=== PATIENT | female | born 1940 | race African-American/Black ===

== ENCOUNTER 2017-06-21 17:42 | Inpatient (IN) | payer MEDICAID, MEDICARE ==
--- NOTE | 2017-06-21 18:04 | ED Physician Chart ---
ED Chief Complaint/HPI - Patient Information Date Seen:: 06/21/17 Time Seen:: 17:50 Chief Complaint:: Leg pain History of Present Illness:: pt reported developed LE pain; L>R x 2 dayas; no report of trauma, ALOC, LOC, AMS, H/aS, neck pain, C/P, SOB, Abd. Pain, A/N/V/D/C, fever, chills, or urinary s/s Allergies:: Allergies Allergy/AdvReac Type Severity Reaction Status Date / Time No Known Allergies Allergy Verified 06/21/17 17:43 Historian:: Patient, EMS Review:: Nurse's Note Reviewed, Old Chart Reviewed, EMS run form Reviewed <Jareth Tee - Last Filed: 06/21/17 17:58> - Patient Information Allergies:: Allergies Allergy/AdvReac Type Severity Reaction Status Date / Time No Known Allergies Allergy Verified 06/21/17 17:43 Vitals:: Vital Signs - 8 hr 06/21/17 17:53 Temp 99.7 F HR 92 RR 16 BP 163/88 O2 Sat % 97 <Gunnar Barrientos - Last Filed: 06/21/17 19:40> ED Review of Systems - Review of Systems General/Constitutional: No fever, No chills, No weight loss, No weakness, No diaphoresis, No edema, No loss of appetite Skin: No skin lesions, No rash, No bruising Head: No headache, No light-headedness Eyes: No loss of vision, No pain, No diplopia ENT: No earache, No nasal drainage, No sore throat, No tinnitus Neck: No neck pain, No swelling, No thyromegaly, No stiffness, No mass noted Cardio Vascular: No chest pain, No palpitations, No PND, No orthopnea, No edema Pulmonary: No SOB, No cough, No sputum, No wheezing GI: No nausea, No vomiting, No diarrhea, No pain, No melena, No hematochezia, No constipation, No hematemesis G/U: No dysuria, No frequency, No hematuria, No nacturia Data Processing Supervisor: No vaginal discharge, No abnormal vaginal bleed, No contraction Musculoskeletal: No bone or joint pain, No back pain, No muscle pain Endocrine: No polyuria, No polydipsia Psychiatric: Prior psych history, No depression, No anxiety, No suicidal ideation, No homicidal ideation, Auditory hallucination, No visual hallucination Hematopoietic: No bruising, No lymphadenopathy Allergic/Immuno: No urticaria, No angioedema Neurological: No syncope, No focal symptoms, No weakness, No paresthesia, No headache, No seizure, No dizziness, No confusion, No vertigo <Jareth Tee - Last Filed: 06/21/17 17:58> ED Past Medical History - Past Medical History Obtainable: Yes Past Medical History: DM, Renal stone, Other (Anemia) Family History: Diabetes Melitus, HTN Social History: Non Smoker, No Alcohol, No Drug Use, Single, Care Facility Surgical History: None Psychiatricy History: Schizophrenia Medication: Reviewed <EstellekatjauvaldoJareth - Last Filed: 06/21/17 17:58> Family Medical History - Family Member Mother History Unknown: Yes <IlianaGunnar - Last Filed: 06/21/17 19:40> ED Physical Exam - Physical Examination General/Constitutional: Awake, Well-developed, well-nourished, Alert, No distress, GCS 15, Non-toxic appearing, Ambulatory Head: Atraumatic Eyes: Lids, conjuctiva normal, PERRL, EOMI Skin: Nl inspection, No rash, No skin lesions, No ecchymosis, Well hydrated, No lymphadenopathy ENMT: External ears, nose nl, TM canals nl, Nasal exam nl, Lips, teeth, gums nl , Oropharynx nl, Tonsils nl Neck: Nontender, Full ROM w/o pain, No JVD, No nuchal rigidity, No bruit, No mass, No stridor Respiratory: Nl effort/Exclusion, Clear to Auscultation, No Wheeze/Rhonchi/Rales Cardio Vascular: RRR, No murmur, gallop, rubs, NL S1 S2, Carotid/Femoral/Distal pulses equal bilaterally GI: No tenderness/rebounding/guarding, No organomegaly, No hernia, Normal BS's, Nondistended, No mass/bruits, No McBurney tenderness : No CVA tenderness Extremities: No tenderness or effusion, Full ROM, normal strength in all extremities, No edema, Normal digits & nails Neuro/Psych: DTR's symmetric, Normal sensory exam, Normal motor strength, Judgement/insight normal, Mood normal, Normal gait, No focal deficits Other Neuro/Psych comments:: Disoriented and Confused Misc: Normal back, No paraspinal tenderness <Jareth Tee - Last Filed: 06/21/17 17:58> ED Labs/Radiology/EKG Results - Lab Results Results: Laboratory Tests 06/21/17 06/21/17 06/21/17 18:20 18:20 18:20 WBC 7.9 RBC 2.80 L Hgb 7.5 L* Hct 23.4 L MCV 83.6 MCH 26.7 L MCHC Differential 31.9 RDW 13.4 Plt Count 430 H MPV 7.1 Neutrophils % 59.2 Lymphocytes % 32.4 Monocytes % 5.8 Eosinophils % 2.0 Basophils % 0.6 PT 9.9 INR 0.95 Sodium 137 Potassium 3.5 Chloride 100 Carbon Dioxide 30.8 Anion Gap 9.7 BUN 24 Creatinine 1.3 H Est GFR ( Amer) TNP Est GFR (Non-Af Amer) TNP BUN/Creatinine Ratio 18.5 Glucose 186 H Calcium 8.7 Total Bilirubin 0.2 L AST 10 L ALT 6 L Alkaline Phosphatase 64 Creatine Kinase 39 Troponin I B-Natriuretic Peptide Total Protein 6.6 Albumin 2.6 L Globulin 4.0 Albumin/Globulin Ratio 0.7 L Triglycerides 104 Cholesterol 129 LDL Cholesterol Direct 65 L HDL Cholesterol 43 06/21/17 06/21/17 18:20 18:20 WBC RBC Hgb Hct MCV MCH MCHC Differential RDW Plt Count MPV Neutrophils % Lymphocytes % Monocytes % Eosinophils % Basophils % PT INR Sodium Potassium Chloride Carbon Dioxide Anion Gap BUN Creatinine Est GFR ( Amer) Est GFR (Non-Af Amer) BUN/Creatinine Ratio Glucose Calcium Total Bilirubin AST ALT Alkaline Phosphatase Creatine Kinase Troponin I 0.01 B-Natriuretic Peptide 122.0 H Total Protein Albumin Globulin Albumin/Globulin Ratio Triglycerides Cholesterol LDL Cholesterol Direct HDL Cholesterol <Gunnar Barrientos - Last Filed: 06/21/17 19:40> ED Septic Shock - . Is Septic Shock (SBP<90, OR Lactate>4 mmol\L) present?: No <Jareth Tee - Last Filed: 06/21/17 17:58> - <6hrs of presentation: Vital Signs: Vital Signs - 8 hr 06/21/17 17:53 Temp 99.7 F HR 92 RR 16 BP 163/88 O2 Sat % 97 <Gunnar Barrientos - Last Filed: 06/21/17 19:40> ED Reassessment (Disposition) - Reassessment Reassessment Condition:: Unchanged - Diagnosis Diagnosis:: Left lower extremity DVT Severe Anemia CHF Hypertension - Patient Disposition Discharge/Transfer:: Acute Care w/in this hosp Admitting Medical Physician:: Jose Tobias <Gunnar Barrientos - Last Filed: 06/21/17 19:40>
[2017-06-21 18:29] LABS: % BASOPHILS 0.6 % (0.0-2.0); % LYMPHOCYTES 32.4 % (20.0-50.0); % MONOCYTES 5.8 % (2.0-10.0); % NEUTROPHILS 59.2 % (40.0-80.0); EOSINOPHILE ABSOLUTE 0.2 Th/cmm (0.1-0.4); HEMATOCRIT 23.4 % (41.0-60); LYMPHOCYTE ABSOLUTE 2.6 Th/cmm (1.5-3.0); MEAN CELL VOLUME 83.6 fl (81-100); MEAN CORPUSCULAR HEMOGLOBIN 26.7 pg (27.0-31.0); MEAN CORPUSCULAR HGB CONC 31.9 pg (28.0-36.0); MEAN PLATELET VOLUME 7.1 fl; MONOCYTE ABSOLUTE 0.5 Th/cmm (0.3-1.0); NEUTROPHILE ABSOLUTE 4.6 Th/cmm (1.8-8.0); PLATELET COUNT 430 Th/cmm (150-400); RED CELL DISTRIBUTION WIDTH 13.4 % (11.5-20.0); WHITE BLOOD COUNT 7.9 Th/cmm (4.8-10.8)
[2017-06-21 18:40] LABS: INR 0.95 (0.5-1.4); PROTHROMBIN TIME (TEST) 9.9 SECONDS (9.5-11.5)
[2017-06-21 18:44] LABS: ALB/GLOB RATIO 0.7 (1.0-1.8); ALBUMIN 2.6 gm/dL (3.7-5.3); ALKALINE PHOSPHATASE 64 U/L (34-104); ANION GAP 9.7 (7.0-16.0); BILIRUBIN,TOTAL 0.2 mg/dL (0.3-1.0); BUN - UREA NITROGEN 24 mg/dL (7-25); CALCIUM SERUM 8.7 mg/dL (8.6-10.3); CARBON DIOXIDE 30.8 mEq/L (21.0-31.0); CHLORIDE 100 mEq/L (98-107); CHOLESTEROL 129 mg/dL (<200); CREATININE - SERUM 1.3 mg/dL (0.6-1.2); CREATININE KINASE 39 U/L (30-223); GLUCOSE 186 mg/dL (70-105); HDL -HIGH DENSITY LIPOPROTEIN 43 mg/dL (23-92); POTASSIUM SERUM 3.5 mEq/L (3.5-5.1); SGOT 10 U/L (13-39); SGPT/ALT 6 U/L (7-52); SODIUM SERUM 137 mEq/L (136-145); TOTAL PROTEIN,SERUM 6.6 gm/dL (6.0-8.3); TRIGLYCERIDES 104 mg/dL (<150)
[2017-06-21 18:52] LABS: HEMOGLOBIN 7.5 gm/dL (12-16)
[2017-06-21] MEDS ORDERED: Ipratropium Neb 0.5 mg/2.5 mL UD IH PRN (19:41)
[2017-06-21] MEDS ORDERED: Morphine Sulfate 2 mg/mL 1mL Syr IVP PRN (19:41)
[2017-06-21] MEDS ORDERED: Maalox 30 mL Cup PO PRN (19:41)
[2017-06-21] MEDS ORDERED: guaiFENesin 200 MG/10 ML UDC PO PRN (19:41)
[2017-06-21] MEDS ORDERED: Albuterol Nebulizer 2.5mg/3mL HHN ONE (20:13)
[2017-06-21] MEDS ORDERED: Ipratropium Neb 0.5 mg/2.5 mL UD HHN ONE (20:14)
[2017-06-21] MEDS ORDERED: [UNRECOGNIZED DRUG - OTHER] PO SCH (21:00)
[2017-06-21] MEDS ORDERED: NUTRITIONAL SUPPLEMENT PO SCH (21:00)
[2017-06-21] MEDS: Enoxaparin 30 mg/0.3 mL 0.3mL Syr SUBQ SCH ×2 (21:11→22:00)
[2017-06-21] MEDS: D5-0.9%NS 1,000 ML IV SCH (21:13)
[2017-06-22 05:35] LABS: % BASOPHILS 0.4 % (0.0-2.0); % EOSINOPHILS 1.3 % (0.0-5.0); % LYMPHOCYTES 38.1 % (20.0-50.0); % MONOCYTES 5.3 % (2.0-10.0); % NEUTROPHILS 54.9 % (40.0-80.0); EOSINOPHILE ABSOLUTE 0.1 Th/cmm (0.1-0.4); LYMPHOCYTE ABSOLUTE 2.8 Th/cmm (1.5-3.0); MEAN CELL VOLUME 82.9 fl (81-100); MEAN CORPUSCULAR HEMOGLOBIN 26.6 pg (27.0-31.0); MEAN CORPUSCULAR HGB CONC 32.1 pg (28.0-36.0); MEAN PLATELET VOLUME 6.7 fl; MONOCYTE ABSOLUTE 0.4 Th/cmm (0.3-1.0); PLATELET COUNT 416 Th/cmm (150-400); RED BLOOD COUNT 2.66 Mil/cmm (3.80-5.20); RED CELL DISTRIBUTION WIDTH 13.5 % (11.5-20.0); WHITE BLOOD COUNT 7.3 Th/cmm (4.8-10.8)
[2017-06-22 05:41] LABS: HEMOGLOBIN 7.1 gm/dL (12-16)
--- NOTE | 2017-06-22 08:14 | Diagnostic Imaging Report ---
Chest x-ray single view History: Chest pain Comparison: None The heart size is normal. No focal pulmonary parenchymal processes. No hilar or mediastinal abnormalities. Ill-defined 2 cm density right apex might be an artifact. Clinical correlation and follow-up exam might be helpful. Impression: No acute abnormalities, COPD changes bilaterally.
--- NOTE | 2017-06-22 08:25 | Diagnostic Imaging Report ---
Exam: Ultrasound examination lower extremities HISTORY: Leg pain. Findings: Real-time ultrasound examination of the deep venous circulation lower extremities bilaterally was performed in multiple planes utilizing color Doppler technique. The study demonstrates normal compressibility and augmentation of deep venous system of right lower extremity. The left lower extremity demonstrates deep venous thrombosis from the proximal left superficial femoral vein through the popliteal vein. Multiple lymph nodes are noted in the groin area bilaterally. IMPRESSION: 1. Normal examination right lower extremity, no evidence of deep thrombosis 2. Diffuse thrombosis of left lower extremity extending from the left superficial femoral vein into the left popliteal vein with no visualization and compressibility of the posterior tibial vein. 3. Patient has had previous history of the deep venous thrombosis left lower extremity. 4. Bilateral inguinal lymph nodes.
[2017-06-22] MEDS ORDERED: POTASSIUM CHLORIDE PO SCH (09:00)
[2017-06-22] MEDS ORDERED: PROSTAT SUGAR FREE PO SCH (09:00)
[2017-06-22] MEDS: Potassium Chloride 20 mEq ER Tab PO SCH (10:11)
--- NOTE | 2017-06-22 12:34 | Consultation ---
DATE OF CONSULTATION: 06/22/2017 HEMATOLOGY-ONCOLOGY CONSULTATION REFERRED BY: Jose Tobias DO REASON FOR CONSULTATION: Deep vein thrombosis and anemia. HISTORY OF PRESENT ILLNESS: The patient is a 76-year-old female, who is a resident in a nursing facility. She was transferred for evaluation because of anemia and a new finding of venous thrombosis. PAST MEDICAL HISTORY: Chronic kidney disease, malnutrition, anemia, schizophrenia, and history of thrombosis in the lower extremities. MEDICATIONS PRIOR TO ADMISSION: Haldol, Norvasc, Remeron, clonidine, Naprosyn. FAMILY HISTORY: Noncontributory. SOCIAL HISTORY: [facility] resident. PHYSICAL EXAMINATION: GENERAL: The patient is awake, noncommunicative. VITAL SIGNS: Afebrile, blood pressure 160/80. HEENT: Atraumatic. No bleeding from any site. NECK: No lymphadenopathy. CHEST: Equal air entry. ABDOMEN: Soft. EXTREMITIES: No edema. LABORATORY DATA: PT and PTT normal. D-dimer elevated. Hemoglobin 7.1, platelets 416, white count 7.3, MCV 82. Creatinine 1.3. Liver functions normal. ASSESSMENT: Venous duplex confirmed the presence of the thrombosis in the left superficial femoral vein and popliteal vein. The patient will be continued on heparin infusion because of the chronic kidney disease and workup for anemia is underway. Stool occult blood, iron studies, B12, and folate level were ordered. The patient will also be seen by GI for endoscopy. The patient was on nonsteroidal prior to admission and that will increase risk for bleeding; however, her medications prior to admission did not include any anticoagulation. Thank you, Dr. Tobias for the opportunity to participate in the care of this interesting case. JOB# [id number]
[2017-06-22] MEDS: Heparin 25,000 Units In D5W 25,000 UNITS/250 ML BAG IV PRN ×2 (12:38→15:12)
[2017-06-22] MEDS: D5-0.9%NS 1,000 ML IV SCH (12:52)
--- NOTE | 2017-06-22 13:24 | Internal Medicine Prog Note ---
Internal Medicine Subjective - Subjective Service Date: 06/22/17 ([facility] [id number]) Internal Medicine Objective - Results Result Diagrams: 06/22/17 05:20 06/21/17 18:20 Recent Labs: Laboratory Last Values WBC 7.3 Th/cmm (4.8-10.8) 06/22/17 05:20 RBC 2.66 Mil/cmm (3.80-5.20) L 06/22/17 05:20 Hgb 7.1 gm/dL (12-16) L* 06/22/17 05:20 Hct 22.0 % (41.0-60) L 06/22/17 05:20 MCV 82.9 fl (81-100) 06/22/17 05:20 MCH 26.6 pg (27.0-31.0) L 06/22/17 05:20 MCHC Differential 32.1 pg (28.0-36.0) 06/22/17 05:20 RDW 13.5 % (11.5-20.0) 06/22/17 05:20 Plt Count 416 Th/cmm (150-400) H 06/22/17 05:20 MPV 6.7 fl 06/22/17 05:20 Neutrophils % 54.9 % (40.0-80.0) 06/22/17 05:20 Lymphocytes % 38.1 % (20.0-50.0) 06/22/17 05:20 Monocytes % 5.3 % (2.0-10.0) 06/22/17 05:20 Eosinophils % 1.3 % (0.0-5.0) 06/22/17 05:20 Basophils % 0.4 % (0.0-2.0) 06/22/17 05:20 PT 9.9 SECONDS (9.5-11.5) 06/21/17 18:20 INR 0.95 (0.5-1.4) 06/21/17 18:20 D-Dimer 3600 ng/mL (100-400) H 06/21/17 18:20 Sodium 137 mEq/L (136-145) 06/21/17 18:20 Potassium 3.5 mEq/L (3.5-5.1) 06/21/17 18:20 Chloride 100 mEq/L (98-107) 06/21/17 18:20 Carbon Dioxide 30.8 mEq/L (21.0-31.0) 06/21/17 18:20 Anion Gap 9.7 (7.0-16.0) 06/21/17 18:20 BUN 24 mg/dL (7-25) 06/21/17 18:20 Creatinine 1.3 mg/dL (0.6-1.2) H 06/21/17 18:20 Est GFR ( Amer) TNP 06/21/17 18:20 Est GFR (Non-Af Amer) TNP 06/21/17 18:20 BUN/Creatinine Ratio 18.5 06/21/17 18:20 Glucose 186 mg/dL (70-105) H 06/21/17 18:20 Calcium 8.7 mg/dL (8.6-10.3) 06/21/17 18:20 Total Bilirubin 0.2 mg/dL (0.3-1.0) L 06/21/17 18:20 AST 10 U/L (13-39) L 06/21/17 18:20 ALT 6 U/L (7-52) L 06/21/17 18:20 Alkaline Phosphatase 64 U/L (34-104) 06/21/17 18:20 Ammonia 36 umol/L (16-53) 06/22/17 05:20 Creatine Kinase 39 U/L (30-223) 06/21/17 18:20 Troponin I 0.01 ng/mL (0.01-0.05) 06/21/17 18:20 B-Natriuretic Peptide 122.0 pg/mL (5.0-100.0) H 06/21/17 18:20 Total Protein 6.6 gm/dL (6.0-8.3) 06/21/17 18:20 Albumin 2.6 gm/dL (3.7-5.3) L 06/21/17 18:20 Globulin 4.0 gm/dL 06/21/17 18:20 Albumin/Globulin Ratio 0.7 (1.0-1.8) L 06/21/17 18:20 Triglycerides 104 mg/dL (<150) 06/21/17 18:20 Cholesterol 129 mg/dL (<200) 06/21/17 18:20 LDL Cholesterol Direct 65 mg/dL (75-193) L 06/21/17 18:20 HDL Cholesterol 43 mg/dL (23-92) 06/21/17 18:20 - Physical Exam Vitals and I&O: Vital Signs Temp 97.0 F 06/22/17 11:55 Pulse 78 06/22/17 11:55 Resp 18 06/22/17 11:55 BP 165/78 06/22/17 11:55 Pulse Ox 99 06/22/17 11:55 Intake & Output 06/21/17 06/22/17 06/22/17 18:59 06:59 18:59 Intake Total 120 1000 Balance 120 1000 Weight (lbs) 86 lb Intake: Intake, IV Amount 1000 D5-0.9%Ns 1,000 ml @ 80 1000 mls/hr IV .[id number] [facility] Rx #:[id number] Oral 120 Other: # Voids 2 # Bowel Movements 0 Stool Characteristics Soft Formed Brown Active Medications: Current Medications Acetaminophen (Tylenol) 650 mg PO Q4H PRN PRN Reason: Pain Or Fever above 101 Stop: 08/20/17 19:40 Al Hydrox/Mg Hydrox/Simethicone (Maalox) 30 ml PO Q6H PRN PRN Reason: Dyspepsia Stop: 08/20/17 19:40 Albuterol Sulfate (Albuterol 2.5mg/3ml Neb Ud) 2.5 mg HHN Q2HRT PRN PRN Reason: Shortness of Breath or Wheeze Stop: 08/20/17 19:40 Amlodipine Besylate (Norvasc) 5 mg PO DAILY [facility] Stop: 08/21/17 08:59 Last Admin: 06/22/17 10:10 Dose: 5 mg Bisacodyl (Dulcolax 5 Mg Ec Tab) 10 mg PO X1 ONE Stop: 06/22/17 16:01 Guaifenesin (Robitussin) 200 mg PO Q4HR PRN PRN Reason: Cough or Congestion Stop: 08/20/17 19:40 Haloperidol Decanoate (Haldol Dec) 25 mg IM QMONTH [facility] Stop: 09/17/17 08:59 Dextrose/Sodium Chloride (D5-0.9%Ns) 1,000 mls @ 80 mls/hr IV .[id number] [facility] Stop: 08/20/17 19:44 Last Admin: 06/22/17 12:52 Dose: 80 mls/hr Heparin Sodium/Dextrose (Heparin Drip) 25,000 units in 250 mls @ 0 mls/hr IV TITR PRN; Protocol; Titrate PRN Reason: PROTOCOL Stop: 08/21/17 04:00 Last Admin: 06/22/17 12:38 Dose: 5 mls/hr Ipratropium [place] (Atrovent Neb 0.5mg/2.5ml) 0.5 mg IH Q2HRT PRN PRN Reason: Shortness of Breath or Wheeze Stop: 08/20/17 19:40 Mirtazapine (Remeron) 15 mg PO HS ED PRN Reason: Protocol Stop: 08/20/17 20:59 Last Admin: 06/21/17 21:59 Dose: 15 mg Miscellaneous (Heparin Drip Per Pharmacy) 1 ea MC PRN ED PRN Reason: Protocol Stop: 08/21/17 08:44 Morphine Sulfate (Morphine) 2 mg IVP Q4H PRN PRN Reason: Pain (Severe) Stop: 08/20/17 19:40 Naproxen (Naprosyn) 500 mg PO Q6H PRN PRN Reason: Pain (Mild) Stop: 08/20/17 19:39 Nitroglycerin (Nitrostat) 0.4 mg SL Q5MIN PRN PRN Reason: Chest Pain Stop: 08/20/17 19:40 Ondansetron HCl (Zofran) 4 mg IV Q8H PRN PRN Reason: Nausea / Vomiting Stop: 08/20/17 19:40 Potassium Chloride (Klor-Con) 20 meq PO DAILY [facility] Stop: 08/21/17 08:59 Last Admin: 06/22/17 10:11 Dose: 20 meq
--- NOTE | 2017-06-22 13:50 | History & Physical ---
ADMIT DATE: 06/22/2017 This is a History and Physical covering for Dr. Jose Tobias. CHIEF COMPLAINT: Leg pain. HISTORY OF PRESENT ILLNESS: This is a 76-year-old -[place] female who is well known to me. The patient is a fdc resident of [facility]. Three days ago, the patient's bilateral lower extremity was noted by nursing staff to be tender and redness. The patient also complained of bilateral calf pain. For this reason, a stat bilateral lower extremity ultrasound was ordered. The patient's ultrasound came back positive for obstructing DVT yesterday. For this reason, the patient is now admitted here to the Med/Surg unit. PAST MEDICAL HISTORY: Type 2 diabetes, anemia, renal stones. PAST SURGICAL HISTORY: None. ALLERGIES: No drug allergies. SOCIAL HISTORY: The patient is a fdc resident, requiring 24-hour nursing care. MEDICATIONS: Please see medication reconciliation. REVIEW OF SYSTEMS: GENERAL: Denies any fevers, any chills. CARDIOVASCULAR: Denies chest pain. RESPIRATORY: Denies shortness of breath. GASTROINTESTINAL: Denies nausea, vomiting, or abdominal pain. GENITOURINARY: Denies increased frequency or dysuria. NEUROLOGIC: No headaches, seizures, or syncope. All other systems are reviewed and are negative. PHYSICAL EXAMINATION: GENERAL: This is an elderly female. Awake and alert with some confusion. No apparent distress. VITAL SIGNS: Temperature 97.0, heart rate 78, blood pressure 165/78, respiration 18, O2 99%. HEENT: Head; normocephalic, atraumatic. NECK: Supple. No mass. LUNGS: Clear bilaterally. HEART: Regular rate and rhythm. ABDOMEN: Soft, nontender. DIAGNOSTICS: The patient had a lower extremity ultrasound done here at the hospital and the impression is normal examination of right lower extremity, no evidence of DVT. Deep venous thrombosis on the left lower extremity extending from the left superficial femoral vein into the left popliteal vein with no visualization, possibility of the posterior tibial vein. The patient has a history of previous DVT on the left lower extremity, bilateral inguinal lymph nodes. LABORATORY DATA: WBC 7.3, H and H 7.1, 22.0, platelet of 416. D-dimer of 3600. Sodium 137, potassium 3.5, chloride 100, BUN 24, creatinine 1.3. BNP of 122. ASSESSMENT: Deep venous thrombosis, severe anemia, schizophrenia, type 2 diabetes, hypertension, psychosis, and hypokalemia. PLAN: The patient to be admitted to the Med/Surg unit. We will get a fax machine repairer on the case as well as GI. We will have the patient on heparin as per protocol. We will monitor the patient's H and H. We will continue to follow this patient. JOB# [id number]
[2017-06-22 16:32] LABS: % BASOPHILS 0.6 % (0.0-2.0); % EOSINOPHILS 1.9 % (0.0-5.0); % LYMPHOCYTES 33.5 % (20.0-50.0); % MONOCYTES 6.3 % (2.0-10.0); % NEUTROPHILS 57.7 % (40.0-80.0); EOSINOPHILE ABSOLUTE 0.1 Th/cmm (0.1-0.4); HEMATOCRIT 23.7 % (41.0-60); LYMPHOCYTE ABSOLUTE 2.3 Th/cmm (1.5-3.0); MEAN CELL VOLUME 83.7 fl (81-100); MEAN CORPUSCULAR HEMOGLOBIN 26.8 pg (27.0-31.0); MONOCYTE ABSOLUTE 0.4 Th/cmm (0.3-1.0); NEUTROPHILE ABSOLUTE 4.2 Th/cmm (1.8-8.0); PLATELET COUNT 416 Th/cmm (150-400); RED BLOOD COUNT 2.83 Mil/cmm (3.80-5.20); RED CELL DISTRIBUTION WIDTH 13.5 % (11.5-20.0)
[2017-06-22 17:10] LABS: HEMOGLOBIN 7.6 gm/dL (12-16)
[2017-06-22] MEDS: INSULIN ASPART, RECOMBINANT 100 UNITS/ML SUBQ SCH ×2 (18:06→21:23)
[2017-06-22 21:22] LABS: A1C % 11.7 % (4.0-6.0)
--- NOTE | 2017-06-23 02:23 | Consultation ---
DATE OF CONSULTATION: 06/22/2017 INPATIENT GASTROINTESTINAL CONSULTATION CONSULTING PHYSICIAN: Dr. Tobias. REASON FOR CONSULTATION: Anemia. HISTORY OF PRESENT ILLNESS: The patient is a 76-year-old female, who is a permanent resident of a nursing facility with past medical history significant for dementia, type 2 diabetes, kidney stones and schizophrenia, who is brought into the hospital complaining of leg pain and was found to have DVT. The patient noted that she has been having left greater than right pain for 2 days, although at the time of this interview, she is not that interactive and thus most of the history is obtained from the chart and from the nursing staff. Workup in the Emergency Room did reveal a DVT in the left leg and thus she has been started on Lovenox. Additionally, the Emergency Room workup revealed hemoglobin of 7.1 and thus GI is asked for evaluation of anemia. It is unclear whether the patient has ever had endoscopic procedures before; she is unable to answer this question. PAST MEDICAL HISTORY: Schizophrenia, diabetes, kidney stones, and dementia. PAST SURGICAL HISTORY: Not obtainable. FAMILY HISTORY: Noncontributory. SOCIAL HISTORY: There is no documented history of drug use or alcoholism. REVIEW OF SYSTEMS: Not possible given the patient's reduced mental status. CURRENT MEDICATIONS: Tylenol as needed, Maalox as needed, albuterol, amlodipine, Dulcolax, Robitussin, haloperidol, ipratropium, Remeron, morphine as needed, naproxen as needed, nitroglycerin as needed. PHYSICAL EXAMINATION: VITAL SIGNS: Blood pressure is 178/97, pulse of 67 beats per minute, temperature 97.0, respiratory rate of 18, and oxygen saturation 98%. GENERAL: The patient is lying on her side in bed at 30 degrees. She is alert and oriented x 1-2, no apparent distress. HEAD, EARS, EYES, NOSE AND THROAT: Normocephalic and atraumatic appearing head. There is no scleral icterus. Pupils are equal and reactive to light. Extraocular muscles are intact. Moist mucous membranes. The patient's hair is disheveled. NECK: Supple, no JVD, no thyromegaly, and no lymphadenopathy. CHEST: Clear to auscultation. CARDIOVASCULAR: S1 and S2 is present. Regular rate and rhythm. ABDOMEN: Soft, thin, nontender, no guarding, no rebound, no distention. EXTREMITIES: Thin appearing, frail. Pulses are not palpable. No pitting edema. SKIN: No obvious jaundice. LABORATORY DATA AND DIAGNOSTIC STUDIES: White blood cell count is 7.3, hemoglobin 7.1, platelet count 416. INR 0.9. D-dimer 3600. Sodium 137, BUN 24, creatinine 1.3. AST 10, ALT 6. Troponin is negative. Albumin 2.6. Iron studies have been ordered, but are not yet returned. Lower extremity ultrasound was performed and shows a diffuse thrombosis of the left lower extremity extending from the left superficial femoral vein to left popliteal vein and inguinal lymph nodes. IMPRESSION: This is a 76-year-old female with history of schizophrenia, dementia, type 2 diabetes, kidney stones and possibly congestive heart failure, who is admitted to the hospital with left leg pain and found to have continuation of deep venous thrombosis. 1. Lower extremity deep venous thrombosis. 2. Anemia. 3. Schizophrenia with dementia. DISCUSSION: The patient's hemoglobin is rather low at 7.1 and it is unclear whether she has had this worked before for GI blood losses. Differential would include colon cancer, diverticular bleeding, stomach cancer, peptic ulcer disease. Given the severity of the hemoglobin level, it is not unreasonable to pursue endoscopic examination, especially as she has never had this done before. At this time, if the patient or the patient's family or conservator is able to consent for these exams, we can do these tomorrow. In that case, I would recommend switching the Lovenox to heparin drip so that they can be shut off 2 hours prior to the procedure and then restarted afterwards. RECOMMENDATIONS: 1. We will try to obtain consent for EGD and colonoscopy or any history of previous endoscopic examinations. 2. If colonoscopy will be going forward, recommend changing Lovenox to heparin drip and shutting this off at 04:00 a.m. tomorrow morning. 3. Bowel preparation tonight with GoLYTELY and tap water enemas in the morning. 4. Here repeat CBC later today and transfuse to hemoglobin above 7. 5. Management of the patient's deep venous thrombosis otherwise as per primary. Further recommendations to follow endoscopy. Thank you for allowing me to participate in this patient's care. Please call with any further questions. JOB# [id number]
[2017-06-23] MEDS: D5-0.9%NS 1,000 ML IV SCH ×2 (02:33→11:48)
[2017-06-23] MEDS: INSULIN ASPART, RECOMBINANT 100 UNITS/ML SUBQ SCH ×4 (06:32→20:55)
[2017-06-23 07:47] LABS: % BASOPHILS 0.4 % (0.0-2.0); % EOSINOPHILS 1.8 % (0.0-5.0); % LYMPHOCYTES 36.1 % (20.0-50.0); % MONOCYTES 5.5 % (2.0-10.0); % NEUTROPHILS 56.2 % (40.0-80.0); EOSINOPHILE ABSOLUTE 0.1 Th/cmm (0.1-0.4); HEMATOCRIT 24.1 % (41.0-60); LYMPHOCYTE ABSOLUTE 2.3 Th/cmm (1.5-3.0); MEAN CELL VOLUME 82.2 fl (81-100); MEAN CORPUSCULAR HEMOGLOBIN 26.7 pg (27.0-31.0); MEAN CORPUSCULAR HGB CONC 32.5 pg (28.0-36.0); MEAN PLATELET VOLUME 7.1 fl; MONOCYTE ABSOLUTE 0.3 Th/cmm (0.3-1.0); NEUTROPHILE ABSOLUTE 3.6 Th/cmm (1.8-8.0); PLATELET COUNT 413 Th/cmm (150-400); RED BLOOD COUNT 2.93 Mil/cmm (3.80-5.20); RED CELL DISTRIBUTION WIDTH 13.5 % (11.5-20.0); WHITE BLOOD COUNT 6.3 Th/cmm (4.8-10.8)
[2017-06-23 07:58] LABS: PROTHROMBIN TIME (TEST) 10.4 SECONDS (9.5-11.5)
[2017-06-23 08:03] LABS: HEMOGLOBIN 7.8 gm/dL (12-16)
[2017-06-23 08:14] LABS: IRON LC 19 ug/dL (27-139); TIBC (LC) 176 ug/dL (250-450); UIBC 157 ug/dL (118-369)
[2017-06-23 08:18] LABS: ANION GAP 10.4 (7.0-16.0); BUN - UREA NITROGEN 17 mg/dL (7-25); CALCIUM SERUM 8.4 mg/dL (8.6-10.3); CARBON DIOXIDE 29.7 mEq/L (21.0-31.0); CHLORIDE 102 mEq/L (98-107); CREATININE - SERUM 1.1 mg/dL (0.6-1.2); GLUCOSE 177 mg/dL (70-105); POTASSIUM SERUM 3.1 mEq/L (3.5-5.1); SODIUM SERUM 139 mEq/L (136-145)
--- NOTE | 2017-06-23 10:18 | Operative Report ---
DATE OF SURGERY: 06/23/2017 INPATIENT EGD COLONOSCOPY REPORT ENDOSCOPIST: Clifton Russell M.D. PREOPERATIVE DIAGNOSIS: Iron deficiency anemia. POSTOPERATIVE DIAGNOSES: Hiatal hernia and colon polyps and cecal and ascending colon mass. PRESENT ILLNESS: The patient is a 76-year-old female with schizophrenia, encephalopathy, who has newly found anemia that is not explained with obvious sources thus GI is asked for evaluation. CONSENT: Informed consent was obtained from the patient's conservator. The risks and benefits of this procedure were discussed and included but not limited to infection, bleeding, perforation, need for surgery, cardiopulmonary complications, missed pathology and . The patient's conservator indicated that they understood these risks and wished to go forward with the procedure and the patient signed the consent form. ANESTHESIA: This procedure was performed under general anesthesia with the care of anesthesiologist. PROCEDURE IN DETAIL: After initiation of general anesthesia, the patient was placed in left lateral decubitus position and a mouthpiece inserted and secured. Gastroscope was then introduced into the mouth and guided under direct visualization into the esophagus, stomach and duodenum. The scope was then slowly withdrawn making to examine the entire mucosa carefully. Retroflexion was performed in the stomach. Scope was straightened and withdrawn from the body. The patient was repositioned into the colonoscopy position. A well-lubricated colonoscope was introduced in the anus after rectal exam. Scope was then advanced under direct visualization to the level of cecum, which was confirmed by the presence of the appendiceal orifice and IC valve. The scope was then slowly and carefully withdrawn making sure to examine all the available mucosa in a systematic fashion. Retroflexion was performed in the rectum prior to scope straightening and withdrawal from the body. There was no obvious complication at the end of procedure. FINDINGS: EGD portion: Esophagus: The endogastric folds and Z line were located at 37 cm from the incisors and the diaphragmatic pinch was located at 39 cm from the incisors indicating a 2 cm hiatal hernia. There was no esophagitis or mass lesion in the esophagus otherwise. Stomach: The stomach was endoscopically normal. There was no ulceration, mass lesion noted. Excisional biopsies were taken from the antrum to evaluate for H. pylori and CARMEN testing. Duodenum: The duodenal bulb and second portion appeared endoscopically normal. Colonoscopy portion: The [place] bowel prep score was 3 and all segments of the colon. Within the cecum, there was a large 3-4 cm polypoid lesion. Endoscopically, this lesion had the appearance of a possible tubulovillous adenoma versus early colon cancer. There was a broad base to this lesion. Initially, a submucosal lift was attempted to evaluate whether this was going to be endoscopically resectable. However, after the lift the polyp appeared to have two broad of the base and pros too high of a perforation risk for endoscopic mucosal resection, especially given the location and thin walled cecum and limited backup with surgical options and blood products here at this hospital. Thus, biopsies were taken to evaluate for cancer or tubulovillous adenoma. Additionally, in the ascending colon, another 2 cm longitudinal lesion was found with the endoscopic appearance again a possible tubulovillous adenoma versus early cancer. This area was biopsied separately. Only one other small polyp was found in the sigmoid colon measuring 4 mm in size and was removed completely with excisional biopsy technique. There was mild diverticulosis in the sigmoid colon that was nonbleeding. On retroflex view, there were moderately sized internal hemorrhoids. IMPRESSION: 1. Hiatal hernia. 2. Large cecal polyp versus mass. 3. Large ascending colon polyp versus mass. 4. Small sigmoid polyp. 5. Diverticulosis. 6. Internal hemorrhoids. DISCUSSION: We will wait for the biopsy results from the 2 lesions in the cecum and ascending colon. It is my opinion that even if these pathology results come back as tubulovillous adenoma, the patient will likely most benefit from surgical excision of the right colon with a hemicolectomy. These lesions are going to be difficult to resect endoscopically, especially the cecum lesion and she would need many further colonoscopies to check on the area as well. We will consult surgeon to see if the patient is a candidate for right hemicolectomy. RECOMMENDATIONS: 1. We will follow up biopsies and speak with surgery about right hemicolectomy as stated above. 2. Follow up the stomach biopsies. Treat H. pylori if found. 3. The patient's anemia can certainly be from these two large colon lesions. She will need these were removed. I will continue to follow the patient. Thank you for allowing me to participate in her care. Please call me with any further questions. JOB# [id number]
--- NOTE | 2017-06-23 10:18 | General Progress Note ---
Subjective - Review of Systems Service Date: 06/23/17 Objective - Results Result Diagrams: 06/23/17 07:18 06/23/17 07:18 Recent Labs: Laboratory Last Values WBC 6.3 Th/cmm (4.8-10.8) 06/23/17 07:18 RBC 2.93 Mil/cmm (3.80-5.20) L 06/23/17 07:18 Hgb 7.8 gm/dL (12-16) L* 06/23/17 07:18 Hct 24.1 % (41.0-60) L 06/23/17 07:18 MCV 82.2 fl (81-100) 06/23/17 07:18 MCH 26.7 pg (27.0-31.0) L 06/23/17 07:18 MCHC Differential 32.5 pg (28.0-36.0) 06/23/17 07:18 RDW 13.5 % (11.5-20.0) 06/23/17 07:18 Plt Count 413 Th/cmm (150-400) H 06/23/17 07:18 MPV 7.1 fl 06/23/17 07:18 Neutrophils % 56.2 % (40.0-80.0) 06/23/17 07:18 Lymphocytes % 36.1 % (20.0-50.0) 06/23/17 07:18 Monocytes % 5.5 % (2.0-10.0) 06/23/17 07:18 Eosinophils % 1.8 % (0.0-5.0) 06/23/17 07:18 Basophils % 0.4 % (0.0-2.0) 06/23/17 07:18 PT 10.4 SECONDS (9.5-11.5) 06/23/17 07:18 INR 1.00 (0.5-1.4) 06/23/17 07:18 PTT (Actin FS) 28.3 SECONDS (26.0-38.0) 06/22/17 16:26 D-Dimer 3600 ng/mL (100-400) H 06/21/17 18:20 Sodium 139 mEq/L (136-145) 06/23/17 07:18 Potassium 3.1 mEq/L (3.5-5.1) L 06/23/17 07:18 Chloride 102 mEq/L (98-107) 06/23/17 07:18 Carbon Dioxide 29.7 mEq/L (21.0-31.0) 06/23/17 07:18 Anion Gap 10.4 (7.0-16.0) 06/23/17 07:18 BUN 17 mg/dL (7-25) 06/23/17 07:18 Creatinine 1.1 mg/dL (0.6-1.2) 06/23/17 07:18 Est GFR ( Amer) TNP 06/23/17 07:18 Est GFR (Non-Af Amer) TNP 06/23/17 07:18 BUN/Creatinine Ratio 15.5 06/23/17 07:18 Glucose 177 mg/dL (70-105) H 06/23/17 07:18 POC Glucose 383 MG/DL (70 - 105) H 06/22/17 16:14 Hemoglobin A1c % 11.7 % (4.0-6.0) H 06/21/17 18:20 Calcium 8.4 mg/dL (8.6-10.3) L 06/23/17 07:18 Iron 19 ug/dL (27-139) L 06/22/17 05:20 TIBC 176 ug/dL (250-450) L 06/22/17 05:20 Iron Saturation 11 % (15-55) L 06/22/17 05:20 Unsaturated IBC 157 ug/dL (118-369) 06/22/17 05:20 Total Bilirubin 0.2 mg/dL (0.3-1.0) L 06/21/17 18:20 AST 10 U/L (13-39) L 06/21/17 18:20 ALT 6 U/L (7-52) L 06/21/17 18:20 Alkaline Phosphatase 64 U/L (34-104) 06/21/17 18:20 Ammonia 36 umol/L (16-53) 06/22/17 05:20 Creatine Kinase 39 U/L (30-223) 06/21/17 18:20 Troponin I 0.01 ng/mL (0.01-0.05) 06/21/17 18:20 B-Natriuretic Peptide 122.0 pg/mL (5.0-100.0) H 06/21/17 18:20 Total Protein 6.6 gm/dL (6.0-8.3) 06/21/17 18:20 Albumin 2.6 gm/dL (3.7-5.3) L 06/21/17 18:20 Globulin 4.0 gm/dL 06/21/17 18:20 Albumin/Globulin Ratio 0.7 (1.0-1.8) L 06/21/17 18:20 Triglycerides 104 mg/dL (<150) 06/21/17 18:20 Cholesterol 129 mg/dL (<200) 06/21/17 18:20 LDL Cholesterol Direct 65 mg/dL (75-193) L 06/21/17 18:20 HDL Cholesterol 43 mg/dL (23-92) 06/21/17 18:20 - Physical Exam Vitals and I&O: Vital Signs Temp 97.5 F 06/23/17 08:00 Pulse 59 06/23/17 08:00 Resp 18 06/23/17 08:00 BP 196/95 06/23/17 08:00 Pulse Ox 97 06/23/17 08:00 Intake & Output 06/22/17 06/23/17 06/23/17 18:59 06:59 18:59 Intake Total 1000 5538 Balance 1000 5538 Weight (lbs) 48.897 kg Intake: Intake, IV Amount 1000 1538 D5-0.9%Ns 1,000 ml @ 80 1000 1288 mls/hr IV .[id number] ED Rx #:[id number] Heparin 25,000 Units In 250 D5W 25,000 units In 250 ml @ Titrate IV TITR PRN Rx#:[id number] Oral 4000 Other: # Voids 2 # Bowel Movements 3 Stool Characteristics Soft Formed Brown Active Medications: Current Medications Acetaminophen (Tylenol) 650 mg PO Q4H PRN PRN Reason: Pain Or Fever above 101 Stop: 08/20/17 19:40 Al Hydrox/Mg Hydrox/Simethicone (Maalox) 30 ml PO Q6H PRN PRN Reason: Dyspepsia Stop: 08/20/17 19:40 Albuterol Sulfate (Albuterol 2.5mg/3ml Neb Ud) 2.5 mg HHN Q2HRT PRN PRN Reason: Shortness of Breath or Wheeze Stop: 08/20/17 19:40 Amlodipine Besylate (Norvasc) 5 mg PO DAILY [facility] Stop: 08/21/17 08:59 Last Admin: 06/22/17 10:10 Dose: 5 mg Enalaprilat (Vasotec) 1.25 mg IVP Q6HR PRN PRN Reason: Sbp Above 170MMHG Stop: 08/22/17 11:59 Guaifenesin (Robitussin) 200 mg PO Q4HR PRN PRN Reason: Cough or Congestion Stop: 08/20/17 19:40 Haloperidol Decanoate (Haldol Dec) 25 mg IM QMONTH [facility] Stop: 08/22/17 08:59 Dextrose/Sodium Chloride (D5-0.9%Ns) 1,000 mls @ 80 mls/hr IV .[id number] [facility] Stop: 08/20/17 19:44 Last Infusion: 06/23/17 06:09 Dose: 80 mls/hr Heparin Sodium/Dextrose (Heparin Drip) 25,000 units in 250 mls @ 0 mls/hr IV TITR PRN; Protocol; Titrate PRN Reason: PROTOCOL Stop: 08/21/17 04:00 Last Titration: 06/23/17 06:09 Dose: Infused Insulin Aspart (Novolog) 0 units SUBQ ACHS ED PRN Reason: Protocol Stop: 08/21/17 16:29 Last Admin: 06/23/17 06:32 Dose: Not Given Ipratropium [place] (Atrovent Neb 0.5mg/2.5ml) 0.5 mg IH Q2HRT PRN PRN Reason: Shortness of Breath or Wheeze Stop: 08/20/17 19:40 Mirtazapine (Remeron) 15 mg PO HS ED PRN Reason: Protocol Stop: 08/20/17 20:59 Last Admin: 06/22/17 21:28 Dose: 15 mg Miscellaneous (Heparin Drip Per Pharmacy) 1 ea MC PRN ED PRN Reason: Protocol Stop: 08/21/17 08:44 Morphine Sulfate (Morphine) 2 mg IVP Q4H PRN PRN Reason: Pain (Severe) Stop: 08/20/17 19:40 Naproxen (Naprosyn) 500 mg PO Q6H PRN PRN Reason: Pain (Mild) Stop: 08/20/17 19:39 Nitroglycerin (Nitrostat) 0.4 mg SL Q5MIN PRN PRN Reason: Chest Pain Stop: 08/20/17 19:40 Ondansetron HCl (Zofran) 4 mg IV Q8H PRN PRN Reason: Nausea / Vomiting Stop: 08/20/17 19:40 Potassium Chloride (Klor-Con) 20 meq PO DAILY ED Stop: 08/21/17 08:59 Last Admin: 06/22/17 10:11 Dose: 20 meq Assessment/Plan - Problem List Patient Problems: All Active Problems Altered mental status (Acute) R41.82 Failure to thrive (Acute) [id number] Schizophrenia (Acute) F20.9 Anxiety (Chronic) F41.9 Chronic Kidney Disease (Chronic) Hypertension (Chronic) - Assessment Assessment: * DVT * ANEMIA * CKD s/p EGD and colonoscopy follow anemia luz continue heparin, start coumadin Nutritional Asmnt/Malnutr-PDOC - Dietary Evaluation Malnutrition Findings (Please click <Entered> for more info): Nutritional Asmnt/Malnutrition Start: 06/22/17 18: 04 Text: Status: Complete Freq: Document 06/22/17 18:04 HEN (Rec: 06/22/17 18:15 HEN [email or web address]) Nutritional Asmnt/Malnutrition Patient General Information Nutritional Screening High Risk Consult Diagnosis left lower extremity DVT, severe anemia, CHF, HTN Pertinent Medical Hx/Surgical Hx DM, anemia, renal stones, schizophrenia Subjective Information Pt seen lying in bed, confused at time of visit. Spoke with LULÚ Seay, RN reported pt ate well, consumed 60% of breakfast this morning. Per notes, pt has EGD and colonoscopy scheduled tommorrow. Current Diet Order/ Nutrition Support pureed Pertinent Medications D5-0.9ns, novolog, remeron, kcl Pertinent Labs 06/21 Na 137, K 3.5, Cl 100, BUN 24, Cr 1.3, Glucose 186, AST 10, ALT 6, Alb 2.6 06/22 POC 383 Nutritional Hx/Data Height 1.52 m Height (Calculated Centimeters) 152.4 Current Weight (lbs) 39.009 kg Weight (Calculated Kilograms) 39.0 Weight (Calculated Grams) 19984.9 [place] Body Weight 100 % [place] Body Weight 86 Body Mass Index (BMI) 16.7 Weight Status Underweight GI Symptoms GI Symptoms None Last BM none Difficult in: None Skin Integrity/Comment: intact Current %PO Fair (50-74%) Estimated Nutritional Goals Calories/Kcals/Kg 25-30 based on IBW 45kg Kcals Calculated 6914-0165 Protein g/k-1.2 Protein Calculated 45-54 Fluid: ml 1125-1350ml (1ml/kcal) Nutritional Problem 1. Problem Problem altered nutrition related lab values Etiology hx of DM Signs/Symptoms: Glucose 186, POC 383 Malnutrition Alert Protein-Calorie Malnutrition N/A Is there a minimum of two criteria No selected? Query Text:Check all the applicable criteria. A minimum of two criteria are recommended for diagnosis of either severe or non-severe malnutrition. Intervention/Recommendation Comments 1. Recommend CCHO, low sodium diet for optimal glycemic and BP control. RN notified. 2. Monitor PO intake, wt, labs and skin integrity 3. F/U as high risk in 2-3 days, 06/24-06/25 Expected Outcomes/Goals Expected Outcomes/Goals 1. PO intake to meet at least 75% of nutritional needs. 2. Wt stability, skin to remain intact, labs to improve
[2017-06-23] MEDS: Potassium Chloride 20 mEq ER Tab PO SCH (10:23)
[2017-06-23] MEDS: Heparin 25,000 Units In D5W 25,000 UNITS/250 ML BAG IV PRN ×2 (12:31→20:43)
[2017-06-23 14:03] LABS: INR 1.12 (0.5-1.4); PROTHROMBIN TIME (TEST) 11.8 SECONDS (9.5-11.5)
--- NOTE | 2017-06-23 15:07 | Internal Medicine Prog Note ---
Internal Medicine Subjective - Subjective Service Date: 06/23/17 Patient seen and examined:: with staff Patient is:: awake, verbal Per staff patient has:: tolerating meds Internal Medicine Objective - Results Result Diagrams: 06/23/17 07:18 06/23/17 07:18 Recent Labs: Laboratory Last Values WBC 6.3 Th/cmm (4.8-10.8) 06/23/17 07:18 RBC 2.93 Mil/cmm (3.80-5.20) L 06/23/17 07:18 Hgb 7.8 gm/dL (12-16) L* 06/23/17 07:18 Hct 24.1 % (41.0-60) L 06/23/17 07:18 MCV 82.2 fl (81-100) 06/23/17 07:18 MCH 26.7 pg (27.0-31.0) L 06/23/17 07:18 MCHC Differential 32.5 pg (28.0-36.0) 06/23/17 07:18 RDW 13.5 % (11.5-20.0) 06/23/17 07:18 Plt Count 413 Th/cmm (150-400) H 06/23/17 07:18 MPV 7.1 fl 06/23/17 07:18 Neutrophils % 56.2 % (40.0-80.0) 06/23/17 07:18 Lymphocytes % 36.1 % (20.0-50.0) 06/23/17 07:18 Monocytes % 5.5 % (2.0-10.0) 06/23/17 07:18 Eosinophils % 1.8 % (0.0-5.0) 06/23/17 07:18 Basophils % 0.4 % (0.0-2.0) 06/23/17 07:18 PT 11.8 SECONDS (9.5-11.5) H 06/23/17 13:30 INR 1.12 (0.5-1.4) 06/23/17 13:30 PTT (Actin FS) 26.1 SECONDS (26.0-38.0) 06/23/17 13:30 D-Dimer 3600 ng/mL (100-400) H 06/21/17 18:20 Sodium 139 mEq/L (136-145) 06/23/17 07:18 Potassium 3.1 mEq/L (3.5-5.1) L 06/23/17 07:18 Chloride 102 mEq/L (98-107) 06/23/17 07:18 Carbon Dioxide 29.7 mEq/L (21.0-31.0) 06/23/17 07:18 Anion Gap 10.4 (7.0-16.0) 06/23/17 07:18 BUN 17 mg/dL (7-25) 06/23/17 07:18 Creatinine 1.1 mg/dL (0.6-1.2) 06/23/17 07:18 Est GFR ( Amer) TNP 06/23/17 07:18 Est GFR (Non-Af Amer) TNP 06/23/17 07:18 BUN/Creatinine Ratio 15.5 06/23/17 07:18 Glucose 177 mg/dL (70-105) H 06/23/17 07:18 POC Glucose 383 MG/DL (70 - 105) H 06/22/17 16:14 Hemoglobin A1c % 11.7 % (4.0-6.0) H 06/21/17 18:20 Calcium 8.4 mg/dL (8.6-10.3) L 06/23/17 07:18 Iron 19 ug/dL (27-139) L 06/22/17 05:20 TIBC 176 ug/dL (250-450) L 06/22/17 05:20 Iron Saturation 11 % (15-55) L 06/22/17 05:20 Unsaturated IBC 157 ug/dL (118-369) 06/22/17 05:20 Total Bilirubin 0.2 mg/dL (0.3-1.0) L 06/21/17 18:20 AST 10 U/L (13-39) L 06/21/17 18:20 ALT 6 U/L (7-52) L 06/21/17 18:20 Alkaline Phosphatase 64 U/L (34-104) 06/21/17 18:20 Ammonia 36 umol/L (16-53) 06/22/17 05:20 Creatine Kinase 39 U/L (30-223) 06/21/17 18:20 Troponin I 0.01 ng/mL (0.01-0.05) 06/21/17 18:20 B-Natriuretic Peptide 122.0 pg/mL (5.0-100.0) H 06/21/17 18:20 Total Protein 6.6 gm/dL (6.0-8.3) 06/21/17 18:20 Albumin 2.6 gm/dL (3.7-5.3) L 06/21/17 18:20 Globulin 4.0 gm/dL 06/21/17 18:20 Albumin/Globulin Ratio 0.7 (1.0-1.8) L 06/21/17 18:20 Triglycerides 104 mg/dL (<150) 06/21/17 18:20 Cholesterol 129 mg/dL (<200) 06/21/17 18:20 LDL Cholesterol Direct 65 mg/dL (75-193) L 06/21/17 18:20 HDL Cholesterol 43 mg/dL (23-92) 06/21/17 18:20 Blood Type O POSITIVE 06/23/17 09:50 Antibody Screen NEGATIVE 06/23/17 09:50 - Physical Exam Vitals and I&O: Vital Signs Temp 97.2 F 06/23/17 11:55 Pulse 56 06/23/17 11:55 Resp 18 06/23/17 11:55 BP 170/95 06/23/17 11:55 Pulse Ox 100 06/23/17 11:55 Intake & Output 06/22/17 06/23/17 06/23/17 18:59 06:59 18:59 Intake Total 1000 5538 454.917 Balance 1000 5538 454.917 Weight (lbs) 107 lb 12.8 oz Intake: Intake, IV Amount 1000 1538 454.917 D5-0.9%Ns 1,000 ml @ 80 1000 1288 452 mls/hr IV .[id number] ED Rx #:[id number] Heparin 25,000 Units In 250 2.917 D5W 25,000 units In 250 ml @ Titrate IV TITR PRN Rx#:[id number] Oral 4000 Other: # Voids 2 # Bowel Movements 3 Stool Characteristics Soft Formed Brown Active Medications: Current Medications Acetaminophen (Tylenol) 650 mg PO Q4H PRN PRN Reason: Pain Or Fever above 101 Stop: 08/20/17 19:40 Al Hydrox/Mg Hydrox/Simethicone (Maalox) 30 ml PO Q6H PRN PRN Reason: Dyspepsia Stop: 08/20/17 19:40 Albuterol Sulfate (Albuterol 2.5mg/3ml Neb Ud) 2.5 mg HHN Q2HRT PRN PRN Reason: Shortness of Breath or Wheeze Stop: 08/20/17 19:40 Amlodipine Besylate (Norvasc) 5 mg PO DAILY ED Stop: 08/21/17 08:59 Last Admin: 06/23/17 10:23 Dose: 5 mg Enalaprilat (Vasotec) 1.25 mg IVP Q6HR PRN PRN Reason: Sbp Above 170MMHG Stop: 08/22/17 11:59 Last Admin: 06/23/17 10:24 Dose: 1.25 mg Guaifenesin (Robitussin) 200 mg PO Q4HR PRN PRN Reason: Cough or Congestion Stop: 08/20/17 19:40 Haloperidol Decanoate (Haldol Dec) 25 mg IM QMONTH ED Stop: 08/22/17 08:59 Dextrose/Sodium Chloride (D5-0.9%Ns) 1,000 mls @ 80 mls/hr IV .[id number] ED Stop: 08/20/17 19:44 Last Admin: 06/23/17 11:48 Dose: 80 mls/hr Heparin Sodium/Dextrose (Heparin Drip) 25,000 units in 250 mls @ 0 mls/hr IV TITR PRN; Protocol; Titrate PRN Reason: PROTOCOL Stop: 08/21/17 04:00 Last Titration: 06/23/17 14:37 Dose: 500 units/hr, 5 mls/hr Insulin Aspart (Novolog) 0 units SUBQ ACHS ED PRN Reason: Protocol Stop: 08/21/17 16:29 Last Admin: 06/23/17 11:46 Dose: 2 units Ipratropium [place] (Atrovent Neb 0.5mg/2.5ml) 0.5 mg IH Q2HRT PRN PRN Reason: Shortness of Breath or Wheeze Stop: 08/20/17 19:40 Mirtazapine (Remeron) 15 mg PO HS ED PRN Reason: Protocol Stop: 08/20/17 20:59 Last Admin: 06/22/17 21:28 Dose: 15 mg Miscellaneous (Heparin Drip Per Pharmacy) 1 ea PRN ED PRN Reason: Protocol Stop: 08/21/17 08:44 Morphine Sulfate (Morphine) 2 mg IVP Q4H PRN PRN Reason: Pain (Severe) Stop: 08/20/17 19:40 Naproxen (Naprosyn) 500 mg PO Q6H PRN PRN Reason: Pain (Mild) Stop: 08/20/17 19:39 Nitroglycerin (Nitrostat) 0.4 mg SL Q5MIN PRN PRN Reason: Chest Pain Stop: 08/20/17 19:40 Ondansetron HCl (Zofran) 4 mg IV Q8H PRN PRN Reason: Nausea / Vomiting Stop: 08/20/17 19:40 Potassium Chloride (Klor-Con) 20 meq PO DAILY ED Stop: 08/21/17 08:59 Last Admin: 06/23/17 10:23 Dose: 20 meq Warfarin Sodium (Coumadin Per Pharmacy) 1 [facility] PRN PRN; Protocol PRN Reason: RX MONITORING Stop: 08/22/17 10:18 General: weak, alert HEENT: NC/AT, PERRLA Neck: Supple Lungs: CTAB Cardiovascular: RRR, Normal S1, Normal S2, without murmur Abdomen: soft, non-tender, non-distended, positive bowel sound Extremities: excoriation Neurological: alert Internal Medicine Assmt/Plan - Assessment Assessment: acute dvt severe anemia dm2 schizophrenia htn psychosis hypokalemia - Plan Plan: monitor electrolytes continue lovenox follow up labs in am will follow [facility] adf consultant reccomendations Nutritional Asmnt/Malnutr-PDOC - Dietary Evaluation Malnutrition Findings (Please click <Entered> for more info): Nutritional Asmnt/Malnutrition Start: 06/22/17 18: 04 Text: Status: Complete Freq: Document 06/22/17 18:04 LCHENG (Rec: 06/22/17 18:15 [email or web address]) Nutritional Asmnt/Malnutrition Patient General Information Nutritional Screening High Risk Consult Diagnosis left lower extremity DVT, severe anemia, CHF, HTN Pertinent Medical Hx/Surgical Hx DM, anemia, renal stones, schizophrenia Subjective Information Pt seen lying in bed, confused at time of visit. Spoke with LULÚ Seay, RN reported pt ate well, consumed 60% of breakfast this morning. Per notes, pt has EGD and colonoscopy scheduled tommorrow. Current Diet Order/ Nutrition Support pureed Pertinent Medications D5-0.9ns, novolog, remeron, kcl Pertinent Labs 06/21 Na 137, K 3.5, Cl 100, BUN 24, Cr 1.3, Glucose 186, AST 10, ALT 6, Alb 2.6 06/22 POC 383 Nutritional Hx/Data Height 5 ft Height (Calculated Centimeters) 152.4 Current Weight (lbs) 86 lb Weight (Calculated Kilograms) 39.0 Weight (Calculated Grams) 63336.9 [place] Body Weight 100 % [place] Body Weight 86 Body Mass Index (BMI) 16.7 Weight Status Underweight GI Symptoms GI Symptoms None Last BM none Difficult in: None Skin Integrity/Comment: intact Current %PO Fair (50-74%) Estimated Nutritional Goals Calories/Kcals/Kg 25-30 based on IBW 45kg Kcals Calculated 9418-1011 Protein g/k-1.2 Protein Calculated 45-54 Fluid: ml 1125-1350ml (1ml/kcal) Nutritional Problem 1. Problem Problem altered nutrition related lab values Etiology hx of DM Signs/Symptoms: Glucose 186, POC 383 Malnutrition Alert Protein-Calorie Malnutrition N/A Is there a minimum of two criteria No selected? Query Text:Check all the applicable criteria. A minimum of two criteria are recommended for diagnosis of either severe or non-severe malnutrition. Intervention/Recommendation Comments 1. Recommend CCHO, low sodium diet for optimal glycemic and BP control. RN notified. 2. Monitor PO intake, wt, labs and skin integrity 3. F/U as high risk in 2-3 days, 06/24-06/25 Expected Outcomes/Goals Expected Outcomes/Goals 1. PO intake to meet at least 75% of nutritional needs. 2. Wt stability, skin to remain intact, labs to improve
[2017-06-24] MEDS: Heparin 25,000 Units In D5W 25,000 UNITS/250 ML BAG IV PRN ×2 (02:26→23:54)
[2017-06-24 05:11] LABS: FOLIC ACID 14.7 ng/mL (>3.0)
[2017-06-24] MEDS: INSULIN ASPART, RECOMBINANT 100 UNITS/ML SUBQ SCH ×4 (06:37→21:19)
[2017-06-24] MEDS: D5-0.9%NS 1,000 ML IV SCH ×2 (08:09→22:00)
[2017-06-24] MEDS: Potassium Chloride 20 mEq ER Tab PO SCH (09:10)
[2017-06-24 09:14] LABS: PROTHROMBIN TIME (TEST) 11.1 SECONDS (9.5-11.5)
[2017-06-24 09:15] LABS: INR 1.07 (0.5-1.4)
--- NOTE | 2017-06-24 09:23 | GI Progress Note ---
Subjective - Review of Systems Service Date: 06/24/17 Subjective: No bleeding overnight Objective - Results Result Diagrams: 06/23/17 07:18 06/23/17 07:18 Recent Labs: Laboratory Last Values WBC 6.3 Th/cmm (4.8-10.8) 06/23/17 07:18 RBC 2.93 Mil/cmm (3.80-5.20) L 06/23/17 07:18 Hgb 7.8 gm/dL (12-16) L* 06/23/17 07:18 Hct 24.1 % (41.0-60) L 06/23/17 07:18 MCV 82.2 fl (81-100) 06/23/17 07:18 MCH 26.7 pg (27.0-31.0) L 06/23/17 07:18 MCHC Differential 32.5 pg (28.0-36.0) 06/23/17 07:18 RDW 13.5 % (11.5-20.0) 06/23/17 07:18 Plt Count 413 Th/cmm (150-400) H 06/23/17 07:18 MPV 7.1 fl 06/23/17 07:18 Neutrophils % 56.2 % (40.0-80.0) 06/23/17 07:18 Lymphocytes % 36.1 % (20.0-50.0) 06/23/17 07:18 Monocytes % 5.5 % (2.0-10.0) 06/23/17 07:18 Eosinophils % 1.8 % (0.0-5.0) 06/23/17 07:18 Basophils % 0.4 % (0.0-2.0) 06/23/17 07:18 PT 11.1 SECONDS (9.5-11.5) 06/24/17 07:30 INR 1.07 (0.5-1.4) 06/24/17 07:30 PTT (Actin FS) 48.3 SECONDS (26.0-38.0) H 06/24/17 07:30 D-Dimer 3600 ng/mL (100-400) H 06/21/17 18:20 Sodium 139 mEq/L (136-145) 06/23/17 07:18 Potassium 3.1 mEq/L (3.5-5.1) L 06/23/17 07:18 Chloride 102 mEq/L (98-107) 06/23/17 07:18 Carbon Dioxide 29.7 mEq/L (21.0-31.0) 06/23/17 07:18 Anion Gap 10.4 (7.0-16.0) 06/23/17 07:18 BUN 17 mg/dL (7-25) 06/23/17 07:18 Creatinine 1.1 mg/dL (0.6-1.2) 06/23/17 07:18 Est GFR ( Amer) TNP 06/23/17 07:18 Est GFR (Non-Af Amer) TNP 06/23/17 07:18 BUN/Creatinine Ratio 15.5 06/23/17 07:18 Glucose 177 mg/dL (70-105) H 06/23/17 07:18 POC Glucose 383 MG/DL (70 - 105) H 06/22/17 16:14 Hemoglobin A1c % 11.7 % (4.0-6.0) H 06/21/17 18:20 Calcium 8.4 mg/dL (8.6-10.3) L 06/23/17 07:18 Iron 19 ug/dL (27-139) L 06/22/17 05:20 TIBC 176 ug/dL (250-450) L 06/22/17 05:20 Iron Saturation 11 % (15-55) L 06/22/17 05:20 Unsaturated IBC 157 ug/dL (118-369) 06/22/17 05:20 Ferritin 164 ng/mL (15-150) H 06/22/17 05:20 Total Bilirubin 0.2 mg/dL (0.3-1.0) L 06/21/17 18:20 AST 10 U/L (13-39) L 06/21/17 18:20 ALT 6 U/L (7-52) L 06/21/17 18:20 Alkaline Phosphatase 64 U/L (34-104) 06/21/17 18:20 Ammonia 36 umol/L (16-53) 06/22/17 05:20 Creatine Kinase 39 U/L (30-223) 06/21/17 18:20 Troponin I 0.01 ng/mL (0.01-0.05) 06/21/17 18:20 B-Natriuretic Peptide 122.0 pg/mL (5.0-100.0) H 06/21/17 18:20 Total Protein 6.6 gm/dL (6.0-8.3) 06/21/17 18:20 Albumin 2.6 gm/dL (3.7-5.3) L 06/21/17 18:20 Globulin 4.0 gm/dL 06/21/17 18:20 Albumin/Globulin Ratio 0.7 (1.0-1.8) L 06/21/17 18:20 Triglycerides 104 mg/dL (<150) 06/21/17 18:20 Cholesterol 129 mg/dL (<200) 06/21/17 18:20 LDL Cholesterol Direct 65 mg/dL (75-193) L 06/21/17 18:20 HDL Cholesterol 43 mg/dL (23-92) 06/21/17 18:20 Vitamin B12 621 pg/mL (232-1245) 06/22/17 05:20 Folic Acid 14.7 ng/mL (>3.0) 06/22/17 05:20 Blood Type O POSITIVE 06/23/17 09:50 Antibody Screen NEGATIVE 06/23/17 09:50 - Physical Exam Vitals and I&O: Vital Signs Temp 96.4 F 06/24/17 04:00 Pulse 59 06/24/17 09:11 Resp 18 06/24/17 08:20 BP 180/91 06/24/17 09:11 Pulse Ox 96 06/24/17 08:20 Intake & Output 06/23/17 06/24/17 06/24/17 18:59 06:59 18:59 Intake Total 343.565 6677.8 Balance 351.348 2959.8 Weight (lbs) 49.895 kg Intake: Intake, IV Amount 713.316 6047.8 D5-0.9%Ns 1,000 ml @ 80 452 1000 mls/hr IV .[id number] ED Rx #:[id number] Heparin 25,000 Units In 2.917 64.8 D5W 25,000 units In 250 ml @ Titrate IV TITR PRN Rx#:[id number] Active Medications: Current Medications Acetaminophen (Tylenol) 650 mg PO Q4H PRN PRN Reason: Pain Or Fever above 101 Stop: 08/20/17 19:40 Al Hydrox/Mg Hydrox/Simethicone (Maalox) 30 ml PO Q6H PRN PRN Reason: Dyspepsia Stop: 08/20/17 19:40 Albuterol Sulfate (Albuterol 2.5mg/3ml Neb Ud) 2.5 mg HHN Q2HRT PRN PRN Reason: Shortness of Breath or Wheeze Stop: 08/20/17 19:40 Amlodipine Besylate (Norvasc) 5 mg PO DAILY [facility] Stop: 08/21/17 08:59 Last Admin: 06/24/17 09:10 Dose: 5 mg Enalaprilat (Vasotec) 1.25 mg IVP Q6HR PRN PRN Reason: Sbp Above 170MMHG Stop: 08/22/17 11:59 Last Admin: 06/24/17 09:11 Dose: 1.25 mg Guaifenesin (Robitussin) 200 mg PO Q4HR PRN PRN Reason: Cough or Congestion Stop: 08/20/17 19:40 Haloperidol Decanoate (Haldol Dec) 25 mg IM QMONTH [facility] Stop: 08/23/17 09:59 Last Admin: 06/24/17 09:10 Dose: 25 mg Dextrose/Sodium Chloride (D5-0.9%Ns) 1,000 mls @ 80 mls/hr IV .[id number] [facility] Stop: 08/20/17 19:44 Last Admin: 06/24/17 08:09 Dose: 80 mls/hr Heparin Sodium/Dextrose (Heparin Drip) 25,000 units in 250 mls @ 0 mls/hr IV TITR PRN; Protocol; Titrate PRN Reason: PROTOCOL Stop: 08/21/17 04:00 Last Admin: 06/24/17 02:26 Dose: 700 units/hr, 7 mls/hr Insulin Aspart (Novolog) 0 units SUBQ ACHS ED PRN Reason: Protocol Stop: 08/21/17 16:29 Last Admin: 06/24/17 06:37 Dose: Not Given Ipratropium [place] (Atrovent Neb 0.5mg/2.5ml) 0.5 mg IH Q2HRT PRN PRN Reason: Shortness of Breath or Wheeze Stop: 08/20/17 19:40 Mirtazapine (Remeron) 15 mg PO HS ED PRN Reason: Protocol Stop: 08/20/17 20:59 Last Admin: 06/23/17 20:51 Dose: 15 mg Miscellaneous (Heparin Drip Per Pharmacy) 1 ea [facility] PRN ED PRN Reason: Protocol Stop: 08/21/17 08:44 Morphine Sulfate (Morphine) 2 mg IVP Q4H PRN PRN Reason: Pain (Severe) Stop: 08/20/17 19:40 Naproxen (Naprosyn) 500 mg PO Q6H PRN PRN Reason: Pain (Mild) Stop: 08/20/17 19:39 Nitroglycerin (Nitrostat) 0.4 mg SL Q5MIN PRN PRN Reason: Chest Pain Stop: 08/20/17 19:40 Ondansetron HCl (Zofran) 4 mg IV Q8H PRN PRN Reason: Nausea / Vomiting Stop: 08/20/17 19:40 Potassium Chloride (Klor-Con) 20 meq PO DAILY ED Stop: 08/21/17 08:59 Last Admin: 06/24/17 09:10 Dose: 20 meq Warfarin Sodium (Coumadin Per Pharmacy) 1 [facility] PRN PRN; Protocol PRN Reason: RX MONITORING Stop: 08/22/17 10:18 General: Alert HEENT: Atraumatic Neck: Supple Cardiovascular: Regular rate Abdomen: Bowel sounds, Soft, Other (no guard, no rebound, no distension) Assessment/Plan - Problem List Patient Problems: All Active Problems Altered mental status (Acute) R41.82 Failure to thrive (Acute) [id number] Schizophrenia (Acute) F20.9 Anxiety (Chronic) F41.9 Chronic Kidney Disease (Chronic) Hypertension (Chronic) - Assessment Assessment: # Anemia # Colon mass vs polyp # Diverticulosis EGD on 06/23 showed mild gastritis. Colonoscopy revealed 3-4cm cecal lesion and 2cm ascending colon polyp. Cecal lesion endoscopically looked like villous adenoma, and ascending colon may be adenoma vs villous adenoma. Pathology results are pending. These lesions could very well be contributing to her chronic anemia Plan: - The cecal lesion would be high risk to remove endoscopically given location and size. I would recommend a R hemicolectomy as opposed to endoscopic resection with removal of the ascending colon as well to remove the 2nd lesion. Overall, this has a lower risk profile and is a less challenging procedure than EMR in this location and this size - follow up pathology results - cont iron supplementation - cont diet and advance as per swallow eval recommendations
--- NOTE | 2017-06-24 12:59 | Internal Medicine Prog Note ---
Internal Medicine Subjective - Subjective Service Date: 06/24/17 Patient seen and examined:: with staff Patient is:: awake, verbal Per staff patient has:: tolerating meds Internal Medicine Objective - Results Result Diagrams: 06/23/17 07:18 06/23/17 07:18 Recent Labs: Laboratory Last Values WBC 6.3 Th/cmm (4.8-10.8) 06/23/17 07:18 RBC 2.93 Mil/cmm (3.80-5.20) L 06/23/17 07:18 Hgb 7.8 gm/dL (12-16) L* 06/23/17 07:18 Hct 24.1 % (41.0-60) L 06/23/17 07:18 MCV 82.2 fl (81-100) 06/23/17 07:18 MCH 26.7 pg (27.0-31.0) L 06/23/17:18 MCHC Differential 32.5 pg (28.0-36.0) 06/23/17:18 RDW 13.5 % (11.5-20.0) 06/23/17 07:18 Plt Count 413 Th/cmm (150-400) H 06/23/17 07:18 MPV 7.1 fl 06/23/17 07:18 Neutrophils % 56.2 % (40.0-80.0) 06/23/17 07:18 Lymphocytes % 36.1 % (20.0-50.0) 06/23/17 07:18 Monocytes % 5.5 % (2.0-10.0) 06/23/17 07:18 Eosinophils % 1.8 % (0.0-5.0) 06/23/17 07:18 Basophils % 0.4 % (0.0-2.0) 06/23/17 07:18 PT 11.1 SECONDS (9.5-11.5) 06/24/17 07:30 INR 1.07 (0.5-1.4) 06/24/17 07:30 PTT (Actin FS) 48.3 SECONDS (26.0-38.0) H 06/24/17 07:30 D-Dimer 3600 ng/mL (100-400) H 06/21/17 18:20 Sodium 139 mEq/L (136-145) 06/23/17 07:18 Potassium 3.1 mEq/L (3.5-5.1) L 06/23/17 07:18 Chloride 102 mEq/L (98-107) 06/23/17 07:18 Carbon Dioxide 29.7 mEq/L (21.0-31.0) 06/23/17 07:18 Anion Gap 10.4 (7.0-16.0) 06/23/17 07:18 BUN 17 mg/dL (7-25) 06/23/17 07:18 Creatinine 1.1 mg/dL (0.6-1.2) 06/23/17 07:18 Est GFR ( Amer) TNP 06/23/17 07:18 Est GFR (Non-Af Amer) TNP 06/23/17 07:18 BUN/Creatinine Ratio 15.5 06/23/17 07:18 Glucose 177 mg/dL (70-105) H 06/23/17 07:18 POC Glucose 383 MG/DL (70 - 105) H 06/22/17 16:14 Hemoglobin A1c % 11.7 % (4.0-6.0) H 06/21/17 18:20 Calcium 8.4 mg/dL (8.6-10.3) L 06/23/17 07:18 Iron 19 ug/dL (27-139) L 06/22/17 05:20 TIBC 176 ug/dL (250-450) L 06/22/17 05:20 Iron Saturation 11 % (15-55) L 06/22/17 05:20 Unsaturated IBC 157 ug/dL (118-369) 06/22/17 05:20 Ferritin 164 ng/mL (15-150) H 06/22/17 05:20 Total Bilirubin 0.2 mg/dL (0.3-1.0) L 06/21/17 18:20 AST 10 U/L (13-39) L 06/21/17 18:20 ALT 6 U/L (7-52) L 06/21/17 18:20 Alkaline Phosphatase 64 U/L (34-104) 06/21/17 18:20 Ammonia 36 umol/L (16-53) 06/22/17 05:20 Creatine Kinase 39 U/L (30-223) 06/21/17 18:20 Troponin I 0.01 ng/mL (0.01-0.05) 06/21/17 18:20 B-Natriuretic Peptide 122.0 pg/mL (5.0-100.0) H 06/21/17 18:20 Total Protein 6.6 gm/dL (6.0-8.3) 06/21/17 18:20 Albumin 2.6 gm/dL (3.7-5.3) L 06/21/17 18:20 Globulin 4.0 gm/dL 06/21/17 18:20 Albumin/Globulin Ratio 0.7 (1.0-1.8) L 06/21/17 18:20 Triglycerides 104 mg/dL (<150) 06/21/17 18:20 Cholesterol 129 mg/dL (<200) 06/21/17 18:20 LDL Cholesterol Direct 65 mg/dL (75-193) L 06/21/17 18:20 HDL Cholesterol 43 mg/dL (23-92) 06/21/17 18:20 Vitamin B12 621 pg/mL (232-1245) 06/22/17 05:20 Folic Acid 14.7 ng/mL (>3.0) 06/22/17 05:20 Helicobacter pylori Ab POSITIVE (NEGATIVE) 06/23/17 10:50 Blood Type O POSITIVE 06/23/17 09:50 Antibody Screen NEGATIVE 06/23/17 09:50 - Physical Exam Vitals and I&O: Vital Signs Temp 96.7 F 06/24/17 08:00 Pulse 71 06/24/17 10:11 Resp 18 06/24/17 08:20 BP 144/83 06/24/17 10:11 Pulse Ox 96 06/24/17 08:20 Intake & Output 06/23/17 06/24/17 06/24/17 18:59 06:59 18:59 Intake Total 620.544 5593.8 Balance 166.050 3785.8 Weight (lbs) 110 lb Intake: Intake, IV Amount 573.013 4361.8 D5-0.9%Ns 1,000 ml @ 80 452 1000 mls/hr IV .[id number] ED Rx #:[id number] Heparin 25,000 Units In 2.917 64.8 D5W 25,000 units In 250 ml @ Titrate IV TITR PRN Rx#:[id number] Active Medications: Current Medications Acetaminophen (Tylenol) 650 mg PO Q4H PRN PRN Reason: Pain Or Fever above 101 Stop: 08/20/17 19:40 Al Hydrox/Mg Hydrox/Simethicone (Maalox) 30 ml PO Q6H PRN PRN Reason: Dyspepsia Stop: 08/20/17 19:40 Albuterol Sulfate (Albuterol 2.5mg/3ml Neb Ud) 2.5 mg HHN Q2HRT PRN PRN Reason: Shortness of Breath or Wheeze Stop: 08/20/17 19:40 Amlodipine Besylate (Norvasc) 5 mg PO DAILY [facility] Stop: 08/21/17 08:59 Last Admin: 06/24/17 09:10 Dose: 5 mg Enalaprilat (Vasotec) 1.25 mg IVP Q6HR PRN PRN Reason: Sbp Above 170MMHG Stop: 08/22/17 11:59 Last Admin: 06/24/17 09:11 Dose: 1.25 mg Guaifenesin (Robitussin) 200 mg PO Q4HR PRN PRN Reason: Cough or Congestion Stop: 08/20/17 19:40 Haloperidol Decanoate (Haldol Dec) 25 mg IM QMONTH [facility] Stop: 08/23/17 09:59 Last Admin: 06/24/17 09:10 Dose: 25 mg Dextrose/Sodium Chloride (D5-0.9%Ns) 1,000 mls @ 80 mls/hr IV .[id number] [facility] Stop: 08/20/17 19:44 Last Admin: 06/24/17 08:09 Dose: 80 mls/hr Heparin Sodium/Dextrose (Heparin Drip) 25,000 units in 250 mls @ 0 mls/hr IV TITR PRN; Protocol; Titrate PRN Reason: PROTOCOL Stop: 08/21/17 04:00 Last Admin: 06/24/17 02:26 Dose: 700 units/hr, 7 mls/hr Insulin Aspart (Novolog) 0 units SUBQ ACHS ED PRN Reason: Protocol Stop: 08/21/17 16:29 Last Admin: 06/24/17 11:38 Dose: Not Given Ipratropium [place] (Atrovent Neb 0.5mg/2.5ml) 0.5 mg IH Q2HRT PRN PRN Reason: Shortness of Breath or Wheeze Stop: 08/20/17 19:40 Mirtazapine (Remeron) 15 mg PO HS ED PRN Reason: Protocol Stop: 08/20/17 20:59 Last Admin: 06/23/17 20:51 Dose: 15 mg Miscellaneous (Heparin Drip Per Pharmacy) 1 ea [facility] PRN ED PRN Reason: Protocol Stop: 08/21/17 08:44 Morphine Sulfate (Morphine) 2 mg IVP Q4H PRN PRN Reason: Pain (Severe) Stop: 08/20/17 19:40 Naproxen (Naprosyn) 500 mg PO Q6H PRN PRN Reason: Pain (Mild) Stop: 08/20/17 19:39 Nitroglycerin (Nitrostat) 0.4 mg SL Q5MIN PRN PRN Reason: Chest Pain Stop: 08/20/17 19:40 Ondansetron HCl (Zofran) 4 mg IV Q8H PRN PRN Reason: Nausea / Vomiting Stop: 08/20/17 19:40 Potassium Chloride (Klor-Con) 20 meq PO DAILY ED Stop: 08/21/17 08:59 Last Admin: 06/24/17 09:10 Dose: 20 meq Warfarin Sodium (Coumadin Per Pharmacy) 1 [facility] PRN PRN; Protocol PRN Reason: RX MONITORING Stop: 08/22/17 10:18 Warfarin Sodium (Coumadin) 5 mg PO 1300 ONE Stop: 06/24/17 13:01 General: weak, alert HEENT: NC/AT, PERRLA Neck: Supple Lungs: CTAB Cardiovascular: RRR, Normal S1, Normal S2, without murmur Abdomen: soft, non-tender, non-distended, positive bowel sound Extremities: excoriation Neurological: alert Internal Medicine Assmt/Plan - Assessment Assessment: acute dvt severe anemia dm2 schizophrenia htn psychosis hypokalemia - Plan Plan: monitor electrolytes continue lovenox follow up labs in am will follow technical consultant reccomendations Nutritional Asmnt/Malnutr-PDOC - Dietary Evaluation Malnutrition Findings (Please click <Entered> for more info): Nutritional Asmnt/Malnutrition Start: 06/22/17 18: 04 Text: Status: Complete Freq: Document 06/22/17 18:04 DIANELYSG (Rec: 06/22/17 18:15 LCHENG [email or web address]) Nutritional Asmnt/Malnutrition Patient General Information Nutritional Screening High Risk Consult Diagnosis left lower extremity DVT, severe anemia, CHF, HTN Pertinent Medical Hx/Surgical Hx DM, anemia, renal stones, schizophrenia Subjective Information Pt seen lying in bed, confused at time of visit. Spoke with LULÚ Seay, RN reported pt ate well, consumed 60% of breakfast this morning. Per notes, pt has EGD and colonoscopy scheduled tommorrow. Current Diet Order/ Nutrition Support pureed Pertinent Medications D5-0.9ns, novolog, remeron, kcl Pertinent Labs 06/21 Na 137, K 3.5, Cl 100, BUN 24, Cr 1.3, Glucose 186, AST 10, ALT 6, Alb 2.6 06/22 POC 383 Nutritional Hx/Data Height 5 ft Height (Calculated Centimeters) 152.4 Current Weight (lbs) 86 lb Weight (Calculated Kilograms) 39.0 Weight (Calculated Grams) 90633.9 [place] Body Weight 100 % [place] Body Weight 86 Body Mass Index (BMI) 16.7 Weight Status Underweight GI Symptoms GI Symptoms None Last BM none Difficult in: None Skin Integrity/Comment: intact Current %PO Fair (50-74%) Estimated Nutritional Goals Calories/Kcals/Kg 25-30 based on IBW 45kg Kcals Calculated 9573-0250 Protein g/k-1.2 Protein Calculated 45-54 Fluid: ml 1125-1350ml (1ml/kcal) Nutritional Problem 1. Problem Problem altered nutrition related lab values Etiology hx of DM Signs/Symptoms: Glucose 186, POC 383 Malnutrition Alert Protein-Calorie Malnutrition N/A Is there a minimum of two criteria No selected? Query Text:Check all the applicable criteria. A minimum of two criteria are recommended for diagnosis of either severe or non-severe malnutrition. Intervention/Recommendation Comments 1. Recommend CCHO, low sodium diet for optimal glycemic and BP control. RN notified. 2. Monitor PO intake, wt, labs and skin integrity 3. F/U as high risk in 2-3 days, 06/24-06/25 Expected Outcomes/Goals Expected Outcomes/Goals 1. PO intake to meet at least 75% of nutritional needs. 2. Wt stability, skin to remain intact, labs to improve
--- NOTE | 2017-06-24 13:39 | Pathology Report ---
[id number] Collection date: 06/23/2017 Surgeon: Dr. Daniela Russell Specimen Description: 1. Cecal polyp/mass biopsy. 2. Ascending colon polyp/mass biopsy. 3. Sigmoid polyp biopsy. Gross Description: Part I: Received in formalin are multiple berman soft tissue fragments ranging from 0.1 to 0.2 cm in greatest dimension. Totally submitted in one cassette labeled A. Gross Description: Part II: Received in formalin are multiple berman soft tissue fragments ranging from 0.1 to 0.2 cm in greatest dimension. Totally submitted in one cassette labeled B. Gross Description: Part III: Received in formalin are two berman soft tissue fragments ranging from 0.1 to 0.2 cm in greatest dimension. Totally submitted in one cassette labeled C. Microscopic Description: Part I: The histologic sections show colon mucosa with extensive adenomatous glandular changes consisting of both tubular as well as villous structures, with nuclear enlargement and stratification appreciated. There is moderate dysplasia throughout the specimen with focal areas of severe dysplasia identified, consistent with high grade dysplasia. 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 Microscopic Description: Part II: The histologic sections show colon mucosa with extensive adenomatous glandular changes present consisting of nuclear enlargement and stratification, with villous as well as tubular structures present. There is moderate dysplasia present throughout the specimen with focal areas of severe dysplasia also appreciated, consistent with high grade dysplasia. Diagnosis: Part II: Tubulovillous adenoma with high grade dysplasia (ascending colon polyp). Microscopic Description: Part III: The histologic sections show colon mucosa with adenomatous glandular changes present consisting of nuclear enlargement and stratification, with mostly tubules formed consistent with tubular adenoma. Diagnosis: Part III: Adenomatous polyp consistent with tubular adenoma (sigmoid polyp). COMMENT: Clinical correlation and follow up is recommended in light of the high grade dysplasia seen in part I and part II of the specimen (cecal and ascending colon polyps). There is no evidence of invasive tumor in the biopsies submitted, however, the presence of high grade dysplasia places the patient at increased risk for the subsequent development of invasive tumor. These findings are discussed with Dr. Daniela Russell and Dr. Sugar Tapia on 06/24/2017. [facility]# [id number] [facility]
[2017-06-24 15:03] LABS: % BASOPHILS 0.6 % (0.0-2.0); % EOSINOPHILS 0.7 % (0.0-5.0); % LYMPHOCYTES 24.9 % (20.0-50.0); % MONOCYTES 3.3 % (2.0-10.0); % NEUTROPHILS 70.5 % (40.0-80.0); EOSINOPHILE ABSOLUTE 0.1 Th/cmm (0.1-0.4); LYMPHOCYTE ABSOLUTE 1.9 Th/cmm (1.5-3.0); MEAN CELL VOLUME 83.6 fl (81-100); MEAN CORPUSCULAR HEMOGLOBIN 26.8 pg (27.0-31.0); MEAN CORPUSCULAR HGB CONC 32.1 pg (28.0-36.0); MEAN PLATELET VOLUME 7.1 fl; MONOCYTE ABSOLUTE 0.2 Th/cmm (0.3-1.0); NEUTROPHILE ABSOLUTE 5.3 Th/cmm (1.8-8.0); PLATELET COUNT 445 Th/cmm (150-400); RED BLOOD COUNT 2.86 Mil/cmm (3.80-5.20); RED CELL DISTRIBUTION WIDTH 13.8 % (11.5-20.0); WHITE BLOOD COUNT 7.5 Th/cmm (4.8-10.8)
[2017-06-24 15:14] LABS: INR 1.11 (0.5-1.4); PROTHROMBIN TIME (TEST) 11.6 SECONDS (9.5-11.5)
[2017-06-24 15:32] LABS: HEMOGLOBIN 7.7 gm/dL (12-16)
--- NOTE | 2017-06-24 15:54 | General Progress Note ---
Subjective - Review of Systems Service Date: 06/24/17 Objective - Results Result Diagrams: 06/24/17 14:55 06/23/17 07:18 Recent Labs: Laboratory Last Values WBC 7.5 Th/cmm (4.8-10.8) 06/24/17 14:55 RBC 2.86 Mil/cmm (3.80-5.20) L 06/24/17 14:55 Hgb 7.7 gm/dL (12-16) L* 06/24/17 14:55 Hct 24.0 % (41.0-60) L 06/24/17 14:55 MCV 83.6 fl (81-100) 06/24/17 14:55 MCH 26.8 pg (27.0-31.0) L 06/24/17 14:55 MCHC Differential 32.1 pg (28.0-36.0) 06/24/17 14:55 RDW 13.8 % (11.5-20.0) 06/24/17 14:55 Plt Count 445 Th/cmm (150-400) H 06/24/17 14:55 MPV 7.1 fl 06/24/17 14:55 Neutrophils % 70.5 % (40.0-80.0) 06/24/17 14:55 Lymphocytes % 24.9 % (20.0-50.0) 06/24/17 14:55 Monocytes % 3.3 % (2.0-10.0) 06/24/17 14:55 Eosinophils % 0.7 % (0.0-5.0) 06/24/17 14:55 Basophils % 0.6 % (0.0-2.0) 06/24/17 14:55 PT 11.6 SECONDS (9.5-11.5) H 06/24/17 14:55 INR 1.11 (0.5-1.4) 06/24/17 14:55 PTT (Actin FS) 45.2 SECONDS (26.0-38.0) H 06/24/17 14:55 D-Dimer 3600 ng/mL (100-400) H 06/21/17 18:20 Sodium 139 mEq/L (136-145) 06/23/17 07:18 Potassium 3.1 mEq/L (3.5-5.1) L 06/23/17 07:18 Chloride 102 mEq/L (98-107) 06/23/17 07:18 Carbon Dioxide 29.7 mEq/L (21.0-31.0) 06/23/17 07:18 Anion Gap 10.4 (7.0-16.0) 06/23/17 07:18 BUN 17 mg/dL (7-25) 06/23/17 07:18 Creatinine 1.1 mg/dL (0.6-1.2) 06/23/17 07:18 Est GFR ( Amer) TNP 06/23/17 07:18 Est GFR (Non-Af Amer) TNP 06/23/17 07:18 BUN/Creatinine Ratio 15.5 06/23/17 07:18 Glucose 177 mg/dL (70-105) H 06/23/17 07:18 POC Glucose 383 MG/DL (70 - 105) H 06/22/17 16:14 Hemoglobin A1c % 11.7 % (4.0-6.0) H 06/21/17 18:20 Calcium 8.4 mg/dL (8.6-10.3) L 06/23/17 07:18 Iron 19 ug/dL (27-139) L 06/22/17 05:20 TIBC 176 ug/dL (250-450) L 06/22/17 05:20 Iron Saturation 11 % (15-55) L 06/22/17 05:20 Unsaturated IBC 157 ug/dL (118-369) 06/22/17 05:20 Ferritin 164 ng/mL (15-150) H 06/22/17 05:20 Total Bilirubin 0.2 mg/dL (0.3-1.0) L 06/21/17 18:20 AST 10 U/L (13-39) L 06/21/17 18:20 ALT 6 U/L (7-52) L 06/21/17 18:20 Alkaline Phosphatase 64 U/L (34-104) 06/21/17 18:20 Ammonia 36 umol/L (16-53) 06/22/17 05:20 Creatine Kinase 39 U/L (30-223) 06/21/17 18:20 Troponin I 0.01 ng/mL (0.01-0.05) 06/21/17 18:20 B-Natriuretic Peptide 122.0 pg/mL (5.0-100.0) H 06/21/17 18:20 Total Protein 6.6 gm/dL (6.0-8.3) 06/21/17 18:20 Albumin 2.6 gm/dL (3.7-5.3) L 06/21/17 18:20 Globulin 4.0 gm/dL 06/21/17 18:20 Albumin/Globulin Ratio 0.7 (1.0-1.8) L 06/21/17 18:20 Triglycerides 104 mg/dL (<150) 06/21/17 18:20 Cholesterol 129 mg/dL (<200) 06/21/17 18:20 LDL Cholesterol Direct 65 mg/dL (75-193) L 06/21/17 18:20 HDL Cholesterol 43 mg/dL (23-92) 06/21/17 18:20 Vitamin B12 621 pg/mL (232-1245) 06/22/17 05:20 Folic Acid 14.7 ng/mL (>3.0) 06/22/17 05:20 Helicobacter pylori Ab POSITIVE (NEGATIVE) 06/23/17 10:50 Blood Type O POSITIVE 06/23/17 09:50 Antibody Screen NEGATIVE 06/23/17 09:50 - Physical Exam Vitals and I&O: Vital Signs Temp 96.7 F 06/24/17 08:00 Pulse 76 06/24/17 13:59 Resp 18 06/24/17 08:20 BP 144/85 06/24/17 13:59 Pulse Ox 96 06/24/17 08:20 Intake & Output 06/23/17 06/24/17 06/24/17 18:59 06:59 18:59 Intake Total 890.963 5357.8 Balance 667.305 8989.8 Weight (lbs) 49.895 kg Intake: Intake, IV Amount 696.007 1458.8 D5-0.9%Ns 1,000 ml @ 80 452 1000 mls/hr IV .[id number] ED Rx #:[id number] Heparin 25,000 Units In 2.917 64.8 D5W 25,000 units In 250 ml @ Titrate IV TITR PRN Rx#:[id number] Active Medications: Current Medications Acetaminophen (Tylenol) 650 mg PO Q4H PRN PRN Reason: Pain Or Fever above 101 Stop: 08/20/17 19:40 Al Hydrox/Mg Hydrox/Simethicone (Maalox) 30 ml PO Q6H PRN PRN Reason: Dyspepsia Stop: 08/20/17 19:40 Albuterol Sulfate (Albuterol 2.5mg/3ml Neb Ud) 2.5 mg HHN Q2HRT PRN PRN Reason: Shortness of Breath or Wheeze Stop: 08/20/17 19:40 Amlodipine Besylate (Norvasc) 5 mg PO DAILY [facility] Stop: 08/21/17 08:59 Last Admin: 06/24/17 09:10 Dose: 5 mg Enalaprilat (Vasotec) 1.25 mg IVP Q6HR PRN PRN Reason: Sbp Above 170MMHG Stop: 08/22/17 11:59 Last Admin: 06/24/17 09:11 Dose: 1.25 mg Guaifenesin (Robitussin) 200 mg PO Q4HR PRN PRN Reason: Cough or Congestion Stop: 08/20/17 19:40 Haloperidol Decanoate (Haldol Dec) 25 mg IM QMONTH [facility] Stop: 08/23/17 09:59 Last Admin: 06/24/17 09:10 Dose: 25 mg Dextrose/Sodium Chloride (D5-0.9%Ns) 1,000 mls @ 80 mls/hr IV .[id number] [facility] Stop: 08/20/17 19:44 Last Admin: 06/24/17 08:09 Dose: 80 mls/hr Heparin Sodium/Dextrose (Heparin Drip) 25,000 units in 250 mls @ 0 mls/hr IV TITR PRN; Protocol; Titrate PRN Reason: PROTOCOL Stop: 08/21/17 04:00 Last Admin: 06/24/17 02:26 Dose: 700 units/hr, 7 mls/hr Insulin Aspart (Novolog) 0 units SUBQ ACHS ED PRN Reason: Protocol Stop: 08/21/17 16:29 Last Admin: 06/24/17 11:38 Dose: Not Given Ipratropium [place] (Atrovent Neb 0.5mg/2.5ml) 0.5 mg IH Q2HRT PRN PRN Reason: Shortness of Breath or Wheeze Stop: 08/20/17 19:40 Mirtazapine (Remeron) 15 mg PO HS ED PRN Reason: Protocol Stop: 08/20/17 20:59 Last Admin: 06/23/17 20:51 Dose: 15 mg Miscellaneous (Heparin Drip Per Pharmacy) 1 ea [facility] PRN ED PRN Reason: Protocol Stop: 08/21/17 08:44 Morphine Sulfate (Morphine) 2 mg IVP Q4H PRN PRN Reason: Pain (Severe) Stop: 08/20/17 19:40 Naproxen (Naprosyn) 500 mg PO Q6H PRN PRN Reason: Pain (Mild) Stop: 08/20/17 19:39 Nitroglycerin (Nitrostat) 0.4 mg SL Q5MIN PRN PRN Reason: Chest Pain Stop: 08/20/17 19:40 Ondansetron HCl (Zofran) 4 mg IV Q8H PRN PRN Reason: Nausea / Vomiting Stop: 08/20/17 19:40 Potassium Chloride (Klor-Con) 20 meq PO DAILY ED Stop: 08/21/17 08:59 Last Admin: 06/24/17 09:10 Dose: 20 meq Warfarin Sodium (Coumadin Per Pharmacy) 1 [facility] PRN PRN; Protocol PRN Reason: RX MONITORING Stop: 08/22/17 10:18 General: Alert HEENT: Atraumatic Neck: Supple Cardiovascular: Regular rate Abdomen: Bowel sounds, Soft, Other (no guard, no rebound, no distension) Assessment/Plan - Problem List Patient Problems: All Active Problems Altered mental status (Acute) R41.82 Failure to thrive (Acute) [id number] Schizophrenia (Acute) F20.9 Anxiety (Chronic) F41.9 Chronic Kidney Disease (Chronic) Hypertension (Chronic) - Assessment Assessment: * DVT * ANEMIA * CKD * 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 Agree with right hemicolectomy start iv iron for anemia of ckd continue heparin, start coumadin Nutritional Asmnt/Malnutr-PDOC - Dietary Evaluation Malnutrition Findings (Please click <Entered> for more info): Nutritional Asmnt/Malnutrition Start: 06/22/17 18: 04 Text: Status: Complete Freq: Document 06/22/17 18:04 GRISELDA (Rec: 06/22/17 18:15 [id number]) Nutritional Asmnt/Malnutrition Patient General Information Nutritional Screening High Risk Consult Diagnosis left lower extremity DVT, severe anemia, CHF, HTN Pertinent Medical Hx/Surgical Hx DM, anemia, renal stones, schizophrenia Subjective Information Pt seen lying in bed, confused at time of visit. Spoke with LULÚ Seay, RN reported pt ate well, consumed 60% of breakfast this morning. Per notes, pt has EGD and colonoscopy scheduled tommorrow. Current Diet Order/ Nutrition Support pureed Pertinent Medications D5-0.9ns, novolog, remeron, kcl Pertinent Labs 06/21 Na 137, K 3.5, Cl 100, BUN 24, Cr 1.3, Glucose 186, AST 10, ALT 6, Alb 2.6 06/22 POC 383 Nutritional Hx/Data Height 1.52 m Height (Calculated Centimeters) 152.4 Current Weight (lbs) 39.009 kg Weight (Calculated Kilograms) 39.0 Weight (Calculated Grams) 63628.9 Mode Body Weight 100 % Mode Body Weight 86 Body Mass Index (BMI) 16.7 Weight Status Underweight GI Symptoms GI Symptoms None Last BM none Difficult in: None Skin Integrity/Comment: intact Current %PO Fair (50-74%) Estimated Nutritional Goals Calories/Kcals/Kg 25-30 based on IBW 45kg Kcals Calculated 2071-6002 Protein g/k-1.2 Protein Calculated 45-54 Fluid: ml 1125-1350ml (1ml/kcal) Nutritional Problem 1. Problem Problem altered nutrition related lab values Etiology hx of DM Signs/Symptoms: Glucose 186, POC 383 Malnutrition Alert Protein-Calorie Malnutrition N/A Is there a minimum of two criteria No selected? Query Text:Check all the applicable criteria. A minimum of two criteria are recommended for diagnosis of either severe or non-severe malnutrition. Intervention/Recommendation Comments 1. Recommend CCHO, low sodium diet for optimal glycemic and BP control. RN notified. 2. Monitor PO intake, wt, labs and skin integrity 3. F/U as high risk in 2-3 days, 06/24-06/25 Expected Outcomes/Goals Expected Outcomes/Goals 1. PO intake to meet at least 75% of nutritional needs. 2. Wt stability, skin to remain intact, labs to improve
[2017-06-24] MEDS ORDERED: IRON DEXTRAN 100 MG/2 ML IM SCH (16:00)
[2017-06-24] MEDS: IRON DEXTRAN IV SCH (17:47)
[2017-06-24] MEDS: NS 0.9% IV SCH (17:47)
[2017-06-25 04:12] LABS: % BASOPHILS 0.4 % (0.0-2.0); % EOSINOPHILS 1.2 % (0.0-5.0); % LYMPHOCYTES 31.8 % (20.0-50.0); % MONOCYTES 5.8 % (2.0-10.0); % NEUTROPHILS 60.8 % (40.0-80.0); EOSINOPHILE ABSOLUTE 0.1 Th/cmm (0.1-0.4); HEMATOCRIT 21.7 % (41.0-60); LYMPHOCYTE ABSOLUTE 2.6 Th/cmm (1.5-3.0); MEAN CELL VOLUME 82.4 fl (81-100); MEAN CORPUSCULAR HEMOGLOBIN 27.3 pg (27.0-31.0); MEAN CORPUSCULAR HGB CONC 33.1 pg (28.0-36.0); MONOCYTE ABSOLUTE 0.5 Th/cmm (0.3-1.0); NEUTROPHILE ABSOLUTE 5.1 Th/cmm (1.8-8.0); PLATELET COUNT 455 Th/cmm (150-400); RED BLOOD COUNT 2.63 Mil/cmm (3.80-5.20); RED CELL DISTRIBUTION WIDTH 13.4 % (11.5-20.0); WHITE BLOOD COUNT 8.3 Th/cmm (4.8-10.8)
[2017-06-25 04:17] LABS: HEMOGLOBIN 7.2 gm/dL (12-16)
[2017-06-25 04:27] LABS: ANION GAP 9.7 (7.0-16.0); BUN - UREA NITROGEN 10 mg/dL (7-25); CALCIUM SERUM 8.1 mg/dL (8.6-10.3); CARBON DIOXIDE 27.5 mEq/L (21.0-31.0); CHLORIDE 107 mEq/L (98-107); GLUCOSE 129 mg/dL (70-105); POTASSIUM SERUM 3.2 mEq/L (3.5-5.1); SODIUM SERUM 141 mEq/L (136-145)
[2017-06-25 04:53] LABS: INR 1.11 (0.5-1.4); PROTHROMBIN TIME (TEST) 11.6 SECONDS (9.5-11.5)
[2017-06-25] MEDS: INSULIN ASPART, RECOMBINANT 100 UNITS/ML SUBQ SCH ×4 (07:10→20:51)
--- NOTE | 2017-06-25 08:02 | GI Progress Note ---
Subjective - Review of Systems Service Date: 06/25/17 Subjective: No events overnight, no bleeding Objective - Results Result Diagrams: 06/25/17 04:00 06/25/17 04:00 Recent Labs: Laboratory Last Values WBC 8.3 Th/cmm (4.8-10.8) 06/25/17 04:00 RBC 2.63 Mil/cmm (3.80-5.20) L 06/25/17 04:00 Hgb 7.2 gm/dL (12-16) L* 06/25/17 04:00 Hct 21.7 % (41.0-60) L 06/25/17 04:00 MCV 82.4 fl (81-100) 06/25/17 04:00 MCH 27.3 pg (27.0-31.0) 06/25/17 04:00 MCHC Differential 33.1 pg (28.0-36.0) 06/25/17 04:00 RDW 13.4 % (11.5-20.0) 06/25/17 04:00 Plt Count 455 Th/cmm (150-400) H 06/25/17 04:00 MPV 7.0 fl 06/25/17 04:00 Neutrophils % 60.8 % (40.0-80.0) 06/25/17 04:00 Lymphocytes % 31.8 % (20.0-50.0) 06/25/17 04:00 Monocytes % 5.8 % (2.0-10.0) 06/25/17 04:00 Eosinophils % 1.2 % (0.0-5.0) 06/25/17 04:00 Basophils % 0.4 % (0.0-2.0) 06/25/17 04:00 PT 11.6 SECONDS (9.5-11.5) H 06/25/17 04:00 INR 1.11 (0.5-1.4) 06/25/17 04:00 PTT (Actin FS) 48.3 SECONDS (26.0-38.0) H 06/25/17 04:00 D-Dimer 3600 ng/mL (100-400) H 06/21/17 18:20 Sodium 141 mEq/L (136-145) 06/25/17 04:00 Potassium 3.2 mEq/L (3.5-5.1) L 06/25/17 04:00 Chloride 107 mEq/L (98-107) 06/25/17 04:00 Carbon Dioxide 27.5 mEq/L (21.0-31.0) 06/25/17 04:00 Anion Gap 9.7 (7.0-16.0) 06/25/17 04:00 BUN 10 mg/dL (7-25) 06/25/17 04:00 Creatinine 1.0 mg/dL (0.6-1.2) 06/25/17 04:00 Est GFR ( Amer) TNP 06/25/17 04:00 Est GFR (Non-Af Amer) TNP 06/25/17 04:00 BUN/Creatinine Ratio 10.0 06/25/17 04:00 Glucose 129 mg/dL (70-105) H 06/25/17 04:00 POC Glucose 123 MG/DL (70 - 105) H 06/25/17 05:22 Hemoglobin A1c % 11.7 % (4.0-6.0) H 06/21/17 18:20 Calcium 8.1 mg/dL (8.6-10.3) L 06/25/17 04:00 Iron 19 ug/dL (27-139) L 06/22/17 05:20 TIBC 176 ug/dL (250-450) L 06/22/17 05:20 Iron Saturation 11 % (15-55) L 06/22/17 05:20 Unsaturated IBC 157 ug/dL (118-369) 06/22/17 05:20 Ferritin 164 ng/mL (15-150) H 06/22/17 05:20 Total Bilirubin 0.2 mg/dL (0.3-1.0) L 06/21/17 18:20 AST 10 U/L (13-39) L 06/21/17 18:20 ALT 6 U/L (7-52) L 06/21/17 18:20 Alkaline Phosphatase 64 U/L (34-104) 06/21/17 18:20 Ammonia 36 umol/L (16-53) 06/22/17 05:20 Creatine Kinase 39 U/L (30-223) 06/21/17 18:20 Troponin I 0.01 ng/mL (0.01-0.05) 06/21/17 18:20 B-Natriuretic Peptide 122.0 pg/mL (5.0-100.0) H 06/21/17 18:20 Total Protein 6.6 gm/dL (6.0-8.3) 06/21/17 18:20 Albumin 2.6 gm/dL (3.7-5.3) L 06/21/17 18:20 Globulin 4.0 gm/dL 06/21/17 18:20 Albumin/Globulin Ratio 0.7 (1.0-1.8) L 06/21/17 18:20 Triglycerides 104 mg/dL (<150) 06/21/17 18:20 Cholesterol 129 mg/dL (<200) 06/21/17 18:20 LDL Cholesterol Direct 65 mg/dL (75-193) L 06/21/17 18:20 HDL Cholesterol 43 mg/dL (23-92) 06/21/17 18:20 Vitamin B12 621 pg/mL (232-1245) 06/22/17 05:20 Folic Acid 14.7 ng/mL (>3.0) 06/22/17 05:20 Helicobacter pylori Ab POSITIVE (NEGATIVE) 06/23/17 10:50 Blood Type O POSITIVE 06/23/17 09:50 Antibody Screen NEGATIVE 06/23/17 09:50 - Physical Exam Vitals and I&O: Vital Signs Temp 98 F 06/25/17 04:00 Pulse 67 06/25/17 06:04 Resp 18 06/25/17 04:00 BP 169/89 06/25/17 06:04 Pulse Ox 94 06/25/17 04:00 Intake & Output 06/24/17 06/25/17 06/25/17 18:59 06:59 18:59 Intake Total 200 1150.658 Balance 200 1150.658 Weight (lbs) 53.388 kg 53.252 kg Intake: Intake, IV Amount 1150.658 D5-0.9%Ns 1,000 ml @ 80 1000 mls/hr IV .[id number] ED Rx #:[id number] Heparin 25,000 Units In 150.658 D5W 25,000 units In 250 ml @ Titrate IV TITR PRN Rx#:[id number] Oral 200 Other: # Voids 3 2 # Bowel Movements 1 0 Active Medications: Current Medications Acetaminophen (Tylenol) 650 mg PO Q4H PRN PRN Reason: Pain Or Fever above 101 Stop: 08/20/17 19:40 Al Hydrox/Mg Hydrox/Simethicone (Maalox) 30 ml PO Q6H PRN PRN Reason: Dyspepsia Stop: 08/20/17 19:40 Albuterol Sulfate (Albuterol 2.5mg/3ml Neb Ud) 2.5 mg HHN Q2HRT PRN PRN Reason: Shortness of Breath or Wheeze Stop: 08/20/17 19:40 Amlodipine Besylate (Norvasc) 5 mg PO DAILY [facility] Stop: 08/21/17 08:59 Last Admin: 06/24/17 09:10 Dose: 5 mg Enalaprilat (Vasotec) 1.25 mg IVP Q6HR PRN PRN Reason: Sbp Above 170MMHG Stop: 08/22/17 11:59 Last Admin: 06/25/17 04:19 Dose: 1.25 mg Guaifenesin (Robitussin) 200 mg PO Q4HR PRN PRN Reason: Cough or Congestion Stop: 08/20/17 19:40 Haloperidol Decanoate (Haldol Dec) 25 mg IM QMONTH [facility] Stop: 08/23/17 09:59 Last Admin: 06/24/17 09:10 Dose: 25 mg Dextrose/Sodium Chloride (D5-0.9%Ns) 1,000 mls @ 80 mls/hr IV .[id number] [facility] Stop: 08/20/17 19:44 Last Admin: 06/24/17 22:00 Dose: 80 mls/hr Heparin Sodium/Dextrose (Heparin Drip) 25,000 units in 250 mls @ 0 mls/hr IV TITR PRN; Protocol; Titrate PRN Reason: PROTOCOL Stop: 08/21/17 04:00 Last Admin: 06/24/17 23:54 Dose: 750 units/hr, 7.5 mls/hr Iron Dextran 100 mg/ Sodium (Chloride) 102 mls @ 100 mls/hr IV Q24H [facility] Stop: 07/01/17 18:02 Last Admin: 06/24/17 17:47 Dose: 100 mls/hr Insulin Aspart (Novolog) 0 units SUBQ ACHS ED PRN Reason: Protocol Stop: 08/21/17 16:29 Last Admin: 06/25/17 07:10 Dose: Not Given Ipratropium [place] (Atrovent Neb 0.5mg/2.5ml) 0.5 mg IH Q2HRT PRN PRN Reason: Shortness of Breath or Wheeze Stop: 08/20/17 19:40 Mirtazapine (Remeron) 15 mg PO HS ED PRN Reason: Protocol Stop: 08/20/17 20:59 Last Admin: 06/24/17 21:18 Dose: 15 mg Miscellaneous (Heparin Drip Per Pharmacy) 1 [facility] PRN ED PRN Reason: Protocol Stop: 08/21/17 08:44 Morphine Sulfate (Morphine) 2 mg IVP Q4H PRN PRN Reason: Pain (Severe) Stop: 08/20/17 19:40 Naproxen (Naprosyn) 500 mg PO Q6H PRN PRN Reason: Pain (Mild) Stop: 08/20/17 19:39 Nitroglycerin (Nitrostat) 0.4 mg SL Q5MIN PRN PRN Reason: Chest Pain Stop: 08/20/17 19:40 Ondansetron HCl (Zofran) 4 mg IV Q8H PRN PRN Reason: Nausea / Vomiting Stop: 08/20/17 19:40 Potassium Chloride (Klor-Con) 20 meq PO DAILY ED Stop: 08/21/17 08:59 Last Admin: 06/24/17 09:10 Dose: 20 meq Warfarin Sodium (Coumadin Per Pharmacy) 1 [facility] PRN PRN; Protocol PRN Reason: RX MONITORING Stop: 08/22/17 10:18 Warfarin Sodium (Coumadin) 5 mg PO 1300 ONE Stop: 06/25/17 13:01 General: Alert HEENT: Atraumatic Neck: Supple Cardiovascular: Regular rate Abdomen: Bowel sounds, Soft, Other (no guard, no rebound, no distension) Assessment/Plan - Problem List Patient Problems: All Active Problems Altered mental status (Acute) R41.82 Failure to thrive (Acute) [id number] Schizophrenia (Acute) F20.9 Anxiety (Chronic) F41.9 Chronic Kidney Disease (Chronic) Hypertension (Chronic) - Assessment Assessment: # Anemia # Colon mass vs polyp # Diverticulosis EGD on 06/23 showed mild gastritis. Colonoscopy revealed 3-4cm cecal lesion and 2cm ascending colon polyp. Cecal lesion endoscopically looked like villous adenoma, and ascending colon may be adenoma vs villous adenoma. 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 These lesions could very well be contributing to her chronic anemia, although certainly there is anemia of chronic disease Plan: - The cecal lesion would be high risk to remove endoscopically given location and size. I would recommend a R hemicolectomy as opposed to endoscopic resection with removal of the ascending colon as well to remove the 2nd lesion. Overall, this has a lower risk profile and is a less challenging procedure than EMR in this location and this size. - appreciate hematology recs - cont iron supplementation - cont diet and advance as per swallow eval recommendations
[2017-06-25] MEDS: Potassium Chloride 20 mEq ER Tab PO SCH (08:11)
--- NOTE | 2017-06-25 10:58 | Internal Medicine Prog Note ---
Internal Medicine Subjective - Subjective Patient seen and examined:: with staff, chart reviewed Patient is:: awake, verbal, non-interactive Patient Complaints of:: congestion Per staff patient has:: no adverse event, no episodes of fall, poor appetite, agitated, noncompliant, tolerating meds Internal Medicine Objective - Results Result Diagrams: 06/25/17 04:00 06/25/17 04:00 Recent Labs: Laboratory Last Values WBC 8.3 Th/cmm (4.8-10.8) 06/25/17 04:00 RBC 2.63 Mil/cmm (3.80-5.20) L 06/25/17 04:00 Hgb 7.2 gm/dL (12-16) L* 06/25/17 04:00 Hct 21.7 % (41.0-60) L 06/25/17 04:00 MCV 82.4 fl (81-100) 06/25/17 04:00 MCH 27.3 pg (27.0-31.0) 06/25/17 04:00 MCHC Differential 33.1 pg (28.0-36.0) 06/25/17 04:00 RDW 13.4 % (11.5-20.0) 06/25/17 04:00 Plt Count 455 Th/cmm (150-400) H 06/25/17 04:00 MPV 7.0 fl 06/25/17 04:00 Neutrophils % 60.8 % (40.0-80.0) 06/25/17 04:00 Lymphocytes % 31.8 % (20.0-50.0) 06/25/17 04:00 Monocytes % 5.8 % (2.0-10.0) 06/25/17 04:00 Eosinophils % 1.2 % (0.0-5.0) 06/25/17 04:00 Basophils % 0.4 % (0.0-2.0) 06/25/17 04:00 PT 11.6 SECONDS (9.5-11.5) H 06/25/17 04:00 INR 1.11 (0.5-1.4) 06/25/17 04:00 PTT (Actin FS) 48.3 SECONDS (26.0-38.0) H 06/25/17 04:00 D-Dimer 3600 ng/mL (100-400) H 06/21/17 18:20 Sodium 141 mEq/L (136-145) 06/25/17 04:00 Potassium 3.2 mEq/L (3.5-5.1) L 06/25/17 04:00 Chloride 107 mEq/L (98-107) 06/25/17 04:00 Carbon Dioxide 27.5 mEq/L (21.0-31.0) 06/25/17 04:00 Anion Gap 9.7 (7.0-16.0) 06/25/17 04:00 BUN 10 mg/dL (7-25) 06/25/17 04:00 Creatinine 1.0 mg/dL (0.6-1.2) 06/25/17 04:00 Est GFR ( Amer) TNP 06/25/17 04:00 Est GFR (Non-Af Amer) TNP 06/25/17 04:00 BUN/Creatinine Ratio 10.0 06/25/17 04:00 Glucose 129 mg/dL (70-105) H 06/25/17 04:00 POC Glucose 123 MG/DL (70 - 105) H 06/25/17 05:22 Hemoglobin A1c % 11.7 % (4.0-6.0) H 06/21/17 18:20 Calcium 8.1 mg/dL (8.6-10.3) L 06/25/17 04:00 Iron 19 ug/dL (27-139) L 06/22/17 05:20 TIBC 176 ug/dL (250-450) L 06/22/17 05:20 Iron Saturation 11 % (15-55) L 06/22/17 05:20 Unsaturated IBC 157 ug/dL (118-369) 06/22/17 05:20 Ferritin 164 ng/mL (15-150) H 06/22/17 05:20 Total Bilirubin 0.2 mg/dL (0.3-1.0) L 06/21/17 18:20 AST 10 U/L (13-39) L 06/21/17 18:20 ALT 6 U/L (7-52) L 06/21/17 18:20 Alkaline Phosphatase 64 U/L (34-104) 06/21/17 18:20 Ammonia 36 umol/L (16-53) 06/22/17 05:20 Creatine Kinase 39 U/L (30-223) 06/21/17 18:20 Troponin I 0.01 ng/mL (0.01-0.05) 06/21/17 18:20 B-Natriuretic Peptide 122.0 pg/mL (5.0-100.0) H 06/21/17 18:20 Total Protein 6.6 gm/dL (6.0-8.3) 06/21/17 18:20 Albumin 2.6 gm/dL (3.7-5.3) L 06/21/17 18:20 Globulin 4.0 gm/dL 06/21/17 18:20 Albumin/Globulin Ratio 0.7 (1.0-1.8) L 06/21/17 18:20 Triglycerides 104 mg/dL (<150) 06/21/17 18:20 Cholesterol 129 mg/dL (<200) 06/21/17 18:20 LDL Cholesterol Direct 65 mg/dL (75-193) L 06/21/17 18:20 HDL Cholesterol 43 mg/dL (23-92) 06/21/17 18:20 Vitamin B12 621 pg/mL (232-1245) 06/22/17 05:20 Folic Acid 14.7 ng/mL (>3.0) 06/22/17 05:20 Helicobacter pylori Ab POSITIVE (NEGATIVE) 06/23/17 10:50 Blood Type O POSITIVE 06/23/17 09:50 Antibody Screen NEGATIVE 06/23/17 09:50 - Physical Exam Vitals and I&O: Vital Signs Temp 98 F 06/25/17 04:00 Pulse 67 06/25/17 08:14 Resp 12 06/25/17 08:14 BP 193/89 06/25/17 08:10 Pulse Ox 95 06/25/17 08:14 Intake & Output 06/24/17 06/25/17 06/25/17 18:59 06:59 18:59 Intake Total 200 1252.658 Balance 200 1252.658 Weight (lbs) 53.388 kg 53.252 kg Intake: Intake, IV Amount 1252.658 D5-0.9%Ns 1,000 ml @ 80 1000 mls/hr IV .[id number] [facility] Rx #:[id number] Heparin 25,000 Units In 150.658 D5W 25,000 units In 250 ml @ Titrate IV TITR PRN Rx#:[id number] Iron Dextran Complex 100 102 mg In Sodium Chloride 0.9 % 100 ml @ 100 mls/hr IV Q24H [facility] Rx#:[id number] Oral 200 Other: # Voids 3 2 # Bowel Movements 1 0 Active Medications: Current Medications Acetaminophen (Tylenol) 650 mg PO Q4H PRN PRN Reason: Pain Or Fever above 101 Stop: 08/20/17 19:40 Al Hydrox/Mg Hydrox/Simethicone (Maalox) 30 ml PO Q6H PRN PRN Reason: Dyspepsia Stop: 08/20/17 19:40 Albuterol Sulfate (Albuterol 2.5mg/3ml Neb Ud) 2.5 mg HHN Q2HRT PRN PRN Reason: Shortness of Breath or Wheeze Stop: 08/20/17 19:40 Amlodipine Besylate (Norvasc) 5 mg PO DAILY [facility] Stop: 08/21/17 08:59 Last Admin: 06/25/17 08:10 Dose: 5 mg Enalaprilat (Vasotec) 1.25 mg IVP Q6HR PRN PRN Reason: Sbp Above 170MMHG Stop: 08/22/17 11:59 Last Admin: 06/25/17 04:19 Dose: 1.25 mg Guaifenesin (Robitussin) 200 mg PO Q4HR PRN PRN Reason: Cough or Congestion Stop: 08/20/17 19:40 Haloperidol Decanoate (Haldol Dec) 25 mg IM QMONTH [facility] Stop: 08/23/17 09:59 Last Admin: 06/24/17 09:10 Dose: 25 mg Dextrose/Sodium Chloride (D5-0.9%Ns) 1,000 mls @ 80 mls/hr IV .[id number] [facility] Stop: 08/20/17 19:44 Last Admin: 06/24/17 22:00 Dose: 80 mls/hr Heparin Sodium/Dextrose (Heparin Drip) 25,000 units in 250 mls @ 0 mls/hr IV TITR PRN; Protocol; Titrate PRN Reason: PROTOCOL Stop: 08/21/17 04:00 Last Admin: 06/24/17 23:54 Dose: 750 units/hr, 7.5 mls/hr Iron Dextran 100 mg/ Sodium (Chloride) 102 mls @ 100 mls/hr IV Q24H [facility] Stop: 07/01/17 18:02 Last Infusion: 06/24/17 19:30 Dose: Infused Insulin Aspart (Novolog) 0 units SUBQ ACHS ED PRN Reason: Protocol Stop: 08/21/17 16:29 Last Admin: 06/25/17 07:10 Dose: Not Given Ipratropium [place] (Atrovent Neb 0.5mg/2.5ml) 0.5 mg IH Q2HRT PRN PRN Reason: Shortness of Breath or Wheeze Stop: 08/20/17 19:40 Mirtazapine (Remeron) 15 mg PO HS ED PRN Reason: Protocol Stop: 08/20/17 20:59 Last Admin: 06/24/17 21:18 Dose: 15 mg Miscellaneous (Heparin Drip Per Pharmacy) 1 ea MC PRN ED PRN Reason: Protocol Stop: 08/21/17 08:44 Morphine Sulfate (Morphine) 2 mg IVP Q4H PRN PRN Reason: Pain (Severe) Stop: 08/20/17 19:40 Naproxen (Naprosyn) 500 mg PO Q6H PRN PRN Reason: Pain (Mild) Stop: 08/20/17 19:39 Nitroglycerin (Nitrostat) 0.4 mg SL Q5MIN PRN PRN Reason: Chest Pain Stop: 08/20/17 19:40 Ondansetron HCl (Zofran) 4 mg IV Q8H PRN PRN Reason: Nausea / Vomiting Stop: 08/20/17 19:40 Potassium Chloride (Klor-Con) 20 meq PO DAILY [facility] Stop: 08/21/17 08:59 Last Admin: 06/25/17 08:11 Dose: 20 meq General: weak, alert HEENT: NC/AT, PERRLA Neck: Supple Lungs: CTAB Cardiovascular: RRR, Normal S1, Normal S2, without murmur Abdomen: soft, non-tender, non-distended, positive bowel sound Extremities: excoriation Neurological: alert Internal Medicine Assmt/Plan - Assessment Assessment: - Assessment Assessment: cecal mass acute dvt severe anemia dm2 schizophrenia htn psychosis hypokalemia - Plan Plan: monitor electrolytes continue lovenox follow up labs in am will follow operational risk consultant reccomendations - Plan Plan: dr chin for surgical plans Nutritional Asmnt/Malnutr-PDOC - Dietary Evaluation Malnutrition Findings (Please click <Entered> for more info): Nutritional Asmnt/Malnutrition Start: 06/22/17 18: 04 Text: Status: Complete Freq: Document 06/22/17 18:04 GRISELDA (Rec: 06/22/17 18:15 LCHARSHAD [email or web address]) Nutritional Asmnt/Malnutrition Patient General Information Nutritional Screening High Risk Consult Diagnosis left lower extremity DVT, severe anemia, CHF, HTN Pertinent Medical Hx/Surgical Hx DM, anemia, renal stones, schizophrenia Subjective Information Pt seen lying in bed, confused at time of visit. Spoke with LULÚ Seay, RN reported pt ate well, consumed 60% of breakfast this morning. Per notes, pt has EGD and colonoscopy scheduled tommorrow. Current Diet Order/ Nutrition Support pureed Pertinent Medications D5-0.9ns, novolog, remeron, kcl Pertinent Labs 06/21 Na 137, K 3.5, Cl 100, BUN 24, Cr 1.3, Glucose 186, AST 10, ALT 6, Alb 2.6 06/22 POC 383 Nutritional Hx/Data Height 1.52 m Height (Calculated Centimeters) 152.4 Current Weight (lbs) 39.009 kg Weight (Calculated Kilograms) 39.0 Weight (Calculated Grams) 80182.9 [place] Body Weight 100 % [place] Body Weight 86 Body Mass Index (BMI) 16.7 Weight Status Underweight GI Symptoms GI Symptoms None Last BM none Difficult in: None Skin Integrity/Comment: intact Current %PO Fair (50-74%) Estimated Nutritional Goals Calories/Kcals/Kg 25-30 based on IBW 45kg Kcals Calculated 2176-2708 Protein g/k-1.2 Protein Calculated 45-54 Fluid: ml 1125-1350ml (1ml/kcal) Nutritional Problem 1. Problem Problem altered nutrition related lab values Etiology hx of DM Signs/Symptoms: Glucose 186, POC 383 Malnutrition Alert Protein-Calorie Malnutrition N/A Is there a minimum of two criteria No selected? Query Text:Check all the applicable criteria. A minimum of two criteria are recommended for diagnosis of either severe or non-severe malnutrition. Intervention/Recommendation Comments 1. Recommend CCHO, low sodium diet for optimal glycemic and BP control. RN notified. 2. Monitor PO intake, wt, labs and skin integrity 3. F/U as high risk in 2-3 days, 06/24-06/25 Expected Outcomes/Goals Expected Outcomes/Goals 1. PO intake to meet at least 75% of nutritional needs. 2. Wt stability, skin to remain intact, labs to improve
[2017-06-25] MEDS: D5-0.9%NS 1,000 ML IV SCH (12:29)
--- NOTE | 2017-06-25 13:04 | General Progress Note ---
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 'has no family will schedule for surgery Objective - Results Result Diagrams: 06/25/17 04:00 06/25/17 04:00 Recent Labs: Laboratory Last Values WBC 8.3 Th/cmm (4.8-10.8) 06/25/17 04:00 RBC 2.63 Mil/cmm (3.80-5.20) L 06/25/17 04:00 Hgb 7.2 gm/dL (12-16) L* 06/25/17 04:00 Hct 21.7 % (41.0-60) L 06/25/17 04:00 MCV 82.4 fl (81-100) 06/25/17 04:00 MCH 27.3 pg (27.0-31.0) 06/25/17 04:00 MCHC Differential 33.1 pg (28.0-36.0) 06/25/17 04:00 RDW 13.4 % (11.5-20.0) 06/25/17 04:00 Plt Count 455 Th/cmm (150-400) H 06/25/17 04:00 MPV 7.0 fl 06/25/17 04:00 Neutrophils % 60.8 % (40.0-80.0) 06/25/17 04:00 Lymphocytes % 31.8 % (20.0-50.0) 06/25/17 04:00 Monocytes % 5.8 % (2.0-10.0) 06/25/17 04:00 Eosinophils % 1.2 % (0.0-5.0) 06/25/17 04:00 Basophils % 0.4 % (0.0-2.0) 06/25/17 04:00 PT 11.6 SECONDS (9.5-11.5) H 06/25/17 04:00 INR 1.11 (0.5-1.4) 06/25/17 04:00 PTT (Actin FS) 48.3 SECONDS (26.0-38.0) H 06/25/17 04:00 D-Dimer 3600 ng/mL (100-400) H 06/21/17 18:20 Sodium 141 mEq/L (136-145) 06/25/17 04:00 Potassium 3.2 mEq/L (3.5-5.1) L 06/25/17 04:00 Chloride 107 mEq/L (98-107) 06/25/17 04:00 Carbon Dioxide 27.5 mEq/L (21.0-31.0) 06/25/17 04:00 Anion Gap 9.7 (7.0-16.0) 06/25/17 04:00 BUN 10 mg/dL (7-25) 06/25/17 04:00 Creatinine 1.0 mg/dL (0.6-1.2) 06/25/17 04:00 Est GFR ( Amer) TNP 06/25/17 04:00 Est GFR (Non-Af Amer) TNP 06/25/17 04:00 BUN/Creatinine Ratio 10.0 06/25/17 04:00 Glucose 129 mg/dL (70-105) H 06/25/17 04:00 POC Glucose 123 MG/DL (70 - 105) H 06/25/17 05:22 Hemoglobin A1c % 11.7 % (4.0-6.0) H 06/21/17 18:20 Calcium 8.1 mg/dL (8.6-10.3) L 06/25/17 04:00 Iron 19 ug/dL (27-139) L 06/22/17 05:20 TIBC 176 ug/dL (250-450) L 06/22/17 05:20 Iron Saturation 11 % (15-55) L 06/22/17 05:20 Unsaturated IBC 157 ug/dL (118-369) 06/22/17 05:20 Ferritin 164 ng/mL (15-150) H 06/22/17 05:20 Total Bilirubin 0.2 mg/dL (0.3-1.0) L 06/21/17 18:20 AST 10 U/L (13-39) L 06/21/17 18:20 ALT 6 U/L (7-52) L 06/21/17 18:20 Alkaline Phosphatase 64 U/L (34-104) 06/21/17 18:20 Ammonia 36 umol/L (16-53) 06/22/17 05:20 Creatine Kinase 39 U/L (30-223) 06/21/17 18:20 Troponin I 0.01 ng/mL (0.01-0.05) 06/21/17 18:20 B-Natriuretic Peptide 122.0 pg/mL (5.0-100.0) H 06/21/17 18:20 Total Protein 6.6 gm/dL (6.0-8.3) 06/21/17 18:20 Albumin 2.6 gm/dL (3.7-5.3) L 06/21/17 18:20 Globulin 4.0 gm/dL 06/21/17 18:20 Albumin/Globulin Ratio 0.7 (1.0-1.8) L 06/21/17 18:20 Triglycerides 104 mg/dL (<150) 06/21/17 18:20 Cholesterol 129 mg/dL (<200) 06/21/17 18:20 LDL Cholesterol Direct 65 mg/dL (75-193) L 06/21/17 18:20 HDL Cholesterol 43 mg/dL (23-92) 06/21/17 18:20 Vitamin B12 621 pg/mL (232-1245) 06/22/17 05:20 Folic Acid 14.7 ng/mL (>3.0) 06/22/17 05:20 Helicobacter pylori Ab POSITIVE (NEGATIVE) 06/23/17 10:50 Blood Type O POSITIVE 06/23/17 09:50 Antibody Screen NEGATIVE 06/23/17 09:50 - Physical Exam Vitals and I&O: Vital Signs Temp 98 F 06/25/17 04:00 Pulse 79 06/25/17 12:23 Resp 12 06/25/17 08:14 BP 188/109 06/25/17 12:23 Pulse Ox 95 06/25/17 08:14 Intake & Output 06/24/17 06/25/17 06/25/17 18:59 06:59 18:59 Intake Total 200 7693.484 6919 Balance 200 1273.921 6812 Weight (lbs) 53.388 kg 53.252 kg Intake: Intake, IV Amount 8213.776 1726 D5-0.9%Ns 1,000 ml @ 80 1000 1000 mls/hr IV .[id number] [facility] Rx #:[id number] Heparin 25,000 Units In 150.658 D5W 25,000 units In 250 ml @ Titrate IV TITR PRN Rx#:[id number] Iron Dextran Complex 100 102 mg In Sodium Chloride 0.9 % 100 ml @ 100 mls/hr IV Q24H [facility] Rx#:[id number] Oral 200 Other: # Voids 3 2 # Bowel Movements 1 0 Active Medications: Current Medications Acetaminophen (Tylenol) 650 mg PO Q4H PRN PRN Reason: Pain Or Fever above 101 Stop: 08/20/17 19:40 Al Hydrox/Mg Hydrox/Simethicone (Maalox) 30 ml PO Q6H PRN PRN Reason: Dyspepsia Stop: 08/20/17 19:40 Albuterol Sulfate (Albuterol 2.5mg/3ml Neb Ud) 2.5 mg HHN Q2HRT PRN PRN Reason: Shortness of Breath or Wheeze Stop: 08/20/17 19:40 Amlodipine Besylate (Norvasc) 5 mg PO DAILY [facility] Stop: 08/21/17 08:59 Last Admin: 06/25/17 08:10 Dose: 5 mg Enalaprilat (Vasotec) 1.25 mg IVP Q6HR PRN PRN Reason: Sbp Above 170MMHG Stop: 08/22/17 11:59 Last Admin: 06/25/17 12:23 Dose: 1.25 mg Guaifenesin (Robitussin) 200 mg PO Q4HR PRN PRN Reason: Cough or Congestion Stop: 08/20/17 19:40 Haloperidol Decanoate (Haldol Dec) 25 mg IM QMONTH [facility] Stop: 08/23/17 09:59 Last Admin: 06/24/17 09:10 Dose: 25 mg Dextrose/Sodium Chloride (D5-0.9%Ns) 1,000 mls @ 80 mls/hr IV .[id number] [facility] Stop: 08/20/17 19:44 Last Admin: 06/25/17 12:29 Dose: 80 mls/hr Heparin Sodium/Dextrose (Heparin Drip) 25,000 units in 250 mls @ 0 mls/hr IV TITR PRN; Protocol; Titrate PRN Reason: PROTOCOL Stop: 08/21/17 04:00 Last Admin: 06/24/17 23:54 Dose: 750 units/hr, 7.5 mls/hr Iron Dextran 100 mg/ Sodium (Chloride) 102 mls @ 100 mls/hr IV Q24H [facility] Stop: 07/01/17 18:02 Last Infusion: 06/24/17 19:30 Dose: Infused Insulin Aspart (Novolog) 0 units SUBQ ACHS ED PRN Reason: Protocol Stop: 08/21/17 16:29 Last Admin: 06/25/17 12:30 Dose: Not Given Ipratropium [place] (Atrovent Neb 0.5mg/2.5ml) 0.5 mg IH Q2HRT PRN PRN Reason: Shortness of Breath or Wheeze Stop: 08/20/17 19:40 Mirtazapine (Remeron) 15 mg PO HS ED PRN Reason: Protocol Stop: 08/20/17 20:59 Last Admin: 06/24/17 21:18 Dose: 15 mg Miscellaneous (Heparin Drip Per Pharmacy) 1 ea MC PRN ED PRN Reason: Protocol Stop: 08/21/17 08:44 Morphine Sulfate (Morphine) 2 mg IVP Q4H PRN PRN Reason: Pain (Severe) Stop: 08/20/17 19:40 Naproxen (Naprosyn) 500 mg PO Q6H PRN PRN Reason: Pain (Mild) Stop: 08/20/17 19:39 Nitroglycerin (Nitrostat) 0.4 mg SL Q5MIN PRN PRN Reason: Chest Pain Stop: 08/20/17 19:40 Ondansetron HCl (Zofran) 4 mg IV Q8H PRN PRN Reason: Nausea / Vomiting Stop: 08/20/17 19:40 Potassium Chloride (Klor-Con) 20 meq PO DAILY [facility] Stop: 08/21/17 08:59 Last Admin: 06/25/17 08:11 Dose: 20 meq General: Alert HEENT: Atraumatic Neck: Supple Cardiovascular: Regular rate Abdomen: Bowel sounds, Soft, Other (no guard, no rebound, no distension) Assessment/Plan - Problem List Patient Problems: All Active Problems Altered mental status (Acute) R41.82 Failure to thrive (Acute) [id number] Schizophrenia (Acute) F20.9 Anxiety (Chronic) F41.9 Chronic Kidney Disease (Chronic) Hypertension (Chronic) Nutritional Asmnt/Malnutr-PDOC - Dietary Evaluation Malnutrition Findings (Please click <Entered> for more info): Nutritional Asmnt/Malnutrition Start: 06/22/17 18: 04 Text: Status: Complete Freq: Document 06/22/17 18:04 ERICHARSHAD (Rec: 06/22/17 18:15 ERICHARSHAD [email or web address]) Nutritional Asmnt/Malnutrition Patient General Information Nutritional Screening High Risk Consult Diagnosis left lower extremity DVT, severe anemia, CHF, HTN Pertinent Medical Hx/Surgical Hx DM, anemia, renal stones, schizophrenia Subjective Information Pt seen lying in bed, confused at time of visit. Spoke with LULÚ Seay, RN reported pt ate well, consumed 60% of breakfast this morning. Per notes, pt has EGD and colonoscopy scheduled tommorrow. Current Diet Order/ Nutrition Support pureed Pertinent Medications D5-0.9ns, novolog, remeron, kcl Pertinent Labs 06/21 Na 137, K 3.5, Cl 100, BUN 24, Cr 1.3, Glucose 186, AST 10, ALT 6, Alb 2.6 06/22 POC 383 Nutritional Hx/Data Height 1.52 m Height (Calculated Centimeters) 152.4 Current Weight (lbs) 39.009 kg Weight (Calculated Kilograms) 39.0 Weight (Calculated Grams) 05438.9 [place] Body Weight 100 % [place] Body Weight 86 Body Mass Index (BMI) 16.7 Weight Status Underweight GI Symptoms GI Symptoms None Last BM none Difficult in: None Skin Integrity/Comment: intact Current %PO Fair (50-74%) Estimated Nutritional Goals Calories/Kcals/Kg 25-30 based on IBW 45kg Kcals Calculated 6051-1542 Protein g/k-1.2 Protein Calculated 45-54 Fluid: ml 1125-1350ml (1ml/kcal) Nutritional Problem 1. Problem Problem altered nutrition related lab values Etiology hx of DM Signs/Symptoms: Glucose 186, POC 383 Malnutrition Alert Protein-Calorie Malnutrition N/A Is there a minimum of two criteria No selected? Query Text:Check all the applicable criteria. A minimum of two criteria are recommended for diagnosis of either severe or non-severe malnutrition. Intervention/Recommendation Comments 1. Recommend CCHO, low sodium diet for optimal glycemic and BP control. RN notified. 2. Monitor PO intake, wt, labs and skin integrity 3. F/U as high risk in 2-3 days, 06/24-06/25 Expected Outcomes/Goals Expected Outcomes/Goals 1. PO intake to meet at least 75% of nutritional needs. 2. Wt stability, skin to remain intact, labs to improve
[2017-06-25] MEDS: IRON DEXTRAN IV SCH (16:43)
[2017-06-25] MEDS: NS 0.9% IV SCH (16:43)
[2017-06-26] MEDS: D5-0.9%NS 1,000 ML IV SCH (05:09)
[2017-06-26] MEDS: INSULIN ASPART, RECOMBINANT 100 UNITS/ML SUBQ SCH ×4 (06:32→21:45)
[2017-06-26 07:56] LABS: % BASOPHILS 0.3 % (0.0-2.0); % EOSINOPHILS 2.4 % (0.0-5.0); % LYMPHOCYTES 36.8 % (20.0-50.0); % MONOCYTES 5.4 % (2.0-10.0); % NEUTROPHILS 55.1 % (40.0-80.0); EOSINOPHILE ABSOLUTE 0.2 Th/cmm (0.1-0.4); HEMATOCRIT 21.1 % (41.0-60); LYMPHOCYTE ABSOLUTE 2.7 Th/cmm (1.5-3.0); MEAN CELL VOLUME 82.3 fl (81-100); MEAN CORPUSCULAR HEMOGLOBIN 26.6 pg (27.0-31.0); MEAN CORPUSCULAR HGB CONC 32.3 pg (28.0-36.0); MEAN PLATELET VOLUME 6.9 fl; MONOCYTE ABSOLUTE 0.4 Th/cmm (0.3-1.0); NEUTROPHILE ABSOLUTE 4.1 Th/cmm (1.8-8.0); PLATELET COUNT 402 Th/cmm (150-400); RED BLOOD COUNT 2.57 Mil/cmm (3.80-5.20); RED CELL DISTRIBUTION WIDTH 13.7 % (11.5-20.0); WHITE BLOOD COUNT 7.4 Th/cmm (4.8-10.8)
[2017-06-26 08:01] LABS: INR 1.15 (0.5-1.4); PROTHROMBIN TIME (TEST) 12.1 SECONDS (9.5-11.5)
[2017-06-26] MEDS: Potassium Chloride 20 mEq ER Tab PO SCH (08:13)
--- NOTE | 2017-06-26 08:38 | GI Progress Note ---
Subjective - Review of Systems Subjective: No events overnight, no bleeding Objective - Results Result Diagrams: 06/25/17 04:00 06/25/17 04:00 Recent Labs: Laboratory Last Values WBC 8.3 Th/cmm (4.8-10.8) 06/25/17 04:00 RBC 2.63 Mil/cmm (3.80-5.20) L 06/25/17 04:00 Hgb 7.2 gm/dL (12-16) L* 06/25/17 04:00 Hct 21.7 % (41.0-60) L 06/25/17 04:00 MCV 82.4 fl (81-100) 06/25/17 04:00 MCH 27.3 pg (27.0-31.0) 06/25/17 04:00 MCHC Differential 33.1 pg (28.0-36.0) 06/25/17 04:00 RDW 13.4 % (11.5-20.0) 06/25/17 04:00 Plt Count 455 Th/cmm (150-400) H 06/25/17 04:00 MPV 7.0 fl 06/25/17 04:00 Neutrophils % 60.8 % (40.0-80.0) 06/25/17 04:00 Lymphocytes % 31.8 % (20.0-50.0) 06/25/17 04:00 Monocytes % 5.8 % (2.0-10.0) 06/25/17 04:00 Eosinophils % 1.2 % (0.0-5.0) 06/25/17 04:00 Basophils % 0.4 % (0.0-2.0) 06/25/17 04:00 PT 12.1 SECONDS (9.5-11.5) H 06/26/17 07:37 INR 1.15 (0.5-1.4) 06/26/17 07:37 PTT (Actin FS) 47.3 SECONDS (26.0-38.0) H 06/26/17 07:37 D-Dimer 3600 ng/mL (100-400) H 06/21/17 18:20 Sodium 141 mEq/L (136-145) 06/25/17 04:00 Potassium 3.2 mEq/L (3.5-5.1) L 06/25/17 04:00 Chloride 107 mEq/L (98-107) 06/25/17 04:00 Carbon Dioxide 27.5 mEq/L (21.0-31.0) 06/25/17 04:00 Anion Gap 9.7 (7.0-16.0) 06/25/17 04:00 BUN 10 mg/dL (7-25) 06/25/17 04:00 Creatinine 1.0 mg/dL (0.6-1.2) 06/25/17 04:00 Est GFR ( Amer) TNP 06/25/17 04:00 Est GFR (Non-Af Amer) TNP 06/25/17 04:00 BUN/Creatinine Ratio 10.0 06/25/17 04:00 Glucose 129 mg/dL (70-105) H 06/25/17 04:00 POC Glucose 108 MG/DL (70 - 105) H 06/26/17 05:53 Hemoglobin A1c % 11.7 % (4.0-6.0) H 06/21/17 18:20 Calcium 8.1 mg/dL (8.6-10.3) L 06/25/17 04:00 Iron 19 ug/dL (27-139) L 06/22/17 05:20 TIBC 176 ug/dL (250-450) L 06/22/17 05:20 Iron Saturation 11 % (15-55) L 06/22/17 05:20 Unsaturated IBC 157 ug/dL (118-369) 06/22/17 05:20 Ferritin 164 ng/mL (15-150) H 06/22/17 05:20 Total Bilirubin 0.2 mg/dL (0.3-1.0) L 06/21/17 18:20 AST 10 U/L (13-39) L 06/21/17 18:20 ALT 6 U/L (7-52) L 06/21/17 18:20 Alkaline Phosphatase 64 U/L (34-104) 06/21/17 18:20 Ammonia 36 umol/L (16-53) 06/22/17 05:20 Creatine Kinase 39 U/L (30-223) 06/21/17 18:20 Troponin I 0.01 ng/mL (0.01-0.05) 06/21/17 18:20 B-Natriuretic Peptide 122.0 pg/mL (5.0-100.0) H 06/21/17 18:20 Total Protein 6.6 gm/dL (6.0-8.3) 06/21/17 18:20 Albumin 2.6 gm/dL (3.7-5.3) L 06/21/17 18:20 Globulin 4.0 gm/dL 06/21/17 18:20 Albumin/Globulin Ratio 0.7 (1.0-1.8) L 06/21/17 18:20 Triglycerides 104 mg/dL (<150) 06/21/17 18:20 Cholesterol 129 mg/dL (<200) 06/21/17 18:20 LDL Cholesterol Direct 65 mg/dL (75-193) L 06/21/17 18:20 HDL Cholesterol 43 mg/dL (23-92) 06/21/17 18:20 Vitamin B12 621 pg/mL (232-1245) 06/22/17 05:20 Folic Acid 14.7 ng/mL (>3.0) 06/22/17 05:20 Helicobacter pylori Ab POSITIVE (NEGATIVE) 06/23/17 10:50 Blood Type O POSITIVE 06/23/17 09:50 Antibody Screen NEGATIVE 06/23/17 09:50 - Physical Exam Vitals and I&O: Vital Signs Temp 98.4 F 06/26/17 04:00 Pulse 75 06/26/17 08:13 Resp 16 06/26/17 07:48 BP 181/89 06/26/17 08:13 Pulse Ox 96 06/26/17 07:48 Intake & Output 06/25/17 06/26/17 06/26/17 18:59 06:59 18:59 Intake Total 1000 1360 Output Total 3 Balance 1000 1357 Weight (lbs) 54.386 kg Intake: Intake, IV Amount 1000 1000 D5-0.9%Ns 1,000 ml @ 80 1000 1000 mls/hr IV .[id number] ED Rx #:[id number] Oral 360 Output: Urine 3 Other: # Voids 3 # Bowel Movements 0 Active Medications: Current Medications Acetaminophen (Tylenol) 650 mg PO Q4H PRN PRN Reason: Pain Or Fever above 101 Stop: 08/20/17 19:40 Al Hydrox/Mg Hydrox/Simethicone (Maalox) 30 ml PO Q6H PRN PRN Reason: Dyspepsia Stop: 08/20/17 19:40 Albuterol Sulfate (Albuterol 2.5mg/3ml Neb Ud) 2.5 mg HHN Q2HRT PRN PRN Reason: Shortness of Breath or Wheeze Stop: 08/20/17 19:40 Amlodipine Besylate (Norvasc) 5 mg PO DAILY [facility] Stop: 08/21/17 08:59 Last Admin: 06/26/17 08:13 Dose: 5 mg Enalaprilat (Vasotec) 1.25 mg IVP Q6HR PRN PRN Reason: Sbp Above 170MMHG Stop: 08/22/17 11:59 Last Admin: 06/25/17 12:23 Dose: 1.25 mg Guaifenesin (Robitussin) 200 mg PO Q4HR PRN PRN Reason: Cough or Congestion Stop: 08/20/17 19:40 Haloperidol Decanoate (Haldol Dec) 25 mg IM QMONTH [facility] Stop: 08/23/17 09:59 Last Admin: 06/24/17 09:10 Dose: 25 mg Dextrose/Sodium Chloride (D5-0.9%Ns) 1,000 mls @ 80 mls/hr IV .[id number] [facility] Stop: 08/20/17 19:44 Last Admin: 06/26/17 05:09 Dose: 80 mls/hr Heparin Sodium/Dextrose (Heparin Drip) 25,000 units in 250 mls @ 0 mls/hr IV TITR PRN; Protocol; Titrate PRN Reason: PROTOCOL Stop: 08/21/17 04:00 Last Admin: 06/24/17 23:54 Dose: 750 units/hr, 7.5 mls/hr Iron Dextran 100 mg/ Sodium (Chloride) 102 mls @ 100 mls/hr IV Q24H [facility] Stop: 07/01/17 18:02 Last Admin: 06/25/17 16:43 Dose: 100 mls/hr Insulin Aspart (Novolog) 0 units SUBQ ACHS ED PRN Reason: Protocol Stop: 08/21/17 16:29 Last Admin: 06/26/17 06:32 Dose: Not Given Ipratropium [place] (Atrovent Neb 0.5mg/2.5ml) 0.5 mg IH Q2HRT PRN PRN Reason: Shortness of Breath or Wheeze Stop: 08/20/17 19:40 Mirtazapine (Remeron) 15 mg PO HS ED PRN Reason: Protocol Stop: 08/20/17 20:59 Last Admin: 06/25/17 20:51 Dose: 15 mg Miscellaneous (Heparin Drip Per Pharmacy) 1 ea MC PRN ED PRN Reason: Protocol Stop: 08/21/17 08:44 Morphine Sulfate (Morphine) 2 mg IVP Q4H PRN PRN Reason: Pain (Severe) Stop: 08/20/17 19:40 Naproxen (Naprosyn) 500 mg PO Q6H PRN PRN Reason: Pain (Mild) Stop: 08/20/17 19:39 Nitroglycerin (Nitrostat) 0.4 mg SL Q5MIN PRN PRN Reason: Chest Pain Stop: 08/20/17 19:40 Ondansetron HCl (Zofran) 4 mg IV Q8H PRN PRN Reason: Nausea / Vomiting Stop: 08/20/17 19:40 Potassium Chloride (Klor-Con) 20 meq PO DAILY ED Stop: 08/21/17 08:59 Last Admin: 06/26/17 08:13 Dose: 20 meq General: Alert HEENT: Atraumatic Neck: Supple Cardiovascular: Regular rate Abdomen: Bowel sounds, Soft, Other (no guard, no rebound, no distension) Assessment/Plan - Problem List Patient Problems: All Active Problems Altered mental status (Acute) R41.82 Failure to thrive (Acute) [id number] Schizophrenia (Acute) F20.9 Anxiety (Chronic) F41.9 Chronic Kidney Disease (Chronic) Hypertension (Chronic) - Assessment Assessment: # Anemia # Colon mass vs polyp # Diverticulosis EGD on 06/23 showed mild gastritis. Colonoscopy revealed 3-4cm cecal lesion and 2cm ascending colon polyp. Cecal lesion endoscopically looked like villous adenoma, and ascending colon may be adenoma vs villous adenoma. 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 These lesions could very well be contributing to her chronic anemia, although certainly there is anemia of chronic disease Plan: - The cecal lesion would be high risk to remove endoscopically given location and size. I would recommend a R hemicolectomy as opposed to endoscopic resection with removal of the ascending colon as well to remove the 2nd lesion. Overall, this has a lower risk profile and is a less challenging procedure than EMR in this location and this size. - R hemicolectomy will be scheduled by Dr Tapia - appreciate hematology recs - cont iron supplementation - cont diet and advance as per swallow eval recommendations Thank you for allowing me to participate in this patient's care, GI to see intermittently. Please call with any questions
[2017-06-26 09:07] LABS: HEMOGLOBIN 6.8 gm/dL (12-16)
[2017-06-26] MEDS: Heparin 25,000 Units In D5W 25,000 UNITS/250 ML BAG IV PRN (09:13)
[2017-06-26] MEDS ORDERED: KCL 20mEq/100mL Premix 20 MEQ/100 ML PIGGYBACK IV SCH (10:30)
--- NOTE | 2017-06-26 16:37 | General Progress Note ---
Subjective - Review of Systems Service Date: 06/26/17 Objective - Results Result Diagrams: 06/26/17 07:37 06/25/17 04:00 Recent Labs: Laboratory Last Values WBC 7.4 Th/cmm (4.8-10.8) 06/26/17 07:37 RBC 2.57 Mil/cmm (3.80-5.20) L 06/26/17 07:37 Hgb 6.8 gm/dL (12-16) L* 06/26/17 07:37 Hct 21.1 % (41.0-60) L 06/26/17 07:37 MCV 82.3 fl (81-100) 06/26/17 07:37 MCH 26.6 pg (27.0-31.0) L 06/26/17 07:37 MCHC Differential 32.3 pg (28.0-36.0) 06/26/17 07:37 RDW 13.7 % (11.5-20.0) 06/26/17 07:37 Plt Count 402 Th/cmm (150-400) H 06/26/17 07:37 MPV 6.9 fl 06/26/17 07:37 Neutrophils % 55.1 % (40.0-80.0) 06/26/17 07:37 Lymphocytes % 36.8 % (20.0-50.0) 06/26/17 07:37 Monocytes % 5.4 % (2.0-10.0) 06/26/17 07:37 Eosinophils % 2.4 % (0.0-5.0) 06/26/17 07:37 Basophils % 0.3 % (0.0-2.0) 06/26/17 07:37 PT 12.1 SECONDS (9.5-11.5) H 06/26/17 07:37 INR 1.15 (0.5-1.4) 06/26/17 07:37 PTT (Actin FS) 47.3 SECONDS (26.0-38.0) H 06/26/17 07:37 D-Dimer 3600 ng/mL (100-400) H 06/21/17 18:20 Sodium 141 mEq/L (136-145) 06/25/17 04:00 Potassium 3.2 mEq/L (3.5-5.1) L 06/25/17 04:00 Chloride 107 mEq/L (98-107) 06/25/17 04:00 Carbon Dioxide 27.5 mEq/L (21.0-31.0) 06/25/17 04:00 Anion Gap 9.7 (7.0-16.0) 06/25/17 04:00 BUN 10 mg/dL (7-25) 06/25/17 04:00 Creatinine 1.0 mg/dL (0.6-1.2) 06/25/17 04:00 Est GFR ( Amer) TNP 06/25/17 04:00 Est GFR (Non-Af Amer) TNP 06/25/17 04:00 BUN/Creatinine Ratio 10.0 06/25/17 04:00 Glucose 129 mg/dL (70-105) H 06/25/17 04:00 POC Glucose 108 MG/DL (70 - 105) H 06/26/17 05:53 Hemoglobin A1c % 11.7 % (4.0-6.0) H 06/21/17 18:20 Calcium 8.1 mg/dL (8.6-10.3) L 06/25/17 04:00 Iron 19 ug/dL (27-139) L 06/22/17 05:20 TIBC 176 ug/dL (250-450) L 06/22/17 05:20 Iron Saturation 11 % (15-55) L 06/22/17 05:20 Unsaturated IBC 157 ug/dL (118-369) 06/22/17 05:20 Ferritin 164 ng/mL (15-150) H 06/22/17 05:20 Total Bilirubin 0.2 mg/dL (0.3-1.0) L 06/21/17 18:20 AST 10 U/L (13-39) L 06/21/17 18:20 ALT 6 U/L (7-52) L 06/21/17 18:20 Alkaline Phosphatase 64 U/L (34-104) 06/21/17 18:20 Ammonia 36 umol/L (16-53) 06/22/17 05:20 Creatine Kinase 39 U/L (30-223) 06/21/17 18:20 Troponin I 0.01 ng/mL (0.01-0.05) 06/21/17 18:20 B-Natriuretic Peptide 122.0 pg/mL (5.0-100.0) H 06/21/17 18:20 Total Protein 6.6 gm/dL (6.0-8.3) 06/21/17 18:20 Albumin 2.6 gm/dL (3.7-5.3) L 06/21/17 18:20 Globulin 4.0 gm/dL 06/21/17 18:20 Albumin/Globulin Ratio 0.7 (1.0-1.8) L 06/21/17 18:20 Triglycerides 104 mg/dL (<150) 06/21/17 18:20 Cholesterol 129 mg/dL (<200) 06/21/17 18:20 LDL Cholesterol Direct 65 mg/dL (75-193) L 06/21/17 18:20 HDL Cholesterol 43 mg/dL (23-92) 06/21/17 18:20 Vitamin B12 621 pg/mL (232-1245) 06/22/17 05:20 Folic Acid 14.7 ng/mL (>3.0) 06/22/17 05:20 Helicobacter pylori Ab POSITIVE (NEGATIVE) 06/23/17 10:50 Blood Type O POSITIVE 06/26/17 10:15 Antibody Screen NEGATIVE 06/26/17 10:15 Crossmatch See Detail 06/26/17 10:15 - Physical Exam Vitals and I&O: Vital Signs Temp 97.5 F 06/26/17 08:00 Pulse 62 06/26/17 14:21 Resp 18 06/26/17 08:00 BP 160/79 06/26/17 14:21 Pulse Ox 99 06/26/17 08:00 Intake & Output 06/25/17 06/26/17 06/26/17 18:59 06:59 18:59 Intake Total 1102 1360 249.875 Output Total 3 Balance 1102 1357 249.875 Weight (lbs) 54.386 kg Intake: Intake, IV Amount 1102 1000 249.875 D5-0.9%Ns 1,000 ml @ 80 1000 1000 mls/hr IV .[id number] ED Rx #:[id number] Heparin 25,000 Units In 249.875 D5W 25,000 units In 250 ml @ Titrate IV TITR PRN Rx#:[id number] Iron Dextran Complex 100 102 mg In Sodium Chloride 0.9 % 100 ml @ 100 mls/hr IV Q24H [facility] Rx#:[id number] Oral 360 Output: Urine 3 Other: # Voids 3 # Bowel Movements 0 Active Medications: Current Medications Acetaminophen (Tylenol) 650 mg PO Q4H PRN PRN Reason: Pain Or Fever above 101 Stop: 08/20/17 19:40 Al Hydrox/Mg Hydrox/Simethicone (Maalox) 30 ml PO Q6H PRN PRN Reason: Dyspepsia Stop: 08/20/17 19:40 Albuterol Sulfate (Albuterol 2.5mg/3ml Neb Ud) 2.5 mg HHN Q2HRT PRN PRN Reason: Shortness of Breath or Wheeze Stop: 08/20/17 19:40 Amlodipine Besylate (Norvasc) 10 mg PO DAILY [facility] Stop: 08/21/17 08:59 Enalaprilat (Vasotec) 1.25 mg IVP Q6HR PRN PRN Reason: Sbp Above 170MMHG Stop: 08/22/17 11:59 Last Admin: 06/26/17 11:20 Dose: 1.25 mg Guaifenesin (Robitussin) 200 mg PO Q4HR PRN PRN Reason: Cough or Congestion Stop: 08/20/17 19:40 Haloperidol Decanoate (Haldol Dec) 25 mg IM QMONTH [facility] Stop: 08/23/17 09:59 Last Admin: 06/24/17 09:10 Dose: 25 mg Hydralazine HCl (Apresoline 20 Mg/Ml) 10 mg IV Q6HR PRN PRN Reason: SBP ABOVE 160 Stop: 08/25/17 12:20 Last Admin: 06/26/17 13:21 Dose: 10 mg Dextrose/Sodium Chloride (D5-0.9%Ns) 1,000 mls @ 80 mls/hr IV .[id number] [facility] Stop: 08/20/17 19:44 Last Admin: 06/26/17 05:09 Dose: 80 mls/hr Heparin Sodium/Dextrose (Heparin Drip) 25,000 units in 250 mls @ 0 mls/hr IV TITR PRN; Protocol; Titrate PRN Reason: PROTOCOL Stop: 08/21/17 04:00 Last Admin: 06/26/17 09:13 Dose: 750 units/hr, 7.5 mls/hr Iron Dextran 100 mg/ Sodium (Chloride) 102 mls @ 100 mls/hr IV Q24H [facility] Stop: 07/01/17 18:02 Last Infusion: 06/25/17 18:15 Dose: Infused Insulin Aspart (Novolog) 0 units SUBQ ACHS ED PRN Reason: Protocol Stop: 08/21/17 16:29 Last Admin: 06/26/17 11:54 Dose: Not Given Ipratropium [place] (Atrovent Neb 0.5mg/2.5ml) 0.5 mg IH Q2HRT PRN PRN Reason: Shortness of Breath or Wheeze Stop: 08/20/17 19:40 Mirtazapine (Remeron) 15 mg PO HS ED PRN Reason: Protocol Stop: 08/20/17 20:59 Last Admin: 06/25/17 20:51 Dose: 15 mg Miscellaneous (Heparin Drip Per Pharmacy) 1 ea MC PRN ED PRN Reason: Protocol Stop: 08/21/17 08:44 Morphine Sulfate (Morphine) 2 mg IVP Q4H PRN PRN Reason: Pain (Severe) Stop: 08/20/17 19:40 Nitroglycerin (Nitrostat) 0.4 mg SL Q5MIN PRN PRN Reason: Chest Pain Stop: 08/20/17 19:40 Ondansetron HCl (Zofran) 4 mg IV Q8H PRN PRN Reason: Nausea / Vomiting Stop: 08/20/17 19:40 Potassium Chloride (Klor-Con) 20 meq PO DAILY [facility] Stop: 08/21/17 08:59 Last Admin: 06/26/17 08:13 Dose: 20 meq General: Alert HEENT: Atraumatic Neck: Supple Cardiovascular: Regular rate Abdomen: Bowel sounds, Soft, Other (no guard, no rebound, no distension) Assessment/Plan - Problem List Patient Problems: All Active Problems Altered mental status (Acute) R41.82 Failure to thrive (Acute) [id number] Schizophrenia (Acute) F20.9 Anxiety (Chronic) F41.9 Chronic Kidney Disease (Chronic) Hypertension (Chronic) - Assessment Assessment: * DVT * ANEMIA * CKD * 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 Agree with right hemicolectomy start iv iron for anemia of ckd continue heparin, start coumadin transfuse PRBC today Nutritional Asmnt/Malnutr-PDOC - Dietary Evaluation Malnutrition Findings (Please click <Entered> for more info): Nutritional Asmnt/Malnutrition Start: 06/22/17 18: 04 Text: Status: Complete Freq: Document 06/22/17 18:04 ERICHARSHAD (Rec: 06/22/17 18:15 GRISELDA [email or web address]) Nutritional Asmnt/Malnutrition Patient General Information Nutritional Screening High Risk Consult Diagnosis left lower extremity DVT, severe anemia, CHF, HTN Pertinent Medical Hx/Surgical Hx DM, anemia, renal stones, schizophrenia Subjective Information Pt seen lying in bed, confused at time of visit. Spoke with LULÚ Seay, RN reported pt ate well, consumed 60% of breakfast this morning. Per notes, pt has EGD and colonoscopy scheduled tommorrow. Current Diet Order/ Nutrition Support pureed Pertinent Medications D5-0.9ns, novolog, remeron, kcl Pertinent Labs 06/21 Na 137, K 3.5, Cl 100, BUN 24, Cr 1.3, Glucose 186, AST 10, ALT 6, Alb 2.6 06/22 POC 383 Nutritional Hx/Data Height 1.52 m Height (Calculated Centimeters) 152.4 Current Weight (lbs) 39.009 kg Weight (Calculated Kilograms) 39.0 Weight (Calculated Grams) 30211.9 [place] Body Weight 100 % [place] Body Weight 86 Body Mass Index (BMI) 16.7 Weight Status Underweight GI Symptoms GI Symptoms None Last BM none Difficult in: None Skin Integrity/Comment: intact Current %PO Fair (50-74%) Estimated Nutritional Goals Calories/Kcals/Kg 25-30 based on IBW 45kg Kcals Calculated 5149-4609 Protein g/k-1.2 Protein Calculated 45-54 Fluid: ml 1125-1350ml (1ml/kcal) Nutritional Problem 1. Problem Problem altered nutrition related lab values Etiology hx of DM Signs/Symptoms: Glucose 186, POC 383 Malnutrition Alert Protein-Calorie Malnutrition N/A Is there a minimum of two criteria No selected? Query Text:Check all the applicable criteria. A minimum of two criteria are recommended for diagnosis of either severe or non-severe malnutrition. Intervention/Recommendation Comments 1. Recommend CCHO, low sodium diet for optimal glycemic and BP control. RN notified. 2. Monitor PO intake, wt, labs and skin integrity 3. F/U as high risk in 2-3 days, 06/24-06/25 Expected Outcomes/Goals Expected Outcomes/Goals 1. PO intake to meet at least 75% of nutritional needs. 2. Wt stability, skin to remain intact, labs to improve
[2017-06-26] MEDS: IRON DEXTRAN IV SCH (20:30)
[2017-06-26] MEDS: NS 0.9% IV SCH (20:30)
[2017-06-26 21:39] LABS: % BASOPHILS 0.2 % (0.0-2.0); % EOSINOPHILS 0.6 % (0.0-5.0); % LYMPHOCYTES 24.5 % (20.0-50.0); % MONOCYTES 4.2 % (2.0-10.0); % NEUTROPHILS 70.5 % (40.0-80.0); EOSINOPHILE ABSOLUTE 0.1 Th/cmm (0.1-0.4); HEMOGLOBIN 8.4 gm/dL (12-16); LYMPHOCYTE ABSOLUTE 2.4 Th/cmm (1.5-3.0); MEAN CELL VOLUME 83.1 fl (81-100); MEAN CORPUSCULAR HEMOGLOBIN 27.1 pg (27.0-31.0); MEAN CORPUSCULAR HGB CONC 32.7 pg (28.0-36.0); MONOCYTE ABSOLUTE 0.4 Th/cmm (0.3-1.0); NEUTROPHILE ABSOLUTE 6.9 Th/cmm (1.8-8.0); PLATELET COUNT 422 Th/cmm (150-400); RED BLOOD COUNT 3.11 Mil/cmm (3.80-5.20); RED CELL DISTRIBUTION WIDTH 13.8 % (11.5-20.0)
[2017-06-26 21:41] LABS: HEMATOCRIT 25.8 % (41.0-60); WHITE BLOOD COUNT 9.8 Th/cmm (4.8-10.8)
[2017-06-27 06:11] LABS: RED BLOOD COUNT 2.98 Mil/cmm (3.80-5.20); WHITE BLOOD COUNT 9.6 Th/cmm (4.8-10.8)
[2017-06-27 06:12] LABS: % BASOPHILS 0.5 % (0.0-2.0); % EOSINOPHILS 1.4 % (0.0-5.0); % LYMPHOCYTES 25.7 % (20.0-50.0); % MONOCYTES 5.9 % (2.0-10.0); % NEUTROPHILS 66.5 % (40.0-80.0); HEMATOCRIT 24.9 % (41.0-60); MEAN CELL VOLUME 83.6 fl (81-100); MEAN CORPUSCULAR HEMOGLOBIN 26.8 pg (27.0-31.0); MEAN CORPUSCULAR HGB CONC 32.1 pg (28.0-36.0); PLATELET COUNT 400 Th/cmm (150-400); RED CELL DISTRIBUTION WIDTH 13.6 % (11.5-20.0)
[2017-06-27 06:13] LABS: EOSINOPHILE ABSOLUTE 0.1 Th/cmm (0.1-0.4); LYMPHOCYTE ABSOLUTE 2.5 Th/cmm (1.5-3.0); MONOCYTE ABSOLUTE 0.6 Th/cmm (0.3-1.0); NEUTROPHILE ABSOLUTE 6.4 Th/cmm (1.8-8.0)
[2017-06-27 06:15] LABS: INR 1.05 (0.5-1.4); PROTHROMBIN TIME (TEST) 10.9 SECONDS (9.5-11.5)
[2017-06-27 06:20] LABS: ALB/GLOB RATIO 0.7 (1.0-1.8); ALBUMIN 2.4 gm/dL (3.7-5.3); ALKALINE PHOSPHATASE 71 U/L (34-104); ANION GAP 7.6 (7.0-16.0); BILIRUBIN,TOTAL 0.3 mg/dL (0.3-1.0); BUN - UREA NITROGEN 9 mg/dL (7-25); CALCIUM SERUM 8.2 mg/dL (8.6-10.3); CARBON DIOXIDE 27.7 mEq/L (21.0-31.0); CHLORIDE 107 mEq/L (98-107); CREATININE - SERUM 1.1 mg/dL (0.6-1.2); GLUCOSE 178 mg/dL (70-105); POTASSIUM SERUM 3.3 mEq/L (3.5-5.1); SGOT 22 U/L (13-39); SGPT/ALT 16 U/L (7-52); SODIUM SERUM 139 mEq/L (136-145); TOTAL PROTEIN,SERUM 5.9 gm/dL (6.0-8.3)
[2017-06-27] MEDS: INSULIN ASPART, RECOMBINANT 100 UNITS/ML SUBQ SCH ×4 (06:36→21:54)
[2017-06-27] MEDS ORDERED: Neostigmine 10mg/10mL Vial IV ONE (07:15)
[2017-06-27] MEDS ORDERED: Propofol 10 mg/mL 20mL Vial **SURGERY USE ONLY IV ONE (07:15)
[2017-06-27] MEDS ORDERED: Sodium Chloride 0.9% IRR 1,000 ML IV ONE (07:15)
[2017-06-27] MEDS ORDERED: fentaNYL Citrate 100 mcg/2mL Vial ONE (07:39)
[2017-06-27] MEDS ORDERED: Propofol **SURGERY USE ONLY** 20 ML IV ONE (08:12)
[2017-06-27] MEDS: Potassium Chloride 20 mEq ER Tab PO SCH (08:30)
--- NOTE | 2017-06-27 10:19 | General Progress Note ---
Subjective - Review of Systems Service Date: 06/27/17 Objective - Results Result Diagrams: 06/27/17 05:43 06/27/17 05:43 Recent Labs: Laboratory Last Values WBC 9.6 Th/cmm (4.8-10.8) 06/27/17 05:43 RBC 2.98 Mil/cmm (3.80-5.20) L 06/27/17 05:43 Hgb 8.0 gm/dL (12-16) L 06/27/17 05:43 Hct 24.9 % (41.0-60) L 06/27/17 05:43 MCV 83.6 fl (81-100) 06/27/17 05:43 MCH 26.8 pg (27.0-31.0) L 06/27/17 05:43 MCHC Differential 32.1 pg (28.0-36.0) 06/27/17 05:43 RDW 13.6 % (11.5-20.0) 06/27/17 05:43 Plt Count 400 Th/cmm (150-400) 06/27/17 05:43 MPV 7.0 fl 06/27/17 05:43 Neutrophils % 66.5 % (40.0-80.0) 06/27/17 05:43 Lymphocytes % 25.7 % (20.0-50.0) 06/27/17 05:43 Monocytes % 5.9 % (2.0-10.0) 06/27/17 05:43 Eosinophils % 1.4 % (0.0-5.0) 06/27/17 05:43 Basophils % 0.5 % (0.0-2.0) 06/27/17 05:43 PT 10.9 SECONDS (9.5-11.5) 06/27/17 05:43 INR 1.05 (0.5-1.4) 06/27/17 05:43 PTT (Actin FS) 25.4 SECONDS (26.0-38.0) L 06/27/17 05:43 D-Dimer 3600 ng/mL (100-400) H 06/21/17 18:20 Sodium 139 mEq/L (136-145) 06/27/17 05:43 Potassium 3.3 mEq/L (3.5-5.1) L 06/27/17 05:43 Chloride 107 mEq/L (98-107) 06/27/17 05:43 Carbon Dioxide 27.7 mEq/L (21.0-31.0) 06/27/17 05:43 Anion Gap 7.6 (7.0-16.0) 06/27/17 05:43 BUN 9 mg/dL (7-25) 06/27/17 05:43 Creatinine 1.1 mg/dL (0.6-1.2) 06/27/17 05:43 Est GFR ( Amer) TNP 06/27/17 05:43 Est GFR (Non-Af Amer) TNP 06/27/17 05:43 BUN/Creatinine Ratio 8.2 06/27/17 05:43 Glucose 178 mg/dL (70-105) H 06/27/17 05:43 POC Glucose 163 MG/DL (70 - 105) H 06/27/17 06:24 Hemoglobin A1c % 11.7 % (4.0-6.0) H 06/21/17 18:20 Calcium 8.2 mg/dL (8.6-10.3) L 06/27/17 05:43 Iron 19 ug/dL (27-139) L 06/22/17 05:20 TIBC 176 ug/dL (250-450) L 06/22/17 05:20 Iron Saturation 11 % (15-55) L 06/22/17 05:20 Unsaturated IBC 157 ug/dL (118-369) 06/22/17 05:20 Ferritin 164 ng/mL (15-150) H 06/22/17 05:20 Total Bilirubin 0.3 mg/dL (0.3-1.0) 06/27/17 05:43 AST 22 U/L (13-39) 06/27/17 05:43 ALT 16 U/L (7-52) 06/27/17 05:43 Alkaline Phosphatase 71 U/L (34-104) 06/27/17 05:43 Ammonia 36 umol/L (16-53) 06/22/17 05:20 Creatine Kinase 39 U/L (30-223) 06/21/17 18:20 Troponin I 0.01 ng/mL (0.01-0.05) 06/21/17 18:20 B-Natriuretic Peptide 122.0 pg/mL (5.0-100.0) H 06/21/17 18:20 Total Protein 5.9 gm/dL (6.0-8.3) L 06/27/17 05:43 Albumin 2.4 gm/dL (3.7-5.3) L 06/27/17 05:43 Globulin 3.5 gm/dL 06/27/17 05:43 Albumin/Globulin Ratio 0.7 (1.0-1.8) L 06/27/17 05:43 Triglycerides 104 mg/dL (<150) 06/21/17 18:20 Cholesterol 129 mg/dL (<200) 06/21/17 18:20 LDL Cholesterol Direct 65 mg/dL (75-193) L 06/21/17 18:20 HDL Cholesterol 43 mg/dL (23-92) 06/21/17 18:20 Vitamin B12 621 pg/mL (232-1245) 06/22/17 05:20 Folic Acid 14.7 ng/mL (>3.0) 06/22/17 05:20 Helicobacter pylori Ab POSITIVE (NEGATIVE) 06/23/17 10:50 Blood Type O POSITIVE 06/26/17 10:15 Antibody Screen NEGATIVE 06/26/17 10:15 Crossmatch See Detail 06/26/17 10:15 - Physical Exam Vitals and I&O: Vital Signs Temp 97 F 06/27/17 07:54 Pulse 58 06/27/17 10:00 Resp 18 06/27/17 08:00 BP 249/110 06/27/17 09:46 Pulse Ox 99 06/27/17 10:00 Intake & Output 06/26/17 06/27/17 06/27/17 18:59 06:59 18:59 Intake Total 851.223 7992 Balance 462.409 6075 Weight (lbs) 52.481 kg Intake: Intake, IV Amount 963.976 2005 D5-0.9%Ns 1,000 ml @ 80 1000 mls/hr IV .[id number] ED Rx #:[id number] Heparin 25,000 Units In 249.875 D5W 25,000 units In 250 ml @ Titrate IV TITR PRN Rx#:[id number] Oral 400 Blood Product 500 Other 82 Other: # Voids 2 # Bowel Movements 0 Active Medications: Current Medications Acetaminophen (Tylenol) 650 mg PO Q4H PRN PRN Reason: Pain Or Fever above 101 Stop: 08/20/17 19:40 Al Hydrox/Mg Hydrox/Simethicone (Maalox) 30 ml PO Q6H PRN PRN Reason: Dyspepsia Stop: 08/20/17 19:40 Albuterol Sulfate (Albuterol 2.5mg/3ml Neb Ud) 2.5 mg HHN Q2HRT PRN PRN Reason: Shortness of Breath or Wheeze Stop: 08/20/17 19:40 Amlodipine Besylate (Norvasc) 10 mg PO DAILY [facility] Stop: 08/21/17 08:59 Last Admin: 06/27/17 08:28 Dose: Not Given Chlorhexidine Gluconate (Peridex) 15 ml MM 0800,2200 [facility] Stop: 08/26/17 21:59 Enalaprilat (Vasotec) 1.25 mg IVP Q6HR PRN PRN Reason: Sbp Above 170MMHG Stop: 08/22/17 11:59 Last Admin: 06/27/17 02:16 Dose: 1.25 mg Guaifenesin (Robitussin) 200 mg PO Q4HR PRN PRN Reason: Cough or Congestion Stop: 08/20/17 19:40 Haloperidol Decanoate (Haldol Dec) 25 mg IM QMONTH [facility] Stop: 08/23/17 09:59 Last Admin: 06/24/17 09:10 Dose: 25 mg Hydralazine HCl (Apresoline 20 Mg/Ml) 10 mg IV Q6HR PRN PRN Reason: SBP ABOVE 160 Stop: 08/25/17 12:20 Last Admin: 06/27/17 09:46 Dose: 10 mg Dextrose/Sodium Chloride (D5-0.9%Ns) 1,000 mls @ 80 mls/hr IV .[id number] [facility] Stop: 08/20/17 19:44 Last Infusion: 06/27/17 06:13 Dose: Infused Heparin Sodium/Dextrose (Heparin Drip) 25,000 units in 250 mls @ 0 mls/hr IV TITR PRN; Protocol; Titrate PRN Reason: PROTOCOL Stop: 08/21/17 04:00 Last Admin: 06/26/17 09:13 Dose: 750 units/hr, 7.5 mls/hr Iron Dextran 100 mg/ Sodium (Chloride) 102 mls @ 100 mls/hr IV Q24H [facility] Stop: 07/01/17 18:02 Last Admin: 06/26/17 20:30 Dose: Not Given Insulin Aspart (Novolog) 0 units SUBQ ACHS ED PRN Reason: Protocol Stop: 08/21/17 16:29 Last Admin: 06/27/17 06:36 Dose: Not Given Ipratropium [place] (Atrovent Neb 0.5mg/2.5ml) 0.5 mg IH Q2HRT PRN PRN Reason: Shortness of Breath or Wheeze Stop: 08/20/17 19:40 Mirtazapine (Remeron) 15 mg PO HS ED PRN Reason: Protocol Stop: 08/20/17 20:59 Last Admin: 06/26/17 21:42 Dose: 15 mg Miscellaneous (Heparin Drip Per Pharmacy) 1 ea MC PRN ED PRN Reason: Protocol Stop: 08/21/17 08:44 Morphine Sulfate (Morphine) 2 mg IVP Q4H PRN PRN Reason: Pain (Severe) Stop: 08/20/17 19:40 Nitroglycerin (Nitrostat) 0.4 mg SL Q5MIN PRN PRN Reason: Chest Pain Stop: 08/20/17 19:40 Ondansetron HCl (Zofran) 4 mg IV Q8H PRN PRN Reason: Nausea / Vomiting Stop: 08/20/17 19:40 Potassium Chloride (Klor-Con) 20 meq PO DAILY [facility] Stop: 08/21/17 08:59 Last Admin: 06/27/17 08:30 Dose: Not Given General: Other (intubated sedated) HEENT: Atraumatic Neck: Supple Cardiovascular: Regular rate Abdomen: Bowel sounds, Soft, Other (dressing in midline no bleeding) Extremities: Other (right arm hematoma) Assessment/Plan - Problem List Patient Problems: All Active Problems Altered mental status (Acute) R41.82 Failure to thrive (Acute) [id number] Schizophrenia (Acute) F20.9 Anxiety (Chronic) F41.9 Chronic Kidney Disease (Chronic) Hypertension (Chronic) - Assessment Assessment: * DVT * ANEMIA * CKD * 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 * Right arm hematoma Agree with right hemicolectomy start iv iron for anemia of ckd hold heparin, one day monitor hgb and right arm hematoma Nutritional Asmnt/Malnutr-PDOC - Dietary Evaluation Malnutrition Findings (Please click <Entered> for more info): Nutritional Asmnt/Malnutrition Start: 06/22/17 18: 04 Text: Status: Complete Freq: Document 06/22/17 18:04 ERICHARSHAD (Rec: 06/22/17 18:15 LCHARSHAD [email or web address]) Nutritional Asmnt/Malnutrition Patient General Information Nutritional Screening High Risk Consult Diagnosis left lower extremity DVT, severe anemia, CHF, HTN Pertinent Medical Hx/Surgical Hx DM, anemia, renal stones, schizophrenia Subjective Information Pt seen lying in bed, confused at time of visit. Spoke with LULÚ Seay, RN reported pt ate well, consumed 60% of breakfast this morning. Per notes, pt has EGD and colonoscopy scheduled tommorrow. Current Diet Order/ Nutrition Support pureed Pertinent Medications D5-0.9ns, novolog, remeron, kcl Pertinent Labs 06/21 Na 137, K 3.5, Cl 100, BUN 24, Cr 1.3, Glucose 186, AST 10, ALT 6, Alb 2.6 06/22 POC 383 Nutritional Hx/Data Height 1.52 m Height (Calculated Centimeters) 152.4 Current Weight (lbs) 39.009 kg Weight (Calculated Kilograms) 39.0 Weight (Calculated Grams) 36453.9 [place] Body Weight 100 % [place]ina Body Weight 86 Body Mass Index (BMI) 16.7 Weight Status Underweight GI Symptoms GI Symptoms None Last BM none Difficult in: None Skin Integrity/Comment: intact Current %PO Fair (50-74%) Estimated Nutritional Goals Calories/Kcals/Kg 25-30 based on IBW 45kg Kcals Calculated 5926-3063 Protein g/k-1.2 Protein Calculated 45-54 Fluid: ml 1125-1350ml (1ml/kcal) Nutritional Problem 1. Problem Problem altered nutrition related lab values Etiology hx of DM Signs/Symptoms: Glucose 186, POC 383 Malnutrition Alert Protein-Calorie Malnutrition N/A Is there a minimum of two criteria No selected? Query Text:Check all the applicable criteria. A minimum of two criteria are recommended for diagnosis of either severe or non-severe malnutrition. Intervention/Recommendation Comments 1. Recommend CCHO, low sodium diet for optimal glycemic and BP control. RN notified. 2. Monitor PO intake, wt, labs and skin integrity 3. F/U as high risk in 2-3 days, 06/24-06/25 Expected Outcomes/Goals Expected Outcomes/Goals 1. PO intake to meet at least 75% of nutritional needs. 2. Wt stability, skin to remain intact, labs to improve
--- NOTE | 2017-06-27 13:21 | Internal Medicine Prog Note ---
Internal Medicine Subjective - Subjective Service Date: 06/27/17 (patient is now in the ICU orally intubated) Patient is:: awake, verbal, non-interactive Patient Complaints of:: congestion Per staff patient has:: no adverse event, no episodes of fall, poor appetite, agitated, noncompliant, tolerating meds Internal Medicine Objective - Results Result Diagrams: 06/27/17 05:43 06/27/17 05:43 Recent Labs: Laboratory Last Values WBC 9.6 Th/cmm (4.8-10.8) 06/27/17 05:43 RBC 2.98 Mil/cmm (3.80-5.20) L 06/27/17 05:43 Hgb 8.0 gm/dL (12-16) L 06/27/17 05:43 Hct 24.9 % (41.0-60) L 06/27/17 05:43 MCV 83.6 fl (81-100) 06/27/17 05:43 MCH 26.8 pg (27.0-31.0) L 06/27/17 05:43 MCHC Differential 32.1 pg (28.0-36.0) 06/27/17 05:43 RDW 13.6 % (11.5-20.0) 06/27/17 05:43 Plt Count 400 Th/cmm (150-400) 06/27/17 05:43 MPV 7.0 fl 06/27/17 05:43 Neutrophils % 66.5 % (40.0-80.0) 06/27/17 05:43 Lymphocytes % 25.7 % (20.0-50.0) 06/27/17 05:43 Monocytes % 5.9 % (2.0-10.0) 06/27/17 05:43 Eosinophils % 1.4 % (0.0-5.0) 06/27/17 05:43 Basophils % 0.5 % (0.0-2.0) 06/27/17 05:43 PT 10.9 SECONDS (9.5-11.5) 06/27/17 05:43 INR 1.05 (0.5-1.4) 06/27/17 05:43 PTT (Actin FS) 25.4 SECONDS (26.0-38.0) L 06/27/17 05:43 D-Dimer 3600 ng/mL (100-400) H 06/21/17 18:20 Sodium 139 mEq/L (136-145) 06/27/17 05:43 Potassium 3.3 mEq/L (3.5-5.1) L 06/27/17 05:43 Chloride 107 mEq/L (98-107) 06/27/17 05:43 Carbon Dioxide 27.7 mEq/L (21.0-31.0) 06/27/17 05:43 Anion Gap 7.6 (7.0-16.0) 06/27/17 05:43 BUN 9 mg/dL (7-25) 06/27/17 05:43 Creatinine 1.1 mg/dL (0.6-1.2) 06/27/17 05:43 Est GFR ( Amer) TNP 06/27/17 05:43 Est GFR (Non-Af Amer) TNP 06/27/17 05:43 BUN/Creatinine Ratio 8.2 06/27/17 05:43 Glucose 178 mg/dL (70-105) H 06/27/17 05:43 POC Glucose 163 MG/DL (70 - 105) H 06/27/17 06:24 Hemoglobin A1c % 11.7 % (4.0-6.0) H 06/21/17 18:20 Calcium 8.2 mg/dL (8.6-10.3) L 06/27/17 05:43 Iron 19 ug/dL (27-139) L 06/22/17 05:20 TIBC 176 ug/dL (250-450) L 06/22/17 05:20 Iron Saturation 11 % (15-55) L 06/22/17 05:20 Unsaturated IBC 157 ug/dL (118-369) 06/22/17 05:20 Ferritin 164 ng/mL (15-150) H 06/22/17 05:20 Total Bilirubin 0.3 mg/dL (0.3-1.0) 06/27/17 05:43 AST 22 U/L (13-39) 06/27/17 05:43 ALT 16 U/L (7-52) 06/27/17 05:43 Alkaline Phosphatase 71 U/L (34-104) 06/27/17 05:43 Ammonia 36 umol/L (16-53) 06/22/17 05:20 Creatine Kinase 39 U/L (30-223) 06/21/17 18:20 Troponin I 0.01 ng/mL (0.01-0.05) 06/21/17 18:20 B-Natriuretic Peptide 122.0 pg/mL (5.0-100.0) H 06/21/17 18:20 Total Protein 5.9 gm/dL (6.0-8.3) L 06/27/17 05:43 Albumin 2.4 gm/dL (3.7-5.3) L 06/27/17 05:43 Globulin 3.5 gm/dL 06/27/17 05:43 Albumin/Globulin Ratio 0.7 (1.0-1.8) L 06/27/17 05:43 Triglycerides 104 mg/dL (<150) 06/21/17 18:20 Cholesterol 129 mg/dL (<200) 06/21/17 18:20 LDL Cholesterol Direct 65 mg/dL (75-193) L 06/21/17 18:20 HDL Cholesterol 43 mg/dL (23-92) 06/21/17 18:20 Vitamin B12 621 pg/mL (232-1245) 06/22/17 05:20 Folic Acid 14.7 ng/mL (>3.0) 06/22/17 05:20 Helicobacter pylori Ab POSITIVE (NEGATIVE) 06/23/17 10:50 Blood Type O POSITIVE 06/26/17 10:15 Antibody Screen NEGATIVE 06/26/17 10:15 Crossmatch See Detail 06/26/17 10:15 - Physical Exam Vitals and I&O: Vital Signs Temp 97 F 06/27/17 07:54 Pulse 79 06/27/17 13:02 Resp 18 06/27/17 08:00 BP 249/110 06/27/17 09:46 Pulse Ox 98 06/27/17 13:02 Intake & Output 06/26/17 06/27/17 06/27/17 18:59 06:59 18:59 Intake Total 745.791 7668 Balance 764.566 1915 Weight (lbs) 115 lb 11.2 oz Intake: Intake, IV Amount 435.264 0352 D5-0.9%Ns 1,000 ml @ 80 1000 mls/hr IV .[id number] ED Rx #:[id number] Heparin 25,000 Units In 249.875 D5W 25,000 units In 250 ml @ Titrate IV TITR PRN Rx#:[id number] Oral 400 Blood Product 500 Other 82 Other: # Voids 2 # Bowel Movements 0 Active Medications: Current Medications Acetaminophen (Tylenol) 650 mg PO Q4H PRN PRN Reason: Pain Or Fever above 101 Stop: 08/20/17 19:40 Al Hydrox/Mg Hydrox/Simethicone (Maalox) 30 ml PO Q6H PRN PRN Reason: Dyspepsia Stop: 08/20/17 19:40 Albuterol Sulfate (Albuterol 2.5mg/3ml Neb Ud) 2.5 mg HHN Q2HRT PRN PRN Reason: Shortness of Breath or Wheeze Stop: 08/20/17 19:40 Amlodipine Besylate (Norvasc) 10 mg PO DAILY [facility] Stop: 08/21/17 08:59 Last Admin: 06/27/17 08:28 Dose: Not Given Chlorhexidine Gluconate (Peridex) 15 ml MM 0800,2200 [facility] Stop: 08/26/17 21:59 Enalaprilat (Vasotec) 1.25 mg IVP Q6HR PRN PRN Reason: Sbp Above 170MMHG Stop: 08/22/17 11:59 Last Admin: 06/27/17 02:16 Dose: 1.25 mg Guaifenesin (Robitussin) 200 mg PO Q4HR PRN PRN Reason: Cough or Congestion Stop: 08/20/17 19:40 Haloperidol Decanoate (Haldol Dec) 25 mg IM QMONTH [facility] Stop: 08/23/17 09:59 Last Admin: 06/24/17 09:10 Dose: 25 mg Hydralazine HCl (Apresoline 20 Mg/Ml) 10 mg IV Q6HR PRN PRN Reason: SBP ABOVE 160 Stop: 08/25/17 12:20 Last Admin: 06/27/17 09:46 Dose: 10 mg Dextrose/Sodium Chloride (D5-0.9%Ns) 1,000 mls @ 80 mls/hr IV .[id number] [facility] Stop: 08/20/17 19:44 Last Infusion: 06/27/17 06:13 Dose: Infused Iron Dextran 100 mg/ Sodium (Chloride) 102 mls @ 100 mls/hr IV Q24H ED Stop: 07/01/17 18:02 Last Admin: 06/26/17 20:30 Dose: Not Given Potassium Chloride 40 meq/Lidocaine HCl 25 mg/ Sodium Chloride 272.5 mls @ 68 mls/hr IV X1 ONE Stop: 06/27/17 17:30 Insulin Aspart (Novolog) 0 units SUBQ ACHS ED PRN Reason: Protocol Stop: 08/21/17 16:29 Last Admin: 06/27/17 12:18 Dose: 2 units Ipratropium [place] (Atrovent Neb 0.5mg/2.5ml) 0.5 mg IH Q2HRT PRN PRN Reason: Shortness of Breath or Wheeze Stop: 08/20/17 19:40 Mirtazapine (Remeron) 15 mg PO HS ED PRN Reason: Protocol Stop: 08/20/17 20:59 Last Admin: 06/26/17 21:42 Dose: 15 mg Miscellaneous (Heparin Drip Per Pharmacy) 1 ea MC PRN ED PRN Reason: Protocol Stop: 08/21/17 08:44 Morphine Sulfate (Morphine) 2 mg IVP Q3H PRN PRN Reason: Pain (Severe) Stop: 08/20/17 19:40 Nitroglycerin (Nitrostat) 0.4 mg SL Q5MIN PRN PRN Reason: Chest Pain Stop: 08/20/17 19:40 Ondansetron HCl (Zofran) 4 mg IV Q8H PRN PRN Reason: Nausea / Vomiting Stop: 08/20/17 19:40 Potassium Chloride (Klor-Con) 20 meq PO DAILY [facility] Stop: 08/21/17 08:59 Last Admin: 06/27/17 08:30 Dose: Not Given General: weak, alert HEENT: NC/AT, PERRLA Neck: Supple Lungs: CTAB Cardiovascular: RRR, Normal S1, Normal S2, without murmur Abdomen: soft, non-tender, non-distended, positive bowel sound Extremities: excoriation Neurological: alert - Procedures Procedures: Procedures Procedure Code Date PARTIAL REMOVAL OF COLON 71813 06/21/17 RESECTION OF RIGHT LARGE INTESTINE, OPEN APPROACH [id number] 06/21/17 Internal Medicine Assmt/Plan - Assessment Assessment: acute dvt cecal mass s/p exploratory lap right right hemicolectomy severe anemia dm2 schizophrenia htn psychosis hypokalemia - Plan Plan: continue icu monitoring vent support monitor electrolytes follow up labs in am will follow python consultant recommendations Nutritional Asmnt/Malnutr-PDOC - Dietary Evaluation Malnutrition Findings (Please click <Entered> for more info): Nutritional Asmnt/Malnutrition Start: 06/22/17 18: 04 Text: Status: Complete Freq: Document 06/22/17 18:04 ERICHARSHAD (Rec: 06/22/17 18:15 LCHARSHAD [email or web address]) Nutritional Asmnt/Malnutrition Patient General Information Nutritional Screening High Risk Consult Diagnosis left lower extremity DVT, severe anemia, CHF, HTN Pertinent Medical Hx/Surgical Hx DM, anemia, renal stones, schizophrenia Subjective Information Pt seen lying in bed, confused at time of visit. Spoke with LULÚ Seay, RN reported pt ate well, consumed 60% of breakfast this morning. Per notes, pt has EGD and colonoscopy scheduled tommorrow. Current Diet Order/ Nutrition Support pureed Pertinent Medications D5-0.9ns, novolog, remeron, kcl Pertinent Labs 06/21 Na 137, K 3.5, Cl 100, BUN 24, Cr 1.3, Glucose 186, AST 10, ALT 6, Alb 2.6 06/22 POC 383 Nutritional Hx/Data Height 5 ft Height (Calculated Centimeters) 152.4 Current Weight (lbs) 86 lb Weight (Calculated Kilograms) 39.0 Weight (Calculated Grams) 97663.9 [place] Body Weight 100 % [place] Body Weight 86 Body Mass Index (BMI) 16.7 Weight Status Underweight GI Symptoms GI Symptoms None Last BM none Difficult in: None Skin Integrity/Comment: intact Current %PO Fair (50-74%) Estimated Nutritional Goals Calories/Kcals/Kg 25-30 based on IBW 45kg Kcals Calculated 9055-8419 Protein g/k-1.2 Protein Calculated 45-54 Fluid: ml 1125-1350ml (1ml/kcal) Nutritional Problem 1. Problem Problem altered nutrition related lab values Etiology hx of DM Signs/Symptoms: Glucose 186, POC 383 Malnutrition Alert Protein-Calorie Malnutrition N/A Is there a minimum of two criteria No selected? Query Text:Check all the applicable criteria. A minimum of two criteria are recommended for diagnosis of either severe or non-severe malnutrition. Intervention/Recommendation Comments 1. Recommend CCHO, low sodium diet for optimal glycemic and BP control. RN notified. 2. Monitor PO intake, wt, labs and skin integrity 3. F/U as high risk in 2-3 days, 06/24-06/25 Expected Outcomes/Goals Expected Outcomes/Goals 1. PO intake to meet at least 75% of nutritional needs. 2. Wt stability, skin to remain intact, labs to improve
[2017-06-27] MEDS ORDERED: Potassium Chloride 40 MEQ, Lidocaine 1% 20mL Vial 25 MG in Sodium Chloride 0.9% 250 ML IV ONE (13:30)
--- NOTE | 2017-06-27 13:43 | Diagnostic Imaging Report ---
Portable chest x-ray HISTORY: Increased shortness of breath, status post intubation, nasogastric tube placement Compared with a prior exam of June 21, 2017, the periphery of the right lower chest. [id number]. An endotracheal tube tip is approximately 2.5 cm above the michael. Nasogastric tube extends into the region of the stomach. Increased density is noted over the left lower hemithorax. Exact etiology uncertain. Infiltrate cannot be excluded. There is an air collection in the left upper abdomen. Exact etiology uncertain. Free intraperitoneal air cannot be excluded. Clinical correlation is needed. If necessary, upright or decubitus view radiographs of the abdomen or CT scan would provide additional assessment. IMPRESSION: 1. Line and tube placements as noted above 2. Air collection in the left upper abdomen. Exact etiology uncertain. Free intraperitoneal air cannot be excluded. Additional abdominal radiographs as noted above or CT scan would provide clarification is needed. 3. Slight increased density within the left lower lobe. Infiltrate cannot be excluded.
--- NOTE | 2017-06-27 16:26 | Operative Report ---
DATE OF SURGERY: 06/27/2017 PREOPERATIVE DIAGNOSES: 1. 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 2. Dementia. 3. DVT. 4. Schizophrenia. 5. Chronic kidney disease. POSTOPERATIVE DIAGNOSES: 1. 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 2. Dementia. 3. DVT. 4. Schizophrenia. 5. Chronic kidney disease. OPERATION DONE: Exploratory laparotomy with: 1. Right hemicolectomy. 2. Mobilization of the hepatic flexure. SURGEON: Willie Maher M.D. SOAKERS SUPERVISOR: Dr. Escobar. ANESTHESIA: General. ANESTHESIOLOGIST: Amina Cornejo M.D. ESTIMATED BLOOD LOSS: 20 mL. INDICATIONS FOR SURGERY: The patient with lower GI bleeding. Hemoglobin on admission was 6.8. The patient received 2 units of packed cells. The colonoscopy showed 2 large masses in the cecum with high grade dysplasia on pathology. The patient has no family and 2 physicians signed consent for medical necessity. OPERATIVE FINDINGS: The villous adenomas were difficult to palpate because of the large amount of stools present in the whole colon. PROCEDURE: The patient was given general anesthesia. The abdomen was prepped with ChloraPrep and draped in appropriate manner. Midline incision was made. Bleeders were coagulated. The abdominal cavity was entered. No adhesions were noted. With retractors in place, the colon was run but because of the large amount of stools present, it was difficult to palpate the polyps. There was extensive diverticular disease in the sigmoid. The appendix was found to be adhered to the posterior wall of the peritoneum probably from recurrent infections in the past. DESCRIPTION OF PROCEDURE: The patient was given general anesthesia. The abdomen was prepped with ChloraPrep and draped in appropriate manner. An incision was made and the abdomen entered. The cecum was identified and freed from the attachment to the lateral wall, but in the area of the appendix because of likely previous inflammation and infection, this was adhered. Those freed out. The right side of the colon was transected following mobilization of the hepatic flexure. A CHIDI instrument was used. The distal portion of the ileum was transected with a CHIDI instrument and the mesentery between the two was then transected utilizing impact instrument: A [id number] anastomosis was performed utilizing CHIDI instrument and the open end was closed with a CHIDI as well. In the process. Cultures were taken of the colon and Betadine was used to sterilize the transected areas. The staple lines were reinforced with running suture of 3-0 silk, we extended to close the mesentery. Following satisfactory hemostasis and correct sponge count, the incision was closed with running suture of #1 PDS. The fascia and the skin and subcutaneous tissues were closed with 4-0 Vicryl and the skin with subcuticular suture of 4-0 Vicryl. The patient will be sent to ICU for better followup as well as monitoring of the hemoglobin and hematocrit. JOB# [id number] BERE
[2017-06-27] MEDS: NS 0.9% IV SCH (17:35)
[2017-06-27] MEDS: IRON DEXTRAN IV SCH (17:35)
[2017-06-27] MEDS: Chlorhexidine Gluconate 0.12% 480mL Bottle MM SCH (20:59)
[2017-06-27] MEDS: Morphine Sulfate 2 mg/mL 1mL Syr IVP PRN (21:00)
[2017-06-28] MEDS: Morphine Sulfate 2 mg/mL 1mL Syr IVP PRN ×4 (00:19→21:32)
[2017-06-28 04:44] LABS: INR 1.12 (0.5-1.4); PROTHROMBIN TIME (TEST) 11.8 SECONDS (9.5-11.5)
[2017-06-28 04:55] LABS: % BASOPHILS 0.1 % (0.0-2.0); % EOSINOPHILS 0.1 % (0.0-5.0); % LYMPHOCYTES 12.8 % (20.0-50.0); % MONOCYTES 3.5 % (2.0-10.0); % NEUTROPHILS 83.5 % (40.0-80.0); ALB/GLOB RATIO 0.7 (1.0-1.8); ALBUMIN 2.3 gm/dL (3.7-5.3); ALKALINE PHOSPHATASE 66 U/L (34-104); ANION GAP 11.3 (7.0-16.0); BILIRUBIN,TOTAL 0.2 mg/dL (0.3-1.0); BUN - UREA NITROGEN 14 mg/dL (7-25); CALCIUM SERUM 8.3 mg/dL (8.6-10.3); CHLORIDE 110 mEq/L (98-107); CREATININE - SERUM 1.5 mg/dL (0.6-1.2); GLUCOSE 212 mg/dL (70-105); HEMATOCRIT 25.3 % (41.0-60); HEMOGLOBIN 8.3 gm/dL (12-16); LYMPHOCYTE ABSOLUTE 1.6 Th/cmm (1.5-3.0); MAGNESIUM 1.4 mg/dL (1.9-2.7); MEAN CELL VOLUME 82.8 fl (81-100); MEAN CORPUSCULAR HGB CONC 32.6 pg (28.0-36.0); MEAN PLATELET VOLUME 7.7 fl; MONOCYTE ABSOLUTE 0.4 Th/cmm (0.3-1.0); NEUTROPHILE ABSOLUTE 10.6 Th/cmm (1.8-8.0); PLATELET COUNT 463 Th/cmm (150-400); POTASSIUM SERUM 4.3 mEq/L (3.5-5.1); RED BLOOD COUNT 3.06 Mil/cmm (3.80-5.20); RED CELL DISTRIBUTION WIDTH 14.4 % (11.5-20.0); SGOT 24 U/L (13-39); SGPT/ALT 19 U/L (7-52); SODIUM SERUM 141 mEq/L (136-145); TOTAL PROTEIN,SERUM 5.6 gm/dL (6.0-8.3)
[2017-06-28 05:28] LABS: WHITE BLOOD COUNT 12.6 Th/cmm (4.8-10.8)
[2017-06-28] MEDS: D5-0.9%NS 1,000 ML IV SCH ×2 (06:13→21:31)
[2017-06-28] MEDS: INSULIN ASPART, RECOMBINANT 100 UNITS/ML SUBQ SCH ×4 (07:02→21:50)
[2017-06-28 07:57] LABS: pH 7.44 (7.35-7.45)
--- NOTE | 2017-06-28 08:31 | Diagnostic Imaging Report ---
CHEST X-RAY: AP view INDICATION: Shortness of breath COMPARISON: 06/27/2017 FINDINGS: ET tube is seen with tip 5 cm above the michael at the level of the clavicles. NG tube is in the stomach. Improving and resolving left effusion and left basal atelectasis versus infiltrate is noted. Heart size is normal. IMPRESSION: ET tube with tip in the level of the clavicles 5 cm above the michael. Improving and resolving left basal density which may have been a small left effusion and possible atelectasis or infiltrate in this region.
--- NOTE | 2017-06-28 08:48 | GI Progress Note ---
Subjective - Review of Systems Service Date: 06/28/17 Subjective: Pt underwent R hemicolectomy on 06/27, now in the ICU intubated. Objective - Results Result Diagrams: 06/28/17 04:10 06/28/17 04:10 Recent Labs: Laboratory Last Values WBC 12.6 Th/cmm (4.8-10.8) H D 06/28/17 04:10 RBC 3.06 Mil/cmm (3.80-5.20) L 06/28/17 04:10 Hgb 8.3 gm/dL (12-16) L 06/28/17 04:10 Hct 25.3 % (41.0-60) L 06/28/17 04:10 MCV 82.8 fl (81-100) 06/28/17 04:10 MCH 27.0 pg (27.0-31.0) 06/28/17 04:10 MCHC Differential 32.6 pg (28.0-36.0) 06/28/17 04:10 RDW 14.4 % (11.5-20.0) 06/28/17 04:10 Plt Count 463 Th/cmm (150-400) H 06/28/17 04:10 MPV 7.7 fl 06/28/17 04:10 Neutrophils % 83.5 % (40.0-80.0) H 06/28/17 04:10 Lymphocytes % 12.8 % (20.0-50.0) L 06/28/17 04:10 Monocytes % 3.5 % (2.0-10.0) 06/28/17 04:10 Eosinophils % 0.1 % (0.0-5.0) 06/28/17 04:10 Basophils % 0.1 % (0.0-2.0) 06/28/17 04:10 PT 11.8 SECONDS (9.5-11.5) H 06/28/17 04:10 INR 1.12 (0.5-1.4) 06/28/17 04:10 PTT (Actin FS) 26.7 SECONDS (26.0-38.0) 06/28/17 04:10 D-Dimer 3600 ng/mL (100-400) H 06/21/17 18:20 Specimen Source Arterial 06/28/17 07:48 Sample Site LB 06/28/17 07:48 pH 7.44 (7.35-7.45) 06/28/17 07:48 pCO2 36.0 mmHg (35.0-45.0) 06/28/17 07:48 pO2 89.0 mmHg (80.0-100.0) 06/28/17 07:48 HCO3 25.4 mEq/L (20.0-26.0) 06/28/17 07:48 Base Excess 0.6 mEq/L (-3.0-3.0) 06/28/17 07:48 O2 Saturation 97.0 % (92.0-100.0) 06/28/17 07:48 Vent Rate 10 06/28/17 07:48 Inspired O2 40 06/28/17 07:48 Tidal Volume 500 06/28/17 07:48 Critical Value PW 06/28/17 07:48 Sodium 141 mEq/L (136-145) 06/28/17 04:10 Potassium 4.3 mEq/L (3.5-5.1) 06/28/17 04:10 Chloride 110 mEq/L (98-107) H 06/28/17 04:10 Carbon Dioxide 24.0 mEq/L (21.0-31.0) 06/28/17 04:10 Anion Gap 11.3 (7.0-16.0) 06/28/17 04:10 BUN 14 mg/dL (7-25) 06/28/17 04:10 Creatinine 1.5 mg/dL (0.6-1.2) H 06/28/17 04:10 Est GFR ( Amer) [facility] 06/28/17 04:10 Est GFR (Non-Af Amer) [facility] 06/28/17 04:10 BUN/Creatinine Ratio 9.3 06/28/17 04:10 Glucose 212 mg/dL (70-105) H 06/28/17 04:10 POC Glucose 163 MG/DL (70 - 105) H 06/27/17 06:24 Hemoglobin A1c % 11.7 % (4.0-6.0) H 06/21/17 18:20 Calcium 8.3 mg/dL (8.6-10.3) L 06/28/17 04:10 Magnesium 1.4 mg/dL (1.9-2.7) L 06/28/17 04:10 Iron 19 ug/dL (27-139) L 06/22/17 05:20 TIBC 176 ug/dL (250-450) L 06/22/17 05:20 Iron Saturation 11 % (15-55) L 06/22/17 05:20 Unsaturated IBC 157 ug/dL (118-369) 06/22/17 05:20 Ferritin 164 ng/mL (15-150) H 06/22/17 05:20 Total Bilirubin 0.2 mg/dL (0.3-1.0) L 06/28/17 04:10 AST 24 U/L (13-39) 06/28/17 04:10 ALT 19 U/L (7-52) 06/28/17 04:10 Alkaline Phosphatase 66 U/L (34-104) 06/28/17 04:10 Ammonia 36 umol/L (16-53) 06/22/17 05:20 Creatine Kinase 39 U/L (30-223) 06/21/17 18:20 Troponin I 0.01 ng/mL (0.01-0.05) 06/21/17 18:20 B-Natriuretic Peptide 115.0 pg/mL (5.0-100.0) H 06/28/17 04:10 Total Protein 5.6 gm/dL (6.0-8.3) L 06/28/17 04:10 Albumin 2.3 gm/dL (3.7-5.3) L 06/28/17 04:10 Globulin 3.3 gm/dL 06/28/17 04:10 Albumin/Globulin Ratio 0.7 (1.0-1.8) L 06/28/17 04:10 Triglycerides 104 mg/dL (<150) 06/21/17 18:20 Cholesterol 129 mg/dL (<200) 06/21/17 18:20 LDL Cholesterol Direct 65 mg/dL (75-193) L 06/21/17 18:20 HDL Cholesterol 43 mg/dL (23-92) 06/21/17 18:20 Vitamin B12 621 pg/mL (232-1245) 06/22/17 05:20 Folic Acid 14.7 ng/mL (>3.0) 06/22/17 05:20 Helicobacter pylori Ab POSITIVE (NEGATIVE) 06/23/17 10:50 Blood Type O POSITIVE 06/26/17 10:15 Antibody Screen NEGATIVE 06/26/17 10:15 Crossmatch See Detail 06/26/17 10:15 - Physical Exam Vitals and I&O: Vital Signs Temp 97.5 F 06/28/17 04:00 Pulse 129 06/28/17 07:12 Resp 12 06/28/17 06:00 BP 197/98 06/28/17 06:10 Pulse Ox 98 06/28/17 07:12 Intake & Output 06/27/17 06/28/17 06/28/17 18:59 06:59 18:59 Intake Total 102 Output Total 350 250 Balance -350 -148 Weight (lbs) 52.163 kg 46.38 kg Intake: Intake, IV Amount 102 Iron Dextran Complex 100 102 mg In Sodium Chloride 0.9 % 100 ml @ 100 mls/hr IV Q24H [facility] Rx#:[id number] Output: Urine 350 250 Active Medications: Current Medications Acetaminophen (Tylenol) 650 mg PO Q4H PRN PRN Reason: Pain Or Fever above 101 Stop: 08/20/17 19:40 Al Hydrox/Mg Hydrox/Simethicone (Maalox) 30 ml PO Q6H PRN PRN Reason: Dyspepsia Stop: 08/20/17 19:40 Albuterol Sulfate (Albuterol 2.5mg/3ml Neb Ud) 2.5 mg HHN Q2HRT PRN PRN Reason: Shortness of Breath or Wheeze Stop: 08/20/17 19:40 Amlodipine Besylate (Norvasc) 10 mg PO DAILY [facility] Stop: 08/21/17 08:59 Last Admin: 06/27/17 08:28 Dose: Not Given Chlorhexidine Gluconate (Peridex) 15 ml MM 0800,2200 [facility] Stop: 08/26/17 21:59 Last Admin: 06/27/17 20:59 Dose: 15 ml Enalaprilat (Vasotec) 1.25 mg IVP Q6HR PRN PRN Reason: Sbp Above 170MMHG Stop: 08/22/17 11:59 Last Admin: 06/28/17 00:19 Dose: 1.25 mg Guaifenesin (Robitussin) 200 mg PO Q4HR PRN PRN Reason: Cough or Congestion Stop: 03/24/18 19:40 Haloperidol Decanoate (Haldol Dec) 25 mg IM QMONTH [facility] Stop: 08/23/17 09:59 Last Admin: 06/24/17 09:10 Dose: 25 mg Hydralazine HCl (Apresoline 20 Mg/Ml) 10 mg IV Q6HR PRN PRN Reason: SBP ABOVE 160 Stop: 08/25/17 12:20 Last Admin: 06/28/17 06:10 Dose: 10 mg Dextrose/Sodium Chloride (D5-0.9%Ns) 1,000 mls @ 80 mls/hr IV .[id number] [facility] Stop: 08/20/17 19:44 Last Admin: 06/28/17 06:13 Dose: 80 mls/hr Iron Dextran 100 mg/ Sodium (Chloride) 102 mls @ 100 mls/hr IV Q24H [facility] Stop: 07/01/17 18:02 Last Infusion: 06/27/17 19:00 Dose: Infused Insulin Aspart (Novolog) 0 units SUBQ ACHS [facility] PRN Reason: Protocol Stop: 08/21/17 16:29 Last Admin: 06/28/17 07:02 Dose: 2 units Ipratropium [place] (Atrovent Neb 0.5mg/2.5ml) 0.5 mg IH Q2HRT PRN PRN Reason: Shortness of Breath or Wheeze Stop: 08/20/17 19:40 Mirtazapine (Remeron) 15 mg PO HS [facility] PRN Reason: Protocol Stop: 08/20/17 20:59 Last Admin: 06/27/17 22:03 Dose: Not Given Miscellaneous (Heparin Drip Per Pharmacy) 1 ea MC PRN [facility] PRN Reason: Protocol Stop: 08/21/17 08:44 Morphine Sulfate (Morphine) 2 mg IVP Q3H PRN PRN Reason: Pain (Severe) Stop: 08/20/17 19:40 Last Admin: 06/28/17 05:14 Dose: 2 mg Nitroglycerin (Nitrostat) 0.4 mg SL Q5MIN PRN PRN Reason: Chest Pain Stop: 08/20/17 19:40 Ondansetron HCl (Zofran) 4 mg IV Q8H PRN PRN Reason: Nausea / Vomiting Stop: 08/20/17 19:40 Potassium Chloride (Klor-Con) 20 meq PO DAILY [facility] Stop: 08/21/17 08:59 Last Admin: 06/27/17 08:30 Dose: Not Given General: Other (intubated sedated) HEENT: Atraumatic Neck: Supple Cardiovascular: Regular rate Abdomen: Bowel sounds, Soft, Other (dressing in midline no bleeding) Extremities: Other (right arm hematoma) - Procedures Procedures: Procedures Procedure Code Date PARTIAL REMOVAL OF COLON 28210 06/21/17 RESECTION OF RIGHT LARGE INTESTINE, OPEN APPROACH [id number] 06/21/17 Assessment/Plan - Problem List Patient Problems: All Active Problems Altered mental status (Acute) R41.82 Failure to thrive (Acute) [id number] Schizophrenia (Acute) F20.9 Anxiety (Chronic) F41.9 Chronic Kidney Disease (Chronic) Hypertension (Chronic) - Assessment Assessment: # Anemia # Colon mass vs polyp # Diverticulosis EGD on 06/23 showed mild gastritis. Colonoscopy revealed 3-4cm cecal lesion and 2cm ascending colon polyp. Cecal lesion endoscopically looked like villous adenoma, and ascending colon may be adenoma vs villous adenoma. 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 These lesions could very well be contributing to her chronic anemia, although certainly there is anemia of chronic disease Now s/p R hemicolectomy on 06/27, tolerated surgery well. Plan: - follow up final path from R colon lesions. Will need another colonoscopy in 3 years if there is no cancer. If cancer, repeat in 1 year - hopefully will be extubated today - appreciate hematology recs - cont iron supplementation Thank you for allowing me to participate in this patient's care, GI to see intermittently. Please call with any questions
[2017-06-28] MEDS: Potassium Chloride 20 mEq ER Tab PO SCH (08:58)
[2017-06-28] MEDS: Chlorhexidine Gluconate 0.12% 480mL Bottle MM SCH ×2 (10:00→22:00)
[2017-06-28 11:08] LABS: ALLEN TEST Positive; pH 7.44 (7.35-7.45)
--- NOTE | 2017-06-28 11:36 | General Progress Note ---
Subjective - Review of Systems Service Date: 06/28/17 Events since last encounter: POD # 1 labs noted VS stable, for extubation urine output good Objective - Results Result Diagrams: 06/28/17 04:10 06/28/17 04:10 Recent Labs: Laboratory Last Values WBC 12.6 Th/cmm (4.8-10.8) H D 06/28/17 04:10 RBC 3.06 Mil/cmm (3.80-5.20) L 06/28/17 04:10 Hgb 8.3 gm/dL (12-16) L 06/28/17 04:10 Hct 25.3 % (41.0-60) L 06/28/17 04:10 MCV 82.8 fl (81-100) 06/28/17 04:10 MCH 27.0 pg (27.0-31.0) 06/28/17 04:10 MCHC Differential 32.6 pg (28.0-36.0) 06/28/17 04:10 RDW 14.4 % (11.5-20.0) 06/28/17 04:10 Plt Count 463 Th/cmm (150-400) H 06/28/17 04:10 MPV 7.7 fl 06/28/17 04:10 Neutrophils % 83.5 % (40.0-80.0) H 06/28/17 04:10 Lymphocytes % 12.8 % (20.0-50.0) L 06/28/17 04:10 Monocytes % 3.5 % (2.0-10.0) 06/28/17 04:10 Eosinophils % 0.1 % (0.0-5.0) 06/28/17 04:10 Basophils % 0.1 % (0.0-2.0) 06/28/17 04:10 PT 11.8 SECONDS (9.5-11.5) H 06/28/17 04:10 INR 1.12 (0.5-1.4) 06/28/17 04:10 PTT (Actin FS) 26.7 SECONDS (26.0-38.0) 06/28/17 04:10 D-Dimer 3600 ng/mL (100-400) H 06/21/17 18:20 Specimen Source Arterial 06/28/17 10:55 Sample Site Right Radial 06/28/17 10:55 pH 7.44 (7.35-7.45) 06/28/17 10:55 pCO2 36.0 mmHg (35.0-45.0) 06/28/17 10:55 pO2 100.0 mmHg (80.0-100.0) 06/28/17 10:55 HCO3 25.4 mEq/L (20.0-26.0) 06/28/17 10:55 Base Excess 0.6 mEq/L (-3.0-3.0) 06/28/17 10:55 O2 Saturation 98.0 % (92.0-100.0) 06/28/17 10:55 Rashid Test Positive 06/28/17 10:55 Vent Rate N/A 06/28/17 10:55 Inspired O2 28 06/28/17 10:55 Tidal Volume N/A 06/28/17 10:55 PEEP N/A 06/28/17 10:55 Pressure (ins/psv/peep) N/A 06/28/17 10:55 Critical Value DM 06/28/17 10:55 Sodium 141 mEq/L (136-145) 06/28/17 04:10 Potassium 4.3 mEq/L (3.5-5.1) 06/28/17 04:10 Chloride 110 mEq/L (98-107) H 06/28/17 04:10 Carbon Dioxide 24.0 mEq/L (21.0-31.0) 06/28/17 04:10 Anion Gap 11.3 (7.0-16.0) 06/28/17 04:10 BUN 14 mg/dL (7-25) 06/28/17 04:10 Creatinine 1.5 mg/dL (0.6-1.2) H 06/28/17 04:10 Est GFR ( Amer) TNP 06/28/17 04:10 Est GFR (Non-Af Amer) TNP 06/28/17 04:10 BUN/Creatinine Ratio 9.3 06/28/17 04:10 Glucose 212 mg/dL (70-105) H 06/28/17 04:10 POC Glucose 203 MG/DL (70-105) H 06/28/17 06:52 Hemoglobin A1c % 11.7 % (4.0-6.0) H 06/21/17 18:20 Calcium 8.3 mg/dL (8.6-10.3) L 06/28/17 04:10 Magnesium 1.4 mg/dL (1.9-2.7) L 06/28/17 04:10 Iron 19 ug/dL (27-139) L 06/22/17 05:20 TIBC 176 ug/dL (250-450) L 06/22/17 05:20 Iron Saturation 11 % (15-55) L 06/22/17 05:20 Unsaturated IBC 157 ug/dL (118-369) 06/22/17 05:20 Ferritin 164 ng/mL (15-150) H 06/22/17 05:20 Total Bilirubin 0.2 mg/dL (0.3-1.0) L 06/28/17 04:10 AST 24 U/L (13-39) 06/28/17 04:10 ALT 19 U/L (7-52) 06/28/17 04:10 Alkaline Phosphatase 66 U/L (34-104) 06/28/17 04:10 Ammonia 36 umol/L (16-53) 06/22/17 05:20 Creatine Kinase 39 U/L (30-223) 06/21/17 18:20 Troponin I 0.01 ng/mL (0.01-0.05) 06/21/17 18:20 B-Natriuretic Peptide 115.0 pg/mL (5.0-100.0) H 06/28/17 04:10 Total Protein 5.6 gm/dL (6.0-8.3) L 06/28/17 04:10 Albumin 2.3 gm/dL (3.7-5.3) L 06/28/17 04:10 Globulin 3.3 gm/dL 06/28/17 04:10 Albumin/Globulin Ratio 0.7 (1.0-1.8) L 06/28/17 04:10 Triglycerides 104 mg/dL (<150) 06/21/17 18:20 Cholesterol 129 mg/dL (<200) 06/21/17 18:20 LDL Cholesterol Direct 65 mg/dL (75-193) L 06/21/17 18:20 HDL Cholesterol 43 mg/dL (23-92) 06/21/17 18:20 Vitamin B12 621 pg/mL (232-1245) 06/22/17 05:20 Folic Acid 14.7 ng/mL (>3.0) 06/22/17 05:20 Helicobacter pylori Ab POSITIVE (NEGATIVE) 06/23/17 10:50 Blood Type O POSITIVE 06/26/17 10:15 Antibody Screen NEGATIVE 06/26/17 10:15 Crossmatch See Detail 06/26/17 10:15 - Physical Exam Vitals and I&O: Vital Signs Temp 98.5 F 06/28/17 07:00 Pulse 101 06/28/17 09:53 Resp 20 06/28/17 07:00 BP 160/74 06/28/17 09:53 Pulse Ox 98 06/28/17 09:21 Intake & Output 06/27/17 06/28/17 06/28/17 18:59 06:59 18:59 Intake Total 102 Output Total 350 250 Balance -350 -148 Weight (lbs) 52.163 kg 46.38 kg Intake: Intake, IV Amount 102 Iron Dextran Complex 100 102 mg In Sodium Chloride 0.9 % 100 ml @ 100 mls/hr IV Q24H [facility] Rx#:[id number] Output: Urine 350 250 Active Medications: Current Medications Acetaminophen (Tylenol) 650 mg PO Q4H PRN PRN Reason: Pain Or Fever above 101 Stop: 08/20/17 19:40 Al Hydrox/Mg Hydrox/Simethicone (Maalox) 30 ml PO Q6H PRN PRN Reason: Dyspepsia Stop: 08/20/17 19:40 Albuterol Sulfate (Albuterol 2.5mg/3ml Neb Ud) 2.5 mg HHN Q2HRT PRN PRN Reason: Shortness of Breath or Wheeze Stop: 08/20/17 19:40 Amlodipine Besylate (Norvasc) 10 mg PO DAILY [facility] Stop: 08/21/17 08:59 Last Admin: 06/28/17 08:58 Dose: 10 mg Chlorhexidine Gluconate (Peridex) 15 ml MM 0800,2200 [facility] Stop: 08/26/17 21:59 Last Admin: 06/27/17 20:59 Dose: 15 ml Enalaprilat (Vasotec) 1.25 mg IVP Q6HR PRN PRN Reason: Sbp Above 170MMHG Stop: 08/22/17 11:59 Last Admin: 06/28/17 00:19 Dose: 1.25 mg Guaifenesin (Robitussin) 200 mg PO Q4HR PRN PRN Reason: Cough or Congestion Stop: 08/20/17 19:40 Haloperidol Decanoate (Haldol Dec) 25 mg IM QMONTH [facility] Stop: 08/23/17 09:59 Last Admin: 06/24/17 09:10 Dose: 25 mg Hydralazine HCl (Apresoline 20 Mg/Ml) 10 mg IV Q6HR PRN PRN Reason: SBP ABOVE 160 Stop: 08/25/17 12:20 Last Admin: 06/28/17 09:53 Dose: 10 mg Dextrose/Sodium Chloride (D5-0.9%Ns) 1,000 mls @ 80 mls/hr IV .[id number] [facility] Stop: 08/20/17 19:44 Last Admin: 06/28/17 06:13 Dose: 80 mls/hr Iron Dextran 100 mg/ Sodium (Chloride) 102 mls @ 100 mls/hr IV Q24H [facility] Stop: 07/01/17 18:02 Last Infusion: 06/27/17 19:00 Dose: Infused Insulin Aspart (Novolog) 0 units SUBQ ACHS [facility] PRN Reason: Protocol Stop: 08/21/17 16:29 Last Admin: 06/28/17 07:02 Dose: 2 units Ipratropium [place] (Atrovent Neb 0.5mg/2.5ml) 0.5 mg IH Q2HRT PRN PRN Reason: Shortness of Breath or Wheeze Stop: 08/20/17 19:40 Mirtazapine (Remeron) 15 mg PO HS [facility] PRN Reason: Protocol Stop: 08/20/17 20:59 Last Admin: 06/27/17 22:03 Dose: Not Given Miscellaneous (Heparin Drip Per Pharmacy) 1 ea MC PRN ED PRN Reason: Protocol Stop: 08/21/17 08:44 Morphine Sulfate (Morphine) 2 mg IVP Q3H PRN PRN Reason: Pain (Severe) Stop: 08/20/17 19:40 Last Admin: 06/28/17 05:14 Dose: 2 mg Nitroglycerin (Nitrostat) 0.4 mg SL Q5MIN PRN PRN Reason: Chest Pain Stop: 08/20/17 19:40 Ondansetron HCl (Zofran) 4 mg IV Q8H PRN PRN Reason: Nausea / Vomiting Stop: 08/20/17 19:40 Potassium Chloride (Klor-Con) 20 meq PO DAILY [facility] Stop: 08/21/17 08:59 Last Admin: 06/28/17 08:58 Dose: 20 meq General: Other (intubated sedated) HEENT: Atraumatic Neck: Supple Cardiovascular: Regular rate Abdomen: Bowel sounds, Soft, Other (dressing in midline no bleeding) Extremities: Other (right arm hematoma) - Procedures Procedures: Procedures Procedure Code Date PARTIAL REMOVAL OF COLON 38223 06/21/17 RESECTION OF RIGHT LARGE INTESTINE, OPEN APPROACH [id number] 06/21/17 Assessment/Plan - Problem List Patient Problems: All Active Problems Altered mental status (Acute) R41.82 Failure to thrive (Acute) [id number] Schizophrenia (Acute) F20.9 Anxiety (Chronic) F41.9 Chronic Kidney Disease (Chronic) Hypertension (Chronic) Nutritional Asmnt/Malnutr-PDOC - Dietary Evaluation Malnutrition Findings (Please click <Entered> for more info): Nutritional Asmnt/Malnutrition Start: 06/22/17 18: 04 Text: Status: Complete Freq: Document 06/22/17 18:04 [email or web address] (Rec: 06/22/17 18:15 [id number]) Nutritional Asmnt/Malnutrition Patient General Information Nutritional Screening High Risk Consult Diagnosis left lower extremity DVT, severe anemia, CHF, HTN Pertinent Medical Hx/Surgical Hx DM, anemia, renal stones, schizophrenia Subjective Information Pt seen lying in bed, confused at time of visit. Spoke with LULÚ Seay, RN reported pt ate well, consumed 60% of breakfast this morning. Per notes, pt has EGD and colonoscopy scheduled tommorrow. Current Diet Order/ Nutrition Support pureed Pertinent Medications D5-0.9ns, novolog, remeron, kcl Pertinent Labs 06/21 Na 137, K 3.5, Cl 100, BUN 24, Cr 1.3, Glucose 186, AST 10, ALT 6, Alb 2.6 06/22 POC 383 Nutritional Hx/Data Height 1.52 m Height (Calculated Centimeters) 152.4 Current Weight (lbs) 39.009 kg Weight (Calculated Kilograms) 39.0 Weight (Calculated Grams) 29012.9 [place] Body Weight 100 % [place] Body Weight 86 Body Mass Index (BMI) 16.7 Weight Status Underweight GI Symptoms GI Symptoms None Last BM none Difficult in: None Skin Integrity/Comment: intact Current %PO Fair (50-74%) Estimated Nutritional Goals Calories/Kcals/Kg 25-30 based on IBW 45kg Kcals Calculated 2614-9678 Protein g/k-1.2 Protein Calculated 45-54 Fluid: ml 1125-1350ml (1ml/kcal) Nutritional Problem 1. Problem Problem altered nutrition related lab values Etiology hx of DM Signs/Symptoms: Glucose 186, POC 383 Malnutrition Alert Protein-Calorie Malnutrition N/A Is there a minimum of two criteria No selected? Query Text:Check all the applicable criteria. A minimum of two criteria are recommended for diagnosis of either severe or non-severe malnutrition. Intervention/Recommendation Comments 1. Recommend CCHO, low sodium diet for optimal glycemic and BP control. RN notified. 2. Monitor PO intake, wt, labs and skin integrity 3. F/U as high risk in 2-3 days, 06/24-06/25 Expected Outcomes/Goals Expected Outcomes/Goals 1. PO intake to meet at least 75% of nutritional needs. 2. Wt stability, skin to remain intact, labs to improve
[2017-06-28] MEDS ORDERED: Mag Sulfate 2gm/50mL Premix 2 GM/50 ML BAG IV ONE (13:13)
[2017-06-28] MEDS ORDERED: Sodium Chloride 0.9% 500 ML IV ONE (15:26)
--- NOTE | 2017-06-28 15:33 | Internal Medicine Prog Note ---
Internal Medicine Subjective - Subjective Service Date: 06/28/17 (s/p extubation on venti mask tolerating well, patients sputum note with foul smell. ) Patient is:: awake, non-interactive Patient Complaints of:: congestion Per staff patient has:: no adverse event, no episodes of fall, noncompliant, tolerating meds Internal Medicine Objective - Results Result Diagrams: 06/28/17 04:10 06/28/17 04:10 Recent Labs: Laboratory Last Values WBC 12.6 Th/cmm (4.8-10.8) H D 06/28/17 04:10 RBC 3.06 Mil/cmm (3.80-5.20) L 06/28/17 04:10 Hgb 8.3 gm/dL (12-16) L 06/28/17 04:10 Hct 25.3 % (41.0-60) L 06/28/17 04:10 MCV 82.8 fl (81-100) 06/28/17 04:10 MCH 27.0 pg (27.0-31.0) 06/28/17 04:10 MCHC Differential 32.6 pg (28.0-36.0) 06/28/17 04:10 RDW 14.4 % (11.5-20.0) 06/28/17 04:10 Plt Count 463 Th/cmm (150-400) H 06/28/17 04:10 MPV 7.7 fl 06/28/17 04:10 Neutrophils % 83.5 % (40.0-80.0) H 06/28/17 04:10 Lymphocytes % 12.8 % (20.0-50.0) L 06/28/17 04:10 Monocytes % 3.5 % (2.0-10.0) 06/28/17 04:10 Eosinophils % 0.1 % (0.0-5.0) 06/28/17 04:10 Basophils % 0.1 % (0.0-2.0) 06/28/17 04:10 PT 11.8 SECONDS (9.5-11.5) H 06/28/17 04:10 INR 1.12 (0.5-1.4) 06/28/17 04:10 PTT (Actin FS) 26.7 SECONDS (26.0-38.0) 06/28/17 04:10 D-Dimer 3600 ng/mL (100-400) H 06/21/17 18:20 Specimen Source Arterial 06/28/17 10:55 Sample Site Right Radial 06/28/17 10:55 pH 7.44 (7.35-7.45) 06/28/17 10:55 pCO2 36.0 mmHg (35.0-45.0) 06/28/17 10:55 pO2 100.0 mmHg (80.0-100.0) 06/28/17 10:55 HCO3 25.4 mEq/L (20.0-26.0) 06/28/17 10:55 Base Excess 0.6 mEq/L (-3.0-3.0) 06/28/17 10:55 O2 Saturation 98.0 % (92.0-100.0) 06/28/17 10:55 Rashid Test Positive 06/28/17 10:55 Vent Rate N/A 06/28/17 10:55 Inspired O2 28 06/28/17 10:55 Tidal Volume N/A 06/28/17 10:55 PEEP N/A 06/28/17 10:55 Pressure (ins/psv/peep) N/A 06/28/17 10:55 Critical Value DM 06/28/17 10:55 Sodium 141 mEq/L (136-145) 06/28/17 04:10 Potassium 4.3 mEq/L (3.5-5.1) 06/28/17 04:10 Chloride 110 mEq/L (98-107) H 06/28/17 04:10 Carbon Dioxide 24.0 mEq/L (21.0-31.0) 06/28/17 04:10 Anion Gap 11.3 (7.0-16.0) 06/28/17 04:10 BUN 14 mg/dL (7-25) 06/28/17 04:10 Creatinine 1.5 mg/dL (0.6-1.2) H 06/28/17 04:10 Est GFR ( Amer) TNP 06/28/17 04:10 Est GFR (Non-Af Amer) TNP 06/28/17 04:10 BUN/Creatinine Ratio 9.3 06/28/17 04:10 Glucose 212 mg/dL (70-105) H 06/28/17 04:10 POC Glucose 203 MG/DL (70-105) H 06/28/17 06:52 Hemoglobin A1c % 11.7 % (4.0-6.0) H 06/21/17 18:20 Calcium 8.3 mg/dL (8.6-10.3) L 06/28/17 04:10 Magnesium 1.4 mg/dL (1.9-2.7) L 06/28/17 04:10 Iron 19 ug/dL (27-139) L 06/22/17 05:20 TIBC 176 ug/dL (250-450) L 06/22/17 05:20 Iron Saturation 11 % (15-55) L 06/22/17 05:20 Unsaturated IBC 157 ug/dL (118-369) 06/22/17 05:20 Ferritin 164 ng/mL (15-150) H 06/22/17 05:20 Total Bilirubin 0.2 mg/dL (0.3-1.0) L 06/28/17 04:10 AST 24 U/L (13-39) 06/28/17 04:10 ALT 19 U/L (7-52) 06/28/17 04:10 Alkaline Phosphatase 66 U/L (34-104) 06/28/17 04:10 Ammonia 36 umol/L (16-53) 06/22/17 05:20 Creatine Kinase 39 U/L (30-223) 06/21/17 18:20 Troponin I 0.01 ng/mL (0.01-0.05) 06/21/17 18:20 B-Natriuretic Peptide 115.0 pg/mL (5.0-100.0) H 06/28/17 04:10 Total Protein 5.6 gm/dL (6.0-8.3) L 06/28/17 04:10 Albumin 2.3 gm/dL (3.7-5.3) L 06/28/17 04:10 Globulin 3.3 gm/dL 06/28/17 04:10 Albumin/Globulin Ratio 0.7 (1.0-1.8) L 06/28/17 04:10 Triglycerides 104 mg/dL (<150) 06/21/17 18:20 Cholesterol 129 mg/dL (<200) 06/21/17 18:20 LDL Cholesterol Direct 65 mg/dL (75-193) L 06/21/17 18:20 HDL Cholesterol 43 mg/dL (23-92) 06/21/17 18:20 Vitamin B12 621 pg/mL (232-1245) 06/22/17 05:20 Folic Acid 14.7 ng/mL (>3.0) 06/22/17 05:20 Helicobacter pylori Ab POSITIVE (NEGATIVE) 06/23/17 10:50 Blood Type O POSITIVE 06/26/17 10:15 Antibody Screen NEGATIVE 06/26/17 10:15 Crossmatch See Detail 06/26/17 10:15 - Physical Exam Vitals and I&O: Vital Signs Temp 98.5 F 06/28/17 08:00 Pulse 109 06/28/17 11:00 Resp 15 06/28/17 11:00 BP 152/67 06/28/17 11:00 Pulse Ox 95 06/28/17 11:00 Intake & Output 06/27/17 06/28/17 06/28/17 18:59 06:59 18:59 Intake Total 102 Output Total 350 250 0 Balance -350 -148 0 Weight (lbs) 115 lb 102 lb 4 oz 121 lb 9.6 oz Intake: Intake, IV Amount 102 Iron Dextran Complex 100 102 mg In Sodium Chloride 0.9 % 100 ml @ 100 mls/hr IV Q24H [facility] Rx#:[id number] Output: Urine 350 250 0 Active Medications: Current Medications Acetaminophen (Tylenol) 650 mg PO Q4H PRN PRN Reason: Pain Or Fever above 101 Stop: 08/20/17 19:40 Al Hydrox/Mg Hydrox/Simethicone (Maalox) 30 ml PO Q6H PRN PRN Reason: Dyspepsia Stop: 08/20/17 19:40 Albuterol Sulfate (Albuterol 2.5mg/3ml Neb Ud) 2.5 mg HHN Q2HRT PRN PRN Reason: Shortness of Breath or Wheeze Stop: 08/20/17 19:40 Amlodipine Besylate (Norvasc) 10 mg PO DAILY [facility] Stop: 08/21/17 08:59 Last Admin: 06/28/17 08:58 Dose: 10 mg Chlorhexidine Gluconate (Peridex) 15 ml MM 0800,2200 [facility] Stop: 08/26/17 21:59 Last Admin: 06/27/17 20:59 Dose: 15 ml Enalaprilat (Vasotec) 1.25 mg IVP Q6HR PRN PRN Reason: Sbp Above 170MMHG Stop: 08/22/17 11:59 Last Admin: 06/28/17 00:19 Dose: 1.25 mg Guaifenesin (Robitussin) 200 mg PO Q4HR PRN PRN Reason: Cough or Congestion Stop: 08/20/17 19:40 Haloperidol Decanoate (Haldol Dec) 25 mg IM QMONTH [facility] Stop: 08/23/17 09:59 Last Admin: 06/24/17 09:10 Dose: 25 mg Hydralazine HCl (Apresoline 20 Mg/Ml) 10 mg IV Q6HR PRN PRN Reason: SBP ABOVE 160 Stop: 08/25/17 12:20 Last Admin: 06/28/17 09:53 Dose: 10 mg Dextrose/Sodium Chloride (D5-0.9%Ns) 1,000 mls @ 80 mls/hr IV .[id number] [facility] Stop: 08/20/17 19:44 Last Admin: 06/28/17 06:13 Dose: 80 mls/hr Iron Dextran 100 mg/ Sodium (Chloride) 102 mls @ 100 mls/hr IV Q24H [facility] Stop: 07/01/17 18:02 Last Infusion: 06/27/17 19:00 Dose: Infused Insulin Aspart (Novolog) 0 units SUBQ ACHS ED PRN Reason: Protocol Stop: 08/21/17 16:29 Last Admin: 06/28/17 07:02 Dose: 2 units Ipratropium [place] (Atrovent Neb 0.5mg/2.5ml) 0.5 mg IH Q2HRT PRN PRN Reason: Shortness of Breath or Wheeze Stop: 08/20/17 19:40 Mirtazapine (Remeron) 15 mg PO HS ED PRN Reason: Protocol Stop: 08/20/17 20:59 Last Admin: 06/27/17 22:03 Dose: Not Given Miscellaneous (Heparin Drip Per Pharmacy) 1 ea MC PRN ED PRN Reason: Protocol Stop: 08/21/17 08:44 Morphine Sulfate (Morphine) 2 mg IVP Q3H PRN PRN Reason: Pain (Severe) Stop: 08/20/17 19:40 Last Admin: 06/28/17 05:14 Dose: 2 mg Nitroglycerin (Nitrostat) 0.4 mg SL Q5MIN PRN PRN Reason: Chest Pain Stop: 08/20/17 19:40 Ondansetron HCl (Zofran) 4 mg IV Q8H PRN PRN Reason: Nausea / Vomiting Stop: 08/20/17 19:40 General: weak, alert HEENT: NC/AT, PERRLA Neck: Supple Lungs: ronchi Cardiovascular: RRR, Normal S1, Normal S2, without murmur Abdomen: soft, non-tender, non-distended, positive bowel sound Extremities: excoriation Neurological: alert - Procedures Procedures: Procedures Procedure Code Date PARTIAL REMOVAL OF COLON 74131 06/21/17 RESECTION OF RIGHT LARGE INTESTINE, OPEN APPROACH [id number] 06/21/17 Internal Medicine Assmt/Plan - Assessment Assessment: acute dvt cecal mass s/p exploratory lap right right hemicolectomy severe anemia dm2 schizophrenia htn psychosis hypokalemia - Plan Plan: continue icu monitoring sputum culture monitor electrolytes follow up labs in am will follow wallpaper consultant recommendations Nutritional Asmnt/Malnutr-PDOC - Dietary Evaluation Malnutrition Findings (Please click <Entered> for more info): Nutritional Asmnt/Malnutrition Start: 06/22/17 18: 04 Text: Status: Complete Freq: Document 06/22/17 18:04 JENY (Rec: 06/22/17 18:15 JENYG [email or web address]) Nutritional Asmnt/Malnutrition Patient General Information Nutritional Screening High Risk Consult Diagnosis left lower extremity DVT, severe anemia, CHF, HTN Pertinent Medical Hx/Surgical Hx DM, anemia, renal stones, schizophrenia Subjective Information Pt seen lying in bed, confused at time of visit. Spoke with LULÚ Seay RN reported pt ate well, consumed 60% of breakfast this morning. Per notes, pt has EGD and colonoscopy scheduled tommorrow. Current Diet Order/ Nutrition Support pureed Pertinent Medications D5-0.9ns, novolog, remeron, kcl Pertinent Labs 06/21 Na 137, K 3.5, Cl 100, BUN 24, Cr 1.3, Glucose 186, AST 10, ALT 6, Alb 2.6 06/22 POC 383 Nutritional Hx/Data Height 5 ft Height (Calculated Centimeters) 152.4 Current Weight (lbs) 86 lb Weight (Calculated Kilograms) 39.0 Weight (Calculated Grams) 33369.9 [place] Body Weight 100 % [place] Body Weight 86 Body Mass Index (BMI) 16.7 Weight Status Underweight GI Symptoms GI Symptoms None Last BM none Difficult in: None Skin Integrity/Comment: intact Current %PO Fair (50-74%) Estimated Nutritional Goals Calories/Kcals/Kg 25-30 based on IBW 45kg Kcals Calculated 4973-7015 Protein g/k-1.2 Protein Calculated 45-54 Fluid: ml 1125-1350ml (1ml/kcal) Nutritional Problem 1. Problem Problem altered nutrition related lab values Etiology hx of DM Signs/Symptoms: Glucose 186, POC 383 Malnutrition Alert Protein-Calorie Malnutrition N/A Is there a minimum of two criteria No selected? Query Text:Check all the applicable criteria. A minimum of two criteria are recommended for diagnosis of either severe or non-severe malnutrition. Intervention/Recommendation Comments 1. Recommend CCHO, low sodium diet for optimal glycemic and BP control. RN notified. 2. Monitor PO intake, wt, labs and skin integrity 3. F/U as high risk in 2-3 days, 06/24-06/25 Expected Outcomes/Goals Expected Outcomes/Goals 1. PO intake to meet at least 75% of nutritional needs. 2. Wt stability, skin to remain intact, labs to improve
[2017-06-28] MEDS: NS 0.9% IV SCH (16:37)
[2017-06-28] MEDS: IRON DEXTRAN IV SCH (16:37)
--- NOTE | 2017-06-28 19:16 | General Progress Note ---
Subjective - Review of Systems Service Date: 06/28/17 Objective - Results Result Diagrams: 06/28/17 04:10 06/28/17 04:10 Recent Labs: Laboratory Last Values WBC 12.6 Th/cmm (4.8-10.8) H D 06/28/17 04:10 RBC 3.06 Mil/cmm (3.80-5.20) L 06/28/17 04:10 Hgb 8.3 gm/dL (12-16) L 06/28/17 04:10 Hct 25.3 % (41.0-60) L 06/28/17 04:10 MCV 82.8 fl (81-100) 06/28/17 04:10 MCH 27.0 pg (27.0-31.0) 06/28/17 04:10 MCHC Differential 32.6 pg (28.0-36.0) 06/28/17 04:10 RDW 14.4 % (11.5-20.0) 06/28/17 04:10 Plt Count 463 Th/cmm (150-400) H 06/28/17 04:10 MPV 7.7 fl 06/28/17 04:10 Neutrophils % 83.5 % (40.0-80.0) H 06/28/17 04:10 Lymphocytes % 12.8 % (20.0-50.0) L 06/28/17 04:10 Monocytes % 3.5 % (2.0-10.0) 06/28/17 04:10 Eosinophils % 0.1 % (0.0-5.0) 06/28/17 04:10 Basophils % 0.1 % (0.0-2.0) 06/28/17 04:10 PT 11.8 SECONDS (9.5-11.5) H 06/28/17 04:10 INR 1.12 (0.5-1.4) 06/28/17 04:10 PTT (Actin FS) 26.7 SECONDS (26.0-38.0) 06/28/17 04:10 D-Dimer 3600 ng/mL (100-400) H 06/21/17 18:20 Specimen Source Arterial 06/28/17 10:55 Sample Site Right Radial 06/28/17 10:55 pH 7.44 (7.35-7.45) 06/28/17 10:55 pCO2 36.0 mmHg (35.0-45.0) 06/28/17 10:55 pO2 100.0 mmHg (80.0-100.0) 06/28/17 10:55 HCO3 25.4 mEq/L (20.0-26.0) 06/28/17 10:55 Base Excess 0.6 mEq/L (-3.0-3.0) 06/28/17 10:55 O2 Saturation 98.0 % (92.0-100.0) 06/28/17 10:55 Rashid Test Positive 06/28/17 10:55 Vent Rate N/A 06/28/17 10:55 Inspired O2 28 06/28/17 10:55 Tidal Volume N/A 06/28/17 10:55 PEEP N/A 06/28/17 10:55 Pressure (ins/psv/peep) N/A 06/28/17 10:55 Critical Value DM 06/28/17 10:55 Sodium 141 mEq/L (136-145) 06/28/17 04:10 Potassium 4.3 mEq/L (3.5-5.1) 06/28/17 04:10 Chloride 110 mEq/L (98-107) H 06/28/17 04:10 Carbon Dioxide 24.0 mEq/L (21.0-31.0) 06/28/17 04:10 Anion Gap 11.3 (7.0-16.0) 06/28/17 04:10 BUN 14 mg/dL (7-25) 06/28/17 04:10 Creatinine 1.5 mg/dL (0.6-1.2) H 06/28/17 04:10 Est GFR ( Amer) TNP 06/28/17 04:10 Est GFR (Non-Af Amer) [facility] 06/28/17 04:10 BUN/Creatinine Ratio 9.3 06/28/17 04:10 Glucose 212 mg/dL (70-105) H 06/28/17 04:10 POC Glucose 172 MG/DL (70 - 105) H 06/28/17 16:35 Hemoglobin A1c % 11.7 % (4.0-6.0) H 06/21/17 18:20 Calcium 8.3 mg/dL (8.6-10.3) L 06/28/17 04:10 Magnesium 1.4 mg/dL (1.9-2.7) L 06/28/17 04:10 Iron 19 ug/dL (27-139) L 06/22/17 05:20 TIBC 176 ug/dL (250-450) L 06/22/17 05:20 Iron Saturation 11 % (15-55) L 06/22/17 05:20 Unsaturated IBC 157 ug/dL (118-369) 06/22/17 05:20 Ferritin 164 ng/mL (15-150) H 06/22/17 05:20 Total Bilirubin 0.2 mg/dL (0.3-1.0) L 06/28/17 04:10 AST 24 U/L (13-39) 06/28/17 04:10 ALT 19 U/L (7-52) 06/28/17 04:10 Alkaline Phosphatase 66 U/L (34-104) 06/28/17 04:10 Ammonia 36 umol/L (16-53) 06/22/17 05:20 Creatine Kinase 39 U/L (30-223) 06/21/17 18:20 Troponin I 0.01 ng/mL (0.01-0.05) 06/21/17 18:20 B-Natriuretic Peptide 115.0 pg/mL (5.0-100.0) H 06/28/17 04:10 Total Protein 5.6 gm/dL (6.0-8.3) L 06/28/17 04:10 Albumin 2.3 gm/dL (3.7-5.3) L 06/28/17 04:10 Globulin 3.3 gm/dL 06/28/17 04:10 Albumin/Globulin Ratio 0.7 (1.0-1.8) L 06/28/17 04:10 Triglycerides 104 mg/dL (<150) 06/21/17 18:20 Cholesterol 129 mg/dL (<200) 06/21/17 18:20 LDL Cholesterol Direct 65 mg/dL (75-193) L 06/21/17 18:20 HDL Cholesterol 43 mg/dL (23-92) 06/21/17 18:20 Vitamin B12 621 pg/mL (232-1245) 06/22/17 05:20 Folic Acid 14.7 ng/mL (>3.0) 06/22/17 05:20 Helicobacter pylori Ab POSITIVE (NEGATIVE) 06/23/17 10:50 Blood Type O POSITIVE 06/26/17 10:15 Antibody Screen NEGATIVE 06/26/17 10:15 Crossmatch See Detail 06/26/17 10:15 - Physical Exam Vitals and I&O: Vital Signs Temp 98.2 F 06/28/17 12:00 Pulse 112 06/28/17 18:00 Resp 18 06/28/17 18:00 BP 161/78 06/28/17 18:00 Pulse Ox 97 06/28/17 18:00 Intake & Output 06/28/17 06/28/17 06/29/17 06:59 18:59 06:59 Intake Total 102 250 Output Total 250 42 Balance -148 208 Weight (lbs) 46.38 kg 54.431 kg Intake: Intake, IV Amount 102 100 Iron Dextran Complex 100 102 mg In Sodium Chloride 0.9 % 100 ml @ 100 mls/hr IV Q24H [facility] Rx#:[id number] Other 150 Output: Urine 250 42 Other: # Bowel Movements 0 Active Medications: Current Medications Acetaminophen (Tylenol) 650 mg PO Q4H PRN PRN Reason: Pain Or Fever above 101 Stop: 08/20/17 19:40 Al Hydrox/Mg Hydrox/Simethicone (Maalox) 30 ml PO Q6H PRN PRN Reason: Dyspepsia Stop: 08/20/17 19:40 Albuterol Sulfate (Albuterol 2.5mg/3ml Neb Ud) 2.5 mg HHN Q2HRT PRN PRN Reason: Shortness of Breath or Wheeze Stop: 08/20/17 19:40 Amlodipine Besylate (Norvasc) 10 mg PO DAILY [facility] Stop: 08/21/17 08:59 Last Admin: 06/28/17 08:58 Dose: 10 mg Chlorhexidine Gluconate (Peridex) 15 ml MM 0800,2200 [facility] Stop: 08/26/17 21:59 Last Admin: 06/28/17 10:00 Dose: 15 ml Enalaprilat (Vasotec) 1.25 mg IVP Q6HR PRN PRN Reason: Sbp Above 170MMHG Stop: 08/22/17 11:59 Last Admin: 06/28/17 00:19 Dose: 1.25 mg Guaifenesin (Robitussin) 200 mg PO Q4HR PRN PRN Reason: Cough or Congestion Stop: 08/20/17 19:40 Haloperidol Decanoate (Haldol Dec) 25 mg IM QMONTH [facility] Stop: 08/23/17 09:59 Last Admin: 06/24/17 09:10 Dose: 25 mg Hydralazine HCl (Apresoline 20 Mg/Ml) 10 mg IV Q6HR PRN PRN Reason: SBP ABOVE 160 Stop: 08/25/17 12:20 Last Admin: 06/28/17 09:53 Dose: 10 mg Dextrose/Sodium Chloride (D5-0.9%Ns) 1,000 mls @ 80 mls/hr IV .[id number] [facility] Stop: 08/20/17 19:44 Last Admin: 06/28/17 06:13 Dose: 80 mls/hr Iron Dextran 100 mg/ Sodium (Chloride) 102 mls @ 100 mls/hr IV Q24H [facility] Stop: 07/01/17 18:02 Last Admin: 06/28/17 16:37 Dose: 100 mls/hr Insulin Aspart (Novolog) 0 units SUBQ ACHS [facility] PRN Reason: Protocol Stop: 08/21/17 16:29 Last Admin: 06/28/17 16:30 Dose: Not Given Ipratropium [place] (Atrovent Neb 0.5mg/2.5ml) 0.5 mg IH Q2HRT PRN PRN Reason: Shortness of Breath or Wheeze Stop: 08/20/17 19:40 Mirtazapine (Remeron) 15 mg PO HS [facility] PRN Reason: Protocol Stop: 08/20/17 20:59 Last Admin: 06/27/17 22:03 Dose: Not Given Miscellaneous (Heparin Drip Per Pharmacy) 1 ea MC PRN [facility] PRN Reason: Protocol Stop: 08/21/17 08:44 Morphine Sulfate (Morphine) 2 mg IVP Q3H PRN PRN Reason: Pain (Severe) Stop: 08/20/17 19:40 Last Admin: 06/28/17 05:14 Dose: 2 mg Nitroglycerin (Nitrostat) 0.4 mg SL Q5MIN PRN PRN Reason: Chest Pain Stop: 08/20/17 19:40 Ondansetron HCl (Zofran) 4 mg IV Q8H PRN PRN Reason: Nausea / Vomiting Stop: 08/20/17 19:40 General: Other (intubated sedated) HEENT: Atraumatic Neck: Supple Cardiovascular: Regular rate Abdomen: Bowel sounds, Soft, Other (dressing in midline no bleeding) Extremities: Other (right arm hematoma) - Procedures Procedures: Procedures Procedure Code Date PARTIAL REMOVAL OF COLON 68271 06/21/17 RESECTION OF RIGHT LARGE INTESTINE, OPEN APPROACH [id number] 06/21/17 Assessment/Plan - Problem List Patient Problems: All Active Problems Altered mental status (Acute) R41.82 Failure to thrive (Acute) [id number] Schizophrenia (Acute) F20.9 Anxiety (Chronic) F41.9 Chronic Kidney Disease (Chronic) Hypertension (Chronic) - Assessment Assessment: * DVT * ANEMIA * CKD * 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 * Right arm hematoma Continue iv iron for anemia of ckd restart heparin monitor hgb and right arm hematoma Nutritional Asmnt/Malnutr-PDOC - Dietary Evaluation Malnutrition Findings (Please click <Entered> for more info): Nutritional Asmnt/Malnutrition Start: 06/22/17 18: 04 Text: Status: Complete Freq: Document 06/22/17 18:04 [email or web address] (Rec: 06/22/17 18:15 LCHARSHAD [email or web address]) Nutritional Asmnt/Malnutrition Patient General Information Nutritional Screening High Risk Consult Diagnosis left lower extremity DVT, severe anemia, CHF, HTN Pertinent Medical Hx/Surgical Hx DM, anemia, renal stones, schizophrenia Subjective Information Pt seen lying in bed, confused at time of visit. Spoke with LULÚ Seay RN reported pt ate well, consumed 60% of breakfast this morning. Per notes, pt has EGD and colonoscopy scheduled tommorrow. Current Diet Order/ Nutrition Support pureed Pertinent Medications D5-0.9ns, novolog, remeron, kcl Pertinent Labs 06/21 Na 137, K 3.5, Cl 100, BUN 24, Cr 1.3, Glucose 186, AST 10, ALT 6, Alb 2.6 06/22 POC 383 Nutritional Hx/Data Height 1.52 m Height (Calculated Centimeters) 152.4 Current Weight (lbs) 39.009 kg Weight (Calculated Kilograms) 39.0 Weight (Calculated Grams) 18050.9 [place] Body Weight 100 % [place] Body Weight 86 Body Mass Index (BMI) 16.7 Weight Status Underweight GI Symptoms GI Symptoms None Last BM none Difficult in: None Skin Integrity/Comment: intact Current %PO Fair (50-74%) Estimated Nutritional Goals Calories/Kcals/Kg 25-30 based on IBW 45kg Kcals Calculated 7983-2680 Protein g/k-1.2 Protein Calculated 45-54 Fluid: ml 1125-1350ml (1ml/kcal) Nutritional Problem 1. Problem Problem altered nutrition related lab values Etiology hx of DM Signs/Symptoms: Glucose 186, POC 383 Malnutrition Alert Protein-Calorie Malnutrition N/A Is there a minimum of two criteria No selected? Query Text:Check all the applicable criteria. A minimum of two criteria are recommended for diagnosis of either severe or non-severe malnutrition. Intervention/Recommendation Comments 1. Recommend CCHO, low sodium diet for optimal glycemic and BP control. RN notified. 2. Monitor PO intake, wt, labs and skin integrity 3. F/U as high risk in 2-3 days, 06/24-06/25 Expected Outcomes/Goals Expected Outcomes/Goals 1. PO intake to meet at least 75% of nutritional needs. 2. Wt stability, skin to remain intact, labs to improve
[2017-06-28] MEDS ORDERED: Heparin 25,000 Units In D5W 25,000 UNITS/250 ML BAG IV PRN (20:35)
[2017-06-29] MEDS: Morphine Sulfate 2 mg/mL 1mL Syr IVP PRN ×5 (00:50→22:14)
[2017-06-29 04:37] LABS: % BASOPHILS 0.4 % (0.0-2.0); % EOSINOPHILS 0.1 % (0.0-5.0); % LYMPHOCYTES 9.8 % (20.0-50.0); % MONOCYTES 5.3 % (2.0-10.0); % NEUTROPHILS 84.4 % (40.0-80.0); BASOPHILE ABSOLUTE 0.1 Th/cumm (0-0.2); HEMATOCRIT 25.8 % (41.0-60); HEMOGLOBIN 8.2 gm/dL (12-16); LYMPHOCYTE ABSOLUTE 1.3 Th/cmm (1.5-3.0); MEAN CELL VOLUME 84.5 fl (81-100); MEAN CORPUSCULAR HEMOGLOBIN 26.9 pg (27.0-31.0); MEAN CORPUSCULAR HGB CONC 31.9 pg (28.0-36.0); MEAN PLATELET VOLUME 7.5 fl; MONOCYTE ABSOLUTE 0.7 Th/cmm (0.3-1.0); NEUTROPHILE ABSOLUTE 11.5 Th/cmm (1.8-8.0); PLATELET COUNT 486 Th/cmm (150-400); RED BLOOD COUNT 3.05 Mil/cmm (3.80-5.20); RED CELL DISTRIBUTION WIDTH 14.8 % (11.5-20.0)
[2017-06-29 04:43] LABS: WHITE BLOOD COUNT 13.6 Th/cmm (4.8-10.8)
[2017-06-29 04:50] LABS: ANION GAP 10.7 (7.0-16.0); BUN - UREA NITROGEN 19 mg/dL (7-25); CALCIUM SERUM 8.7 mg/dL (8.6-10.3); CARBON DIOXIDE 23.9 mEq/L (21.0-31.0); CHLORIDE 111 mEq/L (98-107); CREATININE - SERUM 1.6 mg/dL (0.6-1.2); GLUCOSE 166 mg/dL (70-105); POTASSIUM SERUM 3.6 mEq/L (3.5-5.1); SODIUM SERUM 142 mEq/L (136-145)
--- NOTE | 2017-06-29 07:18 | GI Progress Note ---
Subjective - Review of Systems Subjective: Extubated, although UOP is low Objective - Results Result Diagrams: 06/29/17 04:30 06/29/17 04:30 Recent Labs: Laboratory Last Values WBC 13.6 Th/cmm (4.8-10.8) H 06/29/17 04:30 RBC 3.05 Mil/cmm (3.80-5.20) L 06/29/17 04:30 Hgb 8.2 gm/dL (12-16) L 06/29/17 04:30 Hct 25.8 % (41.0-60) L 06/29/17 04:30 MCV 84.5 fl (81-100) 06/29/17 04:30 MCH 26.9 pg (27.0-31.0) L 06/29/17 04:30 MCHC Differential 31.9 pg (28.0-36.0) 06/29/17 04:30 RDW 14.8 % (11.5-20.0) 06/29/17 04:30 Plt Count 486 Th/cmm (150-400) H 06/29/17 04:30 MPV 7.5 fl 06/29/17 04:30 Neutrophils % 84.4 % (40.0-80.0) H 06/29/17 04:30 Lymphocytes % 9.8 % (20.0-50.0) L 06/29/17 04:30 Monocytes % 5.3 % (2.0-10.0) 06/29/17 04:30 Eosinophils % 0.1 % (0.0-5.0) 06/29/17 04:30 Basophils % 0.4 % (0.0-2.0) 06/29/17 04:30 PT 11.8 SECONDS (9.5-11.5) H 06/28/17 04:10 INR 1.12 (0.5-1.4) 06/28/17 04:10 PTT (Actin FS) 40.9 SECONDS (26.0-38.0) H 06/29/17 04:30 D-Dimer 3600 ng/mL (100-400) H 06/21/17 18:20 Specimen Source Arterial 06/28/17 10:55 Sample Site Right Radial 06/28/17 10:55 pH 7.44 (7.35-7.45) 06/28/17 10:55 pCO2 36.0 mmHg (35.0-45.0) 06/28/17 10:55 pO2 100.0 mmHg (80.0-100.0) 06/28/17 10:55 HCO3 25.4 mEq/L (20.0-26.0) 06/28/17 10:55 Base Excess 0.6 mEq/L (-3.0-3.0) 06/28/17 10:55 O2 Saturation 98.0 % (92.0-100.0) 06/28/17 10:55 Rashid Test Positive 06/28/17 10:55 Vent Rate N/A 06/28/17 10:55 Inspired O2 28 06/28/17 10:55 Tidal Volume N/A 06/28/17 10:55 PEEP N/A 06/28/17 10:55 Pressure (ins/psv/peep) N/A 06/28/17 10:55 Critical Value DM 06/28/17 10:55 Sodium 142 mEq/L (136-145) 06/29/17 04:30 Potassium 3.6 mEq/L (3.5-5.1) 06/29/17 04:30 Chloride 111 mEq/L (98-107) H 06/29/17 04:30 Carbon Dioxide 23.9 mEq/L (21.0-31.0) 06/29/17 04:30 Anion Gap 10.7 (7.0-16.0) 06/29/17 04:30 BUN 19 mg/dL (7-25) 06/29/17 04:30 Creatinine 1.6 mg/dL (0.6-1.2) H 06/29/17 04:30 Est GFR ( Amer) [facility] 06/29/17 04:30 Est GFR (Non-Af Amer) [facility] 06/29/17 04:30 BUN/Creatinine Ratio 11.9 06/29/17 04:30 Glucose 166 mg/dL (70-105) H 06/29/17 04:30 POC Glucose 172 MG/DL (70 - 105) H 06/29/17 06:21 Hemoglobin A1c % 11.7 % (4.0-6.0) H 06/21/17 18:20 Calcium 8.7 mg/dL (8.6-10.3) 06/29/17 04:30 Magnesium 2.0 mg/dL (1.9-2.7) 06/29/17 04:30 Iron 19 ug/dL (27-139) L 06/22/17 05:20 TIBC 176 ug/dL (250-450) L 06/22/17 05:20 Iron Saturation 11 % (15-55) L 06/22/17 05:20 Unsaturated IBC 157 ug/dL (118-369) 06/22/17 05:20 Ferritin 164 ng/mL (15-150) H 06/22/17 05:20 Total Bilirubin 0.2 mg/dL (0.3-1.0) L 06/28/17 04:10 AST 24 U/L (13-39) 06/28/17 04:10 ALT 19 U/L (7-52) 06/28/17 04:10 Alkaline Phosphatase 66 U/L (34-104) 06/28/17 04:10 Ammonia 36 umol/L (16-53) 06/22/17 05:20 Creatine Kinase 39 U/L (30-223) 06/21/17 18:20 Troponin I 0.01 ng/mL (0.01-0.05) 06/21/17 18:20 B-Natriuretic Peptide 175.0 pg/mL (5.0-100.0) H 06/29/17 04:30 Total Protein 5.6 gm/dL (6.0-8.3) L 06/28/17 04:10 Albumin 2.3 gm/dL (3.7-5.3) L 06/28/17 04:10 Globulin 3.3 gm/dL 06/28/17 04:10 Albumin/Globulin Ratio 0.7 (1.0-1.8) L 06/28/17 04:10 Triglycerides 104 mg/dL (<150) 06/21/17 18:20 Cholesterol 129 mg/dL (<200) 06/21/17 18:20 LDL Cholesterol Direct 65 mg/dL (75-193) L 06/21/17 18:20 HDL Cholesterol 43 mg/dL (23-92) 06/21/17 18:20 Vitamin B12 621 pg/mL (232-1245) 06/22/17 05:20 Folic Acid 14.7 ng/mL (>3.0) 06/22/17 05:20 Helicobacter pylori Ab POSITIVE (NEGATIVE) 06/23/17 10:50 Blood Type O POSITIVE 06/26/17 10:15 Antibody Screen NEGATIVE 06/26/17 10:15 Crossmatch See Detail 06/26/17 10:15 - Physical Exam Vitals and I&O: Vital Signs Temp 99.0 F 06/29/17 04:00 Pulse 117 06/29/17 06:00 Resp 17 06/29/17 06:00 BP 153/77 06/29/17 06:00 Pulse Ox 97 06/29/17 06:00 Intake & Output 06/28/17 06/29/17 06/29/17 18:59 06:59 18:59 Intake Total 1250 Output Total 42 Balance 1208 Weight (lbs) 54.431 kg Intake: Intake, IV Amount 1100 D5-0.9%Ns 1,000 ml @ 80 1000 mls/hr IV .[id number] [facility] Rx #:[id number] Other 150 Output: Urine 42 Other: # Bowel Movements 0 Active Medications: Current Medications Acetaminophen (Tylenol) 650 mg PO Q4H PRN PRN Reason: Pain Or Fever above 101 Stop: 08/20/17 19:40 Al Hydrox/Mg Hydrox/Simethicone (Maalox) 30 ml PO Q6H PRN PRN Reason: Dyspepsia Stop: 08/20/17 19:40 Albuterol Sulfate (Albuterol 2.5mg/3ml Neb Ud) 2.5 mg HHN Q2HRT PRN PRN Reason: Shortness of Breath or Wheeze Stop: 08/20/17 19:40 Amlodipine Besylate (Norvasc) 10 mg PO DAILY [facility] Stop: 08/21/17 08:59 Last Admin: 06/28/17 08:58 Dose: 10 mg Chlorhexidine Gluconate (Peridex) 15 ml MM 0800,2200 [facility] Stop: 08/26/17 21:59 Last Admin: 06/28/17 22:00 Dose: 15 ml Enalaprilat (Vasotec) 1.25 mg IVP Q6HR PRN PRN Reason: Sbp Above 170MMHG Stop: 08/22/17 11:59 Last Admin: 06/29/17 01:18 Dose: 1.25 mg Guaifenesin (Robitussin) 200 mg PO Q4HR PRN PRN Reason: Cough or Congestion Stop: 08/20/17 19:40 Haloperidol Decanoate (Haldol Dec) 25 mg IM QMONTH [facility] Stop: 08/23/17 09:59 Last Admin: 06/24/17 09:10 Dose: 25 mg Hydralazine HCl (Apresoline 20 Mg/Ml) 10 mg IV Q6HR PRN PRN Reason: SBP ABOVE 160 Stop: 08/25/17 12:20 Last Admin: 06/29/17 05:20 Dose: 10 mg Dextrose/Sodium Chloride (D5-0.9%Ns) 1,000 mls @ 80 mls/hr IV .[id number] [facility] Stop: 08/20/17 19:44 Last Admin: 06/28/17 21:31 Dose: 80 mls/hr Iron Dextran 100 mg/ Sodium (Chloride) 102 mls @ 100 mls/hr IV Q24H [facility] Stop: 07/01/17 18:02 Last Admin: 06/28/17 16:37 Dose: 100 mls/hr Heparin Sodium/Dextrose (Heparin Drip) 25,000 units in 250 mls @ 0 mls/hr IV TITR PRN; Protocol; Titrate PRN Reason: PROTOCOL Stop: 08/27/17 20:34 Last Admin: 06/28/17 23:31 Dose: 930 units/hr, 9.3 mls/hr Insulin Aspart (Novolog) 0 units SUBQ ACHS ED PRN Reason: Protocol Stop: 08/21/17 16:29 Last Admin: 06/28/17 21:50 Dose: 2 units Ipratropium [place] (Atrovent Neb 0.5mg/2.5ml) 0.5 mg IH Q2HRT PRN PRN Reason: Shortness of Breath or Wheeze Stop: 08/20/17 19:40 Mirtazapine (Remeron) 15 mg PO HS ED PRN Reason: Protocol Stop: 08/20/17 20:59 Last Admin: 06/29/17 00:55 Dose: Not Given Miscellaneous (Heparin Drip Per Pharmacy) 1 ea MC PRN ED PRN Reason: Protocol Stop: 08/27/17 20:14 Morphine Sulfate (Morphine) 2 mg IVP Q3H PRN PRN Reason: Pain (Severe) Stop: 08/20/17 19:40 Last Admin: 06/29/17 00:50 Dose: 2 mg Nitroglycerin (Nitrostat) 0.4 mg SL Q5MIN PRN PRN Reason: Chest Pain Stop: 08/20/17 19:40 Ondansetron HCl (Zofran) 4 mg IV Q8H PRN PRN Reason: Nausea / Vomiting Stop: 08/20/17 19:40 General: Other (intubated sedated) HEENT: Atraumatic Neck: Supple Cardiovascular: Regular rate Abdomen: Bowel sounds, Soft, Other (dressing in midline no bleeding) Extremities: Other (right arm hematoma) - Procedures Procedures: Procedures Procedure Code Date PARTIAL REMOVAL OF COLON 12172 06/21/17 RESECTION OF RIGHT LARGE INTESTINE, OPEN APPROACH [id number] 06/21/17 Assessment/Plan - Problem List Patient Problems: All Active Problems Altered mental status (Acute) R41.82 Failure to thrive (Acute) [id number] Schizophrenia (Acute) F20.9 Anxiety (Chronic) F41.9 Chronic Kidney Disease (Chronic) Hypertension (Chronic) - Assessment Assessment: # Anemia # Colon mass vs polyp # Diverticulosis EGD on 06/23 showed mild gastritis. Colonoscopy revealed 3-4cm cecal lesion and 2cm ascending colon polyp. Cecal lesion endoscopically looked like villous adenoma, and ascending colon may be adenoma vs villous adenoma. 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 These lesions could very well be contributing to her chronic anemia, although certainly there is anemia of chronic disease Now s/p R hemicolectomy on 06/27. She is now extubated in ICU. Plan: - follow up final path from R colon lesions. Will need another colonoscopy in 3 years if there is no cancer. If cancer, repeat in 1 year - cont post op care as per Dr Tapia - appreciate hematology recs - cont iron supplementation Thank you for allowing me to participate in this patient's care, GI to see intermittently. Please call with any questions
[2017-06-29] MEDS: INSULIN ASPART, RECOMBINANT 100 UNITS/ML SUBQ SCH ×4 (07:42→23:54)
--- NOTE | 2017-06-29 08:47 | Diagnostic Imaging Report ---
Portable chest x-ray HISTORY: Shortness of breath Compared with a prior exam of June 28, 2017, the endotracheal tube has been removed. A faint linear density seen in the left perihilar region suggesting subsegmental atelectasis. No other focal processes. IMPRESSION: 1. Status post removal endotracheal tube 2. Faint linear density within the left perihilar region that may be associated with subsegmental atelectasis
--- NOTE | 2017-06-29 10:15 | General Progress Note ---
Subjective - Review of Systems Service Date: 06/29/17 Objective - Results Result Diagrams: 06/29/17 04:30 06/29/17 04:30 Recent Labs: Laboratory Last Values WBC 13.6 Th/cmm (4.8-10.8) H 06/29/17 04:30 RBC 3.05 Mil/cmm (3.80-5.20) L 06/29/17 04:30 Hgb 8.2 gm/dL (12-16) L 06/29/17 04:30 Hct 25.8 % (41.0-60) L 06/29/17 04:30 MCV 84.5 fl (81-100) 06/29/17 04:30 MCH 26.9 pg (27.0-31.0) L 06/29/17 04:30 MCHC Differential 31.9 pg (28.0-36.0) 06/29/17 04:30 RDW 14.8 % (11.5-20.0) 06/29/17 04:30 Plt Count 486 Th/cmm (150-400) H 06/29/17 04:30 MPV 7.5 fl 06/29/17 04:30 Neutrophils % 84.4 % (40.0-80.0) H 06/29/17 04:30 Lymphocytes % 9.8 % (20.0-50.0) L 06/29/17 04:30 Monocytes % 5.3 % (2.0-10.0) 06/29/17 04:30 Eosinophils % 0.1 % (0.0-5.0) 06/29/17 04:30 Basophils % 0.4 % (0.0-2.0) 06/29/17 04:30 PT 11.8 SECONDS (9.5-11.5) H 06/28/17 04:10 INR 1.12 (0.5-1.4) 06/28/17 04:10 PTT (Actin FS) 40.9 SECONDS (26.0-38.0) H 06/29/17 04:30 D-Dimer 3600 ng/mL (100-400) H 06/21/17 18:20 Specimen Source Arterial 06/28/17 10:55 Sample Site Right Radial 06/28/17 10:55 pH 7.44 (7.35-7.45) 06/28/17 10:55 pCO2 36.0 mmHg (35.0-45.0) 06/28/17 10:55 pO2 100.0 mmHg (80.0-100.0) 06/28/17 10:55 HCO3 25.4 mEq/L (20.0-26.0) 06/28/17 10:55 Base Excess 0.6 mEq/L (-3.0-3.0) 06/28/17 10:55 O2 Saturation 98.0 % (92.0-100.0) 06/28/17 10:55 Rashid Test Positive 06/28/17 10:55 Vent Rate N/A 06/28/17 10:55 Inspired O2 28 06/28/17 10:55 Tidal Volume N/A 06/28/17 10:55 PEEP N/A 06/28/17 10:55 Pressure (ins/psv/peep) N/A 06/28/17 10:55 Critical Value DM 06/28/17 10:55 Sodium 142 mEq/L (136-145) 06/29/17 04:30 Potassium 3.6 mEq/L (3.5-5.1) 06/29/17 04:30 Chloride 111 mEq/L (98-107) H 06/29/17 04:30 Carbon Dioxide 23.9 mEq/L (21.0-31.0) 06/29/17 04:30 Anion Gap 10.7 (7.0-16.0) 06/29/17 04:30 BUN 19 mg/dL (7-25) 06/29/17 04:30 Creatinine 1.6 mg/dL (0.6-1.2) H 06/29/17 04:30 Est GFR ( Amer) [facility] 06/29/17 04:30 Est GFR (Non-Af Amer) [facility] 06/29/17 04:30 BUN/Creatinine Ratio 11.9 06/29/17 04:30 Glucose 166 mg/dL (70-105) H 06/29/17 04:30 POC Glucose 172 MG/DL (70 - 105) H 06/29/17 06:21 Hemoglobin A1c % 11.7 % (4.0-6.0) H 06/21/17 18:20 Calcium 8.7 mg/dL (8.6-10.3) 06/29/17 04:30 Magnesium 2.0 mg/dL (1.9-2.7) 06/29/17 04:30 Iron 19 ug/dL (27-139) L 06/22/17 05:20 TIBC 176 ug/dL (250-450) L 06/22/17 05:20 Iron Saturation 11 % (15-55) L 06/22/17 05:20 Unsaturated IBC 157 ug/dL (118-369) 06/22/17 05:20 Ferritin 164 ng/mL (15-150) H 06/22/17 05:20 Total Bilirubin 0.2 mg/dL (0.3-1.0) L 06/28/17 04:10 AST 24 U/L (13-39) 06/28/17 04:10 ALT 19 U/L (7-52) 06/28/17 04:10 Alkaline Phosphatase 66 U/L (34-104) 06/28/17 04:10 Ammonia 36 umol/L (16-53) 06/22/17 05:20 Creatine Kinase 39 U/L (30-223) 06/21/17 18:20 Troponin I 0.01 ng/mL (0.01-0.05) 06/21/17 18:20 B-Natriuretic Peptide 175.0 pg/mL (5.0-100.0) H 06/29/17 04:30 Total Protein 5.6 gm/dL (6.0-8.3) L 06/28/17 04:10 Albumin 2.3 gm/dL (3.7-5.3) L 06/28/17 04:10 Globulin 3.3 gm/dL 06/28/17 04:10 Albumin/Globulin Ratio 0.7 (1.0-1.8) L 06/28/17 04:10 Triglycerides 104 mg/dL (<150) 06/21/17 18:20 Cholesterol 129 mg/dL (<200) 06/21/17 18:20 LDL Cholesterol Direct 65 mg/dL (75-193) L 06/21/17 18:20 HDL Cholesterol 43 mg/dL (23-92) 06/21/17 18:20 Vitamin B12 621 pg/mL (232-1245) 06/22/17 05:20 Folic Acid 14.7 ng/mL (>3.0) 06/22/17 05:20 Helicobacter pylori Ab POSITIVE (NEGATIVE) 06/23/17 10:50 Blood Type O POSITIVE 06/26/17 10:15 Antibody Screen NEGATIVE 06/26/17 10:15 Crossmatch See Detail 06/26/17 10:15 - Physical Exam Vitals and I&O: Vital Signs Temp 99.0 F 06/29/17 04:00 Pulse 107 06/29/17 08:10 Resp 18 06/29/17 08:10 BP 161/73 06/29/17 06:20 Pulse Ox 97 06/29/17 08:10 Intake & Output 06/28/17 06/29/17 06/29/17 18:59 06:59 18:59 Intake Total 1250 0 88.195 Output Total 42 460 Balance 1208 -460 88.195 Weight (lbs) 54.431 kg 55.565 kg Intake: Intake, IV Amount 1100 88.195 D5-0.9%Ns 1,000 ml @ 80 1000 mls/hr IV .[id number] ED Rx #:[id number] Heparin 25,000 Units In 88.195 D5W 25,000 units In 250 ml @ Titrate IV TITR PRN Rx#:[id number] Oral 0 Other 150 Output: Gastric Drainage 250 Urine 42 210 Other: # Bowel Movements 0 0 Active Medications: Current Medications Acetaminophen (Tylenol) 650 mg PO Q4H PRN PRN Reason: Pain Or Fever above 101 Stop: 08/20/17 19:40 Al Hydrox/Mg Hydrox/Simethicone (Maalox) 30 ml PO Q6H PRN PRN Reason: Dyspepsia Stop: 08/20/17 19:40 Albuterol Sulfate (Albuterol 2.5mg/3ml Neb Ud) 2.5 mg HHN Q2HRT PRN PRN Reason: Shortness of Breath or Wheeze Stop: 08/20/17 19:40 Amlodipine Besylate (Norvasc) 10 mg PO DAILY [facility] Stop: 08/21/17 08:59 Last Admin: 06/28/17 08:58 Dose: 10 mg Chlorhexidine Gluconate (Peridex) 15 ml MM 0800,2200 [facility] Stop: 08/26/17 21:59 Last Admin: 06/28/17 22:00 Dose: 15 ml Enalaprilat (Vasotec) 1.25 mg IVP Q6HR PRN PRN Reason: Sbp Above 170MMHG Stop: 08/22/17 11:59 Last Admin: 06/29/17 01:18 Dose: 1.25 mg Guaifenesin (Robitussin) 200 mg PO Q4HR PRN PRN Reason: Cough or Congestion Stop: 08/20/17 19:40 Haloperidol Decanoate (Haldol Dec) 25 mg IM QMONTH [facility] Stop: 08/23/17 09:59 Last Admin: 06/24/17 09:10 Dose: 25 mg Hydralazine HCl (Apresoline 20 Mg/Ml) 10 mg IV Q6HR PRN PRN Reason: SBP ABOVE 160 Stop: 08/25/17 12:20 Last Admin: 06/29/17 05:20 Dose: 10 mg Dextrose/Sodium Chloride (D5-0.9%Ns) 1,000 mls @ 80 mls/hr IV .[id number] [facility] Stop: 08/20/17 19:44 Last Admin: 06/28/17 21:31 Dose: 80 mls/hr Iron Dextran 100 mg/ Sodium (Chloride) 102 mls @ 100 mls/hr IV Q24H [facility] Stop: 07/01/17 18:02 Last Admin: 06/28/17 16:37 Dose: 100 mls/hr Heparin Sodium/Dextrose (Heparin Drip) 25,000 units in 250 mls @ 0 mls/hr IV TITR PRN; Protocol; Titrate PRN Reason: PROTOCOL Stop: 08/27/17 20:34 Last Titration: 06/29/17 09:00 Dose: 1,050 units/hr, 10.5 mls/hr Insulin Aspart (Novolog) 0 units SUBQ ACHS ED PRN Reason: Protocol Stop: 08/21/17 16:29 Last Admin: 06/29/17 07:42 Dose: Not Given Ipratropium [place] (Atrovent Neb 0.5mg/2.5ml) 0.5 mg IH Q2HRT PRN PRN Reason: Shortness of Breath or Wheeze Stop: 08/20/17 19:40 Mirtazapine (Remeron) 15 mg PO HS ED PRN Reason: Protocol Stop: 08/20/17 20:59 Last Admin: 06/29/17 00:55 Dose: Not Given Miscellaneous (Heparin Drip Per Pharmacy) 1 ea MC PRN ED PRN Reason: Protocol Stop: 08/27/17 20:14 Morphine Sulfate (Morphine) 2 mg IVP Q3H PRN PRN Reason: Pain (Severe) Stop: 08/20/17 19:40 Last Admin: 06/29/17 09:01 Dose: 2 mg Nitroglycerin (Nitrostat) 0.4 mg SL Q5MIN PRN PRN Reason: Chest Pain Stop: 08/20/17 19:40 Ondansetron HCl (Zofran) 4 mg IV Q8H PRN PRN Reason: Nausea / Vomiting Stop: 08/20/17 19:40 General: Other (extubated) HEENT: Atraumatic Neck: Supple Cardiovascular: Regular rate Abdomen: Bowel sounds, Soft, Other (dressing in midline no bleeding) Extremities: Other (right arm hematoma) - Procedures Procedures: Procedures Procedure Code Date PARTIAL REMOVAL OF COLON 58067 06/21/17 RESECTION OF RIGHT LARGE INTESTINE, OPEN APPROACH [id number] 06/21/17 Assessment/Plan - Problem List Patient Problems: All Active Problems Altered mental status (Acute) R41.82 Failure to thrive (Acute) [id number] Schizophrenia (Acute) F20.9 Anxiety (Chronic) F41.9 Chronic Kidney Disease (Chronic) Hypertension (Chronic) - Assessment Assessment: * DVT * ANEMIA * CKD * 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 * Right arm hematoma Continue iv iron for anemia of ckd continue heparin monitor hgb and right arm hematoma follow path Nutritional Asmnt/Malnutr-PDOC - Dietary Evaluation Malnutrition Findings (Please click <Entered> for more info): Nutritional Asmnt/Malnutrition Start: 06/22/17 18: 04 Text: Status: Complete Freq: Document 06/22/17 18:04 GRISELDA (Rec: 06/22/17 18:15 GRISELDA [email or web address]) Nutritional Asmnt/Malnutrition Patient General Information Nutritional Screening High Risk Consult Diagnosis left lower extremity DVT, severe anemia, CHF, HTN Pertinent Medical Hx/Surgical Hx DM, anemia, renal stones, schizophrenia Subjective Information Pt seen lying in bed, confused at time of visit. Spoke with LULÚ Seay RN reported pt ate well, consumed 60% of breakfast this morning. Per notes, pt has EGD and colonoscopy scheduled tommorrow. Current Diet Order/ Nutrition Support pureed Pertinent Medications D5-0.9ns, novolog, remeron, kcl Pertinent Labs 06/21 Na 137, K 3.5, Cl 100, BUN 24, Cr 1.3, Glucose 186, AST 10, ALT 6, Alb 2.6 06/22 POC 383 Nutritional Hx/Data Height 1.52 m Height (Calculated Centimeters) 152.4 Current Weight (lbs) 39.009 kg Weight (Calculated Kilograms) 39.0 Weight (Calculated Grams) 22253.9 [place] Body Weight 100 % [place] Body Weight 86 Body Mass Index (BMI) 16.7 Weight Status Underweight GI Symptoms GI Symptoms None Last BM none Difficult in: None Skin Integrity/Comment: intact Current %PO Fair (50-74%) Estimated Nutritional Goals Calories/Kcals/Kg 25-30 based on IBW 45kg Kcals Calculated 5326-3715 Protein g/k-1.2 Protein Calculated 45-54 Fluid: ml 1125-1350ml (1ml/kcal) Nutritional Problem 1. Problem Problem altered nutrition related lab values Etiology hx of DM Signs/Symptoms: Glucose 186, POC 383 Malnutrition Alert Protein-Calorie Malnutrition N/A Is there a minimum of two criteria No selected? Query Text:Check all the applicable criteria. A minimum of two criteria are recommended for diagnosis of either severe or non-severe malnutrition. Intervention/Recommendation Comments 1. Recommend CCHO, low sodium diet for optimal glycemic and BP control. RN notified. 2. Monitor PO intake, wt, labs and skin integrity 3. F/U as high risk in 2-3 days, 06/24-06/25 Expected Outcomes/Goals Expected Outcomes/Goals 1. PO intake to meet at least 75% of nutritional needs. 2. Wt stability, skin to remain intact, labs to improve
--- NOTE | 2017-06-29 11:46 | Consultation ---
DATE OF CONSULTATION: 06/27/[address] Tobias. Thank you very much Dr. Tobias for this consultation. HISTORY OF PRESENT ILLNESS: This is a 76-year-old female, long-term resident, with debility, was taken to surgery for exploratory laparotomy and right hemicolectomy. The patient has underlying history of dementia, recent diagnosis of DVT, diabetes, anemia. SOCIAL HISTORY: No history of smoking. [facility] resident. REVIEW OF SYSTEMS: Unable to obtain because of the patient's condition. PHYSICAL EXAMINATION: GENERAL: The patient is intubated, sedated. VITAL SIGNS: Temperature 97.0, pulse 80, respiratory rate 16, blood pressure 126/68, saturation 100%, 40% oxygen. HEENT: Head atraumatic and normocephalic. Pupils react to light and accommodation. Ears, nose and throat normal. NECK: Supple. No JVD. CHEST: There is fair entry bilaterally. No wheezing or crackles. HEART: Regular rate and rhythm. ABDOMEN: Soft. EXTREMITIES: There is no edema. Chest x-ray showed ET tube in good placement, elevated left hemidiaphragm with a large stomach bubble. LABS: WBC is 9.6, hemoglobin 8.0, hematocrit 24.9, platelets 400. Sodium 139, potassium 3.3, BUN 9, creatinine 1.1. IMPRESSION: 1. A 76-year-old female with respiratory failure. 2. DVT. 3. Status post abdominal surgery. PLAN: 1. Nebulizer treatment. 2. Ventilator support. 3. Wean as tolerated. Hopefully, we can extubate tomorrow. JOB# [id number] [facility]
[2017-06-29] MEDS: cloNIDine 0.1 mg/24 hr Tdm TD SCH (13:30)
--- NOTE | 2017-06-29 15:25 | Internal Medicine Prog Note ---
Internal Medicine Subjective - Subjective Service Date: 06/29/17 Patient seen and examined:: with staff Patient is:: awake, non-interactive Patient Complaints of:: congestion Per staff patient has:: no adverse event, no episodes of fall, noncompliant, tolerating meds Internal Medicine Objective - Results Result Diagrams: 06/29/17 04:30 06/29/17 04:30 Recent Labs: Laboratory Last Values WBC 13.6 Th/cmm (4.8-10.8) H 06/29/17 04:30 RBC 3.05 Mil/cmm (3.80-5.20) L 06/29/17 04:30 Hgb 8.2 gm/dL (12-16) L 06/29/17 04:30 Hct 25.8 % (41.0-60) L 06/29/17 04:30 MCV 84.5 fl (81-100) 06/29/17 04:30 MCH 26.9 pg (27.0-31.0) L 06/29/17 04:30 MCHC Differential 31.9 pg (28.0-36.0) 06/29/17 04:30 RDW 14.8 % (11.5-20.0) 06/29/17 04:30 Plt Count 486 Th/cmm (150-400) H 06/29/17 04:30 MPV 7.5 fl 06/29/17 04:30 Neutrophils % 84.4 % (40.0-80.0) H 06/29/17 04:30 Lymphocytes % 9.8 % (20.0-50.0) L 06/29/17 04:30 Monocytes % 5.3 % (2.0-10.0) 06/29/17 04:30 Eosinophils % 0.1 % (0.0-5.0) 06/29/17 04:30 Basophils % 0.4 % (0.0-2.0) 06/29/17 04:30 PT 11.8 SECONDS (9.5-11.5) H 06/28/17 04:10 INR 1.12 (0.5-1.4) 06/28/17 04:10 PTT (Actin FS) 40.9 SECONDS (26.0-38.0) H 06/29/17 04:30 D-Dimer 3600 ng/mL (100-400) H 06/21/17 18:20 Specimen Source Arterial 06/28/17 10:55 Sample Site Right Radial 06/28/17 10:55 pH 7.44 (7.35-7.45) 06/28/17 10:55 pCO2 36.0 mmHg (35.0-45.0) 06/28/17 10:55 pO2 100.0 mmHg (80.0-100.0) 06/28/17 10:55 HCO3 25.4 mEq/L (20.0-26.0) 06/28/17 10:55 Base Excess 0.6 mEq/L (-3.0-3.0) 06/28/17 10:55 O2 Saturation 98.0 % (92.0-100.0) 06/28/17 10:55 Rashid Test Positive 06/28/17 10:55 Vent Rate N/A 06/28/17 10:55 Inspired O2 28 06/28/17 10:55 Tidal Volume N/A 06/28/17 10:55 PEEP N/A 06/28/17 10:55 Pressure (ins/psv/peep) N/A 06/28/17 10:55 Critical Value DM 06/28/17 10:55 Sodium 142 mEq/L (136-145) 06/29/17 04:30 Potassium 3.6 mEq/L (3.5-5.1) 06/29/17 04:30 Chloride 111 mEq/L (98-107) H 06/29/17 04:30 Carbon Dioxide 23.9 mEq/L (21.0-31.0) 06/29/17 04:30 Anion Gap 10.7 (7.0-16.0) 06/29/17 04:30 BUN 19 mg/dL (7-25) 06/29/17 04:30 Creatinine 1.6 mg/dL (0.6-1.2) H 06/29/17 04:30 Est GFR ( Amer) TNP 06/29/17 04:30 Est GFR (Non-Af Amer) TNP 06/29/17 04:30 BUN/Creatinine Ratio 11.9 06/29/17 04:30 Glucose 166 mg/dL (70-105) H 06/29/17 04:30 POC Glucose 206 MG/DL (70 - 105) H 06/29/17 11:08 Hemoglobin A1c % 11.7 % (4.0-6.0) H 06/21/17 18:20 Calcium 8.7 mg/dL (8.6-10.3) 06/29/17 04:30 Magnesium 2.0 mg/dL (1.9-2.7) 06/29/17 04:30 Iron 19 ug/dL (27-139) L 06/22/17 05:20 TIBC 176 ug/dL (250-450) L 06/22/17 05:20 Iron Saturation 11 % (15-55) L 06/22/17 05:20 Unsaturated IBC 157 ug/dL (118-369) 06/22/17 05:20 Ferritin 164 ng/mL (15-150) H 06/22/17 05:20 Total Bilirubin 0.2 mg/dL (0.3-1.0) L 06/28/17 04:10 AST 24 U/L (13-39) 06/28/17 04:10 ALT 19 U/L (7-52) 06/28/17 04:10 Alkaline Phosphatase 66 U/L (34-104) 06/28/17 04:10 Ammonia 36 umol/L (16-53) 06/22/17 05:20 Creatine Kinase 39 U/L (30-223) 06/21/17 18:20 Troponin I 0.01 ng/mL (0.01-0.05) 06/21/17 18:20 B-Natriuretic Peptide 175.0 pg/mL (5.0-100.0) H 06/29/17 04:30 Total Protein 5.6 gm/dL (6.0-8.3) L 06/28/17 04:10 Albumin 2.3 gm/dL (3.7-5.3) L 06/28/17 04:10 Globulin 3.3 gm/dL 06/28/17 04:10 Albumin/Globulin Ratio 0.7 (1.0-1.8) L 06/28/17 04:10 Triglycerides 104 mg/dL (<150) 06/21/17 18:20 Cholesterol 129 mg/dL (<200) 06/21/17 18:20 LDL Cholesterol Direct 65 mg/dL (75-193) L 06/21/17 18:20 HDL Cholesterol 43 mg/dL (23-92) 06/21/17 18:20 Vitamin B12 621 pg/mL (232-1245) 06/22/17 05:20 Folic Acid 14.7 ng/mL (>3.0) 06/22/17 05:20 Helicobacter pylori Ab POSITIVE (NEGATIVE) 06/23/17 10:50 Blood Type O POSITIVE 06/26/17 10:15 Antibody Screen NEGATIVE 06/26/17 10:15 Crossmatch See Detail 06/26/17 10:15 - Physical Exam Vitals and I&O: Vital Signs Temp 99.1 F 06/29/17 13:00 Pulse 104 06/29/17 13:30 Resp 15 06/29/17 13:00 BP 163/71 06/29/17 13:30 Pulse Ox 94 06/29/17 13:00 Intake & Output 06/28/17 06/29/17 06/29/17 18:59 06:59 18:59 Intake Total 1250 0 88.195 Output Total 42 460 Balance 1208 -460 88.195 Weight (lbs) 120 lb 122 lb 8 oz Intake: Intake, IV Amount 1100 88.195 D5-0.9%Ns 1,000 ml @ 80 1000 mls/hr IV .[id number] ED Rx #:[id number] Heparin 25,000 Units In 88.195 D5W 25,000 units In 250 ml @ Titrate IV TITR PRN Rx#:[id number] Oral 0 Other 150 Output: Gastric Drainage 250 Urine 42 210 Other: # Bowel Movements 0 0 Active Medications: Current Medications Acetaminophen (Tylenol) 650 mg PO Q4H PRN PRN Reason: Pain Or Fever above 101 Stop: 08/20/17 19:40 Al Hydrox/Mg Hydrox/Simethicone (Maalox) 30 ml PO Q6H PRN PRN Reason: Dyspepsia Stop: 08/20/17 19:40 Albuterol Sulfate (Albuterol 2.5mg/3ml Neb Ud) 2.5 mg HHN Q2HRT PRN PRN Reason: Shortness of Breath or Wheeze Stop: 08/20/17 19:40 Amlodipine Besylate (Norvasc) 10 mg PO DAILY [facility] Stop: 08/21/17 08:59 Last Admin: 06/29/17 09:30 Dose: Not Given Clonidine HCl (Aionnodk-Jrj-2) 1 patch TD We [facility] Stop: 08/28/17 13:14 Last Admin: 06/29/17 13:30 Dose: 1 patch Enalaprilat (Vasotec) 1.25 mg IVP Q6HR PRN PRN Reason: Sbp Above 170MMHG Stop: 08/22/17 11:59 Last Admin: 06/29/17 11:20 Dose: 1.25 mg Guaifenesin (Robitussin) 200 mg PO Q4HR PRN PRN Reason: Cough or Congestion Stop: 08/20/17 19:40 Haloperidol Decanoate (Haldol Dec) 25 mg IM QMONTH [facility] Stop: 08/23/17 09:59 Last Admin: 06/24/17 09:10 Dose: 25 mg Hydralazine HCl (Apresoline 20 Mg/Ml) 10 mg IV Q6HR PRN PRN Reason: SBP ABOVE 160 Stop: 08/25/17 12:20 Last Admin: 06/29/17 12:15 Dose: 10 mg Dextrose/Sodium Chloride (D5-0.9%Ns) 1,000 mls @ 80 mls/hr IV .[id number] [facility] Stop: 08/20/17 19:44 Last Admin: 06/28/17 21:31 Dose: 80 mls/hr Iron Dextran 100 mg/ Sodium (Chloride) 102 mls @ 100 mls/hr IV Q24H [facility] Stop: 07/01/17 18:02 Last Admin: 06/28/17 16:37 Dose: 100 mls/hr Heparin Sodium/Dextrose (Heparin Drip) 25,000 units in 250 mls @ 0 mls/hr IV TITR PRN; Protocol; Titrate PRN Reason: PROTOCOL Stop: 08/27/17 20:34 Last Titration: 06/29/17 09:00 Dose: 1,050 units/hr, 10.5 mls/hr Insulin Aspart (Novolog) 0 units SUBQ ACHS ED PRN Reason: Protocol Stop: 08/21/17 16:29 Last Admin: 06/29/17 11:28 Dose: 2 units Ipratropium [place] (Atrovent Neb 0.5mg/2.5ml) 0.5 mg IH Q2HRT PRN PRN Reason: Shortness of Breath or Wheeze Stop: 08/20/17 19:40 Mirtazapine (Remeron) 15 mg PO HS ED PRN Reason: Protocol Stop: 08/20/17 20:59 Last Admin: 06/29/17 00:55 Dose: Not Given Miscellaneous (Heparin Drip Per Pharmacy) 1 ea MC PRN ED PRN Reason: Protocol Stop: 08/27/17 20:14 Morphine Sulfate (Morphine) 2 mg IVP Q3H PRN PRN Reason: Pain (Severe) Stop: 08/20/17 19:40 Last Admin: 06/29/17 12:17 Dose: 2 mg Nitroglycerin (Nitrostat) 0.4 mg SL Q5MIN PRN PRN Reason: Chest Pain Stop: 08/20/17 19:40 Ondansetron HCl (Zofran) 4 mg IV Q8H PRN PRN Reason: Nausea / Vomiting Stop: 08/20/17 19:40 General: weak, alert HEENT: NC/AT, PERRLA Neck: Supple Lungs: ronchi Cardiovascular: RRR, Normal S1, Normal S2, without murmur Abdomen: soft, non-tender, non-distended, positive bowel sound Extremities: excoriation Neurological: alert - Procedures Procedures: Procedures Procedure Code Date PARTIAL REMOVAL OF COLON 67686 06/21/17 RESECTION OF RIGHT LARGE INTESTINE, OPEN APPROACH [id number] 06/21/17 Internal Medicine Assmt/Plan - Assessment Assessment: acute dvt cecal mass s/p exploratory lap right right hemicolectomy severe anemia dm2 schizophrenia htn psychosis hypokalemia - Plan Plan: awaiting for sputum culture monitor electrolytes follow up labs in am will follow computing consultant recommendations Nutritional Asmnt/Malnutr-PDOC - Dietary Evaluation Malnutrition Findings (Please click <Entered> for more info): Nutritional Asmnt/Malnutrition Start: 06/22/17 18: 04 Text: Status: Complete Freq: Document 06/22/17 18:04 GRISELDA (Rec: 06/22/17 18:15 GRISELDA [email or web address]) Nutritional Asmnt/Malnutrition Patient General Information Nutritional Screening High Risk Consult Diagnosis left lower extremity DVT, severe anemia, CHF, HTN Pertinent Medical Hx/Surgical Hx DM, anemia, renal stones, schizophrenia Subjective Information Pt seen lying in bed, confused at time of visit. Spoke with LULÚ Seay RN reported pt ate well, consumed 60% of breakfast this morning. Per notes, pt has EGD and colonoscopy scheduled tommorrow. Current Diet Order/ Nutrition Support pureed Pertinent Medications D5-0.9ns, novolog, remeron, kcl Pertinent Labs 06/21 Na 137, K 3.5, Cl 100, BUN 24, Cr 1.3, Glucose 186, AST 10, ALT 6, Alb 2.6 06/22 POC 383 Nutritional Hx/Data Height 5 ft Height (Calculated Centimeters) 152.4 Current Weight (lbs) 86 lb Weight (Calculated Kilograms) 39.0 Weight (Calculated Grams) 49765.9 [place] Body Weight 100 % [place] Body Weight 86 Body Mass Index (BMI) 16.7 Weight Status Underweight GI Symptoms GI Symptoms None Last BM none Difficult in: None Skin Integrity/Comment: intact Current %PO Fair (50-74%) Estimated Nutritional Goals Calories/Kcals/Kg 25-30 based on IBW 45kg Kcals Calculated 2650-8698 Protein g/k-1.2 Protein Calculated 45-54 Fluid: ml 1125-1350ml (1ml/kcal) Nutritional Problem 1. Problem Problem altered nutrition related lab values Etiology hx of DM Signs/Symptoms: Glucose 186, POC 383 Malnutrition Alert Protein-Calorie Malnutrition N/A Is there a minimum of two criteria No selected? Query Text:Check all the applicable criteria. A minimum of two criteria are recommended for diagnosis of either severe or non-severe malnutrition. Intervention/Recommendation Comments 1. Recommend [facility], low sodium diet for optimal glycemic and BP control. RN notified. 2. Monitor PO intake, wt, labs and skin integrity 3. F/U as high risk in 2-3 days, 06/24-06/25 Expected Outcomes/Goals Expected Outcomes/Goals 1. PO intake to meet at least 75% of nutritional needs. 2. Wt stability, skin to remain intact, labs to improve
[2017-06-29] MEDS: IRON DEXTRAN IV SCH (17:10)
[2017-06-29] MEDS: NS 0.9% IV SCH (17:10)
[2017-06-29] MEDS: Heparin 25,000 Units In D5W 25,000 UNITS/250 ML BAG IV PRN ×2 (17:41→23:04)
[2017-06-29] MEDS: D5-0.9%NS 1,000 ML IV SCH (22:38)
[2017-06-30] MEDS ORDERED: Heparin Sodium 1,000 Units/mL Vial IVP ONE (01:26)
[2017-06-30 04:06] LABS: HEMATOCRIT 24.5 % (41.0-60); HEMOGLOBIN 8.1 gm/dL (12-16); MEAN CELL VOLUME 85.1 fl (81-100); MEAN CORPUSCULAR HEMOGLOBIN 28.2 pg (27.0-31.0); MEAN CORPUSCULAR HGB CONC 33.2 pg (28.0-36.0); MEAN PLATELET VOLUME 7.9 fl; PLATELET COUNT 485 Th/cmm (150-400); RED BLOOD COUNT 2.88 Mil/cmm (3.80-5.20); RED CELL DISTRIBUTION WIDTH 15.5 % (11.5-20.0)
[2017-06-30 04:07] LABS: MANUAL DIFF REQUIRED? YES; WHITE BLOOD COUNT 18.2 Th/cmm (4.8-10.8)
[2017-06-30 04:23] LABS: ANION GAP 11.2 (7.0-16.0); BUN - UREA NITROGEN 20 mg/dL (7-25); CALCIUM SERUM 8.9 mg/dL (8.6-10.3); CARBON DIOXIDE 23.2 mEq/L (21.0-31.0); CHLORIDE 113 mEq/L (98-107); CREATININE - SERUM 1.7 mg/dL (0.6-1.2); GLUCOSE 201 mg/dL (70-105); POTASSIUM SERUM 3.4 mEq/L (3.5-5.1); SODIUM SERUM 144 mEq/L (136-145)
[2017-06-30] MEDS: Morphine Sulfate 2 mg/mL 1mL Syr IVP PRN ×4 (04:23→19:49)
[2017-06-30 05:11] LABS: BAND NEUTROPHILE 7 % (0-10); LYMPHOCYTE 5 % (20-50); MONOCYTE 2 % (2-10); NEUTROPHILS 86 % (40-80); PLATELET ESTIMATE ADEQUATE (NORMAL); TOTAL CELLS COUNTED 100
[2017-06-30] MEDS ORDERED: metroNIDAZOLE 500mg/NS 100mL 500 MG/100 ML BAG IV SCH (06:00)
[2017-06-30] MEDS: metroNIDAZOLE 500mg/NS 100mL 500 MG/100 ML BAG IV SCH ×3 (06:23→20:39)
[2017-06-30] MEDS ORDERED: Piperacillin Sodium/Tazobact 3.375 gm Vial IV ONE (06:32)
[2017-06-30] MEDS: INSULIN ASPART, RECOMBINANT 100 UNITS/ML SUBQ SCH ×4 (06:40→20:57)
--- NOTE | 2017-06-30 08:48 | General Progress Note ---
Subjective - Review of Systems Service Date: 06/30/17 Events since last encounter: may give meds per NGT dressings dry WBC up, on Zosyn and Flagyl Objective - Results Result Diagrams: 06/30/17 03:52 06/30/17 03:52 Recent Labs: Laboratory Last Values WBC 18.2 Th/cmm (4.8-10.8) H D 06/30/17 03:52 RBC 2.88 Mil/cmm (3.80-5.20) L 06/30/17 03:52 Hgb 8.1 gm/dL (12-16) L 06/30/17 03:52 Hct 24.5 % (41.0-60) L 06/30/17 03:52 MCV 85.1 fl (81-100) 06/30/17 03:52 MCH 28.2 pg (27.0-31.0) 06/30/17 03:52 MCHC Differential 33.2 pg (28.0-36.0) 06/30/17 03:52 RDW 15.5 % (11.5-20.0) 06/30/17 03:52 Plt Count 485 Th/cmm (150-400) H 06/30/17 03:52 MPV 7.9 fl 06/30/17 03:52 Neutrophils % 84.4 % (40.0-80.0) H 06/29/17 04:30 Band Neutrophils % 7 % (0-10) 06/30/17 03:52 Lymphocytes % 9.8 % (20.0-50.0) L 06/29/17 04:30 Monocytes % 5.3 % (2.0-10.0) 06/29/17 04:30 Eosinophils % 0.1 % (0.0-5.0) 06/29/17 04:30 Basophils % 0.4 % (0.0-2.0) 06/29/17 04:30 Neutrophils (Manual) 86 % (40-80) H 06/30/17 03:52 Lymphocytes 5 % (20-50) L 06/30/17 03:52 Monocytes 2 % (2-10) 06/30/17 03:52 Platelet Estimate ADEQUATE (NORMAL) 06/30/17 03:52 PT 11.8 SECONDS (9.5-11.5) H 06/28/17 04:10 INR 1.12 (0.5-1.4) 06/28/17 04:10 PTT (Actin FS) 29.9 SECONDS (26.0-38.0) 06/30/17 03:52 D-Dimer 3600 ng/mL (100-400) H 06/21/17 18:20 Specimen Source Arterial 06/28/17 10:55 Sample Site Right Radial 06/28/17 10:55 pH 7.44 (7.35-7.45) 06/28/17 10:55 pCO2 36.0 mmHg (35.0-45.0) 06/28/17 10:55 pO2 100.0 mmHg (80.0-100.0) 06/28/17 10:55 HCO3 25.4 mEq/L (20.0-26.0) 06/28/17 10:55 Base Excess 0.6 mEq/L (-3.0-3.0) 06/28/17 10:55 O2 Saturation 98.0 % (92.0-100.0) 06/28/17 10:55 Rashid Test Positive 06/28/17 10:55 Vent Rate N/A 06/28/17 10:55 Inspired O2 28 06/28/17 10:55 Tidal Volume N/A 06/28/17 10:55 PEEP N/A 06/28/17 10:55 Pressure (ins/psv/peep) N/A 06/28/17 10:55 Critical Value DM 06/28/17 10:55 Sodium 144 mEq/L (136-145) 06/30/17 03:52 Potassium 3.4 mEq/L (3.5-5.1) L 06/30/17 03:52 Chloride 113 mEq/L (98-107) H 06/30/17 03:52 Carbon Dioxide 23.2 mEq/L (21.0-31.0) 06/30/17 03:52 Anion Gap 11.2 (7.0-16.0) 06/30/17 03:52 BUN 20 mg/dL (7-25) 06/30/17 03:52 Creatinine 1.7 mg/dL (0.6-1.2) H 06/30/17 03:52 Est GFR ( Amer) TNP 06/30/17 03:52 Est GFR (Non-Af Amer) TNP 06/30/17 03:52 BUN/Creatinine Ratio 11.8 06/30/17 03:52 Glucose 201 mg/dL (70-105) H 06/30/17 03:52 POC Glucose 196 MG/DL (70 - 105) H 06/30/17 06:30 Hemoglobin A1c % 11.7 % (4.0-6.0) H 06/21/17 18:20 Calcium 8.9 mg/dL (8.6-10.3) 06/30/17 03:52 Magnesium 2.0 mg/dL (1.9-2.7) 06/30/17 03:52 Iron 19 ug/dL (27-139) L 06/22/17 05:20 TIBC 176 ug/dL (250-450) L 06/22/17 05:20 Iron Saturation 11 % (15-55) L 06/22/17 05:20 Unsaturated IBC 157 ug/dL (118-369) 06/22/17 05:20 Ferritin 164 ng/mL (15-150) H 06/22/17 05:20 Total Bilirubin 0.2 mg/dL (0.3-1.0) L 06/28/17 04:10 AST 24 U/L (13-39) 06/28/17 04:10 ALT 19 U/L (7-52) 06/28/17 04:10 Alkaline Phosphatase 66 U/L (34-104) 06/28/17 04:10 Ammonia 36 umol/L (16-53) 06/30/17 03:52 Creatine Kinase 39 U/L (30-223) 06/21/17 18:20 Troponin I 0.01 ng/mL (0.01-0.05) 06/21/17 18:20 B-Natriuretic Peptide 150.0 pg/mL (5.0-100.0) H 06/30/17 03:52 Total Protein 5.6 gm/dL (6.0-8.3) L 06/28/17 04:10 Albumin 2.3 gm/dL (3.7-5.3) L 06/28/17 04:10 Globulin 3.3 gm/dL 06/28/17 04:10 Albumin/Globulin Ratio 0.7 (1.0-1.8) L 06/28/17 04:10 Triglycerides 104 mg/dL (<150) 06/21/17 18:20 Cholesterol 129 mg/dL (<200) 06/21/17 18:20 LDL Cholesterol Direct 65 mg/dL (75-193) L 06/21/17 18:20 HDL Cholesterol 43 mg/dL (23-92) 06/21/17 18:20 Vitamin B12 621 pg/mL (232-1245) 06/22/17 05:20 Folic Acid 14.7 ng/mL (>3.0) 06/22/17 05:20 Helicobacter pylori Ab POSITIVE (NEGATIVE) 06/23/17 10:50 Blood Type O POSITIVE 06/26/17 10:15 Antibody Screen NEGATIVE 06/26/17 10:15 Crossmatch See Detail 06/26/17 10:15 - Physical Exam Vitals and I&O: Vital Signs Temp 97.9 F 06/30/17 04:00 Pulse 98 06/30/17 06:00 Resp 14 06/30/17 06:00 BP 160/77 06/30/17 06:00 Pulse Ox 97 06/30/17 06:00 Intake & Output 06/29/17 06/30/17 06/30/17 18:59 06:59 18:59 Intake Total 080.949 2880.267 Output Total 350 300 Balance -34.805 1704.267 Weight (lbs) 55.026 kg 56.727 kg Intake: Intake, IV Amount 822.225 4424.267 D5-0.9%Ns 1,000 ml @ 80 1650.667 mls/hr IV .[id number] [facility] Rx #:[id number] Heparin 25,000 Units In 88.195 D5W 25,000 units In 250 ml @ Titrate IV TITR PRN Rx#:[id number] Heparin 25,000 Units In 101.600 D5W 25,000 units In 250 ml @ Titrate IV TITR PRN Rx#:[id number] Iron Dextran Complex 100 102 mg In Sodium Chloride 0.9 % 100 ml @ 100 mls/hr IV Q24H [facility] Rx#:[id number] Other 125 252 Output: Urine 150 300 Stool 0 0 Other 200 Active Medications: Current Medications Acetaminophen (Tylenol) 650 mg PO Q4H PRN PRN Reason: Pain Or Fever above 101 Stop: 08/20/17 19:40 Al Hydrox/Mg Hydrox/Simethicone (Maalox) 30 ml PO Q6H PRN PRN Reason: Dyspepsia Stop: 08/20/17 19:40 Albuterol Sulfate (Albuterol 2.5mg/3ml Neb Ud) 2.5 mg HHN Q2HRT PRN PRN Reason: Shortness of Breath or Wheeze Stop: 08/20/17 19:40 Amlodipine Besylate (Norvasc) 10 mg PO DAILY [facility] Stop: 08/21/17 08:59 Last Admin: 06/29/17 09:30 Dose: Not Given Clonidine HCl (Hhknbzys-Bxm-6) 1 patch TD We ED Stop: 08/28/17 13:14 Last Admin: 06/29/17 13:30 Dose: 1 patch Enalaprilat (Vasotec) 1.25 mg IVP Q6HR PRN PRN Reason: Sbp Above 170MMHG Stop: 08/22/17 11:59 Guaifenesin (Robitussin) 200 mg PO Q4HR PRN PRN Reason: Cough or Congestion Stop: 08/20/17 19:40 Haloperidol Decanoate (Haldol Dec) 25 mg IM QMONTH ED Stop: 08/23/17 09:59 Last Admin: 06/24/17 09:10 Dose: 25 mg Hydralazine HCl (Apresoline 20 Mg/Ml) 10 mg IV Q6HR PRN PRN Reason: SBP ABOVE 160 Stop: 08/25/17 12:20 Last Admin: 06/30/17 04:23 Dose: 10 mg Dextrose/Sodium Chloride (D5-0.9%Ns) 1,000 mls @ 80 mls/hr IV .[id number] [facility] Stop: 08/20/17 19:44 Last Infusion: 06/30/17 06:46 Dose: 80 mls/hr Iron Dextran 100 mg/ Sodium (Chloride) 102 mls @ 100 mls/hr IV Q24H [facility] Stop: 07/01/17 18:02 Last Infusion: 06/29/17 18:15 Dose: Infused Heparin Sodium/Dextrose (Heparin Drip) 25,000 units in 250 mls @ 0 mls/hr IV TITR PRN; Protocol; Titrate PRN Reason: PROTOCOL Stop: 08/28/17 17:20 Last Titration: 06/30/17 01:41 Dose: 14.9 mls/hr Piperacillin Sod/Tazobactam (Sod 3.375 gm/ Sodium Chloride) 50 mls @ 100 mls/ hr IV Q6HR [facility] Stop: 07/10/17 05:59 Last Admin: 06/30/17 08:18 Dose: 100 mls/hr Metronidazole (Flagyl) 500 mg in 100 mls @ 100 mls/hr IV Q8HR [facility] Stop: 08/29/17 06:14 Last Admin: 06/30/17 06:23 Dose: 100 mls/hr Insulin Aspart (Novolog) 0 units SUBQ ACHS ED PRN Reason: Protocol Stop: 08/21/17 16:29 Last Admin: 06/30/17 06:40 Dose: Not Given Ipratropium [place] (Atrovent Neb 0.5mg/2.5ml) 0.5 mg IH Q2HRT PRN PRN Reason: Shortness of Breath or Wheeze Stop: 08/20/17 19:40 Mirtazapine (Remeron) 15 mg PO HS [facility] PRN Reason: Protocol Stop: 08/20/17 20:59 Last Admin: 06/29/17 23:57 Dose: Not Given Miscellaneous (Heparin Drip Per Pharmacy) 1 ea MC PRN [facility] PRN Reason: Protocol Stop: 08/27/17 20:14 Morphine Sulfate (Morphine) 2 mg IVP Q3H PRN PRN Reason: Pain (Severe) Stop: 08/20/17 19:40 Last Admin: 06/30/17 08:12 Dose: 2 mg Nitroglycerin (Nitrostat) 0.4 mg SL Q5MIN PRN PRN Reason: Chest Pain Stop: 08/20/17 19:40 Ondansetron HCl (Zofran) 4 mg IV Q8H PRN PRN Reason: Nausea / Vomiting Stop: 08/20/17 19:40 General: Other (extubated) HEENT: Atraumatic Neck: Supple Cardiovascular: Regular rate Abdomen: Bowel sounds, Soft, Other (dressing in midline no bleeding) Extremities: Other (right arm hematoma) - Procedures Procedures: Procedures Procedure Code Date PARTIAL REMOVAL OF COLON 98617 06/21/17 RESECTION OF RIGHT LARGE INTESTINE, OPEN APPROACH [id number] 06/21/17 Assessment/Plan - Problem List Patient Problems: All Active Problems Altered mental status (Acute) R41.82 Failure to thrive (Acute) [id number] Schizophrenia (Acute) F20.9 Anxiety (Chronic) F41.9 Chronic Kidney Disease (Chronic) Hypertension (Chronic) Nutritional Asmnt/Malnutr-PDOC - Dietary Evaluation Malnutrition Findings (Please click <Entered> for more info): Nutritional Asmnt/Malnutrition Start: 06/22/17 18: 04 Text: Status: Complete Freq: Document 06/22/17 18:04 GRISELDA (Rec: 06/22/17 18:15 LCHENG [email or web address]) Nutritional Asmnt/Malnutrition Patient General Information Nutritional Screening High Risk Consult Diagnosis left lower extremity DVT, severe anemia, CHF, HTN Pertinent Medical Hx/Surgical Hx DM, anemia, renal stones, schizophrenia Subjective Information Pt seen lying in bed, confused at time of visit. Spoke with LULÚ Seay, RN reported pt ate well, consumed 60% of breakfast this morning. Per notes, pt has EGD and colonoscopy scheduled tommorrow. Current Diet Order/ Nutrition Support pureed Pertinent Medications D5-0.9ns, novolog, remeron, kcl Pertinent Labs 06/21 Na 137, K 3.5, Cl 100, BUN 24, Cr 1.3, Glucose 186, AST 10, ALT 6, Alb 2.6 06/22 POC 383 Nutritional Hx/Data Height 1.52 m Height (Calculated Centimeters) 152.4 Current Weight (lbs) 39.009 kg Weight (Calculated Kilograms) 39.0 Weight (Calculated Grams) 69143.9 [place] Body Weight 100 % [place] Body Weight 86 Body Mass Index (BMI) 16.7 Weight Status Underweight GI Symptoms GI Symptoms None Last BM none Difficult in: None Skin Integrity/Comment: intact Current %PO Fair (50-74%) Estimated Nutritional Goals Calories/Kcals/Kg 25-30 based on IBW 45kg Kcals Calculated 6834-9320 Protein g/k-1.2 Protein Calculated 45-54 Fluid: ml 1125-1350ml (1ml/kcal) Nutritional Problem 1. Problem Problem altered nutrition related lab values Etiology hx of DM Signs/Symptoms: Glucose 186, POC 383 Malnutrition Alert Protein-Calorie Malnutrition N/A Is there a minimum of two criteria No selected? Query Text:Check all the applicable criteria. A minimum of two criteria are recommended for diagnosis of either severe or non-severe malnutrition. Intervention/Recommendation Comments 1. [facility], low sodium diet for optimal glycemic and BP control. RN notified. 2. Monitor PO intake, wt, labs and skin integrity 3. F/U as high risk in 2-3 days, 06/24-06/25 Expected Outcomes/Goals Expected Outcomes/Goals 1. PO intake to meet at least 75% of nutritional needs. 2. Wt stability, skin to remain intact, labs to improve
--- NOTE | 2017-06-30 10:23 | Diagnostic Imaging Report ---
Portable chest x-ray HISTORY: Nasogastric tube placement, shortness of breath Compared with a prior exam of June 29, 2017, a nasogastric tube has been inserted. The tip extends into the region of the stomach. Compared to prior study, no focal pulmonary processes are seen. The heart size remains normal. IMPRESSION: 1. Nasogastric tube placement as noted above 2. Clearing in previously noted faint linear density within the left perihilar region. No other focal processes.
[2017-06-30] MEDS ORDERED: Probiotic Screen MC PRN (12:00)
--- NOTE | 2017-06-30 13:00 | Internal Medicine Prog Note ---
Internal Medicine Subjective - Subjective Service Date: 06/30/17 Patient seen and examined:: with staff Patient is:: awake, non-interactive Patient Complaints of:: congestion Per staff patient has:: no adverse event, no episodes of fall, noncompliant, tolerating meds Internal Medicine Objective - Results Result Diagrams: 06/30/17 03:52 06/30/17 03:52 Recent Labs: Laboratory Last Values WBC 18.2 Th/cmm (4.8-10.8) H D 06/30/17 03:52 RBC 2.88 Mil/cmm (3.80-5.20) L 06/30/17 03:52 Hgb 8.1 gm/dL (12-16) L 06/30/17 03:52 Hct 24.5 % (41.0-60) L 06/30/17 03:52 MCV 85.1 fl (81-100) 06/30/17 03:52 MCH 28.2 pg (27.0-31.0) 06/30/17 03:52 MCHC Differential 33.2 pg (28.0-36.0) 06/30/17 03:52 RDW 15.5 % (11.5-20.0) 06/30/17 03:52 Plt Count 485 Th/cmm (150-400) H 06/30/17 03:52 MPV 7.9 fl 06/30/17 03:52 Neutrophils % 84.4 % (40.0-80.0) H 06/29/17 04:30 Band Neutrophils % 7 % (0-10) 06/30/17 03:52 Lymphocytes % 9.8 % (20.0-50.0) L 06/29/17 04:30 Monocytes % 5.3 % (2.0-10.0) 06/29/17 04:30 Eosinophils % 0.1 % (0.0-5.0) 06/29/17 04:30 Basophils % 0.4 % (0.0-2.0) 06/29/17 04:30 Neutrophils (Manual) 86 % (40-80) H 06/30/17 03:52 Lymphocytes 5 % (20-50) L 06/30/17 03:52 Monocytes 2 % (2-10) 06/30/17 03:52 Platelet Estimate ADEQUATE (NORMAL) 06/30/17 03:52 PT 11.8 SECONDS (9.5-11.5) H 06/28/17 04:10 INR 1.12 (0.5-1.4) 06/28/17 04:10 PTT (Actin FS) 38.8 SECONDS (26.0-38.0) H 06/30/17 10:00 D-Dimer 3600 ng/mL (100-400) H 06/21/17 18:20 Specimen Source Arterial 06/28/17 10:55 Sample Site Right Radial 06/28/17 10:55 pH 7.44 (7.35-7.45) 06/28/17 10:55 pCO2 36.0 mmHg (35.0-45.0) 06/28/17 10:55 pO2 100.0 mmHg (80.0-100.0) 06/28/17 10:55 HCO3 25.4 mEq/L (20.0-26.0) 06/28/17 10:55 Base Excess 0.6 mEq/L (-3.0-3.0) 06/28/17 10:55 O2 Saturation 98.0 % (92.0-100.0) 06/28/17 10:55 Rashid Test Positive 06/28/17 10:55 Vent Rate N/A 06/28/17 10:55 Inspired O2 28 06/28/17 10:55 Tidal Volume N/A 06/28/17 10:55 PEEP N/A 06/28/17 10:55 Pressure (ins/psv/peep) N/A 06/28/17 10:55 Critical Value DM 06/28/17 10:55 Sodium 144 mEq/L (136-145) 06/30/17 03:52 Potassium 3.4 mEq/L (3.5-5.1) L 06/30/17 03:52 Chloride 113 mEq/L (98-107) H 06/30/17 03:52 Carbon Dioxide 23.2 mEq/L (21.0-31.0) 06/30/17 03:52 Anion Gap 11.2 (7.0-16.0) 06/30/17 03:52 BUN 20 mg/dL (7-25) 06/30/17 03:52 Creatinine 1.7 mg/dL (0.6-1.2) H 06/30/17 03:52 Est GFR ( Amer) TNP 06/30/17 03:52 Est GFR (Non-Af Amer) TNP 06/30/17 03:52 BUN/Creatinine Ratio 11.8 06/30/17 03:52 Glucose 201 mg/dL (70-105) H 06/30/17 03:52 POC Glucose 207 MG/DL (70 - 105) H 06/30/17 11:32 Hemoglobin A1c % 11.7 % (4.0-6.0) H 06/21/17 18:20 Calcium 8.9 mg/dL (8.6-10.3) 06/30/17 03:52 Magnesium 2.0 mg/dL (1.9-2.7) 06/30/17 03:52 Iron 19 ug/dL (27-139) L 06/22/17 05:20 TIBC 176 ug/dL (250-450) L 06/22/17 05:20 Iron Saturation 11 % (15-55) L 06/22/17 05:20 Unsaturated IBC 157 ug/dL (118-369) 06/22/17 05:20 Ferritin 164 ng/mL (15-150) H 06/22/17 05:20 Total Bilirubin 0.2 mg/dL (0.3-1.0) L 06/28/17 04:10 AST 24 U/L (13-39) 06/28/17 04:10 ALT 19 U/L (7-52) 06/28/17 04:10 Alkaline Phosphatase 66 U/L (34-104) 06/28/17 04:10 Ammonia 36 umol/L (16-53) 06/30/17 03:52 Creatine Kinase 39 U/L (30-223) 06/21/17 18:20 Troponin I 0.01 ng/mL (0.01-0.05) 06/21/17 18:20 B-Natriuretic Peptide 150.0 pg/mL (5.0-100.0) H 06/30/17 03:52 Total Protein 5.6 gm/dL (6.0-8.3) L 06/28/17 04:10 Albumin 2.3 gm/dL (3.7-5.3) L 06/28/17 04:10 Globulin 3.3 gm/dL 06/28/17 04:10 Albumin/Globulin Ratio 0.7 (1.0-1.8) L 06/28/17 04:10 Triglycerides 104 mg/dL (<150) 06/21/17 18:20 Cholesterol 129 mg/dL (<200) 06/21/17 18:20 LDL Cholesterol Direct 65 mg/dL (75-193) L 06/21/17 18:20 HDL Cholesterol 43 mg/dL (23-92) 06/21/17 18:20 Vitamin B12 621 pg/mL (232-1245) 06/22/17 05:20 Folic Acid 14.7 ng/mL (>3.0) 06/22/17 05:20 Helicobacter pylori Ab POSITIVE (NEGATIVE) 06/23/17 10:50 Blood Type O POSITIVE 06/26/17 10:15 Antibody Screen NEGATIVE 06/26/17 10:15 Crossmatch See Detail 06/26/17 10:15 - Physical Exam Vitals and I&O: Vital Signs Temp 97.1 F 06/30/17 12:00 Pulse 92 06/30/17 12:00 Resp 14 06/30/17 12:00 BP 163/73 06/30/17 12:00 Pulse Ox 98 06/30/17 12:00 Intake & Output 06/29/17 06/30/17 06/30/17 18:59 06:59 18:59 Intake Total 212.486 5996.267 150 Output Total 350 300 Balance -34.805 1704.267 150 Weight (lbs) 121 lb 5 oz 125 lb 1 oz Intake: Intake, IV Amount 351.752 0244.267 150 D5-0.9%Ns 1,000 ml @ 80 1650.667 mls/hr IV .[id number] ED Rx #:[id number] Heparin 25,000 Units In 88.195 D5W 25,000 units In 250 ml @ Titrate IV TITR PRN Rx#:[id number] Heparin 25,000 Units In 101.600 D5W 25,000 units In 250 ml @ Titrate IV TITR PRN Rx#:[id number] Iron Dextran Complex 100 102 mg In Sodium Chloride 0.9 % 100 ml @ 100 mls/hr IV Q24H ED Rx#:[id number] Piperacillin Sodium/ 50 Tazobact 3.375 gm In Sodium Chloride 0.9% 50 ml @ 100 mls/hr IV Q6HR ED Rx#:[id number] metroNIDAZOLE 500mg/NS 100 100mL 500 mg In 100 ml @ 100 mls/hr IV Q8HR [facility] Rx #:[id number] Other 125 252 Output: Urine 150 300 Stool 0 0 Other 200 Active Medications: Current Medications Acetaminophen (Tylenol) 650 mg PO Q4H PRN PRN Reason: Pain Or Fever above 101 Stop: 08/20/17 19:40 Al Hydrox/Mg Hydrox/Simethicone (Maalox) 30 ml PO Q6H PRN PRN Reason: Dyspepsia Stop: 08/20/17 19:40 Albuterol Sulfate (Albuterol 2.5mg/3ml Neb Ud) 2.5 mg HHN Q2HRT PRN PRN Reason: Shortness of Breath or Wheeze Stop: 08/20/17 19:40 Amlodipine Besylate (Norvasc) 10 mg PO DAILY [facility] Stop: 08/21/17 08:59 Last Admin: 06/30/17 08:51 Dose: 10 mg Clonidine HCl (Rvwwrjvt-Kpm-7) 1 patch TD We [facility] Stop: 08/28/17 13:14 Last Admin: 06/29/17 13:30 Dose: 1 patch Enalaprilat (Vasotec) 1.25 mg IVP Q6HR PRN PRN Reason: Sbp Above 170MMHG Stop: 08/22/17 11:59 Last Admin: 06/30/17 09:17 Dose: 1.25 mg Guaifenesin (Robitussin) 200 mg PO Q4HR PRN PRN Reason: Cough or Congestion Stop: 08/20/17 19:40 Haloperidol Decanoate (Haldol Dec) 25 mg IM QMONTH [facility] Stop: 08/23/17 09:59 Last Admin: 06/24/17 09:10 Dose: 25 mg Hydralazine HCl (Apresoline 20 Mg/Ml) 10 mg IV Q6HR PRN PRN Reason: SBP ABOVE 160 Stop: 08/25/17 12:20 Last Admin: 06/30/17 04:23 Dose: 10 mg Iron Dextran 100 mg/ Sodium (Chloride) 102 mls @ 100 mls/hr IV Q24H [facility] Stop: 07/01/17 18:02 Last Infusion: 06/29/17 18:15 Dose: Infused Heparin Sodium/Dextrose (Heparin Drip) 25,000 units in 250 mls @ 0 mls/hr IV TITR PRN; Protocol; Titrate PRN Reason: PROTOCOL Stop: 08/28/17 17:20 Last Titration: 06/30/17 01:41 Dose: 14.9 mls/hr Piperacillin Sod/Tazobactam (Sod 3.375 gm/ Sodium Chloride) 50 mls @ 100 mls/ hr IV Q6HR [facility] Stop: 07/10/17 05:59 Last Admin: 06/30/17 11:34 Dose: 100 mls/hr Metronidazole (Flagyl) 500 mg in 100 mls @ 100 mls/hr IV Q8HR ED Stop: 08/29/17 06:14 Last Infusion: 06/30/17 07:30 Dose: Infused Potassium Chloride/Dextrose/Sod Cl (D5-0.45ns W/40 Meq Kcl) 1,000 mls @ 75 mls/ hr IV .[id number] [facility] Stop: 08/29/17 12:44 Insulin Aspart (Novolog) 0 units SUBQ ACHS ED PRN Reason: Protocol Stop: 08/21/17 16:29 Last Admin: 06/30/17 11:43 Dose: 2 units Ipratropium [place] (Atrovent Neb 0.5mg/2.5ml) 0.5 mg IH Q2HRT PRN PRN Reason: Shortness of Breath or Wheeze Stop: 08/20/17 19:40 Lactobacillus Rhamnosus (Culturelle 15b) 1 each PO DAILY [facility] Stop: 08/30/17 08:59 Mirtazapine (Remeron) 15 mg PO HS ED PRN Reason: Protocol Stop: 08/20/17 20:59 Last Admin: 06/29/17 23:57 Dose: Not Given Miscellaneous (Heparin Drip Per Pharmacy) 1 ea MC PRN ED PRN Reason: Protocol Stop: 08/27/17 20:14 Miscellaneous (Probiotic Screen) 1 ea MC PRN PRN PRN Reason: PROTOCOL Stop: 08/29/17 11:59 Morphine Sulfate (Morphine) 2 mg IVP Q3H PRN PRN Reason: Pain (Severe) Stop: 08/20/17 19:40 Last Admin: 06/30/17 08:12 Dose: 2 mg Nitroglycerin (Nitrostat) 0.4 mg SL Q5MIN PRN PRN Reason: Chest Pain Stop: 08/20/17 19:40 Ondansetron HCl (Zofran) 4 mg IV Q8H PRN PRN Reason: Nausea / Vomiting Stop: 08/20/17 19:40 General: weak, alert HEENT: NC/AT, PERRLA Neck: Supple Lungs: ronchi Cardiovascular: RRR, Normal S1, Normal S2, without murmur Abdomen: soft, non-tender, non-distended, positive bowel sound Extremities: excoriation Neurological: alert - Procedures Procedures: Procedures Procedure Code Date PARTIAL REMOVAL OF COLON 65045 06/21/17 RESECTION OF RIGHT LARGE INTESTINE, OPEN APPROACH [id number] 06/21/17 Internal Medicine Assmt/Plan - Assessment Assessment: acute dvt cecal mass s/p exploratory lap right right hemicolectomy severe anemia dm2 schizophrenia htn psychosis hypokalemia - Plan Plan: monitor electrolytes follow up labs in am will follow cost consultant recommendations Nutritional Asmnt/Malnutr-PDOC - Dietary Evaluation Malnutrition Findings (Please click <Entered> for more info): Nutritional Asmnt/Malnutrition Start: 06/22/17 18: 04 Text: Status: Complete Freq: Document 06/22/17 18:04 LCHENG (Rec: 06/22/17 18:15 LCHENG [email or web address]) Nutritional Asmnt/Malnutrition Patient General Information Nutritional Screening High Risk Consult Diagnosis left lower extremity DVT, severe anemia, CHF, HTN Pertinent Medical Hx/Surgical Hx DM, anemia, renal stones, schizophrenia Subjective Information Pt seen lying in bed, confused at time of visit. Spoke with LULÚ Seay, RN reported pt ate well, consumed 60% of breakfast this morning. Per notes, pt has EGD and colonoscopy scheduled tommorrow. Current Diet Order/ Nutrition Support pureed Pertinent Medications D5-0.9ns, novolog, remeron, kcl Pertinent Labs 06/21 Na 137, K 3.5, Cl 100, BUN 24, Cr 1.3, Glucose 186, AST 10, ALT 6, Alb 2.6 06/22 POC 383 Nutritional Hx/Data Height 5 ft Height (Calculated Centimeters) 152.4 Current Weight (lbs) 86 lb Weight (Calculated Kilograms) 39.0 Weight (Calculated Grams) 97461.9 [place] Body Weight 100 % [place] Body Weight 86 Body Mass Index (BMI) 16.7 Weight Status Underweight GI Symptoms GI Symptoms None Last BM none Difficult in: None Skin Integrity/Comment: intact Current %PO Fair (50-74%) Estimated Nutritional Goals Calories/Kcals/Kg 25-30 based on IBW 45kg Kcals Calculated 2076-4456 Protein g/k-1.2 Protein Calculated 45-54 Fluid: ml 1125-1350ml (1ml/kcal) Nutritional Problem 1. Problem Problem altered nutrition related lab values Etiology hx of DM Signs/Symptoms: Glucose 186, POC 383 Malnutrition Alert Protein-Calorie Malnutrition N/A Is there a minimum of two criteria No selected? Query Text:Check all the applicable criteria. A minimum of two criteria are recommended for diagnosis of either severe or non-severe malnutrition. Intervention/Recommendation Comments 1. Recommend CCHO, low sodium diet for optimal glycemic and BP control. RN notified. 2. Monitor PO intake, wt, labs and skin integrity 3. F/U as high risk in 2-3 days, 06/24-06/25 Expected Outcomes/Goals Expected Outcomes/Goals 1. PO intake to meet at least 75% of nutritional needs. 2. Wt stability, skin to remain intact, labs to improve
[2017-06-30] MEDS: D5-0.45NS w/40 mEq KCL 1,000 ML IV SCH (13:33)
[2017-06-30] MEDS: Heparin 25,000 Units In D5W 25,000 UNITS/250 ML BAG IV PRN (13:55)
--- NOTE | 2017-06-30 14:39 | Pathology Report ---
[id number] Collection Date: 06/27/2017 Surgeon: Dr. Sugar Tapia Specimen Description: Right hemicolectomy. Gross Description: Received in formalin is a right hemicolectomy specimen consisting of a single resection specimen with 3 cm of terminal ileum and 23 cm of cecum and ascending colon. The outer diameter of the ileum measures 2.0 cm with the outer diameter of the colon measuring up to 4.0 cm. Only a small amount of attached yellow fatty tissue is seen on the outer surface of the specimen, which has a smooth, glistening serosal lining without evidence for induration or tumor on the outer surface. Opening the specimen shows a terminal ileum and ascending colon mucosa with the cecum containing a slightly raised polypoid mass that measures 3.5 cm in length x up to 1.2 cm in height. Sectioning of this lesion shows a raised polypoid structure that is well demarcated and shows no evidence of invasion of the underlying muscle. The outer serosal surface is inked blue in this region. A second raised polypoid lesion is identified in the ascending colon measuring 2 cm in length x up to 0.7 cm in height. Sectioning of this second polyp also shows a well demarcated pedunculated structure with no evidence for invasion of the underlying muscular wall (also inked blue at the outer serosal surface). The surrounding colon mucosa has the usual folded appearance, and the proximal and distal mucosal margins show no gross evidence for abnormality, located more than 5 cm from the polyps. Attached to the cecum is a 4 cm in length x 0.8 cm in diameter appendix which contains an intact wall and mucosa. [employer] sections are submitted in 17 cassettes labeled A1 to A17. Cassette A1 shows appendix, cassette A2 shows cecal margin, cassette A3 shows distal margin, cassette A4 shows the ileocecal valve, cassettes A5 to A7 show the ascending colon polyp (2 cm), cassettes A8 to A12 show the cecal polyp (3.5 cm), cassettes A13 to A16 show the pericolic lymph nodes. Microscopic Description: The histologic sections show a partial colon resection specimen consisting of a short segment of terminal ileum with the cecum and ascending colon. The margins show no evidence for abnormality. The appendix is also without abnormality. There are two separate raised polyps identified, both showing villous as well as tubular structures, consistent with tubulovillous adenoma. The adenomatous glands show nuclear enlargement and stratification with high grade dysplasia identified focally in the smaller ascending colon polyp. The larger cecal polyp shows more extensive high grade dysplasia, focal areas of in situ adenocarcinoma identified (slides A8-12). This consists of crowded and atypical glands that form cribriform structures with queb-it-clft placement and merging of glands identified. There is moderate nuclear atypia present with all of these atypical glands being confined to the mucosa. There is No evidence for submucosa or muscular wall invasion. Examination of the pericolic lymph nodes also shows no evidence for tumor (zero out of ten). Diagnosis: 1. 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 2. There is no evidence for invasion into the submucosa or muscular wall. 3. A smaller 2 cm tubulovillous adenoma is identified in the ascending colon. 4. There is no evidence for invasive adenocarcinoma, and the pericolic lymph nodes are also negative for tumor. Comment: In situ/intramucosal adenocarcinoma is identified in several areas within the 3.5 cm. cecal polyp, occupying less than a third of the overall polyp, and does not form a discrete mass lesion that can be measured for tumor size. The most severe atypia is merged and blends in with the areas of high-grade dysplasia present throughout the polyp. There is no evidence for invasive tumor, and the margins of resection are also negative. This would be considered an early noninvasive malignancy (Tis, N0 using the TNM staging classification). These findings are discussed with Dr. Daniela Helton and Dr. Sugar Tapia on 07/01/2017. [facility]# [id number] [facility]
[2017-06-30] MEDS: IRON DEXTRAN IV SCH (16:53)
[2017-06-30] MEDS: NS 0.9% IV SCH (16:53)
--- NOTE | 2017-06-30 20:58 | General Progress Note ---
Subjective - Review of Systems Service Date: 06/30/17 Objective - Results Result Diagrams: 06/30/17 03:52 06/30/17 03:52 Recent Labs: Laboratory Last Values WBC 18.2 Th/cmm (4.8-10.8) H D 06/30/17 03:52 RBC 2.88 Mil/cmm (3.80-5.20) L 06/30/17 03:52 Hgb 8.1 gm/dL (12-16) L 06/30/17 03:52 Hct 24.5 % (41.0-60) L 06/30/17 03:52 MCV 85.1 fl (81-100) 06/30/17 03:52 MCH 28.2 pg (27.0-31.0) 06/30/17 03:52 MCHC Differential 33.2 pg (28.0-36.0) 06/30/17 03:52 RDW 15.5 % (11.5-20.0) 06/30/17 03:52 Plt Count 485 Th/cmm (150-400) H 06/30/17 03:52 MPV 7.9 fl 06/30/17 03:52 Neutrophils % 84.4 % (40.0-80.0) H 06/29/17 04:30 Band Neutrophils % 7 % (0-10) 06/30/17 03:52 Lymphocytes % 9.8 % (20.0-50.0) L 06/29/17 04:30 Monocytes % 5.3 % (2.0-10.0) 06/29/17 04:30 Eosinophils % 0.1 % (0.0-5.0) 06/29/17 04:30 Basophils % 0.4 % (0.0-2.0) 06/29/17 04:30 Neutrophils (Manual) 86 % (40-80) H 06/30/17 03:52 Lymphocytes 5 % (20-50) L 06/30/17 03:52 Monocytes 2 % (2-10) 06/30/17 03:52 Platelet Estimate ADEQUATE (NORMAL) 06/30/17 03:52 PT 11.8 SECONDS (9.5-11.5) H 06/28/17 04:10 INR 1.12 (0.5-1.4) 06/28/17 04:10 PTT (Actin FS) 118.8 SECONDS (26.0-38.0) H* 06/30/17 18:19 D-Dimer 3600 ng/mL (100-400) H 06/21/17 18:20 Specimen Source Arterial 06/28/17 10:55 Sample Site Right Radial 06/28/17 10:55 pH 7.44 (7.35-7.45) 06/28/17 10:55 pCO2 36.0 mmHg (35.0-45.0) 06/28/17 10:55 pO2 100.0 mmHg (80.0-100.0) 06/28/17 10:55 HCO3 25.4 mEq/L (20.0-26.0) 06/28/17 10:55 Base Excess 0.6 mEq/L (-3.0-3.0) 06/28/17 10:55 O2 Saturation 98.0 % (92.0-100.0) 06/28/17 10:55 Rashid Test Positive 06/28/17 10:55 Vent Rate N/A 06/28/17 10:55 Inspired O2 28 06/28/17 10:55 Tidal Volume N/A 06/28/17 10:55 PEEP N/A 06/28/17 10:55 Pressure (ins/psv/peep) N/A 06/28/17 10:55 Critical Value DM 06/28/17 10:55 Sodium 144 mEq/L (136-145) 06/30/17 03:52 Potassium 3.4 mEq/L (3.5-5.1) L 06/30/17 03:52 Chloride 113 mEq/L (98-107) H 06/30/17 03:52 Carbon Dioxide 23.2 mEq/L (21.0-31.0) 06/30/17 03:52 Anion Gap 11.2 (7.0-16.0) 06/30/17 03:52 BUN 20 mg/dL (7-25) 06/30/17 03:52 Creatinine 1.7 mg/dL (0.6-1.2) H 06/30/17 03:52 Est GFR ( Amer) TNP 06/30/17 03:52 Est GFR (Non-Af Amer) TNP 06/30/17 03:52 BUN/Creatinine Ratio 11.8 06/30/17 03:52 Glucose 201 mg/dL (70-105) H 06/30/17 03:52 POC Glucose 129 MG/DL (70 - 105) H 06/30/17 20:48 Hemoglobin A1c % 11.7 % (4.0-6.0) H 06/21/17 18:20 Calcium 8.9 mg/dL (8.6-10.3) 06/30/17 03:52 Magnesium 2.0 mg/dL (1.9-2.7) 06/30/17 03:52 Iron 19 ug/dL (27-139) L 06/22/17 05:20 TIBC 176 ug/dL (250-450) L 06/22/17 05:20 Iron Saturation 11 % (15-55) L 06/22/17 05:20 Unsaturated IBC 157 ug/dL (118-369) 06/22/17 05:20 Ferritin 164 ng/mL (15-150) H 06/22/17 05:20 Total Bilirubin 0.2 mg/dL (0.3-1.0) L 06/28/17 04:10 AST 24 U/L (13-39) 06/28/17 04:10 ALT 19 U/L (7-52) 06/28/17 04:10 Alkaline Phosphatase 66 U/L (34-104) 06/28/17 04:10 Ammonia 36 umol/L (16-53) 06/30/17 03:52 Creatine Kinase 39 U/L (30-223) 06/21/17 18:20 Troponin I 0.01 ng/mL (0.01-0.05) 06/21/17 18:20 B-Natriuretic Peptide 150.0 pg/mL (5.0-100.0) H 06/30/17 03:52 Total Protein 5.6 gm/dL (6.0-8.3) L 06/28/17 04:10 Albumin 2.3 gm/dL (3.7-5.3) L 06/28/17 04:10 Globulin 3.3 gm/dL 06/28/17 04:10 Albumin/Globulin Ratio 0.7 (1.0-1.8) L 06/28/17 04:10 Triglycerides 104 mg/dL (<150) 06/21/17 18:20 Cholesterol 129 mg/dL (<200) 06/21/17 18:20 LDL Cholesterol Direct 65 mg/dL (75-193) L 06/21/17 18:20 HDL Cholesterol 43 mg/dL (23-92) 06/21/17 18:20 Vitamin B12 621 pg/mL (232-1245) 06/22/17 05:20 Folic Acid 14.7 ng/mL (>3.0) 06/22/17 05:20 Helicobacter pylori Ab POSITIVE (NEGATIVE) 06/23/17 10:50 Blood Type O POSITIVE 06/26/17 10:15 Antibody Screen NEGATIVE 06/26/17 10:15 Crossmatch See Detail 06/26/17 10:15 - Physical Exam Vitals and I&O: Vital Signs Temp 98.2 F 06/30/17 20:00 Pulse 105 06/30/17 20:13 Resp 19 06/30/17 20:00 BP 177/80 06/30/17 20:13 Pulse Ox 98 06/30/17 20:00 Intake & Output 06/30/17 06/30/17 07/01/17 06:59 18:59 06:59 Intake Total 2004.267 584.277 128.792 Output Total 300 450 Balance 1704.267 134.277 128.792 Weight (lbs) 56.727 kg 56.699 kg Intake: Intake, IV Amount 1752.267 584.277 128.792 D5-0.9%Ns 1,000 ml @ 80 1650.667 mls/hr IV .[id number] [facility] Rx #:[id number] Heparin 25,000 Units In 101.600 182.277 78.792 D5W 25,000 units In 250 ml @ Titrate IV TITR PRN Rx#:[id number] Iron Dextran Complex 100 102 mg In Sodium Chloride 0.9 % 100 ml @ 100 mls/hr IV Q24H ED Rx#:[id number] Piperacillin Sodium/ 100 50 Tazobact 3.375 gm In Sodium Chloride 0.9% 50 ml @ 100 mls/hr IV Q6HR ED Rx#:[id number] metroNIDAZOLE 500mg/NS 200 100mL 500 mg In 100 ml @ 100 mls/hr IV Q8HR [facility] Rx #:[id number] Other 252 Output: Urine 300 350 Stool 0 0 Emesis 100 Active Medications: Current Medications Acetaminophen (Tylenol) 650 mg PO Q4H PRN PRN Reason: Pain Or Fever above 101 Stop: 08/20/17 19:40 Al Hydrox/Mg Hydrox/Simethicone (Maalox) 30 ml PO Q6H PRN PRN Reason: Dyspepsia Stop: 08/20/17 19:40 Albuterol Sulfate (Albuterol 2.5mg/3ml Neb Ud) 2.5 mg HHN Q2HRT PRN PRN Reason: Shortness of Breath or Wheeze Stop: 08/20/17 19:40 Amlodipine Besylate (Norvasc) 10 mg PO DAILY [facility] Stop: 08/21/17 08:59 Last Admin: 06/30/17 08:51 Dose: 10 mg Clonidine HCl (Mczlkbre-Igu-7) 1 patch TD We [facility] Stop: 08/28/17 13:14 Last Admin: 06/29/17 13:30 Dose: 1 patch Enalaprilat (Vasotec) 1.25 mg IVP Q6HR PRN PRN Reason: Sbp Above 170MMHG Stop: 08/22/17 11:59 Last Admin: 06/30/17 09:17 Dose: 1.25 mg Guaifenesin (Robitussin) 200 mg PO Q4HR PRN PRN Reason: Cough or Congestion Stop: 08/20/17 19:40 Haloperidol Decanoate (Haldol Dec) 25 mg IM QMONTH [facility] Stop: 08/23/17 09:59 Last Admin: 06/24/17 09:10 Dose: 25 mg Hydralazine HCl (Apresoline 20 Mg/Ml) 10 mg IV Q6HR PRN PRN Reason: SBP ABOVE 160 Stop: 08/25/17 12:20 Last Admin: 06/30/17 20:13 Dose: 10 mg Iron Dextran 100 mg/ Sodium (Chloride) 102 mls @ 100 mls/hr IV Q24H [facility] Stop: 07/01/17 18:02 Last Infusion: 06/30/17 18:23 Dose: Infused Heparin Sodium/Dextrose (Heparin Drip) 25,000 units in 250 mls @ 0 mls/hr IV TITR PRN; Protocol; Titrate PRN Reason: PROTOCOL Stop: 08/28/17 17:20 Last Titration: 06/30/17 19:00 Dose: 0 mls/hr Piperacillin Sod/Tazobactam (Sod 3.375 gm/ Sodium Chloride) 50 mls @ 100 mls/ hr IV Q6HR ED Stop: 07/10/17 05:59 Last Infusion: 06/30/17 19:00 Dose: Infused Metronidazole (Flagyl) 500 mg in 100 mls @ 100 mls/hr IV Q8HR ED Stop: 08/29/17 06:14 Last Admin: 06/30/17 20:39 Dose: 100 mls/hr Potassium Chloride/Dextrose/Sod Cl (D5-0.45ns W/40 Meq Kcl) 1,000 mls @ 75 mls/ hr IV .[id number] ED Stop: 08/29/17 12:44 Last Admin: 06/30/17 13:33 Dose: 75 mls/hr Insulin Aspart (Novolog) 0 units SUBQ ACHS ED PRN Reason: Protocol Stop: 08/21/17 16:29 Last Admin: 06/30/17 16:43 Dose: Not Given Ipratropium [place] (Atrovent Neb 0.5mg/2.5ml) 0.5 mg IH Q2HRT PRN PRN Reason: Shortness of Breath or Wheeze Stop: 08/20/17 19:40 Lactobacillus Rhamnosus (Culturelle 15b) 1 each PO DAILY ED Stop: 08/30/17 08:59 Mirtazapine (Remeron) 15 mg PO HS ED PRN Reason: Protocol Stop: 08/20/17 20:59 Last Admin: 06/30/17 20:40 Dose: 15 mg Miscellaneous (Heparin Drip Per Pharmacy) 1 ea PRN ED PRN Reason: Protocol Stop: 08/27/17 20:14 Miscellaneous (Probiotic Screen) 1 ea PRN PRN PRN Reason: PROTOCOL Stop: 08/29/17 11:59 Morphine Sulfate (Morphine) 2 mg IVP Q3H PRN PRN Reason: Pain (Severe) Stop: 08/20/17 19:40 Last Admin: 06/30/17 19:49 Dose: 2 mg Nitroglycerin (Nitrostat) 0.4 mg SL Q5MIN PRN PRN Reason: Chest Pain Stop: 08/20/17 19:40 Ondansetron HCl (Zofran) 4 mg IV Q8H PRN PRN Reason: Nausea / Vomiting Stop: 08/20/17 19:40 General: Other (extubated) HEENT: Atraumatic Neck: Supple Cardiovascular: Regular rate Abdomen: Bowel sounds, Soft, Other (dressing in midline no bleeding) Extremities: Other (right arm hematoma) - Procedures Procedures: Procedures Procedure Code Date PARTIAL REMOVAL OF COLON 60403 06/21/17 RESECTION OF RIGHT LARGE INTESTINE, OPEN APPROACH [id number] 06/21/17 Assessment/Plan - Problem List Patient Problems: All Active Problems Altered mental status (Acute) R41.82 Failure to thrive (Acute) [id number] Schizophrenia (Acute) F20.9 Anxiety (Chronic) F41.9 Chronic Kidney Disease (Chronic) Hypertension (Chronic) - Assessment Assessment: * DVT * ANEMIA * CKD * 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 monitor hgb and right arm hematoma follow path Nutritional Asmnt/Malnutr-PDOC - Dietary Evaluation Malnutrition Findings (Please click <Entered> for more info): Nutritional Asmnt/Malnutrition Start: 06/22/17 18: 04 Text: Status: Complete Freq: Document 06/22/17 18:04 LCHENG (Rec: 06/22/17 18:15 LCHENG [email or web address]) Nutritional Asmnt/Malnutrition Patient General Information Nutritional Screening High Risk Consult Diagnosis left lower extremity DVT, severe anemia, CHF, HTN Pertinent Medical Hx/Surgical Hx DM, anemia, renal stones, schizophrenia Subjective Information Pt seen lying in bed, confused at time of visit. Spoke with LULÚ Seay, RN reported pt ate well, consumed 60% of breakfast this morning. Per notes, pt has EGD and colonoscopy scheduled tommorrow. Current Diet Order/ Nutrition Support pureed Pertinent Medications D5-0.9ns, novolog, remeron, kcl Pertinent Labs 06/21 Na 137, K 3.5, Cl 100, BUN 24, Cr 1.3, Glucose 186, AST 10, ALT 6, Alb 2.6 06/22 POC 383 Nutritional Hx/Data Height 1.52 m Height (Calculated Centimeters) 152.4 Current Weight (lbs) 39.009 kg Weight (Calculated Kilograms) 39.0 Weight (Calculated Grams) 50615.9 [place] Body Weight 100 % [place] Body Weight 86 Body Mass Index (BMI) 16.7 Weight Status Underweight GI Symptoms GI Symptoms None Last BM none Difficult in: None Skin Integrity/Comment: intact Current %PO Fair (50-74%) Estimated Nutritional Goals Calories/Kcals/Kg 25-30 based on IBW 45kg Kcals Calculated 9420-9652 Protein g/k-1.2 Protein Calculated 45-54 Fluid: ml 1125-1350ml (1ml/kcal) Nutritional Problem 1. Problem Problem altered nutrition related lab values Etiology hx of DM Signs/Symptoms: Glucose 186, POC 383 Malnutrition Alert Protein-Calorie Malnutrition N/A Is there a minimum of two criteria No selected? Query Text:Check all the applicable criteria. A minimum of two criteria are recommended for diagnosis of either severe or non-severe malnutrition. Intervention/Recommendation Comments 1. Recommend CCHO, low sodium diet for optimal glycemic and BP control. RN notified. 2. Monitor PO intake, wt, labs and skin integrity 3. F/U as high risk in 2-3 days, 06/24-06/25 Expected Outcomes/Goals Expected Outcomes/Goals 1. PO intake to meet at least 75% of nutritional needs. 2. Wt stability, skin to remain intact, labs to improve
[2017-07-01] MEDS: Morphine Sulfate 2 mg/mL 1mL Syr IVP PRN ×7 (01:58→21:55)
[2017-07-01] MEDS ORDERED: Heparin Sodium 1,000 Units/mL Vial IVP ONE (02:01)
[2017-07-01] MEDS: D5-0.45NS w/40 mEq KCL 1,000 ML IV SCH ×2 (03:52→17:04)
[2017-07-01] MEDS: metroNIDAZOLE 500mg/NS 100mL 500 MG/100 ML BAG IV SCH ×3 (04:59→20:07)
[2017-07-01] MEDS: INSULIN ASPART, RECOMBINANT 100 UNITS/ML SUBQ SCH ×4 (06:47→21:15)
[2017-07-01] MEDS: Lactobacillus Rhamnosus GG 15 Billion CFU CAP.SPRINK PO SCH (08:25)
[2017-07-01 08:56] LABS: % BASOPHILS 0.2 % (0.0-2.0); % EOSINOPHILS 0.4 % (0.0-5.0); % LYMPHOCYTES 11.5 % (20.0-50.0); % MONOCYTES 4.3 % (2.0-10.0); % NEUTROPHILS 83.6 % (40.0-80.0); EOSINOPHILE ABSOLUTE 0.1 Th/cmm (0.1-0.4); HEMATOCRIT 24.1 % (41.0-60); LYMPHOCYTE ABSOLUTE 1.5 Th/cmm (1.5-3.0); MEAN CELL VOLUME 83.8 fl (81-100); MEAN CORPUSCULAR HGB CONC 32.2 pg (28.0-36.0); MEAN PLATELET VOLUME 7.4 fl; MONOCYTE ABSOLUTE 0.5 Th/cmm (0.3-1.0); NEUTROPHILE ABSOLUTE 10.6 Th/cmm (1.8-8.0); PLATELET COUNT 501 Th/cmm (150-400); RED BLOOD COUNT 2.88 Mil/cmm (3.80-5.20); RED CELL DISTRIBUTION WIDTH 15.3 % (11.5-20.0)
[2017-07-01 09:00] LABS: HEMOGLOBIN 7.8 gm/dL (12-16); WHITE BLOOD COUNT 12.7 Th/cmm (4.8-10.8)
[2017-07-01 09:32] LABS: ANION GAP 11.9 (7.0-16.0); BUN - UREA NITROGEN 18 mg/dL (7-25); CALCIUM SERUM 8.6 mg/dL (8.6-10.3); CARBON DIOXIDE 25.3 mEq/L (21.0-31.0); CHLORIDE 113 mEq/L (98-107); CREATININE - SERUM 1.9 mg/dL (0.6-1.2); GLUCOSE 178 mg/dL (70-105); POTASSIUM SERUM 3.2 mEq/L (3.5-5.1); SODIUM SERUM 147 mEq/L (136-145)
--- NOTE | 2017-07-01 09:49 | General Progress Note ---
Subjective - Review of Systems Service Date: 07/01/17 Events since last encounter: incision redressed, clean still significant NGT drainage Objective - Results Result Diagrams: 07/01/17 08:40 06/30/17 03:52 Recent Labs: Laboratory Last Values WBC 12.7 Th/cmm (4.8-10.8) H D 07/01/17 08:40 RBC 2.88 Mil/cmm (3.80-5.20) L 07/01/17 08:40 Hgb 7.8 gm/dL (12-16) L* 07/01/17 08:40 Hct 24.1 % (41.0-60) L 07/01/17 08:40 MCV 83.8 fl (81-100) 07/01/17 08:40 MCH 27.0 pg (27.0-31.0) 07/01/17 08:40 MCHC Differential 32.2 pg (28.0-36.0) 07/01/17 08:40 RDW 15.3 % (11.5-20.0) 07/01/17 08:40 Plt Count 501 Th/cmm (150-400) H 07/01/17 08:40 MPV 7.4 fl 07/01/17 08:40 Neutrophils % 83.6 % (40.0-80.0) H 07/01/17 08:40 Band Neutrophils % 7 % (0-10) 06/30/17 03:52 Lymphocytes % 11.5 % (20.0-50.0) L 07/01/17 08:40 Monocytes % 4.3 % (2.0-10.0) 07/01/17 08:40 Eosinophils % 0.4 % (0.0-5.0) 07/01/17 08:40 Basophils % 0.2 % (0.0-2.0) 07/01/17 08:40 Neutrophils (Manual) 86 % (40-80) H 06/30/17 03:52 Lymphocytes 5 % (20-50) L 06/30/17 03:52 Monocytes 2 % (2-10) 06/30/17 03:52 Platelet Estimate ADEQUATE (NORMAL) 06/30/17 03:52 PT 11.8 SECONDS (9.5-11.5) H 06/28/17 04:10 INR 1.12 (0.5-1.4) 06/28/17 04:10 PTT (Actin FS) 40.0 SECONDS (26.0-38.0) H 07/01/17 08:40 D-Dimer 3600 ng/mL (100-400) H 06/21/17 18:20 Specimen Source Arterial 06/28/17 10:55 Sample Site Right Radial 06/28/17 10:55 pH 7.44 (7.35-7.45) 06/28/17 10:55 pCO2 36.0 mmHg (35.0-45.0) 06/28/17 10:55 pO2 100.0 mmHg (80.0-100.0) 06/28/17 10:55 HCO3 25.4 mEq/L (20.0-26.0) 06/28/17 10:55 Base Excess 0.6 mEq/L (-3.0-3.0) 06/28/17 10:55 O2 Saturation 98.0 % (92.0-100.0) 06/28/17 10:55 Rashid Test Positive 06/28/17 10:55 Vent Rate N/A 06/28/17 10:55 Inspired O2 28 06/28/17 10:55 Tidal Volume N/A 06/28/17 10:55 PEEP N/A 06/28/17 10:55 Pressure (ins/psv/peep) N/A 06/28/17 10:55 Critical Value DM 06/28/17 10:55 Sodium 144 mEq/L (136-145) 06/30/17 03:52 Potassium 3.4 mEq/L (3.5-5.1) L 06/30/17 03:52 Chloride 113 mEq/L (98-107) H 06/30/17 03:52 Carbon Dioxide 23.2 mEq/L (21.0-31.0) 06/30/17 03:52 Anion Gap 11.2 (7.0-16.0) 06/30/17 03:52 BUN 20 mg/dL (7-25) 06/30/17 03:52 Creatinine 1.7 mg/dL (0.6-1.2) H 06/30/17 03:52 Est GFR ( Amer) TNP 06/30/17 03:52 Est GFR (Non-Af Amer) TNP 06/30/17 03:52 BUN/Creatinine Ratio 11.8 06/30/17 03:52 Glucose 201 mg/dL (70-105) H 06/30/17 03:52 POC Glucose 150 MG/DL (70 - 105) H 07/01/17 05:13 Hemoglobin A1c % 11.7 % (4.0-6.0) H 06/21/17 18:20 Calcium 8.9 mg/dL (8.6-10.3) 06/30/17 03:52 Magnesium 2.0 mg/dL (1.9-2.7) 06/30/17 03:52 Iron 19 ug/dL (27-139) L 06/22/17 05:20 TIBC 176 ug/dL (250-450) L 06/22/17 05:20 Iron Saturation 11 % (15-55) L 06/22/17 05:20 Unsaturated IBC 157 ug/dL (118-369) 06/22/17 05:20 Ferritin 164 ng/mL (15-150) H 06/22/17 05:20 Total Bilirubin 0.2 mg/dL (0.3-1.0) L 06/28/17 04:10 AST 24 U/L (13-39) 06/28/17 04:10 ALT 19 U/L (7-52) 06/28/17 04:10 Alkaline Phosphatase 66 U/L (34-104) 06/28/17 04:10 Ammonia 36 umol/L (16-53) 06/30/17 03:52 Creatine Kinase 39 U/L (30-223) 06/21/17 18:20 Troponin I 0.01 ng/mL (0.01-0.05) 06/21/17 18:20 B-Natriuretic Peptide 187.0 pg/mL (5.0-100.0) H 07/01/17 08:40 Total Protein 5.6 gm/dL (6.0-8.3) L 06/28/17 04:10 Albumin 2.3 gm/dL (3.7-5.3) L 06/28/17 04:10 Globulin 3.3 gm/dL 06/28/17 04:10 Albumin/Globulin Ratio 0.7 (1.0-1.8) L 06/28/17 04:10 Triglycerides 104 mg/dL (<150) 06/21/17 18:20 Cholesterol 129 mg/dL (<200) 06/21/17 18:20 LDL Cholesterol Direct 65 mg/dL (75-193) L 06/21/17 18:20 HDL Cholesterol 43 mg/dL (23-92) 06/21/17 18:20 Vitamin B12 621 pg/mL (232-1245) 06/22/17 05:20 Folic Acid 14.7 ng/mL (>3.0) 06/22/17 05:20 Helicobacter pylori Ab POSITIVE (NEGATIVE) 06/23/17 10:50 Blood Type O POSITIVE 06/26/17 10:15 Antibody Screen NEGATIVE 06/26/17 10:15 Crossmatch See Detail 06/26/17 10:15 - Physical Exam Vitals and I&O: Vital Signs Temp 98.2 F 07/01/17 04:00 Pulse 90 07/01/17 08:25 Resp 20 07/01/17 07:22 BP 177/96 07/01/17 08:25 Pulse Ox 97 07/01/17 07:22 Intake & Output 06/30/17 07/01/17 07/01/17 18:59 06:59 18:59 Intake Total 214.617 8730.992 Output Total 450 350 Balance 349.978 8900.992 Weight (lbs) 56.699 kg 56.699 kg Intake: Intake, IV Amount 813.361 9356.992 D5-0.45NS w/40 mEq KCL 1, 1160 000 ml @ 75 mls/hr IV . [id number] [facility] Rx#:[id number] Heparin 25,000 Units In 182.277 169.992 D5W 25,000 units In 250 ml @ Titrate IV TITR PRN Rx#:[id number] Iron Dextran Complex 100 102 mg In Sodium Chloride 0.9 % 100 ml @ 100 mls/hr IV Q24H [facility] Rx#:[id number] Piperacillin Sodium/ 100 150 Tazobact 3.375 gm In Sodium Chloride 0.9% 50 ml @ 100 mls/hr IV Q6HR ED Rx#:[id number] metroNIDAZOLE 500mg/NS 200 200 100mL 500 mg In 100 ml @ 100 mls/hr IV Q8HR [facility] Rx #:[id number] Oral 0 Output: Urine 350 350 Stool 0 Emesis 100 Active Medications: Current Medications Acetaminophen (Tylenol) 650 mg PO Q4H PRN PRN Reason: Pain Or Fever above 101 Stop: 08/20/17 19:40 Al Hydrox/Mg Hydrox/Simethicone (Maalox) 30 ml PO Q6H PRN PRN Reason: Dyspepsia Stop: 08/20/17 19:40 Albuterol Sulfate (Albuterol 2.5mg/3ml Neb Ud) 2.5 mg HHN Q2HRT PRN PRN Reason: Shortness of Breath or Wheeze Stop: 08/20/17 19:40 Amlodipine Besylate (Norvasc) 10 mg PO DAILY [facility] Stop: 08/21/17 08:59 Last Admin: 07/01/17 08:25 Dose: Not Given Clonidine HCl (Serphzuj-Sye-2) 1 patch TD We [facility] Stop: 08/28/17 13:14 Last Admin: 06/29/17 13:30 Dose: 1 patch Enalaprilat (Vasotec) 1.25 mg IVP Q6HR PRN PRN Reason: Sbp Above 170MMHG Stop: 08/22/17 11:59 Last Admin: 07/01/17 08:22 Dose: 1.25 mg Guaifenesin (Robitussin) 200 mg PO Q4HR PRN PRN Reason: Cough or Congestion Stop: 08/20/17 19:40 Haloperidol Decanoate (Haldol Dec) 25 mg IM QMONTH [facility] Stop: 08/23/17 09:59 Last Admin: 06/24/17 09:10 Dose: 25 mg Hydralazine HCl (Apresoline 20 Mg/Ml) 10 mg IV Q6HR PRN PRN Reason: SBP ABOVE 160 Stop: 08/25/17 12:20 Last Admin: 07/01/17 05:38 Dose: 10 mg Iron Dextran 100 mg/ Sodium (Chloride) 102 mls @ 100 mls/hr IV Q24H [facility] Stop: 07/01/17 18:02 Last Infusion: 06/30/17 18:23 Dose: Infused Heparin Sodium/Dextrose (Heparin Drip) 25,000 units in 250 mls @ 0 mls/hr IV TITR PRN; Protocol; Titrate PRN Reason: PROTOCOL Stop: 08/28/17 17:20 Last Titration: 07/01/17 02:20 Dose: 15.5 mls/hr Piperacillin Sod/Tazobactam (Sod 3.375 gm/ Sodium Chloride) 50 mls @ 100 mls/ hr IV Q6HR [facility] Stop: 07/10/17 05:59 Last Infusion: 07/01/17 06:00 Dose: Infused Metronidazole (Flagyl) 500 mg in 100 mls @ 100 mls/hr IV Q8HR ED Stop: 08/29/17 06:14 Last Infusion: 07/01/17 06:00 Dose: Infused Potassium Chloride/Dextrose/Sod Cl (D5-0.45ns W/40 Meq Kcl) 1,000 mls @ 75 mls/ hr IV .[id number] [facility] Stop: 08/29/17 12:44 Last Infusion: 07/01/17 06:00 Dose: 75 mls/hr Insulin Aspart (Novolog) 0 units SUBQ ACHS ED PRN Reason: Protocol Stop: 08/21/17 16:29 Last Admin: 07/01/17 06:47 Dose: Not Given Ipratropium [place] (Atrovent Neb 0.5mg/2.5ml) 0.5 mg IH Q2HRT PRN PRN Reason: Shortness of Breath or Wheeze Stop: 08/20/17 19:40 Lactobacillus Rhamnosus (Culturelle 15b) 1 each PO DAILY [facility] Stop: 08/30/17 08:59 Last Admin: 07/01/17 08:25 Dose: Not Given Mirtazapine (Remeron) 15 mg PO HS ED PRN Reason: Protocol Stop: 08/20/17 20:59 Last Admin: 06/30/17 20:40 Dose: 15 mg Miscellaneous (Heparin Drip Per Pharmacy) 1 ea PRN ED PRN Reason: Protocol Stop: 08/27/17 20:14 Miscellaneous (Probiotic Screen) 1 ea PRN PRN PRN Reason: PROTOCOL Stop: 08/29/17 11:59 Morphine Sulfate (Morphine) 2 mg IVP Q3H PRN PRN Reason: Pain (Severe) Stop: 08/20/17 19:40 Last Admin: 07/01/17 08:20 Dose: 2 mg Nitroglycerin (Nitrostat) 0.4 mg SL Q5MIN PRN PRN Reason: Chest Pain Stop: 08/20/17 19:40 Ondansetron HCl (Zofran) 4 mg IV Q8H PRN PRN Reason: Nausea / Vomiting Stop: 08/20/17 19:40 General: Other (extubated) HEENT: Atraumatic Neck: Supple Cardiovascular: Regular rate Abdomen: Bowel sounds, Soft, Other (dressing in midline no bleeding) Extremities: Other (right arm hematoma) - Procedures Procedures: Procedures Procedure Code Date PARTIAL REMOVAL OF COLON 74867 06/21/17 RESECTION OF RIGHT LARGE INTESTINE, OPEN APPROACH [id number] 06/21/17 Assessment/Plan - Problem List Patient Problems: All Active Problems Altered mental status (Acute) R41.82 Failure to thrive (Acute) [id number] Schizophrenia (Acute) F20.9 Anxiety (Chronic) F41.9 Chronic Kidney Disease (Chronic) Hypertension (Chronic) Nutritional Asmnt/Malnutr-PDOC - Dietary Evaluation Malnutrition Findings (Please click <Entered> for more info): Nutritional Asmnt/Malnutrition Start: 06/22/17 18: 04 Text: Status: Complete Freq: Document 06/22/17 18:04 DIANELYS (Rec: 06/22/17 18:15 [facility] Nutritional Asmnt/Malnutrition Patient General Information Nutritional Screening High Risk Consult Diagnosis left lower extremity DVT, severe anemia, CHF, HTN Pertinent Medical Hx/Surgical Hx DM, anemia, renal stones, schizophrenia Subjective Information Pt seen lying in bed, confused at time of visit. Spoke with LULÚ Seay, RN reported pt ate well, consumed 60% of breakfast this morning. Per notes, pt has EGD and colonoscopy scheduled tommorrow. Current Diet Order/ Nutrition Support pureed Pertinent Medications D5-0.9ns, novolog, remeron, kcl Pertinent Labs 06/21 Na 137, K 3.5, Cl 100, BUN 24, Cr 1.3, Glucose 186, AST 10, ALT 6, Alb 2.6 06/22 POC 383 Nutritional Hx/Data Height 1.52 m Height (Calculated Centimeters) 152.4 Current Weight (lbs) 39.009 kg Weight (Calculated Kilograms) 39.0 Weight (Calculated Grams) 58436.9 Brooks Body Weight 100 % Brooks Body Weight 86 Body Mass Index (BMI) 16.7 Weight Status Underweight GI Symptoms GI Symptoms None Last BM none Difficult in: None Skin Integrity/Comment: intact Current %PO Fair (50-74%) Estimated Nutritional Goals Calories/Kcals/Kg 25-30 based on IBW 45kg Kcals Calculated 2953-9989 Protein g/k-1.2 Protein Calculated 45-54 Fluid: ml 1125-1350ml (1ml/kcal) Nutritional Problem 1. Problem Problem altered nutrition related lab values Etiology hx of DM Signs/Symptoms: Glucose 186, POC 383 Malnutrition Alert Protein-Calorie Malnutrition N/A Is there a minimum of two criteria No selected? Query Text:Check all the applicable criteria. A minimum of two criteria are recommended for diagnosis of either severe or non-severe malnutrition. Intervention/Recommendation Comments 1. Recommend CCHO, low sodium diet for optimal glycemic and BP control. RN notified. 2. Monitor PO intake, wt, labs and skin integrity 3. F/U as high risk in 2-3 days, 06/24-06/25 Expected Outcomes/Goals Expected Outcomes/Goals 1. PO intake to meet at least 75% of nutritional needs. 2. Wt stability, skin to remain intact, labs to improve
[2017-07-01] MEDS ORDERED: Potassium Chloride 40 MEQ, Lidocaine 1% 20mL Vial 25 MG in Sodium Chloride 0.9% 250 ML IV ONE (13:16)
--- NOTE | 2017-07-01 14:52 | General Progress Note ---
Subjective - Review of Systems Service Date: 07/01/17 Objective - Results Result Diagrams: 07/01/17 08:40 07/01/17 08:40 Recent Labs: Laboratory Last Values WBC 12.7 Th/cmm (4.8-10.8) H D 07/01/17 08:40 RBC 2.88 Mil/cmm (3.80-5.20) L 07/01/17 08:40 Hgb 7.8 gm/dL (12-16) L* 07/01/17 08:40 Hct 24.1 % (41.0-60) L 07/01/17 08:40 MCV 83.8 fl (81-100) 07/01/17 08:40 MCH 27.0 pg (27.0-31.0) 07/01/17 08:40 MCHC Differential 32.2 pg (28.0-36.0) 07/01/17 08:40 RDW 15.3 % (11.5-20.0) 07/01/17 08:40 Plt Count 501 Th/cmm (150-400) H 07/01/17 08:40 MPV 7.4 fl 07/01/17 08:40 Neutrophils % 83.6 % (40.0-80.0) H 07/01/17 08:40 Band Neutrophils % 7 % (0-10) 06/30/17 03:52 Lymphocytes % 11.5 % (20.0-50.0) L 07/01/17 08:40 Monocytes % 4.3 % (2.0-10.0) 07/01/17 08:40 Eosinophils % 0.4 % (0.0-5.0) 07/01/17 08:40 Basophils % 0.2 % (0.0-2.0) 07/01/17 08:40 Neutrophils (Manual) 86 % (40-80) H 06/30/17 03:52 Lymphocytes 5 % (20-50) L 06/30/17 03:52 Monocytes 2 % (2-10) 06/30/17 03:52 Platelet Estimate ADEQUATE (NORMAL) 06/30/17 03:52 PT 11.8 SECONDS (9.5-11.5) H 06/28/17 04:10 INR 1.12 (0.5-1.4) 06/28/17 04:10 PTT (Actin FS) 39.0 SECONDS (26.0-38.0) H 07/01/17 12:00 D-Dimer 3600 ng/mL (100-400) H 06/21/17 18:20 Specimen Source Arterial 06/28/17 10:55 Sample Site Right Radial 06/28/17 10:55 pH 7.44 (7.35-7.45) 06/28/17 10:55 pCO2 36.0 mmHg (35.0-45.0) 06/28/17 10:55 pO2 100.0 mmHg (80.0-100.0) 06/28/17 10:55 HCO3 25.4 mEq/L (20.0-26.0) 06/28/17 10:55 Base Excess 0.6 mEq/L (-3.0-3.0) 06/28/17 10:55 O2 Saturation 98.0 % (92.0-100.0) 06/28/17 10:55 Rashid Test Positive 06/28/17 10:55 Vent Rate N/A 06/28/17 10:55 Inspired O2 28 06/28/17 10:55 Tidal Volume N/A 06/28/17 10:55 PEEP N/A 06/28/17 10:55 Pressure (ins/psv/peep) N/A 06/28/17 10:55 Critical Value DM 06/28/17 10:55 Sodium 147 mEq/L (136-145) H 07/01/17 08:40 Potassium 3.2 mEq/L (3.5-5.1) L 07/01/17 08:40 Chloride 113 mEq/L (98-107) H 07/01/17 08:40 Carbon Dioxide 25.3 mEq/L (21.0-31.0) 07/01/17 08:40 Anion Gap 11.9 (7.0-16.0) 07/01/17 08:40 BUN 18 mg/dL (7-25) 07/01/17 08:40 Creatinine 1.9 mg/dL (0.6-1.2) H 07/01/17 08:40 Est GFR ( Amer) TNP 07/01/17 08:40 Est GFR (Non-Af Amer) TNP 07/01/17 08:40 BUN/Creatinine Ratio 9.5 07/01/17 08:40 Glucose 178 mg/dL (70-105) H 07/01/17 08:40 POC Glucose 168 MG/DL (70 - 105) H 07/01/17 11:44 Hemoglobin A1c % 11.7 % (4.0-6.0) H 06/21/17 18:20 Calcium 8.6 mg/dL (8.6-10.3) 07/01/17 08:40 Magnesium 2.0 mg/dL (1.9-2.7) 06/30/17 03:52 Iron 19 ug/dL (27-139) L 06/22/17 05:20 TIBC 176 ug/dL (250-450) L 06/22/17 05:20 Iron Saturation 11 % (15-55) L 06/22/17 05:20 Unsaturated IBC 157 ug/dL (118-369) 06/22/17 05:20 Ferritin 164 ng/mL (15-150) H 06/22/17 05:20 Total Bilirubin 0.2 mg/dL (0.3-1.0) L 06/28/17 04:10 AST 24 U/L (13-39) 06/28/17 04:10 ALT 19 U/L (7-52) 06/28/17 04:10 Alkaline Phosphatase 66 U/L (34-104) 06/28/17 04:10 Ammonia 36 umol/L (16-53) 06/30/17 03:52 Creatine Kinase 39 U/L (30-223) 06/21/17 18:20 Troponin I 0.01 ng/mL (0.01-0.05) 06/21/17 18:20 B-Natriuretic Peptide 187.0 pg/mL (5.0-100.0) H 07/01/17 08:40 Total Protein 5.6 gm/dL (6.0-8.3) L 06/28/17 04:10 Albumin 2.3 gm/dL (3.7-5.3) L 06/28/17 04:10 Globulin 3.3 gm/dL 06/28/17 04:10 Albumin/Globulin Ratio 0.7 (1.0-1.8) L 06/28/17 04:10 Triglycerides 104 mg/dL (<150) 06/21/17 18:20 Cholesterol 129 mg/dL (<200) 06/21/17 18:20 LDL Cholesterol Direct 65 mg/dL (75-193) L 06/21/17 18:20 HDL Cholesterol 43 mg/dL (23-92) 06/21/17 18:20 Vitamin B12 621 pg/mL (232-1245) 06/22/17 05:20 Folic Acid 14.7 ng/mL (>3.0) 06/22/17 05:20 Helicobacter pylori Ab POSITIVE (NEGATIVE) 06/23/17 10:50 Blood Type O POSITIVE 06/26/17 10:15 Antibody Screen NEGATIVE 06/26/17 10:15 Crossmatch See Detail 06/26/17 10:15 - Physical Exam Vitals and I&O: Vital Signs Temp 97.2 F 07/01/17 13:00 Pulse 87 07/01/17 14:00 Resp 15 07/01/17 13:00 BP 158/85 07/01/17 14:00 Pulse Ox 96 07/01/17 14:00 Intake & Output 06/30/17 07/01/17 07/01/17 18:59 06:59 18:59 Intake Total 001.546 0473.992 150 Output Total 450 350 Balance 894.421 1813.992 150 Weight (lbs) 56.699 kg 56.699 kg Intake: Intake, IV Amount 176.213 4890.992 150 D5-0.45NS w/40 mEq KCL 1, 1160 000 ml @ 75 mls/hr IV . [id number] [facility] Rx#:[id number] Heparin 25,000 Units In 182.277 169.992 D5W 25,000 units In 250 ml @ Titrate IV TITR PRN Rx#:[id number] Iron Dextran Complex 100 102 mg In Sodium Chloride 0.9 % 100 ml @ 100 mls/hr IV Q24H ED Rx#:[id number] Piperacillin Sodium/ 100 150 50 Tazobact 3.375 gm In Sodium Chloride 0.9% 50 ml @ 100 mls/hr IV Q6HR ED Rx#:[id number] metroNIDAZOLE 500mg/NS 200 200 100 100mL 500 mg In 100 ml @ 100 mls/hr IV Q8HR [facility] Rx #:[id number] Oral 0 Output: Urine 350 350 Stool 0 Emesis 100 Active Medications: Current Medications Acetaminophen (Tylenol) 650 mg PO Q4H PRN PRN Reason: Pain Or Fever above 101 Stop: 08/20/17 19:40 Al Hydrox/Mg Hydrox/Simethicone (Maalox) 30 ml PO Q6H PRN PRN Reason: Dyspepsia Stop: 08/20/17 19:40 Albuterol Sulfate (Albuterol 2.5mg/3ml Neb Ud) 2.5 mg HHN Q2HRT PRN PRN Reason: Shortness of Breath or Wheeze Stop: 08/20/17 19:40 Amlodipine Besylate (Norvasc) 10 mg PO DAILY [facility] Stop: 08/21/17 08:59 Last Admin: 07/01/17 08:25 Dose: Not Given Clonidine HCl (Kiahupxf-Rrb-3) 1 patch TD We [facility] Stop: 08/28/17 13:14 Last Admin: 06/29/17 13:30 Dose: 1 patch Enalaprilat (Vasotec) 1.25 mg IVP Q6HR PRN PRN Reason: Sbp Above 170MMHG Stop: 08/22/17 11:59 Last Admin: 07/01/17 08:22 Dose: 1.25 mg Guaifenesin (Robitussin) 200 mg PO Q4HR PRN PRN Reason: Cough or Congestion Stop: 08/20/17 19:40 Haloperidol Decanoate (Haldol Dec) 25 mg IM QMONTH [facility] Stop: 08/23/17 09:59 Last Admin: 06/24/17 09:10 Dose: 25 mg Hydralazine HCl (Apresoline 20 Mg/Ml) 10 mg IV Q6HR PRN PRN Reason: SBP ABOVE 160 Stop: 08/25/17 12:20 Last Admin: 07/01/17 10:45 Dose: 10 mg Iron Dextran 100 mg/ Sodium (Chloride) 102 mls @ 100 mls/hr IV Q24H [facility] Stop: 07/01/17 18:02 Last Infusion: 06/30/17 18:23 Dose: Infused Piperacillin Sod/Tazobactam (Sod 3.375 gm/ Sodium Chloride) 50 mls @ 100 mls/ hr IV Q6HR [facility] Stop: 07/10/17 05:59 Last Infusion: 07/01/17 12:00 Dose: Infused Metronidazole (Flagyl) 500 mg in 100 mls @ 100 mls/hr IV Q8HR [facility] Stop: 08/29/17 06:14 Last Infusion: 07/01/17 14:05 Dose: Infused Potassium Chloride/Dextrose/Sod Cl (D5-0.45ns W/40 Meq Kcl) 1,000 mls @ 75 mls/ hr IV .[id number] [facility] Stop: 08/29/17 12:44 Last Infusion: 07/01/17 06:00 Dose: 75 mls/hr Potassium Chloride 40 meq/Lidocaine HCl 25 mg/ Sodium Chloride 272.5 mls @ 68 mls/hr IV X1 ONE Stop: 07/01/17 17:16 Last Admin: 07/01/17 14:01 Dose: 68 mls/hr Insulin Aspart (Novolog) 0 units SUBQ ACHS ED PRN Reason: Protocol Stop: 08/21/17 16:29 Last Admin: 07/01/17 11:45 Dose: Not Given Ipratropium [place] (Atrovent Neb 0.5mg/2.5ml) 0.5 mg IH Q2HRT PRN PRN Reason: Shortness of Breath or Wheeze Stop: 08/20/17 19:40 Lactobacillus Rhamnosus (Culturelle 15b) 1 each PO DAILY [facility] Stop: 08/30/17 08:59 Last Admin: 07/01/17 08:25 Dose: Not Given Mirtazapine (Remeron) 15 mg PO HS [facility] PRN Reason: Protocol Stop: 08/20/17 20:59 Last Admin: 06/30/17 20:40 Dose: 15 mg Miscellaneous (Probiotic Screen) 1 ea MC PRN PRN PRN Reason: PROTOCOL Stop: 08/29/17 11:59 Morphine Sulfate (Morphine) 2 mg IVP Q3H PRN PRN Reason: Pain (Severe) Stop: 08/20/17 19:40 Last Admin: 07/01/17 11:26 Dose: 2 mg Nitroglycerin (Nitrostat) 0.4 mg SL Q5MIN PRN PRN Reason: Chest Pain Stop: 08/20/17 19:40 Ondansetron HCl (Zofran) 4 mg IV Q8H PRN PRN Reason: Nausea / Vomiting Stop: 08/20/17 19:40 General: Other (extubated) HEENT: Atraumatic Neck: Supple Cardiovascular: Regular rate Abdomen: Bowel sounds, Soft, Other (dressing in midline no bleeding) Extremities: Other (right arm hematoma) - Procedures Procedures: Procedures Procedure Code Date PARTIAL REMOVAL OF COLON 55318 06/21/17 RESECTION OF RIGHT LARGE INTESTINE, OPEN APPROACH [id number] 06/21/17 Assessment/Plan - Problem List Patient Problems: All Active Problems Altered mental status (Acute) R41.82 Failure to thrive (Acute) [id number] Schizophrenia (Acute) F20.9 Anxiety (Chronic) F41.9 Chronic Kidney Disease (Chronic) Hypertension (Chronic) - Assessment Assessment: * DVT * ANEMIA * CKD * 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 monitor hgb and right arm hematoma follow path Nutritional Asmnt/Malnutr-PDOC - Dietary Evaluation Malnutrition Findings (Please click <Entered> for more info): Nutritional Asmnt/Malnutrition Start: 06/22/17 18: 04 Text: Status: Complete Freq: Document 06/22/17 18:04 JENY (Rec: 06/22/17 18:15 [facility]) Nutritional Asmnt/Malnutrition Patient General Information Nutritional Screening High Risk Consult Diagnosis left lower extremity DVT, severe anemia, CHF, HTN Pertinent Medical Hx/Surgical Hx DM, anemia, renal stones, schizophrenia Subjective Information Pt seen lying in bed, confused at time of visit. Spoke with LULÚ Seay, RN reported pt ate well, consumed 60% of breakfast this morning. Per notes, pt has EGD and colonoscopy scheduled tommorrow. Current Diet Order/ Nutrition Support pureed Pertinent Medications D5-0.9ns, novolog, remeron, kcl Pertinent Labs 06/21 Na 137, K 3.5, Cl 100, BUN 24, Cr 1.3, Glucose 186, AST 10, ALT 6, Alb 2.6 06/22 POC 383 Nutritional Hx/Data Height 1.52 m Height (Calculated Centimeters) 152.4 Current Weight (lbs) 39.009 kg Weight (Calculated Kilograms) 39.0 Weight (Calculated Grams) [address]24.9 [place] Body Weight 100 % [place] Body Weight 86 Body Mass Index (BMI) 16.7 Weight Status Underweight GI Symptoms GI Symptoms None Last BM none Difficult in: None Skin Integrity/Comment: intact Current %PO Fair (50-74%) Estimated Nutritional Goals Calories/Kcals/Kg 25-30 based on IBW 45kg Kcals Calculated 8725-9734 Protein g/k-1.2 Protein Calculated 45-54 Fluid: ml 1125-1350ml (1ml/kcal) Nutritional Problem 1. Problem Problem altered nutrition related lab values Etiology hx of DM Signs/Symptoms: Glucose 186, POC 383 Malnutrition Alert Protein-Calorie Malnutrition N/A Is there a minimum of two criteria No selected? Query Text:Check all the applicable criteria. A minimum of two criteria are recommended for diagnosis of either severe or non-severe malnutrition. Intervention/Recommendation Comments 1. Recommend CCHO, low sodium diet for optimal glycemic and BP control. RN notified. 2. Monitor PO intake, wt, labs and skin integrity 3. F/U as high risk in 2-3 days, 06/24-06/25 Expected Outcomes/Goals Expected Outcomes/Goals 1. PO intake to meet at least 75% of nutritional needs. 2. Wt stability, skin to remain intact, labs to improve
--- NOTE | 2017-07-01 15:18 | Internal Medicine Prog Note ---
Internal Medicine Subjective - Subjective Service Date: 07/01/17 Patient is:: awake, non-interactive Patient Complaints of:: congestion Per staff patient has:: no adverse event, no episodes of fall, noncompliant, tolerating meds Internal Medicine Objective - Results Result Diagrams: 07/01/17 08:40 07/01/17 08:40 Recent Labs: Laboratory Last Values WBC 12.7 Th/cmm (4.8-10.8) H D 07/01/17 08:40 RBC 2.88 Mil/cmm (3.80-5.20) L 07/01/17 08:40 Hgb 7.8 gm/dL (12-16) L* 07/01/17 08:40 Hct 24.1 % (41.0-60) L 07/01/17 08:40 MCV 83.8 fl (81-100) 07/01/17 08:40 MCH 27.0 pg (27.0-31.0) 07/01/17 08:40 MCHC Differential 32.2 pg (28.0-36.0) 07/01/17 08:40 RDW 15.3 % (11.5-20.0) 07/01/17 08:40 Plt Count 501 Th/cmm (150-400) H 07/01/17 08:40 MPV 7.4 fl 07/01/17 08:40 Neutrophils % 83.6 % (40.0-80.0) H 07/01/17 08:40 Band Neutrophils % 7 % (0-10) 06/30/17 03:52 Lymphocytes % 11.5 % (20.0-50.0) L 07/01/17 08:40 Monocytes % 4.3 % (2.0-10.0) 07/01/17 08:40 Eosinophils % 0.4 % (0.0-5.0) 07/01/17 08:40 Basophils % 0.2 % (0.0-2.0) 07/01/17 08:40 Neutrophils (Manual) 86 % (40-80) H 06/30/17 03:52 Lymphocytes 5 % (20-50) L 06/30/17 03:52 Monocytes 2 % (2-10) 06/30/17 03:52 Platelet Estimate ADEQUATE (NORMAL) 06/30/17 03:52 PT 11.8 SECONDS (9.5-11.5) H 06/28/17 04:10 INR 1.12 (0.5-1.4) 06/28/17 04:10 PTT (Actin FS) 39.0 SECONDS (26.0-38.0) H 07/01/17 12:00 D-Dimer 3600 ng/mL (100-400) H 06/21/17 18:20 Specimen Source Arterial 06/28/17 10:55 Sample Site Right Radial 06/28/17 10:55 pH 7.44 (7.35-7.45) 06/28/17 10:55 pCO2 36.0 mmHg (35.0-45.0) 06/28/17 10:55 pO2 100.0 mmHg (80.0-100.0) 06/28/17 10:55 HCO3 25.4 mEq/L (20.0-26.0) 06/28/17 10:55 Base Excess 0.6 mEq/L (-3.0-3.0) 06/28/17 10:55 O2 Saturation 98.0 % (92.0-100.0) 06/28/17 10:55 Rashid Test Positive 06/28/17 10:55 Vent Rate N/A 06/28/17 10:55 Inspired O2 28 06/28/17 10:55 Tidal Volume N/A 06/28/17 10:55 PEEP N/A 06/28/17 10:55 Pressure (ins/psv/peep) N/A 06/28/17 10:55 Critical Value DM 06/28/17 10:55 Sodium 147 mEq/L (136-145) H 07/01/17 08:40 Potassium 3.2 mEq/L (3.5-5.1) L 07/01/17 08:40 Chloride 113 mEq/L (98-107) H 07/01/17 08:40 Carbon Dioxide 25.3 mEq/L (21.0-31.0) 07/01/17 08:40 Anion Gap 11.9 (7.0-16.0) 07/01/17 08:40 BUN 18 mg/dL (7-25) 07/01/17 08:40 Creatinine 1.9 mg/dL (0.6-1.2) H 07/01/17 08:40 Est GFR ( Amer) TNP 02/02/18 08:40 Est GFR (Non-Af Amer) TNP 07/01/17 08:40 BUN/Creatinine Ratio 9.5 07/01/17 08:40 Glucose 178 mg/dL (70-105) H 07/01/17 08:40 POC Glucose 168 MG/DL (70 - 105) H 07/01/17 11:44 Hemoglobin A1c % 11.7 % (4.0-6.0) H 06/21/17 18:20 Calcium 8.6 mg/dL (8.6-10.3) 07/01/17 08:40 Magnesium 2.0 mg/dL (1.9-2.7) 06/30/17 03:52 Iron 19 ug/dL (27-139) L 06/22/17 05:20 TIBC 176 ug/dL (250-450) L 06/22/17 05:20 Iron Saturation 11 % (15-55) L 06/22/17 05:20 Unsaturated IBC 157 ug/dL (118-369) 06/22/17 05:20 Ferritin 164 ng/mL (15-150) H 06/22/17 05:20 Total Bilirubin 0.2 mg/dL (0.3-1.0) L 06/28/17 04:10 AST 24 U/L (13-39) 06/28/17 04:10 ALT 19 U/L (7-52) 06/28/17 04:10 Alkaline Phosphatase 66 U/L (34-104) 06/28/17 04:10 Ammonia 36 umol/L (16-53) 06/30/17 03:52 Creatine Kinase 39 U/L (30-223) 06/21/17 18:20 Troponin I 0.01 ng/mL (0.01-0.05) 06/21/17 18:20 B-Natriuretic Peptide 187.0 pg/mL (5.0-100.0) H 07/01/17 08:40 Total Protein 5.6 gm/dL (6.0-8.3) L 06/28/17 04:10 Albumin 2.3 gm/dL (3.7-5.3) L 06/28/17 04:10 Globulin 3.3 gm/dL 06/28/17 04:10 Albumin/Globulin Ratio 0.7 (1.0-1.8) L 06/28/17 04:10 Triglycerides 104 mg/dL (<150) 06/21/17 18:20 Cholesterol 129 mg/dL (<200) 06/21/17 18:20 LDL Cholesterol Direct 65 mg/dL (75-193) L 06/21/17 18:20 HDL Cholesterol 43 mg/dL (23-92) 06/21/17 18:20 Vitamin B12 621 pg/mL (232-1245) 06/22/17 05:20 Folic Acid 14.7 ng/mL (>3.0) 06/22/17 05:20 Helicobacter pylori Ab POSITIVE (NEGATIVE) 06/23/17 10:50 Blood Type O POSITIVE 06/26/17 10:15 Antibody Screen NEGATIVE 06/26/17 10:15 Crossmatch See Detail 06/26/17 10:15 - Physical Exam Vitals and I&O: Vital Signs Temp 97.2 F 07/01/17 13:00 Pulse 81 07/01/17 15:05 Resp 15 07/01/17 13:00 BP 162/75 07/01/17 15:05 Pulse Ox 96 07/01/17 14:00 Intake & Output 06/30/17 07/01/17 07/01/17 18:59 06:59 18:59 Intake Total 778.958 3232.992 150 Output Total 450 350 Balance 876.979 6753.992 150 Weight (lbs) 125 lb 125 lb Intake: Intake, IV Amount 439.430 9339.992 150 D5-0.45NS w/40 mEq KCL 1, 1160 000 ml @ 75 mls/hr IV . [id number] [facility] Rx#:[id number] Heparin 25,000 Units In 182.277 169.992 D5W 25,000 units In 250 ml @ Titrate IV TITR PRN Rx#:[id number] Iron Dextran Complex 100 102 mg In Sodium Chloride 0.9 % 100 ml @ 100 mls/hr IV Q24H ED Rx#:[id number] Piperacillin Sodium/ 100 150 50 Tazobact 3.375 gm In Sodium Chloride 0.9% 50 ml @ 100 mls/hr IV Q6HR ED Rx#:[id number] metroNIDAZOLE 500mg/NS 200 200 100 100mL 500 mg In 100 ml @ 100 mls/hr IV Q8HR ED Rx #:[id number] Oral 0 Output: Urine 350 350 Stool 0 Emesis 100 Active Medications: Current Medications Acetaminophen (Tylenol) 650 mg PO Q4H PRN PRN Reason: Pain Or Fever above 101 Stop: 08/20/17 19:40 Al Hydrox/Mg Hydrox/Simethicone (Maalox) 30 ml PO Q6H PRN PRN Reason: Dyspepsia Stop: 08/20/17 19:40 Albuterol Sulfate (Albuterol 2.5mg/3ml Neb Ud) 2.5 mg HHN Q2HRT PRN PRN Reason: Shortness of Breath or Wheeze Stop: 08/20/17 19:40 Amlodipine Besylate (Norvasc) 10 mg PO DAILY [facility] Stop: 08/21/17 08:59 Last Admin: 07/01/17 08:25 Dose: Not Given Clonidine HCl (Wwjtljov-Ime-7) 1 patch TD We [facility] Stop: 08/28/17 13:14 Last Admin: 06/29/17 13:30 Dose: 1 patch Enalaprilat (Vasotec) 1.25 mg IVP Q6HR PRN PRN Reason: Sbp Above 170MMHG Stop: 08/22/17 11:59 Last Admin: 07/01/17 15:05 Dose: 1.25 mg Guaifenesin (Robitussin) 200 mg PO Q4HR PRN PRN Reason: Cough or Congestion Stop: 08/20/17 19:40 Haloperidol Decanoate (Haldol Dec) 25 mg IM QMONTH [facility] Stop: 08/23/17 09:59 Last Admin: 06/24/17 09:10 Dose: 25 mg Hydralazine HCl (Apresoline 20 Mg/Ml) 10 mg IV Q6HR PRN PRN Reason: SBP ABOVE 160 Stop: 08/25/17 12:20 Last Admin: 07/01/17 10:45 Dose: 10 mg Iron Dextran 100 mg/ Sodium (Chloride) 102 mls @ 100 mls/hr IV Q24H [facility] Stop: 07/01/17 18:02 Last Infusion: 06/30/17 18:23 Dose: Infused Piperacillin Sod/Tazobactam (Sod 3.375 gm/ Sodium Chloride) 50 mls @ 100 mls/ hr IV Q6HR [facility] Stop: 07/10/17 05:59 Last Infusion: 07/01/17 12:00 Dose: Infused Metronidazole (Flagyl) 500 mg in 100 mls @ 100 mls/hr IV Q8HR [facility] Stop: 08/29/17 06:14 Last Infusion: 07/01/17 14:05 Dose: Infused Potassium Chloride/Dextrose/Sod Cl (D5-0.45ns W/40 Meq Kcl) 1,000 mls @ 75 mls/ hr IV .[id number] [facility] Stop: 08/29/17 12:44 Last Infusion: 07/01/17 06:00 Dose: 75 mls/hr Potassium Chloride 40 meq/Lidocaine HCl 25 mg/ Sodium Chloride 272.5 mls @ 68 mls/hr IV X1 ONE Stop: 07/01/17 17:16 Last Admin: 07/01/17 14:01 Dose: 68 mls/hr Insulin Aspart (Novolog) 0 units SUBQ ACHS ED PRN Reason: Protocol Stop: 08/21/17 16:29 Last Admin: 07/01/17 11:45 Dose: Not Given Ipratropium [place] (Atrovent Neb 0.5mg/2.5ml) 0.5 mg IH Q2HRT PRN PRN Reason: Shortness of Breath or Wheeze Stop: 08/20/17 19:40 Lactobacillus Rhamnosus (Culturelle 15b) 1 each PO DAILY [facility] Stop: 08/30/17 08:59 Last Admin: 07/01/17 08:25 Dose: Not Given Mirtazapine (Remeron) 15 mg PO HS [facility] PRN Reason: Protocol Stop: 08/20/17 20:59 Last Admin: 06/30/17 20:40 Dose: 15 mg Miscellaneous (Probiotic Screen) 1 ea MC PRN PRN PRN Reason: PROTOCOL Stop: 08/29/17 11:59 Morphine Sulfate (Morphine) 2 mg IVP Q3H PRN PRN Reason: Pain (Severe) Stop: 08/20/17 19:40 Last Admin: 07/01/17 15:00 Dose: 2 mg Nitroglycerin (Nitrostat) 0.4 mg SL Q5MIN PRN PRN Reason: Chest Pain Stop: 08/20/17 19:40 Ondansetron HCl (Zofran) 4 mg IV Q8H PRN PRN Reason: Nausea / Vomiting Stop: 08/20/17 19:40 General: weak, alert HEENT: NC/AT, PERRLA Neck: Supple Lungs: ronchi Cardiovascular: RRR, Normal S1, Normal S2, without murmur Abdomen: soft, non-tender, non-distended, positive bowel sound Extremities: excoriation Neurological: alert - Procedures Procedures: Procedures Procedure Code Date PARTIAL REMOVAL OF COLON 85060 06/21/17 RESECTION OF RIGHT LARGE INTESTINE, OPEN APPROACH [id number] 06/21/17 Internal Medicine Assmt/Plan - Assessment Assessment: acute dvt cecal mass s/p exploratory lap right right hemicolectomy severe anemia dm2 schizophrenia htn psychosis hypokalemia - Plan Plan: monitor electrolytes follow up labs in am will follow technology methodology consultant recommendations Nutritional Asmnt/Malnutr-PDOC - Dietary Evaluation Malnutrition Findings (Please click <Entered> for more info): Nutritional Asmnt/Malnutrition Start: 06/22/17 18: 04 Text: Status: Complete Freq: Document 06/22/17 18:04 GRISELDA (Rec: 06/22/17 18:15 LCHENG [email or web address]) Nutritional Asmnt/Malnutrition Patient General Information Nutritional Screening High Risk Consult Diagnosis left lower extremity DVT, severe anemia, CHF, HTN Pertinent Medical Hx/Surgical Hx DM, anemia, renal stones, schizophrenia Subjective Information Pt seen lying in bed, confused at time of visit. Spoke with LULÚ Seay RN reported pt ate well, consumed 60% of breakfast this morning. Per notes, pt has EGD and colonoscopy scheduled tommorrow. Current Diet Order/ Nutrition Support pureed Pertinent Medications D5-0.9ns, novolog, remeron, kcl Pertinent Labs 06/21 Na 137, K 3.5, Cl 100, BUN 24, Cr 1.3, Glucose 186, AST 10, ALT 6, Alb 2.6 06/22 POC 383 Nutritional Hx/Data Height 5 ft Height (Calculated Centimeters) 152.4 Current Weight (lbs) 86 lb Weight (Calculated Kilograms) 39.0 Weight (Calculated Grams) 05081.9 [place] Body Weight 100 % [place] Body Weight 86 Body Mass Index (BMI) 16.7 Weight Status Underweight GI Symptoms GI Symptoms None Last BM none Difficult in: None Skin Integrity/Comment: intact Current %PO Fair (50-74%) Estimated Nutritional Goals Calories/Kcals/Kg 25-30 based on IBW 45kg Kcals Calculated 7184-1555 Protein g/k-1.2 Protein Calculated 45-54 Fluid: ml 1125-1350ml (1ml/kcal) Nutritional Problem 1. Problem Problem altered nutrition related lab values Etiology hx of DM Signs/Symptoms: Glucose 186, POC 383 Malnutrition Alert Protein-Calorie Malnutrition N/A Is there a minimum of two criteria No selected? Query Text:Check all the applicable criteria. A minimum of two criteria are recommended for diagnosis of either severe or non-severe malnutrition. Intervention/Recommendation Comments 1. Recommend CCHO, low sodium diet for optimal glycemic and BP control. RN notified. 2. Monitor PO intake, wt, labs and skin integrity 3. F/U as high risk in 2-3 days, 06/24-06/25 Expected Outcomes/Goals Expected Outcomes/Goals 1. PO intake to meet at least 75% of nutritional needs. 2. Wt stability, skin to remain intact, labs to improve
[2017-07-01] MEDS: NS 0.9% IV SCH (16:10)
[2017-07-01] MEDS: IRON DEXTRAN IV SCH (16:10)
[2017-07-01] MEDS: Albuterol/Ipratropium Neb 3 ML AERS HHN SCH (19:22)
[2017-07-02] MEDS: Albuterol/Ipratropium Neb 3 ML AERS HHN SCH ×4 (00:15→18:49)
[2017-07-02] MEDS: Morphine Sulfate 2 mg/mL 1mL Syr IVP PRN ×2 (03:10→21:07)
[2017-07-02] MEDS: metroNIDAZOLE 500mg/NS 100mL 500 MG/100 ML BAG IV SCH ×3 (04:05→21:06)
[2017-07-02 04:13] LABS: % BASOPHILS 0.3 % (0.0-2.0); % EOSINOPHILS 1.1 % (0.0-5.0); % LYMPHOCYTES 14.2 % (20.0-50.0); % MONOCYTES 6.8 % (2.0-10.0); % NEUTROPHILS 77.6 % (40.0-80.0); EOSINOPHILE ABSOLUTE 0.1 Th/cmm (0.1-0.4); HEMATOCRIT 24.4 % (41.0-60); LYMPHOCYTE ABSOLUTE 1.6 Th/cmm (1.5-3.0); MEAN CELL VOLUME 84.6 fl (81-100); MEAN CORPUSCULAR HEMOGLOBIN 27.6 pg (27.0-31.0); MEAN CORPUSCULAR HGB CONC 32.6 pg (28.0-36.0); MEAN PLATELET VOLUME 7.6 fl; MONOCYTE ABSOLUTE 0.8 Th/cmm (0.3-1.0); NEUTROPHILE ABSOLUTE 8.8 Th/cmm (1.8-8.0); PLATELET COUNT 511 Th/cmm (150-400); RED BLOOD COUNT 2.88 Mil/cmm (3.80-5.20); RED CELL DISTRIBUTION WIDTH 15.5 % (11.5-20.0); WHITE BLOOD COUNT 11.3 Th/cmm (4.8-10.8)
[2017-07-02 04:19] LABS: HEMOGLOBIN 7.9 gm/dL (12-16)
[2017-07-02 04:42] LABS: ANION GAP 11.7 (7.0-16.0); BUN - UREA NITROGEN 17 mg/dL (7-25); CALCIUM SERUM 8.4 mg/dL (8.6-10.3); CARBON DIOXIDE 25.1 mEq/L (21.0-31.0); CHLORIDE 115 mEq/L (98-107); CREATININE - SERUM 1.7 mg/dL (0.6-1.2); GLUCOSE 164 mg/dL (70-105); MAGNESIUM 1.8 mg/dL (1.9-2.7); POTASSIUM SERUM 3.8 mEq/L (3.5-5.1); SODIUM SERUM 148 mEq/L (136-145)
--- NOTE | 2017-07-02 09:24 | GI Progress Note ---
Subjective - Review of Systems Subjective: COFFEE GROUND IN NGT Objective - Results Result Diagrams: 07/02/17 03:41 07/02/17 03:41 Recent Labs: Laboratory Last Values WBC 11.3 Th/cmm (4.8-10.8) H 07/02/17 03:41 RBC 2.88 Mil/cmm (3.80-5.20) L 07/02/17 03:41 Hgb 7.9 gm/dL (12-16) L* 07/02/17 03:41 Hct 24.4 % (41.0-60) L 07/02/17 03:41 MCV 84.6 fl (81-100) 07/02/17 03:41 MCH 27.6 pg (27.0-31.0) 07/02/17 03:41 MCHC Differential 32.6 pg (28.0-36.0) 07/02/17 03:41 RDW 15.5 % (11.5-20.0) 07/02/17 03:41 Plt Count 511 Th/cmm (150-400) H 07/02/17 03:41 MPV 7.6 fl 07/02/17 03:41 Neutrophils % 77.6 % (40.0-80.0) 07/02/17 03:41 Band Neutrophils % 7 % (0-10) 06/30/17 03:52 Lymphocytes % 14.2 % (20.0-50.0) L 07/02/17 03:41 Monocytes % 6.8 % (2.0-10.0) 07/02/17 03:41 Eosinophils % 1.1 % (0.0-5.0) 07/02/17 03:41 Basophils % 0.3 % (0.0-2.0) 07/02/17 03:41 Neutrophils (Manual) 86 % (40-80) H 06/30/17 03:52 Lymphocytes 5 % (20-50) L 06/30/17 03:52 Monocytes 2 % (2-10) 06/30/17 03:52 Platelet Estimate ADEQUATE (NORMAL) 06/30/17 03:52 PT 11.8 SECONDS (9.5-11.5) H 06/28/17 04:10 INR 1.12 (0.5-1.4) 06/28/17 04:10 PTT (Actin FS) 29.1 SECONDS (26.0-38.0) 07/02/17 03:41 D-Dimer 3600 ng/mL (100-400) H 06/21/17 18:20 Specimen Source Arterial 06/28/17 10:55 Sample Site Right Radial 06/28/17 10:55 pH 7.44 (7.35-7.45) 06/28/17 10:55 pCO2 36.0 mmHg (35.0-45.0) 06/28/17 10:55 pO2 100.0 mmHg (80.0-100.0) 06/28/17 10:55 HCO3 25.4 mEq/L (20.0-26.0) 06/28/17 10:55 Base Excess 0.6 mEq/L (-3.0-3.0) 06/28/17 10:55 O2 Saturation 98.0 % (92.0-100.0) 06/28/17 10:55 Rashid Test Positive 06/28/17 10:55 Vent Rate N/A 06/28/17 10:55 Inspired O2 28 06/28/17 10:55 Tidal Volume N/A 06/28/17 10:55 PEEP N/A 06/28/17 10:55 Pressure (ins/psv/peep) N/A 06/28/17 10:55 Critical Value DM 06/28/17 10:55 Sodium 148 mEq/L (136-145) H 07/02/17 03:41 Potassium 3.8 mEq/L (3.5-5.1) 07/02/17 03:41 Chloride 115 mEq/L (98-107) H 07/02/17 03:41 Carbon Dioxide 25.1 mEq/L (21.0-31.0) 07/02/17 03:41 Anion Gap 11.7 (7.0-16.0) 07/02/17 03:41 BUN 17 mg/dL (7-25) 07/02/17 03:41 Creatinine 1.7 mg/dL (0.6-1.2) H 07/02/17 03:41 Est GFR ( Amer) TNP 07/02/17 03:41 Est GFR (Non-Af Amer) TNP 07/02/17 03:41 BUN/Creatinine Ratio 10.0 07/02/17 03:41 Glucose 164 mg/dL (70-105) H 07/02/17 03:41 POC Glucose 153 MG/DL (70 - 105) H 07/02/17 05:44 Hemoglobin A1c % 11.7 % (4.0-6.0) H 06/21/17 18:20 Calcium 8.4 mg/dL (8.6-10.3) L 07/02/17 03:41 Magnesium 1.8 mg/dL (1.9-2.7) L 07/02/17 03:41 Iron 19 ug/dL (27-139) L 06/22/17 05:20 TIBC 176 ug/dL (250-450) L 06/22/17 05:20 Iron Saturation 11 % (15-55) L 06/22/17 05:20 Unsaturated IBC 157 ug/dL (118-369) 06/22/17 05:20 Ferritin 164 ng/mL (15-150) H 06/22/17 05:20 Total Bilirubin 0.2 mg/dL (0.3-1.0) L 06/28/17 04:10 AST 24 U/L (13-39) 06/28/17 04:10 ALT 19 U/L (7-52) 06/28/17 04:10 Alkaline Phosphatase 66 U/L (34-104) 06/28/17 04:10 Ammonia 38 umol/L (16-53) 07/02/17 03:41 Creatine Kinase 39 U/L (30-223) 06/21/17 18:20 Troponin I 0.01 ng/mL (0.01-0.05) 06/21/17 18:20 B-Natriuretic Peptide 187.0 pg/mL (5.0-100.0) H 07/01/17 08:40 Total Protein 5.6 gm/dL (6.0-8.3) L 06/28/17 04:10 Albumin 2.3 gm/dL (3.7-5.3) L 06/28/17 04:10 Globulin 3.3 gm/dL 06/28/17 04:10 Albumin/Globulin Ratio 0.7 (1.0-1.8) L 06/28/17 04:10 Triglycerides 104 mg/dL (<150) 06/21/17 18:20 Cholesterol 129 mg/dL (<200) 06/21/17 18:20 LDL Cholesterol Direct 65 mg/dL (75-193) L 06/21/17 18:20 HDL Cholesterol 43 mg/dL (23-92) 06/21/17 18:20 Vitamin B12 621 pg/mL (232-1245) 06/22/17 05:20 Folic Acid 14.7 ng/mL (>3.0) 06/22/17 05:20 Helicobacter pylori Ab POSITIVE (NEGATIVE) 06/23/17 10:50 Blood Type O POSITIVE 06/26/17 10:15 Antibody Screen NEGATIVE 06/26/17 10:15 Crossmatch See Detail 06/26/17 10:15 - Physical Exam Vitals and I&O: Vital Signs Temp 97.4 F 07/02/17 05:00 Pulse 96 07/02/17 05:58 Resp 16 07/02/17 05:00 BP 196/97 07/02/17 05:58 Pulse Ox 99 07/02/17 05:00 Intake & Output 07/01/17 07/02/17 07/02/17 18:59 06:59 18:59 Intake Total 1178 330 Output Total 650 750 Balance 528 -420 Weight (lbs) 57.209 kg 57.805 kg Intake: Intake, IV Amount 1132 300 D5-0.45NS w/40 mEq KCL 1, 830 000 ml @ 75 mls/hr IV . [id number] ED Rx#:[id number] Iron Dextran Complex 100 102 mg In Sodium Chloride 0.9 % 100 ml @ 100 mls/hr IV Q24H ED Rx#:[id number] Piperacillin Sodium/ 100 100 Tazobact 3.375 gm In Sodium Chloride 0.9% 50 ml @ 100 mls/hr IV Q6HR ED Rx#:[id number] metroNIDAZOLE 500mg/NS 100 200 100mL 500 mg In 100 ml @ 100 mls/hr IV Q8HR ED Rx #:[id number] Tube Feeding 0 Other 46 30 Output: Gastric Drainage 250 300 Urine 400 450 Other: # Bowel Movements 0 0 Active Medications: Current Medications Acetaminophen (Tylenol) 650 mg PO Q4H PRN PRN Reason: Pain Or Fever above 101 Stop: 08/20/17 19:40 Al Hydrox/Mg Hydrox/Simethicone (Maalox) 30 ml PO Q6H PRN PRN Reason: Dyspepsia Stop: 08/20/17 19:40 Albuterol Sulfate (Albuterol 2.5mg/3ml Neb Ud) 2.5 mg HHN Q2HRT PRN PRN Reason: Shortness of Breath or Wheeze Stop: 08/20/17 19:40 Albuterol/Ipratropium (Duoneb Neb) 3 ml HHN Q6HRT [facility] Stop: 08/30/17 18:59 Last Admin: 07/02/17 06:58 Dose: 3 ml Amlodipine Besylate (Norvasc) 10 mg PO DAILY [facility] Stop: 08/21/17 08:59 Last Admin: 07/01/17 08:25 Dose: Not Given Clonidine HCl (Aytgcxps-Vwz-7) 1 patch TD We [facility] Stop: 08/28/17 13:14 Last Admin: 06/29/17 13:30 Dose: 1 patch Enalaprilat (Vasotec) 1.25 mg IVP Q6HR PRN PRN Reason: Sbp Above 170MMHG Stop: 08/22/17 11:59 Last Admin: 07/02/17 03:15 Dose: 1.25 mg Guaifenesin (Robitussin) 200 mg PO Q4HR PRN PRN Reason: Cough or Congestion Stop: 08/20/17 19:40 Haloperidol Decanoate (Haldol Dec) 25 mg IM QMONTH [facility] Stop: 08/23/17 09:59 Last Admin: 06/24/17 09:10 Dose: 25 mg Hydralazine HCl (Apresoline 20 Mg/Ml) 10 mg IV Q6HR PRN PRN Reason: SBP ABOVE 160 Stop: 08/25/17 12:20 Last Admin: 07/02/17 05:58 Dose: 10 mg Piperacillin Sod/Tazobactam (Sod 3.375 gm/ Sodium Chloride) 50 mls @ 100 mls/ hr IV Q6HR [facility] Stop: 07/10/17 05:59 Last Infusion: 07/02/17 06:37 Dose: Infused Metronidazole (Flagyl) 500 mg in 100 mls @ 100 mls/hr IV Q8HR [facility] Stop: 08/29/17 06:14 Last Infusion: 07/02/17 05:05 Dose: Infused Potassium Chloride/Dextrose/Sod Cl (D5-0.45ns W/40 Meq Kcl) 1,000 mls @ 75 mls/ hr IV .[id number] ED Stop: 08/29/17 12:44 Last Infusion: 07/01/17 17:04 Dose: 75 mls/hr Insulin Aspart (Novolog) 0 units SUBQ ACHS ED PRN Reason: Protocol Stop: 08/21/17 16:29 Last Admin: 07/01/17 21:15 Dose: Not Given Ipratropium [place] (Atrovent Neb 0.5mg/2.5ml) 0.5 mg IH Q2HRT PRN PRN Reason: Shortness of Breath or Wheeze Stop: 08/20/17 19:40 Lactobacillus Rhamnosus (Culturelle 15b) 1 each PO DAILY ED Stop: 08/30/17 08:59 Last Admin: 07/01/17 08:25 Dose: Not Given Mirtazapine (Remeron) 15 mg PO HS ED PRN Reason: Protocol Stop: 08/20/17 20:59 Last Admin: 07/01/17 21:10 Dose: Not Given Miscellaneous (Probiotic Screen) 1 ea MC PRN PRN PRN Reason: PROTOCOL Stop: 08/29/17 11:59 Morphine Sulfate (Morphine) 2 mg IVP Q3H PRN PRN Reason: Pain (Severe) Stop: 08/20/17 19:40 Last Admin: 07/02/17 03:10 Dose: 2 mg Nitroglycerin (Nitrostat) 0.4 mg SL Q5MIN PRN PRN Reason: Chest Pain Stop: 08/20/17 19:40 Ondansetron HCl (Zofran) 4 mg IV Q8H PRN PRN Reason: Nausea / Vomiting Stop: 08/20/17 19:40 General: Other (extubated) HEENT: Atraumatic Neck: Supple Cardiovascular: Regular rate Abdomen: Bowel sounds, Soft, Other (dressing in midline no bleeding) Extremities: Other (right arm hematoma) - Procedures Procedures: Procedures Procedure Code Date PARTIAL REMOVAL OF COLON 01656 06/21/17 RESECTION OF RIGHT LARGE INTESTINE, OPEN APPROACH [id number] 06/21/17 Assessment/Plan - Problem List Patient Problems: All Active Problems Altered mental status (Acute) R41.82 Failure to thrive (Acute) [id number] Schizophrenia (Acute) F20.9 Anxiety (Chronic) F41.9 Chronic Kidney Disease (Chronic) Hypertension (Chronic) - Assessment Assessment: 76 YO FEMALE EGD SHOWED GASTRITIS COLO SHOWED POLYP REG RIGHT HEMICOLECTOMY HGB STABLE 1.PROTONIX 2.FOLLOW H/H 3.DIET PER SURGEON
[2017-07-02] MEDS: INSULIN ASPART, RECOMBINANT 100 UNITS/ML SUBQ SCH ×4 (09:37→21:35)
[2017-07-02] MEDS: D5-0.45NS w/40 mEq KCL 1,000 ML IV SCH (11:11)
[2017-07-02] MEDS: Lactobacillus Rhamnosus GG 15 Billion CFU CAP.SPRINK PO SCH (11:12)
--- NOTE | 2017-07-02 15:30 | General Progress Note ---
Subjective - Review of Systems Service Date: 07/02/17 Objective - Results Result Diagrams: 07/02/17 03:41 07/02/17 03:41 Recent Labs: Laboratory Last Values WBC 11.3 Th/cmm (4.8-10.8) H 07/02/17 03:41 RBC 2.88 Mil/cmm (3.80-5.20) L 07/02/17 03:41 Hgb 7.9 gm/dL (12-16) L* 07/02/17 03:41 Hct 24.4 % (41.0-60) L 07/02/17 03:41 MCV 84.6 fl (81-100) 07/02/17 03:41 MCH 27.6 pg (27.0-31.0) 07/02/17 03:41 MCHC Differential 32.6 pg (28.0-36.0) 07/02/17 03:41 RDW 15.5 % (11.5-20.0) 07/02/17 03:41 Plt Count 511 Th/cmm (150-400) H 07/02/17 03:41 MPV 7.6 fl 07/02/17 03:41 Neutrophils % 77.6 % (40.0-80.0) 07/02/17 03:41 Band Neutrophils % 7 % (0-10) 06/30/17 03:52 Lymphocytes % 14.2 % (20.0-50.0) L 07/02/17 03:41 Monocytes % 6.8 % (2.0-10.0) 07/02/17 03:41 Eosinophils % 1.1 % (0.0-5.0) 07/02/17 03:41 Basophils % 0.3 % (0.0-2.0) 07/02/17 03:41 Neutrophils (Manual) 86 % (40-80) H 06/30/17 03:52 Lymphocytes 5 % (20-50) L 06/30/17 03:52 Monocytes 2 % (2-10) 06/30/17 03:52 Platelet Estimate ADEQUATE (NORMAL) 06/30/17 03:52 PT 11.8 SECONDS (9.5-11.5) H 06/28/17 04:10 INR 1.12 (0.5-1.4) 06/28/17 04:10 PTT (Actin FS) 29.1 SECONDS (26.0-38.0) 07/02/17 03:41 D-Dimer 3600 ng/mL (100-400) H 06/21/17 18:20 Specimen Source Arterial 06/28/17 10:55 Sample Site Right Radial 06/28/17 10:55 pH 7.44 (7.35-7.45) 06/28/17 10:55 pCO2 36.0 mmHg (35.0-45.0) 06/28/17 10:55 pO2 100.0 mmHg (80.0-100.0) 06/28/17 10:55 HCO3 25.4 mEq/L (20.0-26.0) 06/28/17 10:55 Base Excess 0.6 mEq/L (-3.0-3.0) 06/28/17 10:55 O2 Saturation 98.0 % (92.0-100.0) 06/28/17 10:55 Rashid Test Positive 06/28/17 10:55 Vent Rate N/A 06/28/17 10:55 Inspired O2 28 06/28/17 10:55 Tidal Volume N/A 06/28/17 10:55 PEEP N/A 06/28/17 10:55 Pressure (ins/psv/peep) N/A 06/28/17 10:55 Critical Value DM 06/28/17 10:55 Sodium 148 mEq/L (136-145) H 07/02/17 03:41 Potassium 3.8 mEq/L (3.5-5.1) 07/02/17 03:41 Chloride 115 mEq/L (98-107) H 07/02/17 03:41 Carbon Dioxide 25.1 mEq/L (21.0-31.0) 07/02/17 03:41 Anion Gap 11.7 (7.0-16.0) 07/02/17 03:41 BUN 17 mg/dL (7-25) 07/02/17 03:41 Creatinine 1.7 mg/dL (0.6-1.2) H 07/02/17 03:41 Est GFR ( Amer) TNP 07/02/17 03:41 Est GFR (Non-Af Amer) TNP 07/02/17 03:41 BUN/Creatinine Ratio 10.0 07/02/17 03:41 Glucose 164 mg/dL (70-105) H 07/02/17 03:41 POC Glucose 153 MG/DL (70 - 105) H 07/02/17 05:44 Hemoglobin A1c % 11.7 % (4.0-6.0) H 06/21/17 18:20 Calcium 8.4 mg/dL (8.6-10.3) L 07/02/17 03:41 Magnesium 1.8 mg/dL (1.9-2.7) L 07/02/17 03:41 Iron 19 ug/dL (27-139) L 06/22/17 05:20 TIBC 176 ug/dL (250-450) L 06/22/17 05:20 Iron Saturation 11 % (15-55) L 06/22/17 05:20 Unsaturated IBC 157 ug/dL (118-369) 06/22/17 05:20 Ferritin 164 ng/mL (15-150) H 06/22/17 05:20 Total Bilirubin 0.2 mg/dL (0.3-1.0) L 06/28/17 04:10 AST 24 U/L (13-39) 06/28/17 04:10 ALT 19 U/L (7-52) 06/28/17 04:10 Alkaline Phosphatase 66 U/L (34-104) 06/28/17 04:10 Ammonia 38 umol/L (16-53) 07/02/17 03:41 Creatine Kinase 39 U/L (30-223) 06/21/17 18:20 Troponin I 0.01 ng/mL (0.01-0.05) 06/21/17 18:20 B-Natriuretic Peptide 187.0 pg/mL (5.0-100.0) H 07/01/17 08:40 Total Protein 5.6 gm/dL (6.0-8.3) L 06/28/17 04:10 Albumin 2.3 gm/dL (3.7-5.3) L 06/28/17 04:10 Globulin 3.3 gm/dL 06/28/17 04:10 Albumin/Globulin Ratio 0.7 (1.0-1.8) L 06/28/17 04:10 Triglycerides 104 mg/dL (<150) 06/21/17 18:20 Cholesterol 129 mg/dL (<200) 06/21/17 18:20 LDL Cholesterol Direct 65 mg/dL (75-193) L 06/21/17 18:20 HDL Cholesterol 43 mg/dL (23-92) 06/21/17 18:20 Vitamin B12 621 pg/mL (232-1245) 06/22/17 05:20 Folic Acid 14.7 ng/mL (>3.0) 06/22/17 05:20 Helicobacter pylori Ab POSITIVE (NEGATIVE) 06/23/17 10:50 Blood Type O POSITIVE 06/26/17 10:15 Antibody Screen NEGATIVE 06/26/17 10:15 Crossmatch See Detail 06/26/17 10:15 - Physical Exam Vitals and I&O: Vital Signs Temp 96.2 F 07/02/17 08:00 Pulse 87 07/02/17 15:05 Resp 18 07/02/17 12:55 BP 182/94 07/02/17 15:05 Pulse Ox 93 07/02/17 12:55 Intake & Output 07/01/17 07/02/17 07/02/17 18:59 06:59 18:59 Intake Total 1178 1330 50 Output Total 650 750 Balance 528 580 50 Weight (lbs) 57.209 kg 57.805 kg Intake: Intake, IV Amount 1132 1300 50 D5-0.45NS w/40 mEq KCL 1, 830 1000 000 ml @ 75 mls/hr IV . [id number] ED Rx#:[id number] Iron Dextran Complex 100 102 mg In Sodium Chloride 0.9 % 100 ml @ 100 mls/hr IV Q24H ED Rx#:[id number] Piperacillin Sodium/ 100 100 50 Tazobact 3.375 gm In Sodium Chloride 0.9% 50 ml @ 100 mls/hr IV Q6HR ED Rx#:[id number] metroNIDAZOLE 500mg/NS 100 200 100mL 500 mg In 100 ml @ 100 mls/hr IV Q8HR ED Rx #:[id number] Tube Feeding 0 Other 46 30 Output: Gastric Drainage 250 300 Urine 400 450 Other: # Bowel Movements 0 0 Active Medications: Current Medications Acetaminophen (Tylenol) 650 mg PO Q4H PRN PRN Reason: Pain Or Fever above 101 Stop: 08/20/17 19:40 Al Hydrox/Mg Hydrox/Simethicone (Maalox) 30 ml PO Q6H PRN PRN Reason: Dyspepsia Stop: 08/20/17 19:40 Albuterol Sulfate (Albuterol 2.5mg/3ml Neb Ud) 2.5 mg HHN Q2HRT PRN PRN Reason: Shortness of Breath or Wheeze Stop: 08/20/17 19:40 Albuterol/Ipratropium (Duoneb Neb) 3 ml HHN Q6HRT [facility] Stop: 08/30/17 18:59 Last Admin: 07/02/17 12:54 Dose: 3 ml Amlodipine Besylate (Norvasc) 10 mg PO DAILY [facility] Stop: 08/21/17 08:59 Last Admin: 07/02/17 11:13 Dose: Not Given Clonidine HCl (Ydhbqrqm-Qyp-3) 1 patch TD We [facility] Stop: 08/28/17 13:14 Last Admin: 06/29/17 13:30 Dose: 1 patch Enalaprilat (Vasotec) 1.25 mg IVP Q6HR PRN PRN Reason: Sbp Above 170MMHG Stop: 08/22/17 11:59 Last Admin: 07/02/17 10:12 Dose: 1.25 mg Guaifenesin (Robitussin) 200 mg PO Q4HR PRN PRN Reason: Cough or Congestion Stop: 08/20/17 19:40 Haloperidol Decanoate (Haldol Dec) 25 mg IM QMONTH [facility] Stop: 08/23/17 09:59 Last Admin: 06/24/17 09:10 Dose: 25 mg Hydralazine HCl (Apresoline 20 Mg/Ml) 10 mg IV Q6HR PRN PRN Reason: SBP ABOVE 160 Stop: 08/25/17 12:20 Last Admin: 07/02/17 15:05 Dose: 10 mg Piperacillin Sod/Tazobactam (Sod 3.375 gm/ Sodium Chloride) 50 mls @ 100 mls/ hr IV Q6HR [facility] Stop: 07/10/17 05:59 Last Infusion: 07/02/17 14:57 Dose: Infused Metronidazole (Flagyl) 500 mg in 100 mls @ 100 mls/hr IV Q8HR [facility] Stop: 08/29/17 06:14 Last Admin: 07/02/17 15:02 Dose: 100 mls/hr Potassium Chloride/Dextrose/Sod Cl (D5-0.45ns W/40 Meq Kcl) 1,000 mls @ 75 mls/ hr IV .[id number] [facility] Stop: 08/29/17 12:44 Last Admin: 07/02/17 11:11 Dose: 75 mls/hr Insulin Aspart (Novolog) 0 units SUBQ ACHS ED PRN Reason: Protocol Stop: 08/21/17 16:29 Last Admin: 07/02/17 14:56 Dose: Not Given Ipratropium [place] (Atrovent Neb 0.5mg/2.5ml) 0.5 mg IH Q2HRT PRN PRN Reason: Shortness of Breath or Wheeze Stop: 08/20/17 19:40 Lactobacillus Rhamnosus (Culturelle 15b) 1 each PO DAILY [facility] Stop: 08/30/17 08:59 Last Admin: 07/02/17 11:12 Dose: Not Given Mirtazapine (Remeron) 15 mg PO HS ED PRN Reason: Protocol Stop: 08/20/17 20:59 Last Admin: 07/01/17 21:10 Dose: Not Given Miscellaneous (Probiotic Screen) 1 ea MC PRN PRN PRN Reason: PROTOCOL Stop: 08/29/17 11:59 Morphine Sulfate (Morphine) 2 mg IVP Q3H PRN PRN Reason: Pain (Severe) Stop: 08/20/17 19:40 Last Admin: 07/02/17 03:10 Dose: 2 mg Nitroglycerin (Nitrostat) 0.4 mg SL Q5MIN PRN PRN Reason: Chest Pain Stop: 08/20/17 19:40 Ondansetron HCl (Zofran) 4 mg IV Q8H PRN PRN Reason: Nausea / Vomiting Stop: 08/20/17 19:40 Pantoprazole Sodium (Protonix) 40 mg IVP DAILY [facility] Stop: 08/31/17 09:44 Last Admin: 07/02/17 10:11 Dose: 40 mg General: Other (extubated) HEENT: Atraumatic Neck: Supple Cardiovascular: Regular rate Abdomen: Bowel sounds, Soft, Other (dressing in midline no bleeding) Extremities: Other (right arm hematoma) - Procedures Procedures: Procedures Procedure Code Date PARTIAL REMOVAL OF COLON 06450 06/21/17 RESECTION OF RIGHT LARGE INTESTINE, OPEN APPROACH [id number] 06/21/17 Assessment/Plan - Problem List Patient Problems: All Active Problems Altered mental status (Acute) R41.82 Failure to thrive (Acute) [id number] Schizophrenia (Acute) F20.9 Anxiety (Chronic) F41.9 Chronic Kidney Disease (Chronic) Hypertension (Chronic) - Assessment Assessment: * DVT * ANEMIA * CKD * 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 monitor hgb and right arm hematoma no transfusion start ngt feeding follow path dw nursing staff Nutritional Asmnt/Malnutr-PDOC - Dietary Evaluation Malnutrition Findings (Please click <Entered> for more info): Nutritional Asmnt/Malnutrition Start: 06/22/17 18: 04 Text: Status: Complete Freq: Document 06/22/17 18:04 GRISELDA (Rec: 06/22/17 18:15 [id number] [id number]) Nutritional Asmnt/Malnutrition Patient General Information Nutritional Screening High Risk Consult Diagnosis left lower extremity DVT, severe anemia, CHF, HTN Pertinent Medical Hx/Surgical Hx DM, anemia, renal stones, schizophrenia Subjective Information Pt seen lying in bed, confused at time of visit. Spoke with RN Dawood, RN reported pt ate well, consumed 60% of breakfast this morning. Per notes, pt has EGD and colonoscopy scheduled tommorrow. Current Diet Order/ Nutrition Support pureed Pertinent Medications D5-0.9ns, novolog, remeron, kcl Pertinent Labs 06/21 Na 137, K 3.5, Cl 100, BUN 24, Cr 1.3, Glucose 186, AST 10, ALT 6, Alb 2.6 06/22 POC 383 Nutritional Hx/Data Height 1.52 m Height (Calculated Centimeters) 152.4 Current Weight (lbs) 39.009 kg Weight (Calculated Kilograms) 39.0 Weight (Calculated Grams) 91783.9 Amo Body Weight 100 % Amo Body Weight 86 Body Mass Index (BMI) 16.7 Weight Status Underweight GI Symptoms GI Symptoms None Last BM none Difficult in: None Skin Integrity/Comment: intact Current %PO Fair (50-74%) Estimated Nutritional Goals Calories/Kcals/Kg 25-30 based on IBW 45kg Kcals Calculated 5838-5238 Protein g/k-1.2 Protein Calculated 45-54 Fluid: ml 1125-1350ml (1ml/kcal) Nutritional Problem 1. Problem Problem altered nutrition related lab values Etiology hx of DM Signs/Symptoms: Glucose 186, POC 383 Malnutrition Alert Protein-Calorie Malnutrition N/A Is there a minimum of two criteria No selected? Query Text:Check all the applicable criteria. A minimum of two criteria are recommended for diagnosis of either severe or non-severe malnutrition. Intervention/Recommendation Comments 1. Recommend CCHO, low sodium diet for optimal glycemic and BP control. RN notified. 2. Monitor PO intake, wt, labs and skin integrity 3. F/U as high risk in 2-3 days, 06/24-06/25 Expected Outcomes/Goals Expected Outcomes/Goals 1. PO intake to meet at least 75% of nutritional needs. 2. Wt stability, skin to remain intact, labs to improve
--- NOTE | 2017-07-02 16:43 | Internal Medicine Prog Note ---
Internal Medicine Subjective - Subjective Service Date: 07/02/17 Patient seen and examined:: with staff Patient is:: awake, non-interactive Patient Complaints of:: congestion Per staff patient has:: no adverse event, no episodes of fall, tolerating meds Internal Medicine Objective - Results Result Diagrams: 07/02/17 03:41 07/02/17 03:41 Recent Labs: Laboratory Last Values WBC 11.3 Th/cmm (4.8-10.8) H 07/02/17 03:41 RBC 2.88 Mil/cmm (3.80-5.20) L 07/02/17 03:41 Hgb 7.9 gm/dL (12-16) L* 07/02/17 03:41 Hct 24.4 % (41.0-60) L 07/02/17 03:41 MCV 84.6 fl (81-100) 07/02/17 03:41 MCH 27.6 pg (27.0-31.0) 07/02/17 03:41 MCHC Differential 32.6 pg (28.0-36.0) 07/02/17 03:41 RDW 15.5 % (11.5-20.0) 07/02/17 03:41 Plt Count 511 Th/cmm (150-400) H 07/02/17 03:41 MPV 7.6 fl 07/02/17 03:41 Neutrophils % 77.6 % (40.0-80.0) 07/02/17 03:41 Band Neutrophils % 7 % (0-10) 06/30/17 03:52 Lymphocytes % 14.2 % (20.0-50.0) L 07/02/17 03:41 Monocytes % 6.8 % (2.0-10.0) 07/02/17 03:41 Eosinophils % 1.1 % (0.0-5.0) 07/02/17 03:41 Basophils % 0.3 % (0.0-2.0) 07/02/17 03:41 Neutrophils (Manual) 86 % (40-80) H 06/30/17 03:52 Lymphocytes 5 % (20-50) L 06/30/17 03:52 Monocytes 2 % (2-10) 06/30/17 03:52 Platelet Estimate ADEQUATE (NORMAL) 06/30/17 03:52 PT 11.8 SECONDS (9.5-11.5) H 06/28/17 04:10 INR 1.12 (0.5-1.4) 06/28/17 04:10 PTT (Actin FS) 29.1 SECONDS (26.0-38.0) 07/02/17 03:41 D-Dimer 3600 ng/mL (100-400) H 06/21/17 18:20 Specimen Source Arterial 06/28/17 10:55 Sample Site Right Radial 06/28/17 10:55 pH 7.44 (7.35-7.45) 06/28/17 10:55 pCO2 36.0 mmHg (35.0-45.0) 06/28/17 10:55 pO2 100.0 mmHg (80.0-100.0) 06/28/17 10:55 HCO3 25.4 mEq/L (20.0-26.0) 06/28/17 10:55 Base Excess 0.6 mEq/L (-3.0-3.0) 06/28/17 10:55 O2 Saturation 98.0 % (92.0-100.0) 06/28/17 10:55 Rashid Test Positive 06/28/17 10:55 Vent Rate N/A 06/28/17 10:55 Inspired O2 28 06/28/17 10:55 Tidal Volume N/A 06/28/17 10:55 PEEP N/A 06/28/17 10:55 Pressure (ins/psv/peep) N/A 06/28/17 10:55 Critical Value DM 06/28/17 10:55 Sodium 148 mEq/L (136-145) H 07/02/17 03:41 Potassium 3.8 mEq/L (3.5-5.1) 07/02/17 03:41 Chloride 115 mEq/L (98-107) H 07/02/17 03:41 Carbon Dioxide 25.1 mEq/L (21.0-31.0) 07/02/17 03:41 Anion Gap 11.7 (7.0-16.0) 07/02/17 03:41 BUN 17 mg/dL (7-25) 07/02/17 03:41 Creatinine 1.7 mg/dL (0.6-1.2) H 07/02/17 03:41 Est GFR ( Amer) TNP 02/03/18 03:41 Est GFR (Non-Af Amer) TNP 07/02/17 03:41 BUN/Creatinine Ratio 10.0 07/02/17 03:41 Glucose 164 mg/dL (70-105) H 07/02/17 03:41 POC Glucose 153 MG/DL (70 - 105) H 07/02/17 05:44 Hemoglobin A1c % 11.7 % (4.0-6.0) H 06/21/17 18:20 Calcium 8.4 mg/dL (8.6-10.3) L 07/02/17 03:41 Magnesium 1.8 mg/dL (1.9-2.7) L 07/02/17 03:41 Iron 19 ug/dL (27-139) L 06/22/17 05:20 TIBC 176 ug/dL (250-450) L 06/22/17 05:20 Iron Saturation 11 % (15-55) L 06/22/17 05:20 Unsaturated IBC 157 ug/dL (118-369) 06/22/17 05:20 Ferritin 164 ng/mL (15-150) H 06/22/17 05:20 Total Bilirubin 0.2 mg/dL (0.3-1.0) L 06/28/17 04:10 AST 24 U/L (13-39) 06/28/17 04:10 ALT 19 U/L (7-52) 06/28/17 04:10 Alkaline Phosphatase 66 U/L (34-104) 06/28/17 04:10 Ammonia 38 umol/L (16-53) 07/02/17 03:41 Creatine Kinase 39 U/L (30-223) 06/21/17 18:20 Troponin I 0.01 ng/mL (0.01-0.05) 06/21/17 18:20 B-Natriuretic Peptide 187.0 pg/mL (5.0-100.0) H 07/01/17 08:40 Total Protein 5.6 gm/dL (6.0-8.3) L 06/28/17 04:10 Albumin 2.3 gm/dL (3.7-5.3) L 06/28/17 04:10 Globulin 3.3 gm/dL 06/28/17 04:10 Albumin/Globulin Ratio 0.7 (1.0-1.8) L 06/28/17 04:10 Triglycerides 104 mg/dL (<150) 06/21/17 18:20 Cholesterol 129 mg/dL (<200) 06/21/17 18:20 LDL Cholesterol Direct 65 mg/dL (75-193) L 06/21/17 18:20 HDL Cholesterol 43 mg/dL (23-92) 06/21/17 18:20 Vitamin B12 621 pg/mL (232-1245) 06/22/17 05:20 Folic Acid 14.7 ng/mL (>3.0) 06/22/17 05:20 Helicobacter pylori Ab POSITIVE (NEGATIVE) 06/23/17 10:50 Blood Type O POSITIVE 06/26/17 10:15 Antibody Screen NEGATIVE 06/26/17 10:15 Crossmatch See Detail 06/26/17 10:15 - Physical Exam Vitals and I&O: Vital Signs Temp 97.2 F 07/02/17 12:00 Pulse 87 07/02/17 15:05 Resp 18 07/02/17 12:55 BP 182/94 07/02/17 15:05 Pulse Ox 93 07/02/17 12:55 Intake & Output 07/01/17 07/02/17 07/02/17 18:59 06:59 18:59 Intake Total 1178 1330 50 Output Total 650 750 Balance 528 580 50 Weight (lbs) 126 lb 2 oz 127 lb 7 oz Intake: Intake, IV Amount 1132 1300 50 D5-0.45NS w/40 mEq KCL 1, 830 1000 000 ml @ 75 mls/hr IV . [id number] ED Rx#:[id number] Iron Dextran Complex 100 102 mg In Sodium Chloride 0.9 % 100 ml @ 100 mls/hr IV Q24H ED Rx#:[id number] Piperacillin Sodium/ 100 100 50 Tazobact 3.375 gm In Sodium Chloride 0.9% 50 ml @ 100 mls/hr IV Q6HR ED Rx#:[id number] metroNIDAZOLE 500mg/NS 100 200 100mL 500 mg In 100 ml @ 100 mls/hr IV Q8HR ED Rx #:[id number] Tube Feeding 0 Other 46 30 Output: Gastric Drainage 250 300 Urine 400 450 Other: # Bowel Movements 0 0 Active Medications: Current Medications Acetaminophen (Tylenol) 650 mg PO Q4H PRN PRN Reason: Pain Or Fever above 101 Stop: 08/20/17 19:40 Al Hydrox/Mg Hydrox/Simethicone (Maalox) 30 ml PO Q6H PRN PRN Reason: Dyspepsia Stop: 08/20/17 19:40 Albuterol Sulfate (Albuterol 2.5mg/3ml Neb Ud) 2.5 mg HHN Q2HRT PRN PRN Reason: Shortness of Breath or Wheeze Stop: 08/20/17 19:40 Albuterol/Ipratropium (Duoneb Neb) 3 ml HHN Q6HRT [facility] Stop: 08/30/17 18:59 Last Admin: 07/02/17 12:54 Dose: 3 ml Amlodipine Besylate (Norvasc) 10 mg PO DAILY [facility] Stop: 08/21/17 08:59 Last Admin: 07/02/17 11:13 Dose: Not Given Clonidine HCl (Zovseewd-Jij-8) 1 patch TD We [facility] Stop: 08/28/17 13:14 Last Admin: 06/29/17 13:30 Dose: 1 patch Enalaprilat (Vasotec) 1.25 mg IVP Q6HR PRN PRN Reason: Sbp Above 170MMHG Stop: 08/22/17 11:59 Last Admin: 07/02/17 10:12 Dose: 1.25 mg Guaifenesin (Robitussin) 200 mg PO Q4HR PRN PRN Reason: Cough or Congestion Stop: 08/20/17 19:40 Haloperidol Decanoate (Haldol Dec) 25 mg IM QMONTH [facility] Stop: 08/23/17 09:59 Last Admin: 06/24/17 09:10 Dose: 25 mg Hydralazine HCl (Apresoline 20 Mg/Ml) 10 mg IV Q6HR PRN PRN Reason: SBP ABOVE 160 Stop: 08/25/17 12:20 Last Admin: 07/02/17 15:05 Dose: 10 mg Piperacillin Sod/Tazobactam (Sod 3.375 gm/ Sodium Chloride) 50 mls @ 100 mls/ hr IV Q6HR [facility] Stop: 07/10/17 05:59 Last Infusion: 07/02/17 14:57 Dose: Infused Metronidazole (Flagyl) 500 mg in 100 mls @ 100 mls/hr IV Q8HR [facility] Stop: 08/29/17 06:14 Last Admin: 07/02/17 15:02 Dose: 100 mls/hr Potassium Chloride/Dextrose/Sod Cl (D5-0.45ns W/40 Meq Kcl) 1,000 mls @ 75 mls/ hr IV .[id number] [facility] Stop: 08/29/17 12:44 Last Admin: 07/02/17 11:11 Dose: 75 mls/hr Insulin Aspart (Novolog) 0 units SUBQ ACHS ED PRN Reason: Protocol Stop: 08/21/17 16:29 Last Admin: 07/02/17 14:56 Dose: Not Given Ipratropium [place] (Atrovent Neb 0.5mg/2.5ml) 0.5 mg IH Q2HRT PRN PRN Reason: Shortness of Breath or Wheeze Stop: 08/20/17 19:40 Lactobacillus Rhamnosus (Culturelle 15b) 1 each PO DAILY [facility] Stop: 08/30/17 08:59 Last Admin: 07/02/17 11:12 Dose: Not Given Mirtazapine (Remeron) 15 mg PO HS ED PRN Reason: Protocol Stop: 08/20/17 20:59 Last Admin: 07/01/17 21:10 Dose: Not Given Miscellaneous (Probiotic Screen) 1 ea MC PRN PRN PRN Reason: PROTOCOL Stop: 08/29/17 11:59 Morphine Sulfate (Morphine) 2 mg IVP Q3H PRN PRN Reason: Pain (Severe) Stop: 08/20/17 19:40 Last Admin: 07/02/17 03:10 Dose: 2 mg Nitroglycerin (Nitrostat) 0.4 mg SL Q5MIN PRN PRN Reason: Chest Pain Stop: 08/20/17 19:40 Ondansetron HCl (Zofran) 4 mg IV Q8H PRN PRN Reason: Nausea / Vomiting Stop: 08/20/17 19:40 Pantoprazole Sodium (Protonix) 40 mg IVP DAILY [facility] Stop: 08/31/17 09:44 Last Admin: 07/02/17 10:11 Dose: 40 mg General: weak, alert HEENT: NC/AT, PERRLA Neck: Supple Lungs: ronchi Cardiovascular: RRR, Normal S1, Normal S2, without murmur Abdomen: soft, non-tender, non-distended, positive bowel sound Extremities: excoriation Neurological: alert - Procedures Procedures: Procedures Procedure Code Date PARTIAL REMOVAL OF COLON 44192 06/21/17 RESECTION OF RIGHT LARGE INTESTINE, OPEN APPROACH [id number] 06/21/17 Internal Medicine Assmt/Plan - Assessment Assessment: acute dvt cecal mass s/p exploratory lap right right hemicolectomy severe anemia dm2 schizophrenia htn psychosis hypokalemia - Plan Plan: monitor electrolytes follow up labs in am will follow risk and insurance consultant recommendations Nutritional Asmnt/Malnutr-PDOC - Dietary Evaluation Malnutrition Findings (Please click <Entered> for more info): Nutritional Asmnt/Malnutrition Start: 06/22/17 18: 04 Text: Status: Complete Freq: Document 06/22/17 18:04 GRISELDA (Rec: 06/22/17 18:15 LCHARSHAD [email or web address]) Nutritional Asmnt/Malnutrition Patient General Information Nutritional Screening High Risk Consult Diagnosis left lower extremity DVT, severe anemia, CHF, HTN Pertinent Medical Hx/Surgical Hx DM, anemia, renal stones, schizophrenia Subjective Information Pt seen lying in bed, confused at time of visit. Spoke with RN Dawood, RN reported pt ate well, consumed 60% of breakfast this morning. Per notes, pt has EGD and colonoscopy scheduled tommorrow. Current Diet Order/ Nutrition Support pureed Pertinent Medications D5-0.9ns, novolog, remeron, kcl Pertinent Labs 06/21 Na 137, K 3.5, Cl 100, BUN 24, Cr 1.3, Glucose 186, AST 10, ALT 6, Alb 2.6 06/22 POC 383 Nutritional Hx/Data Height 5 ft Height (Calculated Centimeters) 152.4 Current Weight (lbs) 86 lb Weight (Calculated Kilograms) 39.0 Weight (Calculated Grams) 23736.9 [place] Body Weight 100 % [place] Body Weight 86 Body Mass Index (BMI) 16.7 Weight Status Underweight GI Symptoms GI Symptoms None Last BM none Difficult in: None Skin Integrity/Comment: intact Current %PO Fair (50-74%) Estimated Nutritional Goals Calories/Kcals/Kg 25-30 based on IBW 45kg Kcals Calculated 0531-5858 Protein g/k-1.2 Protein Calculated 45-54 Fluid: ml 1125-1350ml (1ml/kcal) Nutritional Problem 1. Problem Problem altered nutrition related lab values Etiology hx of DM Signs/Symptoms: Glucose 186, POC 383 Malnutrition Alert Protein-Calorie Malnutrition N/A Is there a minimum of two criteria No selected? Query Text:Check all the applicable criteria. A minimum of two criteria are recommended for diagnosis of either severe or non-severe malnutrition. Intervention/Recommendation Comments 1. Recommend CCHO, low sodium diet for optimal glycemic and BP control. RN notified. 2. Monitor PO intake, wt, labs and skin integrity 3. F/U as high risk in 2-3 days, 06/24-06/25 Expected Outcomes/Goals Expected Outcomes/Goals 1. PO intake to meet at least 75% of nutritional needs. 2. Wt stability, skin to remain intact, labs to improve
[2017-07-03] MEDS: Albuterol/Ipratropium Neb 3 ML AERS HHN SCH ×4 (02:13→19:02)
[2017-07-03] MEDS: Morphine Sulfate 2 mg/mL 1mL Syr IVP PRN ×4 (02:31→23:55)
[2017-07-03] MEDS: D5-0.45NS w/40 mEq KCL 1,000 ML IV SCH ×2 (02:35→08:14)
[2017-07-03 05:04] LABS: % BASOPHILS 0.1 % (0.0-2.0); % EOSINOPHILS 1.8 % (0.0-5.0); % LYMPHOCYTES 16.2 % (20.0-50.0); % MONOCYTES 7.1 % (2.0-10.0); % NEUTROPHILS 74.8 % (40.0-80.0); EOSINOPHILE ABSOLUTE 0.2 Th/cmm (0.1-0.4); LYMPHOCYTE ABSOLUTE 1.7 Th/cmm (1.5-3.0); MEAN CORPUSCULAR HEMOGLOBIN 26.9 pg (27.0-31.0); MEAN PLATELET VOLUME 7.6 fl; MONOCYTE ABSOLUTE 0.8 Th/cmm (0.3-1.0); NEUTROPHILE ABSOLUTE 7.9 Th/cmm (1.8-8.0); PLATELET COUNT 458 Th/cmm (150-400); RED BLOOD COUNT 2.52 Mil/cmm (3.80-5.20); RED CELL DISTRIBUTION WIDTH 15.4 % (11.5-20.0); WHITE BLOOD COUNT 10.6 Th/cmm (4.8-10.8)
[2017-07-03] MEDS: metroNIDAZOLE 500mg/NS 100mL 500 MG/100 ML BAG IV SCH ×3 (05:04→20:51)
[2017-07-03 05:07] LABS: HEMATOCRIT 21.2 % (41.0-60); HEMOGLOBIN 6.8 gm/dL (12-16)
[2017-07-03 05:16] LABS: ANION GAP 11.4 (7.0-16.0); BUN - UREA NITROGEN 16 mg/dL (7-25); CALCIUM SERUM 8.1 mg/dL (8.6-10.3); CARBON DIOXIDE 25.3 mEq/L (21.0-31.0); CHLORIDE 116 mEq/L (98-107); CREATININE - SERUM 1.6 mg/dL (0.6-1.2); GLUCOSE 140 mg/dL (70-105); POTASSIUM SERUM 3.7 mEq/L (3.5-5.1); SODIUM SERUM 149 mEq/L (136-145)
[2017-07-03] MEDS: INSULIN ASPART, RECOMBINANT 100 UNITS/ML SUBQ SCH ×4 (06:41→21:11)
[2017-07-03] MEDS: Lactobacillus Rhamnosus GG 15 Billion CFU CAP.SPRINK PO SCH (08:22)
--- NOTE | 2017-07-03 08:46 | GI Progress Note ---
Subjective - Review of Systems Subjective: NO GI BLEEDING PER STAFF Objective - Results Result Diagrams: 07/03/17 03:53 07/03/17 03:53 Recent Labs: Laboratory Last Values WBC 10.6 Th/cmm (4.8-10.8) 07/03/17 03:53 RBC 2.52 Mil/cmm (3.80-5.20) L 07/03/17 03:53 Hgb 6.8 gm/dL (12-16) L* 07/03/17 03:53 Hct 21.2 % (41.0-60) L D 07/03/17 03:53 MCV 84.0 fl (81-100) 07/03/17 03:53 MCH 26.9 pg (27.0-31.0) L 07/03/17 03:53 MCHC Differential 32.0 pg (28.0-36.0) 07/03/17 03:53 RDW 15.4 % (11.5-20.0) 07/03/17 03:53 Plt Count 458 Th/cmm (150-400) H 07/03/17 03:53 MPV 7.6 fl 07/03/17 03:53 Neutrophils % 74.8 % (40.0-80.0) 07/03/17 03:53 Band Neutrophils % 7 % (0-10) 06/30/17 03:52 Lymphocytes % 16.2 % (20.0-50.0) L 07/03/17 03:53 Monocytes % 7.1 % (2.0-10.0) 07/03/17 03:53 Eosinophils % 1.8 % (0.0-5.0) 07/03/17 03:53 Basophils % 0.1 % (0.0-2.0) 07/03/17 03:53 Neutrophils (Manual) 86 % (40-80) H 06/30/17 03:52 Lymphocytes 5 % (20-50) L 06/30/17 03:52 Monocytes 2 % (2-10) 06/30/17 03:52 Platelet Estimate ADEQUATE (NORMAL) 06/30/17 03:52 PT 11.8 SECONDS (9.5-11.5) H 06/28/17 04:10 INR 1.12 (0.5-1.4) 06/28/17 04:10 PTT (Actin FS) 29.1 SECONDS (26.0-38.0) 07/02/17 03:41 D-Dimer 3600 ng/mL (100-400) H 06/21/17 18:20 Specimen Source Arterial 06/28/17 10:55 Sample Site Right Radial 06/28/17 10:55 pH 7.44 (7.35-7.45) 06/28/17 10:55 pCO2 36.0 mmHg (35.0-45.0) 06/28/17 10:55 pO2 100.0 mmHg (80.0-100.0) 06/28/17 10:55 HCO3 25.4 mEq/L (20.0-26.0) 06/28/17 10:55 Base Excess 0.6 mEq/L (-3.0-3.0) 06/28/17 10:55 O2 Saturation 98.0 % (92.0-100.0) 06/28/17 10:55 Rashid Test Positive 06/28/17 10:55 Vent Rate N/A 06/28/17 10:55 Inspired O2 28 06/28/17 10:55 Tidal Volume N/A 06/28/17 10:55 PEEP N/A 06/28/17 10:55 Pressure (ins/psv/peep) N/A 06/28/17 10:55 Critical Value DM 06/28/17 10:55 Sodium 149 mEq/L (136-145) H 07/03/17 03:53 Potassium 3.7 mEq/L (3.5-5.1) 07/03/17 03:53 Chloride 116 mEq/L (98-107) H 07/03/17 03:53 Carbon Dioxide 25.3 mEq/L (21.0-31.0) 07/03/17 03:53 Anion Gap 11.4 (7.0-16.0) 07/03/17 03:53 BUN 16 mg/dL (7-25) 07/03/17 03:53 Creatinine 1.6 mg/dL (0.6-1.2) H 07/03/17 03:53 Est GFR ( Amer) TNP 07/03/17 03:53 Est GFR (Non-Af Amer) TNP 07/03/17 03:53 BUN/Creatinine Ratio 10.0 07/03/17 03:53 Glucose 140 mg/dL (70-105) H 07/03/17 03:53 POC Glucose 142 MG/DL (70 - 105) H 07/02/17 21:20 Hemoglobin A1c % 11.7 % (4.0-6.0) H 06/21/17 18:20 Calcium 8.1 mg/dL (8.6-10.3) L 07/03/17 03:53 Magnesium 1.8 mg/dL (1.9-2.7) L 07/02/17 03:41 Iron 19 ug/dL (27-139) L 06/22/17 05:20 TIBC 176 ug/dL (250-450) L 06/22/17 05:20 Iron Saturation 11 % (15-55) L 06/22/17 05:20 Unsaturated IBC 157 ug/dL (118-369) 06/22/17 05:20 Ferritin 164 ng/mL (15-150) H 06/22/17 05:20 Total Bilirubin 0.2 mg/dL (0.3-1.0) L 06/28/17 04:10 AST 24 U/L (13-39) 06/28/17 04:10 ALT 19 U/L (7-52) 06/28/17 04:10 Alkaline Phosphatase 66 U/L (34-104) 06/28/17 04:10 Ammonia 38 umol/L (16-53) 07/02/17 03:41 Creatine Kinase 39 U/L (30-223) 06/21/17 18:20 Troponin I 0.01 ng/mL (0.01-0.05) 06/21/17 18:20 B-Natriuretic Peptide 187.0 pg/mL (5.0-100.0) H 07/01/17 08:40 Total Protein 5.6 gm/dL (6.0-8.3) L 06/28/17 04:10 Albumin 2.3 gm/dL (3.7-5.3) L 06/28/17 04:10 Globulin 3.3 gm/dL 06/28/17 04:10 Albumin/Globulin Ratio 0.7 (1.0-1.8) L 06/28/17 04:10 Triglycerides 104 mg/dL (<150) 06/21/17 18:20 Cholesterol 129 mg/dL (<200) 06/21/17 18:20 LDL Cholesterol Direct 65 mg/dL (75-193) L 06/21/17 18:20 HDL Cholesterol 43 mg/dL (23-92) 06/21/17 18:20 Vitamin B12 621 pg/mL (232-1245) 06/22/17 05:20 Folic Acid 14.7 ng/mL (>3.0) 06/22/17 05:20 Helicobacter pylori Ab POSITIVE (NEGATIVE) 06/23/17 10:50 Blood Type O POSITIVE 06/26/17 10:15 Antibody Screen NEGATIVE 06/26/17 10:15 Crossmatch See Detail 06/26/17 10:15 - Physical Exam Vitals and I&O: Vital Signs Temp 97.1 F 07/03/17 04:00 Pulse 92 07/03/17 08:19 Resp 21 07/03/17 06:30 BP 164/78 07/03/17 08:19 Pulse Ox 98 07/03/17 06:30 Intake & Output 07/02/17 07/03/17 07/03/17 18:59 06:59 18:59 Intake Total 150 1826.25 167.5 Output Total 450 Balance 150 1376.25 167.5 Weight (lbs) 57.606 kg Intake: Intake, IV Amount 150 1606.25 167.5 D5-0.45NS w/40 mEq KCL 1, 1256.25 167.5 000 ml @ 75 mls/hr IV . [id number] ED Rx#:[id number] Piperacillin Sodium/ 50 150 Tazobact 3.375 gm In Sodium Chloride 0.9% 50 ml @ 100 mls/hr IV Q6HR ED Rx#:[id number] metroNIDAZOLE 500mg/NS 100 200 100mL 500 mg In 100 ml @ 100 mls/hr IV Q8HR ED Rx #:[id number] Tube Feeding 120 Other 100 Output: Urine 450 Active Medications: Current Medications Acetaminophen (Tylenol) 650 mg PO Q4H PRN PRN Reason: Pain Or Fever above 101 Stop: 08/20/17 19:40 Al Hydrox/Mg Hydrox/Simethicone (Maalox) 30 ml PO Q6H PRN PRN Reason: Dyspepsia Stop: 08/20/17 19:40 Albuterol Sulfate (Albuterol 2.5mg/3ml Neb Ud) 2.5 mg HHN Q2HRT PRN PRN Reason: Shortness of Breath or Wheeze Stop: 08/20/17 19:40 Albuterol/Ipratropium (Duoneb Neb) 3 ml HHN Q6HRT [facility] Stop: 08/30/17 18:59 Last Admin: 07/03/17 06:32 Dose: 3 ml Amlodipine Besylate (Norvasc) 10 mg PO DAILY [facility] Stop: 08/21/17 08:59 Last Admin: 07/03/17 08:19 Dose: 10 mg Clonidine HCl (Hbfylxyo-Ytx-8) 1 patch TD We [facility] Stop: 08/28/17 13:14 Last Admin: 06/29/17 13:30 Dose: 1 patch Enalaprilat (Vasotec) 1.25 mg IVP Q6HR PRN PRN Reason: Sbp Above 170MMHG Stop: 08/22/17 11:59 Last Admin: 07/02/17 10:12 Dose: 1.25 mg Guaifenesin (Robitussin) 200 mg PO Q4HR PRN PRN Reason: Cough or Congestion Stop: 08/20/17 19:40 Haloperidol Decanoate (Haldol Dec) 25 mg IM QMONTH [facility] Stop: 08/23/17 09:59 Last Admin: 06/24/17 09:10 Dose: 25 mg Hydralazine HCl (Apresoline 20 Mg/Ml) 10 mg IV Q6HR PRN PRN Reason: SBP ABOVE 160 Stop: 08/25/17 12:20 Last Admin: 07/03/17 08:08 Dose: 10 mg Piperacillin Sod/Tazobactam (Sod 3.375 gm/ Sodium Chloride) 50 mls @ 100 mls/ hr IV Q6HR [facility] Stop: 07/10/17 05:59 Last Infusion: 07/03/17 06:49 Dose: Infused Metronidazole (Flagyl) 500 mg in 100 mls @ 100 mls/hr IV Q8HR [facility] Stop: 08/29/17 06:14 Last Infusion: 07/03/17 06:05 Dose: Infused Potassium Chloride/Dextrose/Sod Cl (D5-0.45ns W/40 Meq Kcl) 1,000 mls @ 75 mls/ hr IV .[id number] [facility] Stop: 08/29/17 12:44 Last Admin: 07/03/17 08:14 Dose: 75 mls/hr Insulin Aspart (Novolog) 0 units SUBQ ACHS ED PRN Reason: Protocol Stop: 08/21/17 16:29 Last Admin: 07/03/17 06:41 Dose: Not Given Ipratropium [place] (Atrovent Neb 0.5mg/2.5ml) 0.5 mg IH Q2HRT PRN PRN Reason: Shortness of Breath or Wheeze Stop: 08/20/17 19:40 Lactobacillus Rhamnosus (Culturelle 15b) 1 each PO DAILY [facility] Stop: 08/30/17 08:59 Last Admin: 07/03/17 08:22 Dose: 1 each Mirtazapine (Remeron) 15 mg PO HS ED PRN Reason: Protocol Stop: 08/20/17 20:59 Last Admin: 07/02/17 21:07 Dose: 15 mg Miscellaneous (Probiotic Screen) 1 ea MC PRN PRN PRN Reason: PROTOCOL Stop: 08/29/17 11:59 Morphine Sulfate (Morphine) 2 mg IVP Q3H PRN PRN Reason: Pain (Severe) Stop: 08/20/17 19:40 Last Admin: 07/03/17 08:08 Dose: 2 mg Nitroglycerin (Nitrostat) 0.4 mg SL Q5MIN PRN PRN Reason: Chest Pain Stop: 08/20/17 19:40 Ondansetron HCl (Zofran) 4 mg IV Q8H PRN PRN Reason: Nausea / Vomiting Stop: 08/20/17 19:40 Pantoprazole Sodium (Protonix) 40 mg IVP DAILY [facility] Stop: 08/31/17 09:44 Last Admin: 07/03/17 08:19 Dose: 40 mg General: Other (extubated) HEENT: Atraumatic Neck: Supple Cardiovascular: Regular rate Abdomen: Bowel sounds, Soft, Other (dressing in midline no bleeding) Extremities: Other (right arm hematoma) - Procedures Procedures: Procedures Procedure Code Date PARTIAL REMOVAL OF COLON 88587 06/21/17 RESECTION OF RIGHT LARGE INTESTINE, OPEN APPROACH [id number] 06/21/17 Assessment/Plan - Problem List Patient Problems: All Active Problems Altered mental status (Acute) R41.82 Failure to thrive (Acute) [id number] Schizophrenia (Acute) F20.9 Anxiety (Chronic) F41.9 Chronic Kidney Disease (Chronic) Hypertension (Chronic) - Assessment Assessment: 76 YO FEMALE EGD SHOWED GASTRITIS COLO SHOWED POLYP REG RIGHT HEMICOLECTOMY HGB LOWER 1.PROTONIX 2.FOLLOW H/H; TRANSFUSE 2 UNITS PRBC 3.DIET PER SURGEON
--- NOTE | 2017-07-03 15:41 | Internal Medicine Prog Note ---
Internal Medicine Subjective - Subjective Service Date: 07/03/17 Patient seen and examined:: with staff Patient is:: awake, non-interactive Patient Complaints of:: congestion Per staff patient has:: no adverse event, no episodes of fall, tolerating meds Internal Medicine Objective - Results Result Diagrams: 07/03/17 03:53 07/03/17 03:53 Recent Labs: Laboratory Last Values WBC 10.6 Th/cmm (4.8-10.8) 07/03/17 03:53 RBC 2.52 Mil/cmm (3.80-5.20) L 07/03/17 03:53 Hgb 6.8 gm/dL (12-16) L* 07/03/17 03:53 Hct 21.2 % (41.0-60) L D 07/03/17 03:53 MCV 84.0 fl (81-100) 07/03/17 03:53 MCH 26.9 pg (27.0-31.0) L 07/03/17 03:53 MCHC Differential 32.0 pg (28.0-36.0) 07/03/17 03:53 RDW 15.4 % (11.5-20.0) 07/03/17 03:53 Plt Count 458 Th/cmm (150-400) H 07/03/17 03:53 MPV 7.6 fl 07/03/17 03:53 Neutrophils % 74.8 % (40.0-80.0) 07/03/17 03:53 Band Neutrophils % 7 % (0-10) 06/30/17 03:52 Lymphocytes % 16.2 % (20.0-50.0) L 07/03/17 03:53 Monocytes % 7.1 % (2.0-10.0) 07/03/17 03:53 Eosinophils % 1.8 % (0.0-5.0) 07/03/17 03:53 Basophils % 0.1 % (0.0-2.0) 07/03/17 03:53 Neutrophils (Manual) 86 % (40-80) H 06/30/17 03:52 Lymphocytes 5 % (20-50) L 06/30/17 03:52 Monocytes 2 % (2-10) 06/30/17 03:52 Platelet Estimate ADEQUATE (NORMAL) 06/30/17 03:52 PT 11.8 SECONDS (9.5-11.5) H 06/28/17 04:10 INR 1.12 (0.5-1.4) 06/28/17 04:10 PTT (Actin FS) 29.1 SECONDS (26.0-38.0) 07/02/17 03:41 D-Dimer 3600 ng/mL (100-400) H 06/21/17 18:20 Specimen Source Arterial 06/28/17 10:55 Sample Site Right Radial 06/28/17 10:55 pH 7.44 (7.35-7.45) 06/28/17 10:55 pCO2 36.0 mmHg (35.0-45.0) 06/28/17 10:55 pO2 100.0 mmHg (80.0-100.0) 06/28/17 10:55 HCO3 25.4 mEq/L (20.0-26.0) 06/28/17 10:55 Base Excess 0.6 mEq/L (-3.0-3.0) 06/28/17 10:55 O2 Saturation 98.0 % (92.0-100.0) 06/28/17 10:55 Rashid Test Positive 06/28/17 10:55 Vent Rate N/A 06/28/17 10:55 Inspired O2 28 06/28/17 10:55 Tidal Volume N/A 06/28/17 10:55 PEEP N/A 06/28/17 10:55 Pressure (ins/psv/peep) N/A 06/28/17 10:55 Critical Value DM 06/28/17 10:55 Sodium 149 mEq/L (136-145) H 07/03/17 03:53 Potassium 3.7 mEq/L (3.5-5.1) 07/03/17 03:53 Chloride 116 mEq/L (98-107) H 07/03/17 03:53 Carbon Dioxide 25.3 mEq/L (21.0-31.0) 07/03/17 03:53 Anion Gap 11.4 (7.0-16.0) 07/03/17 03:53 BUN 16 mg/dL (7-25) 07/03/17 03:53 Creatinine 1.6 mg/dL (0.6-1.2) H 07/03/17 03:53 Est GFR ( Amer) TNP 07/03/17 03:53 Est GFR (Non-Af Amer) TNP 07/03/17 03:53 BUN/Creatinine Ratio 10.0 07/03/17 03:53 Glucose 140 mg/dL (70-105) H 07/03/17 03:53 POC Glucose 171 MG/DL (70 - 105) H 07/03/17 12:48 Hemoglobin A1c % 11.7 % (4.0-6.0) H 06/21/17 18:20 Calcium 8.1 mg/dL (8.6-10.3) L 07/03/17 03:53 Magnesium 1.8 mg/dL (1.9-2.7) L 07/02/17 03:41 Iron 19 ug/dL (27-139) L 06/22/17 05:20 TIBC 176 ug/dL (250-450) L 06/22/17 05:20 Iron Saturation 11 % (15-55) L 06/22/17 05:20 Unsaturated IBC 157 ug/dL (118-369) 06/22/17 05:20 Ferritin 164 ng/mL (15-150) H 06/22/17 05:20 Total Bilirubin 0.2 mg/dL (0.3-1.0) L 06/28/17 04:10 AST 24 U/L (13-39) 06/28/17 04:10 ALT 19 U/L (7-52) 06/28/17 04:10 Alkaline Phosphatase 66 U/L (34-104) 06/28/17 04:10 Ammonia 38 umol/L (16-53) 07/02/17 03:41 Creatine Kinase 39 U/L (30-223) 06/21/17 18:20 Troponin I 0.01 ng/mL (0.01-0.05) 06/21/17 18:20 B-Natriuretic Peptide 187.0 pg/mL (5.0-100.0) H 07/01/17 08:40 Total Protein 5.6 gm/dL (6.0-8.3) L 06/28/17 04:10 Albumin 2.3 gm/dL (3.7-5.3) L 06/28/17 04:10 Globulin 3.3 gm/dL 06/28/17 04:10 Albumin/Globulin Ratio 0.7 (1.0-1.8) L 06/28/17 04:10 Triglycerides 104 mg/dL (<150) 06/21/17 18:20 Cholesterol 129 mg/dL (<200) 06/21/17 18:20 LDL Cholesterol Direct 65 mg/dL (75-193) L 06/21/17 18:20 HDL Cholesterol 43 mg/dL (23-92) 06/21/17 18:20 Vitamin B12 621 pg/mL (232-1245) 06/22/17 05:20 Folic Acid 14.7 ng/mL (>3.0) 06/22/17 05:20 Helicobacter pylori Ab POSITIVE (NEGATIVE) 06/23/17 10:50 Blood Type O POSITIVE 07/03/17 08:38 Antibody Screen NEGATIVE 07/03/17 08:38 Crossmatch See Detail 07/03/17 08:38 - Physical Exam Vitals and I&O: Vital Signs Temp 97.8 F 07/03/17 14:00 Pulse 86 07/03/17 14:00 Resp 16 07/03/17 14:00 BP 139/73 07/03/17 14:00 Pulse Ox 99 07/03/17 14:00 Intake & Output 07/02/17 07/03/17 07/03/17 18:59 06:59 18:59 Intake Total 150 1826.25 317.5 Output Total 450 Balance 150 1376.25 317.5 Weight (lbs) 127 lb Intake: Intake, IV Amount 150 1606.25 317.5 D5-0.45NS w/40 mEq KCL 1, 1256.25 167.5 000 ml @ 75 mls/hr IV . [id number] ED Rx#:[id number] Piperacillin Sodium/ 50 150 50 Tazobact 3.375 gm In Sodium Chloride 0.9% 50 ml @ 100 mls/hr IV Q6HR ED Rx#:[id number] metroNIDAZOLE 500mg/NS 100 200 100 100mL 500 mg In 100 ml @ 100 mls/hr IV Q8HR ED Rx #:[id number] Tube Feeding 120 Other 100 Output: Urine 450 Active Medications: Current Medications Acetaminophen (Tylenol) 650 mg PO Q4H PRN PRN Reason: Pain Or Fever above 101 Stop: 08/20/17 19:40 Al Hydrox/Mg Hydrox/Simethicone (Maalox) 30 ml PO Q6H PRN PRN Reason: Dyspepsia Stop: 08/20/17 19:40 Albuterol Sulfate (Albuterol 2.5mg/3ml Neb Ud) 2.5 mg HHN Q2HRT PRN PRN Reason: Shortness of Breath or Wheeze Stop: 08/20/17 19:40 Albuterol/Ipratropium (Duoneb Neb) 3 ml HHN Q6HRT [facility] Stop: 08/30/17 18:59 Last Admin: 07/03/17 12:47 Dose: 3 ml Amlodipine Besylate (Norvasc) 10 mg PO DAILY [facility] Stop: 08/21/17 08:59 Last Admin: 07/03/17 08:19 Dose: 10 mg Clonidine HCl (Bqbrzzgw-Fjc-3) 1 patch TD We [facility] Stop: 08/28/17 13:14 Last Admin: 06/29/17 13:30 Dose: 1 patch Enalaprilat (Vasotec) 1.25 mg IVP Q6HR PRN PRN Reason: Sbp Above 170MMHG Stop: 08/22/17 11:59 Last Admin: 07/02/17 10:12 Dose: 1.25 mg Guaifenesin (Robitussin) 200 mg PO Q4HR PRN PRN Reason: Cough or Congestion Stop: 08/20/17 19:40 Haloperidol Decanoate (Haldol Dec) 25 mg IM QMONTH [facility] Stop: 08/23/17 09:59 Last Admin: 06/24/17 09:10 Dose: 25 mg Hydralazine HCl (Apresoline 20 Mg/Ml) 10 mg IV Q6HR PRN PRN Reason: SBP ABOVE 160 Stop: 08/25/17 12:20 Last Admin: 07/03/17 08:08 Dose: 10 mg Piperacillin Sod/Tazobactam (Sod 3.375 gm/ Sodium Chloride) 50 mls @ 100 mls/ hr IV Q6HR [facility] Stop: 07/10/17 05:59 Last Infusion: 07/03/17 12:05 Dose: Infused Metronidazole (Flagyl) 500 mg in 100 mls @ 100 mls/hr IV Q8HR [facility] Stop: 08/29/17 06:14 Last Infusion: 07/03/17 13:15 Dose: Infused Potassium Chloride/Dextrose/Sod Cl (D5-0.45ns W/40 Meq Kcl) 1,000 mls @ 75 mls/ hr IV .[id number] [facility] Stop: 08/29/17 12:44 Last Admin: 07/03/17 08:14 Dose: 75 mls/hr Insulin Aspart (Novolog) 0 units SUBQ ACHS ED PRN Reason: Protocol Stop: 08/21/17 16:29 Last Admin: 07/03/17 12:49 Dose: Not Given Ipratropium [place] (Atrovent Neb 0.5mg/2.5ml) 0.5 mg IH Q2HRT PRN PRN Reason: Shortness of Breath or Wheeze Stop: 08/20/17 19:40 Lactobacillus Rhamnosus (Culturelle 15b) 1 each PO DAILY [facility] Stop: 08/30/17 08:59 Last Admin: 07/03/17 08:22 Dose: 1 each Mirtazapine (Remeron) 15 mg PO HS ED PRN Reason: Protocol Stop: 08/20/17 20:59 Last Admin: 07/02/17 21:07 Dose: 15 mg Miscellaneous (Probiotic Screen) 1 ea MC PRN PRN PRN Reason: PROTOCOL Stop: 08/29/17 11:59 Morphine Sulfate (Morphine) 2 mg IVP Q3H PRN PRN Reason: Pain (Severe) Stop: 08/20/17 19:40 Last Admin: 07/03/17 08:08 Dose: 2 mg Nitroglycerin (Nitrostat) 0.4 mg SL Q5MIN PRN PRN Reason: Chest Pain Stop: 08/20/17 19:40 Ondansetron HCl (Zofran) 4 mg IV Q8H PRN PRN Reason: Nausea / Vomiting Stop: 08/20/17 19:40 Pantoprazole Sodium (Protonix) 40 mg IVP DAILY [facility] Stop: 08/31/17 09:44 Last Admin: 07/03/17 08:19 Dose: 40 mg General: weak, alert HEENT: NC/AT, PERRLA Neck: Supple Lungs: ronchi Cardiovascular: RRR, Normal S1, Normal S2, without murmur Abdomen: soft, non-tender, non-distended, positive bowel sound Extremities: excoriation Neurological: alert - Procedures Procedures: Procedures Procedure Code Date PARTIAL REMOVAL OF COLON 69114 06/21/17 RESECTION OF RIGHT LARGE INTESTINE, OPEN APPROACH [id number] 06/21/17 Internal Medicine Assmt/Plan - Assessment Assessment: acute dvt cecal mass s/p exploratory lap right right hemicolectomy severe anemia dm2 schizophrenia htn psychosis hypokalemia - Plan Plan: monitor electrolytes follow up labs in am will follow pension consultant recommendations Nutritional Asmnt/Malnutr-PDOC - Dietary Evaluation Malnutrition Findings (Please click <Entered> for more info): Nutritional Asmnt/Malnutrition Start: 06/22/17 18: 04 Text: Status: Complete Freq: Document 06/22/17 18:04 JENY (Rec: 06/22/17 18:15 LCHEN [email or web address]) Nutritional Asmnt/Malnutrition Patient General Information Nutritional Screening High Risk Consult Diagnosis left lower extremity DVT, severe anemia, CHF, HTN Pertinent Medical Hx/Surgical Hx DM, anemia, renal stones, schizophrenia Subjective Information Pt seen lying in bed, confused at time of visit. Spoke with LULÚ Seay, RN reported pt ate well, consumed 60% of breakfast this morning. Per notes, pt has EGD and colonoscopy scheduled tommorrow. Current Diet Order/ Nutrition Support pureed Pertinent Medications D5-0.9ns, novolog, remeron, kcl Pertinent Labs 06/21 Na 137, K 3.5, Cl 100, BUN 24, Cr 1.3, Glucose 186, AST 10, ALT 6, Alb 2.6 06/22 POC 383 Nutritional Hx/Data Height 5 ft Height (Calculated Centimeters) 152.4 Current Weight (lbs) 86 lb Weight (Calculated Kilograms) 39.0 Weight (Calculated Grams) 43094.9 [place] Body Weight 100 % [place] Body Weight 86 Body Mass Index (BMI) 16.7 Weight Status Underweight GI Symptoms GI Symptoms None Last BM none Difficult in: None Skin Integrity/Comment: intact Current %PO Fair (50-74%) Estimated Nutritional Goals Calories/Kcals/Kg 25-30 based on IBW 45kg Kcals Calculated 6459-0198 Protein g/k-1.2 Protein Calculated 45-54 Fluid: ml 1125-1350ml (1ml/kcal) Nutritional Problem 1. Problem Problem altered nutrition related lab values Etiology hx of DM Signs/Symptoms: Glucose 186, POC 383 Malnutrition Alert Protein-Calorie Malnutrition N/A Is there a minimum of two criteria No selected? Query Text:Check all the applicable criteria. A minimum of two criteria are recommended for diagnosis of either severe or non-severe malnutrition. Intervention/Recommendation Comments 1. Recommend CCHO, low sodium diet for optimal glycemic and BP control. RN notified. 2. Monitor PO intake, wt, labs and skin integrity 3. F/U as high risk in 2-3 days, 06/24-06/25 Expected Outcomes/Goals Expected Outcomes/Goals 1. PO intake to meet at least 75% of nutritional needs. 2. Wt stability, skin to remain intact, labs to improve
[2017-07-04] MEDS: Albuterol/Ipratropium Neb 3 ML AERS HHN SCH ×4 (01:44→19:03)
[2017-07-04 04:46] LABS: MEAN CELL VOLUME 83.8 fl (81-100); MEAN CORPUSCULAR HEMOGLOBIN 27.7 pg (27.0-31.0); MEAN CORPUSCULAR HGB CONC 33.1 pg (28.0-36.0); MEAN PLATELET VOLUME 7.3 fl; PLATELET COUNT 383 Th/cmm (150-400); RED BLOOD COUNT 3.77 Mil/cmm (3.80-5.20); RED CELL DISTRIBUTION WIDTH 15.2 % (11.5-20.0)
[2017-07-04] MEDS: metroNIDAZOLE 500mg/NS 100mL 500 MG/100 ML BAG IV SCH ×3 (04:51→20:37)
[2017-07-04] MEDS: D5-0.45NS w/40 mEq KCL 1,000 ML IV SCH ×3 (04:53→21:29)
[2017-07-04 04:54] LABS: WHITE BLOOD COUNT 12.7 Th/cmm (4.8-10.8)
[2017-07-04 04:55] LABS: HEMATOCRIT 31.6 % (41.0-60); HEMOGLOBIN 10.5 gm/dL (12-16); MANUAL DIFF REQUIRED? YES
[2017-07-04 05:05] LABS: ALB/GLOB RATIO 0.7 (1.0-1.8); ALKALINE PHOSPHATASE 95 U/L (34-104); ANION GAP 10.8 (7.0-16.0); BILIRUBIN,TOTAL 0.5 mg/dL (0.3-1.0); BUN - UREA NITROGEN 17 mg/dL (7-25); CALCIUM SERUM 7.7 mg/dL (8.6-10.3); CHLORIDE 112 mEq/L (98-107); CREATININE - SERUM 1.6 mg/dL (0.6-1.2); GLUCOSE 168 mg/dL (70-105); POTASSIUM SERUM 3.8 mEq/L (3.5-5.1); SGOT 16 U/L (13-39); SGPT/ALT 8 U/L (7-52); SODIUM SERUM 142 mEq/L (136-145)
[2017-07-04 05:18] LABS: BAND NEUTROPHILE 2 % (0-10); EOSINOPHIL 4 % (0-5); HYPOCHROMIA 1+; LYMPHOCYTE 12 % (20-50); MONOCYTE 2 % (2-10); NEUTROPHILS 80 % (40-80); PLATELET ESTIMATE ADEQUATE (NORMAL); POLYCHROMASIA 1+; SCHISTOCYTES 1+; TOTAL CELLS COUNTED 100
[2017-07-04] MEDS: INSULIN ASPART, RECOMBINANT 100 UNITS/ML SUBQ SCH ×4 (08:54→23:55)
[2017-07-04] MEDS: Lactobacillus Rhamnosus GG 15 Billion CFU CAP.SPRINK PO SCH (08:55)
[2017-07-04] MEDS: Morphine Sulfate 2 mg/mL 1mL Syr IVP PRN ×3 (09:17→20:36)
--- NOTE | 2017-07-04 11:06 | General Progress Note ---
Subjective - Review of Systems Service Date: 07/04/17 Objective - Results Result Diagrams: 07/04/17 04:30 07/04/17 04:30 Recent Labs: Laboratory Last Values WBC 12.7 Th/cmm (4.8-10.8) H 07/04/17 04:30 RBC 3.77 Mil/cmm (3.80-5.20) L 07/04/17 04:30 Hgb 10.5 gm/dL (12-16) L D 07/04/17 04:30 Hct 31.6 % (41.0-60) L D 07/04/17 04:30 MCV 83.8 fl (81-100) 07/04/17 04:30 MCH 27.7 pg (27.0-31.0) 07/04/17 04:30 MCHC Differential 33.1 pg (28.0-36.0) 07/04/17 04:30 RDW 15.2 % (11.5-20.0) 07/04/17 04:30 Plt Count 383 Th/cmm (150-400) 07/04/17 04:30 MPV 7.3 fl 07/04/17 04:30 Neutrophils % 74.8 % (40.0-80.0) 07/03/17 03:53 Band Neutrophils % 2 % (0-10) 07/04/17 04:30 Lymphocytes % 16.2 % (20.0-50.0) L 07/03/17 03:53 Monocytes % 7.1 % (2.0-10.0) 07/03/17 03:53 Eosinophils % 1.8 % (0.0-5.0) 07/03/17 03:53 Basophils % 0.1 % (0.0-2.0) 07/03/17 03:53 Neutrophils (Manual) 80 % (40-80) 07/04/17 04:30 Lymphocytes 12 % (20-50) L 07/04/17 04:30 Monocytes 2 % (2-10) 07/04/17 04:30 Eosinophils 4 % (0-5) 07/04/17 04:30 Hypochromia 1+ 07/04/17 04:30 Platelet Estimate ADEQUATE (NORMAL) 07/04/17 04:30 Polychromasia 1+ 07/04/17 04:30 Schistocytes 1+ 07/04/17 04:30 PT 11.8 SECONDS (9.5-11.5) H 06/28/17 04:10 INR 1.12 (0.5-1.4) 06/28/17 04:10 PTT (Actin FS) 28.0 SECONDS (26.0-38.0) 07/04/17 04:30 D-Dimer 3600 ng/mL (100-400) H 06/21/17 18:20 Specimen Source Arterial 06/28/17 10:55 Sample Site Right Radial 06/28/17 10:55 pH 7.44 (7.35-7.45) 06/28/17 10:55 pCO2 36.0 mmHg (35.0-45.0) 06/28/17 10:55 pO2 100.0 mmHg (80.0-100.0) 06/28/17 10:55 HCO3 25.4 mEq/L (20.0-26.0) 06/28/17 10:55 Base Excess 0.6 mEq/L (-3.0-3.0) 06/28/17 10:55 O2 Saturation 98.0 % (92.0-100.0) 06/28/17 10:55 Rashid Test Positive 06/28/17 10:55 Vent Rate N/A 06/28/17 10:55 Inspired O2 28 06/28/17 10:55 Tidal Volume N/A 06/28/17 10:55 PEEP N/A 06/28/17 10:55 Pressure (ins/psv/peep) N/A 06/28/17 10:55 Critical Value DM 06/28/17 10:55 Sodium 142 mEq/L (136-145) 07/04/17 04:30 Potassium 3.8 mEq/L (3.5-5.1) 07/04/17 04:30 Chloride 112 mEq/L (98-107) H 07/04/17 04:30 Carbon Dioxide 23.0 mEq/L (21.0-31.0) 07/04/17 04:30 Anion Gap 10.8 (7.0-16.0) 07/04/17 04:30 BUN 17 mg/dL (7-25) 07/04/17 04:30 Creatinine 1.6 mg/dL (0.6-1.2) H 07/04/17 04:30 Est GFR ( Amer) TNP 07/04/17 04:30 Est GFR (Non-Af Amer) TNP 07/04/17 04:30 BUN/Creatinine Ratio 10.6 07/04/17 04:30 Glucose 168 mg/dL (70-105) H 07/04/17 04:30 POC Glucose 134 MG/DL (70 - 105) H 07/04/17 08:43 Hemoglobin A1c % 11.7 % (4.0-6.0) H 06/21/17 18:20 Calcium 7.7 mg/dL (8.6-10.3) L 07/04/17 04:30 Magnesium 1.8 mg/dL (1.9-2.7) L 07/02/17 03:41 Iron 19 ug/dL (27-139) L 06/22/17 05:20 TIBC 176 ug/dL (250-450) L 06/22/17 05:20 Iron Saturation 11 % (15-55) L 06/22/17 05:20 Unsaturated IBC 157 ug/dL (118-369) 06/22/17 05:20 Ferritin 164 ng/mL (15-150) H 06/22/17 05:20 Total Bilirubin 0.5 mg/dL (0.3-1.0) 07/04/17 04:30 AST 16 U/L (13-39) 07/04/17 04:30 ALT 8 U/L (7-52) 07/04/17 04:30 Alkaline Phosphatase 95 U/L (34-104) 07/04/17 04:30 Ammonia 38 umol/L (16-53) 07/02/17 03:41 Creatine Kinase 39 U/L (30-223) 06/21/17 18:20 Troponin I 0.01 ng/mL (0.01-0.05) 06/21/17 18:20 B-Natriuretic Peptide 187.0 pg/mL (5.0-100.0) H 07/01/17 08:40 Total Protein 5.0 gm/dL (6.0-8.3) L 07/04/17 04:30 Albumin 2.0 gm/dL (3.7-5.3) L 07/04/17 04:30 Globulin 3.0 gm/dL 07/04/17 04:30 Albumin/Globulin Ratio 0.7 (1.0-1.8) L 07/04/17 04:30 Triglycerides 104 mg/dL (<150) 06/21/17 18:20 Cholesterol 129 mg/dL (<200) 06/21/17 18:20 LDL Cholesterol Direct 65 mg/dL (75-193) L 06/21/17 18:20 HDL Cholesterol 43 mg/dL (23-92) 06/21/17 18:20 Vitamin B12 621 pg/mL (232-1245) 06/22/17 05:20 Folic Acid 14.7 ng/mL (>3.0) 06/22/17 05:20 Helicobacter pylori Ab POSITIVE (NEGATIVE) 06/23/17 10:50 Blood Type O POSITIVE 07/03/17 08:38 Antibody Screen NEGATIVE 07/03/17 08:38 Crossmatch See Detail 07/03/17 08:38 - Physical Exam Vitals and I&O: Vital Signs Temp 97.2 F 07/04/17 04:00 Pulse 84 07/04/17 08:54 Resp 12 07/04/17 06:37 BP 175/82 07/04/17 08:54 Pulse Ox 99 07/04/17 06:37 Intake & Output 07/03/17 07/04/17 07/04/17 18:59 06:59 18:59 Intake Total 1577.5 1450 Output Total 800 700 Balance 777.5 750 Weight (lbs) 57.351 kg 57.153 kg Intake: Intake, IV Amount 367.5 1150 D5-0.45NS w/40 mEq KCL 1, 167.5 1000 000 ml @ 75 mls/hr IV . [id number] ED Rx#:[id number] Piperacillin Sodium/ 100 50 Tazobact 3.375 gm In Sodium Chloride 0.9% 50 ml @ 100 mls/hr IV Q6HR ED Rx#:[id number] metroNIDAZOLE 500mg/NS 100 100 100mL 500 mg In 100 ml @ 100 mls/hr IV Q8HR ED Rx #:[id number] Tube Feeding 190 300 Blood Product 500 Other 520 Output: Urine 800 700 Other: # Bowel Movements 0 0 Active Medications: Current Medications Acetaminophen (Tylenol) 650 mg PO Q4H PRN PRN Reason: Pain Or Fever above 101 Stop: 08/20/17 19:40 Al Hydrox/Mg Hydrox/Simethicone (Maalox) 30 ml PO Q6H PRN PRN Reason: Dyspepsia Stop: 08/20/17 19:40 Albuterol Sulfate (Albuterol 2.5mg/3ml Neb Ud) 2.5 mg HHN Q2HRT PRN PRN Reason: Shortness of Breath or Wheeze Stop: 08/20/17 19:40 Albuterol/Ipratropium (Duoneb Neb) 3 ml HHN Q6HRT [facility] Stop: 08/30/17 18:59 Last Admin: 07/04/17 06:35 Dose: 3 ml Amlodipine Besylate (Norvasc) 10 mg PO DAILY [facility] Stop: 08/21/17 08:59 Last Admin: 07/04/17 08:54 Dose: 10 mg Clonidine HCl (Xbybfohx-Tgn-1) 1 patch TD We [facility] Stop: 08/28/17 13:14 Last Admin: 06/29/17 13:30 Dose: 1 patch Enalaprilat (Vasotec) 1.25 mg IVP Q6HR PRN PRN Reason: Sbp Above 170MMHG Stop: 08/22/17 11:59 Last Admin: 07/04/17 05:49 Dose: 1.25 mg Guaifenesin (Robitussin) 200 mg PO Q4HR PRN PRN Reason: Cough or Congestion Stop: 08/20/17 19:40 Haloperidol Decanoate (Haldol Dec) 25 mg IM QMONTH [facility] Stop: 08/23/17 09:59 Last Admin: 06/24/17 09:10 Dose: 25 mg Hydralazine HCl (Apresoline 20 Mg/Ml) 10 mg IV Q6HR PRN PRN Reason: SBP ABOVE 160 Stop: 08/25/17 12:20 Last Admin: 07/04/17 01:46 Dose: 10 mg Piperacillin Sod/Tazobactam (Sod 3.375 gm/ Sodium Chloride) 50 mls @ 100 mls/ hr IV Q6HR [facility] Stop: 07/10/17 05:59 Last Admin: 07/04/17 05:44 Dose: 100 mls/hr Metronidazole (Flagyl) 500 mg in 100 mls @ 100 mls/hr IV Q8HR [facility] Stop: 08/29/17 06:14 Last Admin: 07/04/17 04:51 Dose: 100 mls/hr Potassium Chloride/Dextrose/Sod Cl (D5-0.45ns W/40 Meq Kcl) 1,000 mls @ 75 mls/ hr IV .[id number] [facility] Stop: 08/29/17 12:44 Last Admin: 07/04/17 04:53 Dose: 75 mls/hr Insulin Aspart (Novolog) 0 units SUBQ ACHS ED PRN Reason: Protocol Stop: 08/21/17 16:29 Last Admin: 07/04/17 08:54 Dose: Not Given Ipratropium [place] (Atrovent Neb 0.5mg/2.5ml) 0.5 mg IH Q2HRT PRN PRN Reason: Shortness of Breath or Wheeze Stop: 08/20/17 19:40 Lactobacillus Rhamnosus (Culturelle 15b) 1 each PO DAILY [facility] Stop: 08/30/17 08:59 Last Admin: 07/04/17 08:55 Dose: 1 each Mirtazapine (Remeron) 15 mg PO HS ED PRN Reason: Protocol Stop: 08/20/17 20:59 Last Admin: 07/03/17 20:50 Dose: 15 mg Miscellaneous (Probiotic Screen) 1 ea MC PRN PRN PRN Reason: PROTOCOL Stop: 08/29/17 11:59 Morphine Sulfate (Morphine) 2 mg IVP Q3H PRN PRN Reason: Pain (Severe) Stop: 08/20/17 19:40 Last Admin: 07/04/17 09:17 Dose: 2 mg Nitroglycerin (Nitrostat) 0.4 mg SL Q5MIN PRN PRN Reason: Chest Pain Stop: 08/20/17 19:40 Ondansetron HCl (Zofran) 4 mg IV Q8H PRN PRN Reason: Nausea / Vomiting Stop: 08/20/17 19:40 Pantoprazole Sodium (Protonix) 40 mg IVP DAILY [facility] Stop: 08/31/17 09:44 Last Admin: 07/04/17 08:55 Dose: 40 mg General: Other (extubated) HEENT: Atraumatic Neck: Supple Cardiovascular: Regular rate Abdomen: Bowel sounds, Soft, Other (dressing in midline no bleeding) Extremities: Other (right arm hematoma improved) - Procedures Procedures: Procedures Procedure Code Date PARTIAL REMOVAL OF COLON 84875 06/21/17 RESECTION OF RIGHT LARGE INTESTINE, OPEN APPROACH [id number] 06/21/17 Assessment/Plan - Problem List Patient Problems: All Active Problems Altered mental status (Acute) R41.82 Failure to thrive (Acute) [id number] Schizophrenia (Acute) F20.9 Anxiety (Chronic) F41.9 Chronic Kidney Disease (Chronic) Hypertension (Chronic) - Assessment Assessment: * DVT * ANEMIA * CKD * 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 discussed with pathologist. no invasion dw nursing staff Nutritional Asmnt/Malnutr-PDOC - Dietary Evaluation Malnutrition Findings (Please click <Entered> for more info): Nutritional Asmnt/Malnutrition Start: 06/22/17 18: 04 Text: Status: Complete Freq: Document 06/22/17 18:04 JENY (Rec: 06/22/17 18:15 LCHENG [email or web address]) Nutritional Asmnt/Malnutrition Patient General Information Nutritional Screening High Risk Consult Diagnosis left lower extremity DVT, severe anemia, CHF, HTN Pertinent Medical Hx/Surgical Hx DM, anemia, renal stones, schizophrenia Subjective Information Pt seen lying in bed, confused at time of visit. Spoke with LULÚ Seay RN reported pt ate well, consumed 60% of breakfast this morning. Per notes, pt has EGD and colonoscopy scheduled tommorrow. Current Diet Order/ Nutrition Support pureed Pertinent Medications D5-0.9ns, novolog, remeron, kcl Pertinent Labs 06/21 Na 137, K 3.5, Cl 100, BUN 24, Cr 1.3, Glucose 186, AST 10, ALT 6, Alb 2.6 06/22 POC 383 Nutritional Hx/Data Height 1.52 m Height (Calculated Centimeters) 152.4 Current Weight (lbs) 39.009 kg Weight (Calculated Kilograms) 39.0 Weight (Calculated Grams) 88522.9 [place] Body Weight 100 % [place] Body Weight 86 Body Mass Index (BMI) 16.7 Weight Status Underweight GI Symptoms GI Symptoms None Last BM none Difficult in: None Skin Integrity/Comment: intact Current %PO Fair (50-74%) Estimated Nutritional Goals Calories/Kcals/Kg 25-30 based on IBW 45kg Kcals Calculated 6585-6754 Protein g/k-1.2 Protein Calculated 45-54 Fluid: ml 1125-1350ml (1ml/kcal) Nutritional Problem 1. Problem Problem altered nutrition related lab values Etiology hx of DM Signs/Symptoms: Glucose 186, POC 383 Malnutrition Alert Protein-Calorie Malnutrition N/A Is there a minimum of two criteria No selected? Query Text:Check all the applicable criteria. A minimum of two criteria are recommended for diagnosis of either severe or non-severe malnutrition. Intervention/Recommendation Comments 1. Recommend CCHO, low sodium diet for optimal glycemic and BP control. RN notified. 2. Monitor PO intake, wt, labs and skin integrity 3. F/U as high risk in 2-3 days, 06/24-06/25 Expected Outcomes/Goals Expected Outcomes/Goals 1. PO intake to meet at least 75% of nutritional needs. 2. Wt stability, skin to remain intact, labs to improve
[2017-07-04] MEDS ORDERED: Heparin 25,000 Units In D5W 25,000 UNITS/250 ML BAG IV PRN (11:24)
--- NOTE | 2017-07-04 13:08 | Internal Medicine Prog Note ---
Internal Medicine Subjective - Subjective Service Date: 07/04/17 Patient seen and examined:: with staff Patient is:: awake, non-interactive Patient Complaints of:: congestion Per staff patient has:: no adverse event, no episodes of fall, tolerating meds Internal Medicine Objective - Results Result Diagrams: 07/04/17 04:30 07/04/17 04:30 Recent Labs: Laboratory Last Values WBC 12.7 Th/cmm (4.8-10.8) H 07/04/17 04:30 RBC 3.77 Mil/cmm (3.80-5.20) L 07/04/17 04:30 Hgb 10.5 gm/dL (12-16) L D 07/04/17 04:30 Hct 31.6 % (41.0-60) L D 07/04/17 04:30 MCV 83.8 fl (81-100) 07/04/17 04:30 MCH 27.7 pg (27.0-31.0) 07/04/17 04:30 MCHC Differential 33.1 pg (28.0-36.0) 07/04/17 04:30 RDW 15.2 % (11.5-20.0) 07/04/17 04:30 Plt Count 383 Th/cmm (150-400) 07/04/17 04:30 MPV 7.3 fl 07/04/17 04:30 Neutrophils % 74.8 % (40.0-80.0) 07/03/17 03:53 Band Neutrophils % 2 % (0-10) 07/04/17 04:30 Lymphocytes % 16.2 % (20.0-50.0) L 07/03/17 03:53 Monocytes % 7.1 % (2.0-10.0) 07/03/17 03:53 Eosinophils % 1.8 % (0.0-5.0) 07/03/17 03:53 Basophils % 0.1 % (0.0-2.0) 07/03/17 03:53 Neutrophils (Manual) 80 % (40-80) 07/04/17 04:30 Lymphocytes 12 % (20-50) L 07/04/17 04:30 Monocytes 2 % (2-10) 07/04/17 04:30 Eosinophils 4 % (0-5) 07/04/17 04:30 Hypochromia 1+ 07/04/17 04:30 Platelet Estimate ADEQUATE (NORMAL) 07/04/17 04:30 Polychromasia 1+ 07/04/17 04:30 Schistocytes 1+ 07/04/17 04:30 PT 11.8 SECONDS (9.5-11.5) H 06/28/17 04:10 INR 1.12 (0.5-1.4) 06/28/17 04:10 PTT (Actin FS) 28.0 SECONDS (26.0-38.0) 07/04/17 04:30 D-Dimer 3600 ng/mL (100-400) H 06/21/17 18:20 Specimen Source Arterial 06/28/17 10:55 Sample Site Right Radial 06/28/17 10:55 pH 7.44 (7.35-7.45) 06/28/17 10:55 pCO2 36.0 mmHg (35.0-45.0) 06/28/17 10:55 pO2 100.0 mmHg (80.0-100.0) 06/28/17 10:55 HCO3 25.4 mEq/L (20.0-26.0) 06/28/17 10:55 Base Excess 0.6 mEq/L (-3.0-3.0) 06/28/17 10:55 O2 Saturation 98.0 % (92.0-100.0) 06/28/17 10:55 Rashid Test Positive 06/28/17 10:55 Vent Rate N/A 06/28/17 10:55 Inspired O2 28 06/28/17 10:55 Tidal Volume N/A 06/28/17 10:55 PEEP N/A 06/28/17 10:55 Pressure (ins/psv/peep) N/A 06/28/17 10:55 Critical Value DM 06/28/17 10:55 Sodium 142 mEq/L (136-145) 07/04/17 04:30 Potassium 3.8 mEq/L (3.5-5.1) 07/04/17 04:30 Chloride 112 mEq/L (98-107) H 07/04/17 04:30 Carbon Dioxide 23.0 mEq/L (21.0-31.0) 07/04/17 04:30 Anion Gap 10.8 (7.0-16.0) 07/04/17 04:30 BUN 17 mg/dL (7-25) 07/04/17 04:30 Creatinine 1.6 mg/dL (0.6-1.2) H 07/04/17 04:30 Est GFR ( Amer) TNP 07/04/17 04:30 Est GFR (Non-Af Amer) TNP 07/04/17 04:30 BUN/Creatinine Ratio 10.6 07/04/17 04:30 Glucose 168 mg/dL (70-105) H 07/04/17 04:30 POC Glucose 185 MG/DL (70 - 105) H 07/04/17 12:02 Hemoglobin A1c % 11.7 % (4.0-6.0) H 06/21/17 18:20 Calcium 7.7 mg/dL (8.6-10.3) L 07/04/17 04:30 Magnesium 1.8 mg/dL (1.9-2.7) L 07/02/17 03:41 Iron 19 ug/dL (27-139) L 06/22/17 05:20 TIBC 176 ug/dL (250-450) L 06/22/17 05:20 Iron Saturation 11 % (15-55) L 06/22/17 05:20 Unsaturated IBC 157 ug/dL (118-369) 06/22/17 05:20 Ferritin 164 ng/mL (15-150) H 06/22/17 05:20 Total Bilirubin 0.5 mg/dL (0.3-1.0) 07/04/17 04:30 AST 16 U/L (13-39) 07/04/17 04:30 ALT 8 U/L (7-52) 07/04/17 04:30 Alkaline Phosphatase 95 U/L (34-104) 07/04/17 04:30 Ammonia 38 umol/L (16-53) 07/02/17 03:41 Creatine Kinase 39 U/L (30-223) 06/21/17 18:20 Troponin I 0.01 ng/mL (0.01-0.05) 06/21/17 18:20 B-Natriuretic Peptide 187.0 pg/mL (5.0-100.0) H 07/01/17 08:40 Total Protein 5.0 gm/dL (6.0-8.3) L 07/04/17 04:30 Albumin 2.0 gm/dL (3.7-5.3) L 07/04/17 04:30 Globulin 3.0 gm/dL 07/04/17 04:30 Albumin/Globulin Ratio 0.7 (1.0-1.8) L 07/04/17 04:30 Triglycerides 104 mg/dL (<150) 06/21/17 18:20 Cholesterol 129 mg/dL (<200) 06/21/17 18:20 LDL Cholesterol Direct 65 mg/dL (75-193) L 06/21/17 18:20 HDL Cholesterol 43 mg/dL (23-92) 06/21/17 18:20 Vitamin B12 621 pg/mL (232-1245) 06/22/17 05:20 Folic Acid 14.7 ng/mL (>3.0) 06/22/17 05:20 Helicobacter pylori Ab POSITIVE (NEGATIVE) 06/23/17 10:50 Blood Type O POSITIVE 07/03/17 08:38 Antibody Screen NEGATIVE 07/03/17 08:38 Crossmatch See Detail 07/03/17 08:38 - Physical Exam Vitals and I&O: Vital Signs Temp 97.3 F 07/04/17 11:00 Pulse 81 07/04/17 11:00 Resp 20 07/04/17 11:00 BP 159/79 07/04/17 11:00 Pulse Ox 100 07/04/17 11:00 Intake & Output 07/03/17 07/04/17 07/04/17 18:59 06:59 18:59 Intake Total 1577.5 1500 508.75 Output Total 800 700 Balance 777.5 800 508.75 Weight (lbs) 126 lb 7 oz 126 lb Intake: Intake, IV Amount 367.5 1200 508.75 D5-0.45NS w/40 mEq KCL 1, 167.5 1000 508.75 000 ml @ 75 mls/hr IV . [id number] ED Rx#:[id number] Piperacillin Sodium/ 100 100 Tazobact 3.375 gm In Sodium Chloride 0.9% 50 ml @ 100 mls/hr IV Q6HR [place] Rx#:[id number] metroNIDAZOLE 500mg/NS 100 100 100mL 500 mg In 100 ml @ 100 mls/hr IV Q8HR ED Rx #:[id number] Tube Feeding 190 300 Blood Product 500 Other 520 Output: Urine 800 700 Other: # Bowel Movements 0 0 Active Medications: Current Medications Acetaminophen (Tylenol) 650 mg PO Q4H PRN PRN Reason: Pain Or Fever above 101 Stop: 08/20/17 19:40 Al Hydrox/Mg Hydrox/Simethicone (Maalox) 30 ml PO Q6H PRN PRN Reason: Dyspepsia Stop: 08/20/17 19:40 Albuterol Sulfate (Albuterol 2.5mg/3ml Neb Ud) 2.5 mg HHN Q2HRT PRN PRN Reason: Shortness of Breath or Wheeze Stop: 08/20/17 19:40 Albuterol/Ipratropium (Duoneb Neb) 3 ml HHN Q6HRT [facility] Stop: 08/30/17 18:59 Last Admin: 07/04/17 12:34 Dose: 3 ml Amlodipine Besylate (Norvasc) 10 mg PO DAILY [facility] Stop: 08/21/17 08:59 Last Admin: 07/04/17 08:54 Dose: 10 mg Clonidine HCl ([id number]-Xjs-3) 1 patch TD We [facility] Stop: 08/28/17 13:14 Last Admin: 06/29/17 13:30 Dose: 1 patch Enalaprilat (Vasotec) 1.25 mg IVP Q6HR PRN PRN Reason: Sbp Above 170MMHG Stop: 08/22/17 11:59 Last Admin: 07/04/17 05:49 Dose: 1.25 mg Guaifenesin (Robitussin) 200 mg PO Q4HR PRN PRN Reason: Cough or Congestion Stop: 08/20/17 19:40 Haloperidol Decanoate (Haldol Dec) 25 mg IM QMONTH [facility] Stop: 08/23/17 09:59 Last Admin: 06/24/17 09:10 Dose: 25 mg Hydralazine HCl (Apresoline 20 Mg/Ml) 10 mg IV Q6HR PRN PRN Reason: SBP ABOVE 160 Stop: 08/25/17 12:20 Last Admin: 07/04/17 01:46 Dose: 10 mg Piperacillin Sod/Tazobactam (Sod 3.375 gm/ Sodium Chloride) 50 mls @ 100 mls/ hr IV Q6HR ED Stop: 07/10/17 05:59 Last Admin: 07/04/17 11:41 Dose: 100 mls/hr Metronidazole (Flagyl) 500 mg in 100 mls @ 100 mls/hr IV Q8HR ED Stop: 08/29/17 06:14 Last Admin: 07/04/17 04:51 Dose: 100 mls/hr Potassium Chloride/Dextrose/Sod Cl (D5-0.45ns W/40 Meq Kcl) 1,000 mls @ 75 mls/ hr IV .[id number] ED Stop: 08/29/17 12:44 Last Admin: 07/04/17 11:40 Dose: 75 mls/hr Heparin Sodium/Dextrose (Heparin Drip) 25,000 units in 250 mls @ 10 mls/hr IV TITR PRN; Protocol; 1,000 UNITS/HR PRN Reason: PROTOCOL Stop: 09/02/17 11:33 Insulin Aspart (Novolog) 0 units SUBQ ACHS ED PRN Reason: Protocol Stop: 08/21/17 16:29 Last Admin: 07/04/17 12:03 Dose: Not Given Ipratropium [place] (Atrovent Neb 0.5mg/2.5ml) 0.5 mg IH Q2HRT PRN PRN Reason: Shortness of Breath or Wheeze Stop: 08/20/17 19:40 Lactobacillus Rhamnosus (Culturelle 15b) 1 each PO DAILY ED Stop: 08/30/17 08:59 Last Admin: 07/04/17 08:55 Dose: 1 each Mirtazapine (Remeron) 15 mg PO HS ED PRN Reason: Protocol Stop: 08/20/17 20:59 Last Admin: 07/03/17 20:50 Dose: 15 mg Miscellaneous (Probiotic Screen) 1 ea MC PRN PRN PRN Reason: PROTOCOL Stop: 08/29/17 11:59 Miscellaneous (Heparin Drip Per Pharmacy) 1 ea MC PRN ED PRN Reason: Protocol Stop: 09/02/17 11:14 Morphine Sulfate (Morphine) 2 mg IVP Q3H PRN PRN Reason: Pain (Severe) Stop: 08/20/17 19:40 Last Admin: 07/04/17 09:17 Dose: 2 mg Nitroglycerin (Nitrostat) 0.4 mg SL Q5MIN PRN PRN Reason: Chest Pain Stop: 08/20/17 19:40 Ondansetron HCl (Zofran) 4 mg IV Q8H PRN PRN Reason: Nausea / Vomiting Stop: 08/20/17 19:40 Pantoprazole Sodium (Protonix) 40 mg IVP DAILY ED Stop: 08/31/17 09:44 Last Admin: 07/04/17 08:55 Dose: 40 mg General: weak, alert HEENT: NC/AT, PERRLA Neck: Supple Lungs: ronchi Cardiovascular: RRR, Normal S1, Normal S2, without murmur Abdomen: soft, non-tender, non-distended, positive bowel sound Extremities: excoriation Neurological: alert - Procedures Procedures: Procedures Procedure Code Date PARTIAL REMOVAL OF COLON 97221 06/21/17 RESECTION OF RIGHT LARGE INTESTINE, OPEN APPROACH [id number] 06/21/17 Internal Medicine Assmt/Plan - Assessment Assessment: acute dvt cecal mass s/p exploratory lap right right hemicolectomy severe anemia dm2 schizophrenia htn psychosis hypokalemia - Plan Plan: monitor electrolytes follow up labs in am will follow technical marketing consultant recommendations Nutritional Asmnt/Malnutr-PDOC - Dietary Evaluation Malnutrition Findings (Please click <Entered> for more info): Nutritional Asmnt/Malnutrition Start: 06/22/17 18: 04 Text: Status: Complete Freq: Document 06/22/17 18:04 LCJENY (Rec: 06/22/17 18:15 JENYG [email or web address]) Nutritional Asmnt/Malnutrition Patient General Information Nutritional Screening High Risk Consult Diagnosis left lower extremity DVT, severe anemia, CHF, HTN Pertinent Medical Hx/Surgical Hx DM, anemia, renal stones, schizophrenia Subjective Information Pt seen lying in bed, confused at time of visit. Spoke with LULÚ Seay RN reported pt ate well, consumed 60% of breakfast this morning. Per notes, pt has EGD and colonoscopy scheduled tommorrow. Current Diet Order/ Nutrition Support pureed Pertinent Medications D5-0.9ns, novolog, remeron, kcl Pertinent Labs 06/21 Na 137, K 3.5, Cl 100, BUN 24, Cr 1.3, Glucose 186, AST 10, ALT 6, Alb 2.6 06/22 POC 383 Nutritional Hx/Data Height 5 ft Height (Calculated Centimeters) 152.4 Current Weight (lbs) 86 lb Weight (Calculated Kilograms) 39.0 Weight (Calculated Grams) 27796.9 Leonard Body Weight 100 % Leonard Body Weight 86 Body Mass Index (BMI) 16.7 Weight Status Underweight GI Symptoms GI Symptoms None Last BM none Difficult in: None Skin Integrity/Comment: intact Current %PO Fair (50-74%) Estimated Nutritional Goals Calories/Kcals/Kg 25-30 based on IBW 45kg Kcals Calculated 7204-4400 Protein g/k-1.2 Protein Calculated 45-54 Fluid: ml 1125-1350ml (1ml/kcal) Nutritional Problem 1. Problem Problem altered nutrition related lab values Etiology hx of DM Signs/Symptoms: Glucose 186, POC 383 Malnutrition Alert Protein-Calorie Malnutrition N/A Is there a minimum of two criteria No selected? Query Text:Check all the applicable criteria. A minimum of two criteria are recommended for diagnosis of either severe or non-severe malnutrition. Intervention/Recommendation Comments 1. Recommend CCHO, low sodium diet for optimal glycemic and BP control. RN notified. 2. Monitor PO intake, wt, labs and skin integrity 3. F/U as high risk in 2-3 days, 06/24-06/25 Expected Outcomes/Goals Expected Outcomes/Goals 1. PO intake to meet at least 75% of nutritional needs. 2. Wt stability, skin to remain intact, labs to improve
[2017-07-04] MEDS: Heparin 25,000 Units In D5W 25,000 UNITS/250 ML BAG IV PRN (13:40)
[2017-07-05] MEDS: Albuterol/Ipratropium Neb 3 ML AERS HHN SCH ×4 (01:41→19:29)
[2017-07-05] MEDS: metroNIDAZOLE 500mg/NS 100mL 500 MG/100 ML BAG IV SCH ×2 (04:06→13:43)
[2017-07-05 04:40] LABS: % BASOPHILS 0.2 % (0.0-2.0); % EOSINOPHILS 2.8 % (0.0-5.0); % LYMPHOCYTES 11.6 % (20.0-50.0); % MONOCYTES 2.5 % (2.0-10.0); % NEUTROPHILS 82.9 % (40.0-80.0); EOSINOPHILE ABSOLUTE 0.4 Th/cmm (0.1-0.4); HEMATOCRIT 32.1 % (41.0-60); HEMOGLOBIN 10.7 gm/dL (12-16); LYMPHOCYTE ABSOLUTE 1.5 Th/cmm (1.5-3.0); MEAN CELL VOLUME 84.2 fl (81-100); MEAN CORPUSCULAR HEMOGLOBIN 28.2 pg (27.0-31.0); MEAN CORPUSCULAR HGB CONC 33.5 pg (28.0-36.0); MEAN PLATELET VOLUME 7.4 fl; MONOCYTE ABSOLUTE 0.3 Th/cmm (0.3-1.0); NEUTROPHILE ABSOLUTE 10.4 Th/cmm (1.8-8.0); PLATELET COUNT 327 Th/cmm (150-400); RED BLOOD COUNT 3.81 Mil/cmm (3.80-5.20); RED CELL DISTRIBUTION WIDTH 15.7 % (11.5-20.0)
[2017-07-05 04:42] LABS: WHITE BLOOD COUNT 12.6 Th/cmm (4.8-10.8)
[2017-07-05 04:55] LABS: ANION GAP 10.3 (7.0-16.0); BUN - UREA NITROGEN 18 mg/dL (7-25); CALCIUM SERUM 7.9 mg/dL (8.6-10.3); CARBON DIOXIDE 22.6 mEq/L (21.0-31.0); CHLORIDE 113 mEq/L (98-107); CREATININE - SERUM 1.5 mg/dL (0.6-1.2); GLUCOSE 142 mg/dL (70-105); POTASSIUM SERUM 3.9 mEq/L (3.5-5.1); SODIUM SERUM 142 mEq/L (136-145)
[2017-07-05] MEDS: INSULIN ASPART, RECOMBINANT 100 UNITS/ML SUBQ SCH ×3 (05:54→18:00)
[2017-07-05 06:09] LABS: FOLIC ACID 10.3 ng/mL (>3.0)
--- NOTE | 2017-07-05 08:47 | Diagnostic Imaging Report ---
Exam: Portable chest x-ray HISTORY: Shortness of breath. Findings: Portable examination of the chest at 0817 hours reviewed compatible prior study 06/30/2017 demonstrates left basilar infiltrate and effusion. The mediastinal structures midline the heart is not enlarged. NG tube is passes stomach. The visualized right lung parenchyma is well aerated. Bony thorax remarkable for degenerative changes. Mild congestion is present. IMPRESSION: Left basilar infiltrate and effusion, follow-up examination recommended.
[2017-07-05] MEDS: Lactobacillus Rhamnosus GG 15 Billion CFU CAP.SPRINK PO SCH (09:41)
--- NOTE | 2017-07-05 12:39 | Internal Medicine Prog Note ---
Internal Medicine Subjective - Subjective Service Date: 07/05/17 Patient seen and examined:: with staff Patient is:: awake, non-interactive Patient Complaints of:: congestion Per staff patient has:: no adverse event, no episodes of fall, tolerating meds Internal Medicine Objective - Results Result Diagrams: 07/05/17 04:30 07/05/17 04:30 Recent Labs: Laboratory Last Values WBC 12.6 Th/cmm (4.8-10.8) H 07/05/17 04:30 RBC 3.81 Mil/cmm (3.80-5.20) 07/05/17 04:30 Hgb 10.7 gm/dL (12-16) L 07/05/17 04:30 Hct 32.1 % (41.0-60) L 07/05/17 04:30 MCV 84.2 fl (81-100) 07/05/17 04:30 MCH 28.2 pg (27.0-31.0) 07/05/17 04:30 MCHC Differential 33.5 pg (28.0-36.0) 07/05/17 04:30 RDW 15.7 % (11.5-20.0) 07/05/17 04:30 Plt Count 327 Th/cmm (150-400) 07/05/17 04:30 MPV 7.4 fl 07/05/17 04:30 Neutrophils % 82.9 % (40.0-80.0) H 07/05/17 04:30 Band Neutrophils % 2 % (0-10) 07/04/17 04:30 Lymphocytes % 11.6 % (20.0-50.0) L 07/05/17 04:30 Monocytes % 2.5 % (2.0-10.0) 07/05/17 04:30 Eosinophils % 2.8 % (0.0-5.0) 07/05/17 04:30 Basophils % 0.2 % (0.0-2.0) 07/05/17 04:30 Neutrophils (Manual) 80 % (40-80) 07/04/17 04:30 Lymphocytes 12 % (20-50) L 07/04/17 04:30 Monocytes 2 % (2-10) 07/04/17 04:30 Eosinophils 4 % (0-5) 07/04/17 04:30 Hypochromia 1+ 02/05/18 04:30 Platelet Estimate ADEQUATE (NORMAL) 07/04/17 04:30 Polychromasia 1+ 07/04/17 04:30 Schistocytes 1+ 07/04/17 04:30 PT 11.8 SECONDS (9.5-11.5) H 06/28/17 04:10 INR 1.12 (0.5-1.4) 06/28/17 04:10 PTT (Actin FS) 121.1 SECONDS (26.0-38.0) H* 07/05/17 10:30 D-Dimer 3600 ng/mL (100-400) H 06/21/17 18:20 Specimen Source Arterial 06/28/17 10:55 Sample Site Right Radial 06/28/17 10:55 pH 7.44 (7.35-7.45) 06/28/17 10:55 pCO2 36.0 mmHg (35.0-45.0) 06/28/17 10:55 pO2 100.0 mmHg (80.0-100.0) 06/28/17 10:55 HCO3 25.4 mEq/L (20.0-26.0) 06/28/17 10:55 Base Excess 0.6 mEq/L (-3.0-3.0) 06/28/17 10:55 O2 Saturation 98.0 % (92.0-100.0) 06/28/17 10:55 Rashid Test Positive 06/28/17 10:55 Vent Rate N/A 06/28/17 10:55 Inspired O2 28 06/28/17 10:55 Tidal Volume N/A 06/28/17 10:55 PEEP N/A 06/28/17 10:55 Pressure (ins/psv/peep) N/A 06/28/17 10:55 Critical Value DM 06/28/17 10:55 Sodium 142 mEq/L (136-145) 07/05/17 04:30 Potassium 3.9 mEq/L (3.5-5.1) 07/05/17 04:30 Chloride 113 mEq/L (98-107) H 07/05/17 04:30 Carbon Dioxide 22.6 mEq/L (21.0-31.0) 07/05/17 04:30 Anion Gap 10.3 (7.0-16.0) 07/05/17 04:30 BUN 18 mg/dL (7-25) 07/05/17 04:30 Creatinine 1.5 mg/dL (0.6-1.2) H 07/05/17 04:30 Est GFR ( Amer) TNP 07/05/17 04:30 Est GFR (Non-Af Amer) TNP 07/05/17 04:30 BUN/Creatinine Ratio 12.0 07/05/17 04:30 Glucose 142 mg/dL (70-105) H 07/05/17 04:30 POC Glucose 132 MG/DL (70 - 105) H 07/05/17 05:37 Hemoglobin A1c % 11.7 % (4.0-6.0) H 06/21/17 18:20 Calcium 7.9 mg/dL (8.6-10.3) L 07/05/17 04:30 Magnesium 1.8 mg/dL (1.9-2.7) L 07/02/17 03:41 Iron 19 ug/dL (27-139) L 06/22/17 05:20 TIBC 176 ug/dL (250-450) L 06/22/17 05:20 Iron Saturation 11 % (15-55) L 06/22/17 05:20 Unsaturated IBC 157 ug/dL (118-369) 06/22/17 05:20 Ferritin 164 ng/mL (15-150) H 06/22/17 05:20 Total Bilirubin 0.5 mg/dL (0.3-1.0) 07/04/17 04:30 AST 16 U/L (13-39) 07/04/17 04:30 ALT 8 U/L (7-52) 07/04/17 04:30 Alkaline Phosphatase 95 U/L (34-104) 07/04/17 04:30 Ammonia 38 umol/L (16-53) 07/02/17 03:41 Creatine Kinase 39 U/L (30-223) 06/21/17 18:20 Troponin I 0.01 ng/mL (0.01-0.05) 06/21/17 18:20 B-Natriuretic Peptide 187.0 pg/mL (5.0-100.0) H 07/01/17 08:40 Total Protein 5.0 gm/dL (6.0-8.3) L 07/04/17 04:30 Albumin 2.0 gm/dL (3.7-5.3) L 07/04/17 04:30 Globulin 3.0 gm/dL 07/04/17 04:30 Albumin/Globulin Ratio 0.7 (1.0-1.8) L 07/04/17 04:30 Triglycerides 104 mg/dL (<150) 06/21/17 18:20 Cholesterol 129 mg/dL (<200) 06/21/17 18:20 LDL Cholesterol Direct 65 mg/dL (75-193) L 06/21/17 18:20 HDL Cholesterol 43 mg/dL (23-92) 06/21/17 18:20 Vitamin B12 1797 pg/mL (232-1245) H 07/02/17 03:41 Folic Acid 10.3 ng/mL (>3.0) 07/02/17 03:41 Helicobacter pylori Ab POSITIVE (NEGATIVE) 06/23/17 10:50 Blood Type O POSITIVE 07/03/17 08:38 Antibody Screen NEGATIVE 07/03/17 08:38 Crossmatch See Detail 07/03/17 08:38 - Physical Exam Vitals and I&O: Vital Signs Temp 96.2 F 07/05/17 12:00 Pulse 81 07/05/17 12:00 Resp 19 07/05/17 12:00 BP 134/83 07/05/17 12:00 Pulse Ox 100 07/05/17 12:00 Intake & Output 07/04/17 07/05/17 07/05/17 18:59 06:59 18:59 Intake Total 1468.75 1032.45 Output Total 880 650 Balance 588.75 382.45 Weight (lbs) 128 lb 3 oz 128 lb 6.4 oz Intake: Intake, IV Amount 708.75 1032.45 D5-0.45NS w/40 mEq KCL 1, 508.75 736.25 000 ml @ 75 mls/hr IV . [id number] ED Rx#:[id number] Heparin 25,000 Units In 146.2 D5W 25,000 units In 250 ml @ 1,000 UNITS/HR 10 mls/hr IV TITR PRN Rx#: [id number] Piperacillin Sodium/ 100 50 Tazobact 3.375 gm In Sodium Chloride 0.9% 50 ml @ 100 mls/hr IV Q6HR ED Rx#:[id number] metroNIDAZOLE 500mg/NS 100 100 100mL 500 mg In 100 ml @ 100 mls/hr IV Q8HR [facility] Rx #:[id number] Tube Feeding 360 Other 400 Output: Urine 880 650 Other: # Bowel Movements 1 Stool Characteristics Soft Liquid Brown Active Medications: Current Medications Acetaminophen (Tylenol) 650 mg PO Q4H PRN PRN Reason: Pain Or Fever above 101 Stop: 08/20/17 19:40 Al Hydrox/Mg Hydrox/Simethicone (Maalox) 30 ml PO Q6H PRN PRN Reason: Dyspepsia Stop: 08/20/17 19:40 Albuterol Sulfate (Albuterol 2.5mg/3ml Neb Ud) 2.5 mg HHN Q2HRT PRN PRN Reason: Shortness of Breath or Wheeze Stop: 08/20/17 19:40 Albuterol/Ipratropium (Duoneb Neb) 3 ml HHN Q6HRT [facility] Stop: 08/30/17 18:59 Last Admin: 07/05/17 07:19 Dose: 3 ml Amlodipine Besylate (Norvasc) 10 mg PO DAILY [facility] Stop: 08/21/17 08:59 Last Admin: 07/05/17 09:41 Dose: 10 mg Clonidine HCl ([id number]-2) 1 patch TD We [facility] Stop: 08/28/17 13:14 Last Admin: 06/29/17 13:30 Dose: 1 patch Enalaprilat (Vasotec) 1.25 mg IVP Q6HR PRN PRN Reason: Sbp Above 170MMHG Stop: 08/22/17 11:59 Last Admin: 07/04/17 21:39 Dose: 1.25 mg Guaifenesin (Robitussin) 200 mg PO Q4HR PRN PRN Reason: Cough or Congestion Stop: 08/20/17 19:40 Haloperidol Decanoate (Haldol Dec) 25 mg IM QMONTH [facility] Stop: 08/23/17 09:59 Last Admin: 06/24/17 09:10 Dose: 25 mg Hydralazine HCl (Apresoline 20 Mg/Ml) 10 mg IV Q6HR PRN PRN Reason: SBP ABOVE 160 Stop: 08/25/17 12:20 Last Admin: 07/05/17 00:18 Dose: 10 mg Piperacillin Sod/Tazobactam (Sod 3.375 gm/ Sodium Chloride) 50 mls @ 100 mls/ hr IV Q6HR ED Stop: 07/10/17 05:59 Last Admin: 07/05/17 05:56 Dose: 100 mls/hr Metronidazole (Flagyl) 500 mg in 100 mls @ 100 mls/hr IV Q8HR ED Stop: 08/29/17 06:14 Last Admin: 07/05/17 04:06 Dose: 100 mls/hr Potassium Chloride/Dextrose/Sod Cl (D5-0.45ns W/40 Meq Kcl) 1,000 mls @ 75 mls/ hr IV .[id number] ED Stop: 08/29/17 12:44 Last Admin: 07/04/17 21:29 Dose: 75 mls/hr Heparin Sodium/Dextrose (Heparin Drip) 25,000 units in 250 mls @ 10 mls/hr IV TITR PRN; Protocol; 1,000 UNITS/HR PRN Reason: PROTOCOL Stop: 09/02/17 11:33 Last Titration: 07/05/17 05:14 Dose: 800 units/hr, 8 mls/hr Insulin Aspart (Novolog) 0 units SUBQ Q6HR ED PRN Reason: Protocol Stop: 09/03/17 00:00 Last Admin: 07/05/17 05:54 Dose: Not Given Ipratropium [place] (Atrovent Neb 0.5mg/2.5ml) 0.5 mg IH Q2HRT PRN PRN Reason: Shortness of Breath or Wheeze Stop: 08/20/17 19:40 Lactobacillus Rhamnosus (Culturelle 15b) 1 each PO DAILY [facility] Stop: 08/30/17 08:59 Last Admin: 07/05/17 09:41 Dose: 1 each Mirtazapine (Remeron) 15 mg PO HS ED PRN Reason: Protocol Stop: 08/20/17 20:59 Last Admin: 07/04/17 20:38 Dose: 15 mg Miscellaneous (Probiotic Screen) 1 ea PRN PRN PRN Reason: PROTOCOL Stop: 08/29/17 11:59 Miscellaneous (Heparin Drip Per Pharmacy) 1 ea PRN ED PRN Reason: Protocol Stop: 09/02/17 11:14 Morphine Sulfate (Morphine) 2 mg IVP Q3H PRN PRN Reason: Pain (Severe) Stop: 08/20/17 19:40 Last Admin: 07/04/17 20:36 Dose: 2 mg Nitroglycerin (Nitrostat) 0.4 mg SL Q5MIN PRN PRN Reason: Chest Pain Stop: 08/20/17 19:40 Ondansetron HCl (Zofran) 4 mg IV Q8H PRN PRN Reason: Nausea / Vomiting Stop: 08/20/17 19:40 Pantoprazole Sodium (Protonix) 40 mg IVP DAILY ED Stop: 08/31/17 09:44 Last Admin: 07/05/17 09:41 Dose: 40 mg General: weak, alert HEENT: NC/AT, PERRLA Neck: Supple Lungs: ronchi Cardiovascular: RRR, Normal S1, Normal S2, without murmur Abdomen: soft, non-tender, non-distended, positive bowel sound Extremities: excoriation Neurological: alert - Procedures Procedures: Procedures Procedure Code Date PARTIAL REMOVAL OF COLON 65318 06/21/17 RESECTION OF RIGHT LARGE INTESTINE, OPEN APPROACH [id number] 06/21/17 Internal Medicine Assmt/Plan - Assessment Assessment: acute dvt cecal mass s/p exploratory lap right right hemicolectomy severe anemia dm2 schizophrenia htn psychosis hypokalemia - Plan Plan: monitor electrolytes follow up labs in am will follow technical marketing consultant recommendations Nutritional Asmnt/Malnutr-PDOC - Dietary Evaluation Malnutrition Findings (Please click <Entered> for more info): Nutritional Asmnt/Malnutrition Start: 06/22/17 18: 04 Text: Status: Complete Freq: Document 06/22/17 18:04 JENY (Rec: 06/22/17 18:15 [facility] Nutritional Asmnt/Malnutrition Patient General Information Nutritional Screening High Risk Consult Diagnosis left lower extremity DVT, severe anemia, CHF, HTN Pertinent Medical Hx/Surgical Hx DM, anemia, renal stones, schizophrenia Subjective Information Pt seen lying in bed, confused at time of visit. Spoke with LULÚ Seay, RN reported pt ate well, consumed 60% of breakfast this morning. Per notes, pt has EGD and colonoscopy scheduled tommorrow. Current Diet Order/ Nutrition Support pureed Pertinent Medications D5-0.9ns, novolog, remeron, kcl Pertinent Labs 06/21 Na 137, K 3.5, Cl 100, BUN 24, Cr 1.3, Glucose 186, AST 10, ALT 6, Alb 2.6 06/22 POC 383 Nutritional Hx/Data Height 5 ft Height (Calculated Centimeters) 152.4 Current Weight (lbs) 86 lb Weight (Calculated Kilograms) 39.0 Weight (Calculated Grams) 10469.9 [place] Body Weight 100 % [place] Body Weight 86 Body Mass Index (BMI) 16.7 Weight Status Underweight GI Symptoms GI Symptoms None Last BM none Difficult in: None Skin Integrity/Comment: intact Current %PO Fair (50-74%) Estimated Nutritional Goals Calories/Kcals/Kg 25-30 based on IBW 45kg Kcals Calculated 0299-6369 Protein g/k-1.2 Protein Calculated 45-54 Fluid: ml 1125-1350ml (1ml/kcal) Nutritional Problem 1. Problem Problem altered nutrition related lab values Etiology hx of DM Signs/Symptoms: Glucose 186, POC 383 Malnutrition Alert Protein-Calorie Malnutrition N/A Is there a minimum of two criteria No selected? Query Text:Check all the applicable criteria. A minimum of two criteria are recommended for diagnosis of either severe or non-severe malnutrition. Intervention/Recommendation Comments 1. Recommend CCHO, low sodium diet for optimal glycemic and BP control. RN notified. 2. Monitor PO intake, wt, labs and skin integrity 3. F/U as high risk in 2-3 days, 06/24-06/25 Expected Outcomes/Goals Expected Outcomes/Goals 1. PO intake to meet at least 75% of nutritional needs. 2. Wt stability, skin to remain intact, labs to improve
[2017-07-05] MEDS: D5-0.45NS w/40 mEq KCL 1,000 ML IV SCH (13:42)
[2017-07-06] MEDS: INSULIN ASPART, RECOMBINANT 100 UNITS/ML SUBQ SCH ×4 (00:17→19:40)
[2017-07-06] MEDS: Albuterol/Ipratropium Neb 3 ML AERS HHN SCH ×4 (01:35→19:13)
[2017-07-06] MEDS: Morphine Sulfate 2 mg/mL 1mL Syr IVP PRN ×2 (01:54→20:32)
[2017-07-06] MEDS: D5-0.45NS w/40 mEq KCL 1,000 ML IV SCH ×2 (03:59→19:35)
[2017-07-06 05:54] LABS: % BASOPHILS 0.3 % (0.0-2.0); % EOSINOPHILS 2.2 % (0.0-5.0); % LYMPHOCYTES 13.8 % (20.0-50.0); % MONOCYTES 5.9 % (2.0-10.0); % NEUTROPHILS 77.8 % (40.0-80.0); EOSINOPHILE ABSOLUTE 0.3 Th/cmm (0.1-0.4); HEMATOCRIT 32.1 % (41.0-60); HEMOGLOBIN 10.4 gm/dL (12-16); LYMPHOCYTE ABSOLUTE 1.6 Th/cmm (1.5-3.0); MEAN CELL VOLUME 84.9 fl (81-100); MEAN CORPUSCULAR HEMOGLOBIN 27.5 pg (27.0-31.0); MEAN CORPUSCULAR HGB CONC 32.4 pg (28.0-36.0); MEAN PLATELET VOLUME 7.6 fl; MONOCYTE ABSOLUTE 0.7 Th/cmm (0.3-1.0); NEUTROPHILE ABSOLUTE 8.9 Th/cmm (1.8-8.0); PLATELET COUNT 350 Th/cmm (150-400); RED BLOOD COUNT 3.78 Mil/cmm (3.80-5.20); RED CELL DISTRIBUTION WIDTH 16.2 % (11.5-20.0); WHITE BLOOD COUNT 11.5 Th/cmm (4.8-10.8)
[2017-07-06 06:09] LABS: ANION GAP 8.5 (7.0-16.0); BUN - UREA NITROGEN 17 mg/dL (7-25); CARBON DIOXIDE 24.6 mEq/L (21.0-31.0); CHLORIDE 110 mEq/L (98-107); CREATININE - SERUM 1.4 mg/dL (0.6-1.2); GLUCOSE 156 mg/dL (70-105); POTASSIUM SERUM 4.1 mEq/L (3.5-5.1); SODIUM SERUM 139 mEq/L (136-145)
[2017-07-06] MEDS: Heparin 25,000 Units In D5W 25,000 UNITS/250 ML BAG IV PRN (07:17)
[2017-07-06] MEDS: Lactobacillus Rhamnosus GG 15 Billion CFU CAP.SPRINK PO SCH (08:33)
--- NOTE | 2017-07-06 12:23 | General Progress Note ---
Subjective - Review of Systems Service Date: 07/06/17 Objective - Results Result Diagrams: 07/06/17 05:35 07/06/17 05:35 Recent Labs: Laboratory Last Values WBC 11.5 Th/cmm (4.8-10.8) H 07/06/17 05:35 RBC 3.78 Mil/cmm (3.80-5.20) L 07/06/17 05:35 Hgb 10.4 gm/dL (12-16) L 07/06/17 05:35 Hct 32.1 % (41.0-60) L 07/06/17 05:35 MCV 84.9 fl (81-100) 07/06/17 05:35 MCH 27.5 pg (27.0-31.0) 07/06/17 05:35 MCHC Differential 32.4 pg (28.0-36.0) 07/06/17 05:35 RDW 16.2 % (11.5-20.0) 07/06/17 05:35 Plt Count 350 Th/cmm (150-400) 07/06/17 05:35 MPV 7.6 fl 07/06/17 05:35 Neutrophils % 77.8 % (40.0-80.0) 07/06/17 05:35 Band Neutrophils % 2 % (0-10) 07/04/17 04:30 Lymphocytes % 13.8 % (20.0-50.0) L 07/06/17 05:35 Monocytes % 5.9 % (2.0-10.0) 07/06/17 05:35 Eosinophils % 2.2 % (0.0-5.0) 07/06/17 05:35 Basophils % 0.3 % (0.0-2.0) 07/06/17 05:35 Neutrophils (Manual) 80 % (40-80) 07/04/17 04:30 Lymphocytes 12 % (20-50) L 07/04/17 04:30 Monocytes 2 % (2-10) 07/04/17 04:30 Eosinophils 4 % (0-5) 07/04/17 04:30 Hypochromia 1+ 07/04/17 04:30 Platelet Estimate ADEQUATE (NORMAL) 07/04/17 04:30 Polychromasia 1+ 07/04/17 04:30 Schistocytes 1+ 07/04/17 04:30 PT 11.8 SECONDS (9.5-11.5) H 06/28/17 04:10 INR 1.12 (0.5-1.4) 06/28/17 04:10 PTT (Actin FS) 95.9 SECONDS (26.0-38.0) H* 07/06/17 05:35 D-Dimer 3600 ng/mL (100-400) H 06/21/17 18:20 Specimen Source Arterial 06/28/17 10:55 Sample Site Right Radial 06/28/17 10:55 pH 7.44 (7.35-7.45) 06/28/17 10:55 pCO2 36.0 mmHg (35.0-45.0) 06/28/17 10:55 pO2 100.0 mmHg (80.0-100.0) 06/28/17 10:55 HCO3 25.4 mEq/L (20.0-26.0) 06/28/17 10:55 Base Excess 0.6 mEq/L (-3.0-3.0) 06/28/17 10:55 O2 Saturation 98.0 % (92.0-100.0) 06/28/17 10:55 Rashid Test Positive 06/28/17 10:55 Vent Rate N/A 06/28/17 10:55 Inspired O2 28 06/28/17 10:55 Tidal Volume N/A 06/28/17 10:55 PEEP N/A 06/28/17 10:55 Pressure (ins/psv/peep) N/A 06/28/17 10:55 Critical Value DM 06/28/17 10:55 Sodium 139 mEq/L (136-145) 07/06/17 05:35 Potassium 4.1 mEq/L (3.5-5.1) 07/06/17 05:35 Chloride 110 mEq/L (98-107) H 07/06/17 05:35 Carbon Dioxide 24.6 mEq/L (21.0-31.0) 07/06/17 05:35 Anion Gap 8.5 (7.0-16.0) 07/06/17 05:35 BUN 17 mg/dL (7-25) 07/06/17 05:35 Creatinine 1.4 mg/dL (0.6-1.2) H 07/06/17 05:35 Est GFR ( Amer) TNP 07/06/17 05:35 Est GFR (Non-Af Amer) TNP 07/06/17 05:35 BUN/Creatinine Ratio 12.1 07/06/17 05:35 Glucose 156 mg/dL (70-105) H 07/06/17 05:35 POC Glucose 171 MG/DL (70 - 105) H 07/06/17 12:15 Hemoglobin A1c % 11.7 % (4.0-6.0) H 06/21/17 18:20 Calcium 8.0 mg/dL (8.6-10.3) L 07/06/17 05:35 Magnesium 1.8 mg/dL (1.9-2.7) L 07/02/17 03:41 Iron 19 ug/dL (27-139) L 06/22/17 05:20 TIBC 176 ug/dL (250-450) L 06/22/17 05:20 Iron Saturation 11 % (15-55) L 06/22/17 05:20 Unsaturated IBC 157 ug/dL (118-369) 06/22/17 05:20 Ferritin 164 ng/mL (15-150) H 06/22/17 05:20 Total Bilirubin 0.5 mg/dL (0.3-1.0) 07/04/17 04:30 AST 16 U/L (13-39) 07/04/17 04:30 ALT 8 U/L (7-52) 07/04/17 04:30 Alkaline Phosphatase 95 U/L (34-104) 07/04/17 04:30 Ammonia 38 umol/L (16-53) 07/02/17 03:41 Creatine Kinase 39 U/L (30-223) 06/21/17 18:20 Troponin I 0.01 ng/mL (0.01-0.05) 06/21/17 18:20 B-Natriuretic Peptide 187.0 pg/mL (5.0-100.0) H 07/01/17 08:40 Total Protein 5.0 gm/dL (6.0-8.3) L 07/04/17 04:30 Albumin 2.0 gm/dL (3.7-5.3) L 07/04/17 04:30 Globulin 3.0 gm/dL 07/04/17 04:30 Albumin/Globulin Ratio 0.7 (1.0-1.8) L 07/04/17 04:30 Triglycerides 104 mg/dL (<150) 06/21/17 18:20 Cholesterol 129 mg/dL (<200) 06/21/17 18:20 LDL Cholesterol Direct 65 mg/dL (75-193) L 06/21/17 18:20 HDL Cholesterol 43 mg/dL (23-92) 06/21/17 18:20 Vitamin B12 1797 pg/mL (232-1245) H 07/02/17 03:41 Folic Acid 10.3 ng/mL (>3.0) 07/02/17 03:41 Helicobacter pylori Ab POSITIVE (NEGATIVE) 06/23/17 10:50 Blood Type O POSITIVE 07/03/17 08:38 Antibody Screen NEGATIVE 07/03/17 08:38 Crossmatch See Detail 07/03/17 08:38 - Physical Exam Vitals and I&O: Vital Signs Temp 96.7 F 07/06/17 04:00 Pulse 96 07/06/17 10:39 Resp 18 07/06/17 06:52 BP 164/88 07/06/17 10:39 Pulse Ox 97 07/06/17 06:51 Intake & Output 07/05/17 07/06/17 07/06/17 18:59 06:59 18:59 Intake Total 4784.324 6641 Output Total 900 Balance 1103.800 580 Weight (lbs) 58.06 kg Intake: Intake, IV Amount 1555.146 0985 D5-0.45NS w/40 mEq KCL 1, 1000 1000 000 ml @ 75 mls/hr IV . [id number] ED Rx#:[id number] Heparin 25,000 Units In 103.800 D5W 25,000 units In 250 ml @ 1,000 UNITS/HR 10 mls/hr IV TITR PRN Rx#: [id number] Tube Feeding 480 Output: Urine 900 Other: # Bowel Movements 1 Active Medications: Current Medications Acetaminophen (Tylenol) 650 mg PO Q4H PRN PRN Reason: Pain Or Fever above 101 Stop: 08/20/17 19:40 Al Hydrox/Mg Hydrox/Simethicone (Maalox) 30 ml PO Q6H PRN PRN Reason: Dyspepsia Stop: 08/20/17 19:40 Albuterol Sulfate (Albuterol 2.5mg/3ml Neb Ud) 2.5 mg HHN Q2HRT PRN PRN Reason: Shortness of Breath or Wheeze Stop: 08/20/17 19:40 Albuterol/Ipratropium (Duoneb Neb) 3 ml HHN Q6HRT [facility] Stop: 08/30/17 18:59 Last Admin: 07/06/17 06:50 Dose: 3 ml Amlodipine Besylate (Norvasc) 10 mg PO DAILY [facility] Stop: 08/21/17 08:59 Last Admin: 07/06/17 08:18 Dose: 10 mg Clonidine HCl (Rjvioeba-Qzf-8) 1 patch TD We [facility] Stop: 08/28/17 13:14 Last Admin: 06/29/17 13:30 Dose: 1 patch Enalaprilat (Vasotec) 1.25 mg IVP Q6HR PRN PRN Reason: Sbp Above 170MMHG Stop: 08/22/17 11:59 Last Admin: 07/06/17 08:20 Dose: 1.25 mg Guaifenesin (Robitussin) 200 mg PO Q4HR PRN PRN Reason: Cough or Congestion Stop: 08/20/17 19:40 Haloperidol Decanoate (Haldol Dec) 25 mg IM QMONTH [facility] Stop: 08/23/17 09:59 Last Admin: 06/24/17 09:10 Dose: 25 mg Hydralazine HCl (Apresoline 20 Mg/Ml) 10 mg IV Q6HR PRN PRN Reason: SBP ABOVE 160 Stop: 08/25/17 12:20 Last Admin: 07/06/17 10:39 Dose: 10 mg Potassium Chloride/Dextrose/Sod Cl (D5-0.45ns W/40 Meq Kcl) 1,000 mls @ 75 mls/ hr IV .[id number] [facility] Stop: 08/29/17 12:44 Last Admin: 07/06/17 03:59 Dose: 75 mls/hr Heparin Sodium/Dextrose (Heparin Drip) 25,000 units in 250 mls @ 10 mls/hr IV TITR PRN; Protocol; 1,000 UNITS/HR PRN Reason: PROTOCOL Stop: 09/02/17 11:33 Last Admin: 07/06/17 07:17 Dose: 600 units/hr, 6 mls/hr Insulin Aspart (Novolog) 0 units SUBQ Q6HR ED PRN Reason: Protocol Stop: 09/03/17 00:00 Last Admin: 07/06/17 06:28 Dose: Not Given Ipratropium [place] (Atrovent Neb 0.5mg/2.5ml) 0.5 mg IH Q2HRT PRN PRN Reason: Shortness of Breath or Wheeze Stop: 08/20/17 19:40 Lactobacillus Rhamnosus (Culturelle 15b) 1 each PO DAILY ED Stop: 08/30/17 08:59 Last Admin: 07/06/17 08:33 Dose: 1 each Mirtazapine (Remeron) 15 mg PO HS ED PRN Reason: Protocol Stop: 08/20/17 20:59 Last Admin: 07/05/17 21:20 Dose: 15 mg Miscellaneous (Probiotic Screen) 1 ea PRN PRN PRN Reason: PROTOCOL Stop: 08/29/17 11:59 Miscellaneous (Heparin Drip Per Pharmacy) 1 [facility] PRN ED PRN Reason: Protocol Stop: 09/02/17 11:14 Morphine Sulfate (Morphine) 2 mg IVP Q3H PRN PRN Reason: Pain (Severe) Stop: 08/20/17 19:40 Last Admin: 07/06/17 01:54 Dose: 2 mg Nitroglycerin (Nitrostat) 0.4 mg SL Q5MIN PRN PRN Reason: Chest Pain Stop: 08/20/17 19:40 Ondansetron HCl (Zofran) 4 mg IV Q8H PRN PRN Reason: Nausea / Vomiting Stop: 08/20/17 19:40 Pantoprazole Sodium (Protonix) 40 mg IVP DAILY [facility] Stop: 08/31/17 09:44 Last Admin: 07/06/17 08:33 Dose: 40 mg General: Other (ngt feeding) HEENT: Atraumatic Neck: Supple Cardiovascular: Regular rate Abdomen: Bowel sounds, Soft, Other (dressing in midline no bleeding) Extremities: Other (right arm hematoma improved) - Procedures Procedures: Procedures Procedure Code Date PARTIAL REMOVAL OF COLON 97037 06/21/17 RESECTION OF RIGHT LARGE INTESTINE, OPEN APPROACH [id number] 06/21/17 Assessment/Plan - Problem List Patient Problems: All Active Problems Altered mental status (Acute) R41.82 Failure to thrive (Acute) [id number] Schizophrenia (Acute) F20.9 Anxiety (Chronic) F41.9 Chronic Kidney Disease (Chronic) Hypertension (Chronic) - Assessment Assessment: * DVT * ANEMIA * CKD * 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 discussed with pathologist. no invasion Nutritional Asmnt/Malnutr-PDOC - Dietary Evaluation Malnutrition Findings (Please click <Entered> for more info): Nutritional Asmnt/Malnutrition Start: 06/22/17 18: 04 Text: Status: Complete Freq: Document 06/22/17 18:04 GRISELDA (Rec: 06/22/17 18:15 LCHARSHAD [email or web address]) Nutritional Asmnt/Malnutrition Patient General Information Nutritional Screening High Risk Consult Diagnosis left lower extremity DVT, severe anemia, CHF, HTN Pertinent Medical Hx/Surgical Hx DM, anemia, renal stones, schizophrenia Subjective Information Pt seen lying in bed, confused at time of visit. Spoke with RN Dawood, RN reported pt ate well, consumed 60% of breakfast this morning. Per notes, pt has EGD and colonoscopy scheduled tommorrow. Current Diet Order/ Nutrition Support pureed Pertinent Medications D5-0.9ns, novolog, remeron, kcl Pertinent Labs 06/21 Na 137, K 3.5, Cl 100, BUN 24, Cr 1.3, Glucose 186, AST 10, ALT 6, Alb 2.6 06/22 POC 383 Nutritional Hx/Data Height 1.52 m Height (Calculated Centimeters) 152.4 Current Weight (lbs) 39.009 kg Weight (Calculated Kilograms) 39.0 Weight (Calculated Grams) 45341.9 [place] Body Weight 100 % [place] Body Weight 86 Body Mass Index (BMI) 16.7 Weight Status Underweight GI Symptoms GI Symptoms None Last BM none Difficult in: None Skin Integrity/Comment: intact Current %PO Fair (50-74%) Estimated Nutritional Goals Calories/Kcals/Kg 25-30 based on IBW 45kg Kcals Calculated 2620-1711 Protein g/k-1.2 Protein Calculated 45-54 Fluid: ml 1125-1350ml (1ml/kcal) Nutritional Problem 1. Problem Problem altered nutrition related lab values Etiology hx of DM Signs/Symptoms: Glucose 186, POC 383 Malnutrition Alert Protein-Calorie Malnutrition N/A Is there a minimum of two criteria No selected? Query Text:Check all the applicable criteria. A minimum of two criteria are recommended for diagnosis of either severe or non-severe malnutrition. Intervention/Recommendation Comments 1. Recommend CCHO, low sodium diet for optimal glycemic and BP control. RN notified. 2. Monitor PO intake, wt, labs and skin integrity 3. F/U as high risk in 2-3 days, 06/24-06/25 Expected Outcomes/Goals Expected Outcomes/Goals 1. PO intake to meet at least 75% of nutritional needs. 2. Wt stability, skin to remain intact, labs to improve
--- NOTE | 2017-07-06 12:31 | Diagnostic Imaging Report ---
Portable chest x-ray HISTORY: Shortness of breath, nasogastric tube placement Compared with the prior exam of July 05, 2017, evidence of a decreased left pleural effusion. Faint infiltrate remains in the left lower lobe. Nasogastric tube extends below the diaphragm into the region of the stomach. IMPRESSION: 1. Nasogastric tube extending below the diaphragm into the region of the stomach 2. Decreased left pleural effusion 3. Hazy faint infiltrate left lower lobe
[2017-07-06] MEDS: cloNIDine 0.1 mg/24 hr Tdm TD SCH (12:44)
--- NOTE | 2017-07-06 12:44 | Internal Medicine Prog Note ---
Internal Medicine Subjective - Subjective Service Date: 07/06/17 Patient seen and examined:: with staff Patient is:: awake, non-interactive Patient Complaints of:: congestion Per staff patient has:: no adverse event, no episodes of fall, tolerating meds Internal Medicine Objective - Results Result Diagrams: 07/06/17 05:35 07/06/17 05:35 Recent Labs: Laboratory Last Values WBC 11.5 Th/cmm (4.8-10.8) H 07/06/17 05:35 RBC 3.78 Mil/cmm (3.80-5.20) L 07/06/17 05:35 Hgb 10.4 gm/dL (12-16) L 07/06/17 05:35 Hct 32.1 % (41.0-60) L 07/06/17 05:35 MCV 84.9 fl (81-100) 07/06/17 05:35 MCH 27.5 pg (27.0-31.0) 07/06/17 05:35 MCHC Differential 32.4 pg (28.0-36.0) 07/06/17 05:35 RDW 16.2 % (11.5-20.0) 07/06/17 05:35 Plt Count 350 Th/cmm (150-400) 07/06/17 05:35 MPV 7.6 fl 07/06/17 05:35 Neutrophils % 77.8 % (40.0-80.0) 07/06/17 05:35 Band Neutrophils % 2 % (0-10) 07/04/17 04:30 Lymphocytes % 13.8 % (20.0-50.0) L 07/06/17 05:35 Monocytes % 5.9 % (2.0-10.0) 07/06/17 05:35 Eosinophils % 2.2 % (0.0-5.0) 07/06/17 05:35 Basophils % 0.3 % (0.0-2.0) 07/06/17 05:35 Neutrophils (Manual) 80 % (40-80) 07/04/17 04:30 Lymphocytes 12 % (20-50) L 07/04/17 04:30 Monocytes 2 % (2-10) 07/04/17 04:30 Eosinophils 4 % (0-5) 07/04/17 04:30 Hypochromia 1+ 02/05/18 04:30 Platelet Estimate ADEQUATE (NORMAL) 07/04/17 04:30 Polychromasia 1+ 07/04/17 04:30 Schistocytes 1+ 07/04/17 04:30 PT 11.8 SECONDS (9.5-11.5) H 06/28/17 04:10 INR 1.12 (0.5-1.4) 06/28/17 04:10 PTT (Actin FS) 95.9 SECONDS (26.0-38.0) H* 07/06/17 05:35 D-Dimer 3600 ng/mL (100-400) H 06/21/17 18:20 Specimen Source Arterial 06/28/17 10:55 Sample Site Right Radial 06/28/17 10:55 pH 7.44 (7.35-7.45) 06/28/17 10:55 pCO2 36.0 mmHg (35.0-45.0) 06/28/17 10:55 pO2 100.0 mmHg (80.0-100.0) 06/28/17 10:55 HCO3 25.4 mEq/L (20.0-26.0) 06/28/17 10:55 Base Excess 0.6 mEq/L (-3.0-3.0) 06/28/17 10:55 O2 Saturation 98.0 % (92.0-100.0) 06/28/17 10:55 Rashid Test Positive 06/28/17 10:55 Vent Rate N/A 06/28/17 10:55 Inspired O2 28 06/28/17 10:55 Tidal Volume N/A 06/28/17 10:55 PEEP N/A 06/28/17 10:55 Pressure (ins/psv/peep) N/A 06/28/17 10:55 Critical Value DM 06/28/17 10:55 Sodium 139 mEq/L (136-145) 07/06/17 05:35 Potassium 4.1 mEq/L (3.5-5.1) 07/06/17 05:35 Chloride 110 mEq/L (98-107) H 07/06/17 05:35 Carbon Dioxide 24.6 mEq/L (21.0-31.0) 07/06/17 05:35 Anion Gap 8.5 (7.0-16.0) 07/06/17 05:35 BUN 17 mg/dL (7-25) 07/06/17 05:35 Creatinine 1.4 mg/dL (0.6-1.2) H 07/06/17 05:35 Est GFR ( Amer) TNP 07/06/17 05:35 Est GFR (Non-Af Amer) TNP 07/06/17 05:35 BUN/Creatinine Ratio 12.1 07/06/17 05:35 Glucose 156 mg/dL (70-105) H 07/06/17 05:35 POC Glucose 171 MG/DL (70 - 105) H 07/06/17 12:15 Hemoglobin A1c % 11.7 % (4.0-6.0) H 06/21/17 18:20 Calcium 8.0 mg/dL (8.6-10.3) L 07/06/17 05:35 Magnesium 1.8 mg/dL (1.9-2.7) L 07/02/17 03:41 Iron 19 ug/dL (27-139) L 06/22/17 05:20 TIBC 176 ug/dL (250-450) L 06/22/17 05:20 Iron Saturation 11 % (15-55) L 06/22/17 05:20 Unsaturated IBC 157 ug/dL (118-369) 06/22/17 05:20 Ferritin 164 ng/mL (15-150) H 06/22/17 05:20 Total Bilirubin 0.5 mg/dL (0.3-1.0) 07/04/17 04:30 AST 16 U/L (13-39) 07/04/17 04:30 ALT 8 U/L (7-52) 07/04/17 04:30 Alkaline Phosphatase 95 U/L (34-104) 07/04/17 04:30 Ammonia 38 umol/L (16-53) 07/02/17 03:41 Creatine Kinase 39 U/L (30-223) 06/21/17 18:20 Troponin I 0.01 ng/mL (0.01-0.05) 06/21/17 18:20 B-Natriuretic Peptide 187.0 pg/mL (5.0-100.0) H 07/01/17 08:40 Total Protein 5.0 gm/dL (6.0-8.3) L 07/04/17 04:30 Albumin 2.0 gm/dL (3.7-5.3) L 07/04/17 04:30 Globulin 3.0 gm/dL 07/04/17 04:30 Albumin/Globulin Ratio 0.7 (1.0-1.8) L 07/04/17 04:30 Triglycerides 104 mg/dL (<150) 06/21/17 18:20 Cholesterol 129 mg/dL (<200) 06/21/17 18:20 LDL Cholesterol Direct 65 mg/dL (75-193) L 06/21/17 18:20 HDL Cholesterol 43 mg/dL (23-92) 06/21/17 18:20 Vitamin B12 1797 pg/mL (232-1245) H 07/02/17 03:41 Folic Acid 10.3 ng/mL (>3.0) 07/02/17 03:41 Helicobacter pylori Ab POSITIVE (NEGATIVE) 06/23/17 10:50 Blood Type O POSITIVE 07/03/17 08:38 Antibody Screen NEGATIVE 07/03/17 08:38 Crossmatch See Detail 07/03/17 08:38 - Physical Exam Vitals and I&O: Vital Signs Temp 96.7 F 07/06/17 04:00 Pulse 103 07/06/17 11:39 Resp 18 07/06/17 06:52 BP 154/82 07/06/17 11:39 Pulse Ox 97 07/06/17 06:51 Intake & Output 07/05/17 07/06/17 07/06/17 18:59 06:59 18:59 Intake Total 6537.512 7227 Output Total 900 Balance 1103.800 580 Weight (lbs) 128 lb Intake: Intake, IV Amount 2020.722 5739 D5-0.45NS w/40 mEq KCL 1, 1000 1000 000 ml @ 75 mls/hr IV . [id number] ED Rx#:[id number] Heparin 25,000 Units In 103.800 D5W 25,000 units In 250 ml @ 1,000 UNITS/HR 10 mls/hr IV TITR PRN Rx#: [id number] Tube Feeding 480 Output: Urine 900 Other: # Bowel Movements 1 Active Medications: Current Medications Acetaminophen (Tylenol) 650 mg PO Q4H PRN PRN Reason: Pain Or Fever above 101 Stop: 08/20/17 19:40 Al Hydrox/Mg Hydrox/Simethicone (Maalox) 30 ml PO Q6H PRN PRN Reason: Dyspepsia Stop: 08/20/17 19:40 Albuterol Sulfate (Albuterol 2.5mg/3ml Neb Ud) 2.5 mg HHN Q2HRT PRN PRN Reason: Shortness of Breath or Wheeze Stop: 08/20/17 19:40 Albuterol/Ipratropium (Duoneb Neb) 3 ml HHN Q6HRT [facility] Stop: 08/30/17 18:59 Last Admin: 07/06/17 06:50 Dose: 3 ml Amlodipine Besylate (Norvasc) 10 mg PO DAILY [facility] Stop: 08/21/17 08:59 Last Admin: 07/06/17 08:18 Dose: 10 mg Clonidine HCl (Ugbuodhh-Yoi-4) 1 patch TD We [facility] Stop: 08/28/17 13:14 Last Admin: 06/29/17 13:30 Dose: 1 patch Enalaprilat (Vasotec) 1.25 mg IVP Q6HR PRN PRN Reason: Sbp Above 170MMHG Stop: 08/22/17 11:59 Last Admin: 07/06/17 08:20 Dose: 1.25 mg Guaifenesin (Robitussin) 200 mg PO Q4HR PRN PRN Reason: Cough or Congestion Stop: 08/20/17 19:40 Haloperidol Decanoate (Haldol Dec) 25 mg IM QMONTH [facility] Stop: 08/23/17 09:59 Last Admin: 06/24/17 09:10 Dose: 25 mg Hydralazine HCl (Apresoline 20 Mg/Ml) 10 mg IV Q6HR PRN PRN Reason: SBP ABOVE 160 Stop: 08/25/17 12:20 Last Admin: 07/06/17 10:39 Dose: 10 mg Potassium Chloride/Dextrose/Sod Cl (D5-0.45ns W/40 Meq Kcl) 1,000 mls @ 75 mls/ hr IV .[id number] [facility] Stop: 08/29/17 12:44 Last Admin: 07/06/17 03:59 Dose: 75 mls/hr Heparin Sodium/Dextrose (Heparin Drip) 25,000 units in 250 mls @ 10 mls/hr IV TITR PRN; Protocol; 1,000 UNITS/HR PRN Reason: PROTOCOL Stop: 09/02/17 11:33 Last Admin: 07/06/17 07:17 Dose: 600 units/hr, 6 mls/hr Insulin Aspart (Novolog) 0 units SUBQ Q6HR ED PRN Reason: Protocol Stop: 09/03/17 00:00 Last Admin: 07/06/17 12:35 Dose: Not Given Ipratropium [place] (Atrovent Neb 0.5mg/2.5ml) 0.5 mg IH Q2HRT PRN PRN Reason: Shortness of Breath or Wheeze Stop: 08/20/17 19:40 Lactobacillus Rhamnosus (Culturelle 15b) 1 each PO DAILY ED Stop: 08/30/17 08:59 Last Admin: 07/06/17 08:33 Dose: 1 each Mirtazapine (Remeron) 15 mg PO HS ED PRN Reason: Protocol Stop: 08/20/17 20:59 Last Admin: 07/05/17 21:20 Dose: 15 mg Miscellaneous (Probiotic Screen) 1 ea PRN PRN PRN Reason: PROTOCOL Stop: 08/29/17 11:59 Miscellaneous (Heparin Drip Per Pharmacy) 1 ea PRN ED PRN Reason: Protocol Stop: 09/02/17 11:14 Morphine Sulfate (Morphine) 2 mg IVP Q3H PRN PRN Reason: Pain (Severe) Stop: 08/20/17 19:40 Last Admin: 07/06/17 01:54 Dose: 2 mg Nitroglycerin (Nitrostat) 0.4 mg SL Q5MIN PRN PRN Reason: Chest Pain Stop: 08/20/17 19:40 Ondansetron HCl (Zofran) 4 mg IV Q8H PRN PRN Reason: Nausea / Vomiting Stop: 08/20/17 19:40 Pantoprazole Sodium (Protonix) 40 mg IVP DAILY [facility] Stop: 08/31/17 09:44 Last Admin: 07/06/17 08:33 Dose: 40 mg General: weak, alert HEENT: NC/AT, PERRLA Neck: Supple Lungs: ronchi Cardiovascular: RRR, Normal S1, Normal S2, without murmur Abdomen: soft, non-tender, non-distended, positive bowel sound Extremities: excoriation Neurological: alert - Procedures Procedures: Procedures Procedure Code Date PARTIAL REMOVAL OF COLON 63821 06/21/17 RESECTION OF RIGHT LARGE INTESTINE, OPEN APPROACH [id number] 06/21/17 Internal Medicine Assmt/Plan - Assessment Assessment: acute dvt cecal mass s/p exploratory lap right right hemicolectomy severe anemia dm2 schizophrenia htn psychosis hypokalemia - Plan Plan: monitor electrolytes follow up labs in am will follow mgmt consultant recommendations Nutritional Asmnt/Malnutr-PDOC - Dietary Evaluation Malnutrition Findings (Please click <Entered> for more info): Nutritional Asmnt/Malnutrition Start: 06/22/17 18: 04 Text: Status: Complete Freq: Document 06/22/17 18:04 GRISELDA (Rec: 06/22/17 18:15 LCHARSHAD [email or web address]) Nutritional Asmnt/Malnutrition Patient General Information Nutritional Screening High Risk Consult Diagnosis left lower extremity DVT, severe anemia, CHF, HTN Pertinent Medical Hx/Surgical Hx DM, anemia, renal stones, schizophrenia Subjective Information Pt seen lying in bed, confused at time of visit. Spoke with LULÚ Seay, RN reported pt ate well, consumed 60% of breakfast this morning. Per notes, pt has EGD and colonoscopy scheduled tommorrow. Current Diet Order/ Nutrition Support pureed Pertinent Medications D5-0.9ns, novolog, remeron, kcl Pertinent Labs 06/21 Na 137, K 3.5, Cl 100, BUN 24, Cr 1.3, Glucose 186, AST 10, ALT 6, Alb 2.6 06/22 POC 383 Nutritional Hx/Data Height 5 ft Height (Calculated Centimeters) 152.4 Current Weight (lbs) 86 lb Weight (Calculated Kilograms) 39.0 Weight (Calculated Grams) 67870.9 [place] Body Weight 100 % [place] Body Weight 86 Body Mass Index (BMI) 16.7 Weight Status Underweight GI Symptoms GI Symptoms None Last BM none Difficult in: None Skin Integrity/Comment: intact Current %PO Fair (50-74%) Estimated Nutritional Goals Calories/Kcals/Kg 25-30 based on IBW 45kg Kcals Calculated 3395-4870 Protein g/k-1.2 Protein Calculated 45-54 Fluid: ml 1125-1350ml (1ml/kcal) Nutritional Problem 1. Problem Problem altered nutrition related lab values Etiology hx of DM Signs/Symptoms: Glucose 186, POC 383 Malnutrition Alert Protein-Calorie Malnutrition N/A Is there a minimum of two criteria No selected? Query Text:Check all the applicable criteria. A minimum of two criteria are recommended for diagnosis of either severe or non-severe malnutrition. Intervention/Recommendation Comments 1. Recommend CCHO, low sodium diet for optimal glycemic and BP control. RN notified. 2. Monitor PO intake, wt, labs and skin integrity 3. F/U as high risk in 2-3 days, 06/24-06/25 Expected Outcomes/Goals Expected Outcomes/Goals 1. PO intake to meet at least 75% of nutritional needs. 2. Wt stability, skin to remain intact, labs to improve
[2017-07-06] MEDS ORDERED: Hydrocodone/APAP 5mg/325mg Tab PO PRN (13:13)
--- NOTE | 2017-07-06 13:17 | Discharge Summary ---
General Discharge Summary - Discharge Summary Date of Admission: 07/06/17 Admitting Diagnosis: acute dvt, severe anemia, schizoprehnia, dm2, htn, psychosis, hypokalemia Patient Problems: All Active Problems Altered mental status (Acute) R41.82 Failure to thrive (Acute) [id number] Schizophrenia (Acute) F20.9 Anxiety (Chronic) F41.9 Chronic Kidney Disease (Chronic) Hypertension (Chronic) Discharge Date: 07/06/17 Discharge Diagnosis: cecal mass s/p right hemicolectomy. acute dvt. severe anemia. dm2. schizophrenia. htn. psychosis Laboratory Findings: Laboratory Tests 06/22/17 06/22/17 06/22/17 05:20 05:20 05:20 WBC 7.3 RBC 2.66 L Hgb 7.1 L* Hct 22.0 L MCV 82.9 MCH 26.6 L MCHC Differential 32.1 RDW 13.5 Plt Count 416 H MPV 6.7 Neutrophils % 54.9 Band Neutrophils % Lymphocytes % 38.1 Monocytes % 5.3 Eosinophils % 1.3 Basophils % 0.4 Neutrophils (Manual) Lymphocytes Monocytes Eosinophils Hypochromia Platelet Estimate Polychromasia Schistocytes PT INR PTT (Actin FS) Specimen Source Sample Site pH pCO2 pO2 HCO3 Base Excess O2 Saturation Rashid Test Vent Rate Inspired O2 Tidal Volume PEEP Pressure (ins/psv/peep) Critical Value Sodium Potassium Chloride Carbon Dioxide Anion Gap BUN Creatinine Est GFR ( Amer) Est GFR (Non-Af Amer) BUN/Creatinine Ratio Glucose POC Glucose Calcium Magnesium Iron 19 L TIBC 176 L Iron Saturation 11 L Unsaturated IBC 157 Ferritin Total Bilirubin AST ALT Alkaline Phosphatase Ammonia 36 B-Natriuretic Peptide Total Protein Albumin Globulin Albumin/Globulin Ratio Vitamin B12 Folic Acid Helicobacter pylori Ab Blood Type Antibody Screen Crossmatch 06/22/17 06/22/17 06/22/17 05:20 05:20 16:14 WBC RBC Hgb Hct MCV MCH MCHC Differential RDW Plt Count MPV Neutrophils % Band Neutrophils % Lymphocytes % Monocytes % Eosinophils % Basophils % Neutrophils (Manual) Lymphocytes Monocytes Eosinophils Hypochromia Platelet Estimate Polychromasia Schistocytes PT INR PTT (Actin FS) Specimen Source Sample Site pH pCO2 pO2 HCO3 Base Excess O2 Saturation Rashid Test Vent Rate Inspired O2 Tidal Volume PEEP Pressure (ins/psv/peep) Critical Value Sodium Potassium Chloride Carbon Dioxide Anion Gap BUN Creatinine Est GFR ( Amer) Est GFR (Non-Af Amer) BUN/Creatinine Ratio Glucose POC Glucose 383 H Calcium Magnesium Iron TIBC Iron Saturation Unsaturated IBC Ferritin 164 H Total Bilirubin AST ALT Alkaline Phosphatase Ammonia B-Natriuretic Peptide Total Protein Albumin Globulin Albumin/Globulin Ratio Vitamin B12 621 Folic Acid 14.7 Helicobacter pylori Ab Blood Type Antibody Screen Crossmatch 06/22/17 06/22/17 06/22/17 16:26 16:26 21:18 WBC 7.0 RBC 2.83 L Hgb 7.6 L* Hct 23.7 L MCV 83.7 MCH 26.8 L MCHC Differential 32.0 RDW 13.5 Plt Count 416 H MPV 7.0 Neutrophils % 57.7 Band Neutrophils % Lymphocytes % 33.5 Monocytes % 6.3 Eosinophils % 1.9 Basophils % 0.6 Neutrophils (Manual) Lymphocytes Monocytes Eosinophils Hypochromia Platelet Estimate Polychromasia Schistocytes PT INR PTT (Actin FS) 28.3 Specimen Source Sample Site pH pCO2 pO2 HCO3 Base Excess O2 Saturation Rashid Test Vent Rate Inspired O2 Tidal Volume PEEP Pressure (ins/psv/peep) Critical Value Sodium Potassium Chloride Carbon Dioxide Anion Gap BUN Creatinine Est GFR ( Amer) Est GFR (Non-Af Amer) BUN/Creatinine Ratio Glucose POC Glucose 98 Calcium Magnesium Iron TIBC Iron Saturation Unsaturated IBC Ferritin Total Bilirubin AST ALT Alkaline Phosphatase Ammonia B-Natriuretic Peptide Total Protein Albumin Globulin Albumin/Globulin Ratio Vitamin B12 Folic Acid Helicobacter pylori Ab Blood Type Antibody Screen Crossmatch 06/23/17 06/23/17 06/23/17 06:20 07:18 07:18 WBC 6.3 RBC 2.93 L Hgb 7.8 L* Hct 24.1 L MCV 82.2 MCH 26.7 L MCHC Differential 32.5 RDW 13.5 Plt Count 413 H MPV 7.1 Neutrophils % 56.2 Band Neutrophils % Lymphocytes % 36.1 Monocytes % 5.5 Eosinophils % 1.8 Basophils % 0.4 Neutrophils (Manual) Lymphocytes Monocytes Eosinophils Hypochromia Platelet Estimate Polychromasia Schistocytes PT 10.4 INR 1.00 PTT (Actin FS) Specimen Source Sample Site pH pCO2 pO2 HCO3 Base Excess O2 Saturation Rashid Test Vent Rate Inspired O2 Tidal Volume PEEP Pressure (ins/psv/peep) Critical Value Sodium Potassium Chloride Carbon Dioxide Anion Gap BUN Creatinine Est GFR ( Amer) Est GFR (Non-Af Amer) BUN/Creatinine Ratio Glucose POC Glucose 154 H Calcium Magnesium Iron TIBC Iron Saturation Unsaturated IBC Ferritin Total Bilirubin AST ALT Alkaline Phosphatase Ammonia B-Natriuretic Peptide Total Protein Albumin Globulin Albumin/Globulin Ratio Vitamin B12 Folic Acid Helicobacter pylori Ab Blood Type Antibody Screen Crossmatch 06/23/17 06/23/17 06/23/17 07:18 09:50 10:50 WBC RBC Hgb Hct MCV MCH MCHC Differential RDW Plt Count MPV Neutrophils % Band Neutrophils % Lymphocytes % Monocytes % Eosinophils % Basophils % Neutrophils (Manual) Lymphocytes Monocytes Eosinophils Hypochromia Platelet Estimate Polychromasia Schistocytes PT INR PTT (Actin FS) Specimen Source Sample Site pH pCO2 pO2 HCO3 Base Excess O2 Saturation Rashid Test Vent Rate Inspired O2 Tidal Volume PEEP Pressure (ins/psv/peep) Critical Value Sodium 139 Potassium 3.1 L Chloride 102 Carbon Dioxide 29.7 Anion Gap 10.4 BUN 17 Creatinine 1.1 Est GFR ( Amer) TNP Est GFR (Non-Af Amer) TNP BUN/Creatinine Ratio 15.5 Glucose 177 H POC Glucose Calcium 8.4 L Magnesium Iron TIBC Iron Saturation Unsaturated IBC Ferritin Total Bilirubin AST ALT Alkaline Phosphatase Ammonia B-Natriuretic Peptide Total Protein Albumin Globulin Albumin/Globulin Ratio Vitamin B12 Folic Acid Helicobacter pylori Ab POSITIVE Blood Type O POSITIVE Antibody Screen NEGATIVE Crossmatch 06/23/17 06/23/17 06/23/17 11:07 13:30 16:22 WBC RBC Hgb Hct MCV MCH MCHC Differential RDW Plt Count MPV Neutrophils % Band Neutrophils % Lymphocytes % Monocytes % Eosinophils % Basophils % Neutrophils (Manual) Lymphocytes Monocytes Eosinophils Hypochromia Platelet Estimate Polychromasia Schistocytes PT 11.8 H INR 1.12 PTT (Actin FS) 26.1 Specimen Source Sample Site pH pCO2 pO2 HCO3 Base Excess O2 Saturation Rashid Test Vent Rate Inspired O2 Tidal Volume PEEP Pressure (ins/psv/peep) Critical Value Sodium Potassium Chloride Carbon Dioxide Anion Gap BUN Creatinine Est GFR ( Amer) Est GFR (Non-Af Amer) BUN/Creatinine Ratio Glucose POC Glucose 245 H 143 H Calcium Magnesium Iron TIBC Iron Saturation Unsaturated IBC Ferritin Total Bilirubin AST ALT Alkaline Phosphatase Ammonia B-Natriuretic Peptide Total Protein Albumin Globulin Albumin/Globulin Ratio Vitamin B12 Folic Acid Helicobacter pylori Ab Blood Type Antibody Screen Crossmatch 06/23/17 06/23/17 06/24/17 19:30 20:00 01:40 WBC RBC Hgb Hct MCV MCH MCHC Differential RDW Plt Count MPV Neutrophils % Band Neutrophils % Lymphocytes % Monocytes % Eosinophils % Basophils % Neutrophils (Manual) Lymphocytes Monocytes Eosinophils Hypochromia Platelet Estimate Polychromasia Schistocytes PT INR PTT (Actin FS) 37.9 36.1 Specimen Source Sample Site pH pCO2 pO2 HCO3 Base Excess O2 Saturation Rashid Test Vent Rate Inspired O2 Tidal Volume PEEP Pressure (ins/psv/peep) Critical Value Sodium Potassium Chloride Carbon Dioxide Anion Gap BUN Creatinine Est GFR ( Amer) Est GFR (Non-Af Amer) BUN/Creatinine Ratio Glucose POC Glucose 126 H Calcium Magnesium Iron TIBC Iron Saturation Unsaturated IBC Ferritin Total Bilirubin AST ALT Alkaline Phosphatase Ammonia B-Natriuretic Peptide Total Protein Albumin Globulin Albumin/Globulin Ratio Vitamin B12 Folic Acid Helicobacter pylori Ab Blood Type Antibody Screen Crossmatch 06/24/17 06/24/17 06/24/17 06:13 07:30 07:30 WBC RBC Hgb Hct MCV MCH MCHC Differential RDW Plt Count MPV Neutrophils % Band Neutrophils % Lymphocytes % Monocytes % Eosinophils % Basophils % Neutrophils (Manual) Lymphocytes Monocytes Eosinophils Hypochromia Platelet Estimate Polychromasia Schistocytes PT 11.1 INR 1.07 PTT (Actin FS) 48.3 H Specimen Source Sample Site pH pCO2 pO2 HCO3 Base Excess O2 Saturation Rashid Test Vent Rate Inspired O2 Tidal Volume PEEP Pressure (ins/psv/peep) Critical Value Sodium Potassium Chloride Carbon Dioxide Anion Gap BUN Creatinine Est GFR ( Amer) Est GFR (Non-Af Amer) BUN/Creatinine Ratio Glucose POC Glucose 141 H Calcium Magnesium Iron TIBC Iron Saturation Unsaturated IBC Ferritin Total Bilirubin AST ALT Alkaline Phosphatase Ammonia B-Natriuretic Peptide Total Protein Albumin Globulin Albumin/Globulin Ratio Vitamin B12 Folic Acid Helicobacter pylori Ab Blood Type Antibody Screen Crossmatch 06/24/17 06/24/17 06/24/17 11:36 14:55 14:55 WBC 7.5 RBC 2.86 L Hgb 7.7 L* Hct 24.0 L MCV 83.6 MCH 26.8 L MCHC Differential 32.1 RDW 13.8 Plt Count 445 H MPV 7.1 Neutrophils % 70.5 Band Neutrophils % Lymphocytes % 24.9 Monocytes % 3.3 Eosinophils % 0.7 Basophils % 0.6 Neutrophils (Manual) Lymphocytes Monocytes Eosinophils Hypochromia Platelet Estimate Polychromasia Schistocytes PT 11.6 H INR 1.11 PTT (Actin FS) 45.2 H Specimen Source Sample Site pH pCO2 pO2 HCO3 Base Excess O2 Saturation Rashid Test Vent Rate Inspired O2 Tidal Volume PEEP Pressure (ins/psv/peep) Critical Value Sodium Potassium Chloride Carbon Dioxide Anion Gap BUN Creatinine Est GFR ( Amer) Est GFR (Non-Af Amer) BUN/Creatinine Ratio Glucose POC Glucose 198 H Calcium Magnesium Iron TIBC Iron Saturation Unsaturated IBC Ferritin Total Bilirubin AST ALT Alkaline Phosphatase Ammonia B-Natriuretic Peptide Total Protein Albumin Globulin Albumin/Globulin Ratio Vitamin B12 Folic Acid Helicobacter pylori Ab Blood Type Antibody Screen Crossmatch 06/24/17 06/24/17 06/24/17 17:45 21:16 22:06 WBC RBC Hgb Hct MCV MCH MCHC Differential RDW Plt Count MPV Neutrophils % Band Neutrophils % Lymphocytes % Monocytes % Eosinophils % Basophils % Neutrophils (Manual) Lymphocytes Monocytes Eosinophils Hypochromia Platelet Estimate Polychromasia Schistocytes PT INR PTT (Actin FS) 47.4 H Specimen Source Sample Site pH pCO2 pO2 HCO3 Base Excess O2 Saturation Rashid Test Vent Rate Inspired O2 Tidal Volume PEEP Pressure (ins/psv/peep) Critical Value Sodium Potassium Chloride Carbon Dioxide Anion Gap BUN Creatinine Est GFR ( Amer) Est GFR (Non-Af Amer) BUN/Creatinine Ratio Glucose POC Glucose 200 H 257 H Calcium Magnesium Iron TIBC Iron Saturation Unsaturated IBC Ferritin Total Bilirubin AST ALT Alkaline Phosphatase Ammonia B-Natriuretic Peptide Total Protein Albumin Globulin Albumin/Globulin Ratio Vitamin B12 Folic Acid Helicobacter pylori Ab Blood Type Antibody Screen Crossmatch 06/25/17 06/25/17 06/25/17 04:00 04:00 04:00 WBC 8.3 RBC 2.63 L Hgb 7.2 L* Hct 21.7 L MCV 82.4 MCH 27.3 MCHC Differential 33.1 RDW 13.4 Plt Count 455 H MPV 7.0 Neutrophils % 60.8 Band Neutrophils % Lymphocytes % 31.8 Monocytes % 5.8 Eosinophils % 1.2 Basophils % 0.4 Neutrophils (Manual) Lymphocytes Monocytes Eosinophils Hypochromia Platelet Estimate Polychromasia Schistocytes PT 11.6 H INR 1.11 PTT (Actin FS) Specimen Source Sample Site pH pCO2 pO2 HCO3 Base Excess O2 Saturation Rashid Test Vent Rate Inspired O2 Tidal Volume PEEP Pressure (ins/psv/peep) Critical Value Sodium 141 Potassium 3.2 L Chloride 107 Carbon Dioxide 27.5 Anion Gap 9.7 BUN 10 Creatinine 1.0 Est GFR ( Amer) TNP Est GFR (Non-Af Amer) TNP BUN/Creatinine Ratio 10.0 Glucose 129 H POC Glucose Calcium 8.1 L Magnesium Iron TIBC Iron Saturation Unsaturated IBC Ferritin Total Bilirubin AST ALT Alkaline Phosphatase Ammonia B-Natriuretic Peptide Total Protein Albumin Globulin Albumin/Globulin Ratio Vitamin B12 Folic Acid Helicobacter pylori Ab Blood Type Antibody Screen Crossmatch 06/25/17 06/25/17 06/25/17 04:00 05:22 12:27 WBC RBC Hgb Hct MCV MCH MCHC Differential RDW Plt Count MPV Neutrophils % Band Neutrophils % Lymphocytes % Monocytes % Eosinophils % Basophils % Neutrophils (Manual) Lymphocytes Monocytes Eosinophils Hypochromia Platelet Estimate Polychromasia Schistocytes PT INR PTT (Actin FS) 48.3 H Specimen Source Sample Site pH pCO2 pO2 HCO3 Base Excess O2 Saturation Rashid Test Vent Rate Inspired O2 Tidal Volume PEEP Pressure (ins/psv/peep) Critical Value Sodium Potassium Chloride Carbon Dioxide Anion Gap BUN Creatinine Est GFR ( Amer) Est GFR (Non-Af Amer) BUN/Creatinine Ratio Glucose POC Glucose 123 H 152 H Calcium Magnesium Iron TIBC Iron Saturation Unsaturated IBC Ferritin Total Bilirubin AST ALT Alkaline Phosphatase Ammonia B-Natriuretic Peptide Total Protein Albumin Globulin Albumin/Globulin Ratio Vitamin B12 Folic Acid Helicobacter pylori Ab Blood Type Antibody Screen Crossmatch 06/25/17 06/25/17 06/26/17 16:47 20:47 05:53 WBC RBC Hgb Hct MCV MCH MCHC Differential RDW Plt Count MPV Neutrophils % Band Neutrophils % Lymphocytes % Monocytes % Eosinophils % Basophils % Neutrophils (Manual) Lymphocytes Monocytes Eosinophils Hypochromia Platelet Estimate Polychromasia Schistocytes PT INR PTT (Actin FS) Specimen Source Sample Site pH pCO2 pO2 HCO3 Base Excess O2 Saturation Rashid Test Vent Rate Inspired O2 Tidal Volume PEEP Pressure (ins/psv/peep) Critical Value Sodium Potassium Chloride Carbon Dioxide Anion Gap BUN Creatinine Est GFR ( Amer) Est GFR (Non-Af Amer) BUN/Creatinine Ratio Glucose POC Glucose 178 H 212 H 108 H Calcium Magnesium Iron TIBC Iron Saturation Unsaturated IBC Ferritin Total Bilirubin AST ALT Alkaline Phosphatase Ammonia B-Natriuretic Peptide Total Protein Albumin Globulin Albumin/Globulin Ratio Vitamin B12 Folic Acid Helicobacter pylori Ab Blood Type Antibody Screen Crossmatch 06/26/17 06/26/17 06/26/17 07:37 07:37 10:15 WBC 7.4 RBC 2.57 L Hgb 6.8 L* Hct 21.1 L MCV 82.3 MCH 26.6 L MCHC Differential 32.3 RDW 13.7 Plt Count 402 H MPV 6.9 Neutrophils % 55.1 Band Neutrophils % Lymphocytes % 36.8 Monocytes % 5.4 Eosinophils % 2.4 Basophils % 0.3 Neutrophils (Manual) Lymphocytes Monocytes Eosinophils Hypochromia Platelet Estimate Polychromasia Schistocytes PT 12.1 H INR 1.15 PTT (Actin FS) 47.3 H Specimen Source Sample Site pH pCO2 pO2 HCO3 Base Excess O2 Saturation Rashid Test Vent Rate Inspired O2 Tidal Volume PEEP Pressure (ins/psv/peep) Critical Value Sodium Potassium Chloride Carbon Dioxide Anion Gap BUN Creatinine Est GFR ( Amer) Est GFR (Non-Af Amer) BUN/Creatinine Ratio Glucose POC Glucose Calcium Magnesium Iron TIBC Iron Saturation Unsaturated IBC Ferritin Total Bilirubin AST ALT Alkaline Phosphatase Ammonia B-Natriuretic Peptide Total Protein Albumin Globulin Albumin/Globulin Ratio Vitamin B12 Folic Acid Helicobacter pylori Ab Blood Type O POSITIVE Antibody Screen NEGATIVE Crossmatch See Detail 06/26/17 06/26/17 06/26/17 17:46 21:31 21:31 WBC 9.8 D RBC 3.11 L Hgb 8.4 L Hct 25.8 L D MCV 83.1 MCH 27.1 MCHC Differential 32.7 RDW 13.8 Plt Count 422 H MPV 7.0 Neutrophils % 70.5 Band Neutrophils % Lymphocytes % 24.5 Monocytes % 4.2 Eosinophils % 0.6 Basophils % 0.2 Neutrophils (Manual) Lymphocytes Monocytes Eosinophils Hypochromia Platelet Estimate Polychromasia Schistocytes PT INR PTT (Actin FS) 27.0 Specimen Source Sample Site pH pCO2 pO2 HCO3 Base Excess O2 Saturation Rashid Test Vent Rate Inspired O2 Tidal Volume PEEP Pressure (ins/psv/peep) Critical Value Sodium Potassium Chloride Carbon Dioxide Anion Gap BUN Creatinine Est GFR ( Amer) Est GFR (Non-Af Amer) BUN/Creatinine Ratio Glucose POC Glucose 207 H Calcium Magnesium Iron TIBC Iron Saturation Unsaturated IBC Ferritin Total Bilirubin AST ALT Alkaline Phosphatase Ammonia B-Natriuretic Peptide Total Protein Albumin Globulin Albumin/Globulin Ratio Vitamin B12 Folic Acid Helicobacter pylori Ab Blood Type Antibody Screen Crossmatch 06/26/17 06/27/17 06/27/17 21:32 05:43 05:43 WBC 9.6 RBC 2.98 L Hgb 8.0 L Hct 24.9 L MCV 83.6 MCH 26.8 L MCHC Differential 32.1 RDW 13.6 Plt Count 400 MPV 7.0 Neutrophils % 66.5 Band Neutrophils % Lymphocytes % 25.7 Monocytes % 5.9 Eosinophils % 1.4 Basophils % 0.5 Neutrophils (Manual) Lymphocytes Monocytes Eosinophils Hypochromia Platelet Estimate Polychromasia Schistocytes PT INR PTT (Actin FS) Specimen Source Sample Site pH pCO2 pO2 HCO3 Base Excess O2 Saturation Rashid Test Vent Rate Inspired O2 Tidal Volume PEEP Pressure (ins/psv/peep) Critical Value Sodium 139 Potassium 3.3 L Chloride 107 Carbon Dioxide 27.7 Anion Gap 7.6 BUN 9 Creatinine 1.1 Est GFR ( Amer) TNP Est GFR (Non-Af Amer) TNP BUN/Creatinine Ratio 8.2 Glucose 178 H POC Glucose 226 H Calcium 8.2 L Magnesium Iron TIBC Iron Saturation Unsaturated IBC Ferritin Total Bilirubin 0.3 AST 22 ALT 16 Alkaline Phosphatase 71 Ammonia B-Natriuretic Peptide Total Protein 5.9 L Albumin 2.4 L Globulin 3.5 Albumin/Globulin Ratio 0.7 L Vitamin B12 Folic Acid Helicobacter pylori Ab Blood Type Antibody Screen Crossmatch 06/27/17 06/27/17 06/27/17 05:43 06:24 12:15 WBC RBC Hgb Hct MCV MCH MCHC Differential RDW Plt Count MPV Neutrophils % Band Neutrophils % Lymphocytes % Monocytes % Eosinophils % Basophils % Neutrophils (Manual) Lymphocytes Monocytes Eosinophils Hypochromia Platelet Estimate Polychromasia Schistocytes PT 10.9 INR 1.05 PTT (Actin FS) 25.4 L Specimen Source Sample Site pH pCO2 pO2 HCO3 Base Excess O2 Saturation Rashid Test Vent Rate Inspired O2 Tidal Volume PEEP Pressure (ins/psv/peep) Critical Value Sodium Potassium Chloride Carbon Dioxide Anion Gap BUN Creatinine Est GFR ( Amer) Est GFR (Non-Af Amer) BUN/Creatinine Ratio Glucose POC Glucose 163 H 230 H Calcium Magnesium Iron TIBC Iron Saturation Unsaturated IBC Ferritin Total Bilirubin AST ALT Alkaline Phosphatase Ammonia B-Natriuretic Peptide Total Protein Albumin Globulin Albumin/Globulin Ratio Vitamin B12 Folic Acid Helicobacter pylori Ab Blood Type Antibody Screen Crossmatch 06/27/17 06/27/17 06/28/17 16:48 21:50 04:10 WBC 12.6 H D RBC 3.06 L Hgb 8.3 L Hct 25.3 L MCV 82.8 MCH 27.0 MCHC Differential 32.6 RDW 14.4 Plt Count 463 H MPV 7.7 Neutrophils % 83.5 H Band Neutrophils % Lymphocytes % 12.8 L Monocytes % 3.5 Eosinophils % 0.1 Basophils % 0.1 Neutrophils (Manual) Lymphocytes Monocytes Eosinophils Hypochromia Platelet Estimate Polychromasia Schistocytes PT INR PTT (Actin FS) Specimen Source Sample Site pH pCO2 pO2 HCO3 Base Excess O2 Saturation Rashid Test Vent Rate Inspired O2 Tidal Volume PEEP Pressure (ins/psv/peep) Critical Value Sodium Potassium Chloride Carbon Dioxide Anion Gap BUN Creatinine Est GFR ( Amer) Est GFR (Non-Af Amer) BUN/Creatinine Ratio Glucose POC Glucose 183 H 220 H Calcium Magnesium Iron TIBC Iron Saturation Unsaturated IBC Ferritin Total Bilirubin AST ALT Alkaline Phosphatase Ammonia B-Natriuretic Peptide Total Protein Albumin Globulin Albumin/Globulin Ratio Vitamin B12 Folic Acid Helicobacter pylori Ab Blood Type Antibody Screen Crossmatch 06/28/17 06/28/17 06/28/17 04:10 04:10 04:10 WBC RBC Hgb Hct MCV MCH MCHC Differential RDW Plt Count MPV Neutrophils % Band Neutrophils % Lymphocytes % Monocytes % Eosinophils % Basophils % Neutrophils (Manual) Lymphocytes Monocytes Eosinophils Hypochromia Platelet Estimate Polychromasia Schistocytes PT 11.8 H INR 1.12 PTT (Actin FS) 26.7 Specimen Source Sample Site pH pCO2 pO2 HCO3 Base Excess O2 Saturation Rashid Test Vent Rate Inspired O2 Tidal Volume PEEP Pressure (ins/psv/peep) Critical Value Sodium 141 Potassium 4.3 Chloride 110 H Carbon Dioxide 24.0 Anion Gap 11.3 BUN 14 Creatinine 1.5 H Est GFR ( Amer) TNP Est GFR (Non-Af Amer) TNP BUN/Creatinine Ratio 9.3 Glucose 212 H POC Glucose Calcium 8.3 L Magnesium 1.4 L Iron TIBC Iron Saturation Unsaturated IBC Ferritin Total Bilirubin 0.2 L AST 24 ALT 19 Alkaline Phosphatase 66 Ammonia B-Natriuretic Peptide 115.0 H Total Protein 5.6 L Albumin 2.3 L Globulin 3.3 Albumin/Globulin Ratio 0.7 L Vitamin B12 Folic Acid Helicobacter pylori Ab Blood Type Antibody Screen Crossmatch 06/28/17 06/28/17 06/28/17 06:52 07:48 10:55 WBC RBC Hgb Hct MCV MCH MCHC Differential RDW Plt Count MPV Neutrophils % Band Neutrophils % Lymphocytes % Monocytes % Eosinophils % Basophils % Neutrophils (Manual) Lymphocytes Monocytes Eosinophils Hypochromia Platelet Estimate Polychromasia Schistocytes PT INR PTT (Actin FS) Specimen Source Arterial Arterial Sample Site LB Right Radial pH 7.44 7.44 pCO2 36.0 36.0 pO2 89.0 100.0 HCO3 25.4 25.4 Base Excess 0.6 0.6 O2 Saturation 97.0 98.0 Rashid Test Positive Vent Rate 10 N/A Inspired O2 40 28 Tidal Volume 500 N/A PEEP N/A Pressure (ins/psv/peep) N/A Critical Value PW DM Sodium Potassium Chloride Carbon Dioxide Anion Gap BUN Creatinine Est GFR ( Amer) Est GFR (Non-Af Amer) BUN/Creatinine Ratio Glucose POC Glucose 203 H Calcium Magnesium Iron TIBC Iron Saturation Unsaturated IBC Ferritin Total Bilirubin AST ALT Alkaline Phosphatase Ammonia B-Natriuretic Peptide Total Protein Albumin Globulin Albumin/Globulin Ratio Vitamin B12 Folic Acid Helicobacter pylori Ab Blood Type Antibody Screen Crossmatch 06/28/17 06/28/17 06/28/17 15:50 16:35 21:46 WBC RBC Hgb Hct MCV MCH MCHC Differential RDW Plt Count MPV Neutrophils % Band Neutrophils % Lymphocytes % Monocytes % Eosinophils % Basophils % Neutrophils (Manual) Lymphocytes Monocytes Eosinophils Hypochromia Platelet Estimate Polychromasia Schistocytes PT INR PTT (Actin FS) Specimen Source Sample Site pH pCO2 pO2 HCO3 Base Excess O2 Saturation Rashid Test Vent Rate Inspired O2 Tidal Volume PEEP Pressure (ins/psv/peep) Critical Value Sodium Potassium Chloride Carbon Dioxide Anion Gap BUN Creatinine Est GFR ( Amer) Est GFR (Non-Af Amer) BUN/Creatinine Ratio Glucose POC Glucose 202 H 172 H 202 H Calcium Magnesium Iron TIBC Iron Saturation Unsaturated IBC Ferritin Total Bilirubin AST ALT Alkaline Phosphatase Ammonia B-Natriuretic Peptide Total Protein Albumin Globulin Albumin/Globulin Ratio Vitamin B12 Folic Acid Helicobacter pylori Ab Blood Type Antibody Screen Crossmatch 06/28/17 06/29/17 06/29/17 22:45 04:30 04:30 WBC 13.6 H RBC 3.05 L Hgb 8.2 L Hct 25.8 L MCV 84.5 MCH 26.9 L MCHC Differential 31.9 RDW 14.8 Plt Count 486 H MPV 7.5 Neutrophils % 84.4 H Band Neutrophils % Lymphocytes % 9.8 L Monocytes % 5.3 Eosinophils % 0.1 Basophils % 0.4 Neutrophils (Manual) Lymphocytes Monocytes Eosinophils Hypochromia Platelet Estimate Polychromasia Schistocytes PT INR PTT (Actin FS) 33.5 Specimen Source Sample Site pH pCO2 pO2 HCO3 Base Excess O2 Saturation Rashid Test Vent Rate Inspired O2 Tidal Volume PEEP Pressure (ins/psv/peep) Critical Value Sodium 142 Potassium 3.6 Chloride 111 H Carbon Dioxide 23.9 Anion Gap 10.7 BUN 19 Creatinine 1.6 H Est GFR ( Amer) TNP Est GFR (Non-Af Amer) TNP BUN/Creatinine Ratio 11.9 Glucose 166 H POC Glucose Calcium 8.7 Magnesium 2.0 Iron TIBC Iron Saturation Unsaturated IBC Ferritin Total Bilirubin AST ALT Alkaline Phosphatase Ammonia B-Natriuretic Peptide Total Protein Albumin Globulin Albumin/Globulin Ratio Vitamin B12 Folic Acid Helicobacter pylori Ab Blood Type Antibody Screen Crossmatch 06/29/17 06/29/17 06/29/17 04:30 04:30 06:21 WBC RBC Hgb Hct MCV MCH MCHC Differential RDW Plt Count MPV Neutrophils % Band Neutrophils % Lymphocytes % Monocytes % Eosinophils % Basophils % Neutrophils (Manual) Lymphocytes Monocytes Eosinophils Hypochromia Platelet Estimate Polychromasia Schistocytes PT INR PTT (Actin FS) 40.9 H Specimen Source Sample Site pH pCO2 pO2 HCO3 Base Excess O2 Saturation Rashid Test Vent Rate Inspired O2 Tidal Volume PEEP Pressure (ins/psv/peep) Critical Value Sodium Potassium Chloride Carbon Dioxide Anion Gap BUN Creatinine Est GFR ( Amer) Est GFR (Non-Af Amer) BUN/Creatinine Ratio Glucose POC Glucose 172 H Calcium Magnesium Iron TIBC Iron Saturation Unsaturated IBC Ferritin Total Bilirubin AST ALT Alkaline Phosphatase Ammonia B-Natriuretic Peptide 175.0 H Total Protein Albumin Globulin Albumin/Globulin Ratio Vitamin B12 Folic Acid Helicobacter pylori Ab Blood Type Antibody Screen Crossmatch 06/29/17 06/29/17 06/29/17 11:08 15:15 16:27 WBC RBC Hgb Hct MCV MCH MCHC Differential RDW Plt Count MPV Neutrophils % Band Neutrophils % Lymphocytes % Monocytes % Eosinophils % Basophils % Neutrophils (Manual) Lymphocytes Monocytes Eosinophils Hypochromia Platelet Estimate Polychromasia Schistocytes PT INR PTT (Actin FS) 27.9 Specimen Source Sample Site pH pCO2 pO2 HCO3 Base Excess O2 Saturation Rashid Test Vent Rate Inspired O2 Tidal Volume PEEP Pressure (ins/psv/peep) Critical Value Sodium Potassium Chloride Carbon Dioxide Anion Gap BUN Creatinine Est GFR ( Amer) Est GFR (Non-Af Amer) BUN/Creatinine Ratio Glucose POC Glucose 206 H 198 H Calcium Magnesium Iron TIBC Iron Saturation Unsaturated IBC Ferritin Total Bilirubin AST ALT Alkaline Phosphatase Ammonia B-Natriuretic Peptide Total Protein Albumin Globulin Albumin/Globulin Ratio Vitamin B12 Folic Acid Helicobacter pylori Ab Blood Type Antibody Screen Crossmatch 06/29/17 06/29/17 06/29/17 16:55 23:10 23:48 WBC RBC Hgb Hct MCV MCH MCHC Differential RDW Plt Count MPV Neutrophils % Band Neutrophils % Lymphocytes % Monocytes % Eosinophils % Basophils % Neutrophils (Manual) Lymphocytes Monocytes Eosinophils Hypochromia Platelet Estimate Polychromasia Schistocytes PT INR PTT (Actin FS) 28.7 29.1 Specimen Source Sample Site pH pCO2 pO2 HCO3 Base Excess O2 Saturation Rashid Test Vent Rate Inspired O2 Tidal Volume PEEP Pressure (ins/psv/peep) Critical Value Sodium Potassium Chloride Carbon Dioxide Anion Gap BUN Creatinine Est GFR ( Amer) Est GFR (Non-Af Amer) BUN/Creatinine Ratio Glucose POC Glucose 194 H Calcium Magnesium Iron TIBC Iron Saturation Unsaturated IBC Ferritin Total Bilirubin AST ALT Alkaline Phosphatase Ammonia B-Natriuretic Peptide Total Protein Albumin Globulin Albumin/Globulin Ratio Vitamin B12 Folic Acid Helicobacter pylori Ab Blood Type Antibody Screen Crossmatch 06/30/17 06/30/17 06/30/17 03:52 03:52 03:52 WBC 18.2 H D RBC 2.88 L Hgb 8.1 L Hct 24.5 L MCV 85.1 MCH 28.2 MCHC Differential 33.2 RDW 15.5 Plt Count 485 H MPV 7.9 Neutrophils % Band Neutrophils % 7 Lymphocytes % Monocytes % Eosinophils % Basophils % Neutrophils (Manual) 86 H Lymphocytes 5 L Monocytes 2 Eosinophils Hypochromia Platelet Estimate ADEQUATE Polychromasia Schistocytes PT INR PTT (Actin FS) Specimen Source Sample Site pH pCO2 pO2 HCO3 Base Excess O2 Saturation Rashid Test Vent Rate Inspired O2 Tidal Volume PEEP Pressure (ins/psv/peep) Critical Value Sodium 144 Potassium 3.4 L Chloride 113 H Carbon Dioxide 23.2 Anion Gap 11.2 BUN 20 Creatinine 1.7 H Est GFR ( Amer) TNP Est GFR (Non-Af Amer) TNP BUN/Creatinine Ratio 11.8 Glucose 201 H POC Glucose Calcium 8.9 Magnesium 2.0 Iron TIBC Iron Saturation Unsaturated IBC Ferritin Total Bilirubin AST ALT Alkaline Phosphatase Ammonia 36 B-Natriuretic Peptide Total Protein Albumin Globulin Albumin/Globulin Ratio Vitamin B12 Folic Acid Helicobacter pylori Ab Blood Type Antibody Screen Crossmatch 06/30/17 06/30/17 06/30/17 03:52 03:52 06:30 WBC RBC Hgb Hct MCV MCH MCHC Differential RDW Plt Count MPV Neutrophils % Band Neutrophils % Lymphocytes % Monocytes % Eosinophils % Basophils % Neutrophils (Manual) Lymphocytes Monocytes Eosinophils Hypochromia Platelet Estimate Polychromasia Schistocytes PT INR PTT (Actin FS) 29.9 Specimen Source Sample Site pH pCO2 pO2 HCO3 Base Excess O2 Saturation Rashid Test Vent Rate Inspired O2 Tidal Volume PEEP Pressure (ins/psv/peep) Critical Value Sodium Potassium Chloride Carbon Dioxide Anion Gap BUN Creatinine Est GFR ( Amer) Est GFR (Non-Af Amer) BUN/Creatinine Ratio Glucose POC Glucose 196 H Calcium Magnesium Iron TIBC Iron Saturation Unsaturated IBC Ferritin Total Bilirubin AST ALT Alkaline Phosphatase Ammonia B-Natriuretic Peptide 150.0 H Total Protein Albumin Globulin Albumin/Globulin Ratio Vitamin B12 Folic Acid Helicobacter pylori Ab Blood Type Antibody Screen Crossmatch 06/30/17 06/30/17 06/30/17 10:00 11:32 16:33 WBC RBC Hgb Hct MCV MCH MCHC Differential RDW Plt Count MPV Neutrophils % Band Neutrophils % Lymphocytes % Monocytes % Eosinophils % Basophils % Neutrophils (Manual) Lymphocytes Monocytes Eosinophils Hypochromia Platelet Estimate Polychromasia Schistocytes PT INR PTT (Actin FS) 38.8 H Specimen Source Sample Site pH pCO2 pO2 HCO3 Base Excess O2 Saturation Rashid Test Vent Rate Inspired O2 Tidal Volume PEEP Pressure (ins/psv/peep) Critical Value Sodium Potassium Chloride Carbon Dioxide Anion Gap BUN Creatinine Est GFR ( Amer) Est GFR (Non-Af Amer) BUN/Creatinine Ratio Glucose POC Glucose 207 H 175 H Calcium Magnesium Iron TIBC Iron Saturation Unsaturated IBC Ferritin Total Bilirubin AST ALT Alkaline Phosphatase Ammonia B-Natriuretic Peptide Total Protein Albumin Globulin Albumin/Globulin Ratio Vitamin B12 Folic Acid Helicobacter pylori Ab Blood Type Antibody Screen Crossmatch 06/30/17 06/30/17 07/01/17 18:19 20:48 00:10 WBC RBC Hgb Hct MCV MCH MCHC Differential RDW Plt Count MPV Neutrophils % Band Neutrophils % Lymphocytes % Monocytes % Eosinophils % Basophils % Neutrophils (Manual) Lymphocytes Monocytes Eosinophils Hypochromia Platelet Estimate Polychromasia Schistocytes PT INR PTT (Actin FS) 118.8 H* 43.4 H Specimen Source Sample Site pH pCO2 pO2 HCO3 Base Excess O2 Saturation Rashid Test Vent Rate Inspired O2 Tidal Volume PEEP Pressure (ins/psv/peep) Critical Value Sodium Potassium Chloride Carbon Dioxide Anion Gap BUN Creatinine Est GFR ( Amer) Est GFR (Non-Af Amer) BUN/Creatinine Ratio Glucose POC Glucose 129 H Calcium Magnesium Iron TIBC Iron Saturation Unsaturated IBC Ferritin Total Bilirubin AST ALT Alkaline Phosphatase Ammonia B-Natriuretic Peptide Total Protein Albumin Globulin Albumin/Globulin Ratio Vitamin B12 Folic Acid Helicobacter pylori Ab Blood Type Antibody Screen Crossmatch 07/01/17 07/01/17 07/01/17 05:13 08:40 08:40 WBC 12.7 H D RBC 2.88 L Hgb 7.8 L* Hct 24.1 L MCV 83.8 MCH 27.0 MCHC Differential 32.2 RDW 15.3 Plt Count 501 H MPV 7.4 Neutrophils % 83.6 H Band Neutrophils % Lymphocytes % 11.5 L Monocytes % 4.3 Eosinophils % 0.4 Basophils % 0.2 Neutrophils (Manual) Lymphocytes Monocytes Eosinophils Hypochromia Platelet Estimate Polychromasia Schistocytes PT INR PTT (Actin FS) Specimen Source Sample Site pH pCO2 pO2 HCO3 Base Excess O2 Saturation Rashid Test Vent Rate Inspired O2 Tidal Volume PEEP Pressure (ins/psv/peep) Critical Value Sodium 147 H Potassium 3.2 L Chloride 113 H Carbon Dioxide 25.3 Anion Gap 11.9 BUN 18 Creatinine 1.9 H Est GFR ( Amer) TNP Est GFR (Non-Af Amer) TNP BUN/Creatinine Ratio 9.5 Glucose 178 H POC Glucose 150 H Calcium 8.6 Magnesium Iron TIBC Iron Saturation Unsaturated IBC Ferritin Total Bilirubin AST ALT Alkaline Phosphatase Ammonia B-Natriuretic Peptide Total Protein Albumin Globulin Albumin/Globulin Ratio Vitamin B12 Folic Acid Helicobacter pylori Ab Blood Type Antibody Screen Crossmatch 07/01/17 07/01/17 07/01/17 08:40 08:40 11:44 WBC RBC Hgb Hct MCV MCH MCHC Differential RDW Plt Count MPV Neutrophils % Band Neutrophils % Lymphocytes % Monocytes % Eosinophils % Basophils % Neutrophils (Manual) Lymphocytes Monocytes Eosinophils Hypochromia Platelet Estimate Polychromasia Schistocytes PT INR PTT (Actin FS) 40.0 H Specimen Source Sample Site pH pCO2 pO2 HCO3 Base Excess O2 Saturation Rashid Test Vent Rate Inspired O2 Tidal Volume PEEP Pressure (ins/psv/peep) Critical Value Sodium Potassium Chloride Carbon Dioxide Anion Gap BUN Creatinine Est GFR ( Amer) Est GFR (Non-Af Amer) BUN/Creatinine Ratio Glucose POC Glucose 168 H Calcium Magnesium Iron TIBC Iron Saturation Unsaturated IBC Ferritin Total Bilirubin AST ALT Alkaline Phosphatase Ammonia B-Natriuretic Peptide 187.0 H Total Protein Albumin Globulin Albumin/Globulin Ratio Vitamin B12 Folic Acid Helicobacter pylori Ab Blood Type Antibody Screen Crossmatch 07/01/17 07/01/17 07/01/17 12:00 17:08 21:14 WBC RBC Hgb Hct MCV MCH MCHC Differential RDW Plt Count MPV Neutrophils % Band Neutrophils % Lymphocytes % Monocytes % Eosinophils % Basophils % Neutrophils (Manual) Lymphocytes Monocytes Eosinophils Hypochromia Platelet Estimate Polychromasia Schistocytes PT INR PTT (Actin FS) 39.0 H Specimen Source Sample Site pH pCO2 pO2 HCO3 Base Excess O2 Saturation Rashid Test Vent Rate Inspired O2 Tidal Volume PEEP Pressure (ins/psv/peep) Critical Value Sodium Potassium Chloride Carbon Dioxide Anion Gap BUN Creatinine Est GFR ( Amer) Est GFR (Non-Af Amer) BUN/Creatinine Ratio Glucose POC Glucose 173 H 151 H Calcium Magnesium Iron TIBC Iron Saturation Unsaturated IBC Ferritin Total Bilirubin AST ALT Alkaline Phosphatase Ammonia B-Natriuretic Peptide Total Protein Albumin Globulin Albumin/Globulin Ratio Vitamin B12 Folic Acid Helicobacter pylori Ab Blood Type Antibody Screen Crossmatch 07/02/17 07/02/17 07/02/17 03:41 03:41 03:41 WBC 11.3 H RBC 2.88 L Hgb 7.9 L* Hct 24.4 L MCV 84.6 MCH 27.6 MCHC Differential 32.6 RDW 15.5 Plt Count 511 H MPV 7.6 Neutrophils % 77.6 Band Neutrophils % Lymphocytes % 14.2 L Monocytes % 6.8 Eosinophils % 1.1 Basophils % 0.3 Neutrophils (Manual) Lymphocytes Monocytes Eosinophils Hypochromia Platelet Estimate Polychromasia Schistocytes PT INR PTT (Actin FS) Specimen Source Sample Site pH pCO2 pO2 HCO3 Base Excess O2 Saturation Rashid Test Vent Rate Inspired O2 Tidal Volume PEEP Pressure (ins/psv/peep) Critical Value Sodium Potassium Chloride Carbon Dioxide Anion Gap BUN Creatinine Est GFR ( Amer) Est GFR (Non-Af Amer) BUN/Creatinine Ratio Glucose POC Glucose Calcium Magnesium Iron TIBC Iron Saturation Unsaturated IBC Ferritin Total Bilirubin AST ALT Alkaline Phosphatase Ammonia 38 B-Natriuretic Peptide Total Protein Albumin Globulin Albumin/Globulin Ratio Vitamin B12 1797 H Folic Acid 10.3 Helicobacter pylori Ab Blood Type Antibody Screen Crossmatch 07/02/17 07/02/17 07/02/17 03:41 03:41 05:44 WBC RBC Hgb Hct MCV MCH MCHC Differential RDW Plt Count MPV Neutrophils % Band Neutrophils % Lymphocytes % Monocytes % Eosinophils % Basophils % Neutrophils (Manual) Lymphocytes Monocytes Eosinophils Hypochromia Platelet Estimate Polychromasia Schistocytes PT INR PTT (Actin FS) 29.1 Specimen Source Sample Site pH pCO2 pO2 HCO3 Base Excess O2 Saturation Rashid Test Vent Rate Inspired O2 Tidal Volume PEEP Pressure (ins/psv/peep) Critical Value Sodium 148 H Potassium 3.8 Chloride 115 H Carbon Dioxide 25.1 Anion Gap 11.7 BUN 17 Creatinine 1.7 H Est GFR ( Amer) TNP Est GFR (Non-Af Amer) TNP BUN/Creatinine Ratio 10.0 Glucose 164 H POC Glucose 153 H Calcium 8.4 L Magnesium 1.8 L Iron TIBC Iron Saturation Unsaturated IBC Ferritin Total Bilirubin AST ALT Alkaline Phosphatase Ammonia B-Natriuretic Peptide Total Protein Albumin Globulin Albumin/Globulin Ratio Vitamin B12 Folic Acid Helicobacter pylori Ab Blood Type Antibody Screen Crossmatch 07/02/17 07/02/17 07/02/17 11:41 17:11 21:20 WBC RBC Hgb Hct MCV MCH MCHC Differential RDW Plt Count MPV Neutrophils % Band Neutrophils % Lymphocytes % Monocytes % Eosinophils % Basophils % Neutrophils (Manual) Lymphocytes Monocytes Eosinophils Hypochromia Platelet Estimate Polychromasia Schistocytes PT INR PTT (Actin FS) Specimen Source Sample Site pH pCO2 pO2 HCO3 Base Excess O2 Saturation Rashid Test Vent Rate Inspired O2 Tidal Volume PEEP Pressure (ins/psv/peep) Critical Value Sodium Potassium Chloride Carbon Dioxide Anion Gap BUN Creatinine Est GFR ( Amer) Est GFR (Non-Af Amer) BUN/Creatinine Ratio Glucose POC Glucose 162 H 151 H 142 H Calcium Magnesium Iron TIBC Iron Saturation Unsaturated IBC Ferritin Total Bilirubin AST ALT Alkaline Phosphatase Ammonia B-Natriuretic Peptide Total Protein Albumin Globulin Albumin/Globulin Ratio Vitamin B12 Folic Acid Helicobacter pylori Ab Blood Type Antibody Screen Crossmatch 07/03/17 07/03/17 07/03/17 03:53 03:53 08:38 WBC 10.6 RBC 2.52 L Hgb 6.8 L* Hct 21.2 L D MCV 84.0 MCH 26.9 L MCHC Differential 32.0 RDW 15.4 Plt Count 458 H MPV 7.6 Neutrophils % 74.8 Band Neutrophils % Lymphocytes % 16.2 L Monocytes % 7.1 Eosinophils % 1.8 Basophils % 0.1 Neutrophils (Manual) Lymphocytes Monocytes Eosinophils Hypochromia Platelet Estimate Polychromasia Schistocytes PT INR PTT (Actin FS) Specimen Source Sample Site pH pCO2 pO2 HCO3 Base Excess O2 Saturation Rashid Test Vent Rate Inspired O2 Tidal Volume PEEP Pressure (ins/psv/peep) Critical Value Sodium 149 H Potassium 3.7 Chloride 116 H Carbon Dioxide 25.3 Anion Gap 11.4 BUN 16 Creatinine 1.6 H Est GFR ( Amer) TNP Est GFR (Non-Af Amer) TNP BUN/Creatinine Ratio 10.0 Glucose 140 H POC Glucose Calcium 8.1 L Magnesium Iron TIBC Iron Saturation Unsaturated IBC Ferritin Total Bilirubin AST ALT Alkaline Phosphatase Ammonia B-Natriuretic Peptide Total Protein Albumin Globulin Albumin/Globulin Ratio Vitamin B12 Folic Acid Helicobacter pylori Ab Blood Type O POSITIVE Antibody Screen NEGATIVE Crossmatch See Detail 07/03/17 07/03/17 07/03/17 12:48 16:10 21:06 WBC RBC Hgb Hct MCV MCH MCHC Differential RDW Plt Count MPV Neutrophils % Band Neutrophils % Lymphocytes % Monocytes % Eosinophils % Basophils % Neutrophils (Manual) Lymphocytes Monocytes Eosinophils Hypochromia Platelet Estimate Polychromasia Schistocytes PT INR PTT (Actin FS) Specimen Source Sample Site pH pCO2 pO2 HCO3 Base Excess O2 Saturation Rashid Test Vent Rate Inspired O2 Tidal Volume PEEP Pressure (ins/psv/peep) Critical Value Sodium Potassium Chloride Carbon Dioxide Anion Gap BUN Creatinine Est GFR ( Amer) Est GFR (Non-Af Amer) BUN/Creatinine Ratio Glucose POC Glucose 171 H 184 H 180 H Calcium Magnesium Iron TIBC Iron Saturation Unsaturated IBC Ferritin Total Bilirubin AST ALT Alkaline Phosphatase Ammonia B-Natriuretic Peptide Total Protein Albumin Globulin Albumin/Globulin Ratio Vitamin B12 Folic Acid Helicobacter pylori Ab Blood Type Antibody Screen Crossmatch 07/04/17 07/04/17 07/04/17 04:30 04:30 04:30 WBC 12.7 H RBC 3.77 L Hgb 10.5 L D Hct 31.6 L D MCV 83.8 MCH 27.7 MCHC Differential 33.1 RDW 15.2 Plt Count 383 MPV 7.3 Neutrophils % Band Neutrophils % 2 Lymphocytes % Monocytes % Eosinophils % Basophils % Neutrophils (Manual) 80 Lymphocytes 12 L Monocytes 2 Eosinophils 4 Hypochromia 1+ Platelet Estimate ADEQUATE Polychromasia 1+ Schistocytes 1+ PT INR PTT (Actin FS) 28.0 Specimen Source Sample Site pH pCO2 pO2 HCO3 Base Excess O2 Saturation Rashid Test Vent Rate Inspired O2 Tidal Volume PEEP Pressure (ins/psv/peep) Critical Value Sodium 142 Potassium 3.8 Chloride 112 H Carbon Dioxide 23.0 Anion Gap 10.8 BUN 17 Creatinine 1.6 H Est GFR ( Amer) TNP Est GFR (Non-Af Amer) TNP BUN/Creatinine Ratio 10.6 Glucose 168 H POC Glucose Calcium 7.7 L Magnesium Iron TIBC Iron Saturation Unsaturated IBC Ferritin Total Bilirubin 0.5 AST 16 ALT 8 Alkaline Phosphatase 95 Ammonia B-Natriuretic Peptide Total Protein 5.0 L Albumin 2.0 L Globulin 3.0 Albumin/Globulin Ratio 0.7 L Vitamin B12 Folic Acid Helicobacter pylori Ab Blood Type Antibody Screen Crossmatch 07/04/17 07/04/17 07/04/17 05:51 08:43 12:02 WBC RBC Hgb Hct MCV MCH MCHC Differential RDW Plt Count MPV Neutrophils % Band Neutrophils % Lymphocytes % Monocytes % Eosinophils % Basophils % Neutrophils (Manual) Lymphocytes Monocytes Eosinophils Hypochromia Platelet Estimate Polychromasia Schistocytes PT INR PTT (Actin FS) Specimen Source Sample Site pH pCO2 pO2 HCO3 Base Excess O2 Saturation Rashid Test Vent Rate Inspired O2 Tidal Volume PEEP Pressure (ins/psv/peep) Critical Value Sodium Potassium Chloride Carbon Dioxide Anion Gap BUN Creatinine Est GFR ( Amer) Est GFR (Non-Af Amer) BUN/Creatinine Ratio Glucose POC Glucose 151 H 134 H 185 H Calcium Magnesium Iron TIBC Iron Saturation Unsaturated IBC Ferritin Total Bilirubin AST ALT Alkaline Phosphatase Ammonia B-Natriuretic Peptide Total Protein Albumin Globulin Albumin/Globulin Ratio Vitamin B12 Folic Acid Helicobacter pylori Ab Blood Type Antibody Screen Crossmatch 07/04/17 07/04/17 07/04/17 17:03 18:11 23:21 WBC RBC Hgb Hct MCV MCH MCHC Differential RDW Plt Count MPV Neutrophils % Band Neutrophils % Lymphocytes % Monocytes % Eosinophils % Basophils % Neutrophils (Manual) Lymphocytes Monocytes Eosinophils Hypochromia Platelet Estimate Polychromasia Schistocytes PT INR PTT (Actin FS) 116.3 H* Specimen Source Sample Site pH pCO2 pO2 HCO3 Base Excess O2 Saturation Rashid Test Vent Rate Inspired O2 Tidal Volume PEEP Pressure (ins/psv/peep) Critical Value Sodium Potassium Chloride Carbon Dioxide Anion Gap BUN Creatinine Est GFR ( Amer) Est GFR (Non-Af Amer) BUN/Creatinine Ratio Glucose POC Glucose 164 H 142 H Calcium Magnesium Iron TIBC Iron Saturation Unsaturated IBC Ferritin Total Bilirubin AST ALT Alkaline Phosphatase Ammonia B-Natriuretic Peptide Total Protein Albumin Globulin Albumin/Globulin Ratio Vitamin B12 Folic Acid Helicobacter pylori Ab Blood Type Antibody Screen Crossmatch 07/05/17 07/05/17 07/05/17 04:30 04:30 04:30 WBC 12.6 H RBC 3.81 Hgb 10.7 L Hct 32.1 L MCV 84.2 MCH 28.2 MCHC Differential 33.5 RDW 15.7 Plt Count 327 MPV 7.4 Neutrophils % 82.9 H Band Neutrophils % Lymphocytes % 11.6 L Monocytes % 2.5 Eosinophils % 2.8 Basophils % 0.2 Neutrophils (Manual) Lymphocytes Monocytes Eosinophils Hypochromia Platelet Estimate Polychromasia Schistocytes PT INR PTT (Actin FS) 82.2 H* Specimen Source Sample Site pH pCO2 pO2 HCO3 Base Excess O2 Saturation Rashid Test Vent Rate Inspired O2 Tidal Volume PEEP Pressure (ins/psv/peep) Critical Value Sodium 142 Potassium 3.9 Chloride 113 H Carbon Dioxide 22.6 Anion Gap 10.3 BUN 18 Creatinine 1.5 H Est GFR ( Amer) TNP Est GFR (Non-Af Amer) TNP BUN/Creatinine Ratio 12.0 Glucose 142 H POC Glucose Calcium 7.9 L Magnesium Iron TIBC Iron Saturation Unsaturated IBC Ferritin Total Bilirubin AST ALT Alkaline Phosphatase Ammonia B-Natriuretic Peptide Total Protein Albumin Globulin Albumin/Globulin Ratio Vitamin B12 Folic Acid Helicobacter pylori Ab Blood Type Antibody Screen Crossmatch 07/05/17 07/05/17 07/05/17 05:37 10:30 12:48 WBC RBC Hgb Hct MCV MCH MCHC Differential RDW Plt Count MPV Neutrophils % Band Neutrophils % Lymphocytes % Monocytes % Eosinophils % Basophils % Neutrophils (Manual) Lymphocytes Monocytes Eosinophils Hypochromia Platelet Estimate Polychromasia Schistocytes PT INR PTT (Actin FS) 121.1 H* Specimen Source Sample Site pH pCO2 pO2 HCO3 Base Excess O2 Saturation Rashid Test Vent Rate Inspired O2 Tidal Volume PEEP Pressure (ins/psv/peep) Critical Value Sodium Potassium Chloride Carbon Dioxide Anion Gap BUN Creatinine Est GFR ( Amer) Est GFR (Non-Af Amer) BUN/Creatinine Ratio Glucose POC Glucose 132 H 151 H Calcium Magnesium Iron TIBC Iron Saturation Unsaturated IBC Ferritin Total Bilirubin AST ALT Alkaline Phosphatase Ammonia B-Natriuretic Peptide Total Protein Albumin Globulin Albumin/Globulin Ratio Vitamin B12 Folic Acid Helicobacter pylori Ab Blood Type Antibody Screen Crossmatch 07/05/17 07/05/17 07/06/17 17:28 18:00 00:12 WBC RBC Hgb Hct MCV MCH MCHC Differential RDW Plt Count MPV Neutrophils % Band Neutrophils % Lymphocytes % Monocytes % Eosinophils % Basophils % Neutrophils (Manual) Lymphocytes Monocytes Eosinophils Hypochromia Platelet Estimate Polychromasia Schistocytes PT INR PTT (Actin FS) 71.8 H Specimen Source Sample Site pH pCO2 pO2 HCO3 Base Excess O2 Saturation Rashid Test Vent Rate Inspired O2 Tidal Volume PEEP Pressure (ins/psv/peep) Critical Value Sodium Potassium Chloride Carbon Dioxide Anion Gap BUN Creatinine Est GFR ( Amer) Est GFR (Non-Af Amer) BUN/Creatinine Ratio Glucose POC Glucose 158 H 163 H Calcium Magnesium Iron TIBC Iron Saturation Unsaturated IBC Ferritin Total Bilirubin AST ALT Alkaline Phosphatase Ammonia B-Natriuretic Peptide Total Protein Albumin Globulin Albumin/Globulin Ratio Vitamin B12 Folic Acid Helicobacter pylori Ab Blood Type Antibody Screen Crossmatch 07/06/17 07/06/17 07/06/17 05:33 05:35 05:35 WBC 11.5 H RBC 3.78 L Hgb 10.4 L Hct 32.1 L MCV 84.9 MCH 27.5 MCHC Differential 32.4 RDW 16.2 Plt Count 350 MPV 7.6 Neutrophils % 77.8 Band Neutrophils % Lymphocytes % 13.8 L Monocytes % 5.9 Eosinophils % 2.2 Basophils % 0.3 Neutrophils (Manual) Lymphocytes Monocytes Eosinophils Hypochromia Platelet Estimate Polychromasia Schistocytes PT INR PTT (Actin FS) Specimen Source Sample Site pH pCO2 pO2 HCO3 Base Excess O2 Saturation Rashid Test Vent Rate Inspired O2 Tidal Volume PEEP Pressure (ins/psv/peep) Critical Value Sodium 139 Potassium 4.1 Chloride 110 H Carbon Dioxide 24.6 Anion Gap 8.5 BUN 17 Creatinine 1.4 H Est GFR ( Amer) TNP Est GFR (Non-Af Amer) TNP BUN/Creatinine Ratio 12.1 Glucose 156 H POC Glucose 148 H Calcium 8.0 L Magnesium Iron TIBC Iron Saturation Unsaturated IBC Ferritin Total Bilirubin AST ALT Alkaline Phosphatase Ammonia B-Natriuretic Peptide Total Protein Albumin Globulin Albumin/Globulin Ratio Vitamin B12 Folic Acid Helicobacter pylori Ab Blood Type Antibody Screen Crossmatch 07/06/17 07/06/17 05:35 12:15 WBC RBC Hgb Hct MCV MCH MCHC Differential RDW Plt Count MPV Neutrophils % Band Neutrophils % Lymphocytes % Monocytes % Eosinophils % Basophils % Neutrophils (Manual) Lymphocytes Monocytes Eosinophils Hypochromia Platelet Estimate Polychromasia Schistocytes PT INR PTT (Actin FS) 95.9 H* Specimen Source Sample Site pH pCO2 pO2 HCO3 Base Excess O2 Saturation Rashid Test Vent Rate Inspired O2 Tidal Volume PEEP Pressure (ins/psv/peep) Critical Value Sodium Potassium Chloride Carbon Dioxide Anion Gap BUN Creatinine Est GFR ( Amer) Est GFR (Non-Af Amer) BUN/Creatinine Ratio Glucose POC Glucose 171 H Calcium Magnesium Iron TIBC Iron Saturation Unsaturated IBC Ferritin Total Bilirubin AST ALT Alkaline Phosphatase Ammonia B-Natriuretic Peptide Total Protein Albumin Globulin Albumin/Globulin Ratio Vitamin B12 Folic Acid Helicobacter pylori Ab Blood Type Antibody Screen Crossmatch Hospital Course: Patient admitted to the ICU unit patient was being followed by operations associate and was on heparin drip due to dvt. 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 Patient was later than extubated and tolerated well with nasal cannula oxygen. Patient then transferred out to the telemetry floor, PTT was being monitored. Patient was stable for discharge heparin was switched to xarelto. Disposition: Other Care w/in this hosp Home Medications: Home Medication Medication Instructions Recorded Type Clonidine HCl [Catapres] 0.1 mg PO Q8H PRN 06/21/17 History Haloperidol Decanoate [Haldol 25 mg IM [id number] 06/21/17 History Decanoate 50] Mirtazapine [Remeron] 15 mg PO HS 06/21/17 History Naproxen 1 tab PO Q6H PRN 06/21/17 History Nut.tx.gluc.intoler,Lac-Fr,Soy 1 bot PO QID 06/21/17 History [Glucerna 1.2 Domingo] Potassium Chloride 40 tab PO DAILY 06/21/17 History Prostat Sugar Free 30 ml PO BID 06/21/17 History amLODIPine Besylate [Norvasc] 5 mg PO DAILY 06/21/17 History Inpatient Medications: Current Medications Acetaminophen (Tylenol) 650 mg PO Q4H PRN PRN Reason: Pain Or Fever above 101 Stop: 08/20/17 19:40 Al Hydrox/Mg Hydrox/Simethicone (Maalox) 30 ml PO Q6H PRN PRN Reason: Dyspepsia Stop: 08/20/17 19:40 Albuterol Sulfate (Albuterol 2.5mg/3ml Neb Ud) 2.5 mg HHN Q2HRT PRN PRN Reason: Shortness of Breath or Wheeze Stop: 08/20/17 19:40 Albuterol/Ipratropium (Duoneb Neb) 3 ml HHN Q6HRT [facility] Stop: 08/30/17 18:59 Last Admin: 07/06/17 06:50 Dose: 3 ml Amlodipine Besylate (Norvasc) 10 mg PO DAILY [facility] Stop: 08/21/17 08:59 Last Admin: 07/06/17 08:18 Dose: 10 mg Clonidine HCl (Ljgnxtrw-[id number]) 1 patch TD We [facility] Stop: 08/28/17 13:14 Last Admin: 07/06/17 12:44 Dose: 1 patch Enalaprilat (Vasotec) 1.25 mg IVP Q6HR PRN PRN Reason: Sbp Above 170MMHG Stop: 08/22/17 11:59 Last Admin: 07/06/17 08:20 Dose: 1.25 mg Guaifenesin (Robitussin) 200 mg PO Q4HR PRN PRN Reason: Cough or Congestion Stop: 08/20/17 19:40 Haloperidol Decanoate (Haldol Dec) 25 mg IM QMONTH [facility] Stop: 08/23/17 09:59 Last Admin: 06/24/17 09:10 Dose: 25 mg Hydralazine HCl (Apresoline 20 Mg/Ml) 10 mg IV Q6HR PRN PRN Reason: SBP ABOVE 160 Stop: 08/25/17 12:20 Last Admin: 07/06/17 10:39 Dose: 10 mg Potassium Chloride/Dextrose/Sod Cl (D5-0.45ns W/40 Meq Kcl) 1,000 mls @ 75 mls/ hr IV .[id number] [facility] Stop: 08/29/17 12:44 Last Admin: 07/06/17 03:59 Dose: 75 mls/hr Heparin Sodium/Dextrose (Heparin Drip) 25,000 units in 250 mls @ 10 mls/hr IV TITR PRN; Protocol; 1,000 UNITS/HR PRN Reason: PROTOCOL Stop: 09/02/17 11:33 Last Admin: 07/06/17 07:17 Dose: 600 units/hr, 6 mls/hr Insulin Aspart (Novolog) 0 units SUBQ Q6HR ED PRN Reason: Protocol Stop: 09/03/17 00:00 Last Admin: 07/06/17 12:35 Dose: Not Given Ipratropium Alpine (Atrovent Neb 0.5mg/2.5ml) 0.5 mg IH Q2HRT PRN PRN Reason: Shortness of Breath or Wheeze Stop: 08/20/17 19:40 Lactobacillus Rhamnosus (Culturelle 15b) 1 each PO DAILY ED Stop: 08/30/17 08:59 Last Admin: 07/06/17 08:33 Dose: 1 each Mirtazapine (Remeron) 15 mg PO HS ED PRN Reason: Protocol Stop: 08/20/17 20:59 Last Admin: 07/05/17 21:20 Dose: 15 mg Miscellaneous (Probiotic Screen) 1 ea MC PRN PRN PRN Reason: PROTOCOL Stop: 08/29/17 11:59 Morphine Sulfate (Morphine) 2 mg IVP Q3H PRN PRN Reason: Pain (Severe) Stop: 08/20/17 19:40 Last Admin: 07/06/17 01:54 Dose: 2 mg Nitroglycerin (Nitrostat) 0.4 mg SL Q5MIN PRN PRN Reason: Chest Pain Stop: 08/20/17 19:40 Ondansetron HCl (Zofran) 4 mg IV Q8H PRN PRN Reason: Nausea / Vomiting Stop: 08/20/17 19:40 Pantoprazole Sodium (Protonix) 40 mg IVP DAILY ED Stop: 08/31/17 09:44 Last Admin: 07/06/17 08:33 Dose: 40 mg Rivaroxaban (Xarelto) 10 mg PO DAILY [facility] Stop: 09/05/17 08:59 Consults and Follow-Up: Jose Tobias [Primary Care Provider] - Consulting Speciality: Pulmonary, Surgery, GI
[2017-07-06] MEDS ORDERED: Diltiazem 5 mg/mL 5mL Vial IVP STA (17:15)
[2017-07-06 17:17] LABS: % BASOPHILS 0.2 % (0.0-2.0); % LYMPHOCYTES 14.6 % (20.0-50.0); % MONOCYTES 4.9 % (2.0-10.0); % NEUTROPHILS 79.3 % (40.0-80.0); EOSINOPHILE ABSOLUTE 0.1 Th/cmm (0.1-0.4); HEMATOCRIT 29.5 % (41.0-60); HEMOGLOBIN 9.7 gm/dL (12-16); LYMPHOCYTE ABSOLUTE 1.9 Th/cmm (1.5-3.0); MEAN CELL VOLUME 83.7 fl (81-100); MEAN CORPUSCULAR HEMOGLOBIN 27.7 pg (27.0-31.0); MEAN CORPUSCULAR HGB CONC 33.1 pg (28.0-36.0); MEAN PLATELET VOLUME 7.9 fl; MONOCYTE ABSOLUTE 0.6 Th/cmm (0.3-1.0); NEUTROPHILE ABSOLUTE 10.2 Th/cmm (1.8-8.0); PLATELET COUNT 359 Th/cmm (150-400); RED BLOOD COUNT 3.52 Mil/cmm (3.80-5.20); RED CELL DISTRIBUTION WIDTH 16.5 % (11.5-20.0); WHITE BLOOD COUNT 12.8 Th/cmm (4.8-10.8)
[2017-07-06] MEDS ORDERED: Diltiazem 5 mg/mL 5mL Vial IVP PRN (17:56)
[2017-07-06] MEDS ORDERED: Diltiazem 5 mg/mL 5mL Vial IVP SCH (18:00)
[2017-07-06] MEDS ORDERED: Morphine Sulfate 2 mg/mL 1mL Syr IM PRN (19:02)
[2017-07-06] MEDS ORDERED: Morphine Sulfate 2 mg/mL 1mL Syr ONE (19:11)
[2017-07-06 20:35] LABS: % BASOPHILS 0.2 % (0.0-2.0); % EOSINOPHILS 0.5 % (0.0-5.0); % LYMPHOCYTES 7.7 % (20.0-50.0); % MONOCYTES 4.5 % (2.0-10.0); % NEUTROPHILS 87.1 % (40.0-80.0); EOSINOPHILE ABSOLUTE 0.1 Th/cmm (0.1-0.4); HEMATOCRIT 28.3 % (41.0-60); HEMOGLOBIN 9.3 gm/dL (12-16); LYMPHOCYTE ABSOLUTE 1.1 Th/cmm (1.5-3.0); MEAN CORPUSCULAR HEMOGLOBIN 27.7 pg (27.0-31.0); MEAN PLATELET VOLUME 7.3 fl; MONOCYTE ABSOLUTE 0.6 Th/cmm (0.3-1.0); NEUTROPHILE ABSOLUTE 12.1 Th/cmm (1.8-8.0); PLATELET COUNT 330 Th/cmm (150-400); RED BLOOD COUNT 3.37 Mil/cmm (3.80-5.20); WHITE BLOOD COUNT 13.9 Th/cmm (4.8-10.8)
[2017-07-06] MEDS: Pantoprazole 80 MG in Sodium Chloride 0.9% 100 ML IV SCH (20:59)
[2017-07-07] MEDS: INSULIN ASPART, RECOMBINANT 100 UNITS/ML SUBQ SCH ×4 (00:19→17:31)
[2017-07-07] MEDS: Albuterol/Ipratropium Neb 3 ML AERS HHN SCH ×4 (00:35→18:29)
[2017-07-07 04:28] LABS: % BASOPHILS 0.3 % (0.0-2.0); % EOSINOPHILS 0.6 % (0.0-5.0); % LYMPHOCYTES 13.7 % (20.0-50.0); % MONOCYTES 3.8 % (2.0-10.0); % NEUTROPHILS 81.6 % (40.0-80.0); EOSINOPHILE ABSOLUTE 0.1 Th/cmm (0.1-0.4); HEMOGLOBIN 8.6 gm/dL (12-16); LYMPHOCYTE ABSOLUTE 1.7 Th/cmm (1.5-3.0); MEAN CELL VOLUME 83.6 fl (81-100); MEAN CORPUSCULAR HEMOGLOBIN 27.7 pg (27.0-31.0); MEAN CORPUSCULAR HGB CONC 33.1 pg (28.0-36.0); MEAN PLATELET VOLUME 7.4 fl; MONOCYTE ABSOLUTE 0.5 Th/cmm (0.3-1.0); NEUTROPHILE ABSOLUTE 10.2 Th/cmm (1.8-8.0); PLATELET COUNT 311 Th/cmm (150-400); RED BLOOD COUNT 3.11 Mil/cmm (3.80-5.20); RED CELL DISTRIBUTION WIDTH 16.1 % (11.5-20.0)
[2017-07-07 04:52] LABS: ANION GAP 9.1 (7.0-16.0); BUN - UREA NITROGEN 17 mg/dL (7-25); CALCIUM SERUM 8.3 mg/dL (8.6-10.3); CARBON DIOXIDE 23.5 mEq/L (21.0-31.0); CHLORIDE 109 mEq/L (98-107); CREATININE - SERUM 1.4 mg/dL (0.6-1.2); GLUCOSE 159 mg/dL (70-105); POTASSIUM SERUM 4.6 mEq/L (3.5-5.1); SODIUM SERUM 137 mEq/L (136-145)
[2017-07-07 04:56] LABS: WHITE BLOOD COUNT 12.5 Th/cmm (4.8-10.8)
[2017-07-07] MEDS: Pantoprazole 80 MG in Sodium Chloride 0.9% 100 ML IV SCH ×2 (06:05→16:05)
--- NOTE | 2017-07-07 08:01 | Diagnostic Imaging Report ---
Exam: KUB of the abdomen HISTORY: Distention abdominal pain Findings: Portable supine examination the abdomen reviewed. The study demonstrates NG tube in the stomach There is evidence for distention of small bowel loops consistent with mild ileus. There is evidence for metallic sutures in the right lower quadrant status post partial colectomy. Calcified uterine fibroid is appreciated. Bony structures intact. IMPRESSION: Mild ileus NG tube in the stomach. Clinical correlation follow-up exam is recommended.
[2017-07-07] MEDS: Lactobacillus Rhamnosus GG 15 Billion CFU CAP.SPRINK PO SCH (08:33)
--- NOTE | 2017-07-07 09:05 | General Progress Note ---
Subjective - Review of Systems Service Date: 07/07/17 Events since last encounter: back in ICU for rectal bleeding Objective - Results Result Diagrams: 07/07/17 04:20 07/07/17 04:20 Recent Labs: Laboratory Last Values WBC 12.5 Th/cmm (4.8-10.8) H 07/07/17 04:20 RBC 3.11 Mil/cmm (3.80-5.20) L 07/07/17 04:20 Hgb 8.6 gm/dL (12-16) L 07/07/17 04:20 Hct 26.0 % (41.0-60) L 07/07/17 04:20 MCV 83.6 fl (81-100) 07/07/17 04:20 MCH 27.7 pg (27.0-31.0) 07/07/17 04:20 MCHC Differential 33.1 pg (28.0-36.0) 07/07/17 04:20 RDW 16.1 % (11.5-20.0) 07/07/17 04:20 Plt Count 311 Th/cmm (150-400) 07/07/17 04:20 MPV 7.4 fl 07/07/17 04:20 Neutrophils % 81.6 % (40.0-80.0) H 07/07/17 04:20 Band Neutrophils % 2 % (0-10) 07/04/17 04:30 Lymphocytes % 13.7 % (20.0-50.0) L 07/07/17 04:20 Monocytes % 3.8 % (2.0-10.0) 07/07/17 04:20 Eosinophils % 0.6 % (0.0-5.0) 07/07/17 04:20 Basophils % 0.3 % (0.0-2.0) 07/07/17 04:20 Neutrophils (Manual) 80 % (40-80) 07/04/17 04:30 Lymphocytes 12 % (20-50) L 07/04/17 04:30 Monocytes 2 % (2-10) 07/04/17 04:30 Eosinophils 4 % (0-5) 07/04/17 04:30 Hypochromia 1+ 07/04/17 04:30 Platelet Estimate ADEQUATE (NORMAL) 07/04/17 04:30 Polychromasia 1+ 07/04/17 04:30 Schistocytes 1+ 07/04/17 04:30 PT 11.8 SECONDS (9.5-11.5) H 06/28/17 04:10 INR 1.12 (0.5-1.4) 06/28/17 04:10 PTT (Actin FS) 39.0 SECONDS (26.0-38.0) H 07/06/17 13:35 D-Dimer 3600 ng/mL (100-400) H 06/21/17 18:20 Specimen Source Arterial 06/28/17 10:55 Sample Site Right Radial 06/28/17 10:55 pH 7.44 (7.35-7.45) 06/28/17 10:55 pCO2 36.0 mmHg (35.0-45.0) 06/28/17 10:55 pO2 100.0 mmHg (80.0-100.0) 06/28/17 10:55 HCO3 25.4 mEq/L (20.0-26.0) 06/28/17 10:55 Base Excess 0.6 mEq/L (-3.0-3.0) 06/28/17 10:55 O2 Saturation 98.0 % (92.0-100.0) 06/28/17 10:55 Rashid Test Positive 06/28/17 10:55 Vent Rate N/A 06/28/17 10:55 Inspired O2 28 06/28/17 10:55 Tidal Volume N/A 06/28/17 10:55 PEEP N/A 06/28/17 10:55 Pressure (ins/psv/peep) N/A 06/28/17 10:55 Critical Value DM 06/28/17 10:55 Sodium 137 mEq/L (136-145) 07/07/17 04:20 Potassium 4.6 mEq/L (3.5-5.1) 07/07/17 04:20 Chloride 109 mEq/L (98-107) H 07/07/17 04:20 Carbon Dioxide 23.5 mEq/L (21.0-31.0) 07/07/17 04:20 Anion Gap 9.1 (7.0-16.0) 07/07/17 04:20 BUN 17 mg/dL (7-25) 07/07/17 04:20 Creatinine 1.4 mg/dL (0.6-1.2) H 07/07/17 04:20 Est GFR ( Amer) TNP 07/07/17 04:20 Est GFR (Non-Af Amer) TNP 07/07/17 04:20 BUN/Creatinine Ratio 12.1 07/07/17 04:20 Glucose 159 mg/dL (70-105) H 07/07/17 04:20 POC Glucose 149 MG/DL (70 - 105) H 07/07/17 06:00 Hemoglobin A1c % 11.7 % (4.0-6.0) H 06/21/17 18:20 Calcium 8.3 mg/dL (8.6-10.3) L 07/07/17 04:20 Magnesium 1.8 mg/dL (1.9-2.7) L 07/02/17 03:41 Iron 19 ug/dL (27-139) L 06/22/17 05:20 TIBC 176 ug/dL (250-450) L 06/22/17 05:20 Iron Saturation 11 % (15-55) L 06/22/17 05:20 Unsaturated IBC 157 ug/dL (118-369) 06/22/17 05:20 Ferritin 164 ng/mL (15-150) H 06/22/17 05:20 Total Bilirubin 0.5 mg/dL (0.3-1.0) 07/04/17 04:30 AST 16 U/L (13-39) 07/04/17 04:30 ALT 8 U/L (7-52) 07/04/17 04:30 Alkaline Phosphatase 95 U/L (34-104) 07/04/17 04:30 Ammonia 38 umol/L (16-53) 07/02/17 03:41 Creatine Kinase 39 U/L (30-223) 06/21/17 18:20 Troponin I 0.01 ng/mL (0.01-0.05) 06/21/17 18:20 B-Natriuretic Peptide 187.0 pg/mL (5.0-100.0) H 07/01/17 08:40 Total Protein 5.0 gm/dL (6.0-8.3) L 07/04/17 04:30 Albumin 2.0 gm/dL (3.7-5.3) L 07/04/17 04:30 Globulin 3.0 gm/dL 07/04/17 04:30 Albumin/Globulin Ratio 0.7 (1.0-1.8) L 07/04/17 04:30 Triglycerides 104 mg/dL (<150) 06/21/17 18:20 Cholesterol 129 mg/dL (<200) 06/21/17 18:20 LDL Cholesterol Direct 65 mg/dL (75-193) L 06/21/17 18:20 HDL Cholesterol 43 mg/dL (23-92) 06/21/17 18:20 Vitamin B12 1797 pg/mL (232-1245) H 07/02/17 03:41 Folic Acid 10.3 ng/mL (>3.0) 07/02/17 03:41 Helicobacter pylori Ab POSITIVE (NEGATIVE) 06/23/17 10:50 Blood Type O POSITIVE 07/03/17 08:38 Antibody Screen NEGATIVE 07/03/17 08:38 Crossmatch See Detail 07/03/17 08:38 - Physical Exam Vitals and I&O: Vital Signs Temp 96.8 F 07/07/17 06:00 Pulse 75 07/07/17 08:32 Resp 11 07/07/17 08:10 BP 150/71 07/07/17 08:32 Pulse Ox 100 07/07/17 08:10 Intake & Output 07/06/17 07/07/17 07/07/17 18:59 06:59 18:59 Intake Total 190.3 190.167 Output Total 800 730 Balance -609.7 -539.833 Weight (lbs) 58.06 kg 58.06 kg Intake: Intake, IV Amount 40.3 90.167 Pantoprazole 80 mg In 90.167 Sodium Chloride 0.9% 100 ml @ 10 mls/hr IV Q10H [facility] Rx#:[id number] Oral 0 Tube Feeding 150 Other 100 Output: Gastric Drainage 80 Urine 800 650 Other: # Bowel Movements 1 1 Stool Characteristics Soft Soft Bloody Bloody Active Medications: Current Medications Acetaminophen (Tylenol) 650 mg PO Q4H PRN PRN Reason: Pain Or Fever above 101 Stop: 08/20/17 19:40 Acetaminophen/Hydrocodone Bitart ([place] 5mg/325mg) 1 tab PO Q4H PRN PRN Reason: Pain (Severe) Stop: 09/04/17 13:12 Al Hydrox/Mg Hydrox/Simethicone (Maalox) 30 ml PO Q6H PRN PRN Reason: Dyspepsia Stop: 08/20/17 19:40 Albuterol Sulfate (Albuterol 2.5mg/3ml Neb Ud) 2.5 mg HHN Q2HRT PRN PRN Reason: Shortness of Breath or Wheeze Stop: 08/20/17 19:40 Albuterol/Ipratropium (Duoneb Neb) 3 ml HHN Q6HRT [facility] Stop: 08/30/17 18:59 Last Admin: 07/07/17 08:10 Dose: 3 ml Amlodipine Besylate (Norvasc) 10 mg PO DAILY [facility] Stop: 09/06/17 08:59 Clonidine HCl (Mnzctcqn-Bjv-2) 1 patch TD We [facility] Stop: 08/28/17 13:14 Last Admin: 07/06/17 12:44 Dose: 1 patch Diltiazem HCl (Cardizem) 20 mg IVP Q4H PRN PRN Reason: HR> 120 Stop: 09/04/17 17:55 Guaifenesin (Robitussin) 200 mg PO Q4HR PRN PRN Reason: Cough or Congestion Stop: 08/20/17 19:40 Haloperidol Decanoate (Haldol Dec) 25 mg IM QMONTH [facility] Stop: 08/23/17 09:59 Last Admin: 06/24/17 09:10 Dose: 25 mg Hydralazine HCl (Apresoline 20 Mg/Ml) 10 mg IV Q6HR PRN PRN Reason: SBP ABOVE 160 Stop: 08/25/17 12:20 Last Admin: 07/06/17 18:26 Dose: 10 mg Potassium Chloride/Dextrose/Sod Cl (D5-0.45ns W/40 Meq Kcl) 1,000 mls @ 75 mls/ hr IV .[id number] [facility] Stop: 09/04/17 19:14 Last Admin: 07/06/17 19:35 Dose: 75 mls/hr Pantoprazole Sodium 80 mg/ (Sodium Chloride) 100 mls @ 10 mls/hr IV Q10H [facility] Stop: 09/04/17 19:14 Last Admin: 07/07/17 06:05 Dose: 10 mls/hr Insulin Aspart (Novolog) 0 units SUBQ Q6HR ED PRN Reason: Protocol Stop: 09/03/17 00:00 Last Admin: 07/07/17 06:46 Dose: Not Given Ipratropium [place] (Atrovent Neb 0.5mg/2.5ml) 0.5 mg IH Q2HRT PRN PRN Reason: Shortness of Breath or Wheeze Stop: 08/20/17 19:40 Lactobacillus Rhamnosus (Culturelle 15b) 1 each PO DAILY ED Stop: 08/30/17 08:59 Last Admin: 07/07/17 08:33 Dose: Not Given Levofloxacin (Levaquin) 500 mg PO DAILY ED Stop: 09/04/17 20:59 Last Admin: 07/07/17 08:34 Dose: Not Given Mirtazapine (Remeron) 15 mg PO HS ED PRN Reason: Protocol Stop: 08/20/17 20:59 Last Admin: 07/06/17 21:01 Dose: 15 mg Miscellaneous (Probiotic Screen) 1 ea MC PRN PRN PRN Reason: PROTOCOL Stop: 08/29/17 11:59 Morphine Sulfate (Morphine) 2 mg IVP Q4HR PRN PRN Reason: Pain (Moderate) Stop: 09/04/17 19:01 Last Admin: 07/06/17 20:32 Dose: 2 mg Nitroglycerin (Nitrostat) 0.4 mg SL Q5MIN PRN PRN Reason: Chest Pain Stop: 08/20/17 19:40 Ondansetron HCl (Zofran Odt) 4 mg PO Q6H PRN PRN Reason: Nausea / Vomiting Stop: 09/04/17 13:12 General: Other (ngt feeding) HEENT: Atraumatic Neck: Supple Cardiovascular: Regular rate Abdomen: Bowel sounds, Soft, Other (dressing in midline no bleeding) Extremities: Other (right arm hematoma improved) - Procedures Procedures: Procedures Procedure Code Date PARTIAL REMOVAL OF COLON 86874 06/21/17 RESECTION OF RIGHT LARGE INTESTINE, OPEN APPROACH [id number] 06/21/17 Assessment/Plan - Problem List Patient Problems: All Active Problems Altered mental status (Acute) R41.82 Failure to thrive (Acute) [id number] Schizophrenia (Acute) F20.9 Anxiety (Chronic) F41.9 Chronic Kidney Disease (Chronic) Hypertension (Chronic) Nutritional Asmnt/Malnutr-PDOC - Dietary Evaluation Malnutrition Findings (Please click <Entered> for more info): Nutritional Asmnt/Malnutrition Start: 06/22/17 18: 04 Text: Status: Complete Freq: Document 06/22/17 18:04 GRISELDA (Rec: 06/22/17 18:15 GRISELDA [email or web address]) Nutritional Asmnt/Malnutrition Patient General Information Nutritional Screening High Risk Consult Diagnosis left lower extremity DVT, severe anemia, CHF, HTN Pertinent Medical Hx/Surgical Hx DM, anemia, renal stones, schizophrenia Subjective Information Pt seen lying in bed, confused at time of visit. Spoke with LULÚ Seay, RN reported pt ate well, consumed 60% of breakfast this morning. Per notes, pt has EGD and colonoscopy scheduled tommorrow. Current Diet Order/ Nutrition Support pureed Pertinent Medications D5-0.9ns, novolog, remeron, kcl Pertinent Labs 06/21 Na 137, K 3.5, Cl 100, BUN 24, Cr 1.3, Glucose 186, AST 10, ALT 6, Alb 2.6 06/22 POC 383 Nutritional Hx/Data Height 1.52 m Height (Calculated Centimeters) 152.4 Current Weight (lbs) 39.009 kg Weight (Calculated Kilograms) 39.0 Weight (Calculated Grams) 21079.9 [place] Body Weight 100 % [place] Body Weight 86 Body Mass Index (BMI) 16.7 Weight Status Underweight GI Symptoms GI Symptoms None Last BM none Difficult in: None Skin Integrity/Comment: intact Current %PO Fair (50-74%) Estimated Nutritional Goals Calories/Kcals/Kg 25-30 based on IBW 45kg Kcals Calculated 5003-8197 Protein g/k-1.2 Protein Calculated 45-54 Fluid: ml 1125-1350ml (1ml/kcal) Nutritional Problem 1. Problem Problem altered nutrition related lab values Etiology hx of DM Signs/Symptoms: Glucose 186, POC 383 Malnutrition Alert Protein-Calorie Malnutrition N/A Is there a minimum of two criteria No selected? Query Text:Check all the applicable criteria. A minimum of two criteria are recommended for diagnosis of either severe or non-severe malnutrition. Intervention/Recommendation Comments 1. Recommend CCHO, low sodium diet for optimal glycemic and BP control. RN notified. 2. Monitor PO intake, wt, labs and skin integrity 3. F/U as high risk in 2-3 days, 06/24-06/25 Expected Outcomes/Goals Expected Outcomes/Goals 1. PO intake to meet at least 75% of nutritional needs. 2. Wt stability, skin to remain intact, labs to improve
[2017-07-07] MEDS: D5-0.45NS w/40 mEq KCL 1,000 ML IV SCH (09:14)
--- NOTE | 2017-07-07 13:33 | Internal Medicine Prog Note ---
Internal Medicine Subjective - Subjective Service Date: 07/07/17 Patient is:: awake, non-interactive Patient Complaints of:: congestion Per staff patient has:: no adverse event, no episodes of fall, tolerating meds Internal Medicine Objective - Results Result Diagrams: 07/07/17 04:20 07/07/17 04:20 Recent Labs: Laboratory Last Values WBC 12.5 Th/cmm (4.8-10.8) H 07/07/17 04:20 RBC 3.11 Mil/cmm (3.80-5.20) L 07/07/17 04:20 Hgb 8.6 gm/dL (12-16) L 07/07/17 04:20 Hct 26.0 % (41.0-60) L 07/07/17 04:20 MCV 83.6 fl (81-100) 07/07/17 04:20 MCH 27.7 pg (27.0-31.0) 07/07/17 04:20 MCHC Differential 33.1 pg (28.0-36.0) 07/07/17 04:20 RDW 16.1 % (11.5-20.0) 07/07/17 04:20 Plt Count 311 Th/cmm (150-400) 07/07/17 04:20 MPV 7.4 fl 07/07/17 04:20 Neutrophils % 81.6 % (40.0-80.0) H 07/07/17 04:20 Band Neutrophils % 2 % (0-10) 07/04/17 04:30 Lymphocytes % 13.7 % (20.0-50.0) L 07/07/17 04:20 Monocytes % 3.8 % (2.0-10.0) 07/07/17 04:20 Eosinophils % 0.6 % (0.0-5.0) 07/07/17 04:20 Basophils % 0.3 % (0.0-2.0) 07/07/17 04:20 Neutrophils (Manual) 80 % (40-80) 07/04/17 04:30 Lymphocytes 12 % (20-50) L 07/04/17 04:30 Monocytes 2 % (2-10) 07/04/17 04:30 Eosinophils 4 % (0-5) 07/04/17 04:30 Hypochromia 1+ 07/04/17 04:30 Platelet Estimate ADEQUATE (NORMAL) 07/04/17 04:30 Polychromasia 1+ 07/04/17 04:30 Schistocytes 1+ 07/04/17 04:30 PT 11.8 SECONDS (9.5-11.5) H 06/28/17 04:10 INR 1.12 (0.5-1.4) 06/28/17 04:10 PTT (Actin FS) 39.0 SECONDS (26.0-38.0) H 07/06/17 13:35 D-Dimer 3600 ng/mL (100-400) H 06/21/17 18:20 Specimen Source Arterial 06/28/17 10:55 Sample Site Right Radial 06/28/17 10:55 pH 7.44 (7.35-7.45) 06/28/17 10:55 pCO2 36.0 mmHg (35.0-45.0) 06/28/17 10:55 pO2 100.0 mmHg (80.0-100.0) 06/28/17 10:55 HCO3 25.4 mEq/L (20.0-26.0) 06/28/17 10:55 Base Excess 0.6 mEq/L (-3.0-3.0) 06/28/17 10:55 O2 Saturation 98.0 % (92.0-100.0) 06/28/17 10:55 Rashid Test Positive 06/28/17 10:55 Vent Rate N/A 06/28/17 10:55 Inspired O2 28 06/28/17 10:55 Tidal Volume N/A 06/28/17 10:55 PEEP N/A 06/28/17 10:55 Pressure (ins/psv/peep) N/A 06/28/17 10:55 Critical Value DM 06/28/17 10:55 Sodium 137 mEq/L (136-145) 07/07/17 04:20 Potassium 4.6 mEq/L (3.5-5.1) 07/07/17 04:20 Chloride 109 mEq/L (98-107) H 07/07/17 04:20 Carbon Dioxide 23.5 mEq/L (21.0-31.0) 07/07/17 04:20 Anion Gap 9.1 (7.0-16.0) 07/07/17 04:20 BUN 17 mg/dL (7-25) 07/07/17 04:20 Creatinine 1.4 mg/dL (0.6-1.2) H 07/07/17 04:20 Est GFR ( Amer) TNP 07/07/17 04:20 Est GFR (Non-Af Amer) TNP 07/07/17 04:20 BUN/Creatinine Ratio 12.1 07/07/17 04:20 Glucose 159 mg/dL (70-105) H 07/07/17 04:20 POC Glucose 143 MG/DL (70 - 105) H 07/07/17 11:53 Hemoglobin A1c % 11.7 % (4.0-6.0) H 06/21/17 18:20 Calcium 8.3 mg/dL (8.6-10.3) L 07/07/17 04:20 Magnesium 1.8 mg/dL (1.9-2.7) L 07/02/17 03:41 Iron 19 ug/dL (27-139) L 06/22/17 05:20 TIBC 176 ug/dL (250-450) L 06/22/17 05:20 Iron Saturation 11 % (15-55) L 06/22/17 05:20 Unsaturated IBC 157 ug/dL (118-369) 06/22/17 05:20 Ferritin 164 ng/mL (15-150) H 06/22/17 05:20 Total Bilirubin 0.5 mg/dL (0.3-1.0) 07/04/17 04:30 AST 16 U/L (13-39) 07/04/17 04:30 ALT 8 U/L (7-52) 07/04/17 04:30 Alkaline Phosphatase 95 U/L (34-104) 07/04/17 04:30 Ammonia 38 umol/L (16-53) 07/02/17 03:41 Creatine Kinase 39 U/L (30-223) 06/21/17 18:20 Troponin I 0.01 ng/mL (0.01-0.05) 06/21/17 18:20 B-Natriuretic Peptide 187.0 pg/mL (5.0-100.0) H 07/01/17 08:40 Total Protein 5.0 gm/dL (6.0-8.3) L 07/04/17 04:30 Albumin 2.0 gm/dL (3.7-5.3) L 07/04/17 04:30 Globulin 3.0 gm/dL 07/04/17 04:30 Albumin/Globulin Ratio 0.7 (1.0-1.8) L 07/04/17 04:30 Triglycerides 104 mg/dL (<150) 06/21/17 18:20 Cholesterol 129 mg/dL (<200) 06/21/17 18:20 LDL Cholesterol Direct 65 mg/dL (75-193) L 06/21/17 18:20 HDL Cholesterol 43 mg/dL (23-92) 06/21/17 18:20 Vitamin B12 1797 pg/mL (232-1245) H 07/02/17 03:41 Folic Acid 10.3 ng/mL (>3.0) 07/02/17 03:41 Helicobacter pylori Ab POSITIVE (NEGATIVE) 06/23/17 10:50 Blood Type O POSITIVE 07/03/17 08:38 Antibody Screen NEGATIVE 07/03/17 08:38 Crossmatch See Detail 07/03/17 08:38 - Physical Exam Vitals and I&O: Vital Signs Temp 96.9 F 07/07/17 07:00 Pulse 95 07/07/17 13:28 Resp 15 07/07/17 13:28 BP 184/80 07/07/17 11:28 Pulse Ox 100 07/07/17 13:28 Intake & Output 07/06/17 07/07/17 07/07/17 18:59 06:59 18:59 Intake Total 190.3 201.017 8390 Output Total 800 730 Balance -609.7 -838.164 0590 Weight (lbs) 128 lb 128 lb Intake: Intake, IV Amount 40.3 90.167 1000 D5-0.45NS w/40 mEq KCL 1, 1000 000 ml @ 75 mls/hr IV . [id number] ED Rx#:[id number] Pantoprazole 80 mg In 90.167 Sodium Chloride 0.9% 100 ml @ 10 mls/hr IV Q10H [facility] Rx#:[id number] Oral 0 Tube Feeding 150 Other 100 Output: Gastric Drainage 80 Urine 800 650 Other: # Bowel Movements 1 1 Stool Characteristics Soft Soft Soft Bloody Bloody Formed Bloody Active Medications: Current Medications Acetaminophen (Tylenol) 650 mg PO Q4H PRN PRN Reason: Pain Or Fever above 101 Stop: 08/20/17 19:40 Acetaminophen/Hydrocodone Bitart ([place] 5mg/325mg) 1 tab PO Q4H PRN PRN Reason: Pain (Severe) Stop: 09/04/17 13:12 Al Hydrox/Mg Hydrox/Simethicone (Maalox) 30 ml PO Q6H PRN PRN Reason: Dyspepsia Stop: 08/20/17 19:40 Albuterol Sulfate (Albuterol 2.5mg/3ml Neb Ud) 2.5 mg HHN Q2HRT PRN PRN Reason: Shortness of Breath or Wheeze Stop: 08/20/17 19:40 Albuterol/Ipratropium (Duoneb Neb) 3 ml HHN Q6HRT ED Stop: 08/30/17 18:59 Last Admin: 07/07/17 13:28 Dose: 3 ml Amlodipine Besylate (Norvasc) 10 mg PO DAILY [facility] Stop: 09/06/17 08:59 Clonidine HCl (Focyurad-Wxz-2) 1 patch TD We [facility] Stop: 08/28/17 13:14 Last Admin: 07/06/17 12:44 Dose: 1 patch Diltiazem HCl (Cardizem) 20 mg IVP Q4H PRN PRN Reason: HR> 120 Stop: 09/04/17 17:55 Guaifenesin (Robitussin) 200 mg PO Q4HR PRN PRN Reason: Cough or Congestion Stop: 08/20/17 19:40 Haloperidol Decanoate (Haldol Dec) 25 mg IM QMONTH [facility] Stop: 08/23/17 09:59 Last Admin: 06/24/17 09:10 Dose: 25 mg Hydralazine HCl (Apresoline 20 Mg/Ml) 10 mg IV Q6HR PRN PRN Reason: SBP ABOVE 160 Stop: 08/25/17 12:20 Last Admin: 07/07/17 11:28 Dose: 10 mg Potassium Chloride/Dextrose/Sod Cl (D5-0.45ns W/40 Meq Kcl) 1,000 mls @ 75 mls/ hr IV .[id number] [facility] Stop: 09/04/17 19:14 Last Admin: 07/07/17 09:14 Dose: 75 mls/hr Pantoprazole Sodium 80 mg/ (Sodium Chloride) 100 mls @ 10 mls/hr IV Q10H ED Stop: 09/04/17 19:14 Last Admin: 07/07/17 06:05 Dose: 10 mls/hr Insulin Aspart (Novolog) 0 units SUBQ Q6HR ED PRN Reason: Protocol Stop: 09/03/17 00:00 Last Admin: 07/07/17 12:23 Dose: Not Given Ipratropium [place] (Atrovent Neb 0.5mg/2.5ml) 0.5 mg IH Q2HRT PRN PRN Reason: Shortness of Breath or Wheeze Stop: 08/20/17 19:40 Lactobacillus Rhamnosus (Culturelle 15b) 1 each PO DAILY [facility] Stop: 08/30/17 08:59 Last Admin: 07/07/17 08:33 Dose: Not Given Levofloxacin (Levaquin) 500 mg PO DAILY [facility] Stop: 09/04/17 20:59 Last Admin: 07/07/17 08:34 Dose: Not Given Mirtazapine (Remeron) 15 mg PO HS ED PRN Reason: Protocol Stop: 08/20/17 20:59 Last Admin: 07/06/17 21:01 Dose: 15 mg Miscellaneous (Probiotic Screen) 1 ea MC PRN PRN PRN Reason: PROTOCOL Stop: 08/29/17 11:59 Morphine Sulfate (Morphine) 2 mg IVP Q4HR PRN PRN Reason: Pain (Moderate) Stop: 09/04/17 19:01 Last Admin: 07/06/17 20:32 Dose: 2 mg Nitroglycerin (Nitrostat) 0.4 mg SL Q5MIN PRN PRN Reason: Chest Pain Stop: 08/20/17 19:40 Ondansetron HCl (Zofran Odt) 4 mg PO Q6H PRN PRN Reason: Nausea / Vomiting Stop: 09/04/17 13:12 General: weak, alert HEENT: NC/AT, PERRLA Neck: Supple Lungs: ronchi Cardiovascular: RRR, Normal S1, Normal S2, without murmur Abdomen: soft, non-tender, non-distended, positive bowel sound Extremities: excoriation Neurological: alert - Procedures Procedures: Procedures Procedure Code Date PARTIAL REMOVAL OF COLON 94266 06/21/17 RESECTION OF RIGHT LARGE INTESTINE, OPEN APPROACH [id number] 06/21/17 Internal Medicine Assmt/Plan - Assessment Assessment: acute dvt cecal mass s/p exploratory lap right right hemicolectomy severe anemia dm2 schizophrenia htn psychosis hypokalemia - Plan Plan: monitor electrolytes follow up labs in am will follow decorator consultant recommendations Nutritional Asmnt/Malnutr-PDOC - Dietary Evaluation Malnutrition Findings (Please click <Entered> for more info): Nutritional Asmnt/Malnutrition Start: 06/22/17 18: 04 Text: Status: Complete Freq: Document 06/22/17 18:04 [facility] (Rec: 06/22/17 18:15 HEN [email or web address]) Nutritional Asmnt/Malnutrition Patient General Information Nutritional Screening High Risk Consult Diagnosis left lower extremity DVT, severe anemia, CHF, HTN Pertinent Medical Hx/Surgical Hx DM, anemia, renal stones, schizophrenia Subjective Information Pt seen lying in bed, confused at time of visit. Spoke with LULÚ Seay, RN reported pt ate well, consumed 60% of breakfast this morning. Per notes, pt has EGD and colonoscopy scheduled tommorrow. Current Diet Order/ Nutrition Support pureed Pertinent Medications D5-0.9ns, novolog, remeron, kcl Pertinent Labs 06/21 Na 137, K 3.5, Cl 100, BUN 24, Cr 1.3, Glucose 186, AST 10, ALT 6, Alb 2.6 06/22 POC 383 Nutritional Hx/Data Height 5 ft Height (Calculated Centimeters) 152.4 Current Weight (lbs) 86 lb Weight (Calculated Kilograms) 39.0 Weight (Calculated Grams) 96696.9 Riley Body Weight 100 % Riley Body Weight 86 Body Mass Index (BMI) 16.7 Weight Status Underweight GI Symptoms GI Symptoms None Last BM none Difficult in: None Skin Integrity/Comment: intact Current %PO Fair (50-74%) Estimated Nutritional Goals Calories/Kcals/Kg 25-30 based on IBW 45kg Kcals Calculated 5840-6036 Protein g/k-1.2 Protein Calculated 45-54 Fluid: ml 1125-1350ml (1ml/kcal) Nutritional Problem 1. Problem Problem altered nutrition related lab values Etiology hx of DM Signs/Symptoms: Glucose 186, POC 383 Malnutrition Alert Protein-Calorie Malnutrition N/A Is there a minimum of two criteria No selected? Query Text:Check all the applicable criteria. A minimum of two criteria are recommended for diagnosis of either severe or non-severe malnutrition. Intervention/Recommendation Comments 1. Recommend CCHO, low sodium diet for optimal glycemic and BP control. RN notified. 2. Monitor PO intake, wt, labs and skin integrity 3. F/U as high risk in 2-3 days, 06/24-06/25 Expected Outcomes/Goals Expected Outcomes/Goals 1. PO intake to meet at least 75% of nutritional needs. 2. Wt stability, skin to remain intact, labs to improve
[2017-07-08] MEDS: Albuterol/Ipratropium Neb 3 ML AERS HHN SCH ×4 (00:50→19:00)
[2017-07-08] MEDS: INSULIN ASPART, RECOMBINANT 100 UNITS/ML SUBQ SCH ×4 (00:57→18:19)
[2017-07-08] MEDS: Pantoprazole 80 MG in Sodium Chloride 0.9% 100 ML IV SCH ×2 (01:15→18:15)
[2017-07-08] MEDS: Morphine Sulfate 2 mg/mL 1mL Syr IVP PRN ×2 (01:16→16:48)
[2017-07-08 05:02] LABS: INR 1.14 (0.5-1.4)
[2017-07-08 05:09] LABS: BUN - UREA NITROGEN 16 mg/dL (7-25); CALCIUM SERUM 8.8 mg/dL (8.6-10.3); CARBON DIOXIDE 24.9 mEq/L (21.0-31.0); CHLORIDE 112 mEq/L (98-107); CREATININE - SERUM 1.4 mg/dL (0.6-1.2); GLUCOSE 135 mg/dL (70-105); POTASSIUM SERUM 4.9 mEq/L (3.5-5.1); SODIUM SERUM 141 mEq/L (136-145)
[2017-07-08 05:17] LABS: % BASOPHILS 0.1 % (0.0-2.0); % EOSINOPHILS 0.8 % (0.0-5.0); % LYMPHOCYTES 13.1 % (20.0-50.0); % MONOCYTES 6.3 % (2.0-10.0); % NEUTROPHILS 79.7 % (40.0-80.0); EOSINOPHILE ABSOLUTE 0.1 Th/cmm (0.1-0.4); HEMATOCRIT 24.9 % (41.0-60); HEMOGLOBIN 8.4 gm/dL (12-16); LYMPHOCYTE ABSOLUTE 1.3 Th/cmm (1.5-3.0); MEAN CELL VOLUME 83.9 fl (81-100); MEAN CORPUSCULAR HEMOGLOBIN 28.2 pg (27.0-31.0); MEAN CORPUSCULAR HGB CONC 33.6 pg (28.0-36.0); MEAN PLATELET VOLUME 7.7 fl; MONOCYTE ABSOLUTE 0.6 Th/cmm (0.3-1.0); NEUTROPHILE ABSOLUTE 8.1 Th/cmm (1.8-8.0); PLATELET COUNT 325 Th/cmm (150-400); RED BLOOD COUNT 2.97 Mil/cmm (3.80-5.20); RED CELL DISTRIBUTION WIDTH 16.5 % (11.5-20.0); WHITE BLOOD COUNT 10.1 Th/cmm (4.8-10.8)
--- NOTE | 2017-07-08 08:36 | Diagnostic Imaging Report ---
Portable chest x-ray HISTORY: Pneumonia Compared with the prior exam of July 06, 2017, the overall heart size is normal. There is a faint 1.7 cm round density projecting over the right chest. As this is not identified on the prior exam, the finding is of doubtful significance. However, a follow-up radiograph is recommended. A nasogastric tube extends below the diaphragm into the region of the stomach. IMPRESSION: 1. Nasogastric tube placement as noted above 2. 1.7 cm faint round density projecting over the right chest. As this is not seen on the prior exam July 06, 2017, finding is of doubtful significance. However, a follow-up radiograph is recommended.
[2017-07-08] MEDS: D5-0.45NS w/40 mEq KCL 1,000 ML IV SCH (10:05)
--- NOTE | 2017-07-08 10:25 | Diagnostic Imaging Report ---
Portable chest x-ray HISTORY: Shortness of breath, vascular catheter placement Compared to prior exam performed earlier in the day (0718 hours), right-sided vascular catheter has been inserted. The tip is in the region of the superior vena cava. A nodular density projects over the right lower chest. Review of earlier exams demonstrates this is related to a nipple shadow. No acute focal pulmonary processes are seen. IMPRESSION: 1. New vascular catheter with the tip in the region of the superior vena cava 2. No acute pulmonary processes
[2017-07-08] MEDS: Lactobacillus Rhamnosus GG 15 Billion CFU CAP.SPRINK PO SCH (10:38)
--- NOTE | 2017-07-08 13:03 | Consultation ---
DATE OF CONSULTATION: 07/07/[address] Tobias. HISTORY AND PHYSICAL: This is a 76-year-old -Citizen Of [place] female patient who has a DVT in the left leg. The patient developed rectal bleeding. Following this, the patient was transferred to ICU. The patient has supraventricular tachycardia and hence Cardiology consult was requested. PAST MEDICAL HISTORY: DVT, left leg, iron deficiency anemia, diabetes mellitus type 2, hypertension, schizophrenia, right colon adenoma, and right hemicolectomy, and diabetic CKD stage 2. FAMILY HISTORY: Unremarkable. SOCIAL HISTORY: No history of smoking or alcohol abuse. ALLERGIES: None. PHYSICAL EXAMINATION: VITAL SIGNS: Blood pressure 130/80, pulse 120, and respirations 28. HEAD: Normocephalic. No lumps or bumps. EYES: Pupils equal, reactive to light. Fundi show AV nicking, sclerae white, conjunctivae pink. NECK: Carotid 2+. Normal upstroke. JVD flat. Thyroid not palpable. Lymph nodes not palpable. CHEST: Shows increased AP diameter. No kyphosis or scoliosis. LUNGS: Bilateral bronchovesicular breath sounds. Occasional wheeze. No rales. HEART: PMI fifth intercostal space with lateral to midclavicular line. S1 ____, S2, S3, S4. ABDOMEN: Soft. Liver, spleen not palpable. No organomegaly. Bowel sounds active. NEUROLOGIC: No focal neurological deficit. EXTREMITIES: Peripheral pulses 2+. No pedal edema. CLINICAL IMPRESSION: Rectal bleeding, supraventricular tachycardia, acute deep vein thrombosis left leg, iron deficiency anemia, diabetes mellitus type 2, diabetic chronic kidney disease stage 2, schizophrenia, hypertension, and right colon adenoma with right hemicolectomy. PLAN: The patient to continue present care. We will control the heart rate with Cardizem and also have evaluation by gaming worker for GI bleed. JOB# [id number]
[2017-07-08] MEDS: Albuterol Nebulizer 2.5mg/3mL HHN PRN (13:07)
[2017-07-08] MEDS: D5-0.45NS 1,000 ML IV SCH (13:25)
--- NOTE | 2017-07-08 14:03 | General Progress Note ---
Subjective - Review of Systems Service Date: 07/08/17 Events since last encounter: bloody NGT draniage and rectal bleeding Gi t obe informed Objective - Results Result Diagrams: 07/08/17 04:15 07/08/17 04:15 Recent Labs: Laboratory Last Values WBC 10.1 Th/cmm (4.8-10.8) 07/08/17 04:15 RBC 2.97 Mil/cmm (3.80-5.20) L 07/08/17 04:15 Hgb 8.4 gm/dL (12-16) L 07/08/17 04:15 Hct 24.9 % (41.0-60) L 07/08/17 04:15 MCV 83.9 fl (81-100) 07/08/17 04:15 MCH 28.2 pg (27.0-31.0) 07/08/17 04:15 MCHC Differential 33.6 pg (28.0-36.0) 07/08/17 04:15 RDW 16.5 % (11.5-20.0) 07/08/17 04:15 Plt Count 325 Th/cmm (150-400) 07/08/17 04:15 MPV 7.7 fl 07/08/17 04:15 Neutrophils % 79.7 % (40.0-80.0) 07/08/17 04:15 Band Neutrophils % 2 % (0-10) 07/04/17 04:30 Lymphocytes % 13.1 % (20.0-50.0) L 07/08/17 04:15 Monocytes % 6.3 % (2.0-10.0) 07/08/17 04:15 Eosinophils % 0.8 % (0.0-5.0) 07/08/17 04:15 Basophils % 0.1 % (0.0-2.0) 07/08/17 04:15 Neutrophils (Manual) 80 % (40-80) 07/04/17 04:30 Lymphocytes 12 % (20-50) L 07/04/17 04:30 Monocytes 2 % (2-10) 07/04/17 04:30 Eosinophils 4 % (0-5) 07/04/17 04:30 Hypochromia 1+ 07/04/17 04:30 Platelet Estimate ADEQUATE (NORMAL) 07/04/17 04:30 Polychromasia 1+ 07/04/17 04:30 Schistocytes 1+ 07/04/17 04:30 PT 12.0 SECONDS (9.5-11.5) H 07/08/17 04:15 INR 1.14 (0.5-1.4) 07/08/17 04:15 PTT (Actin FS) 25.0 SECONDS (26.0-38.0) L 07/08/17 04:15 D-Dimer 3600 ng/mL (100-400) H 06/21/17 18:20 Specimen Source Arterial 06/28/17 10:55 Sample Site Right Radial 06/28/17 10:55 pH 7.44 (7.35-7.45) 06/28/17 10:55 pCO2 36.0 mmHg (35.0-45.0) 06/28/17 10:55 pO2 100.0 mmHg (80.0-100.0) 06/28/17 10:55 HCO3 25.4 mEq/L (20.0-26.0) 06/28/17 10:55 Base Excess 0.6 mEq/L (-3.0-3.0) 06/28/17 10:55 O2 Saturation 98.0 % (92.0-100.0) 06/28/17 10:55 Rashid Test Positive 06/28/17 10:55 Vent Rate N/A 06/28/17 10:55 Inspired O2 28 06/28/17 10:55 Tidal Volume N/A 06/28/17 10:55 PEEP N/A 06/28/17 10:55 Pressure (ins/psv/peep) N/A 06/28/17 10:55 Critical Value DM 06/28/17 10:55 Sodium 141 mEq/L (136-145) 07/08/17 04:15 Potassium 4.9 mEq/L (3.5-5.1) 07/08/17 04:15 Chloride 112 mEq/L (98-107) H 07/08/17 04:15 Carbon Dioxide 24.9 mEq/L (21.0-31.0) 07/08/17 04:15 Anion Gap 9.0 (7.0-16.0) 07/08/17 04:15 BUN 16 mg/dL (7-25) 07/08/17 04:15 Creatinine 1.4 mg/dL (0.6-1.2) H 07/08/17 04:15 Est GFR ( Amer) TNP 07/08/17 04:15 Est GFR (Non-Af Amer) TNP 07/08/17 04:15 BUN/Creatinine Ratio 11.4 07/08/17 04:15 Glucose 135 mg/dL (70-105) H 07/08/17 04:15 POC Glucose 125 MG/DL (70 - 105) H 07/08/17 12:14 Hemoglobin A1c % 11.7 % (4.0-6.0) H 06/21/17 18:20 Calcium 8.8 mg/dL (8.6-10.3) 07/08/17 04:15 Magnesium 1.8 mg/dL (1.9-2.7) L 07/02/17 03:41 Iron 19 ug/dL (27-139) L 06/22/17 05:20 TIBC 176 ug/dL (250-450) L 06/22/17 05:20 Iron Saturation 11 % (15-55) L 06/22/17 05:20 Unsaturated IBC 157 ug/dL (118-369) 06/22/17 05:20 Ferritin 164 ng/mL (15-150) H 06/22/17 05:20 Total Bilirubin 0.5 mg/dL (0.3-1.0) 07/04/17 04:30 AST 16 U/L (13-39) 07/04/17 04:30 ALT 8 U/L (7-52) 07/04/17 04:30 Alkaline Phosphatase 95 U/L (34-104) 07/04/17 04:30 Ammonia 38 umol/L (16-53) 07/08/17 04:15 Creatine Kinase 39 U/L (30-223) 06/21/17 18:20 Troponin I 0.01 ng/mL (0.01-0.05) 06/21/17 18:20 B-Natriuretic Peptide 113.0 pg/mL (5.0-100.0) H 07/08/17 04:15 Total Protein 5.0 gm/dL (6.0-8.3) L 07/04/17 04:30 Albumin 2.0 gm/dL (3.7-5.3) L 07/04/17 04:30 Globulin 3.0 gm/dL 07/04/17 04:30 Albumin/Globulin Ratio 0.7 (1.0-1.8) L 07/04/17 04:30 Triglycerides 104 mg/dL (<150) 06/21/17 18:20 Cholesterol 129 mg/dL (<200) 06/21/17 18:20 LDL Cholesterol Direct 65 mg/dL (75-193) L 06/21/17 18:20 HDL Cholesterol 43 mg/dL (23-92) 06/21/17 18:20 Vitamin B12 1797 pg/mL (232-1245) H 07/02/17 03:41 Folic Acid 10.3 ng/mL (>3.0) 07/02/17 03:41 Helicobacter pylori Ab POSITIVE (NEGATIVE) 06/23/17 10:50 Blood Type O POSITIVE 07/03/17 08:38 Antibody Screen NEGATIVE 07/03/17 08:38 Crossmatch See Detail 07/03/17 08:38 - Physical Exam Vitals and I&O: Vital Signs Temp 97.3 F 07/08/17 06:00 Pulse 94 07/08/17 13:09 Resp 18 07/08/17 13:09 BP 173/79 07/08/17 10:38 Pulse Ox 100 07/08/17 13:09 Intake & Output 07/07/17 07/08/17 07/08/17 18:59 06:59 18:59 Intake Total 1100 1091.667 100 Output Total 550 820 Balance 550 1091.667 -720 Weight (lbs) 58.06 kg 58.06 kg Intake: Intake, IV Amount 1100 1091.667 D5-0.45NS w/40 mEq KCL 1, 1000 1000 000 ml @ 75 mls/hr IV . [id number] ED Rx#:[id number] Pantoprazole 80 mg In 100 91.667 Sodium Chloride 0.9% 100 ml @ 10 mls/hr IV Q10H ED Rx#:[id number] Other 100 Output: Gastric Drainage 270 Urine 550 550 Other: # Bowel Movements 1 Stool Characteristics Soft Soft Soft Formed Mucoid Black Bloody Bloody Active Medications: Current Medications Acetaminophen (Tylenol) 650 mg PO Q4H PRN PRN Reason: Pain Or Fever above 101 Stop: 08/20/17 19:40 Acetaminophen/Hydrocodone Bitart ([place] 5mg/325mg) 1 tab PO Q4H PRN PRN Reason: Pain (Severe) Stop: 09/04/17 13:12 Al Hydrox/Mg Hydrox/Simethicone (Maalox) 30 ml PO Q6H PRN PRN Reason: Dyspepsia Stop: 08/20/17 19:40 Albuterol Sulfate (Albuterol 2.5mg/3ml Neb Ud) 2.5 mg HHN Q2HRT PRN PRN Reason: Shortness of Breath or Wheeze Stop: 08/20/17 19:40 Albuterol/Ipratropium (Duoneb Neb) 3 ml HHN Q6HRT ED Stop: 08/30/17 18:59 Last Admin: 07/08/17 13:08 Dose: 3 ml Amlodipine Besylate (Norvasc) 10 mg PO DAILY [facility] Stop: 09/06/17 08:59 Last Admin: 07/08/17 10:38 Dose: Not Given Clonidine HCl ([id number]-Elv-5) 1 patch TD We [facility] Stop: 08/28/17 13:14 Last Admin: 07/06/17 12:44 Dose: 1 patch Diltiazem HCl (Cardizem) 20 mg IVP Q4H PRN PRN Reason: HR> 120 Stop: 09/04/17 17:55 Guaifenesin (Robitussin) 200 mg PO Q4HR PRN PRN Reason: Cough or Congestion Stop: 08/20/17 19:40 Haloperidol Decanoate (Haldol Dec) 25 mg IM QMONTH [facility] Stop: 08/23/17 09:59 Last Admin: 06/24/17 09:10 Dose: 25 mg Hydralazine HCl (Apresoline 20 Mg/Ml) 10 mg IV Q6HR PRN PRN Reason: SBP ABOVE 160 Stop: 08/25/17 12:20 Last Admin: 07/08/17 05:47 Dose: 10 mg Pantoprazole Sodium 80 mg/ (Sodium Chloride) 100 mls @ 10 mls/hr IV Q10H [facility] Stop: 09/04/17 19:14 Last Admin: 07/08/17 01:15 Dose: 10 mls/hr Cefepime HCl 0.5 gm/ Dextrose 50 mls @ 100 mls/hr IV Q24H [facility] Stop: 09/06/17 13:59 Dextrose/Sodium Chloride (D5-0.45ns) 1,000 mls @ 80 mls/hr IV .[id number] [facility] Stop: 09/06/17 13:14 Last Admin: 07/08/17 13:25 Dose: 80 mls/hr Insulin Aspart (Novolog) 0 units SUBQ Q6HR ED PRN Reason: Protocol Stop: 09/03/17 00:00 Last Admin: 07/08/17 12:24 Dose: Not Given Ipratropium [place] (Atrovent Neb 0.5mg/2.5ml) 0.5 mg IH Q2HRT PRN PRN Reason: Shortness of Breath or Wheeze Stop: 08/20/17 19:40 Lactobacillus Rhamnosus (Culturelle 15b) 1 each PO DAILY [facility] Stop: 08/30/17 08:59 Last Admin: 07/08/17 10:38 Dose: Not Given Mirtazapine (Remeron) 15 mg PO HS ED PRN Reason: Protocol Stop: 08/20/17 20:59 Last Admin: 07/07/17 21:20 Dose: 15 mg Miscellaneous (Probiotic Screen) 1 ea PRN PRN PRN Reason: PROTOCOL Stop: 08/29/17 11:59 Miscellaneous (Tpn Per Pharmacy) 1 ea PRN PRN PRN Reason: PROTOCOL Stop: 09/06/17 13:12 Morphine Sulfate (Morphine) 2 mg IVP Q4HR PRN PRN Reason: Pain (Moderate) Stop: 09/04/17 19:01 Last Admin: 07/08/17 01:16 Dose: 2 mg Morphine Sulfate (Morphine) 2 mg IVP Q4H PRN PRN Reason: Pain (Severe) Stop: 09/06/17 13:06 Nitroglycerin (Nitrostat) 0.4 mg SL Q5MIN PRN PRN Reason: Chest Pain Stop: 08/20/17 19:40 Ondansetron HCl (Zofran Odt) 4 mg PO Q6H PRN PRN Reason: Nausea / Vomiting Stop: 09/04/17 13:12 General: Other (ngt feeding) HEENT: Atraumatic Neck: Supple Cardiovascular: Regular rate Abdomen: Bowel sounds, Soft, Other (dressing in midline no bleeding) Extremities: Other (right arm hematoma improved) - Procedures Procedures: Procedures Procedure Code Date PARTIAL REMOVAL OF COLON 66935 06/21/17 RESECTION OF RIGHT LARGE INTESTINE, OPEN APPROACH [id number] 06/21/17 Nutritional Asmnt/Malnutr-PDOC - Dietary Evaluation Malnutrition Findings (Please click <Entered> for more info): Nutritional Asmnt/Malnutrition Start: 06/22/17 18: 04 Text: Status: Complete Freq: Document 06/22/17 18:04 LCHARSHAD (Rec: 06/22/17 18:15 LCHENG [email or web address]) Nutritional Asmnt/Malnutrition Patient General Information Nutritional Screening High Risk Consult Diagnosis left lower extremity DVT, severe anemia, CHF, HTN Pertinent Medical Hx/Surgical Hx DM, anemia, renal stones, schizophrenia Subjective Information Pt seen lying in bed, confused at time of visit. Spoke with LULÚ Seay, RN reported pt ate well, consumed 60% of breakfast this morning. Per notes, pt has EGD and colonoscopy scheduled tommorrow. Current Diet Order/ Nutrition Support pureed Pertinent Medications D5-0.9ns, novolog, remeron, kcl Pertinent Labs 06/21 Na 137, K 3.5, Cl 100, BUN 24, Cr 1.3, Glucose 186, AST 10, ALT 6, Alb 2.6 06/22 POC 383 Nutritional Hx/Data Height 1.52 m Height (Calculated Centimeters) 152.4 Current Weight (lbs) 39.009 kg Weight (Calculated Kilograms) 39.0 Weight (Calculated Grams) 39381.9 [place] Body Weight 100 % [place] Body Weight 86 Body Mass Index (BMI) 16.7 Weight Status Underweight GI Symptoms GI Symptoms None Last BM none Difficult in: None Skin Integrity/Comment: intact Current %PO Fair (50-74%) Estimated Nutritional Goals Calories/Kcals/Kg 25-30 based on IBW 45kg Kcals Calculated [id number] Protein g/k-1.2 Protein Calculated 45-54 Fluid: ml 1125-1350ml (1ml/kcal) Nutritional Problem 1. Problem Problem altered nutrition related lab values Etiology hx of DM Signs/Symptoms: Glucose 186, POC 383 Malnutrition Alert Protein-Calorie Malnutrition N/A Is there a minimum of two criteria No selected? Query Text:Check all the applicable criteria. A minimum of two criteria are recommended for diagnosis of either severe or non-severe malnutrition. Intervention/Recommendation Comments 1. Recommend [facility], low sodium diet for optimal glycemic and BP control. RN notified. 2. Monitor PO intake, wt, labs and skin integrity 3. F/U as high risk in 2-3 days, 06/24-06/25 Expected Outcomes/Goals Expected Outcomes/Goals 1. PO intake to meet at least 75% of nutritional needs. 2. Wt stability, skin to remain intact, labs to improve
--- NOTE | 2017-07-08 15:20 | Internal Medicine Prog Note ---
Internal Medicine Subjective - Subjective Service Date: 07/08/17 (patient with ngt connected to intermittent suction noted with bleeding. ) Patient is:: awake, non-interactive Patient Complaints of:: congestion Per staff patient has:: no adverse event, no episodes of fall, tolerating meds Internal Medicine Objective - Results Result Diagrams: 07/08/17 04:15 07/08/17 04:15 Recent Labs: Laboratory Last Values WBC 10.1 Th/cmm (4.8-10.8) 07/08/17 04:15 RBC 2.97 Mil/cmm (3.80-5.20) L 07/08/17 04:15 Hgb 8.4 gm/dL (12-16) L 07/08/17 04:15 Hct 24.9 % (41.0-60) L 07/08/17 04:15 MCV 83.9 fl (81-100) 07/08/17 04:15 MCH 28.2 pg (27.0-31.0) 07/08/17 04:15 MCHC Differential 33.6 pg (28.0-36.0) 07/08/17 04:15 RDW 16.5 % (11.5-20.0) 07/08/17 04:15 Plt Count 325 Th/cmm (150-400) 07/08/17 04:15 MPV 7.7 fl 07/08/17 04:15 Neutrophils % 79.7 % (40.0-80.0) 07/08/17 04:15 Band Neutrophils % 2 % (0-10) 07/04/17 04:30 Lymphocytes % 13.1 % (20.0-50.0) L 07/08/17 04:15 Monocytes % 6.3 % (2.0-10.0) 07/08/17 04:15 Eosinophils % 0.8 % (0.0-5.0) 07/08/17 04:15 Basophils % 0.1 % (0.0-2.0) 07/08/17 04:15 Neutrophils (Manual) 80 % (40-80) 07/04/17 04:30 Lymphocytes 12 % (20-50) L 07/04/17 04:30 Monocytes 2 % (2-10) 07/04/17 04:30 Eosinophils 4 % (0-5) 07/04/17 04:30 Hypochromia 1+ 07/04/17 04:30 Platelet Estimate ADEQUATE (NORMAL) 07/04/17 04:30 Polychromasia 1+ 07/04/17 04:30 Schistocytes 1+ 07/04/17 04:30 PT 12.0 SECONDS (9.5-11.5) H 07/08/17 04:15 INR 1.14 (0.5-1.4) 07/08/17 04:15 PTT (Actin FS) 25.0 SECONDS (26.0-38.0) L 07/08/17 04:15 D-Dimer 3600 ng/mL (100-400) H 06/21/17 18:20 Specimen Source Arterial 06/28/17 10:55 Sample Site Right Radial 06/28/17 10:55 pH 7.44 (7.35-7.45) 06/28/17 10:55 pCO2 36.0 mmHg (35.0-45.0) 06/28/17 10:55 pO2 100.0 mmHg (80.0-100.0) 06/28/17 10:55 HCO3 25.4 mEq/L (20.0-26.0) 06/28/17 10:55 Base Excess 0.6 mEq/L (-3.0-3.0) 06/28/17 10:55 O2 Saturation 98.0 % (92.0-100.0) 06/28/17 10:55 Rashid Test Positive 06/28/17 10:55 Vent Rate N/A 06/28/17 10:55 Inspired O2 28 06/28/17 10:55 Tidal Volume N/A 06/28/17 10:55 PEEP N/A 06/28/17 10:55 Pressure (ins/psv/peep) N/A 06/28/17 10:55 Critical Value DM 06/28/17 10:55 Sodium 141 mEq/L (136-145) 07/08/17 04:15 Potassium 4.9 mEq/L (3.5-5.1) 07/08/17 04:15 Chloride 112 mEq/L (98-107) H 07/08/17 04:15 Carbon Dioxide 24.9 mEq/L (21.0-31.0) 07/08/17 04:15 Anion Gap 9.0 (7.0-16.0) 07/08/17 04:15 BUN 16 mg/dL (7-25) 07/08/17 04:15 Creatinine 1.4 mg/dL (0.6-1.2) H 07/08/17 04:15 Est GFR ( Amer) TNP 07/08/17 04:15 Est GFR (Non-Af Amer) TNP 07/08/17 04:15 BUN/Creatinine Ratio 11.4 07/08/17 04:15 Glucose 135 mg/dL (70-105) H 07/08/17 04:15 POC Glucose 125 MG/DL (70 - 105) H 07/08/17 12:14 Hemoglobin A1c % 11.7 % (4.0-6.0) H 06/21/17 18:20 Calcium 8.8 mg/dL (8.6-10.3) 07/08/17 04:15 Magnesium 1.8 mg/dL (1.9-2.7) L 07/02/17 03:41 Iron 19 ug/dL (27-139) L 06/22/17 05:20 TIBC 176 ug/dL (250-450) L 06/22/17 05:20 Iron Saturation 11 % (15-55) L 06/22/17 05:20 Unsaturated IBC 157 ug/dL (118-369) 06/22/17 05:20 Ferritin 164 ng/mL (15-150) H 06/22/17 05:20 Total Bilirubin 0.5 mg/dL (0.3-1.0) 07/04/17 04:30 AST 16 U/L (13-39) 07/04/17 04:30 ALT 8 U/L (7-52) 07/04/17 04:30 Alkaline Phosphatase 95 U/L (34-104) 07/04/17 04:30 Ammonia 38 umol/L (16-53) 07/08/17 04:15 Creatine Kinase 39 U/L (30-223) 06/21/17 18:20 Troponin I 0.01 ng/mL (0.01-0.05) 06/21/17 18:20 B-Natriuretic Peptide 113.0 pg/mL (5.0-100.0) H 07/08/17 04:15 Total Protein 5.0 gm/dL (6.0-8.3) L 07/04/17 04:30 Albumin 2.0 gm/dL (3.7-5.3) L 07/04/17 04:30 Globulin 3.0 gm/dL 07/04/17 04:30 Albumin/Globulin Ratio 0.7 (1.0-1.8) L 07/04/17 04:30 Triglycerides 104 mg/dL (<150) 06/21/17 18:20 Cholesterol 129 mg/dL (<200) 06/21/17 18:20 LDL Cholesterol Direct 65 mg/dL (75-193) L 06/21/17 18:20 HDL Cholesterol 43 mg/dL (23-92) 06/21/17 18:20 Vitamin B12 1797 pg/mL (232-1245) H 07/02/17 03:41 Folic Acid 10.3 ng/mL (>3.0) 07/02/17 03:41 Helicobacter pylori Ab POSITIVE (NEGATIVE) 06/23/17 10:50 Blood Type O POSITIVE 07/03/17 08:38 Antibody Screen NEGATIVE 07/03/17 08:38 Crossmatch See Detail 07/03/17 08:38 - Physical Exam Vitals and I&O: Vital Signs Temp 97.3 F 07/08/17 14:00 Pulse 91 07/08/17 15:00 Resp 17 07/08/17 15:00 BP 152/74 07/08/17 15:00 Pulse Ox 100 07/08/17 15:00 Intake & Output 07/07/17 07/08/17 07/08/17 18:59 06:59 18:59 Intake Total 1100 1091.667 100 Output Total 550 820 Balance 550 1091.667 -720 Weight (lbs) 128 lb 128 lb Intake: Intake, IV Amount 1100 1091.667 D5-0.45NS w/40 mEq KCL 1, 1000 1000 000 ml @ 75 mls/hr IV . [id number] ED Rx#:[id number] Pantoprazole 80 mg In 100 91.667 Sodium Chloride 0.9% 100 ml @ 10 mls/hr IV Q10H ED Rx#:[id number] Other 100 Output: Gastric Drainage 270 Urine 550 550 Other: # Bowel Movements 1 Stool Characteristics Soft Soft Soft Formed Mucoid Black Bloody Bloody Active Medications: Current Medications Acetaminophen (Tylenol) 650 mg PO Q4H PRN PRN Reason: Pain Or Fever above 101 Stop: 08/20/17 19:40 Acetaminophen/Hydrocodone Bitart ([place] 5mg/325mg) 1 tab PO Q4H PRN PRN Reason: Pain (Severe) Stop: 09/04/17 13:12 Al Hydrox/Mg Hydrox/Simethicone (Maalox) 30 ml PO Q6H PRN PRN Reason: Dyspepsia Stop: 08/20/17 19:40 Albuterol Sulfate (Albuterol 2.5mg/3ml Neb Ud) 2.5 mg HHN Q2HRT PRN PRN Reason: Shortness of Breath or Wheeze Stop: 08/20/17 19:40 Albuterol/Ipratropium (Duoneb Neb) 3 ml HHN Q6HRT ED Stop: 08/30/17 18:59 Last Admin: 07/08/17 13:08 Dose: 3 ml Amlodipine Besylate (Norvasc) 10 mg PO DAILY [facility] Stop: 09/06/17 08:59 Last Admin: 07/08/17 10:38 Dose: Not Given Clonidine HCl (Psdzhfav-Jwx-3) 1 patch TD We [facility] Stop: 08/28/17 13:14 Last Admin: 07/06/17 12:44 Dose: 1 patch Diltiazem HCl (Cardizem) 20 mg IVP Q4H PRN PRN Reason: HR> 120 Stop: 09/04/17 17:55 Guaifenesin (Robitussin) 200 mg PO Q4HR PRN PRN Reason: Cough or Congestion Stop: 08/20/17 19:40 Haloperidol Decanoate (Haldol Dec) 25 mg IM QMONTH [facility] Stop: 08/23/17 09:59 Last Admin: 06/24/17 09:10 Dose: 25 mg Hydralazine HCl (Apresoline 20 Mg/Ml) 10 mg IV Q6HR PRN PRN Reason: SBP ABOVE 160 Stop: 08/25/17 12:20 Last Admin: 07/08/17 05:47 Dose: 10 mg Pantoprazole Sodium 80 mg/ (Sodium Chloride) 100 mls @ 10 mls/hr IV Q10H [facility] Stop: 09/04/17 19:14 Last Admin: 07/08/17 01:15 Dose: 10 mls/hr Cefepime HCl 0.5 gm/ Dextrose 50 mls @ 100 mls/hr IV Q24H [facility] Stop: 09/06/17 13:59 Dextrose/Sodium Chloride (D5-0.45ns) 1,000 mls @ 80 mls/hr IV .[id number] [facility] Stop: 09/06/17 13:14 Last Admin: 07/08/17 13:25 Dose: 80 mls/hr Insulin Aspart (Novolog) 0 units SUBQ Q6HR ED PRN Reason: Protocol Stop: 09/03/17 00:00 Last Admin: 07/08/17 12:24 Dose: Not Given Ipratropium [place] (Atrovent Neb 0.5mg/2.5ml) 0.5 mg IH Q2HRT PRN PRN Reason: Shortness of Breath or Wheeze Stop: 08/20/17 19:40 Lactobacillus Rhamnosus (Culturelle 15b) 1 each PO DAILY [facility] Stop: 08/30/17 08:59 Last Admin: 07/08/17 10:38 Dose: Not Given Mirtazapine (Remeron) 15 mg PO HS [facility] PRN Reason: Protocol Stop: 08/20/17 20:59 Last Admin: 07/07/17 21:20 Dose: 15 mg Miscellaneous (Probiotic Screen) 1 ea PRN PRN PRN Reason: PROTOCOL Stop: 08/29/17 11:59 Miscellaneous (Tpn Per Pharmacy) 1 ea PRN PRN PRN Reason: PROTOCOL Stop: 09/06/17 13:12 Morphine Sulfate (Morphine) 2 mg IVP Q4HR PRN PRN Reason: Pain (Moderate) Stop: 09/04/17 19:01 Last Admin: 07/08/17 01:16 Dose: 2 mg Morphine Sulfate (Morphine) 2 mg IVP Q4H PRN PRN Reason: Pain (Severe) Stop: 09/06/17 13:06 Nitroglycerin (Nitrostat) 0.4 mg SL Q5MIN PRN PRN Reason: Chest Pain Stop: 08/20/17 19:40 Ondansetron HCl (Zofran Odt) 4 mg PO Q6H PRN PRN Reason: Nausea / Vomiting Stop: 09/04/17 13:12 General: weak, alert HEENT: NC/AT, PERRLA Neck: Supple Lungs: ronchi Cardiovascular: RRR, Normal S1, Normal S2, without murmur Abdomen: soft, non-tender, non-distended, positive bowel sound Extremities: excoriation Neurological: alert - Procedures Procedures: Procedures Procedure Code Date PARTIAL REMOVAL OF COLON 93532 06/21/17 RESECTION OF RIGHT LARGE INTESTINE, OPEN APPROACH [id number] 06/21/17 Internal Medicine Assmt/Plan - Assessment Assessment: acute dvt cecal mass s/p exploratory lap right right hemicolectomy severe anemia dm2 schizophrenia htn psychosis hypokalemia - Plan Plan: monitor h/h monitor electrolytes follow up labs in am will follow cardiology clinical consultant recommendations Nutritional Asmnt/Malnutr-PDOC - Dietary Evaluation Malnutrition Findings (Please click <Entered> for more info): Nutritional Asmnt/Malnutrition Start: 06/22/17 18: 04 Text: Status: Complete Freq: Document 06/22/17 18:04 JENY (Rec: 06/22/17 18:15 [email or web address] [email or web address]) Nutritional Asmnt/Malnutrition Patient General Information Nutritional Screening High Risk Consult Diagnosis left lower extremity DVT, severe anemia, CHF, HTN Pertinent Medical Hx/Surgical Hx DM, anemia, renal stones, schizophrenia Subjective Information Pt seen lying in bed, confused at time of visit. Spoke with RN Dawood, RN reported pt ate well, consumed 60% of breakfast this morning. Per notes, pt has EGD and colonoscopy scheduled tommorrow. Current Diet Order/ Nutrition Support pureed Pertinent Medications D5-0.9ns, novolog, remeron, kcl Pertinent Labs 06/21 Na 137, K 3.5, Cl 100, BUN 24, Cr 1.3, Glucose 186, AST 10, ALT 6, Alb 2.6 06/22 POC 383 Nutritional Hx/Data Height 5 ft Height (Calculated Centimeters) 152.4 Current Weight (lbs) 86 lb Weight (Calculated Kilograms) 39.0 Weight (Calculated Grams) 42054.9 [place] Body Weight 100 % [place] Body Weight 86 Body Mass Index (BMI) 16.7 Weight Status Underweight GI Symptoms GI Symptoms None Last BM none Difficult in: None Skin Integrity/Comment: intact Current %PO Fair (50-74%) Estimated Nutritional Goals Calories/Kcals/Kg 25-30 based on IBW 45kg Kcals Calculated 4883-9264 Protein g/k-1.2 Protein Calculated 45-54 Fluid: ml 1125-1350ml (1ml/kcal) Nutritional Problem 1. Problem Problem altered nutrition related lab values Etiology hx of DM Signs/Symptoms: Glucose 186, POC 383 Malnutrition Alert Protein-Calorie Malnutrition N/A Is there a minimum of two criteria No selected? Query Text:Check all the applicable criteria. A minimum of two criteria are recommended for diagnosis of either severe or non-severe malnutrition. Intervention/Recommendation Comments 1. Recommend CCHO, low sodium diet for optimal glycemic and BP control. RN notified. 2. Monitor PO intake, wt, labs and skin integrity 3. F/U as high risk in 2-3 days, 06/24-06/25 Expected Outcomes/Goals Expected Outcomes/Goals 1. PO intake to meet at least 75% of nutritional needs. 2. Wt stability, skin to remain intact, labs to improve
--- NOTE | 2017-07-08 15:27 | General Progress Note ---
Subjective - Review of Systems Service Date: 07/08/17 Objective - Results Result Diagrams: 07/08/17 04:15 07/08/17 04:15 Recent Labs: Laboratory Last Values WBC 10.1 Th/cmm (4.8-10.8) 07/08/17 04:15 RBC 2.97 Mil/cmm (3.80-5.20) L 07/08/17 04:15 Hgb 8.4 gm/dL (12-16) L 07/08/17 04:15 Hct 24.9 % (41.0-60) L 07/08/17 04:15 MCV 83.9 fl (81-100) 07/08/17 04:15 MCH 28.2 pg (27.0-31.0) 07/08/17 04:15 MCHC Differential 33.6 pg (28.0-36.0) 07/08/17 04:15 RDW 16.5 % (11.5-20.0) 07/08/17 04:15 Plt Count 325 Th/cmm (150-400) 07/08/17 04:15 MPV 7.7 fl 07/08/17 04:15 Neutrophils % 79.7 % (40.0-80.0) 07/08/17 04:15 Band Neutrophils % 2 % (0-10) 07/04/17 04:30 Lymphocytes % 13.1 % (20.0-50.0) L 07/08/17 04:15 Monocytes % 6.3 % (2.0-10.0) 07/08/17 04:15 Eosinophils % 0.8 % (0.0-5.0) 07/08/17 04:15 Basophils % 0.1 % (0.0-2.0) 07/08/17 04:15 Neutrophils (Manual) 80 % (40-80) 07/04/17 04:30 Lymphocytes 12 % (20-50) L 07/04/17 04:30 Monocytes 2 % (2-10) 07/04/17 04:30 Eosinophils 4 % (0-5) 07/04/17 04:30 Hypochromia 1+ 07/04/17 04:30 Platelet Estimate ADEQUATE (NORMAL) 07/04/17 04:30 Polychromasia 1+ 07/04/17 04:30 Schistocytes 1+ 07/04/17 04:30 PT 12.0 SECONDS (9.5-11.5) H 07/08/17 04:15 INR 1.14 (0.5-1.4) 07/08/17 04:15 PTT (Actin FS) 25.0 SECONDS (26.0-38.0) L 07/08/17 04:15 D-Dimer 3600 ng/mL (100-400) H 06/21/17 18:20 Specimen Source Arterial 06/28/17 10:55 Sample Site Right Radial 06/28/17 10:55 pH 7.44 (7.35-7.45) 06/28/17 10:55 pCO2 36.0 mmHg (35.0-45.0) 06/28/17 10:55 pO2 100.0 mmHg (80.0-100.0) 06/28/17 10:55 HCO3 25.4 mEq/L (20.0-26.0) 06/28/17 10:55 Base Excess 0.6 mEq/L (-3.0-3.0) 06/28/17 10:55 O2 Saturation 98.0 % (92.0-100.0) 06/28/17 10:55 Rashid Test Positive 06/28/17 10:55 Vent Rate N/A 06/28/17 10:55 Inspired O2 28 06/28/17 10:55 Tidal Volume N/A 06/28/17 10:55 PEEP N/A 06/28/17 10:55 Pressure (ins/psv/peep) N/A 06/28/17 10:55 Critical Value DM 06/28/17 10:55 Sodium 141 mEq/L (136-145) 07/08/17 04:15 Potassium 4.9 mEq/L (3.5-5.1) 07/08/17 04:15 Chloride 112 mEq/L (98-107) H 07/08/17 04:15 Carbon Dioxide 24.9 mEq/L (21.0-31.0) 07/08/17 04:15 Anion Gap 9.0 (7.0-16.0) 07/08/17 04:15 BUN 16 mg/dL (7-25) 07/08/17 04:15 Creatinine 1.4 mg/dL (0.6-1.2) H 07/08/17 04:15 Est GFR ( Amer) TNP 07/08/17 04:15 Est GFR (Non-Af Amer) TNP 07/08/17 04:15 BUN/Creatinine Ratio 11.4 07/08/17 04:15 Glucose 135 mg/dL (70-105) H 07/08/17 04:15 POC Glucose 125 MG/DL (70 - 105) H 07/08/17 12:14 Hemoglobin A1c % 11.7 % (4.0-6.0) H 06/21/17 18:20 Calcium 8.8 mg/dL (8.6-10.3) 07/08/17 04:15 Magnesium 1.8 mg/dL (1.9-2.7) L 07/02/17 03:41 Iron 19 ug/dL (27-139) L 06/22/17 05:20 TIBC 176 ug/dL (250-450) L 06/22/17 05:20 Iron Saturation 11 % (15-55) L 06/22/17 05:20 Unsaturated IBC 157 ug/dL (118-369) 06/22/17 05:20 Ferritin 164 ng/mL (15-150) H 06/22/17 05:20 Total Bilirubin 0.5 mg/dL (0.3-1.0) 07/04/17 04:30 AST 16 U/L (13-39) 07/04/17 04:30 ALT 8 U/L (7-52) 07/04/17 04:30 Alkaline Phosphatase 95 U/L (34-104) 07/04/17 04:30 Ammonia 38 umol/L (16-53) 07/08/17 04:15 Creatine Kinase 39 U/L (30-223) 06/21/17 18:20 Troponin I 0.01 ng/mL (0.01-0.05) 06/21/17 18:20 B-Natriuretic Peptide 113.0 pg/mL (5.0-100.0) H 07/08/17 04:15 Total Protein 5.0 gm/dL (6.0-8.3) L 07/04/17 04:30 Albumin 2.0 gm/dL (3.7-5.3) L 07/04/17 04:30 Globulin 3.0 gm/dL 07/04/17 04:30 Albumin/Globulin Ratio 0.7 (1.0-1.8) L 07/04/17 04:30 Triglycerides 104 mg/dL (<150) 06/21/17 18:20 Cholesterol 129 mg/dL (<200) 06/21/17 18:20 LDL Cholesterol Direct 65 mg/dL (75-193) L 06/21/17 18:20 HDL Cholesterol 43 mg/dL (23-92) 06/21/17 18:20 Vitamin B12 1797 pg/mL (232-1245) H 07/02/17 03:41 Folic Acid 10.3 ng/mL (>3.0) 07/02/17 03:41 Helicobacter pylori Ab POSITIVE (NEGATIVE) 06/23/17 10:50 Blood Type O POSITIVE 07/03/17 08:38 Antibody Screen NEGATIVE 07/03/17 08:38 Crossmatch See Detail 07/03/17 08:38 - Physical Exam Vitals and I&O: Vital Signs Temp 97.3 F 07/08/17 06:00 Pulse 94 07/08/17 13:09 Resp 18 07/08/17 13:09 BP 173/79 07/08/17 10:38 Pulse Ox 100 07/08/17 13:09 Intake & Output 07/07/17 07/08/17 07/08/17 18:59 06:59 18:59 Intake Total 1100 1091.667 100 Output Total 550 820 Balance 550 1091.667 -720 Weight (lbs) 58.06 kg 58.06 kg Intake: Intake, IV Amount 1100 1091.667 D5-0.45NS w/40 mEq KCL 1, 1000 1000 000 ml @ 75 mls/hr IV . [id number] ED Rx#:[id number] Pantoprazole 80 mg In 100 91.667 Sodium Chloride 0.9% 100 ml @ 10 mls/hr IV Q10H [facility] Rx#:[id number] Other 100 Output: Gastric Drainage 270 Urine 550 550 Other: # Bowel Movements 1 Stool Characteristics Soft Soft Soft Formed Mucoid Black Bloody Bloody Active Medications: Current Medications Acetaminophen (Tylenol) 650 mg PO Q4H PRN PRN Reason: Pain Or Fever above 101 Stop: 08/20/17 19:40 Acetaminophen/Hydrocodone Bitart ([place] 5mg/325mg) 1 tab PO Q4H PRN PRN Reason: Pain (Severe) Stop: 09/04/17 13:12 Al Hydrox/Mg Hydrox/Simethicone (Maalox) 30 ml PO Q6H PRN PRN Reason: Dyspepsia Stop: 08/20/17 19:40 Albuterol Sulfate (Albuterol 2.5mg/3ml Neb Ud) 2.5 mg HHN Q2HRT PRN PRN Reason: Shortness of Breath or Wheeze Stop: 08/20/17 19:40 Albuterol/Ipratropium (Duoneb Neb) 3 ml HHN Q6HRT ED Stop: 08/30/17 18:59 Last Admin: 07/08/17 13:08 Dose: 3 ml Amlodipine Besylate (Norvasc) 10 mg PO DAILY [facility] Stop: 09/06/17 08:59 Last Admin: 07/08/17 10:38 Dose: Not Given Clonidine HCl (Rbnwymad-Lkm-2) 1 patch TD We [facility] Stop: 08/28/17 13:14 Last Admin: 07/06/17 12:44 Dose: 1 patch Diltiazem HCl (Cardizem) 20 mg IVP Q4H PRN PRN Reason: HR> 120 Stop: 09/04/17 17:55 Guaifenesin (Robitussin) 200 mg PO Q4HR PRN PRN Reason: Cough or Congestion Stop: 08/20/17 19:40 Haloperidol Decanoate (Haldol Dec) 25 mg IM QMONTH [facility] Stop: 08/23/17 09:59 Last Admin: 06/24/17 09:10 Dose: 25 mg Hydralazine HCl (Apresoline 20 Mg/Ml) 10 mg IV Q6HR PRN PRN Reason: SBP ABOVE 160 Stop: 08/25/17 12:20 Last Admin: 07/08/17 05:47 Dose: 10 mg Pantoprazole Sodium 80 mg/ (Sodium Chloride) 100 mls @ 10 mls/hr IV Q10H [facility] Stop: 09/04/17 19:14 Last Admin: 07/08/17 01:15 Dose: 10 mls/hr Cefepime HCl 0.5 gm/ Dextrose 50 mls @ 100 mls/hr IV Q24H [facility] Stop: 09/06/17 13:59 Dextrose/Sodium Chloride (D5-0.45ns) 1,000 mls @ 80 mls/hr IV .[id number] ED Stop: 09/06/17 13:14 Last Admin: 07/08/17 13:25 Dose: 80 mls/hr Insulin Aspart (Novolog) 0 units SUBQ Q6HR ED PRN Reason: Protocol Stop: 09/03/17 00:00 Last Admin: 07/08/17 12:24 Dose: Not Given Ipratropium [place] (Atrovent Neb 0.5mg/2.5ml) 0.5 mg IH Q2HRT PRN PRN Reason: Shortness of Breath or Wheeze Stop: 08/20/17 19:40 Lactobacillus Rhamnosus (Culturelle 15b) 1 each PO DAILY [facility] Stop: 08/30/17 08:59 Last Admin: 07/08/17 10:38 Dose: Not Given Mirtazapine (Remeron) 15 mg PO HS ED PRN Reason: Protocol Stop: 08/20/17 20:59 Last Admin: 07/07/17 21:20 Dose: 15 mg Miscellaneous (Probiotic Screen) 1 ea MC PRN PRN PRN Reason: PROTOCOL Stop: 08/29/17 11:59 Miscellaneous (Tpn Per Pharmacy) 1 ea MC PRN PRN PRN Reason: PROTOCOL Stop: 09/06/17 13:12 Morphine Sulfate (Morphine) 2 mg IVP Q4HR PRN PRN Reason: Pain (Moderate) Stop: 09/04/17 19:01 Last Admin: 07/08/17 01:16 Dose: 2 mg Morphine Sulfate (Morphine) 2 mg IVP Q4H PRN PRN Reason: Pain (Severe) Stop: 09/06/17 13:06 Nitroglycerin (Nitrostat) 0.4 mg SL Q5MIN PRN PRN Reason: Chest Pain Stop: 08/20/17 19:40 Ondansetron HCl (Zofran Odt) 4 mg PO Q6H PRN PRN Reason: Nausea / Vomiting Stop: 09/04/17 13:12 General: Other (ngt suction bloody) HEENT: Atraumatic Neck: Supple Cardiovascular: Regular rate Abdomen: Bowel sounds, Soft, Other (dressing in midline no bleeding) Extremities: Other (right arm picc) - Procedures Procedures: Procedures Procedure Code Date PARTIAL REMOVAL OF COLON 30061 06/21/17 RESECTION OF RIGHT LARGE INTESTINE, OPEN APPROACH [id number] 06/21/17 Assessment/Plan - Assessment Assessment: * DVT * ANEMIA * CKD * 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 No Xarelto was given confirmed with pharmacy. monitor cbc Continue ngt int suction Path. discussed with pathologist. no invasion. Nutritional Asmnt/Malnutr-PDOC - Dietary Evaluation Malnutrition Findings (Please click <Entered> for more info): Nutritional Asmnt/Malnutrition Start: 06/22/17 18: 04 Text: Status: Complete Freq: Document 06/22/17 18:04 LCJENYG (Rec: 06/22/17 18:15 LCHARSHAD [email or web address]) Nutritional Asmnt/Malnutrition Patient General Information Nutritional Screening High Risk Consult Diagnosis left lower extremity DVT, severe anemia, CHF, HTN Pertinent Medical Hx/Surgical Hx DM, anemia, renal stones, schizophrenia Subjective Information Pt seen lying in bed, confused at time of visit. Spoke with LULÚ Seay, RN reported pt ate well, consumed 60% of breakfast this morning. Per notes, pt has EGD and colonoscopy scheduled tommorrow. Current Diet Order/ Nutrition Support pureed Pertinent Medications D5-0.9ns, novolog, remeron, kcl Pertinent Labs 06/21 Na 137, K 3.5, Cl 100, BUN 24, Cr 1.3, Glucose 186, AST 10, ALT 6, Alb 2.6 06/22 POC 383 Nutritional Hx/Data Height 1.52 m Height (Calculated Centimeters) 152.4 Current Weight (lbs) 39.009 kg Weight (Calculated Kilograms) 39.0 Weight (Calculated Grams) 67087.9 [place] Body Weight 100 % [place] Body Weight 86 Body Mass Index (BMI) 16.7 Weight Status Underweight GI Symptoms GI Symptoms None Last BM none Difficult in: None Skin Integrity/Comment: intact Current %PO Fair (50-74%) Estimated Nutritional Goals Calories/Kcals/Kg 25-30 based on IBW 45kg Kcals Calculated 5050-7142 Protein g/k-1.2 Protein Calculated 45-54 Fluid: ml 1125-1350ml (1ml/kcal) Nutritional Problem 1. Problem Problem altered nutrition related lab values Etiology hx of DM Signs/Symptoms: Glucose 186, POC 383 Malnutrition Alert Protein-Calorie Malnutrition N/A Is there a minimum of two criteria No selected? Query Text:Check all the applicable criteria. A minimum of two criteria are recommended for diagnosis of either severe or non-severe malnutrition. Intervention/Recommendation Comments 1. Recommend CCHO, low sodium diet for optimal glycemic and BP control. RN notified. 2. Monitor PO intake, wt, labs and skin integrity 3. F/U as high risk in 2-3 days, 06/24-06/25 Expected Outcomes/Goals Expected Outcomes/Goals 1. PO intake to meet at least 75% of nutritional needs. 2. Wt stability, skin to remain intact, labs to improve
[2017-07-09] MEDS: D5-0.45NS 1,000 ML IV SCH ×2 (03:00→15:00)
[2017-07-09] MEDS: Albuterol/Ipratropium Neb 3 ML AERS HHN SCH ×4 (03:04→18:59)
[2017-07-09] MEDS: Pantoprazole 80 MG in Sodium Chloride 0.9% 100 ML IV SCH ×3 (03:45→23:08)
[2017-07-09 04:50] LABS: % BASOPHILS 0.4 % (0.0-2.0); % EOSINOPHILS 1.7 % (0.0-5.0); % LYMPHOCYTES 14.8 % (20.0-50.0); % MONOCYTES 6.5 % (2.0-10.0); % NEUTROPHILS 76.6 % (40.0-80.0); EOSINOPHILE ABSOLUTE 0.1 Th/cmm (0.1-0.4); LYMPHOCYTE ABSOLUTE 1.2 Th/cmm (1.5-3.0); MEAN CELL VOLUME 84.7 fl (81-100); MEAN CORPUSCULAR HEMOGLOBIN 28.1 pg (27.0-31.0); MEAN CORPUSCULAR HGB CONC 33.1 pg (28.0-36.0); MEAN PLATELET VOLUME 7.6 fl; MONOCYTE ABSOLUTE 0.5 Th/cmm (0.3-1.0); NEUTROPHILE ABSOLUTE 6.6 Th/cmm (1.8-8.0); PLATELET COUNT 289 Th/cmm (150-400); RED BLOOD COUNT 2.62 Mil/cmm (3.80-5.20); RED CELL DISTRIBUTION WIDTH 16.9 % (11.5-20.0); WHITE BLOOD COUNT 8.4 Th/cmm (4.8-10.8)
[2017-07-09 05:06] LABS: HEMOGLOBIN 7.4 gm/dL (12-16)
[2017-07-09 05:07] LABS: HEMATOCRIT 22.2 % (41.0-60)
[2017-07-09 05:53] LABS: ALB/GLOB RATIO 0.6 (1.0-1.8); ALBUMIN 1.9 gm/dL (3.7-5.3); ALKALINE PHOSPHATASE 211 U/L (34-104); ANION GAP 8.4 (7.0-16.0); BILIRUBIN,TOTAL 0.6 mg/dL (0.3-1.0); BUN - UREA NITROGEN 15 mg/dL (7-25); CALCIUM SERUM 8.4 mg/dL (8.6-10.3); CARBON DIOXIDE 26.2 mEq/L (21.0-31.0); CHLORIDE 111 mEq/L (98-107); CREATININE - SERUM 1.4 mg/dL (0.6-1.2); GLUCOSE 161 mg/dL (70-105); MAGNESIUM 1.4 mg/dL (1.9-2.7); PHOSPHOROUS 2.7 mg/dL (2.5-5.0); POTASSIUM SERUM 3.6 mEq/L (3.5-5.1); SGOT 31 U/L (13-39); SGPT/ALT 18 U/L (7-52); SODIUM SERUM 142 mEq/L (136-145); TRIGLYCERIDES 57 mg/dL (<150)
[2017-07-09] MEDS: INSULIN ASPART, RECOMBINANT 100 UNITS/ML SUBQ SCH ×3 (05:56→11:45)
[2017-07-09] MEDS: Lactobacillus Rhamnosus GG 15 Billion CFU CAP.SPRINK PO SCH (10:15)
--- NOTE | 2017-07-09 10:26 | General Progress Note ---
Subjective - Review of Systems Service Date: 07/09/17 Events since last encounter: for EGD today Hb 7.4 - 1 pack PRBC Objective - Results Result Diagrams: 07/09/17 04:30 07/09/17 04:30 Recent Labs: Laboratory Last Values WBC 8.4 Th/cmm (4.8-10.8) 07/09/17 04:30 RBC 2.62 Mil/cmm (3.80-5.20) L 07/09/17 04:30 Hgb 7.4 gm/dL (12-16) L* 07/09/17 04:30 Hct 22.2 % (41.0-60) L D 07/09/17 04:30 MCV 84.7 fl (81-100) 07/09/17 04:30 MCH 28.1 pg (27.0-31.0) 07/09/17 04:30 MCHC Differential 33.1 pg (28.0-36.0) 07/09/17 04:30 RDW 16.9 % (11.5-20.0) 07/09/17 04:30 Plt Count 289 Th/cmm (150-400) 07/09/17 04:30 MPV 7.6 fl 07/09/17 04:30 Neutrophils % 76.6 % (40.0-80.0) 07/09/17 04:30 Band Neutrophils % 2 % (0-10) 07/04/17 04:30 Lymphocytes % 14.8 % (20.0-50.0) L 07/09/17 04:30 Monocytes % 6.5 % (2.0-10.0) 07/09/17 04:30 Eosinophils % 1.7 % (0.0-5.0) 07/09/17 04:30 Basophils % 0.4 % (0.0-2.0) 07/09/17 04:30 Neutrophils (Manual) 80 % (40-80) 07/04/17 04:30 Lymphocytes 12 % (20-50) L 07/04/17 04:30 Monocytes 2 % (2-10) 07/04/17 04:30 Eosinophils 4 % (0-5) 07/04/17 04:30 Hypochromia 1+ 07/04/17 04:30 Platelet Estimate ADEQUATE (NORMAL) 07/04/17 04:30 Polychromasia 1+ 07/04/17 04:30 Schistocytes 1+ 07/04/17 04:30 PT 12.0 SECONDS (9.5-11.5) H 07/08/17 04:15 INR 1.14 (0.5-1.4) 07/08/17 04:15 PTT (Actin FS) 25.0 SECONDS (26.0-38.0) L 07/08/17 04:15 D-Dimer 3600 ng/mL (100-400) H 06/21/17 18:20 Specimen Source Arterial 06/28/17 10:55 Sample Site Right Radial 06/28/17 10:55 pH 7.44 (7.35-7.45) 06/28/17 10:55 pCO2 36.0 mmHg (35.0-45.0) 06/28/17 10:55 pO2 100.0 mmHg (80.0-100.0) 06/28/17 10:55 HCO3 25.4 mEq/L (20.0-26.0) 06/28/17 10:55 Base Excess 0.6 mEq/L (-3.0-3.0) 06/28/17 10:55 O2 Saturation 98.0 % (92.0-100.0) 06/28/17 10:55 Rashid Test Positive 06/28/17 10:55 Vent Rate N/A 06/28/17 10:55 Inspired O2 28 06/28/17 10:55 Tidal Volume N/A 06/28/17 10:55 PEEP N/A 06/28/17 10:55 Pressure (ins/psv/peep) N/A 06/28/17 10:55 Critical Value DM 06/28/17 10:55 Sodium 142 mEq/L (136-145) 07/09/17 04:30 Potassium 3.6 mEq/L (3.5-5.1) 07/09/17 04:30 Chloride 111 mEq/L (98-107) H 07/09/17 04:30 Carbon Dioxide 26.2 mEq/L (21.0-31.0) 07/09/17 04:30 Anion Gap 8.4 (7.0-16.0) 07/09/17 04:30 BUN 15 mg/dL (7-25) 07/09/17 04:30 Creatinine 1.4 mg/dL (0.6-1.2) H 07/09/17 04:30 Est GFR ( Amer) TNP 07/09/17 04:30 Est GFR (Non-Af Amer) TNP 07/09/17 04:30 BUN/Creatinine Ratio 10.7 07/09/17 04:30 Glucose 161 mg/dL (70-105) H 07/09/17 04:30 POC Glucose 152 MG/DL (70 - 105) H 07/09/17 05:27 Hemoglobin A1c % 11.7 % (4.0-6.0) H 06/21/17 18:20 Calcium 8.4 mg/dL (8.6-10.3) L 07/09/17 04:30 Phosphorus 2.7 mg/dL (2.5-5.0) 07/09/17 04:30 Magnesium 1.4 mg/dL (1.9-2.7) L 07/09/17 04:30 Iron 19 ug/dL (27-139) L 06/22/17 05:20 TIBC 176 ug/dL (250-450) L 06/22/17 05:20 Iron Saturation 11 % (15-55) L 06/22/17 05:20 Unsaturated IBC 157 ug/dL (118-369) 06/22/17 05:20 Ferritin 164 ng/mL (15-150) H 06/22/17 05:20 Total Bilirubin 0.6 mg/dL (0.3-1.0) 07/09/17 04:30 AST 31 U/L (13-39) 07/09/17 04:30 ALT 18 U/L (7-52) 07/09/17 04:30 Alkaline Phosphatase 211 U/L (34-104) H 07/09/17 04:30 Ammonia 38 umol/L (16-53) 07/08/17 04:15 Creatine Kinase 39 U/L (30-223) 06/21/17 18:20 Troponin I 0.01 ng/mL (0.01-0.05) 06/21/17 18:20 B-Natriuretic Peptide 108.0 pg/mL (5.0-100.0) H 07/09/17 04:30 Total Protein 5.0 gm/dL (6.0-8.3) L 07/09/17 04:30 Albumin 1.9 gm/dL (3.7-5.3) L 07/09/17 04:30 Globulin 3.1 gm/dL 07/09/17 04:30 Albumin/Globulin Ratio 0.6 (1.0-1.8) L 07/09/17 04:30 Triglycerides 57 mg/dL (<150) 07/09/17 04:30 Cholesterol 129 mg/dL (<200) 06/21/17 18:20 LDL Cholesterol Direct 65 mg/dL (75-193) L 06/21/17 18:20 HDL Cholesterol 43 mg/dL (23-92) 06/21/17 18:20 Vitamin B12 1797 pg/mL (232-1245) H 07/02/17 03:41 Folic Acid 10.3 ng/mL (>3.0) 07/02/17 03:41 Helicobacter pylori Ab POSITIVE (NEGATIVE) 06/23/17 10:50 Blood Type O POSITIVE 07/09/17 09:16 Antibody Screen NEGATIVE 07/09/17 09:16 Crossmatch See Detail 07/09/17 09:16 - Physical Exam Vitals and I&O: Vital Signs Temp 98.5 F 07/09/17 04:00 Pulse 98 07/09/17 07:01 Resp 20 07/09/17 07:01 BP 152/76 07/09/17 07:00 Pulse Ox 99 07/09/17 07:01 Intake & Output 07/08/17 07/09/17 07/09/17 18:59 06:59 18:59 Intake Total 250 1245 Output Total 820 1603 Balance -570 -358 Weight (lbs) 58.06 kg 59.421 kg Intake: Intake, IV Amount 150 1095 Cefepime 0.5 gm In 50 Dextrose 5% 50 ml @ 100 mls/hr IV Q24H ED Rx#: [id number] D5-0.45NS 1,000 ml @ 80 1000 mls/hr IV .[id number] ED Rx #:[id number] Pantoprazole 80 mg In 100 95 Sodium Chloride 0.9% 100 ml @ 10 mls/hr IV Q10H ED Rx#:[id number] Other 100 150 Output: Gastric Drainage 270 450 Urine 550 1150 Stool 3 Other: # Bowel Movements 1 1 Stool Characteristics Soft Black Bloody Active Medications: Current Medications Acetaminophen (Tylenol) 650 mg PO Q4H PRN PRN Reason: Pain Or Fever above 101 Stop: 08/20/17 19:40 Acetaminophen/Hydrocodone Bitart ([place] 5mg/325mg) 1 tab PO Q4H PRN PRN Reason: Pain (Severe) Stop: 09/04/17 13:12 Al Hydrox/Mg Hydrox/Simethicone (Maalox) 30 ml PO Q6H PRN PRN Reason: Dyspepsia Stop: 08/20/17 19:40 Albuterol Sulfate (Albuterol 2.5mg/3ml Neb Ud) 2.5 mg HHN Q2HRT PRN PRN Reason: Shortness of Breath or Wheeze Stop: 08/20/17 19:40 Albuterol/Ipratropium (Duoneb Neb) 3 ml HHN Q6HRT ED Stop: 08/30/17 18:59 Last Admin: 07/09/17 06:57 Dose: 3 ml Amlodipine Besylate (Norvasc) 10 mg PO DAILY [facility] Stop: 09/06/17 08:59 Last Admin: 07/09/17 10:15 Dose: Not Given Clonidine HCl (Kviybnbv-Fyk-5) 1 patch TD We [facility] Stop: 08/28/17 13:14 Last Admin: 07/06/17 12:44 Dose: 1 patch Diltiazem HCl (Cardizem) 20 mg IVP Q4H PRN PRN Reason: HR> 120 Stop: 09/04/17 17:55 Guaifenesin (Robitussin) 200 mg PO Q4HR PRN PRN Reason: Cough or Congestion Stop: 08/20/17 19:40 Haloperidol Decanoate (Haldol Dec) 25 mg IM QMONTH ED Stop: 08/23/17 09:59 Last Admin: 06/24/17 09:10 Dose: 25 mg Hydralazine HCl (Apresoline 20 Mg/Ml) 10 mg IV Q6HR PRN PRN Reason: SBP ABOVE 160 Stop: 08/25/17 12:20 Last Admin: 07/09/17 01:38 Dose: 10 mg Pantoprazole Sodium 80 mg/ (Sodium Chloride) 100 mls @ 10 mls/hr IV Q10H ED Stop: 09/04/17 19:14 Last Admin: 07/09/17 03:45 Dose: 10 mls/hr Cefepime HCl 0.5 gm/ Dextrose 50 mls @ 100 mls/hr IV Q24H [facility] Stop: 09/06/17 13:59 Last Infusion: 07/08/17 17:34 Dose: Infused Dextrose/Sodium Chloride (D5-0.45ns) 1,000 mls @ 80 mls/hr IV .[id number] [facility] Stop: 09/06/17 13:14 Last Admin: 07/09/17 03:00 Dose: 80 mls/hr Dextrose/ Amino Acids/ (Electrolytes) 1,000 mls @ 40 mls/hr IV .Q24H [facility] Stop: 08/07/17 15:59 Insulin Aspart (Novolog) 0 units SUBQ Q6HR ED PRN Reason: Protocol Stop: 09/03/17 00:00 Last Admin: 07/09/17 05:56 Dose: Not Given Ipratropium [place] (Atrovent Neb 0.5mg/2.5ml) 0.5 mg IH Q2HRT PRN PRN Reason: Shortness of Breath or Wheeze Stop: 08/20/17 19:40 Lactobacillus Rhamnosus (Culturelle 15b) 1 each PO DAILY [facility] Stop: 08/30/17 08:59 Last Admin: 07/09/17 10:15 Dose: Not Given Mirtazapine (Remeron) 15 mg PO HS ED PRN Reason: Protocol Stop: 08/20/17 20:59 Last Admin: 07/08/17 20:47 Dose: Not Given Miscellaneous (Probiotic Screen) 1 ea PRN PRN PRN Reason: PROTOCOL Stop: 08/29/17 11:59 Miscellaneous (Tpn Per Pharmacy) 1 ea PRN PRN PRN Reason: PROTOCOL Stop: 09/06/17 13:12 Morphine Sulfate (Morphine) 2 mg IVP Q4HR PRN PRN Reason: Pain (Moderate) Stop: 09/04/17 19:01 Last Admin: 07/08/17 01:16 Dose: 2 mg Morphine Sulfate (Morphine) 2 mg IVP Q4H PRN PRN Reason: Pain (Severe) Stop: 09/06/17 13:06 Last Admin: 07/08/17 16:48 Dose: 2 mg Nitroglycerin (Nitrostat) 0.4 mg SL Q5MIN PRN PRN Reason: Chest Pain Stop: 08/20/17 19:40 Ondansetron HCl (Zofran Odt) 4 mg PO Q6H PRN PRN Reason: Nausea / Vomiting Stop: 09/04/17 13:12 General: Other (ngt suction bloody) HEENT: Atraumatic Neck: Supple Cardiovascular: Regular rate Abdomen: Bowel sounds, Soft, Other (dressing in midline no bleeding) Extremities: Other (right arm picc) - Procedures Procedures: Procedures Procedure Code Date PARTIAL REMOVAL OF COLON 43374 06/21/17 RESECTION OF RIGHT LARGE INTESTINE, OPEN APPROACH [id number] 06/21/17 Nutritional Asmnt/Malnutr-PDOC - Dietary Evaluation Malnutrition Findings (Please click <Entered> for more info): Nutritional Asmnt/Malnutrition Start: 06/22/17 18: 04 Text: Status: Complete Freq: Document 06/22/17 18:04 JENY (Rec: 06/22/17 18:15 [email or web address] Nutritional Asmnt/Malnutrition Patient General Information Nutritional Screening High Risk Consult Diagnosis left lower extremity DVT, severe anemia, CHF, HTN Pertinent Medical Hx/Surgical Hx DM, anemia, renal stones, schizophrenia Subjective Information Pt seen lying in bed, confused at time of visit. Spoke with LULÚ Seay, RN reported pt ate well, consumed 60% of breakfast this morning. Per notes, pt has EGD and colonoscopy scheduled tommorrow. Current Diet Order/ Nutrition Support pureed Pertinent Medications D5-0.9ns, novolog, remeron, kcl Pertinent Labs 06/21 Na 137, K 3.5, Cl 100, BUN 24, Cr 1.3, Glucose 186, AST 10, ALT 6, Alb 2.6 06/22 POC 383 Nutritional Hx/Data Height 1.52 m Height (Calculated Centimeters) 152.4 Current Weight (lbs) 39.009 kg Weight (Calculated Kilograms) 39.0 Weight (Calculated Grams) 55036.9 [place] Body Weight 100 % [place] Body Weight 86 Body Mass Index (BMI) 16.7 Weight Status Underweight GI Symptoms GI Symptoms None Last BM none Difficult in: None Skin Integrity/Comment: intact Current %PO Fair (50-74%) Estimated Nutritional Goals Calories/Kcals/Kg 25-30 based on IBW 45kg Kcals Calculated 6321-7795 Protein g/k-1.2 Protein Calculated 45-54 Fluid: ml 1125-1350ml (1ml/kcal) Nutritional Problem 1. Problem Problem altered nutrition related lab values Etiology hx of DM Signs/Symptoms: Glucose 186, POC 383 Malnutrition Alert Protein-Calorie Malnutrition N/A Is there a minimum of two criteria No selected? Query Text:Check all the applicable criteria. A minimum of two criteria are recommended for diagnosis of either severe or non-severe malnutrition. Intervention/Recommendation Comments 1. Recommend CCHO, low sodium diet for optimal glycemic and BP control. RN notified. 2. Monitor PO intake, wt, labs and skin integrity 3. F/U as high risk in 2-3 days, 06/24-06/25 Expected Outcomes/Goals Expected Outcomes/Goals 1. PO intake to meet at least 75% of nutritional needs. 2. Wt stability, skin to remain intact, labs to improve
--- NOTE | 2017-07-09 12:08 | Internal Medicine Prog Note ---
Internal Medicine Subjective - Subjective Patient seen and examined:: with staff, chart reviewed Patient is:: asleep, non-verbal (ngt), non-interactive Patient Complaints of:: congestion Per staff patient has:: no adverse event, no episodes of fall, tolerating meds Internal Medicine Objective - Results Result Diagrams: 07/09/17 04:30 07/09/17 04:30 Recent Labs: Laboratory Last Values WBC 8.4 Th/cmm (4.8-10.8) 07/09/17 04:30 RBC 2.62 Mil/cmm (3.80-5.20) L 07/09/17 04:30 Hgb 7.4 gm/dL (12-16) L* 07/09/17 04:30 Hct 22.2 % (41.0-60) L D 07/09/17 04:30 MCV 84.7 fl (81-100) 07/09/17 04:30 MCH 28.1 pg (27.0-31.0) 07/09/17 04:30 MCHC Differential 33.1 pg (28.0-36.0) 07/09/17 04:30 RDW 16.9 % (11.5-20.0) 07/09/17 04:30 Plt Count 289 Th/cmm (150-400) 07/09/17 04:30 MPV 7.6 fl 07/09/17 04:30 Neutrophils % 76.6 % (40.0-80.0) 07/09/17 04:30 Band Neutrophils % 2 % (0-10) 07/04/17 04:30 Lymphocytes % 14.8 % (20.0-50.0) L 07/09/17 04:30 Monocytes % 6.5 % (2.0-10.0) 07/09/17 04:30 Eosinophils % 1.7 % (0.0-5.0) 07/09/17 04:30 Basophils % 0.4 % (0.0-2.0) 07/09/17 04:30 Neutrophils (Manual) 80 % (40-80) 07/04/17 04:30 Lymphocytes 12 % (20-50) L 07/04/17 04:30 Monocytes 2 % (2-10) 07/04/17 04:30 Eosinophils 4 % (0-5) 07/04/17 04:30 Hypochromia 1+ 07/04/17 04:30 Platelet Estimate ADEQUATE (NORMAL) 07/04/17 04:30 Polychromasia 1+ 07/04/17 04:30 Schistocytes 1+ 07/04/17 04:30 PT 12.0 SECONDS (9.5-11.5) H 07/08/17 04:15 INR 1.14 (0.5-1.4) 07/08/17 04:15 PTT (Actin FS) 25.0 SECONDS (26.0-38.0) L 07/08/17 04:15 D-Dimer 3600 ng/mL (100-400) H 06/21/17 18:20 Specimen Source Arterial 06/28/17 10:55 Sample Site Right Radial 06/28/17 10:55 pH 7.44 (7.35-7.45) 06/28/17 10:55 pCO2 36.0 mmHg (35.0-45.0) 06/28/17 10:55 pO2 100.0 mmHg (80.0-100.0) 06/28/17 10:55 HCO3 25.4 mEq/L (20.0-26.0) 06/28/17 10:55 Base Excess 0.6 mEq/L (-3.0-3.0) 06/28/17 10:55 O2 Saturation 98.0 % (92.0-100.0) 06/28/17 10:55 Rashid Test Positive 06/28/17 10:55 Vent Rate N/A 06/28/17 10:55 Inspired O2 28 06/28/17 10:55 Tidal Volume N/A 06/28/17 10:55 PEEP N/A 06/28/17 10:55 Pressure (ins/psv/peep) N/A 06/28/17 10:55 Critical Value DM 06/28/17 10:55 Sodium 142 mEq/L (136-145) 07/09/17 04:30 Potassium 3.6 mEq/L (3.5-5.1) 07/09/17 04:30 Chloride 111 mEq/L (98-107) H 07/09/17 04:30 Carbon Dioxide 26.2 mEq/L (21.0-31.0) 07/09/17 04:30 Anion Gap 8.4 (7.0-16.0) 07/09/17 04:30 BUN 15 mg/dL (7-25) 07/09/17 04:30 Creatinine 1.4 mg/dL (0.6-1.2) H 07/09/17 04:30 Est GFR ( Amer) TNP 07/09/17 04:30 Est GFR (Non-Af Amer) TNP 07/09/17 04:30 BUN/Creatinine Ratio 10.7 07/09/17 04:30 Glucose 161 mg/dL (70-105) H 07/09/17 04:30 POC Glucose 156 MG/DL (70 - 105) H 07/09/17 11:37 Hemoglobin A1c % 11.7 % (4.0-6.0) H 06/21/17 18:20 Calcium 8.4 mg/dL (8.6-10.3) L 07/09/17 04:30 Phosphorus 2.7 mg/dL (2.5-5.0) 07/09/17 04:30 Magnesium 1.4 mg/dL (1.9-2.7) L 07/09/17 04:30 Iron 19 ug/dL (27-139) L 06/22/17 05:20 TIBC 176 ug/dL (250-450) L 06/22/17 05:20 Iron Saturation 11 % (15-55) L 06/22/17 05:20 Unsaturated IBC 157 ug/dL (118-369) 06/22/17 05:20 Ferritin 164 ng/mL (15-150) H 06/22/17 05:20 Total Bilirubin 0.6 mg/dL (0.3-1.0) 07/09/17 04:30 AST 31 U/L (13-39) 07/09/17 04:30 ALT 18 U/L (7-52) 07/09/17 04:30 Alkaline Phosphatase 211 U/L (34-104) H 07/09/17 04:30 Ammonia 38 umol/L (16-53) 07/08/17 04:15 Creatine Kinase 39 U/L (30-223) 06/21/17 18:20 Troponin I 0.01 ng/mL (0.01-0.05) 06/21/17 18:20 B-Natriuretic Peptide 108.0 pg/mL (5.0-100.0) H 07/09/17 04:30 Total Protein 5.0 gm/dL (6.0-8.3) L 07/09/17 04:30 Albumin 1.9 gm/dL (3.7-5.3) L 07/09/17 04:30 Globulin 3.1 gm/dL 07/09/17 04:30 Albumin/Globulin Ratio 0.6 (1.0-1.8) L 07/09/17 04:30 Triglycerides 57 mg/dL (<150) 07/09/17 04:30 Cholesterol 129 mg/dL (<200) 06/21/17 18:20 LDL Cholesterol Direct 65 mg/dL (75-193) L 06/21/17 18:20 HDL Cholesterol 43 mg/dL (23-92) 06/21/17 18:20 Vitamin B12 1797 pg/mL (232-1245) H 07/02/17 03:41 Folic Acid 10.3 ng/mL (>3.0) 07/02/17 03:41 Helicobacter pylori Ab POSITIVE (NEGATIVE) 06/23/17 10:50 Blood Type O POSITIVE 07/09/17 09:16 Antibody Screen NEGATIVE 07/09/17 09:16 Crossmatch See Detail 07/09/17 09:16 - Physical Exam Vitals and I&O: Vital Signs Temp 98.6 F 07/09/17 08:00 Pulse 92 07/09/17 11:00 Resp 12 07/09/17 11:00 BP 163/77 07/09/17 11:00 Pulse Ox 100 07/09/17 11:00 Intake & Output 07/08/17 07/09/17 07/09/17 18:59 06:59 18:59 Intake Total 250 1245 Output Total 820 1603 Balance -570 -358 Weight (lbs) 58.06 kg 59.421 kg Intake: Intake, IV Amount 150 1095 Cefepime 0.5 gm In 50 Dextrose 5% 50 ml @ 100 mls/hr IV Q24H ED Rx#: [id number] D5-0.45NS 1,000 ml @ 80 1000 mls/hr IV .[id number] ED Rx #:[id number] Pantoprazole 80 mg In 100 95 Sodium Chloride 0.9% 100 ml @ 10 mls/hr IV Q10H ED Rx#:[id number] Other 100 150 Output: Gastric Drainage 270 450 Urine 550 1150 Stool 3 Other: # Bowel Movements 1 1 Stool Characteristics Soft Black Bloody Active Medications: Current Medications Acetaminophen (Tylenol) 650 mg PO Q4H PRN PRN Reason: Pain Or Fever above 101 Stop: 08/20/17 19:40 Acetaminophen/Hydrocodone Bitart ([place] 5mg/325mg) 1 tab PO Q4H PRN PRN Reason: Pain (Severe) Stop: 09/04/17 13:12 Al Hydrox/Mg Hydrox/Simethicone (Maalox) 30 ml PO Q6H PRN PRN Reason: Dyspepsia Stop: 08/20/17 19:40 Albuterol Sulfate (Albuterol 2.5mg/3ml Neb Ud) 2.5 mg HHN Q2HRT PRN PRN Reason: Shortness of Breath or Wheeze Stop: 08/20/17 19:40 Albuterol/Ipratropium (Duoneb Neb) 3 ml HHN Q6HRT [facility] Stop: 08/30/17 18:59 Last Admin: 07/09/17 06:57 Dose: 3 ml Amlodipine Besylate (Norvasc) 10 mg PO DAILY [facility] Stop: 09/06/17 08:59 Last Admin: 07/09/17 10:15 Dose: Not Given Diltiazem HCl (Cardizem) 20 mg IVP Q4H PRN PRN Reason: HR> 120 Stop: 09/04/17 17:55 Guaifenesin (Robitussin) 200 mg PO Q4HR PRN PRN Reason: Cough or Congestion Stop: 08/20/17 19:40 Haloperidol Decanoate (Haldol Dec) 25 mg IM QMONTH [facility] Stop: 08/23/17 09:59 Last Admin: 06/24/17 09:10 Dose: 25 mg Hydralazine HCl (Apresoline 20 Mg/Ml) 10 mg IV Q6HR PRN PRN Reason: SBP ABOVE 160 Stop: 08/25/17 12:20 Last Admin: 07/09/17 01:38 Dose: 10 mg Pantoprazole Sodium 80 mg/ (Sodium Chloride) 100 mls @ 10 mls/hr IV Q10H [facility] Stop: 09/04/17 19:14 Last Admin: 07/09/17 03:45 Dose: 10 mls/hr Cefepime HCl 0.5 gm/ Dextrose 50 mls @ 100 mls/hr IV Q24H [facility] Stop: 09/06/17 13:59 Last Infusion: 07/08/17 17:34 Dose: Infused Dextrose/Sodium Chloride (D5-0.45ns) 1,000 mls @ 80 mls/hr IV .[id number] [facility] Stop: 09/06/17 13:14 Last Admin: 07/09/17 03:00 Dose: 80 mls/hr Dextrose/ Amino Acids/ (Electrolytes) 1,000 mls @ 40 mls/hr IV .Q24H [facility] Stop: 08/07/17 15:59 Insulin Aspart (Novolog) 0 units SUBQ Q6HR ED PRN Reason: Protocol Stop: 09/03/17 00:00 Last Admin: 07/09/17 11:45 Dose: Not Given Ipratropium [place] (Atrovent Neb 0.5mg/2.5ml) 0.5 mg IH Q2HRT PRN PRN Reason: Shortness of Breath or Wheeze Stop: 08/20/17 19:40 Lactobacillus Rhamnosus (Culturelle 15b) 1 each PO DAILY [facility] Stop: 08/30/17 08:59 Last Admin: 07/09/17 10:15 Dose: Not Given Mirtazapine (Remeron) 15 mg PO HS ED PRN Reason: Protocol Stop: 08/20/17 20:59 Last Admin: 07/08/17 20:47 Dose: Not Given Miscellaneous (Probiotic Screen) 1 ea PRN PRN PRN Reason: PROTOCOL Stop: 08/29/17 11:59 Miscellaneous (Tpn Per Pharmacy) 1 ea PRN PRN PRN Reason: PROTOCOL Stop: 09/06/17 13:12 Morphine Sulfate (Morphine) 2 mg IVP Q4HR PRN PRN Reason: Pain (Moderate) Stop: 09/04/17 19:01 Last Admin: 07/08/17 01:16 Dose: 2 mg Morphine Sulfate (Morphine) 2 mg IVP Q4H PRN PRN Reason: Pain (Severe) Stop: 09/06/17 13:06 Last Admin: 07/08/17 16:48 Dose: 2 mg Nitroglycerin (Nitrostat) 0.4 mg SL Q5MIN PRN PRN Reason: Chest Pain Stop: 08/20/17 19:40 Ondansetron HCl (Zofran Odt) 4 mg PO Q6H PRN PRN Reason: Nausea / Vomiting Stop: 09/04/17 13:12 General: weak, demented, thin, bilateral temporal wasting HEENT: NC/AT, PERRLA, thinning hair, other (ngt) Neck: Supple Lungs: rales, ronchi Cardiovascular: RRR, Normal S1, Normal S2, without murmur Abdomen: soft, non-tender, non-distended, positive bowel sound Extremities: excoriation, contracture, deformity Neurological: lethargic, unsteady, bedbound - Procedures Procedures: Procedures Procedure Code Date PARTIAL REMOVAL OF COLON 26921 06/21/17 RESECTION OF RIGHT LARGE INTESTINE, OPEN APPROACH [id number] 06/21/17 Internal Medicine Assmt/Plan - Assessment Assessment: - Assessment Assessment: gi bleeding cecal mass sp resection acute dvt severe anemia dm2 schizophrenia htn psychosis hypokalemia - Plan Plan: monitor electrolytes continue lovenox--off follow up labs in am will follow energy consultant reccomendations - Plan Plan: dr chin for surgical plans dc cancelled [address] dawn for tx and endoscopy Nutritional Asmnt/Malnutr-PDOC - Dietary Evaluation Malnutrition Findings (Please click <Entered> for more info): Nutritional Asmnt/Malnutrition Start: 06/22/17 18: 04 Text: Status: Complete Freq: Document 06/22/17 18:04 LCHENG (Rec: 06/22/17 18:15 LCHENG [email or web address]) Nutritional Asmnt/Malnutrition Patient General Information Nutritional Screening High Risk Consult Diagnosis left lower extremity DVT, severe anemia, CHF, HTN Pertinent Medical Hx/Surgical Hx DM, anemia, renal stones, schizophrenia Subjective Information Pt seen lying in bed, confused at time of visit. Spoke with LULÚ Seay RN reported pt ate well, consumed 60% of breakfast this morning. Per notes, pt has EGD and colonoscopy scheduled tommorrow. Current Diet Order/ Nutrition Support pureed Pertinent Medications D5-0.9ns, novolog, remeron, kcl Pertinent Labs 06/21 Na 137, K 3.5, Cl 100, BUN 24, Cr 1.3, Glucose 186, AST 10, ALT 6, Alb 2.6 06/22 POC 383 Nutritional Hx/Data Height 1.52 m Height (Calculated Centimeters) 152.4 Current Weight (lbs) 39.009 kg Weight (Calculated Kilograms) 39.0 Weight (Calculated Grams) 56882.9 [place] Body Weight 100 % [place] Body Weight 86 Body Mass Index (BMI) 16.7 Weight Status Underweight GI Symptoms GI Symptoms None Last BM none Difficult in: None Skin Integrity/Comment: intact Current %PO Fair (50-74%) Estimated Nutritional Goals Calories/Kcals/Kg 25-30 based on IBW 45kg Kcals Calculated 0963-4435 Protein g/k-1.2 Protein Calculated 45-54 Fluid: ml 1125-1350ml (1ml/kcal) Nutritional Problem 1. Problem Problem altered nutrition related lab values Etiology hx of DM Signs/Symptoms: Glucose 186, POC 383 Malnutrition Alert Protein-Calorie Malnutrition N/A Is there a minimum of two criteria No selected? Query Text:Check all the applicable criteria. A minimum of two criteria are recommended for diagnosis of either severe or non-severe malnutrition. Intervention/Recommendation Comments 1. Recommend CCHO, low sodium diet for optimal glycemic and BP control. RN notified. 2. Monitor PO intake, wt, labs and skin integrity 3. F/U as high risk in 2-3 days, 06/24-06/25 Expected Outcomes/Goals Expected Outcomes/Goals 1. PO intake to meet at least 75% of nutritional needs. 2. Wt stability, skin to remain intact, labs to improve
[2017-07-09] MEDS ORDERED: cloNIDine 0.2 mg/24 hr Tdm TD SCH (12:15)
[2017-07-09] MEDS: AMINO ACIDS 8.5% IV SCH (15:23)
[2017-07-09] MEDS: DEXTROSE 70% IV SCH (15:23)
--- NOTE | 2017-07-09 16:21 | Operative Report ---
DATE OF SURGERY: 07/09/2017 PROCEDURE: Esophagogastroduodenoscopy with biopsy. INDICATION FOR PROCEDURE: Upper GI bleed. CONSENT: Informed consent could not be obtained. The patient cannot consent and there is no family, it was the consensus among the treating physician that the patient will need the procedure. ANESTHESIA USED: Propofol 80 mg and lidocaine. PREOPERATIVE DIAGNOSIS: Upper gastrointestinal bleed. POSTOPERATIVE DIAGNOSES: 1. Large Mary-Valladares tear. 2. Multiple gastric and superficial ulcers, some of them was evidence of recent bleeding. Some of them are related to NG trauma, some are not. DESCRIPTION OF PROCEDURE: The patient was placed in left lateral position. Upper Olympus endoscope was introduced into the mouth and advanced to the esophagus, which was intubated under direct visualization. Esophageal mucosa was examined on the way down, it showed some ulcers, some of them could be related to NG trauma. Scope was then advanced further down to the stomach. Gastric mucosa examined. There was a large Mary-Valladares tear, spanning a hiatal hernia and going to the stomach and there were multiple ulcers seen. Some of them were also related to NG tube. Scope was advanced through the pylorus to the duodenum where the bulb and second part were examined and they were both normal. Scope was withdrawn to the stomach and retroflexed to examine the cardia and fundus showed a hiatal hernia and it showed the Mary-Valladares tear. Scope was then straightened. Same examination was repeated again without new findings. So, biopsies were taken from the antrum for CARMEN test. Scope was then withdrawn while examining the gastric and esophageal mucosa second time. The patient tolerated the procedure well. There were no immediate postoperative complications. RECOMMENDATIONS: 1. Monitor H and H. 2. Transfuse as needed. 3. Continuous PPI. 4. Stop NG suction. Thank you, Dr. Tobias for allowing me to participate in the care of the patient. If you have any further questions, please let me know. JOB# [id number]
--- NOTE | 2017-07-09 18:02 | General Progress Note ---
Subjective - Review of Systems Service Date: 07/09/17 Objective - Results Result Diagrams: 07/09/17 04:30 07/09/17 04:30 Recent Labs: Laboratory Last Values WBC 8.4 Th/cmm (4.8-10.8) 07/09/17 04:30 RBC 2.62 Mil/cmm (3.80-5.20) L 07/09/17 04:30 Hgb 7.4 gm/dL (12-16) L* 07/09/17 04:30 Hct 22.2 % (41.0-60) L D 07/09/17 04:30 MCV 84.7 fl (81-100) 07/09/17 04:30 MCH 28.1 pg (27.0-31.0) 07/09/17 04:30 MCHC Differential 33.1 pg (28.0-36.0) 07/09/17 04:30 RDW 16.9 % (11.5-20.0) 07/09/17 04:30 Plt Count 289 Th/cmm (150-400) 07/09/17 04:30 MPV 7.6 fl 07/09/17 04:30 Neutrophils % 76.6 % (40.0-80.0) 07/09/17 04:30 Band Neutrophils % 2 % (0-10) 07/04/17 04:30 Lymphocytes % 14.8 % (20.0-50.0) L 07/09/17 04:30 Monocytes % 6.5 % (2.0-10.0) 07/09/17 04:30 Eosinophils % 1.7 % (0.0-5.0) 07/09/17 04:30 Basophils % 0.4 % (0.0-2.0) 07/09/17 04:30 Neutrophils (Manual) 80 % (40-80) 07/04/17 04:30 Lymphocytes 12 % (20-50) L 07/04/17 04:30 Monocytes 2 % (2-10) 07/04/17 04:30 Eosinophils 4 % (0-5) 07/04/17 04:30 Hypochromia 1+ 07/04/17 04:30 Platelet Estimate ADEQUATE (NORMAL) 07/04/17 04:30 Polychromasia 1+ 07/04/17 04:30 Schistocytes 1+ 07/04/17 04:30 PT 12.0 SECONDS (9.5-11.5) H 07/08/17 04:15 INR 1.14 (0.5-1.4) 07/08/17 04:15 PTT (Actin FS) 25.0 SECONDS (26.0-38.0) L 07/08/17 04:15 D-Dimer 3600 ng/mL (100-400) H 06/21/17 18:20 Specimen Source Arterial 06/28/17 10:55 Sample Site Right Radial 06/28/17 10:55 pH 7.44 (7.35-7.45) 06/28/17 10:55 pCO2 36.0 mmHg (35.0-45.0) 06/28/17 10:55 pO2 100.0 mmHg (80.0-100.0) 06/28/17 10:55 HCO3 25.4 mEq/L (20.0-26.0) 06/28/17 10:55 Base Excess 0.6 mEq/L (-3.0-3.0) 06/28/17 10:55 O2 Saturation 98.0 % (92.0-100.0) 06/28/17 10:55 Rashid Test Positive 06/28/17 10:55 Vent Rate N/A 06/28/17 10:55 Inspired O2 28 06/28/17 10:55 Tidal Volume N/A 06/28/17 10:55 PEEP N/A 06/28/17 10:55 Pressure (ins/psv/peep) N/A 06/28/17 10:55 Critical Value DM 06/28/17 10:55 Sodium 142 mEq/L (136-145) 07/09/17 04:30 Potassium 3.6 mEq/L (3.5-5.1) 07/09/17 04:30 Chloride 111 mEq/L (98-107) H 07/09/17 04:30 Carbon Dioxide 26.2 mEq/L (21.0-31.0) 07/09/17 04:30 Anion Gap 8.4 (7.0-16.0) 07/09/17 04:30 BUN 15 mg/dL (7-25) 07/09/17 04:30 Creatinine 1.4 mg/dL (0.6-1.2) H 07/09/17 04:30 Est GFR ( Amer) TNP 07/09/17 04:30 Est GFR (Non-Af Amer) TNP 07/09/17 04:30 BUN/Creatinine Ratio 10.7 07/09/17 04:30 Glucose 161 mg/dL (70-105) H 07/09/17 04:30 POC Glucose 156 MG/DL (70 - 105) H 07/09/17 11:37 Hemoglobin A1c % 11.7 % (4.0-6.0) H 06/21/17 18:20 Calcium 8.4 mg/dL (8.6-10.3) L 07/09/17 04:30 Phosphorus 2.7 mg/dL (2.5-5.0) 07/09/17 04:30 Magnesium 1.4 mg/dL (1.9-2.7) L 07/09/17 04:30 Iron 19 ug/dL (27-139) L 06/22/17 05:20 TIBC 176 ug/dL (250-450) L 06/22/17 05:20 Iron Saturation 11 % (15-55) L 06/22/17 05:20 Unsaturated IBC 157 ug/dL (118-369) 06/22/17 05:20 Ferritin 164 ng/mL (15-150) H 06/22/17 05:20 Total Bilirubin 0.6 mg/dL (0.3-1.0) 07/09/17 04:30 AST 31 U/L (13-39) 07/09/17 04:30 ALT 18 U/L (7-52) 07/09/17 04:30 Alkaline Phosphatase 211 U/L (34-104) H 07/09/17 04:30 Ammonia 38 umol/L (16-53) 07/08/17 04:15 Creatine Kinase 39 U/L (30-223) 06/21/17 18:20 Troponin I 0.01 ng/mL (0.01-0.05) 06/21/17 18:20 B-Natriuretic Peptide 108.0 pg/mL (5.0-100.0) H 07/09/17 04:30 Total Protein 5.0 gm/dL (6.0-8.3) L 07/09/17 04:30 Albumin 1.9 gm/dL (3.7-5.3) L 07/09/17 04:30 Globulin 3.1 gm/dL 07/09/17 04:30 Albumin/Globulin Ratio 0.6 (1.0-1.8) L 07/09/17 04:30 Triglycerides 57 mg/dL (<150) 07/09/17 04:30 Cholesterol 129 mg/dL (<200) 06/21/17 18:20 LDL Cholesterol Direct 65 mg/dL (75-193) L 06/21/17 18:20 HDL Cholesterol 43 mg/dL (23-92) 06/21/17 18:20 Vitamin B12 1797 pg/mL (232-1245) H 07/02/17 03:41 Folic Acid 10.3 ng/mL (>3.0) 07/02/17 03:41 Helicobacter pylori Ab POSITIVE (NEGATIVE) 06/23/17 10:50 Blood Type O POSITIVE 07/09/17 09:16 Antibody Screen NEGATIVE 07/09/17 09:16 Crossmatch See Detail 07/09/17 09:16 - Physical Exam Vitals and I&O: Vital Signs Temp 97.5 F 07/09/17 16:00 Pulse 82 07/09/17 17:00 Resp 12 07/09/17 17:00 BP 155/69 07/09/17 17:00 Pulse Ox 100 07/09/17 17:00 Intake & Output 07/08/17 07/09/17 07/09/17 18:59 06:59 18:59 Intake Total 250 1245 1150 Output Total 820 1603 Balance -570 -358 1150 Weight (lbs) 58.06 kg 59.421 kg Intake: Intake, IV Amount 150 1095 1150 Cefepime 0.5 gm In 50 50 Dextrose 5% 50 ml @ 100 mls/hr IV Q24H ED Rx#: [id number] D5-0.45NS 1,000 ml @ 80 1000 1000 mls/hr IV .[id number] ED Rx #:[id number] Pantoprazole 80 mg In 100 95 100 Sodium Chloride 0.9% 100 ml @ 10 mls/hr IV Q10H ED Rx#:[id number] Other 100 150 Output: Gastric Drainage 270 450 Urine 550 1150 Stool 3 Other: # Bowel Movements 1 1 Stool Characteristics Soft Black Bloody Active Medications: Current Medications Acetaminophen (Tylenol) 650 mg PO Q4H PRN PRN Reason: Pain Or Fever above 101 Stop: 08/20/17 19:40 Acetaminophen/Hydrocodone Bitart ([place] 5mg/325mg) 1 tab PO Q4H PRN PRN Reason: Pain (Severe) Stop: 09/04/17 13:12 Al Hydrox/Mg Hydrox/Simethicone (Maalox) 30 ml PO Q6H PRN PRN Reason: Dyspepsia Stop: 08/20/17 19:40 Albuterol Sulfate (Albuterol 2.5mg/3ml Neb Ud) 2.5 mg HHN Q2HRT PRN PRN Reason: Shortness of Breath or Wheeze Stop: 08/20/17 19:40 Albuterol/Ipratropium (Duoneb Neb) 3 ml HHN Q6HRT [facility] Stop: 08/30/17 18:59 Last Admin: 07/09/17 13:04 Dose: 3 ml Amlodipine Besylate (Norvasc) 10 mg PO DAILY [facility] Stop: 09/06/17 08:59 Last Admin: 07/09/17 10:15 Dose: Not Given Clonidine HCl (Cunodzqh-Wwf-0) 1 patch TD Sa [facility] Stop: 09/07/17 12:14 Last Admin: 07/09/17 12:52 Dose: 1 patch Diltiazem HCl (Cardizem) 20 mg IVP Q4H PRN PRN Reason: HR> 120 Stop: 09/04/17 17:55 Guaifenesin (Robitussin) 200 mg PO Q4HR PRN PRN Reason: Cough or Congestion Stop: 08/20/17 19:40 Haloperidol Decanoate (Haldol Dec) 25 mg IM QMONTH [facility] Stop: 08/23/17 09:59 Last Admin: 06/24/17 09:10 Dose: 25 mg Hydralazine HCl (Apresoline 20 Mg/Ml) 10 mg IV Q6HR PRN PRN Reason: SBP ABOVE 160 Stop: 08/25/17 12:20 Last Admin: 07/09/17 01:38 Dose: 10 mg Pantoprazole Sodium 80 mg/ (Sodium Chloride) 100 mls @ 10 mls/hr IV Q10H [facility] Stop: 09/04/17 19:14 Last Admin: 07/09/17 15:17 Dose: 10 mls/hr Cefepime HCl 0.5 gm/ Dextrose 50 mls @ 100 mls/hr IV Q24H [facility] Stop: 09/06/17 13:59 Last Infusion: 07/09/17 15:22 Dose: Infused Dextrose/Sodium Chloride (D5-0.45ns) 1,000 mls @ 80 mls/hr IV .[id number] [facility] Stop: 09/06/17 13:14 Last Admin: 07/09/17 15:00 Dose: 80 mls/hr Dextrose/ Amino Acids/ (Electrolytes) 1,000 mls @ 40 mls/hr IV .Q24H [facility] Stop: 08/07/17 15:59 Last Admin: 07/09/17 15:23 Dose: 40 mls/hr Insulin Aspart (Novolog) 0 units SUBQ Q6HR ED PRN Reason: Protocol Stop: 09/03/17 00:00 Last Admin: 07/09/17 11:45 Dose: Not Given Ipratropium [place] (Atrovent Neb 0.5mg/2.5ml) 0.5 mg IH Q2HRT PRN PRN Reason: Shortness of Breath or Wheeze Stop: 08/20/17 19:40 Lactobacillus Rhamnosus (Culturelle 15b) 1 each PO DAILY [facility] Stop: 08/30/17 08:59 Last Admin: 07/09/17 10:15 Dose: Not Given Mirtazapine (Remeron) 15 mg PO HS ED PRN Reason: Protocol Stop: 08/20/17 20:59 Last Admin: 07/08/17 20:47 Dose: Not Given Miscellaneous (Probiotic Screen) 1 ea MC PRN PRN PRN Reason: PROTOCOL Stop: 08/29/17 11:59 Miscellaneous (Tpn Per Pharmacy) 1 ea MC PRN PRN PRN Reason: PROTOCOL Stop: 09/06/17 13:12 Morphine Sulfate (Morphine) 2 mg IVP Q4HR PRN PRN Reason: Pain (Moderate) Stop: 09/04/17 19:01 Last Admin: 07/08/17 01:16 Dose: 2 mg Morphine Sulfate (Morphine) 2 mg IVP Q4H PRN PRN Reason: Pain (Severe) Stop: 09/06/17 13:06 Last Admin: 07/08/17 16:48 Dose: 2 mg Nitroglycerin (Nitrostat) 0.4 mg SL Q5MIN PRN PRN Reason: Chest Pain Stop: 08/20/17 19:40 Ondansetron HCl (Zofran Odt) 4 mg PO Q6H PRN PRN Reason: Nausea / Vomiting Stop: 09/04/17 13:12 General: Other (ngt suction bloody) HEENT: Atraumatic Neck: Supple Cardiovascular: Regular rate Abdomen: Bowel sounds, Soft, Other (dressing in midline no bleeding) Extremities: Other (right arm picc) - Procedures Procedures: Procedures Procedure Code Date PARTIAL REMOVAL OF COLON 30654 06/21/17 RESECTION OF RIGHT LARGE INTESTINE, OPEN APPROACH [id number] 06/21/17 Assessment/Plan - Assessment Assessment: * DVT * ANEMIA secondary to GI bleeding * CKD * 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 No Xarelto was given confirmed with pharmacy. monitor cbc Continue ngt int suction Path. discussed with pathologist. no invasion. transfuse PRBCs today Nutritional Asmnt/Malnutr-PDOC - Dietary Evaluation Malnutrition Findings (Please click <Entered> for more info): Nutritional Asmnt/Malnutrition Start: 06/22/17 18: 04 Text: Status: Complete Freq: Document 06/22/17 18:04 [facility] (Rec: 06/22/17 18:15 [facility]-[email or web address]) Nutritional Asmnt/Malnutrition Patient General Information Nutritional Screening High Risk Consult Diagnosis left lower extremity DVT, severe anemia, CHF, HTN Pertinent Medical Hx/Surgical Hx DM, anemia, renal stones, schizophrenia Subjective Information Pt seen lying in bed, confused at time of visit. Spoke with LULÚ Seay RN reported pt ate well, consumed 60% of breakfast this morning. Per notes, pt has EGD and colonoscopy scheduled tommorrow. Current Diet Order/ Nutrition Support pureed Pertinent Medications D5-0.9ns, novolog, remeron, kcl Pertinent Labs 06/21 Na 137, K 3.5, Cl 100, BUN 24, Cr 1.3, Glucose 186, AST 10, ALT 6, Alb 2.6 06/22 POC 383 Nutritional Hx/Data Height 1.52 m Height (Calculated Centimeters) 152.4 Current Weight (lbs) 39.009 kg Weight (Calculated Kilograms) 39.0 Weight (Calculated Grams) 02082.9 [place] Body Weight 100 % [place] Body Weight 86 Body Mass Index (BMI) 16.7 Weight Status Underweight GI Symptoms GI Symptoms None Last BM none Difficult in: None Skin Integrity/Comment: intact Current %PO Fair (50-74%) Estimated Nutritional Goals Calories/Kcals/Kg 25-30 based on IBW 45kg Kcals Calculated 9755-9942 Protein g/k-1.2 Protein Calculated 45-54 Fluid: ml 1125-1350ml (1ml/kcal) Nutritional Problem 1. Problem Problem altered nutrition related lab values Etiology hx of DM Signs/Symptoms: Glucose 186, POC 383 Malnutrition Alert Protein-Calorie Malnutrition N/A Is there a minimum of two criteria No selected? Query Text:Check all the applicable criteria. A minimum of two criteria are recommended for diagnosis of either severe or non-severe malnutrition. Intervention/Recommendation Comments 1. Recommend CCHO, low sodium diet for optimal glycemic and BP control. RN notified. 2. Monitor PO intake, wt, labs and skin integrity 3. F/U as high risk in 2-3 days, 06/24-06/25 Expected Outcomes/Goals Expected Outcomes/Goals 1. PO intake to meet at least 75% of nutritional needs. 2. Wt stability, skin to remain intact, labs to improve
[2017-07-09] MEDS: Morphine Sulfate 2 mg/mL 1mL Syr IVP PRN (22:21)
[2017-07-10] MEDS: Albuterol/Ipratropium Neb 3 ML AERS HHN SCH ×4 (00:33→18:39)
[2017-07-10] MEDS: INSULIN ASPART, RECOMBINANT 100 UNITS/ML SUBQ SCH ×5 (01:18→17:12)
[2017-07-10 05:35] LABS: % BASOPHILS 0.4 % (0.0-2.0); % EOSINOPHILS 0.5 % (0.0-5.0); % LYMPHOCYTES 7.7 % (20.0-50.0); % MONOCYTES 5.5 % (2.0-10.0); % NEUTROPHILS 85.9 % (40.0-80.0); EOSINOPHILE ABSOLUTE 0.1 Th/cmm (0.1-0.4); LYMPHOCYTE ABSOLUTE 0.8 Th/cmm (1.5-3.0); MEAN CELL VOLUME 84.6 fl (81-100); MEAN CORPUSCULAR HGB CONC 33.1 pg (28.0-36.0); MEAN PLATELET VOLUME 7.8 fl; MONOCYTE ABSOLUTE 0.6 Th/cmm (0.3-1.0); NEUTROPHILE ABSOLUTE 8.6 Th/cmm (1.8-8.0); PLATELET COUNT 269 Th/cmm (150-400); RED BLOOD COUNT 3.56 Mil/cmm (3.80-5.20); RED CELL DISTRIBUTION WIDTH 15.5 % (11.5-20.0)
[2017-07-10 05:54] LABS: ANION GAP 8.5 (7.0-16.0); BUN - UREA NITROGEN 13 mg/dL (7-25); CALCIUM SERUM 8.4 mg/dL (8.6-10.3); CARBON DIOXIDE 26.5 mEq/L (21.0-31.0); CHLORIDE 108 mEq/L (98-107); CREATININE - SERUM 1.4 mg/dL (0.6-1.2); GLUCOSE 208 mg/dL (70-105); MAGNESIUM 1.5 mg/dL (1.9-2.7); SODIUM SERUM 140 mEq/L (136-145)
[2017-07-10 06:04] LABS: HEMATOCRIT 30.1 % (41.0-60); WHITE BLOOD COUNT 10.1 Th/cmm (4.8-10.8)
--- NOTE | 2017-07-10 09:49 | General Progress Note ---
Subjective - Review of Systems Service Date: 07/10/17 Events since last encounter: EGD noted, Hb stable Objective - Results Result Diagrams: 07/10/17 04:59 07/10/17 04:59 Recent Labs: Laboratory Last Values WBC 10.1 Th/cmm (4.8-10.8) D 07/10/17 04:59 RBC 3.56 Mil/cmm (3.80-5.20) L 07/10/17 04:59 Hgb 10.0 gm/dL (12-16) L 07/10/17 04:59 Hct 30.1 % (41.0-60) L D 07/10/17 04:59 MCV 84.6 fl (81-100) 07/10/17 04:59 MCH 28.0 pg (27.0-31.0) 07/10/17 04:59 MCHC Differential 33.1 pg (28.0-36.0) 07/10/17 04:59 RDW 15.5 % (11.5-20.0) 07/10/17 04:59 Plt Count 269 Th/cmm (150-400) 07/10/17 04:59 MPV 7.8 fl 07/10/17 04:59 Neutrophils % 85.9 % (40.0-80.0) H 07/10/17 04:59 Band Neutrophils % 2 % (0-10) 07/04/17 04:30 Lymphocytes % 7.7 % (20.0-50.0) L 07/10/17 04:59 Monocytes % 5.5 % (2.0-10.0) 07/10/17 04:59 Eosinophils % 0.5 % (0.0-5.0) 07/10/17 04:59 Basophils % 0.4 % (0.0-2.0) 07/10/17 04:59 Neutrophils (Manual) 80 % (40-80) 07/04/17 04:30 Lymphocytes 12 % (20-50) L 07/04/17 04:30 Monocytes 2 % (2-10) 07/04/17 04:30 Eosinophils 4 % (0-5) 07/04/17 04:30 Hypochromia 1+ 07/04/17 04:30 Platelet Estimate ADEQUATE (NORMAL) 07/04/17 04:30 Polychromasia 1+ 07/04/17 04:30 Schistocytes 1+ 07/04/17 04:30 PT 12.0 SECONDS (9.5-11.5) H 07/08/17 04:15 INR 1.14 (0.5-1.4) 07/08/17 04:15 PTT (Actin FS) 25.0 SECONDS (26.0-38.0) L 07/08/17 04:15 D-Dimer 3600 ng/mL (100-400) H 06/21/17 18:20 Specimen Source Arterial 06/28/17 10:55 Sample Site Right Radial 06/28/17 10:55 pH 7.44 (7.35-7.45) 06/28/17 10:55 pCO2 36.0 mmHg (35.0-45.0) 06/28/17 10:55 pO2 100.0 mmHg (80.0-100.0) 06/28/17 10:55 HCO3 25.4 mEq/L (20.0-26.0) 06/28/17 10:55 Base Excess 0.6 mEq/L (-3.0-3.0) 06/28/17 10:55 O2 Saturation 98.0 % (92.0-100.0) 06/28/17 10:55 Rashid Test Positive 06/28/17 10:55 Vent Rate N/A 06/28/17 10:55 Inspired O2 28 06/28/17 10:55 Tidal Volume N/A 06/28/17 10:55 PEEP N/A 06/28/17 10:55 Pressure (ins/psv/peep) N/A 06/28/17 10:55 Critical Value DM 06/28/17 10:55 Sodium 140 mEq/L (136-145) 07/10/17 04:59 Potassium 3.0 mEq/L (3.5-5.1) L 07/10/17 04:59 Chloride 108 mEq/L (98-107) H 07/10/17 04:59 Carbon Dioxide 26.5 mEq/L (21.0-31.0) 07/10/17 04:59 Anion Gap 8.5 (7.0-16.0) 07/10/17 04:59 BUN 13 mg/dL (7-25) 07/10/17 04:59 Creatinine 1.4 mg/dL (0.6-1.2) H 07/10/17 04:59 Est GFR ( Amer) TNP 07/10/17 04:59 Est GFR (Non-Af Amer) TNP 07/10/17 04:59 BUN/Creatinine Ratio 9.3 07/10/17 04:59 Glucose 208 mg/dL (70-105) H 07/10/17 04:59 POC Glucose 157 MG/DL (70 - 105) H 07/10/17 05:20 Hemoglobin A1c % 11.7 % (4.0-6.0) H 06/21/17 18:20 Calcium 8.4 mg/dL (8.6-10.3) L 07/10/17 04:59 Phosphorus 3.0 mg/dL (2.5-5.0) 07/10/17 04:59 Magnesium 1.5 mg/dL (1.9-2.7) L 07/10/17 04:59 Iron 19 ug/dL (27-139) L 06/22/17 05:20 TIBC 176 ug/dL (250-450) L 06/22/17 05:20 Iron Saturation 11 % (15-55) L 06/22/17 05:20 Unsaturated IBC 157 ug/dL (118-369) 06/22/17 05:20 Ferritin 164 ng/mL (15-150) H 06/22/17 05:20 Total Bilirubin 0.6 mg/dL (0.3-1.0) 07/09/17 04:30 AST 31 U/L (13-39) 07/09/17 04:30 ALT 18 U/L (7-52) 07/09/17 04:30 Alkaline Phosphatase 211 U/L (34-104) H 07/09/17 04:30 Ammonia 38 umol/L (16-53) 07/08/17 04:15 Creatine Kinase 39 U/L (30-223) 06/21/17 18:20 Troponin I 0.01 ng/mL (0.01-0.05) 06/21/17 18:20 B-Natriuretic Peptide 108.0 pg/mL (5.0-100.0) H 07/09/17 04:30 Total Protein 5.0 gm/dL (6.0-8.3) L 07/09/17 04:30 Albumin 1.9 gm/dL (3.7-5.3) L 07/09/17 04:30 Globulin 3.1 gm/dL 07/09/17 04:30 Albumin/Globulin Ratio 0.6 (1.0-1.8) L 07/09/17 04:30 Prealbumin 12 mg/dL (9-32) 07/09/17 04:30 Triglycerides 57 mg/dL (<150) 07/09/17 04:30 Cholesterol 129 mg/dL (<200) 06/21/17 18:20 LDL Cholesterol Direct 65 mg/dL (75-193) L 06/21/17 18:20 HDL Cholesterol 43 mg/dL (23-92) 06/21/17 18:20 Vitamin B12 1797 pg/mL (232-1245) H 07/02/17 03:41 Folic Acid 10.3 ng/mL (>3.0) 07/02/17 03:41 Helicobacter pylori Ab POSITIVE (NEGATIVE) 06/23/17 10:50 Blood Type O POSITIVE 07/09/17 09:16 Antibody Screen NEGATIVE 07/09/17 09:16 Crossmatch See Detail 07/09/17 09:16 - Physical Exam Vitals and I&O: Vital Signs Temp 97.6 F 07/10/17 07:48 Pulse 99 07/10/17 09:00 Resp 21 07/10/17 09:00 BP 146/78 07/10/17 09:00 Pulse Ox 97 07/10/17 09:00 Intake & Output 07/09/17 07/10/17 07/10/17 18:59 06:59 18:59 Intake Total 1329 558.5 330 Output Total 900 750 60 Balance 429 -191.5 270 Weight (lbs) 59.421 kg 60.373 kg 60.827 kg Intake: Intake, IV Amount 1150 78.5 Cefepime 0.5 gm In 50 Dextrose 5% 50 ml @ 100 mls/hr IV Q24H ED Rx#: [id number] D5-0.45NS 1,000 ml @ 80 1000 mls/hr IV .[id number] ED Rx #:[id number] Pantoprazole 80 mg In 100 78.5 Sodium Chloride 0.9% 100 ml @ 10 mls/hr IV Q10H ED Rx#:[id number] Oral 0 Tube Feeding 0 TPN/PPN 93 480 330 Blood Product 86 Output: Urine 900 750 60 Other: # Bowel Movements 2 Active Medications: Current Medications Acetaminophen (Tylenol) 650 mg PO Q4H PRN PRN Reason: Pain Or Fever above 101 Stop: 08/20/17 19:40 Acetaminophen/Hydrocodone Bitart ([place] 5mg/325mg) 1 tab PO Q4H PRN PRN Reason: Pain (Severe) Stop: 09/04/17 13:12 Al Hydrox/Mg Hydrox/Simethicone (Maalox) 30 ml PO Q6H PRN PRN Reason: Dyspepsia Stop: 08/20/17 19:40 Albuterol Sulfate (Albuterol 2.5mg/3ml Neb Ud) 2.5 mg HHN Q2HRT PRN PRN Reason: Shortness of Breath or Wheeze Stop: 08/20/17 19:40 Albuterol/Ipratropium (Duoneb Neb) 3 ml HHN Q6HRT ED Stop: 08/30/17 18:59 Last Admin: 07/10/17 06:45 Dose: 3 ml Amlodipine Besylate (Norvasc) 10 mg PO DAILY [facility] Stop: 09/06/17 08:59 Last Admin: 07/09/17 10:15 Dose: Not Given Clonidine HCl (Geyazilh-Wwf-7) 1 patch TD Sa [facility] Stop: 09/07/17 12:14 Last Admin: 07/09/17 12:52 Dose: 1 patch Diltiazem HCl (Cardizem) 20 mg IVP Q4H PRN PRN Reason: HR> 120 Stop: 09/04/17 17:55 Enalaprilat (Vasotec) 1.25 mg IVP Q6HR PRN PRN Reason: SBP 160 mmhg and above Stop: 09/08/17 05:59 Last Admin: 07/10/17 05:25 Dose: 1.25 mg Guaifenesin (Robitussin) 200 mg PO Q4HR PRN PRN Reason: Cough or Congestion Stop: 08/20/17 19:40 Haloperidol Decanoate (Haldol Dec) 25 mg IM QMONTH ED Stop: 08/23/17 09:59 Last Admin: 06/24/17 09:10 Dose: 25 mg Hydralazine HCl (Apresoline 20 Mg/Ml) 10 mg IV Q6HR PRN PRN Reason: SBP ABOVE 160 Stop: 08/25/17 12:20 Last Admin: 07/10/17 07:49 Dose: 10 mg Pantoprazole Sodium 80 mg/ (Sodium Chloride) 100 mls @ 10 mls/hr IV Q10H [facility] Stop: 09/04/17 19:14 Last Admin: 07/09/17 23:08 Dose: 10 mls/hr Cefepime HCl 0.5 gm/ Dextrose 50 mls @ 100 mls/hr IV Q24H [facility] Stop: 09/06/17 13:59 Last Infusion: 07/09/17 15:22 Dose: Infused Dextrose/ Amino Acids/ (Electrolytes) 1,000 mls @ 40 mls/hr IV .Q24H [facility] Stop: 08/07/17 15:59 Last Admin: 07/09/17 15:23 Dose: 40 mls/hr Potassium Chloride 40 meq/Lidocaine HCl 25 mg/ Sodium Chloride 272.5 mls @ 68 mls/hr IV X1 ONE Stop: 07/10/17 14:00 Magnesium Sulfate (Magnesium Sulfate Premix) 2 gm in 50 mls @ 25 mls/hr IV NOW ONE Stop: 07/10/17 11:59 Dextrose/Sodium Chloride (D5-0.45ns) 1,000 mls @ 20 mls/hr IV .Q24H [facility] Stop: 09/08/17 09:25 Insulin Aspart (Novolog) 0 units SUBQ Q6HR ED PRN Reason: Protocol Stop: 09/03/17 00:00 Last Admin: 07/10/17 06:26 Dose: Not Given Ipratropium [place] (Atrovent Neb 0.5mg/2.5ml) 0.5 mg IH Q2HRT PRN PRN Reason: Shortness of Breath or Wheeze Stop: 08/20/17 19:40 Lactobacillus Rhamnosus (Culturelle 15b) 1 each PO DAILY [facility] Stop: 08/30/17 08:59 Last Admin: 07/09/17 10:15 Dose: Not Given Mirtazapine (Remeron) 15 mg PO HS ED PRN Reason: Protocol Stop: 08/20/17 20:59 Last Admin: 07/09/17 21:06 Dose: Not Given Miscellaneous (Probiotic Screen) 1 ea MC PRN PRN PRN Reason: PROTOCOL Stop: 08/29/17 11:59 Miscellaneous (Tpn Per Pharmacy) 1 ea MC PRN PRN PRN Reason: PROTOCOL Stop: 09/06/17 13:12 Morphine Sulfate (Morphine) 2 mg IVP Q4HR PRN PRN Reason: Pain (Moderate) Stop: 09/04/17 19:01 Last Admin: 07/08/17 01:16 Dose: 2 mg Morphine Sulfate (Morphine) 2 mg IVP Q4H PRN PRN Reason: Pain (Severe) Stop: 09/06/17 13:06 Last Admin: 07/09/17 22:21 Dose: 2 mg Nitroglycerin (Nitrostat) 0.4 mg SL Q5MIN PRN PRN Reason: Chest Pain Stop: 08/20/17 19:40 Ondansetron HCl (Zofran Odt) 4 mg PO Q6H PRN PRN Reason: Nausea / Vomiting Stop: 09/04/17 13:12 General: Other (ngt suction bloody) HEENT: Atraumatic Neck: Supple Cardiovascular: Regular rate Abdomen: Bowel sounds, Soft, Other (dressing in midline no bleeding) Extremities: Other (right arm picc) - Procedures Procedures: Procedures Procedure Code Date PARTIAL REMOVAL OF COLON 95855 06/21/17 RESECTION OF RIGHT LARGE INTESTINE, OPEN APPROACH [id number] 06/21/17 Nutritional Asmnt/Malnutr-PDOC - Dietary Evaluation Malnutrition Findings (Please click <Entered> for more info): Nutritional Asmnt/Malnutrition Start: 06/22/17 18: 04 Text: Status: Complete Freq: Document 06/22/17 18:04 JENY (Rec: 06/22/17 18:15 [email or web address]) Nutritional Asmnt/Malnutrition Patient General Information Nutritional Screening High Risk Consult Diagnosis left lower extremity DVT, severe anemia, CHF, HTN Pertinent Medical Hx/Surgical Hx DM, anemia, renal stones, schizophrenia Subjective Information Pt seen lying in bed, confused at time of visit. Spoke with LULÚ Seay, RN reported pt ate well, consumed 60% of breakfast this morning. Per notes, pt has EGD and colonoscopy scheduled tommorrow. Current Diet Order/ Nutrition Support pureed Pertinent Medications D5-0.9ns, novolog, remeron, kcl Pertinent Labs 06/21 Na 137, K 3.5, Cl 100, BUN 24, Cr 1.3, Glucose 186, AST 10, ALT 6, Alb 2.6 06/22 POC 383 Nutritional Hx/Data Height 1.52 m Height (Calculated Centimeters) 152.4 Current Weight (lbs) 39.009 kg Weight (Calculated Kilograms) 39.0 Weight (Calculated Grams) 79034.9 [place] Body Weight 100 % [place] Body Weight 86 Body Mass Index (BMI) 16.7 Weight Status Underweight GI Symptoms GI Symptoms None Last BM none Difficult in: None Skin Integrity/Comment: intact Current %PO Fair (50-74%) Estimated Nutritional Goals Calories/Kcals/Kg 25-30 based on IBW 45kg Kcals Calculated 6621-2123 Protein g/k-1.2 Protein Calculated 45-54 Fluid: ml 1125-1350ml (1ml/kcal) Nutritional Problem 1. Problem Problem altered nutrition related lab values Etiology hx of DM Signs/Symptoms: Glucose 186, POC 383 Malnutrition Alert Protein-Calorie Malnutrition N/A Is there a minimum of two criteria No selected? Query Text:Check all the applicable criteria. A minimum of two criteria are recommended for diagnosis of either severe or non-severe malnutrition. Intervention/Recommendation Comments 1. Recommend CCHO, low sodium diet for optimal glycemic and BP control. RN notified. 2. Monitor PO intake, wt, labs and skin integrity 3. F/U as high risk in 2-3 days, 06/24-06/25 Expected Outcomes/Goals Expected Outcomes/Goals 1. PO intake to meet at least 75% of nutritional needs. 2. Wt stability, skin to remain intact, labs to improve
[2017-07-10] MEDS ORDERED: Potassium Chloride 40 MEQ, Lidocaine 1% 20mL Vial 25 MG in Sodium Chloride 0.9% 250 ML IV ONE (10:00)
[2017-07-10] MEDS ORDERED: Mag Sulfate 2gm/50mL Premix 2 GM/50 ML BAG IV ONE (10:00)
[2017-07-10] MEDS: Pantoprazole 80 MG in Sodium Chloride 0.9% 100 ML IV SCH (10:03)
--- NOTE | 2017-07-10 12:33 | Internal Medicine Prog Note ---
Internal Medicine Subjective - Subjective Patient seen and examined:: with staff, chart reviewed Patient is:: asleep, non-verbal (ngt), non-interactive Patient Complaints of:: congestion Per staff patient has:: no adverse event, no episodes of fall, tolerating meds Internal Medicine Objective - Results Result Diagrams: 07/10/17 04:59 07/10/17 04:59 Recent Labs: Laboratory Last Values WBC 10.1 Th/cmm (4.8-10.8) D 07/10/17 04:59 RBC 3.56 Mil/cmm (3.80-5.20) L 07/10/17 04:59 Hgb 10.0 gm/dL (12-16) L 07/10/17 04:59 Hct 30.1 % (41.0-60) L D 07/10/17 04:59 MCV 84.6 fl (81-100) 07/10/17 04:59 MCH 28.0 pg (27.0-31.0) 07/10/17 04:59 MCHC Differential 33.1 pg (28.0-36.0) 07/10/17 04:59 RDW 15.5 % (11.5-20.0) 07/10/17 04:59 Plt Count 269 Th/cmm (150-400) 07/10/17 04:59 MPV 7.8 fl 07/10/17 04:59 Neutrophils % 85.9 % (40.0-80.0) H 07/10/17 04:59 Band Neutrophils % 2 % (0-10) 07/04/17 04:30 Lymphocytes % 7.7 % (20.0-50.0) L 07/10/17 04:59 Monocytes % 5.5 % (2.0-10.0) 07/10/17 04:59 Eosinophils % 0.5 % (0.0-5.0) 07/10/17 04:59 Basophils % 0.4 % (0.0-2.0) 07/10/17 04:59 Neutrophils (Manual) 80 % (40-80) 07/04/17 04:30 Lymphocytes 12 % (20-50) L 07/04/17 04:30 Monocytes 2 % (2-10) 07/04/17 04:30 Eosinophils 4 % (0-5) 07/04/17 04:30 Hypochromia 1+ 07/04/17 04:30 Platelet Estimate ADEQUATE (NORMAL) 07/04/17 04:30 Polychromasia 1+ 07/04/17 04:30 Schistocytes 1+ 07/04/17 04:30 PT 12.0 SECONDS (9.5-11.5) H 07/08/17 04:15 INR 1.14 (0.5-1.4) 07/08/17 04:15 PTT (Actin FS) 25.0 SECONDS (26.0-38.0) L 07/08/17 04:15 D-Dimer 3600 ng/mL (100-400) H 06/21/17 18:20 Specimen Source Arterial 06/28/17 10:55 Sample Site Right Radial 06/28/17 10:55 pH 7.44 (7.35-7.45) 06/28/17 10:55 pCO2 36.0 mmHg (35.0-45.0) 06/28/17 10:55 pO2 100.0 mmHg (80.0-100.0) 06/28/17 10:55 HCO3 25.4 mEq/L (20.0-26.0) 06/28/17 10:55 Base Excess 0.6 mEq/L (-3.0-3.0) 06/28/17 10:55 O2 Saturation 98.0 % (92.0-100.0) 06/28/17 10:55 Rashid Test Positive 06/28/17 10:55 Vent Rate N/A 06/28/17 10:55 Inspired O2 28 06/28/17 10:55 Tidal Volume N/A 06/28/17 10:55 PEEP N/A 06/28/17 10:55 Pressure (ins/psv/peep) N/A 06/28/17 10:55 Critical Value DM 06/28/17 10:55 Sodium 140 mEq/L (136-145) 07/10/17 04:59 Potassium 3.0 mEq/L (3.5-5.1) L 07/10/17 04:59 Chloride 108 mEq/L (98-107) H 07/10/17 04:59 Carbon Dioxide 26.5 mEq/L (21.0-31.0) 07/10/17 04:59 Anion Gap 8.5 (7.0-16.0) 07/10/17 04:59 BUN 13 mg/dL (7-25) 07/10/17 04:59 Creatinine 1.4 mg/dL (0.6-1.2) H 07/10/17 04:59 Est GFR ( Amer) TNP 07/10/17 04:59 Est GFR (Non-Af Amer) TNP 07/10/17 04:59 BUN/Creatinine Ratio 9.3 07/10/17 04:59 Glucose 208 mg/dL (70-105) H 07/10/17 04:59 POC Glucose 157 MG/DL (70 - 105) H 07/10/17 05:20 Hemoglobin A1c % 11.7 % (4.0-6.0) H 06/21/17 18:20 Calcium 8.4 mg/dL (8.6-10.3) L 07/10/17 04:59 Phosphorus 3.0 mg/dL (2.5-5.0) 07/10/17 04:59 Magnesium 1.5 mg/dL (1.9-2.7) L 07/10/17 04:59 Iron 19 ug/dL (27-139) L 06/22/17 05:20 TIBC 176 ug/dL (250-450) L 06/22/17 05:20 Iron Saturation 11 % (15-55) L 06/22/17 05:20 Unsaturated IBC 157 ug/dL (118-369) 06/22/17 05:20 Ferritin 164 ng/mL (15-150) H 06/22/17 05:20 Total Bilirubin 0.6 mg/dL (0.3-1.0) 07/09/17 04:30 AST 31 U/L (13-39) 07/09/17 04:30 ALT 18 U/L (7-52) 07/09/17 04:30 Alkaline Phosphatase 211 U/L (34-104) H 07/09/17 04:30 Ammonia 38 umol/L (16-53) 07/08/17 04:15 Creatine Kinase 39 U/L (30-223) 06/21/17 18:20 Troponin I 0.01 ng/mL (0.01-0.05) 06/21/17 18:20 B-Natriuretic Peptide 108.0 pg/mL (5.0-100.0) H 07/09/17 04:30 Total Protein 5.0 gm/dL (6.0-8.3) L 07/09/17 04:30 Albumin 1.9 gm/dL (3.7-5.3) L 07/09/17 04:30 Globulin 3.1 gm/dL 07/09/17 04:30 Albumin/Globulin Ratio 0.6 (1.0-1.8) L 07/09/17 04:30 Prealbumin 12 mg/dL (9-32) 07/09/17 04:30 Triglycerides 57 mg/dL (<150) 07/09/17 04:30 Cholesterol 129 mg/dL (<200) 06/21/17 18:20 LDL Cholesterol Direct 65 mg/dL (75-193) L 06/21/17 18:20 HDL Cholesterol 43 mg/dL (23-92) 06/21/17 18:20 Vitamin B12 1797 pg/mL (232-1245) H 07/02/17 03:41 Folic Acid 10.3 ng/mL (>3.0) 07/02/17 03:41 Helicobacter pylori Ab POSITIVE (NEGATIVE) 06/23/17 10:50 Blood Type O POSITIVE 07/09/17 09:16 Antibody Screen NEGATIVE 07/09/17 09:16 Crossmatch See Detail 07/09/17 09:16 - Physical Exam Vitals and I&O: Vital Signs Temp 97.6 F 07/10/17 07:48 Pulse 95 07/10/17 11:00 Resp 16 07/10/17 11:00 BP 187/98 07/10/17 11:00 Pulse Ox 98 07/10/17 11:00 Intake & Output 07/09/17 07/10/17 07/10/17 18:59 06:59 18:59 Intake Total 1329 558.5 430 Output Total 900 750 201 Balance 429 -191.5 229 Weight (lbs) 59.421 kg 60.373 kg 60.645 kg Intake: Intake, IV Amount 1150 78.5 100 Cefepime 0.5 gm In 50 Dextrose 5% 50 ml @ 100 mls/hr IV Q24H ED Rx#: [id number] D5-0.45NS 1,000 ml @ 80 1000 mls/hr IV .[id number] ED Rx #:[id number] Pantoprazole 80 mg In 100 78.5 100 Sodium Chloride 0.9% 100 ml @ 10 mls/hr IV Q10H [facility] Rx#:[id number] Oral 0 Tube Feeding 0 TPN/PPN 93 480 330 Blood Product 86 Output: Urine 900 750 200 Stool 1 Other: # Bowel Movements 2 Active Medications: Current Medications Acetaminophen (Tylenol) 650 mg PO Q4H PRN PRN Reason: Pain Or Fever above 101 Stop: 08/20/17 19:40 Acetaminophen/Hydrocodone Bitart ([place] 5mg/325mg) 1 tab PO Q4H PRN PRN Reason: Pain (Severe) Stop: 09/04/17 13:12 Al Hydrox/Mg Hydrox/Simethicone (Maalox) 30 ml PO Q6H PRN PRN Reason: Dyspepsia Stop: 08/20/17 19:40 Albuterol Sulfate (Albuterol 2.5mg/3ml Neb Ud) 2.5 mg HHN Q2HRT PRN PRN Reason: Shortness of Breath or Wheeze Stop: 08/20/17 19:40 Albuterol/Ipratropium (Duoneb Neb) 3 ml HHN Q6HRT [facility] Stop: 08/30/17 18:59 Last Admin: 07/10/17 06:45 Dose: 3 ml Amlodipine Besylate (Norvasc) 10 mg PO DAILY [facility] Stop: 09/06/17 08:59 Last Admin: 07/09/17 10:15 Dose: Not Given Clonidine HCl ([id number]-Tmp-3) 1 patch TD Sa [facility] Stop: 09/07/17 12:14 Last Admin: 07/09/17 12:52 Dose: 1 patch Diltiazem HCl (Cardizem) 20 mg IVP Q4H PRN PRN Reason: HR> 120 Stop: 09/04/17 17:55 Enalaprilat (Vasotec) 1.25 mg IVP Q6HR PRN PRN Reason: SBP 160 mmhg and above Stop: 09/08/17 05:59 Last Admin: 07/10/17 10:58 Dose: 1.25 mg Guaifenesin (Robitussin) 200 mg PO Q4HR PRN PRN Reason: Cough or Congestion Stop: 08/20/17 19:40 Haloperidol Decanoate (Haldol Dec) 25 mg IM QMONTH [facility] Stop: 08/23/17 09:59 Last Admin: 06/24/17 09:10 Dose: 25 mg Hydralazine HCl (Apresoline 20 Mg/Ml) 10 mg IV Q6HR PRN PRN Reason: SBP ABOVE 160 Stop: 08/25/17 12:20 Last Admin: 07/10/17 07:49 Dose: 10 mg Pantoprazole Sodium 80 mg/ (Sodium Chloride) 100 mls @ 10 mls/hr IV Q10H ED Stop: 09/04/17 19:14 Last Admin: 07/10/17 10:03 Dose: 10 mls/hr Cefepime HCl 0.5 gm/ Dextrose 50 mls @ 100 mls/hr IV Q24H [facility] Stop: 09/06/17 13:59 Last Infusion: 07/09/17 15:22 Dose: Infused Dextrose/ Amino Acids/ (Electrolytes) 1,000 mls @ 40 mls/hr IV .Q24H [facility] Stop: 08/07/17 15:59 Last Admin: 07/09/17 15:23 Dose: 40 mls/hr Potassium Chloride 40 meq/Lidocaine HCl 25 mg/ Sodium Chloride 272.5 mls @ 68 mls/hr IV X1 ONE Stop: 07/10/17 14:00 Last Admin: 07/10/17 09:55 Dose: 68 mls/hr Dextrose/Sodium Chloride (D5-0.45ns) 1,000 mls @ 20 mls/hr IV .Q24H [facility] Stop: 09/08/17 09:25 Insulin Aspart (Novolog) 0 units SUBQ Q6HR ED PRN Reason: Protocol Stop: 09/03/17 00:00 Last Admin: 07/10/17 06:26 Dose: Not Given Ipratropium [place] (Atrovent Neb 0.5mg/2.5ml) 0.5 mg IH Q2HRT PRN PRN Reason: Shortness of Breath or Wheeze Stop: 08/20/17 19:40 Lactobacillus Rhamnosus (Culturelle 15b) 1 each PO DAILY [facility] Stop: 08/30/17 08:59 Last Admin: 07/09/17 10:15 Dose: Not Given Mirtazapine (Remeron) 15 mg PO HS ED PRN Reason: Protocol Stop: 08/20/17 20:59 Last Admin: 07/09/17 21:06 Dose: Not Given Miscellaneous (Probiotic Screen) 1 ea MC PRN PRN PRN Reason: PROTOCOL Stop: 08/29/17 11:59 Miscellaneous (Tpn Per Pharmacy) 1 ea MC PRN PRN PRN Reason: PROTOCOL Stop: 09/06/17 13:12 Morphine Sulfate (Morphine) 2 mg IVP Q4HR PRN PRN Reason: Pain (Moderate) Stop: 09/04/17 19:01 Last Admin: 07/08/17 01:16 Dose: 2 mg Morphine Sulfate (Morphine) 2 mg IVP Q4H PRN PRN Reason: Pain (Severe) Stop: 09/06/17 13:06 Last Admin: 07/09/17 22:21 Dose: 2 mg Nitroglycerin (Nitrostat) 0.4 mg SL Q5MIN PRN PRN Reason: Chest Pain Stop: 08/20/17 19:40 Ondansetron HCl (Zofran Odt) 4 mg PO Q6H PRN PRN Reason: Nausea / Vomiting Stop: 09/04/17 13:12 General: weak, demented, thin, bilateral temporal wasting HEENT: NC/AT, PERRLA, thinning hair, other (ngt) Neck: Supple Lungs: rales, ronchi Cardiovascular: RRR, Normal S1, Normal S2, without murmur Abdomen: soft, non-tender, non-distended, positive bowel sound Extremities: excoriation, contracture, deformity Neurological: lethargic, unsteady, bedbound - Procedures Procedures: Procedures Procedure Code Date PARTIAL REMOVAL OF COLON 71772 06/21/17 RESECTION OF RIGHT LARGE INTESTINE, OPEN APPROACH [id number] 06/21/17 Internal Medicine Assmt/Plan - Assessment Assessment: - Assessment Assessment: gi bleeding cecal mass sp resection acute dvt severe anemia dm2 schizophrenia htn psychosis hypokalemia - Plan Plan: monitor electrolytes continue lovenox--off follow up labs in am will follow jd edwards consultant reccomendations - Plan Plan: dr chin for surgical plans dc cancelled [address] dawn for tx and endoscopy Nutritional Asmnt/Malnutr-PDOC - Dietary Evaluation Malnutrition Findings (Please click <Entered> for more info): Nutritional Asmnt/Malnutrition Start: 06/22/17 18: 04 Text: Status: Complete Freq: Document 06/22/17 18:04 LCJENYG (Rec: 06/22/17 18:15 [id number]) Nutritional Asmnt/Malnutrition Patient General Information Nutritional Screening High Risk Consult Diagnosis left lower extremity DVT, severe anemia, CHF, HTN Pertinent Medical Hx/Surgical Hx DM, anemia, renal stones, schizophrenia Subjective Information Pt seen lying in bed, confused at time of visit. Spoke with LULÚ Seay, RN reported pt ate well, consumed 60% of breakfast this morning. Per notes, pt has EGD and colonoscopy scheduled tommorrow. Current Diet Order/ Nutrition Support pureed Pertinent Medications D5-0.9ns, novolog, remeron, kcl Pertinent Labs 06/21 Na 137, K 3.5, Cl 100, BUN 24, Cr 1.3, Glucose 186, AST 10, ALT 6, Alb 2.6 06/22 POC 383 Nutritional Hx/Data Height 1.52 m Height (Calculated Centimeters) 152.4 Current Weight (lbs) 39.009 kg Weight (Calculated Kilograms) 39.0 Weight (Calculated Grams) 14880.9 [place] Body Weight 100 % [place] Body Weight 86 Body Mass Index (BMI) 16.7 Weight Status Underweight GI Symptoms GI Symptoms None Last BM none Difficult in: None Skin Integrity/Comment: intact Current %PO Fair (50-74%) Estimated Nutritional Goals Calories/Kcals/Kg 25-30 based on IBW 45kg Kcals Calculated 9596-6976 Protein g/k-1.2 Protein Calculated 45-54 Fluid: ml 1125-1350ml (1ml/kcal) Nutritional Problem 1. Problem Problem altered nutrition related lab values Etiology hx of DM Signs/Symptoms: Glucose 186, POC 383 Malnutrition Alert Protein-Calorie Malnutrition N/A Is there a minimum of two criteria No selected? Query Text:Check all the applicable criteria. A minimum of two criteria are recommended for diagnosis of either severe or non-severe malnutrition. Intervention/Recommendation Comments 1. Recommend CCHO, low sodium diet for optimal glycemic and BP control. RN notified. 2. Monitor PO intake, wt, labs and skin integrity 3. F/U as high risk in 2-3 days, 06/24-06/25 Expected Outcomes/Goals Expected Outcomes/Goals 1. PO intake to meet at least 75% of nutritional needs. 2. Wt stability, skin to remain intact, labs to improve
[2017-07-10] MEDS: Morphine Sulfate 2 mg/mL 1mL Syr IVP PRN (12:52)
[2017-07-10] MEDS: Lactobacillus Rhamnosus GG 15 Billion CFU CAP.SPRINK PO SCH (14:54)
[2017-07-10] MEDS: AMINO ACIDS 8.5% IV SCH (15:08)
[2017-07-10] MEDS: DEXTROSE 70% IV SCH (15:08)
[2017-07-11] MEDS: Albuterol/Ipratropium Neb 3 ML AERS HHN SCH ×4 (00:32→19:28)
[2017-07-11] MEDS: INSULIN ASPART, RECOMBINANT 100 UNITS/ML SUBQ SCH ×4 (01:07→18:32)
[2017-07-11] MEDS: Morphine Sulfate 2 mg/mL 1mL Syr IVP PRN ×3 (02:15→23:48)
[2017-07-11 04:28] LABS: % BASOPHILS 3.4 % (0.0-2.0); % EOSINOPHILS 0.3 % (0.0-5.0); % LYMPHOCYTES 8.3 % (20.0-50.0); % MONOCYTES 5.5 % (2.0-10.0); % NEUTROPHILS 82.5 % (40.0-80.0); BASOPHILE ABSOLUTE 0.3 Th/cumm (0-0.2); HEMOGLOBIN 9.2 gm/dL (12-16); LYMPHOCYTE ABSOLUTE 0.8 Th/cmm (1.5-3.0); MEAN CELL VOLUME 83.2 fl (81-100); MEAN CORPUSCULAR HEMOGLOBIN 28.7 pg (27.0-31.0); MEAN CORPUSCULAR HGB CONC 34.5 pg (28.0-36.0); MEAN PLATELET VOLUME 7.5 fl; MONOCYTE ABSOLUTE 0.5 Th/cmm (0.3-1.0); NEUTROPHILE ABSOLUTE 8.3 Th/cmm (1.8-8.0); PLATELET COUNT 255 Th/cmm (150-400); RED BLOOD COUNT 3.21 Mil/cmm (3.80-5.20); RED CELL DISTRIBUTION WIDTH 16.2 % (11.5-20.0); WHITE BLOOD COUNT 9.9 Th/cmm (4.8-10.8)
[2017-07-11 04:39] LABS: HEMATOCRIT 26.7 % (41.0-60)
[2017-07-11] MEDS: Albuterol Nebulizer 2.5mg/3mL HHN PRN (05:23)
[2017-07-11 05:58] LABS: ANION GAP 9.9 (7.0-16.0); BUN - UREA NITROGEN 15 mg/dL (7-25); CALCIUM SERUM 8.7 mg/dL (8.6-10.3); CARBON DIOXIDE 24.7 mEq/L (21.0-31.0); CHLORIDE 105 mEq/L (98-107); CREATININE - SERUM 1.7 mg/dL (0.6-1.2); GLUCOSE 287 mg/dL (70-105); MAGNESIUM 2.3 mg/dL (1.9-2.7); PHOSPHOROUS 2.5 mg/dL (2.5-5.0); POTASSIUM SERUM 3.6 mEq/L (3.5-5.1); SODIUM SERUM 136 mEq/L (136-145)
--- NOTE | 2017-07-11 09:16 | Internal Medicine Prog Note ---
Internal Medicine Subjective - Subjective Service Date: 07/11/17 (patient still having blood in stool per nursing staff ) Patient seen and examined:: with staff Patient is:: asleep, non-verbal (ngt), non-interactive Patient Complaints of:: congestion Per staff patient has:: no adverse event, no episodes of fall, tolerating meds Internal Medicine Objective - Results Result Diagrams: 07/11/17 04:10 07/11/17 05:25 Recent Labs: Laboratory Last Values WBC 9.9 Th/cmm (4.8-10.8) 07/11/17 04:10 RBC 3.21 Mil/cmm (3.80-5.20) L 07/11/17 04:10 Hgb 9.2 gm/dL (12-16) L 07/11/17 04:10 Hct 26.7 % (41.0-60) L D 07/11/17 04:10 MCV 83.2 fl (81-100) 07/11/17 04:10 MCH 28.7 pg (27.0-31.0) 07/11/17 04:10 MCHC Differential 34.5 pg (28.0-36.0) 07/11/17 04:10 RDW 16.2 % (11.5-20.0) 07/11/17 04:10 Plt Count 255 Th/cmm (150-400) 07/11/17 04:10 MPV 7.5 fl 07/11/17 04:10 Neutrophils % 82.5 % (40.0-80.0) H 07/11/17 04:10 Band Neutrophils % 2 % (0-10) 07/04/17 04:30 Lymphocytes % 8.3 % (20.0-50.0) L 07/11/17 04:10 Monocytes % 5.5 % (2.0-10.0) 07/11/17 04:10 Eosinophils % 0.3 % (0.0-5.0) 07/11/17 04:10 Basophils % 3.4 % (0.0-2.0) H 07/11/17 04:10 Neutrophils (Manual) 80 % (40-80) 07/04/17 04:30 Lymphocytes 12 % (20-50) L 07/04/17 04:30 Monocytes 2 % (2-10) 07/04/17 04:30 Eosinophils 4 % (0-5) 07/04/17 04:30 Hypochromia 1+ 07/04/17 04:30 Platelet Estimate ADEQUATE (NORMAL) 07/04/17 04:30 Polychromasia 1+ 07/04/17 04:30 Schistocytes 1+ 07/04/17 04:30 PT 12.0 SECONDS (9.5-11.5) H 07/08/17 04:15 INR 1.14 (0.5-1.4) 07/08/17 04:15 PTT (Actin FS) 25.0 SECONDS (26.0-38.0) L 07/08/17 04:15 D-Dimer 3600 ng/mL (100-400) H 06/21/17 18:20 Specimen Source Arterial 06/28/17 10:55 Sample Site Right Radial 06/28/17 10:55 pH 7.44 (7.35-7.45) 06/28/17 10:55 pCO2 36.0 mmHg (35.0-45.0) 06/28/17 10:55 pO2 100.0 mmHg (80.0-100.0) 06/28/17 10:55 HCO3 25.4 mEq/L (20.0-26.0) 06/28/17 10:55 Base Excess 0.6 mEq/L (-3.0-3.0) 06/28/17 10:55 O2 Saturation 98.0 % (92.0-100.0) 06/28/17 10:55 Rashid Test Positive 06/28/17 10:55 Vent Rate N/A 06/28/17 10:55 Inspired O2 28 06/28/17 10:55 Tidal Volume N/A 06/28/17 10:55 PEEP N/A 06/28/17 10:55 Pressure (ins/psv/peep) N/A 06/28/17 10:55 Critical Value DM 06/28/17 10:55 Sodium 136 mEq/L (136-145) 07/11/17 05:25 Potassium 3.6 mEq/L (3.5-5.1) 07/11/17 05:25 Chloride 105 mEq/L (98-107) 07/11/17 05:25 Carbon Dioxide 24.7 mEq/L (21.0-31.0) 07/11/17 05:25 Anion Gap 9.9 (7.0-16.0) 07/11/17 05:25 BUN 15 mg/dL (7-25) 07/11/17 05:25 Creatinine 1.7 mg/dL (0.6-1.2) H 07/11/17 05:25 Est GFR ( Amer) TNP 07/11/17 05:25 Est GFR (Non-Af Amer) TNP 07/11/17 05:25 BUN/Creatinine Ratio 8.8 07/11/17 05:25 Glucose 287 mg/dL (70-105) H 07/11/17 05:25 POC Glucose 228 MG/DL (70 - 105) H 07/11/17 05:20 Hemoglobin A1c % 11.7 % (4.0-6.0) H 06/21/17 18:20 Calcium 8.7 mg/dL (8.6-10.3) 07/11/17 05:25 Phosphorus 2.5 mg/dL (2.5-5.0) 07/11/17 05:25 Magnesium 2.3 mg/dL (1.9-2.7) 07/11/17 05:25 Iron 19 ug/dL (27-139) L 06/22/17 05:20 TIBC 176 ug/dL (250-450) L 06/22/17 05:20 Iron Saturation 11 % (15-55) L 06/22/17 05:20 Unsaturated IBC 157 ug/dL (118-369) 06/22/17 05:20 Ferritin 164 ng/mL (15-150) H 06/22/17 05:20 Total Bilirubin 0.6 mg/dL (0.3-1.0) 07/09/17 04:30 AST 31 U/L (13-39) 07/09/17 04:30 ALT 18 U/L (7-52) 07/09/17 04:30 Alkaline Phosphatase 211 U/L (34-104) H 07/09/17 04:30 Ammonia 38 umol/L (16-53) 07/08/17 04:15 Creatine Kinase 39 U/L (30-223) 06/21/17 18:20 Troponin I 0.01 ng/mL (0.01-0.05) 06/21/17 18:20 B-Natriuretic Peptide 108.0 pg/mL (5.0-100.0) H 07/09/17 04:30 Total Protein 5.0 gm/dL (6.0-8.3) L 07/09/17 04:30 Albumin 1.9 gm/dL (3.7-5.3) L 07/09/17 04:30 Globulin 3.1 gm/dL 07/09/17 04:30 Albumin/Globulin Ratio 0.6 (1.0-1.8) L 07/09/17 04:30 Prealbumin 12 mg/dL (9-32) 07/09/17 04:30 Triglycerides 57 mg/dL (<150) 07/09/17 04:30 Cholesterol 102 mg/dL (<200) 07/11/17 04:22 LDL Cholesterol Direct 65 mg/dL (75-193) L 06/21/17 18:20 HDL Cholesterol 43 mg/dL (23-92) 06/21/17 18:20 Vitamin B12 1797 pg/mL (232-1245) H 07/02/17 03:41 Folic Acid 10.3 ng/mL (>3.0) 07/02/17 03:41 Helicobacter pylori Ab NEGATIVE (NEGATIVE) 07/09/17 14:54 Blood Type O POSITIVE 07/09/17 09:16 Antibody Screen NEGATIVE 07/09/17 09:16 Crossmatch See Detail 07/09/17 09:16 - Physical Exam Vitals and I&O: Vital Signs Temp 97.6 F 07/11/17 05:00 Pulse 98 07/11/17 08:53 Resp 26 07/11/17 07:39 BP 179/83 07/11/17 08:53 Pulse Ox 98 07/11/17 07:39 Intake & Output 07/10/17 07/11/17 07/11/17 18:59 06:59 18:59 Intake Total 1380 Output Total 281 1100 Balance 1099 -1100 Weight (lbs) 134 lb 3.2 oz 134 lb Intake: Intake, IV Amount 1050 Dextrose 70% 500 ml Amino 950 Acids 8.5% 500 ml @ 40 mls/hr IV .Q24H [facility] Rx#: [id number] Pantoprazole 80 mg In 100 Sodium Chloride 0.9% 100 ml @ 10 mls/hr IV Q10H [facility] Rx#:[id number] Oral 0 Tube Feeding 0 TPN/PPN 330 Output: Urine 280 1100 Stool 1 Other: # Bowel Movements 1 Stool Characteristics Soft Soft Black Black Active Medications: Current Medications Acetaminophen (Tylenol) 650 mg PO Q4H PRN PRN Reason: Pain Or Fever above 101 Stop: 08/20/17 19:40 Acetaminophen/Hydrocodone Bitart ([place] 5mg/325mg) 1 tab PO Q4H PRN PRN Reason: Pain (Severe) Stop: 09/04/17 13:12 Al Hydrox/Mg Hydrox/Simethicone (Maalox) 30 ml PO Q6H PRN PRN Reason: Dyspepsia Stop: 08/20/17 19:40 Albuterol Sulfate (Albuterol 2.5mg/3ml Neb Ud) 2.5 mg HHN Q2HRT PRN PRN Reason: Shortness of Breath or Wheeze Stop: 08/20/17 19:40 Last Admin: 07/11/17 05:23 Dose: 2.5 mg Albuterol/Ipratropium (Duoneb Neb) 3 ml HHN Q6HRT ED Stop: 08/30/17 18:59 Last Admin: 07/11/17 07:39 Dose: 3 ml Amlodipine Besylate (Norvasc) 10 mg PO DAILY [facility] Stop: 09/06/17 08:59 Last Admin: 07/10/17 14:54 Dose: Not Given Clonidine HCl ([id number]-Wls-3) 1 patch TD Sa [facility] Stop: 09/07/17 12:14 Last Admin: 07/09/17 12:52 Dose: 1 patch Diltiazem HCl (Cardizem) 20 mg IVP Q4H PRN PRN Reason: HR> 120 Stop: 09/04/17 17:55 Enalaprilat (Vasotec) 1.25 mg IVP Q6HR PRN PRN Reason: SBP 160 mmhg and above Stop: 09/08/17 05:59 Last Admin: 07/11/17 08:53 Dose: 1.25 mg Guaifenesin (Robitussin) 200 mg PO Q4HR PRN PRN Reason: Cough or Congestion Stop: 08/20/17 19:40 Haloperidol Decanoate (Haldol Dec) 25 mg IM QMONTH [facility] Stop: 08/23/17 09:59 Last Admin: 06/24/17 09:10 Dose: 25 mg Hydralazine HCl (Apresoline 20 Mg/Ml) 10 mg IV Q6HR PRN PRN Reason: SBP ABOVE 160 Stop: 08/25/17 12:20 Last Admin: 07/11/17 08:08 Dose: 10 mg Pantoprazole Sodium 80 mg/ (Sodium Chloride) 100 mls @ 10 mls/hr IV Q10H ED Stop: 09/04/17 19:14 Last Admin: 07/10/17 10:03 Dose: 10 mls/hr Cefepime HCl 0.5 gm/ Dextrose 50 mls @ 100 mls/hr IV Q24H ED Stop: 09/06/17 13:59 Last Admin: 07/10/17 14:13 Dose: 100 mls/hr Dextrose/ Amino Acids/ (Electrolytes) 1,000 mls @ 40 mls/hr IV .Q24H [facility] Stop: 08/07/17 15:59 Last Admin: 07/10/17 15:08 Dose: 40 mls/hr Dextrose/Sodium Chloride (D5-0.45ns) 1,000 mls @ 20 mls/hr IV .Q24H [facility] Stop: 09/08/17 09:25 Insulin Aspart (Novolog) 0 units SUBQ Q6HR ED PRN Reason: Protocol Stop: 09/03/17 00:00 Last Admin: 07/11/17 06:25 Dose: 2 units Ipratropium [place] (Atrovent Neb 0.5mg/2.5ml) 0.5 mg IH Q2HRT PRN PRN Reason: Shortness of Breath or Wheeze Stop: 08/20/17 19:40 Last Admin: 07/11/17 05:23 Dose: 0.5 mg Lactobacillus Rhamnosus (Culturelle 15b) 1 each PO DAILY [facility] Stop: 08/30/17 08:59 Last Admin: 07/10/17 14:54 Dose: Not Given Mirtazapine (Remeron) 15 mg PO HS ED PRN Reason: Protocol Stop: 08/20/17 20:59 Last Admin: 07/10/17 20:45 Dose: Not Given Miscellaneous (Probiotic Screen) 1 ea PRN PRN PRN Reason: PROTOCOL Stop: 08/29/17 11:59 Miscellaneous (Tpn Per Pharmacy) 1 ea PRN PRN PRN Reason: PROTOCOL Stop: 09/06/17 13:12 Morphine Sulfate (Morphine) 2 mg IVP Q4HR PRN PRN Reason: Pain (Moderate) Stop: 09/04/17 19:01 Last Admin: 07/11/17 02:15 Dose: 2 mg Morphine Sulfate (Morphine) 2 mg IVP Q4H PRN PRN Reason: Pain (Severe) Stop: 09/06/17 13:06 Last Admin: 07/09/17 22:21 Dose: 2 mg Nitroglycerin (Nitrostat) 0.4 mg SL Q5MIN PRN PRN Reason: Chest Pain Stop: 08/20/17 19:40 Ondansetron HCl (Zofran Odt) 4 mg PO Q6H PRN PRN Reason: Nausea / Vomiting Stop: 09/04/17 13:12 General: weak, demented, thin, bilateral temporal wasting HEENT: NC/AT, PERRLA, thinning hair, other (ngt) Neck: Supple Lungs: rales, ronchi Cardiovascular: RRR, Normal S1, Normal S2, without murmur Abdomen: soft, non-tender, non-distended, positive bowel sound Extremities: excoriation, contracture, deformity Neurological: lethargic, unsteady, bedbound - Procedures Procedures: Procedures Procedure Code Date PARTIAL REMOVAL OF COLON 63486 06/21/17 RESECTION OF RIGHT LARGE INTESTINE, OPEN APPROACH [id number] 06/21/17 Internal Medicine Assmt/Plan - Assessment Assessment: acute dvt cecal mass s/p exploratory lap right right hemicolectomy severe anemia dm2 schizophrenia htn psychosis hypokalemia - Plan Plan: monitor h/h cardiology follow up monitor electrolytes follow up labs in am will follow senior consumer insights consultant recommendations Nutritional Asmnt/Malnutr-PDOC - Dietary Evaluation Malnutrition Findings (Please click <Entered> for more info): Nutritional Asmnt/Malnutrition Start: 06/22/17 18: 04 Text: Status: Complete Freq: Document 06/22/17 18:04 GRISELDA (Rec: 06/22/17 18:15 GRISELDA [email or web address]) Nutritional Asmnt/Malnutrition Patient General Information Nutritional Screening High Risk Consult Diagnosis left lower extremity DVT, severe anemia, CHF, HTN Pertinent Medical Hx/Surgical Hx DM, anemia, renal stones, schizophrenia Subjective Information Pt seen lying in bed, confused at time of visit. Spoke with LULÚ Seay, RN reported pt ate well, consumed 60% of breakfast this morning. Per notes, pt has EGD and colonoscopy scheduled tommorrow. Current Diet Order/ Nutrition Support pureed Pertinent Medications D5-0.9ns, novolog, remeron, kcl Pertinent Labs 06/21 Na 137, K 3.5, Cl 100, BUN 24, Cr 1.3, Glucose 186, AST 10, ALT 6, Alb 2.6 06/22 POC 383 Nutritional Hx/Data Height 5 ft Height (Calculated Centimeters) 152.4 Current Weight (lbs) 86 lb Weight (Calculated Kilograms) 39.0 Weight (Calculated Grams) 24441.9 [place] Body Weight 100 % [place] Body Weight 86 Body Mass Index (BMI) 16.7 Weight Status Underweight GI Symptoms GI Symptoms None Last BM none Difficult in: None Skin Integrity/Comment: intact Current %PO Fair (50-74%) Estimated Nutritional Goals Calories/Kcals/Kg 25-30 based on IBW 45kg Kcals Calculated 8890-2832 Protein g/k-1.2 Protein Calculated 45-54 Fluid: ml 1125-1350ml (1ml/kcal) Nutritional Problem 1. Problem Problem altered nutrition related lab values Etiology hx of DM Signs/Symptoms: Glucose 186, POC 383 Malnutrition Alert Protein-Calorie Malnutrition N/A Is there a minimum of two criteria No selected? Query Text:Check all the applicable criteria. A minimum of two criteria are recommended for diagnosis of either severe or non-severe malnutrition. Intervention/Recommendation Comments 1. Recommend CCHO, low sodium diet for optimal glycemic and BP control. RN notified. 2. Monitor PO intake, wt, labs and skin integrity 3. F/U as high risk in 2-3 days, 06/24-06/25 Expected Outcomes/Goals Expected Outcomes/Goals 1. PO intake to meet at least 75% of nutritional needs. 2. Wt stability, skin to remain intact, labs to improve
--- NOTE | 2017-07-11 09:25 | General Progress Note ---
Subjective - Review of Systems Service Date: 07/11/17 Objective - Results Result Diagrams: 07/11/17 04:10 07/11/17 05:25 Recent Labs: Laboratory Last Values WBC 9.9 Th/cmm (4.8-10.8) 07/11/17 04:10 RBC 3.21 Mil/cmm (3.80-5.20) L 07/11/17 04:10 Hgb 9.2 gm/dL (12-16) L 07/11/17 04:10 Hct 26.7 % (41.0-60) L D 07/11/17 04:10 MCV 83.2 fl (81-100) 07/11/17 04:10 MCH 28.7 pg (27.0-31.0) 07/11/17 04:10 MCHC Differential 34.5 pg (28.0-36.0) 07/11/17 04:10 RDW 16.2 % (11.5-20.0) 07/11/17 04:10 Plt Count 255 Th/cmm (150-400) 07/11/17 04:10 MPV 7.5 fl 07/11/17 04:10 Neutrophils % 82.5 % (40.0-80.0) H 07/11/17 04:10 Band Neutrophils % 2 % (0-10) 07/04/17 04:30 Lymphocytes % 8.3 % (20.0-50.0) L 07/11/17 04:10 Monocytes % 5.5 % (2.0-10.0) 07/11/17 04:10 Eosinophils % 0.3 % (0.0-5.0) 07/11/17 04:10 Basophils % 3.4 % (0.0-2.0) H 07/11/17 04:10 Neutrophils (Manual) 80 % (40-80) 07/04/17 04:30 Lymphocytes 12 % (20-50) L 07/04/17 04:30 Monocytes 2 % (2-10) 07/04/17 04:30 Eosinophils 4 % (0-5) 07/04/17 04:30 Hypochromia 1+ 07/04/17 04:30 Platelet Estimate ADEQUATE (NORMAL) 07/04/17 04:30 Polychromasia 1+ 07/04/17 04:30 Schistocytes 1+ 07/04/17 04:30 PT 12.0 SECONDS (9.5-11.5) H 07/08/17 04:15 INR 1.14 (0.5-1.4) 07/08/17 04:15 PTT (Actin FS) 25.0 SECONDS (26.0-38.0) L 07/08/17 04:15 D-Dimer 3600 ng/mL (100-400) H 06/21/17 18:20 Specimen Source Arterial 06/28/17 10:55 Sample Site Right Radial 06/28/17 10:55 pH 7.44 (7.35-7.45) 06/28/17 10:55 pCO2 36.0 mmHg (35.0-45.0) 06/28/17 10:55 pO2 100.0 mmHg (80.0-100.0) 06/28/17 10:55 HCO3 25.4 mEq/L (20.0-26.0) 06/28/17 10:55 Base Excess 0.6 mEq/L (-3.0-3.0) 06/28/17 10:55 O2 Saturation 98.0 % (92.0-100.0) 06/28/17 10:55 Rashid Test Positive 06/28/17 10:55 Vent Rate N/A 06/28/17 10:55 Inspired O2 28 06/28/17 10:55 Tidal Volume N/A 06/28/17 10:55 PEEP N/A 06/28/17 10:55 Pressure (ins/psv/peep) N/A 06/28/17 10:55 Critical Value DM 06/28/17 10:55 Sodium 136 mEq/L (136-145) 07/11/17 05:25 Potassium 3.6 mEq/L (3.5-5.1) 07/11/17 05:25 Chloride 105 mEq/L (98-107) 07/11/17 05:25 Carbon Dioxide 24.7 mEq/L (21.0-31.0) 07/11/17 05:25 Anion Gap 9.9 (7.0-16.0) 07/11/17 05:25 BUN 15 mg/dL (7-25) 07/11/17 05:25 Creatinine 1.7 mg/dL (0.6-1.2) H 07/11/17 05:25 Est GFR ( Amer) TNP 07/11/17 05:25 Est GFR (Non-Af Amer) TNP 07/11/17 05:25 BUN/Creatinine Ratio 8.8 07/11/17 05:25 Glucose 287 mg/dL (70-105) H 07/11/17 05:25 POC Glucose 228 MG/DL (70 - 105) H 07/11/17 05:20 Hemoglobin A1c % 11.7 % (4.0-6.0) H 06/21/17 18:20 Calcium 8.7 mg/dL (8.6-10.3) 07/11/17 05:25 Phosphorus 2.5 mg/dL (2.5-5.0) 07/11/17 05:25 Magnesium 2.3 mg/dL (1.9-2.7) 07/11/17 05:25 Iron 19 ug/dL (27-139) L 06/22/17 05:20 TIBC 176 ug/dL (250-450) L 06/22/17 05:20 Iron Saturation 11 % (15-55) L 06/22/17 05:20 Unsaturated IBC 157 ug/dL (118-369) 06/22/17 05:20 Ferritin 164 ng/mL (15-150) H 06/22/17 05:20 Total Bilirubin 0.6 mg/dL (0.3-1.0) 07/09/17 04:30 AST 31 U/L (13-39) 07/09/17 04:30 ALT 18 U/L (7-52) 07/09/17 04:30 Alkaline Phosphatase 211 U/L (34-104) H 07/09/17 04:30 Ammonia 38 umol/L (16-53) 07/08/17 04:15 Creatine Kinase 39 U/L (30-223) 06/21/17 18:20 Troponin I 0.01 ng/mL (0.01-0.05) 06/21/17 18:20 B-Natriuretic Peptide 108.0 pg/mL (5.0-100.0) H 07/09/17 04:30 Total Protein 5.0 gm/dL (6.0-8.3) L 07/09/17 04:30 Albumin 1.9 gm/dL (3.7-5.3) L 07/09/17 04:30 Globulin 3.1 gm/dL 07/09/17 04:30 Albumin/Globulin Ratio 0.6 (1.0-1.8) L 07/09/17 04:30 Prealbumin 12 mg/dL (9-32) 07/09/17 04:30 Triglycerides 57 mg/dL (<150) 07/09/17 04:30 Cholesterol 102 mg/dL (<200) 07/11/17 04:22 LDL Cholesterol Direct 65 mg/dL (75-193) L 06/21/17 18:20 HDL Cholesterol 43 mg/dL (23-92) 06/21/17 18:20 Vitamin B12 1797 pg/mL (232-1245) H 07/02/17 03:41 Folic Acid 10.3 ng/mL (>3.0) 07/02/17 03:41 Helicobacter pylori Ab NEGATIVE (NEGATIVE) 07/09/17 14:54 Blood Type O POSITIVE 07/09/17 09:16 Antibody Screen NEGATIVE 07/09/17 09:16 Crossmatch See Detail 07/09/17 09:16 - Physical Exam Vitals and I&O: Vital Signs Temp 97.8 F 07/11/17 08:00 Pulse 98 07/11/17 08:53 Resp 20 07/11/17 08:00 BP 179/83 07/11/17 08:53 Pulse Ox 96 07/11/17 08:00 Intake & Output 07/10/17 07/11/17 07/11/17 18:59 06:59 18:59 Intake Total 1380 Output Total 281 1100 Balance 1099 -1100 Weight (lbs) 60.872 kg 60.781 kg Intake: Intake, IV Amount 1050 Dextrose 70% 500 ml Amino 950 Acids 8.5% 500 ml @ 40 mls/hr IV .Q24H ED Rx#: [id number] Pantoprazole 80 mg In 100 Sodium Chloride 0.9% 100 ml @ 10 mls/hr IV Q10H ED Rx#:[id number] Oral 0 Tube Feeding 0 TPN/PPN 330 Output: Urine 280 1100 Stool 1 Other: # Bowel Movements 1 Stool Characteristics Soft Soft Black Black Active Medications: Current Medications Acetaminophen (Tylenol) 650 mg PO Q4H PRN PRN Reason: Pain Or Fever above 101 Stop: 08/20/17 19:40 Acetaminophen/Hydrocodone Bitart ([place] 5mg/325mg) 1 tab PO Q4H PRN PRN Reason: Pain (Severe) Stop: 09/04/17 13:12 Al Hydrox/Mg Hydrox/Simethicone (Maalox) 30 ml PO Q6H PRN PRN Reason: Dyspepsia Stop: 08/20/17 19:40 Albuterol Sulfate (Albuterol 2.5mg/3ml Neb Ud) 2.5 mg HHN Q2HRT PRN PRN Reason: Shortness of Breath or Wheeze Stop: 08/20/17 19:40 Last Admin: 07/11/17 05:23 Dose: 2.5 mg Albuterol/Ipratropium (Duoneb Neb) 3 ml HHN Q6HRT ED Stop: 08/30/17 18:59 Last Admin: 07/11/17 07:39 Dose: 3 ml Amlodipine Besylate (Norvasc) 10 mg PO DAILY [facility] Stop: 09/06/17 08:59 Last Admin: 07/10/17 14:54 Dose: Not Given Clonidine HCl (Vxyzwmqz-Xsi-2) 1 patch TD Sa [facility] Stop: 09/07/17 12:14 Last Admin: 07/09/17 12:52 Dose: 1 patch Diltiazem HCl (Cardizem) 20 mg IVP Q4H PRN PRN Reason: HR> 120 Stop: 09/04/17 17:55 Enalaprilat (Vasotec) 1.25 mg IVP Q6HR PRN PRN Reason: SBP 160 mmhg and above Stop: 09/08/17 05:59 Last Admin: 07/11/17 08:53 Dose: 1.25 mg Guaifenesin (Robitussin) 200 mg PO Q4HR PRN PRN Reason: Cough or Congestion Stop: 08/20/17 19:40 Haloperidol Decanoate (Haldol Dec) 25 mg IM QMONTH [facility] Stop: 08/23/17 09:59 Last Admin: 06/24/17 09:10 Dose: 25 mg Hydralazine HCl (Apresoline 20 Mg/Ml) 10 mg IV Q6HR PRN PRN Reason: SBP ABOVE 160 Stop: 08/25/17 12:20 Last Admin: 07/11/17 08:08 Dose: 10 mg Pantoprazole Sodium 80 mg/ (Sodium Chloride) 100 mls @ 10 mls/hr IV Q10H [facility] Stop: 09/04/17 19:14 Last Admin: 07/10/17 10:03 Dose: 10 mls/hr Cefepime HCl 0.5 gm/ Dextrose 50 mls @ 100 mls/hr IV Q24H [facility] Stop: 09/06/17 13:59 Last Admin: 07/10/17 14:13 Dose: 100 mls/hr Dextrose/ Amino Acids/ (Electrolytes) 1,000 mls @ 40 mls/hr IV .Q24H [facility] Stop: 08/07/17 15:59 Last Admin: 07/10/17 15:08 Dose: 40 mls/hr Dextrose/Sodium Chloride (D5-0.45ns) 1,000 mls @ 20 mls/hr IV .Q24H [facility] Stop: 09/08/17 09:25 Insulin Aspart (Novolog) 0 units SUBQ Q6HR ED PRN Reason: Protocol Stop: 09/03/17 00:00 Last Admin: 07/11/17 06:25 Dose: 2 units Ipratropium [place] (Atrovent Neb 0.5mg/2.5ml) 0.5 mg IH Q2HRT PRN PRN Reason: Shortness of Breath or Wheeze Stop: 08/20/17 19:40 Last Admin: 07/11/17 05:23 Dose: 0.5 mg Lactobacillus Rhamnosus (Culturelle 15b) 1 each PO DAILY [facility] Stop: 08/30/17 08:59 Last Admin: 07/10/17 14:54 Dose: Not Given Mirtazapine (Remeron) 15 mg PO HS [facility] PRN Reason: Protocol Stop: 08/20/17 20:59 Last Admin: 07/10/17 20:45 Dose: Not Given Miscellaneous (Probiotic Screen) 1 ea PRN PRN PRN Reason: PROTOCOL Stop: 08/29/17 11:59 Miscellaneous (Tpn Per Pharmacy) 1 ea MC PRN PRN PRN Reason: PROTOCOL Stop: 09/06/17 13:12 Morphine Sulfate (Morphine) 2 mg IVP Q4HR PRN PRN Reason: Pain (Moderate) Stop: 09/04/17 19:01 Last Admin: 07/11/17 02:15 Dose: 2 mg Morphine Sulfate (Morphine) 2 mg IVP Q4H PRN PRN Reason: Pain (Severe) Stop: 09/06/17 13:06 Last Admin: 07/09/17 22:21 Dose: 2 mg Nitroglycerin (Nitrostat) 0.4 mg SL Q5MIN PRN PRN Reason: Chest Pain Stop: 08/20/17 19:40 Ondansetron HCl (Zofran Odt) 4 mg PO Q6H PRN PRN Reason: Nausea / Vomiting Stop: 09/04/17 13:12 General: Other HEENT: Atraumatic Neck: Supple Cardiovascular: Regular rate Abdomen: Bowel sounds, Soft, Other (dressing in midline no bleeding) Extremities: Other (right arm picc) - Procedures Procedures: Procedures Procedure Code Date PARTIAL REMOVAL OF COLON 29555 06/21/17 RESECTION OF RIGHT LARGE INTESTINE, OPEN APPROACH [id number] 06/21/17 Assessment/Plan - Assessment Assessment: * DVT * ANEMIA secondary to GI bleeding * CKD * 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 No Xarelto was given confirmed with pharmacy. monitor cbc Path. discussed with pathologist. no invasion. no transfusion today Nutritional Asmnt/Malnutr-PDOC - Dietary Evaluation Malnutrition Findings (Please click <Entered> for more info): Nutritional Asmnt/Malnutrition Start: 06/22/17 18: 04 Text: Status: Complete Freq: Document 06/22/17 18:04 LCHENG (Rec: 06/22/17 18:15 [email or web address] [email or web address]) Nutritional Asmnt/Malnutrition Patient General Information Nutritional Screening High Risk Consult Diagnosis left lower extremity DVT, severe anemia, CHF, HTN Pertinent Medical Hx/Surgical Hx DM, anemia, renal stones, schizophrenia Subjective Information Pt seen lying in bed, confused at time of visit. Spoke with LULÚ Seay RN reported pt ate well, consumed 60% of breakfast this morning. Per notes, pt has EGD and colonoscopy scheduled tommorrow. Current Diet Order/ Nutrition Support pureed Pertinent Medications D5-0.9ns, novolog, remeron, kcl Pertinent Labs 06/21 Na 137, K 3.5, Cl 100, BUN 24, Cr 1.3, Glucose 186, AST 10, ALT 6, Alb 2.6 1/24 POC 383 Nutritional Hx/Data Height 1.52 m Height (Calculated Centimeters) 152.4 Current Weight (lbs) 39.009 kg Weight (Calculated Kilograms) 39.0 Weight (Calculated Grams) 37565.9 [place] Body Weight 100 % [place] Body Weight 86 Body Mass Index (BMI) 16.7 Weight Status Underweight GI Symptoms GI Symptoms None Last BM none Difficult in: None Skin Integrity/Comment: intact Current %PO Fair (50-74%) Estimated Nutritional Goals Calories/Kcals/Kg 25-30 based on IBW 45kg Kcals Calculated 0389-8840 Protein g/k-1.2 Protein Calculated 45-54 Fluid: ml 1125-1350ml (1ml/kcal) Nutritional Problem 1. Problem Problem altered nutrition related lab values Etiology hx of DM Signs/Symptoms: Glucose 186, POC 383 Malnutrition Alert Protein-Calorie Malnutrition N/A Is there a minimum of two criteria No selected? Query Text:Check all the applicable criteria. A minimum of two criteria are recommended for diagnosis of either severe or non-severe malnutrition. Intervention/Recommendation Comments 1. Recommend CCHO, low sodium diet for optimal glycemic and BP control. RN notified. 2. Monitor PO intake, wt, labs and skin integrity 3. F/U as high risk in 2-3 days, 06/24-06/25 Expected Outcomes/Goals Expected Outcomes/Goals 1. PO intake to meet at least 75% of nutritional needs. 2. Wt stability, skin to remain intact, labs to improve
[2017-07-11] MEDS: Pantoprazole 80 MG in Sodium Chloride 0.9% 100 ML IV SCH (12:28)
[2017-07-11] MEDS: Labetalol 5 mg/mL 20 mL Vial IVP PRN (14:12)
[2017-07-11] MEDS: Nitroglycerin 50mg/D5W Premix 50 MG/250 ML INFUS..BTL IV PRN (15:52)
[2017-07-11] MEDS: TPN 8.5%-70% CUSTOM IV SCH (16:02)
[2017-07-11] MEDS: Lactobacillus Rhamnosus GG 15 Billion CFU CAP.SPRINK PO SCH (16:19)
[2017-07-11] MEDS: D5-0.45NS 1,000 ML IV SCH (17:32)
[2017-07-12] MEDS: INSULIN ASPART, RECOMBINANT 100 UNITS/ML SUBQ SCH ×4 (00:06→18:02)
[2017-07-12] MEDS: Albuterol/Ipratropium Neb 3 ML AERS HHN SCH ×4 (00:49→19:55)
[2017-07-12] MEDS: Nitroglycerin 50mg/D5W Premix 50 MG/250 ML INFUS..BTL IV PRN ×5 (01:23→19:49)
[2017-07-12] MEDS: Labetalol 5 mg/mL 20 mL Vial IVP PRN (03:38)
[2017-07-12 05:06] LABS: HEMOGLOBIN 8.2 gm/dL (12-16); LYMPHOCYTE ABSOLUTE 0.8 Th/cmm (1.5-3.0); NEUTROPHILE ABSOLUTE 6.3 Th/cmm (1.8-8.0); RED CELL DISTRIBUTION WIDTH 15.8 % (11.5-20.0)
[2017-07-12 05:13] LABS: % BASOPHILS 0.4 % (0.0-2.0); % EOSINOPHILS 0.6 % (0.0-5.0); % LYMPHOCYTES 10.7 % (20.0-50.0); % MONOCYTES 9.1 % (2.0-10.0); % NEUTROPHILS 79.2 % (40.0-80.0); HEMATOCRIT 24.3 % (41.0-60); MEAN CELL VOLUME 84.6 fl (81-100); MEAN CORPUSCULAR HEMOGLOBIN 28.6 pg (27.0-31.0); MEAN CORPUSCULAR HGB CONC 33.7 pg (28.0-36.0); MEAN PLATELET VOLUME 7.8 fl; MONOCYTE ABSOLUTE 0.7 Th/cmm (0.3-1.0); PLATELET COUNT 236 Th/cmm (150-400); RED BLOOD COUNT 2.88 Mil/cmm (3.80-5.20)
[2017-07-12 05:18] LABS: ANION GAP 8.7 (7.0-16.0); BUN - UREA NITROGEN 17 mg/dL (7-25); CALCIUM SERUM 8.2 mg/dL (8.6-10.3); CARBON DIOXIDE 26.8 mEq/L (21.0-31.0); CHLORIDE 105 mEq/L (98-107); CREATININE - SERUM 1.2 mg/dL (0.6-1.2); GLUCOSE 245 mg/dL (70-105); PHOSPHOROUS 2.6 mg/dL (2.5-5.0); POTASSIUM SERUM 3.5 mEq/L (3.5-5.1); SODIUM SERUM 137 mEq/L (136-145)
[2017-07-12 05:22] LABS: WHITE BLOOD COUNT 7.8 Th/cmm (4.8-10.8)
[2017-07-12] MEDS: Morphine Sulfate 2 mg/mL 1mL Syr IVP PRN ×2 (08:26→18:52)
--- NOTE | 2017-07-12 09:41 | General Progress Note ---
Subjective - Review of Systems Service Date: 07/12/17 Events since last encounter: 15 days post right hemicolectomy has no BM few days, abdomen distended Fleet enema and KUB ordered Objective - Results Result Diagrams: 07/12/17 04:20 07/12/17 04:20 Recent Labs: Laboratory Last Values WBC 7.8 Th/cmm (4.8-10.8) D 07/12/17 04:20 RBC 2.88 Mil/cmm (3.80-5.20) L 07/12/17 04:20 Hgb 8.2 gm/dL (12-16) L 07/12/17 04:20 Hct 24.3 % (41.0-60) L 07/12/17 04:20 MCV 84.6 fl (81-100) 07/12/17 04:20 MCH 28.6 pg (27.0-31.0) 07/12/17 04:20 MCHC Differential 33.7 pg (28.0-36.0) 07/12/17 04:20 RDW 15.8 % (11.5-20.0) 07/12/17 04:20 Plt Count 236 Th/cmm (150-400) 07/12/17 04:20 MPV 7.8 fl 07/12/17 04:20 Neutrophils % 79.2 % (40.0-80.0) 07/12/17 04:20 Band Neutrophils % 2 % (0-10) 07/04/17 04:30 Lymphocytes % 10.7 % (20.0-50.0) L 07/12/17 04:20 Monocytes % 9.1 % (2.0-10.0) 07/12/17 04:20 Eosinophils % 0.6 % (0.0-5.0) 07/12/17 04:20 Basophils % 0.4 % (0.0-2.0) 07/12/17 04:20 Neutrophils (Manual) 80 % (40-80) 07/04/17 04:30 Lymphocytes 12 % (20-50) L 07/04/17 04:30 Monocytes 2 % (2-10) 07/04/17 04:30 Eosinophils 4 % (0-5) 07/04/17 04:30 Hypochromia 1+ 07/04/17 04:30 Platelet Estimate ADEQUATE (NORMAL) 07/04/17 04:30 Polychromasia 1+ 07/04/17 04:30 Schistocytes 1+ 07/04/17 04:30 PT 12.0 SECONDS (9.5-11.5) H 07/08/17 04:15 INR 1.14 (0.5-1.4) 07/08/17 04:15 PTT (Actin FS) 25.0 SECONDS (26.0-38.0) L 07/08/17 04:15 D-Dimer 3600 ng/mL (100-400) H 06/21/17 18:20 Specimen Source Arterial 06/28/17 10:55 Sample Site Right Radial 06/28/17 10:55 pH 7.44 (7.35-7.45) 06/28/17 10:55 pCO2 36.0 mmHg (35.0-45.0) 06/28/17 10:55 pO2 100.0 mmHg (80.0-100.0) 06/28/17 10:55 HCO3 25.4 mEq/L (20.0-26.0) 06/28/17 10:55 Base Excess 0.6 mEq/L (-3.0-3.0) 06/28/17 10:55 O2 Saturation 98.0 % (92.0-100.0) 06/28/17 10:55 Rashid Test Positive 06/28/17 10:55 Vent Rate N/A 06/28/17 10:55 Inspired O2 28 06/28/17 10:55 Tidal Volume N/A 06/28/17 10:55 PEEP N/A 06/28/17 10:55 Pressure (ins/psv/peep) N/A 06/28/17 10:55 Critical Value DM 06/28/17 10:55 Sodium 137 mEq/L (136-145) 07/12/17 04:20 Potassium 3.5 mEq/L (3.5-5.1) 07/12/17 04:20 Chloride 105 mEq/L (98-107) 07/12/17 04:20 Carbon Dioxide 26.8 mEq/L (21.0-31.0) 07/12/17 04:20 Anion Gap 8.7 (7.0-16.0) 07/12/17 04:20 BUN 17 mg/dL (7-25) 07/12/17 04:20 Creatinine 1.2 mg/dL (0.6-1.2) 07/12/17 04:20 Est GFR ( Amer) TNP 07/12/17 04:20 Est GFR (Non-Af Amer) TNP 07/12/17 04:20 BUN/Creatinine Ratio 14.2 07/12/17 04:20 Glucose 245 mg/dL (70-105) H 07/12/17 04:20 POC Glucose 250 MG/DL (70 - 105) H 07/12/17 05:07 Hemoglobin A1c % 11.7 % (4.0-6.0) H 06/21/17 18:20 Calcium 8.2 mg/dL (8.6-10.3) L 07/12/17 04:20 Phosphorus 2.6 mg/dL (2.5-5.0) 07/12/17 04:20 Magnesium 2.0 mg/dL (1.9-2.7) 07/12/17 04:20 Iron 19 ug/dL (27-139) L 06/22/17 05:20 TIBC 176 ug/dL (250-450) L 06/22/17 05:20 Iron Saturation 11 % (15-55) L 06/22/17 05:20 Unsaturated IBC 157 ug/dL (118-369) 06/22/17 05:20 Ferritin 164 ng/mL (15-150) H 06/22/17 05:20 Total Bilirubin 0.6 mg/dL (0.3-1.0) 07/09/17 04:30 AST 31 U/L (13-39) 07/09/17 04:30 ALT 18 U/L (7-52) 07/09/17 04:30 Alkaline Phosphatase 211 U/L (34-104) H 07/09/17 04:30 Ammonia 38 umol/L (16-53) 07/08/17 04:15 Creatine Kinase 39 U/L (30-223) 06/21/17 18:20 Troponin I 0.01 ng/mL (0.01-0.05) 06/21/17 18:20 B-Natriuretic Peptide 108.0 pg/mL (5.0-100.0) H 07/09/17 04:30 Total Protein 5.0 gm/dL (6.0-8.3) L 07/09/17 04:30 Albumin 1.9 gm/dL (3.7-5.3) L 07/09/17 04:30 Globulin 3.1 gm/dL 07/09/17 04:30 Albumin/Globulin Ratio 0.6 (1.0-1.8) L 07/09/17 04:30 Prealbumin 12 mg/dL (9-32) 07/09/17 04:30 Triglycerides 57 mg/dL (<150) 07/09/17 04:30 Cholesterol 102 mg/dL (<200) 07/11/17 04:22 LDL Cholesterol Direct 65 mg/dL (75-193) L 06/21/17 18:20 HDL Cholesterol 43 mg/dL (23-92) 06/21/17 18:20 Vitamin B12 1797 pg/mL (232-1245) H 07/02/17 03:41 Folic Acid 10.3 ng/mL (>3.0) 07/02/17 03:41 Helicobacter pylori Ab NEGATIVE (NEGATIVE) 07/09/17 14:54 Blood Type O POSITIVE 07/09/17 09:16 Antibody Screen NEGATIVE 07/09/17 09:16 Crossmatch See Detail 07/09/17 09:16 - Physical Exam Vitals and I&O: Vital Signs Temp 98.3 F 07/12/17 07:00 Pulse 95 07/12/17 09:05 Resp 16 07/12/17 08:00 BP 166/83 07/12/17 09:05 Pulse Ox 96 07/12/17 08:00 Intake & Output 07/11/17 07/12/17 07/12/17 18:59 06:59 18:59 Intake Total 250 535.000 Output Total 1100 600 Balance -850 535.000 -600 Weight (lbs) 63.004 kg 63.004 kg Intake: Intake, IV Amount 535.000 Nitroglycerin 50mg/D5W 535.000 Premix 50 mg In 250 ml @ Per Protocol IV TITR PRN Rx#:[id number] Oral 0 TPN/PPN 250 Output: Urine 1100 600 Stool 0 Other: Stool Characteristics Soft Black Active Medications: Current Medications Acetaminophen (Tylenol) 650 mg PO Q4H PRN PRN Reason: Pain Or Fever above 101 Stop: 08/20/17 19:40 Acetaminophen/Hydrocodone Bitart ([place] 5mg/325mg) 1 tab PO Q4H PRN PRN Reason: Pain (Severe) Stop: 09/04/17 13:12 Al Hydrox/Mg Hydrox/Simethicone (Maalox) 30 ml PO Q6H PRN PRN Reason: Dyspepsia Stop: 08/20/17 19:40 Albuterol Sulfate (Albuterol 2.5mg/3ml Neb Ud) 2.5 mg HHN Q2HRT PRN PRN Reason: Shortness of Breath or Wheeze Stop: 08/20/17 19:40 Last Admin: 07/11/17 05:23 Dose: 2.5 mg Albuterol/Ipratropium (Duoneb Neb) 3 ml HHN Q6HRT [facility] Stop: 08/30/17 18:59 Last Admin: 07/12/17 07:50 Dose: 3 ml Amlodipine Besylate (Norvasc) 10 mg PO DAILY [facility] Stop: 09/06/17 08:59 Last Admin: 07/11/17 16:18 Dose: Not Given Clonidine HCl ([id number]) 1 patch TD Sa [facility] Stop: 09/07/17 12:14 Last Admin: 07/09/17 12:52 Dose: 1 patch Diltiazem HCl (Cardizem) 20 mg IVP Q4H PRN PRN Reason: HR> 120 Stop: 09/04/17 17:55 Enalaprilat (Vasotec) 1.25 mg IVP Q6HR PRN PRN Reason: SBP 160 mmhg and above Stop: 09/08/17 05:59 Last Admin: 07/12/17 01:32 Dose: 1.25 mg Guaifenesin (Robitussin) 200 mg PO Q4HR PRN PRN Reason: Cough or Congestion Stop: 08/20/17 19:40 Haloperidol Decanoate (Haldol Dec) 25 mg IM QMONTH [facility] Stop: 08/23/17 09:59 Last Admin: 06/24/17 09:10 Dose: 25 mg Hydralazine HCl (Apresoline 20 Mg/Ml) 10 mg IV Q6HR PRN PRN Reason: SBP ABOVE 160 Stop: 08/25/17 12:20 Last Admin: 07/12/17 09:05 Dose: 10 mg Cefepime HCl 0.5 gm/ Dextrose 50 mls @ 100 mls/hr IV Q24H [facility] Stop: 09/06/17 13:59 Last Admin: 07/11/17 14:12 Dose: 100 mls/hr Dextrose/Sodium Chloride (D5-0.45ns) 1,000 mls @ 20 mls/hr IV .Q24H [facility] Stop: 09/08/17 09:25 Last Admin: 07/11/17 17:32 Dose: 20 mls/hr Dextrose/ Amino Acids/ (Electrolytes) 1,200 mls @ 50 mls/hr IV .Q24H [facility] Stop: 08/09/17 15:59 Last Admin: 07/11/17 16:02 Dose: 50 mls/hr Nitroglycerin/Dextrose (Nitroglycerin 50mg/Dextrose 5% Premix) 50 mg in 250 mls @ 0 mls/hr IV TITR PRN; Protocol; Per Protocol PRN Reason: Keep SBP 150 Stop: 09/09/17 14:32 Last Titration: 07/12/17 06:15 Dose: 8 mg/hr, 40 mls/hr Insulin Aspart (Novolog) 0 units SUBQ Q6HR ED PRN Reason: Protocol Stop: 09/03/17 00:00 Last Admin: 07/12/17 05:44 Dose: 2 units Ipratropium [place] (Atrovent Neb 0.5mg/2.5ml) 0.5 mg IH Q2HRT PRN PRN Reason: Shortness of Breath or Wheeze Stop: 08/20/17 19:40 Last Admin: 07/11/17 05:23 Dose: 0.5 mg Labetalol HCl (Trandate) 10 mg IVP Q4HR PRN PRN Reason: SBP ABOVE 160 Stop: 09/09/17 13:16 Last Admin: 07/12/17 03:38 Dose: 10 mg Lactobacillus Rhamnosus (Culturelle 15b) 1 each PO DAILY [facility] Stop: 08/30/17 08:59 Last Admin: 07/11/17 16:19 Dose: Not Given Mirtazapine (Remeron) 15 mg PO HS ED PRN Reason: Protocol Stop: 08/20/17 20:59 Last Admin: 07/11/17 21:18 Dose: Not Given Miscellaneous (Probiotic Screen) 1 ea MC PRN PRN PRN Reason: PROTOCOL Stop: 08/29/17 11:59 Miscellaneous (Tpn Per Pharmacy) 1 ea MC PRN PRN PRN Reason: PROTOCOL Stop: 09/06/17 13:12 Morphine Sulfate (Morphine) 2 mg IVP Q4HR PRN PRN Reason: Pain (Moderate) Stop: 09/04/17 19:01 Last Admin: 07/12/17 08:26 Dose: 2 mg Morphine Sulfate (Morphine) 2 mg IVP Q4H PRN PRN Reason: Pain (Severe) Stop: 09/06/17 13:06 Last Admin: 07/09/17 22:21 Dose: 2 mg Nitroglycerin (Nitrostat) 0.4 mg SL Q5MIN PRN PRN Reason: Chest Pain Stop: 08/20/17 19:40 Ondansetron HCl (Zofran Odt) 4 mg PO Q6H PRN PRN Reason: Nausea / Vomiting Stop: 09/04/17 13:12 Pantoprazole Sodium (Protonix) 40 mg IVP BID ED Stop: 09/09/17 16:59 Last Admin: 07/12/17 09:05 Dose: 40 mg Sodium Phosphate (Fleet Enema) 135 ml RC PRN PRN PRN Reason: Constipation Stop: 09/10/17 09:36 General: Other HEENT: Atraumatic Neck: Supple Cardiovascular: Regular rate Abdomen: Bowel sounds, Soft, Other (dressing in midline no bleeding) Extremities: Other (right arm picc) - Procedures Procedures: Procedures Procedure Code Date PARTIAL REMOVAL OF COLON 71344 06/21/17 RESECTION OF RIGHT LARGE INTESTINE, OPEN APPROACH [id number] 06/21/17 Nutritional Asmnt/Malnutr-PDOC - Dietary Evaluation Malnutrition Findings (Please click <Entered> for more info): Nutritional Asmnt/Malnutrition Start: 06/22/17 18: 04 Text: Status: Complete Freq: Document 06/22/17 18:04 GRISELDA (Rec: 06/22/17 18:15 [email or web address] [email or web address]) Nutritional Asmnt/Malnutrition Patient General Information Nutritional Screening High Risk Consult Diagnosis left lower extremity DVT, severe anemia, CHF, HTN Pertinent Medical Hx/Surgical Hx DM, anemia, renal stones, schizophrenia Subjective Information Pt seen lying in bed, confused at time of visit. Spoke with LULÚ Seay, RN reported pt ate well, consumed 60% of breakfast this morning. Per notes, pt has EGD and colonoscopy scheduled tommorrow. Current Diet Order/ Nutrition Support pureed Pertinent Medications D5-0.9ns, novolog, remeron, kcl Pertinent Labs 06/21 Na 137, K 3.5, Cl 100, BUN 24, Cr 1.3, Glucose 186, AST 10, ALT 6, Alb 2.6 06/22 POC 383 Nutritional Hx/Data Height 1.52 m Height (Calculated Centimeters) 152.4 Current Weight (lbs) 39.009 kg Weight (Calculated Kilograms) 39.0 Weight (Calculated Grams) 74926.9 [place] Body Weight 100 % [place] Body Weight 86 Body Mass Index (BMI) 16.7 Weight Status Underweight GI Symptoms GI Symptoms None Last BM none Difficult in: None Skin Integrity/Comment: intact Current %PO Fair (50-74%) Estimated Nutritional Goals Calories/Kcals/Kg 25-30 based on IBW 45kg Kcals Calculated 4838-4303 Protein g/k-1.2 Protein Calculated 45-54 Fluid: ml 1125-1350ml (1ml/kcal) Nutritional Problem 1. Problem Problem altered nutrition related lab values Etiology hx of DM Signs/Symptoms: Glucose 186, POC 383 Malnutrition Alert Protein-Calorie Malnutrition N/A Is there a minimum of two criteria No selected? Query Text:Check all the applicable criteria. A minimum of two criteria are recommended for diagnosis of either severe or non-severe malnutrition. Intervention/Recommendation Comments 1. Recommend CCHO, low sodium diet for optimal glycemic and BP control. RN notified. 2. Monitor PO intake, wt, labs and skin integrity 3. F/U as high risk in 2-3 days, 06/24-06/25 Expected Outcomes/Goals Expected Outcomes/Goals 1. PO intake to meet at least 75% of nutritional needs. 2. Wt stability, skin to remain intact, labs to improve
[2017-07-12] MEDS: Lactobacillus Rhamnosus GG 15 Billion CFU CAP.SPRINK PO SCH (11:29)
--- NOTE | 2017-07-12 12:10 | Internal Medicine Prog Note ---
Internal Medicine Subjective - Subjective Service Date: 07/12/17 Patient is:: asleep, non-verbal (ngt), non-interactive Patient Complaints of:: congestion Per staff patient has:: no adverse event, no episodes of fall, tolerating meds Internal Medicine Objective - Results Result Diagrams: 07/12/17 04:20 07/12/17 04:20 Recent Labs: Laboratory Last Values WBC 7.8 Th/cmm (4.8-10.8) D 07/12/17 04:20 RBC 2.88 Mil/cmm (3.80-5.20) L 07/12/17 04:20 Hgb 8.2 gm/dL (12-16) L 07/12/17 04:20 Hct 24.3 % (41.0-60) L 07/12/17 04:20 MCV 84.6 fl (81-100) 07/12/17 04:20 MCH 28.6 pg (27.0-31.0) 07/12/17 04:20 MCHC Differential 33.7 pg (28.0-36.0) 07/12/17 04:20 RDW 15.8 % (11.5-20.0) 07/12/17 04:20 Plt Count 236 Th/cmm (150-400) 07/12/17 04:20 MPV 7.8 fl 07/12/17 04:20 Neutrophils % 79.2 % (40.0-80.0) 07/12/17 04:20 Band Neutrophils % 2 % (0-10) 07/04/17 04:30 Lymphocytes % 10.7 % (20.0-50.0) L 07/12/17 04:20 Monocytes % 9.1 % (2.0-10.0) 07/12/17 04:20 Eosinophils % 0.6 % (0.0-5.0) 07/12/17 04:20 Basophils % 0.4 % (0.0-2.0) 07/12/17 04:20 Neutrophils (Manual) 80 % (40-80) 07/04/17 04:30 Lymphocytes 12 % (20-50) L 07/04/17 04:30 Monocytes 2 % (2-10) 07/04/17 04:30 Eosinophils 4 % (0-5) 07/04/17 04:30 Hypochromia 1+ 07/04/17 04:30 Platelet Estimate ADEQUATE (NORMAL) 07/04/17 04:30 Polychromasia 1+ 07/04/17 04:30 Schistocytes 1+ 07/04/17 04:30 PT 12.0 SECONDS (9.5-11.5) H 07/08/17 04:15 INR 1.14 (0.5-1.4) 07/08/17 04:15 PTT (Actin FS) 25.0 SECONDS (26.0-38.0) L 07/08/17 04:15 D-Dimer 3600 ng/mL (100-400) H 06/21/17 18:20 Specimen Source Arterial 06/28/17 10:55 Sample Site Right Radial 06/28/17 10:55 pH 7.44 (7.35-7.45) 06/28/17 10:55 pCO2 36.0 mmHg (35.0-45.0) 06/28/17 10:55 pO2 100.0 mmHg (80.0-100.0) 06/28/17 10:55 HCO3 25.4 mEq/L (20.0-26.0) 06/28/17 10:55 Base Excess 0.6 mEq/L (-3.0-3.0) 06/28/17 10:55 O2 Saturation 98.0 % (92.0-100.0) 06/28/17 10:55 Rashid Test Positive 06/28/17 10:55 Vent Rate N/A 06/28/17 10:55 Inspired O2 28 06/28/17 10:55 Tidal Volume N/A 06/28/17 10:55 PEEP N/A 06/28/17 10:55 Pressure (ins/psv/peep) N/A 06/28/17 10:55 Critical Value DM 06/28/17 10:55 Sodium 137 mEq/L (136-145) 07/12/17 04:20 Potassium 3.5 mEq/L (3.5-5.1) 07/12/17 04:20 Chloride 105 mEq/L (98-107) 07/12/17 04:20 Carbon Dioxide 26.8 mEq/L (21.0-31.0) 07/12/17 04:20 Anion Gap 8.7 (7.0-16.0) 07/12/17 04:20 BUN 17 mg/dL (7-25) 07/12/17 04:20 Creatinine 1.2 mg/dL (0.6-1.2) 07/12/17 04:20 Est GFR ( Amer) TNP 07/12/17 04:20 Est GFR (Non-Af Amer) TNP 07/12/17 04:20 BUN/Creatinine Ratio 14.2 07/12/17 04:20 Glucose 245 mg/dL (70-105) H 07/12/17 04:20 POC Glucose 258 MG/DL (70 - 105) H 07/12/17 12:02 Hemoglobin A1c % 11.7 % (4.0-6.0) H 06/21/17 18:20 Calcium 8.2 mg/dL (8.6-10.3) L 07/12/17 04:20 Phosphorus 2.6 mg/dL (2.5-5.0) 07/12/17 04:20 Magnesium 2.0 mg/dL (1.9-2.7) 07/12/17 04:20 Iron 19 ug/dL (27-139) L 06/22/17 05:20 TIBC 176 ug/dL (250-450) L 06/22/17 05:20 Iron Saturation 11 % (15-55) L 06/22/17 05:20 Unsaturated IBC 157 ug/dL (118-369) 06/22/17 05:20 Ferritin 164 ng/mL (15-150) H 06/22/17 05:20 Total Bilirubin 0.6 mg/dL (0.3-1.0) 07/09/17 04:30 AST 31 U/L (13-39) 07/09/17 04:30 ALT 18 U/L (7-52) 07/09/17 04:30 Alkaline Phosphatase 211 U/L (34-104) H 07/09/17 04:30 Ammonia 38 umol/L (16-53) 07/08/17 04:15 Creatine Kinase 39 U/L (30-223) 06/21/17 18:20 Troponin I 0.01 ng/mL (0.01-0.05) 06/21/17 18:20 B-Natriuretic Peptide 108.0 pg/mL (5.0-100.0) H 07/09/17 04:30 Total Protein 5.0 gm/dL (6.0-8.3) L 07/09/17 04:30 Albumin 1.9 gm/dL (3.7-5.3) L 07/09/17 04:30 Globulin 3.1 gm/dL 07/09/17 04:30 Albumin/Globulin Ratio 0.6 (1.0-1.8) L 07/09/17 04:30 Prealbumin 16 mg/dL (9-32) 07/11/17 04:22 Triglycerides 57 mg/dL (<150) 07/09/17 04:30 Cholesterol 102 mg/dL (<200) 07/11/17 04:22 LDL Cholesterol Direct 65 mg/dL (75-193) L 06/21/17 18:20 HDL Cholesterol 43 mg/dL (23-92) 06/21/17 18:20 Vitamin B12 1797 pg/mL (232-1245) H 07/02/17 03:41 Folic Acid 10.3 ng/mL (>3.0) 07/02/17 03:41 Helicobacter pylori Ab NEGATIVE (NEGATIVE) 07/09/17 14:54 Blood Type O POSITIVE 07/09/17 09:16 Antibody Screen NEGATIVE 07/09/17 09:16 Crossmatch See Detail 07/09/17 09:16 - Physical Exam Vitals and I&O: Vital Signs Temp 98.3 F 07/12/17 07:00 Pulse 94 07/12/17 11:41 Resp 17 07/12/17 11:00 BP 165/83 07/12/17 11:41 Pulse Ox 98 07/12/17 11:00 Intake & Output 07/11/17 07/12/17 07/12/17 18:59 06:59 18:59 Intake Total 250 535.000 176.667 Output Total 1100 600 Balance -850 535.000 -423.333 Weight (lbs) 138 lb 14.4 oz 138 lb 14.4 oz Intake: Intake, IV Amount 535.000 176.667 Nitroglycerin 50mg/D5W 535.000 176.667 Premix 50 mg In 250 ml @ Per Protocol IV TITR PRN Rx#:[id number] Oral 0 TPN/PPN 250 Output: Urine 1100 600 Stool 0 Other: Stool Characteristics Soft Black Active Medications: Current Medications Acetaminophen (Tylenol) 650 mg PO Q4H PRN PRN Reason: Pain Or Fever above 101 Stop: 08/20/17 19:40 Acetaminophen/Hydrocodone Bitart ([place] 5mg/325mg) 1 tab PO Q4H PRN PRN Reason: Pain (Severe) Stop: 09/04/17 13:12 Al Hydrox/Mg Hydrox/Simethicone (Maalox) 30 ml PO Q6H PRN PRN Reason: Dyspepsia Stop: 08/20/17 19:40 Albuterol Sulfate (Albuterol 2.5mg/3ml Neb Ud) 2.5 mg HHN Q2HRT PRN PRN Reason: Shortness of Breath or Wheeze Stop: 08/20/17 19:40 Last Admin: 07/11/17 05:23 Dose: 2.5 mg Albuterol/Ipratropium (Duoneb Neb) 3 ml HHN Q6HRT ED Stop: 08/30/17 18:59 Last Admin: 07/12/17 07:50 Dose: 3 ml Amlodipine Besylate (Norvasc) 10 mg PO DAILY [facility] Stop: 09/06/17 08:59 Last Admin: 07/12/17 11:29 Dose: Not Given Clonidine HCl (Eppvxevb-Dqx-1) 1 patch TD Sa [facility] Stop: 09/07/17 12:14 Last Admin: 07/09/17 12:52 Dose: 1 patch Diltiazem HCl (Cardizem) 20 mg IVP Q4H PRN PRN Reason: HR> 120 Stop: 09/04/17 17:55 Enalaprilat (Vasotec) 1.25 mg IVP Q6HR PRN PRN Reason: SBP 160 mmhg and above Stop: 09/08/17 05:59 Last Admin: 07/12/17 11:41 Dose: 1.25 mg Guaifenesin (Robitussin) 200 mg PO Q4HR PRN PRN Reason: Cough or Congestion Stop: 08/20/17 19:40 Haloperidol Decanoate (Haldol Dec) 25 mg IM QMONTH [facility] Stop: 08/23/17 09:59 Last Admin: 06/24/17 09:10 Dose: 25 mg Hydralazine HCl (Apresoline 20 Mg/Ml) 10 mg IV Q6HR PRN PRN Reason: SBP ABOVE 160 Stop: 08/25/17 12:20 Last Admin: 07/12/17 09:05 Dose: 10 mg Cefepime HCl 0.5 gm/ Dextrose 50 mls @ 100 mls/hr IV Q24H [facility] Stop: 09/06/17 13:59 Last Admin: 07/11/17 14:12 Dose: 100 mls/hr Dextrose/Sodium Chloride (D5-0.45ns) 1,000 mls @ 20 mls/hr IV .Q24H [facility] Stop: 09/08/17 09:25 Last Admin: 07/11/17 17:32 Dose: 20 mls/hr Dextrose/ Amino Acids/ (Electrolytes) 1,200 mls @ 50 mls/hr IV .Q24H [facility] Stop: 08/09/17 15:59 Last Admin: 07/11/17 16:02 Dose: 50 mls/hr Nitroglycerin/Dextrose (Nitroglycerin 50mg/Dextrose 5% Premix) 50 mg in 250 mls @ 0 mls/hr IV TITR PRN; Protocol; Per Protocol PRN Reason: Keep SBP 150 Stop: 09/09/17 14:32 Last Admin: 07/12/17 10:40 Dose: 8 mg/hr, 40 mls/hr Insulin Aspart (Novolog) 0 units SUBQ Q6HR ED PRN Reason: Protocol Stop: 09/03/17 00:00 Last Admin: 07/12/17 05:44 Dose: 2 units Ipratropium [place] (Atrovent Neb 0.5mg/2.5ml) 0.5 mg IH Q2HRT PRN PRN Reason: Shortness of Breath or Wheeze Stop: 08/20/17 19:40 Last Admin: 07/11/17 05:23 Dose: 0.5 mg Labetalol HCl (Trandate) 10 mg IVP Q4HR PRN PRN Reason: SBP ABOVE 160 Stop: 09/09/17 13:16 Last Admin: 07/12/17 03:38 Dose: 10 mg Lactobacillus Rhamnosus (Culturelle 15b) 1 each PO DAILY [facility] Stop: 08/30/17 08:59 Last Admin: 07/12/17 11:29 Dose: Not Given Mirtazapine (Remeron) 15 mg PO HS [facility] PRN Reason: Protocol Stop: 08/20/17 20:59 Last Admin: 07/11/17 21:18 Dose: Not Given Miscellaneous (Probiotic Screen) 1 ea PRN PRN PRN Reason: PROTOCOL Stop: 08/29/17 11:59 Miscellaneous (Tpn Per Pharmacy) 1 ea PRN PRN PRN Reason: PROTOCOL Stop: 09/06/17 13:12 Morphine Sulfate (Morphine) 2 mg IVP Q4HR PRN PRN Reason: Pain (Moderate) Stop: 09/04/17 19:01 Last Admin: 07/12/17 08:26 Dose: 2 mg Morphine Sulfate (Morphine) 2 mg IVP Q4H PRN PRN Reason: Pain (Severe) Stop: 09/06/17 13:06 Last Admin: 07/09/17 22:21 Dose: 2 mg Nitroglycerin (Nitrostat) 0.4 mg SL Q5MIN PRN PRN Reason: Chest Pain Stop: 08/20/17 19:40 Ondansetron HCl (Zofran Odt) 4 mg PO Q6H PRN PRN Reason: Nausea / Vomiting Stop: 09/04/17 13:12 Pantoprazole Sodium (Protonix) 40 mg IVP BID ED Stop: 09/09/17 16:59 Last Admin: 07/12/17 09:05 Dose: 40 mg Sodium Phosphate (Fleet Enema) 135 ml RC PRN PRN PRN Reason: Constipation Stop: 09/10/17 09:36 General: weak, demented, thin, bilateral temporal wasting HEENT: NC/AT, PERRLA, thinning hair, other (ngt) Neck: Supple Lungs: rales, ronchi Cardiovascular: RRR, Normal S1, Normal S2, without murmur Abdomen: non-tender, distended Extremities: excoriation, contracture, deformity Neurological: lethargic, unsteady, bedbound - Procedures Procedures: Procedures Procedure Code Date PARTIAL REMOVAL OF COLON 75860 06/21/17 RESECTION OF RIGHT LARGE INTESTINE, OPEN APPROACH [id number] 06/21/17 Internal Medicine Assmt/Plan - Assessment Assessment: acute dvt cecal mass s/p exploratory lap right right hemicolectomy severe anemia dm2 schizophrenia htn psychosis hypokalemia - Plan Plan: monitor h/h awaiting for kub results cardiology follow up monitor electrolytes follow up labs in am will follow strategic planning consultant recommendations Nutritional Asmnt/Malnutr-PDOC - Dietary Evaluation Malnutrition Findings (Please click <Entered> for more info): Nutritional Asmnt/Malnutrition Start: 06/22/17 18: 04 Text: Status: Complete Freq: Document 06/22/17 18:04 GRISELDA (Rec: 06/22/17 18:15 GRISELDA [email or web address]) Nutritional Asmnt/Malnutrition Patient General Information Nutritional Screening High Risk Consult Diagnosis left lower extremity DVT, severe anemia, CHF, HTN Pertinent Medical Hx/Surgical Hx DM, anemia, renal stones, schizophrenia Subjective Information Pt seen lying in bed, confused at time of visit. Spoke with LULÚ Seay RN reported pt ate well, consumed 60% of breakfast this morning. Per notes, pt has EGD and colonoscopy scheduled tommorrow. Current Diet Order/ Nutrition Support pureed Pertinent Medications D5-0.9ns, novolog, remeron, kcl Pertinent Labs 06/21 Na 137, K 3.5, Cl 100, BUN 24, Cr 1.3, Glucose 186, AST 10, ALT 6, Alb 2.6 06/22 POC 383 Nutritional Hx/Data Height 5 ft Height (Calculated Centimeters) 152.4 Current Weight (lbs) 86 lb Weight (Calculated Kilograms) 39.0 Weight (Calculated Grams) 84551.9 [place] Body Weight 100 % [place] Body Weight 86 Body Mass Index (BMI) 16.7 Weight Status Underweight GI Symptoms GI Symptoms None Last BM none Difficult in: None Skin Integrity/Comment: intact Current %PO Fair (50-74%) Estimated Nutritional Goals Calories/Kcals/Kg 25-30 based on IBW 45kg Kcals Calculated 3530-8751 Protein g/k-1.2 Protein Calculated 45-54 Fluid: ml 1125-1350ml (1ml/kcal) Nutritional Problem 1. Problem Problem altered nutrition related lab values Etiology hx of DM Signs/Symptoms: Glucose 186, POC 383 Malnutrition Alert Protein-Calorie Malnutrition N/A Is there a minimum of two criteria No selected? Query Text:Check all the applicable criteria. A minimum of two criteria are recommended for diagnosis of either severe or non-severe malnutrition. Intervention/Recommendation Comments 1. Recommend CCHO, low sodium diet for optimal glycemic and BP control. RN notified. 2. Monitor PO intake, wt, labs and skin integrity 3. F/U as high risk in 2-3 days, 06/24-06/25 Expected Outcomes/Goals Expected Outcomes/Goals 1. PO intake to meet at least 75% of nutritional needs. 2. Wt stability, skin to remain intact, labs to improve
--- NOTE | 2017-07-12 12:39 | Diagnostic Imaging Report ---
KUB single view HISTORY: Abdominal distention COMPARISON: None FINDINGS: There is diffuse gaseous distention of loops of bowel. Calcifications of the pelvis are noted. IMPRESSION: Diffuse gaseous distention of bowel loops including small and large bowel. Findings may be due to a generalized ileus versus less likely distal obstructive process. Clinical correlation and follow-up is recommended Pelvic calcifications likely due to fibroid calcifications. If indicated CT would provide additional detail and assessment.
[2017-07-12] MEDS: TPN 8.5%-70% CUSTOM IV SCH (18:34)
[2017-07-13] MEDS: INSULIN ASPART, RECOMBINANT 100 UNITS/ML SUBQ SCH ×4 (00:30→18:14)
[2017-07-13] MEDS: Morphine Sulfate 2 mg/mL 1mL Syr IVP PRN ×3 (00:38→22:44)
[2017-07-13] MEDS: Albuterol/Ipratropium Neb 3 ML AERS HHN SCH ×4 (01:13→19:11)
[2017-07-13 04:32] LABS: % BASOPHILS 0.4 % (0.0-2.0); % EOSINOPHILS 0.4 % (0.0-5.0); % LYMPHOCYTES 11.6 % (20.0-50.0); % MONOCYTES 9.5 % (2.0-10.0); % NEUTROPHILS 78.1 % (40.0-80.0); HEMATOCRIT 24.4 % (41.0-60); HEMOGLOBIN 8.2 gm/dL (12-16); MEAN CELL VOLUME 84.4 fl (81-100); MEAN CORPUSCULAR HEMOGLOBIN 28.4 pg (27.0-31.0); MEAN CORPUSCULAR HGB CONC 33.6 pg (28.0-36.0); MEAN PLATELET VOLUME 7.7 fl; MONOCYTE ABSOLUTE 0.8 Th/cmm (0.3-1.0); NEUTROPHILE ABSOLUTE 6.8 Th/cmm (1.8-8.0); PLATELET COUNT 235 Th/cmm (150-400); RED BLOOD COUNT 2.89 Mil/cmm (3.80-5.20); WHITE BLOOD COUNT 8.6 Th/cmm (4.8-10.8)
[2017-07-13] MEDS ORDERED: Nitroglycerin 50mg/D5W Premix 50 MG/250 ML INFUS..BTL IV ONE (04:32)
[2017-07-13] MEDS: Nitroglycerin 50mg/D5W Premix 50 MG/250 ML INFUS..BTL IV PRN ×2 (04:34→09:58)
[2017-07-13 04:45] LABS: ANION GAP 8.4 (7.0-16.0); BUN - UREA NITROGEN 18 mg/dL (7-25); CARBON DIOXIDE 27.4 mEq/L (21.0-31.0); CHLORIDE 98 mEq/L (98-107); CREATININE - SERUM 1.1 mg/dL (0.6-1.2); GLUCOSE 230 mg/dL (70-105); POTASSIUM SERUM 3.8 mEq/L (3.5-5.1); SODIUM SERUM 130 mEq/L (136-145)
[2017-07-13] MEDS: Lactobacillus Rhamnosus GG 15 Billion CFU CAP.SPRINK PO SCH (08:36)
--- NOTE | 2017-07-13 10:10 | General Progress Note ---
Subjective - Review of Systems Service Date: 07/13/17 Objective - Results Result Diagrams: 07/13/17 03:56 07/13/17 03:56 Recent Labs: Laboratory Last Values WBC 8.6 Th/cmm (4.8-10.8) 07/13/17 03:56 RBC 2.89 Mil/cmm (3.80-5.20) L 07/13/17 03:56 Hgb 8.2 gm/dL (12-16) L 07/13/17 03:56 Hct 24.4 % (41.0-60) L 07/13/17 03:56 MCV 84.4 fl (81-100) 07/13/17 03:56 MCH 28.4 pg (27.0-31.0) 07/13/17 03:56 MCHC Differential 33.6 pg (28.0-36.0) 07/13/17 03:56 RDW 16.0 % (11.5-20.0) 07/13/17 03:56 Plt Count 235 Th/cmm (150-400) 07/13/17 03:56 MPV 7.7 fl 07/13/17 03:56 Neutrophils % 78.1 % (40.0-80.0) 07/13/17 03:56 Band Neutrophils % 2 % (0-10) 07/04/17 04:30 Lymphocytes % 11.6 % (20.0-50.0) L 07/13/17 03:56 Monocytes % 9.5 % (2.0-10.0) 07/13/17 03:56 Eosinophils % 0.4 % (0.0-5.0) 07/13/17 03:56 Basophils % 0.4 % (0.0-2.0) 07/13/17 03:56 Neutrophils (Manual) 80 % (40-80) 07/04/17 04:30 Lymphocytes 12 % (20-50) L 07/04/17 04:30 Monocytes 2 % (2-10) 07/04/17 04:30 Eosinophils 4 % (0-5) 07/04/17 04:30 Hypochromia 1+ 07/04/17 04:30 Platelet Estimate ADEQUATE (NORMAL) 07/04/17 04:30 Polychromasia 1+ 07/04/17 04:30 Schistocytes 1+ 07/04/17 04:30 PT 12.0 SECONDS (9.5-11.5) H 07/08/17 04:15 INR 1.14 (0.5-1.4) 07/08/17 04:15 PTT (Actin FS) 25.0 SECONDS (26.0-38.0) L 07/08/17 04:15 D-Dimer 3600 ng/mL (100-400) H 06/21/17 18:20 Specimen Source Arterial 06/28/17 10:55 Sample Site Right Radial 06/28/17 10:55 pH 7.44 (7.35-7.45) 06/28/17 10:55 pCO2 36.0 mmHg (35.0-45.0) 06/28/17 10:55 pO2 100.0 mmHg (80.0-100.0) 06/28/17 10:55 HCO3 25.4 mEq/L (20.0-26.0) 06/28/17 10:55 Base Excess 0.6 mEq/L (-3.0-3.0) 06/28/17 10:55 O2 Saturation 98.0 % (92.0-100.0) 06/28/17 10:55 Rashid Test Positive 06/28/17 10:55 Vent Rate N/A 06/28/17 10:55 Inspired O2 28 06/28/17 10:55 Tidal Volume N/A 06/28/17 10:55 PEEP N/A 06/28/17 10:55 Pressure (ins/psv/peep) N/A 06/28/17 10:55 Critical Value DM 06/28/17 10:55 Sodium 130 mEq/L (136-145) L 07/13/17 03:56 Potassium 3.8 mEq/L (3.5-5.1) 07/13/17 03:56 Chloride 98 mEq/L (98-107) 07/13/17 03:56 Carbon Dioxide 27.4 mEq/L (21.0-31.0) 07/13/17 03:56 Anion Gap 8.4 (7.0-16.0) 07/13/17 03:56 BUN 18 mg/dL (7-25) 07/13/17 03:56 Creatinine 1.1 mg/dL (0.6-1.2) 07/13/17 03:56 Est GFR ( Amer) TNP 07/13/17 03:56 Est GFR (Non-Af Amer) TNP 07/13/17 03:56 BUN/Creatinine Ratio 16.4 07/13/17 03:56 Glucose 230 mg/dL (70-105) H 07/13/17 03:56 POC Glucose 232 MG/DL (70 - 105) H 07/13/17 00:25 Hemoglobin A1c % 11.7 % (4.0-6.0) H 06/21/17 18:20 Calcium 8.0 mg/dL (8.6-10.3) L 07/13/17 03:56 Phosphorus 3.0 mg/dL (2.5-5.0) 07/13/17 03:56 Magnesium 2.0 mg/dL (1.9-2.7) 07/13/17 03:56 Iron 19 ug/dL (27-139) L 06/22/17 05:20 TIBC 176 ug/dL (250-450) L 06/22/17 05:20 Iron Saturation 11 % (15-55) L 06/22/17 05:20 Unsaturated IBC 157 ug/dL (118-369) 06/22/17 05:20 Ferritin 164 ng/mL (15-150) H 06/22/17 05:20 Total Bilirubin 0.6 mg/dL (0.3-1.0) 07/09/17 04:30 AST 31 U/L (13-39) 07/09/17 04:30 ALT 18 U/L (7-52) 07/09/17 04:30 Alkaline Phosphatase 211 U/L (34-104) H 07/09/17 04:30 Ammonia 38 umol/L (16-53) 07/08/17 04:15 Creatine Kinase 39 U/L (30-223) 06/21/17 18:20 Troponin I 0.01 ng/mL (0.01-0.05) 06/21/17 18:20 B-Natriuretic Peptide 108.0 pg/mL (5.0-100.0) H 07/09/17 04:30 Total Protein 5.0 gm/dL (6.0-8.3) L 07/09/17 04:30 Albumin 1.9 gm/dL (3.7-5.3) L 07/09/17 04:30 Globulin 3.1 gm/dL 07/09/17 04:30 Albumin/Globulin Ratio 0.6 (1.0-1.8) L 07/09/17 04:30 Prealbumin 16 mg/dL (9-32) 07/11/17 04:22 Triglycerides 57 mg/dL (<150) 07/09/17 04:30 Cholesterol 102 mg/dL (<200) 07/11/17 04:22 LDL Cholesterol Direct 65 mg/dL (75-193) L 06/21/17 18:20 HDL Cholesterol 43 mg/dL (23-92) 06/21/17 18:20 Vitamin B12 1797 pg/mL (232-1245) H 07/02/17 03:41 Folic Acid 10.3 ng/mL (>3.0) 07/02/17 03:41 Helicobacter pylori Ab NEGATIVE (NEGATIVE) 07/09/17 14:54 Blood Type O POSITIVE 07/09/17 09:16 Antibody Screen NEGATIVE 07/09/17 09:16 Crossmatch See Detail 07/09/17 09:16 - Physical Exam Vitals and I&O: Vital Signs Temp 97.8 F 07/13/17 08:00 Pulse 93 07/13/17 10:04 Resp 15 07/13/17 09:00 BP 140/84 07/13/17 10:04 Pulse Ox 96 07/13/17 09:00 Intake & Output 07/12/17 07/13/17 07/13/17 18:59 06:59 18:59 Intake Total 2991.642 4725 876 Output Total 600 1025 180 Balance 1026.667 91 696 Weight (lbs) 63.004 kg 74.389 kg 80.195 kg Intake: Intake, IV Amount 1626.667 416 216 Cefepime 0.5 gm In 50 Dextrose 5% 50 ml @ 100 mls/hr IV Q24H ED Rx#: [id number] Dextrose 70% 700 ml Amino 1200 Acids 8.5% 500 ml @ 50 mls/hr IV .Q24H ED Rx#: [id number] Nitroglycerin 50mg/D5W 376.667 416 216 Premix 50 mg In 250 ml @ Per Protocol IV TITR PRN Rx#:[id number] TPN/PPN 600 660 Other 100 Output: Urine 600 1025 180 Stool 0 Other: # Bowel Movements 1 Stool Characteristics Soft Brown Active Medications: Current Medications Acetaminophen (Tylenol) 650 mg PO Q4H PRN PRN Reason: Pain Or Fever above 101 Stop: 08/20/17 19:40 Acetaminophen/Hydrocodone Bitart ([place] 5mg/325mg) 1 tab PO Q4H PRN PRN Reason: Pain (Severe) Stop: 09/04/17 13:12 Al Hydrox/Mg Hydrox/Simethicone (Maalox) 30 ml PO Q6H PRN PRN Reason: Dyspepsia Stop: 08/20/17 19:40 Albuterol Sulfate (Albuterol 2.5mg/3ml Neb Ud) 2.5 mg HHN Q2HRT PRN PRN Reason: Shortness of Breath or Wheeze Stop: 08/20/17 19:40 Last Admin: 07/11/17 05:23 Dose: 2.5 mg Albuterol/Ipratropium (Duoneb Neb) 3 ml HHN Q6HRT ED Stop: 08/30/17 18:59 Last Admin: 07/13/17 06:55 Dose: 3 ml Amlodipine Besylate (Norvasc) 10 mg PO DAILY [facility] Stop: 09/06/17 08:59 Last Admin: 07/13/17 08:36 Dose: Not Given Clonidine HCl (Pwjotohq-Lqe-5) 1 patch TD Sa [facility] Stop: 09/07/17 12:14 Last Admin: 07/09/17 12:52 Dose: 1 patch Diltiazem HCl (Cardizem) 20 mg IVP Q4H PRN PRN Reason: HR> 120 Stop: 09/04/17 17:55 Enalaprilat (Vasotec) 1.25 mg IVP Q6HR PRN PRN Reason: SBP 160 mmhg and above Stop: 09/08/17 05:59 Last Admin: 07/12/17 11:41 Dose: 1.25 mg Enalaprilat (Vasotec) 2.5 mg IVP Q4HR [facility] Stop: 09/10/17 15:59 Last Admin: 07/13/17 10:04 Dose: 2.5 mg Guaifenesin (Robitussin) 200 mg PO Q4HR PRN PRN Reason: Cough or Congestion Stop: 08/20/17 19:40 Haloperidol Decanoate (Haldol Dec) 25 mg IM QMONTH [facility] Stop: 08/23/17 09:59 Last Admin: 06/24/17 09:10 Dose: 25 mg Hydralazine HCl (Apresoline 20 Mg/Ml) 10 mg IV Q6HR PRN PRN Reason: SBP ABOVE 160 Stop: 08/25/17 12:20 Last Admin: 07/13/17 05:15 Dose: 10 mg Cefepime HCl 0.5 gm/ Dextrose 50 mls @ 100 mls/hr IV Q24H [facility] Stop: 09/06/17 13:59 Last Infusion: 07/12/17 14:59 Dose: Infused Dextrose/Sodium Chloride (D5-0.45ns) 1,000 mls @ 20 mls/hr IV .Q24H [facility] Stop: 09/08/17 09:25 Last Admin: 07/11/17 17:32 Dose: 20 mls/hr Dextrose/ Amino Acids/ (Electrolytes) 1,200 mls @ 50 mls/hr IV .Q24H [facility] Stop: 08/09/17 15:59 Last Admin: 07/12/17 18:34 Dose: 50 mls/hr Nitroglycerin/Dextrose (Nitroglycerin 50mg/Dextrose 5% Premix) 50 mg in 250 mls @ 0 mls/hr IV TITR PRN; Protocol; Per Protocol PRN Reason: Keep SBP 150 Stop: 09/09/17 14:32 Last Admin: 07/13/17 09:58 Dose: 8 mg/hr, 40 mls/hr Insulin Aspart (Novolog) 0 units SUBQ Q6HR ED PRN Reason: Protocol Stop: 09/03/17 00:00 Last Admin: 07/13/17 06:04 Dose: 2 units Ipratropium [place] (Atrovent Neb 0.5mg/2.5ml) 0.5 mg IH Q2HRT PRN PRN Reason: Shortness of Breath or Wheeze Stop: 08/20/17 19:40 Last Admin: 07/11/17 05:23 Dose: 0.5 mg Labetalol HCl (Trandate) 10 mg IVP Q4HR PRN PRN Reason: SBP ABOVE 160 Stop: 09/09/17 13:16 Last Admin: 07/12/17 03:38 Dose: 10 mg Lactobacillus Rhamnosus (Culturelle 15b) 1 each PO DAILY [facility] Stop: 08/30/17 08:59 Last Admin: 07/13/17 08:36 Dose: Not Given Mirtazapine (Remeron) 15 mg PO HS ED PRN Reason: Protocol Stop: 08/20/17 20:59 Last Admin: 07/12/17 20:20 Dose: Not Given Miscellaneous (Probiotic Screen) 1 ea PRN PRN PRN Reason: PROTOCOL Stop: 08/29/17 11:59 Miscellaneous (Tpn Per Pharmacy) 1 ea PRN PRN PRN Reason: PROTOCOL Stop: 09/06/17 13:12 Morphine Sulfate (Morphine) 2 mg IVP Q4HR PRN PRN Reason: Pain (Moderate) Stop: 09/04/17 19:01 Last Admin: 07/13/17 04:40 Dose: 2 mg Morphine Sulfate (Morphine) 2 mg IVP Q4H PRN PRN Reason: Pain (Severe) Stop: 09/06/17 13:06 Last Admin: 07/09/17 22:21 Dose: 2 mg Nitroglycerin (Nitrostat) 0.4 mg SL Q5MIN PRN PRN Reason: Chest Pain Stop: 08/20/17 19:40 Ondansetron HCl (Zofran Odt) 4 mg PO Q6H PRN PRN Reason: Nausea / Vomiting Stop: 09/04/17 13:12 Pantoprazole Sodium (Protonix) 40 mg IVP BID ED Stop: 09/09/17 16:59 Last Admin: 07/13/17 10:04 Dose: 40 mg Sodium Phosphate (Fleet Enema) 135 ml RC PRN PRN PRN Reason: Constipation Stop: 09/10/17 09:36 General: Other HEENT: Atraumatic Neck: Supple Cardiovascular: Regular rate Abdomen: Bowel sounds, Soft, Other (dressing in midline no bleeding) Extremities: Other (right arm picc) - Procedures Procedures: Procedures Procedure Code Date PARTIAL REMOVAL OF COLON 07159 06/21/17 RESECTION OF RIGHT LARGE INTESTINE, OPEN APPROACH [id number] 06/21/17 Assessment/Plan - Assessment Assessment: * DVT * ANEMIA secondary to GI bleeding * CKD * 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 No Xarelto was given confirmed with pharmacy. monitor cbc Path. discussed with pathologist. no invasion. no transfusion today Nutritional Asmnt/Malnutr-PDOC - Dietary Evaluation Malnutrition Findings (Please click <Entered> for more info): Nutritional Asmnt/Malnutrition Start: 06/22/17 18: 04 Text: Status: Complete Freq: Document 06/22/17 18:04 JENY (Rec: 06/22/17 18:15 HEN [email or web address]) Nutritional Asmnt/Malnutrition Patient General Information Nutritional Screening High Risk Consult Diagnosis left lower extremity DVT, severe anemia, CHF, HTN Pertinent Medical Hx/Surgical Hx DM, anemia, renal stones, schizophrenia Subjective Information Pt seen lying in bed, confused at time of visit. Spoke with RN Dawood, RN reported pt ate well, consumed 60% of breakfast this morning. Per notes, pt has EGD and colonoscopy scheduled tommorrow. Current Diet Order/ Nutrition Support pureed Pertinent Medications D5-0.9ns, novolog, remeron, kcl Pertinent Labs 06/21 Na 137, K 3.5, Cl 100, BUN 24, Cr 1.3, Glucose 186, AST 10, ALT 6, Alb 2.6 06/22 POC 383 Nutritional Hx/Data Height 1.52 m Height (Calculated Centimeters) 152.4 Current Weight (lbs) 39.009 kg Weight (Calculated Kilograms) 39.0 Weight (Calculated Grams) 03733.9 [place] Body Weight 100 % [place] Body Weight 86 Body Mass Index (BMI) 16.7 Weight Status Underweight GI Symptoms GI Symptoms None Last BM none Difficult in: None Skin Integrity/Comment: intact Current %PO Fair (50-74%) Estimated Nutritional Goals Calories/Kcals/Kg 25-30 based on IBW 45kg Kcals Calculated 5466-4024 Protein g/k-1.2 Protein Calculated 45-54 Fluid: ml 1125-1350ml (1ml/kcal) Nutritional Problem 1. Problem Problem altered nutrition related lab values Etiology hx of DM Signs/Symptoms: Glucose 186, POC 383 Malnutrition Alert Protein-Calorie Malnutrition N/A Is there a minimum of two criteria No selected? Query Text:Check all the applicable criteria. A minimum of two criteria are recommended for diagnosis of either severe or non-severe malnutrition. Intervention/Recommendation Comments 1. Recommend CCHO, low sodium diet for optimal glycemic and BP control. RN notified. 2. Monitor PO intake, wt, labs and skin integrity 3. F/U as high risk in 2-3 days, 06/24-06/25 Expected Outcomes/Goals Expected Outcomes/Goals 1. PO intake to meet at least 75% of nutritional needs. 2. Wt stability, skin to remain intact, labs to improve
--- NOTE | 2017-07-13 10:25 | General Progress Note ---
Subjective - Review of Systems Service Date: 07/13/17 Subjective: abdomen is still distended but soft had BM with fleet yesterday CBC normal repeat Fleet Objective - Results Result Diagrams: 07/13/17 03:56 07/13/17 03:56 Recent Labs: Laboratory Last Values WBC 8.6 Th/cmm (4.8-10.8) 07/13/17 03:56 RBC 2.89 Mil/cmm (3.80-5.20) L 07/13/17 03:56 Hgb 8.2 gm/dL (12-16) L 07/13/17 03:56 Hct 24.4 % (41.0-60) L 07/13/17 03:56 MCV 84.4 fl (81-100) 07/13/17 03:56 MCH 28.4 pg (27.0-31.0) 07/13/17 03:56 MCHC Differential 33.6 pg (28.0-36.0) 07/13/17 03:56 RDW 16.0 % (11.5-20.0) 07/13/17 03:56 Plt Count 235 Th/cmm (150-400) 07/13/17 03:56 MPV 7.7 fl 07/13/17 03:56 Neutrophils % 78.1 % (40.0-80.0) 07/13/17 03:56 Band Neutrophils % 2 % (0-10) 07/04/17 04:30 Lymphocytes % 11.6 % (20.0-50.0) L 07/13/17 03:56 Monocytes % 9.5 % (2.0-10.0) 07/13/17 03:56 Eosinophils % 0.4 % (0.0-5.0) 07/13/17 03:56 Basophils % 0.4 % (0.0-2.0) 07/13/17 03:56 Neutrophils (Manual) 80 % (40-80) 07/04/17 04:30 Lymphocytes 12 % (20-50) L 07/04/17 04:30 Monocytes 2 % (2-10) 07/04/17 04:30 Eosinophils 4 % (0-5) 07/04/17 04:30 Hypochromia 1+ 07/04/17 04:30 Platelet Estimate ADEQUATE (NORMAL) 07/04/17 04:30 Polychromasia 1+ 07/04/17 04:30 Schistocytes 1+ 07/04/17 04:30 PT 12.0 SECONDS (9.5-11.5) H 07/08/17 04:15 INR 1.14 (0.5-1.4) 07/08/17 04:15 PTT (Actin FS) 25.0 SECONDS (26.0-38.0) L 07/08/17 04:15 D-Dimer 3600 ng/mL (100-400) H 06/21/17 18:20 Specimen Source Arterial 06/28/17 10:55 Sample Site Right Radial 06/28/17 10:55 pH 7.44 (7.35-7.45) 06/28/17 10:55 pCO2 36.0 mmHg (35.0-45.0) 06/28/17 10:55 pO2 100.0 mmHg (80.0-100.0) 06/28/17 10:55 HCO3 25.4 mEq/L (20.0-26.0) 06/28/17 10:55 Base Excess 0.6 mEq/L (-3.0-3.0) 06/28/17 10:55 O2 Saturation 98.0 % (92.0-100.0) 06/28/17 10:55 Rashid Test Positive 06/28/17 10:55 Vent Rate N/A 06/28/17 10:55 Inspired O2 28 06/28/17 10:55 Tidal Volume N/A 06/28/17 10:55 PEEP N/A 06/28/17 10:55 Pressure (ins/psv/peep) N/A 06/28/17 10:55 Critical Value DM 06/28/17 10:55 Sodium 130 mEq/L (136-145) L 07/13/17 03:56 Potassium 3.8 mEq/L (3.5-5.1) 07/13/17 03:56 Chloride 98 mEq/L (98-107) 07/13/17 03:56 Carbon Dioxide 27.4 mEq/L (21.0-31.0) 07/13/17 03:56 Anion Gap 8.4 (7.0-16.0) 07/13/17 03:56 BUN 18 mg/dL (7-25) 07/13/17 03:56 Creatinine 1.1 mg/dL (0.6-1.2) 07/13/17 03:56 Est GFR ( Amer) TNP 07/13/17 03:56 Est GFR (Non-Af Amer) TNP 07/13/17 03:56 BUN/Creatinine Ratio 16.4 07/13/17 03:56 Glucose 230 mg/dL (70-105) H 07/13/17 03:56 POC Glucose 232 MG/DL (70 - 105) H 07/13/17 00:25 Hemoglobin A1c % 11.7 % (4.0-6.0) H 06/21/17 18:20 Calcium 8.0 mg/dL (8.6-10.3) L 07/13/17 03:56 Phosphorus 3.0 mg/dL (2.5-5.0) 07/13/17 03:56 Magnesium 2.0 mg/dL (1.9-2.7) 07/13/17 03:56 Iron 19 ug/dL (27-139) L 06/22/17 05:20 TIBC 176 ug/dL (250-450) L 06/22/17 05:20 Iron Saturation 11 % (15-55) L 06/22/17 05:20 Unsaturated IBC 157 ug/dL (118-369) 06/22/17 05:20 Ferritin 164 ng/mL (15-150) H 06/22/17 05:20 Total Bilirubin 0.6 mg/dL (0.3-1.0) 07/09/17 04:30 AST 31 U/L (13-39) 07/09/17 04:30 ALT 18 U/L (7-52) 07/09/17 04:30 Alkaline Phosphatase 211 U/L (34-104) H 07/09/17 04:30 Ammonia 38 umol/L (16-53) 07/08/17 04:15 Creatine Kinase 39 U/L (30-223) 06/21/17 18:20 Troponin I 0.01 ng/mL (0.01-0.05) 06/21/17 18:20 B-Natriuretic Peptide 108.0 pg/mL (5.0-100.0) H 07/09/17 04:30 Total Protein 5.0 gm/dL (6.0-8.3) L 07/09/17 04:30 Albumin 1.9 gm/dL (3.7-5.3) L 07/09/17 04:30 Globulin 3.1 gm/dL 07/09/17 04:30 Albumin/Globulin Ratio 0.6 (1.0-1.8) L 07/09/17 04:30 Prealbumin 16 mg/dL (9-32) 07/11/17 04:22 Triglycerides 57 mg/dL (<150) 07/09/17 04:30 Cholesterol 102 mg/dL (<200) 07/11/17 04:22 LDL Cholesterol Direct 65 mg/dL (75-193) L 06/21/17 18:20 HDL Cholesterol 43 mg/dL (23-92) 06/21/17 18:20 Vitamin B12 1797 pg/mL (232-1245) H 07/02/17 03:41 Folic Acid 10.3 ng/mL (>3.0) 07/02/17 03:41 Helicobacter pylori Ab NEGATIVE (NEGATIVE) 07/09/17 14:54 Blood Type O POSITIVE 07/09/17 09:16 Antibody Screen NEGATIVE 07/09/17 09:16 Crossmatch See Detail 07/09/17 09:16 - Physical Exam Vitals and I&O: Vital Signs Temp 97.8 F 07/13/17 08:00 Pulse 93 07/13/17 10:04 Resp 15 07/13/17 09:00 BP 140/84 07/13/17 10:04 Pulse Ox 96 07/13/17 09:00 Intake & Output 07/12/17 07/13/17 07/13/17 18:59 06:59 18:59 Intake Total 2457.385 8115 876 Output Total 600 1025 180 Balance 1026.667 91 696 Weight (lbs) 63.004 kg 74.389 kg 80.195 kg Intake: Intake, IV Amount 1626.667 416 216 Cefepime 0.5 gm In 50 Dextrose 5% 50 ml @ 100 mls/hr IV Q24H ED Rx#: [id number] Dextrose 70% 700 ml Amino 1200 Acids 8.5% 500 ml @ 50 mls/hr IV .Q24H [facility] Rx#: [id number] Nitroglycerin 50mg/D5W 376.667 416 216 Premix 50 mg In 250 ml @ Per Protocol IV TITR PRN Rx#:[id number] TPN/PPN 600 660 Other 100 Output: Urine 600 1025 180 Stool 0 Other: # Bowel Movements 1 Stool Characteristics Soft Brown Active Medications: Current Medications Acetaminophen (Tylenol) 650 mg PO Q4H PRN PRN Reason: Pain Or Fever above 101 Stop: 08/20/17 19:40 Acetaminophen/Hydrocodone Bitart ([place] 5mg/325mg) 1 tab PO Q4H PRN PRN Reason: Pain (Severe) Stop: 09/04/17 13:12 Al Hydrox/Mg Hydrox/Simethicone (Maalox) 30 ml PO Q6H PRN PRN Reason: Dyspepsia Stop: 08/20/17 19:40 Albuterol Sulfate (Albuterol 2.5mg/3ml Neb Ud) 2.5 mg HHN Q2HRT PRN PRN Reason: Shortness of Breath or Wheeze Stop: 08/20/17 19:40 Last Admin: 07/11/17 05:23 Dose: 2.5 mg Albuterol/Ipratropium (Duoneb Neb) 3 ml HHN Q6HRT [facility] Stop: 08/30/17 18:59 Last Admin: 07/13/17 06:55 Dose: 3 ml Amlodipine Besylate (Norvasc) 10 mg PO DAILY [facility] Stop: 09/06/17 08:59 Last Admin: 07/13/17 08:36 Dose: Not Given Clonidine HCl (Hlopnsmt-Kua-6) 1 patch TD Sa [facility] Stop: 09/07/17 12:14 Last Admin: 07/09/17 12:52 Dose: 1 patch Diltiazem HCl (Cardizem) 20 mg IVP Q4H PRN PRN Reason: HR> 120 Stop: 09/04/17 17:55 Enalaprilat (Vasotec) 1.25 mg IVP Q6HR PRN PRN Reason: SBP 160 mmhg and above Stop: 09/08/17 05:59 Last Admin: 07/12/17 11:41 Dose: 1.25 mg Enalaprilat (Vasotec) 2.5 mg IVP Q4HR [facility] Stop: 09/10/17 15:59 Last Admin: 07/13/17 10:04 Dose: 2.5 mg Guaifenesin (Robitussin) 200 mg PO Q4HR PRN PRN Reason: Cough or Congestion Stop: 08/20/17 19:40 Haloperidol Decanoate (Haldol Dec) 25 mg IM QMONTH [facility] Stop: 08/23/17 09:59 Last Admin: 06/24/17 09:10 Dose: 25 mg Heparin Sodium (Porcine) (Heparin) 5,000 units SUBQ Q12HR [facility] Stop: 09/12/17 08:59 Hydralazine HCl (Apresoline 20 Mg/Ml) 10 mg IV Q6HR PRN PRN Reason: SBP ABOVE 160 Stop: 08/25/17 12:20 Last Admin: 07/13/17 05:15 Dose: 10 mg Cefepime HCl 0.5 gm/ Dextrose 50 mls @ 100 mls/hr IV Q24H [facility] Stop: 09/06/17 13:59 Last Infusion: 07/12/17 14:59 Dose: Infused Dextrose/Sodium Chloride (D5-0.45ns) 1,000 mls @ 20 mls/hr IV .Q24H [facility] Stop: 09/08/17 09:25 Last Admin: 07/11/17 17:32 Dose: 20 mls/hr Dextrose/ Amino Acids/ (Electrolytes) 1,200 mls @ 50 mls/hr IV .Q24H [facility] Stop: 08/09/17 15:59 Last Admin: 07/12/17 18:34 Dose: 50 mls/hr Nitroglycerin/Dextrose (Nitroglycerin 50mg/Dextrose 5% Premix) 50 mg in 250 mls @ 0 mls/hr IV TITR PRN; Protocol; Per Protocol PRN Reason: Keep SBP 150 Stop: 09/09/17 14:32 Last Admin: 07/13/17 09:58 Dose: 8 mg/hr, 40 mls/hr Insulin Aspart (Novolog) 0 units SUBQ Q6HR ED PRN Reason: Protocol Stop: 09/03/17 00:00 Last Admin: 07/13/17 06:04 Dose: 2 units Ipratropium [place] (Atrovent Neb 0.5mg/2.5ml) 0.5 mg IH Q2HRT PRN PRN Reason: Shortness of Breath or Wheeze Stop: 08/20/17 19:40 Last Admin: 07/11/17 05:23 Dose: 0.5 mg Labetalol HCl (Trandate) 10 mg IVP Q4HR PRN PRN Reason: SBP ABOVE 160 Stop: 09/09/17 13:16 Last Admin: 07/12/17 03:38 Dose: 10 mg Lactobacillus Rhamnosus (Culturelle 15b) 1 each PO DAILY [facility] Stop: 08/30/17 08:59 Last Admin: 07/13/17 08:36 Dose: Not Given Mirtazapine (Remeron) 15 mg PO HS ED PRN Reason: Protocol Stop: 08/20/17 20:59 Last Admin: 07/12/17 20:20 Dose: Not Given Miscellaneous (Probiotic Screen) 1 ea PRN PRN PRN Reason: PROTOCOL Stop: 08/29/17 11:59 Miscellaneous (Tpn Per Pharmacy) 1 ea PRN PRN PRN Reason: PROTOCOL Stop: 09/06/17 13:12 Morphine Sulfate (Morphine) 2 mg IVP Q4HR PRN PRN Reason: Pain (Moderate) Stop: 09/04/17 19:01 Last Admin: 07/13/17 04:40 Dose: 2 mg Morphine Sulfate (Morphine) 2 mg IVP Q4H PRN PRN Reason: Pain (Severe) Stop: 09/06/17 13:06 Last Admin: 07/09/17 22:21 Dose: 2 mg Nitroglycerin (Nitrostat) 0.4 mg SL Q5MIN PRN PRN Reason: Chest Pain Stop: 08/20/17 19:40 Ondansetron HCl (Zofran Odt) 4 mg PO Q6H PRN PRN Reason: Nausea / Vomiting Stop: 09/04/17 13:12 Pantoprazole Sodium (Protonix) 40 mg IVP BID [facility] Stop: 09/09/17 16:59 Last Admin: 07/13/17 10:04 Dose: 40 mg Sodium Phosphate (Fleet Enema) 135 ml RC PRN PRN PRN Reason: Constipation Stop: 09/10/17 09:36 General: Other HEENT: Atraumatic Neck: Supple Cardiovascular: Regular rate Abdomen: Bowel sounds, Soft, Other (dressing in midline no bleeding) Extremities: Other (right arm picc) - Procedures Procedures: Procedures Procedure Code Date PARTIAL REMOVAL OF COLON 31621 06/21/17 RESECTION OF RIGHT LARGE INTESTINE, OPEN APPROACH [id number] 06/21/17 Nutritional Asmnt/Malnutr-PDOC - Dietary Evaluation Malnutrition Findings (Please click <Entered> for more info): Nutritional Asmnt/Malnutrition Start: 06/22/17 18: 04 Text: Status: Complete Freq: Document 06/22/17 18:04 [email or web address] (Rec: 06/22/17 18:15 [id number]) Nutritional Asmnt/Malnutrition Patient General Information Nutritional Screening High Risk Consult Diagnosis left lower extremity DVT, severe anemia, CHF, HTN Pertinent Medical Hx/Surgical Hx DM, anemia, renal stones, schizophrenia Subjective Information Pt seen lying in bed, confused at time of visit. Spoke with LULÚ Seay, RN reported pt ate well, consumed 60% of breakfast this morning. Per notes, pt has EGD and colonoscopy scheduled tommorrow. Current Diet Order/ Nutrition Support pureed Pertinent Medications D5-0.9ns, novolog, remeron, kcl Pertinent Labs 06/21 Na 137, K 3.5, Cl 100, BUN 24, Cr 1.3, Glucose 186, AST 10, ALT 6, Alb 2.6 06/22 POC 383 Nutritional Hx/Data Height 1.52 m Height (Calculated Centimeters) 152.4 Current Weight (lbs) 39.009 kg Weight (Calculated Kilograms) 39.0 Weight (Calculated Grams) 00355.9 [place] Body Weight 100 % [place] Body Weight 86 Body Mass Index (BMI) 16.7 Weight Status Underweight GI Symptoms GI Symptoms None Last BM none Difficult in: None Skin Integrity/Comment: intact Current %PO Fair (50-74%) Estimated Nutritional Goals Calories/Kcals/Kg 25-30 based on IBW 45kg Kcals Calculated 1551-6929 Protein g/k-1.2 Protein Calculated 45-54 Fluid: ml 1125-1350ml (1ml/kcal) Nutritional Problem 1. Problem Problem altered nutrition related lab values Etiology hx of DM Signs/Symptoms: Glucose 186, POC 383 Malnutrition Alert Protein-Calorie Malnutrition N/A Is there a minimum of two criteria No selected? Query Text:Check all the applicable criteria. A minimum of two criteria are recommended for diagnosis of either severe or non-severe malnutrition. Intervention/Recommendation Comments 1. Recommend CCHO, low sodium diet for optimal glycemic and BP control. RN notified. 2. Monitor PO intake, wt, labs and skin integrity 3. F/U as high risk in 2-3 days, 06/24-06/25 Expected Outcomes/Goals Expected Outcomes/Goals 1. PO intake to meet at least 75% of nutritional needs. 2. Wt stability, skin to remain intact, labs to improve
[2017-07-13] MEDS ORDERED: cloNIDine 0.3 mg/24 hr Tdm TD SCH (13:00)
--- NOTE | 2017-07-13 13:01 | Internal Medicine Prog Note ---
Internal Medicine Subjective - Subjective Service Date: 07/13/17 (remains on nitro drip ) Patient seen and examined:: with staff Patient is:: awake, non-verbal (ngt), non-interactive Patient Complaints of:: congestion Per staff patient has:: no adverse event, no episodes of fall, tolerating meds Internal Medicine Objective - Results Result Diagrams: 07/13/17 03:56 07/13/17 03:56 Recent Labs: Laboratory Last Values WBC 8.6 Th/cmm (4.8-10.8) 07/13/17 03:56 RBC 2.89 Mil/cmm (3.80-5.20) L 07/13/17 03:56 Hgb 8.2 gm/dL (12-16) L 07/13/17 03:56 Hct 24.4 % (41.0-60) L 07/13/17 03:56 MCV 84.4 fl (81-100) 07/13/17 03:56 MCH 28.4 pg (27.0-31.0) 07/13/17 03:56 MCHC Differential 33.6 pg (28.0-36.0) 07/13/17 03:56 RDW 16.0 % (11.5-20.0) 07/13/17 03:56 Plt Count 235 Th/cmm (150-400) 07/13/17 03:56 MPV 7.7 fl 07/13/17 03:56 Neutrophils % 78.1 % (40.0-80.0) 07/13/17 03:56 Band Neutrophils % 2 % (0-10) 07/04/17 04:30 Lymphocytes % 11.6 % (20.0-50.0) L 07/13/17 03:56 Monocytes % 9.5 % (2.0-10.0) 07/13/17 03:56 Eosinophils % 0.4 % (0.0-5.0) 07/13/17 03:56 Basophils % 0.4 % (0.0-2.0) 07/13/17 03:56 Neutrophils (Manual) 80 % (40-80) 07/04/17 04:30 Lymphocytes 12 % (20-50) L 07/04/17 04:30 Monocytes 2 % (2-10) 07/04/17 04:30 Eosinophils 4 % (0-5) 07/04/17 04:30 Hypochromia 1+ 07/04/17 04:30 Platelet Estimate ADEQUATE (NORMAL) 07/04/17 04:30 Polychromasia 1+ 07/04/17 04:30 Schistocytes 1+ 07/04/17 04:30 PT 12.0 SECONDS (9.5-11.5) H 07/08/17 04:15 INR 1.14 (0.5-1.4) 07/08/17 04:15 PTT (Actin FS) 25.0 SECONDS (26.0-38.0) L 07/08/17 04:15 D-Dimer 3600 ng/mL (100-400) H 06/21/17 18:20 Specimen Source Arterial 06/28/17 10:55 Sample Site Right Radial 06/28/17 10:55 pH 7.44 (7.35-7.45) 06/28/17 10:55 pCO2 36.0 mmHg (35.0-45.0) 06/28/17 10:55 pO2 100.0 mmHg (80.0-100.0) 06/28/17 10:55 HCO3 25.4 mEq/L (20.0-26.0) 06/28/17 10:55 Base Excess 0.6 mEq/L (-3.0-3.0) 06/28/17 10:55 O2 Saturation 98.0 % (92.0-100.0) 06/28/17 10:55 Rashid Test Positive 06/28/17 10:55 Vent Rate N/A 06/28/17 10:55 Inspired O2 28 06/28/17 10:55 Tidal Volume N/A 06/28/17 10:55 PEEP N/A 06/28/17 10:55 Pressure (ins/psv/peep) N/A 06/28/17 10:55 Critical Value DM 06/28/17 10:55 Sodium 130 mEq/L (136-145) L 07/13/17 03:56 Potassium 3.8 mEq/L (3.5-5.1) 07/13/17 03:56 Chloride 98 mEq/L (98-107) 07/13/17 03:56 Carbon Dioxide 27.4 mEq/L (21.0-31.0) 07/13/17 03:56 Anion Gap 8.4 (7.0-16.0) 07/13/17 03:56 BUN 18 mg/dL (7-25) 07/13/17 03:56 Creatinine 1.1 mg/dL (0.6-1.2) 07/13/17 03:56 Est GFR ( Amer) TNP 07/13/17 03:56 Est GFR (Non-Af Amer) TNP 07/13/17 03:56 BUN/Creatinine Ratio 16.4 07/13/17 03:56 Glucose 230 mg/dL (70-105) H 07/13/17 03:56 POC Glucose 238 MG/DL (70 - 105) H 07/13/17 11:48 Hemoglobin A1c % 11.7 % (4.0-6.0) H 06/21/17 18:20 Calcium 8.0 mg/dL (8.6-10.3) L 07/13/17 03:56 Phosphorus 3.0 mg/dL (2.5-5.0) 07/13/17 03:56 Magnesium 2.0 mg/dL (1.9-2.7) 07/13/17 03:56 Iron 19 ug/dL (27-139) L 06/22/17 05:20 TIBC 176 ug/dL (250-450) L 06/22/17 05:20 Iron Saturation 11 % (15-55) L 06/22/17 05:20 Unsaturated IBC 157 ug/dL (118-369) 06/22/17 05:20 Ferritin 164 ng/mL (15-150) H 06/22/17 05:20 Total Bilirubin 0.6 mg/dL (0.3-1.0) 07/09/17 04:30 AST 31 U/L (13-39) 07/09/17 04:30 ALT 18 U/L (7-52) 07/09/17 04:30 Alkaline Phosphatase 211 U/L (34-104) H 07/09/17 04:30 Ammonia 38 umol/L (16-53) 07/08/17 04:15 Creatine Kinase 39 U/L (30-223) 06/21/17 18:20 Troponin I 0.01 ng/mL (0.01-0.05) 06/21/17 18:20 B-Natriuretic Peptide 108.0 pg/mL (5.0-100.0) H 07/09/17 04:30 Total Protein 5.0 gm/dL (6.0-8.3) L 07/09/17 04:30 Albumin 1.9 gm/dL (3.7-5.3) L 07/09/17 04:30 Globulin 3.1 gm/dL 07/09/17 04:30 Albumin/Globulin Ratio 0.6 (1.0-1.8) L 07/09/17 04:30 Prealbumin 16 mg/dL (9-32) 07/11/17 04:22 Triglycerides 57 mg/dL (<150) 07/09/17 04:30 Cholesterol 102 mg/dL (<200) 07/11/17 04:22 LDL Cholesterol Direct 65 mg/dL (75-193) L 06/21/17 18:20 HDL Cholesterol 43 mg/dL (23-92) 06/21/17 18:20 Vitamin B12 1797 pg/mL (232-1245) H 07/02/17 03:41 Folic Acid 10.3 ng/mL (>3.0) 07/02/17 03:41 Helicobacter pylori Ab NEGATIVE (NEGATIVE) 07/09/17 14:54 Blood Type O POSITIVE 07/09/17 09:16 Antibody Screen NEGATIVE 07/09/17 09:16 Crossmatch See Detail 07/09/17 09:16 - Physical Exam Vitals and I&O: Vital Signs Temp 98.0 F 07/13/17 12:00 Pulse 92 07/13/17 12:44 Resp 13 07/13/17 12:00 BP 172/85 07/13/17 12:44 Pulse Ox 96 07/13/17 12:00 Intake & Output 07/12/17 07/13/17 07/13/17 18:59 06:59 18:59 Intake Total 5077.872 9069 876 Output Total 600 1025 180 Balance 1026.667 91 696 Weight (lbs) 138 lb 14.4 oz 164 lb 176 lb 12.8 oz Intake: Intake, IV Amount 1626.667 416 216 Cefepime 0.5 gm In 50 Dextrose 5% 50 ml @ 100 mls/hr IV Q24H [facility] Rx#: [id number] Dextrose 70% 700 ml Amino 1200 Acids 8.5% 500 ml @ 50 mls/hr IV .Q24H ED Rx#: [id number] Nitroglycerin 50mg/D5W 376.667 416 216 Premix 50 mg In 250 ml @ Per Protocol IV TITR PRN Rx#:[id number] TPN/PPN 600 660 Other 100 Output: Urine 600 1025 180 Stool 0 Other: # Bowel Movements 1 Stool Characteristics Soft Brown Active Medications: Current Medications Acetaminophen (Tylenol) 650 mg PO Q4H PRN PRN Reason: Pain Or Fever above 101 Stop: 08/20/17 19:40 Acetaminophen/Hydrocodone Bitart ([place] 5mg/325mg) 1 tab PO Q4H PRN PRN Reason: Pain (Severe) Stop: 09/04/17 13:12 Al Hydrox/Mg Hydrox/Simethicone (Maalox) 30 ml PO Q6H PRN PRN Reason: Dyspepsia Stop: 08/20/17 19:40 Albuterol Sulfate (Albuterol 2.5mg/3ml Neb Ud) 2.5 mg HHN Q2HRT PRN PRN Reason: Shortness of Breath or Wheeze Stop: 08/20/17 19:40 Last Admin: 07/11/17 05:23 Dose: 2.5 mg Albuterol/Ipratropium (Duoneb Neb) 3 ml HHN Q6HRT [facility] Stop: 08/30/17 18:59 Last Admin: 07/13/17 06:55 Dose: 3 ml Amlodipine Besylate (Norvasc) 10 mg PO DAILY [facility] Stop: 09/06/17 08:59 Last Admin: 07/13/17 08:36 Dose: Not Given Clonidine HCl (Zutpcvhk-Bmw-5) 1 patch TD We [facility] Stop: 09/11/17 12:59 Diltiazem HCl (Cardizem) 20 mg IVP Q4H PRN PRN Reason: HR> 120 Stop: 09/04/17 17:55 Enalaprilat (Vasotec) 1.25 mg IVP Q6HR PRN PRN Reason: SBP 160 mmhg and above Stop: 09/08/17 05:59 Last Admin: 07/12/17 11:41 Dose: 1.25 mg Enalaprilat (Vasotec) 2.5 mg IVP Q4HR [facility] Stop: 09/10/17 15:59 Last Admin: 07/13/17 12:28 Dose: 2.5 mg Guaifenesin (Robitussin) 200 mg PO Q4HR PRN PRN Reason: Cough or Congestion Stop: 08/20/17 19:40 Haloperidol Decanoate (Haldol Dec) 25 mg IM QMONTH [facility] Stop: 08/23/17 09:59 Last Admin: 06/24/17 09:10 Dose: 25 mg Heparin Sodium (Porcine) (Heparin) 5,000 units SUBQ Q12HR [facility] Stop: 09/12/17 08:59 Hydralazine HCl (Apresoline 20 Mg/Ml) 10 mg IV Q6HR PRN PRN Reason: SBP ABOVE 160 Stop: 08/25/17 12:20 Last Admin: 07/13/17 05:15 Dose: 10 mg Cefepime HCl 0.5 gm/ Dextrose 50 mls @ 100 mls/hr IV Q24H [facility] Stop: 09/06/17 13:59 Last Infusion: 07/12/17 14:59 Dose: Infused Dextrose/Sodium Chloride (D5-0.45ns) 1,000 mls @ 20 mls/hr IV .Q24H [facility] Stop: 09/08/17 09:25 Last Admin: 07/11/17 17:32 Dose: 20 mls/hr Dextrose/ Amino Acids/ (Electrolytes) 1,200 mls @ 50 mls/hr IV .Q24H [facility] Stop: 08/09/17 15:59 Last Admin: 07/12/17 18:34 Dose: 50 mls/hr Nitroglycerin/Dextrose (Nitroglycerin 50mg/Dextrose 5% Premix) 50 mg in 250 mls @ 0 mls/hr IV TITR PRN; Protocol; Per Protocol PRN Reason: Keep SBP 150 Stop: 09/09/17 14:32 Last Admin: 07/13/17 09:58 Dose: 8 mg/hr, 40 mls/hr Insulin Aspart (Novolog) 0 units SUBQ Q6HR ED PRN Reason: Protocol Stop: 09/03/17 00:00 Last Admin: 07/13/17 12:29 Dose: 2 units Ipratropium [place] (Atrovent Neb 0.5mg/2.5ml) 0.5 mg IH Q2HRT PRN PRN Reason: Shortness of Breath or Wheeze Stop: 08/20/17 19:40 Last Admin: 07/11/17 05:23 Dose: 0.5 mg Labetalol HCl (Trandate) 10 mg IVP Q4HR PRN PRN Reason: SBP ABOVE 160 Stop: 09/09/17 13:16 Last Admin: 07/12/17 03:38 Dose: 10 mg Lactobacillus Rhamnosus (Culturelle 15b) 1 each PO DAILY [facility] Stop: 08/30/17 08:59 Last Admin: 07/13/17 08:36 Dose: Not Given Mirtazapine (Remeron) 15 mg PO HS ED PRN Reason: Protocol Stop: 08/20/17 20:59 Last Admin: 07/12/17 20:20 Dose: Not Given Miscellaneous (Probiotic Screen) 1 ea PRN PRN PRN Reason: PROTOCOL Stop: 08/29/17 11:59 Miscellaneous (Tpn Per Pharmacy) 1 ea PRN PRN PRN Reason: PROTOCOL Stop: 09/06/17 13:12 Morphine Sulfate (Morphine) 2 mg IVP Q4HR PRN PRN Reason: Pain (Moderate) Stop: 09/04/17 19:01 Last Admin: 07/13/17 04:40 Dose: 2 mg Morphine Sulfate (Morphine) 2 mg IVP Q4H PRN PRN Reason: Pain (Severe) Stop: 09/06/17 13:06 Last Admin: 07/09/17 22:21 Dose: 2 mg Nitroglycerin (Nitrostat) 0.4 mg SL Q5MIN PRN PRN Reason: Chest Pain Stop: 08/20/17 19:40 Ondansetron HCl (Zofran Odt) 4 mg PO Q6H PRN PRN Reason: Nausea / Vomiting Stop: 09/04/17 13:12 Pantoprazole Sodium (Protonix) 40 mg IVP BID [facility] Stop: 09/09/17 16:59 Last Admin: 07/13/17 10:04 Dose: 40 mg Sodium Phosphate (Fleet Enema) 135 ml RC PRN PRN PRN Reason: Constipation Stop: 09/10/17 09:36 General: weak, demented, thin, bilateral temporal wasting HEENT: NC/AT, PERRLA, thinning hair, other (ngt) Neck: Supple Lungs: rales, ronchi Cardiovascular: RRR, Normal S1, Normal S2, without murmur Abdomen: non-tender, distended Extremities: excoriation, contracture, deformity Neurological: lethargic, unsteady, bedbound - Procedures Procedures: Procedures Procedure Code Date PARTIAL REMOVAL OF COLON 58298 06/21/17 RESECTION OF RIGHT LARGE INTESTINE, OPEN APPROACH [id number] 06/21/17 Internal Medicine Assmt/Plan - Assessment Assessment: acute dvt cecal mass s/p exploratory lap right right hemicolectomy severe anemia dm2 schizophrenia htn psychosis hypokalemia - Plan Plan: increased nitro to 3 monitor h/h cardiology follow up monitor electrolytes follow up labs in am will follow consultant teacher recommendations Nutritional Asmnt/Malnutr-PDOC - Dietary Evaluation Malnutrition Findings (Please click <Entered> for more info): Nutritional Asmnt/Malnutrition Start: 06/22/17 18: 04 Text: Status: Complete Freq: Document 06/22/17 18:04 [email or web address] (Rec: 06/22/17 18:15 [id number]) Nutritional Asmnt/Malnutrition Patient General Information Nutritional Screening High Risk Consult Diagnosis left lower extremity DVT, severe anemia, CHF, HTN Pertinent Medical Hx/Surgical Hx DM, anemia, renal stones, schizophrenia Subjective Information Pt seen lying in bed, confused at time of visit. Spoke with RN Dawood, RN reported pt ate well, consumed 60% of breakfast this morning. Per notes, pt has EGD and colonoscopy scheduled tommorrow. Current Diet Order/ Nutrition Support pureed Pertinent Medications D5-0.9ns, novolog, remeron, kcl Pertinent Labs 06/21 Na 137, K 3.5, Cl 100, BUN 24, Cr 1.3, Glucose 186, AST 10, ALT 6, Alb 2.6 06/22 POC 383 Nutritional Hx/Data Height 5 ft Height (Calculated Centimeters) 152.4 Current Weight (lbs) 86 lb Weight (Calculated Kilograms) 39.0 Weight (Calculated Grams) 79864.9 [place] Body Weight 100 % [place] Body Weight 86 Body Mass Index (BMI) 16.7 Weight Status Underweight GI Symptoms GI Symptoms None Last BM none Difficult in: None Skin Integrity/Comment: intact Current %PO Fair (50-74%) Estimated Nutritional Goals Calories/Kcals/Kg 25-30 based on IBW 45kg Kcals Calculated 8288-9340 Protein g/k-1.2 Protein Calculated 45-54 Fluid: ml 1125-1350ml (1ml/kcal) Nutritional Problem 1. Problem Problem altered nutrition related lab values Etiology hx of DM Signs/Symptoms: Glucose 186, POC 383 Malnutrition Alert Protein-Calorie Malnutrition N/A Is there a minimum of two criteria No selected? Query Text:Check all the applicable criteria. A minimum of two criteria are recommended for diagnosis of either severe or non-severe malnutrition. Intervention/Recommendation Comments 1. Recommend CCHO, low sodium diet for optimal glycemic and BP control. RN notified. 2. Monitor PO intake, wt, labs and skin integrity 3. F/U as high risk in 2-3 days, 06/24-06/25 Expected Outcomes/Goals Expected Outcomes/Goals 1. PO intake to meet at least 75% of nutritional needs. 2. Wt stability, skin to remain intact, labs to improve
[2017-07-13] MEDS: Fleet Enema 135 mL RC PRN (16:09)
[2017-07-13] MEDS: TPN 8.5%-70% CUSTOM IV SCH (16:10)
[2017-07-13] MEDS: D5-0.45NS 1,000 ML IV SCH (19:04)
[2017-07-14] MEDS: INSULIN ASPART, RECOMBINANT 100 UNITS/ML SUBQ SCH ×5 (00:10→23:40)
[2017-07-14] MEDS: Albuterol/Ipratropium Neb 3 ML AERS HHN SCH ×4 (01:17→19:21)
[2017-07-14] MEDS: Nitroglycerin 50mg/D5W Premix 50 MG/250 ML INFUS..BTL IV PRN ×4 (03:41→23:18)
[2017-07-14 04:38] LABS: BASOPHILE ABSOLUTE 0.1 Th/cumm (0-0.2); EOSINOPHILE ABSOLUTE 0.1 Th/cmm (0.1-0.4); HEMOGLOBIN 9.1 gm/dL (12-16); MEAN CORPUSCULAR HGB CONC 33.6 pg (28.0-36.0); MONOCYTE ABSOLUTE 0.6 Th/cmm (0.3-1.0)
[2017-07-14 04:42] LABS: % BASOPHILS 0.7 % (0.0-2.0); % EOSINOPHILS 0.7 % (0.0-5.0); % LYMPHOCYTES 22.4 % (20.0-50.0); % MONOCYTES 7.1 % (2.0-10.0); % NEUTROPHILS 69.1 % (40.0-80.0); MEAN CELL VOLUME 84.7 fl (81-100); MEAN CORPUSCULAR HEMOGLOBIN 28.4 pg (27.0-31.0); MEAN PLATELET VOLUME 7.8 fl; PLATELET COUNT 263 Th/cmm (150-400); RED BLOOD COUNT 3.22 Mil/cmm (3.80-5.20); WHITE BLOOD COUNT 8.8 Th/cmm (4.8-10.8)
[2017-07-14 04:53] LABS: ANION GAP 10.7 (7.0-16.0); BUN - UREA NITROGEN 20 mg/dL (7-25); CALCIUM SERUM 8.2 mg/dL (8.6-10.3); CARBON DIOXIDE 28.5 mEq/L (21.0-31.0); CHLORIDE 95 mEq/L (98-107); GLUCOSE 173 mg/dL (70-105); HEMATOCRIT 27.2 % (41.0-60); PHOSPHOROUS 3.6 mg/dL (2.5-5.0); POTASSIUM SERUM 4.2 mEq/L (3.5-5.1); SODIUM SERUM 130 mEq/L (136-145)
--- NOTE | 2017-07-14 08:44 | Diagnostic Imaging Report ---
Head CT without intravenous contrast Indication: Altered level of consciousness Comparison: None Technique: Axial images were obtained from the vertex to the skull base without IV contrast. Coronal reconstructions were made. Total DLP: 673, CTDI35.7 FINDINGS: Images of the brain obtained without contrast demonstrate no evidence of an acute hemorrhage. Atrophy is noted. Diffuse white matter disease is noted. The ventricles and basal cisterns are patent. No mass effect or midline shift. No evidence of a skull fracture or focal soft tissue swelling. Sinusitis is noted. IMPRESSION: No evidence of acute intracranial hemorrhage Diffuse supratentorial white matter disease which is nonspecific and may be due to chronic microvessel ischemia. Atrophy. Sinusitis.
[2017-07-14] MEDS: Lactobacillus Rhamnosus GG 15 Billion CFU CAP.SPRINK PO SCH (09:06)
[2017-07-14] MEDS ORDERED: Nitroglycerin 50mg/D5W Premix 50 MG/250 ML INFUS..BTL IV PRN (09:13)
--- NOTE | 2017-07-14 12:46 | Internal Medicine Prog Note ---
Internal Medicine Subjective - Subjective Service Date: 07/14/17 (patient passed swallow eval- pureed texture diet) Patient seen and examined:: with staff Patient is:: awake, non-verbal (ngt), non-interactive Patient Complaints of:: congestion Per staff patient has:: no adverse event, no episodes of fall, tolerating meds Internal Medicine Objective - Results Result Diagrams: 07/14/17 04:20 07/14/17 04:20 Recent Labs: Laboratory Last Values WBC 8.8 Th/cmm (4.8-10.8) 07/14/17 04:20 RBC 3.22 Mil/cmm (3.80-5.20) L 07/14/17 04:20 Hgb 9.1 gm/dL (12-16) L 07/14/17 04:20 Hct 27.2 % (41.0-60) L D 07/14/17 04:20 MCV 84.7 fl (81-100) 07/14/17 04:20 MCH 28.4 pg (27.0-31.0) 07/14/17 04:20 MCHC Differential 33.6 pg (28.0-36.0) 07/14/17 04:20 RDW 16.0 % (11.5-20.0) 07/14/17 04:20 Plt Count 263 Th/cmm (150-400) 07/14/17 04:20 MPV 7.8 fl 07/14/17 04:20 Neutrophils % 69.1 % (40.0-80.0) 07/14/17 04:20 Band Neutrophils % 2 % (0-10) 07/04/17 04:30 Lymphocytes % 22.4 % (20.0-50.0) 07/14/17 04:20 Monocytes % 7.1 % (2.0-10.0) 07/14/17 04:20 Eosinophils % 0.7 % (0.0-5.0) 07/14/17 04:20 Basophils % 0.7 % (0.0-2.0) 07/14/17 04:20 Neutrophils (Manual) 80 % (40-80) 07/04/17 04:30 Lymphocytes 12 % (20-50) L 07/04/17 04:30 Monocytes 2 % (2-10) 07/04/17 04:30 Eosinophils 4 % (0-5) 07/04/17 04:30 Hypochromia 1+ 07/04/17 04:30 Platelet Estimate ADEQUATE (NORMAL) 07/04/17 04:30 Polychromasia 1+ 07/04/17 04:30 Schistocytes 1+ 07/04/17 04:30 PT 12.0 SECONDS (9.5-11.5) H 07/08/17 04:15 INR 1.14 (0.5-1.4) 07/08/17 04:15 PTT (Actin FS) 25.0 SECONDS (26.0-38.0) L 07/08/17 04:15 D-Dimer 3600 ng/mL (100-400) H 06/21/17 18:20 Specimen Source Arterial 06/28/17 10:55 Sample Site Right Radial 06/28/17 10:55 pH 7.44 (7.35-7.45) 06/28/17 10:55 pCO2 36.0 mmHg (35.0-45.0) 06/28/17 10:55 pO2 100.0 mmHg (80.0-100.0) 06/28/17 10:55 HCO3 25.4 mEq/L (20.0-26.0) 06/28/17 10:55 Base Excess 0.6 mEq/L (-3.0-3.0) 06/28/17 10:55 O2 Saturation 98.0 % (92.0-100.0) 06/28/17 10:55 Rashid Test Positive 06/28/17 10:55 Vent Rate N/A 06/28/17 10:55 Inspired O2 28 06/28/17 10:55 Tidal Volume N/A 06/28/17 10:55 PEEP N/A 06/28/17 10:55 Pressure (ins/psv/peep) N/A 06/28/17 10:55 Critical Value DM 06/28/17 10:55 Sodium 130 mEq/L (136-145) L 07/14/17 04:20 Potassium 4.2 mEq/L (3.5-5.1) 07/14/17 04:20 Chloride 95 mEq/L (98-107) L 07/14/17 04:20 Carbon Dioxide 28.5 mEq/L (21.0-31.0) 07/14/17 04:20 Anion Gap 10.7 (7.0-16.0) 07/14/17 04:20 BUN 20 mg/dL (7-25) 07/14/17 04:20 Creatinine 1.0 mg/dL (0.6-1.2) 07/14/17 04:20 Est GFR ( Amer) TNP 07/14/17 04:20 Est GFR (Non-Af Amer) TNP 07/14/17 04:20 BUN/Creatinine Ratio 20.0 07/14/17 04:20 Glucose 173 mg/dL (70-105) H 07/14/17 04:20 POC Glucose 163 MG/DL (70 - 105) H 07/14/17 06:51 Hemoglobin A1c % 11.7 % (4.0-6.0) H 06/21/17 18:20 Calcium 8.2 mg/dL (8.6-10.3) L 07/14/17 04:20 Phosphorus 3.6 mg/dL (2.5-5.0) 07/14/17 04:20 Magnesium 2.0 mg/dL (1.9-2.7) 07/14/17 04:20 Iron 19 ug/dL (27-139) L 06/22/17 05:20 TIBC 176 ug/dL (250-450) L 06/22/17 05:20 Iron Saturation 11 % (15-55) L 06/22/17 05:20 Unsaturated IBC 157 ug/dL (118-369) 06/22/17 05:20 Ferritin 164 ng/mL (15-150) H 06/22/17 05:20 Total Bilirubin 0.6 mg/dL (0.3-1.0) 07/09/17 04:30 AST 31 U/L (13-39) 07/09/17 04:30 ALT 18 U/L (7-52) 07/09/17 04:30 Alkaline Phosphatase 211 U/L (34-104) H 07/09/17 04:30 Ammonia 38 umol/L (16-53) 07/08/17 04:15 Creatine Kinase 39 U/L (30-223) 06/21/17 18:20 Troponin I 0.01 ng/mL (0.01-0.05) 06/21/17 18:20 B-Natriuretic Peptide 108.0 pg/mL (5.0-100.0) H 07/09/17 04:30 Total Protein 5.0 gm/dL (6.0-8.3) L 07/09/17 04:30 Albumin 1.9 gm/dL (3.7-5.3) L 07/09/17 04:30 Globulin 3.1 gm/dL 07/09/17 04:30 Albumin/Globulin Ratio 0.6 (1.0-1.8) L 07/09/17 04:30 Prealbumin 16 mg/dL (9-32) 07/11/17 04:22 Triglycerides 57 mg/dL (<150) 07/09/17 04:30 Cholesterol 102 mg/dL (<200) 07/11/17 04:22 LDL Cholesterol Direct 65 mg/dL (75-193) L 06/21/17 18:20 HDL Cholesterol 43 mg/dL (23-92) 06/21/17 18:20 Vitamin B12 1797 pg/mL (232-1245) H 07/02/17 03:41 Folic Acid 10.3 ng/mL (>3.0) 07/02/17 03:41 Helicobacter pylori Ab NEGATIVE (NEGATIVE) 07/09/17 14:54 Blood Type O POSITIVE 07/09/17 09:16 Antibody Screen NEGATIVE 07/09/17 09:16 Crossmatch See Detail 07/09/17 09:16 - Physical Exam Vitals and I&O: Vital Signs Temp 97.4 F 07/14/17 08:00 Pulse 91 07/14/17 12:10 Resp 20 07/14/17 12:10 BP 200/100 07/14/17 11:58 Pulse Ox 99 07/14/17 12:10 Intake & Output 07/13/17 07/14/17 07/14/17 18:59 06:59 18:59 Intake Total 3346 1854.667 224.443 Output Total 580 850 Balance 2766 1004.667 224.443 Weight (lbs) 117 lb 116 lb 8 oz Intake: Intake, IV Amount 1546 990.667 224.443 D5-0.45NS 1,000 ml @ 20 990.667 mls/hr IV .Q24H [facility] Rx#: [id number] Dextrose 70% 700 ml Amino 1080 Acids 8.5% 500 ml @ 50 mls/hr IV .Q24H ED Rx#: [id number] Nitroglycerin 50mg/D5W 466 191.333 Premix 50 mg In 250 ml @ Per Protocol IV TITR PRN Rx#:[id number] Nitroglycerin 50mg/D5W 33.11 Premix 50 mg In 250 ml @ Per Protocol IV TITR PRN Rx#:[id number] Oral 0 Tube Feeding 264 TPN/PPN 1800 600 Output: Urine 580 850 Other: # Bowel Movements 1 Stool Characteristics Soft Soft Active Medications: Current Medications Acetaminophen (Tylenol) 650 mg PO Q4H PRN PRN Reason: Pain Or Fever above 101 Stop: 08/20/17 19:40 Al Hydrox/Mg Hydrox/Simethicone (Maalox) 30 ml PO Q6H PRN PRN Reason: Dyspepsia Stop: 08/20/17 19:40 Albuterol Sulfate (Albuterol 2.5mg/3ml Neb Ud) 2.5 mg HHN Q2HRT PRN PRN Reason: Shortness of Breath or Wheeze Stop: 08/20/17 19:40 Last Admin: 07/11/17 05:23 Dose: 2.5 mg Albuterol/Ipratropium (Duoneb Neb) 3 ml HHN Q6HRT [facility] Stop: 08/30/17 18:59 Last Admin: 07/14/17 12:09 Dose: 3 ml Amlodipine Besylate (Norvasc) 10 mg PO DAILY [facility] Stop: 09/06/17 08:59 Last Admin: 07/14/17 09:08 Dose: Not Given Clonidine HCl (Hbjmlsxf-Qxi-5) 1 patch TD We [facility] Stop: 09/11/17 12:59 Last Admin: 07/13/17 14:29 Dose: 1 patch Diltiazem HCl (Cardizem) 20 mg IVP Q4H PRN PRN Reason: HR> 120 Stop: 09/04/17 17:55 Enalaprilat (Vasotec) 1.25 mg IVP Q6HR PRN PRN Reason: SBP 160 mmhg and above Stop: 09/08/17 05:59 Last Admin: 07/12/17 11:41 Dose: 1.25 mg Enalaprilat (Vasotec) 2.5 mg IVP Q4HR [facility] Stop: 09/10/17 15:59 Last Admin: 07/14/17 11:58 Dose: 2.5 mg Guaifenesin (Robitussin) 200 mg PO Q4HR PRN PRN Reason: Cough or Congestion Stop: 08/20/17 19:40 Haloperidol Decanoate (Haldol Dec) 25 mg IM QMONTH [facility] Stop: 08/23/17 09:59 Last Admin: 06/24/17 09:10 Dose: 25 mg Heparin Sodium (Porcine) (Heparin) 5,000 units SUBQ Q12HR [facility] Stop: 09/12/17 08:59 Last Admin: 07/14/17 08:28 Dose: 5,000 units Hydralazine HCl (Apresoline 20 Mg/Ml) 10 mg IV Q6HR PRN PRN Reason: SBP ABOVE 160 Stop: 08/25/17 12:20 Last Admin: 07/13/17 22:42 Dose: 10 mg Cefepime HCl 0.5 gm/ Dextrose 50 mls @ 100 mls/hr IV Q24H [facility] Stop: 09/06/17 13:59 Last Admin: 07/13/17 14:29 Dose: 100 mls/hr Dextrose/Sodium Chloride (D5-0.45ns) 1,000 mls @ 20 mls/hr IV .Q24H [facility] Stop: 09/08/17 09:25 Last Admin: 07/13/17 19:04 Dose: 20 mls/hr Dextrose/ Amino Acids/ (Electrolytes) 1,200 mls @ 50 mls/hr IV .Q24H [facility] Stop: 08/09/17 15:59 Last Admin: 07/13/17 16:10 Dose: 50 mls/hr Nitroglycerin/Dextrose (Nitroglycerin 50mg/Dextrose 5% Premix) 50 mg in 250 mls @ 0 mls/hr IV TITR PRN; Protocol; Per Protocol PRN Reason: BP MAINTENANCE Stop: 09/12/17 09:12 Last Titration: 07/14/17 11:59 Dose: 45 mcg/min, 13.5 mls/hr Insulin Aspart (Novolog) 0 units SUBQ Q6HR ED PRN Reason: Protocol Stop: 09/03/17 00:00 Last Admin: 07/14/17 06:54 Dose: Not Given Ipratropium Richards (Atrovent Neb 0.5mg/2.5ml) 0.5 mg IH Q2HRT PRN PRN Reason: Shortness of Breath or Wheeze Stop: 08/20/17 19:40 Last Admin: 07/11/17 05:23 Dose: 0.5 mg Labetalol HCl (Trandate) 10 mg IVP Q4HR PRN PRN Reason: SBP ABOVE 160 Stop: 09/09/17 13:16 Last Admin: 07/12/17 03:38 Dose: 10 mg Lactobacillus Rhamnosus (Culturelle 15b) 1 each PO DAILY [facility] Stop: 08/30/17 08:59 Last Admin: 07/14/17 09:06 Dose: Not Given Mirtazapine (Remeron) 15 mg PO HS ED PRN Reason: Protocol Stop: 08/20/17 20:59 Last Admin: 07/13/17 21:00 Dose: Not Given Miscellaneous (Probiotic Screen) 1 ea PRN PRN PRN Reason: PROTOCOL Stop: 08/29/17 11:59 Miscellaneous (Tpn Per Pharmacy) 1 [facility] PRN PRN PRN Reason: PROTOCOL Stop: 09/06/17 13:12 Morphine Sulfate (Morphine) 2 mg IVP Q4H PRN PRN Reason: Pain (Severe) Stop: 09/06/17 13:06 Last Admin: 07/09/17 22:21 Dose: 2 mg Nitroglycerin (Nitrostat) 0.4 mg SL Q5MIN PRN PRN Reason: Chest Pain Stop: 08/20/17 19:40 Ondansetron HCl (Zofran Odt) 4 mg PO Q6H PRN PRN Reason: Nausea / Vomiting Stop: 09/04/17 13:12 Pantoprazole Sodium (Protonix) 40 mg IVP BID [facility] Stop: 09/09/17 16:59 Last Admin: 07/14/17 08:28 Dose: 40 mg Sodium Phosphate (Fleet Enema) 135 ml RC PRN PRN PRN Reason: Constipation Stop: 09/10/17 09:36 Last Admin: 07/13/17 16:09 Dose: 135 ml General: weak, demented, thin, bilateral temporal wasting HEENT: NC/AT, PERRLA, thinning hair, other (ngt) Neck: Supple Lungs: rales, ronchi Cardiovascular: RRR, Normal S1, Normal S2, without murmur Abdomen: non-tender, distended Extremities: excoriation, contracture, deformity Neurological: lethargic, unsteady, bedbound - Procedures Procedures: Procedures Procedure Code Date PARTIAL REMOVAL OF COLON 28096 06/21/17 RESECTION OF RIGHT LARGE INTESTINE, OPEN APPROACH [id number] 06/21/17 Internal Medicine Assmt/Plan - Assessment Assessment: acute dvt cecal mass s/p exploratory lap right right hemicolectomy severe anemia dm2 schizophrenia htn psychosis hypokalemia - Plan Plan: may start to feed patient monitor h/h cardiology follow up monitor electrolytes follow up labs in am will follow service loss control consultant recommendations Nutritional Asmnt/Malnutr-PDOC - Dietary Evaluation Malnutrition Findings (Please click <Entered> for more info): Nutritional Asmnt/Malnutrition Start: 06/22/17 18: 04 Text: Status: Complete Freq: Document 06/22/17 18:04 [email or web address] (Rec: 06/22/17 18:15 [id number] [id number]) Nutritional Asmnt/Malnutrition Patient General Information Nutritional Screening High Risk Consult Diagnosis left lower extremity DVT, severe anemia, CHF, HTN Pertinent Medical Hx/Surgical Hx DM, anemia, renal stones, schizophrenia Subjective Information Pt seen lying in bed, confused at time of visit. Spoke with RN Dawood, RN reported pt ate well, consumed 60% of breakfast this morning. Per notes, pt has EGD and colonoscopy scheduled tommorrow. Current Diet Order/ Nutrition Support pureed Pertinent Medications D5-0.9ns, novolog, remeron, kcl Pertinent Labs 06/21 Na 137, K 3.5, Cl 100, BUN 24, Cr 1.3, Glucose 186, AST 10, ALT 6, Alb 2.6 06/22 POC 383 Nutritional Hx/Data Height 5 ft Height (Calculated Centimeters) 152.4 Current Weight (lbs) 86 lb Weight (Calculated Kilograms) 39.0 Weight (Calculated Grams) 47990.9 [place] Body Weight 100 % [place] Body Weight 86 Body Mass Index (BMI) 16.7 Weight Status Underweight GI Symptoms GI Symptoms None Last BM none Difficult in: None Skin Integrity/Comment: intact Current %PO Fair (50-74%) Estimated Nutritional Goals Calories/Kcals/Kg 25-30 based on IBW 45kg Kcals Calculated 5527-5754 Protein g/k-1.2 Protein Calculated 45-54 Fluid: ml 1125-1350ml (1ml/kcal) Nutritional Problem 1. Problem Problem altered nutrition related lab values Etiology hx of DM Signs/Symptoms: Glucose 186, POC 383 Malnutrition Alert Protein-Calorie Malnutrition N/A Is there a minimum of two criteria No selected? Query Text:Check all the applicable criteria. A minimum of two criteria are recommended for diagnosis of either severe or non-severe malnutrition. Intervention/Recommendation Comments 1. Recommend CCHO, low sodium diet for optimal glycemic and BP control. RN notified. 2. Monitor PO intake, wt, labs and skin integrity 3. F/U as high risk in 2-3 days, 06/24-06/25 Expected Outcomes/Goals Expected Outcomes/Goals 1. PO intake to meet at least 75% of nutritional needs. 2. Wt stability, skin to remain intact, labs to improve
--- NOTE | 2017-07-14 15:02 | Diagnostic Imaging Report ---
Bilateral upper extremity DVT study HISTORY: Pain rule out DVT COMPARISON: None Technique: Longitudinal and transverse sonographic images of the bilateral upper extremity veins were obtained with doppler analysis. FINDINGS: Due to patient's right upper extremity PICC line, assessment of the right upper extremity is incomplete as compression and augmentation was not able to be performed. Evaluation of the left side demonstrates patency of the left jugular, subclavian, axial, brachial, basilic, cephalic veins. Compressibility and augmentation is demonstrated with no evidence of DVT formation. IMPRESSION: No evidence of DVT within the left upper extremity venous system Incomplete assessment of the right side due to patient's right upper extremity PICC line.
[2017-07-14] MEDS: TPN 8.5%-70% CUSTOM IV SCH (16:10)
[2017-07-15] MEDS: Albuterol/Ipratropium Neb 3 ML AERS HHN SCH ×4 (00:53→19:19)
[2017-07-15 04:31] LABS: WHITE BLOOD COUNT 7.1 Th/cmm (4.8-10.8)
[2017-07-15 04:38] LABS: MEAN PLATELET VOLUME 8.7 fl; PLATELET COUNT 223 Th/cmm (150-400); RED BLOOD COUNT 2.75 Mil/cmm (3.80-5.20); RED CELL DISTRIBUTION WIDTH 16.4 % (11.5-20.0)
[2017-07-15 04:42] LABS: HEMATOCRIT 23.3 % (41.0-60); HEMOGLOBIN 7.7 gm/dL (12-16)
[2017-07-15 04:43] LABS: MANUAL DIFF REQUIRED? YES
[2017-07-15 04:44] LABS: ALB/GLOB RATIO 0.5 (1.0-1.8); ALBUMIN 1.7 gm/dL (3.7-5.3); ALKALINE PHOSPHATASE 119 U/L (34-104); ANION GAP 8.9 (7.0-16.0); BILIRUBIN,TOTAL 0.4 mg/dL (0.3-1.0); BUN - UREA NITROGEN 20 mg/dL (7-25); CALCIUM SERUM 7.9 mg/dL (8.6-10.3); CHLORIDE 98 mEq/L (98-107); CHOLESTEROL 94 mg/dL (<200); CREATININE - SERUM 1.1 mg/dL (0.6-1.2); GLUCOSE 155 mg/dL (70-105); MAGNESIUM 1.9 mg/dL (1.9-2.7); PHOSPHOROUS 3.3 mg/dL (2.5-5.0); POTASSIUM SERUM 3.9 mEq/L (3.5-5.1); SGOT 16 U/L (13-39); SGPT/ALT 8 U/L (7-52); SODIUM SERUM 135 mEq/L (136-145); TRIGLYCERIDES 88 mg/dL (<150)
[2017-07-15 05:10] LABS: BAND NEUTROPHILE 6 % (0-10); EOSINOPHIL 4 % (0-5); LYMPHOCYTE 20 % (20-50); MONOCYTE 8 % (2-10); NEUTROPHILS 62 % (40-80); PLATELET ESTIMATE ADEQUATE (NORMAL); TOTAL CELLS COUNTED 100
[2017-07-15] MEDS: INSULIN ASPART, RECOMBINANT 100 UNITS/ML SUBQ SCH ×4 (05:49→23:53)
[2017-07-15] MEDS: Lactobacillus Rhamnosus GG 15 Billion CFU CAP.SPRINK PO SCH (09:13)
--- NOTE | 2017-07-15 12:00 | Internal Medicine Prog Note ---
Internal Medicine Subjective - Subjective Service Date: 07/15/17 (abdomen still noted with distention) Patient seen and examined:: with staff Patient is:: awake, non-verbal, non-interactive Patient Complaints of:: congestion Per staff patient has:: no adverse event, no episodes of fall, tolerating meds Internal Medicine Objective - Results Result Diagrams: 07/15/17 04:15 07/15/17 04:15 Recent Labs: Laboratory Last Values WBC 7.1 Th/cmm (4.8-10.8) 07/15/17 04:15 RBC 2.75 Mil/cmm (3.80-5.20) L 07/15/17 04:15 Hgb 7.7 gm/dL (12-16) L* 07/15/17 04:15 Hct 23.3 % (41.0-60) L D 07/15/17 04:15 MCV 85.0 fl (81-100) 07/15/17 04:15 MCH 28.0 pg (27.0-31.0) 07/15/17 04:15 MCHC Differential 33.0 pg (28.0-36.0) 07/15/17 04:15 RDW 16.4 % (11.5-20.0) 07/15/17 04:15 Plt Count 223 Th/cmm (150-400) 07/15/17 04:15 MPV 8.7 fl 07/15/17 04:15 Neutrophils % 69.1 % (40.0-80.0) 07/14/17 04:20 Band Neutrophils % 6 % (0-10) 07/15/17 04:15 Lymphocytes % 22.4 % (20.0-50.0) 07/14/17 04:20 Monocytes % 7.1 % (2.0-10.0) 07/14/17 04:20 Eosinophils % 0.7 % (0.0-5.0) 07/14/17 04:20 Basophils % 0.7 % (0.0-2.0) 07/14/17 04:20 Neutrophils (Manual) 62 % (40-80) 07/15/17 04:15 Lymphocytes 20 % (20-50) 07/15/17 04:15 Monocytes 8 % (2-10) 07/15/17 04:15 Eosinophils 4 % (0-5) 07/15/17 04:15 Hypochromia 1+ 07/04/17 04:30 Platelet Estimate ADEQUATE (NORMAL) 07/15/17 04:15 Polychromasia 1+ 07/04/17 04:30 Schistocytes 1+ 07/04/17 04:30 PT 12.0 SECONDS (9.5-11.5) H 07/08/17 04:15 INR 1.14 (0.5-1.4) 07/08/17 04:15 PTT (Actin FS) 25.0 SECONDS (26.0-38.0) L 07/08/17 04:15 D-Dimer 3600 ng/mL (100-400) H 06/21/17 18:20 Specimen Source Arterial 06/28/17 10:55 Sample Site Right Radial 06/28/17 10:55 pH 7.44 (7.35-7.45) 06/28/17 10:55 pCO2 36.0 mmHg (35.0-45.0) 06/28/17 10:55 pO2 100.0 mmHg (80.0-100.0) 06/28/17 10:55 HCO3 25.4 mEq/L (20.0-26.0) 06/28/17 10:55 Base Excess 0.6 mEq/L (-3.0-3.0) 06/28/17 10:55 O2 Saturation 98.0 % (92.0-100.0) 06/28/17 10:55 Rashid Test Positive 06/28/17 10:55 Vent Rate N/A 06/28/17 10:55 Inspired O2 28 06/28/17 10:55 Tidal Volume N/A 06/28/17 10:55 PEEP N/A 06/28/17 10:55 Pressure (ins/psv/peep) N/A 06/28/17 10:55 Critical Value DM 06/28/17 10:55 Sodium 135 mEq/L (136-145) L 07/15/17 04:15 Potassium 3.9 mEq/L (3.5-5.1) 07/15/17 04:15 Chloride 98 mEq/L (98-107) 07/15/17 04:15 Carbon Dioxide 32.0 mEq/L (21.0-31.0) H 07/15/17 04:15 Anion Gap 8.9 (7.0-16.0) 07/15/17 04:15 BUN 20 mg/dL (7-25) 07/15/17 04:15 Creatinine 1.1 mg/dL (0.6-1.2) 07/15/17 04:15 Est GFR ( Amer) TNP 07/15/17 04:15 Est GFR (Non-Af Amer) TNP 07/15/17 04:15 BUN/Creatinine Ratio 18.2 07/15/17 04:15 Glucose 155 mg/dL (70-105) H 07/15/17 04:15 POC Glucose 235 MG/DL (70 - 105) H 07/14/17 23:31 Hemoglobin A1c % 11.7 % (4.0-6.0) H 06/21/17 18:20 Calcium 7.9 mg/dL (8.6-10.3) L 07/15/17 04:15 Phosphorus 3.3 mg/dL (2.5-5.0) 07/15/17 04:15 Magnesium 1.9 mg/dL (1.9-2.7) 07/15/17 04:15 Iron 19 ug/dL (27-139) L 06/22/17 05:20 TIBC 176 ug/dL (250-450) L 06/22/17 05:20 Iron Saturation 11 % (15-55) L 06/22/17 05:20 Unsaturated IBC 157 ug/dL (118-369) 06/22/17 05:20 Ferritin 164 ng/mL (15-150) H 06/22/17 05:20 Total Bilirubin 0.4 mg/dL (0.3-1.0) 07/15/17 04:15 AST 16 U/L (13-39) 07/15/17 04:15 ALT 8 U/L (7-52) 07/15/17 04:15 Alkaline Phosphatase 119 U/L (34-104) H 07/15/17 04:15 Ammonia 38 umol/L (16-53) 07/08/17 04:15 Creatine Kinase 39 U/L (30-223) 06/21/17 18:20 Troponin I 0.01 ng/mL (0.01-0.05) 06/21/17 18:20 B-Natriuretic Peptide 108.0 pg/mL (5.0-100.0) H 07/09/17 04:30 Total Protein 5.0 gm/dL (6.0-8.3) L 07/15/17 04:15 Albumin 1.7 gm/dL (3.7-5.3) L 07/15/17 04:15 Globulin 3.3 gm/dL 07/15/17 04:15 Albumin/Globulin Ratio 0.5 (1.0-1.8) L 07/15/17 04:15 Prealbumin 16 mg/dL (9-32) 07/11/17 04:22 Triglycerides 88 mg/dL (<150) 07/15/17 04:15 Cholesterol 94 mg/dL (<200) 07/15/17 04:15 LDL Cholesterol Direct 65 mg/dL (75-193) L 06/21/17 18:20 HDL Cholesterol 43 mg/dL (23-92) 06/21/17 18:20 Vitamin B12 1797 pg/mL (232-1245) H 07/02/17 03:41 Folic Acid 10.3 ng/mL (>3.0) 07/02/17 03:41 Helicobacter pylori Ab NEGATIVE (NEGATIVE) 07/09/17 14:54 Blood Type O POSITIVE 07/09/17 09:16 Antibody Screen NEGATIVE 07/09/17 09:16 Crossmatch See Detail 07/09/17 09:16 - Physical Exam Vitals and I&O: Vital Signs Temp 98.4 F 07/15/17 08:00 Pulse 71 07/15/17 11:15 Resp 20 07/15/17 11:00 BP 111/50 07/15/17 11:15 Pulse Ox 100 07/15/17 11:00 Intake & Output 07/14/17 07/15/17 07/15/17 18:59 06:59 18:59 Intake Total 2139.948 1652.169 43.65 Output Total 850 1200 Balance 1289.948 452.169 43.65 Weight (lbs) 167 lb 167 lb 1 oz Intake: Intake, IV Amount 1840.931 6420.169 43.65 Cefepime 0.5 gm In 50 Dextrose 5% 50 ml @ 100 mls/hr IV Q24H ED Rx#: [id number] D5-0.45NS 1,000 ml @ 20 698.667 mls/hr IV .Q24H ED Rx#: [id number] Dextrose 70% 700 ml Amino 1200 691.667 Acids 8.5% 500 ml @ 50 mls/hr IV .Q24H [facility] Rx#: [id number] Nitroglycerin 50mg/D5W 191.333 Premix 50 mg In 250 ml @ Per Protocol IV TITR PRN Rx#:[id number] Nitroglycerin 50mg/D5W 58.615 161.835 43.65 Premix 50 mg In 250 ml @ Per Protocol IV TITR PRN Rx#:[id number] Oral 40 100 TPN/PPN 600 Output: Urine 850 1200 Other: # Bowel Movements 0 0 Active Medications: Current Medications Acetaminophen (Tylenol) 650 mg PO Q4H PRN PRN Reason: Pain Or Fever above 101 Stop: 08/20/17 19:40 Al Hydrox/Mg Hydrox/Simethicone (Maalox) 30 ml PO Q6H PRN PRN Reason: Dyspepsia Stop: 08/20/17 19:40 Albuterol Sulfate (Albuterol 2.5mg/3ml Neb Ud) 2.5 mg HHN Q2HRT PRN PRN Reason: Shortness of Breath or Wheeze Stop: 08/20/17 19:40 Last Admin: 07/11/17 05:23 Dose: 2.5 mg Albuterol/Ipratropium (Duoneb Neb) 3 ml HHN Q6HRT [facility] Stop: 08/30/17 18:59 Last Admin: 07/15/17 07:13 Dose: 3 ml Amlodipine Besylate (Norvasc) 10 mg PO DAILY [facility] Stop: 09/06/17 08:59 Last Admin: 07/15/17 09:13 Dose: 10 mg Clonidine HCl ([id number]-1) 1 patch TD We [facility] Stop: 09/11/17 12:59 Last Admin: 07/13/17 14:29 Dose: 1 patch Diltiazem HCl (Cardizem) 20 mg IVP Q4H PRN PRN Reason: HR> 120 Stop: 09/04/17 17:55 Enalaprilat (Vasotec) 1.25 mg IVP Q6HR PRN PRN Reason: SBP 160 mmhg and above Stop: 09/08/17 05:59 Last Admin: 07/12/17 11:41 Dose: 1.25 mg Enalaprilat (Vasotec) 2.5 mg IVP Q4HR [facility] Stop: 09/10/17 15:59 Last Admin: 07/15/17 09:14 Dose: 2.5 mg Guaifenesin (Robitussin) 200 mg PO Q4HR PRN PRN Reason: Cough or Congestion Stop: 08/20/17 19:40 Haloperidol Decanoate (Haldol Dec) 25 mg IM QMONTH ED Stop: 08/23/17 09:59 Last Admin: 06/24/17 09:10 Dose: 25 mg Heparin Sodium (Porcine) (Heparin) 5,000 units SUBQ Q12HR [facility] Stop: 09/12/17 08:59 Last Admin: 07/15/17 09:14 Dose: Not Given Hydralazine HCl (Apresoline 20 Mg/Ml) 10 mg IV Q6HR PRN PRN Reason: SBP ABOVE 160 Stop: 08/25/17 12:20 Last Admin: 07/13/17 22:42 Dose: 10 mg Cefepime HCl 0.5 gm/ Dextrose 50 mls @ 100 mls/hr IV Q24H [facility] Stop: 09/06/17 13:59 Last Infusion: 07/14/17 14:40 Dose: Infused Dextrose/Sodium Chloride (D5-0.45ns) 1,000 mls @ 20 mls/hr IV .Q24H [facility] Stop: 09/08/17 09:25 Last Infusion: 07/15/17 06:00 Dose: 20 mls/hr Dextrose/ Amino Acids/ (Electrolytes) 1,200 mls @ 50 mls/hr IV .Q24H [facility] Stop: 08/09/17 15:59 Last Infusion: 07/15/17 06:00 Dose: 50 mls/hr Nitroglycerin/Dextrose (Nitroglycerin 50mg/Dextrose 5% Premix) 50 mg in 250 mls @ 0 mls/hr IV TITR PRN; Protocol; Per Protocol PRN Reason: BP MAINTENANCE Stop: 09/12/17 09:12 Last Titration: 07/15/17 09:14 Dose: 43 mcg/min, 12.9 mls/hr Insulin Aspart (Novolog) 0 units SUBQ Q6HR ED PRN Reason: Protocol Stop: 09/03/17 00:00 Last Admin: 07/15/17 05:49 Dose: Not Given Ipratropium [place] (Atrovent Neb 0.5mg/2.5ml) 0.5 mg IH Q2HRT PRN PRN Reason: Shortness of Breath or Wheeze Stop: 08/20/17 19:40 Last Admin: 07/11/17 05:23 Dose: 0.5 mg Labetalol HCl (Trandate) 10 mg IVP Q4HR PRN PRN Reason: SBP ABOVE 160 Stop: 09/09/17 13:16 Last Admin: 07/12/17 03:38 Dose: 10 mg Lactobacillus Rhamnosus (Culturelle 15b) 1 each PO DAILY ED Stop: 08/30/17 08:59 Last Admin: 07/15/17 09:13 Dose: 1 each Mirtazapine (Remeron) 15 mg PO HS ED PRN Reason: Protocol Stop: 08/20/17 20:59 Last Admin: 07/14/17 20:39 Dose: 15 mg Miscellaneous (Probiotic Screen) 1 ea PRN PRN PRN Reason: PROTOCOL Stop: 08/29/17 11:59 Miscellaneous (Tpn Per Pharmacy) 1 ea PRN PRN PRN Reason: PROTOCOL Stop: 09/06/17 13:12 Morphine Sulfate (Morphine) 2 mg IVP Q4H PRN PRN Reason: Pain (Severe) Stop: 09/06/17 13:06 Last Admin: 07/09/17 22:21 Dose: 2 mg Nitroglycerin (Nitrostat) 0.4 mg SL Q5MIN PRN PRN Reason: Chest Pain Stop: 08/20/17 19:40 Ondansetron HCl (Zofran Odt) 4 mg PO Q6H PRN PRN Reason: Nausea / Vomiting Stop: 09/04/17 13:12 Pantoprazole Sodium (Protonix) 40 mg IVP BID ED Stop: 09/09/17 16:59 Last Admin: 07/15/17 09:13 Dose: 40 mg Sodium Phosphate (Fleet Enema) 135 ml RC PRN PRN PRN Reason: Constipation Stop: 09/10/17 09:36 Last Admin: 07/13/17 16:09 Dose: 135 ml General: weak, demented, thin, bilateral temporal wasting HEENT: NC/AT, PERRLA, thinning hair, other (ngt) Neck: Supple Lungs: rales, ronchi Cardiovascular: RRR, Normal S1, Normal S2, without murmur Abdomen: non-tender, distended Extremities: excoriation, contracture, deformity Neurological: lethargic, unsteady, bedbound - Procedures Procedures: Procedures Procedure Code Date PARTIAL REMOVAL OF COLON 31724 06/21/17 RESECTION OF RIGHT LARGE INTESTINE, OPEN APPROACH [id number] 06/21/17 Internal Medicine Assmt/Plan - Assessment Assessment: acute dvt cecal mass s/p exploratory lap right right hemicolectomy severe anemia dm2 schizophrenia htn psychosis hypokalemia - Plan Plan: patient may benefit from peg monitor h/h cardiology follow up monitor electrolytes follow up labs in am will follow behavioral health consultant recommendations Nutritional Asmnt/Malnutr-PDOC - Dietary Evaluation Malnutrition Findings (Please click <Entered> for more info): Nutritional Asmnt/Malnutrition Start: 06/22/17 18: 04 Text: Status: Complete Freq: Document 06/22/17 18:04 JENY (Rec: 06/22/17 18:15 [email or web address] Nutritional Asmnt/Malnutrition Patient General Information Nutritional Screening High Risk Consult Diagnosis left lower extremity DVT, severe anemia, CHF, HTN Pertinent Medical Hx/Surgical Hx DM, anemia, renal stones, schizophrenia Subjective Information Pt seen lying in bed, confused at time of visit. Spoke with LULÚ Seay, RN reported pt ate well, consumed 60% of breakfast this morning. Per notes, pt has EGD and colonoscopy scheduled tommorrow. Current Diet Order/ Nutrition Support pureed Pertinent Medications D5-0.9ns, novolog, remeron, kcl Pertinent Labs 06/21 Na 137, K 3.5, Cl 100, BUN 24, Cr 1.3, Glucose 186, AST 10, ALT 6, Alb 2.6 06/22 POC 383 Nutritional Hx/Data Height 5 ft Height (Calculated Centimeters) 152.4 Current Weight (lbs) 86 lb Weight (Calculated Kilograms) 39.0 Weight (Calculated Grams) 83677.9 [place] Body Weight 100 % [place] Body Weight 86 Body Mass Index (BMI) 16.7 Weight Status Underweight GI Symptoms GI Symptoms None Last BM none Difficult in: None Skin Integrity/Comment: intact Current %PO Fair (50-74%) Estimated Nutritional Goals Calories/Kcals/Kg 25-30 based on IBW 45kg Kcals Calculated 8106-6542 Protein g/k-1.2 Protein Calculated 45-54 Fluid: ml 1125-1350ml (1ml/kcal) Nutritional Problem 1. Problem Problem altered nutrition related lab values Etiology hx of DM Signs/Symptoms: Glucose 186, POC 383 Malnutrition Alert Protein-Calorie Malnutrition N/A Is there a minimum of two criteria No selected? Query Text:Check all the applicable criteria. A minimum of two criteria are recommended for diagnosis of either severe or non-severe malnutrition. Intervention/Recommendation Comments 1. Recommend CCHO, low sodium diet for optimal glycemic and BP control. RN notified. 2. Monitor PO intake, wt, labs and skin integrity 3. F/U as high risk in 2-3 days, 06/24-06/25 Expected Outcomes/Goals Expected Outcomes/Goals 1. PO intake to meet at least 75% of nutritional needs. 2. Wt stability, skin to remain intact, labs to improve
[2017-07-15] MEDS: Fleet Enema 135 mL RC PRN (14:15)
--- NOTE | 2017-07-15 14:33 | General Progress Note ---
Subjective - Review of Systems Service Date: 07/15/17 Objective - Results Result Diagrams: 07/15/17 04:15 07/15/17 04:15 Recent Labs: Laboratory Last Values WBC 7.1 Th/cmm (4.8-10.8) 07/15/17 04:15 RBC 2.75 Mil/cmm (3.80-5.20) L 07/15/17 04:15 Hgb 7.7 gm/dL (12-16) L* 07/15/17 04:15 Hct 23.3 % (41.0-60) L D 07/15/17 04:15 MCV 85.0 fl (81-100) 07/15/17 04:15 MCH 28.0 pg (27.0-31.0) 07/15/17 04:15 MCHC Differential 33.0 pg (28.0-36.0) 07/15/17 04:15 RDW 16.4 % (11.5-20.0) 07/15/17 04:15 Plt Count 223 Th/cmm (150-400) 07/15/17 04:15 MPV 8.7 fl 07/15/17 04:15 Neutrophils % 69.1 % (40.0-80.0) 07/14/17 04:20 Band Neutrophils % 6 % (0-10) 07/15/17 04:15 Lymphocytes % 22.4 % (20.0-50.0) 07/14/17 04:20 Monocytes % 7.1 % (2.0-10.0) 07/14/17 04:20 Eosinophils % 0.7 % (0.0-5.0) 07/14/17 04:20 Basophils % 0.7 % (0.0-2.0) 07/14/17 04:20 Neutrophils (Manual) 62 % (40-80) 07/15/17 04:15 Lymphocytes 20 % (20-50) 07/15/17 04:15 Monocytes 8 % (2-10) 07/15/17 04:15 Eosinophils 4 % (0-5) 07/15/17 04:15 Hypochromia 1+ 07/04/17 04:30 Platelet Estimate ADEQUATE (NORMAL) 07/15/17 04:15 Polychromasia 1+ 07/04/17 04:30 Schistocytes 1+ 07/04/17 04:30 PT 12.0 SECONDS (9.5-11.5) H 07/08/17 04:15 INR 1.14 (0.5-1.4) 07/08/17 04:15 PTT (Actin FS) 25.0 SECONDS (26.0-38.0) L 07/08/17 04:15 D-Dimer 3600 ng/mL (100-400) H 06/21/17 18:20 Specimen Source Arterial 06/28/17 10:55 Sample Site Right Radial 06/28/17 10:55 pH 7.44 (7.35-7.45) 06/28/17 10:55 pCO2 36.0 mmHg (35.0-45.0) 06/28/17 10:55 pO2 100.0 mmHg (80.0-100.0) 06/28/17 10:55 HCO3 25.4 mEq/L (20.0-26.0) 06/28/17 10:55 Base Excess 0.6 mEq/L (-3.0-3.0) 06/28/17 10:55 O2 Saturation 98.0 % (92.0-100.0) 06/28/17 10:55 Rashid Test Positive 06/28/17 10:55 Vent Rate N/A 06/28/17 10:55 Inspired O2 28 06/28/17 10:55 Tidal Volume N/A 06/28/17 10:55 PEEP N/A 06/28/17 10:55 Pressure (ins/psv/peep) N/A 06/28/17 10:55 Critical Value DM 06/28/17 10:55 Sodium 135 mEq/L (136-145) L 07/15/17 04:15 Potassium 3.9 mEq/L (3.5-5.1) 07/15/17 04:15 Chloride 98 mEq/L (98-107) 07/15/17 04:15 Carbon Dioxide 32.0 mEq/L (21.0-31.0) H 07/15/17 04:15 Anion Gap 8.9 (7.0-16.0) 07/15/17 04:15 BUN 20 mg/dL (7-25) 07/15/17 04:15 Creatinine 1.1 mg/dL (0.6-1.2) 07/15/17 04:15 Est GFR ( Amer) TNP 07/15/17 04:15 Est GFR (Non-Af Amer) TNP 07/15/17 04:15 BUN/Creatinine Ratio 18.2 07/15/17 04:15 Glucose 155 mg/dL (70-105) H 07/15/17 04:15 POC Glucose 178 MG/DL (70 - 105) H 07/15/17 12:07 Hemoglobin A1c % 11.7 % (4.0-6.0) H 06/21/17 18:20 Calcium 7.9 mg/dL (8.6-10.3) L 07/15/17 04:15 Phosphorus 3.3 mg/dL (2.5-5.0) 07/15/17 04:15 Magnesium 1.9 mg/dL (1.9-2.7) 07/15/17 04:15 Iron 19 ug/dL (27-139) L 06/22/17 05:20 TIBC 176 ug/dL (250-450) L 06/22/17 05:20 Iron Saturation 11 % (15-55) L 06/22/17 05:20 Unsaturated IBC 157 ug/dL (118-369) 06/22/17 05:20 Ferritin 164 ng/mL (15-150) H 06/22/17 05:20 Total Bilirubin 0.4 mg/dL (0.3-1.0) 07/15/17 04:15 AST 16 U/L (13-39) 07/15/17 04:15 ALT 8 U/L (7-52) 07/15/17 04:15 Alkaline Phosphatase 119 U/L (34-104) H 07/15/17 04:15 Ammonia 38 umol/L (16-53) 07/08/17 04:15 Creatine Kinase 39 U/L (30-223) 06/21/17 18:20 Troponin I 0.01 ng/mL (0.01-0.05) 06/21/17 18:20 B-Natriuretic Peptide 108.0 pg/mL (5.0-100.0) H 07/09/17 04:30 Total Protein 5.0 gm/dL (6.0-8.3) L 07/15/17 04:15 Albumin 1.7 gm/dL (3.7-5.3) L 07/15/17 04:15 Globulin 3.3 gm/dL 07/15/17 04:15 Albumin/Globulin Ratio 0.5 (1.0-1.8) L 07/15/17 04:15 Prealbumin 16 mg/dL (9-32) 07/11/17 04:22 Triglycerides 88 mg/dL (<150) 07/15/17 04:15 Cholesterol 94 mg/dL (<200) 07/15/17 04:15 LDL Cholesterol Direct 65 mg/dL (75-193) L 06/21/17 18:20 HDL Cholesterol 43 mg/dL (23-92) 06/21/17 18:20 Vitamin B12 1797 pg/mL (232-1245) H 07/02/17 03:41 Folic Acid 10.3 ng/mL (>3.0) 07/02/17 03:41 Helicobacter pylori Ab NEGATIVE (NEGATIVE) 07/09/17 14:54 Blood Type O POSITIVE 07/09/17 09:16 Antibody Screen NEGATIVE 07/09/17 09:16 Crossmatch See Detail 07/09/17 09:16 - Physical Exam Vitals and I&O: Vital Signs Temp 98.1 F 07/15/17 12:00 Pulse 88 07/15/17 14:11 Resp 14 07/15/17 13:00 BP 153/80 07/15/17 14:01 Pulse Ox 98 07/15/17 13:00 Intake & Output 07/14/17 07/15/17 07/15/17 18:59 06:59 18:59 Intake Total 2139.948 1652.169 43.65 Output Total 850 1200 Balance 1289.948 452.169 43.65 Weight (lbs) 75.75 kg 75.778 kg Intake: Intake, IV Amount 3276.934 1739.169 43.65 Cefepime 0.5 gm In 50 Dextrose 5% 50 ml @ 100 mls/hr IV Q24H ED Rx#: [id number] D5-0.45NS 1,000 ml @ 20 698.667 mls/hr IV .Q24H ED Rx#: [id number] Dextrose 70% 700 ml Amino 1200 691.667 Acids 8.5% 500 ml @ 50 mls/hr IV .Q24H ED Rx#: [id number] Nitroglycerin 50mg/D5W 191.333 Premix 50 mg In 250 ml @ Per Protocol IV TITR PRN Rx#:[id number] Nitroglycerin 50mg/D5W 58.615 161.835 43.65 Premix 50 mg In 250 ml @ Per Protocol IV TITR PRN Rx#:[id number] Oral 40 100 TPN/PPN 600 Output: Urine 850 1200 Other: # Bowel Movements 0 0 Active Medications: Current Medications Acetaminophen (Tylenol) 650 mg PO Q4H PRN PRN Reason: Pain Or Fever above 101 Stop: 08/20/17 19:40 Al Hydrox/Mg Hydrox/Simethicone (Maalox) 30 ml PO Q6H PRN PRN Reason: Dyspepsia Stop: 08/20/17 19:40 Albuterol Sulfate (Albuterol 2.5mg/3ml Neb Ud) 2.5 mg HHN Q2HRT PRN PRN Reason: Shortness of Breath or Wheeze Stop: 08/20/17 19:40 Last Admin: 07/11/17 05:23 Dose: 2.5 mg Albuterol/Ipratropium (Duoneb Neb) 3 ml HHN Q6HRT [facility] Stop: 08/30/17 18:59 Last Admin: 07/15/17 12:26 Dose: 3 ml Amlodipine Besylate (Norvasc) 10 mg PO DAILY [facility] Stop: 09/06/17 08:59 Last Admin: 07/15/17 09:13 Dose: 10 mg Bisacodyl (Dulcolax 10 Mg Supp) 10 mg RC DAILY [facility] Stop: 07/18/17 14:14 Diltiazem HCl (Cardizem) 20 mg IVP Q4H PRN PRN Reason: HR> 120 Stop: 09/04/17 17:55 Enalaprilat (Vasotec) 1.25 mg IVP Q6HR PRN PRN Reason: SBP 160 mmhg and above Stop: 09/08/17 05:59 Last Admin: 07/12/17 11:41 Dose: 1.25 mg Enalaprilat (Vasotec) 2.5 mg IVP Q4HR [facility] Stop: 09/10/17 15:59 Last Admin: 07/15/17 13:01 Dose: 2.5 mg Guaifenesin (Robitussin) 200 mg PO Q4HR PRN PRN Reason: Cough or Congestion Stop: 08/20/17 19:40 Haloperidol Decanoate (Haldol Dec) 25 mg IM QMONTH [facility] Stop: 08/23/17 09:59 Last Admin: 06/24/17 09:10 Dose: 25 mg Hydralazine HCl (Apresoline 20 Mg/Ml) 10 mg IV Q6HR PRN PRN Reason: SBP ABOVE 160 Stop: 08/25/17 12:20 Last Admin: 07/13/17 22:42 Dose: 10 mg Cefepime HCl 0.5 gm/ Dextrose 50 mls @ 100 mls/hr IV Q24H [facility] Stop: 09/06/17 13:59 Last Admin: 07/15/17 14:26 Dose: 100 mls/hr Dextrose/Sodium Chloride (D5-0.45ns) 1,000 mls @ 20 mls/hr IV .Q24H [facility] Stop: 09/08/17 09:25 Last Infusion: 07/15/17 06:00 Dose: 20 mls/hr Dextrose/ Amino Acids/ (Electrolytes) 1,200 mls @ 50 mls/hr IV .Q24H [facility] Stop: 08/09/17 15:59 Last Infusion: 07/15/17 06:00 Dose: 50 mls/hr Nitroglycerin/Dextrose (Nitroglycerin 50mg/Dextrose 5% Premix) 50 mg in 250 mls @ 0 mls/hr IV TITR PRN; Protocol; Per Protocol PRN Reason: BP MAINTENANCE Stop: 09/12/17 09:12 Last Titration: 07/15/17 09:14 Dose: 43 mcg/min, 12.9 mls/hr Insulin Aspart (Novolog) 0 units SUBQ Q6HR ED PRN Reason: Protocol Stop: 09/03/17 00:00 Last Admin: 07/15/17 12:10 Dose: Not Given Ipratropium [place] (Atrovent Neb 0.5mg/2.5ml) 0.5 mg IH Q2HRT PRN PRN Reason: Shortness of Breath or Wheeze Stop: 08/20/17 19:40 Last Admin: 07/11/17 05:23 Dose: 0.5 mg Labetalol HCl (Trandate) 10 mg IVP Q4HR PRN PRN Reason: SBP ABOVE 160 Stop: 09/09/17 13:16 Last Admin: 07/12/17 03:38 Dose: 10 mg Lactobacillus Rhamnosus (Culturelle 15b) 1 each PO DAILY [facility] Stop: 08/30/17 08:59 Last Admin: 07/15/17 09:13 Dose: 1 each Losartan Potassium (Cozaar) 100 mg PO DAILY [facility] Stop: 09/13/17 15:59 Mirtazapine (Remeron) 15 mg PO HS ED PRN Reason: Protocol Stop: 08/20/17 20:59 Last Admin: 07/14/17 20:39 Dose: 15 mg Miscellaneous (Probiotic Screen) 1 ea PRN PRN PRN Reason: PROTOCOL Stop: 08/29/17 11:59 Miscellaneous (Tpn Per Pharmacy) 1 [facility] PRN PRN PRN Reason: PROTOCOL Stop: 09/06/17 13:12 Morphine Sulfate (Morphine) 2 mg IVP Q4H PRN PRN Reason: Pain (Severe) Stop: 09/06/17 13:06 Last Admin: 07/09/17 22:21 Dose: 2 mg Nitroglycerin (Nitrostat) 0.4 mg SL Q5MIN PRN PRN Reason: Chest Pain Stop: 08/20/17 19:40 Ondansetron HCl (Zofran Odt) 4 mg PO Q6H PRN PRN Reason: Nausea / Vomiting Stop: 09/04/17 13:12 Pantoprazole Sodium (Protonix) 40 mg IVP BID [facility] Stop: 09/09/17 16:59 Last Admin: 07/15/17 09:13 Dose: 40 mg Sodium Phosphate (Fleet Enema) 135 ml RC PRN PRN PRN Reason: Constipation Stop: 09/10/17 09:36 Last Admin: 07/15/17 14:15 Dose: 135 ml General: Other HEENT: Atraumatic Neck: Supple Cardiovascular: Regular rate Abdomen: Bowel sounds, Soft, Other (dressing in midline no bleeding) Extremities: Other (right arm picc) - Procedures Procedures: Procedures Procedure Code Date PARTIAL REMOVAL OF COLON 08583 06/21/17 RESECTION OF RIGHT LARGE INTESTINE, OPEN APPROACH [id number] 06/21/17 Assessment/Plan - Assessment Assessment: * DVT * ANEMIA secondary to GI bleeding * CKD * 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 No Xarelto was given confirmed with pharmacy. monitor cbc Path. discussed with pathologist. no invasion. no transfusion today Nutritional Asmnt/Malnutr-PDOC - Dietary Evaluation Malnutrition Findings (Please click <Entered> for more info): Nutritional Asmnt/Malnutrition Start: 06/22/17 18: 04 Text: Status: Complete Freq: Document 06/22/17 18:04 [facility] (Rec: 06/22/17 18:15 HEN [email or web address]) Nutritional Asmnt/Malnutrition Patient General Information Nutritional Screening High Risk Consult Diagnosis left lower extremity DVT, severe anemia, CHF, HTN Pertinent Medical Hx/Surgical Hx DM, anemia, renal stones, schizophrenia Subjective Information Pt seen lying in bed, confused at time of visit. Spoke with LULÚ Seay, RN reported pt ate well, consumed 60% of breakfast this morning. Per notes, pt has EGD and colonoscopy scheduled tommorrow. Current Diet Order/ Nutrition Support pureed Pertinent Medications D5-0.9ns, novolog, remeron, kcl Pertinent Labs 06/21 Na 137, K 3.5, Cl 100, BUN 24, Cr 1.3, Glucose 186, AST 10, ALT 6, Alb 2.6 06/22 POC 383 Nutritional Hx/Data Height 1.52 m Height (Calculated Centimeters) 152.4 Current Weight (lbs) 39.009 kg Weight (Calculated Kilograms) 39.0 Weight (Calculated Grams) 74785.9 [place] Body Weight 100 % [place] Body Weight 86 Body Mass Index (BMI) 16.7 Weight Status Underweight GI Symptoms GI Symptoms None Last BM none Difficult in: None Skin Integrity/Comment: intact Current %PO Fair (50-74%) Estimated Nutritional Goals Calories/Kcals/Kg 25-30 based on IBW 45kg Kcals Calculated 6669-1968 Protein g/k-1.2 Protein Calculated 45-54 Fluid: ml 1125-1350ml (1ml/kcal) Nutritional Problem 1. Problem Problem altered nutrition related lab values Etiology hx of DM Signs/Symptoms: Glucose 186, POC 383 Malnutrition Alert Protein-Calorie Malnutrition N/A Is there a minimum of two criteria No selected? Query Text:Check all the applicable criteria. A minimum of two criteria are recommended for diagnosis of either severe or non-severe malnutrition. Intervention/Recommendation Comments 1. Recommend CCHO, low sodium diet for optimal glycemic and BP control. RN notified. 2. Monitor PO intake, wt, labs and skin integrity 3. F/U as high risk in 2-3 days, 06/24-06/25 Expected Outcomes/Goals Expected Outcomes/Goals 1. PO intake to meet at least 75% of nutritional needs. 2. Wt stability, skin to remain intact, labs to improve
[2017-07-15] MEDS: TPN 8.5%-70% CUSTOM IV SCH (15:48)
[2017-07-15] MEDS: D5-0.45NS 1,000 ML IV SCH (15:57)
[2017-07-15] MEDS: Nitroglycerin 50mg/D5W Premix 50 MG/250 ML INFUS..BTL IV PRN (20:27)
[2017-07-16] MEDS: Albuterol/Ipratropium Neb 3 ML AERS HHN SCH ×4 (01:15→18:48)
[2017-07-16 04:32] LABS: % BASOPHILS 0.7 % (0.0-2.0); % EOSINOPHILS 1.9 % (0.0-5.0); % LYMPHOCYTES 27.7 % (20.0-50.0); % MONOCYTES 10.1 % (2.0-10.0); % NEUTROPHILS 59.6 % (40.0-80.0); BASOPHILE ABSOLUTE 0.1 Th/cumm (0-0.2); EOSINOPHILE ABSOLUTE 0.1 Th/cmm (0.1-0.4); HEMATOCRIT 23.7 % (41.0-60); MEAN CELL VOLUME 84.4 fl (81-100); MEAN CORPUSCULAR HEMOGLOBIN 28.2 pg (27.0-31.0); MEAN CORPUSCULAR HGB CONC 33.4 pg (28.0-36.0); MEAN PLATELET VOLUME 8.3 fl; MONOCYTE ABSOLUTE 0.7 Th/cmm (0.3-1.0); NEUTROPHILE ABSOLUTE 4.4 Th/cmm (1.8-8.0); PLATELET COUNT 205 Th/cmm (150-400); RED BLOOD COUNT 2.81 Mil/cmm (3.80-5.20); RED CELL DISTRIBUTION WIDTH 16.1 % (11.5-20.0); WHITE BLOOD COUNT 7.3 Th/cmm (4.8-10.8)
[2017-07-16 04:37] LABS: HEMOGLOBIN 7.9 gm/dL (12-16)
[2017-07-16 04:45] LABS: ANION GAP 2.7 (7.0-16.0); BUN - UREA NITROGEN 20 mg/dL (7-25); CARBON DIOXIDE 34.2 mEq/L (21.0-31.0); CHLORIDE 102 mEq/L (98-107); GLUCOSE 177 mg/dL (70-105); PHOSPHOROUS 3.3 mg/dL (2.5-5.0); POTASSIUM SERUM 3.9 mEq/L (3.5-5.1); SODIUM SERUM 135 mEq/L (136-145)
[2017-07-16] MEDS: INSULIN ASPART, RECOMBINANT 100 UNITS/ML SUBQ SCH ×3 (05:30→17:35)
[2017-07-16] MEDS: Lactobacillus Rhamnosus GG 15 Billion CFU CAP.SPRINK PO SCH (08:35)
--- NOTE | 2017-07-16 08:42 | GI Progress Note ---
Subjective - Review of Systems Service Date: 07/16/17 Subjective: Eating now, doing better Objective - Results Result Diagrams: 07/16/17 04:15 07/16/17 04:15 Recent Labs: Laboratory Last Values WBC 7.3 Th/cmm (4.8-10.8) 07/16/17 04:15 RBC 2.81 Mil/cmm (3.80-5.20) L 07/16/17 04:15 Hgb 7.9 gm/dL (12-16) L* 07/16/17 04:15 Hct 23.7 % (41.0-60) L 07/16/17 04:15 MCV 84.4 fl (81-100) 07/16/17 04:15 MCH 28.2 pg (27.0-31.0) 07/16/17 04:15 MCHC Differential 33.4 pg (28.0-36.0) 07/16/17 04:15 RDW 16.1 % (11.5-20.0) 07/16/17 04:15 Plt Count 205 Th/cmm (150-400) 07/16/17 04:15 MPV 8.3 fl 07/16/17 04:15 Neutrophils % 59.6 % (40.0-80.0) 07/16/17 04:15 Band Neutrophils % 6 % (0-10) 07/15/17 04:15 Lymphocytes % 27.7 % (20.0-50.0) 07/16/17 04:15 Monocytes % 10.1 % (2.0-10.0) H 07/16/17 04:15 Eosinophils % 1.9 % (0.0-5.0) 07/16/17 04:15 Basophils % 0.7 % (0.0-2.0) 07/16/17 04:15 Neutrophils (Manual) 62 % (40-80) 07/15/17 04:15 Lymphocytes 20 % (20-50) 07/15/17 04:15 Monocytes 8 % (2-10) 07/15/17 04:15 Eosinophils 4 % (0-5) 07/15/17 04:15 Hypochromia 1+ 07/04/17 04:30 Platelet Estimate ADEQUATE (NORMAL) 07/15/17 04:15 Polychromasia 1+ 07/04/17 04:30 Schistocytes 1+ 07/04/17 04:30 PT 12.0 SECONDS (9.5-11.5) H 07/08/17 04:15 INR 1.14 (0.5-1.4) 07/08/17 04:15 PTT (Actin FS) 25.0 SECONDS (26.0-38.0) L 07/08/17 04:15 D-Dimer 3600 ng/mL (100-400) H 06/21/17 18:20 Specimen Source Arterial 06/28/17 10:55 Sample Site Right Radial 06/28/17 10:55 pH 7.44 (7.35-7.45) 06/28/17 10:55 pCO2 36.0 mmHg (35.0-45.0) 06/28/17 10:55 pO2 100.0 mmHg (80.0-100.0) 06/28/17 10:55 HCO3 25.4 mEq/L (20.0-26.0) 06/28/17 10:55 Base Excess 0.6 mEq/L (-3.0-3.0) 06/28/17 10:55 O2 Saturation 98.0 % (92.0-100.0) 06/28/17 10:55 Rashid Test Positive 06/28/17 10:55 Vent Rate N/A 06/28/17 10:55 Inspired O2 28 06/28/17 10:55 Tidal Volume N/A 06/28/17 10:55 PEEP N/A 06/28/17 10:55 Pressure (ins/psv/peep) N/A 06/28/17 10:55 Critical Value DM 06/28/17 10:55 Sodium 135 mEq/L (136-145) L 07/16/17 04:15 Potassium 3.9 mEq/L (3.5-5.1) 07/16/17 04:15 Chloride 102 mEq/L (98-107) 07/16/17 04:15 Carbon Dioxide 34.2 mEq/L (21.0-31.0) H 07/16/17 04:15 Anion Gap 2.7 (7.0-16.0) L 07/16/17 04:15 BUN 20 mg/dL (7-25) 07/16/17 04:15 Creatinine 1.0 mg/dL (0.6-1.2) 07/16/17 04:15 Est GFR ( Amer) TNP 07/16/17 04:15 Est GFR (Non-Af Amer) TNP 07/16/17 04:15 BUN/Creatinine Ratio 20.0 07/16/17 04:15 Glucose 177 mg/dL (70-105) H 07/16/17 04:15 POC Glucose 157 MG/DL (70 - 105) H 07/16/17 05:23 Hemoglobin A1c % 11.7 % (4.0-6.0) H 06/21/17 18:20 Calcium 8.0 mg/dL (8.6-10.3) L 07/16/17 04:15 Phosphorus 3.3 mg/dL (2.5-5.0) 07/16/17 04:15 Magnesium 2.0 mg/dL (1.9-2.7) 07/16/17 04:15 Iron 19 ug/dL (27-139) L 06/22/17 05:20 TIBC 176 ug/dL (250-450) L 06/22/17 05:20 Iron Saturation 11 % (15-55) L 06/22/17 05:20 Unsaturated IBC 157 ug/dL (118-369) 06/22/17 05:20 Ferritin 164 ng/mL (15-150) H 06/22/17 05:20 Total Bilirubin 0.4 mg/dL (0.3-1.0) 07/15/17 04:15 AST 16 U/L (13-39) 07/15/17 04:15 ALT 8 U/L (7-52) 07/15/17 04:15 Alkaline Phosphatase 119 U/L (34-104) H 07/15/17 04:15 Ammonia 38 umol/L (16-53) 07/08/17 04:15 Creatine Kinase 39 U/L (30-223) 06/21/17 18:20 Troponin I 0.01 ng/mL (0.01-0.05) 06/21/17 18:20 B-Natriuretic Peptide 108.0 pg/mL (5.0-100.0) H 07/09/17 04:30 Total Protein 5.0 gm/dL (6.0-8.3) L 07/15/17 04:15 Albumin 1.7 gm/dL (3.7-5.3) L 07/15/17 04:15 Globulin 3.3 gm/dL 07/15/17 04:15 Albumin/Globulin Ratio 0.5 (1.0-1.8) L 07/15/17 04:15 Prealbumin 14 mg/dL (9-32) 07/15/17 04:15 Triglycerides 88 mg/dL (<150) 07/15/17 04:15 Cholesterol 94 mg/dL (<200) 07/15/17 04:15 LDL Cholesterol Direct 65 mg/dL (75-193) L 06/21/17 18:20 HDL Cholesterol 43 mg/dL (23-92) 06/21/17 18:20 Vitamin B12 1797 pg/mL (232-1245) H 07/02/17 03:41 Folic Acid 10.3 ng/mL (>3.0) 07/02/17 03:41 Helicobacter pylori Ab NEGATIVE (NEGATIVE) 07/09/17 14:54 Blood Type O POSITIVE 07/09/17 09:16 Antibody Screen NEGATIVE 07/09/17 09:16 Crossmatch See Detail 07/09/17 09:16 - Physical Exam Vitals and I&O: Vital Signs Temp 97.6 F 07/16/17 04:00 Pulse 94 07/16/17 08:35 Resp 14 07/16/17 07:29 BP 156/95 07/16/17 08:35 Pulse Ox 100 07/16/17 07:29 Intake & Output 07/15/17 07/16/17 07/16/17 18:59 06:59 18:59 Intake Total 1590.480 740.57 Output Total 1100 1050 Balance 490.480 -309.43 Weight (lbs) 75.75 kg 76.43 kg Intake: Intake, IV Amount 890.480 90.57 Cefepime 0.5 gm In 50 Dextrose 5% 50 ml @ 100 mls/hr IV Q24H ED Rx#: [id number] D5-0.45NS 1,000 ml @ 20 199 mls/hr IV .Q24H ED Rx#: [id number] Dextrose 70% 700 ml Amino 490 Acids 8.5% 500 ml @ 50 mls/hr IV .Q24H ED Rx#: [id number] Nitroglycerin 50mg/D5W 151.480 90.57 Premix 50 mg In 250 ml @ Per Protocol IV TITR PRN Rx#:[id number] Oral 100 50 TPN/PPN 600 600 Output: Urine 1100 1050 Other: # Bowel Movements 1 1 Active Medications: Current Medications Acetaminophen (Tylenol) 650 mg PO Q4H PRN PRN Reason: Pain Or Fever above 101 Stop: 08/20/17 19:40 Al Hydrox/Mg Hydrox/Simethicone (Maalox) 30 ml PO Q6H PRN PRN Reason: Dyspepsia Stop: 08/20/17 19:40 Albuterol Sulfate (Albuterol 2.5mg/3ml Neb Ud) 2.5 mg HHN Q2HRT PRN PRN Reason: Shortness of Breath or Wheeze Stop: 08/20/17 19:40 Last Admin: 07/11/17 05:23 Dose: 2.5 mg Albuterol/Ipratropium (Duoneb Neb) 3 ml HHN Q6HRT ED Stop: 08/30/17 18:59 Last Admin: 07/16/17 07:29 Dose: 3 ml Amlodipine Besylate (Norvasc) 10 mg PO DAILY [facility] Stop: 09/06/17 08:59 Last Admin: 07/16/17 08:35 Dose: 10 mg Bisacodyl (Dulcolax 10 Mg Supp) 10 mg RC DAILY [facility] Stop: 07/18/17 14:14 Last Admin: 07/15/17 15:49 Dose: 10 mg Diltiazem HCl (Cardizem) 20 mg IVP Q4H PRN PRN Reason: HR> 120 Stop: 09/04/17 17:55 Enalaprilat (Vasotec) 1.25 mg IVP Q6HR PRN PRN Reason: SBP 160 mmhg and above Stop: 09/08/17 05:59 Last Admin: 07/12/17 11:41 Dose: 1.25 mg Enalaprilat (Vasotec) 2.5 mg IVP Q4HR [facility] Stop: 09/10/17 15:59 Last Admin: 07/16/17 08:34 Dose: 2.5 mg Guaifenesin (Robitussin) 200 mg PO Q4HR PRN PRN Reason: Cough or Congestion Stop: 08/20/17 19:40 Haloperidol Decanoate (Haldol Dec) 25 mg IM QMONTH [facility] Stop: 08/23/17 09:59 Last Admin: 06/24/17 09:10 Dose: 25 mg Hydralazine HCl (Apresoline 20 Mg/Ml) 10 mg IV Q6HR PRN PRN Reason: SBP ABOVE 160 Stop: 08/25/17 12:20 Last Admin: 07/13/17 22:42 Dose: 10 mg Cefepime HCl 0.5 gm/ Dextrose 50 mls @ 100 mls/hr IV Q24H [facility] Stop: 09/06/17 13:59 Last Infusion: 07/15/17 15:00 Dose: Infused Dextrose/Sodium Chloride (D5-0.45ns) 1,000 mls @ 20 mls/hr IV .Q24H [facility] Stop: 09/08/17 09:25 Last Admin: 07/15/17 15:57 Dose: 20 mls/hr Dextrose/ Amino Acids/ (Electrolytes) 1,200 mls @ 50 mls/hr IV .Q24H [facility] Stop: 08/09/17 15:59 Last Admin: 07/15/17 15:48 Dose: 50 mls/hr Nitroglycerin/Dextrose (Nitroglycerin 50mg/Dextrose 5% Premix) 50 mg in 250 mls @ 0 mls/hr IV TITR PRN; Protocol; Per Protocol PRN Reason: BP MAINTENANCE Stop: 09/12/17 09:12 Last Titration: 07/16/17 05:37 Dose: 35 mcg/min, 10.5 mls/hr Insulin Aspart (Novolog) 0 units SUBQ Q6HR ED PRN Reason: Protocol Stop: 09/03/17 00:00 Last Admin: 07/16/17 05:30 Dose: Not Given Ipratropium [place] (Atrovent Neb 0.5mg/2.5ml) 0.5 mg IH Q2HRT PRN PRN Reason: Shortness of Breath or Wheeze Stop: 08/20/17 19:40 Last Admin: 07/11/17 05:23 Dose: 0.5 mg Labetalol HCl (Trandate) 10 mg IVP Q4HR PRN PRN Reason: SBP ABOVE 160 Stop: 09/09/17 13:16 Last Admin: 07/12/17 03:38 Dose: 10 mg Lactobacillus Rhamnosus (Culturelle 15b) 1 each PO DAILY [facility] Stop: 08/30/17 08:59 Last Admin: 07/16/17 08:35 Dose: 1 each Losartan Potassium (Cozaar) 100 mg PO DAILY ED Stop: 09/13/17 15:59 Last Admin: 07/16/17 08:35 Dose: 100 mg Mirtazapine (Remeron) 15 mg PO HS ED PRN Reason: Protocol Stop: 08/20/17 20:59 Last Admin: 07/15/17 20:31 Dose: 15 mg Miscellaneous (Probiotic Screen) 1 ea PRN PRN PRN Reason: PROTOCOL Stop: 08/29/17 11:59 Miscellaneous (Tpn Per Pharmacy) 1 ea PRN PRN PRN Reason: PROTOCOL Stop: 09/06/17 13:12 Morphine Sulfate (Morphine) 2 mg IVP Q4H PRN PRN Reason: Pain (Severe) Stop: 09/06/17 13:06 Last Admin: 07/09/17 22:21 Dose: 2 mg Nitroglycerin (Nitrostat) 0.4 mg SL Q5MIN PRN PRN Reason: Chest Pain Stop: 08/20/17 19:40 Ondansetron HCl (Zofran Odt) 4 mg PO Q6H PRN PRN Reason: Nausea / Vomiting Stop: 09/04/17 13:12 Pantoprazole Sodium (Protonix) 40 mg IVP BID [facility] Stop: 09/09/17 16:59 Last Admin: 07/16/17 08:35 Dose: 40 mg Sodium Phosphate (Fleet Enema) 135 ml RC PRN PRN PRN Reason: Constipation Stop: 09/10/17 09:36 Last Admin: 07/15/17 14:15 Dose: 135 ml General: Other HEENT: Atraumatic Neck: Supple Cardiovascular: Regular rate Abdomen: Bowel sounds, Soft, Other (dressing in midline no bleeding), no Tender , no Mass, no Guarding Extremities: Other (right arm picc) - Procedures Procedures: Procedures Procedure Code Date PARTIAL REMOVAL OF COLON 85038 06/21/17 RESECTION OF RIGHT LARGE INTESTINE, OPEN APPROACH [id number] 06/21/17 Assessment/Plan - Assessment Assessment: # Anemia # Colon mass vs polyp # Diverticulosis EGD on 06/23 showed mild gastritis. Colonoscopy revealed 3-4cm cecal lesion and 2cm ascending colon polyp. Cecal lesion endoscopically looked like villous adenoma, and ascending colon may be adenoma vs villous adenoma. 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 These lesions could very well be contributing to her chronic anemia, although certainly there is anemia of chronic disease Now s/p R hemicolectomy on 06/27. 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 Now recovering post op. Plan: - Repeat colo in 1 year - cont post op care and diet as tolerated - appreciate hematology recs - cont iron supplementation - trend hgb Thank you for allowing me to participate in this patient's care, GI to see intermittently. Please call with any questions
--- NOTE | 2017-07-16 14:30 | Internal Medicine Prog Note ---
Internal Medicine Subjective - Subjective Service Date: 07/16/17 (patient is now off of nitro drip. Patient on TPN, per nursing staff patient does not eat much. ) Patient is:: awake, non-verbal, non-interactive Patient Complaints of:: congestion Per staff patient has:: no adverse event, no episodes of fall, tolerating meds Internal Medicine Objective - Results Result Diagrams: 07/16/17 04:15 07/16/17 04:15 Recent Labs: Laboratory Last Values WBC 7.3 Th/cmm (4.8-10.8) 07/16/17 04:15 RBC 2.81 Mil/cmm (3.80-5.20) L 07/16/17 04:15 Hgb 7.9 gm/dL (12-16) L* 07/16/17 04:15 Hct 23.7 % (41.0-60) L 07/16/17 04:15 MCV 84.4 fl (81-100) 07/16/17 04:15 MCH 28.2 pg (27.0-31.0) 07/16/17 04:15 MCHC Differential 33.4 pg (28.0-36.0) 07/16/17 04:15 RDW 16.1 % (11.5-20.0) 07/16/17 04:15 Plt Count 205 Th/cmm (150-400) 07/16/17 04:15 MPV 8.3 fl 07/16/17 04:15 Neutrophils % 59.6 % (40.0-80.0) 07/16/17 04:15 Band Neutrophils % 6 % (0-10) 07/15/17 04:15 Lymphocytes % 27.7 % (20.0-50.0) 07/16/17 04:15 Monocytes % 10.1 % (2.0-10.0) H 07/16/17 04:15 Eosinophils % 1.9 % (0.0-5.0) 07/16/17 04:15 Basophils % 0.7 % (0.0-2.0) 07/16/17 04:15 Neutrophils (Manual) 62 % (40-80) 07/15/17 04:15 Lymphocytes 20 % (20-50) 07/15/17 04:15 Monocytes 8 % (2-10) 07/15/17 04:15 Eosinophils 4 % (0-5) 07/15/17 04:15 Hypochromia 1+ 07/04/17 04:30 Platelet Estimate ADEQUATE (NORMAL) 07/15/17 04:15 Polychromasia 1+ 07/04/17 04:30 Schistocytes 1+ 07/04/17 04:30 PT 12.0 SECONDS (9.5-11.5) H 07/08/17 04:15 INR 1.14 (0.5-1.4) 07/08/17 04:15 PTT (Actin FS) 25.0 SECONDS (26.0-38.0) L 07/08/17 04:15 D-Dimer 3600 ng/mL (100-400) H 06/21/17 18:20 Specimen Source Arterial 06/28/17 10:55 Sample Site Right Radial 06/28/17 10:55 pH 7.44 (7.35-7.45) 06/28/17 10:55 pCO2 36.0 mmHg (35.0-45.0) 06/28/17 10:55 pO2 100.0 mmHg (80.0-100.0) 06/28/17 10:55 HCO3 25.4 mEq/L (20.0-26.0) 06/28/17 10:55 Base Excess 0.6 mEq/L (-3.0-3.0) 06/28/17 10:55 O2 Saturation 98.0 % (92.0-100.0) 06/28/17 10:55 Rashid Test Positive 06/28/17 10:55 Vent Rate N/A 06/28/17 10:55 Inspired O2 28 06/28/17 10:55 Tidal Volume N/A 06/28/17 10:55 PEEP N/A 06/28/17 10:55 Pressure (ins/psv/peep) N/A 06/28/17 10:55 Critical Value DM 06/28/17 10:55 Sodium 135 mEq/L (136-145) L 07/16/17 04:15 Potassium 3.9 mEq/L (3.5-5.1) 07/16/17 04:15 Chloride 102 mEq/L (98-107) 07/16/17 04:15 Carbon Dioxide 34.2 mEq/L (21.0-31.0) H 07/16/17 04:15 Anion Gap 2.7 (7.0-16.0) L 07/16/17 04:15 BUN 20 mg/dL (7-25) 07/16/17 04:15 Creatinine 1.0 mg/dL (0.6-1.2) 07/16/17 04:15 Est GFR ( Amer) TNP 07/16/17 04:15 Est GFR (Non-Af Amer) TNP 07/16/17 04:15 BUN/Creatinine Ratio 20.0 07/16/17 04:15 Glucose 177 mg/dL (70-105) H 07/16/17 04:15 POC Glucose 193 MG/DL (70 - 105) H 07/16/17 11:58 Hemoglobin A1c % 11.7 % (4.0-6.0) H 06/21/17 18:20 Calcium 8.0 mg/dL (8.6-10.3) L 07/16/17 04:15 Phosphorus 3.3 mg/dL (2.5-5.0) 07/16/17 04:15 Magnesium 2.0 mg/dL (1.9-2.7) 07/16/17 04:15 Iron 19 ug/dL (27-139) L 06/22/17 05:20 TIBC 176 ug/dL (250-450) L 06/22/17 05:20 Iron Saturation 11 % (15-55) L 06/22/17 05:20 Unsaturated IBC 157 ug/dL (118-369) 06/22/17 05:20 Ferritin 164 ng/mL (15-150) H 06/22/17 05:20 Total Bilirubin 0.4 mg/dL (0.3-1.0) 07/15/17 04:15 AST 16 U/L (13-39) 07/15/17 04:15 ALT 8 U/L (7-52) 07/15/17 04:15 Alkaline Phosphatase 119 U/L (34-104) H 07/15/17 04:15 Ammonia 38 umol/L (16-53) 07/08/17 04:15 Creatine Kinase 39 U/L (30-223) 06/21/17 18:20 Troponin I 0.01 ng/mL (0.01-0.05) 06/21/17 18:20 B-Natriuretic Peptide 108.0 pg/mL (5.0-100.0) H 07/09/17 04:30 Total Protein 5.0 gm/dL (6.0-8.3) L 07/15/17 04:15 Albumin 1.7 gm/dL (3.7-5.3) L 07/15/17 04:15 Globulin 3.3 gm/dL 07/15/17 04:15 Albumin/Globulin Ratio 0.5 (1.0-1.8) L 07/15/17 04:15 Prealbumin 14 mg/dL (9-32) 07/15/17 04:15 Triglycerides 88 mg/dL (<150) 07/15/17 04:15 Cholesterol 94 mg/dL (<200) 07/15/17 04:15 LDL Cholesterol Direct 65 mg/dL (75-193) L 06/21/17 18:20 HDL Cholesterol 43 mg/dL (23-92) 06/21/17 18:20 Vitamin B12 1797 pg/mL (232-1245) H 07/02/17 03:41 Folic Acid 10.3 ng/mL (>3.0) 07/02/17 03:41 Helicobacter pylori Ab NEGATIVE (NEGATIVE) 07/09/17 14:54 Blood Type O POSITIVE 07/09/17 09:16 Antibody Screen NEGATIVE 07/09/17 09:16 Crossmatch See Detail 07/09/17 09:16 - Physical Exam Vitals and I&O: Vital Signs Temp 97.2 F 07/16/17 12:00 Pulse 76 07/16/17 13:24 Resp 14 07/16/17 13:24 BP 145/80 07/16/17 13:00 Pulse Ox 100 07/16/17 13:24 Intake & Output 07/15/17 07/16/17 07/16/17 18:59 06:59 18:59 Intake Total 1590.480 740.57 31.025 Output Total 1100 1050 Balance 490.480 -309.43 31.025 Weight (lbs) 167 lb 168 lb 8 oz Intake: Intake, IV Amount 890.480 90.57 31.025 Cefepime 0.5 gm In 50 Dextrose 5% 50 ml @ 100 mls/hr IV Q24H [facility] Rx#: [id number] D5-0.45NS 1,000 ml @ 20 199 mls/hr IV .Q24H [facility] Rx#: [id number] Dextrose 70% 700 ml Amino 490 Acids 8.5% 500 ml @ 50 mls/hr IV .Q24H [facility] Rx#: [id number] Nitroglycerin 50mg/D5W 151.480 90.57 31.025 Premix 50 mg In 250 ml @ Per Protocol IV TITR PRN Rx#:[id number] Oral 100 50 TPN/PPN 600 600 Output: Urine 1100 1050 Other: # Bowel Movements 1 1 Active Medications: Current Medications Acetaminophen (Tylenol) 650 mg PO Q4H PRN PRN Reason: Pain Or Fever above 101 Stop: 08/20/17 19:40 Al Hydrox/Mg Hydrox/Simethicone (Maalox) 30 ml PO Q6H PRN PRN Reason: Dyspepsia Stop: 08/20/17 19:40 Albuterol Sulfate (Albuterol 2.5mg/3ml Neb Ud) 2.5 mg HHN Q2HRT PRN PRN Reason: Shortness of Breath or Wheeze Stop: 08/20/17 19:40 Last Admin: 07/11/17 05:23 Dose: 2.5 mg Albuterol/Ipratropium (Duoneb Neb) 3 ml HHN Q6HRT [facility] Stop: 08/30/17 18:59 Last Admin: 07/16/17 13:24 Dose: 3 ml Amlodipine Besylate (Norvasc) 10 mg PO DAILY [facility] Stop: 09/06/17 08:59 Last Admin: 07/16/17 08:35 Dose: 10 mg Bisacodyl (Dulcolax 10 Mg Supp) 10 mg RC DAILY [facility] Stop: 07/18/17 14:14 Last Admin: 07/16/17 09:00 Dose: 10 mg Diltiazem HCl (Cardizem) 20 mg IVP Q4H PRN PRN Reason: HR> 120 Stop: 09/04/17 17:55 Enalaprilat (Vasotec) 1.25 mg IVP Q6HR PRN PRN Reason: SBP 160 mmhg and above Stop: 09/08/17 05:59 Last Admin: 07/12/17 11:41 Dose: 1.25 mg Enalaprilat (Vasotec) 2.5 mg IVP Q4HR [facility] Stop: 09/10/17 15:59 Last Admin: 07/16/17 12:21 Dose: 2.5 mg Guaifenesin (Robitussin) 200 mg PO Q4HR PRN PRN Reason: Cough or Congestion Stop: 08/20/17 19:40 Haloperidol Decanoate (Haldol Dec) 25 mg IM QMONTH [facility] Stop: 08/23/17 09:59 Last Admin: 06/24/17 09:10 Dose: 25 mg Hydralazine HCl (Apresoline 20 Mg/Ml) 10 mg IV Q6HR PRN PRN Reason: SBP ABOVE 160 Stop: 08/25/17 12:20 Last Admin: 07/13/17 22:42 Dose: 10 mg Cefepime HCl 0.5 gm/ Dextrose 50 mls @ 100 mls/hr IV Q24H [facility] Stop: 09/06/17 13:59 Last Infusion: 07/15/17 15:00 Dose: Infused Dextrose/Sodium Chloride (D5-0.45ns) 1,000 mls @ 20 mls/hr IV .Q24H [facility] Stop: 09/08/17 09:25 Last Admin: 07/15/17 15:57 Dose: 20 mls/hr Dextrose/ Amino Acids/ (Electrolytes) 1,200 mls @ 50 mls/hr IV .Q24H [facility] Stop: 08/09/17 15:59 Last Admin: 07/15/17 15:48 Dose: 50 mls/hr Nitroglycerin/Dextrose (Nitroglycerin 50mg/Dextrose 5% Premix) 50 mg in 250 mls @ 0 mls/hr IV TITR PRN; Protocol; Per Protocol PRN Reason: BP MAINTENANCE Stop: 09/12/17 09:12 Last Titration: 07/16/17 09:00 Dose: 0 mcg/min, 0 mls/hr Insulin Aspart (Novolog) 0 units SUBQ Q6HR ED PRN Reason: Protocol Stop: 09/03/17 00:00 Last Admin: 07/16/17 12:01 Dose: Not Given Ipratropium [place] (Atrovent Neb 0.5mg/2.5ml) 0.5 mg IH Q2HRT PRN PRN Reason: Shortness of Breath or Wheeze Stop: 08/20/17 19:40 Last Admin: 07/11/17 05:23 Dose: 0.5 mg Labetalol HCl (Trandate) 10 mg IVP Q4HR PRN PRN Reason: SBP ABOVE 160 Stop: 09/09/17 13:16 Last Admin: 07/12/17 03:38 Dose: 10 mg Lactobacillus Rhamnosus (Culturelle 15b) 1 each PO DAILY [facility] Stop: 08/30/17 08:59 Last Admin: 07/16/17 08:35 Dose: 1 each Losartan Potassium (Cozaar) 100 mg PO DAILY [facility] Stop: 09/13/17 15:59 Last Admin: 07/16/17 08:35 Dose: 100 mg Mirtazapine (Remeron) 15 mg PO HS ED PRN Reason: Protocol Stop: 08/20/17 20:59 Last Admin: 07/15/17 20:31 Dose: 15 mg Miscellaneous (Probiotic Screen) 1 ea PRN PRN PRN Reason: PROTOCOL Stop: 08/29/17 11:59 Miscellaneous (Tpn Per Pharmacy) 1 ea PRN PRN PRN Reason: PROTOCOL Stop: 09/06/17 13:12 Morphine Sulfate (Morphine) 2 mg IVP Q4H PRN PRN Reason: Pain (Severe) Stop: 09/06/17 13:06 Last Admin: 07/09/17 22:21 Dose: 2 mg Nitroglycerin (Nitrostat) 0.4 mg SL Q5MIN PRN PRN Reason: Chest Pain Stop: 08/20/17 19:40 Ondansetron HCl (Zofran Odt) 4 mg PO Q6H PRN PRN Reason: Nausea / Vomiting Stop: 09/04/17 13:12 Pantoprazole Sodium (Protonix) 40 mg IVP BID [facility] Stop: 09/09/17 16:59 Last Admin: 07/16/17 08:35 Dose: 40 mg Sodium Phosphate (Fleet Enema) 135 ml RC PRN PRN PRN Reason: Constipation Stop: 09/10/17 09:36 Last Admin: 07/15/17 14:15 Dose: 135 ml General: weak, demented, thin, bilateral temporal wasting HEENT: NC/AT, PERRLA, thinning hair, other (ngt) Neck: Supple Lungs: rales, ronchi Cardiovascular: RRR, Normal S1, Normal S2, without murmur Abdomen: non-tender, distended Extremities: excoriation, contracture, deformity Neurological: lethargic, unsteady, bedbound - Procedures Procedures: Procedures Procedure Code Date PARTIAL REMOVAL OF COLON 28167 06/21/17 RESECTION OF RIGHT LARGE INTESTINE, OPEN APPROACH [id number] 06/21/17 Internal Medicine Assmt/Plan - Assessment Assessment: acute dvt cecal mass s/p exploratory lap right right hemicolectomy severe anemia dm2 schizophrenia htn psychosis hypokalemia - Plan Plan: patient may benefit from peg monitor h/h cardiology follow up monitor electrolytes follow up labs in am will follow tanning consultant recommendations Nutritional Asmnt/Malnutr-PDOC - Dietary Evaluation Malnutrition Findings (Please click <Entered> for more info): Nutritional Asmnt/Malnutrition Start: 06/22/17 18: 04 Text: Status: Complete Freq: Document 06/22/17 18:04 EJNY (Rec: 06/22/17 18:15 [id number]) Nutritional Asmnt/Malnutrition Patient General Information Nutritional Screening High Risk Consult Diagnosis left lower extremity DVT, severe anemia, CHF, HTN Pertinent Medical Hx/Surgical Hx DM, anemia, renal stones, schizophrenia Subjective Information Pt seen lying in bed, confused at time of visit. Spoke with LULÚ Seay, RN reported pt ate well, consumed 60% of breakfast this morning. Per notes, pt has EGD and colonoscopy scheduled tommorrow. Current Diet Order/ Nutrition Support pureed Pertinent Medications D5-0.9ns, novolog, remeron, kcl Pertinent Labs 06/21 Na 137, K 3.5, Cl 100, BUN 24, Cr 1.3, Glucose 186, AST 10, ALT 6, Alb 2.6 06/22 POC 383 Nutritional Hx/Data Height 5 ft Height (Calculated Centimeters) 152.4 Current Weight (lbs) 86 lb Weight (Calculated Kilograms) 39.0 Weight (Calculated Grams) 25775.9 [place] Body Weight 100 % [place] Body Weight 86 Body Mass Index (BMI) 16.7 Weight Status Underweight GI Symptoms GI Symptoms None Last BM none Difficult in: None Skin Integrity/Comment: intact Current %PO Fair (50-74%) Estimated Nutritional Goals Calories/Kcals/Kg 25-30 based on IBW 45kg Kcals Calculated 5864-1625 Protein g/k-1.2 Protein Calculated 45-54 Fluid: ml 1125-1350ml (1ml/kcal) Nutritional Problem 1. Problem Problem altered nutrition related lab values Etiology hx of DM Signs/Symptoms: Glucose 186, POC 383 Malnutrition Alert Protein-Calorie Malnutrition N/A Is there a minimum of two criteria No selected? Query Text:Check all the applicable criteria. A minimum of two criteria are recommended for diagnosis of either severe or non-severe malnutrition. Intervention/Recommendation Comments 1. Recommend CCHO, low sodium diet for optimal glycemic and BP control. RN notified. 2. Monitor PO intake, wt, labs and skin integrity 3. F/U as high risk in 2-3 days, 06/24-06/25 Expected Outcomes/Goals Expected Outcomes/Goals 1. PO intake to meet at least 75% of nutritional needs. 2. Wt stability, skin to remain intact, labs to improve
[2017-07-16] MEDS: TPN 8.5%-70% CUSTOM IV SCH (18:07)
[2017-07-17] MEDS: INSULIN ASPART, RECOMBINANT 100 UNITS/ML SUBQ SCH ×4 (00:21→17:37)
[2017-07-17] MEDS: Albuterol/Ipratropium Neb 3 ML AERS HHN SCH ×4 (00:33→19:05)
[2017-07-17 04:25] LABS: % EOSINOPHILS 2.4 % (0.0-5.0); % LYMPHOCYTES 23.8 % (20.0-50.0); % MONOCYTES 9.1 % (2.0-10.0); % NEUTROPHILS 63.7 % (40.0-80.0); BASOPHILE ABSOLUTE 0.1 Th/cumm (0-0.2); EOSINOPHILE ABSOLUTE 0.2 Th/cmm (0.1-0.4); HEMATOCRIT 23.7 % (41.0-60); LYMPHOCYTE ABSOLUTE 1.9 Th/cmm (1.5-3.0); MEAN CELL VOLUME 85.1 fl (81-100); MEAN CORPUSCULAR HEMOGLOBIN 28.2 pg (27.0-31.0); MEAN CORPUSCULAR HGB CONC 33.1 pg (28.0-36.0); MEAN PLATELET VOLUME 8.1 fl; MONOCYTE ABSOLUTE 0.7 Th/cmm (0.3-1.0); NEUTROPHILE ABSOLUTE 5.2 Th/cmm (1.8-8.0); RED BLOOD COUNT 2.79 Mil/cmm (3.80-5.20); WHITE BLOOD COUNT 8.1 Th/cmm (4.8-10.8)
[2017-07-17 04:38] LABS: ANION GAP 5.3 (7.0-16.0); BUN - UREA NITROGEN 20 mg/dL (7-25); CARBON DIOXIDE 37.8 mEq/L (21.0-31.0); CHLORIDE 95 mEq/L (98-107); GLUCOSE 160 mg/dL (70-105); MAGNESIUM 2.2 mg/dL (1.9-2.7); PHOSPHOROUS 2.9 mg/dL (2.5-5.0); POTASSIUM SERUM 4.1 mEq/L (3.5-5.1); SODIUM SERUM 134 mEq/L (136-145)
[2017-07-17 04:39] LABS: HEMOGLOBIN 7.8 gm/dL (12-16); PLATELET COUNT 259 Th/cmm (150-400)
--- NOTE | 2017-07-17 08:39 | GI Progress Note ---
Subjective - Review of Systems Service Date: 07/17/17 Subjective: Eating with help from RNs Objective - Results Result Diagrams: 07/17/17 04:15 07/17/17 04:15 Recent Labs: Laboratory Last Values WBC 8.1 Th/cmm (4.8-10.8) 07/17/17 04:15 RBC 2.79 Mil/cmm (3.80-5.20) L 07/17/17 04:15 Hgb 7.8 gm/dL (12-16) L* 07/17/17 04:15 Hct 23.7 % (41.0-60) L 07/17/17 04:15 MCV 85.1 fl (81-100) 07/17/17 04:15 MCH 28.2 pg (27.0-31.0) 07/17/17 04:15 MCHC Differential 33.1 pg (28.0-36.0) 07/17/17 04:15 RDW 16.0 % (11.5-20.0) 07/17/17 04:15 Plt Count 259 Th/cmm (150-400) D 07/17/17 04:15 MPV 8.1 fl 07/17/17 04:15 Neutrophils % 63.7 % (40.0-80.0) 07/17/17 04:15 Band Neutrophils % 6 % (0-10) 07/15/17 04:15 Lymphocytes % 23.8 % (20.0-50.0) 07/17/17 04:15 Monocytes % 9.1 % (2.0-10.0) 07/17/17 04:15 Eosinophils % 2.4 % (0.0-5.0) 07/17/17 04:15 Basophils % 1.0 % (0.0-2.0) 07/17/17 04:15 Neutrophils (Manual) 62 % (40-80) 07/15/17 04:15 Lymphocytes 20 % (20-50) 07/15/17 04:15 Monocytes 8 % (2-10) 07/15/17 04:15 Eosinophils 4 % (0-5) 07/15/17 04:15 Hypochromia 1+ 07/04/17 04:30 Platelet Estimate ADEQUATE (NORMAL) 07/15/17 04:15 Polychromasia 1+ 07/04/17 04:30 Schistocytes 1+ 07/04/17 04:30 PT 12.0 SECONDS (9.5-11.5) H 07/08/17 04:15 INR 1.14 (0.5-1.4) 07/08/17 04:15 PTT (Actin FS) 25.0 SECONDS (26.0-38.0) L 07/08/17 04:15 D-Dimer 3600 ng/mL (100-400) H 06/21/17 18:20 Specimen Source Arterial 06/28/17 10:55 Sample Site Right Radial 06/28/17 10:55 pH 7.44 (7.35-7.45) 06/28/17 10:55 pCO2 36.0 mmHg (35.0-45.0) 06/28/17 10:55 pO2 100.0 mmHg (80.0-100.0) 06/28/17 10:55 HCO3 25.4 mEq/L (20.0-26.0) 06/28/17 10:55 Base Excess 0.6 mEq/L (-3.0-3.0) 06/28/17 10:55 O2 Saturation 98.0 % (92.0-100.0) 06/28/17 10:55 Rashid Test Positive 06/28/17 10:55 Vent Rate N/A 06/28/17 10:55 Inspired O2 28 06/28/17 10:55 Tidal Volume N/A 06/28/17 10:55 PEEP N/A 06/28/17 10:55 Pressure (ins/psv/peep) N/A 06/28/17 10:55 Critical Value DM 06/28/17 10:55 Sodium 134 mEq/L (136-145) L 07/17/17 04:15 Potassium 4.1 mEq/L (3.5-5.1) 07/17/17 04:15 Chloride 95 mEq/L (98-107) L 07/17/17 04:15 Carbon Dioxide 37.8 mEq/L (21.0-31.0) H 07/17/17 04:15 Anion Gap 5.3 (7.0-16.0) L 07/17/17 04:15 BUN 20 mg/dL (7-25) 07/17/17 04:15 Creatinine 1.0 mg/dL (0.6-1.2) 07/17/17 04:15 Est GFR ( Amer) TNP 07/17/17 04:15 Est GFR (Non-Af Amer) TNP 07/17/17 04:15 BUN/Creatinine Ratio 20.0 07/17/17 04:15 Glucose 160 mg/dL (70-105) H 07/17/17 04:15 POC Glucose 182 MG/DL (70 - 105) H 07/16/17 23:34 Hemoglobin A1c % 11.7 % (4.0-6.0) H 06/21/17 18:20 Calcium 8.0 mg/dL (8.6-10.3) L 07/17/17 04:15 Phosphorus 2.9 mg/dL (2.5-5.0) 07/17/17 04:15 Magnesium 2.2 mg/dL (1.9-2.7) 07/17/17 04:15 Iron 19 ug/dL (27-139) L 06/22/17 05:20 TIBC 176 ug/dL (250-450) L 06/22/17 05:20 Iron Saturation 11 % (15-55) L 06/22/17 05:20 Unsaturated IBC 157 ug/dL (118-369) 06/22/17 05:20 Ferritin 164 ng/mL (15-150) H 06/22/17 05:20 Total Bilirubin 0.4 mg/dL (0.3-1.0) 07/15/17 04:15 AST 16 U/L (13-39) 07/15/17 04:15 ALT 8 U/L (7-52) 07/15/17 04:15 Alkaline Phosphatase 119 U/L (34-104) H 07/15/17 04:15 Ammonia 38 umol/L (16-53) 07/08/17 04:15 Creatine Kinase 39 U/L (30-223) 06/21/17 18:20 Troponin I 0.01 ng/mL (0.01-0.05) 06/21/17 18:20 B-Natriuretic Peptide 108.0 pg/mL (5.0-100.0) H 07/09/17 04:30 Total Protein 5.0 gm/dL (6.0-8.3) L 07/15/17 04:15 Albumin 1.7 gm/dL (3.7-5.3) L 07/15/17 04:15 Globulin 3.3 gm/dL 07/15/17 04:15 Albumin/Globulin Ratio 0.5 (1.0-1.8) L 07/15/17 04:15 Prealbumin 14 mg/dL (9-32) 07/15/17 04:15 Triglycerides 88 mg/dL (<150) 07/15/17 04:15 Cholesterol 94 mg/dL (<200) 07/15/17 04:15 LDL Cholesterol Direct 65 mg/dL (75-193) L 06/21/17 18:20 HDL Cholesterol 43 mg/dL (23-92) 06/21/17 18:20 Vitamin B12 1797 pg/mL (232-1245) H 07/02/17 03:41 Folic Acid 10.3 ng/mL (>3.0) 07/02/17 03:41 Helicobacter pylori Ab NEGATIVE (NEGATIVE) 07/09/17 14:54 Blood Type O POSITIVE 07/09/17 09:16 Antibody Screen NEGATIVE 07/09/17 09:16 Crossmatch See Detail 07/09/17 09:16 - Physical Exam Vitals and I&O: Vital Signs Temp 97.6 F 07/17/17 04:00 Pulse 70 07/17/17 06:47 Resp 20 07/17/17 06:47 BP 138/76 07/17/17 06:00 Pulse Ox 97 07/17/17 08:00 Intake & Output 07/16/17 07/17/17 07/17/17 18:59 06:59 18:59 Intake Total 4814.701 6273.167 Output Total 900 650 Balance 631.025 725.167 Weight (lbs) 76.43 kg 74.389 kg Intake: Intake, IV Amount 4793.243 7220.167 Cefepime 0.5 gm In 50 Dextrose 5% 50 ml @ 100 mls/hr IV Q24H [facility] Rx#: [id number] D5-0.45NS 1,000 ml @ 20 761 mls/hr IV .Q24H [facility] Rx#: [id number] Dextrose 70% 700 ml Amino 1200 594.167 Acids 8.5% 500 ml @ 50 mls/hr IV .Q24H [facility] Rx#: [id number] Nitroglycerin 50mg/D5W 31.025 Premix 50 mg In 250 ml @ Per Protocol IV TITR PRN Rx#:[id number] Oral 250 20 Output: Urine 900 650 Other: # Bowel Movements 1 Stool Characteristics Mucoid Green Active Medications: Current Medications Acetaminophen (Tylenol) 650 mg PO Q4H PRN PRN Reason: Pain Or Fever above 101 Stop: 08/20/17 19:40 Al Hydrox/Mg Hydrox/Simethicone (Maalox) 30 ml PO Q6H PRN PRN Reason: Dyspepsia Stop: 08/20/17 19:40 Albuterol Sulfate (Albuterol 2.5mg/3ml Neb Ud) 2.5 mg HHN Q2HRT PRN PRN Reason: Shortness of Breath or Wheeze Stop: 08/20/17 19:40 Last Admin: 07/11/17 05:23 Dose: 2.5 mg Albuterol/Ipratropium (Duoneb Neb) 3 ml HHN Q6HRT [facility] Stop: 08/30/17 18:59 Last Admin: 07/17/17 06:46 Dose: 3 ml Amlodipine Besylate (Norvasc) 10 mg PO DAILY [facility] Stop: 09/06/17 08:59 Last Admin: 07/16/17 08:35 Dose: 10 mg Bisacodyl (Dulcolax 10 Mg Supp) 10 mg RC DAILY [facility] Stop: 07/18/17 14:14 Last Admin: 07/16/17 09:00 Dose: 10 mg Diltiazem HCl (Cardizem) 20 mg IVP Q4H PRN PRN Reason: HR> 120 Stop: 09/04/17 17:55 Enalaprilat (Vasotec) 1.25 mg IVP Q6HR PRN PRN Reason: SBP 160 mmhg and above Stop: 09/08/17 05:59 Last Admin: 07/12/17 11:41 Dose: 1.25 mg Enalaprilat (Vasotec) 2.5 mg IVP Q4HR ED Stop: 09/10/17 15:59 Last Admin: 07/17/17 04:00 Dose: 2.5 mg Guaifenesin (Robitussin) 200 mg PO Q4HR PRN PRN Reason: Cough or Congestion Stop: 08/20/17 19:40 Haloperidol Decanoate (Haldol Dec) 25 mg IM QMONTH [facility] Stop: 08/23/17 09:59 Last Admin: 06/24/17 09:10 Dose: 25 mg Hydralazine HCl (Apresoline 20 Mg/Ml) 10 mg IV Q6HR PRN PRN Reason: SBP ABOVE 160 Stop: 08/25/17 12:20 Last Admin: 07/13/17 22:42 Dose: 10 mg Cefepime HCl 0.5 gm/ Dextrose 50 mls @ 100 mls/hr IV Q24H [facility] Stop: 09/06/17 13:59 Last Infusion: 07/16/17 15:00 Dose: Infused Dextrose/Sodium Chloride (D5-0.45ns) 1,000 mls @ 20 mls/hr IV .Q24H [facility] Stop: 09/08/17 09:25 Last Infusion: 07/17/17 06:00 Dose: 20 mls/hr Dextrose/ Amino Acids/ (Electrolytes) 1,200 mls @ 50 mls/hr IV .Q24H [facility] Stop: 08/09/17 15:59 Last Infusion: 07/17/17 06:00 Dose: 50 mls/hr Nitroglycerin/Dextrose (Nitroglycerin 50mg/Dextrose 5% Premix) 50 mg in 250 mls @ 0 mls/hr IV TITR PRN; Protocol; Per Protocol PRN Reason: BP MAINTENANCE Stop: 09/12/17 09:12 Last Titration: 07/16/17 09:00 Dose: 0 mcg/min, 0 mls/hr Insulin Aspart (Novolog) 0 units SUBQ Q6HR ED PRN Reason: Protocol Stop: 09/03/17 00:00 Last Admin: 07/17/17 05:10 Dose: Not Given Ipratropium [place] (Atrovent Neb 0.5mg/2.5ml) 0.5 mg IH Q2HRT PRN PRN Reason: Shortness of Breath or Wheeze Stop: 08/20/17 19:40 Last Admin: 07/11/17 05:23 Dose: 0.5 mg Labetalol HCl (Trandate) 10 mg IVP Q4HR PRN PRN Reason: SBP ABOVE 160 Stop: 09/09/17 13:16 Last Admin: 07/12/17 03:38 Dose: 10 mg Lactobacillus Rhamnosus (Culturelle 15b) 1 each PO DAILY [facility] Stop: 08/30/17 08:59 Last Admin: 07/16/17 08:35 Dose: 1 each Losartan Potassium (Cozaar) 100 mg PO DAILY ED Stop: 09/13/17 15:59 Last Admin: 07/16/17 08:35 Dose: 100 mg Mirtazapine (Remeron) 15 mg PO HS ED PRN Reason: Protocol Stop: 08/20/17 20:59 Last Admin: 07/16/17 20:43 Dose: 15 mg Miscellaneous (Probiotic Screen) 1 ea PRN PRN PRN Reason: PROTOCOL Stop: 08/29/17 11:59 Miscellaneous (Tpn Per Pharmacy) 1 ea PRN PRN PRN Reason: PROTOCOL Stop: 09/06/17 13:12 Morphine Sulfate (Morphine) 2 mg IVP Q4H PRN PRN Reason: Pain (Severe) Stop: 09/06/17 13:06 Last Admin: 07/09/17 22:21 Dose: 2 mg Nitroglycerin (Nitrostat) 0.4 mg SL Q5MIN PRN PRN Reason: Chest Pain Stop: 08/20/17 19:40 Ondansetron HCl (Zofran Odt) 4 mg PO Q6H PRN PRN Reason: Nausea / Vomiting Stop: 09/04/17 13:12 Pantoprazole Sodium (Protonix) 40 mg IVP BID [facility] Stop: 09/09/17 16:59 Last Admin: 07/16/17 17:00 Dose: 40 mg Sodium Phosphate (Fleet Enema) 135 ml RC PRN PRN PRN Reason: Constipation Stop: 09/10/17 09:36 Last Admin: 07/15/17 14:15 Dose: 135 ml General: Other HEENT: Atraumatic Neck: Supple Cardiovascular: Regular rate Abdomen: Bowel sounds, Soft, Other (dressing in midline no bleeding), no Tender , no Mass, no Guarding Extremities: Other (right arm picc) - Procedures Procedures: Procedures Procedure Code Date PARTIAL REMOVAL OF COLON 17704 06/21/17 RESECTION OF RIGHT LARGE INTESTINE, OPEN APPROACH [id number] 06/21/17 Assessment/Plan - Assessment Assessment: # Anemia, stable # Cecal neoplasm s/p R hemicolectomy # Diverticulosis EGD on 06/23 showed mild gastritis. Colonoscopy revealed 3-4cm cecal lesion and 2cm ascending colon polyp. Cecal lesion endoscopically looked like villous adenoma, and ascending colon may be adenoma vs villous adenoma. 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 These lesions could very well be contributing to her chronic anemia, although certainly there is anemia of chronic disease Now s/p R hemicolectomy on 06/27. 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 Now recovering post op. Plan: - Repeat colo in 1 year - cont post op care and diet as tolerated. If pt cannot meet caloric needs by oral intake, may need G tube. - appreciate hematology recs - cont iron supplementation - trend hgb, stable Thank you for allowing me to participate in this patient's care, GI to see intermittently. Please call with any questions
[2017-07-17] MEDS: Lactobacillus Rhamnosus GG 15 Billion CFU CAP.SPRINK PO SCH (08:43)
--- NOTE | 2017-07-17 10:14 | General Progress Note ---
Subjective - Review of Systems Service Date: 07/17/17 Events since last encounter: abdomen is soft, off pressors, having BM Subjective: abdomen is still distended but soft had BM with fleet yesterday CBC normal repeat Fleet Objective - Results Result Diagrams: 07/17/17 04:15 07/17/17 04:15 Recent Labs: Laboratory Last Values WBC 8.1 Th/cmm (4.8-10.8) 07/17/17 04:15 RBC 2.79 Mil/cmm (3.80-5.20) L 07/17/17 04:15 Hgb 7.8 gm/dL (12-16) L* 07/17/17 04:15 Hct 23.7 % (41.0-60) L 07/17/17 04:15 MCV 85.1 fl (81-100) 07/17/17 04:15 MCH 28.2 pg (27.0-31.0) 07/17/17 04:15 MCHC Differential 33.1 pg (28.0-36.0) 07/17/17 04:15 RDW 16.0 % (11.5-20.0) 07/17/17 04:15 Plt Count 259 Th/cmm (150-400) D 07/17/17 04:15 MPV 8.1 fl 07/17/17 04:15 Neutrophils % 63.7 % (40.0-80.0) 07/17/17 04:15 Band Neutrophils % 6 % (0-10) 07/15/17 04:15 Lymphocytes % 23.8 % (20.0-50.0) 07/17/17 04:15 Monocytes % 9.1 % (2.0-10.0) 07/17/17 04:15 Eosinophils % 2.4 % (0.0-5.0) 07/17/17 04:15 Basophils % 1.0 % (0.0-2.0) 07/17/17 04:15 Neutrophils (Manual) 62 % (40-80) 07/15/17 04:15 Lymphocytes 20 % (20-50) 07/15/17 04:15 Monocytes 8 % (2-10) 07/15/17 04:15 Eosinophils 4 % (0-5) 07/15/17 04:15 Hypochromia 1+ 07/04/17 04:30 Platelet Estimate ADEQUATE (NORMAL) 07/15/17 04:15 Polychromasia 1+ 07/04/17 04:30 Schistocytes 1+ 07/04/17 04:30 PT 12.0 SECONDS (9.5-11.5) H 07/08/17 04:15 INR 1.14 (0.5-1.4) 07/08/17 04:15 PTT (Actin FS) 25.0 SECONDS (26.0-38.0) L 07/08/17 04:15 D-Dimer 3600 ng/mL (100-400) H 06/21/17 18:20 Specimen Source Arterial 06/28/17 10:55 Sample Site Right Radial 06/28/17 10:55 pH 7.44 (7.35-7.45) 06/28/17 10:55 pCO2 36.0 mmHg (35.0-45.0) 06/28/17 10:55 pO2 100.0 mmHg (80.0-100.0) 06/28/17 10:55 HCO3 25.4 mEq/L (20.0-26.0) 06/28/17 10:55 Base Excess 0.6 mEq/L (-3.0-3.0) 06/28/17 10:55 O2 Saturation 98.0 % (92.0-100.0) 06/28/17 10:55 Rashid Test Positive 06/28/17 10:55 Vent Rate N/A 06/28/17 10:55 Inspired O2 28 06/28/17 10:55 Tidal Volume N/A 06/28/17 10:55 PEEP N/A 06/28/17 10:55 Pressure (ins/psv/peep) N/A 06/28/17 10:55 Critical Value DM 06/28/17 10:55 Sodium 134 mEq/L (136-145) L 07/17/17 04:15 Potassium 4.1 mEq/L (3.5-5.1) 07/17/17 04:15 Chloride 95 mEq/L (98-107) L 07/17/17 04:15 Carbon Dioxide 37.8 mEq/L (21.0-31.0) H 07/17/17 04:15 Anion Gap 5.3 (7.0-16.0) L 07/17/17 04:15 BUN 20 mg/dL (7-25) 07/17/17 04:15 Creatinine 1.0 mg/dL (0.6-1.2) 07/17/17 04:15 Est GFR ( Amer) TNP 07/17/17 04:15 Est GFR (Non-Af Amer) TNP 07/17/17 04:15 BUN/Creatinine Ratio 20.0 07/17/17 04:15 Glucose 160 mg/dL (70-105) H 07/17/17 04:15 POC Glucose 182 MG/DL (70 - 105) H 07/16/17 23:34 Hemoglobin A1c % 11.7 % (4.0-6.0) H 06/21/17 18:20 Calcium 8.0 mg/dL (8.6-10.3) L 07/17/17 04:15 Phosphorus 2.9 mg/dL (2.5-5.0) 07/17/17 04:15 Magnesium 2.2 mg/dL (1.9-2.7) 07/17/17 04:15 Iron 19 ug/dL (27-139) L 06/22/17 05:20 TIBC 176 ug/dL (250-450) L 06/22/17 05:20 Iron Saturation 11 % (15-55) L 06/22/17 05:20 Unsaturated IBC 157 ug/dL (118-369) 06/22/17 05:20 Ferritin 164 ng/mL (15-150) H 06/22/17 05:20 Total Bilirubin 0.4 mg/dL (0.3-1.0) 07/15/17 04:15 AST 16 U/L (13-39) 07/15/17 04:15 ALT 8 U/L (7-52) 07/15/17 04:15 Alkaline Phosphatase 119 U/L (34-104) H 07/15/17 04:15 Ammonia 38 umol/L (16-53) 07/08/17 04:15 Creatine Kinase 39 U/L (30-223) 06/21/17 18:20 Troponin I 0.01 ng/mL (0.01-0.05) 06/21/17 18:20 B-Natriuretic Peptide 108.0 pg/mL (5.0-100.0) H 07/09/17 04:30 Total Protein 5.0 gm/dL (6.0-8.3) L 07/15/17 04:15 Albumin 1.7 gm/dL (3.7-5.3) L 07/15/17 04:15 Globulin 3.3 gm/dL 07/15/17 04:15 Albumin/Globulin Ratio 0.5 (1.0-1.8) L 07/15/17 04:15 Prealbumin 14 mg/dL (9-32) 07/15/17 04:15 Triglycerides 88 mg/dL (<150) 07/15/17 04:15 Cholesterol 94 mg/dL (<200) 07/15/17 04:15 LDL Cholesterol Direct 65 mg/dL (75-193) L 06/21/17 18:20 HDL Cholesterol 43 mg/dL (23-92) 06/21/17 18:20 Vitamin B12 1797 pg/mL (232-1245) H 07/02/17 03:41 Folic Acid 10.3 ng/mL (>3.0) 07/02/17 03:41 Helicobacter pylori Ab NEGATIVE (NEGATIVE) 07/09/17 14:54 Blood Type O POSITIVE 07/09/17 09:16 Antibody Screen NEGATIVE 07/09/17 09:16 Crossmatch See Detail 07/09/17 09:16 - Physical Exam Vitals and I&O: Vital Signs Temp 97 F 07/17/17 07:00 Pulse 76 07/17/17 09:06 Resp 10 07/17/17 09:00 BP 152/86 07/17/17 09:06 Pulse Ox 95 07/17/17 09:00 Intake & Output 07/16/17 07/17/17 07/17/17 18:59 06:59 18:59 Intake Total 9524.396 5098.167 Output Total 900 650 Balance 631.025 725.167 Weight (lbs) 76.43 kg 74.389 kg Intake: Intake, IV Amount 9501.599 9206.167 Cefepime 0.5 gm In 50 Dextrose 5% 50 ml @ 100 mls/hr IV Q24H ED Rx#: [id number] D5-0.45NS 1,000 ml @ 20 761 mls/hr IV .Q24H ED Rx#: [id number] Dextrose 70% 700 ml Amino 1200 594.167 Acids 8.5% 500 ml @ 50 mls/hr IV .Q24H ED Rx#: [id number] Nitroglycerin 50mg/D5W 31.025 Premix 50 mg In 250 ml @ Per Protocol IV TITR PRN Rx#:[id number] Oral 250 20 Output: Urine 900 650 Other: # Bowel Movements 1 Stool Characteristics Mucoid Green Active Medications: Current Medications Acetaminophen (Tylenol) 650 mg PO Q4H PRN PRN Reason: Pain Or Fever above 101 Stop: 08/20/17 19:40 Al Hydrox/Mg Hydrox/Simethicone (Maalox) 30 ml PO Q6H PRN PRN Reason: Dyspepsia Stop: 08/20/17 19:40 Albuterol Sulfate (Albuterol 2.5mg/3ml Neb Ud) 2.5 mg HHN Q2HRT PRN PRN Reason: Shortness of Breath or Wheeze Stop: 08/20/17 19:40 Last Admin: 07/11/17 05:23 Dose: 2.5 mg Albuterol/Ipratropium (Duoneb Neb) 3 ml HHN Q6HRT [facility] Stop: 08/30/17 18:59 Last Admin: 07/17/17 06:46 Dose: 3 ml Amlodipine Besylate (Norvasc) 10 mg PO DAILY [facility] Stop: 09/06/17 08:59 Last Admin: 07/17/17 08:43 Dose: 10 mg Bisacodyl (Dulcolax 10 Mg Supp) 10 mg RC DAILY [facility] Stop: 07/18/17 14:14 Last Admin: 07/17/17 08:43 Dose: 10 mg Diltiazem HCl (Cardizem) 20 mg IVP Q4H PRN PRN Reason: HR> 120 Stop: 09/04/17 17:55 Enalaprilat (Vasotec) 1.25 mg IVP Q6HR PRN PRN Reason: SBP 160 mmhg and above Stop: 09/08/17 05:59 Last Admin: 07/12/17 11:41 Dose: 1.25 mg Enalaprilat (Vasotec) 2.5 mg IVP Q4HR [facility] Stop: 09/10/17 15:59 Last Admin: 07/17/17 09:06 Dose: 2.5 mg Guaifenesin (Robitussin) 200 mg PO Q4HR PRN PRN Reason: Cough or Congestion Stop: 08/20/17 19:40 Haloperidol Decanoate (Haldol Dec) 25 mg IM QMONTH [facility] Stop: 08/23/17 09:59 Last Admin: 06/24/17 09:10 Dose: 25 mg Hydralazine HCl (Apresoline 20 Mg/Ml) 10 mg IV Q6HR PRN PRN Reason: SBP ABOVE 160 Stop: 08/25/17 12:20 Last Admin: 07/13/17 22:42 Dose: 10 mg Cefepime HCl 0.5 gm/ Dextrose 50 mls @ 100 mls/hr IV Q24H [facility] Stop: 09/06/17 13:59 Last Infusion: 07/16/17 15:00 Dose: Infused Dextrose/Sodium Chloride (D5-0.45ns) 1,000 mls @ 20 mls/hr IV .Q24H [facility] Stop: 09/08/17 09:25 Last Infusion: 07/17/17 06:00 Dose: 20 mls/hr Dextrose/ Amino Acids/ (Electrolytes) 1,200 mls @ 50 mls/hr IV .Q24H [facility] Stop: 08/09/17 15:59 Last Infusion: 07/17/17 06:00 Dose: 50 mls/hr Nitroglycerin/Dextrose (Nitroglycerin 50mg/Dextrose 5% Premix) 50 mg in 250 mls @ 0 mls/hr IV TITR PRN; Protocol; Per Protocol PRN Reason: BP MAINTENANCE Stop: 09/12/17 09:12 Last Titration: 07/16/17 09:00 Dose: 0 mcg/min, 0 mls/hr Insulin Aspart (Novolog) 0 units SUBQ Q6HR ED PRN Reason: Protocol Stop: 09/03/17 00:00 Last Admin: 07/17/17 05:10 Dose: Not Given Ipratropium [place] (Atrovent Neb 0.5mg/2.5ml) 0.5 mg IH Q2HRT PRN PRN Reason: Shortness of Breath or Wheeze Stop: 08/20/17 19:40 Last Admin: 07/11/17 05:23 Dose: 0.5 mg Labetalol HCl (Trandate) 10 mg IVP Q4HR PRN PRN Reason: SBP ABOVE 160 Stop: 09/09/17 13:16 Last Admin: 07/12/17 03:38 Dose: 10 mg Lactobacillus Rhamnosus (Culturelle 15b) 1 each PO DAILY [facility] Stop: 08/30/17 08:59 Last Admin: 07/17/17 08:43 Dose: 1 each Losartan Potassium (Cozaar) 100 mg PO DAILY [facility] Stop: 09/13/17 15:59 Last Admin: 07/17/17 08:45 Dose: 100 mg Mirtazapine (Remeron) 15 mg PO HS ED PRN Reason: Protocol Stop: 08/20/17 20:59 Last Admin: 07/16/17 20:43 Dose: 15 mg Miscellaneous (Probiotic Screen) 1 ea PRN PRN PRN Reason: PROTOCOL Stop: 08/29/17 11:59 Miscellaneous (Tpn Per Pharmacy) 1 [facility] PRN PRN PRN Reason: PROTOCOL Stop: 09/06/17 13:12 Morphine Sulfate (Morphine) 2 mg IVP Q4H PRN PRN Reason: Pain (Severe) Stop: 09/06/17 13:06 Last Admin: 07/09/17 22:21 Dose: 2 mg Nitroglycerin (Nitrostat) 0.4 mg SL Q5MIN PRN PRN Reason: Chest Pain Stop: 08/20/17 19:40 Ondansetron HCl (Zofran Odt) 4 mg PO Q6H PRN PRN Reason: Nausea / Vomiting Stop: 09/04/17 13:12 Pantoprazole Sodium (Protonix) 40 mg IVP BID [facility] Stop: 09/09/17 16:59 Last Admin: 07/17/17 08:43 Dose: 40 mg Sodium Phosphate (Fleet Enema) 135 ml RC PRN PRN PRN Reason: Constipation Stop: 09/10/17 09:36 Last Admin: 07/15/17 14:15 Dose: 135 ml General: Other HEENT: Atraumatic Neck: Supple Cardiovascular: Regular rate Abdomen: Bowel sounds, Soft, Other (dressing in midline no bleeding), no Tender , no Mass, no Guarding Extremities: Other (right arm picc) - Procedures Procedures: Procedures Procedure Code Date PARTIAL REMOVAL OF COLON 17235 06/21/17 RESECTION OF RIGHT LARGE INTESTINE, OPEN APPROACH 5TEM0EE 06/21/17 Nutritional Asmnt/Malnutr-PDOC - Dietary Evaluation Malnutrition Findings (Please click <Entered> for more info): Nutritional Asmnt/Malnutrition Start: 06/22/17 18: 04 Text: Status: Complete Freq: Document 06/22/17 18:04 ERICHARSHAD (Rec: 06/22/17 18:15 GRISELDA [email or web address]) Nutritional Asmnt/Malnutrition Patient General Information Nutritional Screening High Risk Consult Diagnosis left lower extremity DVT, severe anemia, CHF, HTN Pertinent Medical Hx/Surgical Hx DM, anemia, renal stones, schizophrenia Subjective Information Pt seen lying in bed, confused at time of visit. Spoke with LULÚ Seay, RN reported pt ate well, consumed 60% of breakfast this morning. Per notes, pt has EGD and colonoscopy scheduled tommorrow. Current Diet Order/ Nutrition Support pureed Pertinent Medications D5-0.9ns, novolog, remeron, kcl Pertinent Labs 06/21 Na 137, K 3.5, Cl 100, BUN 24, Cr 1.3, Glucose 186, AST 10, ALT 6, Alb 2.6 06/22 POC 383 Nutritional Hx/Data Height 1.52 m Height (Calculated Centimeters) 152.4 Current Weight (lbs) 39.009 kg Weight (Calculated Kilograms) 39.0 Weight (Calculated Grams) 01492.9 [place] Body Weight 100 % [place] Body Weight 86 Body Mass Index (BMI) 16.7 Weight Status Underweight GI Symptoms GI Symptoms None Last BM none Difficult in: None Skin Integrity/Comment: intact Current %PO Fair (50-74%) Estimated Nutritional Goals Calories/Kcals/Kg 25-30 based on IBW 45kg Kcals Calculated 7244-5070 Protein g/k-1.2 Protein Calculated 45-54 Fluid: ml 1125-1350ml (1ml/kcal) Nutritional Problem 1. Problem Problem altered nutrition related lab values Etiology hx of DM Signs/Symptoms: Glucose 186, POC 383 Malnutrition Alert Protein-Calorie Malnutrition N/A Is there a minimum of two criteria No selected? Query Text:Check all the applicable criteria. A minimum of two criteria are recommended for diagnosis of either severe or non-severe malnutrition. Intervention/Recommendation Comments 1. Recommend CCHO, low sodium diet for optimal glycemic and BP control. RN notified. 2. Monitor PO intake, wt, labs and skin integrity 3. F/U as high risk in 2-3 days, 06/24-06/25 Expected Outcomes/Goals Expected Outcomes/Goals 1. PO intake to meet at least 75% of nutritional needs. 2. Wt stability, skin to remain intact, labs to improve
--- NOTE | 2017-07-17 13:54 | Internal Medicine Prog Note ---
Internal Medicine Subjective - Subjective Service Date: 07/17/17 (patient ate well today per nursing staff) Patient seen and examined:: with staff Patient is:: awake, non-verbal, non-interactive Patient Complaints of:: congestion Per staff patient has:: no adverse event, no episodes of fall, tolerating meds Internal Medicine Objective - Results Result Diagrams: 07/17/17 04:15 07/17/17 04:15 Recent Labs: Laboratory Last Values WBC 8.1 Th/cmm (4.8-10.8) 07/17/17 04:15 RBC 2.79 Mil/cmm (3.80-5.20) L 07/17/17 04:15 Hgb 7.8 gm/dL (12-16) L* 07/17/17 04:15 Hct 23.7 % (41.0-60) L 07/17/17 04:15 MCV 85.1 fl (81-100) 07/17/17 04:15 MCH 28.2 pg (27.0-31.0) 07/17/17 04:15 MCHC Differential 33.1 pg (28.0-36.0) 07/17/17 04:15 RDW 16.0 % (11.5-20.0) 07/17/17 04:15 Plt Count 259 Th/cmm (150-400) D 07/17/17 04:15 MPV 8.1 fl 07/17/17 04:15 Neutrophils % 63.7 % (40.0-80.0) 07/17/17 04:15 Band Neutrophils % 6 % (0-10) 07/15/17 04:15 Lymphocytes % 23.8 % (20.0-50.0) 07/17/17 04:15 Monocytes % 9.1 % (2.0-10.0) 07/17/17 04:15 Eosinophils % 2.4 % (0.0-5.0) 07/17/17 04:15 Basophils % 1.0 % (0.0-2.0) 07/17/17 04:15 Neutrophils (Manual) 62 % (40-80) 07/15/17 04:15 Lymphocytes 20 % (20-50) 07/15/17 04:15 Monocytes 8 % (2-10) 07/15/17 04:15 Eosinophils 4 % (0-5) 07/15/17 04:15 Hypochromia 1+ 07/04/17 04:30 Platelet Estimate ADEQUATE (NORMAL) 07/15/17 04:15 Polychromasia 1+ 07/04/17 04:30 Schistocytes 1+ 07/04/17 04:30 PT 12.0 SECONDS (9.5-11.5) H 07/08/17 04:15 INR 1.14 (0.5-1.4) 07/08/17 04:15 PTT (Actin FS) 25.0 SECONDS (26.0-38.0) L 07/08/17 04:15 D-Dimer 3600 ng/mL (100-400) H 06/21/17 18:20 Specimen Source Arterial 06/28/17 10:55 Sample Site Right Radial 06/28/17 10:55 pH 7.44 (7.35-7.45) 06/28/17 10:55 pCO2 36.0 mmHg (35.0-45.0) 06/28/17 10:55 pO2 100.0 mmHg (80.0-100.0) 06/28/17 10:55 HCO3 25.4 mEq/L (20.0-26.0) 06/28/17 10:55 Base Excess 0.6 mEq/L (-3.0-3.0) 06/28/17 10:55 O2 Saturation 98.0 % (92.0-100.0) 06/28/17 10:55 Rashid Test Positive 06/28/17 10:55 Vent Rate N/A 06/28/17 10:55 Inspired O2 28 06/28/17 10:55 Tidal Volume N/A 06/28/17 10:55 PEEP N/A 06/28/17 10:55 Pressure (ins/psv/peep) N/A 06/28/17 10:55 Critical Value DM 06/28/17 10:55 Sodium 134 mEq/L (136-145) L 07/17/17 04:15 Potassium 4.1 mEq/L (3.5-5.1) 07/17/17 04:15 Chloride 95 mEq/L (98-107) L 07/17/17 04:15 Carbon Dioxide 37.8 mEq/L (21.0-31.0) H 07/17/17 04:15 Anion Gap 5.3 (7.0-16.0) L 07/17/17 04:15 BUN 20 mg/dL (7-25) 07/17/17 04:15 Creatinine 1.0 mg/dL (0.6-1.2) 07/17/17 04:15 Est GFR ( Amer) TNP 07/17/17 04:15 Est GFR (Non-Af Amer) TNP 07/17/17 04:15 BUN/Creatinine Ratio 20.0 07/17/17 04:15 Glucose 160 mg/dL (70-105) H 07/17/17 04:15 POC Glucose 136 MG/DL (70 - 105) H 07/17/17 12:30 Hemoglobin A1c % 11.7 % (4.0-6.0) H 06/21/17 18:20 Calcium 8.0 mg/dL (8.6-10.3) L 07/17/17 04:15 Phosphorus 2.9 mg/dL (2.5-5.0) 07/17/17 04:15 Magnesium 2.2 mg/dL (1.9-2.7) 07/17/17 04:15 Iron 19 ug/dL (27-139) L 06/22/17 05:20 TIBC 176 ug/dL (250-450) L 06/22/17 05:20 Iron Saturation 11 % (15-55) L 06/22/17 05:20 Unsaturated IBC 157 ug/dL (118-369) 06/22/17 05:20 Ferritin 164 ng/mL (15-150) H 06/22/17 05:20 Total Bilirubin 0.4 mg/dL (0.3-1.0) 07/15/17 04:15 AST 16 U/L (13-39) 07/15/17 04:15 ALT 8 U/L (7-52) 07/15/17 04:15 Alkaline Phosphatase 119 U/L (34-104) H 07/15/17 04:15 Ammonia 38 umol/L (16-53) 07/08/17 04:15 Creatine Kinase 39 U/L (30-223) 06/21/17 18:20 Troponin I 0.01 ng/mL (0.01-0.05) 06/21/17 18:20 B-Natriuretic Peptide 108.0 pg/mL (5.0-100.0) H 07/09/17 04:30 Total Protein 5.0 gm/dL (6.0-8.3) L 07/15/17 04:15 Albumin 1.7 gm/dL (3.7-5.3) L 07/15/17 04:15 Globulin 3.3 gm/dL 07/15/17 04:15 Albumin/Globulin Ratio 0.5 (1.0-1.8) L 07/15/17 04:15 Prealbumin 14 mg/dL (9-32) 07/15/17 04:15 Triglycerides 88 mg/dL (<150) 07/15/17 04:15 Cholesterol 94 mg/dL (<200) 07/15/17 04:15 LDL Cholesterol Direct 65 mg/dL (75-193) L 06/21/17 18:20 HDL Cholesterol 43 mg/dL (23-92) 06/21/17 18:20 Vitamin B12 1797 pg/mL (232-1245) H 07/02/17 03:41 Folic Acid 10.3 ng/mL (>3.0) 07/02/17 03:41 Helicobacter pylori Ab NEGATIVE (NEGATIVE) 07/09/17 14:54 Blood Type O POSITIVE 07/09/17 09:16 Antibody Screen NEGATIVE 07/09/17 09:16 Crossmatch See Detail 07/09/17 09:16 - Physical Exam Vitals and I&O: Vital Signs Temp 97 F 07/17/17 07:00 Pulse 74 07/17/17 12:49 Resp 13 07/17/17 12:17 BP 132/66 07/17/17 12:49 Pulse Ox 96 07/17/17 12:17 Intake & Output 07/16/17 07/17/17 07/17/17 18:59 06:59 18:59 Intake Total 0741.329 9069.167 Output Total 900 650 Balance 631.025 725.167 Weight (lbs) 168 lb 8 oz 164 lb Intake: Intake, IV Amount 1601.967 4550.167 Cefepime 0.5 gm In 50 Dextrose 5% 50 ml @ 100 mls/hr IV Q24H ED Rx#: [id number] D5-0.45NS 1,000 ml @ 20 761 mls/hr IV .Q24H ED Rx#: [id number] Dextrose 70% 700 ml Amino 1200 594.167 Acids 8.5% 500 ml @ 50 mls/hr IV .Q24H ED Rx#: [id number] Nitroglycerin 50mg/D5W 31.025 Premix 50 mg In 250 ml @ Per Protocol IV TITR PRN Rx#:[id number] Oral 250 20 Output: Urine 900 650 Other: # Bowel Movements 1 Stool Characteristics Mucoid Green Active Medications: Current Medications Acetaminophen (Tylenol) 650 mg PO Q4H PRN PRN Reason: Pain Or Fever above 101 Stop: 08/20/17 19:40 Al Hydrox/Mg Hydrox/Simethicone (Maalox) 30 ml PO Q6H PRN PRN Reason: Dyspepsia Stop: 08/20/17 19:40 Albuterol Sulfate (Albuterol 2.5mg/3ml Neb Ud) 2.5 mg HHN Q2HRT PRN PRN Reason: Shortness of Breath or Wheeze Stop: 08/20/17 19:40 Last Admin: 07/11/17 05:23 Dose: 2.5 mg Albuterol/Ipratropium (Duoneb Neb) 3 ml HHN Q6HRT [facility] Stop: 08/30/17 18:59 Last Admin: 07/17/17 12:17 Dose: 3 ml Amlodipine Besylate (Norvasc) 10 mg PO DAILY [facility] Stop: 09/06/17 08:59 Last Admin: 07/17/17 08:43 Dose: 10 mg Bisacodyl (Dulcolax 10 Mg Supp) 10 mg RC DAILY [facility] Stop: 07/18/17 14:14 Last Admin: 07/17/17 08:43 Dose: 10 mg Diltiazem HCl (Cardizem) 20 mg IVP Q4H PRN PRN Reason: HR> 120 Stop: 09/04/17 17:55 Enalaprilat (Vasotec) 1.25 mg IVP Q6HR PRN PRN Reason: SBP 160 mmhg and above Stop: 09/08/17 05:59 Last Admin: 07/12/17 11:41 Dose: 1.25 mg Enalaprilat (Vasotec) 2.5 mg IVP Q4HR [facility] Stop: 09/10/17 15:59 Last Admin: 07/17/17 12:49 Dose: 2.5 mg Guaifenesin (Robitussin) 200 mg PO Q4HR PRN PRN Reason: Cough or Congestion Stop: 08/20/17 19:40 Haloperidol Decanoate (Haldol Dec) 25 mg IM QMONTH [facility] Stop: 08/23/17 09:59 Last Admin: 06/24/17 09:10 Dose: 25 mg Hydralazine HCl (Apresoline 20 Mg/Ml) 10 mg IV Q6HR PRN PRN Reason: SBP ABOVE 160 Stop: 08/25/17 12:20 Last Admin: 07/13/17 22:42 Dose: 10 mg Cefepime HCl 0.5 gm/ Dextrose 50 mls @ 100 mls/hr IV Q24H [facility] Stop: 09/06/17 13:59 Last Infusion: 07/16/17 15:00 Dose: Infused Dextrose/Sodium Chloride (D5-0.45ns) 1,000 mls @ 20 mls/hr IV .Q24H [facility] Stop: 09/08/17 09:25 Last Infusion: 07/17/17 06:00 Dose: 20 mls/hr Dextrose/ Amino Acids/ (Electrolytes) 1,200 mls @ 50 mls/hr IV .Q24H [facility] Stop: 08/09/17 15:59 Last Infusion: 07/17/17 06:00 Dose: 50 mls/hr Nitroglycerin/Dextrose (Nitroglycerin 50mg/Dextrose 5% Premix) 50 mg in 250 mls @ 0 mls/hr IV TITR PRN; Protocol; Per Protocol PRN Reason: BP MAINTENANCE Stop: 09/12/17 09:12 Last Titration: 07/16/17 09:00 Dose: 0 mcg/min, 0 mls/hr Insulin Aspart (Novolog) 0 units SUBQ Q6HR ED PRN Reason: Protocol Stop: 09/03/17 00:00 Last Admin: 07/17/17 12:32 Dose: Not Given Ipratropium [place] (Atrovent Neb 0.5mg/2.5ml) 0.5 mg IH Q2HRT PRN PRN Reason: Shortness of Breath or Wheeze Stop: 08/20/17 19:40 Last Admin: 07/11/17 05:23 Dose: 0.5 mg Labetalol HCl (Trandate) 10 mg IVP Q4HR PRN PRN Reason: SBP ABOVE 160 Stop: 09/09/17 13:16 Last Admin: 07/12/17 03:38 Dose: 10 mg Lactobacillus Rhamnosus (Culturelle 15b) 1 each PO DAILY [facility] Stop: 08/30/17 08:59 Last Admin: 07/17/17 08:43 Dose: 1 each Losartan Potassium (Cozaar) 100 mg PO DAILY [facility] Stop: 09/13/17 15:59 Last Admin: 07/17/17 08:45 Dose: 100 mg Mirtazapine (Remeron) 15 mg PO HS ED PRN Reason: Protocol Stop: 08/20/17 20:59 Last Admin: 07/16/17 20:43 Dose: 15 mg Miscellaneous (Probiotic Screen) 1 ea PRN PRN PRN Reason: PROTOCOL Stop: 08/29/17 11:59 Miscellaneous (Tpn Per Pharmacy) 1 ea PRN PRN PRN Reason: PROTOCOL Stop: 09/06/17 13:12 Morphine Sulfate (Morphine) 2 mg IVP Q4H PRN PRN Reason: Pain (Severe) Stop: 09/06/17 13:06 Last Admin: 07/09/17 22:21 Dose: 2 mg Nitroglycerin (Nitrostat) 0.4 mg SL Q5MIN PRN PRN Reason: Chest Pain Stop: 08/20/17 19:40 Ondansetron HCl (Zofran Odt) 4 mg PO Q6H PRN PRN Reason: Nausea / Vomiting Stop: 09/04/17 13:12 Pantoprazole Sodium (Protonix) 40 mg IVP BID [facility] Stop: 09/09/17 16:59 Last Admin: 07/17/17 08:43 Dose: 40 mg Sodium Phosphate (Fleet Enema) 135 ml RC PRN PRN PRN Reason: Constipation Stop: 09/10/17 09:36 Last Admin: 07/15/17 14:15 Dose: 135 ml General: weak, demented, thin, bilateral temporal wasting HEENT: NC/AT, PERRLA, thinning hair, other (ngt) Neck: Supple Lungs: rales, ronchi Cardiovascular: RRR, Normal S1, Normal S2, without murmur Abdomen: non-tender, distended Extremities: excoriation, contracture, deformity Neurological: lethargic, unsteady, bedbound - Procedures Procedures: Procedures Procedure Code Date PARTIAL REMOVAL OF COLON 66185 06/21/17 RESECTION OF RIGHT LARGE INTESTINE, OPEN APPROACH [id number] 06/21/17 Internal Medicine Assmt/Plan - Assessment Assessment: acute dvt cecal mass s/p exploratory lap right right hemicolectomy severe anemia dm2 schizophrenia htn psychosis hypokalemia - Plan Plan: monitor h/h cardiology follow up monitor electrolytes follow up labs in am will follow production consultant recommendations Nutritional Asmnt/Malnutr-PDOC - Dietary Evaluation Malnutrition Findings (Please click <Entered> for more info): Nutritional Asmnt/Malnutrition Start: 06/22/17 18: 04 Text: Status: Complete Freq: Document 06/22/17 18:04 GRISELDA (Rec: 06/22/17 18:15 [email or web address] [email or web address]) Nutritional Asmnt/Malnutrition Patient General Information Nutritional Screening High Risk Consult Diagnosis left lower extremity DVT, severe anemia, CHF, HTN Pertinent Medical Hx/Surgical Hx DM, anemia, renal stones, schizophrenia Subjective Information Pt seen lying in bed, confused at time of visit. Spoke with LULÚ Seay RN reported pt ate well, consumed 60% of breakfast this morning. Per notes, pt has EGD and colonoscopy scheduled tommorrow. Current Diet Order/ Nutrition Support pureed Pertinent Medications D5-0.9ns, novolog, remeron, kcl Pertinent Labs 06/21 Na 137, K 3.5, Cl 100, BUN 24, Cr 1.3, Glucose 186, AST 10, ALT 6, Alb 2.6 06/22 POC 383 Nutritional Hx/Data Height 5 ft Height (Calculated Centimeters) 152.4 Current Weight (lbs) 86 lb Weight (Calculated Kilograms) 39.0 Weight (Calculated Grams) 97865.9 [place] Body Weight 100 % [place] Body Weight 86 Body Mass Index (BMI) 16.7 Weight Status Underweight GI Symptoms GI Symptoms None Last BM none Difficult in: None Skin Integrity/Comment: intact Current %PO Fair (50-74%) Estimated Nutritional Goals Calories/Kcals/Kg 25-30 based on IBW 45kg Kcals Calculated 5133-6979 Protein g/k-1.2 Protein Calculated 45-54 Fluid: ml 1125-1350ml (1ml/kcal) Nutritional Problem 1. Problem Problem altered nutrition related lab values Etiology hx of DM Signs/Symptoms: Glucose 186, POC 383 Malnutrition Alert Protein-Calorie Malnutrition N/A Is there a minimum of two criteria No selected? Query Text:Check all the applicable criteria. A minimum of two criteria are recommended for diagnosis of either severe or non-severe malnutrition. Intervention/Recommendation Comments 1. Recommend CCHO, low sodium diet for optimal glycemic and BP control. RN notified. 2. Monitor PO intake, wt, labs and skin integrity 3. F/U as high risk in 2-3 days, 06/24-06/25 Expected Outcomes/Goals Expected Outcomes/Goals 1. PO intake to meet at least 75% of nutritional needs. 2. Wt stability, skin to remain intact, labs to improve
[2017-07-17] MEDS: TPN 8.5%-70% CUSTOM IV SCH (16:35)
[2017-07-18] MEDS: Albuterol/Ipratropium Neb 3 ML AERS HHN SCH ×4 (00:44→19:17)
[2017-07-18 04:41] LABS: MEAN PLATELET VOLUME 8.6 fl; RED BLOOD COUNT 2.85 Mil/cmm (3.80-5.20)
[2017-07-18 04:49] LABS: MEAN CELL VOLUME 84.2 fl (81-100); MEAN CORPUSCULAR HEMOGLOBIN 27.8 pg (27.0-31.0); MEAN CORPUSCULAR HGB CONC 33.1 pg (28.0-36.0); PLATELET COUNT 260 Th/cmm (150-400); RED CELL DISTRIBUTION WIDTH 16.1 % (11.5-20.0); WHITE BLOOD COUNT 7.2 Th/cmm (4.8-10.8)
[2017-07-18 04:56] LABS: HEMOGLOBIN 7.9 gm/dL (12-16); MANUAL DIFF REQUIRED? YES
[2017-07-18 05:04] LABS: ANION GAP 5.8 (7.0-16.0); BUN - UREA NITROGEN 22 mg/dL (7-25); CALCIUM SERUM 8.2 mg/dL (8.6-10.3); CARBON DIOXIDE 37.6 mEq/L (21.0-31.0); CHLORIDE 100 mEq/L (98-107); CREATININE - SERUM 1.1 mg/dL (0.6-1.2); GLUCOSE 148 mg/dL (70-105); MAGNESIUM 2.4 mg/dL (1.9-2.7); PHOSPHOROUS 3.4 mg/dL (2.5-5.0); POTASSIUM SERUM 4.4 mEq/L (3.5-5.1); SODIUM SERUM 139 mEq/L (136-145)
[2017-07-18 05:54] LABS: EOSINOPHIL 4 % (0-5); LYMPHOCYTE 27 % (20-50); MONOCYTE 4 % (2-10); NEUTROPHILS 65 % (40-80); TOTAL CELLS COUNTED 100
[2017-07-18 05:55] LABS: PLATELET ESTIMATE ADEQUATE (NORMAL)
[2017-07-18] MEDS: INSULIN ASPART, RECOMBINANT 100 UNITS/ML SUBQ SCH ×5 (06:00→23:38)
[2017-07-18] MEDS: D5-0.45NS 1,000 ML IV SCH (06:00)
[2017-07-18] MEDS: Lactobacillus Rhamnosus GG 15 Billion CFU CAP.SPRINK PO SCH (08:47)
--- NOTE | 2017-07-18 10:59 | General Progress Note ---
Subjective - Review of Systems Service Date: 07/18/17 Objective - Results Result Diagrams: 07/18/17 04:00 07/18/17 04:00 Recent Labs: Laboratory Last Values WBC 7.2 Th/cmm (4.8-10.8) 07/18/17 04:00 RBC 2.85 Mil/cmm (3.80-5.20) L 07/18/17 04:00 Hgb 7.9 gm/dL (12-16) L* 07/18/17 04:00 Hct 24.0 % (41.0-60) L 07/18/17 04:00 MCV 84.2 fl (81-100) 07/18/17 04:00 MCH 27.8 pg (27.0-31.0) 07/18/17 04:00 MCHC Differential 33.1 pg (28.0-36.0) 07/18/17 04:00 RDW 16.1 % (11.5-20.0) 07/18/17 04:00 Plt Count 260 Th/cmm (150-400) 07/18/17 04:00 MPV 8.6 fl 07/18/17 04:00 Neutrophils % 63.7 % (40.0-80.0) 07/17/17 04:15 Band Neutrophils % 6 % (0-10) 07/15/17 04:15 Lymphocytes % 23.8 % (20.0-50.0) 07/17/17 04:15 Monocytes % 9.1 % (2.0-10.0) 07/17/17 04:15 Eosinophils % 2.4 % (0.0-5.0) 07/17/17 04:15 Basophils % 1.0 % (0.0-2.0) 07/17/17 04:15 Neutrophils (Manual) 65 % (40-80) 07/18/17 04:00 Lymphocytes 27 % (20-50) 07/18/17 04:00 Monocytes 4 % (2-10) 07/18/17 04:00 Eosinophils 4 % (0-5) 07/18/17 04:00 Hypochromia 1+ 07/04/17 04:30 Platelet Estimate ADEQUATE (NORMAL) 07/18/17 04:00 Polychromasia 1+ 07/04/17 04:30 Schistocytes 1+ 07/04/17 04:30 PT 12.0 SECONDS (9.5-11.5) H 07/08/17 04:15 INR 1.14 (0.5-1.4) 07/08/17 04:15 PTT (Actin FS) 25.0 SECONDS (26.0-38.0) L 07/08/17 04:15 D-Dimer 3600 ng/mL (100-400) H 06/21/17 18:20 Specimen Source Arterial 06/28/17 10:55 Sample Site Right Radial 06/28/17 10:55 pH 7.44 (7.35-7.45) 06/28/17 10:55 pCO2 36.0 mmHg (35.0-45.0) 06/28/17 10:55 pO2 100.0 mmHg (80.0-100.0) 06/28/17 10:55 HCO3 25.4 mEq/L (20.0-26.0) 06/28/17 10:55 Base Excess 0.6 mEq/L (-3.0-3.0) 06/28/17 10:55 O2 Saturation 98.0 % (92.0-100.0) 06/28/17 10:55 Rashid Test Positive 06/28/17 10:55 Vent Rate N/A 06/28/17 10:55 Inspired O2 28 06/28/17 10:55 Tidal Volume N/A 06/28/17 10:55 PEEP N/A 06/28/17 10:55 Pressure (ins/psv/peep) N/A 06/28/17 10:55 Critical Value DM 06/28/17 10:55 Sodium 139 mEq/L (136-145) 07/18/17 04:00 Potassium 4.4 mEq/L (3.5-5.1) 07/18/17 04:00 Chloride 100 mEq/L (98-107) 07/18/17 04:00 Carbon Dioxide 37.6 mEq/L (21.0-31.0) H 07/18/17 04:00 Anion Gap 5.8 (7.0-16.0) L 07/18/17 04:00 BUN 22 mg/dL (7-25) 07/18/17 04:00 Creatinine 1.1 mg/dL (0.6-1.2) 07/18/17 04:00 Est GFR ( Amer) TNP 07/18/17 04:00 Est GFR (Non-Af Amer) TNP 07/18/17 04:00 BUN/Creatinine Ratio 20.0 07/18/17 04:00 Glucose 148 mg/dL (70-105) H 07/18/17 04:00 POC Glucose 161 MG/DL (70 - 105) H 07/17/17 23:37 Hemoglobin A1c % 11.7 % (4.0-6.0) H 06/21/17 18:20 Calcium 8.2 mg/dL (8.6-10.3) L 07/18/17 04:00 Phosphorus 3.4 mg/dL (2.5-5.0) 07/18/17 04:00 Magnesium 2.4 mg/dL (1.9-2.7) 07/18/17 04:00 Iron 19 ug/dL (27-139) L 06/22/17 05:20 TIBC 176 ug/dL (250-450) L 06/22/17 05:20 Iron Saturation 11 % (15-55) L 06/22/17 05:20 Unsaturated IBC 157 ug/dL (118-369) 06/22/17 05:20 Ferritin 164 ng/mL (15-150) H 06/22/17 05:20 Total Bilirubin 0.4 mg/dL (0.3-1.0) 07/15/17 04:15 AST 16 U/L (13-39) 07/15/17 04:15 ALT 8 U/L (7-52) 07/15/17 04:15 Alkaline Phosphatase 119 U/L (34-104) H 07/15/17 04:15 Ammonia 38 umol/L (16-53) 07/08/17 04:15 Creatine Kinase 39 U/L (30-223) 06/21/17 18:20 Troponin I 0.01 ng/mL (0.01-0.05) 06/21/17 18:20 B-Natriuretic Peptide 108.0 pg/mL (5.0-100.0) H 07/09/17 04:30 Total Protein 5.0 gm/dL (6.0-8.3) L 07/15/17 04:15 Albumin 1.7 gm/dL (3.7-5.3) L 07/15/17 04:15 Globulin 3.3 gm/dL 07/15/17 04:15 Albumin/Globulin Ratio 0.5 (1.0-1.8) L 07/15/17 04:15 Prealbumin 14 mg/dL (9-32) 07/15/17 04:15 Triglycerides 88 mg/dL (<150) 07/15/17 04:15 Cholesterol 94 mg/dL (<200) 07/15/17 04:15 LDL Cholesterol Direct 65 mg/dL (75-193) L 06/21/17 18:20 HDL Cholesterol 43 mg/dL (23-92) 06/21/17 18:20 Vitamin B12 1797 pg/mL (232-1245) H 07/02/17 03:41 Folic Acid 10.3 ng/mL (>3.0) 07/02/17 03:41 Helicobacter pylori Ab NEGATIVE (NEGATIVE) 07/09/17 14:54 Blood Type O POSITIVE 07/09/17 09:16 Antibody Screen NEGATIVE 07/09/17 09:16 Crossmatch See Detail 07/09/17 09:16 - Physical Exam Vitals and I&O: Vital Signs Temp 97.4 F 07/18/17 08:00 Pulse 77 07/18/17 10:00 Resp 12 07/18/17 10:00 BP 146/83 07/18/17 10:00 Pulse Ox 98 07/18/17 10:00 Intake & Output 07/17/17 07/18/17 07/18/17 18:59 06:59 18:59 Intake Total 1018.167 870.833 Output Total 801 550 Balance 217.167 320.833 Weight (lbs) 74.389 kg 74.389 kg Intake: Intake, IV Amount 818.167 670.833 Cefepime 0.5 gm In 50 Dextrose 5% 50 ml @ 100 mls/hr IV Q24H ED Rx#: [id number] D5-0.45NS 1,000 ml @ 20 239 mls/hr IV .Q24H ED Rx#: [id number] Dextrose 70% 700 ml Amino 529.167 670.833 Acids 8.5% 500 ml @ 50 mls/hr IV .Q24H ED Rx#: [id number] Oral 200 200 Output: Urine 800 550 Stool 1 0 Other: Stool Characteristics Formed Active Medications: Current Medications Acetaminophen (Tylenol) 650 mg PO Q4H PRN PRN Reason: Pain Or Fever above 101 Stop: 08/20/17 19:40 Al Hydrox/Mg Hydrox/Simethicone (Maalox) 30 ml PO Q6H PRN PRN Reason: Dyspepsia Stop: 08/20/17 19:40 Albuterol Sulfate (Albuterol 2.5mg/3ml Neb Ud) 2.5 mg HHN Q2HRT PRN PRN Reason: Shortness of Breath or Wheeze Stop: 08/20/17 19:40 Last Admin: 07/11/17 05:23 Dose: 2.5 mg Albuterol/Ipratropium (Duoneb Neb) 3 ml HHN Q6HRT [facility] Stop: 08/30/17 18:59 Last Admin: 07/18/17 07:32 Dose: 3 ml Amlodipine Besylate (Norvasc) 10 mg PO DAILY [facility] Stop: 09/06/17 08:59 Last Admin: 07/18/17 08:47 Dose: 10 mg Bisacodyl (Dulcolax 10 Mg Supp) 10 mg RC DAILY [facility] Stop: 07/18/17 14:14 Last Admin: 07/18/17 08:47 Dose: 10 mg Diltiazem HCl (Cardizem) 20 mg IVP Q4H PRN PRN Reason: HR> 120 Stop: 09/04/17 17:55 Enalaprilat (Vasotec) 1.25 mg IVP Q6HR PRN PRN Reason: SBP 160 mmhg and above Stop: 09/08/17 05:59 Last Admin: 07/12/17 11:41 Dose: 1.25 mg Enalaprilat (Vasotec) 2.5 mg IVP Q4HR [facility] Stop: 09/10/17 15:59 Last Admin: 07/18/17 08:48 Dose: 2.5 mg Guaifenesin (Robitussin) 200 mg PO Q4HR PRN PRN Reason: Cough or Congestion Stop: 08/20/17 19:40 Haloperidol Decanoate (Haldol Dec) 25 mg IM QMONTH [facility] Stop: 08/23/17 09:59 Last Admin: 06/24/17 09:10 Dose: 25 mg Hydralazine HCl (Apresoline 20 Mg/Ml) 10 mg IV Q6HR PRN PRN Reason: SBP ABOVE 160 Stop: 08/25/17 12:20 Last Admin: 07/13/17 22:42 Dose: 10 mg Cefepime HCl 0.5 gm/ Dextrose 50 mls @ 100 mls/hr IV Q24H [facility] Stop: 09/06/17 13:59 Last Infusion: 07/17/17 15:15 Dose: Infused Dextrose/Sodium Chloride (D5-0.45ns) 1,000 mls @ 20 mls/hr IV .Q24H [facility] Stop: 09/08/17 09:25 Last Admin: 07/18/17 06:00 Dose: 20 mls/hr Dextrose/ Amino Acids/ (Electrolytes) 1,200 mls @ 50 mls/hr IV .Q24H [facility] Stop: 08/09/17 15:59 Last Infusion: 07/18/17 06:00 Dose: 50 mls/hr Nitroglycerin/Dextrose (Nitroglycerin 50mg/Dextrose 5% Premix) 50 mg in 250 mls @ 0 mls/hr IV TITR PRN; Protocol; Per Protocol PRN Reason: BP MAINTENANCE Stop: 09/12/17 09:12 Last Titration: 07/16/17 09:00 Dose: 0 mcg/min, 0 mls/hr Insulin Aspart (Novolog) 0 units SUBQ Q6HR ED PRN Reason: Protocol Stop: 09/03/17 00:00 Last Admin: 07/18/17 06:00 Dose: Not Given Ipratropium [place] (Atrovent Neb 0.5mg/2.5ml) 0.5 mg IH Q2HRT PRN PRN Reason: Shortness of Breath or Wheeze Stop: 08/20/17 19:40 Last Admin: 07/11/17 05:23 Dose: 0.5 mg Labetalol HCl (Trandate) 10 mg IVP Q4HR PRN PRN Reason: SBP ABOVE 160 Stop: 09/09/17 13:16 Last Admin: 07/12/17 03:38 Dose: 10 mg Lactobacillus Rhamnosus (Culturelle 15b) 1 each PO DAILY [facility] Stop: 08/30/17 08:59 Last Admin: 07/18/17 08:47 Dose: 1 each Losartan Potassium (Cozaar) 100 mg PO DAILY [facility] Stop: 09/13/17 15:59 Last Admin: 07/18/17 08:48 Dose: 100 mg Mirtazapine (Remeron) 15 mg PO HS ED PRN Reason: Protocol Stop: 08/20/17 20:59 Last Admin: 07/17/17 21:00 Dose: 15 mg Miscellaneous (Probiotic Screen) 1 ea PRN PRN PRN Reason: PROTOCOL Stop: 08/29/17 11:59 Miscellaneous (Tpn Per Pharmacy) 1 ea PRN PRN PRN Reason: PROTOCOL Stop: 09/06/17 13:12 Morphine Sulfate (Morphine) 2 mg IVP Q4H PRN PRN Reason: Pain (Severe) Stop: 09/06/17 13:06 Last Admin: 07/09/17 22:21 Dose: 2 mg Nitroglycerin (Nitrostat) 0.4 mg SL Q5MIN PRN PRN Reason: Chest Pain Stop: 08/20/17 19:40 Ondansetron HCl (Zofran Odt) 4 mg PO Q6H PRN PRN Reason: Nausea / Vomiting Stop: 09/04/17 13:12 Pantoprazole Sodium (Protonix) 40 mg IVP BID ED Stop: 09/09/17 16:59 Last Admin: 07/18/17 08:49 Dose: 40 mg Sodium Phosphate (Fleet Enema) 135 ml RC PRN PRN PRN Reason: Constipation Stop: 09/10/17 09:36 Last Admin: 07/15/17 14:15 Dose: 135 ml General: Other HEENT: Atraumatic Neck: Supple Cardiovascular: Regular rate Abdomen: Bowel sounds, Soft, Other (dressing in midline no bleeding), no Tender , no Mass, no Guarding Extremities: Other (right arm picc) - Procedures Procedures: Procedures Procedure Code Date PARTIAL REMOVAL OF COLON 34147 06/21/17 RESECTION OF RIGHT LARGE INTESTINE, OPEN APPROACH [id number] 06/21/17 Assessment/Plan - Assessment Assessment: * DVT * ANEMIA secondary to GI bleeding * CKD * 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 and recent bleeding. monitor cbc Path. discussed with pathologist. no invasion. no transfusion today Nutritional Asmnt/Malnutr-PDOC - Dietary Evaluation Malnutrition Findings (Please click <Entered> for more info): Nutritional Asmnt/Malnutrition Start: 06/22/17 18: 04 Text: Status: Complete Freq: Document 06/22/17 18:04 GRISELDA (Rec: 06/22/17 18:15 GRISELDA [email or web address]) Nutritional Asmnt/Malnutrition Patient General Information Nutritional Screening High Risk Consult Diagnosis left lower extremity DVT, severe anemia, CHF, HTN Pertinent Medical Hx/Surgical Hx DM, anemia, renal stones, schizophrenia Subjective Information Pt seen lying in bed, confused at time of visit. Spoke with LULÚ Seay, RN reported pt ate well, consumed 60% of breakfast this morning. Per notes, pt has EGD and colonoscopy scheduled tommorrow. Current Diet Order/ Nutrition Support pureed Pertinent Medications D5-0.9ns, novolog, remeron, kcl Pertinent Labs 06/21 Na 137, K 3.5, Cl 100, BUN 24, Cr 1.3, Glucose 186, AST 10, ALT 6, Alb 2.6 06/22 POC 383 Nutritional Hx/Data Height 1.52 m Height (Calculated Centimeters) 152.4 Current Weight (lbs) 39.009 kg Weight (Calculated Kilograms) 39.0 Weight (Calculated Grams) 63730.9 [place] Body Weight 100 % [place] Body Weight 86 Body Mass Index (BMI) 16.7 Weight Status Underweight GI Symptoms GI Symptoms None Last BM none Difficult in: None Skin Integrity/Comment: intact Current %PO Fair (50-74%) Estimated Nutritional Goals Calories/Kcals/Kg 25-30 based on IBW 45kg Kcals Calculated 4129-9972 Protein g/k-1.2 Protein Calculated 45-54 Fluid: ml 1125-1350ml (1ml/kcal) Nutritional Problem 1. Problem Problem altered nutrition related lab values Etiology hx of DM Signs/Symptoms: Glucose 186, POC 383 Malnutrition Alert Protein-Calorie Malnutrition N/A Is there a minimum of two criteria No selected? Query Text:Check all the applicable criteria. A minimum of two criteria are recommended for diagnosis of either severe or non-severe malnutrition. Intervention/Recommendation Comments 1. Recommend CCHO, low sodium diet for optimal glycemic and BP control. RN notified. 2. Monitor PO intake, wt, labs and skin integrity 3. F/U as high risk in 2-3 days, 06/24-06/25 Expected Outcomes/Goals Expected Outcomes/Goals 1. PO intake to meet at least 75% of nutritional needs. 2. Wt stability, skin to remain intact, labs to improve
--- NOTE | 2017-07-18 11:51 | Internal Medicine Prog Note ---
Internal Medicine Subjective - Subjective Service Date: 07/18/17 (remains on tpn, poor oral intake today per nursing staff ) Patient is:: awake, non-verbal, non-interactive Patient Complaints of:: congestion Per staff patient has:: no adverse event, no episodes of fall, poor appetite, poor oral intake, tolerating meds Internal Medicine Objective - Results Result Diagrams: 07/18/17 04:00 07/18/17 04:00 Recent Labs: Laboratory Last Values WBC 7.2 Th/cmm (4.8-10.8) 07/18/17 04:00 RBC 2.85 Mil/cmm (3.80-5.20) L 07/18/17 04:00 Hgb 7.9 gm/dL (12-16) L* 07/18/17 04:00 Hct 24.0 % (41.0-60) L 07/18/17 04:00 MCV 84.2 fl (81-100) 07/18/17 04:00 MCH 27.8 pg (27.0-31.0) 07/18/17 04:00 MCHC Differential 33.1 pg (28.0-36.0) 07/18/17 04:00 RDW 16.1 % (11.5-20.0) 07/18/17 04:00 Plt Count 260 Th/cmm (150-400) 07/18/17 04:00 MPV 8.6 fl 07/18/17 04:00 Neutrophils % 63.7 % (40.0-80.0) 07/17/17 04:15 Band Neutrophils % 6 % (0-10) 07/15/17 04:15 Lymphocytes % 23.8 % (20.0-50.0) 07/17/17 04:15 Monocytes % 9.1 % (2.0-10.0) 07/17/17 04:15 Eosinophils % 2.4 % (0.0-5.0) 07/17/17 04:15 Basophils % 1.0 % (0.0-2.0) 07/17/17 04:15 Neutrophils (Manual) 65 % (40-80) 07/18/17 04:00 Lymphocytes 27 % (20-50) 07/18/17 04:00 Monocytes 4 % (2-10) 07/18/17 04:00 Eosinophils 4 % (0-5) 07/18/17 04:00 Hypochromia 1+ 07/04/17 04:30 Platelet Estimate ADEQUATE (NORMAL) 07/18/17 04:00 Polychromasia 1+ 07/04/17 04:30 Schistocytes 1+ 07/04/17 04:30 PT 12.0 SECONDS (9.5-11.5) H 07/08/17 04:15 INR 1.14 (0.5-1.4) 07/08/17 04:15 PTT (Actin FS) 25.0 SECONDS (26.0-38.0) L 07/08/17 04:15 D-Dimer 3600 ng/mL (100-400) H 06/21/17 18:20 Specimen Source Arterial 06/28/17 10:55 Sample Site Right Radial 06/28/17 10:55 pH 7.44 (7.35-7.45) 06/28/17 10:55 pCO2 36.0 mmHg (35.0-45.0) 06/28/17 10:55 pO2 100.0 mmHg (80.0-100.0) 06/28/17 10:55 HCO3 25.4 mEq/L (20.0-26.0) 06/28/17 10:55 Base Excess 0.6 mEq/L (-3.0-3.0) 06/28/17 10:55 O2 Saturation 98.0 % (92.0-100.0) 06/28/17 10:55 Rashid Test Positive 06/28/17 10:55 Vent Rate N/A 06/28/17 10:55 Inspired O2 28 06/28/17 10:55 Tidal Volume N/A 06/28/17 10:55 PEEP N/A 06/28/17 10:55 Pressure (ins/psv/peep) N/A 06/28/17 10:55 Critical Value DM 06/28/17 10:55 Sodium 139 mEq/L (136-145) 07/18/17 04:00 Potassium 4.4 mEq/L (3.5-5.1) 07/18/17 04:00 Chloride 100 mEq/L (98-107) 07/18/17 04:00 Carbon Dioxide 37.6 mEq/L (21.0-31.0) H 07/18/17 04:00 Anion Gap 5.8 (7.0-16.0) L 07/18/17 04:00 BUN 22 mg/dL (7-25) 07/18/17 04:00 Creatinine 1.1 mg/dL (0.6-1.2) 07/18/17 04:00 Est GFR ( Amer) TNP 07/18/17 04:00 Est GFR (Non-Af Amer) TNP 07/18/17 04:00 BUN/Creatinine Ratio 20.0 07/18/17 04:00 Glucose 148 mg/dL (70-105) H 07/18/17 04:00 POC Glucose 161 MG/DL (70 - 105) H 07/17/17 23:37 Hemoglobin A1c % 11.7 % (4.0-6.0) H 06/21/17 18:20 Calcium 8.2 mg/dL (8.6-10.3) L 07/18/17 04:00 Phosphorus 3.4 mg/dL (2.5-5.0) 07/18/17 04:00 Magnesium 2.4 mg/dL (1.9-2.7) 07/18/17 04:00 Iron 19 ug/dL (27-139) L 06/22/17 05:20 TIBC 176 ug/dL (250-450) L 06/22/17 05:20 Iron Saturation 11 % (15-55) L 06/22/17 05:20 Unsaturated IBC 157 ug/dL (118-369) 06/22/17 05:20 Ferritin 164 ng/mL (15-150) H 06/22/17 05:20 Total Bilirubin 0.4 mg/dL (0.3-1.0) 07/15/17 04:15 AST 16 U/L (13-39) 07/15/17 04:15 ALT 8 U/L (7-52) 07/15/17 04:15 Alkaline Phosphatase 119 U/L (34-104) H 07/15/17 04:15 Ammonia 38 umol/L (16-53) 07/08/17 04:15 Creatine Kinase 39 U/L (30-223) 06/21/17 18:20 Troponin I 0.01 ng/mL (0.01-0.05) 06/21/17 18:20 B-Natriuretic Peptide 108.0 pg/mL (5.0-100.0) H 07/09/17 04:30 Total Protein 5.0 gm/dL (6.0-8.3) L 07/15/17 04:15 Albumin 1.7 gm/dL (3.7-5.3) L 07/15/17 04:15 Globulin 3.3 gm/dL 07/15/17 04:15 Albumin/Globulin Ratio 0.5 (1.0-1.8) L 07/15/17 04:15 Prealbumin 14 mg/dL (9-32) 07/15/17 04:15 Triglycerides 88 mg/dL (<150) 07/15/17 04:15 Cholesterol 94 mg/dL (<200) 07/15/17 04:15 LDL Cholesterol Direct 65 mg/dL (75-193) L 06/21/17 18:20 HDL Cholesterol 43 mg/dL (23-92) 06/21/17 18:20 Vitamin B12 1797 pg/mL (232-1245) H 07/02/17 03:41 Folic Acid 10.3 ng/mL (>3.0) 07/02/17 03:41 Helicobacter pylori Ab NEGATIVE (NEGATIVE) 07/09/17 14:54 Blood Type O POSITIVE 07/09/17 09:16 Antibody Screen NEGATIVE 07/09/17 09:16 Crossmatch See Detail 07/09/17 09:16 - Physical Exam Vitals and I&O: Vital Signs Temp 97.4 F 07/18/17 08:00 Pulse 75 07/18/17 11:00 Resp 17 07/18/17 11:00 BP 155/77 07/18/17 11:00 Pulse Ox 100 07/18/17 11:00 Intake & Output 07/17/17 07/18/17 07/18/17 18:59 06:59 18:59 Intake Total 1018.167 870.833 Output Total 801 550 Balance 217.167 320.833 Weight (lbs) 164 lb 164 lb Intake: Intake, IV Amount 818.167 670.833 Cefepime 0.5 gm In 50 Dextrose 5% 50 ml @ 100 mls/hr IV Q24H ED Rx#: [id number] D5-0.45NS 1,000 ml @ 20 239 mls/hr IV .Q24H ED Rx#: [id number] Dextrose 70% 700 ml Amino 529.167 670.833 Acids 8.5% 500 ml @ 50 mls/hr IV .Q24H [facility] Rx#: [id number] Oral 200 200 Output: Urine 800 550 Stool 1 0 Other: Stool Characteristics Formed Active Medications: Current Medications Acetaminophen (Tylenol) 650 mg PO Q4H PRN PRN Reason: Pain Or Fever above 101 Stop: 08/20/17 19:40 Al Hydrox/Mg Hydrox/Simethicone (Maalox) 30 ml PO Q6H PRN PRN Reason: Dyspepsia Stop: 08/20/17 19:40 Albuterol Sulfate (Albuterol 2.5mg/3ml Neb Ud) 2.5 mg HHN Q2HRT PRN PRN Reason: Shortness of Breath or Wheeze Stop: 08/20/17 19:40 Last Admin: 07/11/17 05:23 Dose: 2.5 mg Albuterol/Ipratropium (Duoneb Neb) 3 ml HHN Q6HRT [facility] Stop: 08/30/17 18:59 Last Admin: 07/18/17 07:32 Dose: 3 ml Amlodipine Besylate (Norvasc) 10 mg PO DAILY [facility] Stop: 09/06/17 08:59 Last Admin: 07/18/17 08:47 Dose: 10 mg Bisacodyl (Dulcolax 10 Mg Supp) 10 mg RC DAILY [facility] Stop: 07/18/17 14:14 Last Admin: 07/18/17 08:47 Dose: 10 mg Diltiazem HCl (Cardizem) 20 mg IVP Q4H PRN PRN Reason: HR> 120 Stop: 09/04/17 17:55 Enalaprilat (Vasotec) 1.25 mg IVP Q6HR PRN PRN Reason: SBP 160 mmhg and above Stop: 09/08/17 05:59 Last Admin: 07/12/17 11:41 Dose: 1.25 mg Enalaprilat (Vasotec) 2.5 mg IVP Q4HR [facility] Stop: 09/10/17 15:59 Last Admin: 07/18/17 08:48 Dose: 2.5 mg Guaifenesin (Robitussin) 200 mg PO Q4HR PRN PRN Reason: Cough or Congestion Stop: 08/20/17 19:40 Haloperidol Decanoate (Haldol Dec) 25 mg IM QMONTH [facility] Stop: 08/23/17 09:59 Last Admin: 06/24/17 09:10 Dose: 25 mg Hydralazine HCl (Apresoline 20 Mg/Ml) 10 mg IV Q6HR PRN PRN Reason: SBP ABOVE 160 Stop: 08/25/17 12:20 Last Admin: 07/13/17 22:42 Dose: 10 mg Cefepime HCl 0.5 gm/ Dextrose 50 mls @ 100 mls/hr IV Q24H [facility] Stop: 09/06/17 13:59 Last Infusion: 07/17/17 15:15 Dose: Infused Dextrose/Sodium Chloride (D5-0.45ns) 1,000 mls @ 20 mls/hr IV .Q24H [facility] Stop: 09/08/17 09:25 Last Admin: 07/18/17 06:00 Dose: 20 mls/hr Dextrose/ Amino Acids/ (Electrolytes) 1,200 mls @ 50 mls/hr IV .Q24H [facility] Stop: 08/09/17 15:59 Last Infusion: 07/18/17 06:00 Dose: 50 mls/hr Nitroglycerin/Dextrose (Nitroglycerin 50mg/Dextrose 5% Premix) 50 mg in 250 mls @ 0 mls/hr IV TITR PRN; Protocol; Per Protocol PRN Reason: BP MAINTENANCE Stop: 09/12/17 09:12 Last Titration: 07/16/17 09:00 Dose: 0 mcg/min, 0 mls/hr Insulin Aspart (Novolog) 0 units SUBQ Q6HR ED PRN Reason: Protocol Stop: 09/03/17 00:00 Last Admin: 07/18/17 06:00 Dose: Not Given Ipratropium [place] (Atrovent Neb 0.5mg/2.5ml) 0.5 mg IH Q2HRT PRN PRN Reason: Shortness of Breath or Wheeze Stop: 08/20/17 19:40 Last Admin: 07/11/17 05:23 Dose: 0.5 mg Labetalol HCl (Trandate) 10 mg IVP Q4HR PRN PRN Reason: SBP ABOVE 160 Stop: 09/09/17 13:16 Last Admin: 07/12/17 03:38 Dose: 10 mg Lactobacillus Rhamnosus (Culturelle 15b) 1 each PO DAILY [facility] Stop: 08/30/17 08:59 Last Admin: 07/18/17 08:47 Dose: 1 each Losartan Potassium (Cozaar) 100 mg PO DAILY [facility] Stop: 09/13/17 15:59 Last Admin: 07/18/17 08:48 Dose: 100 mg Mirtazapine (Remeron) 15 mg PO HS ED PRN Reason: Protocol Stop: 08/20/17 20:59 Last Admin: 07/17/17 21:00 Dose: 15 mg Miscellaneous (Probiotic Screen) 1 ea PRN PRN PRN Reason: PROTOCOL Stop: 08/29/17 11:59 Miscellaneous (Tpn Per Pharmacy) 1 [facility] PRN PRN PRN Reason: PROTOCOL Stop: 09/06/17 13:12 Morphine Sulfate (Morphine) 2 mg IVP Q4H PRN PRN Reason: Pain (Severe) Stop: 09/06/17 13:06 Last Admin: 07/09/17 22:21 Dose: 2 mg Nitroglycerin (Nitrostat) 0.4 mg SL Q5MIN PRN PRN Reason: Chest Pain Stop: 08/20/17 19:40 Ondansetron HCl (Zofran Odt) 4 mg PO Q6H PRN PRN Reason: Nausea / Vomiting Stop: 09/04/17 13:12 Pantoprazole Sodium (Protonix) 40 mg IVP BID [facility] Stop: 09/09/17 16:59 Last Admin: 07/18/17 08:49 Dose: 40 mg Sodium Phosphate (Fleet Enema) 135 ml RC PRN PRN PRN Reason: Constipation Stop: 09/10/17 09:36 Last Admin: 07/15/17 14:15 Dose: 135 ml General: weak, demented, thin, bilateral temporal wasting HEENT: NC/AT, PERRLA, thinning hair, other (ngt) Neck: Supple Lungs: rales, ronchi Cardiovascular: RRR, Normal S1, Normal S2, without murmur Abdomen: non-tender, distended Extremities: excoriation, contracture, deformity Neurological: lethargic, unsteady, bedbound - Procedures Procedures: Procedures Procedure Code Date PARTIAL REMOVAL OF COLON 73152 06/21/17 RESECTION OF RIGHT LARGE INTESTINE, OPEN APPROACH [id number] 06/21/17 Internal Medicine Assmt/Plan - Assessment Assessment: acute dvt cecal mass s/p exploratory lap right right hemicolectomy severe anemia dm2 schizophrenia htn psychosis hypokalemia - Plan Plan: continue with nutritional support-tpn monitor h/h cardiology follow up monitor electrolytes follow up labs in am will follow political consultant recommendations Nutritional Asmnt/Malnutr-PDOC - Dietary Evaluation Malnutrition Findings (Please click <Entered> for more info): Nutritional Asmnt/Malnutrition Start: 06/22/17 18: 04 Text: Status: Complete Freq: Document 06/22/17 18:04 HEN (Rec: 06/22/17 18:15 HENG [email or web address]) Nutritional Asmnt/Malnutrition Patient General Information Nutritional Screening High Risk Consult Diagnosis left lower extremity DVT, severe anemia, CHF, HTN Pertinent Medical Hx/Surgical Hx DM, anemia, renal stones, schizophrenia Subjective Information Pt seen lying in bed, confused at time of visit. Spoke with LULÚ Seay, RN reported pt ate well, consumed 60% of breakfast this morning. Per notes, pt has EGD and colonoscopy scheduled tommorrow. Current Diet Order/ Nutrition Support pureed Pertinent Medications D5-0.9ns, novolog, remeron, kcl Pertinent Labs 06/21 Na 137, K 3.5, Cl 100, BUN 24, Cr 1.3, Glucose 186, AST 10, ALT 6, Alb 2.6 06/22 POC 383 Nutritional Hx/Data Height 5 ft Height (Calculated Centimeters) 152.4 Current Weight (lbs) 86 lb Weight (Calculated Kilograms) 39.0 Weight (Calculated Grams) 52289.9 [place] Body Weight 100 % [place] Body Weight 86 Body Mass Index (BMI) 16.7 Weight Status Underweight GI Symptoms GI Symptoms None Last BM none Difficult in: None Skin Integrity/Comment: intact Current %PO Fair (50-74%) Estimated Nutritional Goals Calories/Kcals/Kg 25-30 based on IBW 45kg Kcals Calculated 2192-6725 Protein g/k-1.2 Protein Calculated 45-54 Fluid: ml 1125-1350ml (1ml/kcal) Nutritional Problem 1. Problem Problem altered nutrition related lab values Etiology hx of DM Signs/Symptoms: Glucose 186, POC 383 Malnutrition Alert Protein-Calorie Malnutrition N/A Is there a minimum of two criteria No selected? Query Text:Check all the applicable criteria. A minimum of two criteria are recommended for diagnosis of either severe or non-severe malnutrition. Intervention/Recommendation Comments 1. Recommend CCHO, low sodium diet for optimal glycemic and BP control. RN notified. 2. Monitor PO intake, wt, labs and skin integrity 3. F/U as high risk in 2-3 days, 06/24-06/25 Expected Outcomes/Goals Expected Outcomes/Goals 1. PO intake to meet at least 75% of nutritional needs. 2. Wt stability, skin to remain intact, labs to improve
--- NOTE | 2017-07-18 14:53 | GI Progress Note ---
Subjective - Review of Systems Service Date: 07/18/17 Subjective: Appetite remains somewhat poor. Had BM. Objective - Results Result Diagrams: 07/18/17 04:00 07/18/17 04:00 Recent Labs: Laboratory Last Values WBC 7.2 Th/cmm (4.8-10.8) 07/18/17 04:00 RBC 2.85 Mil/cmm (3.80-5.20) L 07/18/17 04:00 Hgb 7.9 gm/dL (12-16) L* 07/18/17 04:00 Hct 24.0 % (41.0-60) L 07/18/17 04:00 MCV 84.2 fl (81-100) 07/18/17 04:00 MCH 27.8 pg (27.0-31.0) 07/18/17 04:00 MCHC Differential 33.1 pg (28.0-36.0) 07/18/17 04:00 RDW 16.1 % (11.5-20.0) 07/18/17 04:00 Plt Count 260 Th/cmm (150-400) 07/18/17 04:00 MPV 8.6 fl 07/18/17 04:00 Neutrophils % 63.7 % (40.0-80.0) 07/17/17 04:15 Band Neutrophils % 6 % (0-10) 07/15/17 04:15 Lymphocytes % 23.8 % (20.0-50.0) 07/17/17 04:15 Monocytes % 9.1 % (2.0-10.0) 07/17/17 04:15 Eosinophils % 2.4 % (0.0-5.0) 07/17/17 04:15 Basophils % 1.0 % (0.0-2.0) 07/17/17 04:15 Neutrophils (Manual) 65 % (40-80) 07/18/17 04:00 Lymphocytes 27 % (20-50) 07/18/17 04:00 Monocytes 4 % (2-10) 07/18/17 04:00 Eosinophils 4 % (0-5) 07/18/17 04:00 Hypochromia 1+ 07/04/17 04:30 Platelet Estimate ADEQUATE (NORMAL) 07/18/17 04:00 Polychromasia 1+ 07/04/17 04:30 Schistocytes 1+ 07/04/17 04:30 PT 12.0 SECONDS (9.5-11.5) H 07/08/17 04:15 INR 1.14 (0.5-1.4) 07/08/17 04:15 PTT (Actin FS) 25.0 SECONDS (26.0-38.0) L 07/08/17 04:15 D-Dimer 3600 ng/mL (100-400) H 06/21/17 18:20 Specimen Source Arterial 06/28/17 10:55 Sample Site Right Radial 06/28/17 10:55 pH 7.44 (7.35-7.45) 06/28/17 10:55 pCO2 36.0 mmHg (35.0-45.0) 06/28/17 10:55 pO2 100.0 mmHg (80.0-100.0) 06/28/17 10:55 HCO3 25.4 mEq/L (20.0-26.0) 06/28/17 10:55 Base Excess 0.6 mEq/L (-3.0-3.0) 06/28/17 10:55 O2 Saturation 98.0 % (92.0-100.0) 06/28/17 10:55 Rashid Test Positive 06/28/17 10:55 Vent Rate N/A 06/28/17 10:55 Inspired O2 28 06/28/17 10:55 Tidal Volume N/A 06/28/17 10:55 PEEP N/A 06/28/17 10:55 Pressure (ins/psv/peep) N/A 06/28/17 10:55 Critical Value DM 06/28/17 10:55 Sodium 139 mEq/L (136-145) 07/18/17 04:00 Potassium 4.4 mEq/L (3.5-5.1) 07/18/17 04:00 Chloride 100 mEq/L (98-107) 07/18/17 04:00 Carbon Dioxide 37.6 mEq/L (21.0-31.0) H 07/18/17 04:00 Anion Gap 5.8 (7.0-16.0) L 07/18/17 04:00 BUN 22 mg/dL (7-25) 07/18/17 04:00 Creatinine 1.1 mg/dL (0.6-1.2) 07/18/17 04:00 Est GFR ( Amer) TNP 07/18/17 04:00 Est GFR (Non-Af Amer) TNP 07/18/17 04:00 BUN/Creatinine Ratio 20.0 07/18/17 04:00 Glucose 148 mg/dL (70-105) H 07/18/17 04:00 POC Glucose 141 MG/DL (70 - 105) H 07/18/17 11:57 Hemoglobin A1c % 11.7 % (4.0-6.0) H 06/21/17 18:20 Calcium 8.2 mg/dL (8.6-10.3) L 07/18/17 04:00 Phosphorus 3.4 mg/dL (2.5-5.0) 07/18/17 04:00 Magnesium 2.4 mg/dL (1.9-2.7) 07/18/17 04:00 Iron 19 ug/dL (27-139) L 06/22/17 05:20 TIBC 176 ug/dL (250-450) L 06/22/17 05:20 Iron Saturation 11 % (15-55) L 06/22/17 05:20 Unsaturated IBC 157 ug/dL (118-369) 06/22/17 05:20 Ferritin 164 ng/mL (15-150) H 06/22/17 05:20 Total Bilirubin 0.4 mg/dL (0.3-1.0) 07/15/17 04:15 AST 16 U/L (13-39) 07/15/17 04:15 ALT 8 U/L (7-52) 07/15/17 04:15 Alkaline Phosphatase 119 U/L (34-104) H 07/15/17 04:15 Ammonia 38 umol/L (16-53) 07/08/17 04:15 Creatine Kinase 39 U/L (30-223) 06/21/17 18:20 Troponin I 0.01 ng/mL (0.01-0.05) 06/21/17 18:20 B-Natriuretic Peptide 108.0 pg/mL (5.0-100.0) H 07/09/17 04:30 Total Protein 5.0 gm/dL (6.0-8.3) L 07/15/17 04:15 Albumin 1.7 gm/dL (3.7-5.3) L 07/15/17 04:15 Globulin 3.3 gm/dL 07/15/17 04:15 Albumin/Globulin Ratio 0.5 (1.0-1.8) L 07/15/17 04:15 Prealbumin 14 mg/dL (9-32) 07/15/17 04:15 Triglycerides 88 mg/dL (<150) 07/15/17 04:15 Cholesterol 94 mg/dL (<200) 07/15/17 04:15 LDL Cholesterol Direct 65 mg/dL (75-193) L 06/21/17 18:20 HDL Cholesterol 43 mg/dL (23-92) 06/21/17 18:20 Vitamin B12 1797 pg/mL (232-1245) H 07/02/17 03:41 Folic Acid 10.3 ng/mL (>3.0) 07/02/17 03:41 Helicobacter pylori Ab NEGATIVE (NEGATIVE) 07/09/17 14:54 Blood Type O POSITIVE 07/09/17 09:16 Antibody Screen NEGATIVE 07/09/17 09:16 Crossmatch See Detail 07/09/17 09:16 - Physical Exam Vitals and I&O: Vital Signs Temp 96.8 F 07/18/17 12:00 Pulse 76 07/18/17 13:52 Resp 16 07/18/17 14:01 BP 162/76 07/18/17 13:52 Pulse Ox 100 07/18/17 13:47 Intake & Output 07/17/17 07/18/17 07/18/17 18:59 06:59 18:59 Intake Total 1018.167 870.833 Output Total 801 550 Balance 217.167 320.833 Weight (lbs) 74.389 kg 74.389 kg Intake: Intake, IV Amount 818.167 670.833 Cefepime 0.5 gm In 50 Dextrose 5% 50 ml @ 100 mls/hr IV Q24H ED Rx#: [id number] D5-0.45NS 1,000 ml @ 20 239 mls/hr IV .Q24H ED Rx#: [id number] Dextrose 70% 700 ml Amino 529.167 670.833 Acids 8.5% 500 ml @ 50 mls/hr IV .Q24H ED Rx#: [id number] Oral 200 200 Output: Urine 800 550 Stool 1 0 Other: Stool Characteristics Formed Mucoid Green Active Medications: Current Medications Acetaminophen (Tylenol) 650 mg PO Q4H PRN PRN Reason: Pain Or Fever above 101 Stop: 08/20/17 19:40 Al Hydrox/Mg Hydrox/Simethicone (Maalox) 30 ml PO Q6H PRN PRN Reason: Dyspepsia Stop: 08/20/17 19:40 Albuterol Sulfate (Albuterol 2.5mg/3ml Neb Ud) 2.5 mg HHN Q2HRT PRN PRN Reason: Shortness of Breath or Wheeze Stop: 08/20/17 19:40 Last Admin: 07/11/17 05:23 Dose: 2.5 mg Albuterol/Ipratropium (Duoneb Neb) 3 ml HHN Q6HRT [facility] Stop: 08/30/17 18:59 Last Admin: 07/18/17 13:45 Dose: 3 ml Amlodipine Besylate (Norvasc) 10 mg PO DAILY [facility] Stop: 09/06/17 08:59 Last Admin: 07/18/17 08:47 Dose: 10 mg Diltiazem HCl (Cardizem) 20 mg IVP Q4H PRN PRN Reason: HR> 120 Stop: 09/04/17 17:55 Enalaprilat (Vasotec) 1.25 mg IVP Q6HR PRN PRN Reason: SBP 160 mmhg and above Stop: 09/08/17 05:59 Last Admin: 07/12/17 11:41 Dose: 1.25 mg Enalaprilat (Vasotec) 2.5 mg IVP Q4HR [facility] Stop: 09/10/17 15:59 Last Admin: 07/18/17 13:52 Dose: 2.5 mg Guaifenesin (Robitussin) 200 mg PO Q4HR PRN PRN Reason: Cough or Congestion Stop: 08/20/17 19:40 Haloperidol Decanoate (Haldol Dec) 25 mg IM QMONTH [facility] Stop: 08/23/17 09:59 Last Admin: 06/24/17 09:10 Dose: 25 mg Hydralazine HCl (Apresoline 20 Mg/Ml) 10 mg IV Q6HR PRN PRN Reason: SBP ABOVE 160 Stop: 08/25/17 12:20 Last Admin: 07/13/17 22:42 Dose: 10 mg Cefepime HCl 0.5 gm/ Dextrose 50 mls @ 100 mls/hr IV Q24H [facility] Stop: 09/06/17 13:59 Last Admin: 07/18/17 13:51 Dose: 100 mls/hr Dextrose/Sodium Chloride (D5-0.45ns) 1,000 mls @ 20 mls/hr IV .Q24H [facility] Stop: 09/08/17 09:25 Last Admin: 07/18/17 06:00 Dose: 20 mls/hr Dextrose/ Amino Acids/ (Electrolytes) 1,200 mls @ 50 mls/hr IV .Q24H [facility] Stop: 08/09/17 15:59 Last Infusion: 07/18/17 06:00 Dose: 50 mls/hr Nitroglycerin/Dextrose (Nitroglycerin 50mg/Dextrose 5% Premix) 50 mg in 250 mls @ 0 mls/hr IV TITR PRN; Protocol; Per Protocol PRN Reason: BP MAINTENANCE Stop: 09/12/17 09:12 Last Titration: 07/16/17 09:00 Dose: 0 mcg/min, 0 mls/hr Cefazolin Sodium 1 gm/ Sodium (Chloride) 50 mls @ 100 mls/hr IV X1 ONE Stop: 07/18/17 15:18 Insulin Aspart (Novolog) 0 units SUBQ Q6HR ED PRN Reason: Protocol Stop: 09/03/17 00:00 Last Admin: 07/18/17 12:32 Dose: Not Given Ipratropium [place] (Atrovent Neb 0.5mg/2.5ml) 0.5 mg IH Q2HRT PRN PRN Reason: Shortness of Breath or Wheeze Stop: 08/20/17 19:40 Last Admin: 07/11/17 05:23 Dose: 0.5 mg Labetalol HCl (Trandate) 10 mg IVP Q4HR PRN PRN Reason: SBP ABOVE 160 Stop: 09/09/17 13:16 Last Admin: 07/12/17 03:38 Dose: 10 mg Lactobacillus Rhamnosus (Culturelle 15b) 1 each PO DAILY [facility] Stop: 08/30/17 08:59 Last Admin: 07/18/17 08:47 Dose: 1 each Losartan Potassium (Cozaar) 100 mg PO DAILY [facility] Stop: 09/13/17 15:59 Last Admin: 07/18/17 08:48 Dose: 100 mg Mirtazapine (Remeron) 15 mg PO HS ED PRN Reason: Protocol Stop: 08/20/17 20:59 Last Admin: 07/17/17 21:00 Dose: 15 mg Miscellaneous (Probiotic Screen) 1 ea PRN PRN PRN Reason: PROTOCOL Stop: 08/29/17 11:59 Miscellaneous (Tpn Per Pharmacy) 1 ea PRN PRN PRN Reason: PROTOCOL Stop: 09/06/17 13:12 Morphine Sulfate (Morphine) 2 mg IVP Q4H PRN PRN Reason: Pain (Severe) Stop: 09/06/17 13:06 Last Admin: 07/09/17 22:21 Dose: 2 mg Nitroglycerin (Nitrostat) 0.4 mg SL Q5MIN PRN PRN Reason: Chest Pain Stop: 08/20/17 19:40 Ondansetron HCl (Zofran Odt) 4 mg PO Q6H PRN PRN Reason: Nausea / Vomiting Stop: 09/04/17 13:12 Pantoprazole Sodium (Protonix) 40 mg IVP BID ED Stop: 09/09/17 16:59 Last Admin: 07/18/17 08:49 Dose: 40 mg Sodium Phosphate (Fleet Enema) 135 ml RC PRN PRN PRN Reason: Constipation Stop: 09/10/17 09:36 Last Admin: 07/15/17 14:15 Dose: 135 ml General: No acute distress HEENT: Atraumatic Neck: Supple Cardiovascular: Regular rate Abdomen: Bowel sounds, Soft, Other (dressing in midline no bleeding), no Tender , no Mass, no Guarding - Procedures Procedures: Procedures Procedure Code Date PARTIAL REMOVAL OF COLON 22774 06/21/17 RESECTION OF RIGHT LARGE INTESTINE, OPEN APPROACH [id number] 06/21/17 Assessment/Plan - Assessment Assessment: Impression: # Anemia, stable # Cecal neoplasm s/p R hemicolectomy # Diverticulosis EGD on 06/23 showed mild gastritis. Colonoscopy revealed 3-4cm cecal lesion and 2cm ascending colon polyp. Cecal lesion endoscopically looked like villous adenoma, and ascending colon may be adenoma vs villous adenoma. 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 These lesions could very well be contributing to her chronic anemia, although certainly there is anemia of chronic disease Now s/p R hemicolectomy on 06/27. 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 Now recovering post op. Plan: - Repeat colo in 1 year - cont post op care and diet as tolerated. - consider PEG placement if OK with 2 MD's and deemed medically necessary. - appreciate hematology recs - cont iron supplementation - trend hgb, stable
[2017-07-18] MEDS ORDERED: ceFAZolin 1 GM in Sodium Chloride 0.9% 50 ML IV ONE (16:00)
[2017-07-18] MEDS: TPN 8.5%-70% CUSTOM IV SCH (16:19)
[2017-07-19] MEDS: Albuterol/Ipratropium Neb 3 ML AERS HHN SCH ×4 (01:32→19:17)
[2017-07-19] MEDS: INSULIN ASPART, RECOMBINANT 100 UNITS/ML SUBQ SCH ×3 (05:52→18:13)
[2017-07-19 06:18] LABS: % BASOPHILS 0.3 % (0.0-2.0); % EOSINOPHILS 2.9 % (0.0-5.0); % LYMPHOCYTES 22.3 % (20.0-50.0); % MONOCYTES 9.2 % (2.0-10.0); % NEUTROPHILS 65.3 % (40.0-80.0); EOSINOPHILE ABSOLUTE 0.2 Th/cmm (0.1-0.4); HEMATOCRIT 26.4 % (41.0-60); HEMOGLOBIN 8.8 gm/dL (12-16); LYMPHOCYTE ABSOLUTE 1.6 Th/cmm (1.5-3.0); MEAN CORPUSCULAR HEMOGLOBIN 28.3 pg (27.0-31.0); MEAN CORPUSCULAR HGB CONC 33.3 pg (28.0-36.0); MEAN PLATELET VOLUME 8.5 fl; MONOCYTE ABSOLUTE 0.7 Th/cmm (0.3-1.0); NEUTROPHILE ABSOLUTE 4.7 Th/cmm (1.8-8.0); PLATELET COUNT 295 Th/cmm (150-400); RED CELL DISTRIBUTION WIDTH 16.1 % (11.5-20.0); WHITE BLOOD COUNT 7.2 Th/cmm (4.8-10.8)
[2017-07-19 06:37] LABS: INR 1.01 (0.5-1.4); PROTHROMBIN TIME (TEST) 10.5 SECONDS (9.5-11.5)
[2017-07-19 07:10] LABS: ANION GAP 10.3 (7.0-16.0); BUN - UREA NITROGEN 21 mg/dL (7-25); CALCIUM SERUM 8.6 mg/dL (8.6-10.3); CARBON DIOXIDE 34.3 mEq/L (21.0-31.0); CHLORIDE 101 mEq/L (98-107); CREATININE - SERUM 1.1 mg/dL (0.6-1.2); GLUCOSE 176 mg/dL (70-105); POTASSIUM SERUM 4.6 mEq/L (3.5-5.1); SODIUM SERUM 141 mEq/L (136-145)
[2017-07-19] MEDS: Lactobacillus Rhamnosus GG 15 Billion CFU CAP.SPRINK PO SCH (08:53)
[2017-07-19 09:41] LABS: MAGNESIUM 2.4 mg/dL (1.9-2.7); PHOSPHOROUS 4.3 mg/dL (2.5-5.0)
--- NOTE | 2017-07-19 13:37 | Internal Medicine Prog Note ---
Internal Medicine Subjective - Subjective Service Date: 07/19/17 Patient seen and examined:: with staff Patient is:: awake, non-verbal, non-interactive Patient Complaints of:: congestion Per staff patient has:: no adverse event, no episodes of fall, poor appetite, poor oral intake, tolerating meds Internal Medicine Objective - Results Result Diagrams: 07/19/17 05:45 07/19/17 05:45 Recent Labs: Laboratory Last Values WBC 7.2 Th/cmm (4.8-10.8) 07/19/17 05:45 RBC 3.10 Mil/cmm (3.80-5.20) L 07/19/17 05:45 Hgb 8.8 gm/dL (12-16) L 07/19/17 05:45 Hct 26.4 % (41.0-60) L 07/19/17 05:45 MCV 85.0 fl (81-100) 07/19/17 05:45 MCH 28.3 pg (27.0-31.0) 07/19/17 05:45 MCHC Differential 33.3 pg (28.0-36.0) 07/19/17 05:45 RDW 16.1 % (11.5-20.0) 07/19/17 05:45 Plt Count 295 Th/cmm (150-400) 07/19/17 05:45 MPV 8.5 fl 07/19/17 05:45 Neutrophils % 65.3 % (40.0-80.0) 07/19/17 05:45 Band Neutrophils % 6 % (0-10) 07/15/17 04:15 Lymphocytes % 22.3 % (20.0-50.0) 07/19/17 05:45 Monocytes % 9.2 % (2.0-10.0) 07/19/17 05:45 Eosinophils % 2.9 % (0.0-5.0) 07/19/17 05:45 Basophils % 0.3 % (0.0-2.0) 07/19/17 05:45 Neutrophils (Manual) 65 % (40-80) 07/18/17 04:00 Lymphocytes 27 % (20-50) 07/18/17 04:00 Monocytes 4 % (2-10) 07/18/17 04:00 Eosinophils 4 % (0-5) 07/18/17 04:00 Hypochromia 1+ 07/04/17 04:30 Platelet Estimate ADEQUATE (NORMAL) 07/18/17 04:00 Polychromasia 1+ 07/04/17 04:30 Schistocytes 1+ 07/04/17 04:30 PT 10.5 SECONDS (9.5-11.5) 07/19/17 05:45 INR 1.01 (0.5-1.4) 07/19/17 05:45 PTT (Actin FS) 25.0 SECONDS (26.0-38.0) L 07/08/17 04:15 D-Dimer 3600 ng/mL (100-400) H 06/21/17 18:20 Specimen Source Arterial 06/28/17 10:55 Sample Site Right Radial 06/28/17 10:55 pH 7.44 (7.35-7.45) 06/28/17 10:55 pCO2 36.0 mmHg (35.0-45.0) 06/28/17 10:55 pO2 100.0 mmHg (80.0-100.0) 06/28/17 10:55 HCO3 25.4 mEq/L (20.0-26.0) 06/28/17 10:55 Base Excess 0.6 mEq/L (-3.0-3.0) 06/28/17 10:55 O2 Saturation 98.0 % (92.0-100.0) 06/28/17 10:55 Rashid Test Positive 06/28/17 10:55 Vent Rate N/A 06/28/17 10:55 Inspired O2 28 06/28/17 10:55 Tidal Volume N/A 06/28/17 10:55 PEEP N/A 06/28/17 10:55 Pressure (ins/psv/peep) N/A 06/28/17 10:55 Critical Value DM 06/28/17 10:55 Sodium 141 mEq/L (136-145) 07/19/17 05:45 Potassium 4.6 mEq/L (3.5-5.1) 07/19/17 05:45 Chloride 101 mEq/L (98-107) 07/19/17 05:45 Carbon Dioxide 34.3 mEq/L (21.0-31.0) H 07/19/17 05:45 Anion Gap 10.3 (7.0-16.0) 07/19/17 05:45 BUN 21 mg/dL (7-25) 07/19/17 05:45 Creatinine 1.1 mg/dL (0.6-1.2) 07/19/17 05:45 Est GFR ( Amer) TNP 07/19/17 05:45 Est GFR (Non-Af Amer) TNP 07/19/17 05:45 BUN/Creatinine Ratio 19.1 07/19/17 05:45 Glucose 176 mg/dL (70-105) H 07/19/17 05:45 POC Glucose 174 MG/DL (70 - 105) H 07/19/17 11:31 Hemoglobin A1c % 11.7 % (4.0-6.0) H 06/21/17 18:20 Calcium 8.6 mg/dL (8.6-10.3) 07/19/17 05:45 Phosphorus 4.3 mg/dL (2.5-5.0) 07/19/17 05:45 Magnesium 2.4 mg/dL (1.9-2.7) 07/19/17 05:45 Iron 19 ug/dL (27-139) L 06/22/17 05:20 TIBC 176 ug/dL (250-450) L 06/22/17 05:20 Iron Saturation 11 % (15-55) L 06/22/17 05:20 Unsaturated IBC 157 ug/dL (118-369) 06/22/17 05:20 Ferritin 164 ng/mL (15-150) H 06/22/17 05:20 Total Bilirubin 0.4 mg/dL (0.3-1.0) 07/15/17 04:15 AST 16 U/L (13-39) 07/15/17 04:15 ALT 8 U/L (7-52) 07/15/17 04:15 Alkaline Phosphatase 119 U/L (34-104) H 07/15/17 04:15 Ammonia 38 umol/L (16-53) 07/08/17 04:15 Creatine Kinase 39 U/L (30-223) 06/21/17 18:20 Troponin I 0.01 ng/mL (0.01-0.05) 06/21/17 18:20 B-Natriuretic Peptide 108.0 pg/mL (5.0-100.0) H 07/09/17 04:30 Total Protein 5.0 gm/dL (6.0-8.3) L 07/15/17 04:15 Albumin 1.7 gm/dL (3.7-5.3) L 07/15/17 04:15 Globulin 3.3 gm/dL 07/15/17 04:15 Albumin/Globulin Ratio 0.5 (1.0-1.8) L 07/15/17 04:15 Prealbumin 14 mg/dL (9-32) 07/15/17 04:15 Triglycerides 88 mg/dL (<150) 07/15/17 04:15 Cholesterol 94 mg/dL (<200) 07/15/17 04:15 LDL Cholesterol Direct 65 mg/dL (75-193) L 06/21/17 18:20 HDL Cholesterol 43 mg/dL (23-92) 06/21/17 18:20 Vitamin B12 1797 pg/mL (232-1245) H 07/02/17 03:41 Folic Acid 10.3 ng/mL (>3.0) 07/02/17 03:41 Helicobacter pylori Ab NEGATIVE (NEGATIVE) 07/09/17 14:54 Blood Type O POSITIVE 07/09/17 09:16 Antibody Screen NEGATIVE 07/09/17 09:16 Crossmatch See Detail 07/09/17 09:16 - Physical Exam Vitals and I&O: Vital Signs Temp 97.2 F 07/19/17 11:54 Pulse 86 07/19/17 12:42 Resp 18 07/19/17 11:54 BP 151/80 07/19/17 12:42 Pulse Ox 94 07/19/17 11:54 Intake & Output 07/18/17 07/19/17 07/19/17 18:59 06:59 18:59 Intake Total 1245.833 600 Output Total 1152 1100 Balance 93.833 -500 Weight (lbs) 164 lb 147 lb 12.8 oz Intake: Intake, IV Amount 565.833 Cefepime 0.5 gm In 50 Dextrose 5% 50 ml @ 100 mls/hr IV Q24H ED Rx#: [id number] Dextrose 70% 700 ml Amino 515.833 Acids 8.5% 500 ml @ 50 mls/hr IV .Q24H ED Rx#: [id number] Oral 80 TPN/PPN 600 600 Output: Urine 1150 1100 Stool 2 Other: # Bowel Movements 1 Stool Characteristics Mucoid Green Active Medications: Current Medications Acetaminophen (Tylenol) 650 mg PO Q4H PRN PRN Reason: Pain Or Fever above 101 Stop: 08/20/17 19:40 Al Hydrox/Mg Hydrox/Simethicone (Maalox) 30 ml PO Q6H PRN PRN Reason: Dyspepsia Stop: 08/20/17 19:40 Albuterol Sulfate (Albuterol 2.5mg/3ml Neb Ud) 2.5 mg HHN Q2HRT PRN PRN Reason: Shortness of Breath or Wheeze Stop: 08/20/17 19:40 Last Admin: 07/11/17 05:23 Dose: 2.5 mg Albuterol/Ipratropium (Duoneb Neb) 3 ml HHN Q6HRT [facility] Stop: 08/30/17 18:59 Last Admin: 07/19/17 07:45 Dose: 3 ml Amlodipine Besylate (Norvasc) 10 mg PO DAILY [facility] Stop: 09/06/17 08:59 Last Admin: 07/19/17 08:53 Dose: Not Given Diltiazem HCl (Cardizem) 20 mg IVP Q4H PRN PRN Reason: HR> 120 Stop: 09/04/17 17:55 Enalaprilat (Vasotec) 1.25 mg IVP Q6HR PRN PRN Reason: SBP 160 mmhg and above Stop: 09/08/17 05:59 Last Admin: 07/12/17 11:41 Dose: 1.25 mg Enalaprilat (Vasotec) 2.5 mg IVP Q4HR [facility] Stop: 09/10/17 15:59 Last Admin: 07/19/17 12:42 Dose: 2.5 mg Guaifenesin (Robitussin) 200 mg PO Q4HR PRN PRN Reason: Cough or Congestion Stop: 08/20/17 19:40 Haloperidol Decanoate (Haldol Dec) 25 mg IM QMONTH [facility] Stop: 08/23/17 09:59 Last Admin: 06/24/17 09:10 Dose: 25 mg Hydralazine HCl (Apresoline 20 Mg/Ml) 10 mg IV Q6HR PRN PRN Reason: SBP ABOVE 160 Stop: 08/25/17 12:20 Last Admin: 07/13/17 22:42 Dose: 10 mg Cefepime HCl 0.5 gm/ Dextrose 50 mls @ 100 mls/hr IV Q24H [facility] Stop: 09/06/17 13:59 Last Infusion: 07/18/17 14:30 Dose: Infused Dextrose/Sodium Chloride (D5-0.45ns) 1,000 mls @ 20 mls/hr IV .Q24H [facility] Stop: 09/08/17 09:25 Last Admin: 07/18/17 06:00 Dose: 20 mls/hr Dextrose/ Amino Acids/ (Electrolytes) 1,200 mls @ 50 mls/hr IV .Q24H [facility] Stop: 08/09/17 15:59 Last Admin: 07/18/17 16:19 Dose: 50 mls/hr Nitroglycerin/Dextrose (Nitroglycerin 50mg/Dextrose 5% Premix) 50 mg in 250 mls @ 0 mls/hr IV TITR PRN; Protocol; Per Protocol PRN Reason: BP MAINTENANCE Stop: 09/12/17 09:12 Last Titration: 07/16/17 09:00 Dose: 0 mcg/min, 0 mls/hr Cefazolin Sodium 1 gm/ Sodium (Chloride) 50 mls @ 100 mls/hr IV X1 ONE Stop: 07/19/17 16:29 Insulin Aspart (Novolog) 0 units SUBQ Q6HR ED PRN Reason: Protocol Stop: 09/03/17 00:00 Last Admin: 07/19/17 11:43 Dose: Not Given Ipratropium [place] (Atrovent Neb 0.5mg/2.5ml) 0.5 mg IH Q2HRT PRN PRN Reason: Shortness of Breath or Wheeze Stop: 08/20/17 19:40 Last Admin: 07/11/17 05:23 Dose: 0.5 mg Labetalol HCl (Trandate) 10 mg IVP Q4HR PRN PRN Reason: SBP ABOVE 160 Stop: 09/09/17 13:16 Last Admin: 07/12/17 03:38 Dose: 10 mg Lactobacillus Rhamnosus (Culturelle 15b) 1 each PO DAILY [facility] Stop: 08/30/17 08:59 Last Admin: 07/19/17 08:53 Dose: Not Given Losartan Potassium (Cozaar) 100 mg PO DAILY [facility] Stop: 09/13/17 15:59 Last Admin: 07/19/17 08:53 Dose: Not Given Mirtazapine (Remeron) 15 mg PO HS ED PRN Reason: Protocol Stop: 08/20/17 20:59 Last Admin: 07/18/17 21:49 Dose: 15 mg Miscellaneous (Probiotic Screen) 1 ea PRN PRN PRN Reason: PROTOCOL Stop: 08/29/17 11:59 Miscellaneous (Tpn Per Pharmacy) 1 ea PRN PRN PRN Reason: PROTOCOL Stop: 09/06/17 13:12 Morphine Sulfate (Morphine) 2 mg IVP Q4H PRN PRN Reason: Pain (Severe) Stop: 09/06/17 13:06 Last Admin: 07/09/17 22:21 Dose: 2 mg Nitroglycerin (Nitrostat) 0.4 mg SL Q5MIN PRN PRN Reason: Chest Pain Stop: 08/20/17 19:40 Ondansetron HCl (Zofran Odt) 4 mg PO Q6H PRN PRN Reason: Nausea / Vomiting Stop: 09/04/17 13:12 Pantoprazole Sodium (Protonix) 40 mg IVP BID ED Stop: 09/09/17 16:59 Last Admin: 07/19/17 09:13 Dose: 40 mg Sodium Phosphate (Fleet Enema) 135 ml RC PRN PRN PRN Reason: Constipation Stop: 09/10/17 09:36 Last Admin: 07/15/17 14:15 Dose: 135 ml General: weak, demented, thin, bilateral temporal wasting HEENT: NC/AT, PERRLA, thinning hair, other (ngt) Neck: Supple Lungs: rales, ronchi Cardiovascular: RRR, Normal S1, Normal S2, without murmur Abdomen: non-tender, distended Extremities: excoriation, contracture, deformity Neurological: lethargic, unsteady, bedbound - Procedures Procedures: Procedures Procedure Code Date PARTIAL REMOVAL OF COLON 85673 06/21/17 RESECTION OF RIGHT LARGE INTESTINE, OPEN APPROACH [id number] 06/21/17 Internal Medicine Assmt/Plan - Assessment Assessment: acute dvt cecal mass s/p exploratory lap right right hemicolectomy severe anemia dm2 schizophrenia htn psychosis hypokalemia - Plan Plan: continue with nutritional support-tpn monitor h/h cardiology follow up monitor electrolytes follow up labs in am will follow campaign consultant recommendations Nutritional Asmnt/Malnutr-PDOC - Dietary Evaluation Malnutrition Findings (Please click <Entered> for more info): Nutritional Asmnt/Malnutrition Start: 06/22/17 18: 04 Text: Status: Complete Freq: Document 06/22/17 18:04 LCHARSHAD (Rec: 06/22/17 18:15 [email or web address]) Nutritional Asmnt/Malnutrition Patient General Information Nutritional Screening High Risk Consult Diagnosis left lower extremity DVT, severe anemia, CHF, HTN Pertinent Medical Hx/Surgical Hx DM, anemia, renal stones, schizophrenia Subjective Information Pt seen lying in bed, confused at time of visit. Spoke with RN Dawood, RN reported pt ate well, consumed 60% of breakfast this morning. Per notes, pt has EGD and colonoscopy scheduled tommorrow. Current Diet Order/ Nutrition Support pureed Pertinent Medications D5-0.9ns, novolog, remeron, kcl Pertinent Labs 06/21 Na 137, K 3.5, Cl 100, BUN 24, Cr 1.3, Glucose 186, AST 10, ALT 6, Alb 2.6 06/22 POC 383 Nutritional Hx/Data Height 5 ft Height (Calculated Centimeters) 152.4 Current Weight (lbs) 86 lb Weight (Calculated Kilograms) 39.0 Weight (Calculated Grams) 34205.9 [place] Body Weight 100 % [place] Body Weight 86 Body Mass Index (BMI) 16.7 Weight Status Underweight GI Symptoms GI Symptoms None Last BM none Difficult in: None Skin Integrity/Comment: intact Current %PO Fair (50-74%) Estimated Nutritional Goals Calories/Kcals/Kg 25-30 based on IBW 45kg Kcals Calculated 0103-2876 Protein g/k-1.2 Protein Calculated 45-54 Fluid: ml 1125-1350ml (1ml/kcal) Nutritional Problem 1. Problem Problem altered nutrition related lab values Etiology hx of DM Signs/Symptoms: Glucose 186, POC 383 Malnutrition Alert Protein-Calorie Malnutrition N/A Is there a minimum of two criteria No selected? Query Text:Check all the applicable criteria. A minimum of two criteria are recommended for diagnosis of either severe or non-severe malnutrition. Intervention/Recommendation Comments 1. Recommend CCHO, low sodium diet for optimal glycemic and BP control. RN notified. 2. Monitor PO intake, wt, labs and skin integrity 3. F/U as high risk in 2-3 days, 06/24-06/25 Expected Outcomes/Goals Expected Outcomes/Goals 1. PO intake to meet at least 75% of nutritional needs. 2. Wt stability, skin to remain intact, labs to improve
[2017-07-19] MEDS: CEFAZOLIN IV ONE ×2 (14:49)
[2017-07-19] MEDS: NS 0.9% IV ONE ×2 (14:49)
--- NOTE | 2017-07-19 16:14 | Operative Report ---
DATE OF SURGERY: 07/19/2017 PROCEDURE: Esophagogastroduodenoscopy with G-tube insertion. PREOPERATIVE DIAGNOSIS: Dysphagia and anorexia with failure to thrive. POSTOPERATIVE DIAGNOSES: Status post successful 20-Monegasque G-tube insertion via pull technique. INDICATIONS: A 76-year-old female with a history of recent right hemicolectomy for colon cancer with prolonged and protracted postoperative course, with poor oral intake, and failure to thrive. An upper endoscopy is planned today for G-tube insertion. CONSENT: Informed consent was obtained from the patient's durable power of senior trial attorney prior to procedure after detailed explanation of risks, benefits, and alternatives including but not limited to infection, bleeding, perforation, and . SEDATION: Monitored anesthesia care per Dr. Cornejo. DESCRIPTION OF PROCEDURE AND FINDINGS: The procedure took place as an inpatient in the GI suite of [facility]. The patient was kept in a supine position with head of bed slightly elevated. Adequate sedation was achieved with above medications. An Olympus diagnostic upper endoscope was advanced through the patient's mouth and into the esophagus. The esophagus appeared normal with no evidence of esophagitis, stricture, or mass lesions. The Z line was normal appearing at 37 cm from the gums. Retroflexion in the stomach revealed no GE junction mass or varices. No hiatal hernia was identified. The rest of the stomach appeared normal. The pyloric channel and duodenum up to second portion appeared normal. The scope was then withdrawn back in the stomach; air was insufflated and an area in the epigastric/left upper quadrant skin was identified for G-tube insertion based on transillumination and finger indentation. This area in the skin was then prepped and draped using sterile technique and anesthetized with 5 mL of 1% lidocaine. A scalpel blade was used to make a 1 cm incision in the skin. This was followed by trocar needle insertion through the skin incision with the tip noted endoscopically in the stomach. A guidewire was then inserted via the trocar needle and grasped via snare device in the stomach. The scope along with the snare device holding on to the guidewire was then pulled out via the patient's mouth. A 20-Monegasque G-tube was attached to guidewire and then via pull technique pulled across the abdominal wall of the patient. The outer bumper was placed at the 4 cm bryce. Overlying dressing was placed. The tube was noted to be in good position. The patient tolerated the procedure well and no complications are anticipated. RECOMMENDATIONS: 1. May use G-tube for water flushes and medications today and start feedings in the morning. 2. Oral diet as per speech pathology. 3. Abdominal wall binder to prevent the patient from pulling out her own G-tube. Thank you, Dr. Jose Tobias for involving us in the care of your patient. If you have any further questions, please call us. JOB# [id number] MTDD
[2017-07-19] MEDS: TPN 8.5%-70% CUSTOM IV SCH (17:19)
--- NOTE | 2017-07-19 18:46 | General Progress Note ---
Subjective - Review of Systems Service Date: 07/19/17 Objective - Results Result Diagrams: 07/19/17 05:45 07/19/17 05:45 Recent Labs: Laboratory Last Values WBC 7.2 Th/cmm (4.8-10.8) 07/19/17 05:45 RBC 3.10 Mil/cmm (3.80-5.20) L 07/19/17 05:45 Hgb 8.8 gm/dL (12-16) L 07/19/17 05:45 Hct 26.4 % (41.0-60) L 07/19/17 05:45 MCV 85.0 fl (81-100) 07/19/17 05:45 MCH 28.3 pg (27.0-31.0) 07/19/17 05:45 MCHC Differential 33.3 pg (28.0-36.0) 07/19/17 05:45 RDW 16.1 % (11.5-20.0) 07/19/17 05:45 Plt Count 295 Th/cmm (150-400) 07/19/17 05:45 MPV 8.5 fl 07/19/17 05:45 Neutrophils % 65.3 % (40.0-80.0) 07/19/17 05:45 Band Neutrophils % 6 % (0-10) 07/15/17 04:15 Lymphocytes % 22.3 % (20.0-50.0) 07/19/17 05:45 Monocytes % 9.2 % (2.0-10.0) 07/19/17 05:45 Eosinophils % 2.9 % (0.0-5.0) 07/19/17 05:45 Basophils % 0.3 % (0.0-2.0) 07/19/17 05:45 Neutrophils (Manual) 65 % (40-80) 07/18/17 04:00 Lymphocytes 27 % (20-50) 07/18/17 04:00 Monocytes 4 % (2-10) 07/18/17 04:00 Eosinophils 4 % (0-5) 07/18/17 04:00 Hypochromia 1+ 07/04/17 04:30 Platelet Estimate ADEQUATE (NORMAL) 07/18/17 04:00 Polychromasia 1+ 07/04/17 04:30 Schistocytes 1+ 07/04/17 04:30 PT 10.5 SECONDS (9.5-11.5) 07/19/17 05:45 INR 1.01 (0.5-1.4) 07/19/17 05:45 PTT (Actin FS) 25.0 SECONDS (26.0-38.0) L 07/08/17 04:15 D-Dimer 3600 ng/mL (100-400) H 06/21/17 18:20 Specimen Source Arterial 06/28/17 10:55 Sample Site Right Radial 06/28/17 10:55 pH 7.44 (7.35-7.45) 06/28/17 10:55 pCO2 36.0 mmHg (35.0-45.0) 06/28/17 10:55 pO2 100.0 mmHg (80.0-100.0) 06/28/17 10:55 HCO3 25.4 mEq/L (20.0-26.0) 06/28/17 10:55 Base Excess 0.6 mEq/L (-3.0-3.0) 06/28/17 10:55 O2 Saturation 98.0 % (92.0-100.0) 06/28/17 10:55 Rashid Test Positive 06/28/17 10:55 Vent Rate N/A 06/28/17 10:55 Inspired O2 28 06/28/17 10:55 Tidal Volume N/A 06/28/17 10:55 PEEP N/A 06/28/17 10:55 Pressure (ins/psv/peep) N/A 06/28/17 10:55 Critical Value DM 06/28/17 10:55 Sodium 141 mEq/L (136-145) 07/19/17 05:45 Potassium 4.6 mEq/L (3.5-5.1) 07/19/17 05:45 Chloride 101 mEq/L (98-107) 07/19/17 05:45 Carbon Dioxide 34.3 mEq/L (21.0-31.0) H 07/19/17 05:45 Anion Gap 10.3 (7.0-16.0) 07/19/17 05:45 BUN 21 mg/dL (7-25) 07/19/17 05:45 Creatinine 1.1 mg/dL (0.6-1.2) 07/19/17 05:45 Est GFR ( Amer) TNP 07/19/17 05:45 Est GFR (Non-Af Amer) TNP 07/19/17 05:45 BUN/Creatinine Ratio 19.1 07/19/17 05:45 Glucose 176 mg/dL (70-105) H 07/19/17 05:45 POC Glucose 169 MG/DL (70 - 105) H 07/19/17 18:09 Hemoglobin A1c % 11.7 % (4.0-6.0) H 06/21/17 18:20 Calcium 8.6 mg/dL (8.6-10.3) 07/19/17 05:45 Phosphorus 4.3 mg/dL (2.5-5.0) 07/19/17 05:45 Magnesium 2.4 mg/dL (1.9-2.7) 07/19/17 05:45 Iron 19 ug/dL (27-139) L 06/22/17 05:20 TIBC 176 ug/dL (250-450) L 06/22/17 05:20 Iron Saturation 11 % (15-55) L 06/22/17 05:20 Unsaturated IBC 157 ug/dL (118-369) 06/22/17 05:20 Ferritin 164 ng/mL (15-150) H 06/22/17 05:20 Total Bilirubin 0.4 mg/dL (0.3-1.0) 07/15/17 04:15 AST 16 U/L (13-39) 07/15/17 04:15 ALT 8 U/L (7-52) 07/15/17 04:15 Alkaline Phosphatase 119 U/L (34-104) H 07/15/17 04:15 Ammonia 38 umol/L (16-53) 07/08/17 04:15 Creatine Kinase 39 U/L (30-223) 06/21/17 18:20 Troponin I 0.01 ng/mL (0.01-0.05) 06/21/17 18:20 B-Natriuretic Peptide 108.0 pg/mL (5.0-100.0) H 07/09/17 04:30 Total Protein 5.0 gm/dL (6.0-8.3) L 07/15/17 04:15 Albumin 1.7 gm/dL (3.7-5.3) L 07/15/17 04:15 Globulin 3.3 gm/dL 07/15/17 04:15 Albumin/Globulin Ratio 0.5 (1.0-1.8) L 07/15/17 04:15 Prealbumin 14 mg/dL (9-32) 07/15/17 04:15 Triglycerides 88 mg/dL (<150) 07/15/17 04:15 Cholesterol 94 mg/dL (<200) 07/15/17 04:15 LDL Cholesterol Direct 65 mg/dL (75-193) L 06/21/17 18:20 HDL Cholesterol 43 mg/dL (23-92) 06/21/17 18:20 Vitamin B12 1797 pg/mL (232-1245) H 07/02/17 03:41 Folic Acid 10.3 ng/mL (>3.0) 07/02/17 03:41 Helicobacter pylori Ab NEGATIVE (NEGATIVE) 07/09/17 14:54 Blood Type O POSITIVE 07/09/17 09:16 Antibody Screen NEGATIVE 07/09/17 09:16 Crossmatch See Detail 07/09/17 09:16 - Physical Exam Vitals and I&O: Vital Signs Temp 97.2 F 07/19/17 16:00 Pulse 80 07/19/17 18:04 Resp 18 07/19/17 18:00 BP 183/95 07/19/17 18:04 Pulse Ox 94 07/19/17 16:00 Intake & Output 07/18/17 07/19/17 07/19/17 18:59 06:59 18:59 Intake Total 1245.843 441 0631 Output Total 1152 1100 800 Balance 93.833 -500 1100 Weight (lbs) 74.389 kg 67.041 kg 66.678 kg Intake: Intake, IV Amount 050.225 2658 Cefepime 0.5 gm In 50 50 Dextrose 5% 50 ml @ 100 mls/hr IV Q24H ED Rx#: [id number] Dextrose 70% 700 ml Amino 466.899 8296 Acids 8.5% 500 ml @ 50 mls/hr IV .Q24H ED Rx#: [id number] ceFAZolin 1 gm In Sodium 50 Chloride 0.9% 50 ml @ 100 mls/hr IV X1 ONE Rx#: [id number] Oral 80 TPN/PPN 600 600 600 Output: Urine 1150 1100 800 Stool 2 Other: # Bowel Movements 1 1 Stool Characteristics Mucoid Green Active Medications: Current Medications Acetaminophen (Tylenol) 650 mg PO Q4H PRN PRN Reason: Pain Or Fever above 101 Stop: 08/20/17 19:40 Al Hydrox/Mg Hydrox/Simethicone (Maalox) 30 ml PO Q6H PRN PRN Reason: Dyspepsia Stop: 08/20/17 19:40 Albuterol Sulfate (Albuterol 2.5mg/3ml Neb Ud) 2.5 mg HHN Q2HRT PRN PRN Reason: Shortness of Breath or Wheeze Stop: 08/20/17 19:40 Last Admin: 07/11/17 05:23 Dose: 2.5 mg Albuterol/Ipratropium (Duoneb Neb) 3 ml HHN Q6HRT [facility] Stop: 08/30/17 18:59 Last Admin: 07/19/17 13:43 Dose: 3 ml Amlodipine Besylate (Norvasc) 10 mg PO DAILY [facility] Stop: 09/06/17 08:59 Last Admin: 07/19/17 08:53 Dose: Not Given Diltiazem HCl (Cardizem) 20 mg IVP Q4H PRN PRN Reason: HR> 120 Stop: 09/04/17 17:55 Enalaprilat (Vasotec) 1.25 mg IVP Q6HR PRN PRN Reason: SBP 160 mmhg and above Stop: 09/08/17 05:59 Last Admin: 07/12/17 11:41 Dose: 1.25 mg Enalaprilat (Vasotec) 2.5 mg IVP Q4HR [facility] Stop: 09/10/17 15:59 Last Admin: 07/19/17 17:03 Dose: 2.5 mg Guaifenesin (Robitussin) 200 mg PO Q4HR PRN PRN Reason: Cough or Congestion Stop: 08/20/17 19:40 Haloperidol Decanoate (Haldol Dec) 25 mg IM QMONTH [facility] Stop: 08/23/17 09:59 Last Admin: 06/24/17 09:10 Dose: 25 mg Hydralazine HCl (Apresoline 20 Mg/Ml) 10 mg IV Q6HR PRN PRN Reason: SBP ABOVE 160 Stop: 08/25/17 12:20 Last Admin: 07/13/17 22:42 Dose: 10 mg Cefepime HCl 0.5 gm/ Dextrose 50 mls @ 100 mls/hr IV Q24H [facility] Stop: 09/06/17 13:59 Last Infusion: 07/19/17 14:56 Dose: Infused Dextrose/Sodium Chloride (D5-0.45ns) 1,000 mls @ 20 mls/hr IV .Q24H ED Stop: 09/08/17 09:25 Last Admin: 07/18/17 06:00 Dose: 20 mls/hr Dextrose/ Amino Acids/ (Electrolytes) 1,200 mls @ 50 mls/hr IV .Q24H ED Stop: 08/09/17 15:59 Last Admin: 07/19/17 17:19 Dose: 50 mls/hr Nitroglycerin/Dextrose (Nitroglycerin 50mg/Dextrose 5% Premix) 50 mg in 250 mls @ 0 mls/hr IV TITR PRN; Protocol; Per Protocol PRN Reason: BP MAINTENANCE Stop: 09/12/17 09:12 Last Titration: 07/16/17 09:00 Dose: 0 mcg/min, 0 mls/hr Insulin Aspart (Novolog) 0 units SUBQ Q6HR ED PRN Reason: Protocol Stop: 09/03/17 00:00 Last Admin: 07/19/17 18:13 Dose: Not Given Ipratropium [place] (Atrovent Neb 0.5mg/2.5ml) 0.5 mg IH Q2HRT PRN PRN Reason: Shortness of Breath or Wheeze Stop: 08/20/17 19:40 Last Admin: 07/11/17 05:23 Dose: 0.5 mg Labetalol HCl (Trandate) 10 mg IVP Q4HR PRN PRN Reason: SBP ABOVE 160 Stop: 09/09/17 13:16 Last Admin: 07/12/17 03:38 Dose: 10 mg Lactobacillus Rhamnosus (Culturelle 15b) 1 each PO DAILY [facility] Stop: 08/30/17 08:59 Last Admin: 07/19/17 08:53 Dose: Not Given Losartan Potassium (Cozaar) 100 mg PO DAILY [facility] Stop: 09/13/17 15:59 Last Admin: 07/19/17 08:53 Dose: Not Given Mirtazapine (Remeron) 15 mg PO HS ED PRN Reason: Protocol Stop: 08/20/17 20:59 Last Admin: 07/18/17 21:49 Dose: 15 mg Miscellaneous (Probiotic Screen) 1 ea MC PRN PRN PRN Reason: PROTOCOL Stop: 08/29/17 11:59 Miscellaneous (Tpn Per Pharmacy) 1 ea MC PRN PRN PRN Reason: PROTOCOL Stop: 09/06/17 13:12 Morphine Sulfate (Morphine) 2 mg IVP Q4H PRN PRN Reason: Pain (Severe) Stop: 09/06/17 13:06 Last Admin: 07/09/17 22:21 Dose: 2 mg Nitroglycerin (Nitrostat) 0.4 mg SL Q5MIN PRN PRN Reason: Chest Pain Stop: 08/20/17 19:40 Ondansetron HCl (Zofran Odt) 4 mg PO Q6H PRN PRN Reason: Nausea / Vomiting Stop: 09/04/17 13:12 Pantoprazole Sodium (Protonix) 40 mg IVP BID ED Stop: 09/09/17 16:59 Last Admin: 07/19/17 17:03 Dose: 40 mg Sodium Phosphate (Fleet Enema) 135 ml RC PRN PRN PRN Reason: Constipation Stop: 09/10/17 09:36 Last Admin: 07/15/17 14:15 Dose: 135 ml General: No acute distress HEENT: Atraumatic Neck: Supple Cardiovascular: Regular rate Abdomen: Bowel sounds, Soft, Other (dressing in midline no bleeding), no Tender , no Mass, no Guarding Extremities: Other (right arm picc) - Procedures Procedures: Procedures Procedure Code Date PARTIAL REMOVAL OF COLON 49546 06/21/17 RESECTION OF RIGHT LARGE INTESTINE, OPEN APPROACH [id number] 06/21/17 Assessment/Plan - Assessment Assessment: * DVT * ANEMIA secondary to GI bleeding * CKD * 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 and recent bleeding. hgb is rising without transfusion; monitor cbc. If hgb remains stable, i'll start low dose heparin Path. discussed with pathologist. no invasion. no transfusion today Nutritional Asmnt/Malnutr-PDOC - Dietary Evaluation Malnutrition Findings (Please click <Entered> for more info): Nutritional Asmnt/Malnutrition Start: 06/22/17 18: 04 Text: Status: Complete Freq: Document 06/22/17 18:04 GRISELDA (Rec: 06/22/17 18:15 [email or web address] [email or web address]) Nutritional Asmnt/Malnutrition Patient General Information Nutritional Screening High Risk Consult Diagnosis left lower extremity DVT, severe anemia, CHF, HTN Pertinent Medical Hx/Surgical Hx DM, anemia, renal stones, schizophrenia Subjective Information Pt seen lying in bed, confused at time of visit. Spoke with LULÚ Seay, RN reported pt ate well, consumed 60% of breakfast this morning. Per notes, pt has EGD and colonoscopy scheduled tommorrow. Current Diet Order/ Nutrition Support pureed Pertinent Medications D5-0.9ns, novolog, remeron, kcl Pertinent Labs 06/21 Na 137, K 3.5, Cl 100, BUN 24, Cr 1.3, Glucose 186, AST 10, ALT 6, Alb 2.6 06/22 POC 383 Nutritional Hx/Data Height 1.52 m Height (Calculated Centimeters) 152.4 Current Weight (lbs) 39.009 kg Weight (Calculated Kilograms) 39.0 Weight (Calculated Grams) 29268.9 [place] Body Weight 100 % [place] Body Weight 86 Body Mass Index (BMI) 16.7 Weight Status Underweight GI Symptoms GI Symptoms None Last BM none Difficult in: None Skin Integrity/Comment: intact Current %PO Fair (50-74%) Estimated Nutritional Goals Calories/Kcals/Kg 25-30 based on IBW 45kg Kcals Calculated 4936-1408 Protein g/k-1.2 Protein Calculated 45-54 Fluid: ml 1125-1350ml (1ml/kcal) Nutritional Problem 1. Problem Problem altered nutrition related lab values Etiology hx of DM Signs/Symptoms: Glucose 186, POC 383 Malnutrition Alert Protein-Calorie Malnutrition N/A Is there a minimum of two criteria No selected? Query Text:Check all the applicable criteria. A minimum of two criteria are recommended for diagnosis of either severe or non-severe malnutrition. Intervention/Recommendation Comments 1. Recommend CCHO, low sodium diet for optimal glycemic and BP control. RN notified. 2. Monitor PO intake, wt, labs and skin integrity 3. F/U as high risk in 2-3 days, 06/24-06/25 Expected Outcomes/Goals Expected Outcomes/Goals 1. PO intake to meet at least 75% of nutritional needs. 2. Wt stability, skin to remain intact, labs to improve
[2017-07-20] MEDS: INSULIN ASPART, RECOMBINANT 100 UNITS/ML SUBQ SCH ×3 (00:14→11:14)
[2017-07-20] MEDS: Morphine Sulfate 2 mg/mL 1mL Syr IVP PRN (01:13)
[2017-07-20] MEDS: Albuterol/Ipratropium Neb 3 ML AERS HHN SCH ×3 (01:20→13:55)
[2017-07-20] MEDS: D5-0.45NS 1,000 ML IV SCH (05:04)
[2017-07-20 05:48] LABS: % BASOPHILS 0.6 % (0.0-2.0); % EOSINOPHILS 2.7 % (0.0-5.0); % LYMPHOCYTES 21.1 % (20.0-50.0); % MONOCYTES 9.7 % (2.0-10.0); % NEUTROPHILS 65.9 % (40.0-80.0); EOSINOPHILE ABSOLUTE 0.2 Th/cmm (0.1-0.4); HEMATOCRIT 25.3 % (41.0-60); HEMOGLOBIN 8.5 gm/dL (12-16); LYMPHOCYTE ABSOLUTE 1.8 Th/cmm (1.5-3.0); MEAN CELL VOLUME 84.8 fl (81-100); MEAN CORPUSCULAR HEMOGLOBIN 28.3 pg (27.0-31.0); MEAN CORPUSCULAR HGB CONC 33.4 pg (28.0-36.0); MEAN PLATELET VOLUME 8.3 fl; MONOCYTE ABSOLUTE 0.8 Th/cmm (0.3-1.0); NEUTROPHILE ABSOLUTE 5.5 Th/cmm (1.8-8.0); PLATELET COUNT 313 Th/cmm (150-400); RED BLOOD COUNT 2.99 Mil/cmm (3.80-5.20); RED CELL DISTRIBUTION WIDTH 16.2 % (11.5-20.0); WHITE BLOOD COUNT 8.3 Th/cmm (4.8-10.8)
[2017-07-20 07:06] LABS: ALB/GLOB RATIO 0.5 (1.0-1.8); ALBUMIN 1.8 gm/dL (3.7-5.3); ALKALINE PHOSPHATASE 111 U/L (34-104); ANION GAP 9.8 (7.0-16.0); BILIRUBIN,TOTAL 0.3 mg/dL (0.3-1.0); BUN - UREA NITROGEN 21 mg/dL (7-25); CALCIUM SERUM 8.4 mg/dL (8.6-10.3); CARBON DIOXIDE 32.8 mEq/L (21.0-31.0); CHLORIDE 101 mEq/L (98-107); CREATININE - SERUM 1.1 mg/dL (0.6-1.2); GLUCOSE 164 mg/dL (70-105); POTASSIUM SERUM 4.6 mEq/L (3.5-5.1); SGOT 12 U/L (13-39); SGPT/ALT 7 U/L (7-52); SODIUM SERUM 139 mEq/L (136-145); TOTAL PROTEIN,SERUM 5.7 gm/dL (6.0-8.3)
[2017-07-20] MEDS: Lactobacillus Rhamnosus GG 15 Billion CFU CAP.SPRINK PO SCH (08:27)
--- NOTE | 2017-07-20 09:52 | General Progress Note ---
Subjective - Review of Systems Service Date: 07/20/17 Objective - Results Result Diagrams: 07/20/17 05:20 07/20/17 05:20 Recent Labs: Laboratory Last Values WBC 8.3 Th/cmm (4.8-10.8) 07/20/17 05:20 RBC 2.99 Mil/cmm (3.80-5.20) L 07/20/17 05:20 Hgb 8.5 gm/dL (12-16) L 07/20/17 05:20 Hct 25.3 % (41.0-60) L 07/20/17 05:20 MCV 84.8 fl (81-100) 07/20/17 05:20 MCH 28.3 pg (27.0-31.0) 07/20/17 05:20 MCHC Differential 33.4 pg (28.0-36.0) 07/20/17 05:20 RDW 16.2 % (11.5-20.0) 07/20/17 05:20 Plt Count 313 Th/cmm (150-400) 07/20/17 05:20 MPV 8.3 fl 07/20/17 05:20 Neutrophils % 65.9 % (40.0-80.0) 07/20/17 05:20 Band Neutrophils % 6 % (0-10) 07/15/17 04:15 Lymphocytes % 21.1 % (20.0-50.0) 07/20/17 05:20 Monocytes % 9.7 % (2.0-10.0) 07/20/17 05:20 Eosinophils % 2.7 % (0.0-5.0) 07/20/17 05:20 Basophils % 0.6 % (0.0-2.0) 07/20/17 05:20 Neutrophils (Manual) 65 % (40-80) 07/18/17 04:00 Lymphocytes 27 % (20-50) 07/18/17 04:00 Monocytes 4 % (2-10) 07/18/17 04:00 Eosinophils 4 % (0-5) 07/18/17 04:00 Hypochromia 1+ 07/04/17 04:30 Platelet Estimate ADEQUATE (NORMAL) 07/18/17 04:00 Polychromasia 1+ 07/04/17 04:30 Schistocytes 1+ 07/04/17 04:30 PT 10.5 SECONDS (9.5-11.5) 07/19/17 05:45 INR 1.01 (0.5-1.4) 07/19/17 05:45 PTT (Actin FS) 25.0 SECONDS (26.0-38.0) L 07/08/17 04:15 D-Dimer 3600 ng/mL (100-400) H 06/21/17 18:20 Specimen Source Arterial 06/28/17 10:55 Sample Site Right Radial 06/28/17 10:55 pH 7.44 (7.35-7.45) 06/28/17 10:55 pCO2 36.0 mmHg (35.0-45.0) 06/28/17 10:55 pO2 100.0 mmHg (80.0-100.0) 06/28/17 10:55 HCO3 25.4 mEq/L (20.0-26.0) 06/28/17 10:55 Base Excess 0.6 mEq/L (-3.0-3.0) 06/28/17 10:55 O2 Saturation 98.0 % (92.0-100.0) 06/28/17 10:55 Rashid Test Positive 06/28/17 10:55 Vent Rate N/A 06/28/17 10:55 Inspired O2 28 06/28/17 10:55 Tidal Volume N/A 06/28/17 10:55 PEEP N/A 06/28/17 10:55 Pressure (ins/psv/peep) N/A 06/28/17 10:55 Critical Value DM 06/28/17 10:55 Sodium 139 mEq/L (136-145) 07/20/17 05:20 Potassium 4.6 mEq/L (3.5-5.1) 07/20/17 05:20 Chloride 101 mEq/L (98-107) 07/20/17 05:20 Carbon Dioxide 32.8 mEq/L (21.0-31.0) H 07/20/17 05:20 Anion Gap 9.8 (7.0-16.0) 07/20/17 05:20 BUN 21 mg/dL (7-25) 07/20/17 05:20 Creatinine 1.1 mg/dL (0.6-1.2) 07/20/17 05:20 Est GFR ( Amer) TNP 07/20/17 05:20 Est GFR (Non-Af Amer) TNP 07/20/17 05:20 BUN/Creatinine Ratio 19.1 07/20/17 05:20 Glucose 164 mg/dL (70-105) H 07/20/17 05:20 POC Glucose 146 MG/DL (70 - 105) H 07/20/17 06:54 Hemoglobin A1c % 11.7 % (4.0-6.0) H 06/21/17 18:20 Calcium 8.4 mg/dL (8.6-10.3) L 07/20/17 05:20 Phosphorus 4.3 mg/dL (2.5-5.0) 07/19/17 05:45 Magnesium 2.4 mg/dL (1.9-2.7) 07/19/17 05:45 Iron 19 ug/dL (27-139) L 06/22/17 05:20 TIBC 176 ug/dL (250-450) L 06/22/17 05:20 Iron Saturation 11 % (15-55) L 06/22/17 05:20 Unsaturated IBC 157 ug/dL (118-369) 06/22/17 05:20 Ferritin 164 ng/mL (15-150) H 06/22/17 05:20 Total Bilirubin 0.3 mg/dL (0.3-1.0) 07/20/17 05:20 AST 12 U/L (13-39) L 07/20/17 05:20 ALT 7 U/L (7-52) 07/20/17 05:20 Alkaline Phosphatase 111 U/L (34-104) H 07/20/17 05:20 Ammonia 38 umol/L (16-53) 07/08/17 04:15 Creatine Kinase 39 U/L (30-223) 06/21/17 18:20 Troponin I 0.01 ng/mL (0.01-0.05) 06/21/17 18:20 B-Natriuretic Peptide 108.0 pg/mL (5.0-100.0) H 07/09/17 04:30 Total Protein 5.7 gm/dL (6.0-8.3) L 07/20/17 05:20 Albumin 1.8 gm/dL (3.7-5.3) L 07/20/17 05:20 Globulin 3.9 gm/dL 07/20/17 05:20 Albumin/Globulin Ratio 0.5 (1.0-1.8) L 07/20/17 05:20 Prealbumin 14 mg/dL (9-32) 07/15/17 04:15 Triglycerides 88 mg/dL (<150) 07/15/17 04:15 Cholesterol 94 mg/dL (<200) 07/15/17 04:15 LDL Cholesterol Direct 65 mg/dL (75-193) L 06/21/17 18:20 HDL Cholesterol 43 mg/dL (23-92) 06/21/17 18:20 Vitamin B12 1797 pg/mL (232-1245) H 07/02/17 03:41 Folic Acid 10.3 ng/mL (>3.0) 07/02/17 03:41 Helicobacter pylori Ab NEGATIVE (NEGATIVE) 07/09/17 14:54 Blood Type O POSITIVE 07/09/17 09:16 Antibody Screen NEGATIVE 07/09/17 09:16 Crossmatch See Detail 07/09/17 09:16 - Physical Exam Vitals and I&O: Vital Signs Temp 96.3 F 07/20/17 07:00 Pulse 77 07/20/17 08:27 Resp 17 07/20/17 07:04 BP 188/95 07/20/17 08:27 Pulse Ox 99 07/20/17 07:04 Intake & Output 07/19/17 07/20/17 07/20/17 18:59 06:59 18:59 Intake Total 1900 941.333 540 Output Total 800 1600 Balance 1100 941.333 -1060 Weight (lbs) 66.678 kg 66.678 kg Intake: Intake, IV Amount 1300 941.333 Cefepime 0.5 gm In 50 Dextrose 5% 50 ml @ 100 mls/hr IV Q24H ED Rx#: [id number] D5-0.45NS 1,000 ml @ 20 941.333 mls/hr IV .Q24H ED Rx#: [id number] Dextrose 70% 700 ml Amino 1200 Acids 8.5% 500 ml @ 50 mls/hr IV .Q24H [facility] Rx#: [id number] ceFAZolin 1 gm In Sodium 50 Chloride 0.9% 50 ml @ 100 mls/hr IV X1 ONE Rx#: [id number] Tube Feeding 40 TPN/PPN 600 500 Output: Urine 800 1600 Other: # Bowel Movements 1 1 Active Medications: Current Medications Acetaminophen (Tylenol) 650 mg PO Q4H PRN PRN Reason: Pain Or Fever above 101 Stop: 08/20/17 19:40 Al Hydrox/Mg Hydrox/Simethicone (Maalox) 30 ml PO Q6H PRN PRN Reason: Dyspepsia Stop: 08/20/17 19:40 Albuterol Sulfate (Albuterol 2.5mg/3ml Neb Ud) 2.5 mg HHN Q2HRT PRN PRN Reason: Shortness of Breath or Wheeze Stop: 08/20/17 19:40 Last Admin: 07/11/17 05:23 Dose: 2.5 mg Albuterol/Ipratropium (Duoneb Neb) 3 ml HHN Q6HRT [facility] Stop: 08/30/17 18:59 Last Admin: 07/20/17 07:04 Dose: 3 ml Amlodipine Besylate (Norvasc) 10 mg PO DAILY [facility] Stop: 09/06/17 08:59 Last Admin: 07/20/17 08:27 Dose: 10 mg Diltiazem HCl (Cardizem) 20 mg IVP Q4H PRN PRN Reason: HR> 120 Stop: 09/04/17 17:55 Enalaprilat (Vasotec) 1.25 mg IVP Q6HR PRN PRN Reason: SBP 160 mmhg and above Stop: 09/08/17 05:59 Last Admin: 07/20/17 01:12 Dose: 1.25 mg Enalaprilat (Vasotec) 2.5 mg IVP Q4HR [facility] Stop: 09/10/17 15:59 Last Admin: 07/20/17 08:26 Dose: 2.5 mg Guaifenesin (Robitussin) 200 mg PO Q4HR PRN PRN Reason: Cough or Congestion Stop: 08/20/17 19:40 Haloperidol Decanoate (Haldol Dec) 25 mg IM QMONTH [facility] Stop: 08/23/17 09:59 Last Admin: 06/24/17 09:10 Dose: 25 mg Hydralazine HCl (Apresoline 20 Mg/Ml) 10 mg IV Q6HR PRN PRN Reason: SBP ABOVE 160 Stop: 08/25/17 12:20 Last Admin: 07/13/17 22:42 Dose: 10 mg Cefepime HCl 0.5 gm/ Dextrose 50 mls @ 100 mls/hr IV Q24H [facility] Stop: 09/06/17 13:59 Last Infusion: 07/19/17 14:56 Dose: Infused Dextrose/Sodium Chloride (D5-0.45ns) 1,000 mls @ 20 mls/hr IV .Q24H [facility] Stop: 09/08/17 09:25 Last Admin: 07/20/17 05:04 Dose: 20 mls/hr Dextrose/ Amino Acids/ (Electrolytes) 1,200 mls @ 50 mls/hr IV .Q24H [facility] Stop: 08/09/17 15:59 Last Admin: 07/19/17 17:19 Dose: 50 mls/hr Nitroglycerin/Dextrose (Nitroglycerin 50mg/Dextrose 5% Premix) 50 mg in 250 mls @ 0 mls/hr IV TITR PRN; Protocol; Per Protocol PRN Reason: BP MAINTENANCE Stop: 09/12/17 09:12 Last Titration: 07/16/17 09:00 Dose: 0 mcg/min, 0 mls/hr Insulin Aspart (Novolog) 0 units SUBQ Q6HR ED PRN Reason: Protocol Stop: 09/03/17 00:00 Last Admin: 07/20/17 07:21 Dose: Not Given Ipratropium [place] (Atrovent Neb 0.5mg/2.5ml) 0.5 mg IH Q2HRT PRN PRN Reason: Shortness of Breath or Wheeze Stop: 08/20/17 19:40 Last Admin: 07/11/17 05:23 Dose: 0.5 mg Labetalol HCl (Trandate) 10 mg IVP Q4HR PRN PRN Reason: SBP ABOVE 160 Stop: 09/09/17 13:16 Last Admin: 07/12/17 03:38 Dose: 10 mg Lactobacillus Rhamnosus (Culturelle 15b) 1 each PO DAILY [facility] Stop: 08/30/17 08:59 Last Admin: 07/20/17 08:27 Dose: 1 each Losartan Potassium (Cozaar) 100 mg PO DAILY [facility] Stop: 09/13/17 15:59 Last Admin: 07/20/17 08:26 Dose: 100 mg Mirtazapine (Remeron) 15 mg PO HS ED PRN Reason: Protocol Stop: 08/20/17 20:59 Last Admin: 07/19/17 21:25 Dose: 15 mg Miscellaneous (Probiotic Screen) 1 ea MC PRN PRN PRN Reason: PROTOCOL Stop: 08/29/17 11:59 Miscellaneous (Tpn Per Pharmacy) 1 ea MC PRN PRN PRN Reason: PROTOCOL Stop: 09/06/17 13:12 Morphine Sulfate (Morphine) 2 mg IVP Q4H PRN PRN Reason: Pain (Severe) Stop: 09/06/17 13:06 Last Admin: 07/20/17 01:13 Dose: 2 mg Nitroglycerin (Nitrostat) 0.4 mg SL Q5MIN PRN PRN Reason: Chest Pain Stop: 08/20/17 19:40 Ondansetron HCl (Zofran Odt) 4 mg PO Q6H PRN PRN Reason: Nausea / Vomiting Stop: 09/04/17 13:12 Pantoprazole Sodium (Protonix) 40 mg IVP BID ED Stop: 09/09/17 16:59 Last Admin: 07/20/17 08:27 Dose: 40 mg Sodium Phosphate (Fleet Enema) 135 ml RC PRN PRN PRN Reason: Constipation Stop: 09/10/17 09:36 Last Admin: 07/15/17 14:15 Dose: 135 ml General: No acute distress HEENT: Atraumatic Neck: Supple Cardiovascular: Regular rate Abdomen: Bowel sounds, Soft, Other (dressing in midline no bleeding), no Tender , no Mass, no Guarding Extremities: Other (right arm picc) - Procedures Procedures: Procedures Procedure Code Date PARTIAL REMOVAL OF COLON 45391 06/21/17 RESECTION OF RIGHT LARGE INTESTINE, OPEN APPROACH [id number] 06/21/17 Assessment/Plan - Assessment Assessment: * DVT * ANEMIA secondary to GI bleeding * CKD * 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 and recent bleeding. hgb is lower today; monitor cbc. If hgb remains stable, i'll start low dose heparin Path. discussed with pathologist. no invasion. no transfusion today Nutritional Asmnt/Malnutr-PDOC - Dietary Evaluation Malnutrition Findings (Please click <Entered> for more info): Nutritional Asmnt/Malnutrition Start: 06/22/17 18: 04 Text: Status: Complete Freq: Document 06/22/17 18:04 GRISELDA (Rec: 06/22/17 18:15 [id number]) Nutritional Asmnt/Malnutrition Patient General Information Nutritional Screening High Risk Consult Diagnosis left lower extremity DVT, severe anemia, CHF, HTN Pertinent Medical Hx/Surgical Hx DM, anemia, renal stones, schizophrenia Subjective Information Pt seen lying in bed, confused at time of visit. Spoke with LULÚ Seay, RN reported pt ate well, consumed 60% of breakfast this morning. Per notes, pt has EGD and colonoscopy scheduled tommorrow. Current Diet Order/ Nutrition Support pureed Pertinent Medications D5-0.9ns, novolog, remeron, kcl Pertinent Labs 06/21 Na 137, K 3.5, Cl 100, BUN 24, Cr 1.3, Glucose 186, AST 10, ALT 6, Alb 2.6 06/22 POC 383 Nutritional Hx/Data Height 1.52 m Height (Calculated Centimeters) 152.4 Current Weight (lbs) 39.009 kg Weight (Calculated Kilograms) 39.0 Weight (Calculated Grams) 67059.9 [place] Body Weight 100 % [place] Body Weight 86 Body Mass Index (BMI) 16.7 Weight Status Underweight GI Symptoms GI Symptoms None Last BM none Difficult in: None Skin Integrity/Comment: intact Current %PO Fair (50-74%) Estimated Nutritional Goals Calories/Kcals/Kg 25-30 based on IBW 45kg Kcals Calculated 8221-9766 Protein g/k-1.2 Protein Calculated 45-54 Fluid: ml 1125-1350ml (1ml/kcal) Nutritional Problem 1. Problem Problem altered nutrition related lab values Etiology hx of DM Signs/Symptoms: Glucose 186, POC 383 Malnutrition Alert Protein-Calorie Malnutrition N/A Is there a minimum of two criteria No selected? Query Text:Check all the applicable criteria. A minimum of two criteria are recommended for diagnosis of either severe or non-severe malnutrition. Intervention/Recommendation Comments 1. Recommend CCHO, low sodium diet for optimal glycemic and BP control. RN notified. 2. Monitor PO intake, wt, labs and skin integrity 3. F/U as high risk in 2-3 days, 06/24-06/25 Expected Outcomes/Goals Expected Outcomes/Goals 1. PO intake to meet at least 75% of nutritional needs. 2. Wt stability, skin to remain intact, labs to improve
--- NOTE | 2017-07-20 13:31 | Internal Medicine Prog Note ---
Internal Medicine Subjective - Subjective Service Date: 07/20/17 (dc summary dictated [id number]) Patient is:: awake, non-verbal, non-interactive Patient Complaints of:: congestion Per staff patient has:: no adverse event, no episodes of fall, poor appetite, poor oral intake, tolerating meds Internal Medicine Objective - Results Result Diagrams: 07/20/17 05:20 07/20/17 05:20 Recent Labs: Laboratory Last Values WBC 8.3 Th/cmm (4.8-10.8) 07/20/17 05:20 RBC 2.99 Mil/cmm (3.80-5.20) L 07/20/17 05:20 Hgb 8.5 gm/dL (12-16) L 07/20/17 05:20 Hct 25.3 % (41.0-60) L 07/20/17 05:20 MCV 84.8 fl (81-100) 07/20/17 05:20 MCH 28.3 pg (27.0-31.0) 07/20/17 05:20 MCHC Differential 33.4 pg (28.0-36.0) 07/20/17 05:20 RDW 16.2 % (11.5-20.0) 07/20/17 05:20 Plt Count 313 Th/cmm (150-400) 07/20/17 05:20 MPV 8.3 fl 07/20/17 05:20 Neutrophils % 65.9 % (40.0-80.0) 07/20/17 05:20 Band Neutrophils % 6 % (0-10) 07/15/17 04:15 Lymphocytes % 21.1 % (20.0-50.0) 07/20/17 05:20 Monocytes % 9.7 % (2.0-10.0) 07/20/17 05:20 Eosinophils % 2.7 % (0.0-5.0) 07/20/17 05:20 Basophils % 0.6 % (0.0-2.0) 07/20/17 05:20 Neutrophils (Manual) 65 % (40-80) 07/18/17 04:00 Lymphocytes 27 % (20-50) 07/18/17 04:00 Monocytes 4 % (2-10) 07/18/17 04:00 Eosinophils 4 % (0-5) 07/18/17 04:00 Hypochromia 1+ 07/04/17 04:30 Platelet Estimate ADEQUATE (NORMAL) 07/18/17 04:00 Polychromasia 1+ 07/04/17 04:30 Schistocytes 1+ 07/04/17 04:30 PT 10.5 SECONDS (9.5-11.5) 07/19/17 05:45 INR 1.01 (0.5-1.4) 07/19/17 05:45 PTT (Actin FS) 25.0 SECONDS (26.0-38.0) L 07/08/17 04:15 D-Dimer 3600 ng/mL (100-400) H 06/21/17 18:20 Specimen Source Arterial 06/28/17 10:55 Sample Site Right Radial 06/28/17 10:55 pH 7.44 (7.35-7.45) 06/28/17 10:55 pCO2 36.0 mmHg (35.0-45.0) 06/28/17 10:55 pO2 100.0 mmHg (80.0-100.0) 06/28/17 10:55 HCO3 25.4 mEq/L (20.0-26.0) 06/28/17 10:55 Base Excess 0.6 mEq/L (-3.0-3.0) 06/28/17 10:55 O2 Saturation 98.0 % (92.0-100.0) 06/28/17 10:55 Rashid Test Positive 06/28/17 10:55 Vent Rate N/A 06/28/17 10:55 Inspired O2 28 06/28/17 10:55 Tidal Volume N/A 06/28/17 10:55 PEEP N/A 06/28/17 10:55 Pressure (ins/psv/peep) N/A 06/28/17 10:55 Critical Value DM 06/28/17 10:55 Sodium 139 mEq/L (136-145) 07/20/17 05:20 Potassium 4.6 mEq/L (3.5-5.1) 07/20/17 05:20 Chloride 101 mEq/L (98-107) 07/20/17 05:20 Carbon Dioxide 32.8 mEq/L (21.0-31.0) H 07/20/17 05:20 Anion Gap 9.8 (7.0-16.0) 07/20/17 05:20 BUN 21 mg/dL (7-25) 07/20/17 05:20 Creatinine 1.1 mg/dL (0.6-1.2) 07/20/17 05:20 Est GFR ( Amer) TNP 07/20/17 05:20 Est GFR (Non-Af Amer) TNP 07/20/17 05:20 BUN/Creatinine Ratio 19.1 07/20/17 05:20 Glucose 164 mg/dL (70-105) H 07/20/17 05:20 POC Glucose 161 MG/DL (70 - 105) H 07/20/17 11:12 Hemoglobin A1c % 11.7 % (4.0-6.0) H 06/21/17 18:20 Calcium 8.4 mg/dL (8.6-10.3) L 07/20/17 05:20 Phosphorus 4.1 mg/dL (2.5-5.0) 07/20/17 05:20 Magnesium 2.1 mg/dL (1.9-2.7) 07/20/17 05:20 Iron 19 ug/dL (27-139) L 06/22/17 05:20 TIBC 176 ug/dL (250-450) L 06/22/17 05:20 Iron Saturation 11 % (15-55) L 06/22/17 05:20 Unsaturated IBC 157 ug/dL (118-369) 06/22/17 05:20 Ferritin 164 ng/mL (15-150) H 06/22/17 05:20 Total Bilirubin 0.3 mg/dL (0.3-1.0) 07/20/17 05:20 AST 12 U/L (13-39) L 07/20/17 05:20 ALT 7 U/L (7-52) 07/20/17 05:20 Alkaline Phosphatase 111 U/L (34-104) H 07/20/17 05:20 Ammonia 38 umol/L (16-53) 07/08/17 04:15 Creatine Kinase 39 U/L (30-223) 06/21/17 18:20 Troponin I 0.01 ng/mL (0.01-0.05) 06/21/17 18:20 B-Natriuretic Peptide 108.0 pg/mL (5.0-100.0) H 07/09/17 04:30 Total Protein 5.7 gm/dL (6.0-8.3) L 07/20/17 05:20 Albumin 1.8 gm/dL (3.7-5.3) L 07/20/17 05:20 Globulin 3.9 gm/dL 07/20/17 05:20 Albumin/Globulin Ratio 0.5 (1.0-1.8) L 07/20/17 05:20 Prealbumin 14 mg/dL (9-32) 07/15/17 04:15 Triglycerides 88 mg/dL (<150) 07/15/17 04:15 Cholesterol 94 mg/dL (<200) 07/15/17 04:15 LDL Cholesterol Direct 65 mg/dL (75-193) L 06/21/17 18:20 HDL Cholesterol 43 mg/dL (23-92) 06/21/17 18:20 Vitamin B12 1797 pg/mL (232-1245) H 07/02/17 03:41 Folic Acid 10.3 ng/mL (>3.0) 07/02/17 03:41 Helicobacter pylori Ab NEGATIVE (NEGATIVE) 07/09/17 14:54 Blood Type O POSITIVE 07/09/17 09:16 Antibody Screen NEGATIVE 07/09/17 09:16 Crossmatch See Detail 07/09/17 09:16 - Physical Exam Vitals and I&O: Vital Signs Temp 97.2 F 07/20/17 12:39 Pulse 74 07/20/17 12:39 Resp 17 07/20/17 12:39 BP 148/75 07/20/17 12:39 Pulse Ox 98 07/20/17 12:39 Intake & Output 07/19/17 07/20/17 07/20/17 18:59 06:59 18:59 Intake Total 1900 941.333 540 Output Total 800 1600 Balance 1100 941.333 -1060 Weight (lbs) 147 lb 147 lb Intake: Intake, IV Amount 1300 941.333 Cefepime 0.5 gm In 50 Dextrose 5% 50 ml @ 100 mls/hr IV Q24H ED Rx#: [id number] D5-0.45NS 1,000 ml @ 20 941.333 mls/hr IV .Q24H ED Rx#: [id number] Dextrose 70% 700 ml Amino 1200 Acids 8.5% 500 ml @ 50 mls/hr IV .Q24H [facility] Rx#: [id number] ceFAZolin 1 gm In Sodium 50 Chloride 0.9% 50 ml @ 100 mls/hr IV X1 ONE Rx#: [id number] Tube Feeding 40 TPN/PPN 600 500 Output: Urine 800 1600 Other: # Bowel Movements 1 1 Active Medications: Current Medications Acetaminophen (Tylenol) 650 mg PO Q4H PRN PRN Reason: Pain Or Fever above 101 Stop: 08/20/17 19:40 Al Hydrox/Mg Hydrox/Simethicone (Maalox) 30 ml PO Q6H PRN PRN Reason: Dyspepsia Stop: 08/20/17 19:40 Albuterol Sulfate (Albuterol 2.5mg/3ml Neb Ud) 2.5 mg HHN Q2HRT PRN PRN Reason: Shortness of Breath or Wheeze Stop: 08/20/17 19:40 Last Admin: 07/11/17 05:23 Dose: 2.5 mg Albuterol/Ipratropium (Duoneb Neb) 3 ml HHN Q6HRT [facility] Stop: 08/30/17 18:59 Last Admin: 07/20/17 07:04 Dose: 3 ml Amlodipine Besylate (Norvasc) 10 mg PO DAILY [facility] Stop: 09/06/17 08:59 Last Admin: 07/20/17 08:27 Dose: 10 mg Diltiazem HCl (Cardizem) 20 mg IVP Q4H PRN PRN Reason: HR> 120 Stop: 09/04/17 17:55 Guaifenesin (Robitussin) 200 mg PO Q4HR PRN PRN Reason: Cough or Congestion Stop: 08/20/17 19:40 Haloperidol Decanoate (Haldol Dec) 25 mg IM QMONTH [facility] Stop: 08/23/17 09:59 Last Admin: 06/24/17 09:10 Dose: 25 mg Insulin Aspart (Novolog) 0 units SUBQ Q6HR ED PRN Reason: Protocol Stop: 09/03/17 00:00 Last Admin: 07/20/17 11:14 Dose: Not Given Ipratropium [place] (Atrovent Neb 0.5mg/2.5ml) 0.5 mg IH Q2HRT PRN PRN Reason: Shortness of Breath or Wheeze Stop: 08/20/17 19:40 Last Admin: 07/11/17 05:23 Dose: 0.5 mg Lactobacillus Rhamnosus (Culturelle 15b) 1 each PO DAILY [facility] Stop: 08/30/17 08:59 Last Admin: 07/20/17 08:27 Dose: 1 each Losartan Potassium (Cozaar) 100 mg PO DAILY [facility] Stop: 09/13/17 15:59 Last Admin: 07/20/17 08:26 Dose: 100 mg Mirtazapine (Remeron) 15 mg PO HS ED PRN Reason: Protocol Stop: 08/20/17 20:59 Last Admin: 07/19/17 21:25 Dose: 15 mg Miscellaneous (Probiotic Screen) 1 ea MC PRN PRN PRN Reason: PROTOCOL Stop: 08/29/17 11:59 Nitroglycerin (Nitrostat) 0.4 mg SL Q5MIN PRN PRN Reason: Chest Pain Stop: 08/20/17 19:40 Ondansetron HCl (Zofran Odt) 4 mg PO Q6H PRN PRN Reason: Nausea / Vomiting Stop: 09/04/17 13:12 Pantoprazole Sodium (Protonix) 40 mg PO BID [facility] Stop: 09/18/17 16:59 Sodium Phosphate (Fleet Enema) 135 ml RC PRN PRN PRN Reason: Constipation Stop: 09/10/17 09:36 Last Admin: 07/15/17 14:15 Dose: 135 ml General: weak, demented, thin, bilateral temporal wasting HEENT: NC/AT, PERRLA, thinning hair, other (ngt) Neck: Supple Lungs: rales, ronchi Cardiovascular: RRR, Normal S1, Normal S2, without murmur Abdomen: non-tender, distended Extremities: excoriation, contracture, deformity Neurological: lethargic, unsteady, bedbound - Procedures Procedures: Procedures Procedure Code Date EGD PLACE GASTROSTOMY TUBE 76024 06/21/17 INSERTION OF FEEDING DEVICE INTO STOMACH, PERC APPROACH [id number] 06/21/17 PARTIAL REMOVAL OF COLON 65731 06/21/17 RESECTION OF RIGHT LARGE INTESTINE, OPEN APPROACH [id number] 06/21/17 Internal Medicine Assmt/Plan - Assessment Assessment: acute dvt cecal mass s/p exploratory lap right right hemicolectomy severe anemia dm2 schizophrenia htn psychosis hypokalemia - Plan Plan: continue with nutritional support-tpn monitor h/h cardiology follow up monitor electrolytes follow up labs in am will follow franchise business consultant recommendations Nutritional Asmnt/Malnutr-PDOC - Dietary Evaluation Malnutrition Findings (Please click <Entered> for more info): Nutritional Asmnt/Malnutrition Start: 06/22/17 18: 04 Text: Status: Complete Freq: Document 06/22/17 18:04 GRISELDA (Rec: 06/22/17 18:15 LCHENG [email or web address]) Nutritional Asmnt/Malnutrition Patient General Information Nutritional Screening High Risk Consult Diagnosis left lower extremity DVT, severe anemia, CHF, HTN Pertinent Medical Hx/Surgical Hx DM, anemia, renal stones, schizophrenia Subjective Information Pt seen lying in bed, confused at time of visit. Spoke with LULÚ Seay, RN reported pt ate well, consumed 60% of breakfast this morning. Per notes, pt has EGD and colonoscopy scheduled tommorrow. Current Diet Order/ Nutrition Support pureed Pertinent Medications D5-0.9ns, novolog, remeron, kcl Pertinent Labs 06/21 Na 137, K 3.5, Cl 100, BUN 24, Cr 1.3, Glucose 186, AST 10, ALT 6, Alb 2.6 06/22 POC 383 Nutritional Hx/Data Height 5 ft Height (Calculated Centimeters) 152.4 Current Weight (lbs) 86 lb Weight (Calculated Kilograms) 39.0 Weight (Calculated Grams) 24676.9 [place] Body Weight 100 % [place] Body Weight 86 Body Mass Index (BMI) 16.7 Weight Status Underweight GI Symptoms GI Symptoms None Last BM none Difficult in: None Skin Integrity/Comment: intact Current %PO Fair (50-74%) Estimated Nutritional Goals Calories/Kcals/Kg 25-30 based on IBW 45kg Kcals Calculated 8337-6724 Protein g/k-1.2 Protein Calculated 45-54 Fluid: ml 1125-1350ml (1ml/kcal) Nutritional Problem 1. Problem Problem altered nutrition related lab values Etiology hx of DM Signs/Symptoms: Glucose 186, POC 383 Malnutrition Alert Protein-Calorie Malnutrition N/A Is there a minimum of two criteria No selected? Query Text:Check all the applicable criteria. A minimum of two criteria are recommended for diagnosis of either severe or non-severe malnutrition. Intervention/Recommendation Comments 1. Recommend CCHO, low sodium diet for optimal glycemic and BP control. RN notified. 2. Monitor PO intake, wt, labs and skin integrity 3. F/U as high risk in 2-3 days, 06/24-06/25 Expected Outcomes/Goals Expected Outcomes/Goals 1. PO intake to meet at least 75% of nutritional needs. 2. Wt stability, skin to remain intact, labs to improve
--- NOTE | 2017-07-20 15:26 | Discharge Summary ---
DATE OF DISCHARGE: 07/20/2017 DISCHARGE DIAGNOSES: Acute DVT, cecal mass status post exploratory lap, right hemicolectomy, severe anemia, type 2 diabetes, schizophrenia, hypertension, psychosis, hypokalemia. HISTORY OF PRESENT ILLNESS: This is a 76-year-old female who is well known to me from [facility] for bilateral lower extremity tender and redness. An ultrasound was done and it showed positive for DVT. PHYSICAL EXAMINATION: GENERAL: Elderly female, awake, confused, in no apparent distress. VITAL SIGNS: Stable. HEENT: Normocephalic, atraumatic. NECK: Supple. No mass. LUNGS: Clear bilaterally. HEART: Regular rate and rhythm. ABDOMEN: Soft, nontender. HOSPITAL COURSE: During the hospital stay, the patient was initially admitted to the ICU unit. GI consultation was obtained due to iron deficiency anemia. The patient had an EGD done and the impression was hiatal hernia, large cecal polyp versus mass, large ascending colon polyp versus mass. So, due to the following reasons, a surgical consult was obtained. The patient is status post exploratory laparotomy, right hemicolectomy. The patient's H and H were being monitored. The patient's abdomen was noted with distention. The patient was placed on TPN due to poor oral intake. Clinic Specialist was also on the case. Moving forward, the patient later then stabilized in to the ICU unit and was moved to the telemetry, but when the patient was in the ICU, the patient was kept on nitro drip due to having elevated blood pressure on top of having clonidine. The patient was closely being monitored by aws solution architect as well. Since the patient's blood pressure was more stable, the patient was transferred out to the telemetry unit. It was then decided that the patient had to get a PEG placement due to poor oral intake. The patient had a PEG placement done on 07/19/2017. The patient tolerated the procedure well and the patient was tolerating the feeding as well. The patient's laboratory results were being monitored. H and H was within normal limits. For this reason, the patient is stable for discharge CONDITION UPON DISCHARGE: Fair. DISPOSITION: [facility]. JOB# [id number]
[2017-07-20] MEDS ORDERED: Pantoprazole 40 mg EC Tab PO SCH (17:00)
--- NOTE | 2017-07-20 22:01 | GI Progress Note ---
Subjective - Review of Systems Service Date: 07/20/17 Subjective: DELAYED NOTE ENTRY. PATIENT SEEN AND EXAMINED AT 1400. EVENTS NOTED. ILENE GT FEEDS AT 20 ML/HR. Objective - Results Result Diagrams: 07/20/17 05:20 07/20/17 05:20 Recent Labs: Laboratory Last Values WBC 8.3 Th/cmm (4.8-10.8) 07/20/17 05:20 RBC 2.99 Mil/cmm (3.80-5.20) L 07/20/17 05:20 Hgb 8.5 gm/dL (12-16) L 07/20/17 05:20 Hct 25.3 % (41.0-60) L 07/20/17 05:20 MCV 84.8 fl (81-100) 07/20/17 05:20 MCH 28.3 pg (27.0-31.0) 07/20/17 05:20 MCHC Differential 33.4 pg (28.0-36.0) 07/20/17 05:20 RDW 16.2 % (11.5-20.0) 07/20/17 05:20 Plt Count 313 Th/cmm (150-400) 07/20/17 05:20 MPV 8.3 fl 07/20/17 05:20 Neutrophils % 65.9 % (40.0-80.0) 07/20/17 05:20 Band Neutrophils % 6 % (0-10) 07/15/17 04:15 Lymphocytes % 21.1 % (20.0-50.0) 07/20/17 05:20 Monocytes % 9.7 % (2.0-10.0) 07/20/17 05:20 Eosinophils % 2.7 % (0.0-5.0) 07/20/17 05:20 Basophils % 0.6 % (0.0-2.0) 07/20/17 05:20 Neutrophils (Manual) 65 % (40-80) 07/18/17 04:00 Lymphocytes 27 % (20-50) 07/18/17 04:00 Monocytes 4 % (2-10) 07/18/17 04:00 Eosinophils 4 % (0-5) 07/18/17 04:00 Hypochromia 1+ 07/04/17 04:30 Platelet Estimate ADEQUATE (NORMAL) 07/18/17 04:00 Polychromasia 1+ 07/04/17 04:30 Schistocytes 1+ 07/04/17 04:30 PT 10.5 SECONDS (9.5-11.5) 07/19/17 05:45 INR 1.01 (0.5-1.4) 07/19/17 05:45 PTT (Actin FS) 25.0 SECONDS (26.0-38.0) L 07/08/17 04:15 D-Dimer 3600 ng/mL (100-400) H 06/21/17 18:20 Specimen Source Arterial 06/28/17 10:55 Sample Site Right Radial 06/28/17 10:55 pH 7.44 (7.35-7.45) 06/28/17 10:55 pCO2 36.0 mmHg (35.0-45.0) 06/28/17 10:55 pO2 100.0 mmHg (80.0-100.0) 06/28/17 10:55 HCO3 25.4 mEq/L (20.0-26.0) 06/28/17 10:55 Base Excess 0.6 mEq/L (-3.0-3.0) 06/28/17 10:55 O2 Saturation 98.0 % (92.0-100.0) 06/28/17 10:55 Rashid Test Positive 06/28/17 10:55 Vent Rate N/A 06/28/17 10:55 Inspired O2 28 06/28/17 10:55 Tidal Volume N/A 06/28/17 10:55 PEEP N/A 06/28/17 10:55 Pressure (ins/psv/peep) N/A 06/28/17 10:55 Critical Value DM 06/28/17 10:55 Sodium 139 mEq/L (136-145) 07/20/17 05:20 Potassium 4.6 mEq/L (3.5-5.1) 07/20/17 05:20 Chloride 101 mEq/L (98-107) 07/20/17 05:20 Carbon Dioxide 32.8 mEq/L (21.0-31.0) H 07/20/17 05:20 Anion Gap 9.8 (7.0-16.0) 07/20/17 05:20 BUN 21 mg/dL (7-25) 07/20/17 05:20 Creatinine 1.1 mg/dL (0.6-1.2) 07/20/17 05:20 Est GFR ( Amer) TNP 07/20/17 05:20 Est GFR (Non-Af Amer) TNP 07/20/17 05:20 BUN/Creatinine Ratio 19.1 07/20/17 05:20 Glucose 164 mg/dL (70-105) H 07/20/17 05:20 POC Glucose 161 MG/DL (70 - 105) H 07/20/17 11:12 Hemoglobin A1c % 11.7 % (4.0-6.0) H 06/21/17 18:20 Calcium 8.4 mg/dL (8.6-10.3) L 07/20/17 05:20 Phosphorus 4.1 mg/dL (2.5-5.0) 07/20/17 05:20 Magnesium 2.1 mg/dL (1.9-2.7) 07/20/17 05:20 Iron 19 ug/dL (27-139) L 06/22/17 05:20 TIBC 176 ug/dL (250-450) L 06/22/17 05:20 Iron Saturation 11 % (15-55) L 06/22/17 05:20 Unsaturated IBC 157 ug/dL (118-369) 06/22/17 05:20 Ferritin 164 ng/mL (15-150) H 06/22/17 05:20 Total Bilirubin 0.3 mg/dL (0.3-1.0) 07/20/17 05:20 AST 12 U/L (13-39) L 07/20/17 05:20 ALT 7 U/L (7-52) 07/20/17 05:20 Alkaline Phosphatase 111 U/L (34-104) H 07/20/17 05:20 Ammonia 38 umol/L (16-53) 07/08/17 04:15 Creatine Kinase 39 U/L (30-223) 06/21/17 18:20 Troponin I 0.01 ng/mL (0.01-0.05) 06/21/17 18:20 B-Natriuretic Peptide 108.0 pg/mL (5.0-100.0) H 07/09/17 04:30 Total Protein 5.7 gm/dL (6.0-8.3) L 07/20/17 05:20 Albumin 1.8 gm/dL (3.7-5.3) L 07/20/17 05:20 Globulin 3.9 gm/dL 07/20/17 05:20 Albumin/Globulin Ratio 0.5 (1.0-1.8) L 07/20/17 05:20 Prealbumin 14 mg/dL (9-32) 07/15/17 04:15 Triglycerides 88 mg/dL (<150) 07/15/17 04:15 Cholesterol 94 mg/dL (<200) 07/15/17 04:15 LDL Cholesterol Direct 65 mg/dL (75-193) L 06/21/17 18:20 HDL Cholesterol 43 mg/dL (23-92) 06/21/17 18:20 Vitamin B12 1797 pg/mL (232-1245) H 07/02/17 03:41 Folic Acid 10.3 ng/mL (>3.0) 07/02/17 03:41 Helicobacter pylori Ab NEGATIVE (NEGATIVE) 07/09/17 14:54 Blood Type O POSITIVE 07/09/17 09:16 Antibody Screen NEGATIVE 07/09/17 09:16 Crossmatch See Detail 07/09/17 09:16 - Physical Exam Vitals and I&O: Vital Signs Temp 97.2 F 07/20/17 12:39 Pulse 84 07/20/17 13:55 Resp 19 07/20/17 13:55 BP 148/75 07/20/17 12:39 Pulse Ox 97 07/20/17 13:55 Intake & Output 07/20/17 07/20/17 07/21/17 06:59 18:59 06:59 Intake Total 941.333 540 Output Total 1600 Balance 941.333 -1060 Weight (lbs) 66.678 kg Intake: Intake, IV Amount 941.333 D5-0.45NS 1,000 ml @ 20 941.333 mls/hr IV .Q24H ED Rx#: [id number] Tube Feeding 40 TPN/PPN 500 Output: Urine 1600 Other: # Bowel Movements 1 General: No acute distress HEENT: Atraumatic Neck: Supple Cardiovascular: Regular rate Abdomen: Bowel sounds, Soft, Other (INTACT GT), no Tender, no Mass, no Guarding Extremities: Other (right arm picc) - Procedures Procedures: Procedures Procedure Code Date EGD PLACE GASTROSTOMY TUBE 21533 06/21/17 INSERTION OF FEEDING DEVICE INTO STOMACH, PERC APPROACH [id number] 06/21/17 PARTIAL REMOVAL OF COLON 61102 06/21/17 RESECTION OF RIGHT LARGE INTESTINE, OPEN APPROACH [id number] 06/21/17 Assessment/Plan - Assessment Assessment: Impression: # Anemia, stable # Cecal neoplasm s/p R hemicolectomy # Diverticulosis EGD on 06/23 showed mild gastritis. Colonoscopy revealed 3-4cm cecal lesion and 2cm ascending colon polyp. Cecal lesion endoscopically looked like villous adenoma, and ascending colon may be adenoma vs villous adenoma. 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 These lesions could very well be contributing to her chronic anemia, although certainly there is anemia of chronic disease Now s/p R hemicolectomy on 06/27. 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 Now recovering post op. s/p PEG insertion 07/19. Plan: - Repeat colo in 1 year - cont post op care and diet as tolerated. - advance tube feeds as tolerated; will stop TPN. - appreciate hematology recs - cont iron supplementation - trend hgb, stable
== END 2017-07-20 15:00 | disposition home or self-care (01) | DRG 231 ==
LOC: ER 17:42 → MSI 19:25 → ICU 06-27 09:31 → TELE 07-04 23:45 → ICU 07-06 18:29 → TELE 07-18 18:45
PROVIDERS: ADMIT Internal Medicine; ATTEND Internal Medicine
PROC: 0DB68ZX Excision of Stomach, Via Natural or Artificial Opening Endoscopic, Diagnostic (ICD-10-PCS; 2017-06-23)
PROC: 0DBK8ZX Excision of Ascending Colon, Via Natural or Artificial Opening Endoscopic, Diagnostic (ICD-10-PCS; 2017-06-23)
PROC: 0DBN8ZX Excision of Sigmoid Colon, Via Natural or Artificial Opening Endoscopic, Diagnostic (ICD-10-PCS; 2017-06-23)
PROC: 0DBH8ZX Excision of Cecum, Via Natural or Artificial Opening Endoscopic, Diagnostic (ICD-10-PCS; 2017-06-23)
PROC: 30233N1 Transfusion of Nonautologous Red Blood Cells into Peripheral Vein, Percutaneous Approach (ICD-10-PCS; 2017-06-26)
PROC: 0DTF0ZZ Resection of Right Large Intestine, Open Approach (ICD-10-PCS; principal; 2017-06-27)
PROC: 5A1935Z Respiratory Ventilation, Less than 24 Consecutive Hours (ICD-10-PCS; 2017-06-27)
PROC: 02HV33Z Insertion of Infusion Device into Superior Vena Cava, Percutaneous Approach (ICD-10-PCS; 2017-07-08)
PROC: 0DB68ZX Excision of Stomach, Via Natural or Artificial Opening Endoscopic, Diagnostic (ICD-10-PCS; 2017-07-09)
PROC: 3E0436Z Introduction of Nutritional Substance into Central Vein, Percutaneous Approach (ICD-10-PCS; 2017-07-09)
PROC: 0DH63UZ Insertion of Feeding Device into Stomach, Percutaneous Approach (ICD-10-PCS; 2017-07-19)
DX: C18.0 Malignant neoplasm of cecum (principal); E43 Unspecified severe protein-calorie malnutrition; G93.40 Encephalopathy, unspecified; K22.6 Gastro-esophageal laceration-hemorrhage syndrome; I82.412 Acute embolism and thrombosis of left femoral vein; K25.4 Chronic or unspecified gastric ulcer with hemorrhage; I50.9 Heart failure, unspecified; I13.0 Hypertensive heart and chronic kidney disease with heart failure and stage 1 through stage 4 chronic kidney disease, or unspecified chronic kidney disease; E11.22 Type 2 diabetes mellitus with diabetic chronic kidney disease; K64.8 Other hemorrhoids; R13.10 Dysphagia, unspecified; R62.7 Adult failure to thrive; K29.71 Gastritis, unspecified, with bleeding; K57.31 Diverticulosis of large intestine without perforation or abscess with bleeding; I47.1 Supraventricular tachycardia; D12.0 Benign neoplasm of cecum; D63.1 Anemia in chronic kidney disease; F20.9 Schizophrenia, unspecified; E87.6 Hypokalemia; F29 Unspecified psychosis not due to a substance or known physiological condition; K44.9 Diaphragmatic hernia without obstruction or gangrene; F03.90 Unspecified dementia, unspecified severity, without behavioral disturbance, psychotic disturbance, mood disturbance, and anxiety; N18.9 Chronic kidney disease, unspecified; I82.432 Acute embolism and thrombosis of left popliteal vein; K63.5 Polyp of colon; D12.2 Benign neoplasm of ascending colon; D50.9 Iron deficiency anemia, unspecified; Z68.28 Body mass index [BMI] 28.0-28.9, adult; Z83.3 Family history of diabetes mellitus; Z82.49 Family history of ischemic heart disease and other diseases of the circulatory system
CPT/HCPCS: 36415-UA; 36600-90; 70450-TC; 71045-TC; 74000-TC; 80048-TC; 80053-TC; 80061-TC; 82140-TC; 82465-TC; 82550-TC; 82607-90; 82728-90; 82746-90; 82803-TC; 82948-90; 83036-90; 83540-90; 83550-90; 83735-TC; 83880-TC; 84100-TC; 84134-90; 84478-TC; 84484-TC; 85007-TC; 85025-TC; 85027-TC; 85379-TC; 85610-TC; 85730-TC; 86850-TC; 86900-TC; 86901-TC; 86922-TC; 87070; 87338-TC; 88305-90; 88307-TC; 90779; 90799; 93005; 93970-TC-50; 94002; 94003; 94640; 94760; 96372; A4217; C9113; J0360; J0690; J0692; J1631; J1644; J1650; J1750; J1815; J2001; J2270; J2405; J2543; J2704; J2710; J3010; J3475; J3480; J7040; J7042; J7613; P9016; X3401; X6258; X6598; X7704; Z7506; Z7610

== ENCOUNTER 2017-08-09 18:00 | Inpatient (IN) | payer MEDICAID ==
--- NOTE | 2017-08-09 18:14 | ED Physician Chart ---
ED Chief Complaint/HPI - Patient Information Date Seen:: 08/09/17 Time Seen:: 18:00 Chief Complaint:: ALOC History of Present Illness:: onset x one day of ALOC, AMS, and decreased activity with reported elevated blood sugar of 597 at her snf; no report of trauma, H/As, S/T, neck pain, C/P, SOB, cough, Abd. Pain, A/N/V/D/C, fever, chills, or urinary s/s Allergies:: Allergies Allergy/AdvReac Type Severity Reaction Status Date / Time No Known Allergies Allergy Verified 06/21/17 17:43 Historian:: EMS Review:: Nurse's Note Reviewed, Old Chart Reviewed, EMS run form Reviewed ED Review of Systems - Review of Systems General/Constitutional: No fever, No chills, No weight loss, No weakness, No diaphoresis, No edema, No loss of appetite Skin: No skin lesions, No rash, No bruising Head: No headache, No light-headedness Eyes: No loss of vision, No pain, No diplopia ENT: No earache, No nasal drainage, No sore throat, No tinnitus Neck: No neck pain, No swelling, No thyromegaly, No stiffness, No mass noted Cardio Vascular: No chest pain, No palpitations, No PND, No orthopnea, No edema Pulmonary: No SOB, No cough, No sputum, No wheezing GI: No nausea, No vomiting, No diarrhea, No pain, No melena, No hematochezia, No constipation, No hematemesis G/U: No dysuria, No frequency, No hematuria, No nacturia 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 vaginal discharge, No abnormal vaginal bleed, No contraction Musculoskeletal: No bone or joint pain, No back pain, No muscle pain Endocrine: No polyuria, No polydipsia Psychiatric: No prior psych history, No depression, No anxiety, No suicidal ideation, No homicidal ideation, No auditory hallucination, No visual hallucination Hematopoietic: No bruising, No lymphadenopathy Allergic/Immuno: No urticaria, No angioedema Neurological: No syncope, No focal symptoms, Weakness, No paresthesia, No headache, No seizure, No dizziness, Confusion, No vertigo ED Past Medical History - Past Medical History Obtainable: Yes Past Medical History: HTN, DM, CAD, Dyslipidemia, ESRD, Dementia Family History: Diabetes Melitus, HTN Social History: Non Smoker, No Alcohol, No Drug Use, Single, Care Facility Surgical History: None Psychiatricy History: Dementia Medication: Reviewed Family Medical History - Family Member Mother History Unknown: Yes ED Physical Exam - Physical Examination General/Constitutional: Awake, Well-developed, well-nourished, Alert, No distress, GCS 15, Non-toxic appearing, Ambulatory Head: Atraumatic Eyes: Lids, conjuctiva normal, PERRL, EOMI Skin: Nl inspection, No rash, No skin lesions, No ecchymosis, Well hydrated, No lymphadenopathy ENMT: External ears, nose nl, TM canals nl, Nasal exam nl, Lips, teeth, gums nl , Oropharynx nl, Tonsils nl Neck: Nontender, Full ROM w/o pain, No JVD, No nuchal rigidity, No bruit, No mass, No stridor Respiratory: Nl effort/Exclusion, Clear to Auscultation, No Wheeze/Rhonchi/Rales Cardio Vascular: RRR, No murmur, gallop, rubs, NL S1 S2, Carotid/Femoral/Distal pulses equal bilaterally GI: No tenderness/rebounding/guarding, No organomegaly, No hernia, Normal BS's, Nondistended, No mass/bruits, No McBurney tenderness : No CVA tenderness Extremities: No tenderness or effusion, Full ROM, normal strength in all extremities, No edema, Normal digits & nails Neuro/Psych: Alert/oriented, DTR's symmetric, Normal sensory exam, Normal motor strength, Judgement/insight normal, Mood normal, Normal gait, No focal deficits Other Neuro/Psych comments:: Disoriented and Confused Misc: Normal back, No paraspinal tenderness ED Labs/Radiology/EKG Results - Lab Results Comments:: WBC: 16.8; K+: 3.3; Glucose: 480; + Anemia; Elevated BUN and Cr - Radiology Results Comments:: CM; NAD ED Septic Shock - . Is Septic Shock (SBP<90, OR Lactate>4 mmol\L) present?: No
[2017-08-09 18:30] LABS: % BASOPHILS 0.4 % (0.0-2.0); % EOSINOPHILS 0.3 % (0.0-5.0); % LYMPHOCYTES 16.6 % (20.0-50.0); % MONOCYTES 4.6 % (2.0-10.0); % NEUTROPHILS 78.1 % (40.0-80.0); BASOPHILE ABSOLUTE 0.1 Th/cumm (0-0.2); EOSINOPHILE ABSOLUTE 0.1 Th/cmm (0.1-0.4); HEMATOCRIT 23.6 % (41.0-60); LYMPHOCYTE ABSOLUTE 2.8 Th/cmm (1.5-3.0); MEAN CELL VOLUME 85.8 fl (81-100); MEAN CORPUSCULAR HEMOGLOBIN 27.6 pg (27.0-31.0); MEAN CORPUSCULAR HGB CONC 32.1 pg (28.0-36.0); MEAN PLATELET VOLUME 11.2 fl; MONOCYTE ABSOLUTE 0.8 Th/cmm (0.3-1.0); PLATELET COUNT 238 Th/cmm (150-400); RED BLOOD COUNT 2.74 Mil/cmm (3.80-5.20); RED CELL DISTRIBUTION WIDTH 15.7 % (11.5-20.0)
[2017-08-09 18:45] LABS: HEMOGLOBIN 7.6 gm/dL (12-16); WHITE BLOOD COUNT 16.8 Th/cmm (4.8-10.8)
[2017-08-09 18:47] LABS: ALB/GLOB RATIO 0.7 (1.0-1.8); ALBUMIN 2.9 gm/dL (3.7-5.3); ALKALINE PHOSPHATASE 44 U/L (34-104); ANION GAP 10.2 (7.0-16.0); BILIRUBIN,TOTAL 0.3 mg/dL (0.3-1.0); CALCIUM SERUM 9.7 mg/dL (8.6-10.3); CHLORIDE 111 mEq/L (98-107); CHOLESTEROL 129 mg/dL (<200); CREATININE - SERUM 3.1 mg/dL (0.6-1.2); CREATININE KINASE 86 U/L (30-223); HDL -HIGH DENSITY LIPOPROTEIN 24 mg/dL (23-92); POTASSIUM SERUM 3.3 mEq/L (3.5-5.1); SGOT 12 U/L (13-39); SGPT/ALT 8 U/L (7-52); TOTAL PROTEIN,SERUM 7.3 gm/dL (6.0-8.3); TRIGLYCERIDES 243 mg/dL (<150)
[2017-08-09 18:54] LABS: CARBON DIOXIDE 41.1 mEq/L (21.0-31.0); GLUCOSE 480 mg/dL (70-105); SODIUM SERUM 159 mEq/L (136-145)
[2017-08-09 18:55] LABS: BUN - UREA NITROGEN 137 mg/dL (7-25)
[2017-08-09] MEDS ORDERED: Sodium Chloride 0.9% 1,000 ML IV ONE (19:08)
[2017-08-09] MEDS ORDERED: INSULIN HUMAN REGULAR 100 UNITS/ML UNIT IV ONE (19:09)
[2017-08-09] MEDS ORDERED: Potassium Chloride 20 mEq ER Tab PO ONE (19:09)
[2017-08-09] MEDS ORDERED: Potassium Chloride Elixir 20 mEq /15 mL UDC GT ONE (19:11)
[2017-08-09] MEDS ORDERED: Potassium Chloride Elixir 20 mEq /15 mL UDC ONE (19:16)
[2017-08-09] MEDS ORDERED: INSULIN HUMAN REGULAR 100 UNITS/ML UNIT ONE (19:18)
[2017-08-09 19:47] LABS: INR 1.01 (0.5-1.4); PROTHROMBIN TIME (TEST) 10.5 SECONDS (9.5-11.5)
[2017-08-09 19:58] LABS: URINE MICROSCOPIC INDICATED? YES; URINE SOURCE FOLEY PORT
[2017-08-09 20:03] LABS: URINE BILIRUBIN NEGATIVE (NEGATIVE); URINE BLOOD TRACE (NEGATIVE); URINE GLUCOSE (UA) 500 mg/dL (NEGATIVE); URINE KETONE NEGATIVE (NEGATIVE); URINE LEUKOCYTE ESTERASE NEGATIVE (NEGATIVE); URINE NITRATE NEGATIVE (NEGATIVE); URINE PROTEIN 100 mg/dL (NEGATIVE); URINE UROBILINOGEN 0.2 E.U./dL (0.2 - 1.0)
[2017-08-09 20:06] LABS: URINE CLARITY CLEAR (CLEAR); URINE COLOR YELLOW
[2017-08-09 20:07] LABS: URINE BACTERIA NONE SEEN /hpf (NONE SEEN); URINE EPITHELIAL CELLS NONE SEEN /lpf (FEW); URINE WBC NONE SEEN /hpf (0-5)
[2017-08-09] MEDS ORDERED: Maalox 30 mL Cup GT PRN (20:12)
[2017-08-09] MEDS ORDERED: Albuterol/Ipratropium Neb 3 ML AERS HHN PRN (20:12)
[2017-08-09] MEDS ORDERED: Albuterol Nebulizer 2.5mg/3mL HHN PRN (20:14)
[2017-08-09] MEDS ORDERED: Ipratropium Neb 0.5 mg/2.5 mL UD IH PRN (20:14)
[2017-08-09] MEDS ORDERED: guaiFENesin 200 MG/10 ML UDC PO PRN (20:15)
[2017-08-09] MEDS ORDERED: GLUCAGON HCl 1 MG KIT IM PRN (21:00)
[2017-08-09 22:54] VITALS: BP 151/70
[2017-08-09] MEDS: Sodium Chloride 0.45% 1,000 ML IV SCH (23:10)
[2017-08-09] MEDS: INSULIN ASPART, RECOMBINANT 100 UNITS/ML SUBQ SCH (23:25)
[2017-08-09] MEDS: Insulin Detemir 100 units/mL 10mL Vial SUBQ SCH (23:26)
[2017-08-09] MEDS: cefTRIAXone 1 GM in Sodium Chloride 0.9% 50 ML IV SCH (23:37)
[2017-08-10 06:11] LABS: % BASOPHILS 0.4 % (0.0-2.0); % EOSINOPHILS 0.9 % (0.0-5.0); % LYMPHOCYTES 20.4 % (20.0-50.0); % MONOCYTES 6.3 % (2.0-10.0); BASOPHILE ABSOLUTE 0.1 Th/cumm (0-0.2); EOSINOPHILE ABSOLUTE 0.1 Th/cmm (0.1-0.4); HEMATOCRIT 22.2 % (41.0-60); LYMPHOCYTE ABSOLUTE 2.9 Th/cmm (1.5-3.0); MEAN CORPUSCULAR HGB CONC 32.6 pg (28.0-36.0); MEAN PLATELET VOLUME 11.4 fl; MONOCYTE ABSOLUTE 0.9 Th/cmm (0.3-1.0); PLATELET COUNT 218 Th/cmm (150-400); RED BLOOD COUNT 2.58 Mil/cmm (3.80-5.20)
[2017-08-10 06:27] LABS: INR 0.96 (0.5-1.4)
[2017-08-10 06:33] LABS: ALB/GLOB RATIO 0.7 (1.0-1.8); ALBUMIN 2.7 gm/dL (3.7-5.3); ALKALINE PHOSPHATASE 49 U/L (34-104); ANION GAP 8.5 (7.0-16.0); BILIRUBIN,TOTAL 0.2 mg/dL (0.3-1.0); CALCIUM SERUM 9.5 mg/dL (8.6-10.3); CHLORIDE 115 mEq/L (98-107); CREATININE - SERUM 2.9 mg/dL (0.6-1.2); POTASSIUM SERUM 3.7 mEq/L (3.5-5.1); SGOT 12 U/L (13-39); SGPT/ALT 7 U/L (7-52); TOTAL PROTEIN,SERUM 6.6 gm/dL (6.0-8.3)
[2017-08-10 06:37] LABS: HEMOGLOBIN 7.2 gm/dL (12-16)
[2017-08-10 06:50] LABS: CARBON DIOXIDE 40.2 mEq/L (21.0-31.0); SODIUM SERUM 160 mEq/L (136-145)
[2017-08-10 06:51] LABS: BUN - UREA NITROGEN 135 mg/dL (7-25); GLUCOSE 265 mg/dL (70-105)
[2017-08-10] MEDS: INSULIN ASPART, RECOMBINANT 100 UNITS/ML SUBQ SCH ×4 (07:41→20:12)
--- NOTE | 2017-08-10 07:55 | Diagnostic Imaging Report ---
Exam: Chest x-ray HISTORY: Chest pain Findings: Frontal examination of the chest reviewed compared to prior study of 07/08/2017 demonstrates no active pulmonic infiltrates or effusions. Mediastinal structures midline the heart is not enlarged. The thorax is intact. IMPRESSION: No acute disease.
--- NOTE | 2017-08-10 08:06 | Diagnostic Imaging Report ---
Exam: CT examination of brain. HISTORY: ALOC Total DLP equals 710 CTDI equals 37.4 Findings: Multiple contiguous thin section of brain obtained from the base of skull to the vertex without the demonstration contrast material no prior studies available comparison. The study demonstrates atrophy with. She ischemic white matter changes bilaterally. There is no evidence for hemorrhage midline shift or edema. The cerebellum is intact. The bony calvarium is normal. There is evidence for sinusitis. Opacification left mastoid cells appreciated. Vascular calcification of the vertebral arteries appreciated. IMPRESSION : Atrophy. Periventricular ischemic white matter changes of long-standing etiology.
[2017-08-10] MEDS ORDERED: PROSTAT SUGAR FREE GT SCH (09:00)
--- NOTE | 2017-08-10 10:05 | Internal Medicine Prog Note ---
Internal Medicine Subjective - Subjective Service Date: 08/10/17 ([facility] [id number]) Internal Medicine Objective - Results Result Diagrams: 08/10/17 05:50 08/10/17 05:50 Recent Labs: Laboratory Last Values WBC 14.0 Th/cmm (4.8-10.8) H 08/10/17 05:50 RBC 2.58 Mil/cmm (3.80-5.20) L 08/10/17 05:50 Hgb 7.2 gm/dL (12-16) L* 08/10/17 05:50 Hct 22.2 % (41.0-60) L 08/10/17 05:50 MCV 86.0 fl (81-100) 08/10/17 05:50 MCH 28.0 pg (27.0-31.0) 08/10/17 05:50 MCHC Differential 32.6 pg (28.0-36.0) 08/10/17 05:50 RDW 16.0 % (11.5-20.0) 08/10/17 05:50 Plt Count 218 Th/cmm (150-400) 08/10/17 05:50 MPV 11.4 fl 08/10/17 05:50 Neutrophils % 72.0 % (40.0-80.0) 08/10/17 05:50 Lymphocytes % 20.4 % (20.0-50.0) 08/10/17 05:50 Monocytes % 6.3 % (2.0-10.0) 08/10/17 05:50 Eosinophils % 0.9 % (0.0-5.0) 08/10/17 05:50 Basophils % 0.4 % (0.0-2.0) 08/10/17 05:50 PT 10.0 SECONDS (9.5-11.5) 08/10/17 05:50 INR 0.96 (0.5-1.4) 08/10/17 05:50 PTT (Actin FS) 18.3 SECONDS (26.0-38.0) L 08/10/17 05:50 Sodium 160 mEq/L (136-145) H* 08/10/17 05:50 Potassium 3.7 mEq/L (3.5-5.1) 08/10/17 05:50 Chloride 115 mEq/L (98-107) H 08/10/17 05:50 Carbon Dioxide 40.2 mEq/L (21.0-31.0) H 08/10/17 05:50 Anion Gap 8.5 (7.0-16.0) 08/10/17 05:50 BUN 135 mg/dL (7-25) H* 08/10/17 05:50 Creatinine 2.9 mg/dL (0.6-1.2) H 08/10/17 05:50 Est GFR ( Amer) TNP 08/10/17 05:50 Est GFR (Non-Af Amer) TNP 08/10/17 05:50 BUN/Creatinine Ratio 46.6 08/10/17 05:50 Glucose 265 mg/dL (70-105) H D 08/10/17 05:50 POC Glucose 225 MG/DL (70 - 105) H 08/10/17 05:50 Whole Bld Lactic Acid 1.89 mmol/L (0.60-1.99) 08/09/17 18:46 Calcium 9.5 mg/dL (8.6-10.3) 08/10/17 05:50 Total Bilirubin 0.2 mg/dL (0.3-1.0) L 08/10/17 05:50 AST 12 U/L (13-39) L 08/10/17 05:50 ALT 7 U/L (7-52) 08/10/17 05:50 Alkaline Phosphatase 49 U/L (34-104) 08/10/17 05:50 Ammonia 38 umol/L (16-53) 08/10/17 05:50 Creatine Kinase 86 U/L (30-223) 08/09/17 18:20 Troponin I 0.12 ng/mL (0.01-0.05) H* D 08/09/17 18:20 B-Natriuretic Peptide 141.0 pg/mL (5.0-100.0) H 08/09/17 18:20 Total Protein 6.6 gm/dL (6.0-8.3) 08/10/17 05:50 Albumin 2.7 gm/dL (3.7-5.3) L 08/10/17 05:50 Globulin 3.9 gm/dL 08/10/17 05:50 Albumin/Globulin Ratio 0.7 (1.0-1.8) L 08/10/17 05:50 Triglycerides 243 mg/dL (<150) H 08/09/17 18:20 Cholesterol 129 mg/dL (<200) 08/09/17 18:20 LDL Cholesterol Direct 56 mg/dL (75-193) L 08/09/17 18:20 HDL Cholesterol 24 mg/dL (23-92) 08/09/17 18:20 TSH 1.46 uIU/ml (0.34-5.60) 08/10/17 05:50 Urine Source [place] 08/09/17 18:25 Urine Color YELLOW 08/09/17 18:25 Urine Clarity CLEAR (CLEAR) 08/09/17 18:25 Urine pH 6.0 (4.6 - 8.0) 08/09/17 18:25 Ur Specific [place] 1.010 (1.005-1.030) 08/09/17 18:25 Urine Protein 100 mg/dL (NEGATIVE) H 08/09/17 18:25 Urine Glucose (UA) 500 mg/dL (NEGATIVE) H 08/09/17 18:25 Urine Ketones NEGATIVE mg/dL (NEGATIVE) 08/09/17 18:25 Urine Blood TRACE (NEGATIVE) 08/09/17 18:25 Urine Nitrate NEGATIVE (NEGATIVE) 08/09/17 18:25 Urine Bilirubin NEGATIVE (NEGATIVE) 08/09/17 18:25 Urine Urobilinogen 0.2 E.U./dL (0.2 - 1.0) 08/09/17 18:25 Ur Leukocyte Esterase NEGATIVE (NEGATIVE) 08/09/17 18:25 Urine RBC 2-5 /hpf (0-5) 08/09/17 18:25 Urine WBC NONE SEEN /hpf (0-5) 08/09/17 18:25 Ur Epithelial Cells NONE SEEN /lpf (FEW) 08/09/17 18:25 Urine Bacteria NONE SEEN /hpf (NONE SEEN) 08/09/17 18:25 - Physical Exam Vitals and I&O: Vital Signs Temp 96.6 F 08/10/17 09:34 Pulse 72 08/10/17 09:34 Resp 17 08/10/17 09:34 BP 105/66 08/10/17 09:34 Pulse Ox 100 08/10/17 09:34 Intake & Output 08/09/17 08/10/17 08/10/17 18:59 06:59 18:59 Intake Total 279 Output Total 50 Balance 229 Weight (lbs) 102 lb 8 oz Intake: Tube Feeding 279 Output: Urine 50 Active Medications: Current Medications Acetaminophen (Tylenol 650mg/20.3ml Suspension) 640 mg GT Q4H PRN PRN Reason: Temp > 100.5 Stop: 10/08/17 20:49 Al Hydrox/Mg Hydrox/Simethicone (Maalox) 30 ml GT Q6H PRN PRN Reason: GI UPSET Stop: 10/08/17 20:11 Albuterol Sulfate (Albuterol 2.5mg/3ml Neb Ud) 2.5 mg HHN Q2HRT PRN PRN Reason: Shortness of Breath or Wheeze Stop: 10/08/17 20:13 Albuterol/Ipratropium (Duoneb Neb) 3 ml HHN Q4H PRN PRN Reason: Shortness of Breath Stop: 10/08/17 20:11 Amlodipine Besylate (Norvasc) 10 mg GT DAILY [facility] Stop: 10/09/17 08:59 Last Admin: 08/10/17 09:06 Dose: 10 mg Glucagon (Glucagen) 1 mg IM PRN PRN PRN Reason: HYPOGLYCEMIA Stop: 10/08/17 20:59 Guaifenesin (Robitussin) 200 mg PO Q4HR PRN PRN Reason: Cough or Congestion Stop: 10/08/17 20:14 Haloperidol Decanoate (Haldol Dec) 25 mg IM [id number] ED Stop: 10/08/17 20:59 Hydrocortisone (Hydrocortisone 1%) 1 appl TP BID ED Stop: 10/09/17 08:59 Ceftriaxone Sodium 1 gm/ (Sodium Chloride) 50 mls @ 100 mls/hr IV Q24HR ED Stop: 10/08/17 21:59 Last Admin: 08/09/17 23:37 Dose: 100 mls/hr Sodium Chloride (Nacl 0.45%) 1,000 mls @ 100 mls/hr IV .Q10H ED Stop: 10/08/17 20:14 Last Admin: 08/09/17 23:10 Dose: 100 mls/hr Insulin Aspart (Novolog) 0 units SUBQ ACHS ED PRN Reason: Protocol Stop: 10/08/17 20:59 Last Admin: 08/10/17 07:41 Dose: 2 units Insulin Detemir (Levemir Insulin) 10 units SUBQ HS ED PRN Reason: Protocol Stop: 10/08/17 20:59 Last Admin: 08/09/17 23:26 Dose: 10 units Ipratropium Frannie (Atrovent Neb 0.5mg/2.5ml) 0.5 mg IH Q2HRT PRN PRN Reason: Shortness of Breath or Wheeze Stop: 10/08/17 20:13 Ketoconazole (Nizoral 2% Cream) 1 appl TP DAILY [facility] Stop: 10/09/17 08:59 Miscellaneous (Prostat Sugar Free) 30 ml GT BID ED Stop: 10/09/17 08:59 Nitroglycerin (Nitrostat) 0.4 mg SL Q5MIN PRN PRN Reason: Chest Pain Stop: 10/08/17 20:14 Ondansetron HCl (Zofran Odt) 4 mg PO Q6H PRN PRN Reason: Nausea / Vomiting Stop: 10/08/17 20:59 Ondansetron HCl (Zofran) 4 mg IV Q8H PRN PRN Reason: Nausea / Vomiting Stop: 10/08/17 20:14 Pantoprazole Sodium (Protonix) 40 mg GT 1200 ED Stop: 10/09/17 11:59 - Procedures Procedures: Procedures Procedure Code Date EGD PLACE GASTROSTOMY TUBE 58845 06/21/17 EXCISION OF ASCENDING COLON, ENDO, DIAGN [id number] 06/21/17 EXCISION OF CECUM, ENDO, DIAGN [id number] 06/21/17 EXCISION OF SIGMOID COLON, ENDO, DIAGN [id number] 06/21/17 EXCISION OF STOMACH, ENDO, DIAGN 6LL33ML 06/21/17 INSERTION OF FEEDING DEVICE INTO STOMACH, PERC APPROACH [id number] 06/21/17 INSERTION OF INFUSION DEV INTO SUP VENA CAVA, PERC APPROACH 14SW61X 06/21/17 INTRODUCTION OF NUTRITIONAL INTO CENTRAL VEIN, PERC APPROACH 3D0127C 06/21/17 PARTIAL REMOVAL OF COLON 29326 06/21/17 RESECTION OF RIGHT LARGE INTESTINE, OPEN APPROACH [id number] 06/21/17 RESPIRATORY VENTILATION, LESS THAN 24 CONSECUTIVE HOURS [id number] 06/21/17 TRANSFUSE NONAUT RED BLOOD CELLS IN PERIPH VEIN, PERC [id number] 06/21/17
--- NOTE | 2017-08-10 11:19 | History & Physical ---
ADMIT DATE: 08/10/2017 CHIEF COMPLAINT: Elevated glucose level. HISTORY OF PRESENT ILLNESS: This is a 76-year-old -[place] female who is sent here to [facility] due to elevated blood sugar of 597. The patient did not have any fevers at the [facility] for further management. The patient is now admitted to the telemetry unit. PAST MEDICAL HISTORY: Type 2 diabetes, anemia, renal stones. PAST SURGICAL HISTORY: PEG. ALLERGIES: No drug allergies. SOCIAL HISTORY: The patient is a prison resident, requiring 24-hour nursing care. MEDICATIONS: Omeprazole, Remeron, Nizoral cream, hydrocortisone cream, hydrocodone, haloperidol, clonidine, hydrogel, aspirin, Norvasc. ALLERGIES: No drug allergies. REVIEW OF SYSTEMS: Unable to obtain due to patient's mental status. PHYSICAL EXAMINATION: GENERAL: This is an elderly female, awake, alert, not really verbal, no apparent distress. VITAL SIGNS: Temperature 96.6, heart rate 72, blood pressure 105/66, respirations 17, O2 100%. HEENT: Head normocephalic, atraumatic. NECK: Supple. No mass. LUNGS: Clear bilaterally. CARDIOVASCULAR: Regular rate and rhythm. ABDOMEN: Soft, nontender. LABORATORY DATA: WBC 14.0, H and H 7.2 and 22.2, platelet of 218. Sodium 160, potassium 3.7, chloride 115, carbon dioxide 40.2, BUN 135, creatinine 2.9. DIAGNOSTIC STUDIES: The patient had a CT of the head done and the impression is atrophy, periventricular ischemic white matter changes of longstanding etiology. Chest x-ray was also obtained and the impression is no acute disease. ASSESSMENT: Uncontrolled diabetes, severe anemia, history of DVT, schizophrenia, hypertension, psychosis, hypokalemia, acute renal insufficiency, leukocytosis, hypernatremia, elevated troponin level, moderate protein calorie malnutrition. PLAN: The patient to be admitted to the telemetry unit. I will get GI on the case for possible GI bleed. Transfuse the patient 2 units of PRBCs. We will collect stool for occult blood. We will get renal ultrasound, do aggressive IV fluids for hydration. Monitor patient's glucose level. We will replace the patient's potassium as needed. Monitor patient's electrolyte levels. We will continue the patient on PPIs. We will continue to monitor this patient. [facility]# [id number]
[2017-08-10] MEDS: Pantoprazole 40 mg/Packet GT SCH (11:22)
[2017-08-10] MEDS: Sodium Chloride 0.45% 1,000 ML IV SCH (11:31)
--- NOTE | 2017-08-10 12:56 | Diagnostic Imaging Report ---
Renal ultrasound HISTORY: Acute renal failure. COMPARISON: None Technique: Sonography of the kidneys and urinary bladder was performed in multiple planes. FINDINGS: The right kidney measures 9.4 x 4.9 cm. The left kidney measures 9.7 x 4.7 cm. The renal margins are not well-defined, however, no gross focal lesions or evidence of hydronephrosis. The urinary bladder is suboptimally distended containing Perez catheter, limiting its evaluation. The urinary bladder wall measures 5 mm. IMPRESSION: Limited exam due to body habitus. No evidence of hydronephrosis. Perez catheter within nondistended urinary bladder. Mild generalized prominence of the urinary bladder wall. Inflammatory process cannot be excluded.
[2017-08-10 16:11] LABS: ABSOLUTE RETICULOCYTE 20.6 Th/cmm; CORRECTED RETICULOCYTE COUNT 0.4 % (0.5-1.5); HEMATOCRIT 22.2 % (37.0-47.0); RBC RETICULOCYTE COUNT 2.58 Mil/cmm; RETICULOCYTES % COUNTED 0.8 % (0.5-1.5)
[2017-08-10 19:52] LABS: A1C % 6.6 % (4.0-6.0)
[2017-08-10] MEDS: Insulin Detemir 100 units/mL 10mL Vial SUBQ SCH (20:13)
[2017-08-10] MEDS: cefTRIAXone 1 GM in Sodium Chloride 0.9% 50 ML IV SCH (21:24)
[2017-08-11] MEDS: INSULIN ASPART, RECOMBINANT 100 UNITS/ML SUBQ SCH ×4 (06:31→21:17)
[2017-08-11 07:57] LABS: % BASOPHILS 0.2 % (0.0-2.0); % LYMPHOCYTES 13.3 % (20.0-50.0); % MONOCYTES 4.9 % (2.0-10.0); % NEUTROPHILS 80.6 % (40.0-80.0); EOSINOPHILE ABSOLUTE 0.1 Th/cmm (0.1-0.4); HEMOGLOBIN 11.5 gm/dL (12-16); LYMPHOCYTE ABSOLUTE 1.7 Th/cmm (1.5-3.0); MEAN CELL VOLUME 85.4 fl (81-100); MEAN CORPUSCULAR HEMOGLOBIN 27.3 pg (27.0-31.0); MEAN PLATELET VOLUME 11.9 fl; MONOCYTE ABSOLUTE 0.6 Th/cmm (0.3-1.0); NEUTROPHILE ABSOLUTE 10.4 Th/cmm (1.8-8.0); PLATELET COUNT 216 Th/cmm (150-400); RED BLOOD COUNT 4.21 Mil/cmm (3.80-5.20); RED CELL DISTRIBUTION WIDTH 15.9 % (11.5-20.0)
[2017-08-11 08:05] LABS: WHITE BLOOD COUNT 12.8 Th/cmm (4.8-10.8)
[2017-08-11 08:52] LABS: ANION GAP 12.9 (7.0-16.0); CALCIUM SERUM 9.7 mg/dL (8.6-10.3); CARBON DIOXIDE 35.7 mEq/L (21.0-31.0); CHLORIDE 118 mEq/L (98-107); CREATININE - SERUM 2.3 mg/dL (0.6-1.2); GLUCOSE 122 mg/dL (70-105); MAGNESIUM 2.9 mg/dL (1.9-2.7); POTASSIUM SERUM 3.6 mEq/L (3.5-5.1)
[2017-08-11 09:18] LABS: SODIUM SERUM 163 mEq/L (136-145)
[2017-08-11 09:19] LABS: BUN - UREA NITROGEN 112 mg/dL (7-25)
[2017-08-11] MEDS: Pantoprazole 40 mg/Packet GT SCH (13:25)
--- NOTE | 2017-08-11 14:15 | Internal Medicine Prog Note ---
Internal Medicine Subjective - Subjective Service Date: 08/11/17 Patient seen and examined:: with staff Patient is:: awake Per staff patient has:: tolerating meds Internal Medicine Objective - Results Result Diagrams: 08/11/17 06:10 08/11/17 06:10 Recent Labs: Laboratory Last Values WBC 12.8 Th/cmm (4.8-10.8) H 08/11/17 06:10 RBC 4.21 Mil/cmm (3.80-5.20) 08/11/17 06:10 Hgb 11.5 gm/dL (12-16) L 08/11/17 06:10 Hct 36.0 % (41.0-60) L 08/11/17 06:10 MCV 85.4 fl (81-100) 08/11/17 06:10 MCH 27.3 pg (27.0-31.0) 08/11/17 06:10 MCHC Differential 32.0 pg (28.0-36.0) 08/11/17 06:10 RDW 15.9 % (11.5-20.0) 08/11/17 06:10 Plt Count 216 Th/cmm (150-400) 08/11/17 06:10 MPV 11.9 fl 08/11/17 06:10 Neutrophils % 80.6 % (40.0-80.0) H 08/11/17 06:10 Lymphocytes % 13.3 % (20.0-50.0) L 08/11/17 06:10 Monocytes % 4.9 % (2.0-10.0) 08/11/17 06:10 Eosinophils % 1.0 % (0.0-5.0) 08/11/17 06:10 Basophils % 0.2 % (0.0-2.0) 08/11/17 06:10 Total Retics Counted 0.8 % (0.5-1.5) 08/10/17 05:50 Absolute Retic 20.6 Th/cmm 08/10/17 05:50 Corrected Retic Count 0.4 % (0.5-1.5) L 08/10/17 05:50 PT 10.0 SECONDS (9.5-11.5) 08/10/17 05:50 INR 0.96 (0.5-1.4) 08/10/17 05:50 PTT (Actin FS) 18.3 SECONDS (26.0-38.0) L 08/10/17 05:50 Sodium 163 mEq/L (136-145) H* 08/11/17 06:10 Potassium 3.6 mEq/L (3.5-5.1) 08/11/17 06:10 Chloride 118 mEq/L (98-107) H 08/11/17 06:10 Carbon Dioxide 35.7 mEq/L (21.0-31.0) H 08/11/17 06:10 Anion Gap 12.9 (7.0-16.0) 08/11/17 06:10 BUN 112 mg/dL (7-25) H* 08/11/17 06:10 Creatinine 2.3 mg/dL (0.6-1.2) H 08/11/17 06:10 Est GFR ( Amer) TNP 08/11/17 06:10 Est GFR (Non-Af Amer) TNP 08/11/17 06:10 BUN/Creatinine Ratio 48.7 08/11/17 06:10 Glucose 122 mg/dL (70-105) H 08/11/17 06:10 POC Glucose 159 MG/DL (70 - 105) H 08/11/17 12:21 Hemoglobin A1c % 6.6 % (4.0-6.0) H 08/09/17 18:20 Whole Bld Lactic Acid 1.89 mmol/L (0.60-1.99) 08/09/17 18:46 Calcium 9.7 mg/dL (8.6-10.3) 08/11/17 06:10 Magnesium 2.9 mg/dL (1.9-2.7) H 08/11/17 06:10 Total Bilirubin 0.2 mg/dL (0.3-1.0) L 08/10/17 05:50 AST 12 U/L (13-39) L 08/10/17 05:50 ALT 7 U/L (7-52) 08/10/17 05:50 Alkaline Phosphatase 49 U/L (34-104) 08/10/17 05:50 Ammonia 38 umol/L (16-53) 08/10/17 05:50 Creatine Kinase 86 U/L (30-223) 08/09/17 18:20 Troponin I 0.12 ng/mL (0.01-0.05) H* D 08/09/17 18:20 B-Natriuretic Peptide 141.0 pg/mL (5.0-100.0) H 08/09/17 18:20 Total Protein 6.6 gm/dL (6.0-8.3) 08/10/17 05:50 Albumin 2.7 gm/dL (3.7-5.3) L 08/10/17 05:50 Globulin 3.9 gm/dL 08/10/17 05:50 Albumin/Globulin Ratio 0.7 (1.0-1.8) L 08/10/17 05:50 Triglycerides 243 mg/dL (<150) H 08/09/17 18:20 Cholesterol 129 mg/dL (<200) 08/09/17 18:20 LDL Cholesterol Direct 56 mg/dL (75-193) L 08/09/17 18:20 HDL Cholesterol 24 mg/dL (23-92) 08/09/17 18:20 TSH 1.46 uIU/ml (0.34-5.60) 08/10/17 05:50 Urine Source [place] 08/09/17 18:25 Urine Color YELLOW 08/09/17 18:25 Urine Clarity CLEAR (CLEAR) 08/09/17 18:25 Urine pH 6.0 (4.6 - 8.0) 08/09/17 18:25 Ur Specific [place] 1.010 (1.005-1.030) 08/09/17 18:25 Urine Protein 100 mg/dL (NEGATIVE) H 08/09/17 18:25 Urine Glucose (UA) 500 mg/dL (NEGATIVE) H 08/09/17 18:25 Urine Ketones NEGATIVE mg/dL (NEGATIVE) 08/09/17 18:25 Urine Blood TRACE (NEGATIVE) 08/09/17 18:25 Urine Nitrate NEGATIVE (NEGATIVE) 08/09/17 18:25 Urine Bilirubin NEGATIVE (NEGATIVE) 08/09/17 18:25 Urine Urobilinogen 0.2 E.U./dL (0.2 - 1.0) 08/09/17 18:25 Ur Leukocyte Esterase NEGATIVE (NEGATIVE) 08/09/17 18:25 Urine RBC 2-5 /hpf (0-5) 08/09/17 18:25 Urine WBC NONE SEEN /hpf (0-5) 08/09/17 18:25 Ur Epithelial Cells NONE SEEN /lpf (FEW) 08/09/17 18:25 Urine Bacteria NONE SEEN /hpf (NONE SEEN) 08/09/17 18:25 Blood Type O POSITIVE 08/10/17 10:40 Antibody Screen NEGATIVE 08/10/17 10:40 Crossmatch See Detail 08/10/17 10:40 - Physical Exam Vitals and I&O: Vital Signs Temp 96.5 F 08/11/17 11:57 Pulse 79 08/11/17 11:57 Resp 18 08/11/17 11:57 BP 175/85 08/11/17 11:57 Pulse Ox 98 08/11/17 11:57 Intake & Output 08/10/17 08/11/17 08/11/17 18:59 06:59 18:59 Intake Total 1000 820 Output Total 700 Balance 1000 120 Weight (lbs) 111 lb 14.4 oz Intake: Intake, IV Amount 1000 50 Sodium Chloride 0.45% 1, 1000 000 ml @ 100 mls/hr IV . Q10H [facility] Rx#:[id number] cefTRIAXone 1 gm In 50 Sodium Chloride 0.9% 50 ml @ 100 mls/hr IV Q24HR [facility] Rx#:[id number] Tube Feeding 350 Blood Product 300 Other 120 Output: Urine 700 Active Medications: Current Medications Acetaminophen (Tylenol 650mg/20.3ml Suspension) 640 mg GT Q4H PRN PRN Reason: Temp > 100.5 Stop: 10/08/17 20:49 Al Hydrox/Mg Hydrox/Simethicone (Maalox) 30 ml GT Q6H PRN PRN Reason: GI UPSET Stop: 10/08/17 20:11 Albuterol/Ipratropium (Duoneb Neb) 3 ml HHN Q2HRT PRN PRN Reason: Shortness of Breath Stop: 10/08/17 20:11 Amlodipine Besylate (Norvasc) 10 mg GT DAILY [facility] Stop: 10/09/17 08:59 Last Admin: 08/11/17 09:05 Dose: 10 mg Glucagon (Glucagen) 1 mg IM PRN PRN PRN Reason: HYPOGLYCEMIA Stop: 10/08/17 20:59 Guaifenesin (Robitussin) 200 mg PO Q4HR PRN PRN Reason: Cough or Congestion Stop: 10/08/17 20:14 Haloperidol Decanoate (Haldol Dec) 25 mg IM [id number] [facility] Stop: 10/08/17 20:59 Hydralazine HCl (Apresoline) 25 mg PO TID [facility] Stop: 10/10/17 13:59 Ceftriaxone Sodium 1 gm/ (Sodium Chloride) 50 mls @ 100 mls/hr IV Q24HR [facility] Stop: 10/08/17 21:59 Last Infusion: 08/10/17 21:54 Dose: Infused Sodium Chloride (Nacl 0.45%) 1,000 mls @ 80 mls/hr IV .[id number] [facility] Stop: 10/10/17 12:09 Insulin Aspart (Novolog) 0 units SUBQ ACHS [facility] PRN Reason: Protocol Stop: 10/08/17 20:59 Last Admin: 08/11/17 13:22 Dose: Not Given Insulin Detemir (Levemir Insulin) 10 units SUBQ HS [facility] PRN Reason: Protocol Stop: 10/08/17 20:59 Last Admin: 08/10/17 20:13 Dose: 10 units Isosorbide Dinitrate (Isordil) 10 mg PO TID [facility] Stop: 10/10/17 13:59 Nitroglycerin (Nitrostat) 0.4 mg SL Q5MIN PRN PRN Reason: Chest Pain Stop: 10/08/17 20:14 Ondansetron HCl (Zofran Odt) 4 mg PO Q6H PRN PRN Reason: Nausea / Vomiting Stop: 10/08/17 20:59 Ondansetron HCl (Zofran) 4 mg IV Q8H PRN PRN Reason: Nausea / Vomiting Stop: 10/08/17 20:14 Pantoprazole Sodium (Protonix) 40 mg GT 1200 [facility] Stop: 10/09/17 11:59 Last Admin: 08/11/17 13:25 Dose: Not Given General: alert HEENT: NC/AT, PERRLA Neck: Supple Lungs: CTAB Cardiovascular: RRR, Normal S1, Normal S2, without murmur Abdomen: soft, non-tender, positive bowel sound - Procedures Procedures: Procedures Procedure Code Date EGD PLACE GASTROSTOMY TUBE 91941 06/21/17 EXCISION OF ASCENDING COLON, ENDO, DIAGN [id number] 06/21/17 EXCISION OF CECUM, ENDO, DIAGN [id number] 06/21/17 EXCISION OF SIGMOID COLON, ENDO, DIAGN [id number] 06/21/17 EXCISION OF STOMACH, ENDO, DIAGN [id number] 06/21/17 INSERTION OF FEEDING DEVICE INTO STOMACH, PERC APPROACH [id number] 06/21/17 INSERTION OF INFUSION DEV INTO SUP VENA CAVA, PERC APPROACH 20FU50T 06/21/17 INTRODUCTION OF NUTRITIONAL INTO CENTRAL VEIN, PERC APPROACH 4O1353A 06/21/17 PARTIAL REMOVAL OF COLON 72876 06/21/17 RESECTION OF RIGHT LARGE INTESTINE, OPEN APPROACH [id number] 06/21/17 RESPIRATORY VENTILATION, LESS THAN 24 CONSECUTIVE HOURS [id number] 06/21/17 TRANSFUSE NONAUT RED BLOOD CELLS IN PERIPH VEIN, PERC 26530T5 06/21/17 Internal Medicine Assmt/Plan - Assessment Assessment: uncontrolled dm2 -severe anemia hx dvt schizophrenia htn psychosis acute renal insufficiency leukotcytosis moderate protein lara malnutrition - Plan Plan: monitor h/h monitor bun/crea ivf for hydration follow up labs in am continue current orders Nutritional Asmnt/Malnutr-PDOC - Dietary Evaluation Malnutrition Findings (Please click <Entered> for more info): Nutritional Asmnt/Malnutrition Start: 08/10/17 15: 46 Text: Status: Complete Freq: Document 08/10/17 15:46 JENY (Rec: 08/10/17 16:16 [facility] Nutritional Asmnt/Malnutrition Patient General Information Nutritional Screening High Risk Consult Diagnosis uncontrolled DM/ARF Pertinent Medical Hx/Surgical Hx DM2, anemia, renal stones Subjective Information Consult received for elevated BS. pt seen resting in bed at time of visit. Verified TF running at 60ml/hr at time of visit. Current Diet Order/ Nutrition Support IDabetisource AC 60ml/hr x 20hr Pertinent Medications glucagen, novolog, levemir, protonix, nacl 0.45% Pertinent Labs 08/10 Na 160, K 3.7, cl 115, BUN 135, Cr 2.9, glucose 265, POC 225-204 Nutritional Hx/Data Height 5 ft 3 in Height (Calculated Centimeters) 160.0 Current Weight (lbs) 102 lb 8 oz Weight (Calculated Kilograms) 46.5 Weight (Calculated Grams) 07026.2 [place] Body Weight 115 Body Mass Index (BMI) 18.1 Weight Status Underweight GI Symptoms GI Symptoms None Last BM no record Skin Integrity/Comment: pressure ulceration to coccyx Estimated Nutritional Goals BEE in Kcals: Using Current wt Calories/Kcals/Kg 27-32 Kcals Calculated 7243-5151 Protein: Using Current wt Protein g/k.2-1.4 Protein Calculated 56-66 Fluid: ml 1269-1504ml (1ml/kcal) Nutritional Problem 1. Problem Problem altered nutrition related lab values Etiology electrolytes/fluid imbalance, dx of ARF, hx of DM, Signs/Symptoms: Na 160, Cl 115, BUN 135, Cr 2. 9, glucose 265, POC 225-204 Intervention/Recommendation Comments 1. Continue with current TF regimen. It provides 1400kcal, 72g protein, 982ml free water , meeting 100% of nutritional needs 2. Monitor TF rate, tolerance, wt weekly, skin integrity and labs 3. F/U as high risk in 2-3 days, 08/11-08/12 Expected Outcomes/Goals Expected Outcomes/Goals 1. PO intake to meet at least 75% of nutritional needs via nutrition support. 2. Wt stability, skin to remain intact, labs to approach WNL.
[2017-08-11 14:20] LABS: FOLIC ACID >20.0 ng/mL (>3.0)
[2017-08-11] MEDS: Sodium Chloride 0.45% 1,000 ML IV SCH (16:01)
--- NOTE | 2017-08-11 16:49 | GI Progress Note ---
Subjective - Review of Systems Subjective: NO OVERT GI BLEEDING Objective - Results Result Diagrams: 08/11/17 06:10 08/11/17 06:10 Recent Labs: Laboratory Last Values WBC 12.8 Th/cmm (4.8-10.8) H 08/11/17 06:10 RBC 4.21 Mil/cmm (3.80-5.20) 08/11/17 06:10 Hgb 11.5 gm/dL (12-16) L 08/11/17 06:10 Hct 36.0 % (41.0-60) L 08/11/17 06:10 MCV 85.4 fl (81-100) 08/11/17 06:10 MCH 27.3 pg (27.0-31.0) 08/11/17 06:10 MCHC Differential 32.0 pg (28.0-36.0) 08/11/17 06:10 RDW 15.9 % (11.5-20.0) 08/11/17 06:10 Plt Count 216 Th/cmm (150-400) 08/11/17 06:10 MPV 11.9 fl 08/11/17 06:10 Neutrophils % 80.6 % (40.0-80.0) H 08/11/17 06:10 Lymphocytes % 13.3 % (20.0-50.0) L 08/11/17 06:10 Monocytes % 4.9 % (2.0-10.0) 08/11/17 06:10 Eosinophils % 1.0 % (0.0-5.0) 08/11/17 06:10 Basophils % 0.2 % (0.0-2.0) 08/11/17 06:10 Total Retics Counted 0.8 % (0.5-1.5) 08/10/17 05:50 Absolute Retic 20.6 Th/cmm 08/10/17 05:50 Corrected Retic Count 0.4 % (0.5-1.5) L 08/10/17 05:50 PT 10.0 SECONDS (9.5-11.5) 08/10/17 05:50 INR 0.96 (0.5-1.4) 08/10/17 05:50 PTT (Actin FS) 18.3 SECONDS (26.0-38.0) L 08/10/17 05:50 Sodium 163 mEq/L (136-145) H* 08/11/17 06:10 Potassium 3.6 mEq/L (3.5-5.1) 08/11/17 06:10 Chloride 118 mEq/L (98-107) H 08/11/17 06:10 Carbon Dioxide 35.7 mEq/L (21.0-31.0) H 08/11/17 06:10 Anion Gap 12.9 (7.0-16.0) 08/11/17 06:10 BUN 112 mg/dL (7-25) H* 08/11/17 06:10 Creatinine 2.3 mg/dL (0.6-1.2) H 08/11/17 06:10 Est GFR ( Amer) TNP 08/11/17 06:10 Est GFR (Non-Af Amer) TNP 08/11/17 06:10 BUN/Creatinine Ratio 48.7 08/11/17 06:10 Glucose 122 mg/dL (70-105) H 08/11/17 06:10 POC Glucose 159 MG/DL (70 - 105) H 08/11/17 12:21 Hemoglobin A1c % 6.6 % (4.0-6.0) H 08/09/17 18:20 Whole Bld Lactic Acid 1.89 mmol/L (0.60-1.99) 08/09/17 18:46 Calcium 9.7 mg/dL (8.6-10.3) 08/11/17 06:10 Magnesium 2.9 mg/dL (1.9-2.7) H 08/11/17 06:10 Total Bilirubin 0.2 mg/dL (0.3-1.0) L 08/10/17 05:50 AST 12 U/L (13-39) L 08/10/17 05:50 ALT 7 U/L (7-52) 08/10/17 05:50 Alkaline Phosphatase 49 U/L (34-104) 08/10/17 05:50 Ammonia 38 umol/L (16-53) 08/10/17 05:50 Creatine Kinase 86 U/L (30-223) 08/09/17 18:20 Troponin I 0.12 ng/mL (0.01-0.05) H* D 08/09/17 18:20 B-Natriuretic Peptide 141.0 pg/mL (5.0-100.0) H 08/09/17 18:20 Total Protein 6.6 gm/dL (6.0-8.3) 08/10/17 05:50 Albumin 2.7 gm/dL (3.7-5.3) L 08/10/17 05:50 Globulin 3.9 gm/dL 08/10/17 05:50 Albumin/Globulin Ratio 0.7 (1.0-1.8) L 08/10/17 05:50 Triglycerides 243 mg/dL (<150) H 08/09/17 18:20 Cholesterol 129 mg/dL (<200) 08/09/17 18:20 LDL Cholesterol Direct 56 mg/dL (75-193) L 08/09/17 18:20 HDL Cholesterol 24 mg/dL (23-92) 08/09/17 18:20 Vitamin B12 770 pg/mL (232-1245) 08/10/17 05:50 Folic Acid >20.0 ng/mL (>3.0) 08/10/17 05:50 TSH 1.46 uIU/ml (0.34-5.60) 08/10/17 05:50 Urine Source [place] 08/09/17 18:25 Urine Color YELLOW 08/09/17 18:25 Urine Clarity CLEAR (CLEAR) 08/09/17 18:25 Urine pH 6.0 (4.6 - 8.0) 08/09/17 18:25 Ur Specific [place] 1.010 (1.005-1.030) 08/09/17 18:25 Urine Protein 100 mg/dL (NEGATIVE) H 08/09/17 18:25 Urine Glucose (UA) 500 mg/dL (NEGATIVE) H 08/09/17 18:25 Urine Ketones NEGATIVE mg/dL (NEGATIVE) 08/09/17 18:25 Urine Blood TRACE (NEGATIVE) 08/09/17 18:25 Urine Nitrate NEGATIVE (NEGATIVE) 08/09/17 18:25 Urine Bilirubin NEGATIVE (NEGATIVE) 08/09/17 18:25 Urine Urobilinogen 0.2 E.U./dL (0.2 - 1.0) 08/09/17 18:25 Ur Leukocyte Esterase NEGATIVE (NEGATIVE) 08/09/17 18:25 Urine RBC 2-5 /hpf (0-5) 08/09/17 18:25 Urine WBC NONE SEEN /hpf (0-5) 08/09/17 18:25 Ur Epithelial Cells NONE SEEN /lpf (FEW) 08/09/17 18:25 Urine Bacteria NONE SEEN /hpf (NONE SEEN) 08/09/17 18:25 Blood Type O POSITIVE 08/10/17 10:40 Antibody Screen NEGATIVE 08/10/17 10:40 Crossmatch See Detail 08/10/17 10:40 - Physical Exam Vitals and I&O: Vital Signs Temp 96.6 F 08/11/17 15:00 Pulse 79 08/11/17 16:01 Resp 18 08/11/17 15:00 BP 175/84 08/11/17 16:01 Pulse Ox 99 08/11/17 15:00 Intake & Output 08/10/17 08/11/17 08/11/17 18:59 06:59 18:59 Intake Total 1000 820 Output Total 700 Balance 1000 120 Weight (lbs) 50.757 kg 50.349 kg Intake: Intake, IV Amount 1000 50 Sodium Chloride 0.45% 1, 1000 000 ml @ 100 mls/hr IV . Q10H [facility] Rx#:[id number] cefTRIAXone 1 gm In 50 Sodium Chloride 0.9% 50 ml @ 100 mls/hr IV Q24HR [facility] Rx#:[id number] Tube Feeding 350 Blood Product 300 Other 120 Output: Urine 700 Active Medications: Current Medications Acetaminophen (Tylenol 650mg/20.3ml Suspension) 640 mg GT Q4H PRN PRN Reason: Temp > 100.5 Stop: 10/08/17 20:49 Al Hydrox/Mg Hydrox/Simethicone (Maalox) 30 ml GT Q6H PRN PRN Reason: GI UPSET Stop: 10/08/17 20:11 Albuterol/Ipratropium (Duoneb Neb) 3 ml HHN Q2HRT PRN PRN Reason: Shortness of Breath Stop: 10/08/17 20:11 Amlodipine Besylate (Norvasc) 10 mg GT DAILY [facility] Stop: 10/09/17 08:59 Last Admin: 08/11/17 09:05 Dose: 10 mg Glucagon (Glucagen) 1 mg IM PRN PRN PRN Reason: HYPOGLYCEMIA Stop: 10/08/17 20:59 Guaifenesin (Robitussin) 200 mg PO Q4HR PRN PRN Reason: Cough or Congestion Stop: 10/08/17 20:14 Haloperidol Decanoate (Haldol Dec) 25 mg IM [id number] [facility] Stop: 10/08/17 20:59 Hydralazine HCl (Apresoline) 25 mg PO TID [facility] Stop: 10/10/17 13:59 Last Admin: 08/11/17 16:01 Dose: 25 mg Ceftriaxone Sodium 1 gm/ (Sodium Chloride) 50 mls @ 100 mls/hr IV Q24HR [facility] Stop: 10/08/17 21:59 Last Infusion: 08/10/17 21:54 Dose: Infused Sodium Chloride (Nacl 0.45%) 1,000 mls @ 80 mls/hr IV .[id number] [facility] Stop: 10/10/17 12:09 Last Admin: 08/11/17 16:01 Dose: 80 mls/hr Insulin Aspart (Novolog) 0 units SUBQ ACHS ED PRN Reason: Protocol Stop: 10/08/17 20:59 Last Admin: 08/11/17 13:22 Dose: Not Given Insulin Detemir (Levemir Insulin) 10 units SUBQ HS ED PRN Reason: Protocol Stop: 10/08/17 20:59 Last Admin: 08/10/17 20:13 Dose: 10 units Isosorbide Dinitrate (Isordil) 10 mg PO TID [facility] Stop: 10/10/17 13:59 Last Admin: 08/11/17 15:59 Dose: 10 mg Nitroglycerin (Nitrostat) 0.4 mg SL Q5MIN PRN PRN Reason: Chest Pain Stop: 10/08/17 20:14 Ondansetron HCl (Zofran Odt) 4 mg PO Q6H PRN PRN Reason: Nausea / Vomiting Stop: 10/08/17 20:59 Ondansetron HCl (Zofran) 4 mg IV Q8H PRN PRN Reason: Nausea / Vomiting Stop: 10/08/17 20:14 Pantoprazole Sodium (Protonix) 40 mg GT 1200 [facility] Stop: 10/09/17 11:59 Last Admin: 08/11/17 13:25 Dose: Not Given - Procedures Procedures: Procedures Procedure Code Date EGD PLACE GASTROSTOMY TUBE 30865 06/21/17 EXCISION OF ASCENDING COLON, ENDO, DIAGN [id number] 06/21/17 EXCISION OF CECUM, ENDO, DIAGN [id number] 06/21/17 EXCISION OF SIGMOID COLON, ENDO, DIAGN [id number] 06/21/17 EXCISION OF STOMACH, ENDO, DIAGN [id number] 06/21/17 INSERTION OF FEEDING DEVICE INTO STOMACH, PERC APPROACH [id number] 06/21/17 INSERTION OF INFUSION DEV INTO SUP VENA CAVA, PERC APPROACH 02XO58E 06/21/17 INTRODUCTION OF NUTRITIONAL INTO CENTRAL VEIN, PERC APPROACH 3P0395I 06/21/17 PARTIAL REMOVAL OF COLON 21617 06/21/17 RESECTION OF RIGHT LARGE INTESTINE, OPEN APPROACH [id number] 06/21/17 RESPIRATORY VENTILATION, LESS THAN 24 CONSECUTIVE HOURS 3V9461M 06/21/17 TRANSFUSE NONAUT RED BLOOD CELLS IN PERIPH VEIN, PERC 77544G1 06/21/17 Assessment/Plan - Problem List Patient Problems: All Active Problems HYPERGLYCEMIA (Acute) - Assessment Assessment: 76 YO FEMALE WITH RECENT EGD SHOWING MW TEAR AND GASTRIC ULCER ALSO HAD COLO SHOWING POLYPS, DIVERTICULOSIS, HEMORRHOIDS SINCE SOME POLYPS WERE LARGE PT HAD SUBSEQUENT HEMICOLECTOMY NO OVERT GI BLEEDING 1.FOLLOW H/H 2.STOOL OB 3.CONSIDER BLEEDING SCAN
--- NOTE | 2017-08-11 19:09 | Consultation ---
DATE OF CONSULTATION: 08/10/2017 INPATIENT GASTROINTESTINAL CONSULT REFERRING PHYSICIAN: Dr. Tobias. REASON FOR CONSULTATION: Anemia. HISTORY OF PRESENT ILLNESS: This is a 76-year-old female who was found to have hyperglycemia, was sent to the hospital, the patient was found to be anemic; therefore, we were asked to see the patient. The patient is otherwise a poor historian. No reports of any GI bleeding. PAST MEDICAL HISTORY: Diabetes, anemia, kidney stones. PAST SURGICAL HISTORY: PEG tube. FAMILY HISTORY: Noncontributory. SOCIAL HISTORY: Resident of [facility]. ALLERGIES: None. CURRENT MEDICATIONS: Tylenol, Maalox, albuterol, Norvasc, ceftriaxone, Robitussin, Haldol, hydrocortisone, insulin, Zofran, Protonix. REVIEW OF SYSTEMS: Unobtainable. PHYSICAL EXAMINATION: VITAL SIGNS: Temperature 96.1, breathing 17, pulse of 78, blood pressure 158/69, satting 100%. GENERAL: In no apparent distress. HEENT: Eyes are anicteric. Normal conjunctivae. Normocephalic, atraumatic. Moist mucous membranes. NECK: Soft, supple. CHEST: Clear with normal effort. CARDIOVASCULAR: Regular rate and rhythm. ABDOMEN: Soft, nontender, nondistended with G-tube. LABORATORY AND DIAGNOSTIC DATA: Show a white count 14, hemoglobin 7.2, MCV of 86, platelets of 218. INR 0.96. LFTs were within normal limits. The patient has had GI workup in May 2017. She underwent endoscopy, colonoscopy, which showed hiatal hernia, cecal colonic polyp, sigmoid polyp, diverticulosis, internal hemorrhoids. The patient also had a subsequent EGD in June 2017 which showed a Mary-Valladares tear, gastric ulcer and also in June 2017, she had an endoscopy with PEG tube placement. IMPRESSION: This is a 76-year-old female with anemia, no overt GI bleeding, Cause of anemia could be multifactorial including anemia of chronic disease from chronic kidney disease. On the other hand, could have blood loss from the colon polyps. She did have recent right hemicolectomy. PLAN: 1. Follow H and H, transfuse as needed. 2. Get a bleeding scan. 3. Consider addressing the chronic kidney disease. 4. Provide the patient with Protonix. Thank you for allowing me to participate. Please call me if you have any questions. [facility]# [id number]
[2017-08-11] MEDS: Insulin Detemir 100 units/mL 10mL Vial SUBQ SCH (21:11)
[2017-08-11] MEDS: cefTRIAXone 1 GM in Sodium Chloride 0.9% 50 ML IV SCH (21:16)
[2017-08-12 05:48] LABS: % BASOPHILS 0.4 % (0.0-2.0); % EOSINOPHILS 1.6 % (0.0-5.0); % LYMPHOCYTES 13.7 % (20.0-50.0); % MONOCYTES 5.5 % (2.0-10.0); % NEUTROPHILS 78.8 % (40.0-80.0); EOSINOPHILE ABSOLUTE 0.2 Th/cmm (0.1-0.4); HEMATOCRIT 37.3 % (41.0-60); HEMOGLOBIN 12.1 gm/dL (12-16); LYMPHOCYTE ABSOLUTE 1.4 Th/cmm (1.5-3.0); MEAN CELL VOLUME 84.9 fl (81-100); MEAN CORPUSCULAR HEMOGLOBIN 27.7 pg (27.0-31.0); MEAN CORPUSCULAR HGB CONC 32.6 pg (28.0-36.0); MEAN PLATELET VOLUME 11.6 fl; MONOCYTE ABSOLUTE 0.6 Th/cmm (0.3-1.0); NEUTROPHILE ABSOLUTE 8.2 Th/cmm (1.8-8.0); PLATELET COUNT 198 Th/cmm (150-400); RED BLOOD COUNT 4.39 Mil/cmm (3.80-5.20); RED CELL DISTRIBUTION WIDTH 15.8 % (11.5-20.0); WHITE BLOOD COUNT 10.4 Th/cmm (4.8-10.8)
[2017-08-12 06:09] LABS: ANION GAP 11.3 (7.0-16.0); CALCIUM SERUM 9.5 mg/dL (8.6-10.3); CARBON DIOXIDE 38.1 mEq/L (21.0-31.0); CHLORIDE 115 mEq/L (98-107); CREATININE - SERUM 1.9 mg/dL (0.6-1.2); POTASSIUM SERUM 3.4 mEq/L (3.5-5.1)
[2017-08-12 06:12] LABS: BUN - UREA NITROGEN 95 mg/dL (7-25); SODIUM SERUM 161 mEq/L (136-145)
[2017-08-12 07:51] LABS: GLUCOSE 229 mg/dL (70-105)
[2017-08-12] MEDS: INSULIN ASPART, RECOMBINANT 100 UNITS/ML SUBQ SCH ×4 (08:12→21:25)
[2017-08-12] MEDS: Sodium Chloride 0.45% 1,000 ML IV SCH (09:33)
--- NOTE | 2017-08-12 10:27 | GI Progress Note ---
Subjective - Review of Systems Service Date: 08/12/17 Subjective: No new events, no overt bleeding Objective - Results Result Diagrams: 08/12/17 05:00 08/12/17 05:00 Recent Labs: Laboratory Last Values WBC 10.4 Th/cmm (4.8-10.8) 08/12/17 05:00 RBC 4.39 Mil/cmm (3.80-5.20) 08/12/17 05:00 Hgb 12.1 gm/dL (12-16) 08/12/17 05:00 Hct 37.3 % (41.0-60) L 08/12/17 05:00 MCV 84.9 fl (81-100) 08/12/17 05:00 MCH 27.7 pg (27.0-31.0) 08/12/17 05:00 MCHC Differential 32.6 pg (28.0-36.0) 08/12/17 05:00 RDW 15.8 % (11.5-20.0) 08/12/17 05:00 Plt Count 198 Th/cmm (150-400) 08/12/17 05:00 MPV 11.6 fl 08/12/17 05:00 Neutrophils % 78.8 % (40.0-80.0) 08/12/17 05:00 Lymphocytes % 13.7 % (20.0-50.0) L 08/12/17 05:00 Monocytes % 5.5 % (2.0-10.0) 08/12/17 05:00 Eosinophils % 1.6 % (0.0-5.0) 08/12/17 05:00 Basophils % 0.4 % (0.0-2.0) 08/12/17 05:00 Total Retics Counted 0.8 % (0.5-1.5) 08/10/17 05:50 Absolute Retic 20.6 Th/cmm 08/10/17 05:50 Corrected Retic Count 0.4 % (0.5-1.5) L 08/10/17 05:50 PT 10.0 SECONDS (9.5-11.5) 08/10/17 05:50 INR 0.96 (0.5-1.4) 08/10/17 05:50 PTT (Actin FS) 18.3 SECONDS (26.0-38.0) L 08/10/17 05:50 Sodium 161 mEq/L (136-145) H* 08/12/17 05:00 Potassium 3.4 mEq/L (3.5-5.1) L 08/12/17 05:00 Chloride 115 mEq/L (98-107) H 08/12/17 05:00 Carbon Dioxide 38.1 mEq/L (21.0-31.0) H 08/12/17 05:00 Anion Gap 11.3 (7.0-16.0) 08/12/17 05:00 BUN 95 mg/dL (7-25) H* 08/12/17 05:00 Creatinine 1.9 mg/dL (0.6-1.2) H 08/12/17 05:00 Est GFR ( Amer) TNP 08/12/17 05:00 Est GFR (Non-Af Amer) TNP 08/12/17 05:00 BUN/Creatinine Ratio 50.0 08/12/17 05:00 Glucose 229 mg/dL (70-105) H D 08/12/17 05:00 POC Glucose 224 MG/DL (70 - 105) H 08/12/17 05:55 Hemoglobin A1c % 6.6 % (4.0-6.0) H 08/09/17 18:20 Whole Bld Lactic Acid 1.89 mmol/L (0.60-1.99) 08/09/17 18:46 Calcium 9.5 mg/dL (8.6-10.3) 08/12/17 05:00 Magnesium 2.9 mg/dL (1.9-2.7) H 08/11/17 06:10 Total Bilirubin 0.2 mg/dL (0.3-1.0) L 08/10/17 05:50 AST 12 U/L (13-39) L 08/10/17 05:50 ALT 7 U/L (7-52) 08/10/17 05:50 Alkaline Phosphatase 49 U/L (34-104) 08/10/17 05:50 Ammonia 38 umol/L (16-53) 08/10/17 05:50 Creatine Kinase 86 U/L (30-223) 08/09/17 18:20 Troponin I 0.12 ng/mL (0.01-0.05) H* D 08/09/17 18:20 B-Natriuretic Peptide 277.0 pg/mL (5.0-100.0) H 08/12/17 05:00 Total Protein 6.6 gm/dL (6.0-8.3) 08/10/17 05:50 Albumin 2.7 gm/dL (3.7-5.3) L 08/10/17 05:50 Globulin 3.9 gm/dL 08/10/17 05:50 Albumin/Globulin Ratio 0.7 (1.0-1.8) L 08/10/17 05:50 Triglycerides 243 mg/dL (<150) H 08/09/17 18:20 Cholesterol 129 mg/dL (<200) 08/09/17 18:20 LDL Cholesterol Direct 56 mg/dL (75-193) L 08/09/17 18:20 HDL Cholesterol 24 mg/dL (23-92) 08/09/17 18:20 Vitamin B12 770 pg/mL (232-1245) 08/10/17 05:50 Folic Acid >20.0 ng/mL (>3.0) 08/10/17 05:50 TSH 1.46 uIU/ml (0.34-5.60) 08/10/17 05:50 Urine Source [place] 08/09/17 18:25 Urine Color YELLOW 08/09/17 18:25 Urine Clarity CLEAR (CLEAR) 08/09/17 18:25 Urine pH 6.0 (4.6 - 8.0) 08/09/17 18:25 Ur Specific [place] 1.010 (1.005-1.030) 08/09/17 18:25 Urine Protein 100 mg/dL (NEGATIVE) H 08/09/17 18:25 Urine Glucose (UA) 500 mg/dL (NEGATIVE) H 08/09/17 18:25 Urine Ketones NEGATIVE mg/dL (NEGATIVE) 08/09/17 18:25 Urine Blood TRACE (NEGATIVE) 08/09/17 18:25 Urine Nitrate NEGATIVE (NEGATIVE) 08/09/17 18:25 Urine Bilirubin NEGATIVE (NEGATIVE) 08/09/17 18:25 Urine Urobilinogen 0.2 E.U./dL (0.2 - 1.0) 08/09/17 18:25 Ur Leukocyte Esterase NEGATIVE (NEGATIVE) 08/09/17 18:25 Urine RBC 2-5 /hpf (0-5) 08/09/17 18:25 Urine WBC NONE SEEN /hpf (0-5) 08/09/17 18:25 Ur Epithelial Cells NONE SEEN /lpf (FEW) 08/09/17 18:25 Urine Bacteria NONE SEEN /hpf (NONE SEEN) 08/09/17 18:25 Blood Type O POSITIVE 08/10/17 10:40 Antibody Screen NEGATIVE 08/10/17 10:40 Crossmatch See Detail 08/10/17 10:40 - Physical Exam Vitals and I&O: Vital Signs Temp 96.1 F 08/12/17 07:52 Pulse 79 08/12/17 09:23 Resp 17 08/12/17 07:52 BP 166/77 08/12/17 09:23 Pulse Ox 100 08/12/17 07:52 Intake & Output 08/11/17 08/12/17 08/12/17 18:59 06:59 18:59 Intake Total 1770 Output Total 700 Balance 1070 Weight (lbs) 50.349 kg 50.037 kg Intake: Intake, IV Amount 1050 Sodium Chloride 0.45% 1, 1000 000 ml @ 80 mls/hr IV . [id number] [facility] Rx#:[id number] cefTRIAXone 1 gm In 50 Sodium Chloride 0.9% 50 ml @ 100 mls/hr IV Q24HR [facility] Rx#:[id number] Tube Feeding 600 Other 120 Output: Urine 700 Active Medications: Current Medications Acetaminophen (Tylenol 650mg/20.3ml Suspension) 640 mg GT Q4H PRN PRN Reason: Temp > 100.5 Stop: 10/08/17 20:49 Al Hydrox/Mg Hydrox/Simethicone (Maalox) 30 ml GT Q6H PRN PRN Reason: GI UPSET Stop: 10/08/17 20:11 Albuterol/Ipratropium (Duoneb Neb) 3 ml HHN Q2HRT PRN PRN Reason: Shortness of Breath Stop: 10/08/17 20:11 Amlodipine Besylate (Norvasc) 10 mg GT DAILY [facility] Stop: 10/09/17 08:59 Last Admin: 08/12/17 09:23 Dose: 10 mg Glucagon (Glucagen) 1 mg IM PRN PRN PRN Reason: HYPOGLYCEMIA Stop: 10/08/17 20:59 Guaifenesin (Robitussin) 200 mg PO Q4HR PRN PRN Reason: Cough or Congestion Stop: 10/08/17 20:14 Haloperidol Decanoate (Haldol Dec) 25 mg IM [id number] [facility] Stop: 10/08/17 20:59 Hydralazine HCl (Apresoline) 25 mg PO TID [facility] Stop: 10/10/17 13:59 Last Admin: 08/12/17 09:23 Dose: 25 mg Ceftriaxone Sodium 1 gm/ (Sodium Chloride) 50 mls @ 100 mls/hr IV Q24HR [facility] Stop: 10/08/17 21:59 Last Infusion: 08/11/17 21:46 Dose: Infused Sodium Chloride (Nacl 0.45%) 1,000 mls @ 80 mls/hr IV .[id number] [facility] Stop: 10/10/17 12:09 Last Admin: 08/12/17 09:33 Dose: 80 mls/hr Insulin Aspart (Novolog) 0 units SUBQ ACHS [facility] PRN Reason: Protocol Stop: 10/08/17 20:59 Last Admin: 08/12/17 08:12 Dose: 2 units Insulin Detemir (Levemir Insulin) 10 units SUBQ HS [facility] PRN Reason: Protocol Stop: 10/08/17 20:59 Last Admin: 08/11/17 21:11 Dose: 10 units Isosorbide Dinitrate (Isordil) 10 mg PO TID [facility] Stop: 10/10/17 13:59 Last Admin: 08/12/17 09:22 Dose: 10 mg Nitroglycerin (Nitrostat) 0.4 mg SL Q5MIN PRN PRN Reason: Chest Pain Stop: 10/08/17 20:14 Ondansetron HCl (Zofran Odt) 4 mg PO Q6H PRN PRN Reason: Nausea / Vomiting Stop: 10/08/17 20:59 Ondansetron HCl (Zofran) 4 mg IV Q8H PRN PRN Reason: Nausea / Vomiting Stop: 10/08/17 20:14 Pantoprazole Sodium (Protonix) 40 mg GT 1200 [facility] Stop: 10/09/17 11:59 Last Admin: 08/11/17 13:25 Dose: Not Given General: Alert HEENT: Atraumatic Neck: Supple Cardiovascular: Regular rate Abdomen: Bowel sounds, Soft, no Tender, no Hepatomegaly, no Rebound, no Mass, no Guarding, no Obese Extremities: no Cyanosis - Procedures Procedures: Procedures Procedure Code Date EGD PLACE GASTROSTOMY TUBE 97042 06/21/17 EXCISION OF ASCENDING COLON, ENDO, DIAGN [id number] 06/21/17 EXCISION OF CECUM, ENDO, DIAGN [id number] 06/21/17 EXCISION OF SIGMOID COLON, ENDO, DIAGN [id number] 06/21/17 EXCISION OF STOMACH, ENDO, DIAGN [id number] 06/21/17 INSERTION OF FEEDING DEVICE INTO STOMACH, PERC APPROACH [id number] 06/21/17 INSERTION OF INFUSION DEV INTO SUP VENA CAVA, PERC APPROACH [id number] 06/21/17 INTRODUCTION OF NUTRITIONAL INTO CENTRAL VEIN, PERC APPROACH [id number] 06/21/17 PARTIAL REMOVAL OF COLON 62297 06/21/17 RESECTION OF RIGHT LARGE INTESTINE, OPEN APPROACH [id number] 06/21/17 RESPIRATORY VENTILATION, LESS THAN 24 CONSECUTIVE HOURS 9F3202V 06/21/17 TRANSFUSE NONAUT RED BLOOD CELLS IN PERIPH VEIN, PERC 76229Y0 06/21/17 Assessment/Plan - Problem List Patient Problems: All Active Problems HYPERGLYCEMIA (Acute) - Assessment Assessment: 76 YO FEMALE WITH RECENT EGD SHOWING MW TEAR AND GASTRIC ULCER ALSO HAD COLO SHOWING POLYPS, DIVERTICULOSIS, HEMORRHOIDS. 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 NO OVERT GI BLEEDING Pt has had EGD x 3 and colonoscopy x 1 at this point. Her anemia is unlikely to be due to ongoing GI bleeding 1.FOLLOW H/H 2.STOOL OB 3.f/u BLEEDING SCAN 4. cont tube feeding
--- NOTE | 2017-08-12 10:56 | Diagnostic Imaging Report ---
Exam: GI bleeding scan HISTORY: GI bleeding anemia Findings: Utilizing 20.1 mCi of technetium 99m tagged red blood cells the examination of the abdomen was performed in multiple planes The study is limited due to patient inability to cooperate and being contracted. Grossly there is no evidence of for abnormal accumulation of right midcervical. IMPRESSION: Extremely limited examination, no evidence of for gastrointestinal hemorrhage at this time. Side-port
[2017-08-12 12:10] LABS: FERRITIN 917 ng/mL (15-150); HAPTOGLOBIN 433 mg/dL (34-200); IRON LC 26 ug/dL (27-139); TIBC (LC) 151 ug/dL (250-450); UIBC 125 ug/dL (118-369)
--- NOTE | 2017-08-12 12:33 | Internal Medicine Prog Note ---
Internal Medicine Subjective - Subjective Service Date: 08/12/17 (bleeding scan negative for any hemorrhage. ) Patient seen and examined:: with staff Patient is:: awake Per staff patient has:: tolerating meds Internal Medicine Objective - Results Result Diagrams: 08/12/17 05:00 08/12/17 05:00 Recent Labs: Laboratory Last Values WBC 10.4 Th/cmm (4.8-10.8) 08/12/17 05:00 RBC 4.39 Mil/cmm (3.80-5.20) 08/12/17 05:00 Hgb 12.1 gm/dL (12-16) 08/12/17 05:00 Hct 37.3 % (41.0-60) L 08/12/17 05:00 MCV 84.9 fl (81-100) 08/12/17 05:00 MCH 27.7 pg (27.0-31.0) 08/12/17 05:00 MCHC Differential 32.6 pg (28.0-36.0) 08/12/17 05:00 RDW 15.8 % (11.5-20.0) 08/12/17 05:00 Plt Count 198 Th/cmm (150-400) 08/12/17 05:00 MPV 11.6 fl 08/12/17 05:00 Neutrophils % 78.8 % (40.0-80.0) 08/12/17 05:00 Lymphocytes % 13.7 % (20.0-50.0) L 08/12/17 05:00 Monocytes % 5.5 % (2.0-10.0) 08/12/17 05:00 Eosinophils % 1.6 % (0.0-5.0) 08/12/17 05:00 Basophils % 0.4 % (0.0-2.0) 08/12/17 05:00 Total Retics Counted 0.8 % (0.5-1.5) 08/10/17 05:50 Absolute Retic 20.6 Th/cmm 08/10/17 05:50 Corrected Retic Count 0.4 % (0.5-1.5) L 08/10/17 05:50 Haptoglobin 433 mg/dL (34-200) H 08/10/17 05:50 PT 10.0 SECONDS (9.5-11.5) 08/10/17 05:50 INR 0.96 (0.5-1.4) 08/10/17 05:50 PTT (Actin FS) 18.3 SECONDS (26.0-38.0) L 08/10/17 05:50 Sodium 161 mEq/L (136-145) H* 08/12/17 05:00 Potassium 3.4 mEq/L (3.5-5.1) L 08/12/17 05:00 Chloride 115 mEq/L (98-107) H 08/12/17 05:00 Carbon Dioxide 38.1 mEq/L (21.0-31.0) H 08/12/17 05:00 Anion Gap 11.3 (7.0-16.0) 08/12/17 05:00 BUN 95 mg/dL (7-25) H* 08/12/17 05:00 Creatinine 1.9 mg/dL (0.6-1.2) H 08/12/17 05:00 Est GFR ( Amer) TNP 08/12/17 05:00 Est GFR (Non-Af Amer) TNP 08/12/17 05:00 BUN/Creatinine Ratio 50.0 08/12/17 05:00 Glucose 229 mg/dL (70-105) H D 08/12/17 05:00 POC Glucose 184 MG/DL (70 - 105) H 08/12/17 11:22 Hemoglobin A1c % 6.6 % (4.0-6.0) H 08/09/17 18:20 Whole Bld Lactic Acid 1.89 mmol/L (0.60-1.99) 08/09/17 18:46 Calcium 9.5 mg/dL (8.6-10.3) 08/12/17 05:00 Magnesium 2.9 mg/dL (1.9-2.7) H 08/11/17 06:10 Iron 26 ug/dL (27-139) L 08/10/17 05:50 TIBC 151 ug/dL (250-450) L 08/10/17 05:50 Iron Saturation 17 % (15-55) 08/10/17 05:50 Unsaturated IBC 125 ug/dL (118-369) 08/10/17 05:50 Ferritin 917 ng/mL (15-150) H 08/10/17 05:50 Total Bilirubin 0.2 mg/dL (0.3-1.0) L 08/10/17 05:50 AST 12 U/L (13-39) L 08/10/17 05:50 ALT 7 U/L (7-52) 08/10/17 05:50 Alkaline Phosphatase 49 U/L (34-104) 08/10/17 05:50 Ammonia 38 umol/L (16-53) 08/10/17 05:50 Creatine Kinase 86 U/L (30-223) 08/09/17 18:20 Troponin I 0.12 ng/mL (0.01-0.05) H* D 08/09/17 18:20 B-Natriuretic Peptide 277.0 pg/mL (5.0-100.0) H 08/12/17 05:00 Total Protein 6.6 gm/dL (6.0-8.3) 08/10/17 05:50 Albumin 2.7 gm/dL (3.7-5.3) L 08/10/17 05:50 Globulin 3.9 gm/dL 08/10/17 05:50 Albumin/Globulin Ratio 0.7 (1.0-1.8) L 08/10/17 05:50 Triglycerides 243 mg/dL (<150) H 08/09/17 18:20 Cholesterol 129 mg/dL (<200) 08/09/17 18:20 LDL Cholesterol Direct 56 mg/dL (75-193) L 08/09/17 18:20 HDL Cholesterol 24 mg/dL (23-92) 08/09/17 18:20 Vitamin B12 770 pg/mL (232-1245) 08/10/17 05:50 Folic Acid >20.0 ng/mL (>3.0) 08/10/17 05:50 TSH 1.46 uIU/ml (0.34-5.60) 08/10/17 05:50 Urine Source [place] 08/09/17 18:25 Urine Color YELLOW 08/09/17 18:25 Urine Clarity CLEAR (CLEAR) 08/09/17 18:25 Urine pH 6.0 (4.6 - 8.0) 08/09/17 18:25 Ur Specific [place] 1.010 (1.005-1.030) 08/09/17 18:25 Urine Protein 100 mg/dL (NEGATIVE) H 08/09/17 18:25 Urine Glucose (UA) 500 mg/dL (NEGATIVE) H 08/09/17 18:25 Urine Ketones NEGATIVE mg/dL (NEGATIVE) 08/09/17 18:25 Urine Blood TRACE (NEGATIVE) 08/09/17 18:25 Urine Nitrate NEGATIVE (NEGATIVE) 08/09/17 18:25 Urine Bilirubin NEGATIVE (NEGATIVE) 08/09/17 18:25 Urine Urobilinogen 0.2 E.U./dL (0.2 - 1.0) 08/09/17 18:25 Ur Leukocyte Esterase NEGATIVE (NEGATIVE) 08/09/17 18:25 Urine RBC 2-5 /hpf (0-5) 08/09/17 18:25 Urine WBC NONE SEEN /hpf (0-5) 08/09/17 18:25 Ur Epithelial Cells NONE SEEN /lpf (FEW) 08/09/17 18:25 Urine Bacteria NONE SEEN /hpf (NONE SEEN) 08/09/17 18:25 Blood Type O POSITIVE 08/10/17 10:40 Antibody Screen NEGATIVE 08/10/17 10:40 Crossmatch See Detail 08/10/17 10:40 - Physical Exam Vitals and I&O: Vital Signs Temp 96.1 F 08/12/17 07:52 Pulse 79 08/12/17 09:23 Resp 17 08/12/17 07:52 BP 166/77 08/12/17 09:23 Pulse Ox 100 08/12/17 07:52 Intake & Output 08/11/17 08/12/17 08/12/17 18:59 06:59 18:59 Intake Total 1770 Output Total 700 Balance 1070 Weight (lbs) 111 lb 110 lb 5 oz 110 lb Intake: Intake, IV Amount 1050 Sodium Chloride 0.45% 1, 1000 000 ml @ 80 mls/hr IV . [id number] [facility] Rx#:[id number] cefTRIAXone 1 gm In 50 Sodium Chloride 0.9% 50 ml @ 100 mls/hr IV Q24HR [facility] Rx#:[id number] Tube Feeding 600 Other 120 Output: Urine 700 Active Medications: Current Medications Acetaminophen (Tylenol 650mg/20.3ml Suspension) 640 mg GT Q4H PRN PRN Reason: Temp > 100.5 Stop: 10/08/17 20:49 Al Hydrox/Mg Hydrox/Simethicone (Maalox) 30 ml GT Q6H PRN PRN Reason: GI UPSET Stop: 10/08/17 20:11 Albuterol/Ipratropium (Duoneb Neb) 3 ml HHN Q2HRT PRN PRN Reason: Shortness of Breath Stop: 10/08/17 20:11 Amlodipine Besylate (Norvasc) 10 mg GT DAILY [facility] Stop: 10/09/17 08:59 Last Admin: 08/12/17 09:23 Dose: 10 mg Glucagon (Glucagen) 1 mg IM PRN PRN PRN Reason: HYPOGLYCEMIA Stop: 10/08/17 20:59 Guaifenesin (Robitussin) 200 mg PO Q4HR PRN PRN Reason: Cough or Congestion Stop: 10/08/17 20:14 Haloperidol Decanoate (Haldol Dec) 25 mg IM [id number] [facility] Stop: 10/08/17 20:59 Hydralazine HCl (Apresoline) 25 mg PO TID [facility] Stop: 10/10/17 13:59 Last Admin: 08/12/17 09:23 Dose: 25 mg Ceftriaxone Sodium 1 gm/ (Sodium Chloride) 50 mls @ 100 mls/hr IV Q24HR [facility] Stop: 10/08/17 21:59 Last Infusion: 08/11/17 21:46 Dose: Infused Sodium Chloride (Nacl 0.45%) 1,000 mls @ 80 mls/hr IV .[id number] [facility] Stop: 10/10/17 12:09 Last Admin: 08/12/17 09:33 Dose: 80 mls/hr Insulin Aspart (Novolog) 0 units SUBQ ACHS [facility] PRN Reason: Protocol Stop: 10/08/17 20:59 Last Admin: 08/12/17 08:12 Dose: 2 units Insulin Detemir (Levemir Insulin) 10 units SUBQ HS [facility] PRN Reason: Protocol Stop: 10/08/17 20:59 Last Admin: 08/11/17 21:11 Dose: 10 units Isosorbide Dinitrate (Isordil) 10 mg PO TID [facility] Stop: 10/10/17 13:59 Last Admin: 08/12/17 09:22 Dose: 10 mg Nitroglycerin (Nitrostat) 0.4 mg SL Q5MIN PRN PRN Reason: Chest Pain Stop: 10/08/17 20:14 Ondansetron HCl (Zofran Odt) 4 mg PO Q6H PRN PRN Reason: Nausea / Vomiting Stop: 10/08/17 20:59 Ondansetron HCl (Zofran) 4 mg IV Q8H PRN PRN Reason: Nausea / Vomiting Stop: 10/08/17 20:14 Pantoprazole Sodium (Protonix) 40 mg GT 1200 [facility] Stop: 10/09/17 11:59 Last Admin: 08/11/17 13:25 Dose: Not Given General: alert HEENT: NC/AT, PERRLA Neck: Supple Lungs: CTAB Cardiovascular: RRR, Normal S1, Normal S2, without murmur Abdomen: soft, non-tender, positive bowel sound - Procedures Procedures: Procedures Procedure Code Date EGD PLACE GASTROSTOMY TUBE 28922 06/21/17 EXCISION OF ASCENDING COLON, ENDO, DIAGN [id number] 06/21/17 EXCISION OF CECUM, ENDO, DIAGN [id number] 06/21/17 EXCISION OF SIGMOID COLON, ENDO, DIAGN [id number] 06/21/17 EXCISION OF STOMACH, ENDO, DIAGN [id number] 06/21/17 INSERTION OF FEEDING DEVICE INTO STOMACH, PERC APPROACH [id number] 06/21/17 INSERTION OF INFUSION DEV INTO SUP VENA CAVA, PERC APPROACH 42MJ79B 06/21/17 INTRODUCTION OF NUTRITIONAL INTO CENTRAL VEIN, PERC APPROACH [id number] 06/21/17 PARTIAL REMOVAL OF COLON 99930 06/21/17 RESECTION OF RIGHT LARGE INTESTINE, OPEN APPROACH [id number] 06/21/17 RESPIRATORY VENTILATION, LESS THAN 24 CONSECUTIVE HOURS 3G4444C 06/21/17 TRANSFUSE NONAUT RED BLOOD CELLS IN PERIPH VEIN, PERC 65132X9 06/21/17 Internal Medicine Assmt/Plan - Assessment Assessment: uncontrolled dm2 -severe anemia hx dvt schizophrenia htn psychosis acute renal insufficiency leukotcytosis moderate protein lara malnutrition - Plan Plan: monitor h/h monitor bun/crea ivf for hydration follow up labs in am will follow consultants recommendations continue current orders Nutritional Asmnt/Malnutr-PDOC - Dietary Evaluation Malnutrition Findings (Please click <Entered> for more info): Nutritional Asmnt/Malnutrition Start: 08/10/17 15: 46 Text: Status: Complete Freq: Document 08/10/17 15:46 LCHARSHAD (Rec: 08/10/17 16:16 [id number] [id number]) Nutritional Asmnt/Malnutrition Patient General Information Nutritional Screening High Risk Consult Diagnosis uncontrolled DM/ARF Pertinent Medical Hx/Surgical Hx DM2, anemia, renal stones Subjective Information Consult received for elevated BS. pt seen resting in bed at time of visit. Verified TF running at 60ml/hr at time of visit. Current Diet Order/ Nutrition Support IDabetisource AC 60ml/hr x 20hr Pertinent Medications glucagen, novolog, levemir, protonix, nacl 0.45% Pertinent Labs 08/10 Na 160, K 3.7, cl 115, BUN 135, Cr 2.9, glucose 265, POC 225-204 Nutritional Hx/Data Height 5 ft 3 in Height (Calculated Centimeters) 160.0 Current Weight (lbs) 102 lb 8 oz Weight (Calculated Kilograms) 46.5 Weight (Calculated Grams) 14532.2 [place] Body Weight 115 Body Mass Index (BMI) 18.1 Weight Status Underweight GI Symptoms GI Symptoms None Last BM no record Skin Integrity/Comment: pressure ulceration to coccyx Estimated Nutritional Goals BEE in Kcals: Using Current wt Calories/Kcals/Kg 27-32 Kcals Calculated 6043-0373 Protein: Using Current wt Protein g/k.2-1.4 Protein Calculated 56-66 Fluid: ml 1269-1504ml (1ml/kcal) Nutritional Problem 1. Problem Problem altered nutrition related lab values Etiology electrolytes/fluid imbalance, dx of ARF, hx of DM, Signs/Symptoms: Na 160, Cl 115, BUN 135, Cr 2. 9, glucose 265, POC 225-204 Intervention/Recommendation Comments 1. Continue with current TF regimen. It provides 1400kcal, 72g protein, 982ml free water , meeting 100% of nutritional needs 2. Monitor TF rate, tolerance, wt weekly, skin integrity and labs 3. F/U as high risk in 2-3 days, 08/11-08/12 Expected Outcomes/Goals Expected Outcomes/Goals 1. PO intake to meet at least 75% of nutritional needs via nutrition support. 2. Wt stability, skin to remain intact, labs to approach WNL.
[2017-08-12] MEDS: Pantoprazole 40 mg/Packet GT SCH (13:44)
[2017-08-12] MEDS: Dextrose 5% 1,000 ML IV SCH (13:45)
[2017-08-12] MEDS: cefTRIAXone 1 GM in Sodium Chloride 0.9% 50 ML IV SCH (21:09)
[2017-08-12] MEDS: Insulin Detemir 100 units/mL 10mL Vial SUBQ SCH (21:17)
[2017-08-13] MEDS: Dextrose 5% 1,000 ML IV SCH (00:55)
[2017-08-13 07:03] LABS: % BASOPHILS 0.3 % (0.0-2.0); % EOSINOPHILS 2.2 % (0.0-5.0); % LYMPHOCYTES 10.1 % (20.0-50.0); % MONOCYTES 5.5 % (2.0-10.0); % NEUTROPHILS 81.9 % (40.0-80.0); EOSINOPHILE ABSOLUTE 0.3 Th/cmm (0.1-0.4); HEMOGLOBIN 10.7 gm/dL (12-16); LYMPHOCYTE ABSOLUTE 1.2 Th/cmm (1.5-3.0); MEAN CELL VOLUME 85.9 fl (81-100); MEAN CORPUSCULAR HEMOGLOBIN 27.9 pg (27.0-31.0); MEAN CORPUSCULAR HGB CONC 32.4 pg (28.0-36.0); MONOCYTE ABSOLUTE 0.7 Th/cmm (0.3-1.0); NEUTROPHILE ABSOLUTE 9.8 Th/cmm (1.8-8.0); PLATELET COUNT 164 Th/cmm (150-400); RED BLOOD COUNT 3.84 Mil/cmm (3.80-5.20)
[2017-08-13 07:32] LABS: ANION GAP 8.3 (7.0-16.0); CALCIUM SERUM 9.1 mg/dL (8.6-10.3); CARBON DIOXIDE 35.9 mEq/L (21.0-31.0); CHLORIDE 112 mEq/L (98-107); CREATININE - SERUM 1.7 mg/dL (0.6-1.2); GLUCOSE 364 mg/dL (70-105); POTASSIUM SERUM 3.2 mEq/L (3.5-5.1); SODIUM SERUM 153 mEq/L (136-145)
[2017-08-13 07:37] LABS: BUN - UREA NITROGEN 85 mg/dL (7-25)
--- NOTE | 2017-08-13 08:06 | GI Progress Note ---
Subjective - Review of Systems Service Date: 08/13/17 Subjective: No new events, no overt bleeding Objective - Results Result Diagrams: 08/13/17 05:53 08/13/17 05:53 Recent Labs: Laboratory Last Values WBC 12.0 Th/cmm (4.8-10.8) H 08/13/17 05:53 RBC 3.84 Mil/cmm (3.80-5.20) 08/13/17 05:53 Hgb 10.7 gm/dL (12-16) L 08/13/17 05:53 Hct 33.0 % (41.0-60) L 08/13/17 05:53 MCV 85.9 fl (81-100) 08/13/17 05:53 MCH 27.9 pg (27.0-31.0) 08/13/17 05:53 MCHC Differential 32.4 pg (28.0-36.0) 08/13/17 05:53 RDW 16.0 % (11.5-20.0) 08/13/17 05:53 Plt Count 164 Th/cmm (150-400) 08/13/17 05:53 MPV 11.0 fl 08/13/17 05:53 Neutrophils % 81.9 % (40.0-80.0) H 08/13/17 05:53 Lymphocytes % 10.1 % (20.0-50.0) L 08/13/17 05:53 Monocytes % 5.5 % (2.0-10.0) 08/13/17 05:53 Eosinophils % 2.2 % (0.0-5.0) 08/13/17 05:53 Basophils % 0.3 % (0.0-2.0) 08/13/17 05:53 Total Retics Counted 0.8 % (0.5-1.5) 08/10/17 05:50 Absolute Retic 20.6 Th/cmm 08/10/17 05:50 Corrected Retic Count 0.4 % (0.5-1.5) L 08/10/17 05:50 Haptoglobin 433 mg/dL (34-200) H 08/10/17 05:50 PT 10.0 SECONDS (9.5-11.5) 08/10/17 05:50 INR 0.96 (0.5-1.4) 08/10/17 05:50 PTT (Actin FS) 18.3 SECONDS (26.0-38.0) L 08/10/17 05:50 Sodium 153 mEq/L (136-145) H 08/13/17 05:53 Potassium 3.2 mEq/L (3.5-5.1) L 08/13/17 05:53 Chloride 112 mEq/L (98-107) H 08/13/17 05:53 Carbon Dioxide 35.9 mEq/L (21.0-31.0) H 08/13/17 05:53 Anion Gap 8.3 (7.0-16.0) 08/13/17 05:53 BUN 85 mg/dL (7-25) H* 08/13/17 05:53 Creatinine 1.7 mg/dL (0.6-1.2) H 08/13/17 05:53 Est GFR ( Amer) TNP 08/13/17 05:53 Est GFR (Non-Af Amer) TNP 08/13/17 05:53 BUN/Creatinine Ratio 50.0 08/13/17 05:53 Glucose 364 mg/dL (70-105) H 08/13/17 05:53 POC Glucose 326 MG/DL (70 - 105) H 08/13/17 05:51 Hemoglobin A1c % 6.6 % (4.0-6.0) H 08/09/17 18:20 Whole Bld Lactic Acid 1.89 mmol/L (0.60-1.99) 08/09/17 18:46 Calcium 9.1 mg/dL (8.6-10.3) 08/13/17 05:53 Magnesium 2.9 mg/dL (1.9-2.7) H 08/11/17 06:10 Iron 26 ug/dL (27-139) L 08/10/17 05:50 TIBC 151 ug/dL (250-450) L 08/10/17 05:50 Iron Saturation 17 % (15-55) 08/10/17 05:50 Unsaturated IBC 125 ug/dL (118-369) 08/10/17 05:50 Ferritin 917 ng/mL (15-150) H 08/10/17 05:50 Total Bilirubin 0.2 mg/dL (0.3-1.0) L 08/10/17 05:50 AST 12 U/L (13-39) L 08/10/17 05:50 ALT 7 U/L (7-52) 08/10/17 05:50 Alkaline Phosphatase 49 U/L (34-104) 08/10/17 05:50 Ammonia 38 umol/L (16-53) 08/10/17 05:50 Creatine Kinase 86 U/L (30-223) 08/09/17 18:20 Troponin I 0.12 ng/mL (0.01-0.05) H* D 08/09/17 18:20 B-Natriuretic Peptide 277.0 pg/mL (5.0-100.0) H 08/12/17 05:00 Total Protein 6.6 gm/dL (6.0-8.3) 08/10/17 05:50 Albumin 2.7 gm/dL (3.7-5.3) L 08/10/17 05:50 Globulin 3.9 gm/dL 08/10/17 05:50 Albumin/Globulin Ratio 0.7 (1.0-1.8) L 08/10/17 05:50 Triglycerides 243 mg/dL (<150) H 08/09/17 18:20 Cholesterol 129 mg/dL (<200) 08/09/17 18:20 LDL Cholesterol Direct 56 mg/dL (75-193) L 08/09/17 18:20 HDL Cholesterol 24 mg/dL (23-92) 08/09/17 18:20 Vitamin B12 770 pg/mL (232-1245) 08/10/17 05:50 Folic Acid >20.0 ng/mL (>3.0) 08/10/17 05:50 TSH 1.46 uIU/ml (0.34-5.60) 08/10/17 05:50 Urine Source [place] 08/09/17 18:25 Urine Color YELLOW 08/09/17 18:25 Urine Clarity CLEAR (CLEAR) 08/09/17 18:25 Urine pH 6.0 (4.6 - 8.0) 08/09/17 18:25 Ur Specific [place] 1.010 (1.005-1.030) 08/09/17 18:25 Urine Protein 100 mg/dL (NEGATIVE) H 08/09/17 18:25 Urine Glucose (UA) 500 mg/dL (NEGATIVE) H 08/09/17 18:25 Urine Ketones NEGATIVE mg/dL (NEGATIVE) 08/09/17 18:25 Urine Blood TRACE (NEGATIVE) 08/09/17 18:25 Urine Nitrate NEGATIVE (NEGATIVE) 08/09/17 18:25 Urine Bilirubin NEGATIVE (NEGATIVE) 08/09/17 18:25 Urine Urobilinogen 0.2 E.U./dL (0.2 - 1.0) 08/09/17 18:25 Ur Leukocyte Esterase NEGATIVE (NEGATIVE) 08/09/17 18:25 Urine RBC 2-5 /hpf (0-5) 08/09/17 18:25 Urine WBC NONE SEEN /hpf (0-5) 08/09/17 18:25 Ur Epithelial Cells NONE SEEN /lpf (FEW) 08/09/17 18:25 Urine Bacteria NONE SEEN /hpf (NONE SEEN) 08/09/17 18:25 Blood Type O POSITIVE 08/10/17 10:40 Antibody Screen NEGATIVE 08/10/17 10:40 Crossmatch See Detail 08/10/17 10:40 - Physical Exam Vitals and I&O: Vital Signs Temp 97.2 F 08/13/17 04:00 Pulse 82 08/13/17 07:39 Resp 16 08/13/17 07:39 BP 140/68 08/13/17 04:00 Pulse Ox 99 08/13/17 07:39 Intake & Output 08/12/17 08/13/17 08/13/17 18:59 06:59 18:59 Intake Total 1663.333 Output Total 700 Balance 963.333 Weight (lbs) 49.895 kg 49.895 kg Intake: Intake, IV Amount 943.333 Dextrose 5% 1,000 ml @ 80 893.333 mls/hr IV .[id number] [facility] Rx#:[id number] cefTRIAXone 1 gm In 50 Sodium Chloride 0.9% 50 ml @ 100 mls/hr IV Q24HR [facility] Rx#:[id number] Tube Feeding 600 Other 120 Output: Urine 700 Active Medications: Current Medications Acetaminophen (Tylenol 650mg/20.3ml Suspension) 640 mg GT Q4H PRN PRN Reason: Temp > 100.5 Stop: 10/08/17 20:49 Al Hydrox/Mg Hydrox/Simethicone (Maalox) 30 ml GT Q6H PRN PRN Reason: GI UPSET Stop: 10/08/17 20:11 Albuterol/Ipratropium (Duoneb Neb) 3 ml HHN Q2HRT PRN PRN Reason: Shortness of Breath Stop: 10/08/17 20:11 Amlodipine Besylate (Norvasc) 10 mg GT DAILY [facility] Stop: 10/09/17 08:59 Last Admin: 08/12/17 09:23 Dose: 10 mg Glucagon (Glucagen) 1 mg IM PRN PRN PRN Reason: HYPOGLYCEMIA Stop: 10/08/17 20:59 Guaifenesin (Robitussin) 200 mg PO Q4HR PRN PRN Reason: Cough or Congestion Stop: 10/08/17 20:14 Haloperidol Decanoate (Haldol Dec) 25 mg IM [id number] [facility] Stop: 10/08/17 20:59 Last Admin: 08/12/17 21:10 Dose: Not Given Hydralazine HCl (Apresoline) 50 mg PO TID [facility] Stop: 10/11/17 12:43 Last Admin: 08/12/17 21:08 Dose: 50 mg Ceftriaxone Sodium 1 gm/ (Sodium Chloride) 50 mls @ 100 mls/hr IV Q24HR [facility] Stop: 10/08/17 21:59 Last Infusion: 08/12/17 22:32 Dose: Infused Dextrose (D5w) 1,000 mls @ 80 mls/hr IV .[id number] [facility] Stop: 10/11/17 12:44 Last Admin: 08/13/17 00:55 Dose: 80 mls/hr Insulin Aspart (Novolog) 0 units SUBQ ACHS ED PRN Reason: Protocol Stop: 10/08/17 20:59 Last Admin: 08/12/17 21:25 Dose: 4 units Insulin Detemir (Levemir Insulin) 10 units SUBQ HS ED PRN Reason: Protocol Stop: 10/08/17 20:59 Last Admin: 08/12/17 21:17 Dose: 10 units Isosorbide Dinitrate (Isordil) 10 mg PO TID [facility] Stop: 10/10/17 13:59 Last Admin: 08/12/17 21:08 Dose: 10 mg Nitroglycerin (Nitrostat) 0.4 mg SL Q5MIN PRN PRN Reason: Chest Pain Stop: 10/08/17 20:14 Ondansetron HCl (Zofran Odt) 4 mg PO Q6H PRN PRN Reason: Nausea / Vomiting Stop: 10/08/17 20:59 Ondansetron HCl (Zofran) 4 mg IV Q8H PRN PRN Reason: Nausea / Vomiting Stop: 10/08/17 20:14 Pantoprazole Sodium (Protonix) 40 mg GT 1200 [facility] Stop: 10/09/17 11:59 Last Admin: 08/12/17 13:44 Dose: 40 mg General: Alert HEENT: Atraumatic Neck: Supple Cardiovascular: Regular rate Abdomen: Bowel sounds, Soft, no Tender, no Hepatomegaly, no Rebound, no Mass, no Guarding, no Obese Extremities: no Cyanosis - Procedures Procedures: Procedures Procedure Code Date EGD PLACE GASTROSTOMY TUBE 51627 06/21/17 EXCISION OF ASCENDING COLON, ENDO, DIAGN [id number] 06/21/17 EXCISION OF CECUM, ENDO, DIAGN [id number] 06/21/17 EXCISION OF SIGMOID COLON, ENDO, DIAGN [id number] 06/21/17 EXCISION OF STOMACH, ENDO, DIAGN [id number] 06/21/17 INSERTION OF FEEDING DEVICE INTO STOMACH, PERC APPROACH 7NS15GE 06/21/17 INSERTION OF INFUSION DEV INTO SUP VENA CAVA, PERC APPROACH 20BO57X 06/21/17 INTRODUCTION OF NUTRITIONAL INTO CENTRAL VEIN, PERC APPROACH [id number] 06/21/17 PARTIAL REMOVAL OF COLON 57524 06/21/17 RESECTION OF RIGHT LARGE INTESTINE, OPEN APPROACH [id number] 06/21/17 RESPIRATORY VENTILATION, LESS THAN 24 CONSECUTIVE HOURS [id number] 06/21/17 TRANSFUSE NONAUT RED BLOOD CELLS IN PERIPH VEIN, PERC 85705N9 06/21/17 Assessment/Plan - Problem List Patient Problems: All Active Problems HYPERGLYCEMIA (Acute) - Assessment Assessment: 76 YO FEMALE WITH RECENT EGD SHOWING MW TEAR AND GASTRIC ULCER ALSO HAD COLO SHOWING POLYPS, DIVERTICULOSIS, HEMORRHOIDS. 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 NO OVERT GI BLEEDING Pt has had EGD x 3 and colonoscopy x 1 at this point. Her anemia is unlikely to be due to ongoing GI bleeding. Bleeding scan negative. 1. FOLLOW H/H 2. iron supplementation 3. cont tube feeding 4. [place] any future endoscopy for hemostasis given she had had 4 endoscopic exams in the past few months
[2017-08-13] MEDS: INSULIN ASPART, RECOMBINANT 100 UNITS/ML SUBQ SCH ×4 (08:53→22:17)
[2017-08-13] MEDS: Pantoprazole 40 mg/Packet GT SCH ×2 (12:01→16:57)
[2017-08-13] MEDS ORDERED: Dextrose 5% 1,000 ML IV SCH (13:10)
--- NOTE | 2017-08-13 15:14 | Internal Medicine Prog Note ---
Internal Medicine Subjective - Subjective Patient seen and examined:: with staff, chart reviewed Patient is:: awake, non-verbal, non-interactive Patient Complaints of:: congestion Per staff patient has:: no adverse event, poor appetite, agitated, combative, noncompliant, confused, tolerating meds Internal Medicine Objective - Results Result Diagrams: 08/13/17 05:53 08/13/17 05:53 Recent Labs: Laboratory Last Values WBC 12.0 Th/cmm (4.8-10.8) H 08/13/17 05:53 RBC 3.84 Mil/cmm (3.80-5.20) 08/13/17 05:53 Hgb 10.7 gm/dL (12-16) L 08/13/17 05:53 Hct 33.0 % (41.0-60) L 08/13/17 05:53 MCV 85.9 fl (81-100) 08/13/17 05:53 MCH 27.9 pg (27.0-31.0) 08/13/17 05:53 MCHC Differential 32.4 pg (28.0-36.0) 08/13/17 05:53 RDW 16.0 % (11.5-20.0) 08/13/17 05:53 Plt Count 164 Th/cmm (150-400) 08/13/17 05:53 MPV 11.0 fl 08/13/17 05:53 Neutrophils % 81.9 % (40.0-80.0) H 08/13/17 05:53 Lymphocytes % 10.1 % (20.0-50.0) L 08/13/17 05:53 Monocytes % 5.5 % (2.0-10.0) 08/13/17 05:53 Eosinophils % 2.2 % (0.0-5.0) 08/13/17 05:53 Basophils % 0.3 % (0.0-2.0) 08/13/17 05:53 Total Retics Counted 0.8 % (0.5-1.5) 08/10/17 05:50 Absolute Retic 20.6 Th/cmm 08/10/17 05:50 Corrected Retic Count 0.4 % (0.5-1.5) L 08/10/17 05:50 Haptoglobin 433 mg/dL (34-200) H 08/10/17 05:50 PT 10.0 SECONDS (9.5-11.5) 08/10/17 05:50 INR 0.96 (0.5-1.4) 08/10/17 05:50 PTT (Actin FS) 18.3 SECONDS (26.0-38.0) L 08/10/17 05:50 Sodium 153 mEq/L (136-145) H 08/13/17 05:53 Potassium 3.2 mEq/L (3.5-5.1) L 08/13/17 05:53 Chloride 112 mEq/L (98-107) H 08/13/17 05:53 Carbon Dioxide 35.9 mEq/L (21.0-31.0) H 08/13/17 05:53 Anion Gap 8.3 (7.0-16.0) 08/13/17 05:53 BUN 85 mg/dL (7-25) H* 08/13/17 05:53 Creatinine 1.7 mg/dL (0.6-1.2) H 08/13/17 05:53 Est GFR ( Amer) TNP 08/13/17 05:53 Est GFR (Non-Af Amer) TNP 08/13/17 05:53 BUN/Creatinine Ratio 50.0 08/13/17 05:53 Glucose 364 mg/dL (70-105) H 08/13/17 05:53 POC Glucose 262 MG/DL (70 - 105) H 08/13/17 11:55 Hemoglobin A1c % 6.6 % (4.0-6.0) H 08/09/17 18:20 Whole Bld Lactic Acid 1.89 mmol/L (0.60-1.99) 08/09/17 18:46 Calcium 9.1 mg/dL (8.6-10.3) 08/13/17 05:53 Magnesium 2.9 mg/dL (1.9-2.7) H 08/11/17 06:10 Iron 26 ug/dL (27-139) L 08/10/17 05:50 TIBC 151 ug/dL (250-450) L 08/10/17 05:50 Iron Saturation 17 % (15-55) 08/10/17 05:50 Unsaturated IBC 125 ug/dL (118-369) 08/10/17 05:50 Ferritin 917 ng/mL (15-150) H 08/10/17 05:50 Total Bilirubin 0.2 mg/dL (0.3-1.0) L 08/10/17 05:50 AST 12 U/L (13-39) L 08/10/17 05:50 ALT 7 U/L (7-52) 08/10/17 05:50 Alkaline Phosphatase 49 U/L (34-104) 08/10/17 05:50 Ammonia 38 umol/L (16-53) 08/10/17 05:50 Creatine Kinase 86 U/L (30-223) 08/09/17 18:20 Troponin I 0.12 ng/mL (0.01-0.05) H* D 08/09/17 18:20 B-Natriuretic Peptide 277.0 pg/mL (5.0-100.0) H 08/12/17 05:00 Total Protein 6.6 gm/dL (6.0-8.3) 08/10/17 05:50 Albumin 2.7 gm/dL (3.7-5.3) L 08/10/17 05:50 Globulin 3.9 gm/dL 08/10/17 05:50 Albumin/Globulin Ratio 0.7 (1.0-1.8) L 08/10/17 05:50 Triglycerides 243 mg/dL (<150) H 08/09/17 18:20 Cholesterol 129 mg/dL (<200) 08/09/17 18:20 LDL Cholesterol Direct 56 mg/dL (75-193) L 08/09/17 18:20 HDL Cholesterol 24 mg/dL (23-92) 08/09/17 18:20 Vitamin B12 770 pg/mL (232-1245) 08/10/17 05:50 Folic Acid >20.0 ng/mL (>3.0) 08/10/17 05:50 TSH 1.46 uIU/ml (0.34-5.60) 08/10/17 05:50 Urine Source [place] 08/09/17 18:25 Urine Color YELLOW 08/09/17 18:25 Urine Clarity CLEAR (CLEAR) 08/09/17 18:25 Urine pH 6.0 (4.6 - 8.0) 08/09/17 18:25 Ur Specific [place] 1.010 (1.005-1.030) 08/09/17 18:25 Urine Protein 100 mg/dL (NEGATIVE) H 08/09/17 18:25 Urine Glucose (UA) 500 mg/dL (NEGATIVE) H 08/09/17 18:25 Urine Ketones NEGATIVE mg/dL (NEGATIVE) 08/09/17 18:25 Urine Blood TRACE (NEGATIVE) 08/09/17 18:25 Urine Nitrate NEGATIVE (NEGATIVE) 08/09/17 18:25 Urine Bilirubin NEGATIVE (NEGATIVE) 08/09/17 18:25 Urine Urobilinogen 0.2 E.U./dL (0.2 - 1.0) 08/09/17 18:25 Ur Leukocyte Esterase NEGATIVE (NEGATIVE) 08/09/17 18:25 Urine RBC 2-5 /hpf (0-5) 08/09/17 18:25 Urine WBC NONE SEEN /hpf (0-5) 08/09/17 18:25 Ur Epithelial Cells NONE SEEN /lpf (FEW) 08/09/17 18:25 Urine Bacteria NONE SEEN /hpf (NONE SEEN) 08/09/17 18:25 Stool Occult Blood POSITIVE (NEGATIVE) H 08/13/17 08:00 Blood Type O POSITIVE 08/10/17 10:40 Antibody Screen NEGATIVE 08/10/17 10:40 Crossmatch See Detail 08/10/17 10:40 - Physical Exam Vitals and I&O: Vital Signs Temp 97.7 F 08/13/17 08:22 Pulse 79 08/13/17 13:49 Resp 18 08/13/17 08:22 BP 106/70 08/13/17 13:49 Pulse Ox 100 08/13/17 08:22 Intake & Output 08/12/17 08/13/17 08/13/17 18:59 06:59 18:59 Intake Total 1663.333 Output Total 700 Balance 963.333 Weight (lbs) 49.895 kg 49.895 kg Intake: Intake, IV Amount 943.333 Dextrose 5% 1,000 ml @ 80 893.333 mls/hr IV .[id number] [facility] Rx#:[id number] cefTRIAXone 1 gm In 50 Sodium Chloride 0.9% 50 ml @ 100 mls/hr IV Q24HR [facility] Rx#:[id number] Tube Feeding 600 Other 120 Output: Urine 700 Other: Stool Characteristics Formed Active Medications: Current Medications Acetaminophen (Tylenol 650mg/20.3ml Suspension) 640 mg GT Q4H PRN PRN Reason: Temp > 100.5 Stop: 10/08/17 20:49 Al Hydrox/Mg Hydrox/Simethicone (Maalox) 30 ml GT Q6H PRN PRN Reason: GI UPSET Stop: 10/08/17 20:11 Albuterol/Ipratropium (Duoneb Neb) 3 ml HHN Q2HRT PRN PRN Reason: Shortness of Breath Stop: 10/08/17 20:11 Amlodipine Besylate (Norvasc) 10 mg GT DAILY [facility] Stop: 10/09/17 08:59 Last Admin: 08/13/17 09:27 Dose: 10 mg Glucagon (Glucagen) 1 mg IM PRN PRN PRN Reason: HYPOGLYCEMIA Stop: 10/08/17 20:59 Guaifenesin (Robitussin) 200 mg PO Q4HR PRN PRN Reason: Cough or Congestion Stop: 10/08/17 20:14 Haloperidol Decanoate (Haldol Dec) 25 mg IM [id number] [facility] Stop: 10/08/17 20:59 Last Admin: 08/12/17 21:10 Dose: Not Given Hydralazine HCl (Apresoline) 50 mg PO TID [facility] Stop: 10/11/17 12:43 Last Admin: 08/13/17 13:49 Dose: 50 mg Ceftriaxone Sodium 1 gm/ (Sodium Chloride) 50 mls @ 100 mls/hr IV Q24HR [facility] Stop: 10/08/17 21:59 Last Infusion: 08/12/17 22:32 Dose: Infused Dextrose (D5w) 1,000 mls @ 60 mls/hr IV .[id number] [facility] Stop: 10/12/17 13:09 Last Admin: 08/13/17 13:49 Dose: 60 mls/hr Insulin Aspart (Novolog) 0 units SUBQ ACHS ED PRN Reason: Protocol Stop: 10/08/17 20:59 Last Admin: 08/13/17 12:01 Dose: 4 units Insulin Detemir (Levemir Insulin) 10 units SUBQ HS ED PRN Reason: Protocol Stop: 10/08/17 20:59 Last Admin: 08/12/17 21:17 Dose: 10 units Isosorbide Dinitrate (Isordil) 10 mg PO TID [facility] Stop: 10/10/17 13:59 Last Admin: 08/13/17 13:49 Dose: 10 mg Nitroglycerin (Nitrostat) 0.4 mg SL Q5MIN PRN PRN Reason: Chest Pain Stop: 10/08/17 20:14 Ondansetron HCl (Zofran Odt) 4 mg PO Q6H PRN PRN Reason: Nausea / Vomiting Stop: 10/08/17 20:59 Ondansetron HCl (Zofran) 4 mg IV Q8H PRN PRN Reason: Nausea / Vomiting Stop: 10/08/17 20:14 Pantoprazole Sodium (Protonix) 40 mg GT BID [facility] Stop: 10/12/17 16:59 General: demented HEENT: NC/AT, PERRLA Neck: Supple Lungs: CTAB, congested, rales Cardiovascular: RRR, Normal S1, Normal S2, without murmur Abdomen: soft, non-tender, globular, positive bowel sound Extremities: excoriation, deformity Neurological: no change, muscle weakness, bedbound, spastic - Procedures Procedures: Procedures Procedure Code Date EGD PLACE GASTROSTOMY TUBE 01730 06/21/17 EXCISION OF ASCENDING COLON, ENDO, DIAGN [id number] 06/21/17 EXCISION OF CECUM, ENDO, DIAGN [id number] 06/21/17 EXCISION OF SIGMOID COLON, ENDO, DIAGN 3QGA6MY 06/21/17 EXCISION OF STOMACH, ENDO, DIAGN [id number] 06/21/17 INSERTION OF FEEDING DEVICE INTO STOMACH, PERC APPROACH [id number] 06/21/17 INSERTION OF INFUSION DEV INTO SUP VENA CAVA, PERC APPROACH 31OF91K 06/21/17 INTRODUCTION OF NUTRITIONAL INTO CENTRAL VEIN, PERC APPROACH 0L1416D 06/21/17 PARTIAL REMOVAL OF COLON 07170 06/21/17 RESECTION OF RIGHT LARGE INTESTINE, OPEN APPROACH 4JWO0XK 06/21/17 RESPIRATORY VENTILATION, LESS THAN 24 CONSECUTIVE HOURS [id number] 06/21/17 TRANSFUSE NONAUT RED BLOOD CELLS IN PERIPH VEIN, PERC 13139T2 06/21/17 Internal Medicine Assmt/Plan - Assessment Assessment: - Assessment Assessment: uncontrolled dm2 -severe anemia hx dvt schizophrenia htn psychosis acute renal insufficiency leukotcytosis moderate protein lara malnutrition - Plan Plan: monitor h/h monitor bun/crea ivf for hydration follow up labs in am will follow consultants recommendations continue current orders - Plan Plan: cpm colleen rn Nutritional Asmnt/Malnutr-PDOC - Dietary Evaluation Malnutrition Findings (Please click <Entered> for more info): Nutritional Asmnt/Malnutrition Start: 08/10/17 15: 46 Text: Status: Complete Freq: Document 08/10/17 15:46 LCHARSHAD (Rec: 08/10/17 16:16 LCHENG [email or web address]) Nutritional Asmnt/Malnutrition Patient General Information Nutritional Screening High Risk Consult Diagnosis uncontrolled DM/ARF Pertinent Medical Hx/Surgical Hx DM2, anemia, renal stones Subjective Information Consult received for elevated BS. pt seen resting in bed at time of visit. Verified TF running at 60ml/hr at time of visit. Current Diet Order/ Nutrition Support IDabetisource AC 60ml/hr x 20hr Pertinent Medications glucagen, novolog, levemir, protonix, nacl 0.45% Pertinent Labs 08/10 Na 160, K 3.7, cl 115, BUN 135, Cr 2.9, glucose 265, POC 225-204 Nutritional Hx/Data Height 1.6 m Height (Calculated Centimeters) 160.0 Current Weight (lbs) 46.493 kg Weight (Calculated Kilograms) 46.5 Weight (Calculated Grams) 17241.2 [place] Body Weight 115 Body Mass Index (BMI) 18.1 Weight Status Underweight GI Symptoms GI Symptoms None Last BM no record Skin Integrity/Comment: pressure ulceration to coccyx Estimated Nutritional Goals BEE in Kcals: Using Current wt Calories/Kcals/Kg 27-32 Kcals Calculated 5695-9544 Protein: Using Current wt Protein g/k.2-1.4 Protein Calculated 56-66 Fluid: ml 1269-1504ml (1ml/kcal) Nutritional Problem 1. Problem Problem altered nutrition related lab values Etiology electrolytes/fluid imbalance, dx of ARF, hx of DM, Signs/Symptoms: Na 160, Cl 115, BUN 135, Cr 2. 9, glucose 265, POC 225-204 Intervention/Recommendation Comments 1. Continue with current TF regimen. It provides 1400kcal, 72g protein, 982ml free water , meeting 100% of nutritional needs 2. Monitor TF rate, tolerance, wt weekly, skin integrity and labs 3. F/U as high risk in 2-3 days, 08/11-08/12 Expected Outcomes/Goals Expected Outcomes/Goals 1. PO intake to meet at least 75% of nutritional needs via nutrition support. 2. Wt stability, skin to remain intact, labs to approach WNL.
[2017-08-13] MEDS: cefTRIAXone 1 GM in Sodium Chloride 0.9% 50 ML IV SCH (21:04)
[2017-08-13] MEDS: Insulin Detemir 100 units/mL 10mL Vial SUBQ SCH (21:14)
[2017-08-14 06:58] LABS: % BASOPHILS 0.3 % (0.0-2.0); % LYMPHOCYTES 11.6 % (20.0-50.0); % MONOCYTES 5.6 % (2.0-10.0); % NEUTROPHILS 80.5 % (40.0-80.0); EOSINOPHILE ABSOLUTE 0.2 Th/cmm (0.1-0.4); HEMATOCRIT 35.7 % (41.0-60); HEMOGLOBIN 11.3 gm/dL (12-16); LYMPHOCYTE ABSOLUTE 1.4 Th/cmm (1.5-3.0); MEAN CELL VOLUME 86.2 fl (81-100); MEAN CORPUSCULAR HEMOGLOBIN 27.2 pg (27.0-31.0); MEAN CORPUSCULAR HGB CONC 31.5 pg (28.0-36.0); MONOCYTE ABSOLUTE 0.7 Th/cmm (0.3-1.0); NEUTROPHILE ABSOLUTE 9.8 Th/cmm (1.8-8.0); PLATELET COUNT 175 Th/cmm (150-400); RED BLOOD COUNT 4.14 Mil/cmm (3.80-5.20); RED CELL DISTRIBUTION WIDTH 15.9 % (11.5-20.0)
[2017-08-14 07:03] LABS: WHITE BLOOD COUNT 12.1 Th/cmm (4.8-10.8)
[2017-08-14 07:06] LABS: ANION GAP 7.7 (7.0-16.0); BUN - UREA NITROGEN 75 mg/dL (7-25); CALCIUM SERUM 8.9 mg/dL (8.6-10.3); CARBON DIOXIDE 36.5 mEq/L (21.0-31.0); CHLORIDE 105 mEq/L (98-107); CREATININE - SERUM 1.5 mg/dL (0.6-1.2); GLUCOSE 261 mg/dL (70-105); POTASSIUM SERUM 3.2 mEq/L (3.5-5.1); SODIUM SERUM 146 mEq/L (136-145)
[2017-08-14] MEDS: INSULIN ASPART, RECOMBINANT 100 UNITS/ML SUBQ SCH ×4 (08:01→22:40)
[2017-08-14] MEDS: Pantoprazole 40 mg/Packet GT SCH ×2 (08:35→17:35)
[2017-08-14] MEDS ORDERED: Potassium Chloride 40 MEQ, Lidocaine 1% 20mL Vial 25 MG in Sodium Chloride 0.9% 250 ML IV ONE (10:22)
--- NOTE | 2017-08-14 10:24 | Internal Medicine Prog Note ---
Internal Medicine Subjective - Subjective Patient seen and examined:: with staff, chart reviewed Patient is:: awake, non-verbal, non-interactive Patient Complaints of:: congestion Per staff patient has:: no adverse event, poor appetite, agitated, combative, noncompliant, confused, tolerating meds Internal Medicine Objective - Results Result Diagrams: 08/14/17 06:00 08/14/17 06:00 Recent Labs: Laboratory Last Values WBC 12.1 Th/cmm (4.8-10.8) H 08/14/17 06:00 RBC 4.14 Mil/cmm (3.80-5.20) 08/14/17 06:00 Hgb 11.3 gm/dL (12-16) L 08/14/17 06:00 Hct 35.7 % (41.0-60) L 08/14/17 06:00 MCV 86.2 fl (81-100) 08/14/17 06:00 MCH 27.2 pg (27.0-31.0) 08/14/17 06:00 MCHC Differential 31.5 pg (28.0-36.0) 08/14/17 06:00 RDW 15.9 % (11.5-20.0) 08/14/17 06:00 Plt Count 175 Th/cmm (150-400) 08/14/17 06:00 MPV 11.0 fl 08/14/17 06:00 Neutrophils % 80.5 % (40.0-80.0) H 08/14/17 06:00 Lymphocytes % 11.6 % (20.0-50.0) L 08/14/17 06:00 Monocytes % 5.6 % (2.0-10.0) 08/14/17 06:00 Eosinophils % 2.0 % (0.0-5.0) 08/14/17 06:00 Basophils % 0.3 % (0.0-2.0) 08/14/17 06:00 Total Retics Counted 0.8 % (0.5-1.5) 08/10/17 05:50 Absolute Retic 20.6 Th/cmm 08/10/17 05:50 Corrected Retic Count 0.4 % (0.5-1.5) L 08/10/17 05:50 Haptoglobin 433 mg/dL (34-200) H 08/10/17 05:50 PT 10.0 SECONDS (9.5-11.5) 08/10/17 05:50 INR 0.96 (0.5-1.4) 08/10/17 05:50 PTT (Actin FS) 18.3 SECONDS (26.0-38.0) L 08/10/17 05:50 Sodium 146 mEq/L (136-145) H 08/14/17 06:00 Potassium 3.2 mEq/L (3.5-5.1) L 08/14/17 06:00 Chloride 105 mEq/L (98-107) 08/14/17 06:00 Carbon Dioxide 36.5 mEq/L (21.0-31.0) H 08/14/17 06:00 Anion Gap 7.7 (7.0-16.0) 08/14/17 06:00 BUN 75 mg/dL (7-25) H 08/14/17 06:00 Creatinine 1.5 mg/dL (0.6-1.2) H 08/14/17 06:00 Est GFR ( Amer) TNP 08/14/17 06:00 Est GFR (Non-Af Amer) TNP 08/14/17 06:00 BUN/Creatinine Ratio 50.0 08/14/17 06:00 Glucose 261 mg/dL (70-105) H 08/14/17 06:00 POC Glucose 235 MG/DL (70 - 105) H 08/14/17 06:32 Hemoglobin A1c % 6.6 % (4.0-6.0) H 08/09/17 18:20 Whole Bld Lactic Acid 1.89 mmol/L (0.60-1.99) 08/09/17 18:46 Calcium 8.9 mg/dL (8.6-10.3) 08/14/17 06:00 Magnesium 2.9 mg/dL (1.9-2.7) H 08/11/17 06:10 Iron 26 ug/dL (27-139) L 08/10/17 05:50 TIBC 151 ug/dL (250-450) L 08/10/17 05:50 Iron Saturation 17 % (15-55) 08/10/17 05:50 Unsaturated IBC 125 ug/dL (118-369) 08/10/17 05:50 Ferritin 917 ng/mL (15-150) H 08/10/17 05:50 Total Bilirubin 0.2 mg/dL (0.3-1.0) L 08/10/17 05:50 AST 12 U/L (13-39) L 08/10/17 05:50 ALT 7 U/L (7-52) 08/10/17 05:50 Alkaline Phosphatase 49 U/L (34-104) 08/10/17 05:50 Ammonia 38 umol/L (16-53) 08/10/17 05:50 Creatine Kinase 86 U/L (30-223) 08/09/17 18:20 Troponin I 0.12 ng/mL (0.01-0.05) H* D 08/09/17 18:20 B-Natriuretic Peptide 413.0 pg/mL (5.0-100.0) H 08/14/17 06:00 Total Protein 6.6 gm/dL (6.0-8.3) 08/10/17 05:50 Albumin 2.7 gm/dL (3.7-5.3) L 08/10/17 05:50 Globulin 3.9 gm/dL 08/10/17 05:50 Albumin/Globulin Ratio 0.7 (1.0-1.8) L 08/10/17 05:50 Triglycerides 243 mg/dL (<150) H 08/09/17 18:20 Cholesterol 129 mg/dL (<200) 08/09/17 18:20 LDL Cholesterol Direct 56 mg/dL (75-193) L 08/09/17 18:20 HDL Cholesterol 24 mg/dL (23-92) 08/09/17 18:20 Vitamin B12 770 pg/mL (232-1245) 08/10/17 05:50 Folic Acid >20.0 ng/mL (>3.0) 08/10/17 05:50 TSH 1.46 uIU/ml (0.34-5.60) 08/10/17 05:50 Urine Source [place] 08/09/17 18:25 Urine Color YELLOW 08/09/17 18:25 Urine Clarity CLEAR (CLEAR) 08/09/17 18:25 Urine pH 6.0 (4.6 - 8.0) 08/09/17 18:25 Ur Specific [place] 1.010 (1.005-1.030) 08/09/17 18:25 Urine Protein 100 mg/dL (NEGATIVE) H 08/09/17 18:25 Urine Glucose (UA) 500 mg/dL (NEGATIVE) H 08/09/17 18:25 Urine Ketones NEGATIVE mg/dL (NEGATIVE) 08/09/17 18:25 Urine Blood TRACE (NEGATIVE) 08/09/17 18:25 Urine Nitrate NEGATIVE (NEGATIVE) 08/09/17 18:25 Urine Bilirubin NEGATIVE (NEGATIVE) 08/09/17 18:25 Urine Urobilinogen 0.2 E.U./dL (0.2 - 1.0) 08/09/17 18:25 Ur Leukocyte Esterase NEGATIVE (NEGATIVE) 08/09/17 18:25 Urine RBC 2-5 /hpf (0-5) 08/09/17 18:25 Urine WBC NONE SEEN /hpf (0-5) 08/09/17 18:25 Ur Epithelial Cells NONE SEEN /lpf (FEW) 08/09/17 18:25 Urine Bacteria NONE SEEN /hpf (NONE SEEN) 08/09/17 18:25 Stool Occult Blood POSITIVE (NEGATIVE) H 08/13/17 08:00 Blood Type O POSITIVE 08/10/17 10:40 Antibody Screen NEGATIVE 08/10/17 10:40 Crossmatch See Detail 08/10/17 10:40 - Physical Exam Vitals and I&O: Vital Signs Temp 96.7 F 08/14/17 07:42 Pulse 77 08/14/17 08:35 Resp 18 08/14/17 07:42 BP 157/76 08/14/17 08:35 Pulse Ox 95 08/14/17 07:42 Intake & Output 08/13/17 08/14/17 08/14/17 18:59 06:59 18:59 Intake Total 720 Output Total 650 450 Balance -650 270 Weight (lbs) 50.802 kg 53.977 kg Intake: Tube Feeding 720 Output: Urine 650 450 Other: # Bowel Movements 2 4 Stool Characteristics Formed Active Medications: Current Medications Acetaminophen (Tylenol 650mg/20.3ml Suspension) 640 mg GT Q4H PRN PRN Reason: Temp > 100.5 Stop: 10/08/17 20:49 Al Hydrox/Mg Hydrox/Simethicone (Maalox) 30 ml GT Q6H PRN PRN Reason: GI UPSET Stop: 10/08/17 20:11 Albuterol/Ipratropium (Duoneb Neb) 3 ml HHN Q2HRT PRN PRN Reason: Shortness of Breath Stop: 10/08/17 20:11 Amlodipine Besylate (Norvasc) 10 mg GT DAILY [facility] Stop: 10/09/17 08:59 Last Admin: 08/14/17 08:35 Dose: 10 mg Glucagon (Glucagen) 1 mg IM PRN PRN PRN Reason: HYPOGLYCEMIA Stop: 10/08/17 20:59 Guaifenesin (Robitussin) 200 mg PO Q4HR PRN PRN Reason: Cough or Congestion Stop: 10/08/17 20:14 Haloperidol Decanoate (Haldol Dec) 25 mg IM [id number] [facility] Stop: 10/08/17 20:59 Last Admin: 08/12/17 21:10 Dose: Not Given Hydralazine HCl (Apresoline) 50 mg PO TID [facility] Stop: 10/11/17 12:43 Last Admin: 08/14/17 08:34 Dose: 50 mg Ceftriaxone Sodium 1 gm/ (Sodium Chloride) 50 mls @ 100 mls/hr IV Q24HR [facility] Stop: 10/08/17 21:59 Last Admin: 08/13/17 21:04 Dose: 100 mls/hr Dextrose (D5w) 1,000 mls @ 60 mls/hr IV .[id number] [facility] Stop: 10/12/17 13:09 Last Admin: 08/13/17 13:49 Dose: 60 mls/hr Insulin Aspart (Novolog) 0 units SUBQ ACHS ED PRN Reason: Protocol Stop: 10/08/17 20:59 Last Admin: 08/14/17 08:01 Dose: 2 units Insulin Detemir (Levemir Insulin) 10 units SUBQ HS [facility] PRN Reason: Protocol Stop: 10/08/17 20:59 Last Admin: 08/13/17 21:14 Dose: 10 units Isosorbide Dinitrate (Isordil) 10 mg PO TID [facility] Stop: 10/10/17 13:59 Last Admin: 08/14/17 08:35 Dose: 10 mg Nitroglycerin (Nitrostat) 0.4 mg SL Q5MIN PRN PRN Reason: Chest Pain Stop: 10/08/17 20:14 Ondansetron HCl (Zofran Odt) 4 mg PO Q6H PRN PRN Reason: Nausea / Vomiting Stop: 10/08/17 20:59 Ondansetron HCl (Zofran) 4 mg IV Q8H PRN PRN Reason: Nausea / Vomiting Stop: 10/08/17 20:14 Pantoprazole Sodium (Protonix) 40 mg GT BID ED Stop: 10/12/17 16:59 Last Admin: 08/14/17 08:35 Dose: 40 mg General: demented HEENT: NC/AT, PERRLA Neck: Supple Lungs: CTAB, congested, rales Cardiovascular: RRR, Normal S1, Normal S2, without murmur Abdomen: soft, non-tender, globular, positive bowel sound Extremities: excoriation, deformity Neurological: no change, muscle weakness, bedbound, spastic - Procedures Procedures: Procedures Procedure Code Date EGD PLACE GASTROSTOMY TUBE 92056 06/21/17 EXCISION OF ASCENDING COLON, ENDO, DIAGN [id number] 06/21/17 EXCISION OF CECUM, ENDO, DIAGN [id number] 06/21/17 EXCISION OF SIGMOID COLON, ENDO, DIAGN [id number] 06/21/17 EXCISION OF STOMACH, ENDO, DIAGN [id number] 06/21/17 INSERTION OF FEEDING DEVICE INTO STOMACH, PERC APPROACH [id number] 06/21/17 INSERTION OF INFUSION DEV INTO SUP VENA CAVA, PERC APPROACH [id number] 06/21/17 INTRODUCTION OF NUTRITIONAL INTO CENTRAL VEIN, PERC APPROACH [id number] 06/21/17 PARTIAL REMOVAL OF COLON 25020 06/21/17 RESECTION OF RIGHT LARGE INTESTINE, OPEN APPROACH [id number] 06/21/17 RESPIRATORY VENTILATION, LESS THAN 24 CONSECUTIVE HOURS [id number] 06/21/17 TRANSFUSE NONAUT RED BLOOD CELLS IN PERIPH VEIN, PERC 30322A5 06/21/17 Internal Medicine Assmt/Plan - Assessment Assessment: - Assessment Assessment: uncontrolled dm2 -severe anemia hx dvt schizophrenia htn psychosis acute renal insufficiency leukotcytosis moderate protein lara malnutrition hypokalemia - Plan Plan: monitor h/h monitor bun/crea ivf for hydration follow up labs in am will follow consultants recommendations continue current orders - Plan Plan: cpm colleen rn replace k Nutritional Asmnt/Malnutr-PDOC - Dietary Evaluation Malnutrition Findings (Please click <Entered> for more info): Nutritional Asmnt/Malnutrition Start: 08/10/17 15: 46 Text: Status: Complete Freq: Document 08/10/17 15:46 GRISELDA (Rec: 08/10/17 16:16 GRISELDA CAUSEY-FN) Nutritional Asmnt/Malnutrition Patient General Information Nutritional Screening High Risk Consult Diagnosis uncontrolled DM/ARF Pertinent Medical Hx/Surgical Hx DM2, anemia, renal stones Subjective Information Consult received for elevated BS. pt seen resting in bed at time of visit. Verified TF running at 60ml/hr at time of visit. Current Diet Order/ Nutrition Support IDabetisource AC 60ml/hr x 20hr Pertinent Medications glucagen, novolog, levemir, protonix, nacl 0.45% Pertinent Labs 08/10 Na 160, K 3.7, cl 115, BUN 135, Cr 2.9, glucose 265, POC 225-204 Nutritional Hx/Data Height 1.6 m Height (Calculated Centimeters) 160.0 Current Weight (lbs) 46.493 kg Weight (Calculated Kilograms) 46.5 Weight (Calculated Grams) 20598.2 [place] Body Weight 115 Body Mass Index (BMI) 18.1 Weight Status Underweight GI Symptoms GI Symptoms None Last BM no record Skin Integrity/Comment: pressure ulceration to coccyx Estimated Nutritional Goals BEE in Kcals: Using Current wt Calories/Kcals/Kg 27-32 Kcals Calculated 2976-9339 Protein: Using Current wt Protein g/k.2-1.4 Protein Calculated 56-66 Fluid: ml 1269-1504ml (1ml/kcal) Nutritional Problem 1. Problem Problem altered nutrition related lab values Etiology electrolytes/fluid imbalance, dx of ARF, hx of DM, Signs/Symptoms: Na 160, Cl 115, BUN 135, Cr 2. 9, glucose 265, POC 225-204 Intervention/Recommendation Comments 1. Continue with current TF regimen. It provides 1400kcal, 72g protein, 982ml free water , meeting 100% of nutritional needs 2. Monitor TF rate, tolerance, wt weekly, skin integrity and labs 3. F/U as high risk in 2-3 days, 08/11-08/12 Expected Outcomes/Goals Expected Outcomes/Goals 1. PO intake to meet at least 75% of nutritional needs via nutrition support. 2. Wt stability, skin to remain intact, labs to approach WNL.
--- NOTE | 2017-08-14 11:55 | GI Progress Note ---
Subjective - Review of Systems Service Date: 08/14/17 Subjective: No new events Objective - Results Result Diagrams: 08/14/17 06:00 08/14/17 06:00 Recent Labs: Laboratory Last Values WBC 12.1 Th/cmm (4.8-10.8) H 08/14/17 06:00 RBC 4.14 Mil/cmm (3.80-5.20) 08/14/17 06:00 Hgb 11.3 gm/dL (12-16) L 08/14/17 06:00 Hct 35.7 % (41.0-60) L 08/14/17 06:00 MCV 86.2 fl (81-100) 08/14/17 06:00 MCH 27.2 pg (27.0-31.0) 08/14/17 06:00 MCHC Differential 31.5 pg (28.0-36.0) 08/14/17 06:00 RDW 15.9 % (11.5-20.0) 08/14/17 06:00 Plt Count 175 Th/cmm (150-400) 08/14/17 06:00 MPV 11.0 fl 08/14/17 06:00 Neutrophils % 80.5 % (40.0-80.0) H 08/14/17 06:00 Lymphocytes % 11.6 % (20.0-50.0) L 08/14/17 06:00 Monocytes % 5.6 % (2.0-10.0) 08/14/17 06:00 Eosinophils % 2.0 % (0.0-5.0) 08/14/17 06:00 Basophils % 0.3 % (0.0-2.0) 08/14/17 06:00 Total Retics Counted 0.8 % (0.5-1.5) 08/10/17 05:50 Absolute Retic 20.6 Th/cmm 08/10/17 05:50 Corrected Retic Count 0.4 % (0.5-1.5) L 08/10/17 05:50 Haptoglobin 433 mg/dL (34-200) H 08/10/17 05:50 PT 10.0 SECONDS (9.5-11.5) 08/10/17 05:50 INR 0.96 (0.5-1.4) 08/10/17 05:50 PTT (Actin FS) 18.3 SECONDS (26.0-38.0) L 08/10/17 05:50 Sodium 146 mEq/L (136-145) H 08/14/17 06:00 Potassium 3.2 mEq/L (3.5-5.1) L 08/14/17 06:00 Chloride 105 mEq/L (98-107) 08/14/17 06:00 Carbon Dioxide 36.5 mEq/L (21.0-31.0) H 08/14/17 06:00 Anion Gap 7.7 (7.0-16.0) 08/14/17 06:00 BUN 75 mg/dL (7-25) H 08/14/17 06:00 Creatinine 1.5 mg/dL (0.6-1.2) H 08/14/17 06:00 Est GFR ( Amer) TNP 08/14/17 06:00 Est GFR (Non-Af Amer) TNP 08/14/17 06:00 BUN/Creatinine Ratio 50.0 08/14/17 06:00 Glucose 261 mg/dL (70-105) H 08/14/17 06:00 POC Glucose 235 MG/DL (70 - 105) H 08/14/17 06:32 Hemoglobin A1c % 6.6 % (4.0-6.0) H 08/09/17 18:20 Whole Bld Lactic Acid 1.89 mmol/L (0.60-1.99) 08/09/17 18:46 Calcium 8.9 mg/dL (8.6-10.3) 08/14/17 06:00 Magnesium 2.9 mg/dL (1.9-2.7) H 08/11/17 06:10 Iron 26 ug/dL (27-139) L 08/10/17 05:50 TIBC 151 ug/dL (250-450) L 08/10/17 05:50 Iron Saturation 17 % (15-55) 08/10/17 05:50 Unsaturated IBC 125 ug/dL (118-369) 08/10/17 05:50 Ferritin 917 ng/mL (15-150) H 08/10/17 05:50 Total Bilirubin 0.2 mg/dL (0.3-1.0) L 08/10/17 05:50 AST 12 U/L (13-39) L 08/10/17 05:50 ALT 7 U/L (7-52) 08/10/17 05:50 Alkaline Phosphatase 49 U/L (34-104) 08/10/17 05:50 Ammonia 38 umol/L (16-53) 08/10/17 05:50 Creatine Kinase 86 U/L (30-223) 08/09/17 18:20 Troponin I 0.12 ng/mL (0.01-0.05) H* D 08/09/17 18:20 B-Natriuretic Peptide 413.0 pg/mL (5.0-100.0) H 08/14/17 06:00 Total Protein 6.6 gm/dL (6.0-8.3) 08/10/17 05:50 Albumin 2.7 gm/dL (3.7-5.3) L 08/10/17 05:50 Globulin 3.9 gm/dL 08/10/17 05:50 Albumin/Globulin Ratio 0.7 (1.0-1.8) L 08/10/17 05:50 Triglycerides 243 mg/dL (<150) H 08/09/17 18:20 Cholesterol 129 mg/dL (<200) 08/09/17 18:20 LDL Cholesterol Direct 56 mg/dL (75-193) L 08/09/17 18:20 HDL Cholesterol 24 mg/dL (23-92) 08/09/17 18:20 Vitamin B12 770 pg/mL (232-1245) 08/10/17 05:50 Folic Acid >20.0 ng/mL (>3.0) 08/10/17 05:50 TSH 1.46 uIU/ml (0.34-5.60) 08/10/17 05:50 Urine Source [place] 08/09/17 18:25 Urine Color YELLOW 08/09/17 18:25 Urine Clarity CLEAR (CLEAR) 08/09/17 18:25 Urine pH 6.0 (4.6 - 8.0) 08/09/17 18:25 Ur Specific [place] 1.010 (1.005-1.030) 08/09/17 18:25 Urine Protein 100 mg/dL (NEGATIVE) H 08/09/17 18:25 Urine Glucose (UA) 500 mg/dL (NEGATIVE) H 08/09/17 18:25 Urine Ketones NEGATIVE mg/dL (NEGATIVE) 08/09/17 18:25 Urine Blood TRACE (NEGATIVE) 08/09/17 18:25 Urine Nitrate NEGATIVE (NEGATIVE) 08/09/17 18:25 Urine Bilirubin NEGATIVE (NEGATIVE) 08/09/17 18:25 Urine Urobilinogen 0.2 E.U./dL (0.2 - 1.0) 08/09/17 18:25 Ur Leukocyte Esterase NEGATIVE (NEGATIVE) 08/09/17 18:25 Urine RBC 2-5 /hpf (0-5) 08/09/17 18:25 Urine WBC NONE SEEN /hpf (0-5) 08/09/17 18:25 Ur Epithelial Cells NONE SEEN /lpf (FEW) 08/09/17 18:25 Urine Bacteria NONE SEEN /hpf (NONE SEEN) 08/09/17 18:25 Stool Occult Blood POSITIVE (NEGATIVE) H 08/14/17 09:50 Blood Type O POSITIVE 08/10/17 10:40 Antibody Screen NEGATIVE 08/10/17 10:40 Crossmatch See Detail 08/10/17 10:40 - Physical Exam Vitals and I&O: Vital Signs Temp 96.8 F 08/14/17 11:53 Pulse 80 08/14/17 11:53 Resp 17 08/14/17 11:53 BP 128/64 08/14/17 11:53 Pulse Ox 96 08/14/17 11:53 Intake & Output 08/13/17 08/14/17 08/14/17 18:59 06:59 18:59 Intake Total 720 Output Total 650 450 Balance -650 270 Weight (lbs) 50.802 kg 53.977 kg Intake: Tube Feeding 720 Output: Urine 650 450 Other: # Bowel Movements 2 4 Stool Characteristics Formed Formed Active Medications: Current Medications Acetaminophen (Tylenol 650mg/20.3ml Suspension) 640 mg GT Q4H PRN PRN Reason: Temp > 100.5 Stop: 10/08/17 20:49 Al Hydrox/Mg Hydrox/Simethicone (Maalox) 30 ml GT Q6H PRN PRN Reason: GI UPSET Stop: 10/08/17 20:11 Albuterol/Ipratropium (Duoneb Neb) 3 ml HHN Q2HRT PRN PRN Reason: Shortness of Breath Stop: 10/08/17 20:11 Amlodipine Besylate (Norvasc) 10 mg GT DAILY [facility] Stop: 10/09/17 08:59 Last Admin: 08/14/17 08:35 Dose: 10 mg Glucagon (Glucagen) 1 mg IM PRN PRN PRN Reason: HYPOGLYCEMIA Stop: 10/08/17 20:59 Guaifenesin (Robitussin) 200 mg PO Q4HR PRN PRN Reason: Cough or Congestion Stop: 10/08/17 20:14 Haloperidol Decanoate (Haldol Dec) 25 mg IM [id number] [facility] Stop: 10/08/17 20:59 Last Admin: 08/12/17 21:10 Dose: Not Given Hydralazine HCl (Apresoline) 50 mg PO TID [facility] Stop: 10/11/17 12:43 Last Admin: 08/14/17 08:34 Dose: 50 mg Ceftriaxone Sodium 1 gm/ (Sodium Chloride) 50 mls @ 100 mls/hr IV Q24HR [facility] Stop: 10/08/17 21:59 Last Admin: 08/13/17 21:04 Dose: 100 mls/hr Dextrose (D5w) 1,000 mls @ 60 mls/hr IV .[id number] [facility] Stop: 10/12/17 13:09 Last Admin: 08/13/17 13:49 Dose: 60 mls/hr Potassium Chloride 40 meq/Lidocaine HCl 25 mg/ Sodium Chloride 272.5 mls @ 68 mls/hr IV X1 ONE Stop: 08/14/17 14:22 Last Admin: 08/14/17 11:28 Dose: 68 mls/hr Insulin Aspart (Novolog) 0 units SUBQ ACHS ED PRN Reason: Protocol Stop: 10/08/17 20:59 Last Admin: 08/14/17 08:01 Dose: 2 units Insulin Detemir (Levemir Insulin) 10 units SUBQ HS ED PRN Reason: Protocol Stop: 10/08/17 20:59 Last Admin: 08/13/17 21:14 Dose: 10 units Isosorbide Dinitrate (Isordil) 10 mg PO TID [facility] Stop: 10/10/17 13:59 Last Admin: 08/14/17 08:35 Dose: 10 mg Nitroglycerin (Nitrostat) 0.4 mg SL Q5MIN PRN PRN Reason: Chest Pain Stop: 10/08/17 20:14 Ondansetron HCl (Zofran Odt) 4 mg PO Q6H PRN PRN Reason: Nausea / Vomiting Stop: 10/08/17 20:59 Ondansetron HCl (Zofran) 4 mg IV Q8H PRN PRN Reason: Nausea / Vomiting Stop: 10/08/17 20:14 Pantoprazole Sodium (Protonix) 40 mg GT BID ED Stop: 10/12/17 16:59 Last Admin: 08/14/17 08:35 Dose: 40 mg General: Alert HEENT: Atraumatic Neck: Supple Cardiovascular: Regular rate Abdomen: Bowel sounds, Soft, no Tender, no Hepatomegaly, no Rebound, no Mass, no Guarding, no Obese Extremities: no Cyanosis - Procedures Procedures: Procedures Procedure Code Date EGD PLACE GASTROSTOMY TUBE 63611 06/21/17 EXCISION OF ASCENDING COLON, ENDO, DIAGN [id number] 06/21/17 EXCISION OF CECUM, ENDO, DIAGN [id number] 06/21/17 EXCISION OF SIGMOID COLON, ENDO, DIAGN [id number] 06/21/17 EXCISION OF STOMACH, ENDO, DIAGN [id number] 06/21/17 INSERTION OF FEEDING DEVICE INTO STOMACH, PERC APPROACH [id number] 06/21/17 INSERTION OF INFUSION DEV INTO SUP VENA CAVA, PERC APPROACH 39NB81G 06/21/17 INTRODUCTION OF NUTRITIONAL INTO CENTRAL VEIN, PERC APPROACH [id number] 06/21/17 PARTIAL REMOVAL OF COLON 05858 06/21/17 RESECTION OF RIGHT LARGE INTESTINE, OPEN APPROACH [id number] 06/21/17 RESPIRATORY VENTILATION, LESS THAN 24 CONSECUTIVE HOURS [id number] 06/21/17 TRANSFUSE NONAUT RED BLOOD CELLS IN PERIPH VEIN, PERC 33427N8 06/21/17 Assessment/Plan - Problem List Patient Problems: All Active Problems HYPERGLYCEMIA (Acute) - Assessment Assessment: 76 YO FEMALE WITH RECENT EGD SHOWING MW TEAR AND GASTRIC ULCER ALSO HAD COLO SHOWING POLYPS, DIVERTICULOSIS, HEMORRHOIDS. 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 NO OVERT GI BLEEDING Pt has had EGD x 3 and colonoscopy x 1 at this point. Her anemia is unlikely to be due to ongoing GI bleeding. Bleeding scan negative. 1. FOLLOW H/H 2. iron supplementation 3. cont tube feeding 4. [place] any future endoscopy for hemostasis given she had had 4 endoscopic exams in the past few months GI to see as needed, please call with questions or updates
[2017-08-14] MEDS: Insulin Detemir 100 units/mL 10mL Vial SUBQ SCH (22:40)
[2017-08-14] MEDS: cefTRIAXone 1 GM in Sodium Chloride 0.9% 50 ML IV SCH (22:50)
[2017-08-15] MEDS: INSULIN ASPART, RECOMBINANT 100 UNITS/ML SUBQ SCH ×3 (05:11→12:50)
[2017-08-15 05:41] LABS: % BASOPHILS 0.6 % (0.0-2.0); % EOSINOPHILS 2.3 % (0.0-5.0); % LYMPHOCYTES 13.3 % (20.0-50.0); % MONOCYTES 5.1 % (2.0-10.0); % NEUTROPHILS 78.7 % (40.0-80.0); BASOPHILE ABSOLUTE 0.1 Th/cumm (0-0.2); EOSINOPHILE ABSOLUTE 0.3 Th/cmm (0.1-0.4); HEMATOCRIT 32.8 % (41.0-60); HEMOGLOBIN 10.6 gm/dL (12-16); LYMPHOCYTE ABSOLUTE 1.5 Th/cmm (1.5-3.0); MEAN CORPUSCULAR HEMOGLOBIN 27.9 pg (27.0-31.0); MEAN CORPUSCULAR HGB CONC 32.4 pg (28.0-36.0); MONOCYTE ABSOLUTE 0.6 Th/cmm (0.3-1.0); NEUTROPHILE ABSOLUTE 8.7 Th/cmm (1.8-8.0); PLATELET COUNT 196 Th/cmm (150-400); RED BLOOD COUNT 3.81 Mil/cmm (3.80-5.20); RED CELL DISTRIBUTION WIDTH 15.8 % (11.5-20.0); WHITE BLOOD COUNT 11.2 Th/cmm (4.8-10.8)
[2017-08-15 05:51] LABS: ANION GAP 8.2 (7.0-16.0); BUN - UREA NITROGEN 72 mg/dL (7-25); CARBON DIOXIDE 35.6 mEq/L (21.0-31.0); CHLORIDE 104 mEq/L (98-107); CREATININE - SERUM 1.6 mg/dL (0.6-1.2); GLUCOSE 205 mg/dL (70-105); MAGNESIUM 2.3 mg/dL (1.9-2.7); POTASSIUM SERUM 3.8 mEq/L (3.5-5.1); SODIUM SERUM 144 mEq/L (136-145)
[2017-08-15] MEDS: Pantoprazole 40 mg/Packet GT SCH ×2 (09:20→17:11)
--- NOTE | 2017-08-15 11:20 | Internal Medicine Prog Note ---
Internal Medicine Subjective - Subjective Service Date: 08/15/17 Patient seen and examined:: with staff Patient is:: awake, non-verbal, non-interactive Patient Complaints of:: congestion Per staff patient has:: no adverse event, poor appetite, agitated, combative, noncompliant, confused, tolerating meds Internal Medicine Objective - Results Result Diagrams: 08/15/17 04:50 08/15/17 04:50 Recent Labs: Laboratory Last Values WBC 11.2 Th/cmm (4.8-10.8) H 08/15/17 04:50 RBC 3.81 Mil/cmm (3.80-5.20) 08/15/17 04:50 Hgb 10.6 gm/dL (12-16) L 08/15/17 04:50 Hct 32.8 % (41.0-60) L 08/15/17 04:50 MCV 86.0 fl (81-100) 08/15/17 04:50 MCH 27.9 pg (27.0-31.0) 08/15/17 04:50 MCHC Differential 32.4 pg (28.0-36.0) 08/15/17 04:50 RDW 15.8 % (11.5-20.0) 08/15/17 04:50 Plt Count 196 Th/cmm (150-400) 08/15/17 04:50 MPV 12.0 fl 08/15/17 04:50 Neutrophils % 78.7 % (40.0-80.0) 08/15/17 04:50 Lymphocytes % 13.3 % (20.0-50.0) L 08/15/17 04:50 Monocytes % 5.1 % (2.0-10.0) 08/15/17 04:50 Eosinophils % 2.3 % (0.0-5.0) 08/15/17 04:50 Basophils % 0.6 % (0.0-2.0) 08/15/17 04:50 Total Retics Counted 0.8 % (0.5-1.5) 08/10/17 05:50 Absolute Retic 20.6 Th/cmm 08/10/17 05:50 Corrected Retic Count 0.4 % (0.5-1.5) L 08/10/17 05:50 Haptoglobin 433 mg/dL (34-200) H 08/10/17 05:50 PT 10.0 SECONDS (9.5-11.5) 08/10/17 05:50 INR 0.96 (0.5-1.4) 08/10/17 05:50 PTT (Actin FS) 18.3 SECONDS (26.0-38.0) L 08/10/17 05:50 Sodium 144 mEq/L (136-145) 08/15/17 04:50 Potassium 3.8 mEq/L (3.5-5.1) 08/15/17 04:50 Chloride 104 mEq/L (98-107) 08/15/17 04:50 Carbon Dioxide 35.6 mEq/L (21.0-31.0) H 08/15/17 04:50 Anion Gap 8.2 (7.0-16.0) 08/15/17 04:50 BUN 72 mg/dL (7-25) H 08/15/17 04:50 Creatinine 1.6 mg/dL (0.6-1.2) H 08/15/17 04:50 Est GFR ( Amer) TNP 08/15/17 04:50 Est GFR (Non-Af Amer) TNP 08/15/17 04:50 BUN/Creatinine Ratio 45.0 08/15/17 04:50 Glucose 205 mg/dL (70-105) H 08/15/17 04:50 POC Glucose 156 MG/DL (70 - 105) H 08/14/17 16:22 Hemoglobin A1c % 6.6 % (4.0-6.0) H 08/09/17 18:20 Whole Bld Lactic Acid 1.89 mmol/L (0.60-1.99) 08/09/17 18:46 Calcium 9.0 mg/dL (8.6-10.3) 08/15/17 04:50 Magnesium 2.3 mg/dL (1.9-2.7) 08/15/17 04:50 Iron 26 ug/dL (27-139) L 08/10/17 05:50 TIBC 151 ug/dL (250-450) L 08/10/17 05:50 Iron Saturation 17 % (15-55) 08/10/17 05:50 Unsaturated IBC 125 ug/dL (118-369) 08/10/17 05:50 Ferritin 917 ng/mL (15-150) H 08/10/17 05:50 Total Bilirubin 0.2 mg/dL (0.3-1.0) L 08/10/17 05:50 AST 12 U/L (13-39) L 08/10/17 05:50 ALT 7 U/L (7-52) 08/10/17 05:50 Alkaline Phosphatase 49 U/L (34-104) 08/10/17 05:50 Ammonia 38 umol/L (16-53) 08/10/17 05:50 Creatine Kinase 86 U/L (30-223) 08/09/17 18:20 Troponin I 0.12 ng/mL (0.01-0.05) H* D 08/09/17 18:20 B-Natriuretic Peptide 413.0 pg/mL (5.0-100.0) H 08/14/17 06:00 Total Protein 6.6 gm/dL (6.0-8.3) 08/10/17 05:50 Albumin 2.7 gm/dL (3.7-5.3) L 08/10/17 05:50 Globulin 3.9 gm/dL 08/10/17 05:50 Albumin/Globulin Ratio 0.7 (1.0-1.8) L 08/10/17 05:50 Triglycerides 243 mg/dL (<150) H 08/09/17 18:20 Cholesterol 129 mg/dL (<200) 08/09/17 18:20 LDL Cholesterol Direct 56 mg/dL (75-193) L 08/09/17 18:20 HDL Cholesterol 24 mg/dL (23-92) 08/09/17 18:20 Vitamin B12 770 pg/mL (232-1245) 08/10/17 05:50 Folic Acid >20.0 ng/mL (>3.0) 08/10/17 05:50 TSH 1.46 uIU/ml (0.34-5.60) 08/10/17 05:50 Urine Source [place] 08/09/17 18:25 Urine Color YELLOW 08/09/17 18:25 Urine Clarity CLEAR (CLEAR) 08/09/17 18:25 Urine pH 6.0 (4.6 - 8.0) 08/09/17 18:25 Ur Specific [place] 1.010 (1.005-1.030) 08/09/17 18:25 Urine Protein 100 mg/dL (NEGATIVE) H 08/09/17 18:25 Urine Glucose (UA) 500 mg/dL (NEGATIVE) H 08/09/17 18:25 Urine Ketones NEGATIVE mg/dL (NEGATIVE) 08/09/17 18:25 Urine Blood TRACE (NEGATIVE) 08/09/17 18:25 Urine Nitrate NEGATIVE (NEGATIVE) 08/09/17 18:25 Urine Bilirubin NEGATIVE (NEGATIVE) 08/09/17 18:25 Urine Urobilinogen 0.2 E.U./dL (0.2 - 1.0) 08/09/17 18:25 Ur Leukocyte Esterase NEGATIVE (NEGATIVE) 08/09/17 18:25 Urine RBC 2-5 /hpf (0-5) 08/09/17 18:25 Urine WBC NONE SEEN /hpf (0-5) 08/09/17 18:25 Ur Epithelial Cells NONE SEEN /lpf (FEW) 08/09/17 18:25 Urine Bacteria NONE SEEN /hpf (NONE SEEN) 08/09/17 18:25 Stool Occult Blood POSITIVE (NEGATIVE) H 08/14/17 09:50 Blood Type O POSITIVE 08/10/17 10:40 Antibody Screen NEGATIVE 08/10/17 10:40 Crossmatch See Detail 08/10/17 10:40 - Physical Exam Vitals and I&O: Vital Signs Temp 96.7 F 08/15/17 07:32 Pulse 85 08/15/17 09:20 Resp 18 08/15/17 08:17 BP 167/78 08/15/17 09:20 Pulse Ox 98 08/15/17 07:54 Intake & Output 08/14/17 08/15/17 08/15/17 18:59 06:59 18:59 Intake Total 0 0 Output Total 600 150 Balance -600 -150 Weight (lbs) 119 lb 119 lb Intake: Oral 0 0 Output: Urine 600 150 Other: # Bowel Movements 2 0 Stool Characteristics Formed Active Medications: Current Medications Acetaminophen (Tylenol 650mg/20.3ml Suspension) 640 mg GT Q4H PRN PRN Reason: Temp > 100.5 Stop: 10/08/17 20:49 Al Hydrox/Mg Hydrox/Simethicone (Maalox) 30 ml GT Q6H PRN PRN Reason: GI UPSET Stop: 10/08/17 20:11 Albuterol/Ipratropium (Duoneb Neb) 3 ml HHN Q2HRT PRN PRN Reason: Shortness of Breath Stop: 10/08/17 20:11 Amlodipine Besylate (Norvasc) 10 mg GT DAILY [facility] Stop: 10/09/17 08:59 Last Admin: 08/15/17 09:19 Dose: 10 mg Glucagon (Glucagen) 1 mg IM PRN PRN PRN Reason: HYPOGLYCEMIA Stop: 10/08/17 20:59 Guaifenesin (Robitussin) 200 mg PO Q4HR PRN PRN Reason: Cough or Congestion Stop: 10/08/17 20:14 Haloperidol Decanoate (Haldol Dec) 25 mg IM [id number] [facility] Stop: 10/08/17 20:59 Last Admin: 08/12/17 21:10 Dose: Not Given Hydralazine HCl (Apresoline) 50 mg PO TID [facility] Stop: 10/11/17 12:43 Last Admin: 08/15/17 09:19 Dose: 50 mg Ceftriaxone Sodium 1 gm/ (Sodium Chloride) 50 mls @ 100 mls/hr IV Q24HR [facility] Stop: 10/08/17 21:59 Last Admin: 08/14/17 22:50 Dose: 100 mls/hr Dextrose (D5w) 1,000 mls @ 60 mls/hr IV [id number] [facility] Stop: 10/12/17 13:09 Last Admin: 08/13/17 13:49 Dose: 60 mls/hr Insulin Aspart (Novolog) 0 units SUBQ ACHS [facility] PRN Reason: Protocol Stop: 10/08/17 20:59 Last Admin: 08/15/17 09:18 Dose: Not Given Insulin Detemir (Levemir Insulin) 10 units SUBQ HS [facility] PRN Reason: Protocol Stop: 10/08/17 20:59 Last Admin: 08/14/17 22:40 Dose: 10 units Isosorbide Dinitrate (Isordil) 10 mg PO TID [facility] Stop: 10/10/17 13:59 Last Admin: 08/15/17 09:20 Dose: 10 mg Nitroglycerin (Nitrostat) 0.4 mg SL Q5MIN PRN PRN Reason: Chest Pain Stop: 10/08/17 20:14 Ondansetron HCl (Zofran Odt) 4 mg PO Q6H PRN PRN Reason: Nausea / Vomiting Stop: 10/08/17 20:59 Ondansetron HCl (Zofran) 4 mg IV Q8H PRN PRN Reason: Nausea / Vomiting Stop: 10/08/17 20:14 Pantoprazole Sodium (Protonix) 40 mg GT BID ED Stop: 10/12/17 16:59 Last Admin: 08/15/17 09:20 Dose: 40 mg General: demented HEENT: NC/AT, PERRLA Neck: Supple Lungs: CTAB, congested, rales Cardiovascular: RRR, Normal S1, Normal S2, without murmur Abdomen: soft, non-tender, globular, positive bowel sound Extremities: excoriation, deformity Neurological: no change, muscle weakness, bedbound, spastic - Procedures Procedures: Procedures Procedure Code Date EGD PLACE GASTROSTOMY TUBE 18412 06/21/17 EXCISION OF ASCENDING COLON, ENDO, DIAGN 8INQ2MQ 06/21/17 EXCISION OF CECUM, ENDO, DIAGN 5VYS2QG 06/21/17 EXCISION OF SIGMOID COLON, ENDO, DIAGN 7HFD4HU 06/21/17 EXCISION OF STOMACH, ENDO, DIAGN 0OY91DV 06/21/17 INSERTION OF FEEDING DEVICE INTO STOMACH, PERC APPROACH [id number] 06/21/17 INSERTION OF INFUSION DEV INTO SUP VENA CAVA, PERC APPROACH 12DO33D 06/21/17 INTRODUCTION OF NUTRITIONAL INTO CENTRAL VEIN, PERC APPROACH [id number] 06/21/17 PARTIAL REMOVAL OF COLON 02385 06/21/17 RESECTION OF RIGHT LARGE INTESTINE, OPEN APPROACH 3TIE8GV 06/21/17 RESPIRATORY VENTILATION, LESS THAN 24 CONSECUTIVE HOURS [id number] 06/21/17 TRANSFUSE NONAUT RED BLOOD CELLS IN PERIPH VEIN, PERC [id number] 06/21/17 Internal Medicine Assmt/Plan - Assessment Assessment: uncontrolled dm2 -severe anemia- stool ob positive hx dvt schizophrenia htn psychosis acute renal insufficiency leukotcytosis moderate protein lara malnutrition - Plan Plan: monitor h/h monitor bun/crea ivf for hydration follow up labs in am will follow consultants recommendations continue current orders Nutritional Asmnt/Malnutr-PDOC - Dietary Evaluation Malnutrition Findings (Please click <Entered> for more info): Nutritional Asmnt/Malnutrition Start: 08/10/17 15: 46 Text: Status: Complete Freq: Document 08/10/17 15:46 GRISELDA (Rec: 08/10/17 16:16 ERICHARSHAD [email or web address]) Nutritional Asmnt/Malnutrition Patient General Information Nutritional Screening High Risk Consult Diagnosis uncontrolled DM/ARF Pertinent Medical Hx/Surgical Hx DM2, anemia, renal stones Subjective Information Consult received for elevated BS. pt seen resting in bed at time of visit. Verified TF running at 60ml/hr at time of visit. Current Diet Order/ Nutrition Support IDabetisource AC 60ml/hr x 20hr Pertinent Medications glucagen, novolog, levemir, protonix, nacl 0.45% Pertinent Labs 08/10 Na 160, K 3.7, cl 115, BUN 135, Cr 2.9, glucose 265, POC 225-204 Nutritional Hx/Data Height 5 ft 3 in Height (Calculated Centimeters) 160.0 Current Weight (lbs) 102 lb 8 oz Weight (Calculated Kilograms) 46.5 Weight (Calculated Grams) 30404.2 [place] Body Weight 115 Body Mass Index (BMI) 18.1 Weight Status Underweight GI Symptoms GI Symptoms None Last BM no record Skin Integrity/Comment: pressure ulceration to coccyx Estimated Nutritional Goals BEE in Kcals: Using Current wt Calories/Kcals/Kg 27-32 Kcals Calculated 1135-4667 Protein: Using Current wt Protein g/k.2-1.4 Protein Calculated 56-66 Fluid: ml 1269-1504ml (1ml/kcal) Nutritional Problem 1. Problem Problem altered nutrition related lab values Etiology electrolytes/fluid imbalance, dx of ARF, hx of DM, Signs/Symptoms: Na 160, Cl 115, BUN 135, Cr 2. 9, glucose 265, POC 225-204 Intervention/Recommendation Comments 1. Continue with current TF regimen. It provides 1400kcal, 72g protein, 982ml free water , meeting 100% of nutritional needs 2. Monitor TF rate, tolerance, wt weekly, skin integrity and labs 3. F/U as high risk in 2-3 days, 08/11-08/12 Expected Outcomes/Goals Expected Outcomes/Goals 1. PO intake to meet at least 75% of nutritional needs via nutrition support. 2. Wt stability, skin to remain intact, labs to approach WNL.
--- NOTE | 2017-11-17 15:54 | Discharge Summary ---
DATE OF DISCHARGE: 08/15/2017 FINAL DIAGNOSES: Uncontrolled type 2 diabetes, severe anemia, stool OB positive, history of DVT, schizophrenia, hypertension, psychosis, acute renal insufficiency, leukocytosis, protein calorie malnutrition. HISTORY OF PRESENT ILLNESS: This is a 76-year-old -Polish female who was sent to [facility] due to elevated sugar at 597. The patient did not have any fevers at the snf for further management and the patient was admitted. PHYSICAL EXAMINATION: GENERAL: The patient is an elderly female, awake, not really interactive, no apparent distress. VITAL SIGNS: Stable. HEENT: Normocephalic, atraumatic. NECK: Supple. No mass. LUNGS: Clear bilaterally. HEART: Regular rate and rhythm. ABDOMEN: Soft, nontender. HOSPITAL COURSE: During the hospital stay, the patient had been in the telemetry unit. GI consultation was obtained and the patient was transfused with 2 units of PRBCs, collected stool for OB and it was positive. The patient also had a renal ultrasound. The patient was kept on aggressive IV fluids for hydration. The patient's H and H has been stable and there has been no drop. The patient did not have to have an EGD due to a recent EGD showing MW tear and gastric ulcers and colonoscopy showing polyps, diverticulosis, and hemorrhoids. The patient has subsequently had a hemicolectomy. No overt GI bleeding. The patient's H and H has been stable. For this reason, the patient is stable for discharge. CONDITION UPON DISCHARGE: Fair. DISPOSITION: [facility]. [facility]# [id number]
== END 2017-08-15 17:05 | disposition home or self-care (01) | DRG 469 ==
LOC: ER 18:00 → TELE 20:05 → MSI 08-15 06:14
PROVIDERS: ADMIT Internal Medicine; ATTEND Internal Medicine
PROC: 30233N1 Transfusion of Nonautologous Red Blood Cells into Peripheral Vein, Percutaneous Approach (ICD-10-PCS; principal; 2017-08-10)
DX: N17.9 Acute kidney failure, unspecified (principal); E11.00 Type 2 diabetes mellitus with hyperosmolarity without nonketotic hyperglycemic-hyperosmolar coma (NKHHC); G93.41 Metabolic encephalopathy; E44.0 Moderate protein-calorie malnutrition; E87.0 Hyperosmolality and hypernatremia; E11.65 Type 2 diabetes mellitus with hyperglycemia; D64.9 Anemia, unspecified; F20.9 Schizophrenia, unspecified; E87.1 Hypo-osmolality and hyponatremia; F29 Unspecified psychosis not due to a substance or known physiological condition; E87.6 Hypokalemia; E78.5 Hyperlipidemia, unspecified; I25.10 Atherosclerotic heart disease of native coronary artery without angina pectoris; I12.0 Hypertensive chronic kidney disease with stage 5 chronic kidney disease or end stage renal disease; E11.22 Type 2 diabetes mellitus with diabetic chronic kidney disease; N18.6 End stage renal disease; F03.90 Unspecified dementia, unspecified severity, without behavioral disturbance, psychotic disturbance, mood disturbance, and anxiety; K25.9 Gastric ulcer, unspecified as acute or chronic, without hemorrhage or perforation; N20.0 Calculus of kidney; K57.90 Diverticulosis of intestine, part unspecified, without perforation or abscess without bleeding; K64.9 Unspecified hemorrhoids; Z86.718 Personal history of other venous thrombosis and embolism; Z93.1 Gastrostomy status; Z99.2 Dependence on renal dialysis; Z68.21 Body mass index [BMI] 21.0-21.9, adult; Z83.3 Family history of diabetes mellitus; Z82.49 Family history of ischemic heart disease and other diseases of the circulatory system
CPT/HCPCS: 36415-UA; 70450-TC; 71045-TC; 76770-TC; 78278-TC; 80048-TC; 80053-TC; 80061-TC; 81001-TC; 82140-TC; 82270-TC; 82550-TC; 82607-90; 82728-90; 82746-90; 82948-90; 83010-90; 83036-90; 83540-90; 83550-90; 83605; 83735-TC; 83880-TC; 84443-TC; 84484-TC; 85025-TC; 85044-TC; 85610-TC; 86850-TC; 86900-TC; 86901-TC; 86922-TC; 93005; 94760; 96374; A9512; J0696; J1631; J1815; J2001; J3480; J7030; J7070; P9016; Z7610

== ENCOUNTER 2017-11-16 22:22 | Inpatient (IN) | payer MEDICAID ==
--- NOTE | 2017-11-16 22:52 | ED Physician Chart ---
ED Chief Complaint/HPI - Patient Information Date Seen:: 11/16/17 Time Seen:: 22:20 Chief Complaint:: AMS History of Present Illness:: onset x one day of AMS and ALOC with abnormal labs tonight; no report of trauma , H/As, S/T, neck pain, C/P, SOB, Abd. Pain, A/N/V/D/C, fever, chills, or urinary s/s Allergies:: Allergies Allergy/AdvReac Type Severity Reaction Status Date / Time No Known Allergies Allergy Verified 06/21/17 17:43 Vitals:: Vital Signs - 8 hr 11/16/17 22:23 Temp 97.6 F HR 68 RR 18 BP 135/76 O2 Sat % 93 Historian:: Patient, EMS Review:: Nurse's Note Reviewed, Old Chart Reviewed, EMS run form Reviewed ED Review of Systems - Review of Systems General/Constitutional: Fever, No chills, No weight loss, No weakness, No diaphoresis, No edema, No loss of appetite Skin: No skin lesions, No rash, No bruising Head: No headache, No light-headedness Eyes: No loss of vision, No pain, No diplopia ENT: No earache, No nasal drainage, No sore throat, No tinnitus Neck: No neck pain, No swelling, No thyromegaly, No stiffness, No mass noted Cardio Vascular: No chest pain, No palpitations, No PND, No orthopnea, No edema Pulmonary: No SOB, No cough, No sputum, No wheezing GI: No nausea, No vomiting, No diarrhea, No pain, No melena, No hematochezia, No constipation, No hematemesis G/U: No dysuria, No frequency, No hematuria, No nacturia Cinema 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: No vaginal discharge, No abnormal vaginal bleed, No contraction Musculoskeletal: No bone or joint pain, No back pain, No muscle pain Endocrine: Polyuria, Polydipsia Psychiatric: No prior psych history, No depression, No anxiety, No suicidal ideation, No homicidal ideation, No auditory hallucination, No visual hallucination Hematopoietic: No bruising, No lymphadenopathy Allergic/Immuno: No urticaria, No angioedema Neurological: No syncope, No focal symptoms, No weakness, No paresthesia, No headache, No seizure, No dizziness, Confusion, No vertigo ED Past Medical History - Past Medical History Obtainable: Yes Past Medical History: HTN, DM, Dementia Family History: Diabetes Melitus, HTN Social History: Non Smoker, No Alcohol, No Drug Use, , Care Facility Surgical History: None Psychiatricy History: Dementia Medication: Reviewed Family Medical History - Family Member Mother History Unknown: Yes ED Physical Exam - Physical Examination General/Constitutional: Awake, Well-developed, well-nourished, Alert, No distress, GCS 15, Non-toxic appearing, Ambulatory Head: Atraumatic Eyes: Lids, conjuctiva normal, PERRL, EOMI Skin: Nl inspection, No rash, No skin lesions, No ecchymosis, No lymphadenopathy Other Skin comments:: Poor Turgor with dry MM ENMT: External ears, nose nl, TM canals nl, Nasal exam nl, Lips, teeth, gums nl , Oropharynx nl, Tonsils nl Neck: Nontender, Full ROM w/o pain, No JVD, No nuchal rigidity, No bruit, No mass, No stridor Respiratory: Nl effort/Exclusion, Clear to Auscultation, No Wheeze/Rhonchi/Rales Cardio Vascular: RRR, No murmur, gallop, rubs, NL S1 S2, Carotid/Femoral/Distal pulses equal bilaterally GI: No tenderness/rebounding/guarding, No organomegaly, No hernia, Normal BS's, Nondistended, No mass/bruits, No McBurney tenderness : No CVA tenderness Extremities: No tenderness or effusion, Full ROM, normal strength in all extremities, No edema, Normal digits & nails Neuro/Psych: Alert/oriented, DTR's symmetric, Normal sensory exam, Normal motor strength, Judgement/insight normal, Mood normal, Normal gait, No focal deficits Misc: Normal back, No paraspinal tenderness ED Labs/Radiology/EKG Results - Lab Results Comments:: H/H: 7.7/24.1; BUN: 117; Na+: 164; Cr: 2.4; U/A: + Pyuria - Radiology Results Comments:: NAD - EKG Interpretations Rate & Rhythm: NSR Comments:: non-specific st-t changes ED Septic Shock - . Is Septic Shock (SBP<90, OR Lactate>4 mmol\L) present?: No - <6hrs of presentation: Vital Signs: Vital Signs - 8 hr 11/16/17 22:23 Temp 97.6 F HR 68 RR 18 BP 135/76 O2 Sat % 93 ED Reassessment (Disposition) - Reassessment Reassessment Condition:: Improved - Diagnosis Diagnosis:: Dx: AMS; ALOC; Abnormal Labs; Dehydration; Anemia; Hypernatremia; UTI - Aftercare/Follow up Instructions Aftercare/Follow-Up Instructions:: Counseled pt regarding lab results/diagnosis & need follow up, Counseled pt & family regarding lab results/diagnosis & need follow up - Patient Disposition Discharge/Transfer:: Acute Care w/in this hosp Accepting Physician:: Dr. Tobias Time Called:: 0010 Time Responded:: 00:10 Admitted to:: Telemetry Spoke to:: Dr. Tobias Admitting Medical Physician:: Dr. Tobias Condition at Disposition:: Stable, Improved ED Discharge Plan - Patient Disposition Admit/Discharge/Transfer: Acute Care w/in this hosp
[2017-11-16 22:53] LABS: % BASOPHILS 0.6 % (0.0-2.0); % EOSINOPHILS 4.6 % (0.0-5.0); % LYMPHOCYTES 31.7 % (20.0-50.0); % MONOCYTES 6.5 % (2.0-10.0); % NEUTROPHILS 56.6 % (40.0-80.0); EOSINOPHILE ABSOLUTE 0.3 Th/cmm (0.1-0.4); HEMATOCRIT 24.1 % (41.0-60); MEAN CORPUSCULAR HEMOGLOBIN 29.1 pg (27.0-31.0); MONOCYTE ABSOLUTE 0.4 Th/cmm (0.3-1.0); NEUTROPHILE ABSOLUTE 3.6 Th/cmm (1.8-8.0); PLATELET COUNT 192 Th/cmm (150-400); RED BLOOD COUNT 2.65 Mil/cmm (3.80-5.20); RED CELL DISTRIBUTION WIDTH 15.6 % (11.5-20.0); WHITE BLOOD COUNT 6.3 Th/cmm (4.8-10.8)
[2017-11-16 23:01] LABS: HEMOGLOBIN 7.7 gm/dL (12-16)
[2017-11-16 23:08] LABS: ALB/GLOB RATIO 0.9 (1.0-1.8); ALBUMIN 3.3 gm/dL (3.7-5.3); ALKALINE PHOSPHATASE 126 U/L (34-104); ANION GAP 9.8 (7.0-16.0); BILIRUBIN,TOTAL 0.2 mg/dL (0.3-1.0); CALCIUM SERUM 9.9 mg/dL (8.6-10.3); CHLORIDE 121 mEq/L (98-107); CREATININE - SERUM 2.4 mg/dL (0.6-1.2); CREATININE KINASE 34 U/L (30-223); GLUCOSE 150 mg/dL (70-105); POTASSIUM SERUM 3.8 mEq/L (3.5-5.1); SGOT 24 U/L (13-39); SGPT/ALT 27 U/L (7-52)
[2017-11-16 23:09] LABS: BUN - UREA NITROGEN 117 mg/dL (7-25); SODIUM SERUM 164 mEq/L (136-145)
[2017-11-16 23:12] LABS: INR 0.94 (0.5-1.4); PROTHROMBIN TIME (TEST) 9.8 SECONDS (9.5-11.5)
[2017-11-16] MEDS ORDERED: Sodium Chloride 0.9% 1,000 ML IV ONE (23:12)
[2017-11-16 23:22] LABS: TROP I 0.03 ng/mL (0.01-0.05)
[2017-11-16] MEDS ORDERED: HALOPERIDOL DECANOATE IM SCH (23:45)
[2017-11-17] MEDS: Dextrose 5% 1,000 ML IV SCH ×2 (00:12→10:21)
[2017-11-17 00:46] LABS: URINE BILIRUBIN NEGATIVE (NEGATIVE); URINE BLOOD NEGATIVE (NEGATIVE); URINE GLUCOSE (UA) NEGATIVE (NEGATIVE); URINE KETONE NEGATIVE (NEGATIVE); URINE LEUKOCYTE ESTERASE LARGE (NEGATIVE); URINE MICROSCOPIC INDICATED? YES; URINE NITRATE NEGATIVE (NEGATIVE); URINE PROTEIN 100 mg/dL (NEGATIVE); URINE SOURCE MIDSTREAM; URINE UROBILINOGEN 0.2 E.U./dL (0.2 - 1.0)
[2017-11-17 00:47] LABS: URINE CLARITY CLEAR (CLEAR); URINE COLOR YELLOW
[2017-11-17 00:48] LABS: URINE BACTERIA FEW /hpf (NONE SEEN); URINE EPITHELIAL CELLS FEW /lpf (FEW); URINE RBC 0-2 /hpf (0-5)
[2017-11-17] MEDS ORDERED: cefTRIAXone 1 GM in Sodium Chloride 0.9% 50 ML IV ONE (06:00)
[2017-11-17 06:18] LABS: ANION GAP 10.9 (7.0-16.0); CALCIUM SERUM 9.6 mg/dL (8.6-10.3); CARBON DIOXIDE 35.5 mEq/L (21.0-31.0); CHLORIDE 120 mEq/L (98-107); CREATININE - SERUM 2.3 mg/dL (0.6-1.2); GLUCOSE 226 mg/dL (70-105); POTASSIUM SERUM 3.4 mEq/L (3.5-5.1)
[2017-11-17 06:20] LABS: BUN - UREA NITROGEN 111 mg/dL (7-25); SODIUM SERUM 163 mEq/L (136-145)
[2017-11-17 06:23] LABS: % BASOPHILS 0.5 % (0.0-2.0); % LYMPHOCYTES 25.8 % (20.0-50.0); % MONOCYTES 6.8 % (2.0-10.0); % NEUTROPHILS 63.9 % (40.0-80.0); EOSINOPHILE ABSOLUTE 0.2 Th/cmm (0.1-0.4); HEMATOCRIT 22.9 % (41.0-60); LYMPHOCYTE ABSOLUTE 1.5 Th/cmm (1.5-3.0); MEAN CELL VOLUME 90.5 fl (81-100); MEAN CORPUSCULAR HEMOGLOBIN 29.6 pg (27.0-31.0); MEAN CORPUSCULAR HGB CONC 32.7 pg (28.0-36.0); MEAN PLATELET VOLUME 13.1 fl; MONOCYTE ABSOLUTE 0.4 Th/cmm (0.3-1.0); NEUTROPHILE ABSOLUTE 3.6 Th/cmm (1.8-8.0); PLATELET COUNT 176 Th/cmm (150-400); RED BLOOD COUNT 2.53 Mil/cmm (3.80-5.20); RED CELL DISTRIBUTION WIDTH 15.3 % (11.5-20.0); WHITE BLOOD COUNT 5.7 Th/cmm (4.8-10.8)
[2017-11-17 06:26] LABS: HEMOGLOBIN 7.5 gm/dL (12-16)
[2017-11-17] MEDS: Ipratropium Neb 0.5 mg/2.5 mL UD HHN SCH ×4 (07:31→18:50)
[2017-11-17] MEDS: Albuterol Nebulizer 2.5mg/3mL HHN SCH ×4 (07:31→18:50)
[2017-11-17] MEDS: INSULIN ASPART, RECOMBINANT 100 UNITS/ML SUBQ SCH ×4 (08:45→20:58)
--- NOTE | 2017-11-17 09:08 | Diagnostic Imaging Report ---
Portable chest x-ray History: Shortness of breath Allowing for portable technique the heart size is normal. No focal pulmonary parenchymal processes. No hilar or mediastinal abnormalities. Impression: No acute abnormalities.
[2017-11-17] MEDS: Pantoprazole 40 mg EC Tab PO SCH (10:22)
[2017-11-17] MEDS: Hydrogel 3 oz Tube TP SCH (10:22)
[2017-11-17 11:41] LABS: ALB/GLOB RATIO 0.8 (1.0-1.8); ALBUMIN 3.1 gm/dL (3.7-5.3); ALKALINE PHOSPHATASE 116 U/L (34-104); ANION GAP 10.9 (7.0-16.0); BILIRUBIN,TOTAL 0.2 mg/dL (0.3-1.0); CALCIUM SERUM 9.5 mg/dL (8.6-10.3); CARBON DIOXIDE 35.8 mEq/L (21.0-31.0); CHLORIDE 116 mEq/L (98-107); CREATININE - SERUM 2.4 mg/dL (0.6-1.2); GLUCOSE 222 mg/dL (70-105); POTASSIUM SERUM 3.7 mEq/L (3.5-5.1); SGOT 19 U/L (13-39); SGPT/ALT 23 U/L (7-52); TOTAL PROTEIN,SERUM 6.8 gm/dL (6.0-8.3)
[2017-11-17 11:47] LABS: BUN - UREA NITROGEN 102 mg/dL (7-25); SODIUM SERUM 159 mEq/L (136-145)
[2017-11-17] MEDS ORDERED: Non-Formulary Item 1 EA (Omeprazole [Omeprazole] 40 MG) GT SCH (12:00)
--- NOTE | 2017-11-17 12:26 | Internal Medicine Prog Note ---
Internal Medicine Subjective - Subjective Service Date: 11/17/17 ([facility] dictated [id number]) Internal Medicine Objective - Results Result Diagrams: 11/17/17 05:45 11/17/17 11:10 Recent Labs: Laboratory Last Values WBC 5.7 Th/cmm (4.8-10.8) 11/17/17 05:45 RBC 2.53 Mil/cmm (3.80-5.20) L 11/17/17 05:45 Hgb 7.5 gm/dL (12-16) L* 11/17/17 05:45 Hct 22.9 % (41.0-60) L 11/17/17 05:45 MCV 90.5 fl (81-100) 11/17/17 05:45 MCH 29.6 pg (27.0-31.0) 11/17/17 05:45 MCHC Differential 32.7 pg (28.0-36.0) 11/17/17 05:45 RDW 15.3 % (11.5-20.0) 11/17/17 05:45 Plt Count 176 Th/cmm (150-400) 11/17/17 05:45 MPV 13.1 fl 11/17/17 05:45 Neutrophils % 63.9 % (40.0-80.0) 11/17/17 05:45 Lymphocytes % 25.8 % (20.0-50.0) 11/17/17 05:45 Monocytes % 6.8 % (2.0-10.0) 11/17/17 05:45 Eosinophils % 3.0 % (0.0-5.0) 11/17/17 05:45 Basophils % 0.5 % (0.0-2.0) 11/17/17 05:45 PT 9.8 SECONDS (9.5-11.5) 11/16/17 22:40 INR 0.94 (0.5-1.4) 11/16/17 22:40 PTT (Actin FS) 20.7 SECONDS (26.0-38.0) L 11/16/17 22:40 Sodium 159 mEq/L (136-145) H* 11/17/17 11:10 Potassium 3.7 mEq/L (3.5-5.1) 11/17/17 11:10 Chloride 116 mEq/L (98-107) H 11/17/17 11:10 Carbon Dioxide 35.8 mEq/L (21.0-31.0) H 11/17/17 11:10 Anion Gap 10.9 (7.0-16.0) 11/17/17 11:10 BUN 102 mg/dL (7-25) H* 11/17/17 11:10 Creatinine 2.4 mg/dL (0.6-1.2) H 11/17/17 11:10 Est GFR ( Amer) TNP 11/17/17 11:10 Est GFR (Non-Af Amer) TNP 11/17/17 11:10 BUN/Creatinine Ratio 42.5 11/17/17 11:10 Glucose 222 mg/dL (70-105) H 11/17/17 11:10 Whole Bld Lactic Acid 0.99 mmol/L (0.60-1.99) 11/16/17 22:40 Calcium 9.5 mg/dL (8.6-10.3) 11/17/17 11:10 Total Bilirubin 0.2 mg/dL (0.3-1.0) L 11/17/17 11:10 AST 19 U/L (13-39) 11/17/17 11:10 ALT 23 U/L (7-52) 11/17/17 11:10 Alkaline Phosphatase 116 U/L (34-104) H 11/17/17 11:10 Ammonia 62 umol/L (16-53) H 11/17/17 05:45 Creatine Kinase 34 U/L (30-223) 11/16/17 22:40 Troponin I 0.03 ng/mL (0.01-0.05) 11/16/17 22:40 Total Protein 6.8 gm/dL (6.0-8.3) 11/17/17 11:10 Albumin 3.1 gm/dL (3.7-5.3) L 11/17/17 11:10 Globulin 3.7 gm/dL 11/17/17 11:10 Albumin/Globulin Ratio 0.8 (1.0-1.8) L 11/17/17 11:10 Urine Source [place] 11/16/17 23:55 Urine Color YELLOW 11/16/17 23:55 Urine Clarity CLEAR (CLEAR) 11/16/17 23:55 Urine pH 8.0 (4.6 - 8.0) 11/16/17 23:55 Ur Specific [place] 1.015 (1.005-1.030) 11/16/17 23:55 Urine Protein 100 mg/dL (NEGATIVE) H 11/16/17 23:55 Urine Glucose (UA) NEGATIVE mg/dL (NEGATIVE) 11/16/17 23:55 Urine Ketones NEGATIVE mg/dL (NEGATIVE) 11/16/17 23:55 Urine Blood NEGATIVE (NEGATIVE) 11/16/17 23:55 Urine Nitrate NEGATIVE (NEGATIVE) 11/16/17 23:55 Urine Bilirubin NEGATIVE (NEGATIVE) 11/16/17 23:55 Urine Urobilinogen 0.2 E.U./dL (0.2 - 1.0) 11/16/17 23:55 Ur Leukocyte Esterase LARGE (NEGATIVE) H 11/16/17 23:55 Urine RBC 0-2 /hpf (0-5) 11/16/17 23:55 Urine WBC 6-10 /hpf (0-5) H 11/16/17 23:55 Ur Epithelial Cells FEW /lpf (FEW) 11/16/17 23:55 Urine Bacteria FEW /hpf (NONE SEEN) 11/16/17 23:55 - Physical Exam Vitals and I&O: Vital Signs Temp 97.2 F 11/17/17 12:08 Pulse 76 11/17/17 12:08 Resp 18 11/17/17 12:08 BP 124/76 11/17/17 12:08 Pulse Ox 95 11/17/17 12:08 Intake & Output 11/16/17 11/17/17 11/17/17 18:59 06:59 18:59 Intake Total 1000 Output Total 300 Balance -300 1000 Weight (lbs) 107 lb Intake: Intake, IV Amount 1000 Dextrose 5% 1,000 ml @ 1000 125 mls/hr IV .Q8H [facility] Rx #:[id number] Output: Urine 300 Other: Stool Characteristics Formed Weight Source Bedscale Active Medications: Current Medications Acetaminophen (Tylenol) 650 mg GT Q4H PRN PRN Reason: TEMP >100.5 Stop: 01/15/18 23:34 Albuterol Sulfate (Albuterol 2.5mg/3ml Neb Ud) 2.5 mg HHN QIDRT ED Stop: 01/16/18 06:59 Last Admin: 11/17/17 11:50 Dose: 2.5 mg Amlodipine Besylate (Norvasc) 10 mg GT DAILY ED Stop: 01/16/18 08:59 Last Admin: 11/17/17 10:21 Dose: 10 mg Bandage/Support Products (Hydrogel) 1 appl TP DAILY ED Stop: 01/16/18 08:59 Last Admin: 11/17/17 10:22 Dose: 1 appl Haloperidol Decanoate (Haldol Dec) 25 mg IM [id number] ED Stop: 01/16/18 09:59 Dextrose (D5w) 1,000 mls @ 125 mls/hr IV .Q8H ED Stop: 01/15/18 23:44 Last Admin: 11/17/17 10:21 Dose: 125 mls/hr Potassium Chloride/Dextrose (D5w W/20 Meq Kcl) 1,000 mls @ 125 mls/hr IV .Q8H [facility] Stop: 01/16/18 11:01 Insulin Aspart (Novolog) 0 units SUBQ ACHS [facility]; Protocol Stop: 01/16/18 07:29 Last Admin: 11/17/17 08:45 Dose: Not Given Ipratropium [place] (Atrovent Neb 0.5mg/2.5ml) 0.5 mg HHN QIDRT [facility] Stop: 01/16/18 06:59 Last Admin: 11/17/17 11:50 Dose: 0.5 mg Lactulose (Cephulac) 30 gm PO BID ED Stop: 01/16/18 16:59 Lorazepam (Ativan) 1 mg IV Q4H PRN; Protocol PRN Reason: Seizure Stop: 01/15/18 23:36 Mirtazapine (Remeron) 15 mg GT HS ED; Protocol Stop: 01/16/18 20:59 Nitroglycerin (Nitrostat) 0.4 mg SL Q5MIN PRN PRN Reason: Chest Pain Stop: 01/15/18 23:37 Ondansetron HCl (Zofran) 4 mg IV Q8H PRN PRN Reason: Nausea / Vomiting Stop: 01/15/18 23:37 Pantoprazole Sodium (Protonix) 40 mg PO DAILY ED Stop: 01/16/18 08:59 Last Admin: 11/17/17 10:22 Dose: 40 mg - Procedures Procedures: Procedures Procedure Code Date EGD PLACE GASTROSTOMY TUBE 95608 06/21/17 EXCISION OF ASCENDING COLON, ENDO, DIAGN [id number] 06/21/17 EXCISION OF CECUM, ENDO, DIAGN 9HTE9NW 06/21/17 EXCISION OF SIGMOID COLON, ENDO, DIAGN 2MOR7YE 06/21/17 EXCISION OF STOMACH, ENDO, DIAGN 2DH92XK 06/21/17 INSERTION OF FEEDING DEVICE INTO STOMACH, PERC APPROACH 9RI91ID 06/21/17 INSERTION OF INFUSION DEV INTO SUP VENA CAVA, PERC APPROACH 95EQ40D 06/21/17 INTRODUCTION OF NUTRITIONAL INTO CENTRAL VEIN, PERC APPROACH 0P8252F 06/21/17 PARTIAL REMOVAL OF COLON 85451 06/21/17 RESECTION OF RIGHT LARGE INTESTINE, OPEN APPROACH [id number] 06/21/17 RESPIRATORY VENTILATION, LESS THAN 24 CONSECUTIVE HOURS 7E4430C 06/21/17 TRANSFUSE NONAUT RED BLOOD CELLS IN PERIPH VEIN, PERC 64185B6 08/09/17
--- NOTE | 2017-11-17 13:45 | Diagnostic Imaging Report ---
Abdominal ultrasound HISTORY: Pain, abnormal renal function test The liver exhibits a homogeneous parenchyma with a normal size. No focal lesions. The gallbladder appears normal. No calculi are seen. No biliary dilatation (common bile duct is 2 mm). The pancreas cannot be seen due to bowel gas. The right kidney is slightly decreased in size (8.8 x 3.8 x 3.5 cm). No focal lesions. No hydronephrosis. The left kidney is also decreased in size (8.7 x 4.0 x 4.0 cm). No focal lesions. No hydronephrosis. No other definite retroperitoneal or intra-abdominal abnormalities. IMPRESSION: 1. Negative examination
[2017-11-17] MEDS: D5W w/20 mEq KCL 1,000 ML IV SCH ×2 (14:04→22:58)
--- NOTE | 2017-11-17 15:30 | History & Physical ---
ADMIT DATE: 11/17/2017 CHIEF COMPLAINT: Elevated BUN of 121 and creatinine of 2.3. HISTORY OF PRESENT ILLNESS: This is a 77-year-old female who is well known to me from [facility], was admitted to the telemetry unit due to an abnormal laboratory data. The patient's BUN at the shelter was 121 and creatinine was at 2.3 and sodium was at 167 and the patient was noted to have increase in altered mental status. For this reason, the patient is now admitted. PAST MEDICAL HISTORY: Type 2 diabetes, anemia and renal stones. PAST SURGICAL HISTORY: PEG. ALLERGIES: No drug allergies. SOCIAL HISTORY: The patient is a shelter resident, requiring 24-hour nursing care. FAMILY HISTORY: Noncontributory. MEDICATIONS: Omeprazole, Remeron, Nizoral cream, hydrocortisone cream, hydrocodone, haloperidol, clonidine hydrogel, aspirin and Norvasc. ALLERGIES: No drug allergies. REVIEW OF SYSTEMS: Unable to obtain due to patient's mental status. PHYSICAL EXAMINATION: GENERAL: Elderly female, appears chronically ill, in no apparent distress. VITAL SIGNS: Temperature 97.2, heart rate 76, blood pressure 124/76, respirations 18 and O2 95%. HEENT: Head normocephalic and atraumatic. NECK: Supple. No mass. LUNGS: Clear bilaterally. HEART: Regular rate and rhythm. ABDOMEN: Soft and nontender. LABORATORY DATA: WBC 5.7, H and H 7.5/22.9. Sodium 159, potassium 3.7, chloride 116, BUN 102, creatinine 2.4, whole lactic acid 0.99, ammonia level 62 and albumin of 3.1. Urinalysis, the patient had a UA done, positive for UTI. DIAGNOSTICS: The patient had a chest x-ray done and impression is no acute abnormality. ASSESSMENT: 1. Acute renal failure. 2. Altered mental status. 3. Hypernatremia. 4. Mild protein calorie malnutrition. 5. Urinary tract infection. 6. Anemia. 7. History of deep venous thrombosis. 8. Schizophrenia. 9. Hypertension. 10. Psychosis. PLAN: We will get sales representative trainee on the case. We will get a renal ultrasound done. Keep the patient is on aggressive IV fluids for hydration. Keep the patient on empiric IV antibiotics. For UTI, we will obtain a urine culture. We will monitor patient's BUN and creatinine. We will monitor patient's H and H as well. We will continue to monitor this patient. [facility]# [id number]
[2017-11-17] MEDS: Lactulose 10 Gm/15 mL 30mL UDC PO SCH (18:23)
[2017-11-17 19:37] LABS: A1C % 4.9 % (4.0-6.0)
[2017-11-18 06:31] LABS: % BASOPHILS 0.3 % (0.0-2.0); % EOSINOPHILS 3.5 % (0.0-5.0); % LYMPHOCYTES 20.1 % (20.0-50.0); % MONOCYTES 5.7 % (2.0-10.0); % NEUTROPHILS 70.4 % (40.0-80.0); ALB/GLOB RATIO 0.9 (1.0-1.8); ALBUMIN 3.1 gm/dL (3.7-5.3); ALKALINE PHOSPHATASE 109 U/L (34-104); ANION GAP 13.1 (7.0-16.0); BILIRUBIN,TOTAL 0.2 mg/dL (0.3-1.0); CALCIUM SERUM 9.1 mg/dL (8.6-10.3); CARBON DIOXIDE 28.1 mEq/L (21.0-31.0); CHLORIDE 111 mEq/L (98-107); CREATININE - SERUM 2.2 mg/dL (0.6-1.2); EOSINOPHILE ABSOLUTE 0.2 Th/cmm (0.1-0.4); GLUCOSE 195 mg/dL (70-105); HEMATOCRIT 22.3 % (41.0-60); LYMPHOCYTE ABSOLUTE 1.4 Th/cmm (1.5-3.0); MAGNESIUM 2.8 mg/dL (1.9-2.7); MEAN CELL VOLUME 90.5 fl (81-100); MEAN CORPUSCULAR HEMOGLOBIN 29.1 pg (27.0-31.0); MEAN CORPUSCULAR HGB CONC 32.2 pg (28.0-36.0); MEAN PLATELET VOLUME 10.5 fl; MONOCYTE ABSOLUTE 0.4 Th/cmm (0.3-1.0); NEUTROPHILE ABSOLUTE 4.8 Th/cmm (1.8-8.0); PLATELET COUNT 162 Th/cmm (150-400); POTASSIUM SERUM 4.2 mEq/L (3.5-5.1); RED BLOOD COUNT 2.46 Mil/cmm (3.80-5.20); RED CELL DISTRIBUTION WIDTH 15.7 % (11.5-20.0); SGOT 17 U/L (13-39); SGPT/ALT 23 U/L (7-52); SODIUM SERUM 148 mEq/L (136-145); TOTAL PROTEIN,SERUM 6.5 gm/dL (6.0-8.3); WHITE BLOOD COUNT 6.8 Th/cmm (4.8-10.8)
[2017-11-18 06:36] LABS: BUN - UREA NITROGEN 89 mg/dL (7-25)
[2017-11-18 06:52] LABS: HEMOGLOBIN 7.2 gm/dL (12-16)
[2017-11-18] MEDS: INSULIN ASPART, RECOMBINANT 100 UNITS/ML SUBQ SCH ×4 (06:55→22:01)
[2017-11-18] MEDS: Albuterol Nebulizer 2.5mg/3mL HHN SCH ×4 (07:24→19:11)
[2017-11-18] MEDS: Ipratropium Neb 0.5 mg/2.5 mL UD HHN SCH ×4 (07:24→19:11)
[2017-11-18 08:09] LABS: IRON LC 28 ug/dL (27-139); TIBC (LC) 183 ug/dL (250-450); UIBC 155 ug/dL (118-369)
[2017-11-18] MEDS: D5W w/20 mEq KCL 1,000 ML IV SCH (08:45)
[2017-11-18] MEDS: Lactulose 10 Gm/15 mL 30mL UDC PO SCH ×2 (11:04→18:05)
[2017-11-18] MEDS: Pantoprazole 40 mg EC Tab PO SCH (11:04)
[2017-11-18 11:09] LABS: FOLIC ACID >20.0 ng/mL (>3.0)
[2017-11-18] MEDS ORDERED: Levofloxacin 500mg/100mL 500 MG/100 ML BAG IV ONE (13:00)
[2017-11-18 14:39] LABS: ALLEN TEST PASS; pH 7.43 (7.35-7.45)
--- NOTE | 2017-11-18 15:49 | Internal Medicine Prog Note ---
Internal Medicine Subjective - Subjective Service Date: 11/18/17 (per nursing staff patient was very congested this morning ) Patient seen and examined:: with staff Patient is:: awake, verbal Per staff patient has:: tolerating meds Internal Medicine Objective - Results Result Diagrams: 11/18/17 05:20 11/18/17 05:20 Recent Labs: Laboratory Last Values WBC 6.8 Th/cmm (4.8-10.8) 11/18/17 05:20 RBC 2.46 Mil/cmm (3.80-5.20) L 11/18/17 05:20 Hgb 7.2 gm/dL (12-16) L* 11/18/17 05:20 Hct 22.3 % (41.0-60) L 11/18/17 05:20 MCV 90.5 fl (81-100) 11/18/17 05:20 MCH 29.1 pg (27.0-31.0) 11/18/17 05:20 MCHC Differential 32.2 pg (28.0-36.0) 11/18/17 05:20 RDW 15.7 % (11.5-20.0) 11/18/17 05:20 Plt Count 162 Th/cmm (150-400) 11/18/17 05:20 MPV 10.5 fl 11/18/17 05:20 Neutrophils % 70.4 % (40.0-80.0) 11/18/17 05:20 Lymphocytes % 20.1 % (20.0-50.0) 11/18/17 05:20 Monocytes % 5.7 % (2.0-10.0) 11/18/17 05:20 Eosinophils % 3.5 % (0.0-5.0) 11/18/17 05:20 Basophils % 0.3 % (0.0-2.0) 11/18/17 05:20 PT 9.8 SECONDS (9.5-11.5) 11/16/17 22:40 INR 0.94 (0.5-1.4) 11/16/17 22:40 PTT (Actin FS) 20.7 SECONDS (26.0-38.0) L 11/16/17 22:40 Specimen Source Arterial 11/18/17 14:31 Sample Site Left Radial 11/18/17 14:31 pH 7.43 (7.35-7.45) 11/18/17 14:31 pCO2 49.0 mmHg (35.0-45.0) H 11/18/17 14:31 pO2 81.0 mmHg (80.0-100.0) 11/18/17 14:31 HCO3 30.4 mEq/L (20.0-26.0) H 11/18/17 14:31 Base Excess 7.0 mEq/L (-3.0-3.0) H 11/18/17 14:31 O2 Saturation 96.0 % (92.0-100.0) 11/18/17 14:31 Rashid Test PASS 11/18/17 14:31 Inspired O2 21 11/18/17 14:31 Critical Value PW 11/18/17 14:31 Sodium 148 mEq/L (136-145) H 11/18/17 05:20 Potassium 4.2 mEq/L (3.5-5.1) 11/18/17 05:20 Chloride 111 mEq/L (98-107) H 11/18/17 05:20 Carbon Dioxide 28.1 mEq/L (21.0-31.0) 11/18/17 05:20 Anion Gap 13.1 (7.0-16.0) 11/18/17 05:20 BUN 89 mg/dL (7-25) H* 11/18/17 05:20 Creatinine 2.2 mg/dL (0.6-1.2) H 11/18/17 05:20 Est GFR ( Amer) TNP 11/18/17 05:20 Est GFR (Non-Af Amer) TNP 11/18/17 05:20 BUN/Creatinine Ratio 40.5 11/18/17 05:20 Glucose 195 mg/dL (70-105) H 11/18/17 05:20 POC Glucose 200 MG/DL (70 - 105) H 11/18/17 06:01 Hemoglobin A1c % 4.9 % (4.0-6.0) 11/17/17 05:45 Whole Bld Lactic Acid 0.99 mmol/L (0.60-1.99) 11/16/17 22:40 Calcium 9.1 mg/dL (8.6-10.3) 11/18/17 05:20 Magnesium 2.8 mg/dL (1.9-2.7) H 11/18/17 05:20 Iron 28 ug/dL (27-139) 11/17/17 11:15 TIBC 183 ug/dL (250-450) L 11/17/17 11:15 Iron Saturation 15 % (15-55) 11/17/17 11:15 Unsaturated IBC 155 ug/dL (118-369) 11/17/17 11:15 Total Bilirubin 0.2 mg/dL (0.3-1.0) L 11/18/17 05:20 AST 17 U/L (13-39) 11/18/17 05:20 ALT 23 U/L (7-52) 11/18/17 05:20 Alkaline Phosphatase 109 U/L (34-104) H 11/18/17 05:20 Ammonia 62 umol/L (16-53) H 11/17/17 05:45 Creatine Kinase 34 U/L (30-223) 11/16/17 22:40 Troponin I 0.03 ng/mL (0.01-0.05) 11/16/17 22:40 Total Protein 6.5 gm/dL (6.0-8.3) 11/18/17 05:20 Albumin 3.1 gm/dL (3.7-5.3) L 11/18/17 05:20 Globulin 3.4 gm/dL 11/18/17 05:20 Albumin/Globulin Ratio 0.9 (1.0-1.8) L 11/18/17 05:20 Vitamin B12 1392 pg/mL (232-1245) H 11/17/17 05:45 Folic Acid >20.0 ng/mL (>3.0) 11/17/17 05:45 Urine Source MIDSTREAM 11/16/17 23:55 Urine Color YELLOW 11/16/17 23:55 Urine Clarity CLEAR (CLEAR) 11/16/17 23:55 Urine pH 8.0 (4.6 - 8.0) 11/16/17 23:55 Ur Specific [place] 1.015 (1.005-1.030) 11/16/17 23:55 Urine Protein 100 mg/dL (NEGATIVE) H 11/16/17 23:55 Urine Glucose (UA) NEGATIVE mg/dL (NEGATIVE) 11/16/17 23:55 Urine Ketones NEGATIVE mg/dL (NEGATIVE) 11/16/17 23:55 Urine Blood NEGATIVE (NEGATIVE) 11/16/17 23:55 Urine Nitrate NEGATIVE (NEGATIVE) 11/16/17 23:55 Urine Bilirubin NEGATIVE (NEGATIVE) 11/16/17 23:55 Urine Urobilinogen 0.2 E.U./dL (0.2 - 1.0) 11/16/17 23:55 Ur Leukocyte Esterase LARGE (NEGATIVE) H 11/16/17 23:55 Urine RBC 0-2 /hpf (0-5) 11/16/17 23:55 Urine WBC 6-10 /hpf (0-5) H 11/16/17 23:55 Ur Epithelial Cells FEW /lpf (FEW) 11/16/17 23:55 Urine Bacteria FEW /hpf (NONE SEEN) 11/16/17 23:55 Blood Type O POSITIVE 11/18/17 13:21 Antibody Screen NEGATIVE 11/18/17 13:21 Crossmatch See Detail 11/18/17 13:21 - Physical Exam Vitals and I&O: Vital Signs Temp 96.7 F 11/18/17 12:06 Pulse 88 11/18/17 14:15 Resp 18 11/18/17 14:15 BP 131/77 11/18/17 12:06 Pulse Ox 99 11/18/17 14:15 Intake & Output 11/17/17 11/18/17 11/18/17 18:59 06:59 18:59 Intake Total 1000 2720 Output Total 550 Balance 1000 2170 Weight (lbs) 107 lb Intake: Intake, IV Amount 1000 2000 D5W w/20 mEq KCL 1,000 ml 2000 @ 125 mls/hr IV .Q8H [facility] Rx#:[id number] Dextrose 5% 1,000 ml @ 1000 125 mls/hr IV .Q8H [facility] Rx #:[id number] Tube Feeding 720 Output: Urine 550 Other: # Bowel Movements 1 Weight Source Bedscale Active Medications: Current Medications Acetaminophen (Tylenol) 650 mg GT Q4H PRN PRN Reason: TEMP >100.5 Stop: 01/15/18 23:34 Albuterol Sulfate (Albuterol 2.5mg/3ml Neb Ud) 2.5 mg HHN QIDRT ED Stop: 01/16/18 06:59 Last Admin: 11/18/17 14:15 Dose: 2.5 mg Amlodipine Besylate (Norvasc) 10 mg GT DAILY [facility] Stop: 01/16/18 08:59 Last Admin: 11/18/17 11:03 Dose: 10 mg Bandage/Support Products (Hydrogel) 1 appl TP DAILY [facility] Stop: 01/16/18 08:59 Last Admin: 11/17/17 10:22 Dose: 1 appl Haloperidol Decanoate (Haldol Dec) 25 mg IM [id number] [facility] Stop: 01/16/18 09:59 Last Admin: 11/17/17 14:04 Dose: Not Given Levofloxacin (Levaquin Pb) 250 mg in 50 mls @ 50 mls/hr IV Q48H [facility] Stop: 01/19/18 13:59 Potassium Chloride/Dextrose (D5w W/20 Meq Kcl) 1,000 mls @ 50 mls/hr IV .Q20H [facility] Stop: 01/17/18 14:29 Insulin Aspart (Novolog) 0 units SUBQ ACHS [facility]; Protocol Stop: 01/16/18 07:29 Last Admin: 11/18/17 11:43 Dose: 2 units Ipratropium Lafe (Atrovent Neb 0.5mg/2.5ml) 0.5 mg HHN QIDRT [facility] Stop: 01/16/18 06:59 Last Admin: 11/18/17 14:15 Dose: 0.5 mg Lactulose (Cephulac) 30 gm PO BID [facility] Stop: 01/16/18 16:59 Last Admin: 11/18/17 11:04 Dose: 30 gm Lorazepam (Ativan) 1 mg IV Q4H PRN; Protocol PRN Reason: Seizure Stop: 01/15/18 23:36 Mirtazapine (Remeron) 15 mg GT HS [facility]; Protocol Stop: 01/16/18 20:59 Last Admin: 11/17/17 20:58 Dose: 15 mg Miscellaneous (Clinical Monitoring) 1 ea MC PRN PRN PRN Reason: RENAL DOSE LEVAQUIN Stop: 01/17/18 12:53 Nitroglycerin (Nitrostat) 0.4 mg SL Q5MIN PRN PRN Reason: Chest Pain Stop: 01/15/18 23:37 Ondansetron HCl (Zofran) 4 mg IV Q8H PRN PRN Reason: Nausea / Vomiting Stop: 01/15/18 23:37 Pantoprazole Sodium (Protonix) 40 mg PO DAILY [facility] Stop: 01/16/18 08:59 Last Admin: 11/18/17 11:04 Dose: 40 mg General: alert HEENT: NC/AT, PERRLA Neck: Supple Lungs: CTAB Cardiovascular: RRR, Normal S1, Normal S2, without murmur Abdomen: soft, non-tender, non-distended, positive bowel sound Neurological: no change - Procedures Procedures: Procedures Procedure Code Date EGD PLACE GASTROSTOMY TUBE 65665 06/21/17 EXCISION OF ASCENDING COLON, ENDO, DIAGN [id number] 06/21/17 EXCISION OF CECUM, ENDO, DIAGN [id number] 06/21/17 EXCISION OF SIGMOID COLON, ENDO, DIAGN [id number] 06/21/17 EXCISION OF STOMACH, ENDO, DIAGN [id number] 06/21/17 INSERTION OF FEEDING DEVICE INTO STOMACH, PERC APPROACH [id number] 06/21/17 INSERTION OF INFUSION DEV INTO SUP VENA CAVA, PERC APPROACH [id number] 06/21/17 INTRODUCTION OF NUTRITIONAL INTO CENTRAL VEIN, PERC APPROACH [id number] 06/21/17 PARTIAL REMOVAL OF COLON 01968 06/21/17 RESECTION OF RIGHT LARGE INTESTINE, OPEN APPROACH [id number] 06/21/17 RESPIRATORY VENTILATION, LESS THAN 24 CONSECUTIVE HOURS [id number] 06/21/17 TRANSFUSE NONAUT RED BLOOD CELLS IN PERIPH VEIN, PERC [id number] 08/09/17 Internal Medicine Assmt/Plan - Assessment Assessment: acute renal failure altered mental status hypernatremia mild protein calorie malnutrition uti anemia hx dvt schizophrenia htn psychosis - Plan Plan: transfuse prbc chest xray today monitor h/h continue ivf follow up labs in am continue current plan of care Nutritional Asmnt/Malnutr-PDOC - Dietary Evaluation Malnutrition Findings (Please click <Entered> for more info): Nutritional Asmnt/Malnutrition Start: 11/17/17 16: 59 Text: Status: Complete Freq: Protocol: Document 11/17/17 16:59 LCHENG (Rec: 11/17/17 17:18 [id number] [id number]) Nutritional Asmnt/Malnutrition Patient General Information Nutritional Screening High Risk Diagnosis acute renal failure, dehydration Pertinent Medical Hx/Surgical Hx HTN, DM, dementia Subjective Information TF on hold this morning for future renal and abd U/S. Current Diet Order/ Nutrition Support Glucerna 1.2 60ml/hr x 20hr, provides 1200kcal, 54g protein Pertinent Medications novolog, cephulac, remeron, protonix, D5w w/20 meq kcl Pertinent Labs 11/17 Na 159, cl 116, BUN 102 ( treding down), Cr 2.4, glucose 222, POC 211 Nutritional Hx/Data Height 5 ft 3 in Height (Calculated Centimeters) 160.0 Current Weight (lbs) 107 lb Weight (Calculated Kilograms) 48.5 Weight (Calculated Grams) 99660.4 Dorothy Body Weight 115 Body Mass Index (BMI) 18.9 Weight Status Approriate GI Symptoms GI Symptoms None Last BM not indicated Difficult in: None Skin Integrity/Comment: scaral region SCAR Estimated Nutritional Goals BEE in Kcals: Using Current wt Calories/Kcals/Kg 25-30 Kcals Calculated 3536-7004 Protein: Using Current wt Protein g/k.6-0.8 Protein Calculated 38-48 Fluid: ml per MD Nutritional Problem 1. Problem Problem altered nutrition related lab Etiology acute renal failure, hx of DM Signs/Symptoms: BUN 102, Cr 2.4, glucose 222 Malnutrition Alert Is there a minimum of two criteria No selected? Query Text:Check all the applicable criteria. A minimum of two criteria are recommended for diagnosis of either severe or non-severe malnutrition. Malnutrition Related to Morbid Obesity Malnutrition related to morbid obesity No Intervention/Recommendation Comments 1. If BUN/Cr continue high, will consider decrease TF rate to lower protein intake. 2. Monitor TF rate, tolerance, wt, skin integrity and labs 3. F/U as high risk in 2-3 days, 11/19-11/20 Expected Outcomes/Goals Expected Outcomes/Goals 1. Pt to meet at least 75% of nutritional needs via nutrition support with tolerance 2. Wt stability, skin to remain intact, labs to approach WNL.
[2017-11-19] MEDS: D5W w/20 mEq KCL 1,000 ML IV SCH ×3 (00:17→12:03)
[2017-11-19 06:06] LABS: % BASOPHILS 0.4 % (0.0-2.0); % EOSINOPHILS 3.8 % (0.0-5.0); % MONOCYTES 6.4 % (2.0-10.0); % NEUTROPHILS 70.4 % (40.0-80.0); EOSINOPHILE ABSOLUTE 0.2 Th/cmm (0.1-0.4); HEMATOCRIT 27.4 % (41.0-60); LYMPHOCYTE ABSOLUTE 1.1 Th/cmm (1.5-3.0); MEAN CELL VOLUME 89.7 fl (81-100); MEAN CORPUSCULAR HEMOGLOBIN 29.4 pg (27.0-31.0); MEAN CORPUSCULAR HGB CONC 32.8 pg (28.0-36.0); MEAN PLATELET VOLUME 11.8 fl; MONOCYTE ABSOLUTE 0.4 Th/cmm (0.3-1.0); NEUTROPHILE ABSOLUTE 3.9 Th/cmm (1.8-8.0); PLATELET COUNT 156 Th/cmm (150-400); RED BLOOD COUNT 3.06 Mil/cmm (3.80-5.20); RED CELL DISTRIBUTION WIDTH 15.3 % (11.5-20.0); WHITE BLOOD COUNT 5.6 Th/cmm (4.8-10.8)
[2017-11-19 06:16] LABS: ALB/GLOB RATIO 0.9 (1.0-1.8); ALBUMIN 2.8 gm/dL (3.7-5.3); ALKALINE PHOSPHATASE 116 U/L (34-104); ANION GAP 11.3 (7.0-16.0); BILIRUBIN,TOTAL 0.2 mg/dL (0.3-1.0); BUN - UREA NITROGEN 68 mg/dL (7-25); CALCIUM SERUM 8.9 mg/dL (8.6-10.3); CARBON DIOXIDE 27.5 mEq/L (21.0-31.0); CHLORIDE 108 mEq/L (98-107); CREATININE - SERUM 2.1 mg/dL (0.6-1.2); GLUCOSE 129 mg/dL (70-105); POTASSIUM SERUM 3.8 mEq/L (3.5-5.1); SGOT 24 U/L (13-39); SGPT/ALT 25 U/L (7-52); SODIUM SERUM 143 mEq/L (136-145); TOTAL PROTEIN,SERUM 6.1 gm/dL (6.0-8.3)
[2017-11-19] MEDS: Albuterol Nebulizer 2.5mg/3mL HHN SCH ×4 (06:24→19:23)
[2017-11-19] MEDS: Ipratropium Neb 0.5 mg/2.5 mL UD HHN SCH ×4 (06:25→19:23)
--- NOTE | 2017-11-19 08:50 | Diagnostic Imaging Report ---
CHEST X-RAY: AP view INDICATION: Shortness of breath Comparison: Multiple chest x-rays dating back to 06/21/2017 FINDINGS: There is a 1.5 cm nodular density projecting along the right lower hemithorax. This probably represents nipple shadow when compared to multiple prior exams. There is mild elevation of the left hemidiaphragm. Gas-filled loops of bowel of the upper quadrant are noted. No focal consolidation or pleural effusions. Heart size normal. Mildly tortuous aorta is noted. IMPRESSION: 1.5 cm nodular density projecting along the right lower hemithorax. This probably represents a nipple shadow when compared to multiple previous examinations. A follow-up exam with nipple markers recommended. Mild elevation of the left hemidiaphragm. No focal consolidation identified.
--- NOTE | 2017-11-19 09:04 | Diagnostic Imaging Report ---
Head CT without intravenous contrast Indication: Stroke Comparison: Head CT on 08/09/2017 Technique: Axial images were obtained from the vertex to the skull base without IV contrast. Coronal reconstructions were made. Total DLP: 667, CTDI 36 Findings: Images of the brain obtained without contrast demonstrate no evidence of an acute hemorrhage. Atrophy is noted. Diffuse white matter disease is noted most pronounced along the high frontal and parietal lobe regions. The ventricles and basal cisterns are patent. No mass effect or midline shift. No obvious skull fracture or focal soft tissue swelling. Note exam is limited due to motion. Sclerotic bilateral mastoid air cells are noted. There is mucosal thickening and partial opacification of bilateral posterior ethmoid air cells. IMPRESSION: No evidence of an acute intracranial hemorrhage. Diffuse supratentorial white matter disease which is nonspecific and may be due to chronic microvessel ischemia. Given patient's clinical history, if indicated, MRI follow-up may also be obtained for further assessment. Atrophy. Sclerotic bilateral mastoid air cells which may be due to chronic inflammatory process Posterior ethmoid sinus air cell inflammatory disease.
[2017-11-19] MEDS: Lactulose 10 Gm/15 mL 30mL UDC PO SCH ×2 (09:37→16:32)
[2017-11-19] MEDS: Pantoprazole 40 mg EC Tab PO SCH (09:38)
[2017-11-19] MEDS: INSULIN ASPART, RECOMBINANT 100 UNITS/ML SUBQ SCH ×4 (10:46→22:14)
[2017-11-19] MEDS: Hydrogel 3 oz Tube TP SCH (12:59)
[2017-11-19] MEDS ORDERED: Hydrocodone/APAP 5mg/325mg Tab PO PRN (14:42)
--- NOTE | 2017-11-19 14:45 | Internal Medicine Prog Note ---
Internal Medicine Subjective - Subjective Patient seen and examined:: with staff, chart reviewed Patient is:: awake, non-verbal, non-interactive, eyes closed, confused, congested Per staff patient has:: no adverse event, no episodes of fall, agitated, combative, tolerating meds Internal Medicine Objective - Results Result Diagrams: 11/19/17 05:30 11/19/17 05:30 Recent Labs: Laboratory Last Values WBC 5.6 Th/cmm (4.8-10.8) 11/19/17 05:30 RBC 3.06 Mil/cmm (3.80-5.20) L 11/19/17 05:30 Hgb 9.0 gm/dL (12-16) L 11/19/17 05:30 Hct 27.4 % (41.0-60) L 11/19/17 05:30 MCV 89.7 fl (81-100) 11/19/17 05:30 MCH 29.4 pg (27.0-31.0) 11/19/17 05:30 MCHC Differential 32.8 pg (28.0-36.0) 11/19/17 05:30 RDW 15.3 % (11.5-20.0) 11/19/17 05:30 Plt Count 156 Th/cmm (150-400) 11/19/17 05:30 MPV 11.8 fl 11/19/17 05:30 Neutrophils % 70.4 % (40.0-80.0) 11/19/17 05:30 Lymphocytes % 19.0 % (20.0-50.0) L 11/19/17 05:30 Monocytes % 6.4 % (2.0-10.0) 11/19/17 05:30 Eosinophils % 3.8 % (0.0-5.0) 11/19/17 05:30 Basophils % 0.4 % (0.0-2.0) 11/19/17 05:30 PT 9.8 SECONDS (9.5-11.5) 11/16/17 22:40 INR 0.94 (0.5-1.4) 11/16/17 22:40 PTT (Actin FS) 20.7 SECONDS (26.0-38.0) L 11/16/17 22:40 Specimen Source Arterial 11/18/17 14:31 Sample Site Left Radial 11/18/17 14:31 pH 7.43 (7.35-7.45) 11/18/17 14:31 pCO2 49.0 mmHg (35.0-45.0) H 11/18/17 14:31 pO2 81.0 mmHg (80.0-100.0) 11/18/17 14:31 HCO3 30.4 mEq/L (20.0-26.0) H 11/18/17 14:31 Base Excess 7.0 mEq/L (-3.0-3.0) H 11/18/17 14:31 O2 Saturation 96.0 % (92.0-100.0) 11/18/17 14:31 Rashid Test PASS 11/18/17 14:31 Inspired O2 21 11/18/17 14:31 Critical Value PW 11/18/17 14:31 Sodium 143 mEq/L (136-145) 11/19/17 05:30 Potassium 3.8 mEq/L (3.5-5.1) 11/19/17 05:30 Chloride 108 mEq/L (98-107) H 11/19/17 05:30 Carbon Dioxide 27.5 mEq/L (21.0-31.0) 11/19/17 05:30 Anion Gap 11.3 (7.0-16.0) 11/19/17 05:30 BUN 68 mg/dL (7-25) H 11/19/17 05:30 Creatinine 2.1 mg/dL (0.6-1.2) H 11/19/17 05:30 Est GFR ( Amer) TNP 11/19/17 05:30 Est GFR (Non-Af Amer) [facility] 11/19/17 05:30 BUN/Creatinine Ratio 32.4 11/19/17 05:30 Glucose 129 mg/dL (70-105) H 11/19/17 05:30 POC Glucose 120 MG/DL (70 - 105) H 11/19/17 12:32 Hemoglobin A1c % 4.9 % (4.0-6.0) 11/17/17 05:45 Whole Bld Lactic Acid 0.99 mmol/L (0.60-1.99) 11/16/17 22:40 Calcium 8.9 mg/dL (8.6-10.3) 11/19/17 05:30 Magnesium 2.8 mg/dL (1.9-2.7) H 11/18/17 05:20 Iron 28 ug/dL (27-139) 11/17/17 11:15 TIBC 183 ug/dL (250-450) L 11/17/17 11:15 Iron Saturation 15 % (15-55) 11/17/17 11:15 Unsaturated IBC 155 ug/dL (118-369) 11/17/17 11:15 Total Bilirubin 0.2 mg/dL (0.3-1.0) L 11/19/17 05:30 AST 24 U/L (13-39) 11/19/17 05:30 ALT 25 U/L (7-52) 11/19/17 05:30 Alkaline Phosphatase 116 U/L (34-104) H 11/19/17 05:30 Ammonia 62 umol/L (16-53) H 11/17/17 05:45 Creatine Kinase 34 U/L (30-223) 11/16/17 22:40 Troponin I 0.03 ng/mL (0.01-0.05) 11/16/17 22:40 B-Natriuretic Peptide 64.4 pg/mL (5.0-100.0) 11/19/17 05:30 Total Protein 6.1 gm/dL (6.0-8.3) 11/19/17 05:30 Albumin 2.8 gm/dL (3.7-5.3) L 11/19/17 05:30 Globulin 3.3 gm/dL 11/19/17 05:30 Albumin/Globulin Ratio 0.9 (1.0-1.8) L 11/19/17 05:30 Vitamin B12 1392 pg/mL (232-1245) H 11/17/17 05:45 Folic Acid >20.0 ng/mL (>3.0) 11/17/17 05:45 Urine Source MIDSTREAM 11/16/17 23:55 Urine Color YELLOW 11/16/17 23:55 Urine Clarity CLEAR (CLEAR) 11/16/17 23:55 Urine pH 8.0 (4.6 - 8.0) 11/16/17 23:55 Ur Specific [place] 1.015 (1.005-1.030) 11/16/17 23:55 Urine Protein 100 mg/dL (NEGATIVE) H 11/16/17 23:55 Urine Glucose (UA) NEGATIVE mg/dL (NEGATIVE) 11/16/17 23:55 Urine Ketones NEGATIVE mg/dL (NEGATIVE) 11/16/17 23:55 Urine Blood NEGATIVE (NEGATIVE) 11/16/17 23:55 Urine Nitrate NEGATIVE (NEGATIVE) 11/16/17 23:55 Urine Bilirubin NEGATIVE (NEGATIVE) 11/16/17 23:55 Urine Urobilinogen 0.2 E.U./dL (0.2 - 1.0) 11/16/17 23:55 Ur Leukocyte Esterase LARGE (NEGATIVE) H 11/16/17 23:55 Urine RBC 0-2 /hpf (0-5) 11/16/17 23:55 Urine WBC 6-10 /hpf (0-5) H 11/16/17 23:55 Ur Epithelial Cells FEW /lpf (FEW) 11/16/17 23:55 Urine Bacteria FEW /hpf (NONE SEEN) 11/16/17 23:55 Blood Type O POSITIVE 11/18/17 13:21 Antibody Screen NEGATIVE 11/18/17 13:21 Crossmatch See Detail 11/18/17 13:21 - Physical Exam Vitals and I&O: Vital Signs Temp 97.5 F 11/19/17 09:05 Pulse 78 11/19/17 14:32 Resp 16 11/19/17 14:32 BP 145/81 11/19/17 09:37 Pulse Ox 99 11/19/17 14:32 Intake & Output 11/18/17 11/19/17 11/19/17 18:59 06:59 18:59 Intake Total 1400 100 541.667 Output Total 600 Balance 800 100 541.667 Weight (lbs) 48.534 kg 48.534 kg Intake: Intake, IV Amount 1000 541.667 D5W w/20 mEq KCL 1,000 ml 541.667 @ 50 mls/hr IV .Q20H [facility] Rx#:[id number] Tube Feeding 400 100 Output: Urine 600 Other: Stool Characteristics Liquid Liquid Brown Brown Weight Source Bedscale Bedscale Active Medications: Current Medications Acetaminophen (Tylenol) 650 mg GT Q4H PRN PRN Reason: TEMP >100.5 Stop: 01/15/18 23:34 Acetaminophen/Hydrocodone Bitart ([place] 5mg/325mg) 1 tab PO Q4H PRN PRN Reason: Pain (Severe) Stop: 01/18/18 14:41 Albuterol Sulfate (Albuterol 2.5mg/3ml Neb Ud) 2.5 mg HHN QIDRT ED Stop: 01/16/18 06:59 Last Admin: 11/19/17 14:32 Dose: 2.5 mg Amlodipine Besylate (Norvasc) 10 mg GT DAILY ED Stop: 01/16/18 08:59 Last Admin: 11/19/17 09:37 Dose: 10 mg Bandage/Support Products (Hydrogel) 1 appl TP DAILY ED Stop: 01/16/18 08:59 Last Admin: 11/19/17 12:59 Dose: 1 appl Haloperidol Decanoate (Haldol Dec) 25 mg IM [id number] ED Stop: 01/16/18 09:59 Last Admin: 11/17/17 14:04 Dose: Not Given Levofloxacin (Levaquin Pb) 250 mg in 50 mls @ 50 mls/hr IV Q48H ED Stop: 01/19/18 13:59 Dextrose/Sodium Chloride (D5-0.45ns) 1,000 mls @ 60 mls/hr IV .[id number] ED Stop: 01/18/18 14:44 Insulin Aspart (Novolog) 0 units SUBQ ACHS ED; Protocol Stop: 01/16/18 07:29 Last Admin: 11/19/17 12:33 Dose: Not Given Ipratropium [place] (Atrovent Neb 0.5mg/2.5ml) 0.5 mg HHN QIDRT ED Stop: 01/16/18 06:59 Last Admin: 11/19/17 14:32 Dose: 0.5 mg Lactulose (Cephulac) 30 gm PO BID ED Stop: 01/16/18 16:59 Last Admin: 11/19/17 09:37 Dose: 30 gm Lorazepam (Ativan) 1 mg IV Q4H PRN; Protocol PRN Reason: Seizure Stop: 01/15/18 23:36 Mirtazapine (Remeron) 15 mg GT HS ED; Protocol Stop: 01/16/18 20:59 Last Admin: 11/19/17 00:14 Dose: Not Given Miscellaneous (Clinical Monitoring) 1 ea MC PRN PRN PRN Reason: RENAL DOSE LEVAQUIN Stop: 01/17/18 12:53 Nitroglycerin (Nitrostat) 0.4 mg SL Q5MIN PRN PRN Reason: Chest Pain Stop: 01/15/18 23:37 Ondansetron HCl (Zofran) 4 mg IV Q8H PRN PRN Reason: Nausea / Vomiting Stop: 01/15/18 23:37 Pantoprazole Sodium (Protonix) 40 mg PO DAILY ED Stop: 01/16/18 08:59 Last Admin: 11/19/17 09:38 Dose: 40 mg General: demented HEENT: NC/AT, PERRLA Neck: Supple Lungs: congested, rales Cardiovascular: RRR, Normal S1, Normal S2, with murmur Abdomen: soft, non-tender, thin, non-distended, positive bowel sound Extremities: excoriation, contracture Neurological: no change - Procedures Procedures: Procedures Procedure Code Date EGD PLACE GASTROSTOMY TUBE 72159 06/21/17 EXCISION OF ASCENDING COLON, ENDO, DIAGN [id number] 06/21/17 EXCISION OF CECUM, ENDO, DIAGN [id number] 06/21/17 EXCISION OF SIGMOID COLON, ENDO, DIAGN [id number] 06/21/17 EXCISION OF STOMACH, ENDO, DIAGN [id number] 06/21/17 INSERTION OF FEEDING DEVICE INTO STOMACH, PERC APPROACH [id number] 06/21/17 INSERTION OF INFUSION DEV INTO SUP VENA CAVA, PERC APPROACH 51PR96B 06/21/17 INTRODUCTION OF NUTRITIONAL INTO CENTRAL VEIN, PERC APPROACH [id number] 06/21/17 PARTIAL REMOVAL OF COLON 01926 06/21/17 RESECTION OF RIGHT LARGE INTESTINE, OPEN APPROACH [id number] 06/21/17 RESPIRATORY VENTILATION, LESS THAN 24 CONSECUTIVE HOURS 2I3682U 06/21/17 TRANSFUSE NONAUT RED BLOOD CELLS IN PERIPH VEIN, PERC 06413K7 08/09/17 Internal Medicine Assmt/Plan - Assessment Assessment: - Assessment Assessment: acute renal failure altered mental status hypernatremia mild protein calorie malnutrition uti anemia hx dvt schizophrenia htn psychosis - Plan Plan: transfuse prbc chest xray today monitor h/h continue ivf follow up labs in am continue current plan of care - Plan Plan: ct head negative dw dr baldwin and rn Nutritional Asmnt/Malnutr-PDOC - Dietary Evaluation Malnutrition Findings (Please click <Entered> for more info): Nutritional Asmnt/Malnutrition Start: 11/17/17 16: 59 Text: Status: Complete Freq: Protocol: Document 11/17/17 16:59 GRISELDA (Rec: 11/17/17 17:18 LCHARSHAD [email or web address]) Nutritional Asmnt/Malnutrition Patient General Information Nutritional Screening High Risk Diagnosis acute renal failure, dehydration Pertinent Medical Hx/Surgical Hx HTN, DM, dementia Subjective Information TF on hold this morning for future renal and abd U/S. Current Diet Order/ Nutrition Support Glucerna 1.2 60ml/hr x 20hr, provides 1200kcal, 54g protein Pertinent Medications novolog, cephulac, remeron, protonix, D5w w/20 meq kcl Pertinent Labs 11/17 Na 159, cl 116, BUN 102 ( treding down), Cr 2.4, glucose 222, POC 211 Nutritional Hx/Data Height 1.6 m Height (Calculated Centimeters) 160.0 Current Weight (lbs) 48.534 kg Weight (Calculated Kilograms) 48.5 Weight (Calculated Grams) 29082.4 [place] Body Weight 115 Body Mass Index (BMI) 18.9 Weight Status Approriate GI Symptoms GI Symptoms None Last BM not indicated Difficult in: None Skin Integrity/Comment: scaral region SCAR Estimated Nutritional Goals BEE in Kcals: Using Current wt Calories/Kcals/Kg 25-30 Kcals Calculated 7123-5634 Protein: Using Current wt Protein g/k.6-0.8 Protein Calculated 38-48 Fluid: ml per MD Nutritional Problem 1. Problem Problem altered nutrition related lab Etiology acute renal failure, hx of DM Signs/Symptoms: BUN 102, Cr 2.4, glucose 222 Malnutrition Alert Is there a minimum of two criteria No selected? Query Text:Check all the applicable criteria. A minimum of two criteria are recommended for diagnosis of either severe or non-severe malnutrition. Malnutrition Related to Morbid Obesity Malnutrition related to morbid obesity No Intervention/Recommendation Comments 1. If BUN/Cr continue high, will consider decrease TF rate to lower protein intake. 2. Monitor TF rate, tolerance, wt, skin integrity and labs 3. F/U as high risk in 2-3 days, 11/19-11/20 Expected Outcomes/Goals Expected Outcomes/Goals 1. Pt to meet at least 75% of nutritional needs via nutrition support with tolerance 2. Wt stability, skin to remain intact, labs to approach WNL.
[2017-11-19] MEDS: D5-0.45NS 1,000 ML IV SCH (16:46)
[2017-11-20 05:59] LABS: % BASOPHILS 0.2 % (0.0-2.0); % LYMPHOCYTES 21.6 % (20.0-50.0); % MONOCYTES 6.8 % (2.0-10.0); % NEUTROPHILS 67.4 % (40.0-80.0); EOSINOPHILE ABSOLUTE 0.2 Th/cmm (0.1-0.4); HEMATOCRIT 28.1 % (41.0-60); HEMOGLOBIN 9.1 gm/dL (12-16); LYMPHOCYTE ABSOLUTE 1.3 Th/cmm (1.5-3.0); MEAN CELL VOLUME 89.1 fl (81-100); MEAN CORPUSCULAR HEMOGLOBIN 28.8 pg (27.0-31.0); MEAN CORPUSCULAR HGB CONC 32.3 pg (28.0-36.0); MEAN PLATELET VOLUME 11.4 fl; MONOCYTE ABSOLUTE 0.4 Th/cmm (0.3-1.0); NEUTROPHILE ABSOLUTE 4.2 Th/cmm (1.8-8.0); PLATELET COUNT 177 Th/cmm (150-400); RED BLOOD COUNT 3.16 Mil/cmm (3.80-5.20); RED CELL DISTRIBUTION WIDTH 14.5 % (11.5-20.0); WHITE BLOOD COUNT 6.1 Th/cmm (4.8-10.8)
[2017-11-20 06:19] LABS: ANION GAP 13.1 (7.0-16.0); BUN - UREA NITROGEN 52 mg/dL (7-25); CALCIUM SERUM 8.7 mg/dL (8.6-10.3); CARBON DIOXIDE 24.6 mEq/L (21.0-31.0); CHLORIDE 107 mEq/L (98-107); GLUCOSE 197 mg/dL (70-105); POTASSIUM SERUM 3.7 mEq/L (3.5-5.1); SODIUM SERUM 141 mEq/L (136-145)
[2017-11-20] MEDS: D5-0.45NS 1,000 ML IV SCH (06:28)
[2017-11-20] MEDS: Ipratropium Neb 0.5 mg/2.5 mL UD HHN SCH ×4 (06:30→18:39)
[2017-11-20] MEDS: Albuterol Nebulizer 2.5mg/3mL HHN SCH ×4 (06:31→18:39)
[2017-11-20] MEDS: INSULIN ASPART, RECOMBINANT 100 UNITS/ML SUBQ SCH ×4 (07:04→21:10)
[2017-11-20] MEDS: Pantoprazole 40 mg EC Tab PO SCH (09:19)
[2017-11-20] MEDS: Hydrogel 3 oz Tube TP SCH (09:20)
[2017-11-20] MEDS: Lactulose 10 Gm/15 mL 30mL UDC PO SCH ×2 (09:20→17:05)
[2017-11-20 10:46] LABS: SURFACE AREA 1.48
--- NOTE | 2017-11-20 11:52 | Internal Medicine Prog Note ---
Internal Medicine Subjective - Subjective Patient seen and examined:: with staff, chart reviewed Patient is:: awake, non-verbal, non-interactive, eyes closed, confused, congested Per staff patient has:: no adverse event, no episodes of fall, agitated, combative, tolerating meds Internal Medicine Objective - Results Result Diagrams: 11/20/17 05:30 11/20/17 05:30 Recent Labs: Laboratory Last Values WBC 6.1 Th/cmm (4.8-10.8) 11/20/17 05:30 RBC 3.16 Mil/cmm (3.80-5.20) L 11/20/17 05:30 Hgb 9.1 gm/dL (12-16) L 11/20/17 05:30 Hct 28.1 % (41.0-60) L 11/20/17 05:30 MCV 89.1 fl (81-100) 11/20/17 05:30 MCH 28.8 pg (27.0-31.0) 11/20/17 05:30 MCHC Differential 32.3 pg (28.0-36.0) 11/20/17 05:30 RDW 14.5 % (11.5-20.0) 11/20/17 05:30 Plt Count 177 Th/cmm (150-400) 11/20/17 05:30 MPV 11.4 fl 11/20/17 05:30 Neutrophils % 67.4 % (40.0-80.0) 11/20/17 05:30 Lymphocytes % 21.6 % (20.0-50.0) 11/20/17 05:30 Monocytes % 6.8 % (2.0-10.0) 11/20/17 05:30 Eosinophils % 4.0 % (0.0-5.0) 11/20/17 05:30 Basophils % 0.2 % (0.0-2.0) 11/20/17 05:30 PT 9.8 SECONDS (9.5-11.5) 11/16/17 22:40 INR 0.94 (0.5-1.4) 11/16/17 22:40 PTT (Actin FS) 20.7 SECONDS (26.0-38.0) L 11/16/17 22:40 Specimen Source Arterial 11/18/17 14:31 Sample Site Left Radial 11/18/17 14:31 pH 7.43 (7.35-7.45) 11/18/17 14:31 pCO2 49.0 mmHg (35.0-45.0) H 11/18/17 14:31 pO2 81.0 mmHg (80.0-100.0) 11/18/17 14:31 HCO3 30.4 mEq/L (20.0-26.0) H 11/18/17 14:31 Base Excess 7.0 mEq/L (-3.0-3.0) H 11/18/17 14:31 O2 Saturation 96.0 % (92.0-100.0) 11/18/17 14:31 Rashid Test PASS 11/18/17 14:31 Inspired O2 21 11/18/17 14:31 Critical Value PW 11/18/17 14:31 Sodium 141 mEq/L (136-145) 11/20/17 05:30 Potassium 3.7 mEq/L (3.5-5.1) 11/20/17 05:30 Chloride 107 mEq/L (98-107) 11/20/17 05:30 Carbon Dioxide 24.6 mEq/L (21.0-31.0) 11/20/17 05:30 Anion Gap 13.1 (7.0-16.0) 11/20/17 05:30 BUN 52 mg/dL (7-25) H 11/20/17 05:30 Creatinine 2.0 mg/dL (0.6-1.2) H 11/20/17 05:30 Est GFR ( Amer) TNP 11/20/17 05:30 Est GFR (Non-Af Amer) TNP 11/20/17 05:30 BUN/Creatinine Ratio 26.0 11/20/17 05:30 Glucose 197 mg/dL (70-105) H 11/20/17 05:30 POC Glucose 172 MG/DL (70 - 105) H 11/20/17 06:36 Hemoglobin A1c % 4.9 % (4.0-6.0) 11/17/17 05:45 Whole Bld Lactic Acid 0.99 mmol/L (0.60-1.99) 11/16/17 22:40 Calcium 8.7 mg/dL (8.6-10.3) 11/20/17 05:30 Magnesium 2.8 mg/dL (1.9-2.7) H 11/18/17 05:20 Iron 28 ug/dL (27-139) 11/17/17 11:15 TIBC 183 ug/dL (250-450) L 11/17/17 11:15 Iron Saturation 15 % (15-55) 11/17/17 11:15 Unsaturated IBC 155 ug/dL (118-369) 11/17/17 11:15 Total Bilirubin 0.2 mg/dL (0.3-1.0) L 11/19/17 05:30 AST 24 U/L (13-39) 11/19/17 05:30 ALT 25 U/L (7-52) 11/19/17 05:30 Alkaline Phosphatase 116 U/L (34-104) H 11/19/17 05:30 Ammonia 62 umol/L (16-53) H 11/17/17 05:45 Creatine Kinase 34 U/L (30-223) 11/16/17 22:40 Troponin I 0.03 ng/mL (0.01-0.05) 11/16/17 22:40 B-Natriuretic Peptide 104.0 pg/mL (5.0-100.0) H 11/20/17 05:30 Total Protein 6.1 gm/dL (6.0-8.3) 11/19/17 05:30 Albumin 2.8 gm/dL (3.7-5.3) L 11/19/17 05:30 Globulin 3.3 gm/dL 11/19/17 05:30 Albumin/Globulin Ratio 0.9 (1.0-1.8) L 11/19/17 05:30 Vitamin B12 1392 pg/mL (232-1245) H 11/17/17 05:45 Folic Acid >20.0 ng/mL (>3.0) 11/17/17 05:45 Urine Source MIDSTREAM 11/16/17 23:55 Urine Color YELLOW 11/16/17 23:55 Urine Clarity CLEAR (CLEAR) 11/16/17 23:55 Urine pH 8.0 (4.6 - 8.0) 11/16/17 23:55 Ur Specific [place] 1.015 (1.005-1.030) 11/16/17 23:55 Urine Protein 100 mg/dL (NEGATIVE) H 11/16/17 23:55 Urine Glucose (UA) NEGATIVE mg/dL (NEGATIVE) 11/16/17 23:55 Urine Ketones NEGATIVE mg/dL (NEGATIVE) 11/16/17 23:55 Urine Blood NEGATIVE (NEGATIVE) 11/16/17 23:55 Urine Nitrate NEGATIVE (NEGATIVE) 11/16/17 23:55 Urine Bilirubin NEGATIVE (NEGATIVE) 11/16/17 23:55 Urine Urobilinogen 0.2 E.U./dL (0.2 - 1.0) 11/16/17 23:55 Ur Leukocyte Esterase LARGE (NEGATIVE) H 11/16/17 23:55 Urine RBC 0-2 /hpf (0-5) 11/16/17 23:55 Urine WBC 6-10 /hpf (0-5) H 11/16/17 23:55 Ur Epithelial Cells FEW /lpf (FEW) 11/16/17 23:55 Urine Bacteria FEW /hpf (NONE SEEN) 11/16/17 23:55 Urine Collection Time 24 hours 11/20/17 04:00 Urine Total Volume 1450 ml 11/20/17 04:00 Urine Creatinine 37.0 mg/dl (28.0-217.0) 11/20/17 04:00 Ur Creatinine 24 Hour 537 mg/24hr (11-20) H 11/20/17 04:00 Creat Clearance 24 Hr 22 ml/min (88.00-128.00) L 11/20/17 04:00 Body Surface Area 1.48 11/20/17 04:00 Blood Type O POSITIVE 11/18/17 13:21 Antibody Screen NEGATIVE 11/18/17 13:21 Crossmatch See Detail 11/18/17 13:21 - Physical Exam Vitals and I&O: Vital Signs Temp 98.3 F 11/20/17 07:55 Pulse 89 11/20/17 09:19 Resp 19 11/20/17 08:00 BP 155/98 11/20/17 09:19 Pulse Ox 99 11/20/17 07:55 Intake & Output 11/19/17 11/20/17 11/20/17 18:59 06:59 18:59 Intake Total 541.667 872 Output Total 700 Balance 541.667 172 Weight (lbs) 48.534 kg Intake: Intake, IV Amount 541.667 872 Cefepime 1 gm In Dextrose 50 5% 50 ml @ 100 mls/hr IV Q24HR [facility] Rx#:[id number] D5-0.45NS 1,000 ml @ 60 822 mls/hr IV .[id number] [facility] Rx #:[id number] D5W w/20 mEq KCL 1,000 ml 541.667 @ 50 mls/hr IV .Q20H [facility] Rx#:[id number] Output: Urine 700 Other: # Bowel Movements 2 Stool Characteristics Liquid Liquid Liquid Brown Brown Brown Weight Source Bedscale Active Medications: Current Medications Acetaminophen (Tylenol) 650 mg GT Q4H PRN PRN Reason: TEMP >100.5 Stop: 01/15/18 23:34 Acetaminophen/Hydrocodone Bitart ([place] 5mg/325mg) 1 tab PO Q4H PRN PRN Reason: Pain (Severe) Stop: 01/18/18 14:41 Albuterol Sulfate (Albuterol 2.5mg/3ml Neb Ud) 2.5 mg HHN QIDRT [facility] Stop: 01/16/18 06:59 Last Admin: 11/20/17 11:44 Dose: 2.5 mg Amlodipine Besylate (Norvasc) 10 mg GT DAILY [facility] Stop: 01/16/18 08:59 Last Admin: 11/20/17 09:19 Dose: 10 mg Bandage/Support Products (Hydrogel) 1 appl TP DAILY [facility] Stop: 01/16/18 08:59 Last Admin: 11/20/17 09:20 Dose: 1 appl Haloperidol Decanoate (Haldol Dec) 25 mg IM [id number] [facility] Stop: 01/16/18 09:59 Last Admin: 11/17/17 14:04 Dose: Not Given Dextrose/Sodium Chloride (D5-0.45ns) 1,000 mls @ 60 mls/hr IV .[id number] [facility] Stop: 01/18/18 14:44 Last Admin: 11/20/17 06:28 Dose: 60 mls/hr Cefepime HCl 1 gm/ Dextrose 50 mls @ 100 mls/hr IV Q24HR [facility] Stop: 01/18/18 20:59 Last Infusion: 11/19/17 21:48 Dose: Infused Insulin Aspart (Novolog) 0 units SUBQ ACHS [facility]; Protocol Stop: 01/16/18 07:29 Last Admin: 11/20/17 11:32 Dose: Not Given Ipratropium [place] (Atrovent Neb 0.5mg/2.5ml) 0.5 mg HHN QIDRT ED Stop: 01/16/18 06:59 Last Admin: 11/20/17 11:44 Dose: 0.5 mg Lactulose (Cephulac) 30 gm PO BID ED Stop: 01/16/18 16:59 Last Admin: 11/20/17 09:20 Dose: 30 gm Lorazepam (Ativan) 1 mg IV Q4H PRN; Protocol PRN Reason: Seizure Stop: 01/15/18 23:36 Mirtazapine (Remeron) 15 mg GT HS ED; Protocol Stop: 01/16/18 20:59 Last Admin: 11/19/17 21:18 Dose: 15 mg Miscellaneous (Clinical Monitoring) 1 ea MC PRN PRN PRN Reason: RENAL DOSE LEVAQUIN Stop: 01/17/18 12:53 Nitroglycerin (Nitrostat) 0.4 mg SL Q5MIN PRN PRN Reason: Chest Pain Stop: 01/15/18 23:37 Ondansetron HCl (Zofran) 4 mg IV Q8H PRN PRN Reason: Nausea / Vomiting Stop: 01/15/18 23:37 Pantoprazole Sodium (Protonix) 40 mg PO DAILY [facility] Stop: 01/16/18 08:59 Last Admin: 11/20/17 09:19 Dose: 40 mg General: demented HEENT: NC/AT, PERRLA Neck: Supple Lungs: congested, rales Cardiovascular: RRR, Normal S1, Normal S2, with murmur Abdomen: soft, non-tender, thin, non-distended, positive bowel sound Extremities: excoriation, contracture Neurological: no change - Procedures Procedures: Procedures Procedure Code Date EGD PLACE GASTROSTOMY TUBE 19512 06/21/17 EXCISION OF ASCENDING COLON, ENDO, DIAGN [id number] 06/21/17 EXCISION OF CECUM, ENDO, DIAGN [id number] 06/21/17 EXCISION OF SIGMOID COLON, ENDO, DIAGN [id number] 06/21/17 EXCISION OF STOMACH, ENDO, DIAGN [id number] 06/21/17 INSERTION OF FEEDING DEVICE INTO STOMACH, PERC APPROACH [id number] 06/21/17 INSERTION OF INFUSION DEV INTO SUP VENA CAVA, PERC APPROACH 14PS58D 06/21/17 INTRODUCTION OF NUTRITIONAL INTO CENTRAL VEIN, PERC APPROACH [id number] 06/21/17 PARTIAL REMOVAL OF COLON 05407 06/21/17 RESECTION OF RIGHT LARGE INTESTINE, OPEN APPROACH [id number] 06/21/17 RESPIRATORY VENTILATION, LESS THAN 24 CONSECUTIVE HOURS [id number] 06/21/17 TRANSFUSE NONAUT RED BLOOD CELLS IN PERIPH VEIN, PERC 32661R4 08/09/17 Internal Medicine Assmt/Plan - Assessment Assessment: - Assessment Assessment: acute renal failure altered mental status hypernatremia mild protein calorie malnutrition uti anemia hx dvt schizophrenia htn psychosis - Plan Plan: transfuse prbc chest xray today monitor h/h continue ivf follow up labs in am continue current plan of care - Plan Plan: ct head negative dw dr baldwin and rn abx changed to maxipime colleen rn Nutritional Asmnt/Malnutr-PDOC - Dietary Evaluation Malnutrition Findings (Please click <Entered> for more info): Nutritional Asmnt/Malnutrition Start: 11/17/17 16: 59 Text: Status: Complete Freq: Protocol: Document 11/17/17 16:59 LCHENG (Rec: 11/17/17 17:18 LCHENG [email or web address]) Nutritional Asmnt/Malnutrition Patient General Information Nutritional Screening High Risk Diagnosis acute renal failure, dehydration Pertinent Medical Hx/Surgical Hx HTN, DM, dementia Subjective Information TF on hold this morning for future renal and abd U/S. Current Diet Order/ Nutrition Support Glucerna 1.2 60ml/hr x 20hr, provides 1200kcal, 54g protein Pertinent Medications novolog, cephulac, remeron, protonix, D5w w/20 meq kcl Pertinent Labs 11/17 Na 159, cl 116, BUN 102 ( treding down), Cr 2.4, glucose 222, POC 211 Nutritional Hx/Data Height 1.6 m Height (Calculated Centimeters) 160.0 Current Weight (lbs) 48.534 kg Weight (Calculated Kilograms) 48.5 Weight (Calculated Grams) 36656.4 [place] Body Weight 115 Body Mass Index (BMI) 18.9 Weight Status Approriate GI Symptoms GI Symptoms None Last BM not indicated Difficult in: None Skin Integrity/Comment: scaral region SCAR Estimated Nutritional Goals BEE in Kcals: Using Current wt Calories/Kcals/Kg 25-30 Kcals Calculated 8088-1285 Protein: Using Current wt Protein g/k.6-0.8 Protein Calculated 38-48 Fluid: ml per MD Nutritional Problem 1. Problem Problem altered nutrition related lab Etiology acute renal failure, hx of DM Signs/Symptoms: BUN 102, Cr 2.4, glucose 222 Malnutrition Alert Is there a minimum of two criteria No selected? Query Text:Check all the applicable criteria. A minimum of two criteria are recommended for diagnosis of either severe or non-severe malnutrition. Malnutrition Related to Morbid Obesity Malnutrition related to morbid obesity No Intervention/Recommendation Comments 1. If BUN/Cr continue high, will consider decrease TF rate to lower protein intake. 2. Monitor TF rate, tolerance, wt, skin integrity and labs 3. F/U as high risk in 2-3 days, 11/19-11/20 Expected Outcomes/Goals Expected Outcomes/Goals 1. Pt to meet at least 75% of nutritional needs via nutrition support with tolerance 2. Wt stability, skin to remain intact, labs to approach WNL.
[2017-11-20] MEDS ORDERED: Levofloxacin 250mg/50mL 250 MG/50 ML BAG IV SCH (14:00)
--- NOTE | 2017-11-20 17:38 | Consultation ---
DATE OF CONSULTATION: 11/17/2017 RACE: Black. REFERRING PHYSICIAN: Dr. Tobias. REASON FOR CONSULTATION: Evaluation of renal status, electrolytes and management. HISTORY OF PRESENT ILLNESS: This patient was brought in from the Emergency Room, does have multiple problems including, but not limited to; 1. Severe dehydration. 2. Acute renal failure. 3. Hyponatremia. 4. Anemia. 5. Malnutrition. 6. Multiple contractures, lying in one place. The patient had to be resuscitated with fluids initially because of the fact that vitals were low and patient's skin was very poor. The patient was seen around 10:00 a.m. on 11/17/2017. PHYSICAL EXAMINATION: GENERAL: The patient could not communicate. She was poorly or nonresponsive and has multiple what looked like to be contractures. Jugular venous pressure was not raised. Skin turgor was very poor and the patient has poor hygiene. NEUROLOGIC: Difficult to assess further because the patient was poorly or nonresponsive. VITAL SIGNS: The patient's vital signs were as follows: Heart rate is about 100 per minute, blood pressure was 100/70 before resuscitation. BIOCHEMICAL DATA: Available as follows: Hemoglobin was 7.7 grams. WBC count 6.3 thousand. Platelet count was 192. Initial sodium done in the Emergency Room was 164, potassium 3.8, chloride 121, CO2 content 37, creatinine was 2.4, BUN was 117, total protein 7.0, albumin 3.3. Liver enzymes were essentially normal except for alkaline phosphatase 126. Reason for this concentration sodium is not clear, it may be just water deprivation. Also, the patient may have diabetes insipidus or sodium wasting because of the fact that the patient's kidneys are not able to control sodium modulation. PLAN: Plan reviewing all these things is to continue with the hypotonic solution and check the chemistries along with that, nutrition to be modified and given appropriate thing. Also to check iron profile for anemia and may consider giving blood transfusion since hemoglobin is rather low. Greatly appreciate the opportunity to participate in the care of the patient. Thanking you, Dr. Tobias. JOB# [id number]
[2017-11-21] MEDS: D5-0.45NS 1,000 ML IV SCH (00:28)
[2017-11-21] MEDS: INSULIN ASPART, RECOMBINANT 100 UNITS/ML SUBQ SCH ×3 (06:56→17:33)
[2017-11-21] MEDS: Ipratropium Neb 0.5 mg/2.5 mL UD HHN SCH ×4 (07:28→18:50)
[2017-11-21] MEDS: Albuterol Nebulizer 2.5mg/3mL HHN SCH ×4 (07:28→18:50)
[2017-11-21] MEDS: Lactulose 10 Gm/15 mL 30mL UDC PO SCH (09:11)
[2017-11-21] MEDS: Pantoprazole 40 mg EC Tab PO SCH (09:12)
[2017-11-21] MEDS: Hydrogel 3 oz Tube TP SCH (09:13)
--- NOTE | 2017-11-21 11:19 | Internal Medicine Prog Note ---
Internal Medicine Subjective - Subjective Service Date: 11/21/17 Patient seen and examined:: with staff Patient is:: awake, non-verbal, non-interactive, eyes closed, confused, congested Per staff patient has:: no adverse event, no episodes of fall, agitated, combative, tolerating meds Internal Medicine Objective - Results Result Diagrams: 11/20/17 05:30 11/20/17 05:30 Recent Labs: Laboratory Last Values WBC 6.1 Th/cmm (4.8-10.8) 11/20/17 05:30 RBC 3.16 Mil/cmm (3.80-5.20) L 11/20/17 05:30 Hgb 9.1 gm/dL (12-16) L 11/20/17 05:30 Hct 28.1 % (41.0-60) L 11/20/17 05:30 MCV 89.1 fl (81-100) 11/20/17 05:30 MCH 28.8 pg (27.0-31.0) 11/20/17 05:30 MCHC Differential 32.3 pg (28.0-36.0) 11/20/17 05:30 RDW 14.5 % (11.5-20.0) 11/20/17 05:30 Plt Count 177 Th/cmm (150-400) 11/20/17 05:30 MPV 11.4 fl 11/20/17 05:30 Neutrophils % 67.4 % (40.0-80.0) 11/20/17 05:30 Lymphocytes % 21.6 % (20.0-50.0) 11/20/17 05:30 Monocytes % 6.8 % (2.0-10.0) 11/20/17 05:30 Eosinophils % 4.0 % (0.0-5.0) 11/20/17 05:30 Basophils % 0.2 % (0.0-2.0) 11/20/17 05:30 PT 9.8 SECONDS (9.5-11.5) 11/16/17 22:40 INR 0.94 (0.5-1.4) 11/16/17 22:40 PTT (Actin FS) 20.7 SECONDS (26.0-38.0) L 11/16/17 22:40 Specimen Source Arterial 11/18/17 14:31 Sample Site Left Radial 11/18/17 14:31 pH 7.43 (7.35-7.45) 11/18/17 14:31 pCO2 49.0 mmHg (35.0-45.0) H 11/18/17 14:31 pO2 81.0 mmHg (80.0-100.0) 11/18/17 14:31 HCO3 30.4 mEq/L (20.0-26.0) H 11/18/17 14:31 Base Excess 7.0 mEq/L (-3.0-3.0) H 11/18/17 14:31 O2 Saturation 96.0 % (92.0-100.0) 11/18/17 14:31 Rashid Test PASS 11/18/17 14:31 Inspired O2 21 11/18/17 14:31 Critical Value PW 11/18/17 14:31 Sodium 141 mEq/L (136-145) 11/20/17 05:30 Potassium 3.7 mEq/L (3.5-5.1) 11/20/17 05:30 Chloride 107 mEq/L (98-107) 11/20/17 05:30 Carbon Dioxide 24.6 mEq/L (21.0-31.0) 11/20/17 05:30 Anion Gap 13.1 (7.0-16.0) 11/20/17 05:30 BUN 52 mg/dL (7-25) H 11/20/17 05:30 Creatinine 2.0 mg/dL (0.6-1.2) H 11/20/17 05:30 Est GFR ( Amer) TNP 11/20/17 05:30 Est GFR (Non-Af Amer) [facility] 11/20/17 05:30 BUN/Creatinine Ratio 26.0 11/20/17 05:30 Glucose 197 mg/dL (70-105) H 11/20/17 05:30 POC Glucose 186 MG/DL (70 - 105) H 11/20/17 17:22 Hemoglobin A1c % 4.9 % (4.0-6.0) 11/17/17 05:45 Whole Bld Lactic Acid 0.99 mmol/L (0.60-1.99) 11/16/17 22:40 Calcium 8.7 mg/dL (8.6-10.3) 11/20/17 05:30 Magnesium 2.8 mg/dL (1.9-2.7) H 11/18/17 05:20 Iron 28 ug/dL (27-139) 11/17/17 11:15 TIBC 183 ug/dL (250-450) L 11/17/17 11:15 Iron Saturation 15 % (15-55) 11/17/17 11:15 Unsaturated IBC 155 ug/dL (118-369) 11/17/17 11:15 Total Bilirubin 0.2 mg/dL (0.3-1.0) L 11/19/17 05:30 AST 24 U/L (13-39) 11/19/17 05:30 ALT 25 U/L (7-52) 11/19/17 05:30 Alkaline Phosphatase 116 U/L (34-104) H 11/19/17 05:30 Ammonia 62 umol/L (16-53) H 11/17/17 05:45 Creatine Kinase 34 U/L (30-223) 11/16/17 22:40 Troponin I 0.03 ng/mL (0.01-0.05) 11/16/17 22:40 B-Natriuretic Peptide 104.0 pg/mL (5.0-100.0) H 11/20/17 05:30 Total Protein 6.1 gm/dL (6.0-8.3) 11/19/17 05:30 Albumin 2.8 gm/dL (3.7-5.3) L 11/19/17 05:30 Globulin 3.3 gm/dL 11/19/17 05:30 Albumin/Globulin Ratio 0.9 (1.0-1.8) L 11/19/17 05:30 Vitamin B12 1392 pg/mL (232-1245) H 11/17/17 05:45 Folic Acid >20.0 ng/mL (>3.0) 11/17/17 05:45 Urine Source MIDSTREAM 11/16/17 23:55 Urine Color YELLOW 11/16/17 23:55 Urine Clarity CLEAR (CLEAR) 11/16/17 23:55 Urine pH 8.0 (4.6 - 8.0) 11/16/17 23:55 Ur Specific [place] 1.015 (1.005-1.030) 11/16/17 23:55 Urine Protein 100 mg/dL (NEGATIVE) H 11/16/17 23:55 Urine Glucose (UA) NEGATIVE mg/dL (NEGATIVE) 11/16/17 23:55 Urine Ketones NEGATIVE mg/dL (NEGATIVE) 11/16/17 23:55 Urine Blood NEGATIVE (NEGATIVE) 11/16/17 23:55 Urine Nitrate NEGATIVE (NEGATIVE) 11/16/17 23:55 Urine Bilirubin NEGATIVE (NEGATIVE) 11/16/17 23:55 Urine Urobilinogen 0.2 E.U./dL (0.2 - 1.0) 11/16/17 23:55 Ur Leukocyte Esterase LARGE (NEGATIVE) H 11/16/17 23:55 Urine RBC 0-2 /hpf (0-5) 11/16/17 23:55 Urine WBC 6-10 /hpf (0-5) H 11/16/17 23:55 Ur Epithelial Cells FEW /lpf (FEW) 11/16/17 23:55 Urine Bacteria FEW /hpf (NONE SEEN) 11/16/17 23:55 Urine Collection Time 24 hours 11/20/17 04:00 Urine Total Volume 1450 ml 11/20/17 04:00 Urine Creatinine 37.0 mg/dl (28.0-217.0) 11/20/17 04:00 Ur Creatinine 24 Hour 537 mg/24hr (11-20) H 11/20/17 04:00 Creat Clearance 24 Hr 22 ml/min (88.00-128.00) L 11/20/17 04:00 Body Surface Area 1.48 11/20/17 04:00 Blood Type O POSITIVE 11/18/17 13:21 Antibody Screen NEGATIVE 11/18/17 13:21 Crossmatch See Detail 11/18/17 13:21 - Physical Exam Vitals and I&O: Vital Signs Temp 97.3 F 11/21/17 07:34 Pulse 77 11/21/17 09:11 Resp 19 11/21/17 08:00 BP 163/70 11/21/17 09:11 Pulse Ox 97 11/21/17 07:34 Intake & Output 11/20/17 11/21/17 11/21/17 18:59 06:59 18:59 Intake Total 2070 Output Total 551 1000 Balance -551 1070 Weight (lbs) 107 lb 90 lb 90 lb Intake: Intake, IV Amount 1050 Cefepime 1 gm In Dextrose 50 5% 50 ml @ 100 mls/hr IV Q24HR [facility] Rx#:[id number] D5-0.45NS 1,000 ml @ 60 1000 mls/hr IV .[id number] [facility] Rx #:[id number] Tube Feeding 1020 Output: Urine 550 1000 Stool 1 Other: # Bowel Movements 1 Stool Characteristics Liquid Brown Weight Source Bedscale Bedscale Bedscale Active Medications: Current Medications Acetaminophen (Tylenol) 650 mg GT Q4H PRN PRN Reason: TEMP >100.5 Stop: 01/15/18 23:34 Acetaminophen/Hydrocodone Bitart ([place] 5mg/325mg) 1 tab PO Q4H PRN PRN Reason: Pain (Severe) Stop: 01/18/18 14:41 Albuterol Sulfate (Albuterol 2.5mg/3ml Neb Ud) 2.5 mg HHN QIDRT [facility] Stop: 01/16/18 06:59 Last Admin: 11/21/17 11:14 Dose: 2.5 mg Amlodipine Besylate (Norvasc) 10 mg GT DAILY [facility] Stop: 01/16/18 08:59 Last Admin: 11/21/17 09:11 Dose: 10 mg Bandage/Support Products (Hydrogel) 1 appl TP DAILY [facility] Stop: 01/16/18 08:59 Last Admin: 11/21/17 09:13 Dose: 1 appl Haloperidol Decanoate (Haldol Dec) 25 mg IM [id number] [facility] Stop: 01/16/18 09:59 Last Admin: 11/17/17 14:04 Dose: Not Given Dextrose/Sodium Chloride (D5-0.45ns) 1,000 mls @ 60 mls/hr IV .[id number] [facility] Stop: 01/18/18 14:44 Last Admin: 11/21/17 00:28 Dose: 60 mls/hr Cefepime HCl 1 gm/ Dextrose 50 mls @ 100 mls/hr IV Q24HR [facility] Stop: 01/18/18 20:59 Last Infusion: 11/20/17 21:35 Dose: Infused Insulin Aspart (Novolog) 0 units SUBQ ACHS [facility]; Protocol Stop: 01/16/18 07:29 Last Admin: 11/21/17 06:56 Dose: Not Given Ipratropium [place] (Atrovent Neb 0.5mg/2.5ml) 0.5 mg HHN QIDRT ED Stop: 01/16/18 06:59 Last Admin: 11/21/17 11:14 Dose: 0.5 mg Lactulose (Cephulac) 30 gm PO BID ED Stop: 01/16/18 16:59 Last Admin: 11/21/17 09:11 Dose: 30 gm Lorazepam (Ativan) 1 mg IV Q4H PRN; Protocol PRN Reason: Seizure Stop: 01/15/18 23:36 Mirtazapine (Remeron) 15 mg GT HS ED; Protocol Stop: 01/16/18 20:59 Last Admin: 11/20/17 21:02 Dose: 15 mg Miscellaneous (Clinical Monitoring) 1 ea MC PRN PRN PRN Reason: RENAL DOSE LEVAQUIN Stop: 01/17/18 12:53 Nitroglycerin (Nitrostat) 0.4 mg SL Q5MIN PRN PRN Reason: Chest Pain Stop: 01/15/18 23:37 Ondansetron HCl (Zofran) 4 mg IV Q8H PRN PRN Reason: Nausea / Vomiting Stop: 01/15/18 23:37 Pantoprazole Sodium (Protonix) 40 mg PO DAILY [facility] Stop: 01/16/18 08:59 Last Admin: 11/21/17 09:12 Dose: 40 mg General: demented HEENT: NC/AT, PERRLA Neck: Supple Lungs: congested, rales Cardiovascular: RRR, Normal S1, Normal S2, with murmur Abdomen: soft, non-tender, thin, non-distended, positive bowel sound Extremities: excoriation, contracture Neurological: no change - Procedures Procedures: Procedures Procedure Code Date EGD PLACE GASTROSTOMY TUBE 01025 06/21/17 EXCISION OF ASCENDING COLON, ENDO, DIAGN 2VUS6HT 06/21/17 EXCISION OF CECUM, ENDO, DIAGN 5SWU2JC 06/21/17 EXCISION OF SIGMOID COLON, ENDO, DIAGN 0EET7JH 06/21/17 EXCISION OF STOMACH, ENDO, DIAGN 8DC57PY 06/21/17 INSERTION OF FEEDING DEVICE INTO STOMACH, PERC APPROACH 0UC41ZO 06/21/17 INSERTION OF INFUSION DEV INTO SUP VENA CAVA, PERC APPROACH 83UD69X 06/21/17 INTRODUCTION OF NUTRITIONAL INTO CENTRAL VEIN, PERC APPROACH 6Q8389N 06/21/17 PARTIAL REMOVAL OF COLON 62095 06/21/17 RESECTION OF RIGHT LARGE INTESTINE, OPEN APPROACH 2XRI3JB 06/21/17 RESPIRATORY VENTILATION, LESS THAN 24 CONSECUTIVE HOURS [id number] 06/21/17 TRANSFUSE NONAUT RED BLOOD CELLS IN PERIPH VEIN, PERC 78751Y5 08/09/17 Internal Medicine Assmt/Plan - Assessment Assessment: acute renal failure altered mental status hypernatremia mild protein calorie malnutrition 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 schizophrenia htn psychosis - Plan Plan: continue ivabx monitor h/h continue ivf follow up labs in am continue current plan of care Nutritional Asmnt/Malnutr-PDOC - Dietary Evaluation Malnutrition Findings (Please click <Entered> for more info): Nutritional Asmnt/Malnutrition Start: 11/17/17 16: 59 Text: Status: Complete Freq: Protocol: Document 11/17/17 16:59 [email or web address] (Rec: 11/17/17 17:18 [email or web address] [id number]) Nutritional Asmnt/Malnutrition Patient General Information Nutritional Screening High Risk Diagnosis acute renal failure, dehydration Pertinent Medical Hx/Surgical Hx HTN, DM, dementia Subjective Information TF on hold this morning for future renal and abd U/S. Current Diet Order/ Nutrition Support Glucerna 1.2 60ml/hr x 20hr, provides 1200kcal, 54g protein Pertinent Medications novolog, cephulac, remeron, protonix, D5w w/20 meq kcl Pertinent Labs 11/17 Na 159, cl 116, BUN 102 ( treding down), Cr 2.4, glucose 222, POC 211 Nutritional Hx/Data Height 5 ft 3 in Height (Calculated Centimeters) 160.0 Current Weight (lbs) 107 lb Weight (Calculated Kilograms) 48.5 Weight (Calculated Grams) 40156.4 [place] Body Weight 115 Body Mass Index (BMI) 18.9 Weight Status Approriate GI Symptoms GI Symptoms None Last BM not indicated Difficult in: None Skin Integrity/Comment: scaral region SCAR Estimated Nutritional Goals BEE in Kcals: Using Current wt Calories/Kcals/Kg 25-30 Kcals Calculated 3806-7251 Protein: Using Current wt Protein g/k.6-0.8 Protein Calculated 38-48 Fluid: ml per MD Nutritional Problem 1. Problem Problem altered nutrition related lab Etiology acute renal failure, hx of DM Signs/Symptoms: BUN 102, Cr 2.4, glucose 222 Malnutrition Alert Is there a minimum of two criteria No selected? Query Text:Check all the applicable criteria. A minimum of two criteria are recommended for diagnosis of either severe or non-severe malnutrition. Malnutrition Related to Morbid Obesity Malnutrition related to morbid obesity No Intervention/Recommendation Comments 1. If BUN/Cr continue high, will consider decrease TF rate to lower protein intake. 2. Monitor TF rate, tolerance, wt, skin integrity and labs 3. F/U as high risk in 2-3 days, 11/19-11/20 Expected Outcomes/Goals Expected Outcomes/Goals 1. Pt to meet at least 75% of nutritional needs via nutrition support with tolerance 2. Wt stability, skin to remain intact, labs to approach WNL.
--- NOTE | 2017-11-21 13:50 | General Progress Note ---
Subjective - Review of Systems Service Date: 11/21/17 Subjective: eyes open, nonverbal Objective - Results Result Diagrams: 11/20/17 05:30 11/20/17 05:30 Recent Labs: Laboratory Last Values WBC 6.1 Th/cmm (4.8-10.8) 11/20/17 05:30 RBC 3.16 Mil/cmm (3.80-5.20) L 11/20/17 05:30 Hgb 9.1 gm/dL (12-16) L 11/20/17 05:30 Hct 28.1 % (41.0-60) L 11/20/17 05:30 MCV 89.1 fl (81-100) 11/20/17 05:30 MCH 28.8 pg (27.0-31.0) 11/20/17 05:30 MCHC Differential 32.3 pg (28.0-36.0) 11/20/17 05:30 RDW 14.5 % (11.5-20.0) 11/20/17 05:30 Plt Count 177 Th/cmm (150-400) 11/20/17 05:30 MPV 11.4 fl 11/20/17 05:30 Neutrophils % 67.4 % (40.0-80.0) 11/20/17 05:30 Lymphocytes % 21.6 % (20.0-50.0) 11/20/17 05:30 Monocytes % 6.8 % (2.0-10.0) 11/20/17 05:30 Eosinophils % 4.0 % (0.0-5.0) 11/20/17 05:30 Basophils % 0.2 % (0.0-2.0) 11/20/17 05:30 PT 9.8 SECONDS (9.5-11.5) 11/16/17 22:40 INR 0.94 (0.5-1.4) 11/16/17 22:40 PTT (Actin FS) 20.7 SECONDS (26.0-38.0) L 11/16/17 22:40 Specimen Source Arterial 11/18/17 14:31 Sample Site Left Radial 11/18/17 14:31 pH 7.43 (7.35-7.45) 11/18/17 14:31 pCO2 49.0 mmHg (35.0-45.0) H 11/18/17 14:31 pO2 81.0 mmHg (80.0-100.0) 11/18/17 14:31 HCO3 30.4 mEq/L (20.0-26.0) H 11/18/17 14:31 Base Excess 7.0 mEq/L (-3.0-3.0) H 11/18/17 14:31 O2 Saturation 96.0 % (92.0-100.0) 11/18/17 14:31 Rashid Test PASS 11/18/17 14:31 Inspired O2 21 11/18/17 14:31 Critical Value PW 11/18/17 14:31 Sodium 141 mEq/L (136-145) 11/20/17 05:30 Potassium 3.7 mEq/L (3.5-5.1) 11/20/17 05:30 Chloride 107 mEq/L (98-107) 11/20/17 05:30 Carbon Dioxide 24.6 mEq/L (21.0-31.0) 11/20/17 05:30 Anion Gap 13.1 (7.0-16.0) 11/20/17 05:30 BUN 52 mg/dL (7-25) H 11/20/17 05:30 Creatinine 2.0 mg/dL (0.6-1.2) H 11/20/17 05:30 Est GFR ( Amer) TNP 11/20/17 05:30 Est GFR (Non-Af Amer) TNP 11/20/17 05:30 BUN/Creatinine Ratio 26.0 11/20/17 05:30 Glucose 197 mg/dL (70-105) H 11/20/17 05:30 POC Glucose 183 MG/DL (70 - 105) H 11/21/17 11:30 Hemoglobin A1c % 4.9 % (4.0-6.0) 11/17/17 05:45 Whole Bld Lactic Acid 0.99 mmol/L (0.60-1.99) 11/16/17 22:40 Calcium 8.7 mg/dL (8.6-10.3) 11/20/17 05:30 Magnesium 2.8 mg/dL (1.9-2.7) H 11/18/17 05:20 Iron 28 ug/dL (27-139) 11/17/17 11:15 TIBC 183 ug/dL (250-450) L 11/17/17 11:15 Iron Saturation 15 % (15-55) 11/17/17 11:15 Unsaturated IBC 155 ug/dL (118-369) 11/17/17 11:15 Total Bilirubin 0.2 mg/dL (0.3-1.0) L 11/19/17 05:30 AST 24 U/L (13-39) 11/19/17 05:30 ALT 25 U/L (7-52) 11/19/17 05:30 Alkaline Phosphatase 116 U/L (34-104) H 11/19/17 05:30 Ammonia 62 umol/L (16-53) H 11/17/17 05:45 Creatine Kinase 34 U/L (30-223) 11/16/17 22:40 Troponin I 0.03 ng/mL (0.01-0.05) 11/16/17 22:40 B-Natriuretic Peptide 104.0 pg/mL (5.0-100.0) H 11/20/17 05:30 Total Protein 6.1 gm/dL (6.0-8.3) 11/19/17 05:30 Albumin 2.8 gm/dL (3.7-5.3) L 11/19/17 05:30 Globulin 3.3 gm/dL 11/19/17 05:30 Albumin/Globulin Ratio 0.9 (1.0-1.8) L 11/19/17 05:30 Vitamin B12 1392 pg/mL (232-1245) H 11/17/17 05:45 Folic Acid >20.0 ng/mL (>3.0) 11/17/17 05:45 Urine Source MIDSTREAM 11/16/17 23:55 Urine Color YELLOW 11/16/17 23:55 Urine Clarity CLEAR (CLEAR) 11/16/17 23:55 Urine pH 8.0 (4.6 - 8.0) 11/16/17 23:55 Ur Specific [place] 1.015 (1.005-1.030) 11/16/17 23:55 Urine Protein 100 mg/dL (NEGATIVE) H 11/16/17 23:55 Urine Glucose (UA) NEGATIVE mg/dL (NEGATIVE) 11/16/17 23:55 Urine Ketones NEGATIVE mg/dL (NEGATIVE) 11/16/17 23:55 Urine Blood NEGATIVE (NEGATIVE) 11/16/17 23:55 Urine Nitrate NEGATIVE (NEGATIVE) 11/16/17 23:55 Urine Bilirubin NEGATIVE (NEGATIVE) 11/16/17 23:55 Urine Urobilinogen 0.2 E.U./dL (0.2 - 1.0) 11/16/17 23:55 Ur Leukocyte Esterase LARGE (NEGATIVE) H 11/16/17 23:55 Urine RBC 0-2 /hpf (0-5) 11/16/17 23:55 Urine WBC 6-10 /hpf (0-5) H 11/16/17 23:55 Ur Epithelial Cells FEW /lpf (FEW) 11/16/17 23:55 Urine Bacteria FEW /hpf (NONE SEEN) 11/16/17 23:55 Urine Collection Time 24 hours 11/20/17 04:00 Urine Total Volume 1450 ml 11/20/17 04:00 Urine Creatinine 37.0 mg/dl (28.0-217.0) 11/20/17 04:00 Ur Creatinine 24 Hour 537 mg/24hr (11-20) H 11/20/17 04:00 Creat Clearance 24 Hr 22 ml/min (88.00-128.00) L 11/20/17 04:00 Body Surface Area 1.48 11/20/17 04:00 Blood Type O POSITIVE 11/18/17 13:21 Antibody Screen NEGATIVE 11/18/17 13:21 Crossmatch See Detail 11/18/17 13:21 - Physical Exam Vitals and I&O: Vital Signs Temp 98.2 F 11/21/17 12:10 Pulse 86 11/21/17 12:10 Resp 18 11/21/17 12:10 BP 153/83 11/21/17 12:10 Pulse Ox 98 11/21/17 12:10 Intake & Output 11/20/17 11/21/17 11/21/17 18:59 06:59 18:59 Intake Total 2070 Output Total 551 1000 Balance -551 1070 Weight (lbs) 48.534 kg 40.823 kg 40.823 kg Intake: Intake, IV Amount 1050 Cefepime 1 gm In Dextrose 50 5% 50 ml @ 100 mls/hr IV Q24HR [facility] Rx#:[id number] D5-0.45NS 1,000 ml @ 60 1000 mls/hr IV .[id number] [facility] Rx #:[id number] Tube Feeding 1020 Output: Urine 550 1000 Stool 1 Other: # Bowel Movements 1 Stool Characteristics Liquid Brown Weight Source Bedscale Bedscale Bedscale Active Medications: Current Medications Acetaminophen (Tylenol) 650 mg GT Q4H PRN PRN Reason: TEMP >100.5 Stop: 01/15/18 23:34 Acetaminophen/Hydrocodone Bitart ([place] 5mg/325mg) 1 tab PO Q4H PRN PRN Reason: Pain (Severe) Stop: 01/18/18 14:41 Albuterol Sulfate (Albuterol 2.5mg/3ml Neb Ud) 2.5 mg HHN QIDRT [facility] Stop: 01/16/18 06:59 Last Admin: 11/21/17 11:14 Dose: 2.5 mg Amlodipine Besylate (Norvasc) 10 mg GT DAILY [facility] Stop: 01/16/18 08:59 Last Admin: 11/21/17 09:11 Dose: 10 mg Bandage/Support Products (Hydrogel) 1 appl TP DAILY [facility] Stop: 01/16/18 08:59 Last Admin: 11/21/17 09:13 Dose: 1 appl Haloperidol Decanoate (Haldol Dec) 25 mg IM [id number] [facility] Stop: 01/16/18 09:59 Last Admin: 11/17/17 14:04 Dose: Not Given Insulin Aspart (Novolog) 0 units SUBQ ACHS [facility]; Protocol Stop: 01/16/18 07:29 Last Admin: 11/21/17 12:08 Dose: Not Given Ipratropium [place] (Atrovent Neb 0.5mg/2.5ml) 0.5 mg HHN QIDRT [facility] Stop: 01/16/18 06:59 Last Admin: 11/21/17 11:14 Dose: 0.5 mg Lactulose (Cephulac) 30 gm PO DAILY [facility] Stop: 01/21/18 08:59 Mirtazapine (Remeron) 15 mg GT HS [facility]; Protocol Stop: 01/16/18 20:59 Last Admin: 11/20/17 21:02 Dose: 15 mg Miscellaneous (Clinical Monitoring) 1 ea MC PRN PRN PRN Reason: RENAL DOSE LEVAQUIN Stop: 01/17/18 12:53 Nitrofurantoin Macrocrystals (Macrobid) 100 mg PO BID [facility]; Protocol Stop: 11/28/17 16:59 Nitroglycerin (Nitrostat) 0.4 mg SL Q5MIN PRN PRN Reason: Chest Pain Stop: 01/15/18 23:37 Ondansetron HCl (Zofran) 4 mg IV Q8H PRN PRN Reason: Nausea / Vomiting Stop: 01/15/18 23:37 Pantoprazole Sodium (Protonix) 40 mg PO DAILY [facility] Stop: 01/16/18 08:59 Last Admin: 11/21/17 09:12 Dose: 40 mg General: Alert, No acute distress HEENT: Atraumatic, PERRLA, Mucous membr. moist/pink Neck: Supple, +2 carotid pulse wo bruit Cardiovascular: Regular rate, Normal S1, Normal S2 Lungs: Clear to auscultation Abdomen: Bowel sounds, Soft Extremities: no Edema Neurological: Sensation intact Skin: no Rash Psych/Mental Status: Mood NL - Procedures Procedures: Procedures Procedure Code Date EGD PLACE GASTROSTOMY TUBE 71396 06/21/17 EXCISION OF ASCENDING COLON, ENDO, DIAGN [id number] 06/21/17 EXCISION OF CECUM, ENDO, DIAGN 3WOQ1SS 06/21/17 EXCISION OF SIGMOID COLON, ENDO, DIAGN [id number] 06/21/17 EXCISION OF STOMACH, ENDO, DIAGN 0PT94OV 06/21/17 INSERTION OF FEEDING DEVICE INTO STOMACH, PERC APPROACH 8BT74WV 06/21/17 INSERTION OF INFUSION DEV INTO SUP VENA CAVA, PERC APPROACH 17MB11Z 06/21/17 INTRODUCTION OF NUTRITIONAL INTO CENTRAL VEIN, PERC APPROACH 5A3636H 06/21/17 PARTIAL REMOVAL OF COLON 05986 06/21/17 RESECTION OF RIGHT LARGE INTESTINE, OPEN APPROACH 0SUP4WP 06/21/17 RESPIRATORY VENTILATION, LESS THAN 24 CONSECUTIVE HOURS 7V2608N 06/21/17 TRANSFUSE NONAUT RED BLOOD CELLS IN PERIPH VEIN, PERC 29754M4 08/09/17 Assessment/Plan - Assessment Assessment: LEONIE on CKD Severe Dehydration Anemia of CD Hypernatremia 2/2 dehydration Severe Malnutrition Multiple Contractures - Plan Plan: Lab - Result Diagrams 11/20/17 05:30 11/20/17 05:30 Current Medications Acetaminophen (Tylenol) 650 mg GT Q4H PRN PRN Reason: TEMP >100.5 Stop: 01/15/18 23:34 Acetaminophen/Hydrocodone Bitart ([place] 5mg/325mg) 1 tab PO Q4H PRN PRN Reason: Pain (Severe) Stop: 01/18/18 14:41 Albuterol Sulfate (Albuterol 2.5mg/3ml Neb Ud) 2.5 mg HHN QIDRT [facility] Stop: 01/16/18 06:59 Last Admin: 11/21/17 11:14 Dose: 2.5 mg Amlodipine Besylate (Norvasc) 10 mg GT DAILY [facility] Stop: 01/16/18 08:59 Last Admin: 11/21/17 09:11 Dose: 10 mg Bandage/Support Products (Hydrogel) 1 appl TP DAILY [facility] Stop: 01/16/18 08:59 Last Admin: 11/21/17 09:13 Dose: 1 appl Haloperidol Decanoate (Haldol Dec) 25 mg IM [id number] [facility] Stop: 01/16/18 09:59 Last Admin: 11/17/17 14:04 Dose: Not Given Insulin Aspart (Novolog) 0 units SUBQ ACHS [facility]; Protocol Stop: 01/16/18 07:29 Last Admin: 11/21/17 12:08 Dose: Not Given Ipratropium [place] (Atrovent Neb 0.5mg/2.5ml) 0.5 mg HHN QIDRT [facility] Stop: 01/16/18 06:59 Last Admin: 11/21/17 11:14 Dose: 0.5 mg Lactulose (Cephulac) 30 gm PO DAILY [facility] Stop: 01/21/18 08:59 Mirtazapine (Remeron) 15 mg GT HS [facility]; Protocol Stop: 01/16/18 20:59 Last Admin: 11/20/17 21:02 Dose: 15 mg Miscellaneous (Clinical Monitoring) 1 ea MC PRN PRN PRN Reason: RENAL DOSE LEVAQUIN Stop: 01/17/18 12:53 Nitrofurantoin Macrocrystals (Macrobid) 100 mg PO BID [facility]; Protocol Stop: 11/28/17 16:59 Nitroglycerin (Nitrostat) 0.4 mg SL Q5MIN PRN PRN Reason: Chest Pain Stop: 01/15/18 23:37 Ondansetron HCl (Zofran) 4 mg IV Q8H PRN PRN Reason: Nausea / Vomiting Stop: 01/15/18 23:37 Pantoprazole Sodium (Protonix) 40 mg PO DAILY ED Stop: 01/16/18 08:59 Last Admin: 11/21/17 09:12 Dose: 40 mg Lab - Result Diagrams 11/20/17 05:30 11/20/17 05:30 kidney fnc improving w/ BUN/CR of 52/2 continue hydration, feedings f/u electrolytes,cbc Nutritional Asmnt/Malnutr-PDOC - Dietary Evaluation Malnutrition Findings (Please click <Entered> for more info): Nutritional Asmnt/Malnutrition Start: 11/17/17 16: 59 Text: Status: Complete Freq: Protocol: Document 11/17/17 16:59 DIANELYSG (Rec: 11/17/17 17:18 GRISELDA [email or web address]) Nutritional Asmnt/Malnutrition Patient General Information Nutritional Screening High Risk Diagnosis acute renal failure, dehydration Pertinent Medical Hx/Surgical Hx HTN, DM, dementia Subjective Information TF on hold this morning for future renal and abd U/S. Current Diet Order/ Nutrition Support Glucerna 1.2 60ml/hr x 20hr, provides 1200kcal, 54g protein Pertinent Medications novolog, cephulac, remeron, protonix, D5w w/20 meq kcl Pertinent Labs 11/17 Na 159, cl 116, BUN 102 ( treding down), Cr 2.4, glucose 222, POC 211 Nutritional Hx/Data Height 1.6 m Height (Calculated Centimeters) 160.0 Current Weight (lbs) 48.534 kg Weight (Calculated Kilograms) 48.5 Weight (Calculated Grams) 06938.4 [place] Body Weight 115 Body Mass Index (BMI) 18.9 Weight Status Approriate GI Symptoms GI Symptoms None Last BM not indicated Difficult in: None Skin Integrity/Comment: scaral region SCAR Estimated Nutritional Goals BEE in Kcals: Using Current wt Calories/Kcals/Kg 25-30 Kcals Calculated 3157-0892 Protein: Using Current wt Protein g/k.6-0.8 Protein Calculated 38-48 Fluid: ml per MD Nutritional Problem 1. Problem Problem altered nutrition related lab Etiology acute renal failure, hx of DM Signs/Symptoms: BUN 102, Cr 2.4, glucose 222 Malnutrition Alert Is there a minimum of two criteria No selected? Query Text:Check all the applicable criteria. A minimum of two criteria are recommended for diagnosis of either severe or non-severe malnutrition. Malnutrition Related to Morbid Obesity Malnutrition related to morbid obesity No Intervention/Recommendation Comments 1. If BUN/Cr continue high, will consider decrease TF rate to lower protein intake. 2. Monitor TF rate, tolerance, wt, skin integrity and labs 3. F/U as high risk in 2-3 days, 11/19-11/20 Expected Outcomes/Goals Expected Outcomes/Goals 1. Pt to meet at least 75% of nutritional needs via nutrition support with tolerance 2. Wt stability, skin to remain intact, labs to approach WNL.
[2017-11-21] MEDS ORDERED: Amoxicillin/Clavulanat 875/125 Tab GT SCH (17:00)
[2017-11-22] MEDS ORDERED: Lactulose 10 Gm/15 mL 30mL UDC PO SCH (09:00)
== END 2017-11-21 20:20 | DRG 469 ==
LOC: ER 22:22 → TELE 23:35
PROVIDERS: ADMIT Internal Medicine; ATTEND Internal Medicine
PROC: 30233N1 Transfusion of Nonautologous Red Blood Cells into Peripheral Vein, Percutaneous Approach (ICD-10-PCS; principal; 2017-11-18)
DX: N17.9 Acute kidney failure, unspecified (principal); E44.0 Moderate protein-calorie malnutrition; E87.0 Hyperosmolality and hypernatremia; R53.2 Functional quadriplegia; E11.21 Type 2 diabetes mellitus with diabetic nephropathy; E86.0 Dehydration; D63.8 Anemia in other chronic diseases classified elsewhere; E11.22 Type 2 diabetes mellitus with diabetic chronic kidney disease; E44.1 Mild protein-calorie malnutrition; N39.0 Urinary tract infection, site not specified; R41.82 Altered mental status, unspecified; Z68.1 Body mass index [BMI] 19.9 or less, adult; F20.9 Schizophrenia, unspecified; Z86.718 Personal history of other venous thrombosis and embolism; I12.9 Hypertensive chronic kidney disease with stage 1 through stage 4 chronic kidney disease, or unspecified chronic kidney disease; N18.9 Chronic kidney disease, unspecified; F03.90 Unspecified dementia, unspecified severity, without behavioral disturbance, psychotic disturbance, mood disturbance, and anxiety; Z83.3 Family history of diabetes mellitus; Z82.49 Family history of ischemic heart disease and other diseases of the circulatory system; F29 Unspecified psychosis not due to a substance or known physiological condition; B95.2 Enterococcus as the cause of diseases classified elsewhere
CPT/HCPCS: 36415-UA; 36600-90; 70450-TC; 71045-TC; 76700-TC; 80048-TC; 80053-TC; 81001-TC; 81050-TC; 82140-TC; 82550-TC; 82570-TC; 82575-TC; 82607-90; 82746-90; 82803-TC; 82948-90; 83036-90; 83540-90; 83550-90; 83605; 83735-TC; 83880-TC; 84484-TC; 85025-TC; 85610-TC; 85730-TC; 86850-TC; 86900-TC; 86901-TC; 86922-TC; 87086-90; 90779; 93005; 94760; J0692; J0696; J1631; J1815; J1956; J3480; J7070; J7613; P9016; Z7610

== ENCOUNTER 2018-01-04 23:00 | Inpatient (IN) | payer MEDICAID ==
--- NOTE | 2018-01-04 23:08 | ED Physician Chart ---
ED Chief Complaint/HPI - Patient Information Date Seen:: 01/04/18 Time Seen:: 23:00 Chief Complaint:: hypernatremia History of Present Illness:: Blood was drawn on the patient this morning which showed a sodium of 171 and a chloride of 123. Allergies:: Allergies Allergy/AdvReac Type Severity Reaction Status Date / Time No Known Allergies Allergy Verified 06/21/17 17:43 Historian:: EMS Review:: Transfer documents Reviewed ED Review of Systems - Review of Systems General/Constitutional: No fever, No chills, No weight loss, No weakness, No diaphoresis, No edema, No loss of appetite Skin: No skin lesions, No rash, No bruising Head: No headache, No light-headedness Eyes: No loss of vision, No pain, No diplopia ENT: No earache, No nasal drainage, No sore throat, No tinnitus Neck: No neck pain, No swelling, No thyromegaly, No stiffness, No mass noted Cardio Vascular: No chest pain, No palpitations, No PND, No orthopnea, No edema Pulmonary: No SOB, No cough, No sputum, No wheezing GI: No nausea, No vomiting, No diarrhea, No pain, No melena, No hematochezia, No constipation, No hematemesis G/U: No dysuria, No frequency, No hematuria Musculoskeletal: No bone or joint pain, No back pain, No muscle pain Endocrine: No polyuria, No polydipsia Psychiatric: No prior psych history, No depression, No anxiety, No suicidal ideation Hematopoietic: No bruising, No lymphadenopathy Allergic/Immuno: No urticaria, No angioedema Neurological: No syncope, No focal symptoms, No weakness, No paresthesia, No headache, No seizure, No dizziness, No confusion, No vertigo ED Past Medical History - Past Medical History Past Medical History: DM, CHF, Dementia, Other (renal failure; anxiety) Family History: Other (unavailable) Social History: Other (unavailable) Surgical History: PEG/GTube Psychiatricy History: Dementia, Other (schizoaffective disorder) Family Medical History - Family Member Mother History Unknown: Yes ED Labs/Radiology/EKG Results - Lab Results Results: Laboratory Results - last 24 hr 01/04/18 23:25 Sodium 167 H* Potassium 3.7 Chloride 123 H Carbon Dioxide 37.9 H Anion Gap 9.8 BUN 108 H* Creatinine 1.9 H Est GFR ( Amer) TNP Est GFR (Non-Af Amer) TNP BUN/Creatinine Ratio 56.8 Glucose 125 H Calcium 9.8 Laboratory Results - last 24 hr 01/04/18 01/04/18 23:25 23:25 WBC 7.1 RBC 3.36 L Hgb 9.6 L Hct 30.1 L MCV 89.5 MCH 28.5 MCHC Differential 31.9 RDW 16.6 Plt Count 161 MPV 9.9 Neutrophils % 58.3 Lymphocytes % 28.8 Monocytes % 6.6 Eosinophils % 5.5 H Basophils % 0.8 Sodium 167 H* Potassium 3.7 Chloride 123 H Carbon Dioxide 37.9 H Anion Gap 9.8 BUN 108 H* Creatinine 1.9 H Est GFR ( Amer) TNP Est GFR (Non-Af Amer) TNP BUN/Creatinine Ratio 56.8 Glucose 125 H Calcium 9.8 - EKG Interpretations Rate & Rhythm: normal sinus rhythm with a rate of 77 [place]: normal Comments:: T wave changes ED Septic Shock - . Is Septic Shock (SBP<90, OR Lactate>4 mmol\L) present?: No ED Reassessment (Disposition) - Reassessment Reassessment Condition:: Unchanged - Diagnosis Diagnosis:: Hypernatremic dehydration; severe dehydration - Patient Disposition Admitted to:: Telemetry Spoke to:: Jose Tobias Admitting Medical Physician:: Jose Tobias Condition at Disposition:: Stable
[2018-01-04 23:36] LABS: % BASOPHILS 0.8 % (0.0-2.0); % EOSINOPHILS 5.5 % (0.0-5.0); % LYMPHOCYTES 28.8 % (20.0-50.0); % MONOCYTES 6.6 % (2.0-10.0); % NEUTROPHILS 58.3 % (40.0-80.0); BASOPHILE ABSOLUTE 0.1 Th/cumm (0-0.2); EOSINOPHILE ABSOLUTE 0.4 Th/cmm (0.1-0.4); HEMATOCRIT 30.1 % (41.0-60); HEMOGLOBIN 9.6 gm/dL (12-16); MEAN CELL VOLUME 89.5 fl (81-100); MEAN CORPUSCULAR HEMOGLOBIN 28.5 pg (27.0-31.0); MEAN CORPUSCULAR HGB CONC 31.9 pg (28.0-36.0); MEAN PLATELET VOLUME 9.9 fl; MONOCYTE ABSOLUTE 0.5 Th/cmm (0.3-1.0); NEUTROPHILE ABSOLUTE 4.1 Th/cmm (1.8-8.0); PLATELET COUNT 161 Th/cmm (150-400); RED BLOOD COUNT 3.36 Mil/cmm (3.80-5.20); RED CELL DISTRIBUTION WIDTH 16.6 % (11.5-20.0); WHITE BLOOD COUNT 7.1 Th/cmm (4.8-10.8)
[2018-01-04 23:48] LABS: ANION GAP 9.8 (7.0-16.0); CALCIUM SERUM 9.8 mg/dL (8.6-10.3); CARBON DIOXIDE 37.9 mEq/L (21.0-31.0); CHLORIDE 123 mEq/L (98-107); CREATININE - SERUM 1.9 mg/dL (0.6-1.2); GLUCOSE 125 mg/dL (70-105); POTASSIUM SERUM 3.7 mEq/L (3.5-5.1)
[2018-01-04 23:59] LABS: BUN - UREA NITROGEN 108 mg/dL (7-25); SODIUM SERUM 167 mEq/L (136-145)
[2018-01-05] MEDS ORDERED: Sodium Chloride 0.9% 1,000 ML IV ONE (00:05)
[2018-01-05] MEDS ORDERED: Non-Formulary Item 1 EA (Glucagon,Human Recombinant [Glucagon Emergency Kit] 1 MG) IJ PRN (00:14)
[2018-01-05] MEDS: Dextrose 5% 1,000 ML IV SCH ×3 (01:30→19:00)
[2018-01-05 04:32] VITALS: BP 136/101
[2018-01-05] MEDS: INSULIN ASPART, RECOMBINANT 100 UNITS/ML SUBQ SCH ×4 (06:45→22:32)
[2018-01-05] MEDS ORDERED: PROSTAT SUGAR FREE GT SCH (09:00)
[2018-01-05] MEDS: Multivitamin w/ Minerals Tab GT SCH (10:23)
--- NOTE | 2018-01-05 10:38 | Diagnostic Imaging Report ---
Renal ultrasound HISTORY: Acute renal failure. COMPARISON: Abdominal ultrasound 11/17/2017 Technique: Sonography of the kidneys and urinary bladder was performed in multiple planes. FINDINGS: The right kidney measures 9.9 x 4.5 cm. The left kidney measures 9.3 x 4.3 cm. No evidence of focal lesions or hydronephrosis. Note, patient was incontinent. The urinary bladder is underdistended, limiting its evaluation. IMPRESSION: No evidence of hydronephrosis.
[2018-01-05] MEDS: Hydrogel 3 oz Tube TP SCH (12:00)
[2018-01-05] MEDS: Pantoprazole 40 mg/Packet GT SCH (12:48)
--- NOTE | 2018-01-05 12:54 | Internal Medicine Prog Note ---
Internal Medicine Subjective - Subjective Service Date: 01/05/18 ([id number] hn) Internal Medicine Objective - Results Result Diagrams: 01/04/18 23:25 01/04/18 23:25 Recent Labs: Laboratory Last Values WBC 7.1 Th/cmm (4.8-10.8) 01/04/18 23: RBC 3.36 Mil/cmm (3.80-5.20) L 01/04/18 23:25 Hgb 9.6 gm/dL (12-16) L 01/04/18 23:25 Hct 30.1 % (41.0-60) L 01/04/18 23:25 MCV 89.5 fl (81-100) 01/04/18 23: MCH 28.5 pg (27.0-31.0) 01/04/18: MCHC Differential 31.9 pg (28.0-36.0) 01/04/18 23: RDW 16.6 % (11.5-20.0) 01/04/18: Plt Count 161 Th/cmm (150-400) 01/04/18 23:25 MPV 9.9 fl 01/04/18 23:25 Neutrophils % 58.3 % (40.0-80.0) 01/04/18 23: Lymphocytes % 28.8 % (20.0-50.0) 01/04/18 23:25 Monocytes % 6.6 % (2.0-10.0) 01/04/18 23:25 Eosinophils % 5.5 % (0.0-5.0) H 01/04/18 23:25 Basophils % 0.8 % (0.0-2.0) 01/04/18 23:25 Sodium 167 mEq/L (136-145) H* 01/04/18 23:25 Potassium 3.7 mEq/L (3.5-5.1) 01/04/18 23:25 Chloride 123 mEq/L (98-107) H 01/04/18 23:25 Carbon Dioxide 37.9 mEq/L (21.0-31.0) H 01/04/18 23:25 Anion Gap 9.8 (7.0-16.0) 01/04/18 23:25 BUN 108 mg/dL (7-25) H* 01/04/18 23:25 Creatinine 1.9 mg/dL (0.6-1.2) H 01/04/18 23:25 Est GFR ( Amer) TNP 01/04/18 23:25 Est GFR (Non-Af Amer) TNP 01/04/18 23:25 BUN/Creatinine Ratio 56.8 01/04/18 23:25 Glucose 125 mg/dL (70-105) H 01/04/18 23:25 POC Glucose 190 MG/DL (70 - 105) H 01/05/18 12:45 Calcium 9.8 mg/dL (8.6-10.3) 01/04/18 23:25 - Physical Exam Vitals and I&O: Vital Signs Temp 98.0 F 01/05/18 12:02 Pulse 67 01/05/18 12:02 Resp 18 01/05/18 12:02 BP 138/65 01/05/18 12:02 Pulse Ox 100 01/05/18 12:02 Intake & Output 01/04/18 01/05/18 01/05/18 18:59 06:59 18:59 Intake Total 380 1000 Balance 380 1000 Weight (lbs) 104 lb 2 oz Intake: Intake, IV Amount 1000 Dextrose 5% 1,000 ml @ 1000 125 mls/hr IV .Q8H [facility] Rx #:[id number] Tube Feeding 180 Other 200 Other: # Voids 2 Weight Source Bedscale Active Medications: Current Medications Acetaminophen (Tylenol 650mg/20.3ml Suspension) 650 mg GT Q4H PRN PRN Reason: TEMP >100.5 Stop: 03/06/18 00:13 Acetaminophen (Tylenol) 650 mg PO Q4H PRN PRN Reason: Pain Or Fever above 101 Stop: 03/06/18 00:15 Amlodipine Besylate (Norvasc) 10 mg GT DAILY ED Stop: 03/06/18 08:59 Last Admin: 01/05/18 10:22 Dose: 10 mg Ascorbic Acid (Vitamin C) 500 mg GT BID [facility] Stop: 03/06/18 08:59 Last Admin: 01/05/18 10:22 Dose: 500 mg Bandage/Support Products (Hydrogel) 1 appl TP DAILY [facility] Stop: 03/06/18 08:59 Heparin Sodium (Porcine) (Heparin) 5,000 units SUBQ Q12HR ED Stop: 03/06/18 08:59 Last Admin: 01/05/18 10:23 Dose: 5,000 units Dextrose (D5w) 1,000 mls @ 125 mls/hr IV .Q8H ED Stop: 03/06/18 00:14 Last Admin: 01/05/18 10:21 Dose: 125 mls/hr Insulin Aspart (Novolog) 0 units SUBQ ACHS [facility]; Protocol Stop: 03/06/18 07:29 Last Admin: 01/05/18 12:49 Dose: Not Given Mirtazapine (Remeron) 15 mg GT HS [facility]; Protocol Stop: 03/06/18 20:59 Ondansetron HCl (Zofran) 4 mg IV Q8H PRN PRN Reason: Nausea / Vomiting Stop: 03/06/18 00:15 Pantoprazole Sodium (Protonix) 40 mg GT DAILY@1200 ED Stop: 03/06/18 11:59 Last Admin: 01/05/18 12:48 Dose: 40 mg - Procedures Procedures: Procedures Procedure Code Date EGD PLACE GASTROSTOMY TUBE 45671 06/21/17 EXCISION OF ASCENDING COLON, ENDO, DIAGN [id number] 06/21/17 EXCISION OF CECUM, ENDO, DIAGN 2BVI1DD 06/21/17 EXCISION OF SIGMOID COLON, ENDO, DIAGN 6BVJ0EO 06/21/17 EXCISION OF STOMACH, ENDO, DIAGN 2NS46SB 06/21/17 INSERTION OF FEEDING DEVICE INTO STOMACH, PERC APPROACH 6WL19FI 06/21/17 INSERTION OF INFUSION DEV INTO SUP VENA CAVA, PERC APPROACH 46JZ01G 06/21/17 INTRODUCTION OF NUTRITIONAL INTO CENTRAL VEIN, PERC APPROACH 8Z3363G 06/21/17 PARTIAL REMOVAL OF COLON 66623 06/21/17 RESECTION OF RIGHT LARGE INTESTINE, OPEN APPROACH 5IIF3IT 06/21/17 RESPIRATORY VENTILATION, LESS THAN 24 CONSECUTIVE HOURS 4X3548K 06/21/17 TRANSFUSE NONAUT RED BLOOD CELLS IN PERIPH VEIN, PERC 84002G1 11/16/17
--- NOTE | 2018-01-05 15:29 | History & Physical ---
ADMIT DATE: 01/05/2018 CHIEF COMPLAINT: BUN of 108 and sodium level of 177. HISTORY OF PRESENT ILLNESS: This is a 77-year-old -[place] female who is well known to me from [facility]. I was called on this patient last night due to a BUN of 108 and sodium level of 177. No reports of any fevers at the skilled nursing. The patient was noted with weakness. For this reason, the patient is now admitted to the telemetry unit. PAST MEDICAL HISTORY: Diabetes, CHF, dementia, acute renal failure and anxiety. FAMILY HISTORY: Noncontributory. SOCIAL HISTORY: The patient is a skilled nursing resident and requesting 24-hour of nursing care. PAST SURGICAL HISTORY: PEG. MEDICATIONS: Please see medication list. REVIEW OF SYSTEMS: Unable to obtain, patient is confused. PHYSICAL EXAMINATION: GENERAL: Elderly female, appears chronically ill, in no apparent distress. VITAL SIGNS: Temperature 98.0, heart rate 67, blood pressure 138/65, respirations 18 and O2 100%. HEENT: Head; normocephalic and atraumatic. NECK: Supple. No mass. LUNGS: Clear bilaterally. CARDIOVASCULAR: Regular rate and rhythm. No murmurs or gallops. ABDOMEN: Soft, nontender and nondistended. SKIN: Positive for excoriations. LABORATORY DATA: WBC 7.1, H and H 9.6 and 30.1 and platelet of 161. Sodium 167, potassium 3.7, chloride 123, carbon dioxide 37.9, BUN 108 and creatinine 1.9. DIAGNOSTICS: The patient had a renal ultrasound done, impression is no evidence of hydronephrosis. ASSESSMENT: Severe dehydration, history of acute renal failure, diabetes, congestive heart failure, dementia and anxiety. PLAN: Do aggressive IV fluids for hydration. We will get psychiatrist on the case. We will also get Nephrology to see the patient. We will continue to monitor this patient. JOB# [id number]
[2018-01-06] MEDS: Dextrose 5% 1,000 ML IV SCH ×4 (02:30→22:55)
[2018-01-06] MEDS: INSULIN ASPART, RECOMBINANT 100 UNITS/ML SUBQ SCH ×5 (06:18→20:30)
[2018-01-06 07:05] LABS: % BASOPHILS 0.3 % (0.0-2.0); % EOSINOPHILS 3.7 % (0.0-5.0); % LYMPHOCYTES 24.4 % (20.0-50.0); % NEUTROPHILS 66.6 % (40.0-80.0); EOSINOPHILE ABSOLUTE 0.3 Th/cmm (0.1-0.4); HEMATOCRIT 27.2 % (41.0-60); HEMOGLOBIN 8.8 gm/dL (12-16); LYMPHOCYTE ABSOLUTE 1.8 Th/cmm (1.5-3.0); MEAN CORPUSCULAR HEMOGLOBIN 28.4 pg (27.0-31.0); MEAN CORPUSCULAR HGB CONC 32.2 pg (28.0-36.0); MEAN PLATELET VOLUME 11.3 fl; MONOCYTE ABSOLUTE 0.4 Th/cmm (0.3-1.0); NEUTROPHILE ABSOLUTE 4.7 Th/cmm (1.8-8.0); PLATELET COUNT 146 Th/cmm (150-400); RED CELL DISTRIBUTION WIDTH 16.5 % (11.5-20.0); WHITE BLOOD COUNT 7.2 Th/cmm (4.8-10.8)
[2018-01-06 07:19] LABS: ALBUMIN 3.1 gm/dL (3.7-5.3); ALKALINE PHOSPHATASE 75 U/L (34-104); ANION GAP 9.2 (7.0-16.0); BILIRUBIN,TOTAL 0.2 mg/dL (0.3-1.0); BUN - UREA NITROGEN 76 mg/dL (7-25); CALCIUM SERUM 8.8 mg/dL (8.6-10.3); CARBON DIOXIDE 32.6 mEq/L (21.0-31.0); CHLORIDE 109 mEq/L (98-107); CREATININE - SERUM 1.6 mg/dL (0.6-1.2); GLUCOSE 237 mg/dL (70-105); MAGNESIUM 2.4 mg/dL (1.9-2.7); PHOSPHOROUS 3.3 mg/dL (2.5-5.0); POTASSIUM SERUM 3.8 mEq/L (3.5-5.1); SGOT 29 U/L (13-39); SGPT/ALT 36 U/L (7-52); TOTAL PROTEIN,SERUM 6.1 gm/dL (6.0-8.3); URIC ACID 7.4 mg/dL (2.3-6.6)
[2018-01-06 07:48] LABS: SODIUM SERUM 147 mEq/L (136-145)
[2018-01-06] MEDS: Multivitamin w/ Minerals Tab GT SCH (08:51)
--- NOTE | 2018-01-06 08:59 | Consultation ---
DATE OF CONSULTATION: 01/05/2018 ATTENDING PHYSICIAN: Jose Tobias D.O. REASON FOR CONSULTATION: Worsening kidney function, electrolyte imbalance, and fluid management. HISTORY OF PRESENT ILLNESS: This is a 77-year-old female with past medical history of acute kidney injury, who was brought in because of electrolyte imbalance. A few hours prior to admission, the patient had labs drawn at the [facility]. This revealed a sodium of 171 with a BUN/creatinine of 104/1.7. She was immediately brought to the Emergency Room. Her sodium was 167 with a BUN/creatinine of 108/1.9. She had no nausea and vomiting as well as diarrhea. PAST MEDICAL HISTORY: 1. Acute kidney injury. 2. Alzheimer dementia. 3. Anemia of chronic disease. 4. Type 2 diabetes mellitus. 5. Essential hypertension. 6. Gastritis. PAST SURGICAL HISTORY: Status post PEG placement. CURRENT MEDICATIONS: She is currently on acetaminophen, amlodipine, ascorbic acid, hydrogel, clonidine, mirtazapine, ondansetron, pantoprazole. ALLERGIES: No known drug allergies. SOCIAL AND FAMILY HISTORY: I was not able to obtain from the patient because she is stuporous at the present time. REVIEW OF SYSTEMS: Again, I was not able to decipher from the patient because of the same reason. PHYSICAL EXAMINATION: GENERAL: The patient remains stuporous; however, she is comfortable. VITAL SIGNS: Blood pressure is 138/65, pulse 67, temperature 98 degrees. SKIN: Poor turgor, warm, no rash, no jaundice appreciated. HEENT: Head normocephalic, atraumatic. Eyes: Unable to assess her extraocular muscles. Pupils are equal, round, reactive to light and accommodates. Anicteric sclerae. Pale conjunctivae. Nose: Midline nasal septum. Mouth is dry mucosa. Poor dentition. NECK: Supple, no adenopathy, no thyromegaly, no bruits. Trachea palpated in the midline. CHEST AND CVS: S1, S2. No rub, murmur, nor gallop appreciated. Point of maximal impulse fifth intercostal space, left midclavicular line. No abdominal or femoral bruits appreciated. LUNGS: Equal expansion. No use of accessory muscles. No supraclavicular retractions. Decreased breath sounds, few rhonchi, but no rales nor wheezes appreciated. BREASTS: Symmetrical without any discharge. ABDOMEN: Flat, soft, positive for bowel sounds. No bruits either diastolic or systolic. RECTAL: Deferred. GENITOURINARY: Normal appearing female genitalia. MUSCULOSKELETAL: No effusions present in her joints, but unable to assess her range of motion. EXTREMITIES: No evidence of any edema, cyanosis, nor clubbing with palpable femoral, but unable to fully appreciate popliteal and dorsalis pedis pulses. NEUROLOGIC: The patient remains stuporous, so I was not able to pursue further my neuro exam. LABORATORY DATA: Reveal white count 7.1, hemoglobin 9.6, hematocrit 30.1, platelets 161, polys 58.3%. Sodium 167, potassium 3.7, chloride 123, bicarb 37.9, BUN 108, creatinine 1.9, glucose 125, calcium 9.8. IMPRESSION: 1. Acute kidney injury. The patient's acute kidney injury is initially prerenal in nature. Even though patient has G-tube feeding along with water flushes, this may not be enough to replenishable sensible and insensible fluid losses. This was supported by poor skin turgor, dry oral mucosa. She eventually became dehydrated with a decrease in effective circulating volume. Her prerenal azotemia progressed to acute tubular injury. 2. Metabolic encephalopathy, possibly due to abnormal electrolytes and dehydration, also consider intake of psychotropic medications. 3. Dehydration. 4. Contraction alkalosis. 5. Alzheimer dementia. 6. Anemia of chronic disease. 7. Type 2 diabetes mellitus. 8. Essential hypertension. 9. Gastritis. PLAN: 1. Urinalysis. 2. Urine spot sodium, eosinophils, creatinine, and urine osmolarity. 3. Renal ultrasound. 4. Continue on with IV fluids. 5. Water flushes. 6. Follow up electrolytes. Thank you, Dr. Tobias, for this consult. I will follow the patient closely with you. JOB# [id number]
[2018-01-06] MEDS: Hydrogel 3 oz Tube TP SCH (09:05)
--- NOTE | 2018-01-06 12:07 | Consultation ---
DATE OF CONSULTATION: 01/06/2018 PHYSICIAN REQUESTING CONSULTATION: Dr. Tobias. REASON FOR CONSULTATION: Depression. HISTORY OF PRESENT ILLNESS: This patient is a 77-year-old woman admitted for acute dehydration and the patient is reported to be depressed and demented and a psychiatric consultation is called to address the issue of the depression. Chart is reviewed. The patient is interviewed. The patient is very quiet. She is a thin built 77-year-old woman, lying in the bed with eyes closed, patient is stating that she is feeling tired and depressed and cannot give any information. The patient's review of the chart indicates the patient is currently on mirtazapine 15 mg. Sleep and appetite prior to the hospitalization are reported to be poor. PAST PSYCHIATRIC HISTORY: Details are not known. MEDICAL HISTORY: Significant for type 2 diabetes mellitus, essential hypertension and gastritis. SOCIAL HISTORY: The patient is a resident of the [facility]. SUBSTANCE ABUSE HISTORY: None. MENTAL STATUS EXAMINATION: The patient is a 77-year-old woman looking her stated age, thin built, superficially cooperative. Eye contact is poor. Mood is a bit depressed. Affect is constricted. Insight and judgment at this time are noted to be still limited. Impulse control is also noted to be limited. The patient has been not presenting with any threats to harm self or others, but however, the patient has poor coping skills. The patient is alert and oriented x 3. The patient is not suicidal or homicidal. Motivated to seek treatment. The patient denies active hallucinations or delusions are noted, but patient has short-term as well as long-term memory deficits. DIAGNOSTIC IMPRESSION: Major depressive disorder, recurrent and moderate. PLAN: To continue with Remeron and followup. Thank you, Dr. Tobias for allowing me to participate in the care of the patient. [facility]# [id number]
[2018-01-06] MEDS: Pantoprazole 40 mg/Packet GT SCH (12:08)
--- NOTE | 2018-01-06 13:01 | Internal Medicine Prog Note ---
Internal Medicine Subjective - Subjective Service Date: 01/06/18 Patient seen and examined:: with staff Patient is:: asleep, non-interactive Per staff patient has:: tolerating meds Internal Medicine Objective - Results Result Diagrams: 01/06/18 06:20 01/06/18 06:20 Recent Labs: Laboratory Last Values WBC 7.2 Th/cmm (4.8-10.8) 01/06/18 06:20 RBC 3.10 Mil/cmm (3.80-5.20) L 01/06/18 06:20 Hgb 8.8 gm/dL (12-16) L 01/06/18 06:20 Hct 27.2 % (41.0-60) L 01/06/18 06:20 MCV 88.0 fl (81-100) 01/06/18 06:20 MCH 28.4 pg (27.0-31.0) 01/06/18 06:20 MCHC Differential 32.2 pg (28.0-36.0) 01/06/18 06:20 RDW 16.5 % (11.5-20.0) 01/06/18 06:20 Plt Count 146 Th/cmm (150-400) L 01/06/18 06:20 MPV 11.3 fl 01/06/18 06:20 Neutrophils % 66.6 % (40.0-80.0) 01/06/18 06:20 Lymphocytes % 24.4 % (20.0-50.0) 01/06/18 06:20 Monocytes % 5.0 % (2.0-10.0) 01/06/18 06:20 Eosinophils % 3.7 % (0.0-5.0) 01/06/18 06:20 Basophils % 0.3 % (0.0-2.0) 01/06/18 06:20 Sodium 147 mEq/L (136-145) H D 01/06/18 06:20 Potassium 3.8 mEq/L (3.5-5.1) 01/06/18 06:20 Chloride 109 mEq/L (98-107) H 01/06/18 06:20 Carbon Dioxide 32.6 mEq/L (21.0-31.0) H 01/06/18 06:20 Anion Gap 9.2 (7.0-16.0) 01/06/18 06:20 BUN 76 mg/dL (7-25) H 01/06/18 06:20 Creatinine 1.6 mg/dL (0.6-1.2) H 01/06/18 06:20 Est GFR ( Amer) TNP 01/06/18 06:20 Est GFR (Non-Af Amer) TNP 01/06/18 06:20 BUN/Creatinine Ratio 47.5 01/06/18 06:20 Glucose 237 mg/dL (70-105) H 01/06/18 06:20 POC Glucose 197 MG/DL (70 - 105) H 01/06/18 12:09 Uric Acid 7.4 mg/dL (2.3-6.6) H 01/06/18 06:20 Calcium 8.8 mg/dL (8.6-10.3) 01/06/18 06:20 Phosphorus 3.3 mg/dL (2.5-5.0) 01/06/18 06:20 Magnesium 2.4 mg/dL (1.9-2.7) 01/06/18 06:20 Total Bilirubin 0.2 mg/dL (0.3-1.0) L 01/06/18 06:20 AST 29 U/L (13-39) 01/06/18 06:20 ALT 36 U/L (7-52) 01/06/18 06:20 Alkaline Phosphatase 75 U/L (34-104) 01/06/18 06:20 Total Protein 6.1 gm/dL (6.0-8.3) 01/06/18 06:20 Albumin 3.1 gm/dL (3.7-5.3) L 01/06/18 06:20 Globulin 3.0 gm/dL 01/06/18 06:20 Albumin/Globulin Ratio 1.0 (1.0-1.8) 01/06/18 06:20 - Physical Exam Vitals and I&O: Vital Signs Temp 96.2 F 01/06/18 12:00 Pulse 62 01/06/18 12:00 Resp 20 01/06/18 12:00 BP 130/68 01/06/18 12:00 Pulse Ox 97 01/06/18 12:00 Intake & Output 01/05/18 01/06/18 01/06/18 18:59 06:59 18:59 Intake Total 1999 1907.5 1804 Balance 1999 1907.5 1804 Weight (lbs) 109 lb 9.6 oz 109 lb 9.6 oz Intake: Intake, IV Amount 1999 937.5 1000 Dextrose 5% 1,000 ml @ 1999 937.5 1000 125 mls/hr IV .Q8H [facility] Rx #:[id number] Tube Feeding 670 804 Other 300 Other: # Voids 2 3 # Bowel Movements 2 Stool Characteristics Soft Soft Liquid Liquid Brown Brown Weight Source Bedscale Bedscale Active Medications: Current Medications Acetaminophen (Tylenol 650mg/20.3ml Suspension) 650 mg GT Q4H PRN PRN Reason: TEMP >100.5 Stop: 03/06/18 00:13 Acetaminophen (Tylenol) 650 mg PO Q4H PRN PRN Reason: Pain Or Fever above 101 Stop: 03/06/18 00:15 Allopurinol (Zyloprim) 100 mg PO DAILY [facility] Stop: 03/08/18 08:59 Amlodipine Besylate (Norvasc) 10 mg GT DAILY [facility] Stop: 03/06/18 08:59 Last Admin: 01/06/18 08:51 Dose: 10 mg Ascorbic Acid (Vitamin C) 500 mg GT BID [facility] Stop: 03/06/18 08:59 Last Admin: 01/06/18 08:51 Dose: 500 mg Bandage/Support Products (Hydrogel) 1 appl TP DAILY [facility] Stop: 03/06/18 08:59 Last Admin: 01/06/18 09:05 Dose: 1 appl Heparin Sodium (Porcine) (Heparin) 5,000 units SUBQ Q12HR [facility] Stop: 03/06/18 08:59 Last Admin: 01/06/18 08:51 Dose: 5,000 units Dextrose (D5w) 1,000 mls @ 100 mls/hr IV .Q10H [facility] Stop: 03/07/18 12:59 Last Admin: 01/06/18 12:51 Dose: 100 mls/hr Insulin Aspart (Novolog) 0 units SUBQ ACHS [facility]; Protocol Stop: 03/06/18 07:29 Last Admin: 01/06/18 12:09 Dose: Not Given Mirtazapine (Remeron) 15 mg GT HS [facility]; Protocol Stop: 03/06/18 20:59 Last Admin: 01/05/18 21:04 Dose: 15 mg Ondansetron HCl (Zofran) 4 mg IV Q8H PRN PRN Reason: Nausea / Vomiting Stop: 03/06/18 00:15 Pantoprazole Sodium (Protonix) 40 mg GT DAILY@1200 ED Stop: 03/06/18 11:59 Last Admin: 01/06/18 12:08 Dose: 40 mg General: weak HEENT: NC/AT, PERRLA Neck: Supple Lungs: CTAB Cardiovascular: RRR, Normal S1, Normal S2, without murmur Abdomen: soft, non-tender, non-distended, positive bowel sound Extremities: excoriation Neurological: unable to follow command - Procedures Procedures: Procedures Procedure Code Date EGD PLACE GASTROSTOMY TUBE 53202 06/21/17 EXCISION OF ASCENDING COLON, ENDO, DIAGN [id number] 06/21/17 EXCISION OF CECUM, ENDO, DIAGN 7HEM5KY 06/21/17 EXCISION OF SIGMOID COLON, ENDO, DIAGN [id number] 06/21/17 EXCISION OF STOMACH, ENDO, DIAGN 1ZQ15MW 06/21/17 INSERTION OF FEEDING DEVICE INTO STOMACH, PERC APPROACH [id number] 06/21/17 INSERTION OF INFUSION DEV INTO SUP VENA CAVA, PERC APPROACH 01EQ67D 06/21/17 INTRODUCTION OF NUTRITIONAL INTO CENTRAL VEIN, PERC APPROACH 4Z2978T 06/21/17 PARTIAL REMOVAL OF COLON 63690 06/21/17 RESECTION OF RIGHT LARGE INTESTINE, OPEN APPROACH 7AVS8YD 06/21/17 RESPIRATORY VENTILATION, LESS THAN 24 CONSECUTIVE HOURS [id number] 06/21/17 TRANSFUSE NONAUT RED BLOOD CELLS IN PERIPH VEIN, PERC 60905D7 11/16/17 Internal Medicine Assmt/Plan - Assessment Assessment: Severe dehydration, history of acute renal failure, diabetes, congestive heart failure, dementia and anxiety. - Plan Plan: continue ivf for hydration follow up labs in am continue current plan of care Nutritional Asmnt/Malnutr-PDOC - Dietary Evaluation Malnutrition Findings (Please click <Entered> for more info): Nutritional Asmnt/Malnutrition Start: 01/05/18 16: 04 Text: Status: Complete Freq: Protocol: Document 01/05/18 16:07 GRISELDA (Rec: 01/05/18 16:35 GRISELDA [email or web address]) Nutritional Asmnt/Malnutrition Patient General Information Nutritional Screening High Risk Diagnosis severe dehydration Pertinent Medical Hx/Surgical Hx DM, CHF, dementia, renal failure, anxiety, PEG/Gtube, schizophrenia Subjective Information Pt seen resting in bed at time of visit. TF was off at this time. Pt had renal U/S today per nurse. Per nurse ntoe, pt was tolerating TF, no residual noted. Current Diet Order/ Nutrition Support Glucerna 1.2 at 67ml x 20hr Pertinent Medications vit C, D5w, novolog, remeron, protonix Pertinent Labs 01/04 Na 167, Cl 123, BUN 108, Cr 1.9, glucose 125, POC 190 Nutritional Hx/Data Height 5 ft 3 in Height (Calculated Centimeters) 160.0 Current Weight (lbs) 104 lb Weight (Calculated Kilograms) 47.2 Weight (Calculated Grams) 46571.6 Body Mass Index (BMI) 18.4 GI Symptoms GI Symptoms None Last BM not indicated Difficult in: None Usual diet at home diabetisource at 67ml x 20hr, providing 1680kcal, 80g protein Skin Integrity/Comment: dryless, loose, Jose 14 Estimated Nutritional Goals Calories/Kcals/Kg 23-27 based on IBW 52kg Kcals Calculated 3982-3766 Protein g/k-1.2 monitor renal labs Protein Calculated 52-62 Fluid: ml per MD Nutritional Problem 1. Problem Problem altered nutrition related labs Etiology electrolytes/fluid imbalance and hx of DM Signs/Symptoms: Na 167, Cl 123, BUN 108, Cr 1. 9, glucose 125, POC 190 Intervention/Recommendation Comments 1. Recommend decrease Glucerna to 60ml/hr x 20hr, providing 1440kcal and 72g protein to avoid overfeeding pt. 2. Monitor TF rate, tolerance, wt, skin integrity and labs 3. F/U as high risk in 2-3 days, 01/07-01/08 Expected Outcomes/Goals Expected Outcomes/Goals 1. Pt to meet at least 75% of nutritional needs via nutrition support with tolerance 2. Wt stability, skin to remain intact, labs to approach WNL.
--- NOTE | 2018-01-06 14:14 | General Progress Note ---
Subjective - Review of Systems Service Date: 01/06/18 Subjective: sleeping, comfortable Objective - Results Result Diagrams: 01/06/18 06:20 01/06/18 06:20 Recent Labs: Laboratory Last Values WBC 7.2 Th/cmm (4.8-10.8) 01/06/18 06:20 RBC 3.10 Mil/cmm (3.80-5.20) L 01/06/18 06:20 Hgb 8.8 gm/dL (12-16) L 01/06/18 06:20 Hct 27.2 % (41.0-60) L 01/06/18 06:20 MCV 88.0 fl (81-100) 01/06/18 06:20 MCH 28.4 pg (27.0-31.0) 01/06/18 06:20 MCHC Differential 32.2 pg (28.0-36.0) 01/06/18 06:20 RDW 16.5 % (11.5-20.0) 01/06/18 06:20 Plt Count 146 Th/cmm (150-400) L 01/06/18 06:20 MPV 11.3 fl 01/06/18 06:20 Neutrophils % 66.6 % (40.0-80.0) 01/06/18 06:20 Lymphocytes % 24.4 % (20.0-50.0) 01/06/18 06:20 Monocytes % 5.0 % (2.0-10.0) 01/06/18 06:20 Eosinophils % 3.7 % (0.0-5.0) 01/06/18 06:20 Basophils % 0.3 % (0.0-2.0) 01/06/18 06:20 Sodium 147 mEq/L (136-145) H D 01/06/18 06:20 Potassium 3.8 mEq/L (3.5-5.1) 01/06/18 06:20 Chloride 109 mEq/L (98-107) H 01/06/18 06:20 Carbon Dioxide 32.6 mEq/L (21.0-31.0) H 01/06/18 06:20 Anion Gap 9.2 (7.0-16.0) 01/06/18 06:20 BUN 76 mg/dL (7-25) H 01/06/18 06:20 Creatinine 1.6 mg/dL (0.6-1.2) H 01/06/18 06:20 Est GFR ( Amer) TNP 01/06/18 06:20 Est GFR (Non-Af Amer) TNP 01/06/18 06:20 BUN/Creatinine Ratio 47.5 01/06/18 06:20 Glucose 237 mg/dL (70-105) H 01/06/18 06:20 POC Glucose 197 MG/DL (70 - 105) H 01/06/18 12:09 Uric Acid 7.4 mg/dL (2.3-6.6) H 01/06/18 06:20 Calcium 8.8 mg/dL (8.6-10.3) 01/06/18 06:20 Phosphorus 3.3 mg/dL (2.5-5.0) 01/06/18 06:20 Magnesium 2.4 mg/dL (1.9-2.7) 01/06/18 06:20 Total Bilirubin 0.2 mg/dL (0.3-1.0) L 01/06/18 06:20 AST 29 U/L (13-39) 01/06/18 06:20 ALT 36 U/L (7-52) 01/06/18 06:20 Alkaline Phosphatase 75 U/L (34-104) 01/06/18 06:20 Total Protein 6.1 gm/dL (6.0-8.3) 01/06/18 06:20 Albumin 3.1 gm/dL (3.7-5.3) L 01/06/18 06:20 Globulin 3.0 gm/dL 01/06/18 06:20 Albumin/Globulin Ratio 1.0 (1.0-1.8) 01/06/18 06:20 - Physical Exam Vitals and I&O: Vital Signs Temp 96.2 F 01/06/18 12:00 Pulse 62 01/06/18 12:00 Resp 20 01/06/18 12:00 BP 130/68 01/06/18 12:00 Pulse Ox 97 01/06/18 12:00 Intake & Output 01/05/18 01/06/18 01/06/18 18:59 06:59 18:59 Intake Total 1999 1907.5 1804 Balance 1999 1907.5 1804 Weight (lbs) 49.714 kg 49.714 kg Intake: Intake, IV Amount 1999 937.5 1000 Dextrose 5% 1,000 ml @ 2000 937.5 1000 125 mls/hr IV .Q8H [facility] Rx #:[id number] Tube Feeding 670 804 Other 300 Other: # Voids 2 3 # Bowel Movements 2 Stool Characteristics Soft Soft Liquid Liquid Brown Brown Weight Source Bedscale Bedscale Active Medications: Current Medications Acetaminophen (Tylenol 650mg/20.3ml Suspension) 650 mg GT Q4H PRN PRN Reason: TEMP >100.5 Stop: 03/06/18 00:13 Acetaminophen (Tylenol) 650 mg PO Q4H PRN PRN Reason: Pain Or Fever above 101 Stop: 03/06/18 00:15 Allopurinol (Zyloprim) 100 mg PO DAILY [facility] Stop: 03/07/18 16:59 Amlodipine Besylate (Norvasc) 10 mg GT DAILY [facility] Stop: 03/06/18 08:59 Last Admin: 01/06/18 08:51 Dose: 10 mg Ascorbic Acid (Vitamin C) 500 mg GT BID [facility] Stop: 03/06/18 08:59 Last Admin: 01/06/18 08:51 Dose: 500 mg Bandage/Support Products (Hydrogel) 1 appl TP DAILY [facility] Stop: 03/06/18 08:59 Last Admin: 01/06/18 09:05 Dose: 1 appl Heparin Sodium (Porcine) (Heparin) 5,000 units SUBQ Q12HR ED Stop: 03/06/18 08:59 Last Admin: 01/06/18 08:51 Dose: 5,000 units Dextrose (D5w) 1,000 mls @ 100 mls/hr IV .Q10H [facility] Stop: 03/07/18 12:59 Last Admin: 01/06/18 12:51 Dose: 100 mls/hr Insulin Aspart (Novolog) 0 units SUBQ ACHS [facility]; Protocol Stop: 03/06/18 07:29 Last Admin: 01/06/18 12:09 Dose: Not Given Mirtazapine (Remeron) 15 mg GT HS [facility]; Protocol Stop: 03/06/18 20:59 Last Admin: 01/05/18 21:04 Dose: 15 mg Ondansetron HCl (Zofran) 4 mg IV Q8H PRN PRN Reason: Nausea / Vomiting Stop: 03/06/18 00:15 Pantoprazole Sodium (Protonix) 40 mg GT DAILY@1200 [facility] Stop: 03/06/18 11:59 Last Admin: 01/06/18 12:08 Dose: 40 mg General: No acute distress HEENT: Atraumatic, PERRLA Neck: Supple, +2 carotid pulse wo bruit Cardiovascular: Regular rate, Normal S1, Normal S2 Lungs: Clear to auscultation Abdomen: Bowel sounds, Soft Extremities: no Edema Neurological: Sensation intact Skin: no Rash Psych/Mental Status: Mood NL - Procedures Procedures: Procedures Procedure Code Date EGD PLACE GASTROSTOMY TUBE 58998 06/21/17 EXCISION OF ASCENDING COLON, ENDO, DIAGN [id number] 06/21/17 EXCISION OF CECUM, ENDO, DIAGN [id number] 06/21/17 EXCISION OF SIGMOID COLON, ENDO, DIAGN [id number] 06/21/17 EXCISION OF STOMACH, ENDO, DIAGN [id number] 06/21/17 INSERTION OF FEEDING DEVICE INTO STOMACH, PERC APPROACH [id number] 06/21/17 INSERTION OF INFUSION DEV INTO SUP VENA CAVA, PERC APPROACH [id number] 06/21/17 INTRODUCTION OF NUTRITIONAL INTO CENTRAL VEIN, PERC APPROACH [id number] 06/21/17 PARTIAL REMOVAL OF COLON 39409 06/21/17 RESECTION OF RIGHT LARGE INTESTINE, OPEN APPROACH [id number] 06/21/17 RESPIRATORY VENTILATION, LESS THAN 24 CONSECUTIVE HOURS [id number] 06/21/17 TRANSFUSE NONAUT RED BLOOD CELLS IN PERIPH VEIN, PERC [id number] 11/16/17 Assessment/Plan - Assessment Assessment: LEONIE Met Enceph Dehydration Contraction Alkalosis Alzh Dementia T2DM Ess Htn Gastritis - Plan Plan: Lab - Result Diagrams 01/06/18 06:20 01/06/18 06:20 Current Medications Acetaminophen (Tylenol 650mg/20.3ml Suspension) 650 mg GT Q4H PRN PRN Reason: TEMP >100.5 Stop: 03/06/18 00:13 Acetaminophen (Tylenol) 650 mg PO Q4H PRN PRN Reason: Pain Or Fever above 101 Stop: 03/06/18 00:15 Allopurinol (Zyloprim) 100 mg PO DAILY [facility] Stop: 03/07/18 16:59 Amlodipine Besylate (Norvasc) 10 mg GT DAILY [facility] Stop: 03/06/18 08:59 Last Admin: 01/06/18 08:51 Dose: 10 mg Ascorbic Acid (Vitamin C) 500 mg GT BID [facility] Stop: 03/06/18 08:59 Last Admin: 01/06/18 08:51 Dose: 500 mg Bandage/Support Products (Hydrogel) 1 appl TP DAILY ED Stop: 03/06/18 08:59 Last Admin: 01/06/18 09:05 Dose: 1 appl Heparin Sodium (Porcine) (Heparin) 5,000 units SUBQ Q12HR ED Stop: 03/06/18 08:59 Last Admin: 01/06/18 08:51 Dose: 5,000 units Dextrose (D5w) 1,000 mls @ 100 mls/hr IV .Q10H [facility] Stop: 03/07/18 12:59 Last Admin: 01/06/18 12:51 Dose: 100 mls/hr Insulin Aspart (Novolog) 0 units SUBQ ACHS [facility]; Protocol Stop: 03/06/18 07:29 Last Admin: 01/06/18 12:09 Dose: Not Given Mirtazapine (Remeron) 15 mg GT HS [facility]; Protocol Stop: 03/06/18 20:59 Last Admin: 01/05/18 21:04 Dose: 15 mg Ondansetron HCl (Zofran) 4 mg IV Q8H PRN PRN Reason: Nausea / Vomiting Stop: 03/06/18 00:15 Pantoprazole Sodium (Protonix) 40 mg GT DAILY@1200 ED Stop: 03/06/18 11:59 Last Admin: 01/06/18 12:08 Dose: 40 mg Lab - Result Diagrams 01/06/18 06:20 01/06/18 06:20 Kidney fnc improving w/ BUN/CR of 76/1.6 Na down to 147 continue hydration, H20 flushes Nutritional Asmnt/Malnutr-PDOC - Dietary Evaluation Malnutrition Findings (Please click <Entered> for more info): Nutritional Asmnt/Malnutrition Start: 01/05/18 16: 04 Text: Status: Complete Freq: Protocol: Document 01/05/18 16:07 GRISELDA (Rec: 01/05/18 16:35 [email or web address] [email or web address]) Nutritional Asmnt/Malnutrition Patient General Information Nutritional Screening High Risk Diagnosis severe dehydration Pertinent Medical Hx/Surgical Hx DM, CHF, dementia, renal failure, anxiety, PEG/Gtube, schizophrenia Subjective Information Pt seen resting in bed at time of visit. TF was off at this time. Pt had renal U/S today per nurse. Per nurse ntoe, pt was tolerating TF, no residual noted. Current Diet Order/ Nutrition Support Glucerna 1.2 at 67ml x 20hr Pertinent Medications vit C, D5w, novolog, remeron, protonix Pertinent Labs 01/04 Na 167, Cl 123, BUN 108, Cr 1.9, glucose 125, POC 190 Nutritional Hx/Data Height 1.6 m Height (Calculated Centimeters) 160.0 Current Weight (lbs) 47.174 kg Weight (Calculated Kilograms) 47.2 Weight (Calculated Grams) 02524.6 Body Mass Index (BMI) 18.4 GI Symptoms GI Symptoms None Last BM not indicated Difficult in: None Usual diet at home diabetisource at 67ml x 20hr, providing 1680kcal, 80g protein Skin Integrity/Comment: dryless, loose, Jose 14 Estimated Nutritional Goals Calories/Kcals/Kg 23-27 based on IBW 52kg Kcals Calculated 8414-0394 Protein g/k-1.2 monitor renal labs Protein Calculated 52-62 Fluid: ml per MD Nutritional Problem 1. Problem Problem altered nutrition related labs Etiology electrolytes/fluid imbalance and hx of DM Signs/Symptoms: Na 167, Cl 123, BUN 108, Cr 1. 9, glucose 125, POC 190 Intervention/Recommendation Comments 1. Recommend decrease Glucerna to 60ml/hr x 20hr, providing 1440kcal and 72g protein to avoid overfeeding pt. 2. Monitor TF rate, tolerance, wt, skin integrity and labs 3. F/U as high risk in 2-3 days, 01/07-01/08 Expected Outcomes/Goals Expected Outcomes/Goals 1. Pt to meet at least 75% of nutritional needs via nutrition support with tolerance 2. Wt stability, skin to remain intact, labs to approach WNL.
[2018-01-06 17:30] LABS: URINE SOURCE MIDSTREAM
[2018-01-06 19:07] LABS: URINE BILIRUBIN NEGATIVE (NEGATIVE); URINE BLOOD NEGATIVE (NEGATIVE); URINE CLARITY CLEAR (CLEAR); URINE COLOR YELLOW; URINE GLUCOSE (UA) NEGATIVE (NEGATIVE); URINE KETONE NEGATIVE (NEGATIVE); URINE MICROSCOPIC INDICATED? YES; URINE PROTEIN TRACE mg/dL (NEGATIVE)
[2018-01-06 19:08] LABS: URINE BACTERIA NONE SEEN /hpf (NONE SEEN); URINE EPITHELIAL CELLS RARE /lpf (FEW); URINE LEUKOCYTE ESTERASE NEGATIVE (NEGATIVE); URINE NITRATE NEGATIVE (NEGATIVE); URINE RBC NONE SEEN /hpf (0-5); URINE UROBILINOGEN 0.2 E.U./dL (0.2 - 1.0); URINE WBC 0-2 /hpf (0-5)
[2018-01-06 21:23] LABS: EOSINOPHIL SMEAR SOURCE URINE; EOSINOPHILS SMEAR COUNT NONE SEEN (NONE SEEN)
[2018-01-07] MEDS: INSULIN ASPART, RECOMBINANT 100 UNITS/ML SUBQ SCH ×4 (06:46→20:58)
[2018-01-07] MEDS: Dextrose 5% 1,000 ML IV SCH ×2 (07:20→18:21)
[2018-01-07 07:27] LABS: % BASOPHILS 0.4 % (0.0-2.0); % EOSINOPHILS 4.9 % (0.0-5.0); % LYMPHOCYTES 24.9 % (20.0-50.0); % MONOCYTES 7.1 % (2.0-10.0); % NEUTROPHILS 62.7 % (40.0-80.0); EOSINOPHILE ABSOLUTE 0.4 Th/cmm (0.1-0.4); HEMATOCRIT 26.8 % (41.0-60); HEMOGLOBIN 8.9 gm/dL (12-16); MEAN CELL VOLUME 86.7 fl (81-100); MEAN CORPUSCULAR HEMOGLOBIN 28.9 pg (27.0-31.0); MEAN CORPUSCULAR HGB CONC 33.3 pg (28.0-36.0); MEAN PLATELET VOLUME 11.6 fl; MONOCYTE ABSOLUTE 0.6 Th/cmm (0.3-1.0); NEUTROPHILE ABSOLUTE 4.9 Th/cmm (1.8-8.0); PLATELET COUNT 155 Th/cmm (150-400); RED BLOOD COUNT 3.09 Mil/cmm (3.80-5.20); RED CELL DISTRIBUTION WIDTH 15.8 % (11.5-20.0); WHITE BLOOD COUNT 7.9 Th/cmm (4.8-10.8)
[2018-01-07 07:29] LABS: BUN - UREA NITROGEN 61 mg/dL (7-25); CALCIUM SERUM 8.9 mg/dL (8.6-10.3); CARBON DIOXIDE 33.6 mEq/L (21.0-31.0); CHLORIDE 105 mEq/L (98-107); CREATININE - SERUM 1.4 mg/dL (0.6-1.2); GLUCOSE 167 mg/dL (70-105); POTASSIUM SERUM 3.6 mEq/L (3.5-5.1); SODIUM SERUM 144 mEq/L (136-145)
[2018-01-07] MEDS: Multivitamin w/ Minerals Tab GT SCH (08:28)
[2018-01-07] MEDS: Hydrogel 3 oz Tube TP SCH (08:29)
[2018-01-07] MEDS: Pantoprazole 40 mg/Packet GT SCH (11:16)
--- NOTE | 2018-01-07 16:45 | Internal Medicine Prog Note ---
Internal Medicine Subjective - Subjective Service Date: 01/07/18 Patient seen and examined:: with staff Patient is:: asleep, non-interactive Per staff patient has:: tolerating meds Internal Medicine Objective - Results Result Diagrams: 01/07/18 06:48 01/07/18 06:48 Recent Labs: Laboratory Last Values WBC 7.9 Th/cmm (4.8-10.8) 01/07/18 06:48 RBC 3.09 Mil/cmm (3.80-5.20) L 01/07/18 06:48 Hgb 8.9 gm/dL (12-16) L 01/07/18 06:48 Hct 26.8 % (41.0-60) L 01/07/18 06:48 MCV 86.7 fl (81-100) 01/07/18 06:48 MCH 28.9 pg (27.0-31.0) 01/07/18 06:48 MCHC Differential 33.3 pg (28.0-36.0) 01/07/18 06:48 RDW 15.8 % (11.5-20.0) 01/07/18 06:48 Plt Count 155 Th/cmm (150-400) 01/07/18 06:48 MPV 11.6 fl 01/07/18 06:48 Neutrophils % 62.7 % (40.0-80.0) 01/07/18 06:48 Lymphocytes % 24.9 % (20.0-50.0) 01/07/18 06:48 Monocytes % 7.1 % (2.0-10.0) 01/07/18 06:48 Eosinophils % 4.9 % (0.0-5.0) 01/07/18 06:48 Basophils % 0.4 % (0.0-2.0) 01/07/18 06:48 Eos Smear Source URINE 01/06/18 16:56 Eos Smear Total Cells NONE SEEN (NONE SEEN) 01/06/18 16:56 Sodium 144 mEq/L (136-145) 01/07/18 06:48 Potassium 3.6 mEq/L (3.5-5.1) 01/07/18 06:48 Chloride 105 mEq/L (98-107) 01/07/18 06:48 Carbon Dioxide 33.6 mEq/L (21.0-31.0) H 01/07/18 06:48 Anion Gap 9.0 (7.0-16.0) 01/07/18 06:48 BUN 61 mg/dL (7-25) H 01/07/18 06:48 Creatinine 1.4 mg/dL (0.6-1.2) H 01/07/18 06:48 Est GFR ( Amer) TNP 01/07/18 06:48 Est GFR (Non-Af Amer) TNP 01/07/18 06:48 BUN/Creatinine Ratio 43.6 01/07/18 06:48 Glucose 167 mg/dL (70-105) H 01/07/18 06:48 POC Glucose 186 MG/DL (70 - 105) H 01/07/18 11:12 Uric Acid 7.4 mg/dL (2.3-6.6) H 01/06/18 06:20 Calcium 8.9 mg/dL (8.6-10.3) 01/07/18 06:48 Phosphorus 3.3 mg/dL (2.5-5.0) 01/06/18 06:20 Magnesium 2.4 mg/dL (1.9-2.7) 01/06/18 06:20 Total Bilirubin 0.2 mg/dL (0.3-1.0) L 01/06/18 06:20 AST 29 U/L (13-39) 01/06/18 06:20 ALT 36 U/L (7-52) 01/06/18 06:20 Alkaline Phosphatase 75 U/L (34-104) 01/06/18 06:20 Total Protein 6.1 gm/dL (6.0-8.3) 01/06/18 06:20 Albumin 3.1 gm/dL (3.7-5.3) L 01/06/18 06:20 Globulin 3.0 gm/dL 01/06/18 06:20 Albumin/Globulin Ratio 1.0 (1.0-1.8) 01/06/18 06:20 Urine Source MIDSTREAM 01/06/18 16:56 Urine Color YELLOW 01/06/18 16:56 Urine Clarity CLEAR (CLEAR) 01/06/18 16:56 Urine pH 6.0 (4.6 - 8.0) 01/06/18 16:56 Ur Specific [place] <= 1.005 (1.005-1.030) 01/06/18 16:56 Urine Protein TRACE mg/dL (NEGATIVE) 01/06/18 16:56 Urine Glucose (UA) NEGATIVE mg/dL (NEGATIVE) 01/06/18 16:56 Urine Ketones NEGATIVE mg/dL (NEGATIVE) 01/06/18 16:56 Urine Blood NEGATIVE (NEGATIVE) 01/06/18 16:56 Urine Nitrate NEGATIVE (NEGATIVE) 01/06/18 16:56 Urine Bilirubin NEGATIVE (NEGATIVE) 01/06/18 16:56 Urine Urobilinogen 0.2 E.U./dL (0.2 - 1.0) 01/06/18 16:56 Ur Leukocyte Esterase NEGATIVE (NEGATIVE) 01/06/18 16:56 Urine RBC NONE SEEN /hpf (0-5) 01/06/18 16:56 Urine WBC 0-2 /hpf (0-5) 01/06/18 16:56 Ur Epithelial Cells RARE /lpf (FEW) 01/06/18 16:56 Urine Bacteria NONE SEEN /hpf (NONE SEEN) 01/06/18 16:56 Ur Random Sodium 21 mmol/L 01/06/18 16:56 Urine Creatinine 15.0 mg/dl (28.0-217.0) L 01/06/18 16:56 - Physical Exam Vitals and I&O: Vital Signs Temp 96.4 F 01/07/18 13:34 Pulse 82 01/07/18 13:34 Resp 20 01/07/18 13:34 BP 159/81 01/07/18 13:34 Pulse Ox 100 01/07/18 13:34 Intake & Output 01/06/18 01/07/18 01/07/18 18:59 06:59 18:59 Intake Total 2640 1000 841.667 Balance 2640 1000 841.667 Weight (lbs) 107 lb 9.6 oz 111 lb 12.8 oz Intake: Intake, IV Amount 1000 1000 841.667 Dextrose 5% 1,000 ml @ 1000 841.667 100 mls/hr IV .Q10H [facility] Rx#:[id number] Dextrose 5% 1,000 ml @ 1000 125 mls/hr IV .Q8H [facility] Rx #:[id number] Tube Feeding 1340 Other 300 Other: # Voids 3 3 # Bowel Movements 1 2 Stool Characteristics Formed Soft Soft Brown Weight Source Bedscale Bedscale Active Medications: Current Medications Acetaminophen (Tylenol 650mg/20.3ml Suspension) 650 mg GT Q4H PRN PRN Reason: TEMP >100.5 Stop: 03/06/18 00:13 Acetaminophen (Tylenol) 650 mg PO Q4H PRN PRN Reason: Pain Or Fever above 101 Stop: 03/06/18 00:15 Allopurinol (Zyloprim) 100 mg PO DAILY [facility] Stop: 03/07/18 16:59 Last Admin: 01/07/18 08:28 Dose: 100 mg Amlodipine Besylate (Norvasc) 10 mg GT DAILY ED Stop: 03/06/18 08:59 Last Admin: 01/07/18 08:29 Dose: 10 mg Ascorbic Acid (Vitamin C) 500 mg GT BID [facility] Stop: 03/06/18 08:59 Last Admin: 01/07/18 08:29 Dose: 500 mg Bandage/Support Products (Hydrogel) 1 appl TP DAILY [facility] Stop: 03/06/18 08:59 Last Admin: 01/07/18 08:29 Dose: 1 appl Heparin Sodium (Porcine) (Heparin) 5,000 units SUBQ Q12HR [facility] Stop: 03/06/18 08:59 Last Admin: 01/07/18 08:28 Dose: 5,000 units Dextrose (D5w) 1,000 mls @ 100 mls/hr IV .Q10H [facility] Stop: 03/07/18 12:59 Last Admin: 01/07/18 07:20 Dose: 100 mls/hr Insulin Aspart (Novolog) 0 units SUBQ ACHS [facility]; Protocol Stop: 03/06/18 07:29 Last Admin: 01/07/18 11:16 Dose: Not Given Mirtazapine (Remeron) 15 mg GT HS [facility]; Protocol Stop: 03/06/18 20:59 Last Admin: 01/06/18 20:30 Dose: 15 mg Ondansetron HCl (Zofran) 4 mg IV Q8H PRN PRN Reason: Nausea / Vomiting Stop: 03/06/18 00:15 Pantoprazole Sodium (Protonix) 40 mg GT DAILY@1200 ED Stop: 03/06/18 11:59 Last Admin: 01/07/18 11:16 Dose: 40 mg General: weak HEENT: NC/AT, PERRLA Neck: Supple Lungs: CTAB Cardiovascular: RRR, Normal S1, Normal S2, without murmur Abdomen: soft, non-tender, non-distended, positive bowel sound Extremities: excoriation Neurological: unable to follow command - Procedures Procedures: Procedures Procedure Code Date EGD PLACE GASTROSTOMY TUBE 58977 06/21/17 EXCISION OF ASCENDING COLON, ENDO, DIAGN [id number] 06/21/17 EXCISION OF CECUM, ENDO, DIAGN [id number] 06/21/17 EXCISION OF SIGMOID COLON, ENDO, DIAGN [id number] 06/21/17 EXCISION OF STOMACH, ENDO, DIAGN [id number] 06/21/17 INSERTION OF FEEDING DEVICE INTO STOMACH, PERC APPROACH [id number] 06/21/17 INSERTION OF INFUSION DEV INTO SUP VENA CAVA, PERC APPROACH 84ZS79M 06/21/17 INTRODUCTION OF NUTRITIONAL INTO CENTRAL VEIN, PERC APPROACH [id number] 06/21/17 PARTIAL REMOVAL OF COLON 54007 06/21/17 RESECTION OF RIGHT LARGE INTESTINE, OPEN APPROACH [id number] 06/21/17 RESPIRATORY VENTILATION, LESS THAN 24 CONSECUTIVE HOURS [id number] 06/21/17 TRANSFUSE NONAUT RED BLOOD CELLS IN PERIPH VEIN, PERC [id number] 11/16/17 Internal Medicine Assmt/Plan - Assessment Assessment: Severe dehydration, history of acute renal failure, diabetes, congestive heart failure, dementia and anxiety. - Plan Plan: continue ivf for hydration follow up labs in am continue current plan of care Nutritional Asmnt/Malnutr-PDOC - Dietary Evaluation Malnutrition Findings (Please click <Entered> for more info): Nutritional Asmnt/Malnutrition Start: 01/05/18 16: 04 Text: Status: Complete Freq: Protocol: Document 01/05/18 16:07 LCHENG (Rec: 01/05/18 16:35 [email or web address]) Nutritional Asmnt/Malnutrition Patient General Information Nutritional Screening High Risk Diagnosis severe dehydration Pertinent Medical Hx/Surgical Hx DM, CHF, dementia, renal failure, anxiety, PEG/Gtube, schizophrenia Subjective Information Pt seen resting in bed at time of visit. TF was off at this time. Pt had renal U/S today per nurse. Per nurse ntoe, pt was tolerating TF, no residual noted. Current Diet Order/ Nutrition Support Glucerna 1.2 at 67ml x 20hr Pertinent Medications vit C, D5w, novolog, remeron, protonix Pertinent Labs 01/04 Na 167, Cl 123, BUN 108, Cr 1.9, glucose 125, POC 190 Nutritional Hx/Data Height 5 ft 3 in Height (Calculated Centimeters) 160.0 Current Weight (lbs) 104 lb Weight (Calculated Kilograms) 47.2 Weight (Calculated Grams) 98727.6 Body Mass Index (BMI) 18.4 GI Symptoms GI Symptoms None Last BM not indicated Difficult in: None Usual diet at home diabetisource at 67ml x 20hr, providing 1680kcal, 80g protein Skin Integrity/Comment: dryless, loose, Jose 14 Estimated Nutritional Goals Calories/Kcals/Kg 23-27 based on IBW 52kg Kcals Calculated 8599-0185 Protein g/k-1.2 monitor renal labs Protein Calculated 52-62 Fluid: ml per MD Nutritional Problem 1. Problem Problem altered nutrition related labs Etiology electrolytes/fluid imbalance and hx of DM Signs/Symptoms: Na 167, Cl 123, BUN 108, Cr 1. 9, glucose 125, POC 190 Intervention/Recommendation Comments 1. Recommend decrease Glucerna to 60ml/hr x 20hr, providing 1440kcal and 72g protein to avoid overfeeding pt. 2. Monitor TF rate, tolerance, wt, skin integrity and labs 3. F/U as high risk in 2-3 days, 01/07-01/08 Expected Outcomes/Goals Expected Outcomes/Goals 1. Pt to meet at least 75% of nutritional needs via nutrition support with tolerance 2. Wt stability, skin to remain intact, labs to approach WNL.
--- NOTE | 2018-01-07 16:48 | General Progress Note ---
Subjective - Review of Systems Service Date: 01/07/18 Subjective: sleeping, comfortable Objective - Results Result Diagrams: 01/07/18 06:48 01/07/18 06:48 Recent Labs: Laboratory Last Values WBC 7.9 Th/cmm (4.8-10.8) 01/07/18 06:48 RBC 3.09 Mil/cmm (3.80-5.20) L 01/07/18 06:48 Hgb 8.9 gm/dL (12-16) L 01/07/18 06:48 Hct 26.8 % (41.0-60) L 01/07/18 06:48 MCV 86.7 fl (81-100) 01/07/18 06:48 MCH 28.9 pg (27.0-31.0) 01/07/18 06:48 MCHC Differential 33.3 pg (28.0-36.0) 01/07/18 06:48 RDW 15.8 % (11.5-20.0) 01/07/18 06:48 Plt Count 155 Th/cmm (150-400) 01/07/18 06:48 MPV 11.6 fl 01/07/18 06:48 Neutrophils % 62.7 % (40.0-80.0) 01/07/18 06:48 Lymphocytes % 24.9 % (20.0-50.0) 01/07/18 06:48 Monocytes % 7.1 % (2.0-10.0) 01/07/18 06:48 Eosinophils % 4.9 % (0.0-5.0) 01/07/18 06:48 Basophils % 0.4 % (0.0-2.0) 01/07/18 06:48 Eos Smear Source URINE 01/06/18 16:56 Eos Smear Total Cells NONE SEEN (NONE SEEN) 01/06/18 16:56 Sodium 144 mEq/L (136-145) 01/07/18 06:48 Potassium 3.6 mEq/L (3.5-5.1) 01/07/18 06:48 Chloride 105 mEq/L (98-107) 01/07/18 06:48 Carbon Dioxide 33.6 mEq/L (21.0-31.0) H 01/07/18 06:48 Anion Gap 9.0 (7.0-16.0) 01/07/18 06:48 BUN 61 mg/dL (7-25) H 01/07/18 06:48 Creatinine 1.4 mg/dL (0.6-1.2) H 01/07/18 06:48 Est GFR ( Amer) TNP 01/07/18 06:48 Est GFR (Non-Af Amer) TNP 01/07/18 06:48 BUN/Creatinine Ratio 43.6 01/07/18 06:48 Glucose 167 mg/dL (70-105) H 01/07/18 06:48 POC Glucose 186 MG/DL (70 - 105) H 01/07/18 11:12 Uric Acid 7.4 mg/dL (2.3-6.6) H 01/06/18 06:20 Calcium 8.9 mg/dL (8.6-10.3) 01/07/18 06:48 Phosphorus 3.3 mg/dL (2.5-5.0) 01/06/18 06:20 Magnesium 2.4 mg/dL (1.9-2.7) 01/06/18 06:20 Total Bilirubin 0.2 mg/dL (0.3-1.0) L 01/06/18 06:20 AST 29 U/L (13-39) 01/06/18 06:20 ALT 36 U/L (7-52) 01/06/18 06:20 Alkaline Phosphatase 75 U/L (34-104) 01/06/18 06:20 Total Protein 6.1 gm/dL (6.0-8.3) 01/06/18 06:20 Albumin 3.1 gm/dL (3.7-5.3) L 01/06/18 06:20 Globulin 3.0 gm/dL 01/06/18 06:20 Albumin/Globulin Ratio 1.0 (1.0-1.8) 01/06/18 06:20 Urine Source MIDSTREAM 01/06/18 16:56 Urine Color YELLOW 01/06/18 16:56 Urine Clarity CLEAR (CLEAR) 01/06/18 16:56 Urine pH 6.0 (4.6 - 8.0) 01/06/18 16:56 Ur Specific [place] <= 1.005 (1.005-1.030) 01/06/18 16:56 Urine Protein TRACE mg/dL (NEGATIVE) 01/06/18 16:56 Urine Glucose (UA) NEGATIVE mg/dL (NEGATIVE) 01/06/18 16:56 Urine Ketones NEGATIVE mg/dL (NEGATIVE) 01/06/18 16:56 Urine Blood NEGATIVE (NEGATIVE) 01/06/18 16:56 Urine Nitrate NEGATIVE (NEGATIVE) 01/06/18 16:56 Urine Bilirubin NEGATIVE (NEGATIVE) 01/06/18 16:56 Urine Urobilinogen 0.2 E.U./dL (0.2 - 1.0) 01/06/18 16:56 Ur Leukocyte Esterase NEGATIVE (NEGATIVE) 01/06/18 16:56 Urine RBC NONE SEEN /hpf (0-5) 01/06/18 16:56 Urine WBC 0-2 /hpf (0-5) 01/06/18 16:56 Ur Epithelial Cells RARE /lpf (FEW) 01/06/18 16:56 Urine Bacteria NONE SEEN /hpf (NONE SEEN) 01/06/18 16:56 Ur Random Sodium 21 mmol/L 01/06/18 16:56 Urine Creatinine 15.0 mg/dl (28.0-217.0) L 01/06/18 16:56 - Physical Exam Vitals and I&O: Vital Signs Temp 96.4 F 01/07/18 13:34 Pulse 82 01/07/18 13:34 Resp 20 01/07/18 13:34 BP 159/81 01/07/18 13:34 Pulse Ox 100 01/07/18 13:34 Intake & Output 01/06/18 01/07/18 01/07/18 18:59 06:59 18:59 Intake Total 2640 1000 841.667 Balance 2640 1000 841.667 Weight (lbs) 48.807 kg 50.712 kg Intake: Intake, IV Amount 1000 1000 841.667 Dextrose 5% 1,000 ml @ 1000 841.667 100 mls/hr IV .Q10H ED Rx#:[id number] Dextrose 5% 1,000 ml @ 1000 125 mls/hr IV .Q8H ED Rx #:[id number] Tube Feeding 1340 Other 300 Other: # Voids 3 3 # Bowel Movements 1 2 Stool Characteristics Formed Soft Soft Brown Weight Source Bedscale Bedscale Active Medications: Current Medications Acetaminophen (Tylenol 650mg/20.3ml Suspension) 650 mg GT Q4H PRN PRN Reason: TEMP >100.5 Stop: 03/06/18 00:13 Acetaminophen (Tylenol) 650 mg PO Q4H PRN PRN Reason: Pain Or Fever above 101 Stop: 03/06/18 00:15 Allopurinol (Zyloprim) 100 mg PO DAILY [facility] Stop: 03/07/18 16:59 Last Admin: 01/07/18 08:28 Dose: 100 mg Amlodipine Besylate (Norvasc) 10 mg GT DAILY [facility] Stop: 03/06/18 08:59 Last Admin: 01/07/18 08:29 Dose: 10 mg Ascorbic Acid (Vitamin C) 500 mg GT BID [facility] Stop: 03/06/18 08:59 Last Admin: 01/07/18 08:29 Dose: 500 mg Bandage/Support Products (Hydrogel) 1 appl TP DAILY [facility] Stop: 03/06/18 08:59 Last Admin: 01/07/18 08:29 Dose: 1 appl Heparin Sodium (Porcine) (Heparin) 5,000 units SUBQ Q12HR [facility] Stop: 03/06/18 08:59 Last Admin: 01/07/18 08:28 Dose: 5,000 units Dextrose (D5w) 1,000 mls @ 100 mls/hr IV .Q10H [facility] Stop: 03/07/18 12:59 Last Admin: 01/07/18 07:20 Dose: 100 mls/hr Insulin Aspart (Novolog) 0 units SUBQ ACHS [facility]; Protocol Stop: 03/06/18 07:29 Last Admin: 01/07/18 11:16 Dose: Not Given Mirtazapine (Remeron) 15 mg GT HS [facility]; Protocol Stop: 03/06/18 20:59 Last Admin: 01/06/18 20:30 Dose: 15 mg Ondansetron HCl (Zofran) 4 mg IV Q8H PRN PRN Reason: Nausea / Vomiting Stop: 03/06/18 00:15 Pantoprazole Sodium (Protonix) 40 mg GT DAILY@1200 ED Stop: 03/06/18 11:59 Last Admin: 01/07/18 11:16 Dose: 40 mg General: No acute distress HEENT: Atraumatic, PERRLA Neck: Supple, +2 carotid pulse wo bruit Cardiovascular: Regular rate, Normal S1, Normal S2 Lungs: Clear to auscultation Abdomen: Bowel sounds, Soft Extremities: no Edema Neurological: Sensation intact Skin: no Rash Psych/Mental Status: Mood NL - Procedures Procedures: Procedures Procedure Code Date EGD PLACE GASTROSTOMY TUBE 15581 06/21/17 EXCISION OF ASCENDING COLON, ENDO, DIAGN [id number] 06/21/17 EXCISION OF CECUM, ENDO, DIAGN [id number] 06/21/17 EXCISION OF SIGMOID COLON, ENDO, DIAGN [id number] 06/21/17 EXCISION OF STOMACH, ENDO, DIAGN [id number] 06/21/17 INSERTION OF FEEDING DEVICE INTO STOMACH, PERC APPROACH [id number] 06/21/17 INSERTION OF INFUSION DEV INTO SUP VENA CAVA, PERC APPROACH 75YR05O 06/21/17 INTRODUCTION OF NUTRITIONAL INTO CENTRAL VEIN, PERC APPROACH [id number] 06/21/17 PARTIAL REMOVAL OF COLON 31159 06/21/17 RESECTION OF RIGHT LARGE INTESTINE, OPEN APPROACH 6UYT0ZM 06/21/17 RESPIRATORY VENTILATION, LESS THAN 24 CONSECUTIVE HOURS 5G0480I 06/21/17 TRANSFUSE NONAUT RED BLOOD CELLS IN PERIPH VEIN, PERC 55853X5 11/16/17 Assessment/Plan - Assessment Assessment: LEONIE Met Enceph Dehydration Contraction Alkalosis Alzh Dementia T2DM Ess Htn Gastritis - Plan Plan: Lab - Result Diagrams 01/06/18 06:20 01/06/18 06:20 Current Medications Acetaminophen (Tylenol 650mg/20.3ml Suspension) 650 mg GT Q4H PRN PRN Reason: TEMP >100.5 Stop: 03/06/18 00:13 Acetaminophen (Tylenol) 650 mg PO Q4H PRN PRN Reason: Pain Or Fever above 101 Stop: 03/06/18 00:15 Allopurinol (Zyloprim) 100 mg PO DAILY ED Stop: 03/07/18 16:59 Amlodipine Besylate (Norvasc) 10 mg GT DAILY ED Stop: 03/06/18 08:59 Last Admin: 01/06/18 08:51 Dose: 10 mg Ascorbic Acid (Vitamin C) 500 mg GT BID ED Stop: 03/06/18 08:59 Last Admin: 01/06/18 08:51 Dose: 500 mg Bandage/Support Products (Hydrogel) 1 appl TP DAILY ED Stop: 03/06/18 08:59 Last Admin: 01/06/18 09:05 Dose: 1 appl Heparin Sodium (Porcine) (Heparin) 5,000 units SUBQ Q12HR ED Stop: 03/06/18 08:59 Last Admin: 01/06/18 08:51 Dose: 5,000 units Dextrose (D5w) 1,000 mls @ 100 mls/hr IV .Q10H ED Stop: 03/07/18 12:59 Last Admin: 01/06/18 12:51 Dose: 100 mls/hr Insulin Aspart (Novolog) 0 units SUBQ ACHS ED; Protocol Stop: 03/06/18 07:29 Last Admin: 01/06/18 12:09 Dose: Not Given Mirtazapine (Remeron) 15 mg GT HS ED; Protocol Stop: 03/06/18 20:59 Last Admin: 01/05/18 21:04 Dose: 15 mg Ondansetron HCl (Zofran) 4 mg IV Q8H PRN PRN Reason: Nausea / Vomiting Stop: 03/06/18 00:15 Pantoprazole Sodium (Protonix) 40 mg GT DAILY@1200 ED Stop: 03/06/18 11:59 Last Admin: 01/06/18 12:08 Dose: 40 mg Lab - Result Diagrams 01/07/18 06:48 01/07/18 06:48 Kidney fnc improving w/ BUN/CR of 61/1.4 Na down to 144 continue hydration, H20 flushes Nutritional Asmnt/Malnutr-PDOC - Dietary Evaluation Malnutrition Findings (Please click <Entered> for more info): Nutritional Asmnt/Malnutrition Start: 01/05/18 16: 04 Text: Status: Complete Freq: Protocol: Document 01/05/18 16:07 LCHENG (Rec: 01/05/18 16:35 [email or web address]) Nutritional Asmnt/Malnutrition Patient General Information Nutritional Screening High Risk Diagnosis severe dehydration Pertinent Medical Hx/Surgical Hx DM, CHF, dementia, renal failure, anxiety, PEG/Gtube, schizophrenia Subjective Information Pt seen resting in bed at time of visit. TF was off at this time. Pt had renal U/S today per nurse. Per nurse ntoe, pt was tolerating TF, no residual noted. Current Diet Order/ Nutrition Support Glucerna 1.2 at 67ml x 20hr Pertinent Medications vit C, D5w, novolog, remeron, protonix Pertinent Labs 01/04 Na 167, Cl 123, BUN 108, Cr 1.9, glucose 125, POC 190 Nutritional Hx/Data Height 1.6 m Height (Calculated Centimeters) 160.0 Current Weight (lbs) 47.174 kg Weight (Calculated Kilograms) 47.2 Weight (Calculated Grams) 19989.6 Body Mass Index (BMI) 18.4 GI Symptoms GI Symptoms None Last BM not indicated Difficult in: None Usual diet at home diabetisource at 67ml x 20hr, providing 1680kcal, 80g protein Skin Integrity/Comment: dryless, loose, Jose 14 Estimated Nutritional Goals Calories/Kcals/Kg 23-27 based on IBW 52kg Kcals Calculated 9863-6852 Protein g/k-1.2 monitor renal labs Protein Calculated 52-62 Fluid: ml per MD Nutritional Problem 1. Problem Problem altered nutrition related labs Etiology electrolytes/fluid imbalance and hx of DM Signs/Symptoms: Na 167, Cl 123, BUN 108, Cr 1. 9, glucose 125, POC 190 Intervention/Recommendation Comments 1. Recommend decrease Glucerna to 60ml/hr x 20hr, providing 1440kcal and 72g protein to avoid overfeeding pt. 2. Monitor TF rate, tolerance, wt, skin integrity and labs 3. F/U as high risk in 2-3 days, 01/07-01/08 Expected Outcomes/Goals Expected Outcomes/Goals 1. Pt to meet at least 75% of nutritional needs via nutrition support with tolerance 2. Wt stability, skin to remain intact, labs to approach WNL.
[2018-01-08] MEDS: Dextrose 5% 1,000 ML IV SCH (05:39)
[2018-01-08] MEDS: INSULIN ASPART, RECOMBINANT 100 UNITS/ML SUBQ SCH ×4 (06:32→21:16)
[2018-01-08 06:38] LABS: % BASOPHILS 0.4 % (0.0-2.0); % EOSINOPHILS 6.3 % (0.0-5.0); % LYMPHOCYTES 35.5 % (20.0-50.0); % NEUTROPHILS 49.8 % (40.0-80.0); EOSINOPHILE ABSOLUTE 0.3 Th/cmm (0.1-0.4); HEMATOCRIT 25.4 % (41.0-60); HEMOGLOBIN 8.2 gm/dL (12-16); LYMPHOCYTE ABSOLUTE 1.9 Th/cmm (1.5-3.0); MEAN CORPUSCULAR HEMOGLOBIN 28.3 pg (27.0-31.0); MEAN CORPUSCULAR HGB CONC 32.2 pg (28.0-36.0); MEAN PLATELET VOLUME 10.2 fl; MONOCYTE ABSOLUTE 0.4 Th/cmm (0.3-1.0); NEUTROPHILE ABSOLUTE 2.8 Th/cmm (1.8-8.0); PLATELET COUNT 126 Th/cmm (150-400); RED BLOOD COUNT 2.89 Mil/cmm (3.80-5.20); RED CELL DISTRIBUTION WIDTH 15.7 % (11.5-20.0)
[2018-01-08 06:44] LABS: WHITE BLOOD COUNT 5.4 Th/cmm (4.8-10.8)
[2018-01-08 06:56] LABS: ANION GAP 6.7 (7.0-16.0); BUN - UREA NITROGEN 54 mg/dL (7-25); CALCIUM SERUM 8.8 mg/dL (8.6-10.3); CARBON DIOXIDE 34.2 mEq/L (21.0-31.0); CHLORIDE 104 mEq/L (98-107); CREATININE - SERUM 1.4 mg/dL (0.6-1.2); GLUCOSE 174 mg/dL (70-105); POTASSIUM SERUM 3.9 mEq/L (3.5-5.1); SODIUM SERUM 141 mEq/L (136-145)
[2018-01-08] MEDS: Hydrogel 3 oz Tube TP SCH (08:49)
[2018-01-08] MEDS: Multivitamin w/ Minerals Tab GT SCH (08:49)
[2018-01-08] MEDS: Pantoprazole 40 mg/Packet GT SCH (13:00)
--- NOTE | 2018-01-08 13:15 | General Progress Note ---
Subjective - Review of Systems Service Date: 01/08/18 Subjective: sleeping, comfortable Objective - Results Result Diagrams: 01/08/18 06:14 01/08/18 06:14 Recent Labs: Laboratory Last Values WBC 5.4 Th/cmm (4.8-10.8) D 01/08/18 06:14 RBC 2.89 Mil/cmm (3.80-5.20) L 01/08/18 06:14 Hgb 8.2 gm/dL (12-16) L 01/08/18 06:14 Hct 25.4 % (41.0-60) L 01/08/18 06:14 MCV 88.0 fl (81-100) 01/08/18 06:14 MCH 28.3 pg (27.0-31.0) 01/08/18 06:14 MCHC Differential 32.2 pg (28.0-36.0) 01/08/18 06:14 RDW 15.7 % (11.5-20.0) 01/08/18 06:14 Plt Count 126 Th/cmm (150-400) L 01/08/18 06:14 MPV 10.2 fl 01/08/18 06:14 Neutrophils % 49.8 % (40.0-80.0) 01/08/18 06:14 Lymphocytes % 35.5 % (20.0-50.0) 01/08/18 06:14 Monocytes % 8.0 % (2.0-10.0) 01/08/18 06:14 Eosinophils % 6.3 % (0.0-5.0) H 01/08/18 06:14 Basophils % 0.4 % (0.0-2.0) 01/08/18 06:14 Eos Smear Source URINE 01/06/18 16:56 Eos Smear Total Cells NONE SEEN (NONE SEEN) 01/06/18 16:56 Sodium 141 mEq/L (136-145) 01/08/18 06:14 Potassium 3.9 mEq/L (3.5-5.1) 01/08/18 06:14 Chloride 104 mEq/L (98-107) 01/08/18 06:14 Carbon Dioxide 34.2 mEq/L (21.0-31.0) H 01/08/18 06:14 Anion Gap 6.7 (7.0-16.0) L 01/08/18 06:14 BUN 54 mg/dL (7-25) H 01/08/18 06:14 Creatinine 1.4 mg/dL (0.6-1.2) H 01/08/18 06:14 Est GFR ( Amer) TNP 01/08/18 06:14 Est GFR (Non-Af Amer) TNP 01/08/18 06:14 BUN/Creatinine Ratio 38.6 01/08/18 06:14 Glucose 174 mg/dL (70-105) H 01/08/18 06:14 POC Glucose 208 MG/DL (70 - 105) H 01/08/18 11:37 Uric Acid 7.4 mg/dL (2.3-6.6) H 01/06/18 06:20 Calcium 8.8 mg/dL (8.6-10.3) 01/08/18 06:14 Phosphorus 3.3 mg/dL (2.5-5.0) 01/06/18 06:20 Magnesium 2.4 mg/dL (1.9-2.7) 01/06/18 06:20 Total Bilirubin 0.2 mg/dL (0.3-1.0) L 01/06/18 06:20 AST 29 U/L (13-39) 01/06/18 06:20 ALT 36 U/L (7-52) 01/06/18 06:20 Alkaline Phosphatase 75 U/L (34-104) 01/06/18 06:20 Total Protein 6.1 gm/dL (6.0-8.3) 01/06/18 06:20 Albumin 3.1 gm/dL (3.7-5.3) L 01/06/18 06:20 Globulin 3.0 gm/dL 01/06/18 06:20 Albumin/Globulin Ratio 1.0 (1.0-1.8) 01/06/18 06:20 Urine Source MIDSTREAM 01/06/18 16:56 Urine Color YELLOW 01/06/18 16:56 Urine Clarity CLEAR (CLEAR) 01/06/18 16:56 Urine pH 6.0 (4.6 - 8.0) 01/06/18 16:56 Ur Specific [place] <= 1.005 (1.005-1.030) 08/10/18 16:56 Urine Protein TRACE mg/dL (NEGATIVE) 01/06/18 16:56 Urine Glucose (UA) NEGATIVE mg/dL (NEGATIVE) 01/06/18 16:56 Urine Ketones NEGATIVE mg/dL (NEGATIVE) 01/06/18 16:56 Urine Blood NEGATIVE (NEGATIVE) 01/06/18 16:56 Urine Nitrate NEGATIVE (NEGATIVE) 01/06/18 16:56 Urine Bilirubin NEGATIVE (NEGATIVE) 01/06/18 16:56 Urine Urobilinogen 0.2 E.U./dL (0.2 - 1.0) 01/06/18 16:56 Ur Leukocyte Esterase NEGATIVE (NEGATIVE) 01/06/18 16:56 Urine RBC NONE SEEN /hpf (0-5) 01/06/18 16:56 Urine WBC 0-2 /hpf (0-5) 01/06/18 16:56 Ur Epithelial Cells RARE /lpf (FEW) 01/06/18 16:56 Urine Bacteria NONE SEEN /hpf (NONE SEEN) 01/06/18 16:56 Urine Osmolality 174 mOsmol/kg 01/06/18 16:56 Ur Random Sodium 21 mmol/L 01/06/18 16:56 Urine Creatinine 15.0 mg/dl (28.0-217.0) L 01/06/18 16:56 - Physical Exam Vitals and I&O: Vital Signs Temp 97.3 F 01/08/18 12:54 Pulse 71 01/08/18 12:54 Resp 18 01/08/18 12:54 BP 123/89 01/08/18 12:54 Pulse Ox 96 01/08/18 12:54 Intake & Output 01/07/18 01/08/18 01/08/18 18:59 06:59 18:59 Intake Total 3612.578 9273 Balance 1680.264 5451 Weight (lbs) 50.349 kg 50.53 kg Intake: Intake, IV Amount 7414.594 9352 Dextrose 5% 1,000 ml @ 6839.706 7571 100 mls/hr IV .Q10H [facility] Rx#:[id number] Oral 0 0 Tube Feeding 802 Other 400 Other: # Voids 4 2 # Bowel Movements 1 1 Stool Characteristics Soft Soft Soft Weight Source Bedscale Bedscale Active Medications: Current Medications Acetaminophen (Tylenol 650mg/20.3ml Suspension) 650 mg GT Q4H PRN PRN Reason: TEMP >100.5 Stop: 03/06/18 00:13 Acetaminophen (Tylenol) 650 mg PO Q4H PRN PRN Reason: Pain Or Fever above 101 Stop: 03/06/18 00:15 Allopurinol (Zyloprim) 100 mg PO DAILY [facility] Stop: 03/07/18 16:59 Last Admin: 01/08/18 08:49 Dose: 100 mg Amlodipine Besylate (Norvasc) 10 mg GT DAILY [facility] Stop: 03/06/18 08:59 Last Admin: 01/08/18 08:49 Dose: 10 mg Ascorbic Acid (Vitamin C) 500 mg GT BID [facility] Stop: 03/06/18 08:59 Last Admin: 01/08/18 08:49 Dose: 500 mg Bandage/Support Products (Hydrogel) 1 appl TP DAILY [facility] Stop: 03/06/18 08:59 Last Admin: 01/08/18 08:49 Dose: 1 appl Heparin Sodium (Porcine) (Heparin) 5,000 units SUBQ Q12HR [facility] Stop: 03/06/18 08:59 Last Admin: 01/08/18 08:49 Dose: 5,000 units Dextrose (D5w) 1,000 mls @ 100 mls/hr IV .Q10H [facility] Stop: 03/07/18 12:59 Last Admin: 01/08/18 05:39 Dose: 100 mls/hr Insulin Aspart (Novolog) 0 units SUBQ ACHS [facility]; Protocol Stop: 03/06/18 07:29 Last Admin: 01/08/18 11:38 Dose: Not Given Mirtazapine (Remeron) 15 mg GT HS [facility]; Protocol Stop: 03/06/18 20:59 Last Admin: 01/07/18 21:01 Dose: 15 mg Ondansetron HCl (Zofran) 4 mg IV Q8H PRN PRN Reason: Nausea / Vomiting Stop: 03/06/18 00:15 Pantoprazole Sodium (Protonix) 40 mg GT DAILY@1200 [facility] Stop: 03/06/18 11:59 Last Admin: 01/08/18 13:00 Dose: 40 mg General: No acute distress HEENT: Atraumatic, PERRLA Neck: Supple, +2 carotid pulse wo bruit Cardiovascular: Regular rate, Normal S1, Normal S2 Lungs: Clear to auscultation Abdomen: Bowel sounds, Soft Extremities: no Edema Neurological: Sensation intact Skin: no Rash Psych/Mental Status: Mood NL - Procedures Procedures: Procedures Procedure Code Date EGD PLACE GASTROSTOMY TUBE 42643 06/21/17 EXCISION OF ASCENDING COLON, ENDO, DIAGN [id number] 06/21/17 EXCISION OF CECUM, ENDO, DIAGN [id number] 06/21/17 EXCISION OF SIGMOID COLON, ENDO, DIAGN 8TBX6PG 06/21/17 EXCISION OF STOMACH, ENDO, DIAGN 6HD29JJ 06/21/17 INSERTION OF FEEDING DEVICE INTO STOMACH, PERC APPROACH [id number] 06/21/17 INSERTION OF INFUSION DEV INTO SUP VENA CAVA, PERC APPROACH 84LL38Z 06/21/17 INTRODUCTION OF NUTRITIONAL INTO CENTRAL VEIN, PERC APPROACH 9Z3504U 06/21/17 PARTIAL REMOVAL OF COLON 47809 06/21/17 RESECTION OF RIGHT LARGE INTESTINE, OPEN APPROACH 9VLU3XI 06/21/17 RESPIRATORY VENTILATION, LESS THAN 24 CONSECUTIVE HOURS 3E1730L 06/21/17 TRANSFUSE NONAUT RED BLOOD CELLS IN PERIPH VEIN, PERC 87953U9 11/16/17 Assessment/Plan - Assessment Assessment: LEONIE Met Enceph Dehydration Contraction Alkalosis Alzh Dementia T2DM Ess Htn Gastritis - Plan Plan: Lab - Result Diagrams 01/06/18 06:20 01/06/18 06:20 Current Medications Acetaminophen (Tylenol 650mg/20.3ml Suspension) 650 mg GT Q4H PRN PRN Reason: TEMP >100.5 Stop: 03/06/18 00:13 Acetaminophen (Tylenol) 650 mg PO Q4H PRN PRN Reason: Pain Or Fever above 101 Stop: 03/06/18 00:15 Allopurinol (Zyloprim) 100 mg PO DAILY ED Stop: 03/07/18 16:59 Amlodipine Besylate (Norvasc) 10 mg GT DAILY ED Stop: 03/06/18 08:59 Last Admin: 01/06/18 08:51 Dose: 10 mg Ascorbic Acid (Vitamin C) 500 mg GT BID ED Stop: 03/06/18 08:59 Last Admin: 01/06/18 08:51 Dose: 500 mg Bandage/Support Products (Hydrogel) 1 appl TP DAILY ED Stop: 03/06/18 08:59 Last Admin: 01/06/18 09:05 Dose: 1 appl Heparin Sodium (Porcine) (Heparin) 5,000 units SUBQ Q12HR ED Stop: 03/06/18 08:59 Last Admin: 01/06/18 08:51 Dose: 5,000 units Dextrose (D5w) 1,000 mls @ 100 mls/hr IV .Q10H ED Stop: 03/07/18 12:59 Last Admin: 01/06/18 12:51 Dose: 100 mls/hr Insulin Aspart (Novolog) 0 units SUBQ ACHS ED; Protocol Stop: 03/06/18 07:29 Last Admin: 01/06/18 12:09 Dose: Not Given Mirtazapine (Remeron) 15 mg GT HS ED; Protocol Stop: 03/06/18 20:59 Last Admin: 01/05/18 21:04 Dose: 15 mg Ondansetron HCl (Zofran) 4 mg IV Q8H PRN PRN Reason: Nausea / Vomiting Stop: 03/06/18 00:15 Pantoprazole Sodium (Protonix) 40 mg GT DAILY@1200 ED Stop: 03/06/18 11:59 Last Admin: 01/06/18 12:08 Dose: 40 mg Lab - Result Diagrams 01/08/18 06:14 01/08/18 06:14 Kidney fnc improving w/ BUN/CR of 54/1.4 Na down to 141 continue hydration, H20 flushes f/u electrolytes, cbc Nutritional Asmnt/Malnutr-PDOC - Dietary Evaluation Malnutrition Findings (Please click <Entered> for more info): Nutritional Asmnt/Malnutrition Start: 01/05/18 16: 04 Text: Status: Complete Freq: Protocol: Document 01/05/18 16:07 LCHENG (Rec: 01/05/18 16:35 [email or web address] [email or web address]) Nutritional Asmnt/Malnutrition Patient General Information Nutritional Screening High Risk Diagnosis severe dehydration Pertinent Medical Hx/Surgical Hx DM, CHF, dementia, renal failure, anxiety, PEG/Gtube, schizophrenia Subjective Information Pt seen resting in bed at time of visit. TF was off at this time. Pt had renal U/S today per nurse. Per nurse ntoe, pt was tolerating TF, no residual noted. Current Diet Order/ Nutrition Support Glucerna 1.2 at 67ml x 20hr Pertinent Medications vit C, D5w, novolog, remeron, protonix Pertinent Labs 01/04 Na 167, Cl 123, BUN 108, Cr 1.9, glucose 125, POC 190 Nutritional Hx/Data Height 1.6 m Height (Calculated Centimeters) 160.0 Current Weight (lbs) 47.174 kg Weight (Calculated Kilograms) 47.2 Weight (Calculated Grams) 37234.6 Body Mass Index (BMI) 18.4 GI Symptoms GI Symptoms None Last BM not indicated Difficult in: None Usual diet at home diabetisource at 67ml x 20hr, providing 1680kcal, 80g protein Skin Integrity/Comment: dryless, loose, Jose 14 Estimated Nutritional Goals Calories/Kcals/Kg 23-27 based on IBW 52kg Kcals Calculated 5667-9345 Protein g/k-1.2 monitor renal labs Protein Calculated 52-62 Fluid: ml per MD Nutritional Problem 1. Problem Problem altered nutrition related labs Etiology electrolytes/fluid imbalance and hx of DM Signs/Symptoms: Na 167, Cl 123, BUN 108, Cr 1. 9, glucose 125, POC 190 Intervention/Recommendation Comments 1. Recommend decrease Glucerna to 60ml/hr x 20hr, providing 1440kcal and 72g protein to avoid overfeeding pt. 2. Monitor TF rate, tolerance, wt, skin integrity and labs 3. F/U as high risk in 2-3 days, 01/07-01/08 Expected Outcomes/Goals Expected Outcomes/Goals 1. Pt to meet at least 75% of nutritional needs via nutrition support with tolerance 2. Wt stability, skin to remain intact, labs to approach WNL.
--- NOTE | 2018-01-08 14:43 | Internal Medicine Prog Note ---
Internal Medicine Subjective - Subjective Service Date: 01/08/18 Patient is:: awake, non-interactive Per staff patient has:: tolerating meds Internal Medicine Objective - Results Result Diagrams: 01/08/18 06:14 01/08/18 06:14 Recent Labs: Laboratory Last Values WBC 5.4 Th/cmm (4.8-10.8) D 01/08/18 06:14 RBC 2.89 Mil/cmm (3.80-5.20) L 01/08/18 06:14 Hgb 8.2 gm/dL (12-16) L 01/08/18 06:14 Hct 25.4 % (41.0-60) L 01/08/18 06:14 MCV 88.0 fl (81-100) 01/08/18 06:14 MCH 28.3 pg (27.0-31.0) 01/08/18 06:14 MCHC Differential 32.2 pg (28.0-36.0) 01/08/18 06:14 RDW 15.7 % (11.5-20.0) 01/08/18 06:14 Plt Count 126 Th/cmm (150-400) L 01/08/18 06:14 MPV 10.2 fl 01/08/18 06:14 Neutrophils % 49.8 % (40.0-80.0) 01/08/18 06:14 Lymphocytes % 35.5 % (20.0-50.0) 01/08/18 06:14 Monocytes % 8.0 % (2.0-10.0) 01/08/18 06:14 Eosinophils % 6.3 % (0.0-5.0) H 01/08/18 06:14 Basophils % 0.4 % (0.0-2.0) 01/08/18 06:14 Eos Smear Source URINE 01/06/18 16:56 Eos Smear Total Cells NONE SEEN (NONE SEEN) 01/06/18 16:56 Sodium 141 mEq/L (136-145) 01/08/18 06:14 Potassium 3.9 mEq/L (3.5-5.1) 01/08/18 06:14 Chloride 104 mEq/L (98-107) 01/08/18 06:14 Carbon Dioxide 34.2 mEq/L (21.0-31.0) H 01/08/18 06:14 Anion Gap 6.7 (7.0-16.0) L 01/08/18 06:14 BUN 54 mg/dL (7-25) H 01/08/18 06:14 Creatinine 1.4 mg/dL (0.6-1.2) H 01/08/18 06:14 Est GFR ( Amer) TNP 01/08/18 06:14 Est GFR (Non-Af Amer) TNP 01/08/18 06:14 BUN/Creatinine Ratio 38.6 01/08/18 06:14 Glucose 174 mg/dL (70-105) H 01/08/18 06:14 POC Glucose 208 MG/DL (70 - 105) H 01/08/18 11:37 Uric Acid 7.4 mg/dL (2.3-6.6) H 01/06/18 06:20 Calcium 8.8 mg/dL (8.6-10.3) 01/08/18 06:14 Phosphorus 3.3 mg/dL (2.5-5.0) 01/06/18 06:20 Magnesium 2.4 mg/dL (1.9-2.7) 01/06/18 06:20 Total Bilirubin 0.2 mg/dL (0.3-1.0) L 01/06/18 06:20 AST 29 U/L (13-39) 01/06/18 06:20 ALT 36 U/L (7-52) 01/06/18 06:20 Alkaline Phosphatase 75 U/L (34-104) 01/06/18 06:20 Total Protein 6.1 gm/dL (6.0-8.3) 01/06/18 06:20 Albumin 3.1 gm/dL (3.7-5.3) L 01/06/18 06:20 Globulin 3.0 gm/dL 01/06/18 06:20 Albumin/Globulin Ratio 1.0 (1.0-1.8) 01/06/18 06:20 Urine Source MIDSTREAM 01/06/18 16:56 Urine Color YELLOW 01/06/18 16:56 Urine Clarity CLEAR (CLEAR) 01/06/18 16:56 Urine pH 6.0 (4.6 - 8.0) 01/06/18 16:56 Ur Specific [place] <= 1.005 (1.005-1.030) 01/06/18 16:56 Urine Protein TRACE mg/dL (NEGATIVE) 01/06/18 16:56 Urine Glucose (UA) NEGATIVE mg/dL (NEGATIVE) 01/06/18 16:56 Urine Ketones NEGATIVE mg/dL (NEGATIVE) 01/06/18 16:56 Urine Blood NEGATIVE (NEGATIVE) 01/06/18 16:56 Urine Nitrate NEGATIVE (NEGATIVE) 01/06/18 16:56 Urine Bilirubin NEGATIVE (NEGATIVE) 01/06/18 16:56 Urine Urobilinogen 0.2 E.U./dL (0.2 - 1.0) 01/06/18 16:56 Ur Leukocyte Esterase NEGATIVE (NEGATIVE) 01/06/18 16:56 Urine RBC NONE SEEN /hpf (0-5) 01/06/18 16:56 Urine WBC 0-2 /hpf (0-5) 01/06/18 16:56 Ur Epithelial Cells RARE /lpf (FEW) 01/06/18 16:56 Urine Bacteria NONE SEEN /hpf (NONE SEEN) 01/06/18 16:56 Urine Osmolality 174 mOsmol/kg 01/06/18 16:56 Ur Random Sodium 21 mmol/L 01/06/18 16:56 Urine Creatinine 15.0 mg/dl (28.0-217.0) L 01/06/18 16:56 - Physical Exam Vitals and I&O: Vital Signs Temp 97.3 F 01/08/18 12:54 Pulse 71 01/08/18 12:54 Resp 18 01/08/18 12:54 BP 123/89 01/08/18 12:54 Pulse Ox 96 01/08/18 12:54 Intake & Output 01/07/18 01/08/18 01/08/18 18:59 06:59 18:59 Intake Total 8184.110 2226 Balance 7206.164 1286 Weight (lbs) 111 lb 111 lb 6.4 oz Intake: Intake, IV Amount 5938.591 9247 Dextrose 5% 1,000 ml @ 1824.167 2764 100 mls/hr IV .Q10H ED Rx#:[id number] Oral 0 0 Tube Feeding 802 Other 400 Other: # Voids 4 2 # Bowel Movements 1 1 Stool Characteristics Soft Soft Soft Weight Source Bedscale Bedscale Active Medications: Current Medications Acetaminophen (Tylenol 650mg/20.3ml Suspension) 650 mg GT Q4H PRN PRN Reason: TEMP >100.5 Stop: 03/06/18 00:13 Acetaminophen (Tylenol) 650 mg PO Q4H PRN PRN Reason: Pain Or Fever above 101 Stop: 03/06/18 00:15 Allopurinol (Zyloprim) 100 mg PO DAILY [facility] Stop: 03/07/18 16:59 Last Admin: 01/08/18 08:49 Dose: 100 mg Amlodipine Besylate (Norvasc) 10 mg GT DAILY [facility] Stop: 03/06/18 08:59 Last Admin: 01/08/18 08:49 Dose: 10 mg Ascorbic Acid (Vitamin C) 500 mg GT BID [facility] Stop: 03/06/18 08:59 Last Admin: 01/08/18 08:49 Dose: 500 mg Bandage/Support Products (Hydrogel) 1 appl TP DAILY [facility] Stop: 03/06/18 08:59 Last Admin: 01/08/18 08:49 Dose: 1 appl Heparin Sodium (Porcine) (Heparin) 5,000 units SUBQ Q12HR [facility] Stop: 03/06/18 08:59 Last Admin: 01/08/18 08:49 Dose: 5,000 units Dextrose (D5w) 1,000 mls @ 100 mls/hr IV .Q10H [facility] Stop: 03/07/18 12:59 Last Admin: 01/08/18 05:39 Dose: 100 mls/hr Insulin Aspart (Novolog) 0 units SUBQ ACHS [facility]; Protocol Stop: 03/06/18 07:29 Last Admin: 01/08/18 11:38 Dose: Not Given Mirtazapine (Remeron) 15 mg GT HS [facility]; Protocol Stop: 03/06/18 20:59 Last Admin: 01/07/18 21:01 Dose: 15 mg Ondansetron HCl (Zofran) 4 mg IV Q8H PRN PRN Reason: Nausea / Vomiting Stop: 03/06/18 00:15 Pantoprazole Sodium (Protonix) 40 mg GT DAILY@1200 ED Stop: 03/06/18 11:59 Last Admin: 01/08/18 13:00 Dose: 40 mg General: weak HEENT: NC/AT, PERRLA Neck: Supple Lungs: CTAB Cardiovascular: RRR, Normal S1, Normal S2, without murmur Abdomen: soft, non-tender, non-distended, positive bowel sound Extremities: excoriation Neurological: unable to follow command - Procedures Procedures: Procedures Procedure Code Date EGD PLACE GASTROSTOMY TUBE 17958 06/21/17 EXCISION OF ASCENDING COLON, ENDO, DIAGN [id number] 06/21/17 EXCISION OF CECUM, ENDO, DIAGN [id number] 06/21/17 EXCISION OF SIGMOID COLON, ENDO, DIAGN [id number] 06/21/17 EXCISION OF STOMACH, ENDO, DIAGN [id number] 06/21/17 INSERTION OF FEEDING DEVICE INTO STOMACH, PERC APPROACH [id number] 06/21/17 INSERTION OF INFUSION DEV INTO SUP VENA CAVA, PERC APPROACH [id number] 06/21/17 INTRODUCTION OF NUTRITIONAL INTO CENTRAL VEIN, PERC APPROACH [id number] 06/21/17 PARTIAL REMOVAL OF COLON 69021 06/21/17 RESECTION OF RIGHT LARGE INTESTINE, OPEN APPROACH [id number] 06/21/17 RESPIRATORY VENTILATION, LESS THAN 24 CONSECUTIVE HOURS [id number] 06/21/17 TRANSFUSE NONAUT RED BLOOD CELLS IN PERIPH VEIN, PERC 95847N2 11/16/17 Internal Medicine Assmt/Plan - Assessment Assessment: Severe dehydration, history of acute renal failure, diabetes, congestive heart failure, dementia and anxiety. - Plan Plan: continue ivf for hydration follow up labs in am continue current plan of care Nutritional Asmnt/Malnutr-PDOC - Dietary Evaluation Malnutrition Findings (Please click <Entered> for more info): Nutritional Asmnt/Malnutrition Start: 01/05/18 16: 04 Text: Status: Complete Freq: Protocol: Document 01/05/18 16:07 [email or web address] (Rec: 01/05/18 16:35 JENYG [email or web address]) Nutritional Asmnt/Malnutrition Patient General Information Nutritional Screening High Risk Diagnosis severe dehydration Pertinent Medical Hx/Surgical Hx DM, CHF, dementia, renal failure, anxiety, PEG/Gtube, schizophrenia Subjective Information Pt seen resting in bed at time of visit. TF was off at this time. Pt had renal U/S today per nurse. Per nurse ntoe, pt was tolerating TF, no residual noted. Current Diet Order/ Nutrition Support Glucerna 1.2 at 67ml x 20hr Pertinent Medications vit C, D5w, novolog, remeron, protonix Pertinent Labs 01/04 Na 167, Cl 123, BUN 108, Cr 1.9, glucose 125, POC 190 Nutritional Hx/Data Height 5 ft 3 in Height (Calculated Centimeters) 160.0 Current Weight (lbs) 104 lb Weight (Calculated Kilograms) 47.2 Weight (Calculated Grams) 57402.6 Body Mass Index (BMI) 18.4 GI Symptoms GI Symptoms None Last BM not indicated Difficult in: None Usual diet at home diabetisource at 67ml x 20hr, providing 1680kcal, 80g protein Skin Integrity/Comment: dryless, loose, Jose 14 Estimated Nutritional Goals Calories/Kcals/Kg 23-27 based on IBW 52kg Kcals Calculated 6046-7081 Protein g/k-1.2 monitor renal labs Protein Calculated 52-62 Fluid: ml per MD Nutritional Problem 1. Problem Problem altered nutrition related labs Etiology electrolytes/fluid imbalance and hx of DM Signs/Symptoms: Na 167, Cl 123, BUN 108, Cr 1. 9, glucose 125, POC 190 Intervention/Recommendation Comments 1. Recommend decrease Glucerna to 60ml/hr x 20hr, providing 1440kcal and 72g protein to avoid overfeeding pt. 2. Monitor TF rate, tolerance, wt, skin integrity and labs 3. F/U as high risk in 2-3 days, 01/07-01/08 Expected Outcomes/Goals Expected Outcomes/Goals 1. Pt to meet at least 75% of nutritional needs via nutrition support with tolerance 2. Wt stability, skin to remain intact, labs to approach WNL.
[2018-01-09 05:24] LABS: ANION GAP 7.6 (7.0-16.0); BUN - UREA NITROGEN 49 mg/dL (7-25); CALCIUM SERUM 8.8 mg/dL (8.6-10.3); CARBON DIOXIDE 33.5 mEq/L (21.0-31.0); CHLORIDE 98 mEq/L (98-107); CREATININE - SERUM 1.4 mg/dL (0.6-1.2); GLUCOSE 190 mg/dL (70-105); POTASSIUM SERUM 4.1 mEq/L (3.5-5.1); SODIUM SERUM 135 mEq/L (136-145)
[2018-01-09] MEDS: INSULIN ASPART, RECOMBINANT 100 UNITS/ML SUBQ SCH (06:41)
[2018-01-09 06:43] LABS: HEMATOCRIT 24.4 % (41.0-60); HEMOGLOBIN 8.7 gm/dL (12-16); MEAN CELL VOLUME 87.1 fl (81-100); MEAN CORPUSCULAR HEMOGLOBIN 30.9 pg (27.0-31.0); MEAN CORPUSCULAR HGB CONC 35.5 pg (28.0-36.0); MEAN PLATELET VOLUME 10.9 fl; RED CELL DISTRIBUTION WIDTH 15.5 % (11.5-20.0)
[2018-01-09 06:59] LABS: PLATELET COUNT 161 Th/cmm (150-400)
[2018-01-09 07:30] LABS: BAND NEUTROPHILE 2 % (0-10); BASOPHIL 0 % (0-3); EOSINOPHIL 2 % (0-5); LYMPHOCYTE 32 % (20-50); MONOCYTE 3 % (2-10); NEUTROPHILS 61 % (40-80)
[2018-01-09 07:33] LABS: PLATELET MORPHOLOGY GIANT PLATELETS SEEN (NORMAL)
[2018-01-09] MEDS: Multivitamin w/ Minerals Tab GT SCH (09:00)
[2018-01-09] MEDS: Hydrogel 3 oz Tube TP SCH (09:01)
--- NOTE | 2018-01-09 13:13 | Internal Medicine Prog Note ---
Internal Medicine Subjective - Subjective Service Date: 01/09/18 ([id number] dc summary) Patient is:: awake, non-interactive Per staff patient has:: tolerating meds Internal Medicine Objective - Results Result Diagrams: 01/09/18 04:25 01/09/18 04:25 Recent Labs: Laboratory Last Values WBC 7.0 Th/cmm (4.8-10.8) D 01/09/18 04:25 RBC 2.80 Mil/cmm (3.80-5.20) L 01/09/18 04:25 Hgb 8.7 gm/dL (12-16) L 01/09/18 04:25 Hct 24.4 % (41.0-60) L 01/09/18 04:25 MCV 87.1 fl (81-100) 01/09/18 04:25 MCH 30.9 pg (27.0-31.0) 01/09/18 04:25 MCHC Differential 35.5 pg (28.0-36.0) 01/09/18 04:25 RDW 15.5 % (11.5-20.0) 01/09/18 04:25 Plt Count 161 Th/cmm (150-400) D 01/09/18 04:25 MPV 10.9 fl 01/09/18 04:25 Add Manual Diff YES 01/09/18 04:25 Neutrophils % 49.8 % (40.0-80.0) 01/08/18 06:14 Band Neutrophils % 2 % (0-10) 01/09/18 04:25 Lymphocytes % 35.5 % (20.0-50.0) 01/08/18 06:14 Monocytes % 8.0 % (2.0-10.0) 01/08/18 06:14 Eosinophils % 6.3 % (0.0-5.0) H 01/08/18 06:14 Basophils % 0.4 % (0.0-2.0) 01/08/18 06:14 Neutrophils (Manual) 61 % (40-80) 01/09/18 04:25 Lymphocytes 32 % (20-50) 01/09/18 04:25 Monocytes 3 % (2-10) 01/09/18 04:25 Eosinophils 2 % (0-5) 01/09/18 04:25 Basophils 0 % (0-3) 01/09/18 04:25 Atypical Lymphocytes % 01/09/18 04:25 Platelet Morphology GIANT PLATELETS SEEN (NORMAL) 01/09/18 04:25 Eos Smear Source URINE 01/06/18 16:56 Eos Smear Total Cells NONE SEEN (NONE SEEN) 01/06/18 16:56 Sodium 135 mEq/L (136-145) L 01/09/18 04:25 Potassium 4.1 mEq/L (3.5-5.1) 01/09/18 04:25 Chloride 98 mEq/L (98-107) 01/09/18 04:25 Carbon Dioxide 33.5 mEq/L (21.0-31.0) H 01/09/18 04:25 Anion Gap 7.6 (7.0-16.0) 01/09/18 04:25 BUN 49 mg/dL (7-25) H 01/09/18 04:25 Creatinine 1.4 mg/dL (0.6-1.2) H 01/09/18 04:25 Est GFR ( Amer) TNP 01/09/18 04:25 Est GFR (Non-Af Amer) TNP 01/09/18 04:25 BUN/Creatinine Ratio 35.0 01/09/18 04:25 Glucose 190 mg/dL (70-105) H 01/09/18 04:25 POC Glucose 155 MG/DL (70 - 105) H 01/09/18 11:47 Uric Acid 7.4 mg/dL (2.3-6.6) H 01/06/18 06:20 Calcium 8.8 mg/dL (8.6-10.3) 01/09/18 04:25 Phosphorus 3.3 mg/dL (2.5-5.0) 01/06/18 06:20 Magnesium 2.4 mg/dL (1.9-2.7) 01/06/18 06:20 Total Bilirubin 0.2 mg/dL (0.3-1.0) L 01/06/18 06:20 AST 29 U/L (13-39) 01/06/18 06:20 ALT 36 U/L (7-52) 01/06/18 06:20 Alkaline Phosphatase 75 U/L (34-104) 01/06/18 06:20 Total Protein 6.1 gm/dL (6.0-8.3) 01/06/18 06:20 Albumin 3.1 gm/dL (3.7-5.3) L 01/06/18 06:20 Globulin 3.0 gm/dL 01/06/18 06:20 Albumin/Globulin Ratio 1.0 (1.0-1.8) 01/06/18 06:20 Urine Source MIDSTREAM 01/06/18 16:56 Urine Color YELLOW 01/06/18 16:56 Urine Clarity CLEAR (CLEAR) 01/06/18 16:56 Urine pH 6.0 (4.6 - 8.0) 01/06/18 16:56 Ur Specific [place] <= 1.005 (1.005-1.030) 01/06/18 16:56 Urine Protein TRACE mg/dL (NEGATIVE) 01/06/18 16:56 Urine Glucose (UA) NEGATIVE mg/dL (NEGATIVE) 01/06/18 16:56 Urine Ketones NEGATIVE mg/dL (NEGATIVE) 01/06/18 16:56 Urine Blood NEGATIVE (NEGATIVE) 01/06/18 16:56 Urine Nitrate NEGATIVE (NEGATIVE) 01/06/18 16:56 Urine Bilirubin NEGATIVE (NEGATIVE) 01/06/18 16:56 Urine Urobilinogen 0.2 E.U./dL (0.2 - 1.0) 01/06/18 16:56 Ur Leukocyte Esterase NEGATIVE (NEGATIVE) 01/06/18 16:56 Urine RBC NONE SEEN /hpf (0-5) 01/06/18 16:56 Urine WBC 0-2 /hpf (0-5) 01/06/18 16:56 Ur Epithelial Cells RARE /lpf (FEW) 01/06/18 16:56 Urine Bacteria NONE SEEN /hpf (NONE SEEN) 01/06/18 16:56 Urine Osmolality 174 mOsmol/kg 01/06/18 16:56 Ur Random Sodium 21 mmol/L 01/06/18 16:56 Urine Creatinine 15.0 mg/dl (28.0-217.0) L 01/06/18 16:56 - Physical Exam Vitals and I&O: Vital Signs Temp 96.6 F 01/09/18 08:17 Pulse 75 01/09/18 09:00 Resp 20 01/09/18 09:00 BP 168/75 01/09/18 09:00 Pulse Ox 95 01/09/18 08:17 Intake & Output 01/08/18 01/09/18 01/09/18 18:59 06:59 18:59 Intake Total 990 600 Balance 990 600 Weight (lbs) 111 lb 6.4 oz 111 lb Intake: Tube Feeding 540 Other 450 600 Other: # Voids 3 # Bowel Movements 1 Stool Characteristics Soft Soft Brown Weight Source Bedscale Bedscale Active Medications: Current Medications Acetaminophen (Tylenol 650mg/20.3ml Suspension) 650 mg GT Q4H PRN PRN Reason: TEMP >100.5 Stop: 03/06/18 00:13 Acetaminophen (Tylenol) 650 mg PO Q4H PRN PRN Reason: Pain Or Fever above 101 Stop: 03/06/18 00:15 Allopurinol (Zyloprim) 100 mg PO DAILY [facility] Stop: 03/07/18 16:59 Last Admin: 01/09/18 09:00 Dose: 100 mg Amlodipine Besylate (Norvasc) 10 mg GT DAILY ED Stop: 03/06/18 08:59 Last Admin: 01/09/18 09:00 Dose: 10 mg Ascorbic Acid (Vitamin C) 500 mg GT BID [facility] Stop: 03/06/18 08:59 Last Admin: 01/09/18 09:01 Dose: 500 mg Bandage/Support Products (Hydrogel) 1 appl TP DAILY [facility] Stop: 03/06/18 08:59 Last Admin: 01/09/18 09:01 Dose: 1 appl Heparin Sodium (Porcine) (Heparin) 5,000 units SUBQ Q12HR ED Stop: 03/06/18 08:59 Last Admin: 01/09/18 09:01 Dose: 5,000 units Dextrose (D5w) 1,000 mls @ 100 mls/hr IV .Q10H [facility] Stop: 03/07/18 12:59 Last Admin: 01/08/18 05:39 Dose: 100 mls/hr Insulin Aspart (Novolog) 0 units SUBQ ACHS [facility]; Protocol Stop: 03/06/18 07:29 Last Admin: 01/09/18 06:41 Dose: Not Given Mirtazapine (Remeron) 15 mg GT HS [facility]; Protocol Stop: 03/06/18 20:59 Last Admin: 01/08/18 21:11 Dose: 15 mg Ondansetron HCl (Zofran) 4 mg IV Q8H PRN PRN Reason: Nausea / Vomiting Stop: 03/06/18 00:15 Pantoprazole Sodium (Protonix) 40 mg GT DAILY@1200 ED Stop: 03/06/18 11:59 Last Admin: 01/08/18 13:00 Dose: 40 mg General: weak HEENT: NC/AT, PERRLA Neck: Supple Lungs: CTAB Cardiovascular: RRR, Normal S1, Normal S2, without murmur Abdomen: soft, non-tender, non-distended, positive bowel sound Extremities: excoriation Neurological: unable to follow command - Procedures Procedures: Procedures Procedure Code Date EGD PLACE GASTROSTOMY TUBE 70842 06/21/17 EXCISION OF ASCENDING COLON, ENDO, DIAGN [id number] 06/21/17 EXCISION OF CECUM, ENDO, DIAGN [id number] 06/21/17 EXCISION OF SIGMOID COLON, ENDO, DIAGN [id number] 06/21/17 EXCISION OF STOMACH, ENDO, DIAGN [id number] 06/21/17 INSERTION OF FEEDING DEVICE INTO STOMACH, PERC APPROACH [id number] 06/21/17 INSERTION OF INFUSION DEV INTO SUP VENA CAVA, PERC APPROACH [id number] 06/21/17 INTRODUCTION OF NUTRITIONAL INTO CENTRAL VEIN, PERC APPROACH [id number] 06/21/17 PARTIAL REMOVAL OF COLON 85338 06/21/17 RESECTION OF RIGHT LARGE INTESTINE, OPEN APPROACH [id number] 06/21/17 RESPIRATORY VENTILATION, LESS THAN 24 CONSECUTIVE HOURS [id number] 06/21/17 TRANSFUSE NONAUT RED BLOOD CELLS IN PERIPH VEIN, PERC 66934R4 11/16/17 Internal Medicine Assmt/Plan - Assessment Assessment: Severe dehydration, history of acute renal failure, diabetes, congestive heart failure, dementia and anxiety. - Plan Plan: continue ivf for hydration follow up labs in am continue current plan of care Nutritional Asmnt/Malnutr-PDOC - Dietary Evaluation Malnutrition Findings (Please click <Entered> for more info): Nutritional Asmnt/Malnutrition Start: 01/05/18 16: 04 Text: Status: Complete Freq: Protocol: Document 01/05/18 16:07 [email or web address] (Rec: 01/05/18 16:35 GRISELDA [email or web address]) Nutritional Asmnt/Malnutrition Patient General Information Nutritional Screening High Risk Diagnosis severe dehydration Pertinent Medical Hx/Surgical Hx DM, CHF, dementia, renal failure, anxiety, PEG/Gtube, schizophrenia Subjective Information Pt seen resting in bed at time of visit. TF was off at this time. Pt had renal U/S today per nurse. Per nurse ntoe, pt was tolerating TF, no residual noted. Current Diet Order/ Nutrition Support Glucerna 1.2 at 67ml x 20hr Pertinent Medications vit C, D5w, novolog, remeron, protonix Pertinent Labs 01/04 Na 167, Cl 123, BUN 108, Cr 1.9, glucose 125, POC 190 Nutritional Hx/Data Height 5 ft 3 in Height (Calculated Centimeters) 160.0 Current Weight (lbs) 104 lb Weight (Calculated Kilograms) 47.2 Weight (Calculated Grams) 19558.6 Body Mass Index (BMI) 18.4 GI Symptoms GI Symptoms None Last BM not indicated Difficult in: None Usual diet at home diabetisource at 67ml x 20hr, providing 1680kcal, 80g protein Skin Integrity/Comment: dryless, loose, Jose 14 Estimated Nutritional Goals Calories/Kcals/Kg 23-27 based on IBW 52kg Kcals Calculated 7255-3014 Protein g/k-1.2 monitor renal labs Protein Calculated 52-62 Fluid: ml per MD Nutritional Problem 1. Problem Problem altered nutrition related labs Etiology electrolytes/fluid imbalance and hx of DM Signs/Symptoms: Na 167, Cl 123, BUN 108, Cr 1. 9, glucose 125, POC 190 Intervention/Recommendation Comments 1. Recommend decrease Glucerna to 60ml/hr x 20hr, providing 1440kcal and 72g protein to avoid overfeeding pt. 2. Monitor TF rate, tolerance, wt, skin integrity and labs 3. F/U as high risk in 2-3 days, 01/07-01/08 Expected Outcomes/Goals Expected Outcomes/Goals 1. Pt to meet at least 75% of nutritional needs via nutrition support with tolerance 2. Wt stability, skin to remain intact, labs to approach WNL.
[2018-01-09] MEDS: Pantoprazole 40 mg/Packet GT SCH (14:02)
--- NOTE | 2018-01-09 14:12 | General Progress Note ---
Subjective - Review of Systems Service Date: 01/09/18 Subjective: sleeping, comfortable Objective - Results Result Diagrams: 01/09/18 04:25 01/09/18 04:25 Recent Labs: Laboratory Last Values WBC 7.0 Th/cmm (4.8-10.8) D 01/09/18 04:25 RBC 2.80 Mil/cmm (3.80-5.20) L 01/09/18 04:25 Hgb 8.7 gm/dL (12-16) L 01/09/18 04:25 Hct 24.4 % (41.0-60) L 01/09/18 04:25 MCV 87.1 fl (81-100) 01/09/18 04:25 MCH 30.9 pg (27.0-31.0) 01/09/18 04:25 MCHC Differential 35.5 pg (28.0-36.0) 01/09/18 04:25 RDW 15.5 % (11.5-20.0) 01/09/18 04:25 Plt Count 161 Th/cmm (150-400) D 01/09/18 04:25 MPV 10.9 fl 01/09/18 04:25 Add Manual Diff YES 01/09/18 04:25 Neutrophils % 49.8 % (40.0-80.0) 01/08/18 06:14 Band Neutrophils % 2 % (0-10) 01/09/18 04:25 Lymphocytes % 35.5 % (20.0-50.0) 01/08/18 06:14 Monocytes % 8.0 % (2.0-10.0) 01/08/18 06:14 Eosinophils % 6.3 % (0.0-5.0) H 01/08/18 06:14 Basophils % 0.4 % (0.0-2.0) 01/08/18 06:14 Neutrophils (Manual) 61 % (40-80) 01/09/18 04:25 Lymphocytes 32 % (20-50) 01/09/18 04:25 Monocytes 3 % (2-10) 01/09/18 04:25 Eosinophils 2 % (0-5) 01/09/18 04:25 Basophils 0 % (0-3) 01/09/18 04:25 Atypical Lymphocytes % 01/09/18 04:25 Platelet Morphology GIANT PLATELETS SEEN (NORMAL) 01/09/18 04:25 Eos Smear Source URINE 01/06/18 16:56 Eos Smear Total Cells NONE SEEN (NONE SEEN) 01/06/18 16:56 Sodium 135 mEq/L (136-145) L 01/09/18 04:25 Potassium 4.1 mEq/L (3.5-5.1) 01/09/18 04:25 Chloride 98 mEq/L (98-107) 01/09/18 04:25 Carbon Dioxide 33.5 mEq/L (21.0-31.0) H 01/09/18 04:25 Anion Gap 7.6 (7.0-16.0) 01/09/18 04:25 BUN 49 mg/dL (7-25) H 01/09/18 04:25 Creatinine 1.4 mg/dL (0.6-1.2) H 01/09/18 04:25 Est GFR ( Amer) TNP 01/09/18 04:25 Est GFR (Non-Af Amer) TNP 01/09/18 04:25 BUN/Creatinine Ratio 35.0 01/09/18 04:25 Glucose 190 mg/dL (70-105) H 01/09/18 04:25 POC Glucose 155 MG/DL (70 - 105) H 01/09/18 11:47 Uric Acid 7.4 mg/dL (2.3-6.6) H 01/06/18 06:20 Calcium 8.8 mg/dL (8.6-10.3) 01/09/18 04:25 Phosphorus 3.3 mg/dL (2.5-5.0) 01/06/18 06:20 Magnesium 2.4 mg/dL (1.9-2.7) 01/06/18 06:20 Total Bilirubin 0.2 mg/dL (0.3-1.0) L 01/06/18 06:20 AST 29 U/L (13-39) 01/06/18 06:20 ALT 36 U/L (7-52) 01/06/18 06:20 Alkaline Phosphatase 75 U/L (34-104) 01/06/18 06:20 Total Protein 6.1 gm/dL (6.0-8.3) 01/06/18 06:20 Albumin 3.1 gm/dL (3.7-5.3) L 01/06/18 06:20 Globulin 3.0 gm/dL 01/06/18 06:20 Albumin/Globulin Ratio 1.0 (1.0-1.8) 01/06/18 06:20 Urine Source MIDSTREAM 01/06/18 16:56 Urine Color YELLOW 01/06/18 16:56 Urine Clarity CLEAR (CLEAR) 01/06/18 16:56 Urine pH 6.0 (4.6 - 8.0) 01/06/18 16:56 Ur Specific [place] <= 1.005 (1.005-1.030) 01/06/18 16:56 Urine Protein TRACE mg/dL (NEGATIVE) 01/06/18 16:56 Urine Glucose (UA) NEGATIVE mg/dL (NEGATIVE) 01/06/18 16:56 Urine Ketones NEGATIVE mg/dL (NEGATIVE) 01/06/18 16:56 Urine Blood NEGATIVE (NEGATIVE) 01/06/18 16:56 Urine Nitrate NEGATIVE (NEGATIVE) 01/06/18 16:56 Urine Bilirubin NEGATIVE (NEGATIVE) 01/06/18 16:56 Urine Urobilinogen 0.2 E.U./dL (0.2 - 1.0) 01/06/18 16:56 Ur Leukocyte Esterase NEGATIVE (NEGATIVE) 01/06/18 16:56 Urine RBC NONE SEEN /hpf (0-5) 01/06/18 16:56 Urine WBC 0-2 /hpf (0-5) 01/06/18 16:56 Ur Epithelial Cells RARE /lpf (FEW) 01/06/18 16:56 Urine Bacteria NONE SEEN /hpf (NONE SEEN) 01/06/18 16:56 Urine Osmolality 174 mOsmol/kg 01/06/18 16:56 Ur Random Sodium 21 mmol/L 01/06/18 16:56 Urine Creatinine 15.0 mg/dl (28.0-217.0) L 01/06/18 16:56 - Physical Exam Vitals and I&O: Vital Signs Temp 96.6 F 01/09/18 08:17 Pulse 75 01/09/18 09:00 Resp 20 01/09/18 09:00 BP 168/75 01/09/18 09:00 Pulse Ox 95 01/09/18 08:17 Intake & Output 01/08/18 01/09/18 01/09/18 18:59 06:59 18:59 Intake Total 990 600 Balance 990 600 Weight (lbs) 50.53 kg 50.349 kg Intake: Tube Feeding 540 Other 450 600 Other: # Voids 3 # Bowel Movements 1 Stool Characteristics Soft Soft Brown Weight Source Bedscale Bedscale Active Medications: Current Medications Acetaminophen (Tylenol 650mg/20.3ml Suspension) 650 mg GT Q4H PRN PRN Reason: TEMP >100.5 Stop: 03/06/18 00:13 Amlodipine Besylate (Norvasc) 10 mg GT DAILY [facility] Stop: 03/06/18 08:59 Last Admin: 01/09/18 09:00 Dose: 10 mg Ascorbic Acid (Vitamin C) 500 mg GT BID [facility] Stop: 03/06/18 08:59 Last Admin: 01/09/18 09:01 Dose: 500 mg Bandage/Support Products (Hydrogel) 1 appl TP DAILY [facility] Stop: 03/06/18 08:59 Last Admin: 01/09/18 09:01 Dose: 1 appl Mirtazapine (Remeron) 15 mg GT HS ED; Protocol Stop: 03/06/18 20:59 Last Admin: 01/08/18 21:11 Dose: 15 mg Ondansetron HCl (Zofran) 4 mg IV Q8H PRN PRN Reason: Nausea / Vomiting Stop: 03/06/18 00:15 Pantoprazole Sodium (Protonix) 40 mg GT DAILY@1200 ED Stop: 03/06/18 11:59 Last Admin: 01/09/18 14:02 Dose: 40 mg General: No acute distress HEENT: Atraumatic, PERRLA Neck: Supple, +2 carotid pulse wo bruit Cardiovascular: Regular rate, Normal S1, Normal S2 Lungs: Clear to auscultation Abdomen: Bowel sounds, Soft Extremities: no Edema Neurological: Sensation intact Skin: no Rash Psych/Mental Status: Mood NL - Procedures Procedures: Procedures Procedure Code Date EGD PLACE GASTROSTOMY TUBE 34481 06/21/17 EXCISION OF ASCENDING COLON, ENDO, DIAGN [id number] 06/21/17 EXCISION OF CECUM, ENDO, DIAGN [id number] 06/21/17 EXCISION OF SIGMOID COLON, ENDO, DIAGN [id number] 06/21/17 EXCISION OF STOMACH, ENDO, DIAGN [id number] 06/21/17 INSERTION OF FEEDING DEVICE INTO STOMACH, PERC APPROACH [id number] 06/21/17 INSERTION OF INFUSION DEV INTO SUP VENA CAVA, PERC APPROACH 67CY80I 06/21/17 INTRODUCTION OF NUTRITIONAL INTO CENTRAL VEIN, PERC APPROACH [id number] 06/21/17 PARTIAL REMOVAL OF COLON 80488 06/21/17 RESECTION OF RIGHT LARGE INTESTINE, OPEN APPROACH [id number] 06/21/17 RESPIRATORY VENTILATION, LESS THAN 24 CONSECUTIVE HOURS [id number] 06/21/17 TRANSFUSE NONAUT RED BLOOD CELLS IN PERIPH VEIN, PERC 47094O2 11/16/17 Assessment/Plan - Assessment Assessment: LEONIE Met Enceph Dehydration Contraction Alkalosis Alzh Dementia T2DM Ess Htn Gastritis - Plan Plan: Lab - Result Diagrams 01/06/18 06:20 01/06/18 06:20 Current Medications Acetaminophen (Tylenol 650mg/20.3ml Suspension) 650 mg GT Q4H PRN PRN Reason: TEMP >100.5 Stop: 03/06/18 00:13 Acetaminophen (Tylenol) 650 mg PO Q4H PRN PRN Reason: Pain Or Fever above 101 Stop: 03/06/18 00:15 Allopurinol (Zyloprim) 100 mg PO DAILY ED Stop: 03/07/18 16:59 Amlodipine Besylate (Norvasc) 10 mg GT DAILY ED Stop: 03/06/18 08:59 Last Admin: 01/06/18 08:51 Dose: 10 mg Ascorbic Acid (Vitamin C) 500 mg GT BID ED Stop: 03/06/18 08:59 Last Admin: 01/06/18 08:51 Dose: 500 mg Bandage/Support Products (Hydrogel) 1 appl TP DAILY ED Stop: 03/06/18 08:59 Last Admin: 01/06/18 09:05 Dose: 1 appl Heparin Sodium (Porcine) (Heparin) 5,000 units SUBQ Q12HR ED Stop: 03/06/18 08:59 Last Admin: 01/06/18 08:51 Dose: 5,000 units Dextrose (D5w) 1,000 mls @ 100 mls/hr IV .Q10H ED Stop: 03/07/18 12:59 Last Admin: 01/06/18 12:51 Dose: 100 mls/hr Insulin Aspart (Novolog) 0 units SUBQ ACHS ED; Protocol Stop: 03/06/18 07:29 Last Admin: 01/06/18 12:09 Dose: Not Given Mirtazapine (Remeron) 15 mg GT HS ED; Protocol Stop: 03/06/18 20:59 Last Admin: 01/05/18 21:04 Dose: 15 mg Ondansetron HCl (Zofran) 4 mg IV Q8H PRN PRN Reason: Nausea / Vomiting Stop: 03/06/18 00:15 Pantoprazole Sodium (Protonix) 40 mg GT DAILY@1200 ED Stop: 03/06/18 11:59 Last Admin: 01/06/18 12:08 Dose: 40 mg Lab - Result Diagrams 01/09/18 04:25 01/09/18 04:25 Kidney fnc improving w/ BUN/CR of 49/1.4 Na down to 135 continue hydration, H20 flushes f/u electrolytes, cbc possible dc today Nutritional Asmnt/Malnutr-PDOC - Dietary Evaluation Malnutrition Findings (Please click <Entered> for more info): Nutritional Asmnt/Malnutrition Start: 01/05/18 16: 04 Text: Status: Complete Freq: Protocol: Document 01/05/18 16:07 LCHENG (Rec: 01/05/18 16:35 LCHENG [id number]) Nutritional Asmnt/Malnutrition Patient General Information Nutritional Screening High Risk Diagnosis severe dehydration Pertinent Medical Hx/Surgical Hx DM, CHF, dementia, renal failure, anxiety, PEG/Gtube, schizophrenia Subjective Information Pt seen resting in bed at time of visit. TF was off at this time. Pt had renal U/S today per nurse. Per nurse ntoe, pt was tolerating TF, no residual noted. Current Diet Order/ Nutrition Support Glucerna 1.2 at 67ml x 20hr Pertinent Medications vit C, D5w, novolog, remeron, protonix Pertinent Labs 01/04 Na 167, Cl 123, BUN 108, Cr 1.9, glucose 125, POC 190 Nutritional Hx/Data Height 1.6 m Height (Calculated Centimeters) 160.0 Current Weight (lbs) 47.174 kg Weight (Calculated Kilograms) 47.2 Weight (Calculated Grams) 19984.6 Body Mass Index (BMI) 18.4 GI Symptoms GI Symptoms None Last BM not indicated Difficult in: None Usual diet at home diabetisource at 67ml x 20hr, providing 1680kcal, 80g protein Skin Integrity/Comment: dryless, loose, Jose 14 Estimated Nutritional Goals Calories/Kcals/Kg 23-27 based on IBW 52kg Kcals Calculated 3108-0083 Protein g/k-1.2 monitor renal labs Protein Calculated 52-62 Fluid: ml per MD Nutritional Problem 1. Problem Problem altered nutrition related labs Etiology electrolytes/fluid imbalance and hx of DM Signs/Symptoms: Na 167, Cl 123, BUN 108, Cr 1. 9, glucose 125, POC 190 Intervention/Recommendation Comments 1. Recommend decrease Glucerna to 60ml/hr x 20hr, providing 1440kcal and 72g protein to avoid overfeeding pt. 2. Monitor TF rate, tolerance, wt, skin integrity and labs 3. F/U as high risk in 2-3 days, 01/07-01/08 Expected Outcomes/Goals Expected Outcomes/Goals 1. Pt to meet at least 75% of nutritional needs via nutrition support with tolerance 2. Wt stability, skin to remain intact, labs to approach WNL.
--- NOTE | 2018-01-09 17:22 | Discharge Summary ---
DATE OF DISCHARGE: 01/09/2018 DISCHARGE DIAGNOSES: Severe dehydration, which has been treated, history of acute renal failure, diabetes, CHF, dementia and anxiety. HISTORY OF PRESENT ILLNESS: This is a 77-year-old -[place] female who is a resident of [facility], admitted here to the telemetry unit due to BUN of 108 and sodium level of 177. PHYSICAL EXAMINATION: GENERAL: Elderly female, appears chronically ill, no apparent distress. VITAL SIGNS: Stable. HEENT: Head, normocephalic, atraumatic. NECK: Supple. No mass. LUNGS: Clear bilaterally. CARDIOVASCULAR: Regular rate and rhythm. ABDOMEN: Soft, nontender. HOSPITAL COURSE: During the hospital stay, the patient was admitted to the telemetry unit. The patient was on aggressive IV fluids for hydration as well as Nephrology consultation done. The patient had a renal ultrasound done, impression is no evidence of hydronephrosis. The patient's BUN and creatinine improved with IV fluids. For this reason, the patient was stable for discharge. CONDITION UPON DISCHARGE: Fair. DISPOSITION: [facility]. JOB# [id number]
--- NOTE | 2018-01-09 21:17 | Progress Notes ---
DATE: 01/09/2018 PSYCHIATRIC PROGRESS NOTE SUBJECTIVE: Staff was spoken to. The patient is interviewed. Mood is noted to be less irritable. Affect is appropriate. The patient is not presenting with any suicidal or homicidal ideation. The patient's sleep is noted to be fair. The patient is currently on 15 mg of the mirtazapine through the G-tube. The patient's coping skills are noted to be improving. No agitation is reported today. ASSESSMENT: The patient is still depressed. PLAN: To continue the patient with the mirtazapine and follow the patient with supportive therapy. [facility]# [id number]
[2018-01-09 22:24] LABS: A1C % 5.3 % (4.0-6.0)
== END 2018-01-09 18:30 | DRG 469 ==
LOC: ER 23:00 → TELE 01-05 00:30
PROVIDERS: ADMIT Internal Medicine; ATTEND Internal Medicine
DX: N17.9 Acute kidney failure, unspecified (principal); G93.41 Metabolic encephalopathy; E87.0 Hyperosmolality and hypernatremia; E87.3 Alkalosis; F25.9 Schizoaffective disorder, unspecified; E11.9 Type 2 diabetes mellitus without complications; D63.8 Anemia in other chronic diseases classified elsewhere; E86.0 Dehydration; I50.9 Heart failure, unspecified; F41.9 Anxiety disorder, unspecified; K29.70 Gastritis, unspecified, without bleeding; I11.0 Hypertensive heart disease with heart failure; F33.9 Major depressive disorder, recurrent, unspecified; G30.9 Alzheimer's disease, unspecified; F02.80 Dementia in other diseases classified elsewhere, unspecified severity, without behavioral disturbance, psychotic disturbance, mood disturbance, and anxiety; Z93.1 Gastrostomy status
CPT/HCPCS: 36415-UA; 76770-TC; 80048-TC; 80053-TC; 81001-TC; 81015-TC; 82570-TC; 82948-90; 83036-90; 83735-TC; 83935-90; 84100-TC; 84300-TC; 84550-TC; 85007-TC; 85025-TC; 93005; 94760; 96374; 96375; J1644; J1815; J7030; J7070; Z7610

== ENCOUNTER 2018-02-01 21:13 | Inpatient (IN) | payer MEDICAID ==
--- NOTE | 2018-02-01 21:27 | ED Physician Chart ---
ED Chief Complaint/HPI - Patient Information Date Seen:: 02/01/18 Time Seen:: 21:20 Chief Complaint:: AMS History of Present Illness:: onset x one day of AMS, ALOC, weakness, and lethargy; no report of trauma, H/As , S/T, cough, C/P, SOB, Abd. Pain, A/N/V/D/C, fever, chills, or urinary s/s Allergies:: Allergies Allergy/AdvReac Type Severity Reaction Status Date / Time No Known Allergies Allergy Verified 01/04/18 23:08 Historian:: Patient, EMS Review:: Nurse's Note Reviewed, Old Chart Reviewed, EMS run form Reviewed ED Review of Systems - Review of Systems General/Constitutional: No fever, No chills, No weight loss, Weakness, No diaphoresis, No edema, No loss of appetite Skin: No skin lesions, No rash, No bruising Head: No headache, No light-headedness Eyes: No loss of vision, No pain, No diplopia ENT: No earache, No nasal drainage, No sore throat, No tinnitus Neck: No neck pain, No swelling, No thyromegaly, No stiffness, No mass noted Cardio Vascular: No chest pain, No palpitations, No PND, No orthopnea, No edema Pulmonary: No SOB, No cough, No sputum, No wheezing GI: No nausea, No vomiting, No diarrhea, No pain, No melena, No hematochezia, No constipation, No hematemesis G/U: No dysuria, No frequency, No hematuria, No nacturia 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: No vaginal discharge, No abnormal vaginal bleed, No contraction Musculoskeletal: No bone or joint pain, No back pain, No muscle pain Endocrine: No polyuria, No polydipsia Psychiatric: No prior psych history, No depression, No anxiety, No suicidal ideation, No homicidal ideation, No auditory hallucination, No visual hallucination Hematopoietic: No bruising, No lymphadenopathy Allergic/Immuno: No urticaria, No angioedema Neurological: No syncope, No focal symptoms, Weakness, No paresthesia, No headache, No seizure, No dizziness, Confusion, No vertigo ED Past Medical History - Past Medical History Obtainable: Yes Past Medical History: HTN, DM, Dyslipidemia, Dementia, Other (Anemia; Renal Insuffiency) Family History: Diabetes Melitus, HTN Social History: Non Smoker, No Alcohol, No Drug Use, , Care Facility Surgical History: None Psychiatricy History: Dementia Medication: Reviewed Family Medical History - Family Member Mother History Unknown: Yes ED Physical Exam - Physical Examination General/Constitutional: Awake, Well-developed, well-nourished, Alert, No distress, GCS 15, Non-toxic appearing, Ambulatory Head: Atraumatic Eyes: Lids, conjuctiva normal, PERRL, EOMI Skin: Nl inspection, No rash, No skin lesions, No ecchymosis, Well hydrated, No lymphadenopathy ENMT: External ears, nose nl, TM canals nl, Nasal exam nl, Lips, teeth, gums nl , Oropharynx nl, Tonsils nl Neck: Nontender, Full ROM w/o pain, No JVD, No nuchal rigidity, No bruit, No mass, No stridor Respiratory: Nl effort/Exclusion, Clear to Auscultation, No Wheeze/Rhonchi/Rales Cardio Vascular: RRR, No murmur, gallop, rubs, NL S1 S2, Carotid/Femoral/Distal pulses equal bilaterally GI: No tenderness/rebounding/guarding, No organomegaly, No hernia, Normal BS's, Nondistended, No mass/bruits, No McBurney tenderness, Rectum exam nl : No CVA tenderness Extremities: No tenderness or effusion, Full ROM, normal strength in all extremities, No edema, Normal digits & nails Neuro/Psych: Alert/oriented, DTR's symmetric, Normal sensory exam, Normal motor strength, Judgement/insight normal, Mood normal, Normal gait, No focal deficits Misc: Normal back, No paraspinal tenderness ED Labs/Radiology/EKG Results - Lab Results Comments:: Reviewed - Radiology Results Comments:: NAD - EKG Interpretations EKG Time:: 21:22 Rate & Rhythm: 82; NSR Comments:: non-specific st-t changes ED Septic Shock - . Is Septic Shock (SBP<90, OR Lactate>4 mmol\L) present?: No ED Reassessment (Disposition) - Reassessment Reassessment Condition:: Improved - Diagnosis Diagnosis:: ALOC; AMS; Dehydration; Anemia; Hypernatremia; Hypokalemia; Pre-Renal Azotemia - Aftercare/Follow up Instructions Aftercare/Follow-Up Instructions:: Counseled pt regarding lab results/diagnosis & need follow up, Counseled pt & family regarding lab results/diagnosis & need follow up - Patient Disposition Discharge/Transfer:: Acute Care w/in this hosp Accepting Physician:: Dr. Tobias Time Called:: 2299 Time Responded:: 23:00 Admitted to:: Telemetry Spoke to:: Dr. Tobias Admitting Medical Physician:: Dr. Tobias Condition at Disposition:: Stable, Improved
[2018-02-01 21:43] LABS: % BASOPHILS 0.3 % (0.0-2.0); % EOSINOPHILS 1.5 % (0.0-5.0); % LYMPHOCYTES 28.1 % (20.0-50.0); % MONOCYTES 7.3 % (2.0-10.0); % NEUTROPHILS 62.8 % (40.0-80.0); EOSINOPHILE ABSOLUTE 0.1 Th/cmm (0.1-0.4); HEMATOCRIT 27.1 % (41.0-60); HEMOGLOBIN 8.3 gm/dL (12-16); LYMPHOCYTE ABSOLUTE 2.1 Th/cmm (1.5-3.0); MEAN CELL VOLUME 88.3 fl (81-100); MEAN CORPUSCULAR HEMOGLOBIN 27.1 pg (27.0-31.0); MEAN CORPUSCULAR HGB CONC 30.7 pg (28.0-36.0); MEAN PLATELET VOLUME 9.6 fl; MONOCYTE ABSOLUTE 0.5 Th/cmm (0.3-1.0); NEUTROPHILE ABSOLUTE 4.7 Th/cmm (1.8-8.0); PLATELET COUNT 261 Th/cmm (150-400); RED BLOOD COUNT 3.07 Mil/cmm (3.80-5.20); WHITE BLOOD COUNT 7.4 Th/cmm (4.8-10.8)
[2018-02-01 22:03] LABS: INR 0.96 (0.5-1.4)
[2018-02-01 22:05] LABS: ALB/GLOB RATIO 0.9 (1.0-1.8); ALBUMIN 3.3 gm/dL (3.7-5.3); ALKALINE PHOSPHATASE 79 U/L (34-104); ANION GAP 11.5 (7.0-16.0); BILIRUBIN,TOTAL 0.2 mg/dL (0.3-1.0); CALCIUM SERUM 10.1 mg/dL (8.6-10.3); CHLORIDE 112 mEq/L (98-107); CREATININE - SERUM 1.7 mg/dL (0.6-1.2); CREATININE KINASE 25 U/L (30-223); GLUCOSE 134 mg/dL (70-105); POTASSIUM SERUM 3.3 mEq/L (3.5-5.1); SGOT 17 U/L (13-39); SGPT/ALT 16 U/L (7-52); TOTAL PROTEIN,SERUM 6.9 gm/dL (6.0-8.3)
[2018-02-01 22:07] LABS: TROP I 0.03 ng/mL (0.01-0.05)
[2018-02-01 22:19] LABS: SODIUM SERUM 162 mEq/L (136-145)
[2018-02-01 22:20] LABS: BUN - UREA NITROGEN 116 mg/dL (7-25); CARBON DIOXIDE 41.8 mEq/L (21.0-31.0)
[2018-02-01] MEDS ORDERED: Potassium Chloride 20 mEq ER Tab PO ONE (23:22)
[2018-02-01] MEDS ORDERED: Potassium Chloride Elixir 20 mEq /15 mL UDC GT ONE (23:26)
[2018-02-01] MEDS ORDERED: Potassium Chloride Elixir 20 mEq /15 mL UDC ONE (23:28)
[2018-02-01] MEDS ORDERED: Sodium Chloride 0.9% 1,000 ML IV SCH (23:30)
[2018-02-01] MEDS ORDERED: GLUCAGON HCl 1 MG KIT SUBQ PRN (23:39)
[2018-02-02] MEDS ORDERED: INSULIN ASPART SLIDING SCALE 100 UNITS/ML UNIT SUBQ SCH (01:00)
[2018-02-02 06:37] LABS: % BASOPHILS 0.2 % (0.0-2.0); % EOSINOPHILS 1.9 % (0.0-5.0); % LYMPHOCYTES 34.4 % (20.0-50.0); % MONOCYTES 7.1 % (2.0-10.0); % NEUTROPHILS 56.4 % (40.0-80.0); EOSINOPHILE ABSOLUTE 0.1 Th/cmm (0.1-0.4); HEMATOCRIT 25.6 % (41.0-60); HEMOGLOBIN 8.1 gm/dL (12-16); LYMPHOCYTE ABSOLUTE 2.3 Th/cmm (1.5-3.0); MEAN CELL VOLUME 88.6 fl (81-100); MEAN CORPUSCULAR HGB CONC 31.7 pg (28.0-36.0); MEAN PLATELET VOLUME 10.4 fl; MONOCYTE ABSOLUTE 0.5 Th/cmm (0.3-1.0); NEUTROPHILE ABSOLUTE 3.8 Th/cmm (1.8-8.0); PLATELET COUNT 228 Th/cmm (150-400); RED BLOOD COUNT 2.89 Mil/cmm (3.80-5.20); WHITE BLOOD COUNT 6.7 Th/cmm (4.8-10.8)
[2018-02-02] MEDS: Dextrose 5% 1,000 ML IV SCH ×2 (06:53→17:10)
[2018-02-02 07:02] LABS: MAGNESIUM 2.8 mg/dL (1.9-2.7); PHOSPHOROUS 3.4 mg/dL (2.5-5.0)
--- NOTE | 2018-02-02 08:25 | Diagnostic Imaging Report ---
Portable chest x-ray History: Pain Allowing for portable technique the heart size is normal. No focal pulmonary parenchymal processes. No hilar or mediastinal abnormalities. Impression: No acute abnormalities.
[2018-02-02] MEDS ORDERED: Non-Formulary Item 1 EA (Amino Acids/Protein Hydrolys [Pro-Stat Sugar Free Liquid] 30 ML) GT SCH (09:00)
[2018-02-02] MEDS: INSULIN ASPART SLIDING SCALE 100 UNITS/ML UNIT SUBQ SCH ×3 (09:36→17:56)
--- NOTE | 2018-02-02 09:59 | Internal Medicine Prog Note ---
Internal Medicine Subjective - Subjective Service Date: 02/02/18 ([facility] [id number]) Internal Medicine Objective - Results Result Diagrams: 02/02/18 06:16 02/01/18 21:30 Recent Labs: Laboratory Last Values WBC 6.7 Th/cmm (4.8-10.8) 02/02/18 06:16 RBC 2.89 Mil/cmm (3.80-5.20) L 02/02/18 06:16 Hgb 8.1 gm/dL (12-16) L 02/02/18 06:16 Hct 25.6 % (41.0-60) L 02/02/18 06:16 MCV 88.6 fl (81-100) 02/02/18 06:16 MCH 28.0 pg (27.0-31.0) 02/02/18 06:16 MCHC Differential 31.7 pg (28.0-36.0) 02/02/18 06:16 RDW 17.0 % (11.5-20.0) 02/02/18 06:16 Plt Count 228 Th/cmm (150-400) 02/02/18 06:16 MPV 10.4 fl 02/02/18 06:16 Neutrophils % 56.4 % (40.0-80.0) 02/02/18 06:16 Lymphocytes % 34.4 % (20.0-50.0) 02/02/18 06:16 Monocytes % 7.1 % (2.0-10.0) 02/02/18 06:16 Eosinophils % 1.9 % (0.0-5.0) 02/02/18 06:16 Basophils % 0.2 % (0.0-2.0) 02/02/18 06:16 PT 10.0 SECONDS (9.5-11.5) 02/01/18 21:30 INR 0.96 (0.5-1.4) 02/01/18 21:30 PTT (Actin FS) 18.5 SECONDS (26.0-38.0) L 02/01/18 21:30 Sodium 162 mEq/L (136-145) H* 02/01/18 21:30 Potassium 3.3 mEq/L (3.5-5.1) L 02/01/18 21:30 Chloride 112 mEq/L (98-107) H 02/01/18 21:30 Carbon Dioxide 41.8 mEq/L (21.0-31.0) H 02/01/18 21:30 Anion Gap 11.5 (7.0-16.0) 02/01/18 21:30 BUN 116 mg/dL (7-25) H* 02/01/18 21:30 Creatinine 1.7 mg/dL (0.6-1.2) H 02/01/18 21:30 Est GFR ( Amer) TNP 02/01/18 21:30 Est GFR (Non-Af Amer) TNP 02/01/18 21:30 BUN/Creatinine Ratio 68.2 02/01/18 21:30 Glucose 134 mg/dL (70-105) H 02/01/18 21:30 Whole Bld Lactic Acid 1.04 mmol/L (0.60-1.99) 02/01/18 21:30 Calcium 10.1 mg/dL (8.6-10.3) 02/01/18 21:30 Phosphorus 3.4 mg/dL (2.5-5.0) 02/02/18 06:16 Magnesium 2.8 mg/dL (1.9-2.7) H 02/02/18 06:16 Total Bilirubin 0.2 mg/dL (0.3-1.0) L 02/01/18 21:30 AST 17 U/L (13-39) 02/01/18 21:30 ALT 16 U/L (7-52) 02/01/18 21:30 Alkaline Phosphatase 79 U/L (34-104) 02/01/18 21:30 Creatine Kinase 25 U/L (30-223) L 02/01/18 21:30 Troponin I 0.03 ng/mL (0.01-0.05) 02/01/18 21:30 B-Natriuretic Peptide 35.1 pg/mL (5.0-100.0) 02/02/18 06:16 Total Protein 6.9 gm/dL (6.0-8.3) 02/01/18 21:30 Albumin 3.3 gm/dL (3.7-5.3) L 02/01/18 21:30 Globulin 3.6 gm/dL 02/01/18 21:30 Albumin/Globulin Ratio 0.9 (1.0-1.8) L 02/01/18 21:30 - Physical Exam Vitals and I&O: Vital Signs Temp 98 F 02/02/18 07:40 Pulse 78 02/02/18 09:45 Resp 14 02/02/18 07:40 BP 174/74 02/02/18 09:45 Pulse Ox 95 02/02/18 07:40 Intake & Output 02/01/18 02/02/18 02/02/18 18:59 06:59 18:59 Weight (lbs) 101 lb Other: Weight Source Estimated Active Medications: Current Medications Amlodipine Besylate (Norvasc) 10 mg GT DAILY [facility] Stop: 04/03/18 08:59 Last Admin: 02/02/18 09:45 Dose: 10 mg Ascorbic Acid (Vitamin C) 500 mg GT BID [facility] Stop: 04/03/18 08:59 Last Admin: 02/02/18 09:45 Dose: 500 mg Glipizide (Glucotrol) 2.5 mg GT BID [facility] Stop: 04/03/18 09:39 Dextrose (D5w) 1,000 mls @ 125 mls/hr IV .Q8H [facility] Stop: 04/03/18 01:59 Last Admin: 02/02/18 06:53 Dose: 125 mls/hr Insulin Aspart (Novolog Insulin Sliding Scale) 0 units SUBQ Q6HR [facility]; Protocol Stop: 04/03/18 00:59 Last Admin: 02/02/18 09:36 Dose: 2 units Mirtazapine (Remeron) 15 mg GT HS [facility]; Protocol Stop: 04/03/18 20:59 Miscellaneous (Amino Acids/Protein Hydrolys [Pro-Stat Sugar Free Liquid]) 30 ml GT BID [facility] Stop: 04/03/18 08:59 Miscellaneous (Glucagon,Human Recombinant [Glucagon Emergency Kit]) 1 mg IJ PRN PRN PRN Reason: HYPOGLYCEMIA Miscellaneous (Haloperidol Decanoate [Haldol Decanoate 50]) 25 mg IM [id number] [facility] Stop: 04/02/18 23:44 Multivitamins/Minerals (Theragran M) 15 ml GT DAILY [facility] Stop: 04/03/18 08:59 Pantoprazole Sodium (Protonix) 40 mg GT DAILY@1200 [facility] Stop: 04/03/18 11:59 - Procedures Procedures: Procedures Procedure Code Date EGD PLACE GASTROSTOMY TUBE 45619 06/21/17 EXCISION OF ASCENDING COLON, ENDO, DIAGN [id number] 06/21/17 EXCISION OF CECUM, ENDO, DIAGN [id number] 06/21/17 EXCISION OF SIGMOID COLON, ENDO, DIAGN [id number] 06/21/17 EXCISION OF STOMACH, ENDO, DIAGN [id number] 06/21/17 INSERTION OF FEEDING DEVICE INTO STOMACH, PERC APPROACH [id number] 06/21/17 INSERTION OF INFUSION DEV INTO SUP VENA CAVA, PERC APPROACH 57KX09D 06/21/17 INTRODUCTION OF NUTRITIONAL INTO CENTRAL VEIN, PERC APPROACH [id number] 06/21/17 PARTIAL REMOVAL OF COLON 07506 06/21/17 RESECTION OF RIGHT LARGE INTESTINE, OPEN APPROACH [id number] 06/21/17 RESPIRATORY VENTILATION, LESS THAN 24 CONSECUTIVE HOURS [id number] 06/21/17 TRANSFUSE NONAUT RED BLOOD CELLS IN PERIPH VEIN, PERC 15404M3 11/16/17
--- NOTE | 2018-02-02 10:48 | History & Physical ---
ADMIT DATE: 02/02/2018 DICTATED FOR: Dr. Tobias. CHIEF COMPLAINT: Abnormal labs and altered mental status. HISTORY OF PRESENT ILLNESS: This is a 77-year-old -[place] female who is well known to me from [facility]. The patient had BMP yesterday and the patient's BUN showed 119. The patient was also noted to be more altered than usual. For this reason, the patient is now admitted here to the telemetry unit for further management. PAST MEDICAL HISTORY: Hypertension, diabetes, dyslipidemia, dementia, acute renal insufficiency, CHF. FAMILY HISTORY: Noncontributory. SOCIAL HISTORY: The patient is a detention resident, requiring 24-hour nursing care. SURGICAL HISTORY: PEG. MEDICATIONS: Please see medication list. REVIEW OF SYSTEMS: Unable to obtain at this time. PHYSICAL EXAMINATION: GENERAL: Elderly female, lethargic, in no apparent distress. VITAL SIGNS: Temperature 98, heart rate 71, blood pressure 164/71, respirations 14, O2 95%. HEENT: Head normocephalic, atraumatic. NECK: Supple. No mass. LUNGS: Clear bilaterally. HEART: Regular rhythm. ABDOMEN: Soft, nontender. SKIN: The patient has a stage 2 healing ulcer and the patient is positive for excoriations. LABORATORY DATA: WBC 6.7, H and H 8.1/25.6, platelet of 228. Sodium 162, potassium 3.3, chloride 112, BUN 116, creatinine 1.7, glucose 134. Albumin 3.3. DIAGNOSTICS: The patient had a chest x-ray done, impression, is no acute abnormality. ASSESSMENT: Severe dehydration, history of acute renal failure, diabetes, congestive heart failure, dementia, anxiety. PLAN: The patient to be admitted to the telemetry unit. We will get renal consultation. We will give the patient IV fluids for hydration. Monitor patient's BUN and creatinine closely. We will continue to follow this patient. [facility]# [id number]
[2018-02-02] MEDS: Multivitamin w/ Minerals 15 mL UDC GT SCH (11:07)
[2018-02-02] MEDS: Pantoprazole 40 mg/Packet GT SCH (11:08)
[2018-02-03] MEDS: INSULIN ASPART SLIDING SCALE 100 UNITS/ML UNIT SUBQ SCH ×3 (00:14→12:23)
[2018-02-03] MEDS: Dextrose 5% 1,000 ML IV SCH ×3 (00:36→21:44)
--- NOTE | 2018-02-03 03:14 | Consultation ---
DATE OF CONSULTATION: 02/02/2018 REASON FOR CONSULTATION: Worsening kidney function, electrolyte imbalance, and fluid management. HISTORY OF PRESENT ILLNESS: This is a 77-year-old -[place] female with past medical history of chronic kidney disease, who was brought in because of altered level of consciousness. A few hours prior to admission, the patient was found to be more altered per [facility] staff. Labs were drawn. This revealed a sodium of 161 with a BUN/creatinine of 119/1.8, potassium of 3.3, and CO2 of 42. Thus, she was brought to the Emergency Room. Her BUN/creatinine upon arrival at the Emergency Room were 116/1.7 with a sodium of 162, potassium of 3.3, and CO2 of 41.8. She has no history of nausea and vomiting as well as diarrhea. PAST MEDICAL HISTORY: 1. Chronic kidney disease. 2. Essential hypertension. 3. Type 2 diabetes mellitus. 4. Dyslipidemia. 5. Alzheimer dementia. 6. Anemia of chronic disease. PAST SURGICAL HISTORY: Status post PEG placement. CURRENT MEDICATIONS: She is currently on amlodipine, ascorbic acid, clonidine, glipizide, glucagon, haloperidol, aspart, mirtazapine, multivitamins, and pantoprazole. ALLERGIES: No known drug allergies. SOCIAL AND FAMILY HISTORY: I was not able to obtain directly from the patient because she remains nonverbal. REVIEW OF SYSTEMS: Again, I was not able to decipher directly from the patient because of the same reasons. PHYSICAL EXAMINATION: GENERAL: The patient is drowsy, but arousable, not in any form of distress. VITAL SIGNS: Her blood pressure now is 174/74, pulse is 78, and temperature 98 degrees. SKIN: Poor turgor, warm, no rash, no jaundice appreciated. HEENT: Head normocephalic, atraumatic. Eyes: Unable to assess her extraocular muscles. Pupils equal, round, reactive to light and accommodates. Anicteric sclerae. Pale conjunctivae. Nose, midline nasal septum. Mouth: Dry mucosa with poor dentition. NECK: Supple, no adenopathy, no thyromegaly, no bruits. Trachea palpated in the midline. CHEST AND CARDIOVASCULAR: S1, S2. No rub, murmur, nor gallop appreciated. Point of maximal impulse fifth intercostal space, left midclavicular line. No abdominal or femoral bruits appreciated. LUNGS: Equal expansion, no use of accessory muscles. No supraclavicular retractions. Decreased breath sounds, scattered rhonchi. No rales nor wheezes appreciated. BREASTS: Symmetrical, without any discharge. ABDOMEN: Flat ad soft. Positive for bowel sounds. No bruits either diastolic or systolic. RECTAL: Lax sphincter tone. GENITOURINARY: Normal appearing female genitalia. MUSCULOSKELETAL: No effusions present in her joints, but unable to assess her range of motion. EXTREMITIES: No evidence of any edema, cyanosis, nor clubbing. She has contracted upper extremities as well as moderately contracted lower extremities. NEUROLOGIC: As mentioned, the patient remains drowsy, thus unable to fully examine the patient. LABORATORY DATA AND STUDIES: Did reveal a white count 6.7, hemoglobin 8.1, hematocrit 25.6, and platelets 228. Sodium 162, potassium 3.3, CO2 41.8, BUN 116, creatinine 1.7, glucose is 134, calcium 10.1, phosphorus 3.4, magnesium 2.8. B-peptide 35.1. Albumin 3.3. IMPRESSION: 1. Acute kidney injury on chronic kidney disease. Chronic kidney disease is secondary to diabetic nephropathy with some underlying hypertensive nephrosclerosis. Acute kidney injury is initially prerenal in nature. Although the patient is on G-tube feedings with water flushes, these may be not enough to replenish both sensible and insensible fluid losses. She eventually developed dehydration. Her prerenal azotemia progressed to acute tubular injury. 2. Altered level of consciousness, possibly metabolic encephalopathy, brought about by dehydration along with severe electrolyte imbalance. 3. Moderate malnutrition. 4. Contraction alkalosis. 5. Hypokalemia secondary to contraction alkalosis. 6. Hypernatremia secondary to dehydration. 7. Severe dehydration. 8. Type 2 diabetes mellitus with chronic kidney disease. 9. Essential hypertension with chronic kidney disease. 10. Dyslipidemia. 11. Alzheimer dementia. 12. Anemia of chronic disease. PLAN: 1. Agree with D5W at 125 mL per hour. Monitor sugar closely. 2. Follow up electrolytes. 3. Urine osmolality. 4. Urine spot sodium, eosinophils, and creatinine. 5. Urine microalbumin to creatinine ratio. 6. Replace potassium. Thank you, Dr. Tobias, for this consult and I will follow the patient closely with you. JOB# [id number]
[2018-02-03 04:47] LABS: EOSINOPHIL SMEAR SOURCE URINE; EOSINOPHILS SMEAR COUNT NONE SEEN (NONE SEEN)
[2018-02-03 06:54] LABS: % BASOPHILS 0.1 % (0.0-2.0); % EOSINOPHILS 2.5 % (0.0-5.0); % LYMPHOCYTES 31.5 % (20.0-50.0); % MONOCYTES 6.8 % (2.0-10.0); % NEUTROPHILS 59.1 % (40.0-80.0); EOSINOPHILE ABSOLUTE 0.2 Th/cmm (0.1-0.4); HEMATOCRIT 23.9 % (41.0-60); LYMPHOCYTE ABSOLUTE 2.3 Th/cmm (1.5-3.0); MEAN CELL VOLUME 88.4 fl (81-100); MEAN CORPUSCULAR HEMOGLOBIN 28.3 pg (27.0-31.0); MEAN CORPUSCULAR HGB CONC 32.1 pg (28.0-36.0); MEAN PLATELET VOLUME 10.5 fl; MONOCYTE ABSOLUTE 0.5 Th/cmm (0.3-1.0); NEUTROPHILE ABSOLUTE 4.3 Th/cmm (1.8-8.0); PLATELET COUNT 214 Th/cmm (150-400); RED BLOOD COUNT 2.71 Mil/cmm (3.80-5.20); RED CELL DISTRIBUTION WIDTH 16.9 % (11.5-20.0); WHITE BLOOD COUNT 7.3 Th/cmm (4.8-10.8)
[2018-02-03 07:02] LABS: ANION GAP 8.9 (7.0-16.0); CALCIUM SERUM 9.1 mg/dL (8.6-10.3); CARBON DIOXIDE 35.7 mEq/L (21.0-31.0); CHLORIDE 107 mEq/L (98-107); CREATININE - SERUM 1.4 mg/dL (0.6-1.2); GLUCOSE 159 mg/dL (70-105); MAGNESIUM 2.4 mg/dL (1.9-2.7); POTASSIUM SERUM 3.6 mEq/L (3.5-5.1); SODIUM SERUM 148 mEq/L (136-145); URIC ACID 8.7 mg/dL (2.3-6.6)
[2018-02-03 07:53] LABS: BUN - UREA NITROGEN 85 mg/dL (7-25)
[2018-02-03 07:54] LABS: HEMOGLOBIN 7.7 gm/dL (12-16)
[2018-02-03] MEDS: Multivitamin w/ Minerals 15 mL UDC GT SCH (09:42)
[2018-02-03] MEDS: Pantoprazole 40 mg/Packet GT SCH (13:18)
--- NOTE | 2018-02-03 14:18 | General Progress Note ---
Subjective - Review of Systems Service Date: 02/03/18 Subjective: sleeping, comfortable Objective - Results Result Diagrams: 02/03/18 05:45 02/03/18 05:45 Recent Labs: Laboratory Last Values WBC 7.3 Th/cmm (4.8-10.8) 02/03/18 05:45 RBC 2.71 Mil/cmm (3.80-5.20) L 02/03/18 05:45 Hgb 7.7 gm/dL (12-16) L* 02/03/18 05:45 Hct 23.9 % (41.0-60) L 02/03/18 05:45 MCV 88.4 fl (81-100) 02/03/18 05:45 MCH 28.3 pg (27.0-31.0) 02/03/18 05:45 MCHC Differential 32.1 pg (28.0-36.0) 02/03/18 05:45 RDW 16.9 % (11.5-20.0) 02/03/18 05:45 Plt Count 214 Th/cmm (150-400) 02/03/18 05:45 MPV 10.5 fl 02/03/18 05:45 Neutrophils % 59.1 % (40.0-80.0) 02/03/18 05:45 Lymphocytes % 31.5 % (20.0-50.0) 02/03/18 05:45 Monocytes % 6.8 % (2.0-10.0) 02/03/18 05:45 Eosinophils % 2.5 % (0.0-5.0) 02/03/18 05:45 Basophils % 0.1 % (0.0-2.0) 02/03/18 05:45 Eos Smear Source URINE 02/02/18 23:10 Eos Smear Total Cells NONE SEEN (NONE SEEN) 02/02/18 23:10 PT 10.0 SECONDS (9.5-11.5) 02/01/18 21:30 INR 0.96 (0.5-1.4) 02/01/18 21:30 PTT (Actin FS) 18.5 SECONDS (26.0-38.0) L 02/01/18 21:30 Sodium 148 mEq/L (136-145) H 02/03/18 05:45 Potassium 3.6 mEq/L (3.5-5.1) 02/03/18 05:45 Chloride 107 mEq/L (98-107) 02/03/18 05:45 Carbon Dioxide 35.7 mEq/L (21.0-31.0) H 02/03/18 05:45 Anion Gap 8.9 (7.0-16.0) 02/03/18 05:45 BUN 85 mg/dL (7-25) H* 02/03/18 05:45 Creatinine 1.4 mg/dL (0.6-1.2) H 02/03/18 05:45 Est GFR ( Amer) TNP 02/03/18 05:45 Est GFR (Non-Af Amer) TNP 02/03/18 05:45 BUN/Creatinine Ratio 60.7 02/03/18 05:45 Glucose 159 mg/dL (70-105) H 02/03/18 05:45 POC Glucose 132 MG/DL (70 - 105) H 02/03/18 12:09 Whole Bld Lactic Acid 1.04 mmol/L (0.60-1.99) 02/01/18 21:30 Uric Acid 8.7 mg/dL (2.3-6.6) H 02/03/18 05:45 Calcium 9.1 mg/dL (8.6-10.3) 02/03/18 05:45 Phosphorus 3.0 mg/dL (2.5-5.0) 02/03/18 05:45 Magnesium 2.4 mg/dL (1.9-2.7) 02/03/18 05:45 Total Bilirubin 0.2 mg/dL (0.3-1.0) L 02/01/18 21:30 AST 17 U/L (13-39) 02/01/18 21:30 ALT 16 U/L (7-52) 02/01/18 21:30 Alkaline Phosphatase 79 U/L (34-104) 02/01/18 21:30 Ammonia 51 umol/L (16-53) 02/02/18 11:55 Creatine Kinase 25 U/L (30-223) L 02/01/18 21:30 Troponin I 0.03 ng/mL (0.01-0.05) 02/01/18 21:30 B-Natriuretic Peptide 35.1 pg/mL (5.0-100.0) 02/02/18 06:16 Total Protein 6.9 gm/dL (6.0-8.3) 02/01/18 21:30 Albumin 3.3 gm/dL (3.7-5.3) L 02/01/18 21:30 Globulin 3.6 gm/dL 02/01/18 21:30 Albumin/Globulin Ratio 0.9 (1.0-1.8) L 02/01/18 21:30 TSH 2.52 uIU/ml (0.34-5.60) 02/03/18 05:45 Ur Random Sodium 40 mmol/L 02/02/18 23:10 Urine Creatinine 37.0 mg/dl (28.0-217.0) 02/02/18 23:10 - Physical Exam Vitals and I&O: Vital Signs Temp 97 F 02/03/18 11:44 Pulse 77 02/03/18 11:44 Resp 18 02/03/18 11:44 BP 175/75 02/03/18 11:44 Pulse Ox 97 02/03/18 11:44 Intake & Output 02/02/18 02/03/18 02/03/18 18:59 06:59 18:59 Intake Total 1000 2033.167 0 Balance 1000 2033.167 0 Weight (lbs) 47.899 kg 49.895 kg Intake: Intake, IV Amount 1000 929.167 0 Dextrose 5% 1,000 ml @ 1000 929.167 0 125 mls/hr IV .Q8H [facility] Rx #:[id number] Oral 0 Tube Feeding 804 Other 300 Other: # Voids 1 # Bowel Movements 1 Weight Source Bedscale Bedscale Active Medications: Current Medications Amlodipine Besylate (Norvasc) 10 mg GT DAILY ED Stop: 04/03/18 08:59 Last Admin: 02/03/18 09:45 Dose: 10 mg Ascorbic Acid (Vitamin C) 500 mg GT BID ED Stop: 04/03/18 08:59 Last Admin: 02/03/18 09:43 Dose: 500 mg Glucagon (Glucagen) 1 mg SUBQ PRN PRN PRN Reason: BS BELOW 60 & NOT TOLERATE PO Stop: 03/03/18 23:38 Haloperidol Decanoate (Haldol Dec) 25 mg IM [id number] ED Stop: 04/02/18 23:44 Dextrose (D5w) 1,000 mls @ 125 mls/hr IV .Q8H ED Stop: 04/03/18 01:59 Last Infusion: 02/03/18 10:30 Dose: 125 mls/hr Insulin Aspart (Novolog Insulin Sliding Scale) 0 units SUBQ Q6HR ED; Protocol Stop: 04/03/18 00:59 Last Admin: 02/03/18 12:23 Dose: Not Given Mirtazapine (Remeron) 15 mg GT HS ED; Protocol Stop: 04/03/18 20:59 Multivitamins/Minerals (Theragran M) 15 ml GT DAILY ED Stop: 04/03/18 08:59 Last Admin: 02/03/18 09:42 Dose: 15 ml Pantoprazole Sodium (Protonix) 40 mg GT DAILY@1200 ED Stop: 04/03/18 11:59 Last Admin: 02/03/18 13:18 Dose: 40 mg General: No acute distress HEENT: Atraumatic, Mucous membr. moist/pink Neck: Supple, +2 carotid pulse wo bruit Cardiovascular: Regular rate, Normal S1, Normal S2 Lungs: Clear to auscultation Abdomen: Bowel sounds, Soft Extremities: no Edema Neurological: Sensation intact Psych/Mental Status: Mood NL - Procedures Procedures: Procedures Procedure Code Date EGD PLACE GASTROSTOMY TUBE 59115 06/21/17 EXCISION OF ASCENDING COLON, ENDO, DIAGN [id number] 06/21/17 EXCISION OF CECUM, ENDO, DIAGN [id number] 06/21/17 EXCISION OF SIGMOID COLON, ENDO, DIAGN [id number] 06/21/17 EXCISION OF STOMACH, ENDO, DIAGN [id number] 06/21/17 INSERTION OF FEEDING DEVICE INTO STOMACH, PERC APPROACH [id number] 06/21/17 INSERTION OF INFUSION DEV INTO SUP VENA CAVA, PERC APPROACH [id number] 06/21/17 INTRODUCTION OF NUTRITIONAL INTO CENTRAL VEIN, PERC APPROACH 6L9736S 06/21/17 PARTIAL REMOVAL OF COLON 67558 06/21/17 RESECTION OF RIGHT LARGE INTESTINE, OPEN APPROACH [id number] 06/21/17 RESPIRATORY VENTILATION, LESS THAN 24 CONSECUTIVE HOURS [id number] 06/21/17 TRANSFUSE NONAUT RED BLOOD CELLS IN PERIPH VEIN, PERC [id number] 11/16/17 Assessment/Plan - Assessment Assessment: LEONIE on CKD ALOC Met Enceph Contraction Alk Severe Dehydration T2DM w/ CKD Ess Htn w/ CKD Anemia of CD - Plan Plan: Lab - Result Diagrams 02/03/18 05:45 02/03/18 05:45 Current Medications Amlodipine Besylate (Norvasc) 10 mg GT DAILY ED Stop: 04/03/18 08:59 Last Admin: 02/03/18 09:45 Dose: 10 mg Ascorbic Acid (Vitamin C) 500 mg GT BID ED Stop: 04/03/18 08:59 Last Admin: 02/03/18 09:43 Dose: 500 mg Glucagon (Glucagen) 1 mg SUBQ PRN PRN PRN Reason: BS BELOW 60 & NOT TOLERATE PO Stop: 03/03/18 23:38 Haloperidol Decanoate (Haldol Dec) 25 mg IM [id number] ED Stop: 04/02/18 23:44 Dextrose (D5w) 1,000 mls @ 125 mls/hr IV .Q8H ED Stop: 04/03/18 01:59 Last Infusion: 02/03/18 10:30 Dose: 125 mls/hr Insulin Aspart (Novolog Insulin Sliding Scale) 0 units SUBQ Q6HR ED; Protocol Stop: 04/03/18 00:59 Last Admin: 02/03/18 12:23 Dose: Not Given Mirtazapine (Remeron) 15 mg GT HS ED; Protocol Stop: 04/03/18 20:59 Multivitamins/Minerals (Theragran M) 15 ml GT DAILY ED Stop: 04/03/18 08:59 Last Admin: 02/03/18 09:42 Dose: 15 ml Pantoprazole Sodium (Protonix) 40 mg GT DAILY@1200 ED Stop: 04/03/18 11:59 Last Admin: 02/03/18 13:18 Dose: 40 mg Lab - Result Diagrams 02/03/18 05:45 02/03/18 05:45 Na down to 148 Kidney fnc improved to BUN/CR of 85/1.4 continue hydration may need transfusion
--- NOTE | 2018-02-03 15:45 | Internal Medicine Prog Note ---
Internal Medicine Subjective - Subjective Service Date: 02/03/18 Patient seen and examined:: with staff Patient is:: asleep, non-verbal Per staff patient has:: tolerating meds Internal Medicine Objective - Results Result Diagrams: 02/03/18 05:45 02/03/18 05:45 Recent Labs: Laboratory Last Values WBC 7.3 Th/cmm (4.8-10.8) 02/03/18 05:45 RBC 2.71 Mil/cmm (3.80-5.20) L 02/03/18 05:45 Hgb 7.7 gm/dL (12-16) L* 02/03/18 05:45 Hct 23.9 % (41.0-60) L 02/03/18 05:45 MCV 88.4 fl (81-100) 02/03/18 05:45 MCH 28.3 pg (27.0-31.0) 02/03/18 05:45 MCHC Differential 32.1 pg (28.0-36.0) 02/03/18 05:45 RDW 16.9 % (11.5-20.0) 02/03/18 05:45 Plt Count 214 Th/cmm (150-400) 02/03/18 05:45 MPV 10.5 fl 02/03/18 05:45 Neutrophils % 59.1 % (40.0-80.0) 02/03/18 05:45 Lymphocytes % 31.5 % (20.0-50.0) 02/03/18 05:45 Monocytes % 6.8 % (2.0-10.0) 02/03/18 05:45 Eosinophils % 2.5 % (0.0-5.0) 02/03/18 05:45 Basophils % 0.1 % (0.0-2.0) 02/03/18 05:45 Eos Smear Source URINE 02/02/18 23:10 Eos Smear Total Cells NONE SEEN (NONE SEEN) 02/02/18 23:10 PT 10.0 SECONDS (9.5-11.5) 02/01/18 21:30 INR 0.96 (0.5-1.4) 02/01/18 21:30 PTT (Actin FS) 18.5 SECONDS (26.0-38.0) L 02/01/18 21:30 Sodium 148 mEq/L (136-145) H 02/03/18 05:45 Potassium 3.6 mEq/L (3.5-5.1) 02/03/18 05:45 Chloride 107 mEq/L (98-107) 02/03/18 05:45 Carbon Dioxide 35.7 mEq/L (21.0-31.0) H 02/03/18 05:45 Anion Gap 8.9 (7.0-16.0) 02/03/18 05:45 BUN 85 mg/dL (7-25) H* 02/03/18 05:45 Creatinine 1.4 mg/dL (0.6-1.2) H 02/03/18 05:45 Est GFR ( Amer) TNP 02/03/18 05:45 Est GFR (Non-Af Amer) TNP 02/03/18 05:45 BUN/Creatinine Ratio 60.7 02/03/18 05:45 Glucose 159 mg/dL (70-105) H 02/03/18 05:45 POC Glucose 132 MG/DL (70 - 105) H 02/03/18 12:09 Whole Bld Lactic Acid 1.04 mmol/L (0.60-1.99) 02/01/18 21:30 Uric Acid 8.7 mg/dL (2.3-6.6) H 02/03/18 05:45 Calcium 9.1 mg/dL (8.6-10.3) 02/03/18 05:45 Phosphorus 3.0 mg/dL (2.5-5.0) 02/03/18 05:45 Magnesium 2.4 mg/dL (1.9-2.7) 02/03/18 05:45 Total Bilirubin 0.2 mg/dL (0.3-1.0) L 02/01/18 21:30 AST 17 U/L (13-39) 02/01/18 21:30 ALT 16 U/L (7-52) 02/01/18 21:30 Alkaline Phosphatase 79 U/L (34-104) 02/01/18 21:30 Ammonia 51 umol/L (16-53) 02/02/18 11:55 Creatine Kinase 25 U/L (30-223) L 02/01/18 21:30 Troponin I 0.03 ng/mL (0.01-0.05) 02/01/18 21:30 B-Natriuretic Peptide 35.1 pg/mL (5.0-100.0) 02/02/18 06:16 Total Protein 6.9 gm/dL (6.0-8.3) 02/01/18 21:30 Albumin 3.3 gm/dL (3.7-5.3) L 02/01/18 21:30 Globulin 3.6 gm/dL 02/01/18 21:30 Albumin/Globulin Ratio 0.9 (1.0-1.8) L 02/01/18 21:30 TSH 2.52 uIU/ml (0.34-5.60) 02/03/18 05:45 Ur Random Sodium 40 mmol/L 02/02/18 23:10 Urine Creatinine 37.0 mg/dl (28.0-217.0) 02/02/18 23:10 - Physical Exam Vitals and I&O: Vital Signs Temp 96.3 F 02/03/18 15:31 Pulse 62 02/03/18 15:31 Resp 17 02/03/18 15:31 BP 141/77 02/03/18 15:31 Pulse Ox 100 02/03/18 15:31 Intake & Output 02/02/18 02/03/18 02/03/18 18:59 06:59 18:59 Intake Total 1000 2033.167 0 Balance 1000 2033.167 0 Weight (lbs) 105 lb 9.6 oz 110 lb Intake: Intake, IV Amount 1000 929.167 0 Dextrose 5% 1,000 ml @ 1000 929.167 0 125 mls/hr IV .Q8H [facility] Rx #:[id number] Oral 0 Tube Feeding 804 Other 300 Other: # Voids 1 # Bowel Movements 1 Weight Source Bedscale Bedscale Active Medications: Current Medications Amlodipine Besylate (Norvasc) 10 mg GT DAILY ED Stop: 04/03/18 08:59 Last Admin: 02/03/18 09:45 Dose: 10 mg Ascorbic Acid (Vitamin C) 500 mg GT BID ED Stop: 04/03/18 08:59 Last Admin: 02/03/18 09:43 Dose: 500 mg Glucagon (Glucagen) 1 mg SUBQ PRN PRN PRN Reason: BS BELOW 60 & NOT TOLERATE PO Stop: 03/03/18 23:38 Haloperidol Decanoate (Haldol Dec) 25 mg IM [id number] [facility] Stop: 04/02/18 23:44 Dextrose (D5w) 1,000 mls @ 100 mls/hr IV .Q10H ED Stop: 04/04/18 14:29 Insulin Aspart (Novolog Insulin Sliding Scale) 0 units SUBQ Q6HR [facility]; Protocol Stop: 04/03/18 00:59 Last Admin: 02/03/18 12:23 Dose: Not Given Mirtazapine (Remeron) 15 mg GT HS ED; Protocol Stop: 04/03/18 20:59 Multivitamins/Minerals (Theragran M) 15 ml GT DAILY [facility] Stop: 04/03/18 08:59 Last Admin: 02/03/18 09:42 Dose: 15 ml Pantoprazole Sodium (Protonix) 40 mg GT DAILY@1200 ED Stop: 04/03/18 11:59 Last Admin: 02/03/18 13:18 Dose: 40 mg General: weak HEENT: NC/AT, PERRLA Neck: Supple Cardiovascular: RRR, Normal S1, Normal S2 Abdomen: soft, non-tender, non-distended, +GT - Procedures Procedures: Procedures Procedure Code Date EGD PLACE GASTROSTOMY TUBE 53929 06/21/17 EXCISION OF ASCENDING COLON, ENDO, DIAGN [id number] 06/21/17 EXCISION OF CECUM, ENDO, DIAGN [id number] 06/21/17 EXCISION OF SIGMOID COLON, ENDO, DIAGN [id number] 06/21/17 EXCISION OF STOMACH, ENDO, DIAGN [id number] 06/21/17 INSERTION OF FEEDING DEVICE INTO STOMACH, PERC APPROACH [id number] 06/21/17 INSERTION OF INFUSION DEV INTO SUP VENA CAVA, PERC APPROACH 31AW57S 06/21/17 INTRODUCTION OF NUTRITIONAL INTO CENTRAL VEIN, PERC APPROACH [id number] 06/21/17 PARTIAL REMOVAL OF COLON 19234 06/21/17 RESECTION OF RIGHT LARGE INTESTINE, OPEN APPROACH [id number] 06/21/17 RESPIRATORY VENTILATION, LESS THAN 24 CONSECUTIVE HOURS 5H2625S 06/21/17 TRANSFUSE NONAUT RED BLOOD CELLS IN PERIPH VEIN, PERC [id number] 11/16/17 Internal Medicine Assmt/Plan - Assessment Assessment: Severe dehydration, history of acute renal failure, diabetes, congestive heart failure, dementia, anxiety. . - Plan Plan: IV fluids for hydration to continue Monitor patient's BUN and creatinine closely. will follow oracle consultant recommendations cpm
[2018-02-04 05:46] LABS: % BASOPHILS 0.7 % (0.0-2.0); % LYMPHOCYTES 15.5 % (20.0-50.0); % MONOCYTES 3.5 % (2.0-10.0); % NEUTROPHILS 79.3 % (40.0-80.0); BASOPHILE ABSOLUTE 0.1 Th/cumm (0-0.2); EOSINOPHILE ABSOLUTE 0.1 Th/cmm (0.1-0.4); HEMATOCRIT 25.5 % (41.0-60); HEMOGLOBIN 8.3 gm/dL (12-16); LYMPHOCYTE ABSOLUTE 1.3 Th/cmm (1.5-3.0); MEAN CELL VOLUME 87.1 fl (81-100); MEAN CORPUSCULAR HEMOGLOBIN 28.2 pg (27.0-31.0); MEAN CORPUSCULAR HGB CONC 32.3 pg (28.0-36.0); MEAN PLATELET VOLUME 10.3 fl; MONOCYTE ABSOLUTE 0.3 Th/cmm (0.3-1.0); NEUTROPHILE ABSOLUTE 6.5 Th/cmm (1.8-8.0); PLATELET COUNT 195 Th/cmm (150-400); RED BLOOD COUNT 2.93 Mil/cmm (3.80-5.20); RED CELL DISTRIBUTION WIDTH 16.4 % (11.5-20.0); WHITE BLOOD COUNT 8.3 Th/cmm (4.8-10.8)
[2018-02-04 06:05] LABS: ANION GAP 12.4 (7.0-16.0); BUN - UREA NITROGEN 64 mg/dL (7-25); CALCIUM SERUM 9.2 mg/dL (8.6-10.3); CARBON DIOXIDE 29.2 mEq/L (21.0-31.0); CHLORIDE 100 mEq/L (98-107); CREATININE - SERUM 1.3 mg/dL (0.6-1.2); GLUCOSE 181 mg/dL (70-105); MAGNESIUM 2.2 mg/dL (1.9-2.7); POTASSIUM SERUM 3.6 mEq/L (3.5-5.1); SODIUM SERUM 138 mEq/L (136-145)
[2018-02-04] MEDS: INSULIN ASPART SLIDING SCALE 100 UNITS/ML UNIT SUBQ SCH ×6 (06:14→18:17)
[2018-02-04] MEDS: Multivitamin w/ Minerals 15 mL UDC GT SCH (08:29)
[2018-02-04] MEDS: Dextrose 5% 1,000 ML IV SCH (10:41)
[2018-02-04] MEDS: Pantoprazole 40 mg/Packet GT SCH (11:50)
--- NOTE | 2018-02-04 13:15 | Internal Medicine Prog Note ---
Internal Medicine Subjective - Subjective Service Date: 02/04/18 Patient is:: asleep, non-verbal Patient Complaints of:: congestion Per staff patient has:: tolerating meds Internal Medicine Objective - Results Result Diagrams: 02/04/18 05:37 02/04/18 05:37 Recent Labs: Laboratory Last Values WBC 8.3 Th/cmm (4.8-10.8) 02/04/18 05:37 RBC 2.93 Mil/cmm (3.80-5.20) L 02/04/18 05:37 Hgb 8.3 gm/dL (12-16) L 02/04/18 05:37 Hct 25.5 % (41.0-60) L 02/04/18 05:37 MCV 87.1 fl (81-100) 02/04/18 05:37 MCH 28.2 pg (27.0-31.0) 02/04/18 05:37 MCHC Differential 32.3 pg (28.0-36.0) 02/04/18 05:37 RDW 16.4 % (11.5-20.0) 02/04/18 05:37 Plt Count 195 Th/cmm (150-400) 02/04/18 05:37 MPV 10.3 fl 02/04/18 05:37 Neutrophils % 79.3 % (40.0-80.0) 02/04/18 05:37 Lymphocytes % 15.5 % (20.0-50.0) L 02/04/18 05:37 Monocytes % 3.5 % (2.0-10.0) 02/04/18 05:37 Eosinophils % 1.0 % (0.0-5.0) 02/04/18 05:37 Basophils % 0.7 % (0.0-2.0) 02/04/18 05:37 Eos Smear Source URINE 02/02/18 23:10 Eos Smear Total Cells NONE SEEN (NONE SEEN) 02/02/18 23:10 PT 10.0 SECONDS (9.5-11.5) 02/01/18 21:30 INR 0.96 (0.5-1.4) 02/01/18 21:30 PTT (Actin FS) 18.5 SECONDS (26.0-38.0) L 02/01/18 21:30 Sodium 138 mEq/L (136-145) 02/04/18 05:37 Potassium 3.6 mEq/L (3.5-5.1) 02/04/18 05:37 Chloride 100 mEq/L (98-107) 02/04/18 05:37 Carbon Dioxide 29.2 mEq/L (21.0-31.0) 02/04/18 05:37 Anion Gap 12.4 (7.0-16.0) 02/04/18 05:37 BUN 64 mg/dL (7-25) H 02/04/18 05:37 Creatinine 1.3 mg/dL (0.6-1.2) H 02/04/18 05:37 Est GFR ( Amer) TNP 02/04/18 05:37 Est GFR (Non-Af Amer) TNP 02/04/18 05:37 BUN/Creatinine Ratio 49.2 02/04/18 05:37 Glucose 181 mg/dL (70-105) H 02/04/18 05:37 POC Glucose 122 MG/DL (70 - 105) H 02/04/18 11:22 Whole Bld Lactic Acid 1.04 mmol/L (0.60-1.99) 02/01/18 21:30 Uric Acid 8.7 mg/dL (2.3-6.6) H 02/03/18 05:45 Calcium 9.2 mg/dL (8.6-10.3) 02/04/18 05:37 Phosphorus 3.0 mg/dL (2.5-5.0) 02/03/18 05:45 Magnesium 2.2 mg/dL (1.9-2.7) 02/04/18 05:37 Total Bilirubin 0.2 mg/dL (0.3-1.0) L 02/01/18 21:30 AST 17 U/L (13-39) 02/01/18 21:30 ALT 16 U/L (7-52) 02/01/18 21:30 Alkaline Phosphatase 79 U/L (34-104) 02/01/18 21:30 Ammonia 51 umol/L (16-53) 02/02/18 11:55 Creatine Kinase 25 U/L (30-223) L 02/01/18 21:30 Troponin I 0.03 ng/mL (0.01-0.05) 02/01/18 21:30 B-Natriuretic Peptide 106.0 pg/mL (5.0-100.0) H 02/04/18 05:37 Total Protein 6.9 gm/dL (6.0-8.3) 02/01/18 21:30 Albumin 3.3 gm/dL (3.7-5.3) L 02/01/18 21:30 Globulin 3.6 gm/dL 02/01/18 21:30 Albumin/Globulin Ratio 0.9 (1.0-1.8) L 02/01/18 21:30 TSH 2.52 uIU/ml (0.34-5.60) 02/03/18 05:45 Ur Random Sodium 40 mmol/L 02/02/18 23:10 Urine Creatinine 37.0 mg/dl (28.0-217.0) 02/02/18 23:10 Stool Occult Blood POSITIVE (NEGATIVE) H 02/04/18 05:00 - Physical Exam Vitals and I&O: Vital Signs Temp 97.0 F 02/04/18 11:48 Pulse 72 02/04/18 11:48 Resp 18 02/04/18 11:48 BP 140/72 02/04/18 11:48 Pulse Ox 98 02/04/18 11:48 Intake & Output 02/03/18 02/04/18 02/04/18 18:59 06:59 18:59 Intake Total 0 9320.382 4585 Balance 0 5921.309 2546 Weight (lbs) 113 lb 11.2 oz Intake: Intake, IV Amount 0 312.650 4932 Dextrose 5% 1,000 ml @ 522.693 4175 100 mls/hr IV .Q10H ED Rx#:[id number] Dextrose 5% 1,000 ml @ 0 125 mls/hr IV .Q8H ED Rx #:[id number] Tube Feeding 804 Other 100 Other: # Voids 2 # Bowel Movements 1 Weight Source Bedscale Active Medications: Current Medications Amlodipine Besylate (Norvasc) 10 mg GT DAILY ED Stop: 04/03/18 08:59 Last Admin: 02/04/18 08:30 Dose: 10 mg Ascorbic Acid (Vitamin C) 500 mg GT BID ED Stop: 04/03/18 08:59 Last Admin: 02/04/18 08:30 Dose: 500 mg Glucagon (Glucagen) 1 mg SUBQ PRN PRN PRN Reason: BS BELOW 60 & NOT TOLERATE PO Stop: 03/03/18 23:38 Haloperidol Decanoate (Haldol Dec) 25 mg IM [id number] [facility] Stop: 04/02/18 23:44 Dextrose (D5w) 1,000 mls @ 100 mls/hr IV .Q10H [facility] Stop: 04/04/18 14:29 Last Admin: 02/04/18 10:41 Dose: 100 mls/hr Insulin Aspart (Novolog Insulin Sliding Scale) 0 units SUBQ Q6HR [facility]; Protocol Stop: 04/03/18 00:59 Last Admin: 02/04/18 11:35 Dose: Not Given Mirtazapine (Remeron) 15 mg GT HS [facility]; Protocol Stop: 04/03/18 20:59 Multivitamins/Minerals (Theragran M) 15 ml GT DAILY [facility] Stop: 04/03/18 08:59 Last Admin: 02/04/18 08:29 Dose: 15 ml Pantoprazole Sodium (Protonix) 40 mg GT DAILY@1200 ED Stop: 04/03/18 11:59 Last Admin: 02/04/18 11:50 Dose: 40 mg General: weak HEENT: NC/AT, PERRLA Neck: Supple Cardiovascular: RRR, Normal S1, Normal S2 Abdomen: soft, non-tender, non-distended, +GT - Procedures Procedures: Procedures Procedure Code Date EGD PLACE GASTROSTOMY TUBE 91548 06/21/17 EXCISION OF ASCENDING COLON, ENDO, DIAGN [id number] 06/21/17 EXCISION OF CECUM, ENDO, DIAGN [id number] 06/21/17 EXCISION OF SIGMOID COLON, ENDO, DIAGN [id number] 06/21/17 EXCISION OF STOMACH, ENDO, DIAGN [id number] 06/21/17 INSERTION OF FEEDING DEVICE INTO STOMACH, PERC APPROACH [id number] 06/21/17 INSERTION OF INFUSION DEV INTO SUP VENA CAVA, PERC APPROACH [id number] 06/21/17 INTRODUCTION OF NUTRITIONAL INTO CENTRAL VEIN, PERC APPROACH [id number] 06/21/17 PARTIAL REMOVAL OF COLON 38957 06/21/17 RESECTION OF RIGHT LARGE INTESTINE, OPEN APPROACH [id number] 06/21/17 RESPIRATORY VENTILATION, LESS THAN 24 CONSECUTIVE HOURS [id number] 06/21/17 TRANSFUSE NONAUT RED BLOOD CELLS IN PERIPH VEIN, PERC [id number] 11/16/17 Internal Medicine Assmt/Plan - Assessment Assessment: Severe dehydration, history of acute renal failure, diabetes, congestive heart failure, dementia, anxiety. . - Plan Plan: decrease ivf due to congestion Monitor patient's BUN and creatinine closely. will follow bath design sales consultant recommendations cpm Nutritional Asmnt/Malnutr-PDOC - Dietary Evaluation Malnutrition Findings (Please click <Entered> for more info): Nutritional Asmnt/Malnutrition Start: 02/03/18 17: 04 Text: Status: Complete Freq: Protocol: Document 02/03/18 17:10 [email or web address] (Rec: 02/03/18 17:37 JENYG [email or web address]) Nutritional Asmnt/Malnutrition Patient General Information Nutritional Screening High Risk Diagnosis acute renal failure Pertinent Medical Hx/Surgical Hx HTN, DM, dyslipidemia, demntia , acute renal insufficiency, CHF Subjective Information Consult received for non intact wound. Pt seen lying in bed at time of visit, nonverbal. Verified glucerna 1 .2 running at 67ml/hr at this time. Current Diet Order/ Nutrition Support glucerna 1.2 at 67ml/hr x 20hr , providing 1608kcal and 80g protein Pertinent Medications vit C, novolog, remeron, theragran, protonix Pertinent Labs 02/03 Na 148, BUN 85, Cr 1.4, glucose 159, POC 132-148 Nutritional Hx/Data Height 5 ft 3 in Height (Calculated Centimeters) 160.0 Current Weight (lbs) 110 lb Weight (Calculated Kilograms) 49.9 Weight (Calculated Grams) 75189.2 [place] Body Weight 115 Body Mass Index (BMI) 19.5 Weight Status Approriate GI Symptoms GI Symptoms None Last BM 02/03 Difficult in: None Skin Integrity/Comment: non intact skin to sacral area per wound care note benji 10 Estimated Nutritional Goals BEE in Kcals: Using Current wt Calories/Kcals/Kg 27-32 Kcals Calculated 7034-9772 Protein: Using Current wt Protein g/k.2-1.4 monitor renal labs Protein Calculated 60-70 Fluid: ml per MD Nutritional Problem 2. Problem Problem increased nutrition needs Etiology imparied skin integrity Signs/Symptoms: non intact wound to sacral area 1. Problem Problem altered nutrition related labs Etiology acute renal failure, hx of DM Signs/Symptoms: Na 148, BUN 85, Cr 1.4, glucose 159, POC 132-148 Malnutrition Alert Is there a minimum of two criteria No selected? Query Text:Check all the applicable criteria. A minimum of two criteria are recommended for diagnosis of either severe or non-severe malnutrition. Malnutrition Related to Morbid Obesity Malnutrition related to morbid obesity No Intervention/Recommendation Comments 1. Recommend decreasing Glucerna 1.2 rate to 60ml/hr x 20hr considering elevated BUN and excesive protein intake. It provides 1608kcal, 80g protein, 888ml free water, meeting 100% of nutritional needs 2. Consider adding Amrit BID via [employer] to help with wound healing. 3. Monitor TF rate, tolerance, wt, skin integrity and labs 4. F/U as high risk in 2-3 days, 02/05-02/06 Expected Outcomes/Goals Expected Outcomes/Goals 1. Pt to meet at least 75% of nutritional needs via nutrition support with tolerance 2. Wt stability, skin integrity to improve., labs to approach WNL.
[2018-02-04 13:33] LABS: CREATININEURINE 32.2 mg/dl; MICROALBUMIN RANDOM RUINE 185.5
--- NOTE | 2018-02-04 14:35 | General Progress Note ---
Subjective - Review of Systems Service Date: 02/04/18 Subjective: sleeping, comfortable Objective - Results Result Diagrams: 02/04/18 05:37 02/04/18 05:37 Recent Labs: Laboratory Last Values WBC 8.3 Th/cmm (4.8-10.8) 02/04/18 05:37 RBC 2.93 Mil/cmm (3.80-5.20) L 02/04/18 05:37 Hgb 8.3 gm/dL (12-16) L 02/04/18 05:37 Hct 25.5 % (41.0-60) L 02/04/18 05:37 MCV 87.1 fl (81-100) 02/04/18 05:37 MCH 28.2 pg (27.0-31.0) 02/04/18 05:37 MCHC Differential 32.3 pg (28.0-36.0) 02/04/18 05:37 RDW 16.4 % (11.5-20.0) 02/04/18 05:37 Plt Count 195 Th/cmm (150-400) 02/04/18 05:37 MPV 10.3 fl 02/04/18 05:37 Neutrophils % 79.3 % (40.0-80.0) 02/04/18 05:37 Lymphocytes % 15.5 % (20.0-50.0) L 02/04/18 05:37 Monocytes % 3.5 % (2.0-10.0) 02/04/18 05:37 Eosinophils % 1.0 % (0.0-5.0) 02/04/18 05:37 Basophils % 0.7 % (0.0-2.0) 02/04/18 05:37 Eos Smear Source URINE 02/02/18 23:10 Eos Smear Total Cells NONE SEEN (NONE SEEN) 02/02/18 23:10 PT 10.0 SECONDS (9.5-11.5) 02/01/18 21:30 INR 0.96 (0.5-1.4) 02/01/18 21:30 PTT (Actin FS) 18.5 SECONDS (26.0-38.0) L 02/01/18 21:30 Sodium 138 mEq/L (136-145) 02/04/18 05:37 Potassium 3.6 mEq/L (3.5-5.1) 02/04/18 05:37 Chloride 100 mEq/L (98-107) 02/04/18 05:37 Carbon Dioxide 29.2 mEq/L (21.0-31.0) 02/04/18 05:37 Anion Gap 12.4 (7.0-16.0) 02/04/18 05:37 BUN 64 mg/dL (7-25) H 02/04/18 05:37 Creatinine 1.3 mg/dL (0.6-1.2) H 02/04/18 05:37 Est GFR ( Amer) TNP 02/04/18 05:37 Est GFR (Non-Af Amer) TNP 02/04/18 05:37 BUN/Creatinine Ratio 49.2 02/04/18 05:37 Glucose 181 mg/dL (70-105) H 02/04/18 05:37 POC Glucose 122 MG/DL (70 - 105) H 02/04/18 11:22 Whole Bld Lactic Acid 1.04 mmol/L (0.60-1.99) 02/01/18 21:30 Uric Acid 8.7 mg/dL (2.3-6.6) H 02/03/18 05:45 Calcium 9.2 mg/dL (8.6-10.3) 02/04/18 05:37 Phosphorus 3.0 mg/dL (2.5-5.0) 02/03/18 05:45 Magnesium 2.2 mg/dL (1.9-2.7) 02/04/18 05:37 Total Bilirubin 0.2 mg/dL (0.3-1.0) L 02/01/18 21:30 AST 17 U/L (13-39) 02/01/18 21:30 ALT 16 U/L (7-52) 02/01/18 21:30 Alkaline Phosphatase 79 U/L (34-104) 02/01/18 21:30 Ammonia 51 umol/L (16-53) 02/02/18 11:55 Creatine Kinase 25 U/L (30-223) L 02/01/18 21:30 Troponin I 0.03 ng/mL (0.01-0.05) 02/01/18 21:30 B-Natriuretic Peptide 106.0 pg/mL (5.0-100.0) H 02/04/18 05:37 Total Protein 6.9 gm/dL (6.0-8.3) 02/01/18 21:30 Albumin 3.3 gm/dL (3.7-5.3) L 02/01/18 21:30 Globulin 3.6 gm/dL 02/01/18 21:30 Albumin/Globulin Ratio 0.9 (1.0-1.8) L 02/01/18 21:30 TSH 2.52 uIU/ml (0.34-5.60) 02/03/18 05:45 Ur Random Sodium 40 mmol/L 02/02/18 23:10 Urine Creatinine 32.2 mg/dl 02/02/18 23:10 Urine Microalbumin 185.5 02/02/18 23:10 Microalb/Creat Ratio 576.1 02/02/18 23:10 Stool Occult Blood POSITIVE (NEGATIVE) H 02/04/18 05:00 - Physical Exam Vitals and I&O: Vital Signs Temp 97.0 F 02/04/18 11:48 Pulse 72 02/04/18 11:48 Resp 17 02/04/18 13:16 BP 140/72 02/04/18 11:48 Pulse Ox 98 02/04/18 11:48 Intake & Output 02/03/18 02/04/18 02/04/18 18:59 06:59 18:59 Intake Total 0 8359.242 6720 Balance 0 5473.800 0604 Weight (lbs) 51.573 kg Intake: Intake, IV Amount 0 098.701 5495 Dextrose 5% 1,000 ml @ 920.669 4672 100 mls/hr IV .Q10H ED Rx#:[id number] Dextrose 5% 1,000 ml @ 0 125 mls/hr IV .Q8H ED Rx #:[id number] Tube Feeding 804 Other 100 Other: # Voids 2 # Bowel Movements 1 Weight Source Bedscale Active Medications: Current Medications Amlodipine Besylate (Norvasc) 10 mg GT DAILY ED Stop: 04/03/18 08:59 Last Admin: 02/04/18 08:30 Dose: 10 mg Ascorbic Acid (Vitamin C) 500 mg GT BID ED Stop: 04/03/18 08:59 Last Admin: 02/04/18 08:30 Dose: 500 mg Glucagon (Glucagen) 1 mg SUBQ PRN PRN PRN Reason: BS BELOW 60 & NOT TOLERATE PO Stop: 03/03/18 23:38 Haloperidol Decanoate (Haldol Dec) 25 mg IM [id number] [facility] Stop: 04/02/18 23:44 Dextrose (D5w) 1,000 mls @ 70 mls/hr IV .[id number] [facility] Stop: 04/05/18 13:14 Insulin Aspart (Novolog Insulin Sliding Scale) 0 units SUBQ Q6HR [facility]; Protocol Stop: 04/03/18 00:59 Last Admin: 02/04/18 11:35 Dose: Not Given Mirtazapine (Remeron) 15 mg GT HS [facility]; Protocol Stop: 04/03/18 20:59 Multivitamins/Minerals (Theragran M) 15 ml GT DAILY [facility] Stop: 04/03/18 08:59 Last Admin: 02/04/18 08:29 Dose: 15 ml Pantoprazole Sodium (Protonix) 40 mg GT DAILY@1200 [facility] Stop: 04/03/18 11:59 Last Admin: 02/04/18 11:50 Dose: 40 mg General: No acute distress HEENT: Atraumatic, Mucous membr. moist/pink Neck: Supple, +2 carotid pulse wo bruit Cardiovascular: Regular rate, Normal S1, Normal S2 Lungs: Clear to auscultation Abdomen: Bowel sounds, Soft Extremities: no Edema Neurological: Sensation intact Psych/Mental Status: Mood NL - Procedures Procedures: Procedures Procedure Code Date EGD PLACE GASTROSTOMY TUBE 74368 06/21/17 EXCISION OF ASCENDING COLON, ENDO, DIAGN [id number] 06/21/17 EXCISION OF CECUM, ENDO, DIAGN [id number] 06/21/17 EXCISION OF SIGMOID COLON, ENDO, DIAGN [id number] 06/21/17 EXCISION OF STOMACH, ENDO, DIAGN [id number] 06/21/17 INSERTION OF FEEDING DEVICE INTO STOMACH, PERC APPROACH [id number] 06/21/17 INSERTION OF INFUSION DEV INTO SUP VENA CAVA, PERC APPROACH [id number] 06/21/17 INTRODUCTION OF NUTRITIONAL INTO CENTRAL VEIN, PERC APPROACH [id number] 06/21/17 PARTIAL REMOVAL OF COLON 60141 06/21/17 RESECTION OF RIGHT LARGE INTESTINE, OPEN APPROACH [id number] 06/21/17 RESPIRATORY VENTILATION, LESS THAN 24 CONSECUTIVE HOURS [id number] 06/21/17 TRANSFUSE NONAUT RED BLOOD CELLS IN PERIPH VEIN, PERC 96853G8 11/16/17 Assessment/Plan - Assessment Assessment: LEONIE on CKD ALOC Met Enceph Contraction Alk Severe Dehydration T2DM w/ CKD Ess Htn w/ CKD Anemia of CD - Plan Plan: Lab - Result Diagrams 02/03/18 05:45 02/03/18 05:45 Current Medications Amlodipine Besylate (Norvasc) 10 mg GT DAILY ED Stop: 04/03/18 08:59 Last Admin: 02/03/18 09:45 Dose: 10 mg Ascorbic Acid (Vitamin C) 500 mg GT BID ED Stop: 04/03/18 08:59 Last Admin: 02/03/18 09:43 Dose: 500 mg Glucagon (Glucagen) 1 mg SUBQ PRN PRN PRN Reason: BS BELOW 60 & NOT TOLERATE PO Stop: 03/03/18 23:38 Haloperidol Decanoate (Haldol Dec) 25 mg IM [id number] ED Stop: 04/02/18 23:44 Dextrose (D5w) 1,000 mls @ 125 mls/hr IV .Q8H ED Stop: 04/03/18 01:59 Last Infusion: 02/03/18 10:30 Dose: 125 mls/hr Insulin Aspart (Novolog Insulin Sliding Scale) 0 units SUBQ Q6HR ED; Protocol Stop: 04/03/18 00:59 Last Admin: 02/03/18 12:23 Dose: Not Given Mirtazapine (Remeron) 15 mg GT HS ED; Protocol Stop: 04/03/18 20:59 Multivitamins/Minerals (Theragran M) 15 ml GT DAILY ED Stop: 04/03/18 08:59 Last Admin: 02/03/18 09:42 Dose: 15 ml Pantoprazole Sodium (Protonix) 40 mg GT DAILY@1200 ED Stop: 04/03/18 11:59 Last Admin: 02/03/18 13:18 Dose: 40 mg Lab - Result Diagrams 02/04/18 05:37 02/04/18 05:37 Na down to 138 Kidney fnc improved to BUN/CR of 64/1.3 continue hydration may need transfusion Nutritional Asmnt/Malnutr-PDOC - Dietary Evaluation Malnutrition Findings (Please click <Entered> for more info): Nutritional Asmnt/Malnutrition Start: 02/03/18 17: 04 Text: Status: Complete Freq: Protocol: Document 02/03/18 17:10 GRISELDA (Rec: 02/03/18 17:37 GRISELDA [email or web address]) Nutritional Asmnt/Malnutrition Patient General Information Nutritional Screening High Risk Diagnosis acute renal failure Pertinent Medical Hx/Surgical Hx HTN, DM, dyslipidemia, demntia , acute renal insufficiency, CHF Subjective Information Consult received for non intact wound. Pt seen lying in bed at time of visit, nonverbal. Verified glucerna 1 .2 running at 67ml/hr at this time. Current Diet Order/ Nutrition Support glucerna 1.2 at 67ml/hr x 20hr , providing 1608kcal and 80g protein Pertinent Medications vit C, novolog, remeron, theragran, protonix Pertinent Labs 02/03 Na 148, BUN 85, Cr 1.4, glucose 159, POC 132-148 Nutritional Hx/Data Height 1.6 m Height (Calculated Centimeters) 160.0 Current Weight (lbs) 49.895 kg Weight (Calculated Kilograms) 49.9 Weight (Calculated Grams) 16255.2 [place] Body Weight 115 Body Mass Index (BMI) 19.5 Weight Status Approriate GI Symptoms GI Symptoms None Last BM 02/03 Difficult in: None Skin Integrity/Comment: non intact skin to sacral area per wound care note benji 10 Estimated Nutritional Goals BEE in Kcals: Using Current wt Calories/Kcals/Kg 27-32 Kcals Calculated 6816-0463 Protein: Using Current wt Protein g/k.2-1.4 monitor renal labs Protein Calculated 60-70 Fluid: ml per MD Nutritional Problem 2. Problem Problem increased nutrition needs Etiology imparied skin integrity Signs/Symptoms: non intact wound to sacral area 1. Problem Problem altered nutrition related labs Etiology acute renal failure, hx of DM Signs/Symptoms: Na 148, BUN 85, Cr 1.4, glucose 159, POC 132-148 Malnutrition Alert Is there a minimum of two criteria No selected? Query Text:Check all the applicable criteria. A minimum of two criteria are recommended for diagnosis of either severe or non-severe malnutrition. Malnutrition Related to Morbid Obesity Malnutrition related to morbid obesity No Intervention/Recommendation Comments 1. Recommend decreasing Glucerna 1.2 rate to 60ml/hr x 20hr considering elevated BUN and excesive protein intake. It provides 1608kcal, 80g protein, 888ml free water, meeting 100% of nutritional needs 2. Consider adding Amrit BID via Gtube to help with wound healing. 3. Monitor TF rate, tolerance, wt, skin integrity and labs 4. F/U as high risk in 2-3 days, 02/05-02/06 Expected Outcomes/Goals Expected Outcomes/Goals 1. Pt to meet at least 75% of nutritional needs via nutrition support with tolerance 2. Wt stability, skin integrity to improve., labs to approach WNL.
[2018-02-05] MEDS: INSULIN ASPART SLIDING SCALE 100 UNITS/ML UNIT SUBQ SCH ×4 (00:57→19:31)
[2018-02-05] MEDS: Dextrose 5% 1,000 ML IV SCH ×2 (00:59→18:39)
[2018-02-05 06:53] LABS: MEAN CELL VOLUME 87.1 fl (81-100); MEAN CORPUSCULAR HEMOGLOBIN 28.4 pg (27.0-31.0); MEAN CORPUSCULAR HGB CONC 32.6 pg (28.0-36.0); MEAN PLATELET VOLUME 10.2 fl; PLATELET COUNT 191 Th/cmm (150-400); RED BLOOD COUNT 2.37 Mil/cmm (3.80-5.20); RED CELL DISTRIBUTION WIDTH 16.5 % (11.5-20.0); WHITE BLOOD COUNT 5.4 Th/cmm (4.8-10.8)
[2018-02-05 07:02] LABS: ANION GAP 9.6 (7.0-16.0); BUN - UREA NITROGEN 55 mg/dL (7-25); CALCIUM SERUM 8.8 mg/dL (8.6-10.3); CARBON DIOXIDE 32.7 mEq/L (21.0-31.0); CHLORIDE 102 mEq/L (98-107); CREATININE - SERUM 1.2 mg/dL (0.6-1.2); GLUCOSE 147 mg/dL (70-105); POTASSIUM SERUM 3.3 mEq/L (3.5-5.1); SODIUM SERUM 141 mEq/L (136-145)
[2018-02-05 07:16] LABS: HEMATOCRIT 20.6 % (41.0-60)
[2018-02-05 07:27] LABS: BAND NEUTROPHILE 0 % (0-10); BASOPHIL 0 % (0-3); EOSINOPHIL 1 % (0-5); LYMPHOCYTE 33 % (20-50); MONOCYTE 5 % (2-10); NEUTROPHILS 61 % (40-80)
[2018-02-05 07:28] LABS: HYPOCHROMIA 1+
[2018-02-05 07:33] LABS: HEMOGLOBIN 6.7 gm/dL (12-16)
[2018-02-05] MEDS: Multivitamin w/ Minerals 15 mL UDC GT SCH (09:16)
--- NOTE | 2018-02-05 12:24 | General Progress Note ---
Subjective - Review of Systems Service Date: 02/05/18 Subjective: sleeping, comfortable Objective - Results Result Diagrams: 02/05/18 06:09 02/05/18 06:09 Recent Labs: Laboratory Last Values WBC 5.4 Th/cmm (4.8-10.8) 02/05/18 06:09 RBC 2.37 Mil/cmm (3.80-5.20) L 02/05/18 06:09 Hgb 6.7 gm/dL (12-16) L* 02/05/18 06:09 Hct 20.6 % (41.0-60) L* 02/05/18 06:09 MCV 87.1 fl (81-100) 02/05/18 06:09 MCH 28.4 pg (27.0-31.0) 02/05/18 06:09 MCHC Differential 32.6 pg (28.0-36.0) 02/05/18 06:09 RDW 16.5 % (11.5-20.0) 02/05/18 06:09 Plt Count 191 Th/cmm (150-400) 02/05/18 06:09 MPV 10.2 fl 02/05/18 06:09 Add Manual Diff YES 02/05/18 06:09 Neutrophils % 79.3 % (40.0-80.0) 02/04/18 05:37 Band Neutrophils % 0 % (0-10) 02/05/18 06:09 Lymphocytes % 15.5 % (20.0-50.0) L 02/04/18 05:37 Monocytes % 3.5 % (2.0-10.0) 02/04/18 05:37 Eosinophils % 1.0 % (0.0-5.0) 02/04/18 05:37 Basophils % 0.7 % (0.0-2.0) 02/04/18 05:37 Neutrophils (Manual) 61 % (40-80) 02/05/18 06:09 Lymphocytes 33 % (20-50) 02/05/18 06:09 Monocytes 5 % (2-10) 02/05/18 06:09 Eosinophils 1 % (0-5) 02/05/18 06:09 Basophils 0 % (0-3) 02/05/18 06:09 Hypochromia 1+ 02/05/18 06:09 Eos Smear Source URINE 02/02/18 23:10 Eos Smear Total Cells NONE SEEN (NONE SEEN) 02/02/18 23:10 PT 10.0 SECONDS (9.5-11.5) 02/01/18 21:30 INR 0.96 (0.5-1.4) 02/01/18 21:30 PTT (Actin FS) 18.5 SECONDS (26.0-38.0) L 02/01/18 21:30 Sodium 141 mEq/L (136-145) 02/05/18 06:09 Potassium 3.3 mEq/L (3.5-5.1) L 02/05/18 06:09 Chloride 102 mEq/L (98-107) 02/05/18 06:09 Carbon Dioxide 32.7 mEq/L (21.0-31.0) H 02/05/18 06:09 Anion Gap 9.6 (7.0-16.0) 02/05/18 06:09 BUN 55 mg/dL (7-25) H 02/05/18 06:09 Creatinine 1.2 mg/dL (0.6-1.2) 02/05/18 06:09 Est GFR ( Amer) TNP 02/05/18 06:09 Est GFR (Non-Af Amer) TNP 02/05/18 06:09 BUN/Creatinine Ratio 45.8 02/05/18 06:09 Glucose 147 mg/dL (70-105) H 02/05/18 06:09 POC Glucose 95 MG/DL (70 - 105) 02/05/18 11:24 Whole Bld Lactic Acid 1.04 mmol/L (0.60-1.99) 02/01/18 21:30 Uric Acid 8.7 mg/dL (2.3-6.6) H 02/03/18 05:45 Calcium 8.8 mg/dL (8.6-10.3) 02/05/18 06:09 Phosphorus 3.0 mg/dL (2.5-5.0) 02/03/18 05:45 Magnesium 2.2 mg/dL (1.9-2.7) 02/04/18 05:37 Total Bilirubin 0.2 mg/dL (0.3-1.0) L 02/01/18 21:30 AST 17 U/L (13-39) 02/01/18 21:30 ALT 16 U/L (7-52) 02/01/18 21:30 Alkaline Phosphatase 79 U/L (34-104) 02/01/18 21:30 Ammonia 51 umol/L (16-53) 02/02/18 11:55 Creatine Kinase 25 U/L (30-223) L 02/01/18 21:30 Troponin I 0.03 ng/mL (0.01-0.05) 02/01/18 21:30 B-Natriuretic Peptide 106.0 pg/mL (5.0-100.0) H 02/04/18 05:37 Total Protein 6.9 gm/dL (6.0-8.3) 02/01/18 21:30 Albumin 3.3 gm/dL (3.7-5.3) L 02/01/18 21:30 Globulin 3.6 gm/dL 02/01/18 21:30 Albumin/Globulin Ratio 0.9 (1.0-1.8) L 02/01/18 21:30 TSH 2.52 uIU/ml (0.34-5.60) 02/03/18 05:45 Ur Random Sodium 40 mmol/L 02/02/18 23:10 Urine Creatinine 32.2 mg/dl 02/02/18 23:10 Urine Microalbumin 185.5 02/02/18 23:10 Microalb/Creat Ratio 576.1 02/02/18 23:10 Stool Occult Blood POSITIVE (NEGATIVE) H 02/04/18 05:00 Blood Type O POSITIVE 02/05/18 08:36 Antibody Screen NEGATIVE 02/05/18 08:36 Crossmatch See Detail 02/05/18 08:36 - Physical Exam Vitals and I&O: Vital Signs Temp 96.4 F 02/05/18 11:42 Pulse 72 02/05/18 11:42 Resp 17 02/05/18 11:42 BP 148/73 02/05/18 11:42 Pulse Ox 99 02/05/18 11:42 Intake & Output 02/04/18 02/05/18 02/05/18 18:59 06:59 18:59 Intake Total 1000 1607 Output Total 3 Balance 1000 1604 Weight (lbs) 54.522 kg Intake: Intake, IV Amount 1000 Dextrose 5% 1,000 ml @ 1000 100 mls/hr IV .Q10H [facility] Rx#:[id number] Tube Feeding 1407 Other 200 Output: Urine/Stool Mix 3 Other: # Voids 3 # Bowel Movements 1 Weight Source Bedscale Active Medications: Current Medications Amlodipine Besylate (Norvasc) 10 mg GT DAILY [facility] Stop: 04/03/18 08:59 Last Admin: 02/05/18 09:16 Dose: 10 mg Ascorbic Acid (Vitamin C) 500 mg GT BID [facility] Stop: 04/03/18 08:59 Last Admin: 02/05/18 09:16 Dose: 500 mg Glucagon (Glucagen) 1 mg SUBQ PRN PRN PRN Reason: BS BELOW 60 & NOT TOLERATE PO Stop: 03/03/18 23:38 Haloperidol Decanoate (Haldol Dec) 25 mg IM [id number] [facility] Stop: 04/02/18 23:44 Dextrose (D5w) 1,000 mls @ 70 mls/hr IV .[id number] [facility] Stop: 04/05/18 13:14 Last Admin: 02/05/18 00:59 Dose: 70 mls/hr Insulin Aspart (Novolog Insulin Sliding Scale) 0 units SUBQ Q6HR [facility]; Protocol Stop: 04/03/18 00:59 Last Admin: 02/05/18 11:44 Dose: Not Given Mirtazapine (Remeron) 15 mg GT HS [facility]; Protocol Stop: 04/03/18 20:59 Multivitamins/Minerals (Theragran M) 15 ml GT DAILY [facility] Stop: 04/03/18 08:59 Last Admin: 02/05/18 09:16 Dose: 15 ml Pantoprazole Sodium (Protonix) 40 mg GT DAILY@1200 [facility] Stop: 04/03/18 11:59 Last Admin: 02/04/18 11:50 Dose: 40 mg General: No acute distress HEENT: Atraumatic, Mucous membr. moist/pink Neck: Supple, +2 carotid pulse wo bruit Cardiovascular: Regular rate, Normal S1, Normal S2 Lungs: Clear to auscultation Abdomen: Bowel sounds, Soft Extremities: no Edema Neurological: Sensation intact Psych/Mental Status: Mood NL - Procedures Procedures: Procedures Procedure Code Date EGD PLACE GASTROSTOMY TUBE 83999 06/21/17 EXCISION OF ASCENDING COLON, ENDO, DIAGN [id number] 06/21/17 EXCISION OF CECUM, ENDO, DIAGN [id number] 06/21/17 EXCISION OF SIGMOID COLON, ENDO, DIAGN [id number] 06/21/17 EXCISION OF STOMACH, ENDO, DIAGN [id number] 06/21/17 INSERTION OF FEEDING DEVICE INTO STOMACH, PERC APPROACH [id number] 06/21/17 INSERTION OF INFUSION DEV INTO SUP VENA CAVA, PERC APPROACH [id number] 06/21/17 INTRODUCTION OF NUTRITIONAL INTO CENTRAL VEIN, PERC APPROACH 3H9920X 06/21/17 PARTIAL REMOVAL OF COLON 81528 06/21/17 RESECTION OF RIGHT LARGE INTESTINE, OPEN APPROACH 9HPU3SD 06/21/17 RESPIRATORY VENTILATION, LESS THAN 24 CONSECUTIVE HOURS [id number] 06/21/17 TRANSFUSE NONAUT RED BLOOD CELLS IN PERIPH VEIN, PERC 96127T8 11/16/17 Assessment/Plan - Assessment Assessment: LEONIE on CKD ALOC Met Enceph Contraction Alk Severe Dehydration T2DM w/ CKD Ess Htn w/ CKD Anemia Acute LGI bleed on CD - Plan Plan: Lab - Result Diagrams 02/03/18 05:45 02/03/18 05:45 Current Medications Amlodipine Besylate (Norvasc) 10 mg GT DAILY ED Stop: 04/03/18 08:59 Last Admin: 02/03/18 09:45 Dose: 10 mg Ascorbic Acid (Vitamin C) 500 mg GT BID ED Stop: 04/03/18 08:59 Last Admin: 02/03/18 09:43 Dose: 500 mg Glucagon (Glucagen) 1 mg SUBQ PRN PRN PRN Reason: BS BELOW 60 & NOT TOLERATE PO Stop: 03/03/18 23:38 Haloperidol Decanoate (Haldol Dec) 25 mg IM [id number] ED Stop: 04/02/18 23:44 Dextrose (D5w) 1,000 mls @ 125 mls/hr IV .Q8H ED Stop: 04/03/18 01:59 Last Infusion: 02/03/18 10:30 Dose: 125 mls/hr Insulin Aspart (Novolog Insulin Sliding Scale) 0 units SUBQ Q6HR ED; Protocol Stop: 04/03/18 00:59 Last Admin: 02/03/18 12:23 Dose: Not Given Mirtazapine (Remeron) 15 mg GT HS ED; Protocol Stop: 04/03/18 20:59 Multivitamins/Minerals (Theragran M) 15 ml GT DAILY ED Stop: 04/03/18 08:59 Last Admin: 02/03/18 09:42 Dose: 15 ml Pantoprazole Sodium (Protonix) 40 mg GT DAILY@1200 ED Stop: 04/03/18 11:59 Last Admin: 02/03/18 13:18 Dose: 40 mg Lab - Result Diagrams 02/05/18 06:09 02/05/18 06:09 Na up to 141 replace K Kidney fnc improved w/ BUN/CR of 55/1.2 continue hydration for transfusion today f/u electrolytes, Mg Nutritional Asmnt/Malnutr-PDOC - Dietary Evaluation Malnutrition Findings (Please click <Entered> for more info): Nutritional Asmnt/Malnutrition Start: 02/03/18 17: 04 Text: Status: Complete Freq: Protocol: Document 02/03/18 17:10 GRISELDA (Rec: 02/03/18 17:37 GRISELDA [email or web address]) Nutritional Asmnt/Malnutrition Patient General Information Nutritional Screening High Risk Diagnosis acute renal failure Pertinent Medical Hx/Surgical Hx HTN, DM, dyslipidemia, demntia , acute renal insufficiency, CHF Subjective Information Consult received for non intact wound. Pt seen lying in bed at time of visit, nonverbal. Verified glucerna 1 .2 running at 67ml/hr at this time. Current Diet Order/ Nutrition Support glucerna 1.2 at 67ml/hr x 20hr , providing 1608kcal and 80g protein Pertinent Medications vit C, novolog, remeron, theragran, protonix Pertinent Labs 02/03 Na 148, BUN 85, Cr 1.4, glucose 159, POC 132-148 Nutritional Hx/Data Height 1.6 m Height (Calculated Centimeters) 160.0 Current Weight (lbs) 49.895 kg Weight (Calculated Kilograms) 49.9 Weight (Calculated Grams) 76680.2 [place] Body Weight 115 Body Mass Index (BMI) 19.5 Weight Status Approriate GI Symptoms GI Symptoms None Last BM 02/03 Difficult in: None Skin Integrity/Comment: non intact skin to sacral area per wound care note benji 10 Estimated Nutritional Goals BEE in Kcals: Using Current wt Calories/Kcals/Kg 27-32 Kcals Calculated 5750-4402 Protein: Using Current wt Protein g/k.2-1.4 monitor renal labs Protein Calculated 60-70 Fluid: ml per MD Nutritional Problem 2. Problem Problem increased nutrition needs Etiology imparied skin integrity Signs/Symptoms: non intact wound to sacral area 1. Problem Problem altered nutrition related labs Etiology acute renal failure, hx of DM Signs/Symptoms: Na 148, BUN 85, Cr 1.4, glucose 159, POC 132-148 Malnutrition Alert Is there a minimum of two criteria No selected? Query Text:Check all the applicable criteria. A minimum of two criteria are recommended for diagnosis of either severe or non-severe malnutrition. Malnutrition Related to Morbid Obesity Malnutrition related to morbid obesity No Intervention/Recommendation Comments 1. Recommend decreasing Glucerna 1.2 rate to 60ml/hr x 20hr considering elevated BUN and excesive protein intake. It provides 1608kcal, 80g protein, 888ml free water, meeting 100% of nutritional needs 2. Consider adding Amrit BID via Gtube to help with wound healing. 3. Monitor TF rate, tolerance, wt, skin integrity and labs 4. F/U as high risk in 2-3 days, 02/05-02/06 Expected Outcomes/Goals Expected Outcomes/Goals 1. Pt to meet at least 75% of nutritional needs via nutrition support with tolerance 2. Wt stability, skin integrity to improve., labs to approach WNL.
[2018-02-05] MEDS ORDERED: Potassium Chloride Elixir 20 mEq /15 mL UDC GT ONE (12:25)
[2018-02-05] MEDS: Pantoprazole 40 mg/Packet GT SCH (13:43)
--- NOTE | 2018-02-05 16:20 | Internal Medicine Prog Note ---
Internal Medicine Subjective - Subjective Service Date: 02/05/18 Patient is:: asleep, non-verbal Patient Complaints of:: congestion Per staff patient has:: tolerating meds Internal Medicine Objective - Results Result Diagrams: 02/05/18 06:09 02/05/18 06:09 Recent Labs: Laboratory Last Values WBC 5.4 Th/cmm (4.8-10.8) 02/05/18 06:09 RBC 2.37 Mil/cmm (3.80-5.20) L 02/05/18 06:09 Hgb 6.7 gm/dL (12-16) L* 02/05/18 06:09 Hct 20.6 % (41.0-60) L* 02/05/18 06:09 MCV 87.1 fl (81-100) 02/05/18 06:09 MCH 28.4 pg (27.0-31.0) 02/05/18 06:09 MCHC Differential 32.6 pg (28.0-36.0) 02/05/18 06:09 RDW 16.5 % (11.5-20.0) 02/05/18 06:09 Plt Count 191 Th/cmm (150-400) 02/05/18 06:09 MPV 10.2 fl 02/05/18 06:09 Add Manual Diff YES 02/05/18 06:09 Neutrophils % 79.3 % (40.0-80.0) 02/04/18 05:37 Band Neutrophils % 0 % (0-10) 02/05/18 06:09 Lymphocytes % 15.5 % (20.0-50.0) L 02/04/18 05:37 Monocytes % 3.5 % (2.0-10.0) 02/04/18 05:37 Eosinophils % 1.0 % (0.0-5.0) 02/04/18 05:37 Basophils % 0.7 % (0.0-2.0) 02/04/18 05:37 Neutrophils (Manual) 61 % (40-80) 02/05/18 06:09 Lymphocytes 33 % (20-50) 02/05/18 06:09 Monocytes 5 % (2-10) 02/05/18 06:09 Eosinophils 1 % (0-5) 02/05/18 06:09 Basophils 0 % (0-3) 02/05/18 06:09 Hypochromia 1+ 02/05/18 06:09 Eos Smear Source URINE 02/02/18 23:10 Eos Smear Total Cells NONE SEEN (NONE SEEN) 02/02/18 23:10 PT 10.0 SECONDS (9.5-11.5) 02/01/18 21:30 INR 0.96 (0.5-1.4) 02/01/18 21:30 PTT (Actin FS) 18.5 SECONDS (26.0-38.0) L 02/01/18 21:30 Sodium 141 mEq/L (136-145) 02/05/18 06:09 Potassium 3.3 mEq/L (3.5-5.1) L 02/05/18 06:09 Chloride 102 mEq/L (98-107) 02/05/18 06:09 Carbon Dioxide 32.7 mEq/L (21.0-31.0) H 02/05/18 06:09 Anion Gap 9.6 (7.0-16.0) 02/05/18 06:09 BUN 55 mg/dL (7-25) H 02/05/18 06:09 Creatinine 1.2 mg/dL (0.6-1.2) 02/05/18 06:09 Est GFR ( Amer) TNP 02/05/18 06:09 Est GFR (Non-Af Amer) TNP 02/05/18 06:09 BUN/Creatinine Ratio 45.8 02/05/18 06:09 Glucose 147 mg/dL (70-105) H 02/05/18 06:09 POC Glucose 95 MG/DL (70 - 105) 02/05/18 11:24 Whole Bld Lactic Acid 1.04 mmol/L (0.60-1.99) 02/01/18 21:30 Uric Acid 8.7 mg/dL (2.3-6.6) H 02/03/18 05:45 Calcium 8.8 mg/dL (8.6-10.3) 02/05/18 06:09 Phosphorus 3.0 mg/dL (2.5-5.0) 02/03/18 05:45 Magnesium 2.2 mg/dL (1.9-2.7) 02/04/18 05:37 Total Bilirubin 0.2 mg/dL (0.3-1.0) L 02/01/18 21:30 AST 17 U/L (13-39) 02/01/18 21:30 ALT 16 U/L (7-52) 02/01/18 21:30 Alkaline Phosphatase 79 U/L (34-104) 02/01/18 21:30 Ammonia 51 umol/L (16-53) 02/02/18 11:55 Creatine Kinase 25 U/L (30-223) L 02/01/18 21:30 Troponin I 0.03 ng/mL (0.01-0.05) 02/01/18 21:30 B-Natriuretic Peptide 106.0 pg/mL (5.0-100.0) H 02/04/18 05:37 Total Protein 6.9 gm/dL (6.0-8.3) 02/01/18 21:30 Albumin 3.3 gm/dL (3.7-5.3) L 02/01/18 21:30 Globulin 3.6 gm/dL 02/01/18 21:30 Albumin/Globulin Ratio 0.9 (1.0-1.8) L 02/01/18 21:30 TSH 2.52 uIU/ml (0.34-5.60) 02/03/18 05:45 Urine Osmolality 472 mOsmol/kg 02/02/18 23:10 Ur Random Sodium 40 mmol/L 02/02/18 23:10 Urine Creatinine 32.2 mg/dl 02/02/18 23:10 Urine Microalbumin 185.5 02/02/18 23:10 Microalb/Creat Ratio 576.1 02/02/18 23:10 Stool Occult Blood POSITIVE (NEGATIVE) H 02/04/18 05:00 Blood Type O POSITIVE 02/05/18 08:36 Antibody Screen NEGATIVE 02/05/18 08:36 Crossmatch See Detail 02/05/18 08:36 - Physical Exam Vitals and I&O: Vital Signs Temp 96.7 F 02/05/18 16:11 Pulse 70 02/05/18 16:11 Resp 17 02/05/18 16:11 BP 145/71 02/05/18 16:11 Pulse Ox 99 02/05/18 16:11 Intake & Output 09/08/18 09/09/18 09/09/18 18:59 06:59 18:59 Intake Total 1000 1607 Output Total 3 Balance 1000 1604 Weight (lbs) 120 lb 3.2 oz Intake: Intake, IV Amount 1000 Dextrose 5% 1,000 ml @ 1000 100 mls/hr IV .Q10H [facility] Rx#:[id number] Tube Feeding 1407 Other 200 Output: Urine/Stool Mix 3 Other: # Voids 3 # Bowel Movements 1 Weight Source Bedscale Active Medications: Current Medications Amlodipine Besylate (Norvasc) 10 mg GT DAILY [facility] [place] Stop: 04/03/18 08:59 Last Admin: 02/05/18 09:16 Dose: 10 mg Ascorbic Acid (Vitamin C) 500 mg GT BID [facility] [place] Stop: 04/03/18 08:59 Last Admin: 02/05/18 09:16 Dose: 500 mg Glucagon (Glucagen) 1 mg SUBQ PRN PRN PRN Reason: BS BELOW 60 & NOT TOLERATE PO Stop: 03/03/18 23:38 Haloperidol Decanoate (Haldol Dec) 25 mg IM [id number] [facility] [place] Stop: 04/02/18 23:44 Dextrose (D5w) 1,000 mls @ 70 mls/hr IV .[id number] [facility] [place] Stop: 04/05/18 13:14 Last Admin: 02/05/18 00:59 Dose: 70 mls/hr Insulin Aspart (Novolog Insulin Sliding Scale) 0 units SUBQ Q6HR [facility] [place]; Protocol Stop: 04/03/18 00:59 Last Admin: 02/05/18 11:44 Dose: Not Given Mirtazapine (Remeron) 15 mg GT HS [facility] [place]; Protocol Stop: 04/03/18 20:59 Multivitamins/Minerals (Theragran M) 15 ml GT DAILY [facility] [place] Stop: 04/03/18 08:59 Last Admin: 02/05/18 09:16 Dose: 15 ml Pantoprazole Sodium (Protonix) 40 mg GT DAILY@1200 [facility] [place] Stop: 04/03/18 11:59 Last Admin: 02/05/18 13:43 Dose: 40 mg General: weak HEENT: NC/AT, PERRLA Neck: Supple Cardiovascular: RRR, Normal S1, Normal S2 Abdomen: soft, non-tender, non-distended, +GT - Procedures Procedures: Procedures Procedure Code Date EGD PLACE GASTROSTOMY TUBE 93333 06/21/17 EXCISION OF ASCENDING COLON, ENDO, DIAGN [id number] 06/21/17 EXCISION OF CECUM, ENDO, DIAGN 3DVN8PE 06/21/17 EXCISION OF SIGMOID COLON, ENDO, DIAGN 2XYF8ZV 06/21/17 EXCISION OF STOMACH, ENDO, DIAGN [id number] 06/21/17 INSERTION OF FEEDING DEVICE INTO STOMACH, PERC APPROACH 7KQ03VB 06/21/17 INSERTION OF INFUSION DEV INTO SUP VENA CAVA, PERC APPROACH 44YJ97E 06/21/17 INTRODUCTION OF NUTRITIONAL INTO CENTRAL VEIN, PERC APPROACH 4X8995K 06/21/17 PARTIAL REMOVAL OF COLON 17486 06/21/17 RESECTION OF RIGHT LARGE INTESTINE, OPEN APPROACH [id number] 06/21/17 RESPIRATORY VENTILATION, LESS THAN 24 CONSECUTIVE HOURS 0W8950S 06/21/17 TRANSFUSE NONAUT RED BLOOD CELLS IN PERIPH VEIN, PERC 13188B7 11/16/17 Internal Medicine Assmt/Plan - Assessment Assessment: Severe dehydration, history of acute renal failure, diabetes, congestive heart failure, dementia, anxiety, stool ob positive . - Plan Plan: monitor h/h Monitor patient's BUN and creatinine closely. will follow ergonomics consultant recommendations cpm Nutritional Asmnt/Malnutr-PDOC - Dietary Evaluation Malnutrition Findings (Please click <Entered> for more info): Nutritional Asmnt/Malnutrition Start: 02/03/18 17: 04 Text: Status: Complete Freq: Protocol: Document 02/03/18 17:10 LCHENG (Rec: 02/03/18 17:37 LCHENG [email or web address]) Nutritional Asmnt/Malnutrition Patient General Information Nutritional Screening High Risk Diagnosis acute renal failure Pertinent Medical Hx/Surgical Hx HTN, DM, dyslipidemia, demntia , acute renal insufficiency, CHF Subjective Information Consult received for non intact wound. Pt seen lying in bed at time of visit, nonverbal. Verified glucerna 1 .2 running at 67ml/hr at this time. Current Diet Order/ Nutrition Support glucerna 1.2 at 67ml/hr x 20hr , providing 1608kcal and 80g protein Pertinent Medications vit C, novolog, remeron, theragran, protonix Pertinent Labs 02/03 Na 148, BUN 85, Cr 1.4, glucose 159, POC 132-148 Nutritional Hx/Data Height 5 ft 3 in Height (Calculated Centimeters) 160.0 Current Weight (lbs) 110 lb Weight (Calculated Kilograms) 49.9 Weight (Calculated Grams) 63311.2 [place] Body Weight 115 Body Mass Index (BMI) 19.5 Weight Status Approriate GI Symptoms GI Symptoms None Last BM 02/03 Difficult in: None Skin Integrity/Comment: non intact skin to sacral area per wound care note benji 10 Estimated Nutritional Goals BEE in Kcals: Using Current wt Calories/Kcals/Kg 27-32 Kcals Calculated 1140-0842 Protein: Using Current wt Protein g/k.2-1.4 monitor renal labs Protein Calculated 60-70 Fluid: ml per MD Nutritional Problem 2. Problem Problem increased nutrition needs Etiology imparied skin integrity Signs/Symptoms: non intact wound to sacral area 1. Problem Problem altered nutrition related labs Etiology acute renal failure, hx of DM Signs/Symptoms: Na 148, BUN 85, Cr 1.4, glucose 159, POC 132-148 Malnutrition Alert Is there a minimum of two criteria No selected? Query Text:Check all the applicable criteria. A minimum of two criteria are recommended for diagnosis of either severe or non-severe malnutrition. Malnutrition Related to Morbid Obesity Malnutrition related to morbid obesity No Intervention/Recommendation Comments 1. Recommend decreasing Glucerna 1.2 rate to 60ml/hr x 20hr considering elevated BUN and excesive protein intake. It provides 1608kcal, 80g protein, 888ml free water, meeting 100% of nutritional needs 2. Consider adding Amrit BID via [employer] to help with wound healing. 3. Monitor TF rate, tolerance, wt, skin integrity and labs 4. F/U as high risk in 2-3 days, 02/05-02/06 Expected Outcomes/Goals Expected Outcomes/Goals 1. Pt to meet at least 75% of nutritional needs via nutrition support with tolerance 2. Wt stability, skin integrity to improve., labs to approach WNL.
--- NOTE | 2018-02-05 22:47 | Consultation ---
DATE OF CONSULTATION: 02/05/2018 INPATIENT GASTROINTESTINAL CONSULTATION REFERRING PHYSICIAN: Dr. Tobias. REASON FOR CONSULTATION: Anemia, occult blood positive. HISTORY OF PRESENT ILLNESS: A 77-year-old female who was brought into the hospital with altered mental status. The patient is not a good historian. She was anemic and they tested her stool and found to be guaiac positive. However, per staff, the color of the stool was brown. There is no melena, hematochezia, hematemesis, or coffee ground emesis, no reports of any abdominal pain. The patient also has a G-tube in the residuals are without any signs of bleeding. PAST MEDICAL HISTORY: Hypertension, diabetes, hyperlipidemia, dementia, chronic kidney disease, congestive heart failure, anemia. PAST SURGICAL HISTORY: PEG tube placement. FAMILY HISTORY: Noncontributory. SOCIAL HISTORY: No tobacco, alcohol or IV drug usage. ALLERGIES: None. CURRENT MEDICATIONS: Norvasc, vitamin C, Haldol, insulin, Remeron, Protonix. REVIEW OF SYSTEMS: Unobtainable. PHYSICAL EXAMINATION: VITAL SIGNS: Temperature 96.1, breathing 18, pulse of 70, blood pressure 150/70, satting 99%. GENERAL: In no apparent distress. EYES: Anicteric. Normal conjunctivae. HEENT: Normocephalic, atraumatic. Moist mucous membranes. NECK: Soft, supple. CHEST: Clear. No effort. CARDIOVASCULAR: Regular rate and rhythm. ABDOMEN: Soft, nontender, nondistended with a G-tube. LABORATORY DATA: Show white count 5.4, hemoglobin 6.7, MCV of 87, platelets 191. BUN 55, creatinine 1.2. Stool OB positive. IMPRESSION: A 77-year-old female with anemia, occult blood positive. The patient has had numerous endoscopies and colonoscopy done recently. 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 Her colonoscopy showed polyps, diverticulosis and hemorrhoids. 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 There is no overt GI bleeding. PLAN: 1. Check a bleeding scan. 2. Get the formal report of the EGD, colonoscopy. 3. Follow H and H and transfuse as needed. 4. May need to evaluate the small bowel as a potential source of bleeding that could be missed from previous endoscopy, colonoscopy. Thank you for allowing me to participate. Please call me if any questions. JOB# [id number]
[2018-02-06] MEDS: INSULIN ASPART SLIDING SCALE 100 UNITS/ML UNIT SUBQ SCH ×4 (00:30→18:07)
[2018-02-06 05:38] LABS: % BASOPHILS 0.2 % (0.0-2.0); % EOSINOPHILS 3.4 % (0.0-5.0); % LYMPHOCYTES 21.9 % (20.0-50.0); % MONOCYTES 7.6 % (2.0-10.0); % NEUTROPHILS 66.9 % (40.0-80.0); EOSINOPHILE ABSOLUTE 0.2 Th/cmm (0.1-0.4); HEMATOCRIT 29.9 % (41.0-60); LYMPHOCYTE ABSOLUTE 1.6 Th/cmm (1.5-3.0); MEAN CELL VOLUME 85.5 fl (81-100); MEAN CORPUSCULAR HEMOGLOBIN 28.5 pg (27.0-31.0); MEAN CORPUSCULAR HGB CONC 33.3 pg (28.0-36.0); MEAN PLATELET VOLUME 10.6 fl; MONOCYTE ABSOLUTE 0.5 Th/cmm (0.3-1.0); NEUTROPHILE ABSOLUTE 4.9 Th/cmm (1.8-8.0); PLATELET COUNT 184 Th/cmm (150-400); RED CELL DISTRIBUTION WIDTH 16.3 % (11.5-20.0); WHITE BLOOD COUNT 7.2 Th/cmm (4.8-10.8)
[2018-02-06 05:47] LABS: ANION GAP 9.5 (7.0-16.0); BUN - UREA NITROGEN 49 mg/dL (7-25); CARBON DIOXIDE 32.3 mEq/L (21.0-31.0); CHLORIDE 103 mEq/L (98-107); CREATININE - SERUM 1.2 mg/dL (0.6-1.2); GLUCOSE 158 mg/dL (70-105); MAGNESIUM 2.1 mg/dL (1.9-2.7); POTASSIUM SERUM 3.8 mEq/L (3.5-5.1); SODIUM SERUM 141 mEq/L (136-145)
--- NOTE | 2018-02-06 07:55 | Diagnostic Imaging Report ---
Exam: Nuclear RBC scan HISTORY: GI bleeding. Findings: Utilizing 25.7 mCi of technetium 99 M tagged RBC examination of the abdomen was obtained. The study demonstrates no evidence for abnormal uptake of the radiopharmaceutical throughout the abdomen. There is no evidence for hemorrhage. The study is somewhat limited. IMPRESSION: No evidence of gastrointestinal hemorrhage.
[2018-02-06] MEDS: Multivitamin w/ Minerals 15 mL UDC GT SCH (09:05)
--- NOTE | 2018-02-06 11:47 | Internal Medicine Prog Note ---
Internal Medicine Subjective - Subjective Service Date: 02/06/18 Patient seen and examined:: with staff Patient is:: awake, non-verbal Patient Complaints of:: congestion Per staff patient has:: tolerating meds Internal Medicine Objective - Results Result Diagrams: 02/06/18 04:30 02/06/18 04:30 Recent Labs: Laboratory Last Values WBC 7.2 Th/cmm (4.8-10.8) D 02/06/18 04:30 RBC 3.50 Mil/cmm (3.80-5.20) L 02/06/18 04:30 Hgb 10.0 gm/dL (12-16) L D 02/06/18 04:30 Hct 29.9 % (41.0-60) L D 02/06/18 04:30 MCV 85.5 fl (81-100) 02/06/18 04:30 MCH 28.5 pg (27.0-31.0) 02/06/18 04:30 MCHC Differential 33.3 pg (28.0-36.0) 02/06/18 04:30 RDW 16.3 % (11.5-20.0) 02/06/18 04:30 Plt Count 184 Th/cmm (150-400) 02/06/18 04:30 MPV 10.6 fl 02/06/18 04:30 Add Manual Diff YES 02/05/18 06:09 Neutrophils % 66.9 % (40.0-80.0) 02/06/18 04:30 Band Neutrophils % 0 % (0-10) 02/05/18 06:09 Lymphocytes % 21.9 % (20.0-50.0) 02/06/18 04:30 Monocytes % 7.6 % (2.0-10.0) 02/06/18 04:30 Eosinophils % 3.4 % (0.0-5.0) 02/06/18 04:30 Basophils % 0.2 % (0.0-2.0) 02/06/18 04:30 Neutrophils (Manual) 61 % (40-80) 02/05/18 06:09 Lymphocytes 33 % (20-50) 02/05/18 06:09 Monocytes 5 % (2-10) 02/05/18 06:09 Eosinophils 1 % (0-5) 02/05/18 06:09 Basophils 0 % (0-3) 02/05/18 06:09 Hypochromia 1+ 02/05/18 06:09 Eos Smear Source URINE 02/02/18 23:10 Eos Smear Total Cells NONE SEEN (NONE SEEN) 02/02/18 23:10 PT 10.0 SECONDS (9.5-11.5) 02/01/18 21:30 INR 0.96 (0.5-1.4) 02/01/18 21:30 PTT (Actin FS) 18.5 SECONDS (26.0-38.0) L 02/01/18 21:30 Sodium 141 mEq/L (136-145) 02/06/18 04:30 Potassium 3.8 mEq/L (3.5-5.1) 02/06/18 04:30 Chloride 103 mEq/L (98-107) 02/06/18 04:30 Carbon Dioxide 32.3 mEq/L (21.0-31.0) H 02/06/18 04:30 Anion Gap 9.5 (7.0-16.0) 02/06/18 04:30 BUN 49 mg/dL (7-25) H 02/06/18 04:30 Creatinine 1.2 mg/dL (0.6-1.2) 02/06/18 04:30 Est GFR ( Amer) TNP 02/06/18 04:30 Est GFR (Non-Af Amer) TNP 02/06/18 04:30 BUN/Creatinine Ratio 40.8 02/06/18 04:30 Glucose 158 mg/dL (70-105) H 02/06/18 04:30 POC Glucose 131 MG/DL (70 - 105) H 02/05/18 17:11 Whole Bld Lactic Acid 1.04 mmol/L (0.60-1.99) 02/01/18 21:30 Uric Acid 8.7 mg/dL (2.3-6.6) H 02/03/18 05:45 Calcium 9.0 mg/dL (8.6-10.3) 02/06/18 04:30 Phosphorus 3.0 mg/dL (2.5-5.0) 02/03/18 05:45 Magnesium 2.1 mg/dL (1.9-2.7) 02/06/18 04:30 Total Bilirubin 0.2 mg/dL (0.3-1.0) L 02/01/18 21:30 AST 17 U/L (13-39) 02/01/18 21:30 ALT 16 U/L (7-52) 02/01/18 21:30 Alkaline Phosphatase 79 U/L (34-104) 02/01/18 21:30 Ammonia 51 umol/L (16-53) 02/02/18 11:55 Creatine Kinase 25 U/L (30-223) L 02/01/18 21:30 Troponin I 0.03 ng/mL (0.01-0.05) 02/01/18 21:30 B-Natriuretic Peptide 106.0 pg/mL (5.0-100.0) H 02/04/18 05:37 Total Protein 6.9 gm/dL (6.0-8.3) 02/01/18 21:30 Albumin 3.3 gm/dL (3.7-5.3) L 02/01/18 21:30 Globulin 3.6 gm/dL 02/01/18 21:30 Albumin/Globulin Ratio 0.9 (1.0-1.8) L 02/01/18 21:30 TSH 2.52 uIU/ml (0.34-5.60) 02/03/18 05:45 Urine Osmolality 472 mOsmol/kg 02/02/18 23:10 Ur Random Sodium 40 mmol/L 02/02/18 23:10 Urine Creatinine 32.2 mg/dl 02/02/18 23:10 Urine Microalbumin 185.5 02/02/18 23:10 Microalb/Creat Ratio 576.1 02/02/18 23:10 Stool Occult Blood POSITIVE (NEGATIVE) H 02/04/18 05:00 Blood Type O POSITIVE 02/05/18 08:36 Antibody Screen NEGATIVE 02/05/18 08:36 Crossmatch See Detail 02/05/18 08:36 - Physical Exam Vitals and I&O: Vital Signs Temp 96.7 F 02/06/18 08:00 Pulse 74 02/06/18 09:05 Resp 18 02/06/18 08:00 BP 153/69 02/06/18 09:05 Pulse Ox 99 02/06/18 08:00 Intake & Output 02/05/18 02/06/18 02/06/18 18:59 06:59 18:59 Intake Total 1853 970 Balance 1853 970 Weight (lbs) 120 lb 120 lb Intake: Intake, IV Amount 1000 Dextrose 5% 1,000 ml @ 70 1000 mls/hr IV .[id number] [facility] Rx#:[id number] Oral 0 Tube Feeding 603 670 Other 250 300 Other: # Voids 3 # Bowel Movements 1 Weight Source Bedscale Bedscale Active Medications: Current Medications Amlodipine Besylate (Norvasc) 10 mg GT DAILY [facility] Stop: 04/03/18 08:59 Last Admin: 02/06/18 09:05 Dose: 10 mg Ascorbic Acid (Vitamin C) 500 mg GT BID [facility] Stop: 04/03/18 08:59 Last Admin: 02/06/18 09:05 Dose: 500 mg Glucagon (Glucagen) 1 mg SUBQ PRN PRN PRN Reason: BS BELOW 60 & NOT TOLERATE PO Stop: 03/03/18 23:38 Haloperidol Decanoate (Haldol Dec) 25 mg IM [id number] [facility] Stop: 04/02/18 23:44 Dextrose (D5w) 1,000 mls @ 70 mls/hr IV .[id number] [facility] Stop: 04/05/18 13:14 Last Admin: 02/05/18 18:39 Dose: 70 mls/hr Insulin Aspart (Novolog Insulin Sliding Scale) 0 units SUBQ Q6HR [facility]; Protocol Stop: 04/03/18 00:59 Last Admin: 02/06/18 06:24 Dose: Not Given Mirtazapine (Remeron) 15 mg GT HS [facility]; Protocol Stop: 04/03/18 20:59 Multivitamins/Minerals (Theragran M) 15 ml GT DAILY [facility] Stop: 04/03/18 08:59 Last Admin: 02/06/18 09:05 Dose: 15 ml Pantoprazole Sodium (Protonix) 40 mg GT DAILY@1200 [facility] Stop: 04/03/18 11:59 Last Admin: 02/05/18 13:43 Dose: 40 mg General: weak HEENT: NC/AT, PERRLA Neck: Supple Cardiovascular: RRR, Normal S1, Normal S2 Abdomen: soft, non-tender, non-distended, +GT - Procedures Procedures: Procedures Procedure Code Date EGD PLACE GASTROSTOMY TUBE 82921 06/21/17 EXCISION OF ASCENDING COLON, ENDO, DIAGN [id number] 06/21/17 EXCISION OF CECUM, ENDO, DIAGN 4IDS1HH 06/21/17 EXCISION OF SIGMOID COLON, ENDO, DIAGN [id number] 06/21/17 EXCISION OF STOMACH, ENDO, DIAGN 5AT18CD 06/21/17 INSERTION OF FEEDING DEVICE INTO STOMACH, PERC APPROACH [id number] 06/21/17 INSERTION OF INFUSION DEV INTO SUP VENA CAVA, PERC APPROACH 58NP73U 06/21/17 INTRODUCTION OF NUTRITIONAL INTO CENTRAL VEIN, PERC APPROACH 9U9915E 06/21/17 PARTIAL REMOVAL OF COLON 74991 06/21/17 RESECTION OF RIGHT LARGE INTESTINE, OPEN APPROACH 4VAT2FE 06/21/17 RESPIRATORY VENTILATION, LESS THAN 24 CONSECUTIVE HOURS 5D1349H 06/21/17 TRANSFUSE NONAUT RED BLOOD CELLS IN PERIPH VEIN, PERC 38052P0 02/01/18 Internal Medicine Assmt/Plan - Assessment Assessment: Severe dehydration, history of acute renal failure, diabetes, congestive heart failure, dementia, anxiety, stool ob positive . - Plan Plan: continue ivf for hydration follow up labs in am monitor h/h continue current plan of care Nutritional Asmnt/Malnutr-PDOC - Dietary Evaluation Malnutrition Findings (Please click <Entered> for more info): Nutritional Asmnt/Malnutrition Start: 02/03/18 17: 04 Text: Status: Complete Freq: Protocol: Document 02/03/18 17:10 LCHENG (Rec: 02/03/18 17:37 [email or web address]) Nutritional Asmnt/Malnutrition Patient General Information Nutritional Screening High Risk Diagnosis acute renal failure Pertinent Medical Hx/Surgical Hx HTN, DM, dyslipidemia, demntia , acute renal insufficiency, CHF Subjective Information Consult received for non intact wound. Pt seen lying in bed at time of visit, nonverbal. Verified glucerna 1 .2 running at 67ml/hr at this time. Current Diet Order/ Nutrition Support glucerna 1.2 at 67ml/hr x 20hr , providing 1608kcal and 80g protein Pertinent Medications vit C, novolog, remeron, theragran, protonix Pertinent Labs 02/03 Na 148, BUN 85, Cr 1.4, glucose 159, POC 132-148 Nutritional Hx/Data Height 5 ft 3 in Height (Calculated Centimeters) 160.0 Current Weight (lbs) 110 lb Weight (Calculated Kilograms) 49.9 Weight (Calculated Grams) 10868.2 [place] Body Weight 115 Body Mass Index (BMI) 19.5 Weight Status Approriate GI Symptoms GI Symptoms None Last BM 02/03 Difficult in: None Skin Integrity/Comment: non intact skin to sacral area per wound care note benji 10 Estimated Nutritional Goals BEE in Kcals: Using Current wt Calories/Kcals/Kg 27-32 Kcals Calculated 0926-9145 Protein: Using Current wt Protein g/k.2-1.4 monitor renal labs Protein Calculated 60-70 Fluid: ml per MD Nutritional Problem 2. Problem Problem increased nutrition needs Etiology imparied skin integrity Signs/Symptoms: non intact wound to sacral area 1. Problem Problem altered nutrition related labs Etiology acute renal failure, hx of DM Signs/Symptoms: Na 148, BUN 85, Cr 1.4, glucose 159, POC 132-148 Malnutrition Alert Is there a minimum of two criteria No selected? Query Text:Check all the applicable criteria. A minimum of two criteria are recommended for diagnosis of either severe or non-severe malnutrition. Malnutrition Related to Morbid Obesity Malnutrition related to morbid obesity No Intervention/Recommendation Comments 1. Recommend decreasing Glucerna 1.2 rate to 60ml/hr x 20hr considering elevated BUN and excesive protein intake. It provides 1608kcal, 80g protein, 888ml free water, meeting 100% of nutritional needs 2. Consider adding Amrit BID via Gtube to help with wound healing. 3. Monitor TF rate, tolerance, wt, skin integrity and labs 4. F/U as high risk in 2-3 days, 02/05-02/06 Expected Outcomes/Goals Expected Outcomes/Goals 1. Pt to meet at least 75% of nutritional needs via nutrition support with tolerance 2. Wt stability, skin integrity to improve., labs to approach WNL.
[2018-02-06] MEDS: Pantoprazole 40 mg/Packet GT SCH (13:25)
--- NOTE | 2018-02-06 13:27 | General Progress Note ---
Subjective - Review of Systems Service Date: 02/06/18 Subjective: more interactive, comfortable, confused Objective - Results Result Diagrams: 02/06/18 04:30 02/06/18 04:30 Recent Labs: Laboratory Last Values WBC 7.2 Th/cmm (4.8-10.8) D 02/06/18 04:30 RBC 3.50 Mil/cmm (3.80-5.20) L 02/06/18 04:30 Hgb 10.0 gm/dL (12-16) L D 02/06/18 04:30 Hct 29.9 % (41.0-60) L D 02/06/18 04:30 MCV 85.5 fl (81-100) 02/06/18 04:30 MCH 28.5 pg (27.0-31.0) 02/06/18 04:30 MCHC Differential 33.3 pg (28.0-36.0) 02/06/18 04:30 RDW 16.3 % (11.5-20.0) 02/06/18 04:30 Plt Count 184 Th/cmm (150-400) 02/06/18 04:30 MPV 10.6 fl 02/06/18 04:30 Add Manual Diff YES 02/05/18 06:09 Neutrophils % 66.9 % (40.0-80.0) 02/06/18 04:30 Band Neutrophils % 0 % (0-10) 02/05/18 06:09 Lymphocytes % 21.9 % (20.0-50.0) 02/06/18 04:30 Monocytes % 7.6 % (2.0-10.0) 02/06/18 04:30 Eosinophils % 3.4 % (0.0-5.0) 02/06/18 04:30 Basophils % 0.2 % (0.0-2.0) 02/06/18 04:30 Neutrophils (Manual) 61 % (40-80) 02/05/18 06:09 Lymphocytes 33 % (20-50) 02/05/18 06:09 Monocytes 5 % (2-10) 02/05/18 06:09 Eosinophils 1 % (0-5) 02/05/18 06:09 Basophils 0 % (0-3) 02/05/18 06:09 Hypochromia 1+ 02/05/18 06:09 Eos Smear Source URINE 02/02/18 23:10 Eos Smear Total Cells NONE SEEN (NONE SEEN) 02/02/18 23:10 PT 10.0 SECONDS (9.5-11.5) 02/01/18 21:30 INR 0.96 (0.5-1.4) 02/01/18 21:30 PTT (Actin FS) 18.5 SECONDS (26.0-38.0) L 02/01/18 21:30 Sodium 141 mEq/L (136-145) 02/06/18 04:30 Potassium 3.8 mEq/L (3.5-5.1) 02/06/18 04:30 Chloride 103 mEq/L (98-107) 02/06/18 04:30 Carbon Dioxide 32.3 mEq/L (21.0-31.0) H 02/06/18 04:30 Anion Gap 9.5 (7.0-16.0) 02/06/18 04:30 BUN 49 mg/dL (7-25) H 02/06/18 04:30 Creatinine 1.2 mg/dL (0.6-1.2) 02/06/18 04:30 Est GFR ( Amer) TNP 02/06/18 04:30 Est GFR (Non-Af Amer) TNP 02/06/18 04:30 BUN/Creatinine Ratio 40.8 02/06/18 04:30 Glucose 158 mg/dL (70-105) H 02/06/18 04:30 POC Glucose 131 MG/DL (70 - 105) H 02/05/18 17:11 Whole Bld Lactic Acid 1.04 mmol/L (0.60-1.99) 02/01/18 21:30 Uric Acid 8.7 mg/dL (2.3-6.6) H 02/03/18 05:45 Calcium 9.0 mg/dL (8.6-10.3) 02/06/18 04:30 Phosphorus 3.0 mg/dL (2.5-5.0) 02/03/18 05:45 Magnesium 2.1 mg/dL (1.9-2.7) 02/06/18 04:30 Total Bilirubin 0.2 mg/dL (0.3-1.0) L 02/01/18 21:30 AST 17 U/L (13-39) 02/01/18 21:30 ALT 16 U/L (7-52) 02/01/18 21:30 Alkaline Phosphatase 79 U/L (34-104) 02/01/18 21:30 Ammonia 51 umol/L (16-53) 02/02/18 11:55 Creatine Kinase 25 U/L (30-223) L 02/01/18 21:30 Troponin I 0.03 ng/mL (0.01-0.05) 02/01/18 21:30 B-Natriuretic Peptide 106.0 pg/mL (5.0-100.0) H 02/04/18 05:37 Total Protein 6.9 gm/dL (6.0-8.3) 02/01/18 21:30 Albumin 3.3 gm/dL (3.7-5.3) L 02/01/18 21:30 Globulin 3.6 gm/dL 02/01/18 21:30 Albumin/Globulin Ratio 0.9 (1.0-1.8) L 02/01/18 21:30 TSH 2.52 uIU/ml (0.34-5.60) 02/03/18 05:45 Urine Osmolality 472 mOsmol/kg 02/02/18 23:10 Ur Random Sodium 40 mmol/L 02/02/18 23:10 Urine Creatinine 32.2 mg/dl 02/02/18 23:10 Urine Microalbumin 185.5 02/02/18 23:10 Microalb/Creat Ratio 576.1 02/02/18 23:10 Stool Occult Blood POSITIVE (NEGATIVE) H 02/04/18 05:00 Blood Type O POSITIVE 02/05/18 08:36 Antibody Screen NEGATIVE 02/05/18 08:36 Crossmatch See Detail 02/05/18 08:36 - Physical Exam Vitals and I&O: Vital Signs Temp 97.8 F 02/06/18 12:00 Pulse 76 02/06/18 12:00 Resp 18 02/06/18 12:00 BP 141/76 02/06/18 12:00 Pulse Ox 98 02/06/18 12:00 Intake & Output 02/05/18 02/06/18 02/06/18 18:59 06:59 18:59 Intake Total 1853 970 Balance 1853 970 Weight (lbs) 54.431 kg 54.431 kg Intake: Intake, IV Amount 1000 Dextrose 5% 1,000 ml @ 70 1000 mls/hr IV .[id number] [facility] Rx#:[id number] Oral 0 Tube Feeding 603 670 Other 250 300 Other: # Voids 3 # Bowel Movements 1 Weight Source Bedscale Bedscale Active Medications: Current Medications Amlodipine Besylate (Norvasc) 10 mg GT DAILY [facility] Stop: 04/03/18 08:59 Last Admin: 02/06/18 09:05 Dose: 10 mg Ascorbic Acid (Vitamin C) 500 mg GT BID [facility] Stop: 04/03/18 08:59 Last Admin: 02/06/18 09:05 Dose: 500 mg Glucagon (Glucagen) 1 mg SUBQ PRN PRN PRN Reason: BS BELOW 60 & NOT TOLERATE PO Stop: 03/03/18 23:38 Haloperidol Decanoate (Haldol Dec) 25 mg IM [id number] [facility] Stop: 04/02/18 23:44 Dextrose (D5w) 1,000 mls @ 70 mls/hr IV .[id number] [facility] Stop: 04/05/18 13:14 Last Admin: 02/05/18 18:39 Dose: 70 mls/hr Insulin Aspart (Novolog Insulin Sliding Scale) 0 units SUBQ Q6HR [facility]; Protocol Stop: 04/03/18 00:59 Last Admin: 02/06/18 06:24 Dose: Not Given Mirtazapine (Remeron) 15 mg GT HS [facility]; Protocol Stop: 04/03/18 20:59 Multivitamins/Minerals (Theragran M) 15 ml GT DAILY [facility] Stop: 04/03/18 08:59 Last Admin: 02/06/18 09:05 Dose: 15 ml Pantoprazole Sodium (Protonix) 40 mg GT DAILY@1200 [facility] Stop: 04/03/18 11:59 Last Admin: 02/05/18 13:43 Dose: 40 mg General: Alert, No acute distress HEENT: Atraumatic, Mucous membr. moist/pink Neck: Supple, +2 carotid pulse wo bruit Cardiovascular: Regular rate, Normal S1, Normal S2 Lungs: Clear to auscultation Abdomen: Bowel sounds, Soft Extremities: no Edema Neurological: Sensation intact Psych/Mental Status: Mood NL - Procedures Procedures: Procedures Procedure Code Date EGD PLACE GASTROSTOMY TUBE 98647 06/21/17 EXCISION OF ASCENDING COLON, ENDO, DIAGN [id number] 06/21/17 EXCISION OF CECUM, ENDO, DIAGN 1CSL3CG 06/21/17 EXCISION OF SIGMOID COLON, ENDO, DIAGN [id number] 06/21/17 EXCISION OF STOMACH, ENDO, DIAGN 2IP90BL 06/21/17 INSERTION OF FEEDING DEVICE INTO STOMACH, PERC APPROACH [id number] 06/21/17 INSERTION OF INFUSION DEV INTO SUP VENA CAVA, PERC APPROACH 69VF64K 06/21/17 INTRODUCTION OF NUTRITIONAL INTO CENTRAL VEIN, PERC APPROACH 5M2282P 06/21/17 PARTIAL REMOVAL OF COLON 52745 06/21/17 RESECTION OF RIGHT LARGE INTESTINE, OPEN APPROACH 6AUW5CQ 06/21/17 RESPIRATORY VENTILATION, LESS THAN 24 CONSECUTIVE HOURS 4U9804F 06/21/17 TRANSFUSE NONAUT RED BLOOD CELLS IN PERIPH VEIN, PERC 04890K2 02/01/18 Assessment/Plan - Assessment Assessment: LEONIE on CKD ALOC Met Enceph Contraction Alk Severe Dehydration T2DM w/ CKD Ess Htn w/ CKD Anemia Acute LGI bleed on CD - Plan Plan: Lab - Result Diagrams 02/03/18 05:45 02/03/18 05:45 Current Medications Amlodipine Besylate (Norvasc) 10 mg GT DAILY [facility] Stop: 04/03/18 08:59 Last Admin: 02/03/18 09:45 Dose: 10 mg Ascorbic Acid (Vitamin C) 500 mg GT BID [facility] Stop: 04/03/18 08:59 Last Admin: 02/03/18 09:43 Dose: 500 mg Glucagon (Glucagen) 1 mg SUBQ PRN PRN PRN Reason: BS BELOW 60 & NOT TOLERATE PO Stop: 03/03/18 23:38 Haloperidol Decanoate (Haldol Dec) 25 mg IM [id number] [facility] Stop: 04/02/18 23:44 Dextrose (D5w) 1,000 mls @ 125 mls/hr IV .Q8H [facility] Stop: 04/03/18 01:59 Last Infusion: 02/03/18 10:30 Dose: 125 mls/hr Insulin Aspart (Novolog Insulin Sliding Scale) 0 units SUBQ Q6HR [facility]; Protocol Stop: 04/03/18 00:59 Last Admin: 02/03/18 12:23 Dose: Not Given Mirtazapine (Remeron) 15 mg GT HS [facility]; Protocol Stop: 04/03/18 20:59 Multivitamins/Minerals (Theragran M) 15 ml GT DAILY [facility] Stop: 04/03/18 08:59 Last Admin: 02/03/18 09:42 Dose: 15 ml Pantoprazole Sodium (Protonix) 40 mg GT DAILY@1200 [facility] Stop: 04/03/18 11:59 Last Admin: 02/03/18 13:18 Dose: 40 mg Lab - Result Diagrams 02/06/18 04:30 02/06/18 04:30 Na up to 141 replaced K Kidney fnc improved w/ BUN/CR of 49/1.2 continue hydration Hgb/Hct improved after transfusion f/u electrolytes, CBC Nutritional Asmnt/Malnutr-PDOC - Dietary Evaluation Malnutrition Findings (Please click <Entered> for more info): Nutritional Asmnt/Malnutrition Start: 02/03/18 17: 04 Text: Status: Complete Freq: Protocol: Document 02/03/18 17:10 GRISELDA (Rec: 02/03/18 17:37 LCHARSHAD [email or web address]) Nutritional Asmnt/Malnutrition Patient General Information Nutritional Screening High Risk Diagnosis acute renal failure Pertinent Medical Hx/Surgical Hx HTN, DM, dyslipidemia, demntia , acute renal insufficiency, CHF Subjective Information Consult received for non intact wound. Pt seen lying in bed at time of visit, nonverbal. Verified glucerna 1 .2 running at 67ml/hr at this time. Current Diet Order/ Nutrition Support glucerna 1.2 at 67ml/hr x 20hr , providing 1608kcal and 80g protein Pertinent Medications vit C, novolog, remeron, theragran, protonix Pertinent Labs 02/03 Na 148, BUN 85, Cr 1.4, glucose 159, POC 132-148 Nutritional Hx/Data Height 1.6 m Height (Calculated Centimeters) 160.0 Current Weight (lbs) 49.895 kg Weight (Calculated Kilograms) 49.9 Weight (Calculated Grams) 95924.2 [place] Body Weight 115 Body Mass Index (BMI) 19.5 Weight Status Approriate GI Symptoms GI Symptoms None Last BM 02/03 Difficult in: None Skin Integrity/Comment: non intact skin to sacral area per wound care note benji 10 Estimated Nutritional Goals BEE in Kcals: Using Current wt Calories/Kcals/Kg 27-32 Kcals Calculated 7640-3215 Protein: Using Current wt Protein g/k.2-1.4 monitor renal labs Protein Calculated 60-70 Fluid: ml per MD Nutritional Problem 2. Problem Problem increased nutrition needs Etiology imparied skin integrity Signs/Symptoms: non intact wound to sacral area 1. Problem Problem altered nutrition related labs Etiology acute renal failure, hx of DM Signs/Symptoms: Na 148, BUN 85, Cr 1.4, glucose 159, POC 132-148 Malnutrition Alert Is there a minimum of two criteria No selected? Query Text:Check all the applicable criteria. A minimum of two criteria are recommended for diagnosis of either severe or non-severe malnutrition. Malnutrition Related to Morbid Obesity Malnutrition related to morbid obesity No Intervention/Recommendation Comments 1. Recommend decreasing Glucerna 1.2 rate to 60ml/hr x 20hr considering elevated BUN and excesive protein intake. It provides 1608kcal, 80g protein, 888ml free water, meeting 100% of nutritional needs 2. Consider adding Amrit BID via better.ube to help with wound healing. 3. Monitor TF rate, tolerance, wt, skin integrity and labs 4. F/U as high risk in 2-3 days, 02/05-02/06 Expected Outcomes/Goals Expected Outcomes/Goals 1. Pt to meet at least 75% of nutritional needs via nutrition support with tolerance 2. Wt stability, skin integrity to improve., labs to approach WNL.
--- NOTE | 2018-02-06 16:24 | GI Progress Note ---
Subjective - Review of Systems Subjective: NO GI BLEEDING ILENE TUBE FEEDS Objective - Results Result Diagrams: 02/06/18 04:30 02/06/18 04:30 Recent Labs: Laboratory Last Values WBC 7.2 Th/cmm (4.8-10.8) D 02/06/18 04:30 RBC 3.50 Mil/cmm (3.80-5.20) L 02/06/18 04:30 Hgb 10.0 gm/dL (12-16) L D 02/06/18 04:30 Hct 29.9 % (41.0-60) L D 02/06/18 04:30 MCV 85.5 fl (81-100) 02/06/18 04:30 MCH 28.5 pg (27.0-31.0) 02/06/18 04:30 MCHC Differential 33.3 pg (28.0-36.0) 02/06/18 04:30 RDW 16.3 % (11.5-20.0) 02/06/18 04:30 Plt Count 184 Th/cmm (150-400) 02/06/18 04:30 MPV 10.6 fl 02/06/18 04:30 Add Manual Diff YES 02/05/18 06:09 Neutrophils % 66.9 % (40.0-80.0) 02/06/18 04:30 Band Neutrophils % 0 % (0-10) 02/05/18 06:09 Lymphocytes % 21.9 % (20.0-50.0) 02/06/18 04:30 Monocytes % 7.6 % (2.0-10.0) 02/06/18 04:30 Eosinophils % 3.4 % (0.0-5.0) 02/06/18 04:30 Basophils % 0.2 % (0.0-2.0) 02/06/18 04:30 Neutrophils (Manual) 61 % (40-80) 02/05/18 06:09 Lymphocytes 33 % (20-50) 02/05/18 06:09 Monocytes 5 % (2-10) 02/05/18 06:09 Eosinophils 1 % (0-5) 02/05/18 06:09 Basophils 0 % (0-3) 02/05/18 06:09 Hypochromia 1+ 02/05/18 06:09 Eos Smear Source URINE 02/02/18 23:10 Eos Smear Total Cells NONE SEEN (NONE SEEN) 02/02/18 23:10 PT 10.0 SECONDS (9.5-11.5) 02/01/18 21:30 INR 0.96 (0.5-1.4) 02/01/18 21:30 PTT (Actin FS) 18.5 SECONDS (26.0-38.0) L 02/01/18 21:30 Sodium 141 mEq/L (136-145) 02/06/18 04:30 Potassium 3.8 mEq/L (3.5-5.1) 02/06/18 04:30 Chloride 103 mEq/L (98-107) 02/06/18 04:30 Carbon Dioxide 32.3 mEq/L (21.0-31.0) H 02/06/18 04:30 Anion Gap 9.5 (7.0-16.0) 02/06/18 04:30 BUN 49 mg/dL (7-25) H 02/06/18 04:30 Creatinine 1.2 mg/dL (0.6-1.2) 02/06/18 04:30 Est GFR ( Amer) TNP 02/06/18 04:30 Est GFR (Non-Af Amer) TNP 02/06/18 04:30 BUN/Creatinine Ratio 40.8 02/06/18 04:30 Glucose 158 mg/dL (70-105) H 02/06/18 04:30 POC Glucose 140 MG/DL (70-105) H 02/06/18 06:16 Whole Bld Lactic Acid 1.04 mmol/L (0.60-1.99) 02/01/18 21:30 Uric Acid 8.7 mg/dL (2.3-6.6) H 02/03/18 05:45 Calcium 9.0 mg/dL (8.6-10.3) 02/06/18 04:30 Phosphorus 3.0 mg/dL (2.5-5.0) 02/03/18 05:45 Magnesium 2.1 mg/dL (1.9-2.7) 02/06/18 04:30 Total Bilirubin 0.2 mg/dL (0.3-1.0) L 02/01/18 21:30 AST 17 U/L (13-39) 02/01/18 21:30 ALT 16 U/L (7-52) 02/01/18 21:30 Alkaline Phosphatase 79 U/L (34-104) 02/01/18 21:30 Ammonia 51 umol/L (16-53) 02/02/18 11:55 Creatine Kinase 25 U/L (30-223) L 02/01/18 21:30 Troponin I 0.03 ng/mL (0.01-0.05) 02/01/18 21:30 B-Natriuretic Peptide 106.0 pg/mL (5.0-100.0) H 02/04/18 05:37 Total Protein 6.9 gm/dL (6.0-8.3) 02/01/18 21:30 Albumin 3.3 gm/dL (3.7-5.3) L 02/01/18 21:30 Globulin 3.6 gm/dL 02/01/18 21:30 Albumin/Globulin Ratio 0.9 (1.0-1.8) L 02/01/18 21:30 TSH 2.52 uIU/ml (0.34-5.60) 02/03/18 05:45 Urine Osmolality 472 mOsmol/kg 02/02/18 23:10 Ur Random Sodium 40 mmol/L 02/02/18 23:10 Urine Creatinine 32.2 mg/dl 02/02/18 23:10 Urine Microalbumin 185.5 02/02/18 23:10 Microalb/Creat Ratio 576.1 02/02/18 23:10 Stool Occult Blood POSITIVE (NEGATIVE) H 02/04/18 05:00 Blood Type O POSITIVE 02/05/18 08:36 Antibody Screen NEGATIVE 02/05/18 08:36 Crossmatch See Detail 02/05/18 08:36 - Physical Exam Vitals and I&O: Vital Signs Temp 97.8 F 02/06/18 12:00 Pulse 76 02/06/18 12:00 Resp 18 02/06/18 12:00 BP 141/76 02/06/18 12:00 Pulse Ox 98 02/06/18 12:00 Intake & Output 02/05/18 02/06/18 02/06/18 18:59 06:59 18:59 Intake Total 1853 970 Balance 1853 970 Weight (lbs) 54.431 kg 54.431 kg Intake: Intake, IV Amount 1000 Dextrose 5% 1,000 ml @ 70 1000 mls/hr IV .[id number] [facility] Rx#:[id number] Oral 0 Tube Feeding 603 670 Other 250 300 Other: # Voids 3 # Bowel Movements 1 Weight Source Bedscale Bedscale Active Medications: Current Medications Amlodipine Besylate (Norvasc) 10 mg GT DAILY [facility] Stop: 04/03/18 08:59 Last Admin: 02/06/18 09:05 Dose: 10 mg Ascorbic Acid (Vitamin C) 500 mg GT BID [facility] Stop: 04/03/18 08:59 Last Admin: 02/06/18 09:05 Dose: 500 mg Glucagon (Glucagen) 1 mg SUBQ PRN PRN PRN Reason: BS BELOW 60 & NOT TOLERATE PO Stop: 03/03/18 23:38 Haloperidol Decanoate (Haldol Dec) 25 mg IM [id number] [facility] Stop: 04/02/18 23:44 Dextrose (D5w) 1,000 mls @ 70 mls/hr IV .[id number] [facility] Stop: 04/05/18 13:14 Last Admin: 02/05/18 18:39 Dose: 70 mls/hr Insulin Aspart (Novolog Insulin Sliding Scale) 0 units SUBQ Q6HR [facility]; Protocol Stop: 04/03/18 00:59 Last Admin: 02/06/18 13:00 Dose: Not Given Mirtazapine (Remeron) 15 mg GT HS [facility]; Protocol Stop: 04/03/18 20:59 Multivitamins/Minerals (Theragran M) 15 ml GT DAILY [facility] Stop: 04/03/18 08:59 Last Admin: 02/06/18 09:05 Dose: 15 ml Pantoprazole Sodium (Protonix) 40 mg GT DAILY@1200 [facility] Stop: 04/03/18 11:59 Last Admin: 02/06/18 13:25 Dose: 40 mg General: Alert, No acute distress HEENT: Atraumatic, Mucous membr. moist/pink Neck: Supple, +2 carotid pulse wo bruit Cardiovascular: Regular rate, Normal S1, Normal S2 Lungs: Clear to auscultation Abdomen: Bowel sounds, Soft Extremities: no Edema Neurological: Sensation intact Psych/Mental Status: Mood NL - Procedures Procedures: Procedures Procedure Code Date EGD PLACE GASTROSTOMY TUBE 26347 06/21/17 EXCISION OF ASCENDING COLON, ENDO, DIAGN [id number] 06/21/17 EXCISION OF CECUM, ENDO, DIAGN [id number] 06/21/17 EXCISION OF SIGMOID COLON, ENDO, DIAGN [id number] 06/21/17 EXCISION OF STOMACH, ENDO, DIAGN [id number] 06/21/17 INSERTION OF FEEDING DEVICE INTO STOMACH, PERC APPROACH [id number] 06/21/17 INSERTION OF INFUSION DEV INTO SUP VENA CAVA, PERC APPROACH [id number] 06/21/17 INTRODUCTION OF NUTRITIONAL INTO CENTRAL VEIN, PERC APPROACH [id number] 06/21/17 PARTIAL REMOVAL OF COLON 86101 06/21/17 RESECTION OF RIGHT LARGE INTESTINE, OPEN APPROACH [id number] 06/21/17 RESPIRATORY VENTILATION, LESS THAN 24 CONSECUTIVE HOURS [id number] 06/21/17 TRANSFUSE NONAUT RED BLOOD CELLS IN PERIPH VEIN, PERC 20982E7 02/01/18 Assessment/Plan - Assessment Assessment: 77 YO FEMALE WITH OCCULT BLOOD + NO OVERT GI BLEEDING RECENT EGD AND COLO BLEEDING SCAN NEG 1.FOLLOW H/H; TRANSFUSE PRN 2.GET EGD AND COLO RECORDS 3.MAY NEED CAPSULE ENDOSCOPY; MAY NOT BE A GOOD CANDIDATE
[2018-02-06] MEDS: Dextrose 5% 1,000 ML IV SCH (21:12)
[2018-02-07] MEDS: INSULIN ASPART SLIDING SCALE 100 UNITS/ML UNIT SUBQ SCH ×4 (00:24→17:41)
[2018-02-07 02:14] LABS: FERRITIN 58 ng/mL (15-150); FOLIC ACID >20.0 ng/mL (>3.0); IRON LC 38 ug/dL (27-139); TIBC (LC) 239 ug/dL (250-450); UIBC 201 ug/dL (118-369)
[2018-02-07 05:13] LABS: % BASOPHILS 0.5 % (0.0-2.0); % EOSINOPHILS 2.6 % (0.0-5.0); % MONOCYTES 7.8 % (2.0-10.0); % NEUTROPHILS 65.1 % (40.0-80.0); EOSINOPHILE ABSOLUTE 0.2 Th/cmm (0.1-0.4); HEMATOCRIT 29.4 % (41.0-60); HEMOGLOBIN 9.6 gm/dL (12-16); LYMPHOCYTE ABSOLUTE 1.9 Th/cmm (1.5-3.0); MEAN CELL VOLUME 85.3 fl (81-100); MEAN CORPUSCULAR HEMOGLOBIN 27.9 pg (27.0-31.0); MEAN CORPUSCULAR HGB CONC 32.7 pg (28.0-36.0); MEAN PLATELET VOLUME 10.1 fl; MONOCYTE ABSOLUTE 0.6 Th/cmm (0.3-1.0); NEUTROPHILE ABSOLUTE 5.2 Th/cmm (1.8-8.0); PLATELET COUNT 192 Th/cmm (150-400); RED BLOOD COUNT 3.44 Mil/cmm (3.80-5.20); RED CELL DISTRIBUTION WIDTH 16.2 % (11.5-20.0); WHITE BLOOD COUNT 7.9 Th/cmm (4.8-10.8)
[2018-02-07 05:43] LABS: ANION GAP 9.9 (7.0-16.0); BUN - UREA NITROGEN 46 mg/dL (7-25); CARBON DIOXIDE 32.8 mEq/L (21.0-31.0); CHLORIDE 99 mEq/L (98-107); CREATININE - SERUM 1.2 mg/dL (0.6-1.2); GLUCOSE 161 mg/dL (70-105); POTASSIUM SERUM 3.7 mEq/L (3.5-5.1); SODIUM SERUM 138 mEq/L (136-145)
[2018-02-07] MEDS: Multivitamin w/ Minerals 15 mL UDC GT SCH (09:39)
--- NOTE | 2018-02-07 12:31 | Internal Medicine Prog Note ---
Internal Medicine Subjective - Subjective Service Date: 02/07/18 Patient seen and examined:: with staff Patient is:: awake, non-verbal Patient Complaints of:: congestion Per staff patient has:: tolerating meds Internal Medicine Objective - Results Result Diagrams: 02/07/18 04:45 02/07/18 04:45 Recent Labs: Laboratory Last Values WBC 7.9 Th/cmm (4.8-10.8) 02/07/18 04:45 RBC 3.44 Mil/cmm (3.80-5.20) L 02/07/18 04:45 Hgb 9.6 gm/dL (12-16) L 02/07/18 04:45 Hct 29.4 % (41.0-60) L 02/07/18 04:45 MCV 85.3 fl (81-100) 02/07/18 04:45 MCH 27.9 pg (27.0-31.0) 02/07/18 04:45 MCHC Differential 32.7 pg (28.0-36.0) 02/07/18 04:45 RDW 16.2 % (11.5-20.0) 02/07/18 04:45 Plt Count 192 Th/cmm (150-400) 02/07/18 04:45 MPV 10.1 fl 02/07/18 04:45 Add Manual Diff YES 02/05/18 06:09 Neutrophils % 65.1 % (40.0-80.0) 02/07/18 04:45 Band Neutrophils % 0 % (0-10) 02/05/18 06:09 Lymphocytes % 24.0 % (20.0-50.0) 02/07/18 04:45 Monocytes % 7.8 % (2.0-10.0) 02/07/18 04:45 Eosinophils % 2.6 % (0.0-5.0) 02/07/18 04:45 Basophils % 0.5 % (0.0-2.0) 02/07/18 04:45 Neutrophils (Manual) 61 % (40-80) 02/05/18 06:09 Lymphocytes 33 % (20-50) 02/05/18 06:09 Monocytes 5 % (2-10) 02/05/18 06:09 Eosinophils 1 % (0-5) 02/05/18 06:09 Basophils 0 % (0-3) 02/05/18 06:09 Hypochromia 1+ 02/05/18 06:09 Eos Smear Source URINE 02/02/18 23:10 Eos Smear Total Cells NONE SEEN (NONE SEEN) 02/02/18 23:10 PT 10.0 SECONDS (9.5-11.5) 02/01/18 21:30 INR 0.96 (0.5-1.4) 02/01/18 21:30 PTT (Actin FS) 18.5 SECONDS (26.0-38.0) L 02/01/18 21:30 Sodium 138 mEq/L (136-145) 02/07/18 04:45 Potassium 3.7 mEq/L (3.5-5.1) 02/07/18 04:45 Chloride 99 mEq/L (98-107) 02/07/18 04:45 Carbon Dioxide 32.8 mEq/L (21.0-31.0) H 02/07/18 04:45 Anion Gap 9.9 (7.0-16.0) 02/07/18 04:45 BUN 46 mg/dL (7-25) H 02/07/18 04:45 Creatinine 1.2 mg/dL (0.6-1.2) 02/07/18 04:45 Est GFR ( Amer) TNP 02/07/18 04:45 Est GFR (Non-Af Amer) TNP 02/07/18 04:45 BUN/Creatinine Ratio 38.3 02/07/18 04:45 Glucose 161 mg/dL (70-105) H 02/07/18 04:45 POC Glucose 168 MG/DL (70 - 105) H 02/06/18 23:44 Whole Bld Lactic Acid 1.04 mmol/L (0.60-1.99) 02/01/18 21:30 Uric Acid 8.7 mg/dL (2.3-6.6) H 02/03/18 05:45 Calcium 9.0 mg/dL (8.6-10.3) 02/07/18 04:45 Phosphorus 3.0 mg/dL (2.5-5.0) 02/03/18 05:45 Magnesium 2.1 mg/dL (1.9-2.7) 02/06/18 04:30 Iron 38 ug/dL (27-139) 02/04/18 05:37 TIBC 239 ug/dL (250-450) L 02/04/18 05:37 Iron Saturation 16 % (15-55) 02/04/18 05:37 Unsaturated IBC 201 ug/dL (118-369) 02/04/18 05:37 Ferritin 58 ng/mL (15-150) 02/04/18 05:37 Total Bilirubin 0.2 mg/dL (0.3-1.0) L 02/01/18 21:30 AST 17 U/L (13-39) 02/01/18 21:30 ALT 16 U/L (7-52) 02/01/18 21:30 Alkaline Phosphatase 79 U/L (34-104) 02/01/18 21:30 Ammonia 51 umol/L (16-53) 02/02/18 11:55 Creatine Kinase 25 U/L (30-223) L 02/01/18 21:30 Troponin I 0.03 ng/mL (0.01-0.05) 02/01/18 21:30 B-Natriuretic Peptide 106.0 pg/mL (5.0-100.0) H 02/04/18 05:37 Total Protein 6.9 gm/dL (6.0-8.3) 02/01/18 21:30 Albumin 3.3 gm/dL (3.7-5.3) L 02/01/18 21:30 Globulin 3.6 gm/dL 02/01/18 21:30 Albumin/Globulin Ratio 0.9 (1.0-1.8) L 02/01/18 21:30 Vitamin B12 1520 pg/mL (232-1245) H 02/04/18 05:37 Folic Acid >20.0 ng/mL (>3.0) 02/04/18 05:37 TSH 2.52 uIU/ml (0.34-5.60) 02/03/18 05:45 Urine Osmolality 472 mOsmol/kg 02/02/18 23:10 Ur Random Sodium 40 mmol/L 02/02/18 23:10 Urine Creatinine 32.2 mg/dl 02/02/18 23:10 Urine Microalbumin 185.5 02/02/18 23:10 Microalb/Creat Ratio 576.1 02/02/18 23:10 Stool Occult Blood POSITIVE (NEGATIVE) H 02/04/18 05:00 Blood Type O POSITIVE 02/05/18 08:36 Antibody Screen NEGATIVE 02/05/18 08:36 Crossmatch See Detail 02/05/18 08:36 - Physical Exam Vitals and I&O: Vital Signs Temp 96.5 F 02/07/18 12:10 Pulse 71 02/07/18 12:10 Resp 18 02/07/18 12:10 BP 160/70 02/07/18 12:10 Pulse Ox 99 02/07/18 12:10 Intake & Output 02/06/18 02/07/18 02/07/18 18:59 06:59 18:59 Intake Total 2150 894 Balance 2150 894 Weight (lbs) 120 lb 117 lb Intake: Intake, IV Amount 1000 Dextrose 5% 1,000 ml @ 70 1000 mls/hr IV .[id number] [facility] Rx#:[id number] Oral 0 Tube Feeding 850 804 Other 300 90 Other: # Voids 2 # Bowel Movements 2 Weight Source Bedscale Bedscale Active Medications: Current Medications Amlodipine Besylate (Norvasc) 10 mg GT DAILY [facility] Stop: 04/03/18 08:59 Last Admin: 02/07/18 09:39 Dose: 10 mg Ascorbic Acid (Vitamin C) 500 mg GT BID [facility] Stop: 04/03/18 08:59 Last Admin: 02/07/18 09:39 Dose: 500 mg Glucagon (Glucagen) 1 mg SUBQ PRN PRN PRN Reason: BS BELOW 60 & NOT TOLERATE PO Stop: 03/03/18 23:38 Haloperidol Decanoate (Haldol Dec) 25 mg IM [id number] [facility] Stop: 04/02/18 23:44 Dextrose (D5w) 1,000 mls @ 70 mls/hr IV .[id number] [facility] Stop: 04/05/18 13:14 Last Admin: 02/06/18 21:12 Dose: 70 mls/hr Insulin Aspart (Novolog Insulin Sliding Scale) 0 units SUBQ Q6HR [facility]; Protocol Stop: 04/03/18 00:59 Last Admin: 02/07/18 06:19 Dose: Not Given Mirtazapine (Remeron) 15 mg GT HS [facility]; Protocol Stop: 04/03/18 20:59 Multivitamins/Minerals (Theragran M) 15 ml GT DAILY [facility] Stop: 04/03/18 08:59 Last Admin: 02/07/18 09:39 Dose: 15 ml Pantoprazole Sodium (Protonix) 40 mg GT DAILY@1200 [facility] Stop: 04/03/18 11:59 Last Admin: 02/06/18 13:25 Dose: 40 mg General: weak HEENT: NC/AT, PERRLA Neck: Supple Cardiovascular: RRR, Normal S1, Normal S2 Abdomen: soft, non-tender, non-distended, +GT - Procedures Procedures: Procedures Procedure Code Date EGD PLACE GASTROSTOMY TUBE 95106 06/21/17 EXCISION OF ASCENDING COLON, ENDO, DIAGN [id number] 06/21/17 EXCISION OF CECUM, ENDO, DIAGN [id number] 06/21/17 EXCISION OF SIGMOID COLON, ENDO, DIAGN [id number] 06/21/17 EXCISION OF STOMACH, ENDO, DIAGN [id number] 06/21/17 INSERTION OF FEEDING DEVICE INTO STOMACH, PERC APPROACH [id number] 06/21/17 INSERTION OF INFUSION DEV INTO SUP VENA CAVA, PERC APPROACH 54VL03O 06/21/17 INTRODUCTION OF NUTRITIONAL INTO CENTRAL VEIN, PERC APPROACH 2L1670I 06/21/17 PARTIAL REMOVAL OF COLON 24611 06/21/17 RESECTION OF RIGHT LARGE INTESTINE, OPEN APPROACH [id number] 06/21/17 RESPIRATORY VENTILATION, LESS THAN 24 CONSECUTIVE HOURS 6U7761S 06/21/17 TRANSFUSE NONAUT RED BLOOD CELLS IN PERIPH VEIN, PERC 26120P3 02/01/18 Internal Medicine Assmt/Plan - Assessment Assessment: Severe dehydration, history of acute renal failure, diabetes, congestive heart failure, dementia, anxiety, stool ob positive . - Plan Plan: dc planning in am continue ivf for hydration follow up labs in am monitor h/h continue current plan of care Nutritional Asmnt/Malnutr-PDOC - Dietary Evaluation Malnutrition Findings (Please click <Entered> for more info): Nutritional Asmnt/Malnutrition Start: 02/03/18 17: 04 Text: Status: Complete Freq: Protocol: Document 02/03/18 17:10 GRISELDA (Rec: 02/03/18 17:37 JENY [email or web address]) Nutritional Asmnt/Malnutrition Patient General Information Nutritional Screening High Risk Diagnosis acute renal failure Pertinent Medical Hx/Surgical Hx HTN, DM, dyslipidemia, demntia , acute renal insufficiency, CHF Subjective Information Consult received for non intact wound. Pt seen lying in bed at time of visit, nonverbal. Verified glucerna 1 .2 running at 67ml/hr at this time. Current Diet Order/ Nutrition Support glucerna 1.2 at 67ml/hr x 20hr , providing 1608kcal and 80g protein Pertinent Medications vit C, novolog, remeron, theragran, protonix Pertinent Labs 02/03 Na 148, BUN 85, Cr 1.4, glucose 159, POC 132-148 Nutritional Hx/Data Height 5 ft 3 in Height (Calculated Centimeters) 160.0 Current Weight (lbs) 110 lb Weight (Calculated Kilograms) 49.9 Weight (Calculated Grams) 72505.2 [place] Body Weight 115 Body Mass Index (BMI) 19.5 Weight Status Approriate GI Symptoms GI Symptoms None Last BM 02/03 Difficult in: None Skin Integrity/Comment: non intact skin to sacral area per wound care note benji 10 Estimated Nutritional Goals BEE in Kcals: Using Current wt Calories/Kcals/Kg 27-32 Kcals Calculated 7428-9330 Protein: Using Current wt Protein g/k.2-1.4 monitor renal labs Protein Calculated 60-70 Fluid: ml per MD Nutritional Problem 2. Problem Problem increased nutrition needs Etiology imparied skin integrity Signs/Symptoms: non intact wound to sacral area 1. Problem Problem altered nutrition related labs Etiology acute renal failure, hx of DM Signs/Symptoms: Na 148, BUN 85, Cr 1.4, glucose 159, POC 132-148 Malnutrition Alert Is there a minimum of two criteria No selected? Query Text:Check all the applicable criteria. A minimum of two criteria are recommended for diagnosis of either severe or non-severe malnutrition. Malnutrition Related to Morbid Obesity Malnutrition related to morbid obesity No Intervention/Recommendation Comments 1. Recommend decreasing Glucerna 1.2 rate to 60ml/hr x 20hr considering elevated BUN and excesive protein intake. It provides 1608kcal, 80g protein, 888ml free water, meeting 100% of nutritional needs 2. Consider adding Amrit BID via Gtube to help with wound healing. 3. Monitor TF rate, tolerance, wt, skin integrity and labs 4. F/U as high risk in 2-3 days, 02/05-02/06 Expected Outcomes/Goals Expected Outcomes/Goals 1. Pt to meet at least 75% of nutritional needs via nutrition support with tolerance 2. Wt stability, skin integrity to improve., labs to approach WNL.
[2018-02-07] MEDS: Pantoprazole 40 mg/Packet GT SCH (13:32)
[2018-02-07] MEDS: Dextrose 5% 1,000 ML IV SCH (13:37)
--- NOTE | 2018-02-07 14:11 | General Progress Note ---
Subjective - Review of Systems Service Date: 02/07/18 Subjective: sleeping, comfortable Objective - Results Result Diagrams: 02/07/18 04:45 02/07/18 04:45 Recent Labs: Laboratory Last Values WBC 7.9 Th/cmm (4.8-10.8) 02/07/18 04:45 RBC 3.44 Mil/cmm (3.80-5.20) L 02/07/18 04:45 Hgb 9.6 gm/dL (12-16) L 02/07/18 04:45 Hct 29.4 % (41.0-60) L 02/07/18 04:45 MCV 85.3 fl (81-100) 02/07/18 04:45 MCH 27.9 pg (27.0-31.0) 02/07/18 04:45 MCHC Differential 32.7 pg (28.0-36.0) 02/07/18 04:45 RDW 16.2 % (11.5-20.0) 02/07/18 04:45 Plt Count 192 Th/cmm (150-400) 02/07/18 04:45 MPV 10.1 fl 02/07/18 04:45 Add Manual Diff YES 02/05/18 06:09 Neutrophils % 65.1 % (40.0-80.0) 02/07/18 04:45 Band Neutrophils % 0 % (0-10) 02/05/18 06:09 Lymphocytes % 24.0 % (20.0-50.0) 02/07/18 04:45 Monocytes % 7.8 % (2.0-10.0) 02/07/18 04:45 Eosinophils % 2.6 % (0.0-5.0) 02/07/18 04:45 Basophils % 0.5 % (0.0-2.0) 02/07/18 04:45 Neutrophils (Manual) 61 % (40-80) 02/05/18 06:09 Lymphocytes 33 % (20-50) 02/05/18 06:09 Monocytes 5 % (2-10) 02/05/18 06:09 Eosinophils 1 % (0-5) 02/05/18 06:09 Basophils 0 % (0-3) 02/05/18 06:09 Hypochromia 1+ 02/05/18 06:09 Eos Smear Source URINE 02/02/18 23:10 Eos Smear Total Cells NONE SEEN (NONE SEEN) 02/02/18 23:10 PT 10.0 SECONDS (9.5-11.5) 02/01/18 21:30 INR 0.96 (0.5-1.4) 02/01/18 21:30 PTT (Actin FS) 18.5 SECONDS (26.0-38.0) L 02/01/18 21:30 Sodium 138 mEq/L (136-145) 02/07/18 04:45 Potassium 3.7 mEq/L (3.5-5.1) 02/07/18 04:45 Chloride 99 mEq/L (98-107) 02/07/18 04:45 Carbon Dioxide 32.8 mEq/L (21.0-31.0) H 02/07/18 04:45 Anion Gap 9.9 (7.0-16.0) 02/07/18 04:45 BUN 46 mg/dL (7-25) H 02/07/18 04:45 Creatinine 1.2 mg/dL (0.6-1.2) 02/07/18 04:45 Est GFR ( Amer) TNP 02/07/18 04:45 Est GFR (Non-Af Amer) TNP 02/07/18 04:45 BUN/Creatinine Ratio 38.3 02/07/18 04:45 Glucose 161 mg/dL (70-105) H 02/07/18 04:45 POC Glucose 178 MG/DL (70 - 105) H 02/07/18 12:41 Whole Bld Lactic Acid 1.04 mmol/L (0.60-1.99) 02/01/18 21:30 Uric Acid 8.7 mg/dL (2.3-6.6) H 02/03/18 05:45 Calcium 9.0 mg/dL (8.6-10.3) 02/07/18 04:45 Phosphorus 3.0 mg/dL (2.5-5.0) 02/03/18 05:45 Magnesium 2.1 mg/dL (1.9-2.7) 02/06/18 04:30 Iron 38 ug/dL (27-139) 02/04/18 05:37 TIBC 239 ug/dL (250-450) L 02/04/18 05:37 Iron Saturation 16 % (15-55) 02/04/18 05:37 Unsaturated IBC 201 ug/dL (118-369) 02/04/18 05:37 Ferritin 58 ng/mL (15-150) 02/04/18 05:37 Total Bilirubin 0.2 mg/dL (0.3-1.0) L 02/01/18 21:30 AST 17 U/L (13-39) 02/01/18 21:30 ALT 16 U/L (7-52) 02/01/18 21:30 Alkaline Phosphatase 79 U/L (34-104) 02/01/18 21:30 Ammonia 51 umol/L (16-53) 02/02/18 11:55 Creatine Kinase 25 U/L (30-223) L 02/01/18 21:30 Troponin I 0.03 ng/mL (0.01-0.05) 02/01/18 21:30 B-Natriuretic Peptide 106.0 pg/mL (5.0-100.0) H 02/04/18 05:37 Total Protein 6.9 gm/dL (6.0-8.3) 02/01/18 21:30 Albumin 3.3 gm/dL (3.7-5.3) L 02/01/18 21:30 Globulin 3.6 gm/dL 02/01/18 21:30 Albumin/Globulin Ratio 0.9 (1.0-1.8) L 02/01/18 21:30 Vitamin B12 1520 pg/mL (232-1245) H 02/04/18 05:37 Folic Acid >20.0 ng/mL (>3.0) 02/04/18 05:37 TSH 2.52 uIU/ml (0.34-5.60) 02/03/18 05:45 Urine Osmolality 472 mOsmol/kg 02/02/18 23:10 Ur Random Sodium 40 mmol/L 02/02/18 23:10 Urine Creatinine 32.2 mg/dl 02/02/18 23:10 Urine Microalbumin 185.5 02/02/18 23:10 Microalb/Creat Ratio 576.1 02/02/18 23:10 Stool Occult Blood POSITIVE (NEGATIVE) H 02/04/18 05:00 Blood Type O POSITIVE 09/09/18 08:36 Antibody Screen NEGATIVE 02/05/18 08:36 Crossmatch See Detail 02/05/18 08:36 - Physical Exam Vitals and I&O: Vital Signs Temp 96.5 F 02/07/18 12:10 Pulse 71 02/07/18 12:10 Resp 18 02/07/18 12:10 BP 160/70 02/07/18 12:10 Pulse Ox 99 02/07/18 12:10 Intake & Output 02/06/18 02/07/18 02/07/18 18:59 06:59 18:59 Intake Total 2150 894 1000 Balance 2150 894 1000 Weight (lbs) 54.431 kg 53.07 kg Intake: Intake, IV Amount 1000 1000 Dextrose 5% 1,000 ml @ 70 1000 1000 mls/hr IV .[id number] [facility] Rx#:[id number] Oral 0 Tube Feeding 850 804 Other 300 90 Other: # Voids 2 # Bowel Movements 2 Weight Source Bedscale Bedscale Active Medications: Current Medications Amlodipine Besylate (Norvasc) 10 mg GT DAILY [facility] Stop: 04/03/18 08:59 Last Admin: 02/07/18 09:39 Dose: 10 mg Ascorbic Acid (Vitamin C) 500 mg GT BID ED Stop: 04/03/18 08:59 Last Admin: 02/07/18 09:39 Dose: 500 mg Glucagon (Glucagen) 1 mg SUBQ PRN PRN PRN Reason: BS BELOW 60 & NOT TOLERATE PO Stop: 03/03/18 23:38 Haloperidol Decanoate (Haldol Dec) 25 mg IM [id number] [facility] Stop: 04/02/18 23:44 Dextrose (D5w) 1,000 mls @ 70 mls/hr IV .[id number] [facility] Stop: 04/05/18 13:14 Last Admin: 02/07/18 13:37 Dose: 70 mls/hr Insulin Aspart (Novolog Insulin Sliding Scale) 0 units SUBQ Q6HR [facility]; Protocol Stop: 04/03/18 00:59 Last Admin: 02/07/18 13:47 Dose: 2 units Mirtazapine (Remeron) 15 mg GT HS [facility]; Protocol Stop: 04/03/18 20:59 Multivitamins/Minerals (Theragran M) 15 ml GT DAILY [facility] Stop: 04/03/18 08:59 Last Admin: 02/07/18 09:39 Dose: 15 ml Pantoprazole Sodium (Protonix) 40 mg GT DAILY@1200 ED Stop: 04/03/18 11:59 Last Admin: 02/07/18 13:32 Dose: 40 mg General: Alert, No acute distress HEENT: Atraumatic, Mucous membr. moist/pink Neck: Supple, +2 carotid pulse wo bruit Cardiovascular: Regular rate, Normal S1, Normal S2 Lungs: Clear to auscultation Abdomen: Bowel sounds, Soft Extremities: no Edema Neurological: Sensation intact Psych/Mental Status: Mood NL - Procedures Procedures: Procedures Procedure Code Date EGD PLACE GASTROSTOMY TUBE 38916 06/21/17 EXCISION OF ASCENDING COLON, ENDO, DIAGN [id number] 06/21/17 EXCISION OF CECUM, ENDO, DIAGN [id number] 06/21/17 EXCISION OF SIGMOID COLON, ENDO, DIAGN [id number] 06/21/17 EXCISION OF STOMACH, ENDO, DIAGN [id number] 06/21/17 INSERTION OF FEEDING DEVICE INTO STOMACH, PERC APPROACH [id number] 06/21/17 INSERTION OF INFUSION DEV INTO SUP VENA CAVA, PERC APPROACH [id number] 06/21/17 INTRODUCTION OF NUTRITIONAL INTO CENTRAL VEIN, PERC APPROACH [id number] 06/21/17 PARTIAL REMOVAL OF COLON 21634 06/21/17 RESECTION OF RIGHT LARGE INTESTINE, OPEN APPROACH [id number] 06/21/17 RESPIRATORY VENTILATION, LESS THAN 24 CONSECUTIVE HOURS [id number] 06/21/17 TRANSFUSE NONAUT RED BLOOD CELLS IN PERIPH VEIN, PERC 23567E8 02/01/18 Assessment/Plan - Assessment Assessment: LEONIE on CKD ALOC Met Enceph Contraction Alk Severe Dehydration T2DM w/ CKD Ess Htn w/ CKD Anemia Acute LGI bleed on CD - Plan Plan: Lab - Result Diagrams 02/03/18 05:45 02/03/18 05:45 Current Medications Amlodipine Besylate (Norvasc) 10 mg GT DAILY ED Stop: 04/03/18 08:59 Last Admin: 02/03/18 09:45 Dose: 10 mg Ascorbic Acid (Vitamin C) 500 mg GT BID ED Stop: 04/03/18 08:59 Last Admin: 02/03/18 09:43 Dose: 500 mg Glucagon (Glucagen) 1 mg SUBQ PRN PRN PRN Reason: BS BELOW 60 & NOT TOLERATE PO Stop: 03/03/18 23:38 Haloperidol Decanoate (Haldol Dec) 25 mg IM [id number] [facility] Stop: 04/02/18 23:44 Dextrose (D5w) 1,000 mls @ 125 mls/hr IV .Q8H ED Stop: 04/03/18 01:59 Last Infusion: 02/03/18 10:30 Dose: 125 mls/hr Insulin Aspart (Novolog Insulin Sliding Scale) 0 units SUBQ Q6HR [facility]; Protocol Stop: 04/03/18 00:59 Last Admin: 02/03/18 12:23 Dose: Not Given Mirtazapine (Remeron) 15 mg GT HS ED; Protocol Stop: 04/03/18 20:59 Multivitamins/Minerals (Theragran M) 15 ml GT DAILY ED Stop: 04/03/18 08:59 Last Admin: 02/03/18 09:42 Dose: 15 ml Pantoprazole Sodium (Protonix) 40 mg GT DAILY@1200 ED Stop: 04/03/18 11:59 Last Admin: 02/03/18 13:18 Dose: 40 mg Lab - Result Diagrams 02/07/18 04:45 02/07/18 04:45 Na now 138 replaced K Kidney fnc improved w/ BUN/CR of 46/1.2 continue hydration Hgb/Hct improved after transfusion f/u electrolytes, CBC Nutritional Asmnt/Malnutr-PDOC - Dietary Evaluation Malnutrition Findings (Please click <Entered> for more info): Nutritional Asmnt/Malnutrition Start: 02/03/18 17: 04 Text: Status: Complete Freq: Protocol: Document 02/03/18 17:10 DIANELYSG (Rec: 02/03/18 17:37 JENY [email or web address]) Nutritional Asmnt/Malnutrition Patient General Information Nutritional Screening High Risk Diagnosis acute renal failure Pertinent Medical Hx/Surgical Hx HTN, DM, dyslipidemia, demntia , acute renal insufficiency, CHF Subjective Information Consult received for non intact wound. Pt seen lying in bed at time of visit, nonverbal. Verified glucerna 1 .2 running at 67ml/hr at this time. Current Diet Order/ Nutrition Support glucerna 1.2 at 67ml/hr x 20hr , providing 1608kcal and 80g protein Pertinent Medications vit C, novolog, remeron, theragran, protonix Pertinent Labs 02/03 Na 148, BUN 85, Cr 1.4, glucose 159, POC 132-148 Nutritional Hx/Data Height 1.6 m Height (Calculated Centimeters) 160.0 Current Weight (lbs) 49.895 kg Weight (Calculated Kilograms) 49.9 Weight (Calculated Grams) 03399.2 Cecil Body Weight 115 Body Mass Index (BMI) 19.5 Weight Status Approriate GI Symptoms GI Symptoms None Last BM 02/03 Difficult in: None Skin Integrity/Comment: non intact skin to sacral area per wound care note benji 10 Estimated Nutritional Goals BEE in Kcals: Using Current wt Calories/Kcals/Kg 27-32 Kcals Calculated 6810-6300 Protein: Using Current wt Protein g/k.2-1.4 monitor renal labs Protein Calculated 60-70 Fluid: ml per MD Nutritional Problem 2. Problem Problem increased nutrition needs Etiology imparied skin integrity Signs/Symptoms: non intact wound to sacral area 1. Problem Problem altered nutrition related labs Etiology acute renal failure, hx of DM Signs/Symptoms: Na 148, BUN 85, Cr 1.4, glucose 159, POC 132-148 Malnutrition Alert Is there a minimum of two criteria No selected? Query Text:Check all the applicable criteria. A minimum of two criteria are recommended for diagnosis of either severe or non-severe malnutrition. Malnutrition Related to Morbid Obesity Malnutrition related to morbid obesity No Intervention/Recommendation Comments 1. Recommend decreasing Glucerna 1.2 rate to 60ml/hr x 20hr considering elevated BUN and excesive protein intake. It provides 1608kcal, 80g protein, 888ml free water, meeting 100% of nutritional needs 2. Consider adding Amrit BID via [facility] to help with wound healing. 3. Monitor TF rate, tolerance, wt, skin integrity and labs 4. F/U as high risk in 2-3 days, 02/05-02/06 Expected Outcomes/Goals Expected Outcomes/Goals 1. Pt to meet at least 75% of nutritional needs via nutrition support with tolerance 2. Wt stability, skin integrity to improve., labs to approach WNL.
--- NOTE | 2018-02-07 15:12 | GI Progress Note ---
Subjective - Review of Systems Subjective: NO GI BLEEDING ILENE TUBE FEEDS Objective - Results Result Diagrams: 02/07/18 04:45 02/07/18 04:45 Recent Labs: Laboratory Last Values WBC 7.9 Th/cmm (4.8-10.8) 02/07/18 04:45 RBC 3.44 Mil/cmm (3.80-5.20) L 02/07/18 04:45 Hgb 9.6 gm/dL (12-16) L 02/07/18 04:45 Hct 29.4 % (41.0-60) L 02/07/18 04:45 MCV 85.3 fl (81-100) 02/07/18 04:45 MCH 27.9 pg (27.0-31.0) 02/07/18 04:45 MCHC Differential 32.7 pg (28.0-36.0) 02/07/18 04:45 RDW 16.2 % (11.5-20.0) 02/07/18 04:45 Plt Count 192 Th/cmm (150-400) 02/07/18 04:45 MPV 10.1 fl 02/07/18 04:45 Add Manual Diff YES 02/05/18 06:09 Neutrophils % 65.1 % (40.0-80.0) 02/07/18 04:45 Band Neutrophils % 0 % (0-10) 02/05/18 06:09 Lymphocytes % 24.0 % (20.0-50.0) 02/07/18 04:45 Monocytes % 7.8 % (2.0-10.0) 02/07/18 04:45 Eosinophils % 2.6 % (0.0-5.0) 02/07/18 04:45 Basophils % 0.5 % (0.0-2.0) 02/07/18 04:45 Neutrophils (Manual) 61 % (40-80) 02/05/18 06:09 Lymphocytes 33 % (20-50) 02/05/18 06:09 Monocytes 5 % (2-10) 02/05/18 06:09 Eosinophils 1 % (0-5) 02/05/18 06:09 Basophils 0 % (0-3) 02/05/18 06:09 Hypochromia 1+ 02/05/18 06:09 Eos Smear Source URINE 02/02/18 23:10 Eos Smear Total Cells NONE SEEN (NONE SEEN) 02/02/18 23:10 PT 10.0 SECONDS (9.5-11.5) 02/01/18 21:30 INR 0.96 (0.5-1.4) 02/01/18 21:30 PTT (Actin FS) 18.5 SECONDS (26.0-38.0) L 02/01/18 21:30 Sodium 138 mEq/L (136-145) 02/07/18 04:45 Potassium 3.7 mEq/L (3.5-5.1) 02/07/18 04:45 Chloride 99 mEq/L (98-107) 02/07/18 04:45 Carbon Dioxide 32.8 mEq/L (21.0-31.0) H 02/07/18 04:45 Anion Gap 9.9 (7.0-16.0) 02/07/18 04:45 BUN 46 mg/dL (7-25) H 02/07/18 04:45 Creatinine 1.2 mg/dL (0.6-1.2) 02/07/18 04:45 Est GFR ( Amer) TNP 02/07/18 04:45 Est GFR (Non-Af Amer) TNP 02/07/18 04:45 BUN/Creatinine Ratio 38.3 02/07/18 04:45 Glucose 161 mg/dL (70-105) H 02/07/18 04:45 POC Glucose 178 MG/DL (70 - 105) H 02/07/18 12:41 Whole Bld Lactic Acid 1.04 mmol/L (0.60-1.99) 02/01/18 21:30 Uric Acid 8.7 mg/dL (2.3-6.6) H 02/03/18 05:45 Calcium 9.0 mg/dL (8.6-10.3) 02/07/18 04:45 Phosphorus 3.0 mg/dL (2.5-5.0) 02/03/18 05:45 Magnesium 2.1 mg/dL (1.9-2.7) 02/06/18 04:30 Iron 38 ug/dL (27-139) 02/04/18 05:37 TIBC 239 ug/dL (250-450) L 02/04/18 05:37 Iron Saturation 16 % (15-55) 02/04/18 05:37 Unsaturated IBC 201 ug/dL (118-369) 02/04/18 05:37 Ferritin 58 ng/mL (15-150) 02/04/18 05:37 Total Bilirubin 0.2 mg/dL (0.3-1.0) L 02/01/18 21:30 AST 17 U/L (13-39) 02/01/18 21:30 ALT 16 U/L (7-52) 02/01/18 21:30 Alkaline Phosphatase 79 U/L (34-104) 02/01/18 21:30 Ammonia 51 umol/L (16-53) 02/02/18 11:55 Creatine Kinase 25 U/L (30-223) L 02/01/18 21:30 Troponin I 0.03 ng/mL (0.01-0.05) 02/01/18 21:30 B-Natriuretic Peptide 106.0 pg/mL (5.0-100.0) H 02/04/18 05:37 Total Protein 6.9 gm/dL (6.0-8.3) 02/01/18 21:30 Albumin 3.3 gm/dL (3.7-5.3) L 02/01/18 21:30 Globulin 3.6 gm/dL 02/01/18 21:30 Albumin/Globulin Ratio 0.9 (1.0-1.8) L 02/01/18 21:30 Vitamin B12 1520 pg/mL (232-1245) H 02/04/18 05:37 Folic Acid >20.0 ng/mL (>3.0) 02/04/18 05:37 TSH 2.52 uIU/ml (0.34-5.60) 02/03/18 05:45 Urine Osmolality 472 mOsmol/kg 02/02/18 23:10 Ur Random Sodium 40 mmol/L 02/02/18 23:10 Urine Creatinine 32.2 mg/dl 02/02/18 23:10 Urine Microalbumin 185.5 02/02/18 23:10 Microalb/Creat Ratio 576.1 02/02/18 23:10 Stool Occult Blood POSITIVE (NEGATIVE) H 02/04/18 05:00 Blood Type O POSITIVE 02/05/18 08:36 Antibody Screen NEGATIVE 02/05/18 08:36 Crossmatch See Detail 02/05/18 08:36 - Physical Exam Vitals and I&O: Vital Signs Temp 96.5 F 02/07/18 12:10 Pulse 71 02/07/18 12:10 Resp 18 02/07/18 12:10 BP 160/70 02/07/18 12:10 Pulse Ox 99 02/07/18 12:10 Intake & Output 02/06/18 02/07/18 02/07/18 18:59 06:59 18:59 Intake Total 2150 894 1000 Balance 2150 894 1000 Weight (lbs) 54.431 kg 53.07 kg Intake: Intake, IV Amount 1000 1000 Dextrose 5% 1,000 ml @ 70 1000 1000 mls/hr IV .[id number] [facility] Rx#:[id number] Oral 0 Tube Feeding 850 804 Other 300 90 Other: # Voids 2 # Bowel Movements 2 Weight Source Bedscale Bedscale Active Medications: Current Medications Amlodipine Besylate (Norvasc) 10 mg GT DAILY [facility] Stop: 04/03/18 08:59 Last Admin: 02/07/18 09:39 Dose: 10 mg Ascorbic Acid (Vitamin C) 500 mg GT BID ED Stop: 04/03/18 08:59 Last Admin: 02/07/18 09:39 Dose: 500 mg Glucagon (Glucagen) 1 mg SUBQ PRN PRN PRN Reason: BS BELOW 60 & NOT TOLERATE PO Stop: 03/03/18 23:38 Haloperidol Decanoate (Haldol Dec) 25 mg IM [id number] [facility] Stop: 04/09/18 08:59 Dextrose (D5w) 1,000 mls @ 70 mls/hr IV .[id number] [facility] Stop: 04/05/18 13:14 Last Admin: 02/07/18 13:37 Dose: 70 mls/hr Insulin Aspart (Novolog Insulin Sliding Scale) 0 units SUBQ Q6HR [facility]; Protocol Stop: 04/03/18 00:59 Last Admin: 02/07/18 13:47 Dose: 2 units Mirtazapine (Remeron) 15 mg GT HS [facility]; Protocol Stop: 04/03/18 20:59 Multivitamins/Minerals (Theragran M) 15 ml GT DAILY [facility] Stop: 04/03/18 08:59 Last Admin: 02/07/18 09:39 Dose: 15 ml Pantoprazole Sodium (Protonix) 40 mg GT DAILY@1200 ED Stop: 04/03/18 11:59 Last Admin: 02/07/18 13:32 Dose: 40 mg General: Alert, No acute distress HEENT: Atraumatic, Mucous membr. moist/pink Neck: Supple, +2 carotid pulse wo bruit Cardiovascular: Regular rate, Normal S1, Normal S2 Lungs: Clear to auscultation Abdomen: Bowel sounds, Soft Extremities: no Edema Neurological: Sensation intact Psych/Mental Status: Mood NL - Procedures Procedures: Procedures Procedure Code Date EGD PLACE GASTROSTOMY TUBE 87582 06/21/17 EXCISION OF ASCENDING COLON, ENDO, DIAGN [id number] 06/21/17 EXCISION OF CECUM, ENDO, DIAGN [id number] 06/21/17 EXCISION OF SIGMOID COLON, ENDO, DIAGN [id number] 06/21/17 EXCISION OF STOMACH, ENDO, DIAGN [id number] 06/21/17 INSERTION OF FEEDING DEVICE INTO STOMACH, PERC APPROACH [id number] 06/21/17 INSERTION OF INFUSION DEV INTO SUP VENA CAVA, PERC APPROACH 16LU56X 06/21/17 INTRODUCTION OF NUTRITIONAL INTO CENTRAL VEIN, PERC APPROACH 7C3286Y 06/21/17 PARTIAL REMOVAL OF COLON 62618 06/21/17 RESECTION OF RIGHT LARGE INTESTINE, OPEN APPROACH [id number] 06/21/17 RESPIRATORY VENTILATION, LESS THAN 24 CONSECUTIVE HOURS [id number] 06/21/17 TRANSFUSE NONAUT RED BLOOD CELLS IN PERIPH VEIN, PERC 18715Z4 02/01/18 Assessment/Plan - Assessment Assessment: 77 YO FEMALE WITH OCCULT BLOOD + NO OVERT GI BLEEDING RECENT EGD SHOWED MW TEAR AND GASTRIC ULCERS RECENT COLO SHOWED COLON POLYP, DIVERTICULOSIS, HEMORRHOIDS BLEEDING SCAN NEG 1.FOLLOW H/H; TRANSFUSE PRN 2.ANGIO IF REBLEEDS 3.MAY NEED CAPSULE ENDOSCOPY; MAY NOT BE A GOOD CANDIDATE
[2018-02-08] MEDS: INSULIN ASPART SLIDING SCALE 100 UNITS/ML UNIT SUBQ SCH ×4 (01:03→19:57)
[2018-02-08] MEDS: Dextrose 5% 1,000 ML IV SCH ×2 (03:55→22:06)
[2018-02-08 06:56] LABS: % BASOPHILS 0.2 % (0.0-2.0); % MONOCYTES 8.5 % (2.0-10.0); % NEUTROPHILS 66.3 % (40.0-80.0); EOSINOPHILE ABSOLUTE 0.2 Th/cmm (0.1-0.4); HEMATOCRIT 32.4 % (41.0-60); HEMOGLOBIN 10.8 gm/dL (12-16); LYMPHOCYTE ABSOLUTE 1.8 Th/cmm (1.5-3.0); MEAN CELL VOLUME 85.4 fl (81-100); MEAN CORPUSCULAR HEMOGLOBIN 28.5 pg (27.0-31.0); MEAN CORPUSCULAR HGB CONC 33.4 pg (28.0-36.0); MEAN PLATELET VOLUME 10.2 fl; MONOCYTE ABSOLUTE 0.7 Th/cmm (0.3-1.0); NEUTROPHILE ABSOLUTE 5.3 Th/cmm (1.8-8.0); PLATELET COUNT 189 Th/cmm (150-400); RED BLOOD COUNT 3.79 Mil/cmm (3.80-5.20); RED CELL DISTRIBUTION WIDTH 16.1 % (11.5-20.0)
[2018-02-08 07:10] LABS: ANION GAP 10.9 (7.0-16.0); BUN - UREA NITROGEN 44 mg/dL (7-25); CALCIUM SERUM 9.4 mg/dL (8.6-10.3); CARBON DIOXIDE 33.7 mEq/L (21.0-31.0); CHLORIDE 98 mEq/L (98-107); CREATININE - SERUM 1.2 mg/dL (0.6-1.2); GLUCOSE 162 mg/dL (70-105); POTASSIUM SERUM 3.6 mEq/L (3.5-5.1); SODIUM SERUM 139 mEq/L (136-145)
--- NOTE | 2018-02-08 07:57 | GI Progress Note ---
Subjective - Review of Systems Subjective: NO GI BLEEDING ILENE TUBE FEEDS Objective - Results Result Diagrams: 02/08/18 05:50 02/08/18 05:50 Recent Labs: Laboratory Last Values WBC 8.0 Th/cmm (4.8-10.8) 02/08/18 05:50 RBC 3.79 Mil/cmm (3.80-5.20) L 02/08/18 05:50 Hgb 10.8 gm/dL (12-16) L 02/08/18 05:50 Hct 32.4 % (41.0-60) L 02/08/18 05:50 MCV 85.4 fl (81-100) 02/08/18 05:50 MCH 28.5 pg (27.0-31.0) 02/08/18 05:50 MCHC Differential 33.4 pg (28.0-36.0) 02/08/18 05:50 RDW 16.1 % (11.5-20.0) 02/08/18 05:50 Plt Count 189 Th/cmm (150-400) 02/08/18 05:50 MPV 10.2 fl 02/08/18 05:50 Add Manual Diff YES 02/05/18 06:09 Neutrophils % 66.3 % (40.0-80.0) 02/08/18 05:50 Band Neutrophils % 0 % (0-10) 02/05/18 06:09 Lymphocytes % 22.0 % (20.0-50.0) 02/08/18 05:50 Monocytes % 8.5 % (2.0-10.0) 02/08/18 05:50 Eosinophils % 3.0 % (0.0-5.0) 02/08/18 05:50 Basophils % 0.2 % (0.0-2.0) 02/08/18 05:50 Neutrophils (Manual) 61 % (40-80) 02/05/18 06:09 Lymphocytes 33 % (20-50) 02/05/18 06:09 Monocytes 5 % (2-10) 02/05/18 06:09 Eosinophils 1 % (0-5) 02/05/18 06:09 Basophils 0 % (0-3) 02/05/18 06:09 Hypochromia 1+ 02/05/18 06:09 Eos Smear Source URINE 02/02/18 23:10 Eos Smear Total Cells NONE SEEN (NONE SEEN) 02/02/18 23:10 PT 10.0 SECONDS (9.5-11.5) 02/01/18 21:30 INR 0.96 (0.5-1.4) 02/01/18 21:30 PTT (Actin FS) 18.5 SECONDS (26.0-38.0) L 02/01/18 21:30 Sodium 139 mEq/L (136-145) 02/08/18 05:50 Potassium 3.6 mEq/L (3.5-5.1) 02/08/18 05:50 Chloride 98 mEq/L (98-107) 02/08/18 05:50 Carbon Dioxide 33.7 mEq/L (21.0-31.0) H 02/08/18 05:50 Anion Gap 10.9 (7.0-16.0) 02/08/18 05:50 BUN 44 mg/dL (7-25) H 02/08/18 05:50 Creatinine 1.2 mg/dL (0.6-1.2) 02/08/18 05:50 Est GFR ( Amer) TNP 02/08/18 05:50 Est GFR (Non-Af Amer) TNP 02/08/18 05:50 BUN/Creatinine Ratio 36.7 02/08/18 05:50 Glucose 162 mg/dL (70-105) H 02/08/18 05:50 POC Glucose 155 MG/DL (70 - 105) H 02/08/18 05:30 Whole Bld Lactic Acid 1.04 mmol/L (0.60-1.99) 02/01/18 21:30 Uric Acid 8.7 mg/dL (2.3-6.6) H 02/03/18 05:45 Calcium 9.4 mg/dL (8.6-10.3) 02/08/18 05:50 Phosphorus 3.0 mg/dL (2.5-5.0) 02/03/18 05:45 Magnesium 2.1 mg/dL (1.9-2.7) 02/06/18 04:30 Iron 38 ug/dL (27-139) 02/04/18 05:37 TIBC 239 ug/dL (250-450) L 02/04/18 05:37 Iron Saturation 16 % (15-55) 02/04/18 05:37 Unsaturated IBC 201 ug/dL (118-369) 02/04/18 05:37 Ferritin 58 ng/mL (15-150) 02/04/18 05:37 Total Bilirubin 0.2 mg/dL (0.3-1.0) L 02/01/18 21:30 AST 17 U/L (13-39) 02/01/18 21:30 ALT 16 U/L (7-52) 02/01/18 21:30 Alkaline Phosphatase 79 U/L (34-104) 02/01/18 21:30 Ammonia 51 umol/L (16-53) 02/02/18 11:55 Creatine Kinase 25 U/L (30-223) L 02/01/18 21:30 Troponin I 0.03 ng/mL (0.01-0.05) 02/01/18 21:30 B-Natriuretic Peptide 106.0 pg/mL (5.0-100.0) H 02/04/18 05:37 Total Protein 6.9 gm/dL (6.0-8.3) 02/01/18 21:30 Albumin 3.3 gm/dL (3.7-5.3) L 02/01/18 21:30 Globulin 3.6 gm/dL 02/01/18 21:30 Albumin/Globulin Ratio 0.9 (1.0-1.8) L 02/01/18 21:30 Vitamin B12 1520 pg/mL (232-1245) H 02/04/18 05:37 Folic Acid >20.0 ng/mL (>3.0) 02/04/18 05:37 TSH 2.52 uIU/ml (0.34-5.60) 02/03/18 05:45 Urine Osmolality 472 mOsmol/kg 02/02/18 23:10 Ur Random Sodium 40 mmol/L 02/02/18 23:10 Urine Creatinine 32.2 mg/dl 02/02/18 23:10 Urine Microalbumin 185.5 02/02/18 23:10 Microalb/Creat Ratio 576.1 02/02/18 23:10 Stool Occult Blood POSITIVE (NEGATIVE) H 02/04/18 05:00 Blood Type O POSITIVE 02/05/18 08:36 Antibody Screen NEGATIVE 02/05/18 08:36 Crossmatch See Detail 02/05/18 08:36 - Physical Exam Vitals and I&O: Vital Signs Temp 97.6 F 02/08/18 04:00 Pulse 76 02/08/18 04:00 Resp 17 02/08/18 04:00 BP 155/86 02/08/18 04:00 Pulse Ox 98 02/08/18 04:00 Intake & Output 02/07/18 02/08/18 02/08/18 18:59 06:59 18:59 Intake Total 1000 1000 Balance 1000 1000 Weight (lbs) 54.34 kg Intake: Intake, IV Amount 1000 1000 Dextrose 5% 1,000 ml @ 70 1000 1000 mls/hr IV .[id number] [facility] Rx#:[id number] Other: # Voids 2 # Bowel Movements 1 Weight Source Bedscale Active Medications: Current Medications Amlodipine Besylate (Norvasc) 10 mg GT DAILY [facility] Stop: 04/03/18 08:59 Last Admin: 02/07/18 09:39 Dose: 10 mg Ascorbic Acid (Vitamin C) 500 mg GT BID ED Stop: 04/03/18 08:59 Last Admin: 02/07/18 17:42 Dose: 500 mg Glucagon (Glucagen) 1 mg SUBQ PRN PRN PRN Reason: BS BELOW 60 & NOT TOLERATE PO Stop: 03/03/18 23:38 Haloperidol Decanoate (Haldol Dec) 25 mg IM [id number] [facility] Stop: 04/09/18 08:59 Dextrose (D5w) 1,000 mls @ 70 mls/hr IV .[id number] [facility] Stop: 04/05/18 13:14 Last Admin: 02/08/18 03:55 Dose: 70 mls/hr Insulin Aspart (Novolog Insulin Sliding Scale) 0 units SUBQ Q6HR [facility]; Protocol Stop: 04/03/18 00:59 Last Admin: 02/08/18 07:01 Dose: 2 units Mirtazapine (Remeron) 15 mg GT HS [facility]; Protocol Stop: 04/03/18 20:59 Last Admin: 02/07/18 21:16 Dose: 15 mg Multivitamins/Minerals (Theragran M) 15 ml GT DAILY ED Stop: 04/03/18 08:59 Last Admin: 09/11/18 09:39 Dose: 15 ml Pantoprazole Sodium (Protonix) 40 mg GT DAILY@1200 ED Stop: 04/03/18 11:59 Last Admin: 02/07/18 13:32 Dose: 40 mg General: Alert, No acute distress HEENT: Atraumatic, Mucous membr. moist/pink Neck: Supple, +2 carotid pulse wo bruit Cardiovascular: Regular rate, Normal S1, Normal S2 Lungs: Clear to auscultation Abdomen: Bowel sounds, Soft Extremities: no Edema Neurological: Sensation intact Psych/Mental Status: Mood NL - Procedures Procedures: Procedures Procedure Code Date EGD PLACE GASTROSTOMY TUBE 07851 06/21/17 EXCISION OF ASCENDING COLON, ENDO, DIAGN [id number] 06/21/17 EXCISION OF CECUM, ENDO, DIAGN [id number] 06/21/17 EXCISION OF SIGMOID COLON, ENDO, DIAGN [id number] 06/21/17 EXCISION OF STOMACH, ENDO, DIAGN [id number] 06/21/17 INSERTION OF FEEDING DEVICE INTO STOMACH, PERC APPROACH [id number] 06/21/17 INSERTION OF INFUSION DEV INTO SUP VENA CAVA, [facility] APPROACH [id number] 06/21/17 INTRODUCTION OF NUTRITIONAL INTO CENTRAL VEIN, PERC APPROACH [id number] 06/21/17 PARTIAL REMOVAL OF COLON [id number] 06/21/17 RESECTION OF RIGHT LARGE INTESTINE, OPEN APPROACH [id number] 06/21/17 RESPIRATORY VENTILATION, LESS THAN 24 CONSECUTIVE HOURS [id number] 06/21/17 TRANSFUSE NONAUT RED BLOOD CELLS IN PERIPH VEIN, PERC [id number] 02/01/18 Assessment/Plan - Assessment Assessment: 77 YO FEMALE WITH OCCULT BLOOD + NO OVERT GI BLEEDING RECENT EGD SHOWED MW TEAR AND GASTRIC ULCERS RECENT COLO SHOWED COLON CANCER, COLON POLYP, DIVERTICULOSIS, HEMORRHOIDS BLEEDING SCAN NEG 1.FOLLOW H/H; TRANSFUSE PRN 2.ANGIO IF REBLEEDS 3.NEEDS SURGERY EVAL FOR CECAL MASS RESECTION
[2018-02-08] MEDS: Multivitamin w/ Minerals 15 mL UDC GT SCH (09:12)
--- NOTE | 2018-02-08 11:47 | Internal Medicine Prog Note ---
Internal Medicine Subjective - Subjective Service Date: 02/08/18 Patient is:: awake, non-verbal Patient Complaints of:: congestion Per staff patient has:: tolerating meds Internal Medicine Objective - Results Result Diagrams: 02/08/18 05:50 02/08/18 05:50 Recent Labs: Laboratory Last Values WBC 8.0 Th/cmm (4.8-10.8) 02/08/18 05:50 RBC 3.79 Mil/cmm (3.80-5.20) L 02/08/18 05:50 Hgb 10.8 gm/dL (12-16) L 02/08/18 05:50 Hct 32.4 % (41.0-60) L 02/08/18 05:50 MCV 85.4 fl (81-100) 02/08/18 05:50 MCH 28.5 pg (27.0-31.0) 02/08/18 05:50 MCHC Differential 33.4 pg (28.0-36.0) 02/08/18 05:50 RDW 16.1 % (11.5-20.0) 02/08/18 05:50 Plt Count 189 Th/cmm (150-400) 02/08/18 05:50 MPV 10.2 fl 02/08/18 05:50 Add Manual Diff YES 02/05/18 06:09 Neutrophils % 66.3 % (40.0-80.0) 02/08/18 05:50 Band Neutrophils % 0 % (0-10) 02/05/18 06:09 Lymphocytes % 22.0 % (20.0-50.0) 02/08/18 05:50 Monocytes % 8.5 % (2.0-10.0) 02/08/18 05:50 Eosinophils % 3.0 % (0.0-5.0) 02/08/18 05:50 Basophils % 0.2 % (0.0-2.0) 02/08/18 05:50 Neutrophils (Manual) 61 % (40-80) 02/05/18 06:09 Lymphocytes 33 % (20-50) 02/05/18 06:09 Monocytes 5 % (2-10) 02/05/18 06:09 Eosinophils 1 % (0-5) 02/05/18 06:09 Basophils 0 % (0-3) 02/05/18 06:09 Hypochromia 1+ 02/05/18 06:09 Eos Smear Source URINE 02/02/18 23:10 Eos Smear Total Cells NONE SEEN (NONE SEEN) 02/02/18 23:10 PT 10.0 SECONDS (9.5-11.5) 02/01/18 21:30 INR 0.96 (0.5-1.4) 02/01/18 21:30 PTT (Actin FS) 18.5 SECONDS (26.0-38.0) L 02/01/18 21:30 Sodium 139 mEq/L (136-145) 02/08/18 05:50 Potassium 3.6 mEq/L (3.5-5.1) 02/08/18 05:50 Chloride 98 mEq/L (98-107) 02/08/18 05:50 Carbon Dioxide 33.7 mEq/L (21.0-31.0) H 02/08/18 05:50 Anion Gap 10.9 (7.0-16.0) 02/08/18 05:50 BUN 44 mg/dL (7-25) H 02/08/18 05:50 Creatinine 1.2 mg/dL (0.6-1.2) 02/08/18 05:50 Est GFR ( Amer) TNP 02/08/18 05:50 Est GFR (Non-Af Amer) TNP 02/08/18 05:50 BUN/Creatinine Ratio 36.7 02/08/18 05:50 Glucose 162 mg/dL (70-105) H 02/08/18 05:50 POC Glucose 125 MG/DL (70 - 105) H 02/08/18 11:41 Whole Bld Lactic Acid 1.04 mmol/L (0.60-1.99) 02/01/18 21:30 Uric Acid 8.7 mg/dL (2.3-6.6) H 02/03/18 05:45 Calcium 9.4 mg/dL (8.6-10.3) 02/08/18 05:50 Phosphorus 3.0 mg/dL (2.5-5.0) 02/03/18 05:45 Magnesium 2.1 mg/dL (1.9-2.7) 02/06/18 04:30 Iron 38 ug/dL (27-139) 02/04/18 05:37 TIBC 239 ug/dL (250-450) L 02/04/18 05:37 Iron Saturation 16 % (15-55) 02/04/18 05:37 Unsaturated IBC 201 ug/dL (118-369) 02/04/18 05:37 Ferritin 58 ng/mL (15-150) 02/04/18 05:37 Total Bilirubin 0.2 mg/dL (0.3-1.0) L 02/01/18 21:30 AST 17 U/L (13-39) 02/01/18 21:30 ALT 16 U/L (7-52) 02/01/18 21:30 Alkaline Phosphatase 79 U/L (34-104) 02/01/18 21:30 Ammonia 51 umol/L (16-53) 02/02/18 11:55 Creatine Kinase 25 U/L (30-223) L 02/01/18 21:30 Troponin I 0.03 ng/mL (0.01-0.05) 02/01/18 21:30 B-Natriuretic Peptide 106.0 pg/mL (5.0-100.0) H 02/04/18 05:37 Total Protein 6.9 gm/dL (6.0-8.3) 02/01/18 21:30 Albumin 3.3 gm/dL (3.7-5.3) L 02/01/18 21:30 Globulin 3.6 gm/dL 02/01/18 21:30 Albumin/Globulin Ratio 0.9 (1.0-1.8) L 02/01/18 21:30 Vitamin B12 1520 pg/mL (232-1245) H 02/04/18 05:37 Folic Acid >20.0 ng/mL (>3.0) 02/04/18 05:37 TSH 2.52 uIU/ml (0.34-5.60) 02/03/18 05:45 Urine Osmolality 472 mOsmol/kg 02/02/18 23:10 Ur Random Sodium 40 mmol/L 02/02/18 23:10 Urine Creatinine 32.2 mg/dl 02/02/18 23:10 Urine Microalbumin 185.5 02/02/18 23:10 Microalb/Creat Ratio 576.1 02/02/18 23:10 Stool Occult Blood POSITIVE (NEGATIVE) H 02/04/18 05:00 Blood Type O POSITIVE 02/05/18 08:36 Antibody Screen NEGATIVE 02/05/18 08:36 Crossmatch See Detail 02/05/18 08:36 - Physical Exam Vitals and I&O: Vital Signs Temp 96.5 F 02/08/18 11:38 Pulse 55 02/08/18 11:38 Resp 18 02/08/18 11:38 BP 130/69 02/08/18 11:38 Pulse Ox 98 02/08/18 11:38 Intake & Output 02/07/18 02/08/18 02/08/18 18:59 06:59 18:59 Intake Total 1000 1000 Balance 1000 1000 Weight (lbs) 119 lb 12.8 oz Intake: Intake, IV Amount 1000 1000 Dextrose 5% 1,000 ml @ 70 1000 1000 mls/hr IV .[id number] [facility] Rx#:[id number] Other: # Voids 2 # Bowel Movements 1 Weight Source Bedscale Active Medications: Current Medications Amlodipine Besylate (Norvasc) 10 mg GT DAILY [facility] Stop: 04/03/18 08:59 Last Admin: 02/08/18 09:12 Dose: 10 mg Ascorbic Acid (Vitamin C) 500 mg GT BID [facility] Stop: 04/03/18 08:59 Last Admin: 02/08/18 09:10 Dose: 500 mg Glucagon (Glucagen) 1 mg SUBQ PRN PRN PRN Reason: BS BELOW 60 & NOT TOLERATE PO Stop: 03/03/18 23:38 Haloperidol Decanoate (Haldol Dec) 25 mg IM [id number] [facility] Stop: 04/09/18 08:59 Last Admin: 02/08/18 09:12 Dose: 25 mg Dextrose (D5w) 1,000 mls @ 70 mls/hr IV .[id number] [facility] Stop: 04/05/18 13:14 Last Admin: 02/08/18 03:55 Dose: 70 mls/hr Insulin Aspart (Novolog Insulin Sliding Scale) 0 units SUBQ Q6HR [facility]; Protocol Stop: 04/03/18 00:59 Last Admin: 02/08/18 07:01 Dose: 2 units Mirtazapine (Remeron) 15 mg GT HS [facility]; Protocol Stop: 04/03/18 20:59 Last Admin: 02/07/18 21:16 Dose: 15 mg Multivitamins/Minerals (Theragran M) 15 ml GT DAILY [facility] Stop: 04/03/18 08:59 Last Admin: 02/08/18 09:12 Dose: 15 ml Pantoprazole Sodium (Protonix) 40 mg GT DAILY@1200 ED Stop: 04/03/18 11:59 Last Admin: 02/07/18 13:32 Dose: 40 mg General: weak HEENT: NC/AT, PERRLA Neck: Supple Cardiovascular: RRR, Normal S1, Normal S2 Abdomen: soft, non-tender, non-distended, +GT - Procedures Procedures: Procedures Procedure Code Date EGD PLACE GASTROSTOMY TUBE 83762 06/21/17 EXCISION OF ASCENDING COLON, ENDO, DIAGN [id number] 06/21/17 EXCISION OF CECUM, ENDO, DIAGN [id number] 06/21/17 EXCISION OF SIGMOID COLON, ENDO, DIAGN [id number] 06/21/17 EXCISION OF STOMACH, ENDO, DIAGN [id number] 06/21/17 INSERTION OF FEEDING DEVICE INTO STOMACH, PERC APPROACH [id number] 06/21/17 INSERTION OF INFUSION DEV INTO SUP VENA CAVA, PERC APPROACH [id number] 06/21/17 INTRODUCTION OF NUTRITIONAL INTO CENTRAL VEIN, PERC APPROACH [id number] 06/21/17 PARTIAL REMOVAL OF COLON 74872 06/21/17 RESECTION OF RIGHT LARGE INTESTINE, OPEN APPROACH [id number] 06/21/17 RESPIRATORY VENTILATION, LESS THAN 24 CONSECUTIVE HOURS [id number] 06/21/17 TRANSFUSE NONAUT RED BLOOD CELLS IN PERIPH VEIN, PERC 58616Q4 02/01/18 Internal Medicine Assmt/Plan - Assessment Assessment: cecal mass Severe dehydration-better history of acute renal failure diabetes congestive heart failure dementia, anxiety stool ob positive . - Plan Plan: surgical consultation for possible cecal mass resection continue ivf for hydration follow up labs in am monitor h/h continue current plan of care Nutritional Asmnt/Malnutr-PDOC - Dietary Evaluation Malnutrition Findings (Please click <Entered> for more info): Nutritional Asmnt/Malnutrition Start: 02/03/18 17: 04 Text: Status: Complete Freq: Protocol: Document 02/03/18 17:10 GRISELDA (Rec: 02/03/18 17:37 GRISELDA [email or web address]) Nutritional Asmnt/Malnutrition Patient General Information Nutritional Screening High Risk Diagnosis acute renal failure Pertinent Medical Hx/Surgical Hx HTN, DM, dyslipidemia, demntia , acute renal insufficiency, CHF Subjective Information Consult received for non intact wound. Pt seen lying in bed at time of visit, nonverbal. Verified glucerna 1 .2 running at 67ml/hr at this time. Current Diet Order/ Nutrition Support glucerna 1.2 at 67ml/hr x 20hr , providing 1608kcal and 80g protein Pertinent Medications vit C, novolog, remeron, theragran, protonix Pertinent Labs 02/03 Na 148, BUN 85, Cr 1.4, glucose 159, POC 132-148 Nutritional Hx/Data Height 5 ft 3 in Height (Calculated Centimeters) 160.0 Current Weight (lbs) 110 lb Weight (Calculated Kilograms) 49.9 Weight (Calculated Grams) 38467.2 [place] Body Weight 115 Body Mass Index (BMI) 19.5 Weight Status Approriate GI Symptoms GI Symptoms None Last BM 02/03 Difficult in: None Skin Integrity/Comment: non intact skin to sacral area per wound care note benji 10 Estimated Nutritional Goals BEE in Kcals: Using Current wt Calories/Kcals/Kg 27-32 Kcals Calculated 7167-2362 Protein: Using Current wt Protein g/k.2-1.4 monitor renal labs Protein Calculated 60-70 Fluid: ml per MD Nutritional Problem 2. Problem Problem increased nutrition needs Etiology imparied skin integrity Signs/Symptoms: non intact wound to sacral area 1. Problem Problem altered nutrition related labs Etiology acute renal failure, hx of DM Signs/Symptoms: Na 148, BUN 85, Cr 1.4, glucose 159, POC 132-148 Malnutrition Alert Is there a minimum of two criteria No selected? Query Text:Check all the applicable criteria. A minimum of two criteria are recommended for diagnosis of either severe or non-severe malnutrition. Malnutrition Related to Morbid Obesity Malnutrition related to morbid obesity No Intervention/Recommendation Comments 1. Recommend decreasing Glucerna 1.2 rate to 60ml/hr x 20hr considering elevated BUN and excesive protein intake. It provides 1608kcal, 80g protein, 888ml free water, meeting 100% of nutritional needs 2. Consider adding Amrit BID via Gtube to help with wound healing. 3. Monitor TF rate, tolerance, wt, skin integrity and labs 4. F/U as high risk in 2-3 days, 02/05-02/06 Expected Outcomes/Goals Expected Outcomes/Goals 1. Pt to meet at least 75% of nutritional needs via nutrition support with tolerance 2. Wt stability, skin integrity to improve., labs to approach WNL.
[2018-02-08] MEDS: Pantoprazole 40 mg/Packet GT SCH (12:24)
--- NOTE | 2018-02-08 13:46 | General Progress Note ---
Subjective - Review of Systems Service Date: 02/08/18 Subjective: sleeping, comfortable Objective - Results Result Diagrams: 02/08/18 05:50 02/08/18 05:50 Recent Labs: Laboratory Last Values WBC 8.0 Th/cmm (4.8-10.8) 02/08/18 05:50 RBC 3.79 Mil/cmm (3.80-5.20) L 02/08/18 05:50 Hgb 10.8 gm/dL (12-16) L 02/08/18 05:50 Hct 32.4 % (41.0-60) L 02/08/18 05:50 MCV 85.4 fl (81-100) 02/08/18 05:50 MCH 28.5 pg (27.0-31.0) 02/08/18 05:50 MCHC Differential 33.4 pg (28.0-36.0) 02/08/18 05:50 RDW 16.1 % (11.5-20.0) 02/08/18 05:50 Plt Count 189 Th/cmm (150-400) 02/08/18 05:50 MPV 10.2 fl 02/08/18 05:50 Add Manual Diff YES 02/05/18 06:09 Neutrophils % 66.3 % (40.0-80.0) 02/08/18 05:50 Band Neutrophils % 0 % (0-10) 02/05/18 06:09 Lymphocytes % 22.0 % (20.0-50.0) 02/08/18 05:50 Monocytes % 8.5 % (2.0-10.0) 02/08/18 05:50 Eosinophils % 3.0 % (0.0-5.0) 02/08/18 05:50 Basophils % 0.2 % (0.0-2.0) 02/08/18 05:50 Neutrophils (Manual) 61 % (40-80) 02/05/18 06:09 Lymphocytes 33 % (20-50) 02/05/18 06:09 Monocytes 5 % (2-10) 02/05/18 06:09 Eosinophils 1 % (0-5) 02/05/18 06:09 Basophils 0 % (0-3) 02/05/18 06:09 Hypochromia 1+ 02/05/18 06:09 Eos Smear Source URINE 02/02/18 23:10 Eos Smear Total Cells NONE SEEN (NONE SEEN) 02/02/18 23:10 PT 10.0 SECONDS (9.5-11.5) 02/01/18 21:30 INR 0.96 (0.5-1.4) 02/01/18 21:30 PTT (Actin FS) 18.5 SECONDS (26.0-38.0) L 02/01/18 21:30 Sodium 139 mEq/L (136-145) 02/08/18 05:50 Potassium 3.6 mEq/L (3.5-5.1) 02/08/18 05:50 Chloride 98 mEq/L (98-107) 02/08/18 05:50 Carbon Dioxide 33.7 mEq/L (21.0-31.0) H 02/08/18 05:50 Anion Gap 10.9 (7.0-16.0) 02/08/18 05:50 BUN 44 mg/dL (7-25) H 02/08/18 05:50 Creatinine 1.2 mg/dL (0.6-1.2) 02/08/18 05:50 Est GFR ( Amer) TNP 02/08/18 05:50 Est GFR (Non-Af Amer) TNP 02/08/18 05:50 BUN/Creatinine Ratio 36.7 02/08/18 05:50 Glucose 162 mg/dL (70-105) H 02/08/18 05:50 POC Glucose 125 MG/DL (70 - 105) H 02/08/18 11:41 Whole Bld Lactic Acid 1.04 mmol/L (0.60-1.99) 02/01/18 21:30 Uric Acid 8.7 mg/dL (2.3-6.6) H 02/03/18 05:45 Calcium 9.4 mg/dL (8.6-10.3) 02/08/18 05:50 Phosphorus 3.0 mg/dL (2.5-5.0) 02/03/18 05:45 Magnesium 2.1 mg/dL (1.9-2.7) 02/06/18 04:30 Iron 38 ug/dL (27-139) 02/04/18 05:37 TIBC 239 ug/dL (250-450) L 02/04/18 05:37 Iron Saturation 16 % (15-55) 02/04/18 05:37 Unsaturated IBC 201 ug/dL (118-369) 02/04/18 05:37 Ferritin 58 ng/mL (15-150) 02/04/18 05:37 Total Bilirubin 0.2 mg/dL (0.3-1.0) L 02/01/18 21:30 AST 17 U/L (13-39) 02/01/18 21:30 ALT 16 U/L (7-52) 02/01/18 21:30 Alkaline Phosphatase 79 U/L (34-104) 02/01/18 21:30 Ammonia 51 umol/L (16-53) 02/02/18 11:55 Creatine Kinase 25 U/L (30-223) L 02/01/18 21:30 Troponin I 0.03 ng/mL (0.01-0.05) 02/01/18 21:30 B-Natriuretic Peptide 106.0 pg/mL (5.0-100.0) H 02/04/18 05:37 Total Protein 6.9 gm/dL (6.0-8.3) 02/01/18 21:30 Albumin 3.3 gm/dL (3.7-5.3) L 02/01/18 21:30 Globulin 3.6 gm/dL 02/01/18 21:30 Albumin/Globulin Ratio 0.9 (1.0-1.8) L 02/01/18 21:30 Vitamin B12 1520 pg/mL (232-1245) H 02/04/18 05:37 Folic Acid >20.0 ng/mL (>3.0) 02/04/18 05:37 TSH 2.52 uIU/ml (0.34-5.60) 02/03/18 05:45 Urine Osmolality 472 mOsmol/kg 02/02/18 23:10 Ur Random Sodium 40 mmol/L 02/02/18 23:10 Urine Creatinine 32.2 mg/dl 02/02/18 23:10 Urine Microalbumin 185.5 02/02/18 23:10 Microalb/Creat Ratio 576.1 02/02/18 23:10 Stool Occult Blood POSITIVE (NEGATIVE) H 02/04/18 05:00 Blood Type O POSITIVE 09/09/18 08:36 Antibody Screen NEGATIVE 02/05/18 08:36 Crossmatch See Detail 02/05/18 08:36 - Physical Exam Vitals and I&O: Vital Signs Temp 96.5 F 02/08/18 11:38 Pulse 55 02/08/18 11:38 Resp 18 02/08/18 11:38 BP 130/69 02/08/18 11:38 Pulse Ox 98 02/08/18 11:38 Intake & Output 02/07/18 02/08/18 02/08/18 18:59 06:59 18:59 Intake Total 1000 1000 Balance 1000 1000 Weight (lbs) 54.34 kg Intake: Intake, IV Amount 1000 1000 Dextrose 5% 1,000 ml @ 70 1000 1000 mls/hr IV .[id number] [facility] Rx#:[id number] Other: # Voids 2 # Bowel Movements 1 Weight Source Bedscale Active Medications: Current Medications Amlodipine Besylate (Norvasc) 10 mg GT DAILY [facility] Stop: 04/03/18 08:59 Last Admin: 02/08/18 09:12 Dose: 10 mg Ascorbic Acid (Vitamin C) 500 mg GT BID [facility] Stop: 04/03/18 08:59 Last Admin: 02/08/18 09:10 Dose: 500 mg Glucagon (Glucagen) 1 mg SUBQ PRN PRN PRN Reason: BS BELOW 60 & NOT TOLERATE PO Stop: 03/03/18 23:38 Haloperidol Decanoate (Haldol Dec) 25 mg IM [id number] [facility] Stop: 04/09/18 08:59 Last Admin: 02/08/18 09:12 Dose: 25 mg Dextrose (D5w) 1,000 mls @ 70 mls/hr IV .[id number] [facility] Stop: 04/05/18 13:14 Last Admin: 02/08/18 03:55 Dose: 70 mls/hr Insulin Aspart (Novolog Insulin Sliding Scale) 0 units SUBQ Q6HR [facility]; Protocol Stop: 04/03/18 00:59 Last Admin: 02/08/18 12:25 Dose: Not Given Mirtazapine (Remeron) 15 mg GT HS [facility]; Protocol Stop: 04/03/18 20:59 Last Admin: 02/07/18 21:16 Dose: 15 mg Multivitamins/Minerals (Theragran M) 15 ml GT DAILY [facility] Stop: 04/03/18 08:59 Last Admin: 02/08/18 09:12 Dose: 15 ml Pantoprazole Sodium (Protonix) 40 mg GT DAILY@1200 [facility] Stop: 04/03/18 11:59 Last Admin: 02/08/18 12:24 Dose: 40 mg General: Alert, No acute distress HEENT: Atraumatic, Mucous membr. moist/pink Neck: Supple, +2 carotid pulse wo bruit Cardiovascular: Regular rate, Normal S1, Normal S2 Lungs: Clear to auscultation Abdomen: Bowel sounds, Soft Extremities: no Edema Neurological: Sensation intact Skin: no Rash Psych/Mental Status: Mood NL - Procedures Procedures: Procedures Procedure Code Date EGD PLACE GASTROSTOMY TUBE 06573 06/21/17 EXCISION OF ASCENDING COLON, ENDO, DIAGN [id number] 06/21/17 EXCISION OF CECUM, ENDO, DIAGN [id number] 06/21/17 EXCISION OF SIGMOID COLON, ENDO, DIAGN [id number] 06/21/17 EXCISION OF STOMACH, ENDO, DIAGN [id number] 06/21/17 INSERTION OF FEEDING DEVICE INTO STOMACH, PERC APPROACH [id number] 06/21/17 INSERTION OF INFUSION DEV INTO SUP VENA CAVA, PERC APPROACH 88GV70S 06/21/17 INTRODUCTION OF NUTRITIONAL INTO CENTRAL VEIN, PERC APPROACH [id number] 06/21/17 PARTIAL REMOVAL OF COLON 77073 06/21/17 RESECTION OF RIGHT LARGE INTESTINE, OPEN APPROACH [id number] 06/21/17 RESPIRATORY VENTILATION, LESS THAN 24 CONSECUTIVE HOURS 6R3827T 06/21/17 TRANSFUSE NONAUT RED BLOOD CELLS IN PERIPH VEIN, PERC 19970E3 02/01/18 Assessment/Plan - Assessment Assessment: LEONIE on CKD ALOC Met Enceph Contraction Alk Severe Dehydration T2DM w/ CKD Ess Htn w/ CKD Anemia Acute LGI bleed on CD Cecal mass - Plan Plan: Lab - Result Diagrams 02/03/18 05:45 02/03/18 05:45 Current Medications Amlodipine Besylate (Norvasc) 10 mg GT DAILY [facility] Stop: 04/03/18 08:59 Last Admin: 02/03/18 09:45 Dose: 10 mg Ascorbic Acid (Vitamin C) 500 mg GT BID ED Stop: 04/03/18 08:59 Last Admin: 02/03/18 09:43 Dose: 500 mg Glucagon (Glucagen) 1 mg SUBQ PRN PRN PRN Reason: BS BELOW 60 & NOT TOLERATE PO Stop: 03/03/18 23:38 Haloperidol Decanoate (Haldol Dec) 25 mg IM [id number] [facility] Stop: 04/02/18 23:44 Dextrose (D5w) 1,000 mls @ 125 mls/hr IV .Q8H ED Stop: 04/03/18 01:59 Last Infusion: 02/03/18 10:30 Dose: 125 mls/hr Insulin Aspart (Novolog Insulin Sliding Scale) 0 units SUBQ Q6HR [facility]; Protocol Stop: 04/03/18 00:59 Last Admin: 02/03/18 12:23 Dose: Not Given Mirtazapine (Remeron) 15 mg GT HS ED; Protocol Stop: 04/03/18 20:59 Multivitamins/Minerals (Theragran M) 15 ml GT DAILY ED Stop: 04/03/18 08:59 Last Admin: 02/03/18 09:42 Dose: 15 ml Pantoprazole Sodium (Protonix) 40 mg GT DAILY@1200 ED Stop: 04/03/18 11:59 Last Admin: 02/03/18 13: Lab - Result Diagrams 02/08/18 05:50 02/08/18 05:50 Na now 139 replaced K Kidney fnc improved w/ BUN/CR of 44/1.2 continue hydration Hgb/Hct improved after transfusion f/u electrolytes, CBC possible surgical eval cecal amss Nutritional Asmnt/Malnutr-PDOC - Dietary Evaluation Malnutrition Findings (Please click <Entered> for more info): Nutritional Asmnt/Malnutrition Start: 02/03/18 17: 04 Text: Status: Complete Freq: Protocol: Document 02/03/18 17:10 LCHENG (Rec: 02/03/18 17:37 LCHENG [email or web address]) Nutritional Asmnt/Malnutrition Patient General Information Nutritional Screening High Risk Diagnosis acute renal failure Pertinent Medical Hx/Surgical Hx HTN, DM, dyslipidemia, demntia , acute renal insufficiency, CHF Subjective Information Consult received for non intact wound. Pt seen lying in bed at time of visit, nonverbal. Verified glucerna 1 .2 running at 67ml/hr at this time. Current Diet Order/ Nutrition Support glucerna 1.2 at 67ml/hr x 20hr , providing 1608kcal and 80g protein Pertinent Medications vit C, novolog, remeron, theragran, protonix Pertinent Labs 02/03 Na 148, BUN 85, Cr 1.4, glucose 159, POC 132-148 Nutritional Hx/Data Height 1.6 m Height (Calculated Centimeters) 160.0 Current Weight (lbs) 49.895 kg Weight (Calculated Kilograms) 49.9 Weight (Calculated Grams) 37760.2 [place] Body Weight 115 Body Mass Index (BMI) 19.5 Weight Status Approriate GI Symptoms GI Symptoms None Last BM 02/03 Difficult in: None Skin Integrity/Comment: non intact skin to sacral area per wound care note benji 10 Estimated Nutritional Goals BEE in Kcals: Using Current wt Calories/Kcals/Kg 27-32 Kcals Calculated 2167-9616 Protein: Using Current wt Protein g/k.2-1.4 monitor renal labs Protein Calculated 60-70 Fluid: ml per MD Nutritional Problem 2. Problem Problem increased nutrition needs Etiology imparied skin integrity Signs/Symptoms: non intact wound to sacral area 1. Problem Problem altered nutrition related labs Etiology acute renal failure, hx of DM Signs/Symptoms: Na 148, BUN 85, Cr 1.4, glucose 159, POC 132-148 Malnutrition Alert Is there a minimum of two criteria No selected? Query Text:Check all the applicable criteria. A minimum of two criteria are recommended for diagnosis of either severe or non-severe malnutrition. Malnutrition Related to Morbid Obesity Malnutrition related to morbid obesity No Intervention/Recommendation Comments 1. Recommend decreasing Glucerna 1.2 rate to 60ml/hr x 20hr considering elevated BUN and excesive protein intake. It provides 1608kcal, 80g protein, 888ml free water, meeting 100% of nutritional needs 2. Consider adding Amrit BID via JoinTVube to help with wound healing. 3. Monitor TF rate, tolerance, wt, skin integrity and labs 4. F/U as high risk in 2-3 days, 02/05-02/06 Expected Outcomes/Goals Expected Outcomes/Goals 1. Pt to meet at least 75% of nutritional needs via nutrition support with tolerance 2. Wt stability, skin integrity to improve., labs to approach WNL.
[2018-02-08 14:09] LABS: INR 0.97 (0.5-1.4); PROTHROMBIN TIME (TEST) 10.1 SECONDS (9.5-11.5)
--- NOTE | 2018-02-08 14:25 | General Progress Note ---
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 scan this admission is negative suggest colonoscopy if necessary Objective - Results Result Diagrams: 02/08/18 05:50 02/08/18 05:50 Recent Labs: Laboratory Last Values WBC 8.0 Th/cmm (4.8-10.8) 02/08/18 05:50 RBC 3.79 Mil/cmm (3.80-5.20) L 02/08/18 05:50 Hgb 10.8 gm/dL (12-16) L 02/08/18 05:50 Hct 32.4 % (41.0-60) L 02/08/18 05:50 MCV 85.4 fl (81-100) 02/08/18 05:50 MCH 28.5 pg (27.0-31.0) 02/08/18 05:50 MCHC Differential 33.4 pg (28.0-36.0) 02/08/18 05:50 RDW 16.1 % (11.5-20.0) 02/08/18 05:50 Plt Count 189 Th/cmm (150-400) 02/08/18 05:50 MPV 10.2 fl 02/08/18 05:50 Add Manual Diff YES 02/05/18 06:09 Neutrophils % 66.3 % (40.0-80.0) 02/08/18 05:50 Band Neutrophils % 0 % (0-10) 02/05/18 06:09 Lymphocytes % 22.0 % (20.0-50.0) 02/08/18 05:50 Monocytes % 8.5 % (2.0-10.0) 02/08/18 05:50 Eosinophils % 3.0 % (0.0-5.0) 02/08/18 05:50 Basophils % 0.2 % (0.0-2.0) 02/08/18 05:50 Neutrophils (Manual) 61 % (40-80) 02/05/18 06:09 Lymphocytes 33 % (20-50) 02/05/18 06:09 Monocytes 5 % (2-10) 02/05/18 06:09 Eosinophils 1 % (0-5) 02/05/18 06:09 Basophils 0 % (0-3) 02/05/18 06:09 Hypochromia 1+ 02/05/18 06:09 Eos Smear Source URINE 02/02/18 23:10 Eos Smear Total Cells NONE SEEN (NONE SEEN) 02/02/18 23:10 PT 10.1 SECONDS (9.5-11.5) 02/08/18 13:45 INR 0.97 (0.5-1.4) 02/08/18 13:45 PTT (Actin FS) 22.0 SECONDS (26.0-38.0) L 02/08/18 13:45 Sodium 139 mEq/L (136-145) 02/08/18 05:50 Potassium 3.6 mEq/L (3.5-5.1) 02/08/18 05:50 Chloride 98 mEq/L (98-107) 02/08/18 05:50 Carbon Dioxide 33.7 mEq/L (21.0-31.0) H 02/08/18 05:50 Anion Gap 10.9 (7.0-16.0) 02/08/18 05:50 BUN 44 mg/dL (7-25) H 02/08/18 05:50 Creatinine 1.2 mg/dL (0.6-1.2) 02/08/18 05:50 Est GFR ( Amer) TNP 02/08/18 05:50 Est GFR (Non-Af Amer) TNP 02/08/18 05:50 BUN/Creatinine Ratio 36.7 02/08/18 05:50 Glucose 162 mg/dL (70-105) H 02/08/18 05:50 POC Glucose 125 MG/DL (70 - 105) H 02/08/18 11:41 Whole Bld Lactic Acid 1.04 mmol/L (0.60-1.99) 02/01/18 21:30 Uric Acid 8.7 mg/dL (2.3-6.6) H 02/03/18 05:45 Calcium 9.4 mg/dL (8.6-10.3) 02/08/18 05:50 Phosphorus 3.0 mg/dL (2.5-5.0) 02/03/18 05:45 Magnesium 2.1 mg/dL (1.9-2.7) 02/06/18 04:30 Iron 38 ug/dL (27-139) 02/04/18 05:37 TIBC 239 ug/dL (250-450) L 02/04/18 05:37 Iron Saturation 16 % (15-55) 02/04/18 05:37 Unsaturated IBC 201 ug/dL (118-369) 02/04/18 05:37 Ferritin 58 ng/mL (15-150) 02/04/18 05:37 Total Bilirubin 0.2 mg/dL (0.3-1.0) L 02/01/18 21:30 AST 17 U/L (13-39) 02/01/18 21:30 ALT 16 U/L (7-52) 02/01/18 21:30 Alkaline Phosphatase 79 U/L (34-104) 02/01/18 21:30 Ammonia 51 umol/L (16-53) 02/02/18 11:55 Creatine Kinase 25 U/L (30-223) L 02/01/18 21:30 Troponin I 0.03 ng/mL (0.01-0.05) 02/01/18 21:30 B-Natriuretic Peptide 106.0 pg/mL (5.0-100.0) H 02/04/18 05:37 Total Protein 6.9 gm/dL (6.0-8.3) 02/01/18 21:30 Albumin 3.3 gm/dL (3.7-5.3) L 02/01/18 21:30 Globulin 3.6 gm/dL 02/01/18 21:30 Albumin/Globulin Ratio 0.9 (1.0-1.8) L 02/01/18 21:30 Vitamin B12 1520 pg/mL (232-1245) H 02/04/18 05:37 Folic Acid >20.0 ng/mL (>3.0) 02/04/18 05:37 TSH 2.52 uIU/ml (0.34-5.60) 02/03/18 05:45 Urine Osmolality 472 mOsmol/kg 02/02/18 23:10 Ur Random Sodium 40 mmol/L 02/02/18 23:10 Urine Creatinine 32.2 mg/dl 02/02/18 23:10 Urine Microalbumin 185.5 02/02/18 23:10 Microalb/Creat Ratio 576.1 02/02/18 23:10 Stool Occult Blood POSITIVE (NEGATIVE) H 02/04/18 05:00 Blood Type O POSITIVE 02/05/18 08:36 Antibody Screen NEGATIVE 02/05/18 08:36 Crossmatch See Detail 02/05/18 08:36 - Physical Exam Vitals and I&O: Vital Signs Temp 96.5 F 02/08/18 11:38 Pulse 55 02/08/18 11:38 Resp 18 02/08/18 11:38 BP 130/69 02/08/18 11:38 Pulse Ox 98 02/08/18 11:38 Intake & Output 02/07/18 02/08/18 02/08/18 18:59 06:59 18:59 Intake Total 1000 1000 Balance 1000 1000 Weight (lbs) 54.34 kg Intake: Intake, IV Amount 1000 1000 Dextrose 5% 1,000 ml @ 70 1000 1000 mls/hr IV .[id number] [facility] Rx#:[id number] Other: # Voids 2 # Bowel Movements 1 Weight Source Bedscale Active Medications: Current Medications Amlodipine Besylate (Norvasc) 10 mg GT DAILY [facility] Stop: 04/03/18 08:59 Last Admin: 02/08/18 09:12 Dose: 10 mg Ascorbic Acid (Vitamin C) 500 mg GT BID [facility] Stop: 04/03/18 08:59 Last Admin: 02/08/18 09:10 Dose: 500 mg Glucagon (Glucagen) 1 mg SUBQ PRN PRN PRN Reason: BS BELOW 60 & NOT TOLERATE PO Stop: 03/03/18 23:38 Haloperidol Decanoate (Haldol Dec) 25 mg IM [id number] [facility] Stop: 04/09/18 08:59 Last Admin: 02/08/18 09:12 Dose: 25 mg Dextrose (D5w) 1,000 mls @ 70 mls/hr IV .[id number] [facility] Stop: 04/05/18 13:14 Last Admin: 02/08/18 03:55 Dose: 70 mls/hr Insulin Aspart (Novolog Insulin Sliding Scale) 0 units SUBQ Q6HR ED; Protocol Stop: 04/03/18 00:59 Last Admin: 02/08/18 12:25 Dose: Not Given Mirtazapine (Remeron) 15 mg GT HS [facility]; Protocol Stop: 04/03/18 20:59 Last Admin: 02/07/18 21:16 Dose: 15 mg Multivitamins/Minerals (Theragran M) 15 ml GT DAILY [facility] Stop: 04/03/18 08:59 Last Admin: 02/08/18 09:12 Dose: 15 ml Pantoprazole Sodium (Protonix) 40 mg GT DAILY@1200 ED Stop: 04/03/18 11:59 Last Admin: 02/08/18 12:24 Dose: 40 mg General: Alert, No acute distress HEENT: Atraumatic, Mucous membr. moist/pink Neck: Supple, +2 carotid pulse wo bruit Cardiovascular: Regular rate, Normal S1, Normal S2 Lungs: Clear to auscultation Abdomen: Bowel sounds, Soft Extremities: no Edema Neurological: Sensation intact Skin: no Rash Psych/Mental Status: Mood NL - Procedures Procedures: Procedures Procedure Code Date EGD PLACE GASTROSTOMY TUBE 69241 06/21/17 EXCISION OF ASCENDING COLON, ENDO, DIAGN [id number] 06/21/17 EXCISION OF CECUM, ENDO, DIAGN [id number] 06/21/17 EXCISION OF SIGMOID COLON, ENDO, DIAGN [id number] 06/21/17 EXCISION OF STOMACH, ENDO, DIAGN [id number] 06/21/17 INSERTION OF FEEDING DEVICE INTO STOMACH, PERC APPROACH [id number] 06/21/17 INSERTION OF INFUSION DEV INTO SUP VENA CAVA, PERC APPROACH 51XR12P 06/21/17 INTRODUCTION OF NUTRITIONAL INTO CENTRAL VEIN, PERC APPROACH [id number] 06/21/17 PARTIAL REMOVAL OF COLON 48461 06/21/17 RESECTION OF RIGHT LARGE INTESTINE, OPEN APPROACH [id number] 06/21/17 RESPIRATORY VENTILATION, LESS THAN 24 CONSECUTIVE HOURS 6P5065L 06/21/17 TRANSFUSE NONAUT RED BLOOD CELLS IN PERIPH VEIN, PERC 91019W4 02/01/18 Nutritional Asmnt/Malnutr-PDOC - Dietary Evaluation Malnutrition Findings (Please click <Entered> for more info): Nutritional Asmnt/Malnutrition Start: 02/03/18 17: 04 Text: Status: Complete Freq: Protocol: Document 02/03/18 17:10 GRISELDA (Rec: 02/03/18 17:37 JENY [email or web address]) Nutritional Asmnt/Malnutrition Patient General Information Nutritional Screening High Risk Diagnosis acute renal failure Pertinent Medical Hx/Surgical Hx HTN, DM, dyslipidemia, demntia , acute renal insufficiency, CHF Subjective Information Consult received for non intact wound. Pt seen lying in bed at time of visit, nonverbal. Verified glucerna 1 .2 running at 67ml/hr at this time. Current Diet Order/ Nutrition Support glucerna 1.2 at 67ml/hr x 20hr , providing 1608kcal and 80g protein Pertinent Medications vit C, novolog, remeron, theragran, protonix Pertinent Labs 02/03 Na 148, BUN 85, Cr 1.4, glucose 159, POC 132-148 Nutritional Hx/Data Height 1.6 m Height (Calculated Centimeters) 160.0 Current Weight (lbs) 49.895 kg Weight (Calculated Kilograms) 49.9 Weight (Calculated Grams) 59715.2 [place] Body Weight 115 Body Mass Index (BMI) 19.5 Weight Status Approriate GI Symptoms GI Symptoms None Last BM 02/03 Difficult in: None Skin Integrity/Comment: non intact skin to sacral area per wound care note benji 10 Estimated Nutritional Goals BEE in Kcals: Using Current wt Calories/Kcals/Kg 27-32 Kcals Calculated 2529-0158 Protein: Using Current wt Protein g/k.2-1.4 monitor renal labs Protein Calculated 60-70 Fluid: ml per MD Nutritional Problem 2. Problem Problem increased nutrition needs Etiology imparied skin integrity Signs/Symptoms: non intact wound to sacral area 1. Problem Problem altered nutrition related labs Etiology acute renal failure, hx of DM Signs/Symptoms: Na 148, BUN 85, Cr 1.4, glucose 159, POC 132-148 Malnutrition Alert Is there a minimum of two criteria No selected? Query Text:Check all the applicable criteria. A minimum of two criteria are recommended for diagnosis of either severe or non-severe malnutrition. Malnutrition Related to Morbid Obesity Malnutrition related to morbid obesity No Intervention/Recommendation Comments 1. Recommend decreasing Glucerna 1.2 rate to 60ml/hr x 20hr considering elevated BUN and excesive protein intake. It provides 1608kcal, 80g protein, 888ml free water, meeting 100% of nutritional needs 2. Consider adding Amrit BID via Gtube to help with wound healing. 3. Monitor TF rate, tolerance, wt, skin integrity and labs 4. F/U as high risk in 2-3 days, 02/05-02/06 Expected Outcomes/Goals Expected Outcomes/Goals 1. Pt to meet at least 75% of nutritional needs via nutrition support with tolerance 2. Wt stability, skin integrity to improve., labs to approach WNL.
--- NOTE | 2018-02-08 17:06 | Consultation ---
DATE OF CONSULTATION: 02/08/2018 SURGICAL CONSULTATION REFERRING PHYSICIAN: Dr. Tobias. REASON FOR CONSULTATION: Follow up on right hemicolectomy. Thank you referring this patient to me. HISTORY OF PRESENT ILLNESS: This is a 77-year-old -Spanish female admitted because of altered mental status. She has history of diabetes, hypertension, dyslipidemia, dementia, acute renal insufficiency and CHF. The patient has been evaluated by Dr. Suresh and Dr. Lomeli. LABORATORY STUDIES: Showed the hemoglobin low at 6.7 with a hematocrit of 20.6. Chemistry: Blood sugar is 181, BUN is 55, creatinine of 1.2. The occult blood was positive. ASSESSMENT AND PLAN: A bleeding scan was done, none was found for source of bleeding. GI has followed the patient and it appears that in addition to the right hemicolectomy done on 06/27/2017 the patient also have gastric ulcers. Physical examination now does not show any mass in the abdomen to suspect recurrence, but this is certainly possible and a colonoscopy and EGD will probably be of great benefit to delineate the source of bleeding. We will follow with you. JOB# [id number]
[2018-02-09] MEDS: Dextrose 5% 1,000 ML IV SCH (00:56)
[2018-02-09] MEDS: INSULIN ASPART SLIDING SCALE 100 UNITS/ML UNIT SUBQ SCH ×3 (01:11→12:43)
[2018-02-09 06:19] LABS: % BASOPHILS 0.3 % (0.0-2.0); % EOSINOPHILS 3.8 % (0.0-5.0); % LYMPHOCYTES 22.8 % (20.0-50.0); % MONOCYTES 8.9 % (2.0-10.0); % NEUTROPHILS 64.2 % (40.0-80.0); EOSINOPHILE ABSOLUTE 0.3 Th/cmm (0.1-0.4); HEMATOCRIT 31.6 % (41.0-60); HEMOGLOBIN 10.2 gm/dL (12-16); LYMPHOCYTE ABSOLUTE 1.6 Th/cmm (1.5-3.0); MEAN CELL VOLUME 86.2 fl (81-100); MEAN CORPUSCULAR HEMOGLOBIN 27.9 pg (27.0-31.0); MEAN CORPUSCULAR HGB CONC 32.4 pg (28.0-36.0); MEAN PLATELET VOLUME 10.1 fl; MONOCYTE ABSOLUTE 0.6 Th/cmm (0.3-1.0); NEUTROPHILE ABSOLUTE 4.5 Th/cmm (1.8-8.0); PLATELET COUNT 179 Th/cmm (150-400); RED BLOOD COUNT 3.67 Mil/cmm (3.80-5.20); RED CELL DISTRIBUTION WIDTH 16.6 % (11.5-20.0)
[2018-02-09 06:41] LABS: ANION GAP 9.9 (7.0-16.0); BUN - UREA NITROGEN 44 mg/dL (7-25); CALCIUM SERUM 9.4 mg/dL (8.6-10.3); CARBON DIOXIDE 34.7 mEq/L (21.0-31.0); CHLORIDE 98 mEq/L (98-107); CREATININE - SERUM 1.1 mg/dL (0.6-1.2); GLUCOSE 170 mg/dL (70-105); POTASSIUM SERUM 3.6 mEq/L (3.5-5.1); SODIUM SERUM 139 mEq/L (136-145)
--- NOTE | 2018-02-09 07:52 | GI Progress Note ---
Subjective - Review of Systems Subjective: NO GI BLEEDING ILENE TUBE FEEDS Objective - Results Result Diagrams: 02/09/18 05:25 02/09/18 05:25 Recent Labs: Laboratory Last Values WBC 7.0 Th/cmm (4.8-10.8) 02/09/18 05:25 RBC 3.67 Mil/cmm (3.80-5.20) L 02/09/18 05:25 Hgb 10.2 gm/dL (12-16) L 02/09/18 05:25 Hct 31.6 % (41.0-60) L 02/09/18 05:25 MCV 86.2 fl (81-100) 02/09/18 05:25 MCH 27.9 pg (27.0-31.0) 02/09/18 05:25 MCHC Differential 32.4 pg (28.0-36.0) 02/09/18 05:25 RDW 16.6 % (11.5-20.0) 02/09/18 05:25 Plt Count 179 Th/cmm (150-400) 02/09/18 05:25 MPV 10.1 fl 02/09/18 05:25 Add Manual Diff YES 02/05/18 06:09 Neutrophils % 64.2 % (40.0-80.0) 02/09/18 05:25 Band Neutrophils % 0 % (0-10) 02/05/18 06:09 Lymphocytes % 22.8 % (20.0-50.0) 02/09/18 05:25 Monocytes % 8.9 % (2.0-10.0) 02/09/18 05:25 Eosinophils % 3.8 % (0.0-5.0) 02/09/18 05:25 Basophils % 0.3 % (0.0-2.0) 02/09/18 05:25 Neutrophils (Manual) 61 % (40-80) 02/05/18 06:09 Lymphocytes 33 % (20-50) 02/05/18 06:09 Monocytes 5 % (2-10) 02/05/18 06:09 Eosinophils 1 % (0-5) 02/05/18 06:09 Basophils 0 % (0-3) 02/05/18 06:09 Hypochromia 1+ 02/05/18 06:09 Eos Smear Source URINE 02/02/18 23:10 Eos Smear Total Cells NONE SEEN (NONE SEEN) 02/02/18 23:10 PT 10.1 SECONDS (9.5-11.5) 02/08/18 13:45 INR 0.97 (0.5-1.4) 02/08/18 13:45 PTT (Actin FS) 22.0 SECONDS (26.0-38.0) L 02/08/18 13:45 Sodium 139 mEq/L (136-145) 02/09/18 05:25 Potassium 3.6 mEq/L (3.5-5.1) 02/09/18 05:25 Chloride 98 mEq/L (98-107) 02/09/18 05:25 Carbon Dioxide 34.7 mEq/L (21.0-31.0) H 02/09/18 05:25 Anion Gap 9.9 (7.0-16.0) 02/09/18 05:25 BUN 44 mg/dL (7-25) H 02/09/18 05:25 Creatinine 1.1 mg/dL (0.6-1.2) 02/09/18 05:25 Est GFR ( Amer) TNP 02/09/18 05:25 Est GFR (Non-Af Amer) TNP 02/09/18 05:25 BUN/Creatinine Ratio 40.0 02/09/18 05:25 Glucose 170 mg/dL (70-105) H 02/09/18 05:25 POC Glucose 174 MG/DL (70 - 105) H 02/09/18 06:32 Whole Bld Lactic Acid 1.04 mmol/L (0.60-1.99) 02/01/18 21:30 Uric Acid 8.7 mg/dL (2.3-6.6) H 02/03/18 05:45 Calcium 9.4 mg/dL (8.6-10.3) 02/09/18 05:25 Phosphorus 3.0 mg/dL (2.5-5.0) 02/03/18 05:45 Magnesium 2.1 mg/dL (1.9-2.7) 02/06/18 04:30 Iron 38 ug/dL (27-139) 02/04/18 05:37 TIBC 239 ug/dL (250-450) L 02/04/18 05:37 Iron Saturation 16 % (15-55) 02/04/18 05:37 Unsaturated IBC 201 ug/dL (118-369) 02/04/18 05:37 Ferritin 58 ng/mL (15-150) 02/04/18 05:37 Total Bilirubin 0.2 mg/dL (0.3-1.0) L 02/01/18 21:30 AST 17 U/L (13-39) 02/01/18 21:30 ALT 16 U/L (7-52) 02/01/18 21:30 Alkaline Phosphatase 79 U/L (34-104) 02/01/18 21:30 Ammonia 51 umol/L (16-53) 02/02/18 11:55 Creatine Kinase 25 U/L (30-223) L 02/01/18 21:30 Troponin I 0.03 ng/mL (0.01-0.05) 02/01/18 21:30 B-Natriuretic Peptide 106.0 pg/mL (5.0-100.0) H 02/04/18 05:37 Total Protein 6.9 gm/dL (6.0-8.3) 02/01/18 21:30 Albumin 3.3 gm/dL (3.7-5.3) L 02/01/18 21:30 Globulin 3.6 gm/dL 02/01/18 21:30 Albumin/Globulin Ratio 0.9 (1.0-1.8) L 02/01/18 21:30 Vitamin B12 1520 pg/mL (232-1245) H 02/04/18 05:37 Folic Acid >20.0 ng/mL (>3.0) 02/04/18 05:37 TSH 2.52 uIU/ml (0.34-5.60) 02/03/18 05:45 Urine Osmolality 472 mOsmol/kg 02/02/18 23:10 Ur Random Sodium 40 mmol/L 02/02/18 23:10 Urine Creatinine 32.2 mg/dl 02/02/18 23:10 Urine Microalbumin 185.5 02/02/18 23:10 Microalb/Creat Ratio 576.1 02/02/18 23:10 Stool Occult Blood POSITIVE (NEGATIVE) H 02/04/18 05:00 Blood Type O POSITIVE 02/05/18 08:36 Antibody Screen NEGATIVE 02/05/18 08:36 Crossmatch See Detail 02/05/18 08:36 - Physical Exam Vitals and I&O: Vital Signs Temp 96.0 F 02/09/18 07:39 Pulse 67 02/09/18 07:39 Resp 18 02/09/18 07:39 BP 147/66 02/09/18 07:39 Pulse Ox 99 02/09/18 07:39 Intake & Output 02/08/18 02/09/18 02/09/18 18:59 06:59 18:59 Intake Total 1000 1812.333 Balance 1000 1812.333 Weight (lbs) 53.977 kg Intake: Intake, IV Amount 1000 198.333 Dextrose 5% 1,000 ml @ 70 1000 198.333 mls/hr IV .[id number] [facility] Rx#:[id number] Oral 0 Tube Feeding 1414 Other 200 Other: # Voids 3 # Bowel Movements 1 Weight Source Bedscale Active Medications: Current Medications Amlodipine Besylate (Norvasc) 10 mg GT DAILY [facility] Stop: 04/03/18 08:59 Last Admin: 02/08/18 09:12 Dose: 10 mg Ascorbic Acid (Vitamin C) 500 mg GT BID [facility] Stop: 04/03/18 08:59 Last Admin: 02/08/18 17:55 Dose: 500 mg Glucagon (Glucagen) 1 mg SUBQ PRN PRN PRN Reason: BS BELOW 60 & NOT TOLERATE PO Stop: 03/03/18 23:38 Haloperidol Decanoate (Haldol Dec) 25 mg IM [id number] [facility] Stop: 04/09/18 08:59 Last Admin: 02/08/18 09:12 Dose: 25 mg Dextrose (D5w) 1,000 mls @ 70 mls/hr IV .[id number] [facility] Stop: 04/05/18 13:14 Last Admin: 02/09/18 00:56 Dose: 70 mls/hr Insulin Aspart (Novolog Insulin Sliding Scale) 0 units SUBQ Q6HR [facility]; Protocol Stop: 04/03/18 00:59 Last Admin: 02/09/18 06:41 Dose: 2 units Mirtazapine (Remeron) 15 mg GT HS [facility]; Protocol Stop: 04/03/18 20:59 Last Admin: 02/09/18 00:55 Dose: 15 mg Multivitamins/Minerals (Theragran M) 15 ml GT DAILY [facility] Stop: 04/03/18 08:59 Last Admin: 02/08/18 09:12 Dose: 15 ml Pantoprazole Sodium (Protonix) 40 mg GT DAILY@1200 [facility] Stop: 04/03/18 11:59 Last Admin: 02/08/18 12:24 Dose: 40 mg General: Alert, No acute distress HEENT: Atraumatic, Mucous membr. moist/pink Neck: Supple, +2 carotid pulse wo bruit Cardiovascular: Regular rate, Normal S1, Normal S2 Lungs: Clear to auscultation Abdomen: Bowel sounds, Soft Extremities: no Edema Neurological: Sensation intact Skin: no Rash Psych/Mental Status: Mood NL - Procedures Procedures: Procedures Procedure Code Date EGD PLACE GASTROSTOMY TUBE 58661 06/21/17 EXCISION OF ASCENDING COLON, ENDO, DIAGN [id number] 06/21/17 EXCISION OF CECUM, ENDO, DIAGN [id number] 06/21/17 EXCISION OF SIGMOID COLON, ENDO, DIAGN [id number] 06/21/17 EXCISION OF STOMACH, ENDO, DIAGN [id number] 06/21/17 INSERTION OF FEEDING DEVICE INTO STOMACH, PERC APPROACH [id number] 06/21/17 INSERTION OF INFUSION DEV INTO SUP VENA CAVA, PERC APPROACH 62FL34I 06/21/17 INTRODUCTION OF NUTRITIONAL INTO CENTRAL VEIN, PERC APPROACH 6T7166Y 06/21/17 PARTIAL REMOVAL OF COLON 11208 06/21/17 RESECTION OF RIGHT LARGE INTESTINE, OPEN APPROACH [id number] 06/21/17 RESPIRATORY VENTILATION, LESS THAN 24 CONSECUTIVE HOURS 3R1635T 06/21/17 TRANSFUSE NONAUT RED BLOOD CELLS IN PERIPH VEIN, PERC 45569S6 02/01/18 Assessment/Plan - Assessment Assessment: 77 YO FEMALE WITH OCCULT BLOOD + NO OVERT GI BLEEDING RECENT EGD SHOWED MW TEAR AND GASTRIC ULCERS RECENT COLO SHOWED COLON CANCER, COLON POLYP, DIVERTICULOSIS, HEMORRHOIDS HAD RIGHT HEMICOLECTOMY PER DR GAMEZ BLEEDING SCAN NEG 1.FOLLOW H/H; TRANSFUSE PRN 2.ANGIO IF REBLEEDS 3.CT ABD PELVIS
[2018-02-09] MEDS: Multivitamin w/ Minerals 15 mL UDC GT SCH (09:45)
--- NOTE | 2018-02-09 10:44 | Internal Medicine Prog Note ---
Internal Medicine Subjective - Subjective Service Date: 02/09/18 Patient seen and examined:: with staff Patient is:: awake, non-verbal Patient Complaints of:: congestion Per staff patient has:: tolerating meds Internal Medicine Objective - Results Result Diagrams: 02/09/18 05:25 02/09/18 05:25 Recent Labs: Laboratory Last Values WBC 7.0 Th/cmm (4.8-10.8) 02/09/18 05:25 RBC 3.67 Mil/cmm (3.80-5.20) L 02/09/18 05:25 Hgb 10.2 gm/dL (12-16) L 02/09/18 05:25 Hct 31.6 % (41.0-60) L 02/09/18 05:25 MCV 86.2 fl (81-100) 02/09/18 05:25 MCH 27.9 pg (27.0-31.0) 02/09/18 05:25 MCHC Differential 32.4 pg (28.0-36.0) 02/09/18 05:25 RDW 16.6 % (11.5-20.0) 02/09/18 05:25 Plt Count 179 Th/cmm (150-400) 02/09/18 05:25 MPV 10.1 fl 02/09/18 05:25 Add Manual Diff YES 02/05/18 06:09 Neutrophils % 64.2 % (40.0-80.0) 02/09/18 05:25 Band Neutrophils % 0 % (0-10) 02/05/18 06:09 Lymphocytes % 22.8 % (20.0-50.0) 02/09/18 05:25 Monocytes % 8.9 % (2.0-10.0) 02/09/18 05:25 Eosinophils % 3.8 % (0.0-5.0) 02/09/18 05:25 Basophils % 0.3 % (0.0-2.0) 02/09/18 05:25 Neutrophils (Manual) 61 % (40-80) 02/05/18 06:09 Lymphocytes 33 % (20-50) 02/05/18 06:09 Monocytes 5 % (2-10) 02/05/18 06:09 Eosinophils 1 % (0-5) 02/05/18 06:09 Basophils 0 % (0-3) 02/05/18 06:09 Hypochromia 1+ 02/05/18 06:09 Eos Smear Source URINE 02/02/18 23:10 Eos Smear Total Cells NONE SEEN (NONE SEEN) 02/02/18 23:10 PT 10.1 SECONDS (9.5-11.5) 02/08/18 13:45 INR 0.97 (0.5-1.4) 02/08/18 13:45 PTT (Actin FS) 22.0 SECONDS (26.0-38.0) L 02/08/18 13:45 Sodium 139 mEq/L (136-145) 02/09/18 05:25 Potassium 3.6 mEq/L (3.5-5.1) 02/09/18 05:25 Chloride 98 mEq/L (98-107) 02/09/18 05:25 Carbon Dioxide 34.7 mEq/L (21.0-31.0) H 02/09/18 05:25 Anion Gap 9.9 (7.0-16.0) 02/09/18 05:25 BUN 44 mg/dL (7-25) H 02/09/18 05:25 Creatinine 1.1 mg/dL (0.6-1.2) 02/09/18 05:25 Est GFR ( Amer) TNP 02/09/18 05:25 Est GFR (Non-Af Amer) TNP 02/09/18 05:25 BUN/Creatinine Ratio 40.0 02/09/18 05:25 Glucose 170 mg/dL (70-105) H 02/09/18 05:25 POC Glucose 174 MG/DL (70 - 105) H 02/09/18 06:32 Whole Bld Lactic Acid 1.04 mmol/L (0.60-1.99) 02/01/18 21:30 Uric Acid 8.7 mg/dL (2.3-6.6) H 02/03/18 05:45 Calcium 9.4 mg/dL (8.6-10.3) 02/09/18 05:25 Phosphorus 3.0 mg/dL (2.5-5.0) 02/03/18 05:45 Magnesium 2.1 mg/dL (1.9-2.7) 02/06/18 04:30 Iron 38 ug/dL (27-139) 02/04/18 05:37 TIBC 239 ug/dL (250-450) L 02/04/18 05:37 Iron Saturation 16 % (15-55) 02/04/18 05:37 Unsaturated IBC 201 ug/dL (118-369) 02/04/18 05:37 Ferritin 58 ng/mL (15-150) 02/04/18 05:37 Total Bilirubin 0.2 mg/dL (0.3-1.0) L 02/01/18 21:30 AST 17 U/L (13-39) 02/01/18 21:30 ALT 16 U/L (7-52) 02/01/18 21:30 Alkaline Phosphatase 79 U/L (34-104) 02/01/18 21:30 Ammonia 51 umol/L (16-53) 02/02/18 11:55 Creatine Kinase 25 U/L (30-223) L 02/01/18 21:30 Troponin I 0.03 ng/mL (0.01-0.05) 02/01/18 21:30 B-Natriuretic Peptide 106.0 pg/mL (5.0-100.0) H 02/04/18 05:37 Total Protein 6.9 gm/dL (6.0-8.3) 02/01/18 21:30 Albumin 3.3 gm/dL (3.7-5.3) L 02/01/18 21:30 Globulin 3.6 gm/dL 02/01/18 21:30 Albumin/Globulin Ratio 0.9 (1.0-1.8) L 02/01/18 21:30 Vitamin B12 1520 pg/mL (232-1245) H 02/04/18 05:37 Folic Acid >20.0 ng/mL (>3.0) 02/04/18 05:37 TSH 2.52 uIU/ml (0.34-5.60) 02/03/18 05:45 Urine Osmolality 472 mOsmol/kg 02/02/18 23:10 Ur Random Sodium 40 mmol/L 02/02/18 23:10 Urine Creatinine 32.2 mg/dl 02/02/18 23:10 Urine Microalbumin 185.5 02/02/18 23:10 Microalb/Creat Ratio 576.1 02/02/18 23:10 Stool Occult Blood POSITIVE (NEGATIVE) H 02/04/18 05:00 Blood Type O POSITIVE 02/05/18 08:36 Antibody Screen NEGATIVE 02/05/18 08:36 Crossmatch See Detail 02/05/18 08:36 - Physical Exam Vitals and I&O: Vital Signs Temp 96.0 F 02/09/18 07:39 Pulse 67 02/09/18 09:45 Resp 18 02/09/18 07:39 BP 147/66 02/09/18 09:45 Pulse Ox 99 02/09/18 07:39 Intake & Output 02/08/18 02/09/18 02/09/18 18:59 06:59 18:59 Intake Total 1000 1812.333 Balance 1000 1812.333 Weight (lbs) 119 lb Intake: Intake, IV Amount 1000 198.333 Dextrose 5% 1,000 ml @ 70 1000 198.333 mls/hr IV .[id number] [facility] Rx#:[id number] Oral 0 Tube Feeding 1414 Other 200 Other: # Voids 3 # Bowel Movements 1 Weight Source Bedscale Active Medications: Current Medications Amlodipine Besylate (Norvasc) 10 mg GT DAILY [facility] Stop: 04/03/18 08:59 Last Admin: 02/09/18 09:45 Dose: 10 mg Ascorbic Acid (Vitamin C) 500 mg GT BID [facility] Stop: 04/03/18 08:59 Last Admin: 02/09/18 09:45 Dose: 500 mg Glucagon (Glucagen) 1 mg SUBQ PRN PRN PRN Reason: BS BELOW 60 & NOT TOLERATE PO Stop: 03/03/18 23:38 Haloperidol Decanoate (Haldol Dec) 25 mg IM [id number] [facility] Stop: 04/09/18 08:59 Last Admin: 02/08/18 09:12 Dose: 25 mg Dextrose (D5w) 1,000 mls @ 70 mls/hr IV .[id number] [facility] Stop: 04/05/18 13:14 Last Admin: 02/09/18 00:56 Dose: 70 mls/hr Insulin Aspart (Novolog Insulin Sliding Scale) 0 units SUBQ Q6HR ED; Protocol Stop: 04/03/18 00:59 Last Admin: 02/09/18 06:41 Dose: 2 units Mirtazapine (Remeron) 15 mg GT HS ED; Protocol Stop: 04/03/18 20:59 Last Admin: 02/09/18 00:55 Dose: 15 mg Multivitamins/Minerals (Theragran M) 15 ml GT DAILY [facility] Stop: 04/03/18 08:59 Last Admin: 02/09/18 09:45 Dose: 15 ml Pantoprazole Sodium (Protonix) 40 mg GT DAILY@1200 ED Stop: 04/03/18 11:59 Last Admin: 02/08/18 12:24 Dose: 40 mg General: weak HEENT: NC/AT, PERRLA Neck: Supple Cardiovascular: RRR, Normal S1, Normal S2 Abdomen: soft, non-tender, non-distended, +GT - Procedures Procedures: Procedures Procedure Code Date EGD PLACE GASTROSTOMY TUBE 48004 06/21/17 EXCISION OF ASCENDING COLON, ENDO, DIAGN [id number] 06/21/17 EXCISION OF CECUM, ENDO, DIAGN [id number] 06/21/17 EXCISION OF SIGMOID COLON, ENDO, DIAGN 6OMD5GD 06/21/17 EXCISION OF STOMACH, ENDO, DIAGN [id number] 06/21/17 INSERTION OF FEEDING DEVICE INTO STOMACH, PERC APPROACH [id number] 06/21/17 INSERTION OF INFUSION DEV INTO SUP VENA CAVA, PERC APPROACH 07DN74D 06/21/17 INTRODUCTION OF NUTRITIONAL INTO CENTRAL VEIN, PERC APPROACH 4O7846G 06/21/17 PARTIAL REMOVAL OF COLON 53218 06/21/17 RESECTION OF RIGHT LARGE INTESTINE, OPEN APPROACH 3RDL9BY 06/21/17 RESPIRATORY VENTILATION, LESS THAN 24 CONSECUTIVE HOURS [id number] 06/21/17 TRANSFUSE NONAUT RED BLOOD CELLS IN PERIPH VEIN, PERC 99912S2 02/01/18 Internal Medicine Assmt/Plan - Assessment Assessment: cecal mass Severe dehydration-better history of acute renal failure diabetes congestive heart failure dementia, anxiety stool ob positive . - Plan Plan: continue ivf for hydration follow up labs in am monitor h/h continue current plan of care Nutritional Asmnt/Malnutr-PDOC - Dietary Evaluation Malnutrition Findings (Please click <Entered> for more info): Nutritional Asmnt/Malnutrition Start: 02/03/18 17: 04 Text: Status: Complete Freq: Protocol: Document 02/03/18 17:10 GRISELDA (Rec: 02/03/18 17:37 GRISELDA [email or web address]) Nutritional Asmnt/Malnutrition Patient General Information Nutritional Screening High Risk Diagnosis acute renal failure Pertinent Medical Hx/Surgical Hx HTN, DM, dyslipidemia, demntia , acute renal insufficiency, CHF Subjective Information Consult received for non intact wound. Pt seen lying in bed at time of visit, nonverbal. Verified glucerna 1 .2 running at 67ml/hr at this time. Current Diet Order/ Nutrition Support glucerna 1.2 at 67ml/hr x 20hr , providing 1608kcal and 80g protein Pertinent Medications vit C, novolog, remeron, theragran, protonix Pertinent Labs 02/03 Na 148, BUN 85, Cr 1.4, glucose 159, POC 132-148 Nutritional Hx/Data Height 5 ft 3 in Height (Calculated Centimeters) 160.0 Current Weight (lbs) 110 lb Weight (Calculated Kilograms) 49.9 Weight (Calculated Grams) 21758.2 [place] Body Weight 115 Body Mass Index (BMI) 19.5 Weight Status Approriate GI Symptoms GI Symptoms None Last BM 02/03 Difficult in: None Skin Integrity/Comment: non intact skin to sacral area per wound care note benji 10 Estimated Nutritional Goals BEE in Kcals: Using Current wt Calories/Kcals/Kg 27-32 Kcals Calculated 8032-5836 Protein: Using Current wt Protein g/k.2-1.4 monitor renal labs Protein Calculated 60-70 Fluid: ml per MD Nutritional Problem 2. Problem Problem increased nutrition needs Etiology imparied skin integrity Signs/Symptoms: non intact wound to sacral area 1. Problem Problem altered nutrition related labs Etiology acute renal failure, hx of DM Signs/Symptoms: Na 148, BUN 85, Cr 1.4, glucose 159, POC 132-148 Malnutrition Alert Is there a minimum of two criteria No selected? Query Text:Check all the applicable criteria. A minimum of two criteria are recommended for diagnosis of either severe or non-severe malnutrition. Malnutrition Related to Morbid Obesity Malnutrition related to morbid obesity No Intervention/Recommendation Comments 1. Recommend decreasing Glucerna 1.2 rate to 60ml/hr x 20hr considering elevated BUN and excesive protein intake. It provides 1608kcal, 80g protein, 888ml free water, meeting 100% of nutritional needs 2. Consider adding Amrit BID via Gtube to help with wound healing. 3. Monitor TF rate, tolerance, wt, skin integrity and labs 4. F/U as high risk in 2-3 days, 02/05-02/06 Expected Outcomes/Goals Expected Outcomes/Goals 1. Pt to meet at least 75% of nutritional needs via nutrition support with tolerance 2. Wt stability, skin integrity to improve., labs to approach WNL.
--- NOTE | 2018-02-09 11:35 | Diagnostic Imaging Report ---
CT scan abdomen and pelvis without intravenous contrast HISTORY: Colon cancer, prior colectomy, anemia Total DLP equals 332 CTDI equals 6.7 Axial sections were obtained from the xiphoid process down to the pubic symphysis. Limited sections of the lower chest demonstrate nonspecific interstitial changes in the lower lobes of the lungs which appear chronic. No focal hepatic lesions are seen. The spleen appears normal. Gastrostomy tube noted. Suboptimal delineation of the margins about the pancreas. No obvious focal lesions are seen. No significant focal renal lesions. No hydronephrosis. There is diastases of the rectus abdominis muscles along with what appears to be a surgical defect and changes within the mid anterior abdomen wall at the level of the umbilicus. The exam of the pelvis demonstrates an enlarged uterus with numerous calcifications consistent with extensive fibroid changes. No other abnormal masses or fluid collections. Colonic diverticula are seen. No bowel dilatation. Findings consistent with patient's history of a prior right colectomy noted. IMPRESSION: 1. No acute abnormalities 2. Findings consistent with surgical changes 3. Diverticulosis 4. Enlarged uterus with numerous calcifications consistent with extensive fibroid changes 5. Moderately distended stool-filled rectum 6. Gastrostomy tube
--- NOTE | 2018-02-09 12:42 | General Progress Note ---
Subjective - Review of Systems Service Date: 02/09/18 Subjective: sleeping, comfortable Objective - Results Result Diagrams: 02/09/18 05:25 02/09/18 05:25 Recent Labs: Laboratory Last Values WBC 7.0 Th/cmm (4.8-10.8) 02/09/18 05:25 RBC 3.67 Mil/cmm (3.80-5.20) L 02/09/18 05:25 Hgb 10.2 gm/dL (12-16) L 02/09/18 05:25 Hct 31.6 % (41.0-60) L 02/09/18 05:25 MCV 86.2 fl (81-100) 02/09/18 05:25 MCH 27.9 pg (27.0-31.0) 02/09/18 05:25 MCHC Differential 32.4 pg (28.0-36.0) 02/09/18 05:25 RDW 16.6 % (11.5-20.0) 02/09/18 05:25 Plt Count 179 Th/cmm (150-400) 02/09/18 05:25 MPV 10.1 fl 02/09/18 05:25 Add Manual Diff YES 02/05/18 06:09 Neutrophils % 64.2 % (40.0-80.0) 02/09/18 05:25 Band Neutrophils % 0 % (0-10) 02/05/18 06:09 Lymphocytes % 22.8 % (20.0-50.0) 02/09/18 05:25 Monocytes % 8.9 % (2.0-10.0) 02/09/18 05:25 Eosinophils % 3.8 % (0.0-5.0) 02/09/18 05:25 Basophils % 0.3 % (0.0-2.0) 02/09/18 05:25 Neutrophils (Manual) 61 % (40-80) 02/05/18 06:09 Lymphocytes 33 % (20-50) 02/05/18 06:09 Monocytes 5 % (2-10) 02/05/18 06:09 Eosinophils 1 % (0-5) 02/05/18 06:09 Basophils 0 % (0-3) 02/05/18 06:09 Hypochromia 1+ 02/05/18 06:09 Eos Smear Source URINE 02/02/18 23:10 Eos Smear Total Cells NONE SEEN (NONE SEEN) 02/02/18 23:10 PT 10.1 SECONDS (9.5-11.5) 02/08/18 13:45 INR 0.97 (0.5-1.4) 02/08/18 13:45 PTT (Actin FS) 22.0 SECONDS (26.0-38.0) L 02/08/18 13:45 Sodium 139 mEq/L (136-145) 02/09/18 05:25 Potassium 3.6 mEq/L (3.5-5.1) 02/09/18 05:25 Chloride 98 mEq/L (98-107) 02/09/18 05:25 Carbon Dioxide 34.7 mEq/L (21.0-31.0) H 02/09/18 05:25 Anion Gap 9.9 (7.0-16.0) 02/09/18 05:25 BUN 44 mg/dL (7-25) H 02/09/18 05:25 Creatinine 1.1 mg/dL (0.6-1.2) 02/09/18 05:25 Est GFR ( Amer) TNP 02/09/18 05:25 Est GFR (Non-Af Amer) TNP 02/09/18 05:25 BUN/Creatinine Ratio 40.0 02/09/18 05:25 Glucose 170 mg/dL (70-105) H 02/09/18 05:25 POC Glucose 137 MG/DL (70 - 105) H 02/09/18 11:50 Whole Bld Lactic Acid 1.04 mmol/L (0.60-1.99) 02/01/18 21:30 Uric Acid 8.7 mg/dL (2.3-6.6) H 02/03/18 05:45 Calcium 9.4 mg/dL (8.6-10.3) 02/09/18 05:25 Phosphorus 3.0 mg/dL (2.5-5.0) 02/03/18 05:45 Magnesium 2.1 mg/dL (1.9-2.7) 02/06/18 04:30 Iron 38 ug/dL (27-139) 02/04/18 05:37 TIBC 239 ug/dL (250-450) L 02/04/18 05:37 Iron Saturation 16 % (15-55) 02/04/18 05:37 Unsaturated IBC 201 ug/dL (118-369) 02/04/18 05:37 Ferritin 58 ng/mL (15-150) 02/04/18 05:37 Total Bilirubin 0.2 mg/dL (0.3-1.0) L 02/01/18 21:30 AST 17 U/L (13-39) 02/01/18 21:30 ALT 16 U/L (7-52) 02/01/18 21:30 Alkaline Phosphatase 79 U/L (34-104) 02/01/18 21:30 Ammonia 51 umol/L (16-53) 02/02/18 11:55 Creatine Kinase 25 U/L (30-223) L 02/01/18 21:30 Troponin I 0.03 ng/mL (0.01-0.05) 02/01/18 21:30 B-Natriuretic Peptide 106.0 pg/mL (5.0-100.0) H 02/04/18 05:37 Total Protein 6.9 gm/dL (6.0-8.3) 02/01/18 21:30 Albumin 3.3 gm/dL (3.7-5.3) L 02/01/18 21:30 Globulin 3.6 gm/dL 02/01/18 21:30 Albumin/Globulin Ratio 0.9 (1.0-1.8) L 02/01/18 21:30 Vitamin B12 1520 pg/mL (232-1245) H 02/04/18 05:37 Folic Acid >20.0 ng/mL (>3.0) 02/04/18 05:37 TSH 2.52 uIU/ml (0.34-5.60) 02/03/18 05:45 Urine Osmolality 472 mOsmol/kg 02/02/18 23:10 Ur Random Sodium 40 mmol/L 02/02/18 23:10 Urine Creatinine 32.2 mg/dl 02/02/18 23:10 Urine Microalbumin 185.5 02/02/18 23:10 Microalb/Creat Ratio 576.1 02/02/18 23:10 Stool Occult Blood POSITIVE (NEGATIVE) H 02/04/18 05:00 Blood Type O POSITIVE 09/09/18 08:36 Antibody Screen NEGATIVE 02/05/18 08:36 Crossmatch See Detail 02/05/18 08:36 - Physical Exam Vitals and I&O: Vital Signs Temp 96.8 F 02/09/18 12:13 Pulse 64 02/09/18 12:13 Resp 17 02/09/18 12:13 BP 137/70 02/09/18 12:13 Pulse Ox 99 02/09/18 12:13 Intake & Output 02/08/18 02/09/18 02/09/18 18:59 06:59 18:59 Intake Total 1000 1812.333 Balance 1000 1812.333 Weight (lbs) 53.977 kg Intake: Intake, IV Amount 1000 198.333 Dextrose 5% 1,000 ml @ 70 1000 198.333 mls/hr IV .[id number] [facility] Rx#:[id number] Oral 0 Tube Feeding 1414 Other 200 Other: # Voids 3 # Bowel Movements 1 Weight Source Bedscale Active Medications: Current Medications Amlodipine Besylate (Norvasc) 10 mg GT DAILY [facility] Stop: 04/03/18 08:59 Last Admin: 02/09/18 09:45 Dose: 10 mg Ascorbic Acid (Vitamin C) 500 mg GT BID ED Stop: 04/03/18 08:59 Last Admin: 02/09/18 09:45 Dose: 500 mg Glucagon (Glucagen) 1 mg SUBQ PRN PRN PRN Reason: BS BELOW 60 & NOT TOLERATE PO Stop: 03/03/18 23:38 Haloperidol Decanoate (Haldol Dec) 25 mg IM [id number] [facility] Stop: 04/09/18 08:59 Last Admin: 02/08/18 09:12 Dose: 25 mg Dextrose (D5w) 1,000 mls @ 70 mls/hr IV .[id number] [facility] Stop: 04/05/18 13:14 Last Admin: 02/09/18 00:56 Dose: 70 mls/hr Insulin Aspart (Novolog Insulin Sliding Scale) 0 units SUBQ Q6HR ED; Protocol Stop: 04/03/18 00:59 Last Admin: 02/09/18 06:41 Dose: 2 units Mirtazapine (Remeron) 15 mg GT HS [facility]; Protocol Stop: 04/03/18 20:59 Last Admin: 02/09/18 00:55 Dose: 15 mg Multivitamins/Minerals (Theragran M) 15 ml GT DAILY ED Stop: 04/03/18 08:59 Last Admin: 02/09/18 09:45 Dose: 15 ml Pantoprazole Sodium (Protonix) 40 mg GT DAILY@1200 ED Stop: 04/03/18 11:59 Last Admin: 02/08/18 12:24 Dose: 40 mg General: Alert, No acute distress HEENT: Atraumatic, Mucous membr. moist/pink Neck: Supple, +2 carotid pulse wo bruit Cardiovascular: Regular rate, Normal S1, Normal S2 Lungs: Clear to auscultation Abdomen: Bowel sounds, Soft Extremities: no Edema Neurological: Sensation intact Skin: no Rash Psych/Mental Status: Mood NL - Procedures Procedures: Procedures Procedure Code Date EGD PLACE GASTROSTOMY TUBE 75899 06/21/17 EXCISION OF ASCENDING COLON, ENDO, DIAGN [id number] 06/21/17 EXCISION OF CECUM, ENDO, DIAGN 3PFW5BF 06/21/17 EXCISION OF SIGMOID COLON, ENDO, DIAGN [id number] 06/21/17 EXCISION OF STOMACH, ENDO, DIAGN 2AL52AT 06/21/17 INSERTION OF FEEDING DEVICE INTO STOMACH, PERC APPROACH 2FD63OC 06/21/17 INSERTION OF INFUSION DEV INTO SUP VENA CAVA, PERC APPROACH 02TI73L 06/21/17 INTRODUCTION OF NUTRITIONAL INTO CENTRAL VEIN, PERC APPROACH 3K3950F 06/21/17 PARTIAL REMOVAL OF COLON 66007 06/21/17 RESECTION OF RIGHT LARGE INTESTINE, OPEN APPROACH 3ZRS3WI 06/21/17 RESPIRATORY VENTILATION, LESS THAN 24 CONSECUTIVE HOURS 9Z8471G 06/21/17 TRANSFUSE NONAUT RED BLOOD CELLS IN PERIPH VEIN, PERC 71042D4 02/01/18 Assessment/Plan - Assessment Assessment: LEONIE on CKD ALOC Met Enceph Contraction Alk Severe Dehydration T2DM w/ CKD Ess Htn w/ CKD Anemia Acute LGI bleed on CD Cecal mass - Plan Plan: Lab - Result Diagrams 02/03/18 05:45 02/03/18 05:45 Current Medications Amlodipine Besylate (Norvasc) 10 mg GT DAILY ED Stop: 04/03/18 08:59 Last Admin: 02/03/18 09:45 Dose: 10 mg Ascorbic Acid (Vitamin C) 500 mg GT BID ED Stop: 04/03/18 08:59 Last Admin: 02/03/18 09:43 Dose: 500 mg Glucagon (Glucagen) 1 mg SUBQ PRN PRN PRN Reason: BS BELOW 60 & NOT TOLERATE PO Stop: 03/03/18 23:38 Haloperidol Decanoate (Haldol Dec) 25 mg IM [id number] [facility] Stop: 04/02/18 23:44 Dextrose (D5w) 1,000 mls @ 125 mls/hr IV .Q8H ED Stop: 04/03/18 01:59 Last Infusion: 02/03/18 10:30 Dose: 125 mls/hr Insulin Aspart (Novolog Insulin Sliding Scale) 0 units SUBQ Q6HR ED; Protocol Stop: 04/03/18 00:59 Last Admin: 02/03/18 12:23 Dose: Not Given Mirtazapine (Remeron) 15 mg GT HS ED; Protocol Stop: 04/03/18 20:59 Multivitamins/Minerals (Theragran M) 15 ml GT DAILY ED Stop: 04/03/18 08:59 Last Admin: 02/03/18 09:42 Dose: 15 ml Pantoprazole Sodium (Protonix) 40 mg GT DAILY@1200 ED Stop: 04/03/18 11:59 Last Admin: 02/03/18 13: Lab - Result Diagrams 02/09/18 05:25 02/09/18 05:25 Na now 139 replaced K Kidney fnc improved w/ BUN/CR of 44/1.1 continue hydration Hgb/Hct improved after transfusion f/u electrolytes, CBC possible surgical eval cecal mass? Nutritional Asmnt/Malnutr-PDOC - Dietary Evaluation Malnutrition Findings (Please click <Entered> for more info): Nutritional Asmnt/Malnutrition Start: 02/03/18 17: 04 Text: Status: Complete Freq: Protocol: Document 02/03/18 17:10 DIANELYSG (Rec: 02/03/18 17:37 DIANELYSG [email or web address]) Nutritional Asmnt/Malnutrition Patient General Information Nutritional Screening High Risk Diagnosis acute renal failure Pertinent Medical Hx/Surgical Hx HTN, DM, dyslipidemia, demntia , acute renal insufficiency, CHF Subjective Information Consult received for non intact wound. Pt seen lying in bed at time of visit, nonverbal. Verified glucerna 1 .2 running at 67ml/hr at this time. Current Diet Order/ Nutrition Support glucerna 1.2 at 67ml/hr x 20hr , providing 1608kcal and 80g protein Pertinent Medications vit C, novolog, remeron, theragran, protonix Pertinent Labs 02/03 Na 148, BUN 85, Cr 1.4, glucose 159, POC 132-148 Nutritional Hx/Data Height 1.6 m Height (Calculated Centimeters) 160.0 Current Weight (lbs) 49.895 kg Weight (Calculated Kilograms) 49.9 Weight (Calculated Grams) 54707.2 [place] Body Weight 115 Body Mass Index (BMI) 19.5 Weight Status Approriate GI Symptoms GI Symptoms None Last BM 02/03 Difficult in: None Skin Integrity/Comment: non intact skin to sacral area per wound care note benji 10 Estimated Nutritional Goals BEE in Kcals: Using Current wt Calories/Kcals/Kg 27-32 Kcals Calculated 3428-8950 Protein: Using Current wt Protein g/k.2-1.4 monitor renal labs Protein Calculated 60-70 Fluid: ml per MD Nutritional Problem 2. Problem Problem increased nutrition needs Etiology imparied skin integrity Signs/Symptoms: non intact wound to sacral area 1. Problem Problem altered nutrition related labs Etiology acute renal failure, hx of DM Signs/Symptoms: Na 148, BUN 85, Cr 1.4, glucose 159, POC 132-148 Malnutrition Alert Is there a minimum of two criteria No selected? Query Text:Check all the applicable criteria. A minimum of two criteria are recommended for diagnosis of either severe or non-severe malnutrition. Malnutrition Related to Morbid Obesity Malnutrition related to morbid obesity No Intervention/Recommendation Comments 1. Recommend decreasing Glucerna 1.2 rate to 60ml/hr x 20hr considering elevated BUN and excesive protein intake. It provides 1608kcal, 80g protein, 888ml free water, meeting 100% of nutritional needs 2. Consider adding Amrit BID via [employer] to help with wound healing. 3. Monitor TF rate, tolerance, wt, skin integrity and labs 4. F/U as high risk in 2-3 days, 02/05-02/06 Expected Outcomes/Goals Expected Outcomes/Goals 1. Pt to meet at least 75% of nutritional needs via nutrition support with tolerance 2. Wt stability, skin integrity to improve., labs to approach WNL.
[2018-02-09] MEDS: Pantoprazole 40 mg/Packet GT SCH (12:48)
--- NOTE | 2018-02-14 17:00 | Discharge Summary ---
DATE OF DISCHARGE: 02/02/2018 ATTENDING PHYSICIAN: Dr. Jose Tobias. DISCHARGE DIAGNOSES: Cecal mass; severe dehydration, which is improved; history of acute renal failure; diabetes; congestive heart failure; dementia; anxiety; Stool OB positive. HISTORY OF PRESENT ILLNESS: A 77-year-old -[place] female is well known to me from [facility]. The patient was admitted due to BNP. The patient had a BNP done and BUN showed 119. For this reason, the patient was transferred to [facility]. PHYSICAL EXAMINATION: GENERAL: Elderly female, awake, confused, in no apparent distress. VITAL SIGNS: Stable. HEENT: Normocephalic, atraumatic. NECK: Supple. No mass. LUNGS: Clear bilaterally. CARDIOVASCULAR: Regular rate and rhythm. ABDOMEN: Soft, nontender. HOSPITAL COURSE: During the hospital stay, the patient was admitted to the telemetry unit. The patient was kept on aggressive IV fluids for hydration. The patient also had Nephrology consultation done with Dr. Suresh. The patient's stool for OB was positive and the patient had a GI consultation done. The patient's H and H has been stable during the hospital stay. The patient had a surgical consultation done due to possible cecal mass as seen by GI. At this time, there is no further surgical interventions. The patient's BUN and creatinine improved. For this reason, the patient was stable for discharge. CONDITION UPON DISCHARGE: Fair. DISPOSITION: [facility]. JOB# [id number]
== END 2018-02-09 18:51 | DRG 469 ==
LOC: ER 21:13 → TELE 23:45
PROVIDERS: ADMIT Internal Medicine; ATTEND Internal Medicine
PROC: 30233N1 Transfusion of Nonautologous Red Blood Cells into Peripheral Vein, Percutaneous Approach (ICD-10-PCS; principal; 2018-02-05)
DX: N17.9 Acute kidney failure, unspecified (principal); G93.41 Metabolic encephalopathy; E87.0 Hyperosmolality and hypernatremia; E87.3 Alkalosis; E44.0 Moderate protein-calorie malnutrition; E11.21 Type 2 diabetes mellitus with diabetic nephropathy; D63.8 Anemia in other chronic diseases classified elsewhere; C18.0 Malignant neoplasm of cecum; N18.9 Chronic kidney disease, unspecified; I13.0 Hypertensive heart and chronic kidney disease with heart failure and stage 1 through stage 4 chronic kidney disease, or unspecified chronic kidney disease; E86.0 Dehydration; G30.9 Alzheimer's disease, unspecified; F02.80 Dementia in other diseases classified elsewhere, unspecified severity, without behavioral disturbance, psychotic disturbance, mood disturbance, and anxiety; I50.9 Heart failure, unspecified; F41.9 Anxiety disorder, unspecified; E87.6 Hypokalemia; E78.5 Hyperlipidemia, unspecified; Z83.3 Family history of diabetes mellitus; Z82.49 Family history of ischemic heart disease and other diseases of the circulatory system; Z93.1 Gastrostomy status; Z68.21 Body mass index [BMI] 21.0-21.9, adult; Z79.4 Long term (current) use of insulin
CPT/HCPCS: 36415-UA; 71045-TC; 78278-TC; 80048-TC; 80053-TC; 81015-TC; 82043-90; 82140-TC; 82270-TC; 82550-TC; 82570-TC; 82607-90; 82728-90; 82746-90; 82948-90; 83036-90; 83540-90; 83550-90; 83605; 83735-TC; 83880-TC; 83935-90; 84100-TC; 84300-TC; 84443-TC; 84484-TC; 84550-TC; 85007-TC; 85025-TC; 85610-TC; 85730-TC; 86850-TC; 86900-TC; 86901-TC; 86922-TC; 93005; 94760; A9512; J1631; J1815; P9016; Z7610

== ENCOUNTER 2018-03-01 16:22 | Inpatient (IN) | payer MEDICAID ==
--- NOTE | 2018-03-01 16:55 | ED Physician Chart ---
ED Chief Complaint/HPI - Patient Information Date Seen:: 03/01/18 Time Seen:: 16:30 Chief Complaint:: AMS History of Present Illness:: onset x 2 days of AMS with abnormal lab tests today; no report of trauma, LOC, H /As, S/T, neck pain, cough, C/P, SOB, Abd. Pain, A/N/V/D/C, fever, chills, or urinary s/s Allergies:: Allergies Allergy/AdvReac Type Severity Reaction Status Date / Time No Known Allergies Allergy Verified 02/01/18 21:47 Historian:: Patient, EMS Review:: Nurse's Note Reviewed, Old Chart Reviewed, EMS run form Reviewed ED Review of Systems - Review of Systems General/Constitutional: No fever, No chills, No weight loss, Weakness, No diaphoresis, No edema, No loss of appetite Skin: No skin lesions, No rash, No bruising Head: No headache, No light-headedness Eyes: No loss of vision, No pain, No diplopia ENT: No earache, No nasal drainage, No sore throat, No tinnitus Neck: No neck pain, No swelling, No thyromegaly, No stiffness, No mass noted Cardio Vascular: No chest pain, No palpitations, No PND, No orthopnea, No edema Pulmonary: No SOB, No cough, No sputum, No wheezing GI: No nausea, No vomiting, No diarrhea, No pain, No melena, No hematochezia, No constipation, No hematemesis G/U: No dysuria, No frequency, No hematuria, No nacturia 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: No vaginal discharge, No abnormal vaginal bleed, No contraction Musculoskeletal: No bone or joint pain, No back pain, No muscle pain Endocrine: No polyuria, No polydipsia Psychiatric: No prior psych history, No depression, No anxiety, No suicidal ideation, No homicidal ideation, No auditory hallucination, No visual hallucination Hematopoietic: No bruising, No lymphadenopathy Allergic/Immuno: No urticaria, No angioedema Neurological: No syncope, No focal symptoms, Weakness, No paresthesia, No headache, No seizure, No dizziness, Confusion, No vertigo ED Past Medical History - Past Medical History Obtainable: Yes Past Medical History: HTN, DM, Dyslipidemia, ESRD, Dementia Family History: HTN Social History: Non Smoker, No Alcohol, No Drug Use, , Care Facility Surgical History: None Psychiatricy History: Dementia Medication: Reviewed Family Medical History - Family Member Mother History Unknown: Yes Ethnicity: Unknown Living Status: Unknown Hx Family Cancer: No Hx Family Coronary Artery Disease: No Hx Family Congestive Heart Failure: No Hx Family Hypertension: No Hx Family Stroke: No Hx Family Diabetes: No Hx Family Seizures: No Hx Family Dementia: No Hx Family HIV: No Hx Family COPD: No Hx Family Hepatitis: No Hx Family Psychiatric Problems: No Hx Family Tuberculosis: No ED Physical Exam - Physical Examination General/Constitutional: Awake, Well-developed, well-nourished, Alert, No distress, GCS 15, Non-toxic appearing, Ambulatory Head: Atraumatic Eyes: Lids, conjuctiva normal, PERRL, EOMI Skin: Nl inspection, No rash, No skin lesions, No ecchymosis, Well hydrated, No lymphadenopathy ENMT: External ears, nose nl, TM canals nl, Nasal exam nl, Lips, teeth, gums nl , Oropharynx nl, Tonsils nl Neck: Nontender, Full ROM w/o pain, No JVD, No nuchal rigidity, No bruit, No mass, No stridor Respiratory: Nl effort/Exclusion, Clear to Auscultation, No Wheeze/Rhonchi/Rales Cardio Vascular: RRR, No murmur, gallop, rubs, NL S1 S2, Carotid/Femoral/Distal pulses equal bilaterally GI: No tenderness/rebounding/guarding, No organomegaly, No hernia, Normal BS's, Nondistended, No mass/bruits, No McBurney tenderness : No CVA tenderness Extremities: No tenderness or effusion, Full ROM, normal strength in all extremities, No edema, Normal digits & nails Neuro/Psych: Alert/oriented, DTR's symmetric, Normal sensory exam, Normal motor strength, Judgement/insight normal, Mood normal, Normal gait, No focal deficits Misc: Normal back, No paraspinal tenderness ED Labs/Radiology/EKG Results - Lab Results Comments:: Reviewed - Radiology Results Comments:: NAD - EKG Interpretations EKG Time:: 17:17 Rate & Rhythm: 80; NSR Comments:: non-specific st-t changes ED Septic Shock - . Is Septic Shock (SBP<90, OR Lactate>4 mmol\L) present?: No ED Reassessment (Disposition) - Reassessment Reassessment Condition:: Improved - Diagnosis Diagnosis:: Dx: AMS; ESRD; HTN; DM; Anemia; Dehydration; Hypernatremia; Pre-Renal Azotemia; Sepsis; UTI; Leukocytosis - Aftercare/Follow up Instructions Aftercare/Follow-Up Instructions:: Counseled pt regarding lab results/diagnosis & need follow up, Counseled pt & family regarding lab results/diagnosis & need follow up - Patient Disposition Discharge/Transfer:: Acute Care w/in this hosp Accepting Physician:: Dr. Tobias Time Called:: 1829 Time Responded:: 18:30 Admitted to:: Telemetry Spoke to:: Dr. Tobias Admitting Medical Physician:: Dr. Tobias Condition at Disposition:: Stable, Improved
[2018-03-01 17:18] LABS: % BASOPHILS 0.3 % (0.0-2.0); % EOSINOPHILS 1.5 % (0.0-5.0); % LYMPHOCYTES 14.7 % (20.0-50.0); % MONOCYTES 5.3 % (2.0-10.0); % NEUTROPHILS 78.2 % (40.0-80.0); EOSINOPHILE ABSOLUTE 0.2 Th/cmm (0.1-0.4); HEMATOCRIT 26.9 % (41.0-60); HEMOGLOBIN 8.8 gm/dL (12-16); LYMPHOCYTE ABSOLUTE 2.1 Th/cmm (1.5-3.0); MEAN CELL VOLUME 83.8 fl (81-100); MEAN CORPUSCULAR HEMOGLOBIN 27.3 pg (27.0-31.0); MEAN CORPUSCULAR HGB CONC 32.6 pg (28.0-36.0); MEAN PLATELET VOLUME 10.3 fl; MONOCYTE ABSOLUTE 0.8 Th/cmm (0.3-1.0); NEUTROPHILE ABSOLUTE 11.2 Th/cmm (1.8-8.0); PLATELET COUNT 401 Th/cmm (150-400); RED BLOOD COUNT 3.22 Mil/cmm (3.80-5.20); RED CELL DISTRIBUTION WIDTH 16.1 % (11.5-20.0); WHITE BLOOD COUNT 14.3 Th/cmm (4.8-10.8)
[2018-03-01 17:32] LABS: INR 0.94 (0.5-1.4); PROTHROMBIN TIME (TEST) 9.8 SECONDS (9.5-11.5)
[2018-03-01 17:38] LABS: ALB/GLOB RATIO 0.8 (1.0-1.8); ALBUMIN 3.1 gm/dL (3.7-5.3); ALKALINE PHOSPHATASE 78 U/L (34-104); ANION GAP 12.2 (7.0-16.0); BILIRUBIN,TOTAL 0.2 mg/dL (0.3-1.0); CHLORIDE 104 mEq/L (98-107); CREATININE - SERUM 2.3 mg/dL (0.6-1.2); CREATININE KINASE 176 U/L (30-223); GLUCOSE 182 mg/dL (70-105); POTASSIUM SERUM 3.7 mEq/L (3.5-5.1); SGOT 23 U/L (13-39); SGPT/ALT 24 U/L (7-52)
[2018-03-01 17:44] LABS: CARBON DIOXIDE 47.5 mEq/L (21.0-31.0); SODIUM SERUM 160 mEq/L (136-145); TROP I 0.06 ng/mL (0.01-0.05)
[2018-03-01 17:45] LABS: BUN - UREA NITROGEN 178 mg/dL (7-25)
[2018-03-01 17:55] LABS: URINE SOURCE MIDSTREAM
[2018-03-01 17:57] LABS: URINE BILIRUBIN NEGATIVE (NEGATIVE); URINE BLOOD TRACE (NEGATIVE); URINE GLUCOSE (UA) NEGATIVE (NEGATIVE); URINE KETONE NEGATIVE (NEGATIVE); URINE LEUKOCYTE ESTERASE LARGE (NEGATIVE); URINE MICROSCOPIC INDICATED? YES; URINE NITRATE NEGATIVE (NEGATIVE); URINE PROTEIN 30 mg/dL (NEGATIVE); URINE UROBILINOGEN 0.2 E.U./dL (0.2 - 1.0)
[2018-03-01] MEDS ORDERED: Sodium Chloride 0.9% 1,000 ML IV ONE (17:58)
[2018-03-01 18:09] LABS: URINE CLARITY HAZY (CLEAR); URINE COLOR YELLOW
[2018-03-01 18:11] LABS: URINE BACTERIA 3+ /hpf (NONE SEEN); URINE EPITHELIAL CELLS MANY /lpf (FEW)
[2018-03-01 18:12] LABS: AMYLASE SERUM 48 U/L (29-103); LIPASE 44 U/L (11-82)
[2018-03-01] MEDS ORDERED: cefTRIAXone 1 GM in Sodium Chloride 0.9% 50 ML IV ONE (18:29)
[2018-03-01] MEDS ORDERED: Non-Formulary Item 1 EA (Glucagon,Human Recombinant [Glucagon Emergency Kit] 1 MG) IJ PRN (19:12)
[2018-03-01] MEDS ORDERED: Albuterol Nebulizer 2.5mg/3mL HHN PRN (19:15)
[2018-03-01] MEDS ORDERED: Ipratropium Neb 0.5 mg/2.5 mL UD HHN PRN (19:15)
[2018-03-01 21:37] VITALS: BP 155/73
[2018-03-01] MEDS: INSULIN ASPART, RECOMBINANT 100 UNITS/ML SUBQ SCH (22:18)
[2018-03-01] MEDS: Sodium Chloride 0.45% 1,000 ML IV SCH (22:22)
[2018-03-02 06:09] LABS: % BASOPHILS 0.1 % (0.0-2.0); % EOSINOPHILS 1.9 % (0.0-5.0); % LYMPHOCYTES 12.4 % (20.0-50.0); % MONOCYTES 5.2 % (2.0-10.0); % NEUTROPHILS 80.4 % (40.0-80.0); EOSINOPHILE ABSOLUTE 0.2 Th/cmm (0.1-0.4); LYMPHOCYTE ABSOLUTE 1.4 Th/cmm (1.5-3.0); MEAN CELL VOLUME 84.2 fl (81-100); MEAN CORPUSCULAR HEMOGLOBIN 27.5 pg (27.0-31.0); MEAN CORPUSCULAR HGB CONC 32.6 pg (28.0-36.0); MEAN PLATELET VOLUME 10.5 fl; MONOCYTE ABSOLUTE 0.6 Th/cmm (0.3-1.0); NEUTROPHILE ABSOLUTE 8.7 Th/cmm (1.8-8.0); RED BLOOD COUNT 2.81 Mil/cmm (3.80-5.20); RED CELL DISTRIBUTION WIDTH 15.9 % (11.5-20.0)
[2018-03-02 06:24] LABS: WHITE BLOOD COUNT 10.9 Th/cmm (4.8-10.8)
[2018-03-02 06:26] LABS: HEMOGLOBIN 7.7 gm/dL (12-16)
[2018-03-02 06:27] LABS: HEMATOCRIT 23.6 % (41.0-60); PLATELET COUNT 317 Th/cmm (150-400)
[2018-03-02 06:32] LABS: ANION GAP 12.4 (7.0-16.0); CALCIUM SERUM 9.6 mg/dL (8.6-10.3); CHLORIDE 107 mEq/L (98-107); CREATININE - SERUM 2.1 mg/dL (0.6-1.2); POTASSIUM SERUM 3.5 mEq/L (3.5-5.1)
[2018-03-02] MEDS: Sodium Chloride 0.45% 1,000 ML IV SCH (06:36)
[2018-03-02] MEDS: INSULIN ASPART, RECOMBINANT 100 UNITS/ML SUBQ SCH ×3 (06:37→17:58)
[2018-03-02] MEDS: Pantoprazole 40 mg/Packet GT SCH (06:38)
[2018-03-02 06:56] LABS: BUN - UREA NITROGEN 171 mg/dL (7-25); CARBON DIOXIDE 44.1 mEq/L (21.0-31.0); SODIUM SERUM 160 mEq/L (136-145)
[2018-03-02 06:57] LABS: GLUCOSE 315 mg/dL (70-105)
--- NOTE | 2018-03-02 08:36 | Diagnostic Imaging Report ---
CHEST X-RAY: AP view INDICATION: pain COMPARISON: 02/01/2018 FINDINGS: Exam is limited due to patient positioning. There is no focal consolidation or pleural effusions The heart is normal in size. Mildly tortuous aorta is noted with atherosclerosis. Degenerative changes of the spine are noted. IMPRESSION: No focal consolidation identified. Atherosclerotic vascular disease.
[2018-03-02] MEDS: Multivitamin w/ Minerals Tab GT SCH (08:45)
--- NOTE | 2018-03-02 13:31 | Internal Medicine Prog Note ---
Internal Medicine Subjective - Subjective Service Date: 03/02/18 ([facility] [id number]) Internal Medicine Objective - Results Result Diagrams: 03/02/18 05:45 03/02/18 05:45 Recent Labs: Laboratory Last Values WBC 10.9 Th/cmm (4.8-10.8) H D 03/02/18 05:45 RBC 2.81 Mil/cmm (3.80-5.20) L 03/02/18 05:45 Hgb 7.7 gm/dL (12-16) L* 03/02/18 05:45 Hct 23.6 % (41.0-60) L 03/02/18 05:45 MCV 84.2 fl (81-100) 03/02/18 05:45 MCH 27.5 pg (27.0-31.0) 03/02/18 05:45 MCHC Differential 32.6 pg (28.0-36.0) 03/02/18 05:45 RDW 15.9 % (11.5-20.0) 03/02/18 05:45 Plt Count 317 Th/cmm (150-400) D 03/02/18 05:45 MPV 10.5 fl 03/02/18 05:45 Neutrophils % 80.4 % (40.0-80.0) H 03/02/18 05:45 Lymphocytes % 12.4 % (20.0-50.0) L 03/02/18 05:45 Monocytes % 5.2 % (2.0-10.0) 03/02/18 05:45 Eosinophils % 1.9 % (0.0-5.0) 03/02/18 05:45 Basophils % 0.1 % (0.0-2.0) 03/02/18 05:45 PT 9.8 SECONDS (9.5-11.5) 03/01/18 17:00 INR 0.94 (0.5-1.4) 03/01/18 17:00 PTT (Actin FS) 22.2 SECONDS (26.0-38.0) L 03/01/18 17:00 Sodium 160 mEq/L (136-145) H* 03/02/18 05:45 Potassium 3.5 mEq/L (3.5-5.1) 03/02/18 05:45 Chloride 107 mEq/L (98-107) 03/02/18 05:45 Carbon Dioxide 44.1 mEq/L (21.0-31.0) H 03/02/18 05:45 Anion Gap 12.4 (7.0-16.0) 03/02/18 05:45 BUN 171 mg/dL (7-25) H* 03/02/18 05:45 Creatinine 2.1 mg/dL (0.6-1.2) H 03/02/18 05:45 Est GFR ( Amer) TNP 03/02/18 05:45 Est GFR (Non-Af Amer) TNP 03/02/18 05:45 BUN/Creatinine Ratio 81.4 03/02/18 05:45 Glucose 315 mg/dL (70-105) H D 03/02/18 05:45 POC Glucose 256 MG/DL (70 - 105) H 03/02/18 12:03 Whole Bld Lactic Acid 1.20 mmol/L (0.60-1.99) 03/01/18 17:00 Calcium 9.6 mg/dL (8.6-10.3) 03/02/18 05:45 Total Bilirubin 0.2 mg/dL (0.3-1.0) L 03/01/18 17:00 AST 23 U/L (13-39) 03/01/18 17:00 ALT 24 U/L (7-52) 03/01/18 17:00 Alkaline Phosphatase 78 U/L (34-104) 03/01/18 17:00 Ammonia 57 umol/L (16-53) H 03/02/18 05:45 Creatine Kinase 176 U/L (30-223) 03/01/18 17:00 Troponin I 0.06 ng/mL (0.01-0.05) H D 03/01/18 17:00 B-Natriuretic Peptide 113.0 pg/mL (5.0-100.0) H 03/02/18 05:45 Total Protein 7.0 gm/dL (6.0-8.3) 03/01/18 17:00 Albumin 3.1 gm/dL (3.7-5.3) L 03/01/18 17:00 Globulin 3.9 gm/dL 03/01/18 17:00 Albumin/Globulin Ratio 0.8 (1.0-1.8) L 03/01/18 17:00 Amylase 48 U/L (29-103) 03/01/18 17:00 Lipase 44 U/L (11-82) 03/01/18 17:00 TSH 1.34 uIU/ml (0.34-5.60) 03/02/18 05:45 Urine Source MIDSTREAM 03/01/18 17:53 Urine Color YELLOW 03/01/18 17:53 Urine Clarity HAZY (CLEAR) 03/01/18 17:53 Urine pH 8.0 (4.6 - 8.0) 03/01/18 17:53 Ur Specific [place] 1.010 (1.005-1.030) 03/01/18 17:53 Urine Protein 30 mg/dL (NEGATIVE) H 03/01/18 17:53 Urine Glucose (UA) NEGATIVE mg/dL (NEGATIVE) 03/01/18 17:53 Urine Ketones NEGATIVE mg/dL (NEGATIVE) 03/01/18 17:53 Urine Blood TRACE (NEGATIVE) 03/01/18 17:53 Urine Nitrate NEGATIVE (NEGATIVE) 03/01/18 17:53 Urine Bilirubin NEGATIVE (NEGATIVE) 03/01/18 17:53 Urine Urobilinogen 0.2 E.U./dL (0.2 - 1.0) 03/01/18 17:53 Ur Leukocyte Esterase LARGE (NEGATIVE) H 03/01/18 17:53 Urine RBC 2-5 /hpf (0-5) 03/01/18 17:53 Urine WBC 10-25 /hpf (0-5) H 03/01/18 17:53 Ur Epithelial Cells MANY /lpf (FEW) 03/01/18 17:53 Urine Bacteria 3+ /hpf (NONE SEEN) H 03/01/18 17:53 - Physical Exam Vitals and I&O: Vital Signs Temp 99.4 F 03/02/18 11:35 Pulse 76 03/02/18 11:35 Resp 17 03/02/18 11:35 BP 103/69 03/02/18 11:35 Pulse Ox 99 03/02/18 11:35 Intake & Output 03/01/18 03/02/18 03/02/18 18:59 06:59 18:59 Intake Total 3710.333 Balance 3710.333 Weight (lbs) 119 lb 107 lb 1.6 oz Intake: Intake, IV Amount 2973.333 Sodium Chloride 0.45% 1, 1823.333 000 ml @ 100 mls/hr IV . Q10H ED Rx#:[id number] Sodium Chloride 0.9% 1, 1000 000 ml @ 100 mls/hr IV . Q10H ONE Rx#:[id number] cefTRIAXone 1 gm In 50 Sodium Chloride 0.9% 50 ml @ 100 mls/hr IV Q24HR ED Rx#:[id number] cefTRIAXone 1 gm In 100 Sodium Chloride 0.9% 50 ml @ 100 mls/hr IV X1 ONE Rx#:[id number] Oral 0 Tube Feeding 637 Other 100 Other: # Voids 2 # Bowel Movements 1 Weight Source Estimated Bedscale Active Medications: Current Medications Acetaminophen (Tylenol) 650 mg PO Q4H PRN PRN Reason: Pain Or Fever above 101 Stop: 04/30/18 19:14 Albuterol Sulfate (Albuterol 2.5mg/3ml Neb Ud) 2.5 mg HHN Q2HRT PRN PRN Reason: Shortness of Breath or Wheeze Stop: 04/30/18 19:14 Amlodipine Besylate (Norvasc) 10 mg GT DAILY [facility] Stop: 05/01/18 08:59 Last Admin: 03/02/18 08:45 Dose: 10 mg Ascorbic Acid (Vitamin C) 500 mg GT BID ED Stop: 05/01/18 08:59 Last Admin: 03/02/18 08:45 Dose: 500 mg Ceftriaxone Sodium 1 gm/ (Sodium Chloride) 50 mls @ 100 mls/hr IV Q24HR [facility] Stop: 05/01/18 17:59 Sodium Chloride (Nacl 0.45%) 1,000 mls @ 100 mls/hr IV .Q10H [facility] Stop: 04/30/18 19:14 Last Admin: 03/02/18 06:36 Dose: 100 mls/hr Insulin Aspart (Novolog) 0 units SUBQ ACHS ED; Protocol Stop: 04/30/18 20:59 Last Admin: 03/02/18 12:47 Dose: 4 units Ipratropium [place] (Atrovent Neb 0.5mg/2.5ml) 0.5 mg HHN Q2HRT PRN PRN Reason: Shortness of Breath or Wheeze Stop: 04/30/18 19:14 Mirtazapine (Remeron) 15 mg GT HS ED; Protocol Stop: 04/30/18 20:59 Last Admin: 03/01/18 22:22 Dose: 15 mg Miscellaneous (Glucagon,Human Recombinant [Glucagon Emergency Kit]) 1 mg IJ PRN PRN PRN Reason: HYPOGLYCEMIA Ondansetron HCl (Zofran) 4 mg IV Q8H PRN PRN Reason: Nausea / Vomiting Stop: 04/30/18 19:14 Pantoprazole Sodium (Protonix) 40 mg GT QDAC ED Stop: 05/01/18 07:29 Last Admin: 03/02/18 06:38 Dose: 40 mg - Procedures Procedures: Procedures Procedure Code Date EGD PLACE GASTROSTOMY TUBE 66791 06/21/17 EXCISION OF ASCENDING COLON, ENDO, DIAGN [id number] 06/21/17 EXCISION OF CECUM, ENDO, DIAGN [id number] 06/21/17 EXCISION OF SIGMOID COLON, ENDO, DIAGN [id number] 06/21/17 EXCISION OF STOMACH, ENDO, DIAGN [id number] 06/21/17 INSERTION OF FEEDING DEVICE INTO STOMACH, PERC APPROACH [id number] 06/21/17 INSERTION OF INFUSION DEV INTO SUP VENA CAVA, PERC APPROACH 60IA16W 06/21/17 INTRODUCTION OF NUTRITIONAL INTO CENTRAL VEIN, PERC APPROACH [id number] 06/21/17 PARTIAL REMOVAL OF COLON 96104 06/21/17 RESECTION OF RIGHT LARGE INTESTINE, OPEN APPROACH 8FIF4XP 06/21/17 RESPIRATORY VENTILATION, LESS THAN 24 CONSECUTIVE HOURS [id number] 06/21/17 TRANSFUSE NONAUT RED BLOOD CELLS IN PERIPH VEIN, PERC [id number] 02/01/18
--- NOTE | 2018-03-02 15:35 | History & Physical ---
ADMIT DATE: 03/02/2018 DICTATED FOR: Dr. Jose Tobias CHIEF COMPLAINT: BUN of 179, creatinine of 2.0 and sodium of 160. HISTORY OF PRESENT ILLNESS: This is a 77-year-old -Citizen Of [place] female well known to me from [facility]. The patient was recently discharged from this hospital on 02/14/2018 for elevated BUN and creatinine. The patient is now admitted for the same reasons. The patient has been receiving aggressive water flush at the [facility]. Despite of water flushes, the patient's BUN and creatinine remains to be elevated. For further management, the patient is now here. PAST MEDICAL HISTORY: Hypertension, diabetes, dyslipidemia, dementia, acute renal insufficiency, CHF. FAMILY HISTORY: Noncontributory. SOCIAL HISTORY: The patient is a [facility] resident, requiring 24-hour nursing care. PAST SURGICAL HISTORY: PEG. MEDICATIONS: Please see medication list. REVIEW OF SYSTEMS: Unable to obtain due to the patient's mental status. PHYSICAL EXAMINATION: GENERAL: Elderly female, appears chronically ill, no apparent distress. VITAL SIGNS: Temperature 99.4, heart rate 76, blood pressure 103/69, respirations 17, O2 99%. HEENT: Head; normocephalic, atraumatic. NECK: Supple. No mass. LUNGS: Clear bilaterally. CARDIOVASCULAR: Regular rate and rhythm. ABDOMEN: Soft, nontender, nondistended. LABORATORY DATA: WBC 10.9, H and H 7.7 and 23.6, platelet of 317. Sodium 160, potassium 3.5, chloride 107, BUN 171, creatinine 2.1, ammonia 57. DIAGNOSTIC DATA: The patient had a chest x-ray done, impression is no focal consolidation identified, atherosclerotic vascular disease. ASSESSMENT: Acute urinary tract infection, elevated BUN and creatinine, acute renal insufficiency, rule out severe dehydration. Hypertension, diabetes, dyslipidemia, dementia, history of congestive heart failure. PLAN: The patient will be admitted to the telemetry unit. We will keep the patient on aggressive IV fluids for hydration, empiric IV antibiotics of Rocephin 1 gram IV q.24. We will monitor the patient's BUN and creatinine closely. Accu-Chek a.c. and at bedtime. We will continue to follow this patient. JOB# [id number]
[2018-03-02] MEDS ORDERED: cefTRIAXone 1 GM in Sodium Chloride 0.9% 50 ML IV SCH (18:00)
[2018-03-03] MEDS: INSULIN ASPART, RECOMBINANT 100 UNITS/ML SUBQ SCH ×5 (00:15→23:56)
[2018-03-03] MEDS: Sodium Chloride 0.45% 1,000 ML IV SCH ×2 (04:51→15:21)
[2018-03-03 06:34] LABS: % BASOPHILS 0.4 % (0.0-2.0); % EOSINOPHILS 3.8 % (0.0-5.0); % LYMPHOCYTES 14.9 % (20.0-50.0); % MONOCYTES 6.7 % (2.0-10.0); % NEUTROPHILS 74.2 % (40.0-80.0); EOSINOPHILE ABSOLUTE 0.4 Th/cmm (0.1-0.4); HEMATOCRIT 22.2 % (41.0-60); LYMPHOCYTE ABSOLUTE 1.5 Th/cmm (1.5-3.0); MEAN CELL VOLUME 84.5 fl (81-100); MEAN CORPUSCULAR HEMOGLOBIN 27.3 pg (27.0-31.0); MEAN CORPUSCULAR HGB CONC 32.4 pg (28.0-36.0); MEAN PLATELET VOLUME 10.8 fl; MONOCYTE ABSOLUTE 0.7 Th/cmm (0.3-1.0); NEUTROPHILE ABSOLUTE 7.8 Th/cmm (1.8-8.0); PLATELET COUNT 339 Th/cmm (150-400); RED BLOOD COUNT 2.63 Mil/cmm (3.80-5.20); RED CELL DISTRIBUTION WIDTH 15.8 % (11.5-20.0); WHITE BLOOD COUNT 10.4 Th/cmm (4.8-10.8)
[2018-03-03] MEDS: Pantoprazole 40 mg/Packet GT SCH (06:34)
[2018-03-03 06:41] LABS: HEMOGLOBIN 7.2 gm/dL (12-16)
[2018-03-03 06:49] LABS: ALB/GLOB RATIO 0.7 (1.0-1.8); ALBUMIN 2.6 gm/dL (3.7-5.3); ALKALINE PHOSPHATASE 67 U/L (34-104); ANION GAP 13.3 (7.0-16.0); BILIRUBIN,TOTAL 0.2 mg/dL (0.3-1.0); CALCIUM SERUM 9.2 mg/dL (8.6-10.3); CHLORIDE 108 mEq/L (98-107); GLUCOSE 279 mg/dL (70-105); MAGNESIUM 3.1 mg/dL (1.9-2.7); POTASSIUM SERUM 3.1 mEq/L (3.5-5.1); SGOT 22 U/L (13-39); SGPT/ALT 24 U/L (7-52); TOTAL PROTEIN,SERUM 6.4 gm/dL (6.0-8.3)
[2018-03-03 07:08] LABS: CARBON DIOXIDE 40.8 mEq/L (21.0-31.0); SODIUM SERUM 159 mEq/L (136-145)
[2018-03-03 07:09] LABS: BUN - UREA NITROGEN 152 mg/dL (7-25)
[2018-03-03] MEDS: Venelex 60gm Tube TP SCH (08:19)
[2018-03-03] MEDS: Multivitamin w/ Minerals Tab GT SCH (08:19)
[2018-03-03 12:16] LABS: FOLIC ACID >20.0 ng/mL (>3.0)
--- NOTE | 2018-03-03 12:53 | Internal Medicine Prog Note ---
Internal Medicine Subjective - Subjective Service Date: 03/03/18 Patient seen and examined:: with staff Patient is:: awake, non-verbal Per staff patient has:: tolerating meds Internal Medicine Objective - Results Result Diagrams: 03/03/18 05:50 03/03/18 05:50 Recent Labs: Laboratory Last Values WBC 10.4 Th/cmm (4.8-10.8) 03/03/18 05:50 RBC 2.63 Mil/cmm (3.80-5.20) L 03/03/18 05:50 Hgb 7.2 gm/dL (12-16) L* 03/03/18 05:50 Hct 22.2 % (41.0-60) L 03/03/18 05:50 MCV 84.5 fl (81-100) 03/03/18 05:50 MCH 27.3 pg (27.0-31.0) 03/03/18 05:50 MCHC Differential 32.4 pg (28.0-36.0) 03/03/18 05:50 RDW 15.8 % (11.5-20.0) 03/03/18 05:50 Plt Count 339 Th/cmm (150-400) 03/03/18 05:50 MPV 10.8 fl 03/03/18 05:50 Neutrophils % 74.2 % (40.0-80.0) 03/03/18 05:50 Lymphocytes % 14.9 % (20.0-50.0) L 03/03/18 05:50 Monocytes % 6.7 % (2.0-10.0) 03/03/18 05:50 Eosinophils % 3.8 % (0.0-5.0) 03/03/18 05:50 Basophils % 0.4 % (0.0-2.0) 03/03/18 05:50 PT 9.8 SECONDS (9.5-11.5) 03/01/18 17:00 INR 0.94 (0.5-1.4) 03/01/18 17:00 PTT (Actin FS) 22.2 SECONDS (26.0-38.0) L 03/01/18 17:00 Sodium 159 mEq/L (136-145) H* 03/03/18 05:50 Potassium 3.1 mEq/L (3.5-5.1) L 03/03/18 05:50 Chloride 108 mEq/L (98-107) H 03/03/18 05:50 Carbon Dioxide 40.8 mEq/L (21.0-31.0) H 03/03/18 05:50 Anion Gap 13.3 (7.0-16.0) 03/03/18 05:50 BUN 152 mg/dL (7-25) H* 03/03/18 05:50 Creatinine 2.0 mg/dL (0.6-1.2) H 03/03/18 05:50 Est GFR ( Amer) TNP 03/03/18 05:50 Est GFR (Non-Af Amer) TNP 03/03/18 05:50 BUN/Creatinine Ratio 76.0 03/03/18 05:50 Glucose 279 mg/dL (70-105) H 03/03/18 05:50 POC Glucose 201 MG/DL (70 - 105) H 03/03/18 11:28 Whole Bld Lactic Acid 1.20 mmol/L (0.60-1.99) 03/01/18 17:00 Calcium 9.2 mg/dL (8.6-10.3) 03/03/18 05:50 Magnesium 3.1 mg/dL (1.9-2.7) H 03/03/18 05:50 Total Bilirubin 0.2 mg/dL (0.3-1.0) L 03/03/18 05:50 AST 22 U/L (13-39) 03/03/18 05:50 ALT 24 U/L (7-52) 03/03/18 05:50 Alkaline Phosphatase 67 U/L (34-104) 03/03/18 05:50 Ammonia 73 umol/L (16-53) H 03/03/18 05:50 Creatine Kinase 176 U/L (30-223) 03/01/18 17:00 Troponin I 0.06 ng/mL (0.01-0.05) H D 03/01/18 17:00 B-Natriuretic Peptide 175.0 pg/mL (5.0-100.0) H 03/03/18 05:50 Total Protein 6.4 gm/dL (6.0-8.3) 03/03/18 05:50 Albumin 2.6 gm/dL (3.7-5.3) L 03/03/18 05:50 Globulin 3.8 gm/dL 03/03/18 05:50 Albumin/Globulin Ratio 0.7 (1.0-1.8) L 03/03/18 05:50 Amylase 48 U/L (29-103) 03/01/18 17:00 Lipase 44 U/L (11-82) 03/01/18 17:00 Vitamin B12 1179 pg/mL (232-1245) 03/02/18 05:45 Folic Acid >20.0 ng/mL (>3.0) 03/02/18 05:45 TSH 1.34 uIU/ml (0.34-5.60) 03/02/18 05:45 Urine Source MIDSTREAM 03/01/18 17:53 Urine Color YELLOW 03/01/18 17:53 Urine Clarity HAZY (CLEAR) 03/01/18 17:53 Urine pH 8.0 (4.6 - 8.0) 03/01/18 17:53 Ur Specific [place] 1.010 (1.005-1.030) 03/01/18 17:53 Urine Protein 30 mg/dL (NEGATIVE) H 03/01/18 17:53 Urine Glucose (UA) NEGATIVE mg/dL (NEGATIVE) 03/01/18 17:53 Urine Ketones NEGATIVE mg/dL (NEGATIVE) 03/01/18 17:53 Urine Blood TRACE (NEGATIVE) 03/01/18 17:53 Urine Nitrate NEGATIVE (NEGATIVE) 03/01/18 17:53 Urine Bilirubin NEGATIVE (NEGATIVE) 03/01/18 17:53 Urine Urobilinogen 0.2 E.U./dL (0.2 - 1.0) 03/01/18 17:53 Ur Leukocyte Esterase LARGE (NEGATIVE) H 03/01/18 17:53 Urine RBC 2-5 /hpf (0-5) 03/01/18 17:53 Urine WBC 10-25 /hpf (0-5) H 03/01/18 17:53 Ur Epithelial Cells MANY /lpf (FEW) 03/01/18 17:53 Urine Bacteria 3+ /hpf (NONE SEEN) H 03/01/18 17:53 - Physical Exam Vitals and I&O: Vital Signs Temp 99.4 F 03/03/18 08:00 Pulse 85 03/03/18 08:18 Resp 20 03/03/18 08:00 BP 143/67 03/03/18 08:18 Pulse Ox 100 03/03/18 08:00 Intake & Output 03/02/18 03/03/18 03/03/18 18:59 06:59 18:59 Intake Total 2039 50 Balance 2039 50 Weight (lbs) 107 lb 122 lb 4.8 oz Intake: Intake, IV Amount 1000 50 Sodium Chloride 0.45% 1, 1000 000 ml @ 100 mls/hr IV . Q10H [facility] Rx#:[id number] cefTRIAXone 1 gm In 50 Sodium Chloride 0.9% 50 ml @ 100 mls/hr IV Q24HR ED Rx#:[id number] Oral 0 Tube Feeding 1040 Other: # Voids 5 3 # Bowel Movements 2 1 Stool Characteristics Soft Soft Brown Brown Weight Source Bedscale Bedscale Active Medications: Current Medications Acetaminophen (Tylenol) 650 mg PO Q4H PRN PRN Reason: Pain Or Fever above 101 Stop: 04/30/18 19:14 Last Admin: 03/02/18 22:18 Dose: 650 mg Albuterol Sulfate (Albuterol 2.5mg/3ml Neb Ud) 2.5 mg HHN Q2HRT PRN PRN Reason: Shortness of Breath or Wheeze Stop: 04/30/18 19:14 Amlodipine Besylate (Norvasc) 10 mg GT DAILY [facility] Stop: 05/01/18 08:59 Last Admin: 03/03/18 08:18 Dose: 10 mg Ascorbic Acid (Vitamin C) 500 mg GT BID ED Stop: 05/01/18 08:59 Last Admin: 03/03/18 08:19 Dose: 500 mg [place] Oil/[place]is[place] Balsam/Trypsin (Venelex) 1 appl TP DAILY ED Stop: 05/02/18 08:59 Last Admin: 03/03/18 08:19 Dose: 1 appl Sodium Chloride (Nacl 0.45%) 1,000 mls @ 100 mls/hr IV .Q10H ED Stop: 04/30/18 19:14 Last Admin: 03/03/18 04:51 Dose: 100 mls/hr Insulin Aspart (Novolog) 0 units SUBQ Q6HR ED; Protocol Stop: 05/01/18 17:59 Last Admin: 03/03/18 11:37 Dose: 2 units Ipratropium [place] (Atrovent Neb 0.5mg/2.5ml) 0.5 mg HHN Q2HRT PRN PRN Reason: Shortness of Breath or Wheeze Stop: 04/30/18 19:14 Mirtazapine (Remeron) 15 mg GT HS ED; Protocol Stop: 04/30/18 20:59 Last Admin: 03/02/18 22:14 Dose: 15 mg Miscellaneous (Glucagon,Human Recombinant [Glucagon Emergency Kit]) 1 mg IJ PRN PRN PRN Reason: HYPOGLYCEMIA Ondansetron HCl (Zofran) 4 mg IV Q8H PRN PRN Reason: Nausea / Vomiting Stop: 04/30/18 19:14 Pantoprazole Sodium (Protonix) 40 mg GT QDAC [facility] Stop: 05/01/18 07:29 Last Admin: 03/03/18 06:34 Dose: 40 mg General: weak HEENT: NC/AT, PERRLA Neck: Supple Lungs: CTAB Cardiovascular: RRR, Normal S1, Normal S2, without murmur Abdomen: soft, non-tender, non-distended, +GT Extremities: excoriation Neurological: unable to follow command - Procedures Procedures: Procedures Procedure Code Date EGD PLACE GASTROSTOMY TUBE 88260 06/21/17 EXCISION OF ASCENDING COLON, ENDO, DIAGN [id number] 06/21/17 EXCISION OF CECUM, ENDO, DIAGN 9HWN2IT 06/21/17 EXCISION OF SIGMOID COLON, ENDO, DIAGN 7UXF1MW 06/21/17 EXCISION OF STOMACH, ENDO, DIAGN [id number] 06/21/17 INSERTION OF FEEDING DEVICE INTO STOMACH, PERC APPROACH [id number] 06/21/17 INSERTION OF INFUSION DEV INTO SUP VENA CAVA, PERC APPROACH 52NQ18P 06/21/17 INTRODUCTION OF NUTRITIONAL INTO CENTRAL VEIN, PERC APPROACH 9Z0991G 06/21/17 PARTIAL REMOVAL OF COLON 56237 06/21/17 RESECTION OF RIGHT LARGE INTESTINE, OPEN APPROACH 5WRX1KG 06/21/17 RESPIRATORY VENTILATION, LESS THAN 24 CONSECUTIVE HOURS 7F8391V 06/21/17 TRANSFUSE NONAUT RED BLOOD CELLS IN PERIPH VEIN, PERC 85332Z7 02/01/18 Internal Medicine Assmt/Plan - Assessment Assessment: acute uti with e.coli esbl acute renal insufficiency htn dm dyslipidemia hx chf - Plan Plan: switch iv merrem dc rocephin stool ob transfuse 1 unit prbc follow up lab in am continue ivf for hydration continue current plan of care Nutritional Asmnt/Malnutr-PDOC - Dietary Evaluation Malnutrition Findings (Please click <Entered> for more info): Nutritional Asmnt/Malnutrition Start: 03/02/18 15: 08 Text: Status: Complete Freq: Protocol: Document 03/02/18 15:08 JUSTO (Rec: 03/02/18 15:54 JUSTO [email or web address]) Nutritional Asmnt/Malnutrition Patient General Information Nutritional Screening High Risk Consult Diagnosis UTI Pertinent Medical Hx/Surgical Hx DM, HTN, dyslipidemia, ESRD, dementia Subjective Information Pt sleeping in bed at time of visit. Pt chart shows at care facility TF regimen of Glucerna 1.2 w/ 77 ml x 1 hr, then 80 ml x 20 hrs which provides 1920 kcals and 100 g protein. Received consult for diabetes and wound. RD spoke w / RN regarding potential formula change to glucerna, but RN states MD wants to continue Nepro. Current Diet Order/ Nutrition Support nepro: 77 ml/hr x 1 hr then 80 ml x 20 hrs Pertinent Medications Vit C, novolog, zofran, remeron, protonix, Nacl 0.45% Pertinent Labs 03/02: glucose 315, Na 160, BUN 171, Cr 2.1, POC 256-262 03/01: glucose 182, Na 160, BUN 178, Cr 2.3, POC 164, Alb 3.1 Nutritional Hx/Data Height 5 ft 3 in Height (Calculated Centimeters) 160.0 Current Weight (lbs) 107 lb Weight (Calculated Kilograms) 48.5 Weight (Calculated Grams) 92040.4 [place] Body Weight 115 Body Mass Index (BMI) 18.9 Weight Status Approriate GI Symptoms GI Symptoms None Last BM 03/02 Difficult in: None Skin Integrity/Comment: stage 3 pressure ulcer to Sacral-Coccygeal/Buttocks areas, Unstageable pressure ulcer to Left ear, Stage IV pressure ulcer to Right ear. 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 Problem Problem Excessive intake from enteral infusion Etiology current TF regimen providing 3019 kcals and 135 g protein Signs/Symptoms: TF meeting 200% of pt's kcal needs and >180% protein needs 1. Problem Problem Altered nutrition related lab values Etiology ESRD and DM Signs/Symptoms: glucose 315, Na 160, BUN 171, Cr 2.1, POC 256-262 Malnutrition Alert Is there a minimum of two criteria No selected? Query Text:Check all the applicable criteria. A minimum of two criteria are recommended for diagnosis of either severe or non-severe malnutrition. Malnutrition Related to Morbid Obesity Malnutrition related to morbid obesity No Intervention/Recommendation Comments 1. Recommend decreasing rate of TF regimen to 45 ml/hr x 20 hrs to avoid overfeeding pt. This provides 1080 ml total volume, 1620 kcals, and 73 g protein, meeting 100% of estemated nutritional needs. 2. Add Amrit 1pkg BID via Gtube for wound healing. 3. MD to adjust insulin for optimal glycemic control. 4. Monitor TF rate, tolerance, wt, skin integrity and renal and glucose labs 5. F/U as high risk in 2-3 days, 03/04-03/05 Expected Outcomes/Goals Expected Outcomes/Goals 1. Pt to meet at least 75% of nutritional needs via nutrition support with tolerance 2. Wt stability, skin to remain intact, renal and glucose labs to approach WNL. Reviewed by Luisa Pillai
[2018-03-03] MEDS ORDERED: Potassium Chloride 20 mEq ER Tab PO ONE (12:56)
[2018-03-03 13:09] LABS: % BASOPHILS 0.8 % (0.0-2.0); % EOSINOPHILS 2.7 % (0.0-5.0); % LYMPHOCYTES 16.5 % (20.0-50.0); % MONOCYTES 7.9 % (2.0-10.0); % NEUTROPHILS 72.1 % (40.0-80.0); BASOPHILE ABSOLUTE 0.1 Th/cumm (0-0.2); EOSINOPHILE ABSOLUTE 0.3 Th/cmm (0.1-0.4); HEMATOCRIT 21.4 % (41.0-60); LYMPHOCYTE ABSOLUTE 1.9 Th/cmm (1.5-3.0); MEAN CELL VOLUME 84.1 fl (81-100); MEAN CORPUSCULAR HEMOGLOBIN 27.4 pg (27.0-31.0); MEAN CORPUSCULAR HGB CONC 32.6 pg (28.0-36.0); MEAN PLATELET VOLUME 10.4 fl; MONOCYTE ABSOLUTE 0.9 Th/cmm (0.3-1.0); NEUTROPHILE ABSOLUTE 8.2 Th/cmm (1.8-8.0); PLATELET COUNT 358 Th/cmm (150-400); RED BLOOD COUNT 2.54 Mil/cmm (3.80-5.20); RED CELL DISTRIBUTION WIDTH 15.7 % (11.5-20.0); WHITE BLOOD COUNT 11.4 Th/cmm (4.8-10.8)
[2018-03-03] MEDS: Meropenem 500 MG in Sodium Chloride 0.9% 100 ML IV SCH (16:46)
[2018-03-04] MEDS: Meropenem 500 MG in Sodium Chloride 0.9% 100 ML IV SCH ×2 (01:40→12:13)
[2018-03-04] MEDS: INSULIN ASPART, RECOMBINANT 100 UNITS/ML SUBQ SCH ×3 (05:56→17:51)
[2018-03-04 05:58] LABS: % BASOPHILS 0.9 % (0.0-2.0); % EOSINOPHILS 3.2 % (0.0-5.0); % LYMPHOCYTES 20.2 % (20.0-50.0); % MONOCYTES 6.5 % (2.0-10.0); % NEUTROPHILS 69.2 % (40.0-80.0); BASOPHILE ABSOLUTE 0.1 Th/cumm (0-0.2); EOSINOPHILE ABSOLUTE 0.4 Th/cmm (0.1-0.4); HEMATOCRIT 26.5 % (41.0-60); HEMOGLOBIN 8.9 gm/dL (12-16); LYMPHOCYTE ABSOLUTE 2.4 Th/cmm (1.5-3.0); MEAN CELL VOLUME 84.4 fl (81-100); MEAN CORPUSCULAR HEMOGLOBIN 28.4 pg (27.0-31.0); MEAN CORPUSCULAR HGB CONC 33.6 pg (28.0-36.0); MEAN PLATELET VOLUME 9.7 fl; MONOCYTE ABSOLUTE 0.8 Th/cmm (0.3-1.0); PLATELET COUNT 319 Th/cmm (150-400); RED BLOOD COUNT 3.14 Mil/cmm (3.80-5.20); RED CELL DISTRIBUTION WIDTH 15.1 % (11.5-20.0); WHITE BLOOD COUNT 11.7 Th/cmm (4.8-10.8)
[2018-03-04 06:16] LABS: CALCIUM SERUM 9.1 mg/dL (8.6-10.3); CARBON DIOXIDE 39.2 mEq/L (21.0-31.0); CHLORIDE 107 mEq/L (98-107); CREATININE - SERUM 1.7 mg/dL (0.6-1.2); GLUCOSE 188 mg/dL (70-105); POTASSIUM SERUM 3.2 mEq/L (3.5-5.1); SODIUM SERUM 153 mEq/L (136-145)
[2018-03-04] MEDS: Pantoprazole 40 mg/Packet GT SCH (06:34)
[2018-03-04 07:30] LABS: BUN - UREA NITROGEN 146 mg/dL (7-25)
[2018-03-04] MEDS: Multivitamin w/ Minerals Tab GT SCH (09:11)
[2018-03-04] MEDS: Venelex 60gm Tube TP SCH (09:12)
[2018-03-04] MEDS ORDERED: Potassium Chloride Elixir 20 mEq /15 mL UDC GT ONE (11:58)
[2018-03-04] MEDS: Sodium Chloride 0.45% 1,000 ML IV SCH (12:37)
--- NOTE | 2018-03-04 14:58 | Internal Medicine Prog Note ---
Internal Medicine Subjective - Subjective Service Date: 03/04/18 Patient is:: awake, non-verbal Per staff patient has:: tolerating meds Internal Medicine Objective - Results Result Diagrams: 03/04/18 05:50 03/04/18 05:50 Recent Labs: Laboratory Last Values WBC 11.7 Th/cmm (4.8-10.8) H 03/04/18 05:50 Corrected WBC (auto) Th/cmm (4.8-10.8) 03/04/18 05:50 RBC 3.14 Mil/cmm (3.80-5.20) L 03/04/18 05:50 Hgb 8.9 gm/dL (12-16) L 03/04/18 05:50 Hct 26.5 % (41.0-60) L D 03/04/18 05:50 MCV 84.4 fl (81-100) 03/04/18 05:50 MCH 28.4 pg (27.0-31.0) 03/04/18 05:50 MCHC Differential 33.6 pg (28.0-36.0) 03/04/18 05:50 RDW 15.1 % (11.5-20.0) 03/04/18 05:50 Plt Count 319 Th/cmm (150-400) 03/04/18 05:50 MPV 9.7 fl 03/04/18 05:50 Neutrophils % 69.2 % (40.0-80.0) 03/04/18 05:50 Lymphocytes % 20.2 % (20.0-50.0) 03/04/18 05:50 Monocytes % 6.5 % (2.0-10.0) 03/04/18 05:50 Eosinophils % 3.2 % (0.0-5.0) 03/04/18 05:50 Basophils % 0.9 % (0.0-2.0) 03/04/18 05:50 PT 9.8 SECONDS (9.5-11.5) 03/01/18 17:00 INR 0.94 (0.5-1.4) 03/01/18 17:00 PTT (Actin FS) 22.2 SECONDS (26.0-38.0) L 03/01/18 17:00 Sodium 153 mEq/L (136-145) H 03/04/18 05:50 Potassium 3.2 mEq/L (3.5-5.1) L 03/04/18 05:50 Chloride 107 mEq/L (98-107) 03/04/18 05:50 Carbon Dioxide 39.2 mEq/L (21.0-31.0) H 03/04/18 05:50 Anion Gap 10.0 (7.0-16.0) 03/04/18 05:50 BUN 146 mg/dL (7-25) H* 03/04/18 05:50 Creatinine 1.7 mg/dL (0.6-1.2) H 03/04/18 05:50 Est GFR ( Amer) TNP 03/04/18 05:50 Est GFR (Non-Af Amer) TNP 03/04/18 05:50 BUN/Creatinine Ratio 85.9 03/04/18 05:50 Glucose 188 mg/dL (70-105) H 03/04/18 05:50 POC Glucose 187 MG/DL (70 - 105) H 03/04/18 11:43 Whole Bld Lactic Acid 1.20 mmol/L (0.60-1.99) 03/01/18 17:00 Calcium 9.1 mg/dL (8.6-10.3) 03/04/18 05:50 Magnesium 3.1 mg/dL (1.9-2.7) H 03/03/18 05:50 Total Bilirubin 0.2 mg/dL (0.3-1.0) L 03/03/18 05:50 AST 22 U/L (13-39) 03/03/18 05:50 ALT 24 U/L (7-52) 03/03/18 05:50 Alkaline Phosphatase 67 U/L (34-104) 03/03/18 05:50 Ammonia 73 umol/L (16-53) H 03/03/18 05:50 Creatine Kinase 176 U/L (30-223) 03/01/18 17:00 Troponin I 0.06 ng/mL (0.01-0.05) H D 03/01/18 17:00 B-Natriuretic Peptide 175.0 pg/mL (5.0-100.0) H 03/03/18 05:50 Total Protein 6.4 gm/dL (6.0-8.3) 03/03/18 05:50 Albumin 2.6 gm/dL (3.7-5.3) L 03/03/18 05:50 Globulin 3.8 gm/dL 03/03/18 05:50 Albumin/Globulin Ratio 0.7 (1.0-1.8) L 03/03/18 05:50 Amylase 48 U/L (29-103) 03/01/18 17:00 Lipase 44 U/L (11-82) 03/01/18 17:00 Vitamin B12 1179 pg/mL (232-1245) 03/02/18 05:45 Folic Acid >20.0 ng/mL (>3.0) 03/02/18 05:45 TSH 1.34 uIU/ml (0.34-5.60) 03/02/18 05:45 Urine Source MIDSTREAM 03/01/18 17:53 Urine Color YELLOW 03/01/18 17:53 Urine Clarity HAZY (CLEAR) 03/01/18 17:53 Urine pH 8.0 (4.6 - 8.0) 03/01/18 17:53 Ur Specific [place] 1.010 (1.005-1.030) 03/01/18 17:53 Urine Protein 30 mg/dL (NEGATIVE) H 03/01/18 17:53 Urine Glucose (UA) NEGATIVE mg/dL (NEGATIVE) 03/01/18 17:53 Urine Ketones NEGATIVE mg/dL (NEGATIVE) 03/01/18 17:53 Urine Blood TRACE (NEGATIVE) 03/01/18 17:53 Urine Nitrate NEGATIVE (NEGATIVE) 03/01/18 17:53 Urine Bilirubin NEGATIVE (NEGATIVE) 03/01/18 17:53 Urine Urobilinogen 0.2 E.U./dL (0.2 - 1.0) 03/01/18 17:53 Ur Leukocyte Esterase LARGE (NEGATIVE) H 03/01/18 17:53 Urine RBC 2-5 /hpf (0-5) 03/01/18 17:53 Urine WBC 10-25 /hpf (0-5) H 03/01/18 17:53 Ur Epithelial Cells MANY /lpf (FEW) 03/01/18 17:53 Urine Bacteria 3+ /hpf (NONE SEEN) H 03/01/18 17:53 Stool Occult Blood NEGATIVE (NEGATIVE) 03/03/18 16:20 Blood Type O POSITIVE 03/03/18 13:00 Antibody Screen NEGATIVE 03/03/18 13:00 Crossmatch See Detail 03/03/18 13:00 - Physical Exam Vitals and I&O: Vital Signs Temp 97.0 F 03/04/18 11:41 Pulse 69 03/04/18 11:41 Resp 20 03/04/18 14:07 BP 138/70 03/04/18 11:41 Pulse Ox 100 03/04/18 11:41 Intake & Output 03/03/18 03/04/18 03/04/18 18:59 06:59 18:59 Intake Total 1100 1960 Balance 1100 1960 Weight (lbs) 122 lb 2 oz Intake: Intake, IV Amount 1100 1100 Meropenem 500 mg In 100 100 Sodium Chloride 0.9% 100 ml @ 100 mls/hr IV Q12H [facility] Rx#:[id number] Sodium Chloride 0.45% 1, 1000 1000 000 ml @ 100 mls/hr IV . Q10H [facility] Rx#:[id number] Tube Feeding 360 Other 500 Other: # Voids 23 # Bowel Movements 1 Stool Characteristics Formed Soft Brown Brown Weight Source Bedscale Active Medications: Current Medications Acetaminophen (Tylenol) 650 mg PO Q4H PRN PRN Reason: Pain Or Fever above 101 Stop: 04/30/18 19:14 Last Admin: 03/04/18 01:08 Dose: 650 mg Albuterol Sulfate (Albuterol 2.5mg/3ml Neb Ud) 2.5 mg HHN Q2HRT PRN PRN Reason: Shortness of Breath or Wheeze Stop: 04/30/18 19:14 Amlodipine Besylate (Norvasc) 10 mg GT DAILY ED Stop: 05/01/18 08:59 Last Admin: 03/04/18 09:11 Dose: 10 mg Ascorbic Acid (Vitamin C) 500 mg GT BID ED Stop: 05/01/18 08:59 Last Admin: 03/04/18 09:11 Dose: 500 mg [place] Oil/[place] Balsam/Trypsin (Venelex) 1 appl TP DAILY ED Stop: 05/02/18 08:59 Last Admin: 03/04/18 09:12 Dose: 1 appl Meropenem 500 mg/ Sodium (Chloride) 100 mls @ 100 mls/hr IV Q12H ED Stop: 05/02/18 12:59 Last Admin: 03/04/18 12:13 Dose: 100 mls/hr Sodium Chloride (Nacl 0.45%) 1,000 mls @ 60 mls/hr IV .[id number] [facility] Stop: 05/03/18 14:44 Insulin Aspart (Novolog) 0 units SUBQ Q6HR ED; Protocol Stop: 05/01/18 17:59 Last Admin: 03/04/18 11:52 Dose: Not Given Ipratropium [place] (Atrovent Neb 0.5mg/2.5ml) 0.5 mg HHN Q2HRT PRN PRN Reason: Shortness of Breath or Wheeze Stop: 04/30/18 19:14 Mirtazapine (Remeron) 15 mg GT HS [facility]; Protocol Stop: 04/30/18 20:59 Last Admin: 03/03/18 21:28 Dose: 15 mg Miscellaneous (Glucagon,Human Recombinant [Glucagon Emergency Kit]) 1 mg IJ PRN PRN PRN Reason: HYPOGLYCEMIA Ondansetron HCl (Zofran) 4 mg IV Q8H PRN PRN Reason: Nausea / Vomiting Stop: 04/30/18 19:14 Pantoprazole Sodium (Protonix) 40 mg GT QDAC [facility] Stop: 05/01/18 07:29 Last Admin: 03/04/18 06:34 Dose: 40 mg General: weak HEENT: NC/AT, PERRLA Neck: Supple Lungs: CTAB Cardiovascular: RRR, Normal S1, Normal S2, without murmur Abdomen: soft, non-tender, non-distended, +GT Extremities: excoriation Neurological: unable to follow command - Procedures Procedures: Procedures Procedure Code Date EGD PLACE GASTROSTOMY TUBE 95003 06/21/17 EXCISION OF ASCENDING COLON, ENDO, DIAGN [id number] 06/21/17 EXCISION OF CECUM, ENDO, DIAGN [id number] 06/21/17 EXCISION OF SIGMOID COLON, ENDO, DIAGN 3SHP5YR 06/21/17 EXCISION OF STOMACH, ENDO, DIAGN [id number] 06/21/17 INSERTION OF FEEDING DEVICE INTO STOMACH, PERC APPROACH [id number] 06/21/17 INSERTION OF INFUSION DEV INTO SUP VENA CAVA, PERC APPROACH 48HW77S 06/21/17 INTRODUCTION OF NUTRITIONAL INTO CENTRAL VEIN, PERC APPROACH [id number] 06/21/17 PARTIAL REMOVAL OF COLON 66466 06/21/17 RESECTION OF RIGHT LARGE INTESTINE, OPEN APPROACH [id number] 06/21/17 RESPIRATORY VENTILATION, LESS THAN 24 CONSECUTIVE HOURS [id number] 06/21/17 TRANSFUSE NONAUT RED BLOOD CELLS IN PERIPH VEIN, PERC 80158N1 02/01/18 Internal Medicine Assmt/Plan - Assessment Assessment: acute uti with e.coli esbl acute renal insufficiency htn dm dyslipidemia hx chf - Plan Plan: continue iv merrem decrease ivf to 60 follow up lab in am continue ivf for hydration continue current plan of care Nutritional Asmnt/Malnutr-PDOC - Dietary Evaluation Malnutrition Findings (Please click <Entered> for more info): Nutritional Asmnt/Malnutrition Start: 03/02/18 15: 08 Text: Status: Complete Freq: Protocol: Document 03/02/18 15:08 JUSTO (Rec: 03/02/18 15:54 JUSTO [email or web address]) Nutritional Asmnt/Malnutrition Patient General Information Nutritional Screening High Risk Consult Diagnosis UTI Pertinent Medical Hx/Surgical Hx DM, HTN, dyslipidemia, ESRD, dementia Subjective Information Pt sleeping in bed at time of visit. Pt chart shows at care facility TF regimen of Glucerna 1.2 w/ 77 ml x 1 hr, then 80 ml x 20 hrs which provides 1920 kcals and 100 g protein. Received consult for diabetes and wound. RD spoke w / RN regarding potential formula change to glucerna, but RN states MD wants to continue Nepro. Current Diet Order/ Nutrition Support nepro: 77 ml/hr x 1 hr then 80 ml x 20 hrs Pertinent Medications Vit C, novolog, zofran, remeron, protonix, Nacl 0.45% Pertinent Labs 03/02: glucose 315, Na 160, BUN 171, Cr 2.1, POC 256-262 03/01: glucose 182, Na 160, BUN 178, Cr 2.3, POC 164, Alb 3.1 Nutritional Hx/Data Height 5 ft 3 in Height (Calculated Centimeters) 160.0 Current Weight (lbs) 107 lb Weight (Calculated Kilograms) 48.5 Weight (Calculated Grams) 40183.4 [place] Body Weight 115 Body Mass Index (BMI) 18.9 Weight Status Approriate GI Symptoms GI Symptoms None Last BM 03/02 Difficult in: None Skin Integrity/Comment: stage 3 pressure ulcer to Sacral-Coccygeal/Buttocks areas, Unstageable pressure ulcer to Left ear, Stage IV pressure ulcer to Right ear. 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 Problem Problem Excessive intake from enteral infusion Etiology current TF regimen providing 3019 kcals and 135 g protein Signs/Symptoms: TF meeting 200% of pt's kcal needs and >180% protein needs 1. Problem Problem Altered nutrition related lab values Etiology ESRD and DM Signs/Symptoms: glucose 315, Na 160, BUN 171, Cr 2.1, POC 256-262 Malnutrition Alert Is there a minimum of two criteria No selected? Query Text:Check all the applicable criteria. A minimum of two criteria are recommended for diagnosis of either severe or non-severe malnutrition. Malnutrition Related to Morbid Obesity Malnutrition related to morbid obesity No Intervention/Recommendation Comments 1. Recommend decreasing rate of TF regimen to 45 ml/hr x 20 hrs to avoid overfeeding pt. This provides 1080 ml total volume, 1620 kcals, and 73 g protein, meeting 100% of estemated nutritional needs. 2. Add Amrit 1pkg BID via Gtube for wound healing. 3. MD to adjust insulin for optimal glycemic control. 4. Monitor TF rate, tolerance, wt, skin integrity and renal and glucose labs 5. F/U as high risk in 2-3 days, 03/04-03/05 Expected Outcomes/Goals Expected Outcomes/Goals 1. Pt to meet at least 75% of nutritional needs via nutrition support with tolerance 2. Wt stability, skin to remain intact, renal and glucose labs to approach WNL. Reviewed by Luisa Pillai
[2018-03-05] MEDS: INSULIN ASPART, RECOMBINANT 100 UNITS/ML SUBQ SCH ×4 (00:09→18:36)
[2018-03-05] MEDS: Meropenem 500 MG in Sodium Chloride 0.9% 100 ML IV SCH ×2 (01:13→12:29)
[2018-03-05] MEDS: Sodium Chloride 0.45% 1,000 ML IV SCH ×2 (05:19→16:31)
[2018-03-05 05:38] LABS: % BASOPHILS 0.5 % (0.0-2.0); % EOSINOPHILS 3.4 % (0.0-5.0); % LYMPHOCYTES 14.9 % (20.0-50.0); % MONOCYTES 6.4 % (2.0-10.0); % NEUTROPHILS 74.8 % (40.0-80.0); BASOPHILE ABSOLUTE 0.1 Th/cumm (0-0.2); EOSINOPHILE ABSOLUTE 0.4 Th/cmm (0.1-0.4); HEMATOCRIT 28.1 % (41.0-60); HEMOGLOBIN 9.1 gm/dL (12-16); LYMPHOCYTE ABSOLUTE 1.7 Th/cmm (1.5-3.0); MEAN CELL VOLUME 84.8 fl (81-100); MEAN CORPUSCULAR HEMOGLOBIN 27.6 pg (27.0-31.0); MEAN CORPUSCULAR HGB CONC 32.5 pg (28.0-36.0); MONOCYTE ABSOLUTE 0.7 Th/cmm (0.3-1.0); NEUTROPHILE ABSOLUTE 8.4 Th/cmm (1.8-8.0); PLATELET COUNT 301 Th/cmm (150-400); RED BLOOD COUNT 3.32 Mil/cmm (3.80-5.20); RED CELL DISTRIBUTION WIDTH 15.4 % (11.5-20.0); WHITE BLOOD COUNT 11.3 Th/cmm (4.8-10.8)
[2018-03-05 06:01] LABS: ANION GAP 10.8 (7.0-16.0); CALCIUM SERUM 9.4 mg/dL (8.6-10.3); CARBON DIOXIDE 36.5 mEq/L (21.0-31.0); CHLORIDE 110 mEq/L (98-107); CREATININE - SERUM 1.5 mg/dL (0.6-1.2); GLUCOSE 196 mg/dL (70-105); POTASSIUM SERUM 3.3 mEq/L (3.5-5.1); SODIUM SERUM 154 mEq/L (136-145)
[2018-03-05 06:24] LABS: BUN - UREA NITROGEN 125 mg/dL (7-25)
[2018-03-05] MEDS: Pantoprazole 40 mg/Packet GT SCH (06:34)
[2018-03-05] MEDS: Multivitamin w/ Minerals Tab GT SCH (09:32)
[2018-03-05] MEDS: Venelex 60gm Tube TP SCH (09:33)
[2018-03-05] MEDS ORDERED: Potassium Chloride 20 mEq ER Tab PO ONE (12:00)
[2018-03-05] MEDS ORDERED: Probiotic Screen MC PRN (14:42)
--- NOTE | 2018-03-05 15:14 | Internal Medicine Prog Note ---
Internal Medicine Subjective - Subjective Service Date: 03/05/18 Patient is:: awake, non-verbal Per staff patient has:: tolerating meds Internal Medicine Objective - Results Result Diagrams: 03/05/18 05:20 03/05/18 05:20 Recent Labs: Laboratory Last Values WBC 11.3 Th/cmm (4.8-10.8) H 03/05/18 05:20 Corrected WBC (auto) Th/cmm (4.8-10.8) 03/04/18 05:50 RBC 3.32 Mil/cmm (3.80-5.20) L 03/05/18 05:20 Hgb 9.1 gm/dL (12-16) L 03/05/18 05:20 Hct 28.1 % (41.0-60) L 03/05/18 05:20 MCV 84.8 fl (81-100) 03/05/18 05:20 MCH 27.6 pg (27.0-31.0) 03/05/18 05:20 MCHC Differential 32.5 pg (28.0-36.0) 03/05/18 05:20 RDW 15.4 % (11.5-20.0) 03/05/18 05:20 Plt Count 301 Th/cmm (150-400) 03/05/18 05:20 MPV 10.0 fl 03/05/18 05:20 Neutrophils % 74.8 % (40.0-80.0) 03/05/18 05:20 Lymphocytes % 14.9 % (20.0-50.0) L 03/05/18 05:20 Monocytes % 6.4 % (2.0-10.0) 03/05/18 05:20 Eosinophils % 3.4 % (0.0-5.0) 03/05/18 05:20 Basophils % 0.5 % (0.0-2.0) 03/05/18 05:20 PT 9.8 SECONDS (9.5-11.5) 03/01/18 17:00 INR 0.94 (0.5-1.4) 03/01/18 17:00 PTT (Actin FS) 22.2 SECONDS (26.0-38.0) L 03/01/18 17:00 Sodium 154 mEq/L (136-145) H 03/05/18 05:20 Potassium 3.3 mEq/L (3.5-5.1) L 03/05/18 05:20 Chloride 110 mEq/L (98-107) H 03/05/18 05:20 Carbon Dioxide 36.5 mEq/L (21.0-31.0) H 03/05/18 05:20 Anion Gap 10.8 (7.0-16.0) 03/05/18 05:20 BUN 125 mg/dL (7-25) H* 03/05/18 05:20 Creatinine 1.5 mg/dL (0.6-1.2) H 03/05/18 05:20 Est GFR ( Amer) TNP 03/05/18 05:20 Est GFR (Non-Af Amer) TNP 03/05/18 05:20 BUN/Creatinine Ratio 83.3 03/05/18 05:20 Glucose 196 mg/dL (70-105) H 03/05/18 05:20 POC Glucose 203 MG/DL (70 - 105) H 03/05/18 12:03 Whole Bld Lactic Acid 1.20 mmol/L (0.60-1.99) 03/01/18 17:00 Calcium 9.4 mg/dL (8.6-10.3) 03/05/18 05:20 Magnesium 3.1 mg/dL (1.9-2.7) H 03/03/18 05:50 Total Bilirubin 0.2 mg/dL (0.3-1.0) L 03/03/18 05:50 AST 22 U/L (13-39) 03/03/18 05:50 ALT 24 U/L (7-52) 03/03/18 05:50 Alkaline Phosphatase 67 U/L (34-104) 03/03/18 05:50 Ammonia 73 umol/L (16-53) H 03/03/18 05:50 Creatine Kinase 176 U/L (30-223) 03/01/18 17:00 Troponin I 0.06 ng/mL (0.01-0.05) H D 03/01/18 17:00 B-Natriuretic Peptide 175.0 pg/mL (5.0-100.0) H 03/03/18 05:50 Total Protein 6.4 gm/dL (6.0-8.3) 03/03/18 05:50 Albumin 2.6 gm/dL (3.7-5.3) L 03/03/18 05:50 Globulin 3.8 gm/dL 03/03/18 05:50 Albumin/Globulin Ratio 0.7 (1.0-1.8) L 03/03/18 05:50 Amylase 48 U/L (29-103) 03/01/18 17:00 Lipase 44 U/L (11-82) 03/01/18 17:00 Vitamin B12 1179 pg/mL (232-1245) 03/02/18 05:45 Folic Acid >20.0 ng/mL (>3.0) 03/02/18 05:45 TSH 1.34 uIU/ml (0.34-5.60) 03/02/18 05:45 Urine Source MIDSTREAM 03/01/18 17:53 Urine Color YELLOW 03/01/18 17:53 Urine Clarity HAZY (CLEAR) 03/01/18 17:53 Urine pH 8.0 (4.6 - 8.0) 03/01/18 17:53 Ur Specific [place] 1.010 (1.005-1.030) 03/01/18 17:53 Urine Protein 30 mg/dL (NEGATIVE) H 03/01/18 17:53 Urine Glucose (UA) NEGATIVE mg/dL (NEGATIVE) 03/01/18 17:53 Urine Ketones NEGATIVE mg/dL (NEGATIVE) 03/01/18 17:53 Urine Blood TRACE (NEGATIVE) 03/01/18 17:53 Urine Nitrate NEGATIVE (NEGATIVE) 03/01/18 17:53 Urine Bilirubin NEGATIVE (NEGATIVE) 03/01/18 17:53 Urine Urobilinogen 0.2 E.U./dL (0.2 - 1.0) 03/01/18 17:53 Ur Leukocyte Esterase LARGE (NEGATIVE) H 03/01/18 17:53 Urine RBC 2-5 /hpf (0-5) 03/01/18 17:53 Urine WBC 10-25 /hpf (0-5) H 03/01/18 17:53 Ur Epithelial Cells MANY /lpf (FEW) 03/01/18 17:53 Urine Bacteria 3+ /hpf (NONE SEEN) H 03/01/18 17:53 Stool Occult Blood NEGATIVE (NEGATIVE) 10/05/18 16:20 Blood Type O POSITIVE 03/03/18 13:00 Antibody Screen NEGATIVE 03/03/18 13:00 Crossmatch See Detail 03/03/18 13:00 - Physical Exam Vitals and I&O: Vital Signs Temp 97.7 F 03/05/18 15:11 Pulse 64 03/05/18 15:11 Resp 17 03/05/18 15:11 BP 125/60 03/05/18 15:11 Pulse Ox 99 03/05/18 15:11 Intake & Output 03/04/18 03/05/18 03/05/18 18:59 06:59 18:59 Intake Total 1156 1330 Output Total 50 Balance 1106 1330 Weight (lbs) 122 lb 122 lb 2 oz Intake: Intake, IV Amount 100 100 Meropenem 500 mg In 100 100 Sodium Chloride 0.9% 100 ml @ 100 mls/hr IV Q12H [facility] Rx#:[id number] Tube Feeding 1056 530 Other 700 Output: Other 50 Other: # Voids 3 3 # Bowel Movements 2 2 Stool Characteristics Brown Brown Soft Formed Brown Weight Source Bedscale Bedscale Active Medications: Current Medications Acetaminophen (Tylenol) 650 mg PO Q4H PRN PRN Reason: Pain Or Fever above 101 Stop: 04/30/18 19:14 Last Admin: 03/05/18 09:32 Dose: 650 mg Albuterol Sulfate (Albuterol 2.5mg/3ml Neb Ud) 2.5 mg HHN Q2HRT PRN PRN Reason: Shortness of Breath or Wheeze Stop: 04/30/18 19:14 Amlodipine Besylate (Norvasc) 10 mg GT DAILY ED Stop: 05/01/18 08:59 Last Admin: 03/05/18 09:32 Dose: 10 mg Ascorbic Acid (Vitamin C) 500 mg GT BID ED Stop: 05/01/18 08:59 Last Admin: 03/05/18 09:32 Dose: 500 mg [place] Oil/[place] Balsam/Trypsin (Venelex) 1 appl TP DAILY ED Stop: 05/02/18 08:59 Last Admin: 03/05/18 09:33 Dose: 1 appl Meropenem 500 mg/ Sodium (Chloride) 100 mls @ 100 mls/hr IV Q12H ED Stop: 05/02/18 12:59 Last Admin: 03/05/18 12:29 Dose: 100 mls/hr Sodium Chloride (Nacl 0.45%) 1,000 mls @ 60 mls/hr IV .[id number] [facility] Stop: 05/03/18 14:44 Last Admin: 03/05/18 05:19 Dose: 60 mls/hr Insulin Aspart (Novolog) 0 units SUBQ Q6HR [facility]; Protocol Stop: 05/01/18 17:59 Last Admin: 03/05/18 12:08 Dose: 2 units Ipratropium [place] (Atrovent Neb 0.5mg/2.5ml) 0.5 mg HHN Q2HRT PRN PRN Reason: Shortness of Breath or Wheeze Stop: 04/30/18 19:14 Lactobacillus Rhamnosus (Culturelle 15b) 1 each PO DAILY [facility] Stop: 05/05/18 08:59 Mirtazapine (Remeron) 15 mg GT HS [facility]; Protocol Stop: 04/30/18 20:59 Last Admin: 03/04/18 21:06 Dose: 15 mg Miscellaneous (Glucagon,Human Recombinant [Glucagon Emergency Kit]) 1 mg IJ PRN PRN PRN Reason: HYPOGLYCEMIA Miscellaneous (Probiotic Screen) 1 ea MC PRN PRN PRN Reason: PROTOCOL Stop: 05/04/18 14:41 Ondansetron HCl (Zofran) 4 mg IV Q8H PRN PRN Reason: Nausea / Vomiting Stop: 04/30/18 19:14 Pantoprazole Sodium (Protonix) 40 mg GT QDAC [facility] Stop: 05/01/18 07:29 Last Admin: 03/05/18 06:34 Dose: 40 mg General: weak HEENT: NC/AT, PERRLA Neck: Supple Lungs: CTAB Cardiovascular: RRR, Normal S1, Normal S2, without murmur Abdomen: soft, non-tender, non-distended, +GT Extremities: excoriation Neurological: unable to follow command - Procedures Procedures: Procedures Procedure Code Date EGD PLACE GASTROSTOMY TUBE 94824 06/21/17 EXCISION OF ASCENDING COLON, ENDO, DIAGN [id number] 06/21/17 EXCISION OF CECUM, ENDO, DIAGN [id number] 06/21/17 EXCISION OF SIGMOID COLON, ENDO, DIAGN [id number] 06/21/17 EXCISION OF STOMACH, ENDO, DIAGN [id number] 06/21/17 INSERTION OF FEEDING DEVICE INTO STOMACH, PERC APPROACH [id number] 06/21/17 INSERTION OF INFUSION DEV INTO SUP VENA CAVA, PERC APPROACH 83VC73T 06/21/17 INTRODUCTION OF NUTRITIONAL INTO CENTRAL VEIN, PERC APPROACH 5K4813Y 06/21/17 PARTIAL REMOVAL OF COLON 47104 06/21/17 RESECTION OF RIGHT LARGE INTESTINE, OPEN APPROACH 8GCI5GJ 06/21/17 RESPIRATORY VENTILATION, LESS THAN 24 CONSECUTIVE HOURS 1X8346H 06/21/17 TRANSFUSE NONAUT RED BLOOD CELLS IN PERIPH VEIN, PERC 94344X3 02/01/18 Internal Medicine Assmt/Plan - Assessment Assessment: acute uti with e.coli esbl acute renal insufficiency htn dm dyslipidemia hx chf - Plan Plan: continue iv merrem follow up lab in am continue ivf for hydration continue current plan of care Nutritional Asmnt/Malnutr-PDOC - Dietary Evaluation Malnutrition Findings (Please click <Entered> for more info): Nutritional Asmnt/Malnutrition Start: 03/02/18 15: 08 Text: Status: Complete Freq: Protocol: Document 03/02/18 15:08 JUSTO (Rec: 03/02/18 15:54 JUSTO XIONG) Nutritional Asmnt/Malnutrition Patient General Information Nutritional Screening High Risk Consult Diagnosis UTI Pertinent Medical Hx/Surgical Hx DM, HTN, dyslipidemia, ESRD, dementia Subjective Information Pt sleeping in bed at time of visit. Pt chart shows at care facility TF regimen of Glucerna 1.2 w/ 77 ml x 1 hr, then 80 ml x 20 hrs which provides 1920 kcals and 100 g protein. Received consult for diabetes and wound. RD spoke w / RN regarding potential formula change to glucerna, but RN states MD wants to continue Nepro. Current Diet Order/ Nutrition Support nepro: 77 ml/hr x 1 hr then 80 ml x 20 hrs Pertinent Medications Vit C, novolog, zofran, remeron, protonix, Nacl 0.45% Pertinent Labs 03/02: glucose 315, Na 160, BUN 171, Cr 2.1, POC 256-262 03/01: glucose 182, Na 160, BUN 178, Cr 2.3, POC 164, Alb 3.1 Nutritional Hx/Data Height 5 ft 3 in Height (Calculated Centimeters) 160.0 Current Weight (lbs) 107 lb Weight (Calculated Kilograms) 48.5 Weight (Calculated Grams) 09125.4 [place] Body Weight 115 Body Mass Index (BMI) 18.9 Weight Status Approriate GI Symptoms GI Symptoms None Last BM 03/02 Difficult in: None Skin Integrity/Comment: stage 3 pressure ulcer to Sacral-Coccygeal/Buttocks areas, Unstageable pressure ulcer to Left ear, Stage IV pressure ulcer to Right ear. 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 Problem Problem Excessive intake from enteral infusion Etiology current TF regimen providing 3019 kcals and 135 g protein Signs/Symptoms: TF meeting 200% of pt's kcal needs and >180% protein needs 1. Problem Problem Altered nutrition related lab values Etiology ESRD and DM Signs/Symptoms: glucose 315, Na 160, BUN 171, Cr 2.1, POC 256-262 Malnutrition Alert Is there a minimum of two criteria No selected? Query Text:Check all the applicable criteria. A minimum of two criteria are recommended for diagnosis of either severe or non-severe malnutrition. Malnutrition Related to Morbid Obesity Malnutrition related to morbid obesity No Intervention/Recommendation Comments 1. Recommend decreasing rate of TF regimen to 45 ml/hr x 20 hrs to avoid overfeeding pt. This provides 1080 ml total volume, 1620 kcals, and 73 g protein, meeting 100% of estemated nutritional needs. 2. Add Amrit 1pkg BID via Gtube for wound healing. 3. MD to adjust insulin for optimal glycemic control. 4. Monitor TF rate, tolerance, wt, skin integrity and renal and glucose labs 5. F/U as high risk in 2-3 days, 03/04-03/05 Expected Outcomes/Goals Expected Outcomes/Goals 1. Pt to meet at least 75% of nutritional needs via nutrition support with tolerance 2. Wt stability, skin to remain intact, renal and glucose labs to approach WNL. Reviewed by Luisa Pillai
[2018-03-06] MEDS: Meropenem 500 MG in Sodium Chloride 0.9% 100 ML IV SCH ×2 (00:24→12:27)
[2018-03-06] MEDS: INSULIN ASPART, RECOMBINANT 100 UNITS/ML SUBQ SCH ×4 (00:35→17:15)
[2018-03-06] MEDS: Pantoprazole 40 mg/Packet GT SCH (06:40)
[2018-03-06 06:46] LABS: % BASOPHILS 0.3 % (0.0-2.0); % MONOCYTES 5.6 % (2.0-10.0); % NEUTROPHILS 78.1 % (40.0-80.0); EOSINOPHILE ABSOLUTE 0.3 Th/cmm (0.1-0.4); HEMATOCRIT 25.1 % (41.0-60); HEMOGLOBIN 8.3 gm/dL (12-16); LYMPHOCYTE ABSOLUTE 1.4 Th/cmm (1.5-3.0); MEAN CELL VOLUME 84.3 fl (81-100); MEAN CORPUSCULAR HEMOGLOBIN 28.1 pg (27.0-31.0); MEAN CORPUSCULAR HGB CONC 33.3 pg (28.0-36.0); MEAN PLATELET VOLUME 10.1 fl; MONOCYTE ABSOLUTE 0.6 Th/cmm (0.3-1.0); NEUTROPHILE ABSOLUTE 8.4 Th/cmm (1.8-8.0); PLATELET COUNT 321 Th/cmm (150-400); RED BLOOD COUNT 2.97 Mil/cmm (3.80-5.20); RED CELL DISTRIBUTION WIDTH 15.2 % (11.5-20.0); WHITE BLOOD COUNT 10.7 Th/cmm (4.8-10.8)
[2018-03-06 07:06] LABS: ANION GAP 9.9 (7.0-16.0); CALCIUM SERUM 9.3 mg/dL (8.6-10.3); CARBON DIOXIDE 35.4 mEq/L (21.0-31.0); CHLORIDE 109 mEq/L (98-107); CREATININE - SERUM 1.4 mg/dL (0.6-1.2); GLUCOSE 218 mg/dL (70-105); POTASSIUM SERUM 3.3 mEq/L (3.5-5.1); SODIUM SERUM 151 mEq/L (136-145)
[2018-03-06 07:37] LABS: BUN - UREA NITROGEN 108 mg/dL (7-25)
[2018-03-06] MEDS: Multivitamin w/ Minerals Tab GT SCH (08:21)
[2018-03-06] MEDS: Lactobacillus Rhamnosus GG 15 Billion CFU CAP.SPRINK PO SCH (08:22)
[2018-03-06] MEDS: Venelex 60gm Tube TP SCH (08:22)
[2018-03-06] MEDS ORDERED: Potassium Chloride 20 mEq ER Tab PO ONE (10:30)
--- NOTE | 2018-03-06 10:31 | Internal Medicine Prog Note ---
Internal Medicine Subjective - Subjective Service Date: 03/06/18 Patient is:: awake, non-verbal Per staff patient has:: tolerating meds Internal Medicine Objective - Results Result Diagrams: 03/06/18 05:55 03/06/18 05:55 Recent Labs: Laboratory Last Values WBC 10.7 Th/cmm (4.8-10.8) 03/06/18 05:55 Corrected WBC (auto) Th/cmm (4.8-10.8) 03/04/18 05:50 RBC 2.97 Mil/cmm (3.80-5.20) L 03/06/18 05:55 Hgb 8.3 gm/dL (12-16) L 03/06/18 05:55 Hct 25.1 % (41.0-60) L 03/06/18 05:55 MCV 84.3 fl (81-100) 03/06/18 05:55 MCH 28.1 pg (27.0-31.0) 03/06/18 05:55 MCHC Differential 33.3 pg (28.0-36.0) 03/06/18 05:55 RDW 15.2 % (11.5-20.0) 03/06/18 05:55 Plt Count 321 Th/cmm (150-400) 03/06/18 05:55 MPV 10.1 fl 03/06/18 05:55 Neutrophils % 78.1 % (40.0-80.0) 03/06/18 05:55 Lymphocytes % 13.0 % (20.0-50.0) L 03/06/18 05:55 Monocytes % 5.6 % (2.0-10.0) 03/06/18 05:55 Eosinophils % 3.0 % (0.0-5.0) 03/06/18 05:55 Basophils % 0.3 % (0.0-2.0) 03/06/18 05:55 PT 9.8 SECONDS (9.5-11.5) 03/01/18 17:00 INR 0.94 (0.5-1.4) 03/01/18 17:00 PTT (Actin FS) 22.2 SECONDS (26.0-38.0) L 03/01/18 17:00 Sodium 151 mEq/L (136-145) H 03/06/18 05:55 Potassium 3.3 mEq/L (3.5-5.1) L 03/06/18 05:55 Chloride 109 mEq/L (98-107) H 03/06/18 05:55 Carbon Dioxide 35.4 mEq/L (21.0-31.0) H 03/06/18 05:55 Anion Gap 9.9 (7.0-16.0) 03/06/18 05:55 BUN 108 mg/dL (7-25) H* 03/06/18 05:55 Creatinine 1.4 mg/dL (0.6-1.2) H 03/06/18 05:55 Est GFR ( Amer) TNP 03/06/18 05:55 Est GFR (Non-Af Amer) TNP 03/06/18 05:55 BUN/Creatinine Ratio 77.1 03/06/18 05:55 Glucose 218 mg/dL (70-105) H 03/06/18 05:55 POC Glucose 211 MG/DL (70 - 105) H 03/06/18 06:42 Whole Bld Lactic Acid 1.20 mmol/L (0.60-1.99) 03/01/18 17:00 Calcium 9.3 mg/dL (8.6-10.3) 03/06/18 05:55 Magnesium 3.1 mg/dL (1.9-2.7) H 03/03/18 05:50 Total Bilirubin 0.2 mg/dL (0.3-1.0) L 03/03/18 05:50 AST 22 U/L (13-39) 03/03/18 05:50 ALT 24 U/L (7-52) 03/03/18 05:50 Alkaline Phosphatase 67 U/L (34-104) 03/03/18 05:50 Ammonia 73 umol/L (16-53) H 03/03/18 05:50 Creatine Kinase 176 U/L (30-223) 03/01/18 17:00 Troponin I 0.06 ng/mL (0.01-0.05) H D 03/01/18 17:00 B-Natriuretic Peptide 175.0 pg/mL (5.0-100.0) H 03/03/18 05:50 Total Protein 6.4 gm/dL (6.0-8.3) 03/03/18 05:50 Albumin 2.6 gm/dL (3.7-5.3) L 03/03/18 05:50 Globulin 3.8 gm/dL 03/03/18 05:50 Albumin/Globulin Ratio 0.7 (1.0-1.8) L 03/03/18 05:50 Amylase 48 U/L (29-103) 03/01/18 17:00 Lipase 44 U/L (11-82) 03/01/18 17:00 Vitamin B12 1179 pg/mL (232-1245) 03/02/18 05:45 Folic Acid >20.0 ng/mL (>3.0) 03/02/18 05:45 TSH 1.34 uIU/ml (0.34-5.60) 03/02/18 05:45 Urine Source MIDSTREAM 03/01/18 17:53 Urine Color YELLOW 03/01/18 17:53 Urine Clarity HAZY (CLEAR) 03/01/18 17:53 Urine pH 8.0 (4.6 - 8.0) 03/01/18 17:53 Ur Specific [place] 1.010 (1.005-1.030) 03/01/18 17:53 Urine Protein 30 mg/dL (NEGATIVE) H 03/01/18 17:53 Urine Glucose (UA) NEGATIVE mg/dL (NEGATIVE) 03/01/18 17:53 Urine Ketones NEGATIVE mg/dL (NEGATIVE) 03/01/18 17:53 Urine Blood TRACE (NEGATIVE) 03/01/18 17:53 Urine Nitrate NEGATIVE (NEGATIVE) 03/01/18 17:53 Urine Bilirubin NEGATIVE (NEGATIVE) 03/01/18 17:53 Urine Urobilinogen 0.2 E.U./dL (0.2 - 1.0) 03/01/18 17:53 Ur Leukocyte Esterase LARGE (NEGATIVE) H 03/01/18 17:53 Urine RBC 2-5 /hpf (0-5) 03/01/18 17:53 Urine WBC 10-25 /hpf (0-5) H 03/01/18 17:53 Ur Epithelial Cells MANY /lpf (FEW) 03/01/18 17:53 Urine Bacteria 3+ /hpf (NONE SEEN) H 03/01/18 17:53 Stool Occult Blood NEGATIVE (NEGATIVE) 03/03/18 16:20 Blood Type O POSITIVE 03/03/18 13:00 Antibody Screen NEGATIVE 03/03/18 13:00 Crossmatch See Detail 03/03/18 13:00 - Physical Exam Vitals and I&O: Vital Signs Temp 98.6 F 03/06/18 08:00 Pulse 80 03/06/18 08:21 Resp 19 03/06/18 08:47 BP 157/69 03/06/18 08:21 Pulse Ox 100 03/06/18 08:00 Intake & Output 03/05/18 03/06/18 03/06/18 18:59 06:59 18:59 Intake Total 1662 940 Balance 1662 940 Weight (lbs) 122 lb 1.6 oz 106 lb 14.4 oz Intake: Intake, IV Amount 772 Meropenem 500 mg In 100 Sodium Chloride 0.9% 100 ml @ 100 mls/hr IV Q12H [facility] Rx#:[id number] Sodium Chloride 0.45% 1, 672 000 ml @ 60 mls/hr IV . [id number] [facility] Rx#:[id number] Oral 0 Tube Feeding 280 540 Other 610 400 Other: # Voids 3 4 # Bowel Movements 1 2 Stool Characteristics Soft Soft Formed Formed Brown Brown Weight Source Bedscale Bedscale Active Medications: Current Medications Acetaminophen (Tylenol) 650 mg PO Q4H PRN PRN Reason: Pain Or Fever above 101 Stop: 04/30/18 19:14 Last Admin: 03/05/18 09:32 Dose: 650 mg Albuterol Sulfate (Albuterol 2.5mg/3ml Neb Ud) 2.5 mg HHN Q2HRT PRN PRN Reason: Shortness of Breath or Wheeze Stop: 04/30/18 19:14 Amlodipine Besylate (Norvasc) 10 mg GT DAILY ED Stop: 05/01/18 08:59 Last Admin: 03/06/18 08:21 Dose: 10 mg Ascorbic Acid (Vitamin C) 500 mg GT BID ED Stop: 05/01/18 08:59 Last Admin: 03/06/18 08:22 Dose: 500 mg [place] Oil/[place] Balsam/Trypsin (Venelex) 1 appl TP DAILY ED Stop: 05/02/18 08:59 Last Admin: 03/06/18 08:22 Dose: 1 appl Meropenem 500 mg/ Sodium (Chloride) 100 mls @ 100 mls/hr IV Q12H ED Stop: 05/02/18 12:59 Last Admin: 03/06/18 00:24 Dose: 100 mls/hr Sodium Chloride (Nacl 0.45%) 1,000 mls @ 60 mls/hr IV .[id number] [facility] Stop: 05/03/18 14:44 Last Admin: 03/05/18 16:31 Dose: 60 mls/hr Insulin Aspart (Novolog) 0 units SUBQ Q6HR ED; Protocol Stop: 05/01/18 17:59 Last Admin: 03/06/18 07:29 Dose: 2 units Ipratropium [place] (Atrovent Neb 0.5mg/2.5ml) 0.5 mg HHN Q2HRT PRN PRN Reason: Shortness of Breath or Wheeze Stop: 04/30/18 19:14 Lactobacillus Rhamnosus (Culturelle 15b) 1 each PO DAILY ED Stop: 05/05/18 08:59 Last Admin: 03/06/18 08:22 Dose: 1 each Mirtazapine (Remeron) 15 mg GT HS ED; Protocol Stop: 04/30/18 20:59 Last Admin: 03/05/18 21:35 Dose: 15 mg Miscellaneous (Glucagon,Human Recombinant [Glucagon Emergency Kit]) 1 mg IJ PRN PRN PRN Reason: HYPOGLYCEMIA Miscellaneous (Probiotic Screen) 1 ea MC PRN PRN PRN Reason: PROTOCOL Stop: 05/04/18 14:41 Ondansetron HCl (Zofran) 4 mg IV Q8H PRN PRN Reason: Nausea / Vomiting Stop: 04/30/18 19:14 Pantoprazole Sodium (Protonix) 40 mg GT QDAC ED Stop: 05/01/18 07:29 Last Admin: 03/06/18 06:40 Dose: 40 mg Potassium Chloride (Klor-Con) 40 meq PO X1 ONE Stop: 03/06/18 10:31 General: weak HEENT: NC/AT, PERRLA Neck: Supple Lungs: CTAB Cardiovascular: RRR, Normal S1, Normal S2, without murmur Abdomen: soft, non-tender, non-distended, +GT Extremities: excoriation Neurological: unable to follow command - Procedures Procedures: Procedures Procedure Code Date EGD PLACE GASTROSTOMY TUBE 16625 06/21/17 EXCISION OF ASCENDING COLON, ENDO, DIAGN [id number] 06/21/17 EXCISION OF CECUM, ENDO, DIAGN [id number] 06/21/17 EXCISION OF SIGMOID COLON, ENDO, DIAGN [id number] 06/21/17 EXCISION OF STOMACH, ENDO, DIAGN [id number] 06/21/17 INSERTION OF FEEDING DEVICE INTO STOMACH, PERC APPROACH [id number] 06/21/17 INSERTION OF INFUSION DEV INTO SUP VENA CAVA, PERC APPROACH [id number] 06/21/17 INTRODUCTION OF NUTRITIONAL INTO CENTRAL VEIN, PERC APPROACH [id number] 06/21/17 PARTIAL REMOVAL OF COLON 94550 06/21/17 RESECTION OF RIGHT LARGE INTESTINE, OPEN APPROACH [id number] 06/21/17 RESPIRATORY VENTILATION, LESS THAN 24 CONSECUTIVE HOURS [id number] 06/21/17 TRANSFUSE NONAUT RED BLOOD CELLS IN PERIPH VEIN, PERC [id number] 02/01/18 Internal Medicine Assmt/Plan - Assessment Assessment: acute uti with e.coli esbl acute renal insufficiency htn dm dyslipidemia hx chf - Plan Plan: continue iv merrem follow up lab in am continue ivf for hydration continue current plan of care Nutritional Asmnt/Malnutr-PDOC - Dietary Evaluation Malnutrition Findings (Please click <Entered> for more info): Nutritional Asmnt/Malnutrition Start: 03/02/18 15: 08 Text: Status: Complete Freq: Protocol: Document 03/02/18 15:08 JUSTO (Rec: 03/02/18 15:54 JUSTO [email or web address]) Nutritional Asmnt/Malnutrition Patient General Information Nutritional Screening High Risk Consult Diagnosis UTI Pertinent Medical Hx/Surgical Hx DM, HTN, dyslipidemia, ESRD, dementia Subjective Information Pt sleeping in bed at time of visit. Pt chart shows at care facility TF regimen of Glucerna 1.2 w/ 77 ml x 1 hr, then 80 ml x 20 hrs which provides 1920 kcals and 100 g protein. Received consult for diabetes and wound. RD spoke w / RN regarding potential formula change to glucerna, but RN states MD wants to continue Nepro. Current Diet Order/ Nutrition Support nepro: 77 ml/hr x 1 hr then 80 ml x 20 hrs Pertinent Medications Vit C, novolog, zofran, remeron, protonix, Nacl 0.45% Pertinent Labs 03/02: glucose 315, Na 160, BUN 171, Cr 2.1, POC 256-262 03/01: glucose 182, Na 160, BUN 178, Cr 2.3, POC 164, Alb 3.1 Nutritional Hx/Data Height 5 ft 3 in Height (Calculated Centimeters) 160.0 Current Weight (lbs) 107 lb Weight (Calculated Kilograms) 48.5 Weight (Calculated Grams) 67367.4 [place] Body Weight 115 Body Mass Index (BMI) 18.9 Weight Status Approriate GI Symptoms GI Symptoms None Last BM 03/02 Difficult in: None Skin Integrity/Comment: stage 3 pressure ulcer to Sacral-Coccygeal/Buttocks areas, Unstageable pressure ulcer to Left ear, Stage IV pressure ulcer to Right ear. 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 Problem Problem Excessive intake from enteral infusion Etiology current TF regimen providing 3019 kcals and 135 g protein Signs/Symptoms: TF meeting 200% of pt's kcal needs and >180% protein needs 1. Problem Problem Altered nutrition related lab values Etiology ESRD and DM Signs/Symptoms: glucose 315, Na 160, BUN 171, Cr 2.1, POC 256-262 Malnutrition Alert Is there a minimum of two criteria No selected? Query Text:Check all the applicable criteria. A minimum of two criteria are recommended for diagnosis of either severe or non-severe malnutrition. Malnutrition Related to Morbid Obesity Malnutrition related to morbid obesity No Intervention/Recommendation Comments 1. Recommend decreasing rate of TF regimen to 45 ml/hr x 20 hrs to avoid overfeeding pt. This provides 1080 ml total volume, 1620 kcals, and 73 g protein, meeting 100% of estemated nutritional needs. 2. Add Amrit 1pkg BID via Gtube for wound healing. 3. MD to adjust insulin for optimal glycemic control. 4. Monitor TF rate, tolerance, wt, skin integrity and renal and glucose labs 5. F/U as high risk in 2-3 days, 03/04-03/05 Expected Outcomes/Goals Expected Outcomes/Goals 1. Pt to meet at least 75% of nutritional needs via nutrition support with tolerance 2. Wt stability, skin to remain intact, renal and glucose labs to approach WNL. Reviewed by Luisa Pillai
[2018-03-06] MEDS: Sodium Chloride 0.45% 1,000 ML IV SCH (23:06)
[2018-03-07] MEDS: INSULIN ASPART, RECOMBINANT 100 UNITS/ML SUBQ SCH ×3 (00:13→12:57)
[2018-03-07] MEDS: Meropenem 500 MG in Sodium Chloride 0.9% 100 ML IV SCH ×2 (00:50→15:46)
[2018-03-07 06:49] LABS: % BASOPHILS 0.2 % (0.0-2.0); % EOSINOPHILS 3.5 % (0.0-5.0); % MONOCYTES 6.1 % (2.0-10.0); % NEUTROPHILS 75.2 % (40.0-80.0); EOSINOPHILE ABSOLUTE 0.4 Th/cmm (0.1-0.4); HEMOGLOBIN 8.5 gm/dL (12-16); LYMPHOCYTE ABSOLUTE 1.5 Th/cmm (1.5-3.0); MEAN CELL VOLUME 86.1 fl (81-100); MEAN CORPUSCULAR HGB CONC 32.5 pg (28.0-36.0); MEAN PLATELET VOLUME 10.3 fl; MONOCYTE ABSOLUTE 0.6 Th/cmm (0.3-1.0); NEUTROPHILE ABSOLUTE 7.8 Th/cmm (1.8-8.0); PLATELET COUNT 304 Th/cmm (150-400); RED BLOOD COUNT 3.02 Mil/cmm (3.80-5.20); RED CELL DISTRIBUTION WIDTH 15.2 % (11.5-20.0); WHITE BLOOD COUNT 10.3 Th/cmm (4.8-10.8)
[2018-03-07 07:18] LABS: ANION GAP 8.6 (7.0-16.0); CALCIUM SERUM 9.3 mg/dL (8.6-10.3); CARBON DIOXIDE 34.9 mEq/L (21.0-31.0); CHLORIDE 111 mEq/L (98-107); CREATININE - SERUM 1.3 mg/dL (0.6-1.2); GLUCOSE 197 mg/dL (70-105); POTASSIUM SERUM 3.5 mEq/L (3.5-5.1); SODIUM SERUM 151 mEq/L (136-145)
[2018-03-07 07:51] LABS: BUN - UREA NITROGEN 87 mg/dL (7-25)
[2018-03-07] MEDS: Multivitamin w/ Minerals Tab GT SCH (10:20)
[2018-03-07] MEDS: Lactobacillus Rhamnosus GG 15 Billion CFU CAP.SPRINK PO SCH (10:21)
--- NOTE | 2018-03-07 11:55 | Internal Medicine Prog Note ---
Internal Medicine Subjective - Subjective Service Date: 03/07/18 (no iso bed available at [facility]) Patient seen and examined:: with staff Patient is:: awake, non-verbal Per staff patient has:: tolerating meds Internal Medicine Objective - Results Result Diagrams: 03/07/18 05:29 03/07/18 05:29 Recent Labs: Laboratory Last Values WBC 10.3 Th/cmm (4.8-10.8) 03/07/18 05:29 Corrected WBC (auto) Th/cmm (4.8-10.8) 03/04/18 05:50 RBC 3.02 Mil/cmm (3.80-5.20) L 03/07/18 05:29 Hgb 8.5 gm/dL (12-16) L 03/07/18 05:29 Hct 26.0 % (41.0-60) L 03/07/18 05:29 MCV 86.1 fl (81-100) 03/07/18 05:29 MCH 28.0 pg (27.0-31.0) 03/07/18 05:29 MCHC Differential 32.5 pg (28.0-36.0) 03/07/18 05:29 RDW 15.2 % (11.5-20.0) 03/07/18 05:29 Plt Count 304 Th/cmm (150-400) 03/07/18 05:29 MPV 10.3 fl 03/07/18 05:29 Neutrophils % 75.2 % (40.0-80.0) 03/07/18 05:29 Lymphocytes % 15.0 % (20.0-50.0) L 03/07/18 05:29 Monocytes % 6.1 % (2.0-10.0) 03/07/18 05:29 Eosinophils % 3.5 % (0.0-5.0) 03/07/18 05:29 Basophils % 0.2 % (0.0-2.0) 03/07/18 05:29 PT 9.8 SECONDS (9.5-11.5) 03/01/18 17:00 INR 0.94 (0.5-1.4) 03/01/18 17:00 PTT (Actin FS) 22.2 SECONDS (26.0-38.0) L 03/01/18 17:00 Sodium 151 mEq/L (136-145) H 03/07/18 05:29 Potassium 3.5 mEq/L (3.5-5.1) 03/07/18 05:29 Chloride 111 mEq/L (98-107) H 03/07/18 05:29 Carbon Dioxide 34.9 mEq/L (21.0-31.0) H 03/07/18 05:29 Anion Gap 8.6 (7.0-16.0) 03/07/18 05:29 BUN 87 mg/dL (7-25) H* 03/07/18 05:29 Creatinine 1.3 mg/dL (0.6-1.2) H 03/07/18 05:29 Est GFR ( Amer) TNP 03/07/18 05:29 Est GFR (Non-Af Amer) TNP 03/07/18 05:29 BUN/Creatinine Ratio 66.9 03/07/18 05:29 Glucose 197 mg/dL (70-105) H 03/07/18 05:29 POC Glucose 179 MG/DL (70 - 105) H 03/07/18 05:46 Whole Bld Lactic Acid 1.20 mmol/L (0.60-1.99) 03/01/18 17:00 Calcium 9.3 mg/dL (8.6-10.3) 03/07/18 05:29 Magnesium 3.1 mg/dL (1.9-2.7) H 03/03/18 05:50 Total Bilirubin 0.2 mg/dL (0.3-1.0) L 03/03/18 05:50 AST 22 U/L (13-39) 03/03/18 05:50 ALT 24 U/L (7-52) 03/03/18 05:50 Alkaline Phosphatase 67 U/L (34-104) 03/03/18 05:50 Ammonia 73 umol/L (16-53) H 03/03/18 05:50 Creatine Kinase 176 U/L (30-223) 03/01/18 17:00 Troponin I 0.06 ng/mL (0.01-0.05) H D 03/01/18 17:00 B-Natriuretic Peptide 175.0 pg/mL (5.0-100.0) H 03/03/18 05:50 Total Protein 6.4 gm/dL (6.0-8.3) 03/03/18 05:50 Albumin 2.6 gm/dL (3.7-5.3) L 03/03/18 05:50 Globulin 3.8 gm/dL 03/03/18 05:50 Albumin/Globulin Ratio 0.7 (1.0-1.8) L 03/03/18 05:50 Amylase 48 U/L (29-103) 03/01/18 17:00 Lipase 44 U/L (11-82) 03/01/18 17:00 Vitamin B12 1179 pg/mL (232-1245) 03/02/18 05:45 Folic Acid >20.0 ng/mL (>3.0) 03/02/18 05:45 TSH 1.34 uIU/ml (0.34-5.60) 03/02/18 05:45 Urine Source MIDSTREAM 03/01/18 17:53 Urine Color YELLOW 03/01/18 17:53 Urine Clarity HAZY (CLEAR) 03/01/18 17:53 Urine pH 8.0 (4.6 - 8.0) 03/01/18 17:53 Ur Specific [place] 1.010 (1.005-1.030) 03/01/18 17:53 Urine Protein 30 mg/dL (NEGATIVE) H 03/01/18 17:53 Urine Glucose (UA) NEGATIVE mg/dL (NEGATIVE) 03/01/18 17:53 Urine Ketones NEGATIVE mg/dL (NEGATIVE) 03/01/18 17:53 Urine Blood TRACE (NEGATIVE) 03/01/18 17:53 Urine Nitrate NEGATIVE (NEGATIVE) 03/01/18 17:53 Urine Bilirubin NEGATIVE (NEGATIVE) 03/01/18 17:53 Urine Urobilinogen 0.2 E.U./dL (0.2 - 1.0) 03/01/18 17:53 Ur Leukocyte Esterase LARGE (NEGATIVE) H 03/01/18 17:53 Urine RBC 2-5 /hpf (0-5) 03/01/18 17:53 Urine WBC 10-25 /hpf (0-5) H 03/01/18 17:53 Ur Epithelial Cells MANY /lpf (FEW) 03/01/18 17:53 Urine Bacteria 3+ /hpf (NONE SEEN) H 03/01/18 17:53 Stool Occult Blood NEGATIVE (NEGATIVE) 03/03/18 16:20 Blood Type O POSITIVE 03/03/18 13:00 Antibody Screen NEGATIVE 03/03/18 13:00 Crossmatch See Detail 03/03/18 13:00 - Physical Exam Vitals and I&O: Vital Signs Temp 97.7 F 03/07/18 08:00 Pulse 79 03/07/18 10:21 Resp 20 03/07/18 08:00 BP 170/78 03/07/18 10:21 Pulse Ox 100 03/07/18 08:00 Intake & Output 03/06/18 03/07/18 03/07/18 18:59 06:59 18:59 Intake Total 1360 100 591 Balance 1360 100 591 Weight (lbs) 106 lb 103 lb 9.6 oz Intake: Intake, IV Amount 1000 100 591 Meropenem 500 mg In 100 Sodium Chloride 0.9% 100 ml @ 100 mls/hr IV Q12H [facility] Rx#:[id number] Sodium Chloride 0.45% 1, 1000 591 000 ml @ 60 mls/hr IV . [id number] [facility] Rx#:[id number] Tube Feeding 360 Other: # Voids 6 2 # Bowel Movements 1 Stool Characteristics Soft Soft Brown Brown Weight Source Bedscale Bedscale Active Medications: Current Medications Acetaminophen (Tylenol) 650 mg PO Q4H PRN PRN Reason: Pain Or Fever above 101 Stop: 04/30/18 19:14 Last Admin: 03/05/18 09:32 Dose: 650 mg Albuterol Sulfate (Albuterol 2.5mg/3ml Neb Ud) 2.5 mg HHN Q2HRT PRN PRN Reason: Shortness of Breath or Wheeze Stop: 04/30/18 19:14 Amlodipine Besylate (Norvasc) 10 mg GT DAILY ED Stop: 05/01/18 08:59 Last Admin: 03/07/18 10:21 Dose: 10 mg Ascorbic Acid (Vitamin C) 500 mg GT BID ED Stop: 05/01/18 08:59 Last Admin: 03/07/18 10:21 Dose: 500 mg [place] Oil/[place] Balsam/Trypsin (Venelex) 1 appl TP DAILY ED Stop: 05/02/18 08:59 Last Admin: 03/06/18 08:22 Dose: 1 appl Meropenem 500 mg/ Sodium (Chloride) 100 mls @ 100 mls/hr IV Q12H ED Stop: 05/02/18 12:59 Last Admin: 03/07/18 00:50 Dose: 100 mls/hr Sodium Chloride (Nacl 0.45%) 1,000 mls @ 60 mls/hr IV .[id number] [facility] Stop: 05/03/18 14:44 Last Infusion: 03/07/18 08:57 Dose: 0 mls/hr Insulin Aspart (Novolog) 0 units SUBQ Q6HR ED; Protocol Stop: 05/01/18 17:59 Last Admin: 03/07/18 06:02 Dose: Not Given Ipratropium [place] (Atrovent Neb 0.5mg/2.5ml) 0.5 mg HHN Q2HRT PRN PRN Reason: Shortness of Breath or Wheeze Stop: 04/30/18 19:14 Lactobacillus Rhamnosus (Culturelle 15b) 1 each PO DAILY ED Stop: 05/05/18 08:59 Last Admin: 03/07/18 10:21 Dose: 1 each Mirtazapine (Remeron) 15 mg GT HS ED; Protocol Stop: 04/30/18 20:59 Last Admin: 03/06/18 22:15 Dose: 15 mg Miscellaneous (Glucagon,Human Recombinant [Glucagon Emergency Kit]) 1 mg IJ PRN PRN PRN Reason: HYPOGLYCEMIA Miscellaneous (Probiotic Screen) 1 ea MC PRN PRN PRN Reason: PROTOCOL Stop: 05/04/18 14:41 Pantoprazole Sodium (Protonix) 40 mg GT QDAC [facility] Stop: 05/01/18 07:29 Last Admin: 03/06/18 06:40 Dose: 40 mg General: weak HEENT: NC/AT, PERRLA Neck: Supple Lungs: CTAB Cardiovascular: RRR, Normal S1, Normal S2, without murmur Abdomen: soft, non-tender, non-distended, +GT Extremities: excoriation Neurological: unable to follow command - Procedures Procedures: Procedures Procedure Code Date EGD PLACE GASTROSTOMY TUBE 81596 06/21/17 EXCISION OF ASCENDING COLON, ENDO, DIAGN [id number] 06/21/17 EXCISION OF CECUM, ENDO, DIAGN [id number] 01/23/18 EXCISION OF SIGMOID COLON, ENDO, DIAGN [id number] 06/21/17 EXCISION OF STOMACH, ENDO, DIAGN [id number] 06/21/17 INSERTION OF FEEDING DEVICE INTO STOMACH, PERC APPROACH [id number] 06/21/17 INSERTION OF INFUSION DEV INTO SUP VENA CAVA, PERC APPROACH [id number] 06/21/17 INTRODUCTION OF NUTRITIONAL INTO CENTRAL VEIN, PERC APPROACH 0O0764E 06/21/17 PARTIAL REMOVAL OF COLON 93617 06/21/17 RESECTION OF RIGHT LARGE INTESTINE, OPEN APPROACH [id number] 06/21/17 RESPIRATORY VENTILATION, LESS THAN 24 CONSECUTIVE HOURS [id number] 06/21/17 TRANSFUSE NONAUT RED BLOOD CELLS IN PERIPH VEIN, PERC 34015F1 02/01/18 Internal Medicine Assmt/Plan - Assessment Assessment: acute uti with e.coli esbl acute renal insufficiency htn dm dyslipidemia hx chf - Plan Plan: dc once bed available continue iv merrem follow up lab in am continue ivf for hydration continue current plan of care Nutritional Asmnt/Malnutr-PDOC - Dietary Evaluation Malnutrition Findings (Please click <Entered> for more info): Nutritional Asmnt/Malnutrition Start: 03/02/18 15: 08 Text: Status: Complete Freq: Protocol: Document 03/02/18 15:08 JUSTO (Rec: 03/02/18 15:54 JUSTO XIONG) Nutritional Asmnt/Malnutrition Patient General Information Nutritional Screening High Risk Consult Diagnosis UTI Pertinent Medical Hx/Surgical Hx DM, HTN, dyslipidemia, ESRD, dementia Subjective Information Pt sleeping in bed at time of visit. Pt chart shows at care facility TF regimen of Glucerna 1.2 w/ 77 ml x 1 hr, then 80 ml x 20 hrs which provides 1920 kcals and 100 g protein. Received consult for diabetes and wound. RD spoke w / RN regarding potential formula change to glucerna, but RN states MD wants to continue Nepro. Current Diet Order/ Nutrition Support nepro: 77 ml/hr x 1 hr then 80 ml x 20 hrs Pertinent Medications Vit C, novolog, zofran, remeron, protonix, Nacl 0.45% Pertinent Labs 03/02: glucose 315, Na 160, BUN 171, Cr 2.1, POC 256-262 03/01: glucose 182, Na 160, BUN 178, Cr 2.3, POC 164, Alb 3.1 Nutritional Hx/Data Height 5 ft 3 in Height (Calculated Centimeters) 160.0 Current Weight (lbs) 107 lb Weight (Calculated Kilograms) 48.5 Weight (Calculated Grams) 49416.4 [place] Body Weight 115 Body Mass Index (BMI) 18.9 Weight Status Approriate GI Symptoms GI Symptoms None Last BM 03/02 Difficult in: None Skin Integrity/Comment: stage 3 pressure ulcer to Sacral-Coccygeal/Buttocks areas, Unstageable pressure ulcer to Left ear, Stage IV pressure ulcer to Right ear. 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 Problem Problem Excessive intake from enteral infusion Etiology current TF regimen providing 3019 kcals and 135 g protein Signs/Symptoms: TF meeting 200% of pt's kcal needs and >180% protein needs 1. Problem Problem Altered nutrition related lab values Etiology ESRD and DM Signs/Symptoms: glucose 315, Na 160, BUN 171, Cr 2.1, POC 256-262 Malnutrition Alert Is there a minimum of two criteria No selected? Query Text:Check all the applicable criteria. A minimum of two criteria are recommended for diagnosis of either severe or non-severe malnutrition. Malnutrition Related to Morbid Obesity Malnutrition related to morbid obesity No Intervention/Recommendation Comments 1. Recommend decreasing rate of TF regimen to 45 ml/hr x 20 hrs to avoid overfeeding pt. This provides 1080 ml total volume, 1620 kcals, and 73 g protein, meeting 100% of estemated nutritional needs. 2. Add Amrit 1pkg BID via Gtube for wound healing. 3. MD to adjust insulin for optimal glycemic control. 4. Monitor TF rate, tolerance, wt, skin integrity and renal and glucose labs 5. F/U as high risk in 2-3 days, 03/04-03/05 Expected Outcomes/Goals Expected Outcomes/Goals 1. Pt to meet at least 75% of nutritional needs via nutrition support with tolerance 2. Wt stability, skin to remain intact, renal and glucose labs to approach WNL. Reviewed by Luisa Pillai
== END 2018-03-07 16:45 | DRG 463 ==
LOC: ER 16:22 → TELE 18:46 → MSI 03-06 15:23
PROVIDERS: ADMIT Internal Medicine; ATTEND Internal Medicine
PROC: 30233N1 Transfusion of Nonautologous Red Blood Cells into Peripheral Vein, Percutaneous Approach (ICD-10-PCS; principal; 2018-03-03)
DX: N39.0 Urinary tract infection, site not specified (principal); E43 Unspecified severe protein-calorie malnutrition; I13.2 Hypertensive heart and chronic kidney disease with heart failure and with stage 5 chronic kidney disease, or end stage renal disease; E87.0 Hyperosmolality and hypernatremia; E11.22 Type 2 diabetes mellitus with diabetic chronic kidney disease; E86.0 Dehydration; N18.6 End stage renal disease; B96.20 Unspecified Escherichia coli [E. coli] as the cause of diseases classified elsewhere; D64.9 Anemia, unspecified; I50.9 Heart failure, unspecified; E78.5 Hyperlipidemia, unspecified; F03.90 Unspecified dementia, unspecified severity, without behavioral disturbance, psychotic disturbance, mood disturbance, and anxiety; R79.89 Other specified abnormal findings of blood chemistry; N28.9 Disorder of kidney and ureter, unspecified; Z16.12 Extended spectrum beta lactamase (ESBL) resistance; Z82.49 Family history of ischemic heart disease and other diseases of the circulatory system
CPT/HCPCS: 36415-UA; 71045-TC; 80048-TC; 80053-TC; 81001-TC; 82140-TC; 82150-TC; 82270-TC; 82550-TC; 82607-90; 82746-90; 82948-90; 83036-90; 83605; 83690-TC; 83735-TC; 83880-TC; 84443-TC; 84484-TC; 85025-TC; 85610-TC; 85730-TC; 86850-TC; 86900-TC; 86901-TC; 86922-TC; 87086-90; 93005; 94760; J0696; J1815; J2185; J7030; P9016; Z7610

== ENCOUNTER 2018-03-16 14:54 | Inpatient (IN) | payer MEDICAID ==
--- NOTE | 2018-03-16 15:18 | ED Physician Chart ---
ED Chief Complaint/HPI - Patient Information Date Seen:: 03/16/18 Time Seen:: 15:05 Chief Complaint:: anemia History of Present Illness:: Patient had a CBC drawn this morning and hemoglobin returned 7. and hematocrit 23.2 Allergies:: Allergies Allergy/AdvReac Type Severity Reaction Status Date / Time No Known Allergies Allergy Verified 02/01/18 21:47 Review:: Transfer documents Reviewed ED Review of Systems - Review of Systems General/Constitutional: No fever, No chills Skin: No skin lesions Head: No headache Eyes: No loss of vision ENT: No earache Neck: No neck pain Cardio Vascular: No chest pain Pulmonary: No SOB GI: No nausea, No vomiting G/U: Dysuria Endocrine: No polyuria, No polydipsia Psychiatric: Prior psych history Hematopoietic: No bruising Allergic/Immuno: No urticaria Neurological: No syncope ED Past Medical History - Past Medical History Past Medical History: HTN, DM, CHF, Dyslipidemia, Dementia, Other (status post urinary tract infection; history of anemia; renal insufficiency) Family History: Other (unavailable) Social History: Care Facility Surgical History: PEG/GTube Psychiatricy History: Dementia Medication: Reviewed Family Medical History - Family Member Mother History Unknown: Yes Ethnicity: Unknown Living Status: Unknown Hx Family Cancer: (UNKNOWN) Hx Family Coronary Artery Disease: (UNKNOWN) Hx Family Congestive Heart Failure: (UNKNOWN) Hx Family Hypertension: (UNKNOWN) Hx Family Stroke: (UNKNOWN) Hx Family Diabetes: (UNKNOWN) Hx Family Seizures: (UNKNOWN) Hx Family Dementia: (UNKNOWN) Hx Family AIDS: (UNKNOWN) Hx Family HIV: No Hx Family COPD: (UNKNOWN) Hx Family Hepatitis: (UNKNOWN) Hx Family Psychiatric Problems: (UNKNOWN) Hx Family Tuberculosis: (UNKNOWN) ED Physical Exam - Physical Examination Other Gen/Cons comments:: Patient is chronically ill-appearing, contractured and nonresponsive. There is a normal sinus rhythm with a rate 84 on the monitor Head: Atraumatic Skin: Nl inspection ENMT: External ears, nose nl Neck: No nuchal rigidity Respiratory: Nl effort/Exclusion, Clear to Auscultation Cardio Vascular: RRR, No murmur, gallop, rubs GI: No tenderness/rebounding/guarding Extremities: Normal digits & nails Other Neuro/Psych comments:: Nonresponsive and contractured ED Labs/Radiology/EKG Results - Lab Results Results: Laboratory Results - last 24 hr 03/16/18 03/16/18 15:19 15:19 WBC 8.8 RBC 2.68 L Hgb 7.3 L* Hct 22.1 L MCV 82.6 MCH 27.3 MCHC Differential 33.1 RDW 15.4 Plt Count 290 MPV 8.7 Neutrophils % 69.2 Lymphocytes % 21.7 Monocytes % 6.6 Eosinophils % 1.9 Basophils % 0.6 Blood Type O POSITIVE Laboratory Results - last 24 hr 03/16/18 03/16/18 03/16/18 15:19 15:19 15:19 WBC 8.8 RBC 2.68 L Hgb 7.3 L* Hct 22.1 L MCV 82.6 MCH 27.3 MCHC Differential 33.1 RDW 15.4 Plt Count 290 MPV 8.7 Neutrophils % 69.2 Lymphocytes % 21.7 Monocytes % 6.6 Eosinophils % 1.9 Basophils % 0.6 Sodium 141 Potassium 3.3 L Chloride 97 L Carbon Dioxide 35.0 H Anion Gap 12.3 BUN 63 H Creatinine 1.1 Est GFR ( Amer) TNP Est GFR (Non-Af Amer) TNP BUN/Creatinine Ratio 57.3 Glucose 145 H Calcium 8.7 Blood Type O POSITIVE ED Assessment - Assessment General Assessment: Patient's anemia is probably due to upper gastrointestinal bleeding since her BUN is 63 and her creatinine 1.1. ED Septic Shock - . Is Septic Shock (SBP<90, OR Lactate>4 mmol\L) present?: No ED Reassessment (Disposition) - Reassessment Reassessment Condition:: Unchanged - Diagnosis Diagnosis:: Anemia; upper GI bleeding; dementia - Patient Disposition Admitted to:: Telemetry Admitting Medical Physician:: Jose Tobias Condition at Disposition:: Stable, Unchanged
[2018-03-16 15:34] LABS: % BASOPHILS 0.6 % (0.0-2.0); % EOSINOPHILS 1.9 % (0.0-5.0); % LYMPHOCYTES 21.7 % (20.0-50.0); % MONOCYTES 6.6 % (2.0-10.0); % NEUTROPHILS 69.2 % (40.0-80.0); BASOPHILE ABSOLUTE 0.1 Th/cumm (0-0.2); EOSINOPHILE ABSOLUTE 0.2 Th/cmm (0.1-0.4); HEMATOCRIT 22.1 % (41.0-60); LYMPHOCYTE ABSOLUTE 1.9 Th/cmm (1.5-3.0); MEAN CELL VOLUME 82.6 fl (81-100); MEAN CORPUSCULAR HEMOGLOBIN 27.3 pg (27.0-31.0); MEAN CORPUSCULAR HGB CONC 33.1 pg (28.0-36.0); MEAN PLATELET VOLUME 8.7 fl; MONOCYTE ABSOLUTE 0.6 Th/cmm (0.3-1.0); PLATELET COUNT 290 Th/cmm (150-400); RED BLOOD COUNT 2.68 Mil/cmm (3.80-5.20); RED CELL DISTRIBUTION WIDTH 15.4 % (11.5-20.0); WHITE BLOOD COUNT 8.8 Th/cmm (4.8-10.8)
[2018-03-16 15:40] LABS: HEMOGLOBIN 7.3 gm/dL (12-16)
[2018-03-16 15:48] LABS: ANION GAP 12.3 (7.0-16.0); BUN - UREA NITROGEN 63 mg/dL (7-25); CALCIUM SERUM 8.7 mg/dL (8.6-10.3); CHLORIDE 97 mEq/L (98-107); CREATININE - SERUM 1.1 mg/dL (0.6-1.2); GLUCOSE 145 mg/dL (70-105); POTASSIUM SERUM 3.3 mEq/L (3.5-5.1); SODIUM SERUM 141 mEq/L (136-145)
[2018-03-16] MEDS ORDERED: Potassium Chloride Elixir 20 mEq /15 mL UDC GT ONE (16:24)
[2018-03-16] MEDS ORDERED: Potassium Chloride Elixir 20 mEq /15 mL UDC ONE (16:30)
[2018-03-16 16:41] LABS: PROTHROMBIN TIME (TEST) 10.4 SECONDS (9.5-11.5)
[2018-03-16] MEDS ORDERED: Ipratropium Neb 0.5 mg/2.5 mL UD HHN PRN (19:56)
[2018-03-16] MEDS ORDERED: Albuterol Nebulizer 2.5mg/3mL HHN PRN (19:56)
[2018-03-16] MEDS ORDERED: guaiFENesin 200 MG/10 ML UDC PO PRN (19:57)
[2018-03-16] MEDS ORDERED: HALOPERIDOL DECANOATE 25 MG IM SCH (20:00)
[2018-03-16] MEDS ORDERED: guaiFENesin 200 MG/10 ML UDC GT PRN (20:25)
[2018-03-16] MEDS: Sodium Chloride 0.9% 1,000 ML IV SCH (21:38)
[2018-03-16] MEDS: INSULIN ASPART, RECOMBINANT 100 UNITS/ML SUBQ SCH (22:01)
[2018-03-17 06:06] LABS: % BASOPHILS 0.8 % (0.0-2.0); % EOSINOPHILS 2.4 % (0.0-5.0); % LYMPHOCYTES 23.5 % (20.0-50.0); % MONOCYTES 6.6 % (2.0-10.0); % NEUTROPHILS 66.7 % (40.0-80.0); BASOPHILE ABSOLUTE 0.1 Th/cumm (0-0.2); EOSINOPHILE ABSOLUTE 0.2 Th/cmm (0.1-0.4); HEMATOCRIT 26.1 % (41.0-60); HEMOGLOBIN 8.5 gm/dL (12-16); LYMPHOCYTE ABSOLUTE 1.6 Th/cmm (1.5-3.0); MEAN CELL VOLUME 86.1 fl (81-100); MEAN CORPUSCULAR HEMOGLOBIN 28.1 pg (27.0-31.0); MEAN CORPUSCULAR HGB CONC 32.7 pg (28.0-36.0); MEAN PLATELET VOLUME 8.9 fl; MONOCYTE ABSOLUTE 0.4 Th/cmm (0.3-1.0); NEUTROPHILE ABSOLUTE 4.5 Th/cmm (1.8-8.0); PLATELET COUNT 270 Th/cmm (150-400); RED BLOOD COUNT 3.03 Mil/cmm (3.80-5.20); RED CELL DISTRIBUTION WIDTH 16.1 % (11.5-20.0)
[2018-03-17 06:10] LABS: WHITE BLOOD COUNT 6.8 Th/cmm (4.8-10.8)
[2018-03-17 06:16] VITALS: BP 179/99
[2018-03-17 06:24] LABS: ALB/GLOB RATIO 0.8 (1.0-1.8); ALBUMIN 2.5 gm/dL (3.7-5.3); ALKALINE PHOSPHATASE 74 U/L (34-104); ANION GAP 11.3 (7.0-16.0); BILIRUBIN,TOTAL 0.3 mg/dL (0.3-1.0); BUN - UREA NITROGEN 56 mg/dL (7-25); CALCIUM SERUM 8.7 mg/dL (8.6-10.3); CARBON DIOXIDE 34.1 mEq/L (21.0-31.0); CHLORIDE 100 mEq/L (98-107); CREATININE - SERUM 1.1 mg/dL (0.6-1.2); GLUCOSE 137 mg/dL (70-105); LDH = LACTIC DEHYDROGENASE 200 U/L (140-271); POTASSIUM SERUM 3.4 mEq/L (3.5-5.1); SGOT 13 U/L (13-39); SGPT/ALT 10 U/L (7-52); SODIUM SERUM 142 mEq/L (136-145); TOTAL PROTEIN,SERUM 5.8 gm/dL (6.0-8.3)
[2018-03-17 08:22] LABS: ABSOLUTE RETICULOCYTE 75.8 Th/cmm; CORRECTED RETICULOCYTE COUNT 1.5 % (0.5-1.5); HEMATOCRIT 26.1 % (37.0-47.0); RBC RETICULOCYTE COUNT 3.03 Mil/cmm; RETICULOCYTES % COUNTED 2.5 % (0.5-1.5)
[2018-03-17] MEDS: INSULIN ASPART, RECOMBINANT 100 UNITS/ML SUBQ SCH ×4 (08:43→20:45)
[2018-03-17] MEDS: Multivitamin w/ Minerals Tab GT SCH (08:49)
[2018-03-17] MEDS ORDERED: Non-Formulary Item 1 EA (Omeprazole [Omeprazole] 40 MG) PO SCH (09:00)
[2018-03-17] MEDS ORDERED: [UNRECOGNIZED DRUG - OTHER] GT SCH (09:00)
[2018-03-17] MEDS ORDERED: ENTERAL NUTRITION FORMULA GT SCH (09:00)
[2018-03-17] MEDS ORDERED: VTE Chemical Prophylaxis Screen/Admission MC PRN (10:06)
[2018-03-17] MEDS ORDERED: Influenza Vaccine (65 yr & older) 0.5 ml Syr IM ONE (10:28)
[2018-03-17] MEDS ORDERED: Pantoprazole 40 mg/Packet GT SCH (12:00)
--- NOTE | 2018-03-17 12:39 | History and Physical ---
History of Present Illness - HPI Chief Complaint: hgb 7.0 HPI: This is a 77-year old female who is admitted from [facility]. Patient had a hgb of 7.0 at the snf, 2 days ago patients hgb 7.6. For further management patient is now admitted to the telemetry unit. Patient was transfused with 1 unit of PRBC. Vital Signs: Last Vital Signs Temp 98.2 F 03/17/18 08:00 Pulse 78 03/17/18 08:49 Resp 20 03/17/18 08:00 BP 166/81 03/17/18 08:49 Pulse Ox 100 03/17/18 08:00 Past Medical History Other History: htn dm dyslipidemia dementia acute renal failure chf - Past Surgical History Past Surgical History: Other (peg) Family Medical History - Family Member Mother History Unknown: Yes Ethnicity: Unknown Living Status: Unknown Hx Family Cancer: (UNKNOWN) Hx Family Coronary Artery Disease: (UNKNOWN) Hx Family Congestive Heart Failure: (UNKNOWN) Hx Family Hypertension: (UNKNOWN) Hx Family Stroke: (UNKNOWN) Hx Family Diabetes: (UNKNOWN) Hx Family Seizures: (UNKNOWN) Hx Family Dementia: (UNKNOWN) Hx Family AIDS: (UNKNOWN) Hx Family HIV: No Hx Family COPD: (UNKNOWN) Hx Family Hepatitis: (UNKNOWN) Hx Family Psychiatric Problems: (UNKNOWN) Hx Family Tuberculosis: (UNKNOWN) Social History Smoke: No Alcohol: None Drugs: None Lives: Long-Term - Medications Home Medications: Home Medication Medication Instructions Recorded Type Aspirin [Aspirin Chewable] 81 mg GT DAILY 03/16/18 History Clonidine HCl [Catapres] 0.1 mg GT DAILY 03/16/18 History Glipizide [Glucotrol Xl] 2.5 mg PO BID 03/16/18 History Haloperidol Decanoate [Haldol 25 mg IM QMONTH 03/16/18 History Decanoate 100] Lancets [Accu-Chek] 1 each MC Q6HR 03/16/18 History Meropenem [Merrem IV] 500 mg IV Q12HR 03/16/18 History Mirtazapine [Remeron] 15 mg GT HS 03/16/18 History Multivitamin with Minerals 1 tab GT DAILY 03/16/18 History [Multivitamins with Minerals] Nut.tx.gluc.intoler,Lac-Fr,Soy 1,600 ml GT DAILY 03/16/18 History [Glucerna 1.2 [place]] Omeprazole 40 mg PO DAILY 03/16/18 History Vit C/Ascorbate Ca/Ascorb Sod 500 mg GT BID 03/16/18 History [Vitamin C 500 mg/15 ml Liquid] amLODIPine Besylate [Norvasc*] 10 mg GT DAILY 03/16/18 History - Allergies Allergies/Adverse Reactions: Allergies Allergy/AdvReac Type Severity Reaction Status Date / Time No Known Allergies Allergy Verified 02/01/18 21:47 Review of Systems - Review of Systems Constitutional: Report: Weakness Eyes: Report: No Significant Respiratory: Report: No Significant Cardiovascular: Report: No Significant Neurological: Report: Weakness Physical Exam - Physical Exam HEENT: Report: Ears Nose Throat within normal limits Neck: Report: Within normal limits Cardiovascular Systems: Report: +s1/s2 noted, Regular, Rate and Rhythm Respiratory: Report: Breath Sounds are within normal limits Abdomen: Report: Non-tender to palpation, Bowel Sounds are within normal limits Extremities: Report: Other (bilateral upper ext swelling ) Skin: Report: Warm, Dry Neuro/Psych: Report: Mood affect is within normal limits - Lab Results All Lab Results last 24 hours: Laboratory Results - last 24 hr 03/16/18 03/16/18 03/16/18 15:19 15:19 15:19 WBC 8.8 RBC 2.68 L Hgb 7.3 L* Hct 22.1 L MCV 82.6 MCH 27.3 MCHC Differential 33.1 RDW 15.4 Plt Count 290 MPV 8.7 Neutrophils % 69.2 Lymphocytes % 21.7 Monocytes % 6.6 Eosinophils % 1.9 Basophils % 0.6 Total Retics Counted Absolute Retic Corrected Retic Count PT 10.4 INR 1.00 PTT (Actin FS) 23.4 L Sodium 141 Potassium 3.3 L Chloride 97 L Carbon Dioxide 35.0 H Anion Gap 12.3 BUN 63 H Creatinine 1.1 Est GFR ( Amer) TNP Est GFR (Non-Af Amer) TNP BUN/Creatinine Ratio 57.3 Glucose 145 H POC Glucose Calcium 8.7 Total Bilirubin AST ALT Alkaline Phosphatase Lactate Dehydrogenase B-Natriuretic Peptide Total Protein Albumin Globulin Albumin/Globulin Ratio Blood Type Antibody Screen Crossmatch 03/16/18 03/16/18 03/17/18 15:19 21:06 05:21 WBC RBC Hgb Hct 26.1 L MCV MCH MCHC Differential RDW Plt Count MPV Neutrophils % Lymphocytes % Monocytes % Eosinophils % Basophils % Total Retics Counted 2.5 H Absolute Retic 75.8 Corrected Retic Count 1.5 PT INR PTT (Actin FS) Sodium Potassium Chloride Carbon Dioxide Anion Gap BUN Creatinine Est GFR ( Amer) Est GFR (Non-Af Amer) BUN/Creatinine Ratio Glucose POC Glucose 127 H Calcium Total Bilirubin AST ALT Alkaline Phosphatase Lactate Dehydrogenase B-Natriuretic Peptide Total Protein Albumin Globulin Albumin/Globulin Ratio Blood Type O POSITIVE Antibody Screen NEGATIVE Crossmatch See Detail 03/17/18 03/17/18 03/17/18 05:21 05:21 05:21 WBC 6.8 D RBC 3.03 L Hgb 8.5 L Hct 26.1 L MCV 86.1 MCH 28.1 MCHC Differential 32.7 RDW 16.1 Plt Count 270 MPV 8.9 Neutrophils % 66.7 Lymphocytes % 23.5 Monocytes % 6.6 Eosinophils % 2.4 Basophils % 0.8 Total Retics Counted Absolute Retic Corrected Retic Count PT INR PTT (Actin FS) Sodium 142 Potassium 3.4 L Chloride 100 Carbon Dioxide 34.1 H Anion Gap 11.3 BUN 56 H Creatinine 1.1 Est GFR ( Amer) TNP Est GFR (Non-Af Amer) TNP BUN/Creatinine Ratio 50.9 Glucose 137 H POC Glucose Calcium 8.7 Total Bilirubin 0.3 AST 13 ALT 10 Alkaline Phosphatase 74 Lactate Dehydrogenase 200 B-Natriuretic Peptide 206.0 H Total Protein 5.8 L Albumin 2.5 L Globulin 3.3 Albumin/Globulin Ratio 0.8 L Blood Type Antibody Screen Crossmatch 03/17/18 03/17/18 05:57 11:23 WBC RBC Hgb Hct MCV MCH MCHC Differential RDW Plt Count MPV Neutrophils % Lymphocytes % Monocytes % Eosinophils % Basophils % Total Retics Counted Absolute Retic Corrected Retic Count PT INR PTT (Actin FS) Sodium Potassium Chloride Carbon Dioxide Anion Gap BUN Creatinine Est GFR ( Amer) Est GFR (Non-Af Amer) BUN/Creatinine Ratio Glucose POC Glucose 142 H 153 H Calcium Total Bilirubin AST ALT Alkaline Phosphatase Lactate Dehydrogenase B-Natriuretic Peptide Total Protein Albumin Globulin Albumin/Globulin Ratio Blood Type Antibody Screen Crossmatch - Assessment Assessment: severe anemia acute renal insufficiency htn dementia chf - Plan Plan: bilateral upper ext venous doppler ivf for hydration monitor h/h gi consultation continue the rest of the orders
[2018-03-17] MEDS ORDERED: Potassium Chloride Elixir 20 mEq /15 mL UDC GT ONE (12:59)
[2018-03-17] MEDS: Pantoprazole 40 mg/Packet GT SCH ×2 (13:15→16:26)
[2018-03-17] MEDS: Sodium Chloride 0.9% 1,000 ML IV SCH (15:15)
--- NOTE | 2018-03-17 23:01 | Consultation ---
DATE OF CONSULTATION: 03/17/2018 TYPE OF CONSULTATION: Gastroenterology. REQUESTING PHYSICIAN: Dr. Jose Tobias. REASON FOR CONSULTATION: Anemia. HISTORY OF PRESENT ILLNESS: A 77-year-old female [facility] for low hemoglobin. There is no overt GI bleeding. She is a poor historian. She has a G-tube inserted with tolerance of feedings. It is unknown whether she has had a previous colonoscopy. She likely had an upper endoscopy with her previous G-tube insertion, but no details are available as to when this was done. PAST MEDICAL HISTORY: As above, also notable for encephalopathy versus dementia. Also, hypertension and diabetes mellitus. MEDICATIONS: Here are Tylenol, albuterol, handheld nebulizer, Norvasc, vitamin C, glipizide, Robitussin p.r.n., hydralazine, insulin sliding scale, Atrovent, Remeron, Haldol, Zofran, Protonix, IV fluids. ALLERGIES: None. SOCIAL HISTORY: No recent tobacco, alcohol, or drugs. FAMILY HISTORY: Noncontributory. REVIEW OF SYSTEMS: Negative. PHYSICAL EXAMINATION: VITAL SIGNS: Temperature of 98.2, blood pressure is 166/81, pulse of 78, respirations 20, O2 sat 100%. GENERAL: The patient is a well-developed, chronically ill-appearing female who is in no acute distress. She is nonverbal. HEENT: Sclerae nonicteric. Oropharynx is clear. CARDIOVASCULAR: Regular rate and rhythm. LUNGS: Clear to auscultation bilaterally. ABDOMEN: Soft, nontender, intact G-tube. EXTREMITIES: No edema. LABORATORY DATA/IMAGING: WBC 6.8, hemoglobin 8.5, most recent hemoglobin yesterday was 7.3, MCV is 83, platelet count is 290. INR is normal. Creatinine is normal at 1.1, BUN is 63. Glucose 145. Liver enzymes are normal. Albumin 2.5. The patient of note had an upper endoscopy done 06/2017 for G-tube insertion. At that time, the upper GI tract was noted to be normal. IMPRESSION: 1. Anemia, multifactorial, could be from slow gastrointestinal blood loss versus anemia of chronic disease versus chronic kidney disease versus hematologic disorder. The patient had an upper endoscopy done with G-tube insertion earlier this year. She also had a history of upper GI bleeding with an upper endoscopy done to 07/09/2017 which showed large Mary-Valladares tear and multiple ulcers of the stomach. She also had an upper endoscopy or colonoscopy done earlier this year on 06/23/2017 where again a large hiatal hernia was identified. There was a large cecal polyp versus mass noted and a large ascending colon polyp versus mass. A small sigmoid polyp was noted, also diverticulosis and hemorrhoids. The patient underwent right hemicolectomy by Dr. 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 There was no invasion of the tumor; also ascending colon smaller 2 cm tubulovillous adenoma was identified without evidence of adenocarcinoma. 2. History of colon cancer as described above, status post resection. 3. History of diabetes mellitus and hypertension. 4. Encephalopathy and dementia. 5. History of G-tube insertion. RECOMMENDATIONS: 1. Check anemia labs including iron indices, also check stool OB test. If there is evidence of iron deficiency anemia and/or stool OB positivity, then consider a repeat endoscopy and/or colonoscopy. 2. If there is no evidence of such on anemia labs then consider conservative nonendoscopic management for now. Repeat colonoscopy at this point would be due likely in May or June of next year, but can be done earlier if anemia persists. 3. G-tube feedings to be resumed as tolerated. 4. Protonix for healing of peptic ulcer disease and/or GERD. In the future if anemia persists, then may also consider hiatal hernia repair with fundoplication as this may be causing the patient's blood loss anemia. Thank you, Dr. Jose Tobias for involving us in the care of your patient. If you have any further questions, please call us. JOB# [id number]
[2018-03-18] MEDS: Sodium Chloride 0.9% 1,000 ML IV SCH ×2 (04:28→16:08)
[2018-03-18 06:27] LABS: % BASOPHILS 0.6 % (0.0-2.0); % EOSINOPHILS 3.7 % (0.0-5.0); % LYMPHOCYTES 26.6 % (20.0-50.0); % MONOCYTES 7.6 % (2.0-10.0); % NEUTROPHILS 61.5 % (40.0-80.0); EOSINOPHILE ABSOLUTE 0.3 Th/cmm (0.1-0.4); HEMOGLOBIN 8.5 gm/dL (12-16); LYMPHOCYTE ABSOLUTE 1.9 Th/cmm (1.5-3.0); MEAN CELL VOLUME 86.5 fl (81-100); MEAN CORPUSCULAR HEMOGLOBIN 28.1 pg (27.0-31.0); MEAN CORPUSCULAR HGB CONC 32.5 pg (28.0-36.0); MEAN PLATELET VOLUME 8.7 fl; MONOCYTE ABSOLUTE 0.5 Th/cmm (0.3-1.0); NEUTROPHILE ABSOLUTE 4.5 Th/cmm (1.8-8.0); PLATELET COUNT 270 Th/cmm (150-400); RED BLOOD COUNT 3.01 Mil/cmm (3.80-5.20); RED CELL DISTRIBUTION WIDTH 16.2 % (11.5-20.0); WHITE BLOOD COUNT 7.2 Th/cmm (4.8-10.8)
[2018-03-18] MEDS: INSULIN ASPART, RECOMBINANT 100 UNITS/ML SUBQ SCH ×4 (08:26→20:37)
[2018-03-18] MEDS: Multivitamin w/ Minerals Tab GT SCH (08:32)
[2018-03-18] MEDS: Pantoprazole 40 mg/Packet GT SCH ×2 (08:32→16:01)
--- NOTE | 2018-03-18 09:59 | Diagnostic Imaging Report ---
Bilateral upper extremity DVT study HISTORY: Pain COMPARISON: None Technique: Longitudinal and transverse sonographic images of the bilateral upper extremity veins were obtained with doppler analysis. FINDINGS: There is patency of bilateral jugular, subclavian, brachial, cephalic, basilic veins. Compressibility and augmentation demonstrated with no evidence of DVT formation. IMPRESSION: No evidence of DVT within the bilateral upper extremity venous system.
--- NOTE | 2018-03-18 11:43 | Internal Medicine Prog Note ---
Internal Medicine Subjective - Subjective Patient seen and examined:: with staff, chart reviewed Patient is:: asleep, non-verbal, non-interactive, in bed, confused, stares blankly Patient Complaints of:: congestion Per staff patient has:: no adverse event, no episodes of fall, agitated, noncompliant, confused Internal Medicine Objective - Results Result Diagrams: 03/18/18 05:40 03/17/18 05:21 Recent Labs: Laboratory Last Values WBC 7.2 Th/cmm (4.8-10.8) 03/18/18 05:40 RBC 3.01 Mil/cmm (3.80-5.20) L 03/18/18 05:40 Hgb 8.5 gm/dL (12-16) L 03/18/18 05:40 Hct 26.0 % (41.0-60) L 03/18/18 05:40 MCV 86.5 fl (81-100) 03/18/18 05:40 MCH 28.1 pg (27.0-31.0) 03/18/18 05:40 MCHC Differential 32.5 pg (28.0-36.0) 03/18/18 05:40 RDW 16.2 % (11.5-20.0) 03/18/18 05:40 Plt Count 270 Th/cmm (150-400) 03/18/18 05:40 MPV 8.7 fl 03/18/18 05:40 Neutrophils % 61.5 % (40.0-80.0) 03/18/18 05:40 Lymphocytes % 26.6 % (20.0-50.0) 03/18/18 05:40 Monocytes % 7.6 % (2.0-10.0) 03/18/18 05:40 Eosinophils % 3.7 % (0.0-5.0) 03/18/18 05:40 Basophils % 0.6 % (0.0-2.0) 03/18/18 05:40 Total Retics Counted 2.5 % (0.5-1.5) H 03/17/18 05:21 Absolute Retic 75.8 Th/cmm 03/17/18 05:21 Corrected Retic Count 1.5 % (0.5-1.5) 03/17/18 05:21 PT 10.4 SECONDS (9.5-11.5) 03/16/18 15:19 INR 1.00 (0.5-1.4) 03/16/18 15:19 PTT (Actin FS) 23.4 SECONDS (26.0-38.0) L 03/16/18 15:19 Sodium 142 mEq/L (136-145) 03/17/18 05:21 Potassium 3.4 mEq/L (3.5-5.1) L 03/17/18 05:21 Chloride 100 mEq/L (98-107) 03/17/18 05:21 Carbon Dioxide 34.1 mEq/L (21.0-31.0) H 03/17/18 05:21 Anion Gap 11.3 (7.0-16.0) 03/17/18 05:21 BUN 56 mg/dL (7-25) H 03/17/18 05:21 Creatinine 1.1 mg/dL (0.6-1.2) 03/17/18 05:21 Est GFR ( Amer) TNP 03/17/18 05:21 Est GFR (Non-Af Amer) TNP 03/17/18 05:21 BUN/Creatinine Ratio 50.9 03/17/18 05:21 Glucose 137 mg/dL (70-105) H 03/17/18 05:21 POC Glucose 125 MG/DL (70 - 105) H 03/18/18 08:26 Calcium 8.7 mg/dL (8.6-10.3) 03/17/18 05:21 Total Bilirubin 0.3 mg/dL (0.3-1.0) 03/17/18 05:21 AST 13 U/L (13-39) 03/17/18 05:21 ALT 10 U/L (7-52) 03/17/18 05:21 Alkaline Phosphatase 74 U/L (34-104) 03/17/18 05:21 Lactate Dehydrogenase 200 U/L (140-271) 03/17/18 05:21 B-Natriuretic Peptide 206.0 pg/mL (5.0-100.0) H 03/17/18 05:21 Total Protein 5.8 gm/dL (6.0-8.3) L 03/17/18 05:21 Albumin 2.5 gm/dL (3.7-5.3) L 03/17/18 05:21 Globulin 3.3 gm/dL 03/17/18 05:21 Albumin/Globulin Ratio 0.8 (1.0-1.8) L 03/17/18 05:21 Stool Occult Blood NEGATIVE (NEGATIVE) 03/17/18 17:38 Blood Type O POSITIVE 03/16/18 15:19 Antibody Screen NEGATIVE 03/16/18 15:19 Crossmatch See Detail 03/16/18 15:19 - Physical Exam Vitals and I&O: Vital Signs Temp 98.6 F 03/18/18 09:25 Pulse 82 03/18/18 09:25 Resp 19 03/18/18 09:25 BP 167/81 03/18/18 09:25 Pulse Ox 96 03/18/18 09:25 Intake & Output 03/17/18 03/18/18 03/18/18 18:59 06:59 18:59 Intake Total 1720 1000 Balance 1720 1000 Weight (lbs) 53.524 kg Intake: Intake, IV Amount 1000 1000 Sodium Chloride 0.9% 1, 1000 1000 000 ml @ 80 mls/hr IV . [id number] [facility] Rx#:[id number] Oral 520 Other 200 Other: # Voids 4 # Bowel Movements 2 Stool Characteristics Soft Soft Formed Formed Brown Brown Green Weight Source Bedscale Active Medications: Current Medications Acetaminophen (Tylenol) 650 mg GT Q4H PRN PRN Reason: Pain Or Fever above 101 Stop: 05/15/18 19:56 Last Admin: 03/17/18 23:16 Dose: 650 mg Albuterol Sulfate (Albuterol 2.5mg/3ml Neb Ud) 2.5 mg HHN Q2HRT PRN PRN Reason: Shortness of Breath or Wheeze Stop: 05/15/18 19:55 Amlodipine Besylate (Norvasc) 10 mg GT DAILY [facility] Stop: 05/16/18 08:59 Last Admin: 03/18/18 08:32 Dose: 10 mg Ascorbic Acid (Vitamin C) 500 mg GT BID ED Stop: 05/16/18 08:59 Last Admin: 03/18/18 08:33 Dose: 500 mg Glipizide (Glucotrol) 2.5 mg PO BIDAC [facility] Stop: 05/16/18 07:29 Last Admin: 03/18/18 08:32 Dose: 2.5 mg Guaifenesin (Robitussin) 200 mg GT Q4HR PRN PRN Reason: Cough or Congestion Stop: 05/15/18 19:56 Haloperidol Decanoate (Haldol Dec) 25 mg IM QMONTH [facility] Stop: 06/07/18 08:59 Hydralazine HCl (Apresoline) 10 mg GT TID [facility] Stop: 05/15/18 20:59 Last Admin: 03/18/18 08:32 Dose: 10 mg Sodium Chloride (Nacl 0.9%) 1,000 mls @ 80 mls/hr IV .[id number] [facility] Stop: 05/15/18 19:59 Last Admin: 03/18/18 04:28 Dose: 80 mls/hr Insulin Aspart (Novolog) 0 units SUBQ ACHS [facility]; Protocol Stop: 05/15/18 20:59 Last Admin: 03/18/18 08:26 Dose: Not Given Ipratropium [place] (Atrovent Neb 0.5mg/2.5ml) 0.5 mg HHN Q2HRT PRN PRN Reason: Shortness of Breath or Wheeze Stop: 05/15/18 19:55 Isosorbide Mononitrate (Imdur) 30 mg PO DAILY [facility] Stop: 05/18/18 08:59 Mirtazapine (Remeron) 15 mg GT HS [facility]; Protocol Stop: 05/15/18 20:59 Last Admin: 03/17/18 20:44 Dose: 15 mg Miscellaneous (Vte Chemical Prophylaxis Screen/ Admission) 1 ea MC PRN PRN PRN Reason: PROTOCOL Stop: 05/16/18 10:05 Ondansetron HCl (Zofran) 4 mg IV Q8H PRN PRN Reason: Nausea / Vomiting Stop: 05/15/18 19:56 Pantoprazole Sodium (Protonix) 40 mg GT BID [facility] Stop: 05/16/18 11:59 Last Admin: 03/18/18 08:32 Dose: 40 mg General: demented, disheveled, thin HEENT: NC/AT, PERRLA, dry oral mucosa, thinning hair, poor dentition Neck: Supple, deformity Lungs: congested, rales Cardiovascular: RRR, Normal S1, Normal S2, with murmur Abdomen: soft, non-tender, thin, +GT, positive bowel sound Extremities: excoriation, ecchymosis, contracture Neurological: lethargic, disorganized - Procedures Procedures: Procedures Procedure Code Date EGD PLACE GASTROSTOMY TUBE 70615 06/21/17 EXCISION OF ASCENDING COLON, ENDO, DIAGN [id number] 06/21/17 EXCISION OF CECUM, ENDO, DIAGN [id number] 06/21/17 EXCISION OF SIGMOID COLON, ENDO, DIAGN [id number] 06/21/17 EXCISION OF STOMACH, ENDO, DIAGN [id number] 06/21/17 INSERTION OF FEEDING DEVICE INTO STOMACH, PERC APPROACH [id number] 06/21/17 INSERTION OF INFUSION DEV INTO SUP VENA CAVA, PERC APPROACH [id number] 06/21/17 INTRODUCTION OF NUTRITIONAL INTO CENTRAL VEIN, PERC APPROACH [id number] 06/21/17 PARTIAL REMOVAL OF COLON 58231 06/21/17 RESECTION OF RIGHT LARGE INTESTINE, OPEN APPROACH [id number] 06/21/17 RESPIRATORY VENTILATION, LESS THAN 24 CONSECUTIVE HOURS [id number] 06/21/17 TRANSFUSE NONAUT RED BLOOD CELLS IN PERIPH VEIN, PERC 67056I9 03/16/18 Internal Medicine Assmt/Plan - Assessment Assessment: - Assessment Assessment: severe anemia acute renal insufficiency htn dementia chf dm - Plan Plan: monitor h and h sp transfusion dw dr lewis, cont on ppi monitor renal function colleen rn Nutritional Asmnt/Malnutr-PDOC - Dietary Evaluation Malnutrition Findings (Please click <Entered> for more info): Nutritional Asmnt/Malnutrition Start: 03/17/18 14: 38 Text: Status: Complete Freq: Protocol: Document 03/17/18 14:39 JUSTO (Rec: 03/17/18 14:51 JUSTO [id number]) Nutritional Asmnt/Malnutrition Patient General Information Nutritional Screening High Risk Consult Diagnosis anemia, dementia, UGI bleed Pertinent Medical Hx/Surgical Hx HTN, DM, CHF, dyslipidemia, dementia, status post UTI, anemia, renal insufficiency/ acute renal failure, PEG/Gtube Subjective Information Received consult for g-tube feeding. Pt resting; visually verified TF formula as Glucerna 1.2, but not running at time of visit. Per nurse note 03/17: EN enfusion is glucerna 1.2 @ 80 cc/hr, turned off at 10:00 am and turned on at 2:00 pm. Per MST assessment, pt's not on HD. Current Diet Order/ Nutrition Support Tube feeding: Glucerna 1.2 @ 80ml/hr x 20 hrs Pertinent Medications Vit C, glucotrol, novolog, remeron, zofran, protonix, Nacl 0.9% Pertinent Labs 03/17: K 3.4, Cl 100, BUN 56, glucose 137, POC 142-153, Ca 8 .7, Alb 2.5 03/16: K 3.3, Cl 97, BUN 63, glulcose 143, POC 127, Ca 8.7 Nutritional Hx/Data Height 1.6 m Height (Calculated Centimeters) 160.0 Current Weight (lbs) 53.524 kg Weight (Calculated Kilograms) 53.5 Weight (Calculated Grams) 78908.9 [place] Body Weight 115 lb Body Mass Index (BMI) 20.9 Weight Status Approriate GI Symptoms GI Symptoms None Last BM none Skin Integrity/Comment: non-pitting 1+ edema to both hands, non-pitting 2+ edema to both feet, decubitus ulcer to sacrum Estimated Nutritional Goals BEE in Kcals: Using Current wt Calories/Kcals/Kg 25-30 Kcals Calculated 1375-1436 Protein: Using Current wt Protein g/k-1.2 Monitor renal labs Protein Calculated 54-64 g Fluid: ml per MD Nutritional Problem 2. Problem Problem Altered nutrition related lab values Etiology hx of DM and renal insufficiency Signs/Symptoms: WNL, BUN 56, glucose 137, POC 142 1. Problem Problem Excessive protein intake Etiology EN infusion Signs/Symptoms: current TF regimen provides 150% of estimated protein needs Malnutrition Alert Is there a minimum of two criteria No selected? Query Text:Check all the applicable criteria. A minimum of two criteria are recommended for diagnosis of either severe or non-severe malnutrition. Malnutrition Related to Morbid Obesity Malnutrition related to morbid obesity No Intervention/Recommendation Comments 1. Recommend to modify rate of glucerna 1.2 to 60 ml/hr x 20 hrs, which provides 1440 kcals and 72 g protein, meeting 100% nutrition needs and ~110% protein needs 2. Monitor TF rate, tolerance, wt, skin integrity and labs 3. F/U as high risk in 2-3 days, 03/19-03/20 Expected Outcomes/Goals Expected Outcomes/Goals 1. Pt to meet at least 75% of nutritional needs via nutrition support with tolerance 2. Wt stability, skin to remain intact, labs to approach WNL. Reviewed by Luisa Pillai RD
[2018-03-18 12:11] LABS: FERRITIN 150 ng/mL (15-150); FOLIC ACID >20.0 ng/mL (>3.0); IRON LC 35 ug/dL (27-139); TIBC (LC) 184 ug/dL (250-450); UIBC 149 ug/dL (118-369)
--- NOTE | 2018-03-18 14:13 | GI Progress Note ---
Subjective - Review of Systems Service Date: 03/18/18 Subjective: GI NOTE ILENE GT FEEDS. NO OVERT GI BLEEDING. Objective - Results Result Diagrams: 03/18/18 05:40 03/17/18 05:21 Recent Labs: Laboratory Last Values WBC 7.2 Th/cmm (4.8-10.8) 03/18/18 05:40 RBC 3.01 Mil/cmm (3.80-5.20) L 03/18/18 05:40 Hgb 8.5 gm/dL (12-16) L 03/18/18 05:40 Hct 26.0 % (41.0-60) L 03/18/18 05:40 MCV 86.5 fl (81-100) 03/18/18 05:40 MCH 28.1 pg (27.0-31.0) 03/18/18 05:40 MCHC Differential 32.5 pg (28.0-36.0) 03/18/18 05:40 RDW 16.2 % (11.5-20.0) 03/18/18 05:40 Plt Count 270 Th/cmm (150-400) 03/18/18 05:40 MPV 8.7 fl 03/18/18 05:40 Neutrophils % 61.5 % (40.0-80.0) 03/18/18 05:40 Lymphocytes % 26.6 % (20.0-50.0) 03/18/18 05:40 Monocytes % 7.6 % (2.0-10.0) 03/18/18 05:40 Eosinophils % 3.7 % (0.0-5.0) 03/18/18 05:40 Basophils % 0.6 % (0.0-2.0) 03/18/18 05:40 Total Retics Counted 2.5 % (0.5-1.5) H 03/17/18 05:21 Absolute Retic 75.8 Th/cmm 03/17/18 05:21 Corrected Retic Count 1.5 % (0.5-1.5) 03/17/18 05:21 PT 10.4 SECONDS (9.5-11.5) 03/16/18 15:19 INR 1.00 (0.5-1.4) 03/16/18 15:19 PTT (Actin FS) 23.4 SECONDS (26.0-38.0) L 03/16/18 15:19 Sodium 142 mEq/L (136-145) 03/17/18 05:21 Potassium 3.4 mEq/L (3.5-5.1) L 03/17/18 05:21 Chloride 100 mEq/L (98-107) 03/17/18 05:21 Carbon Dioxide 34.1 mEq/L (21.0-31.0) H 03/17/18 05:21 Anion Gap 11.3 (7.0-16.0) 03/17/18 05:21 BUN 56 mg/dL (7-25) H 03/17/18 05:21 Creatinine 1.1 mg/dL (0.6-1.2) 03/17/18 05:21 Est GFR ( Amer) TNP 03/17/18 05:21 Est GFR (Non-Af Amer) TNP 03/17/18 05:21 BUN/Creatinine Ratio 50.9 03/17/18 05:21 Glucose 137 mg/dL (70-105) H 03/17/18 05:21 POC Glucose 83 MG/DL (70 - 105) 03/18/18 11:50 Calcium 8.7 mg/dL (8.6-10.3) 03/17/18 05:21 Iron 35 ug/dL (27-139) 03/17/18 05:21 TIBC 184 ug/dL (250-450) L 03/17/18 05:21 Iron Saturation 19 % (15-55) 03/17/18 05:21 Unsaturated IBC 149 ug/dL (118-369) 03/17/18 05:21 Ferritin 150 ng/mL (15-150) 03/17/18 05:21 Total Bilirubin 0.3 mg/dL (0.3-1.0) 03/17/18 05:21 AST 13 U/L (13-39) 03/17/18 05:21 ALT 10 U/L (7-52) 03/17/18 05:21 Alkaline Phosphatase 74 U/L (34-104) 03/17/18 05:21 Lactate Dehydrogenase 200 U/L (140-271) 03/17/18 05:21 B-Natriuretic Peptide 206.0 pg/mL (5.0-100.0) H 03/17/18 05:21 Total Protein 5.8 gm/dL (6.0-8.3) L 03/17/18 05:21 Albumin 2.5 gm/dL (3.7-5.3) L 03/17/18 05:21 Globulin 3.3 gm/dL 03/17/18 05:21 Albumin/Globulin Ratio 0.8 (1.0-1.8) L 03/17/18 05:21 Vitamin B12 1221 pg/mL (232-1245) 03/17/18 05:21 Folic Acid >20.0 ng/mL (>3.0) 03/17/18 05:21 Stool Occult Blood NEGATIVE (NEGATIVE) 03/17/18 17:38 Blood Type O POSITIVE 03/16/18 15:19 Antibody Screen NEGATIVE 03/16/18 15:19 Crossmatch See Detail 03/16/18 15:19 - Physical Exam Vitals and I&O: Vital Signs Temp 98.8 F 03/18/18 12:31 Pulse 72 03/18/18 13:15 Resp 18 03/18/18 12:31 BP 150/72 03/18/18 13:15 Pulse Ox 95 03/18/18 12:31 Intake & Output 03/17/18 03/18/18 03/18/18 18:59 06:59 18:59 Intake Total 1720 1000 Balance 1720 1000 Weight (lbs) 53.524 kg Intake: Intake, IV Amount 1000 1000 Sodium Chloride 0.9% 1, 1000 1000 000 ml @ 80 mls/hr IV . [id number] [facility] Rx#:[id number] Oral 520 Other 200 Other: # Voids 4 # Bowel Movements 2 Stool Characteristics Soft Soft Formed Formed Brown Brown Green Weight Source Bedscale Active Medications: Current Medications Acetaminophen (Tylenol) 650 mg GT Q4H PRN PRN Reason: Pain Or Fever above 101 Stop: 05/15/18 19:56 Last Admin: 03/17/18 23:16 Dose: 650 mg Albuterol Sulfate (Albuterol 2.5mg/3ml Neb Ud) 2.5 mg HHN Q2HRT PRN PRN Reason: Shortness of Breath or Wheeze Stop: 05/15/18 19:55 Amlodipine Besylate (Norvasc) 10 mg GT DAILY [facility] Stop: 05/16/18 08:59 Last Admin: 03/18/18 08:32 Dose: 10 mg Ascorbic Acid (Vitamin C) 500 mg GT BID ED Stop: 05/16/18 08:59 Last Admin: 03/18/18 08:33 Dose: 500 mg Glipizide (Glucotrol) 2.5 mg PO BIDAC [facility] Stop: 05/16/18 07:29 Last Admin: 03/18/18 08:32 Dose: 2.5 mg Guaifenesin (Robitussin) 200 mg GT Q4HR PRN PRN Reason: Cough or Congestion Stop: 05/15/18 19:56 Haloperidol Decanoate (Haldol Dec) 25 mg IM QMONTH ED Stop: 06/07/18 08:59 Hydralazine HCl (Apresoline) 10 mg GT TID [facility] Stop: 05/15/18 20:59 Last Admin: 03/18/18 13:15 Dose: 10 mg Sodium Chloride (Nacl 0.9%) 1,000 mls @ 80 mls/hr IV .[id number] [facility] Stop: 05/15/18 19:59 Last Admin: 03/18/18 04:28 Dose: 80 mls/hr Insulin Aspart (Novolog) 0 units SUBQ ACHS [facility]; Protocol Stop: 05/15/18 20:59 Last Admin: 03/18/18 11:58 Dose: Not Given Ipratropium [place] (Atrovent Neb 0.5mg/2.5ml) 0.5 mg HHN Q2HRT PRN PRN Reason: Shortness of Breath or Wheeze Stop: 05/15/18 19:55 Isosorbide Mononitrate (Imdur) 30 mg PO DAILY [facility] Stop: 05/18/18 08:59 Mirtazapine (Remeron) 15 mg GT HS ED; Protocol Stop: 05/15/18 20:59 Last Admin: 03/17/18 20:44 Dose: 15 mg Miscellaneous (Vte Chemical Prophylaxis Screen/ Admission) 1 ea MC PRN PRN PRN Reason: PROTOCOL Stop: 05/16/18 10:05 Ondansetron HCl (Zofran) 4 mg IV Q8H PRN PRN Reason: Nausea / Vomiting Stop: 05/15/18 19:56 Pantoprazole Sodium (Protonix) 40 mg GT BID [facility] Stop: 05/16/18 11:59 Last Admin: 03/18/18 08:32 Dose: 40 mg General: No acute distress Neck: Supple Cardiovascular: Regular rate Lungs: Clear to auscultation Abdomen: Bowel sounds, Soft, Other (INTACT GT), no Tender - Procedures Procedures: Procedures Procedure Code Date EGD PLACE GASTROSTOMY TUBE 45582 06/21/17 EXCISION OF ASCENDING COLON, ENDO, DIAGN [id number] 06/21/17 EXCISION OF CECUM, ENDO, DIAGN [id number] 06/21/17 EXCISION OF SIGMOID COLON, ENDO, DIAGN [id number] 06/21/17 EXCISION OF STOMACH, ENDO, DIAGN [id number] 06/21/17 INSERTION OF FEEDING DEVICE INTO STOMACH, PERC APPROACH [id number] 06/21/17 INSERTION OF INFUSION DEV INTO SUP VENA CAVA, PERC APPROACH [id number] 06/21/17 INTRODUCTION OF NUTRITIONAL INTO CENTRAL VEIN, PERC APPROACH [id number] 06/21/17 PARTIAL REMOVAL OF COLON 47889 06/21/17 RESECTION OF RIGHT LARGE INTESTINE, OPEN APPROACH [id number] 06/21/17 RESPIRATORY VENTILATION, LESS THAN 24 CONSECUTIVE HOURS [id number] 06/21/17 TRANSFUSE NONAUT RED BLOOD CELLS IN PERIPH VEIN, PERC [id number] 03/16/18 Assessment/Plan - Assessment Assessment: IMPRESSION: 1. ANEMIA, MULTIFACTORIAL. S/P TRANSFUSION. FOBT NEG. 2. DYSPHAGIA S/P PEG. 3. HX COLON CANCER S/P R HEMICOLECTOMY EARLIER THIS YEAR. RECS: 1. NO NEED TO REPEAT ENDOSCOPIC WORKUP FOR NOW. 2. CONSIDER REPEAT COLONOSCOPY IN 3-4 MONTHS. 3. GT FEEDS ILENE. GI MENDOZA STABLE.
[2018-03-19 06:31] LABS: % EOSINOPHILS 5.1 % (0.0-5.0); % LYMPHOCYTES 24.4 % (20.0-50.0); % NEUTROPHILS 63.5 % (40.0-80.0); BASOPHILE ABSOLUTE 0.1 Th/cumm (0-0.2); EOSINOPHILE ABSOLUTE 0.4 Th/cmm (0.1-0.4); HEMATOCRIT 27.8 % (41.0-60); HEMOGLOBIN 9.1 gm/dL (12-16); LYMPHOCYTE ABSOLUTE 1.8 Th/cmm (1.5-3.0); MEAN CELL VOLUME 85.9 fl (81-100); MEAN CORPUSCULAR HGB CONC 32.6 pg (28.0-36.0); MEAN PLATELET VOLUME 8.6 fl; MONOCYTE ABSOLUTE 0.4 Th/cmm (0.3-1.0); NEUTROPHILE ABSOLUTE 4.6 Th/cmm (1.8-8.0); PLATELET COUNT 268 Th/cmm (150-400); RED BLOOD COUNT 3.24 Mil/cmm (3.80-5.20); RED CELL DISTRIBUTION WIDTH 16.6 % (11.5-20.0); WHITE BLOOD COUNT 7.3 Th/cmm (4.8-10.8)
[2018-03-19 06:32] LABS: ANION GAP 10.9 (7.0-16.0); BUN - UREA NITROGEN 38 mg/dL (7-25); CALCIUM SERUM 8.4 mg/dL (8.6-10.3); CARBON DIOXIDE 28.6 mEq/L (21.0-31.0); CHLORIDE 105 mEq/L (98-107); CREATININE - SERUM 1.1 mg/dL (0.6-1.2); GLUCOSE 146 mg/dL (70-105); POTASSIUM SERUM 3.5 mEq/L (3.5-5.1); SODIUM SERUM 141 mEq/L (136-145)
[2018-03-19] MEDS: INSULIN ASPART, RECOMBINANT 100 UNITS/ML SUBQ SCH ×4 (06:38→20:48)
[2018-03-19] MEDS: Multivitamin w/ Minerals Tab GT SCH (08:31)
[2018-03-19] MEDS: Pantoprazole 40 mg/Packet GT SCH ×3 (08:32→16:18)
--- NOTE | 2018-03-19 09:00 | GI Progress Note ---
Subjective - Review of Systems Service Date: 03/19/18 Subjective: GI NOTE ILENE GT FEEDS. NO OVERT GI BLEEDING. Objective - Results Result Diagrams: 03/19/18 05:50 03/19/18 05:50 Recent Labs: Laboratory Last Values WBC 7.3 Th/cmm (4.8-10.8) 03/19/18 05:50 RBC 3.24 Mil/cmm (3.80-5.20) L 03/19/18 05:50 Hgb 9.1 gm/dL (12-16) L 03/19/18 05:50 Hct 27.8 % (41.0-60) L 03/19/18 05:50 MCV 85.9 fl (81-100) 03/19/18 05:50 MCH 28.0 pg (27.0-31.0) 03/19/18 05:50 MCHC Differential 32.6 pg (28.0-36.0) 03/19/18 05:50 RDW 16.6 % (11.5-20.0) 03/19/18 05:50 Plt Count 268 Th/cmm (150-400) 03/19/18 05:50 MPV 8.6 fl 03/19/18 05:50 Neutrophils % 63.5 % (40.0-80.0) 03/19/18 05:50 Lymphocytes % 24.4 % (20.0-50.0) 03/19/18 05:50 Monocytes % 6.0 % (2.0-10.0) 03/19/18 05:50 Eosinophils % 5.1 % (0.0-5.0) H 03/19/18 05:50 Basophils % 1.0 % (0.0-2.0) 03/19/18 05:50 Total Retics Counted 2.5 % (0.5-1.5) H 03/17/18 05:21 Absolute Retic 75.8 Th/cmm 03/17/18 05:21 Corrected Retic Count 1.5 % (0.5-1.5) 03/17/18 05:21 PT 10.4 SECONDS (9.5-11.5) 03/16/18 15:19 INR 1.00 (0.5-1.4) 03/16/18 15:19 PTT (Actin FS) 23.4 SECONDS (26.0-38.0) L 03/16/18 15:19 Sodium 141 mEq/L (136-145) 03/19/18 05:50 Potassium 3.5 mEq/L (3.5-5.1) 03/19/18 05:50 Chloride 105 mEq/L (98-107) 03/19/18 05:50 Carbon Dioxide 28.6 mEq/L (21.0-31.0) 03/19/18 05:50 Anion Gap 10.9 (7.0-16.0) 03/19/18 05:50 BUN 38 mg/dL (7-25) H 03/19/18 05:50 Creatinine 1.1 mg/dL (0.6-1.2) 03/19/18 05:50 Est GFR ( Amer) TNP 03/19/18 05:50 Est GFR (Non-Af Amer) TNP 03/19/18 05:50 BUN/Creatinine Ratio 34.5 03/19/18 05:50 Glucose 146 mg/dL (70-105) H 03/19/18 05:50 POC Glucose 93 MG/DL (70 - 105) 03/18/18 20:32 Calcium 8.4 mg/dL (8.6-10.3) L 03/19/18 05:50 Iron 35 ug/dL (27-139) 03/17/18 05:21 TIBC 184 ug/dL (250-450) L 03/17/18 05:21 Iron Saturation 19 % (15-55) 03/17/18 05:21 Unsaturated IBC 149 ug/dL (118-369) 03/17/18 05:21 Ferritin 150 ng/mL (15-150) 03/17/18 05:21 Total Bilirubin 0.3 mg/dL (0.3-1.0) 03/17/18 05:21 AST 13 U/L (13-39) 03/17/18 05:21 ALT 10 U/L (7-52) 03/17/18 05:21 Alkaline Phosphatase 74 U/L (34-104) 03/17/18 05:21 Ammonia 55 umol/L (16-53) H 03/19/18 05:50 Lactate Dehydrogenase 200 U/L (140-271) 03/17/18 05:21 B-Natriuretic Peptide 206.0 pg/mL (5.0-100.0) H 03/17/18 05:21 Total Protein 5.8 gm/dL (6.0-8.3) L 03/17/18 05:21 Albumin 2.5 gm/dL (3.7-5.3) L 03/17/18 05:21 Globulin 3.3 gm/dL 03/17/18 05:21 Albumin/Globulin Ratio 0.8 (1.0-1.8) L 03/17/18 05:21 Vitamin B12 1221 pg/mL (232-1245) 03/17/18 05:21 Folic Acid >20.0 ng/mL (>3.0) 03/17/18 05:21 Stool Occult Blood NEGATIVE (NEGATIVE) 03/17/18 17:38 Blood Type O POSITIVE 03/16/18 15:19 Antibody Screen NEGATIVE 03/16/18 15:19 Crossmatch See Detail 03/16/18 15:19 - Physical Exam Vitals and I&O: Vital Signs Temp 97.0 F 03/19/18 04:00 Pulse 82 03/19/18 08:31 Resp 14 03/19/18 07:53 BP 167/80 03/19/18 08:31 Pulse Ox 97 03/19/18 07:53 Intake & Output 03/18/18 03/19/18 03/19/18 18:59 06:59 18:59 Intake Total 1563.333 Balance 1563.333 Weight (lbs) 53.524 kg Intake: Intake, IV Amount 933.333 Sodium Chloride 0.9% 1, 933.333 000 ml @ 80 mls/hr IV . [id number] [facility] Rx#:[id number] Oral 0 Tube Feeding 480 Other 150 Other: # Voids 3 # Bowel Movements 1 Stool Characteristics Soft Formed Weight Source Bedscale Active Medications: Current Medications Acetaminophen (Tylenol) 650 mg GT Q4H PRN PRN Reason: Pain Or Fever above 101 Stop: 05/15/18 19:56 Last Admin: 03/17/18 23:16 Dose: 650 mg Albuterol Sulfate (Albuterol 2.5mg/3ml Neb Ud) 2.5 mg HHN Q2HRT PRN PRN Reason: Shortness of Breath or Wheeze Stop: 05/15/18 19:55 Amlodipine Besylate (Norvasc) 10 mg GT DAILY [facility] Stop: 05/16/18 08:59 Last Admin: 03/19/18 08:31 Dose: 10 mg Ascorbic Acid (Vitamin C) 500 mg GT BID ED Stop: 05/16/18 08:59 Last Admin: 03/19/18 08:31 Dose: 500 mg Glipizide (Glucotrol) 2.5 mg PO BIDAC [facility] Stop: 05/16/18 07:29 Last Admin: 03/19/18 06:36 Dose: 2.5 mg Guaifenesin (Robitussin) 200 mg GT Q4HR PRN PRN Reason: Cough or Congestion Stop: 05/15/18 19:56 Haloperidol Decanoate (Haldol Dec) 25 mg IM QMONTH [facility] Stop: 06/07/18 08:59 Hydralazine HCl (Apresoline) 10 mg GT TID [facility] Stop: 05/15/18 20:59 Last Admin: 03/19/18 08:31 Dose: 10 mg Sodium Chloride (Nacl 0.9%) 1,000 mls @ 80 mls/hr IV .[id number] [facility] Stop: 05/15/18 19:59 Last Admin: 03/18/18 16:08 Dose: 80 mls/hr Insulin Aspart (Novolog) 0 units SUBQ ACHS [facility]; Protocol Stop: 05/15/18 20:59 Last Admin: 03/19/18 06:38 Dose: Not Given Ipratropium [place] (Atrovent Neb 0.5mg/2.5ml) 0.5 mg HHN Q2HRT PRN PRN Reason: Shortness of Breath or Wheeze Stop: 05/15/18 19:55 Isosorbide Mononitrate (Imdur) 30 mg PO DAILY [facility] Stop: 05/18/18 08:59 Last Admin: 03/19/18 08:30 Dose: 30 mg Mirtazapine (Remeron) 15 mg GT HS [facility]; Protocol Stop: 05/15/18 20:59 Last Admin: 03/18/18 20:28 Dose: 15 mg Miscellaneous (Vte Chemical Prophylaxis Screen/ Admission) 1 ea MC PRN PRN PRN Reason: PROTOCOL Stop: 05/16/18 10:05 Ondansetron HCl (Zofran) 4 mg IV Q8H PRN PRN Reason: Nausea / Vomiting Stop: 05/15/18 19:56 Pantoprazole Sodium (Protonix) 40 mg GT BID ED Stop: 05/16/18 11:59 Last Admin: 03/19/18 08:33 Dose: 40 mg General: No acute distress Neck: Supple Cardiovascular: Regular rate Lungs: Clear to auscultation Abdomen: Bowel sounds, Soft, Other (INTACT GT), no Tender - Procedures Procedures: Procedures Procedure Code Date EGD PLACE GASTROSTOMY TUBE 28895 06/21/17 EXCISION OF ASCENDING COLON, ENDO, DIAGN [id number] 06/21/17 EXCISION OF CECUM, ENDO, DIAGN [id number] 06/21/17 EXCISION OF SIGMOID COLON, ENDO, DIAGN [id number] 06/21/17 EXCISION OF STOMACH, ENDO, DIAGN [id number] 06/21/17 INSERTION OF FEEDING DEVICE INTO STOMACH, PERC APPROACH [id number] 06/21/17 INSERTION OF INFUSION DEV INTO SUP VENA CAVA, PERC APPROACH [id number] 06/21/17 INTRODUCTION OF NUTRITIONAL INTO CENTRAL VEIN, PERC APPROACH 3G7746V 06/21/17 PARTIAL REMOVAL OF COLON 13884 06/21/17 RESECTION OF RIGHT LARGE INTESTINE, OPEN APPROACH 9DSZ5IM 06/21/17 RESPIRATORY VENTILATION, LESS THAN 24 CONSECUTIVE HOURS [id number] 06/21/17 TRANSFUSE NONAUT RED BLOOD CELLS IN PERIPH VEIN, PERC 15333E3 03/16/18 Assessment/Plan - Assessment Assessment: IMPRESSION: 1. ANEMIA, MULTIFACTORIAL. S/P TRANSFUSION. FOBT NEG. 2. DYSPHAGIA S/P PEG. 3. HX COLON CANCER S/P R HEMICOLECTOMY EARLIER THIS YEAR. RECS: 1. NO NEED TO REPEAT ENDOSCOPIC WORKUP FOR NOW. 2. CONSIDER REPEAT COLONOSCOPY IN 3-4 MONTHS. 3. GT FEEDS ILENE. GI MENDOZA STABLE.
--- NOTE | 2018-03-19 10:09 | Internal Medicine Prog Note ---
Internal Medicine Subjective - Subjective Patient seen and examined:: with staff, chart reviewed Patient is:: asleep, non-verbal, non-interactive, in bed, confused, stares blankly Patient Complaints of:: congestion Per staff patient has:: no adverse event, no episodes of fall, agitated, noncompliant, confused Internal Medicine Objective - Results Result Diagrams: 03/19/18 05:50 03/19/18 05:50 Recent Labs: Laboratory Last Values WBC 7.3 Th/cmm (4.8-10.8) 03/19/18 05:50 RBC 3.24 Mil/cmm (3.80-5.20) L 03/19/18 05:50 Hgb 9.1 gm/dL (12-16) L 03/19/18 05:50 Hct 27.8 % (41.0-60) L 03/19/18 05:50 MCV 85.9 fl (81-100) 03/19/18 05:50 MCH 28.0 pg (27.0-31.0) 03/19/18 05:50 MCHC Differential 32.6 pg (28.0-36.0) 03/19/18 05:50 RDW 16.6 % (11.5-20.0) 03/19/18 05:50 Plt Count 268 Th/cmm (150-400) 03/19/18 05:50 MPV 8.6 fl 03/19/18 05:50 Neutrophils % 63.5 % (40.0-80.0) 03/19/18 05:50 Lymphocytes % 24.4 % (20.0-50.0) 03/19/18 05:50 Monocytes % 6.0 % (2.0-10.0) 03/19/18 05:50 Eosinophils % 5.1 % (0.0-5.0) H 03/19/18 05:50 Basophils % 1.0 % (0.0-2.0) 03/19/18 05:50 Total Retics Counted 2.5 % (0.5-1.5) H 03/17/18 05:21 Absolute Retic 75.8 Th/cmm 03/17/18 05:21 Corrected Retic Count 1.5 % (0.5-1.5) 03/17/18 05:21 PT 10.4 SECONDS (9.5-11.5) 03/16/18 15:19 INR 1.00 (0.5-1.4) 03/16/18 15:19 PTT (Actin FS) 23.4 SECONDS (26.0-38.0) L 03/16/18 15:19 Sodium 141 mEq/L (136-145) 03/19/18 05:50 Potassium 3.5 mEq/L (3.5-5.1) 03/19/18 05:50 Chloride 105 mEq/L (98-107) 03/19/18 05:50 Carbon Dioxide 28.6 mEq/L (21.0-31.0) 03/19/18 05:50 Anion Gap 10.9 (7.0-16.0) 03/19/18 05:50 BUN 38 mg/dL (7-25) H 03/19/18 05:50 Creatinine 1.1 mg/dL (0.6-1.2) 03/19/18 05:50 Est GFR ( Amer) TNP 03/19/18 05:50 Est GFR (Non-Af Amer) TNP 03/19/18 05:50 BUN/Creatinine Ratio 34.5 03/19/18 05:50 Glucose 146 mg/dL (70-105) H 03/19/18 05:50 POC Glucose 93 MG/DL (70 - 105) 03/18/18 20:32 Calcium 8.4 mg/dL (8.6-10.3) L 03/19/18 05:50 Iron 35 ug/dL (27-139) 03/17/18 05:21 TIBC 184 ug/dL (250-450) L 03/17/18 05:21 Iron Saturation 19 % (15-55) 03/17/18 05:21 Unsaturated IBC 149 ug/dL (118-369) 03/17/18 05:21 Ferritin 150 ng/mL (15-150) 03/17/18 05:21 Total Bilirubin 0.3 mg/dL (0.3-1.0) 03/17/18 05:21 AST 13 U/L (13-39) 03/17/18 05:21 ALT 10 U/L (7-52) 03/17/18 05:21 Alkaline Phosphatase 74 U/L (34-104) 03/17/18 05:21 Ammonia 55 umol/L (16-53) H 03/19/18 05:50 Lactate Dehydrogenase 200 U/L (140-271) 03/17/18 05:21 B-Natriuretic Peptide 206.0 pg/mL (5.0-100.0) H 03/17/18 05:21 Total Protein 5.8 gm/dL (6.0-8.3) L 03/17/18 05:21 Albumin 2.5 gm/dL (3.7-5.3) L 03/17/18 05:21 Globulin 3.3 gm/dL 03/17/18 05:21 Albumin/Globulin Ratio 0.8 (1.0-1.8) L 03/17/18 05:21 Vitamin B12 1221 pg/mL (232-1245) 03/17/18 05:21 Folic Acid >20.0 ng/mL (>3.0) 03/17/18 05:21 Stool Occult Blood NEGATIVE (NEGATIVE) 03/17/18 17:38 Blood Type O POSITIVE 03/16/18 15:19 Antibody Screen NEGATIVE 03/16/18 15:19 Crossmatch See Detail 03/16/18 15:19 - Physical Exam Vitals and I&O: Vital Signs Temp 96.7 F 03/19/18 08:00 Pulse 82 03/19/18 08:31 Resp 18 03/19/18 09:00 BP 167/80 03/19/18 08:31 Pulse Ox 100 03/19/18 08:00 Intake & Output 03/18/18 03/19/18 03/19/18 18:59 06:59 18:59 Intake Total 1563.333 Balance 1563.333 Weight (lbs) 53.524 kg Intake: Intake, IV Amount 933.333 Sodium Chloride 0.9% 1, 933.333 000 ml @ 80 mls/hr IV . [id number] [facility] Rx#:[id number] Oral 0 Tube Feeding 480 Other 150 Other: # Voids 3 # Bowel Movements 1 Stool Characteristics Soft Soft Formed Formed Weight Source Bedscale Active Medications: Current Medications Acetaminophen (Tylenol) 650 mg GT Q4H PRN PRN Reason: Pain Or Fever above 101 Stop: 05/15/18 19:56 Last Admin: 03/17/18 23:16 Dose: 650 mg Albuterol Sulfate (Albuterol 2.5mg/3ml Neb Ud) 2.5 mg HHN Q2HRT PRN PRN Reason: Shortness of Breath or Wheeze Stop: 05/15/18 19:55 Amlodipine Besylate (Norvasc) 10 mg GT DAILY [facility] Stop: 05/16/18 08:59 Last Admin: 03/19/18 08:31 Dose: 10 mg Ascorbic Acid (Vitamin C) 500 mg GT BID ED Stop: 05/16/18 08:59 Last Admin: 03/19/18 08:31 Dose: 500 mg Glipizide (Glucotrol) 2.5 mg PO BIDAC [facility] Stop: 05/16/18 07:29 Last Admin: 03/19/18 06:36 Dose: 2.5 mg Guaifenesin (Robitussin) 200 mg GT Q4HR PRN PRN Reason: Cough or Congestion Stop: 05/15/18 19:56 Haloperidol Decanoate (Haldol Dec) 25 mg IM QMONTH [facility] Stop: 06/07/18 08:59 Hydralazine HCl (Apresoline) 10 mg GT TID [facility] Stop: 05/15/18 20:59 Last Admin: 03/19/18 08:31 Dose: 10 mg Sodium Chloride (Nacl 0.9%) 1,000 mls @ 80 mls/hr IV .[id number] [facility] Stop: 05/15/18 19:59 Last Admin: 03/18/18 16:08 Dose: 80 mls/hr Insulin Aspart (Novolog) 0 units SUBQ ACHS [facility]; Protocol Stop: 05/15/18 20:59 Last Admin: 03/19/18 06:38 Dose: Not Given Ipratropium [place] (Atrovent Neb 0.5mg/2.5ml) 0.5 mg HHN Q2HRT PRN PRN Reason: Shortness of Breath or Wheeze Stop: 05/15/18 19:55 Isosorbide Mononitrate (Imdur) 30 mg PO DAILY [facility] Stop: 05/18/18 08:59 Last Admin: 03/19/18 08:30 Dose: 30 mg Mirtazapine (Remeron) 15 mg GT HS ED; Protocol Stop: 05/15/18 20:59 Last Admin: 03/18/18 20:28 Dose: 15 mg Miscellaneous (Vte Chemical Prophylaxis Screen/ Admission) 1 ea PRN PRN PRN Reason: PROTOCOL Stop: 05/16/18 10:05 Ondansetron HCl (Zofran) 4 mg IV Q8H PRN PRN Reason: Nausea / Vomiting Stop: 05/15/18 19:56 Pantoprazole Sodium (Protonix) 40 mg GT BID ED Stop: 05/16/18 11:59 Last Admin: 03/19/18 08:33 Dose: 40 mg General: demented, disheveled, thin HEENT: NC/AT, PERRLA, dry oral mucosa, thinning hair, poor dentition Neck: Supple, deformity Lungs: congested, rales Cardiovascular: RRR, Normal S1, Normal S2, with murmur Abdomen: soft, non-tender, thin, +GT, positive bowel sound Extremities: excoriation, ecchymosis, contracture Neurological: lethargic, disorganized - Procedures Procedures: Procedures Procedure Code Date EGD PLACE GASTROSTOMY TUBE 63441 06/21/17 EXCISION OF ASCENDING COLON, ENDO, DIAGN [id number] 06/21/17 EXCISION OF CECUM, ENDO, DIAGN [id number] 06/21/17 EXCISION OF SIGMOID COLON, ENDO, DIAGN [id number] 06/21/17 EXCISION OF STOMACH, ENDO, DIAGN [id number] 06/21/17 INSERTION OF FEEDING DEVICE INTO STOMACH, PERC APPROACH [id number] 06/21/17 INSERTION OF INFUSION DEV INTO SUP VENA CAVA, PERC APPROACH [id number] 06/21/17 INTRODUCTION OF NUTRITIONAL INTO CENTRAL VEIN, PERC APPROACH [id number] 06/21/17 PARTIAL REMOVAL OF COLON 52483 06/21/17 RESECTION OF RIGHT LARGE INTESTINE, OPEN APPROACH [id number] 06/21/17 RESPIRATORY VENTILATION, LESS THAN 24 CONSECUTIVE HOURS [id number] 06/21/17 TRANSFUSE NONAUT RED BLOOD CELLS IN PERIPH VEIN, PERC 14723B4 03/16/18 Internal Medicine Assmt/Plan - Assessment Assessment: - Assessment Assessment: severe anemia acute renal insufficiency htn dementia chf dm - Plan Plan: monitor h and h sp transfusion colleen lewis, cont on ppi monitor renal function colleen rn Nutritional Asmnt/Malnutr-PDOC - Dietary Evaluation Malnutrition Findings (Please click <Entered> for more info): Nutritional Asmnt/Malnutrition Start: 03/17/18 14: 38 Text: Status: Complete Freq: Protocol: Document 03/17/18 14:39 JUSTO (Rec: 03/17/18 14:51 JUSTO [email or web address]) Nutritional Asmnt/Malnutrition Patient General Information Nutritional Screening High Risk Consult Diagnosis anemia, dementia, UGI bleed Pertinent Medical Hx/Surgical Hx HTN, DM, CHF, dyslipidemia, dementia, status post UTI, anemia, renal insufficiency/ acute renal failure, PEG/Gtube Subjective Information Received consult for g-tube feeding. Pt resting; visually verified TF formula as Glucerna 1.2, but not running at time of visit. Per nurse note 03/17: EN enfusion is glucerna 1.2 @ 80 cc/hr, turned off at 10:00 am and turned on at 2:00 pm. Per MST assessment, pt's not on HD. Current Diet Order/ Nutrition Support Tube feeding: Glucerna 1.2 @ 80ml/hr x 20 hrs Pertinent Medications Vit C, glucotrol, novolog, remeron, zofran, protonix, Nacl 0.9% Pertinent Labs 03/17: K 3.4, Cl 100, BUN 56, glucose 137, POC 142-153, Ca 8 .7, Alb 2.5 03/16: K 3.3, Cl 97, BUN 63, glulcose 143, POC 127, Ca 8.7 Nutritional Hx/Data Height 1.6 m Height (Calculated Centimeters) 160.0 Current Weight (lbs) 53.524 kg Weight (Calculated Kilograms) 53.5 Weight (Calculated Grams) 02845.9 [place] Body Weight 115 lb Body Mass Index (BMI) 20.9 Weight Status Approriate GI Symptoms GI Symptoms None Last BM none Skin Integrity/Comment: non-pitting 1+ edema to both hands, non-pitting 2+ edema to both feet, decubitus ulcer to sacrum Estimated Nutritional Goals BEE in Kcals: Using Current wt Calories/Kcals/Kg 25-30 Kcals Calculated 3308-5320 Protein: Using Current wt Protein g/k-1.2 Monitor renal labs Protein Calculated 54-64 g Fluid: ml per MD Nutritional Problem 2. Problem Problem Altered nutrition related lab values Etiology hx of DM and renal insufficiency Signs/Symptoms: WNL, BUN 56, glucose 137, POC 142 1. Problem Problem Excessive protein intake Etiology EN infusion Signs/Symptoms: current TF regimen provides 150% of estimated protein needs Malnutrition Alert Is there a minimum of two criteria No selected? Query Text:Check all the applicable criteria. A minimum of two criteria are recommended for diagnosis of either severe or non-severe malnutrition. Malnutrition Related to Morbid Obesity Malnutrition related to morbid obesity No Intervention/Recommendation Comments 1. Recommend to modify rate of glucerna 1.2 to 60 ml/hr x 20 hrs, which provides 1440 kcals and 72 g protein, meeting 100% nutrition needs and ~110% protein needs 2. Monitor TF rate, tolerance, wt, skin integrity and labs 3. F/U as high risk in 2-3 days, 03/19-03/20 Expected Outcomes/Goals Expected Outcomes/Goals 1. Pt to meet at least 75% of nutritional needs via nutrition support with tolerance 2. Wt stability, skin to remain intact, labs to approach WNL. Reviewed by Luisa Pillai RD
[2018-03-19] MEDS: Sodium Chloride 0.9% 1,000 ML IV SCH (14:39)
[2018-03-20] MEDS: Sodium Chloride 0.9% 1,000 ML IV SCH (02:35)
[2018-03-20 04:48] LABS: HEMATOCRIT 23.6 % (41.0-60); MEAN CELL VOLUME 85.4 fl (81-100); MEAN CORPUSCULAR HEMOGLOBIN 27.9 pg (27.0-31.0); MEAN CORPUSCULAR HGB CONC 32.7 pg (28.0-36.0); MEAN PLATELET VOLUME 8.3 fl; PLATELET COUNT 290 Th/cmm (150-400); RED BLOOD COUNT 2.77 Mil/cmm (3.80-5.20); RED CELL DISTRIBUTION WIDTH 17.1 % (11.5-20.0); WHITE BLOOD COUNT 7.8 Th/cmm (4.8-10.8)
[2018-03-20 05:09] LABS: HEMOGLOBIN 7.7 gm/dL (12-16)
[2018-03-20 06:12] LABS: BAND NEUTROPHILE 3 % (0-10); EOSINOPHIL 7 % (0-5); LYMPHOCYTE 22 % (20-50); MONOCYTE 4 % (2-10); NEUTROPHILS 64 % (40-80)
[2018-03-20] MEDS: INSULIN ASPART, RECOMBINANT 100 UNITS/ML SUBQ SCH ×2 (07:05→14:47)
--- NOTE | 2018-03-20 09:49 | GI Progress Note ---
Subjective - Review of Systems Service Date: 03/20/18 Subjective: GI NOTE ILENE GT FEEDS. NO OVERT GI BLEEDING. Objective - Results Result Diagrams: 03/20/18 04:20 03/19/18 05:50 Recent Labs: Laboratory Last Values WBC 7.8 Th/cmm (4.8-10.8) 03/20/18 04:20 RBC 2.77 Mil/cmm (3.80-5.20) L 03/20/18 04:20 Hgb 7.7 gm/dL (12-16) L* 03/20/18 04:20 Hct 23.6 % (41.0-60) L 03/20/18 04:20 MCV 85.4 fl (81-100) 03/20/18 04:20 MCH 27.9 pg (27.0-31.0) 03/20/18 04:20 MCHC Differential 32.7 pg (28.0-36.0) 03/20/18 04:20 RDW 17.1 % (11.5-20.0) 03/20/18 04:20 Plt Count 290 Th/cmm (150-400) 03/20/18 04:20 MPV 8.3 fl 03/20/18 04:20 Add Manual Diff YES 03/20/18 04:20 Neutrophils % 63.5 % (40.0-80.0) 03/19/18 05:50 Band Neutrophils % 3 % (0-10) 03/20/18 04:20 Lymphocytes % 24.4 % (20.0-50.0) 03/19/18 05:50 Monocytes % 6.0 % (2.0-10.0) 03/19/18 05:50 Eosinophils % 5.1 % (0.0-5.0) H 03/19/18 05:50 Basophils % 1.0 % (0.0-2.0) 03/19/18 05:50 Neutrophils (Manual) 64 % (40-80) 03/20/18 04:20 Lymphocytes 22 % (20-50) 03/20/18 04:20 Monocytes 4 % (2-10) 03/20/18 04:20 Eosinophils 7 % (0-5) H 03/20/18 04:20 Total Retics Counted 2.5 % (0.5-1.5) H 03/17/18 05:21 Absolute Retic 75.8 Th/cmm 03/17/18 05:21 Corrected Retic Count 1.5 % (0.5-1.5) 03/17/18 05:21 PT 10.4 SECONDS (9.5-11.5) 03/16/18 15:19 INR 1.00 (0.5-1.4) 03/16/18 15:19 PTT (Actin FS) 23.4 SECONDS (26.0-38.0) L 03/16/18 15:19 Sodium 141 mEq/L (136-145) 03/19/18 05:50 Potassium 3.5 mEq/L (3.5-5.1) 03/19/18 05:50 Chloride 105 mEq/L (98-107) 03/19/18 05:50 Carbon Dioxide 28.6 mEq/L (21.0-31.0) 03/19/18 05:50 Anion Gap 10.9 (7.0-16.0) 03/19/18 05:50 BUN 38 mg/dL (7-25) H 03/19/18 05:50 Creatinine 1.1 mg/dL (0.6-1.2) 03/19/18 05:50 Est GFR ( Amer) TNP 03/19/18 05:50 Est GFR (Non-Af Amer) TNP 03/19/18 05:50 BUN/Creatinine Ratio 34.5 03/19/18 05:50 Glucose 146 mg/dL (70-105) H 03/19/18 05:50 POC Glucose 119 MG/DL (70 - 105) H 03/20/18 05:38 Calcium 8.4 mg/dL (8.6-10.3) L 03/19/18 05:50 Iron 35 ug/dL (27-139) 03/17/18 05:21 TIBC 184 ug/dL (250-450) L 03/17/18 05:21 Iron Saturation 19 % (15-55) 03/17/18 05:21 Unsaturated IBC 149 ug/dL (118-369) 03/17/18 05:21 Ferritin 150 ng/mL (15-150) 03/17/18 05:21 Total Bilirubin 0.3 mg/dL (0.3-1.0) 03/17/18 05:21 AST 13 U/L (13-39) 03/17/18 05:21 ALT 10 U/L (7-52) 03/17/18 05:21 Alkaline Phosphatase 74 U/L (34-104) 03/17/18 05:21 Ammonia 55 umol/L (16-53) H 03/19/18 05:50 Lactate Dehydrogenase 200 U/L (140-271) 03/17/18 05:21 B-Natriuretic Peptide 206.0 pg/mL (5.0-100.0) H 03/17/18 05:21 Total Protein 5.8 gm/dL (6.0-8.3) L 03/17/18 05:21 Albumin 2.5 gm/dL (3.7-5.3) L 03/17/18 05:21 Globulin 3.3 gm/dL 03/17/18 05:21 Albumin/Globulin Ratio 0.8 (1.0-1.8) L 03/17/18 05:21 Vitamin B12 1221 pg/mL (232-1245) 03/17/18 05:21 Folic Acid >20.0 ng/mL (>3.0) 03/17/18 05:21 Stool Occult Blood NEGATIVE (NEGATIVE) 03/17/18 17:38 Blood Type O POSITIVE 03/16/18 15:19 Antibody Screen NEGATIVE 03/16/18 15:19 Crossmatch See Detail 03/16/18 15:19 - Physical Exam Vitals and I&O: Vital Signs Temp 98.3 F 03/20/18 08:00 Pulse 85 03/20/18 08:11 Resp 12 03/20/18 08:11 BP 186/83 03/20/18 08:00 Pulse Ox 97 03/20/18 08:11 Intake & Output 03/19/18 03/20/18 03/20/18 18:59 06:59 18:59 Intake Total 1080 954.667 Balance 1080 954.667 Weight (lbs) 53.524 kg 57.425 kg Intake: Intake, IV Amount 954.667 Sodium Chloride 0.9% 1, 954.667 000 ml @ 80 mls/hr IV . [id number] [facility] Rx#:[id number] Oral 0 Tube Feeding 480 Other 600 Other: # Voids 3 2 # Bowel Movements 1 2 Stool Characteristics Soft Soft Formed Formed Weight Source Bedscale Bedscale Active Medications: Current Medications Acetaminophen (Tylenol) 650 mg GT Q4H PRN PRN Reason: Pain Or Fever above 101 Stop: 05/15/18 19:56 Last Admin: 03/17/18 23:16 Dose: 650 mg Albuterol Sulfate (Albuterol 2.5mg/3ml Neb Ud) 2.5 mg HHN Q2HRT PRN PRN Reason: Shortness of Breath or Wheeze Stop: 05/15/18 19:55 Amlodipine Besylate (Norvasc) 10 mg GT DAILY [facility] Stop: 05/16/18 08:59 Last Admin: 03/19/18 08:31 Dose: 10 mg Ascorbic Acid (Vitamin C) 500 mg GT BID [facility] Stop: 05/16/18 08:59 Last Admin: 03/19/18 16:18 Dose: 500 mg Glipizide (Glucotrol) 2.5 mg PO BIDAC [facility] Stop: 05/16/18 07:29 Last Admin: 03/20/18 07:08 Dose: 2.5 mg Guaifenesin (Robitussin) 200 mg GT Q4HR PRN PRN Reason: Cough or Congestion Stop: 05/15/18 19:56 Haloperidol Decanoate (Haldol Dec) 25 mg IM QMONTH [facility] Stop: 06/07/18 08:59 Hydralazine HCl (Apresoline) 10 mg GT TID [facility] Stop: 05/15/18 20:59 Last Admin: 03/19/18 20:48 Dose: 10 mg Sodium Chloride (Nacl 0.9%) 1,000 mls @ 80 mls/hr IV .[id number] [facility] Stop: 05/15/18 19:59 Last Admin: 03/20/18 02:35 Dose: 80 mls/hr Insulin Aspart (Novolog) 0 units SUBQ ACHS [facility]; Protocol Stop: 05/15/18 20:59 Last Admin: 03/20/18 07:05 Dose: Not Given Ipratropium [place] (Atrovent Neb 0.5mg/2.5ml) 0.5 mg HHN Q2HRT PRN PRN Reason: Shortness of Breath or Wheeze Stop: 05/15/18 19:55 Isosorbide Mononitrate (Imdur) 30 mg PO DAILY [facility] Stop: 05/18/18 08:59 Last Admin: 03/19/18 08:30 Dose: 30 mg Mirtazapine (Remeron) 15 mg GT HS ED; Protocol Stop: 05/15/18 20:59 Last Admin: 03/19/18 20:47 Dose: 15 mg Miscellaneous (Vte Chemical Prophylaxis Screen/ Admission) 1 ea [facility] PRN PRN PRN Reason: PROTOCOL Stop: 05/16/18 10:05 Ondansetron HCl (Zofran) 4 mg IV Q8H PRN PRN Reason: Nausea / Vomiting Stop: 05/15/18 19:56 Pantoprazole Sodium (Protonix) 40 mg GT BID ED Stop: 05/16/18 11:59 Last Admin: 03/19/18 16:18 Dose: 40 mg General: No acute distress Neck: Supple Cardiovascular: Regular rate Lungs: Clear to auscultation Abdomen: Bowel sounds, Soft, Other (INTACT GT), no Tender - Procedures Procedures: Procedures Procedure Code Date EGD PLACE GASTROSTOMY TUBE 93093 06/21/17 EXCISION OF ASCENDING COLON, ENDO, DIAGN [id number] 06/21/17 EXCISION OF CECUM, ENDO, DIAGN [id number] 06/21/17 EXCISION OF SIGMOID COLON, ENDO, DIAGN [id number] 06/21/17 EXCISION OF STOMACH, ENDO, DIAGN [id number] 06/21/17 INSERTION OF FEEDING DEVICE INTO STOMACH, PERC APPROACH [id number] 06/21/17 INSERTION OF INFUSION DEV INTO SUP VENA CAVA, PERC APPROACH 84HQ77K 06/21/17 INTRODUCTION OF NUTRITIONAL INTO CENTRAL VEIN, PERC APPROACH [id number] 06/21/17 PARTIAL REMOVAL OF COLON 80920 06/21/17 RESECTION OF RIGHT LARGE INTESTINE, OPEN APPROACH [id number] 06/21/17 RESPIRATORY VENTILATION, LESS THAN 24 CONSECUTIVE HOURS [id number] 06/21/17 TRANSFUSE NONAUT RED BLOOD CELLS IN PERIPH VEIN, PERC [id number] 03/16/18 Assessment/Plan - Assessment Assessment: IMPRESSION: 1. ANEMIA, MULTIFACTORIAL. S/P TRANSFUSION. FOBT NEG. 2. DYSPHAGIA S/P PEG. 3. HX COLON CANCER S/P R HEMICOLECTOMY EARLIER THIS YEAR. RECS: 1. NO NEED TO REPEAT ENDOSCOPIC WORKUP FOR NOW. 2. CONSIDER REPEAT COLONOSCOPY IN 3-4 MONTHS. 3. GT FEEDS ILENE. 4. PROTONIX BID. 5. CONSIDER IV OR PER GT IRON. 6. HEME F/U.
--- NOTE | 2018-03-20 11:16 | Internal Medicine Prog Note ---
Internal Medicine Subjective - Subjective Service Date: 03/20/18 Patient is:: asleep, in bed Per staff patient has:: no adverse event, no episodes of fall Internal Medicine Objective - Results Result Diagrams: 03/20/18 04:20 03/19/18 05:50 Recent Labs: Laboratory Last Values WBC 7.8 Th/cmm (4.8-10.8) 03/20/18 04:20 RBC 2.77 Mil/cmm (3.80-5.20) L 03/20/18 04:20 Hgb 7.7 gm/dL (12-16) L* 03/20/18 04:20 Hct 23.6 % (41.0-60) L 03/20/18 04:20 MCV 85.4 fl (81-100) 03/20/18 04:20 MCH 27.9 pg (27.0-31.0) 03/20/18 04:20 MCHC Differential 32.7 pg (28.0-36.0) 03/20/18 04:20 RDW 17.1 % (11.5-20.0) 03/20/18 04:20 Plt Count 290 Th/cmm (150-400) 03/20/18 04:20 MPV 8.3 fl 03/20/18 04:20 Add Manual Diff YES 03/20/18 04:20 Neutrophils % 63.5 % (40.0-80.0) 03/19/18 05:50 Band Neutrophils % 3 % (0-10) 03/20/18 04:20 Lymphocytes % 24.4 % (20.0-50.0) 03/19/18 05:50 Monocytes % 6.0 % (2.0-10.0) 03/19/18 05:50 Eosinophils % 5.1 % (0.0-5.0) H 03/19/18 05:50 Basophils % 1.0 % (0.0-2.0) 03/19/18 05:50 Neutrophils (Manual) 64 % (40-80) 03/20/18 04:20 Lymphocytes 22 % (20-50) 03/20/18 04:20 Monocytes 4 % (2-10) 03/20/18 04:20 Eosinophils 7 % (0-5) H 03/20/18 04:20 Total Retics Counted 2.5 % (0.5-1.5) H 03/17/18 05:21 Absolute Retic 75.8 Th/cmm 03/17/18 05:21 Corrected Retic Count 1.5 % (0.5-1.5) 03/17/18 05:21 PT 10.4 SECONDS (9.5-11.5) 03/16/18 15:19 INR 1.00 (0.5-1.4) 03/16/18 15:19 PTT (Actin FS) 23.4 SECONDS (26.0-38.0) L 03/16/18 15:19 Sodium 141 mEq/L (136-145) 03/19/18 05:50 Potassium 3.5 mEq/L (3.5-5.1) 03/19/18 05:50 Chloride 105 mEq/L (98-107) 03/19/18 05:50 Carbon Dioxide 28.6 mEq/L (21.0-31.0) 03/19/18 05:50 Anion Gap 10.9 (7.0-16.0) 03/19/18 05:50 BUN 38 mg/dL (7-25) H 03/19/18 05:50 Creatinine 1.1 mg/dL (0.6-1.2) 03/19/18 05:50 Est GFR ( Amer) TNP 03/19/18 05:50 Est GFR (Non-Af Amer) TNP 03/19/18 05:50 BUN/Creatinine Ratio 34.5 03/19/18 05:50 Glucose 146 mg/dL (70-105) H 03/19/18 05:50 POC Glucose 119 MG/DL (70 - 105) H 03/20/18 05:38 Calcium 8.4 mg/dL (8.6-10.3) L 03/19/18 05:50 Iron 35 ug/dL (27-139) 03/17/18 05:21 TIBC 184 ug/dL (250-450) L 03/17/18 05:21 Iron Saturation 19 % (15-55) 03/17/18 05:21 Unsaturated IBC 149 ug/dL (118-369) 03/17/18 05:21 Ferritin 150 ng/mL (15-150) 03/17/18 05:21 Total Bilirubin 0.3 mg/dL (0.3-1.0) 03/17/18 05:21 AST 13 U/L (13-39) 03/17/18 05:21 ALT 10 U/L (7-52) 03/17/18 05:21 Alkaline Phosphatase 74 U/L (34-104) 03/17/18 05:21 Ammonia 55 umol/L (16-53) H 03/19/18 05:50 Lactate Dehydrogenase 200 U/L (140-271) 03/17/18 05:21 B-Natriuretic Peptide 206.0 pg/mL (5.0-100.0) H 03/17/18 05:21 Total Protein 5.8 gm/dL (6.0-8.3) L 03/17/18 05:21 Albumin 2.5 gm/dL (3.7-5.3) L 03/17/18 05:21 Globulin 3.3 gm/dL 03/17/18 05:21 Albumin/Globulin Ratio 0.8 (1.0-1.8) L 03/17/18 05:21 Vitamin B12 1221 pg/mL (232-1245) 03/17/18 05:21 Folic Acid >20.0 ng/mL (>3.0) 03/17/18 05:21 Stool Occult Blood NEGATIVE (NEGATIVE) 03/17/18 17:38 Blood Type O POSITIVE 03/16/18 15:19 Antibody Screen NEGATIVE 03/16/18 15:19 Crossmatch See Detail 03/16/18 15:19 - Physical Exam Vitals and I&O: Vital Signs Temp 98.3 F 03/20/18 08:00 Pulse 85 03/20/18 08:11 Resp 12 03/20/18 08:11 BP 186/83 03/20/18 08:00 Pulse Ox 97 03/20/18 08:11 Intake & Output 03/19/18 03/20/18 03/20/18 18:59 06:59 18:59 Intake Total 1080 954.667 Balance 1080 954.667 Weight (lbs) 118 lb 126 lb 9.6 oz Intake: Intake, IV Amount 954.667 Sodium Chloride 0.9% 1, 954.667 000 ml @ 80 mls/hr IV . [id number] [facility] Rx#:[id number] Oral 0 Tube Feeding 480 Other 600 Other: # Voids 3 2 # Bowel Movements 1 2 Stool Characteristics Soft Soft Formed Formed Weight Source Bedscale Bedscale Active Medications: Current Medications Acetaminophen (Tylenol) 650 mg GT Q4H PRN PRN Reason: Pain Or Fever above 101 Stop: 05/15/18 19:56 Last Admin: 03/17/18 23:16 Dose: 650 mg Albuterol Sulfate (Albuterol 2.5mg/3ml Neb Ud) 2.5 mg HHN Q2HRT PRN PRN Reason: Shortness of Breath or Wheeze Stop: 05/15/18 19:55 Amlodipine Besylate (Norvasc) 10 mg GT DAILY [facility] Stop: 05/16/18 08:59 Last Admin: 03/19/18 08:31 Dose: 10 mg Ascorbic Acid (Vitamin C) 500 mg GT BID [facility] Stop: 05/16/18 08:59 Last Admin: 03/19/18 16:18 Dose: 500 mg Glipizide (Glucotrol) 2.5 mg PO BIDAC [facility] Stop: 05/16/18 07:29 Last Admin: 03/20/18 07:08 Dose: 2.5 mg Guaifenesin (Robitussin) 200 mg GT Q4HR PRN PRN Reason: Cough or Congestion Stop: 05/15/18 19:56 Haloperidol Decanoate (Haldol Dec) 25 mg IM QMONTH [facility] Stop: 06/07/18 08:59 Hydralazine HCl (Apresoline) 10 mg GT TID [facility] Stop: 05/15/18 20:59 Last Admin: 03/19/18 20:48 Dose: 10 mg Sodium Chloride (Nacl 0.9%) 1,000 mls @ 80 mls/hr IV .[id number] [facility] Stop: 05/15/18 19:59 Last Admin: 03/20/18 02:35 Dose: 80 mls/hr Insulin Aspart (Novolog) 0 units SUBQ ACHS [facility]; Protocol Stop: 05/15/18 20:59 Last Admin: 03/20/18 07:05 Dose: Not Given Ipratropium Blunt (Atrovent Neb 0.5mg/2.5ml) 0.5 mg HHN Q2HRT PRN PRN Reason: Shortness of Breath or Wheeze Stop: 05/15/18 19:55 Isosorbide Mononitrate (Imdur) 30 mg PO DAILY ED Stop: 05/18/18 08:59 Last Admin: 03/19/18 08:30 Dose: 30 mg Mirtazapine (Remeron) 15 mg GT HS ED; Protocol Stop: 05/15/18 20:59 Last Admin: 03/19/18 20:47 Dose: 15 mg Miscellaneous (Vte Chemical Prophylaxis Screen/ Admission) 1 ea [facility] PRN PRN PRN Reason: PROTOCOL Stop: 05/16/18 10:05 Ondansetron HCl (Zofran) 4 mg IV Q8H PRN PRN Reason: Nausea / Vomiting Stop: 05/15/18 19:56 Pantoprazole Sodium (Protonix) 40 mg GT BID [facility] Stop: 05/16/18 11:59 Last Admin: 03/19/18 16:18 Dose: 40 mg General: demented, disheveled, thin HEENT: NC/AT, PERRLA, dry oral mucosa, thinning hair, poor dentition Neck: Supple, deformity Lungs: congested, rales Cardiovascular: RRR, Normal S1, Normal S2, with murmur Abdomen: soft, non-tender, thin, +GT, positive bowel sound Extremities: excoriation, ecchymosis, contracture Neurological: lethargic, disorganized - Procedures Procedures: Procedures Procedure Code Date EGD PLACE GASTROSTOMY TUBE 41875 06/21/17 EXCISION OF ASCENDING COLON, ENDO, DIAGN [id number] 06/21/17 EXCISION OF CECUM, ENDO, DIAGN [id number] 06/21/17 EXCISION OF SIGMOID COLON, ENDO, DIAGN [id number] 06/21/17 EXCISION OF STOMACH, ENDO, DIAGN 5FU93EO 06/21/17 INSERTION OF FEEDING DEVICE INTO STOMACH, PERC APPROACH [id number] 06/21/17 INSERTION OF INFUSION DEV INTO SUP VENA CAVA, PERC APPROACH 24FY14V 06/21/17 INTRODUCTION OF NUTRITIONAL INTO CENTRAL VEIN, PERC APPROACH 7J1526Z 06/21/17 PARTIAL REMOVAL OF COLON 81176 06/21/17 RESECTION OF RIGHT LARGE INTESTINE, OPEN APPROACH [id number] 06/21/17 RESPIRATORY VENTILATION, LESS THAN 24 CONSECUTIVE HOURS [id number] 06/21/17 TRANSFUSE NONAUT RED BLOOD CELLS IN PERIPH VEIN, PERC 63215R9 03/16/18 Internal Medicine Assmt/Plan - Assessment Assessment: severe anemia acute renal insufficiency htn dementia chf - Plan Plan: monitor h/h follow up labs in am continue the rest of the orders Nutritional Asmnt/Malnutr-PDOC - Dietary Evaluation Malnutrition Findings (Please click <Entered> for more info): Nutritional Asmnt/Malnutrition Start: 03/17/18 14: 38 Text: Status: Complete Freq: Protocol: Document 03/17/18 14:39 JUSTO (Rec: 03/17/18 14:51 [id number]) Nutritional Asmnt/Malnutrition Patient General Information Nutritional Screening High Risk Consult Diagnosis anemia, dementia, UGI bleed Pertinent Medical Hx/Surgical Hx HTN, DM, CHF, dyslipidemia, dementia, status post UTI, anemia, renal insufficiency/ acute renal failure, PEG/Gtube Subjective Information Received consult for g-tube feeding. Pt resting; visually verified TF formula as Glucerna 1.2, but not running at time of visit. Per nurse note 03/17: EN enfusion is glucerna 1.2 @ 80 cc/hr, turned off at 10:00 am and turned on at 2:00 pm. Per MST assessment, pt's not on HD. Current Diet Order/ Nutrition Support Tube feeding: Glucerna 1.2 @ 80ml/hr x 20 hrs Pertinent Medications Vit C, glucotrol, novolog, remeron, zofran, protonix, Nacl 0.9% Pertinent Labs 03/17: K 3.4, Cl 100, BUN 56, glucose 137, POC 142-153, Ca 8 .7, Alb 2.5 03/16: K 3.3, Cl 97, BUN 63, glulcose 143, POC 127, Ca 8.7 Nutritional Hx/Data Height 5 ft 3 in Height (Calculated Centimeters) 160.0 Current Weight (lbs) 118 lb Weight (Calculated Kilograms) 53.5 Weight (Calculated Grams) 99601.9 Kite Body Weight 115 lb Body Mass Index (BMI) 20.9 Weight Status Approriate GI Symptoms GI Symptoms None Last BM none Skin Integrity/Comment: non-pitting 1+ edema to both hands, non-pitting 2+ edema to both feet, decubitus ulcer to sacrum Estimated Nutritional Goals BEE in Kcals: Using Current wt Calories/Kcals/Kg 25-30 Kcals Calculated 3248-5163 Protein: Using Current wt Protein g/k-1.2 Monitor renal labs Protein Calculated 54-64 g Fluid: ml per MD Nutritional Problem 2. Problem Problem Altered nutrition related lab values Etiology hx of DM and renal insufficiency Signs/Symptoms: WNL, BUN 56, glucose 137, POC 142 1. Problem Problem Excessive protein intake Etiology EN infusion Signs/Symptoms: current TF regimen provides 150% of estimated protein needs Malnutrition Alert Is there a minimum of two criteria No selected? Query Text:Check all the applicable criteria. A minimum of two criteria are recommended for diagnosis of either severe or non-severe malnutrition. Malnutrition Related to Morbid Obesity Malnutrition related to morbid obesity No Intervention/Recommendation Comments 1. Recommend to modify rate of glucerna 1.2 to 60 ml/hr x 20 hrs, which provides 1440 kcals and 72 g protein, meeting 100% nutrition needs and ~110% protein needs 2. Monitor TF rate, tolerance, wt, skin integrity and labs 3. F/U as high risk in 2-3 days, 03/19-03/20 Expected Outcomes/Goals Expected Outcomes/Goals 1. Pt to meet at least 75% of nutritional needs via nutrition support with tolerance 2. Wt stability, skin to remain intact, labs to approach WNL. Reviewed by Luisa Pillai RD
[2018-03-20] MEDS: Multivitamin w/ Minerals Tab GT SCH (11:23)
[2018-03-20] MEDS: Pantoprazole 40 mg/Packet GT SCH (11:23)
[2018-03-20] MEDS ORDERED: Ferrous Sulfate 325 MG TAB PO SCH (17:00)
[2018-03-21 07:10] LABS: FOLIC ACID >20.0 ng/mL (>3.0)
[2018-03-21] MEDS ORDERED: Hydrogel 3 oz Tube TP SCH (09:00)
== END 2018-03-20 15:34 | DRG 243 ==
LOC: ER 14:54 → TELE 16:40
PROVIDERS: ADMIT Internal Medicine; ATTEND Internal Medicine
PROC: 30233N1 Transfusion of Nonautologous Red Blood Cells into Peripheral Vein, Percutaneous Approach (ICD-10-PCS; principal; 2018-03-16)
DX: K20.9 Esophagitis, unspecified (principal); E43 Unspecified severe protein-calorie malnutrition; G93.40 Encephalopathy, unspecified; R53.2 Functional quadriplegia; R13.10 Dysphagia, unspecified; I50.9 Heart failure, unspecified; I11.0 Hypertensive heart disease with heart failure; K92.2 Gastrointestinal hemorrhage, unspecified; D63.8 Anemia in other chronic diseases classified elsewhere; E11.9 Type 2 diabetes mellitus without complications; F03.90 Unspecified dementia, unspecified severity, without behavioral disturbance, psychotic disturbance, mood disturbance, and anxiety; E87.6 Hypokalemia; N28.9 Disorder of kidney and ureter, unspecified; R00.0 Tachycardia, unspecified; I25.2 Old myocardial infarction; E78.5 Hyperlipidemia, unspecified; Z85.038 Personal history of other malignant neoplasm of large intestine; Z93.1 Gastrostomy status; Z79.4 Long term (current) use of insulin; Z68.20 Body mass index [BMI] 20.0-20.9, adult
CPT/HCPCS: 36415-UA; 80048-TC; 80053-TC; 82140-TC; 82270-TC; 82607-90; 82728-90; 82746-90; 82948-90; 83540-90; 83550-90; 83615-TC; 83880-TC; 85007-TC; 85025-TC; 85044-TC; 85610-TC; 85730-TC; 86850-TC; 86900-TC; 86901-TC; 86922-TC; 93005; 93970-TC-50; 94760; J1815; J7030; J7040; P9016; X7704; Z7610

== ENCOUNTER 2018-04-19 23:35 | Inpatient (IN) | payer MEDICAID ==
--- NOTE | 2018-04-20 00:05 | ED Physician Chart ---
ED Chief Complaint/HPI - Patient Information Date Seen:: 04/19/18 Time Seen:: 23:35 Chief Complaint:: ALOC History of Present Illness:: onset x 2 days of ALOC and AMS with abnormal labs today; no report of trauma, LOC, H/As, S/T, neck pain, cough, C/P, SOB, Abd. Pain, A/N/V/D/C, fever, chills , or urinary s/s Allergies:: Allergies Allergy/AdvReac Type Severity Reaction Status Date / Time No Known Allergies Allergy Verified 02/01/18 21:47 Vitals:: Vital Signs - 8 hr 04/19/18 23:35 Temp 97.0 F HR 91 RR 16 BP 151/77 O2 Sat % 99 Historian:: Patient, EMS Review:: Nurse's Note Reviewed, Old Chart Reviewed, EMS run form Reviewed ED Review of Systems - Review of Systems General/Constitutional: Fever, No chills, No weight loss, Weakness, No diaphoresis, No edema, No loss of appetite Skin: No skin lesions, No rash, No bruising Head: No headache, No light-headedness Eyes: No loss of vision, No pain, No diplopia ENT: No earache, No nasal drainage, No sore throat, No tinnitus Neck: No neck pain, No swelling, No thyromegaly, No stiffness, No mass noted Cardio Vascular: No chest pain, No palpitations, No PND, No orthopnea, No edema Pulmonary: SOB, Cough, No sputum, Wheezing GI: No nausea, No vomiting, No diarrhea, No pain, No melena, No hematochezia, No constipation, No hematemesis G/U: No dysuria, No frequency, No hematuria Melon Packer: No vaginal discharge, No abnormal vaginal bleed, No contraction Musculoskeletal: No bone or joint pain, No back pain, No muscle pain Endocrine: No polyuria, No polydipsia Psychiatric: No prior psych history, No depression, No anxiety, No suicidal ideation, No homicidal ideation, No auditory hallucination, No visual hallucination Hematopoietic: No bruising, No lymphadenopathy Allergic/Immuno: No urticaria, No angioedema Neurological: No syncope, No focal symptoms, Weakness, No paresthesia, No headache, No seizure, No dizziness, Confusion, No vertigo ED Past Medical History - Past Medical History Obtainable: Yes Past Medical History: HTN, DM, CAD, Asthma/COPD, Dyslipidemia, PUD/GERD, Dementia Family History: Diabetes Melitus, HTN Social History: Non Smoker, No Alcohol, No Drug Use, Single, Care Facility Surgical History: None Psychiatricy History: Dementia Medication: Reviewed Family Medical History - Family Member Mother History Unknown: Yes Ethnicity: Unknown Living Status: Unknown Hx Family Cancer: (UNKNOWN) Hx Family Coronary Artery Disease: (UNKNOWN) Hx Family Congestive Heart Failure: (UNKNOWN) Hx Family Hypertension: (UNKNOWN) Hx Family Stroke: (UNKNOWN) Hx Family Diabetes: (UNKNOWN) Hx Family Seizures: (UNKNOWN) Hx Family Dementia: (UNKNOWN) Hx Family AIDS: (UNKNOWN) Hx Family HIV: No Hx Family COPD: (UNKNOWN) Hx Family Hepatitis: (UNKNOWN) Hx Family Psychiatric Problems: (UNKNOWN) Hx Family Tuberculosis: (UNKNOWN) ED Physical Exam - Physical Examination General/Constitutional: Awake, Well-developed, well-nourished, Alert, No distress, GCS 15, Non-toxic appearing, Ambulatory Head: Atraumatic Eyes: Lids, conjuctiva normal, PERRL, EOMI Skin: Nl inspection, No rash, No skin lesions, No ecchymosis, Well hydrated, No lymphadenopathy ENMT: External ears, nose nl, TM canals nl, Nasal exam nl, Lips, teeth, gums nl , Oropharynx nl, Tonsils nl Neck: Nontender, Full ROM w/o pain, No JVD, No nuchal rigidity, No bruit, No mass, No stridor Respiratory: Nl effort/Exclusion, Clear to Auscultation, No Wheeze/Rhonchi/Rales Cardio Vascular: RRR, No murmur, gallop, rubs, NL S1 S2, Carotid/Femoral/Distal pulses equal bilaterally GI: No tenderness/rebounding/guarding, No organomegaly, No hernia, Normal BS's, Nondistended, No mass/bruits, No McBurney tenderness Other GI comments:: no pulsatile masses; Rectal Exam: Stool is + for occult blood : No CVA tenderness Extremities: No tenderness or effusion, Full ROM, normal strength in all extremities, No edema, Normal digits & nails Neuro/Psych: Alert/oriented, DTR's symmetric, Normal sensory exam, Normal motor strength, Judgement/insight normal, Mood normal, Normal gait, No focal deficits Misc: Normal back, No paraspinal tenderness ED Labs/Radiology/EKG Results - Lab Results Comments:: Reviewed - Radiology Results Comments:: NAD - EKG Interpretations EKG Time:: 00:31 Rate & Rhythm: 93; NSR Comments:: inverted T-Waves; non-specific st-t changes ED Septic Shock - . Is Septic Shock (SBP<90, OR Lactate>4 mmol\L) present?: No - <6hrs of presentation: Vital Signs: Vital Signs - 8 hr 04/19/18 23:35 Temp 97.0 F HR 91 RR 16 BP 151/77 O2 Sat % 99 ED Reassessment (Disposition) - Reassessment Reassessment Condition:: Improved - Diagnosis Diagnosis:: Anemia; ALOC; AMS; Abnormal Labs; GI Bleed; Myocardial Ischemia; Dehydration; Pre-Renal Azotemia - Aftercare/Follow up Instructions Aftercare/Follow-Up Instructions:: Counseled pt regarding lab results/diagnosis & need follow up, Counseled pt & family regarding lab results/diagnosis & need follow up - Patient Disposition Discharge/Transfer:: Acute Care w/in this hosp Accepting Physician:: Dr. Tobias Time Called:: 114 Time Responded:: 01:15 Admitted to:: Telemetry Spoke to:: Dr. Tobias Admitting Medical Physician:: Dr. Tobias Condition at Disposition:: Stable, Improved
[2018-04-20 01:10] LABS: ALBUMIN 3.3 gm/dL (3.7-5.3); ALKALINE PHOSPHATASE 62 U/L (34-104); ANION GAP 14.3 (7.0-16.0); BILIRUBIN,TOTAL 0.2 mg/dL (0.3-1.0); BUN - UREA NITROGEN 76 mg/dL (7-25); CALCIUM SERUM 9.5 mg/dL (8.6-10.3); CARBON DIOXIDE 31.8 mEq/L (21.0-31.0); CHLORIDE 95 mEq/L (98-107); CREATININE - SERUM 1.4 mg/dL (0.6-1.2); CREATININE KINASE 582 U/L (30-223); GLUCOSE 188 mg/dL (70-105); POTASSIUM SERUM 4.1 mEq/L (3.5-5.1); SGOT 26 U/L (13-39); SGPT/ALT 15 U/L (7-52); SODIUM SERUM 137 mEq/L (136-145); TOTAL PROTEIN,SERUM 6.6 gm/dL (6.0-8.3)
[2018-04-20 01:16] LABS: MEAN CELL VOLUME 84.7 fl (81-100); MEAN CORPUSCULAR HEMOGLOBIN 27.5 pg (27.0-31.0); MEAN CORPUSCULAR HGB CONC 32.5 pg (28.0-36.0); PLATELET COUNT 82 Th/cmm (150-400); RED BLOOD COUNT 2.45 Mil/cmm (3.80-5.20); RED CELL DISTRIBUTION WIDTH 17.7 % (11.5-20.0); WHITE BLOOD COUNT 8.9 Th/cmm (4.8-10.8)
[2018-04-20 01:20] LABS: HEMATOCRIT 20.8 % (41.0-60); HEMOGLOBIN 6.7 gm/dL (12-16)
[2018-04-20 01:24] LABS: TROP I 0.08 ng/mL (0.01-0.05)
[2018-04-20 01:45] LABS: INR 0.94 (0.5-1.4); PROTHROMBIN TIME (TEST) 9.8 SECONDS (9.5-11.5)
[2018-04-20 01:47] LABS: BAND NEUTROPHILE 2 % (0-10); LYMPHOCYTE 20 % (20-50); MONOCYTE 6 % (2-10); NEUTROPHILS 72 % (40-80); PLATELET ESTIMATE DECREASED PLATELETS (NORMAL)
[2018-04-20] MEDS ORDERED: Influenza Vaccine (65 yr & older) 0.5 ml Syr IM ONE (04:49)
[2018-04-20 07:30] VITALS: BP 163/79
[2018-04-20] MEDS ORDERED: Albuterol Nebulizer 2.5mg/3mL HHN PRN (08:36)
[2018-04-20] MEDS ORDERED: guaiFENesin 200 MG/10 ML UDC GT PRN (08:36)
[2018-04-20] MEDS ORDERED: Ipratropium Neb 0.5 mg/2.5 mL UD HHN PRN (08:36)
[2018-04-20] MEDS ORDERED: Non-Formulary Item 1 EA (Omeprazole [Omeprazole] 40 MG) GT SCH (09:00)
--- NOTE | 2018-04-20 09:15 | Diagnostic Imaging Report ---
CHEST X-RAY: AP view INDICATION: pain COMPARISON: 03/01/2018 and multiple chest x-rays dating back to 11/18/2017 FINDINGS: There is elevation of the bilateral hemidiaphragms. Skinfold is seen along the left hemithorax. The patient is mildly rotated. There is no focal consolidation or pleural effusions heart size is normal. Mild tortuous aorta is noted atherosclerosis spine are noted. Degenerative changes of the left humeral head are noted with possible old trauma. IMPRESSION: No focal consolidation identified. Mild tortuous aorta with atherosclerotic vascular disease.
[2018-04-20] MEDS: Ferrous Sulfate 300 MG/5 ML UDC PO SCH (10:32)
[2018-04-20] MEDS: Multivitamin w/ Minerals Tab GT SCH (10:32)
[2018-04-20] MEDS ORDERED: INSULIN ASPART, RECOMBINANT 100 UNITS/ML SUBQ SCH (11:30)
--- NOTE | 2018-04-20 14:38 | History & Physical ---
ADMIT DATE: 04/20/2018 CHIEF COMPLAINT: Low hemoglobin. HISTORY OF PRESENT ILLNESS: This is a 77-year-old [place] female under my service, history of hypertension, diabetes, dementia, malnutrition, congestive heart failure, admitted through the ER with lab results hemoglobin 6. The patient evaluated in the ER and given 2 units blood transfusion, admitted for further management. Occult blood was also positive. PAST MEDICAL HISTORY: As mentioned in history present illness. PAST SURGICAL HISTORY: Positive G-tube. ALLERGIES: No known drug allergies. MEDICATIONS: The patient is on Tylenol, Norvasc, vitamin C, clonidine, Colace, iron, glipizide and insulin sliding scale, Haldol, hydralazine, Isordil, multivitamin, omeprazole. FAMILY HISTORY: Noncontributory. SOCIAL HISTORY: The patient is a assisted patient requiring 24-hour total care. REVIEW OF SYSTEMS: This is limited secondary to the pain. We will try to obtain more detailed review of systems at a later date by talking to family members, ____ will try to get more information from nursing staff at [facility], #[phone]. PHYSICAL EXAMINATION: VITAL SIGNS: Blood pressure 160/70, respiration 18, pulse 86, temperature ____. GENERAL: Elderly female, appears chronically ill. NECK: Supple. No mass. LUNGS: Equal breath sounds with few rhonchi. HEART: Regular rate and rhythm with systolic ejection murmur. ABDOMEN: Soft, globular. EXTREMITIES: Positive excoriation contractures. NEUROLOGIC: Limited. LABORATORY DATA: WBC 8, hemoglobin 6.7 and platelets 82. Sodium 137, potassium 4.1, BUN 76, creatinine 1.4, blood sugar 188. Positive occult blood. ASSESSMENT AND PLAN: Gastrointestinal bleeding, severe anemia, dehydration, chronic renal insufficiency, hypertension, diabetes, hypercholesterolemia, dementia, malnutrition, congestive heart failure. Continue the patient on gentle IV rehydration for blood transfusion, we will refer the patient to GI as well as Hematology. Continue with supportive care. We will continue to monitor the patient closely. JOB# [id number]
[2018-04-20] MEDS: D5-0.45NS 1,000 ML IV SCH (14:58)
[2018-04-20] MEDS: INSULIN ASPART, RECOMBINANT 100 UNITS/ML SUBQ SCH ×2 (16:21→21:30)
[2018-04-20 16:57] LABS: % BASOPHILS 0.3 % (0.0-2.0); % EOSINOPHILS 2.1 % (0.0-5.0); % LYMPHOCYTES 16.4 % (20.0-50.0); % MONOCYTES 3.6 % (2.0-10.0); % NEUTROPHILS 77.6 % (40.0-80.0); EOSINOPHILE ABSOLUTE 0.3 Th/cmm (0.1-0.4); HEMATOCRIT 28.6 % (41.0-60); HEMOGLOBIN 9.6 gm/dL (12-16); MEAN CELL VOLUME 85.1 fl (81-100); MEAN CORPUSCULAR HEMOGLOBIN 28.7 pg (27.0-31.0); MEAN CORPUSCULAR HGB CONC 33.7 pg (28.0-36.0); MEAN PLATELET VOLUME 8.9 fl; MONOCYTE ABSOLUTE 0.4 Th/cmm (0.3-1.0); NEUTROPHILE ABSOLUTE 9.6 Th/cmm (1.8-8.0); PLATELET COUNT 278 Th/cmm (150-400); RED BLOOD COUNT 3.36 Mil/cmm (3.80-5.20); RED CELL DISTRIBUTION WIDTH 16.1 % (11.5-20.0); WHITE BLOOD COUNT 12.3 Th/cmm (4.8-10.8)
[2018-04-20 18:17] LABS: URINE SOURCE CLEAN C
[2018-04-20 18:20] LABS: URINE BILIRUBIN NEGATIVE (NEGATIVE); URINE BLOOD TRACE (NEGATIVE); URINE GLUCOSE (UA) NEGATIVE (NEGATIVE); URINE KETONE NEGATIVE (NEGATIVE); URINE LEUKOCYTE ESTERASE NEGATIVE (NEGATIVE); URINE MICROSCOPIC INDICATED? YES; URINE NITRATE NEGATIVE (NEGATIVE); URINE PROTEIN >=300 mg/dL (NEGATIVE); URINE UROBILINOGEN 0.2 E.U./dL (0.2 - 1.0)
[2018-04-20 18:45] LABS: URINE BACTERIA MANY /hpf (NONE SEEN); URINE CLARITY HAZY (CLEAR); URINE COLOR YELLOW; URINE EPITHELIAL CELLS FEW /lpf (FEW); URINE RBC 0-2 /hpf (0-5)
[2018-04-21 06:34] LABS: % BASOPHILS 0.5 % (0.0-2.0); % EOSINOPHILS 2.3 % (0.0-5.0); % LYMPHOCYTES 21.7 % (20.0-50.0); % MONOCYTES 6.5 % (2.0-10.0); EOSINOPHILE ABSOLUTE 0.2 Th/cmm (0.1-0.4); HEMATOCRIT 28.1 % (41.0-60); HEMOGLOBIN 9.8 gm/dL (12-16); MEAN CELL VOLUME 83.5 fl (81-100); MEAN CORPUSCULAR HGB CONC 34.7 pg (28.0-36.0); MEAN PLATELET VOLUME 7.8 fl; MONOCYTE ABSOLUTE 0.6 Th/cmm (0.3-1.0); NEUTROPHILE ABSOLUTE 6.2 Th/cmm (1.8-8.0); PLATELET COUNT 329 Th/cmm (150-400); RED BLOOD COUNT 3.36 Mil/cmm (3.80-5.20)
[2018-04-21 06:45] LABS: ALBUMIN 3.1 gm/dL (3.7-5.3); ALKALINE PHOSPHATASE 69 U/L (34-104); BILIRUBIN,TOTAL 0.3 mg/dL (0.3-1.0); BUN - UREA NITROGEN 67 mg/dL (7-25); CALCIUM SERUM 9.2 mg/dL (8.6-10.3); CARBON DIOXIDE 32.5 mEq/L (21.0-31.0); CHLORIDE 99 mEq/L (98-107); CREATININE - SERUM 1.6 mg/dL (0.6-1.2); GLUCOSE 122 mg/dL (70-105); MAGNESIUM 2.4 mg/dL (1.9-2.7); POTASSIUM SERUM 3.5 mEq/L (3.5-5.1); SGOT 25 U/L (13-39); SGPT/ALT 15 U/L (7-52); SODIUM SERUM 140 mEq/L (136-145); TOTAL PROTEIN,SERUM 6.1 gm/dL (6.0-8.3)
[2018-04-21] MEDS: INSULIN ASPART, RECOMBINANT 100 UNITS/ML SUBQ SCH ×4 (07:06→20:39)
[2018-04-21] MEDS: D5-0.45NS 1,000 ML IV SCH (07:07)
--- NOTE | 2018-04-21 08:16 | GI Progress Note ---
Subjective - Review of Systems Service Date: 04/21/18 Subjective: Pt very well known to our service. Seen frequently for chronic anemia, and now re-admitted with hgb 6.7. As per RN, has not had BM here but had FOB positive in ER. She is non verbal. Objective - Results Result Diagrams: 04/21/18 06:12 04/21/18 06:12 Recent Labs: Laboratory Last Values WBC 9.0 Th/cmm (4.8-10.8) D 04/21/18 06:12 RBC 3.36 Mil/cmm (3.80-5.20) L 04/21/18 06:12 Hgb 9.8 gm/dL (12-16) L 04/21/18 06:12 Hct 28.1 % (41.0-60) L 04/21/18 06:12 MCV 83.5 fl (81-100) 04/21/18 06:12 MCH 29.0 pg (27.0-31.0) 04/21/18 06:12 MCHC Differential 34.7 pg (28.0-36.0) 04/21/18 06:12 RDW 16.0 % (11.5-20.0) 04/21/18 06:12 Plt Count 329 Th/cmm (150-400) 04/21/18 06:12 MPV 7.8 fl 04/21/18 06:12 Add Manual Diff YES 04/19/18 00:45 Neutrophils % 69.0 % (40.0-80.0) 04/21/18 06:12 Band Neutrophils % 2 % (0-10) 04/19/18 00:45 Lymphocytes % 21.7 % (20.0-50.0) 04/21/18 06:12 Monocytes % 6.5 % (2.0-10.0) 04/21/18 06:12 Eosinophils % 2.3 % (0.0-5.0) 04/21/18 06:12 Basophils % 0.5 % (0.0-2.0) 04/21/18 06:12 Neutrophils (Manual) 72 % (40-80) 04/19/18 00:45 Lymphocytes 20 % (20-50) 04/19/18 00:45 Monocytes 6 % (2-10) 04/19/18 00:45 Platelet Estimate DECREASED PLATELETS (NORMAL) 04/19/18 00:45 PT 9.8 SECONDS (9.5-11.5) 04/19/18 01:25 INR 0.94 (0.5-1.4) 04/19/18 01:25 PTT (Actin FS) 18.3 SECONDS (26.0-38.0) L 04/19/18 01:25 Sodium 140 mEq/L (136-145) 04/21/18 06:12 Potassium 3.5 mEq/L (3.5-5.1) 04/21/18 06:12 Chloride 99 mEq/L (98-107) 04/21/18 06:12 Carbon Dioxide 32.5 mEq/L (21.0-31.0) H 04/21/18 06:12 Anion Gap 12.0 (7.0-16.0) 04/21/18 06:12 BUN 67 mg/dL (7-25) H 04/21/18 06:12 Creatinine 1.6 mg/dL (0.6-1.2) H 04/21/18 06:12 Est GFR ( Amer) TNP 04/21/18 06:12 Est GFR (Non-Af Amer) TNP 04/21/18 06:12 BUN/Creatinine Ratio 41.9 04/21/18 06:12 Glucose 122 mg/dL (70-105) H 04/21/18 06:12 POC Glucose 121 MG/DL (70 - 105) H 04/21/18 06:10 Whole Bld Lactic Acid 0.89 mmol/L (0.60-1.99) 04/19/18 00:45 Calcium 9.2 mg/dL (8.6-10.3) 04/21/18 06:12 Magnesium 2.4 mg/dL (1.9-2.7) 04/21/18 06:12 Total Bilirubin 0.3 mg/dL (0.3-1.0) 04/21/18 06:12 AST 25 U/L (13-39) 04/21/18 06:12 ALT 15 U/L (7-52) 04/21/18 06:12 Alkaline Phosphatase 69 U/L (34-104) 04/21/18 06:12 Creatine Kinase 582 U/L (30-223) H 04/19/18 00:45 CK-MB (CK-2) 11.4 ng/mL (0.6-6.3) H 04/19/18 00:45 Troponin I 0.08 ng/mL (0.01-0.05) H* D 04/19/18 00:45 Total Protein 6.1 gm/dL (6.0-8.3) 04/21/18 06:12 Albumin 3.1 gm/dL (3.7-5.3) L 04/21/18 06:12 Globulin 3.0 gm/dL 04/21/18 06:12 Albumin/Globulin Ratio 1.0 (1.0-1.8) 04/21/18 06:12 TSH 2.19 uIU/ml (0.34-5.60) 04/21/18 06:12 Urine Source CLEAN C 04/20/18 18:00 Urine Color YELLOW 04/20/18 18:00 Urine Clarity HAZY (CLEAR) 04/20/18 18:00 Urine pH 7.0 (4.6 - 8.0) 04/20/18 18:00 Ur Specific [place] 1.015 (1.005-1.030) 04/20/18 18:00 Urine Protein >=300 mg/dL (NEGATIVE) 04/20/18 18:00 Urine Glucose (UA) NEGATIVE mg/dL (NEGATIVE) 04/20/18 18:00 Urine Ketones NEGATIVE mg/dL (NEGATIVE) 04/20/18 18:00 Urine Blood TRACE (NEGATIVE) 04/20/18 18:00 Urine Nitrate NEGATIVE (NEGATIVE) 04/20/18 18:00 Urine Bilirubin NEGATIVE (NEGATIVE) 04/20/18 18:00 Urine Urobilinogen 0.2 E.U./dL (0.2 - 1.0) 04/20/18 18:00 Ur Leukocyte Esterase NEGATIVE (NEGATIVE) 04/20/18 18:00 Urine RBC 0-2 /hpf (0-5) 04/20/18 18:00 Urine WBC 2-5 /hpf (0-5) 04/20/18 18:00 Ur Epithelial Cells FEW /lpf (FEW) 04/20/18 18:00 Urine Bacteria MANY /hpf (NONE SEEN) H 04/20/18 18:00 Stool Occult Blood POSITIVE (NEGATIVE) H 04/20/18 02:30 Blood Type O POSITIVE 04/20/18 00:45 Antibody Screen NEGATIVE 04/20/18 00:45 Crossmatch See Detail 04/20/18 00:45 - Physical Exam Vitals and I&O: Vital Signs Temp 98.0 F 04/21/18 08:09 Pulse 93 04/21/18 08:09 Resp 17 04/21/18 08:09 BP 159/74 04/21/18 08:09 Pulse Ox 97 04/21/18 08:09 Intake & Output 04/20/18 04/21/18 04/21/18 18:59 06:59 18:59 Intake Total 0 300 969 Balance 0 300 969 Weight (lbs) 51.71 kg 55.565 kg Intake: Intake, IV Amount 969 D5-0.45NS 1,000 ml @ 60 969 mls/hr IV .[id number] [facility] Rx #:[id number] Oral 0 Other 300 Other: # Voids 3 2 # Bowel Movements 0 0 Stool Characteristics Soft Soft Formed Formed Weight Source Bedscale Bedscale Active Medications: Current Medications Acetaminophen (Tylenol) 650 mg GT Q4H PRN PRN Reason: Pain Or Fever above 101 Stop: 06/19/18 08:35 Albuterol Sulfate (Albuterol 2.5mg/3ml Neb Ud) 2.5 mg HHN Q4HR PRN PRN Reason: Shortness of Breath or Wheeze Stop: 06/19/18 08:35 Amlodipine Besylate (Norvasc) 10 mg GT DAILY [facility] Stop: 06/19/18 08:59 Last Admin: 04/20/18 10:30 Dose: 10 mg Ascorbic Acid (Vitamin C) 500 mg GT BID [facility] Stop: 06/19/18 08:59 Last Admin: 04/20/18 16:30 Dose: 500 mg Docusate Sodium (Colace) 100 mg PO BID [facility] Stop: 06/19/18 08:59 Last Admin: 04/20/18 16:30 Dose: 100 mg Ferrous Sulfate (Iron) 330 mg PO DAILY [facility] Stop: 06/19/18 08:59 Last Admin: 04/20/18 10:32 Dose: 330 mg Glipizide (Glucotrol) 2.5 mg GT BIDAC [facility] Stop: 06/19/18 16:29 Last Admin: 04/20/18 16:30 Dose: 2.5 mg Guaifenesin (Robitussin) 200 mg GT Q4HR PRN PRN Reason: Cough or Congestion Stop: 06/19/18 08:35 Haloperidol Decanoate (Haldol Dec) 25 mg IM QMONTH [facility] [place]; Protocol Stop: 06/19/18 08:44 Last Admin: 04/20/18 14:12 Dose: 25 mg Hydralazine HCl (Apresoline) 20 mg GT TID [facility] Stop: 06/19/18 08:59 Last Admin: 04/20/18 21:04 Dose: 20 mg Dextrose/Sodium Chloride (D5-0.45ns) 1,000 mls @ 60 mls/hr IV .[id number] [facility] Stop: 06/19/18 14:29 Last Admin: 04/21/18 07:07 Dose: 60 mls/hr Insulin Aspart (Novolog) 0 units SUBQ ACHS [facility]; Protocol Stop: 06/19/18 11:29 Last Admin: 04/21/18 07:06 Dose: Not Given Ipratropium [place] (Atrovent Neb 0.5mg/2.5ml) 0.5 mg HHN Q2HRT PRN PRN Reason: Shortness of Breath or Wheeze Stop: 06/19/18 08:35 Isosorbide Dinitrate (Isordil) 10 mg PO DAILY [facility] [place] Stop: 06/19/18 10:59 Last Admin: 04/20/18 10:31 Dose: 10 mg Mirtazapine (Remeron) 15 mg GT HS [facility]; Protocol Stop: 06/19/18 20:59 Last Admin: 04/20/18 21:03 Dose: 15 mg Pantoprazole Sodium (Protonix) 40 mg PO DAILY [facility] [place] Stop: 06/20/18 08:59 Zinc Sulfate (Zinc Sulfate) 220 mg GT DAILY [facility] Stop: 06/19/18 08:59 Last Admin: 04/20/18 10:31 Dose: 220 mg General: Alert HEENT: Atraumatic Neck: Supple Cardiovascular: Regular rate Abdomen: Bowel sounds, Soft, Other (g tube c/d/i), no Tender, no Hepatomegaly, no Distended, no Rebound, no Mass Extremities: no Clubbing Neurological: no Normal gait - Procedures Procedures: Procedures Procedure Code Date EGD PLACE GASTROSTOMY TUBE 58403 06/21/17 EXCISION OF ASCENDING COLON, ENDO, DIAGN [id number] 06/21/17 EXCISION OF CECUM, ENDO, DIAGN 3GBO5ND 06/21/17 EXCISION OF SIGMOID COLON, ENDO, DIAGN [id number] 06/21/17 EXCISION OF STOMACH, ENDO, DIAGN [id number] 06/21/17 INSERTION OF FEEDING DEVICE INTO STOMACH, PERC APPROACH 2SD09AA 06/21/17 INSERTION OF INFUSION DEV INTO SUP VENA CAVA, PERC APPROACH 18EL67Z 06/21/17 INTRODUCTION OF NUTRITIONAL INTO CENTRAL VEIN, PERC APPROACH 7U4270C 06/21/17 PARTIAL REMOVAL OF COLON 48761 06/21/17 RESECTION OF RIGHT LARGE INTESTINE, OPEN APPROACH 2RFI3XB 06/21/17 RESPIRATORY VENTILATION, LESS THAN 24 CONSECUTIVE HOURS 6L9598U 06/21/17 TRANSFUSE NONAUT RED BLOOD CELLS IN PERIPH VEIN, PERC 06174P8 03/16/18 Assessment/Plan - Assessment Assessment: # Chronic anemia # Dementia # Dysphagia with G tube # History of colon cancer s/p R hemicolectomy This pt's baseline hgb trends from 7-8, and she has had an extensive workup for this including multiple EGDs and colonoscopy this year. She did have a large cancerous polyp in the cecum, and has since had a R elisa colectomy. At this point, further endoscopy should be reserved for active bleeding. FOB should not be performed on this patient as she is on chronic iron therapy (and FOB will ALWAYS be positive). Plan: - ppi daily - reserve EGD unless she is having active melena (see above, she has had multiple endoscopies already) - cont tube feeding - cont iron therapy - recommend against further FOB tests, see above - trend hgb, transfuse to keep > 7 - hematology follow up (this workup has been done in the past as well)
[2018-04-21] MEDS: Pantoprazole 40 mg EC Tab PO SCH (08:35)
[2018-04-21] MEDS: Ferrous Sulfate 300 MG/5 ML UDC PO SCH (08:36)
[2018-04-21] MEDS: Multivitamin w/ Minerals Tab GT SCH (08:36)
--- NOTE | 2018-04-21 15:03 | Internal Medicine Prog Note ---
Internal Medicine Subjective - Subjective Patient seen and examined:: with staff, chart reviewed Patient is:: asleep, interactive, in bed, agitated, confused Patient Complaints of:: congestion, weight loss Per staff patient has:: no adverse event, no episodes of fall, agitated, combative, tolerating meds Internal Medicine Objective - Results Result Diagrams: 04/21/18 06:12 04/21/18 06:12 Recent Labs: Laboratory Last Values WBC 9.0 Th/cmm (4.8-10.8) D 04/21/18 06:12 RBC 3.36 Mil/cmm (3.80-5.20) L 04/21/18 06:12 Hgb 9.8 gm/dL (12-16) L 04/21/18 06:12 Hct 28.1 % (41.0-60) L 04/21/18 06:12 MCV 83.5 fl (81-100) 04/21/18 06:12 MCH 29.0 pg (27.0-31.0) 04/21/18 06:12 MCHC Differential 34.7 pg (28.0-36.0) 04/21/18 06:12 RDW 16.0 % (11.5-20.0) 04/21/18 06:12 Plt Count 329 Th/cmm (150-400) 04/21/18 06:12 MPV 7.8 fl 04/21/18 06:12 Add Manual Diff YES 04/19/18 00:45 Neutrophils % 69.0 % (40.0-80.0) 04/21/18 06:12 Band Neutrophils % 2 % (0-10) 04/19/18 00:45 Lymphocytes % 21.7 % (20.0-50.0) 04/21/18 06:12 Monocytes % 6.5 % (2.0-10.0) 04/21/18 06:12 Eosinophils % 2.3 % (0.0-5.0) 04/21/18 06:12 Basophils % 0.5 % (0.0-2.0) 04/21/18 06:12 Neutrophils (Manual) 72 % (40-80) 04/19/18 00:45 Lymphocytes 20 % (20-50) 04/19/18 00:45 Monocytes 6 % (2-10) 04/19/18 00:45 Platelet Estimate DECREASED PLATELETS (NORMAL) 04/19/18 00:45 PT 9.8 SECONDS (9.5-11.5) 04/19/18 01:25 INR 0.94 (0.5-1.4) 04/19/18 01:25 PTT (Actin FS) 18.3 SECONDS (26.0-38.0) L 04/19/18 01:25 Sodium 140 mEq/L (136-145) 04/21/18 06:12 Potassium 3.5 mEq/L (3.5-5.1) 04/21/18 06:12 Chloride 99 mEq/L (98-107) 04/21/18 06:12 Carbon Dioxide 32.5 mEq/L (21.0-31.0) H 04/21/18 06:12 Anion Gap 12.0 (7.0-16.0) 04/21/18 06:12 BUN 67 mg/dL (7-25) H 04/21/18 06:12 Creatinine 1.6 mg/dL (0.6-1.2) H 04/21/18 06:12 Est GFR ( Amer) TNP 04/21/18 06:12 Est GFR (Non-Af Amer) TNP 04/21/18 06:12 BUN/Creatinine Ratio 41.9 04/21/18 06:12 Glucose 122 mg/dL (70-105) H 04/21/18 06:12 POC Glucose 77 MG/DL (70 - 105) 04/21/18 13:01 Whole Bld Lactic Acid 0.89 mmol/L (0.60-1.99) 04/19/18 00:45 Calcium 9.2 mg/dL (8.6-10.3) 04/21/18 06:12 Magnesium 2.4 mg/dL (1.9-2.7) 04/21/18 06:12 Total Bilirubin 0.3 mg/dL (0.3-1.0) 04/21/18 06:12 AST 25 U/L (13-39) 04/21/18 06:12 ALT 15 U/L (7-52) 04/21/18 06:12 Alkaline Phosphatase 69 U/L (34-104) 04/21/18 06:12 Creatine Kinase 582 U/L (30-223) H 04/19/18 00:45 CK-MB (CK-2) 11.4 ng/mL (0.6-6.3) H 04/19/18 00:45 Troponin I 0.08 ng/mL (0.01-0.05) H* D 04/19/18 00:45 Total Protein 6.1 gm/dL (6.0-8.3) 04/21/18 06:12 Albumin 3.1 gm/dL (3.7-5.3) L 04/21/18 06:12 Globulin 3.0 gm/dL 04/21/18 06:12 Albumin/Globulin Ratio 1.0 (1.0-1.8) 04/21/18 06:12 TSH 2.19 uIU/ml (0.34-5.60) 04/21/18 06:12 Urine Source CLEAN C 04/20/18 18:00 Urine Color YELLOW 04/20/18 18:00 Urine Clarity HAZY (CLEAR) 04/20/18 18:00 Urine pH 7.0 (4.6 - 8.0) 04/20/18 18:00 Ur Specific [place] 1.015 (1.005-1.030) 04/20/18 18:00 Urine Protein >=300 mg/dL (NEGATIVE) 04/20/18 18:00 Urine Glucose (UA) NEGATIVE mg/dL (NEGATIVE) 04/20/18 18:00 Urine Ketones NEGATIVE mg/dL (NEGATIVE) 04/20/18 18:00 Urine Blood TRACE (NEGATIVE) 04/20/18 18:00 Urine Nitrate NEGATIVE (NEGATIVE) 04/20/18 18:00 Urine Bilirubin NEGATIVE (NEGATIVE) 04/20/18 18:00 Urine Urobilinogen 0.2 E.U./dL (0.2 - 1.0) 04/20/18 18:00 Ur Leukocyte Esterase NEGATIVE (NEGATIVE) 04/20/18 18:00 Urine RBC 0-2 /hpf (0-5) 04/20/18 18:00 Urine WBC 2-5 /hpf (0-5) 04/20/18 18:00 Ur Epithelial Cells FEW /lpf (FEW) 04/20/18 18:00 Urine Bacteria MANY /hpf (NONE SEEN) H 04/20/18 18:00 Stool Occult Blood POSITIVE (NEGATIVE) H 04/20/18 02:30 Blood Type O POSITIVE 04/20/18 00:45 Antibody Screen NEGATIVE 04/20/18 00:45 Crossmatch See Detail 04/20/18 00:45 - Physical Exam Vitals and I&O: Vital Signs Temp 98.2 F 04/21/18 11:17 Pulse 90 04/21/18 14:37 Resp 17 04/21/18 11:17 BP 161/81 04/21/18 14:37 Pulse Ox 97 04/21/18 11:17 Intake & Output 04/20/18 04/21/18 04/21/18 18:59 06:59 18:59 Intake Total 0 300 969 Balance 0 300 969 Weight (lbs) 51.71 kg 55.565 kg Intake: Intake, IV Amount 969 D5-0.45NS 1,000 ml @ 60 969 mls/hr IV .[id number] [facility] Rx #:[id number] Oral 0 Other 300 Other: # Voids 3 2 # Bowel Movements 0 0 Stool Characteristics Soft Soft Formed Formed Weight Source Bedscale Bedscale Active Medications: Current Medications Acetaminophen (Tylenol) 650 mg GT Q4H PRN PRN Reason: Pain Or Fever above 101 Stop: 06/19/18 08:35 Albuterol Sulfate (Albuterol 2.5mg/3ml Neb Ud) 2.5 mg HHN Q4HR PRN PRN Reason: Shortness of Breath or Wheeze Stop: 06/19/18 08:35 Amlodipine Besylate (Norvasc) 10 mg GT DAILY [facility] Stop: 06/19/18 08:59 Last Admin: 04/21/18 08:35 Dose: 10 mg Ascorbic Acid (Vitamin C) 500 mg GT BID [facility] Stop: 06/19/18 08:59 Last Admin: 04/21/18 08:36 Dose: 500 mg Docusate Sodium (Colace) 100 mg PO BID [facility] Stop: 06/19/18 08:59 Last Admin: 04/21/18 08:36 Dose: 100 mg Ferrous Sulfate (Iron) 330 mg PO DAILY [facility] Stop: 06/19/18 08:59 Last Admin: 04/21/18 08:36 Dose: 330 mg Glipizide (Glucotrol) 2.5 mg GT BIDAC [facility] Stop: 06/19/18 16:29 Last Admin: 04/21/18 08:35 Dose: 2.5 mg Guaifenesin (Robitussin) 200 mg GT Q4HR PRN PRN Reason: Cough or Congestion Stop: 06/19/18 08:35 Haloperidol Decanoate (Haldol Dec) 25 mg IM QMONTH [facility]; Protocol Stop: 06/19/18 08:44 Last Admin: 04/20/18 14:12 Dose: 25 mg Hydralazine HCl (Apresoline) 20 mg GT TID [facility] Stop: 06/19/18 08:59 Last Admin: 04/21/18 14:37 Dose: 20 mg Dextrose/Sodium Chloride (D5-0.45ns) 1,000 mls @ 60 mls/hr IV .[id number] [facility] Stop: 06/19/18 14:29 Last Admin: 04/21/18 07:07 Dose: 60 mls/hr Insulin Aspart (Novolog) 0 units SUBQ ACHS [facility]; Protocol Stop: 06/19/18 11:29 Last Admin: 04/21/18 13:07 Dose: Not Given Ipratropium [place] (Atrovent Neb 0.5mg/2.5ml) 0.5 mg HHN Q2HRT PRN PRN Reason: Shortness of Breath or Wheeze Stop: 06/19/18 08:35 Isosorbide Dinitrate (Isordil) 10 mg PO DAILY [facility] Stop: 06/19/18 10:59 Last Admin: 04/21/18 08:36 Dose: 10 mg Mirtazapine (Remeron) 15 mg GT HS [facility]; Protocol Stop: 06/19/18 20:59 Last Admin: 04/20/18 21:03 Dose: 15 mg Pantoprazole Sodium (Protonix) 40 mg PO DAILY [facility] Stop: 06/20/18 08:59 Last Admin: 04/21/18 08:35 Dose: 40 mg Zinc Sulfate (Zinc Sulfate) 220 mg GT DAILY [facility] Stop: 06/19/18 08:59 Last Admin: 04/21/18 08:36 Dose: 220 mg General: demented, disheveled HEENT: anicteric sclerae, thinning hair, poor dentition Neck: Supple Lungs: congested, rales Cardiovascular: RRR, Normal S1, Normal S2, with murmur Abdomen: soft, thin, +GT, positive bowel sound Extremities: excoriation, contracture, deformity Neurological: disorganized, unsteady, unable to follow command - Procedures Procedures: Procedures Procedure Code Date EGD PLACE GASTROSTOMY TUBE 15784 06/21/17 EXCISION OF ASCENDING COLON, ENDO, DIAGN [id number] 06/21/17 EXCISION OF CECUM, ENDO, DIAGN 2EWX7WU 06/21/17 EXCISION OF SIGMOID COLON, ENDO, DIAGN 6ZPC8ZL 06/21/17 EXCISION OF STOMACH, ENDO, DIAGN [id number] 06/21/17 INSERTION OF FEEDING DEVICE INTO STOMACH, PERC APPROACH [id number] 06/21/17 INSERTION OF INFUSION DEV INTO SUP VENA CAVA, PERC APPROACH 27UZ61T 06/21/17 INTRODUCTION OF NUTRITIONAL INTO CENTRAL VEIN, PERC APPROACH 3T6193R 06/21/17 PARTIAL REMOVAL OF COLON 43815 06/21/17 RESECTION OF RIGHT LARGE INTESTINE, OPEN APPROACH 9PNJ8PQ 06/21/17 RESPIRATORY VENTILATION, LESS THAN 24 CONSECUTIVE HOURS 3B8140O 06/21/17 TRANSFUSE NONAUT RED BLOOD CELLS IN PERIPH VEIN, PERC 63256N6 03/16/18 Internal Medicine Assmt/Plan - Assessment Assessment: ASSESSMENT AND PLAN: Gastrointestinal bleeding, severe anemia, dehydration, chronic renal insufficiency, hypertension, diabetes, hypercholesterolemia, dementia, malnutrition, congestive heart failure. - Plan Plan: plan: Continue the patient on gentle IV rehydration for blood transfusion, we will refer the patient to GI as well as Hematology. Continue with supportive care. We will continue to monitor the patient closely. Nutritional Asmnt/Malnutr-PDOC - Dietary Evaluation Malnutrition Findings (Please click <Entered> for more info): Nutritional Asmnt/Malnutrition Start: 04/20/18 10: 41 Text: Status: Complete Freq: Protocol: Document 04/20/18 10:41 LCHENG (Rec: 04/20/18 10:58 LCHENG [email or web address]) Nutritional Asmnt/Malnutrition Patient General Information Nutritional Screening High Risk Consult Diagnosis anemia, GI bleed Pertinent Medical Hx/Surgical Hx HTN, adm, CAD, asthma/COPD, dyslipidemia, PUD/GERD, dementia Subjective Information Consult received for blood sugar 188 at admission. Pt seen lying in bed at time of visit, non-verbal. RN stated pt was admitted d/t anemia. Current Diet Order/ Nutrition Support TF with Glucerna 1.2 at 80ml/ hr x 20hr Pertinent Medications vit C, colace, iron, glucotrol , novolog, remeron, protonix, zinc Pertinent Labs 04/19 Cl 95, Cr 1.4, glucose 188, Alb 3.3 Nutritional Hx/Data Height 1.91 m Height (Calculated Centimeters) 190.5 Current Weight (lbs) 51.71 kg Weight (Calculated Kilograms) 51.7 Weight (Calculated Grams) 11878.5 [place] Body Weight 115 Body Mass Index (BMI) 14.2 Weight Status Underweight GI Symptoms GI Symptoms None Last BM not indicated Difficult in: None Skin Integrity/Comment: scar pressure area to coccyx, skin intact, benji 10 Estimated Nutritional Goals BEE in Kcals: Using Current wt Calories/Kcals/Kg 30-35 Kcals Calculated 1667-5988 Protein: Using Current wt Protein g/k.2-1.4 Protein Calculated 62-88 Fluid: ml 1560-1820ml (1ml/kcal) Nutritional Problem 2. Problem Problem increased nutrition needs Etiology underweight Signs/Symptoms: BMI 14.3 1. Problem Problem altered nutrition related labs Etiology hx of DM, endocrine dysfunction Signs/Symptoms: glucose 188 at admission Intervention/Recommendation Comments 1. Revommend modity TF to Glucerna 1.2 at 70ml/hr x 20hr to avoid excessive carb intake. It will provide 1680kcal, 84g protein, 888ml free water, meeting 100% of nutritional needs. LULÚ Chawla notified. 2. MD to adjust insulin for optimal glycemic control. 3. Monitor TF rate, tolerance, wt, skin integrity and labs 4. F/U as high risk in 2-3 days, 04/22-04/23 Expected Outcomes/Goals Expected Outcomes/Goals 1. Pt to meet at least 90% of nutritional needs via nutrition support with tolerance 2. Wt stability, skin to remain intact, labs to approach WNL.
[2018-04-22] MEDS: D5-0.45NS 1,000 ML IV SCH (00:56)
[2018-04-22 04:09] LABS: IRON LC 20 ug/dL (27-139); TIBC (LC) 230 ug/dL (250-450); UIBC 210 ug/dL (118-369)
[2018-04-22 05:59] LABS: % BASOPHILS 0.9 % (0.0-2.0); % EOSINOPHILS 6.3 % (0.0-5.0); % MONOCYTES 6.1 % (2.0-10.0); % NEUTROPHILS 68.7 % (40.0-80.0); BASOPHILE ABSOLUTE 0.1 Th/cumm (0-0.2); EOSINOPHILE ABSOLUTE 0.6 Th/cmm (0.1-0.4); HEMATOCRIT 26.5 % (41.0-60); HEMOGLOBIN 8.9 gm/dL (12-16); LYMPHOCYTE ABSOLUTE 1.8 Th/cmm (1.5-3.0); MEAN CELL VOLUME 85.5 fl (81-100); MEAN CORPUSCULAR HEMOGLOBIN 28.8 pg (27.0-31.0); MEAN CORPUSCULAR HGB CONC 33.7 pg (28.0-36.0); MEAN PLATELET VOLUME 7.4 fl; MONOCYTE ABSOLUTE 0.6 Th/cmm (0.3-1.0); NEUTROPHILE ABSOLUTE 6.8 Th/cmm (1.8-8.0); PLATELET COUNT 311 Th/cmm (150-400); RED CELL DISTRIBUTION WIDTH 16.9 % (11.5-20.0); WHITE BLOOD COUNT 9.9 Th/cmm (4.8-10.8)
[2018-04-22 06:06] LABS: FOLIC ACID >20.0 ng/mL (>3.0)
--- NOTE | 2018-04-22 07:50 | GI Progress Note ---
Subjective - Review of Systems Service Date: 04/22/18 Subjective: Having green colored stool, no other overnight events. Objective - Results Result Diagrams: 04/22/18 05:50 04/21/18 06:12 Recent Labs: Laboratory Last Values WBC 9.9 Th/cmm (4.8-10.8) 04/22/18 05:50 RBC 3.10 Mil/cmm (3.80-5.20) L 04/22/18 05:50 Hgb 8.9 gm/dL (12-16) L 04/22/18 05:50 Hct 26.5 % (41.0-60) L 04/22/18 05:50 MCV 85.5 fl (81-100) 04/22/18 05:50 MCH 28.8 pg (27.0-31.0) 04/22/18 05:50 MCHC Differential 33.7 pg (28.0-36.0) 04/22/18 05:50 RDW 16.9 % (11.5-20.0) 04/22/18 05:50 Plt Count 311 Th/cmm (150-400) 04/22/18 05:50 MPV 7.4 fl 04/22/18 05:50 Add Manual Diff YES 04/19/18 00:45 Neutrophils % 68.7 % (40.0-80.0) 04/22/18 05:50 Band Neutrophils % 2 % (0-10) 04/19/18 00:45 Lymphocytes % 18.0 % (20.0-50.0) L 04/22/18 05:50 Monocytes % 6.1 % (2.0-10.0) 04/22/18 05:50 Eosinophils % 6.3 % (0.0-5.0) H 04/22/18 05:50 Basophils % 0.9 % (0.0-2.0) 04/22/18 05:50 Neutrophils (Manual) 72 % (40-80) 04/19/18 00:45 Lymphocytes 20 % (20-50) 04/19/18 00:45 Monocytes 6 % (2-10) 04/19/18 00:45 Platelet Estimate DECREASED PLATELETS (NORMAL) 04/19/18 00:45 PT 9.8 SECONDS (9.5-11.5) 04/19/18 01:25 INR 0.94 (0.5-1.4) 04/19/18 01:25 PTT (Actin FS) 18.3 SECONDS (26.0-38.0) L 04/19/18 01:25 Sodium 140 mEq/L (136-145) 04/21/18 06:12 Potassium 3.5 mEq/L (3.5-5.1) 04/21/18 06:12 Chloride 99 mEq/L (98-107) 04/21/18 06:12 Carbon Dioxide 32.5 mEq/L (21.0-31.0) H 04/21/18 06:12 Anion Gap 12.0 (7.0-16.0) 04/21/18 06:12 BUN 67 mg/dL (7-25) H 04/21/18 06:12 Creatinine 1.6 mg/dL (0.6-1.2) H 04/21/18 06:12 Est GFR ( Amer) TNP 04/21/18 06:12 Est GFR (Non-Af Amer) TNP 04/21/18 06:12 BUN/Creatinine Ratio 41.9 04/21/18 06:12 Glucose 122 mg/dL (70-105) H 04/21/18 06:12 POC Glucose 125 MG/DL (70 - 105) H 04/22/18 07:16 Whole Bld Lactic Acid 0.89 mmol/L (0.60-1.99) 04/19/18 00:45 Calcium 9.2 mg/dL (8.6-10.3) 04/21/18 06:12 Magnesium 2.4 mg/dL (1.9-2.7) 04/21/18 06:12 Iron 20 ug/dL (27-139) L 04/21/18 06:12 TIBC 230 ug/dL (250-450) L 04/21/18 06:12 Iron Saturation 9 % (15-55) L 04/21/18 06:12 Unsaturated IBC 210 ug/dL (118-369) 04/21/18 06:12 Total Bilirubin 0.3 mg/dL (0.3-1.0) 04/21/18 06:12 AST 25 U/L (13-39) 04/21/18 06:12 ALT 15 U/L (7-52) 04/21/18 06:12 Alkaline Phosphatase 69 U/L (34-104) 04/21/18 06:12 Creatine Kinase 582 U/L (30-223) H 04/19/18 00:45 CK-MB (CK-2) 11.4 ng/mL (0.6-6.3) H 04/19/18 00:45 Troponin I 0.08 ng/mL (0.01-0.05) H* D 04/19/18 00:45 Total Protein 6.1 gm/dL (6.0-8.3) 04/21/18 06:12 Albumin 3.1 gm/dL (3.7-5.3) L 04/21/18 06:12 Globulin 3.0 gm/dL 04/21/18 06:12 Albumin/Globulin Ratio 1.0 (1.0-1.8) 04/21/18 06:12 Vitamin B12 1183 pg/mL (232-1245) 04/21/18 06:12 Folic Acid >20.0 ng/mL (>3.0) 04/21/18 06:12 TSH 2.19 uIU/ml (0.34-5.60) 04/21/18 06:12 Urine Source CLEAN C 04/20/18 18:00 Urine Color YELLOW 04/20/18 18:00 Urine Clarity HAZY (CLEAR) 04/20/18 18:00 Urine pH 7.0 (4.6 - 8.0) 04/20/18 18:00 Ur Specific [place] 1.015 (1.005-1.030) 04/20/18 18:00 Urine Protein >=300 mg/dL (NEGATIVE) 04/20/18 18:00 Urine Glucose (UA) NEGATIVE mg/dL (NEGATIVE) 04/20/18 18:00 Urine Ketones NEGATIVE mg/dL (NEGATIVE) 04/20/18 18:00 Urine Blood TRACE (NEGATIVE) 04/20/18 18:00 Urine Nitrate NEGATIVE (NEGATIVE) 04/20/18 18:00 Urine Bilirubin NEGATIVE (NEGATIVE) 04/20/18 18:00 Urine Urobilinogen 0.2 E.U./dL (0.2 - 1.0) 04/20/18 18:00 Ur Leukocyte Esterase NEGATIVE (NEGATIVE) 04/20/18 18:00 Urine RBC 0-2 /hpf (0-5) 04/20/18 18:00 Urine WBC 2-5 /hpf (0-5) 04/20/18 18:00 Ur Epithelial Cells FEW /lpf (FEW) 04/20/18 18:00 Urine Bacteria MANY /hpf (NONE SEEN) H 04/20/18 18:00 Stool Occult Blood POSITIVE (NEGATIVE) H 04/20/18 02:30 Blood Type O POSITIVE 04/20/18 00:45 Antibody Screen NEGATIVE 04/20/18 00:45 Crossmatch See Detail 04/20/18 00:45 - Physical Exam Vitals and I&O: Vital Signs Temp 98.9 F 04/22/18 04:00 Pulse 93 04/22/18 04:00 Resp 17 04/22/18 04:00 BP 166/76 04/22/18 04:00 Pulse Ox 97 04/22/18 04:00 Intake & Output 04/21/18 04/22/18 04/22/18 18:59 06:59 18:59 Intake Total 1709 2063 Output Total 3 Balance 1706 2063 Weight (lbs) 55.565 kg 55.537 kg Intake: Intake, IV Amount 969 1293 D5-0.45NS 1,000 ml @ 60 969 1293 mls/hr IV .[id number] [facility] Rx #:[id number] Oral 0 Tube Feeding 560 770 Other 180 Output: Urine 3 Other: # Voids 3 # Bowel Movements 2 1 Weight Source Bedscale Bedscale Active Medications: Current Medications Acetaminophen (Tylenol) 650 mg GT Q4H PRN PRN Reason: Pain Or Fever above 101 Stop: 06/19/18 08:35 Albuterol Sulfate (Albuterol 2.5mg/3ml Neb Ud) 2.5 mg HHN Q4HR PRN PRN Reason: Shortness of Breath or Wheeze Stop: 06/19/18 08:35 Amlodipine Besylate (Norvasc) 10 mg GT DAILY [facility] Stop: 06/19/18 08:59 Last Admin: 04/21/18 08:35 Dose: 10 mg Ascorbic Acid (Vitamin C) 500 mg GT BID [facility] Stop: 06/19/18 08:59 Last Admin: 04/21/18 17:31 Dose: 500 mg Docusate Sodium (Colace) 100 mg PO BID [facility] Stop: 06/19/18 08:59 Last Admin: 04/21/18 17:31 Dose: 100 mg Ferrous Sulfate (Iron) 330 mg PO DAILY [facility] Stop: 06/19/18 08:59 Last Admin: 04/21/18 08:36 Dose: 330 mg Glipizide (Glucotrol) 2.5 mg GT BIDAC [facility] Stop: 06/19/18 16:29 Last Admin: 04/22/18 07:17 Dose: 2.5 mg Guaifenesin (Robitussin) 200 mg GT Q4HR PRN PRN Reason: Cough or Congestion Stop: 06/19/18 08:35 Haloperidol Decanoate (Haldol Dec) 25 mg IM QMONTH [facility]; Protocol Stop: 06/19/18 08:44 Last Admin: 04/20/18 14:12 Dose: 25 mg Hydralazine HCl (Apresoline) 20 mg GT TID [facility] Stop: 06/19/18 08:59 Last Admin: 04/21/18 20:44 Dose: 20 mg Dextrose/Sodium Chloride (D5-0.45ns) 1,000 mls @ 60 mls/hr IV .[id number] [facility] Stop: 06/19/18 14:29 Last Infusion: 04/22/18 05:49 Dose: 60 mls/hr Insulin Aspart (Novolog) 0 units SUBQ ACHS [facility]; Protocol Stop: 06/19/18 11:29 Last Admin: 04/21/18 20:39 Dose: Not Given Ipratropium [place] (Atrovent Neb 0.5mg/2.5ml) 0.5 mg HHN Q2HRT PRN PRN Reason: Shortness of Breath or Wheeze Stop: 06/19/18 08:35 Isosorbide Dinitrate (Isordil) 10 mg PO DAILY [facility] Stop: 06/19/18 10:59 Last Admin: 04/21/18 08:36 Dose: 10 mg Mirtazapine (Remeron) 15 mg GT HS [facility]; Protocol Stop: 06/19/18 20:59 Last Admin: 04/21/18 20:42 Dose: 15 mg Pantoprazole Sodium (Protonix) 40 mg PO DAILY [facility] Stop: 06/20/18 08:59 Last Admin: 04/21/18 08:35 Dose: 40 mg Zinc Sulfate (Zinc Sulfate) 220 mg GT DAILY [facility] Stop: 06/19/18 08:59 Last Admin: 04/21/18 08:36 Dose: 220 mg General: Alert HEENT: Atraumatic Neck: Supple Cardiovascular: Regular rate Abdomen: Bowel sounds, Soft, Other (g tube c/d/i), no Tender, no Hepatomegaly, no Distended, no Rebound, no Mass Extremities: no Clubbing Neurological: no Normal gait - Procedures Procedures: Procedures Procedure Code Date EGD PLACE GASTROSTOMY TUBE 12170 06/21/17 EXCISION OF ASCENDING COLON, ENDO, DIAGN [id number] 06/21/17 EXCISION OF CECUM, ENDO, DIAGN [id number] 06/21/17 EXCISION OF SIGMOID COLON, ENDO, DIAGN [id number] 06/21/17 EXCISION OF STOMACH, ENDO, DIAGN [id number] 06/21/17 INSERTION OF FEEDING DEVICE INTO STOMACH, PERC APPROACH [id number] 06/21/17 INSERTION OF INFUSION DEV INTO SUP VENA CAVA, PERC APPROACH [id number] 06/21/17 INTRODUCTION OF NUTRITIONAL INTO CENTRAL VEIN, PERC APPROACH [id number] 06/21/17 PARTIAL REMOVAL OF COLON 91714 06/21/17 RESECTION OF RIGHT LARGE INTESTINE, OPEN APPROACH [id number] 06/21/17 RESPIRATORY VENTILATION, LESS THAN 24 CONSECUTIVE HOURS [id number] 06/21/17 TRANSFUSE NONAUT RED BLOOD CELLS IN PERIPH VEIN, PERC 72040V8 03/16/18 Assessment/Plan - Assessment Assessment: # Chronic anemia # Dementia # Dysphagia with G tube # History of colon cancer s/p R hemicolectomy This pt's baseline hgb trends from 7-8, and she has had an extensive workup for this including multiple EGDs and colonoscopy this year. She did have a large cancerous polyp in the cecum, and has since had a R elisa colectomy. At this point, further endoscopy should be reserved for active bleeding. FOB should not be performed on this patient as she is on chronic iron therapy (and FOB will ALWAYS be positive). Plan: - cont tube feeding - ppi daily - reserve EGD unless she is having active melena (see above, she has had multiple endoscopies already) - cont tube feeding - cont iron therapy - recommend against further FOB tests, see above - trend hgb, transfuse to keep > 7 - hematology follow up (this workup has been done in the past as well)
[2018-04-22] MEDS: Multivitamin w/ Minerals Tab GT SCH (08:27)
[2018-04-22] MEDS: Ferrous Sulfate 300 MG/5 ML UDC PO SCH (08:27)
[2018-04-22] MEDS: Pantoprazole 40 mg EC Tab PO SCH (08:28)
[2018-04-22] MEDS: INSULIN ASPART, RECOMBINANT 100 UNITS/ML SUBQ SCH ×4 (08:31→20:37)
--- NOTE | 2018-04-22 11:50 | Internal Medicine Prog Note ---
Internal Medicine Subjective - Subjective Patient seen and examined:: with staff, chart reviewed Patient is:: asleep, interactive, in bed, agitated, confused Patient Complaints of:: congestion, weight loss Per staff patient has:: no adverse event, no episodes of fall, agitated, combative, tolerating meds Internal Medicine Objective - Results Result Diagrams: 04/22/18 05:50 04/21/18 06:12 Recent Labs: Laboratory Last Values WBC 9.9 Th/cmm (4.8-10.8) 04/22/18 05:50 RBC 3.10 Mil/cmm (3.80-5.20) L 04/22/18 05:50 Hgb 8.9 gm/dL (12-16) L 04/22/18 05:50 Hct 26.5 % (41.0-60) L 04/22/18 05:50 MCV 85.5 fl (81-100) 04/22/18 05:50 MCH 28.8 pg (27.0-31.0) 04/22/18 05:50 MCHC Differential 33.7 pg (28.0-36.0) 04/22/18 05:50 RDW 16.9 % (11.5-20.0) 04/22/18 05:50 Plt Count 311 Th/cmm (150-400) 04/22/18 05:50 MPV 7.4 fl 04/22/18 05:50 Add Manual Diff YES 04/19/18 00:45 Neutrophils % 68.7 % (40.0-80.0) 04/22/18 05:50 Band Neutrophils % 2 % (0-10) 04/19/18 00:45 Lymphocytes % 18.0 % (20.0-50.0) L 04/22/18 05:50 Monocytes % 6.1 % (2.0-10.0) 04/22/18 05:50 Eosinophils % 6.3 % (0.0-5.0) H 04/22/18 05:50 Basophils % 0.9 % (0.0-2.0) 04/22/18 05:50 Neutrophils (Manual) 72 % (40-80) 04/19/18 00:45 Lymphocytes 20 % (20-50) 04/19/18 00:45 Monocytes 6 % (2-10) 04/19/18 00:45 Platelet Estimate DECREASED PLATELETS (NORMAL) 04/19/18 00:45 PT 9.8 SECONDS (9.5-11.5) 04/19/18 01:25 INR 0.94 (0.5-1.4) 04/19/18 01:25 PTT (Actin FS) 18.3 SECONDS (26.0-38.0) L 04/19/18 01:25 Sodium 140 mEq/L (136-145) 04/21/18 06:12 Potassium 3.5 mEq/L (3.5-5.1) 04/21/18 06:12 Chloride 99 mEq/L (98-107) 04/21/18 06:12 Carbon Dioxide 32.5 mEq/L (21.0-31.0) H 04/21/18 06:12 Anion Gap 12.0 (7.0-16.0) 04/21/18 06:12 BUN 67 mg/dL (7-25) H 04/21/18 06:12 Creatinine 1.6 mg/dL (0.6-1.2) H 04/21/18 06:12 Est GFR ( Amer) TNP 04/21/18 06:12 Est GFR (Non-Af Amer) TNP 04/21/18 06:12 BUN/Creatinine Ratio 41.9 04/21/18 06:12 Glucose 122 mg/dL (70-105) H 04/21/18 06:12 POC Glucose 125 MG/DL (70 - 105) H 04/22/18 07:16 Whole Bld Lactic Acid 0.89 mmol/L (0.60-1.99) 04/19/18 00:45 Calcium 9.2 mg/dL (8.6-10.3) 04/21/18 06:12 Magnesium 2.4 mg/dL (1.9-2.7) 04/21/18 06:12 Iron 20 ug/dL (27-139) L 04/21/18 06:12 TIBC 230 ug/dL (250-450) L 04/21/18 06:12 Iron Saturation 9 % (15-55) L 04/21/18 06:12 Unsaturated IBC 210 ug/dL (118-369) 04/21/18 06:12 Total Bilirubin 0.3 mg/dL (0.3-1.0) 04/21/18 06:12 AST 25 U/L (13-39) 04/21/18 06:12 ALT 15 U/L (7-52) 04/21/18 06:12 Alkaline Phosphatase 69 U/L (34-104) 04/21/18 06:12 Creatine Kinase 582 U/L (30-223) H 04/19/18 00:45 CK-MB (CK-2) 11.4 ng/mL (0.6-6.3) H 04/19/18 00:45 Troponin I 0.08 ng/mL (0.01-0.05) H* D 04/19/18 00:45 Total Protein 6.1 gm/dL (6.0-8.3) 04/21/18 06:12 Albumin 3.1 gm/dL (3.7-5.3) L 04/21/18 06:12 Globulin 3.0 gm/dL 04/21/18 06:12 Albumin/Globulin Ratio 1.0 (1.0-1.8) 04/21/18 06:12 Vitamin B12 1183 pg/mL (232-1245) 04/21/18 06:12 Folic Acid >20.0 ng/mL (>3.0) 04/21/18 06:12 TSH 2.19 uIU/ml (0.34-5.60) 04/21/18 06:12 Urine Source CLEAN C 04/20/18 18:00 Urine Color YELLOW 04/20/18 18:00 Urine Clarity HAZY (CLEAR) 04/20/18 18:00 Urine pH 7.0 (4.6 - 8.0) 04/20/18 18:00 Ur Specific [place] 1.015 (1.005-1.030) 04/20/18 18:00 Urine Protein >=300 mg/dL (NEGATIVE) 04/20/18 18:00 Urine Glucose (UA) NEGATIVE mg/dL (NEGATIVE) 04/20/18 18:00 Urine Ketones NEGATIVE mg/dL (NEGATIVE) 04/20/18 18:00 Urine Blood TRACE (NEGATIVE) 04/20/18 18:00 Urine Nitrate NEGATIVE (NEGATIVE) 04/20/18 18:00 Urine Bilirubin NEGATIVE (NEGATIVE) 04/20/18 18:00 Urine Urobilinogen 0.2 E.U./dL (0.2 - 1.0) 04/20/18 18:00 Ur Leukocyte Esterase NEGATIVE (NEGATIVE) 04/20/18 18:00 Urine RBC 0-2 /hpf (0-5) 04/20/18 18:00 Urine WBC 2-5 /hpf (0-5) 04/20/18 18:00 Ur Epithelial Cells FEW /lpf (FEW) 04/20/18 18:00 Urine Bacteria MANY /hpf (NONE SEEN) H 04/20/18 18:00 Stool Occult Blood POSITIVE (NEGATIVE) H 04/20/18 02:30 Blood Type O POSITIVE 04/20/18 00:45 Antibody Screen NEGATIVE 04/20/18 00:45 Crossmatch See Detail 04/20/18 00:45 - Physical Exam Vitals and I&O: Vital Signs Temp 97.8 F 04/22/18 11:46 Pulse 88 04/22/18 11:46 Resp 18 04/22/18 11:46 BP 141/68 04/22/18 11:46 Pulse Ox 97 04/22/18 11:46 Intake & Output 04/21/18 04/22/18 04/22/18 18:59 06:59 18:59 Intake Total 1709 2063 Output Total 3 Balance 1706 2063 Weight (lbs) 55.565 kg 55.537 kg Intake: Intake, IV Amount 969 1293 D5-0.45NS 1,000 ml @ 60 969 1293 mls/hr IV .[id number] [facility] Rx #:[id number] Oral 0 Tube Feeding 560 770 Other 180 Output: Urine 3 Other: # Voids 3 # Bowel Movements 2 1 Weight Source Bedscale Bedscale Active Medications: Current Medications Acetaminophen (Tylenol) 650 mg GT Q4H PRN PRN Reason: Pain Or Fever above 101 Stop: 06/19/18 08:35 Albuterol Sulfate (Albuterol 2.5mg/3ml Neb Ud) 2.5 mg HHN Q4HR PRN PRN Reason: Shortness of Breath or Wheeze Stop: 06/19/18 08:35 Amlodipine Besylate (Norvasc) 10 mg GT DAILY [facility] Stop: 06/19/18 08:59 Last Admin: 04/22/18 08:30 Dose: 10 mg Ascorbic Acid (Vitamin C) 500 mg GT BID [facility] Stop: 06/19/18 08:59 Last Admin: 04/22/18 08:28 Dose: 500 mg Docusate Sodium (Colace) 100 mg PO BID [facility] Stop: 06/19/18 08:59 Last Admin: 04/22/18 08:28 Dose: 100 mg Ferrous Sulfate (Iron) 330 mg PO DAILY [facility] Stop: 06/19/18 08:59 Last Admin: 04/22/18 08:27 Dose: 330 mg Glipizide (Glucotrol) 2.5 mg GT BIDAC [facility] Stop: 06/19/18 16:29 Last Admin: 04/22/18 07:17 Dose: 2.5 mg Guaifenesin (Robitussin) 200 mg GT Q4HR PRN PRN Reason: Cough or Congestion Stop: 06/19/18 08:35 Haloperidol Decanoate (Haldol Dec) 25 mg IM QMONTH [facility]; Protocol Stop: 06/19/18 08:44 Last Admin: 04/20/18 14:12 Dose: 25 mg Hydralazine HCl (Apresoline) 20 mg GT TID [facility] Stop: 06/19/18 08:59 Last Admin: 04/22/18 08:28 Dose: 20 mg Dextrose/Sodium Chloride (D5-0.45ns) 1,000 mls @ 40 mls/hr IV .Q24H [facility] Stop: 06/21/18 11:59 Insulin Aspart (Novolog) 0 units SUBQ ACHS [facility]; Protocol Stop: 06/19/18 11:29 Last Admin: 04/22/18 08:31 Dose: Not Given Ipratropium [place] (Atrovent Neb 0.5mg/2.5ml) 0.5 mg HHN Q2HRT PRN PRN Reason: Shortness of Breath or Wheeze Stop: 06/19/18 08:35 Isosorbide Dinitrate (Isordil) 10 mg PO TID [facility] Stop: 06/21/18 13:59 Mirtazapine (Remeron) 15 mg GT HS [facility]; Protocol Stop: 06/19/18 20:59 Last Admin: 04/21/18 20:42 Dose: 15 mg Pantoprazole Sodium (Protonix) 40 mg PO DAILY [facility] Stop: 06/20/18 08:59 Last Admin: 04/22/18 08:28 Dose: 40 mg Zinc Sulfate (Zinc Sulfate) 220 mg GT DAILY [facility] Stop: 06/19/18 08:59 Last Admin: 04/22/18 08:28 Dose: 220 mg General: demented, disheveled HEENT: anicteric sclerae, thinning hair, poor dentition Neck: Supple Lungs: congested, rales Cardiovascular: RRR, Normal S1, Normal S2, with murmur Abdomen: soft, thin, +GT, positive bowel sound Extremities: excoriation, contracture, deformity Neurological: disorganized, unsteady, unable to follow command - Procedures Procedures: Procedures Procedure Code Date EGD PLACE GASTROSTOMY TUBE 04144 06/21/17 EXCISION OF ASCENDING COLON, ENDO, DIAGN [id number] 06/21/17 EXCISION OF CECUM, ENDO, DIAGN [id number] 06/21/17 EXCISION OF SIGMOID COLON, ENDO, DIAGN [id number] 06/21/17 EXCISION OF STOMACH, ENDO, DIAGN [id number] 06/21/17 INSERTION OF FEEDING DEVICE INTO STOMACH, PERC APPROACH [id number] 06/21/17 INSERTION OF INFUSION DEV INTO SUP VENA CAVA, PERC APPROACH [id number] 06/21/17 INTRODUCTION OF NUTRITIONAL INTO CENTRAL VEIN, PERC APPROACH 2I0991M 06/21/17 PARTIAL REMOVAL OF COLON 71033 06/21/17 RESECTION OF RIGHT LARGE INTESTINE, OPEN APPROACH [id number] 06/21/17 RESPIRATORY VENTILATION, LESS THAN 24 CONSECUTIVE HOURS [id number] 06/21/17 TRANSFUSE NONAUT RED BLOOD CELLS IN PERIPH VEIN, PERC 10473Z5 03/16/18 Internal Medicine Assmt/Plan - Assessment Assessment: ASSESSMENT AND PLAN: Gastrointestinal bleeding, severe anemia, dehydration, chronic renal insufficiency, hypertension, diabetes, hypercholesterolemia, dementia, malnutrition, congestive heart failure. - Plan Plan: plan: Continue the patient on gentle IV rehydration for blood transfusion, we will refer the patient to GI as well as Hematology. Continue with supportive care. We will continue to monitor the patient closely. Nutritional Asmnt/Malnutr-PDOC - Dietary Evaluation Malnutrition Findings (Please click <Entered> for more info): Nutritional Asmnt/Malnutrition Start: 04/20/18 10: 41 Text: Status: Complete Freq: Protocol: Document 04/20/18 10:41 GRISELDA (Rec: 04/20/18 10:58 GRISELDA [email or web address]) Nutritional Asmnt/Malnutrition Patient General Information Nutritional Screening High Risk Consult Diagnosis anemia, GI bleed Pertinent Medical Hx/Surgical Hx HTN, adm, CAD, asthma/COPD, dyslipidemia, PUD/GERD, dementia Subjective Information Consult received for blood sugar 188 at admission. Pt seen lying in bed at time of visit, non-verbal. RN stated pt was admitted d/t anemia. Current Diet Order/ Nutrition Support TF with Glucerna 1.2 at 80ml/ hr x 20hr Pertinent Medications vit C, colace, iron, glucotrol , novolog, remeron, protonix, zinc Pertinent Labs 04/19 Cl 95, Cr 1.4, glucose 188, Alb 3.3 Nutritional Hx/Data Height 1.91 m Height (Calculated Centimeters) 190.5 Current Weight (lbs) 51.71 kg Weight (Calculated Kilograms) 51.7 Weight (Calculated Grams) 20897.5 [place] Body Weight 115 Body Mass Index (BMI) 14.2 Weight Status Underweight GI Symptoms GI Symptoms None Last BM not indicated Difficult in: None Skin Integrity/Comment: scar pressure area to coccyx, skin intact, benji 10 Estimated Nutritional Goals BEE in Kcals: Using Current wt Calories/Kcals/Kg 30-35 Kcals Calculated 8998-7786 Protein: Using Current wt Protein g/k.2-1.4 Protein Calculated 62-88 Fluid: ml 1560-1820ml (1ml/kcal) Nutritional Problem 2. Problem Problem increased nutrition needs Etiology underweight Signs/Symptoms: BMI 14.3 1. Problem Problem altered nutrition related labs Etiology hx of DM, endocrine dysfunction Signs/Symptoms: glucose 188 at admission Intervention/Recommendation Comments 1. Revommend modity TF to Glucerna 1.2 at 70ml/hr x 20hr to avoid excessive carb intake. It will provide 1680kcal, 84g protein, 888ml free water, meeting 100% of nutritional needs. RN Cammy notified. 2. MD to adjust insulin for optimal glycemic control. 3. Monitor TF rate, tolerance, wt, skin integrity and labs 4. F/U as high risk in 2-3 days, 04/22-04/23 Expected Outcomes/Goals Expected Outcomes/Goals 1. Pt to meet at least 90% of nutritional needs via nutrition support with tolerance 2. Wt stability, skin to remain intact, labs to approach WNL.
[2018-04-22] MEDS ORDERED: D5-0.45NS 1,000 ML IV SCH (12:00)
[2018-04-23] MEDS: INSULIN ASPART, RECOMBINANT 100 UNITS/ML SUBQ SCH (06:34)
[2018-04-23] MEDS: Ferrous Sulfate 300 MG/5 ML UDC PO SCH (08:21)
[2018-04-23] MEDS: Multivitamin w/ Minerals Tab GT SCH (08:22)
[2018-04-23] MEDS: Pantoprazole 40 mg EC Tab PO SCH (08:22)
--- NOTE | 2018-04-23 08:29 | GI Progress Note ---
Subjective - Review of Systems Service Date: 04/23/18 Subjective: No overnight events Objective - Results Result Diagrams: 04/22/18 05:50 04/21/18 06:12 Recent Labs: Laboratory Last Values WBC 9.9 Th/cmm (4.8-10.8) 04/22/18 05:50 RBC 3.10 Mil/cmm (3.80-5.20) L 04/22/18 05:50 Hgb 8.9 gm/dL (12-16) L 04/22/18 05:50 Hct 26.5 % (41.0-60) L 04/22/18 05:50 MCV 85.5 fl (81-100) 04/22/18 05:50 MCH 28.8 pg (27.0-31.0) 04/22/18 05:50 MCHC Differential 33.7 pg (28.0-36.0) 04/22/18 05:50 RDW 16.9 % (11.5-20.0) 04/22/18 05:50 Plt Count 311 Th/cmm (150-400) 04/22/18 05:50 MPV 7.4 fl 04/22/18 05:50 Add Manual Diff YES 04/19/18 00:45 Neutrophils % 68.7 % (40.0-80.0) 04/22/18 05:50 Band Neutrophils % 2 % (0-10) 04/19/18 00:45 Lymphocytes % 18.0 % (20.0-50.0) L 04/22/18 05:50 Monocytes % 6.1 % (2.0-10.0) 04/22/18 05:50 Eosinophils % 6.3 % (0.0-5.0) H 04/22/18 05:50 Basophils % 0.9 % (0.0-2.0) 04/22/18 05:50 Neutrophils (Manual) 72 % (40-80) 04/19/18 00:45 Lymphocytes 20 % (20-50) 04/19/18 00:45 Monocytes 6 % (2-10) 04/19/18 00:45 Platelet Estimate DECREASED PLATELETS (NORMAL) 04/19/18 00:45 PT 9.8 SECONDS (9.5-11.5) 04/19/18 01:25 INR 0.94 (0.5-1.4) 04/19/18 01:25 PTT (Actin FS) 18.3 SECONDS (26.0-38.0) L 04/19/18 01:25 Sodium 140 mEq/L (136-145) 04/21/18 06:12 Potassium 3.5 mEq/L (3.5-5.1) 04/21/18 06:12 Chloride 99 mEq/L (98-107) 04/21/18 06:12 Carbon Dioxide 32.5 mEq/L (21.0-31.0) H 04/21/18 06:12 Anion Gap 12.0 (7.0-16.0) 04/21/18 06:12 BUN 67 mg/dL (7-25) H 04/21/18 06:12 Creatinine 1.6 mg/dL (0.6-1.2) H 04/21/18 06:12 Est GFR ( Amer) TNP 04/21/18 06:12 Est GFR (Non-Af Amer) TNP 04/21/18 06:12 BUN/Creatinine Ratio 41.9 04/21/18 06:12 Glucose 122 mg/dL (70-105) H 04/21/18 06:12 POC Glucose 142 MG/DL (70 - 105) H 04/23/18 05:40 Whole Bld Lactic Acid 0.89 mmol/L (0.60-1.99) 04/19/18 00:45 Calcium 9.2 mg/dL (8.6-10.3) 04/21/18 06:12 Magnesium 2.4 mg/dL (1.9-2.7) 04/21/18 06:12 Iron 20 ug/dL (27-139) L 04/21/18 06:12 TIBC 230 ug/dL (250-450) L 04/21/18 06:12 Iron Saturation 9 % (15-55) L 04/21/18 06:12 Unsaturated IBC 210 ug/dL (118-369) 04/21/18 06:12 Total Bilirubin 0.3 mg/dL (0.3-1.0) 04/21/18 06:12 AST 25 U/L (13-39) 04/21/18 06:12 ALT 15 U/L (7-52) 04/21/18 06:12 Alkaline Phosphatase 69 U/L (34-104) 04/21/18 06:12 Creatine Kinase 582 U/L (30-223) H 04/19/18 00:45 CK-MB (CK-2) 11.4 ng/mL (0.6-6.3) H 04/19/18 00:45 Troponin I 0.08 ng/mL (0.01-0.05) H* D 04/19/18 00:45 Total Protein 6.1 gm/dL (6.0-8.3) 04/21/18 06:12 Albumin 3.1 gm/dL (3.7-5.3) L 04/21/18 06:12 Globulin 3.0 gm/dL 04/21/18 06:12 Albumin/Globulin Ratio 1.0 (1.0-1.8) 04/21/18 06:12 Vitamin B12 1183 pg/mL (232-1245) 04/21/18 06:12 Folic Acid >20.0 ng/mL (>3.0) 04/21/18 06:12 TSH 2.19 uIU/ml (0.34-5.60) 04/21/18 06:12 Urine Source CLEAN C 04/20/18 18:00 Urine Color YELLOW 04/20/18 18:00 Urine Clarity HAZY (CLEAR) 04/20/18 18:00 Urine pH 7.0 (4.6 - 8.0) 04/20/18 18:00 Ur Specific [place] 1.015 (1.005-1.030) 04/20/18 18:00 Urine Protein >=300 mg/dL (NEGATIVE) 04/20/18 18:00 Urine Glucose (UA) NEGATIVE mg/dL (NEGATIVE) 04/20/18 18:00 Urine Ketones NEGATIVE mg/dL (NEGATIVE) 04/20/18 18:00 Urine Blood TRACE (NEGATIVE) 04/20/18 18:00 Urine Nitrate NEGATIVE (NEGATIVE) 04/20/18 18:00 Urine Bilirubin NEGATIVE (NEGATIVE) 04/20/18 18:00 Urine Urobilinogen 0.2 E.U./dL (0.2 - 1.0) 04/20/18 18:00 Ur Leukocyte Esterase NEGATIVE (NEGATIVE) 04/20/18 18:00 Urine RBC 0-2 /hpf (0-5) 04/20/18 18:00 Urine WBC 2-5 /hpf (0-5) 04/20/18 18:00 Ur Epithelial Cells FEW /lpf (FEW) 04/20/18 18:00 Urine Bacteria MANY /hpf (NONE SEEN) H 04/20/18 18:00 Stool Occult Blood POSITIVE (NEGATIVE) H 04/20/18 02:30 Blood Type O POSITIVE 04/20/18 00:45 Antibody Screen NEGATIVE 04/20/18 00:45 Crossmatch See Detail 04/20/18 00:45 - Physical Exam Vitals and I&O: Vital Signs Temp 98.1 F 04/23/18 07:40 Pulse 84 04/23/18 08:22 Resp 18 04/23/18 08:00 BP 147/75 04/23/18 08:22 Pulse Ox 99 04/23/18 07:40 Intake & Output 04/22/18 04/23/18 04/23/18 18:59 06:59 18:59 Intake Total 200 1020 Balance 200 1020 Weight (lbs) 55.883 kg 57.062 kg Intake: Tube Feeding 200 840 Other 180 Other: # Voids 3 3 # Bowel Movements 1 1 Stool Characteristics Soft Weight Source Bedscale Bedscale Active Medications: Current Medications Acetaminophen (Tylenol) 650 mg GT Q4H PRN PRN Reason: Pain Or Fever above 101 Stop: 06/19/18 08:35 Albuterol Sulfate (Albuterol 2.5mg/3ml Neb Ud) 2.5 mg HHN Q4HR PRN PRN Reason: Shortness of Breath or Wheeze Stop: 06/19/18 08:35 Amlodipine Besylate (Norvasc) 10 mg GT DAILY [facility] Stop: 06/19/18 08:59 Last Admin: 04/23/18 08:22 Dose: 10 mg Ascorbic Acid (Vitamin C) 500 mg GT BID [facility] Stop: 06/19/18 08:59 Last Admin: 04/23/18 08:21 Dose: 500 mg Docusate Sodium (Colace) 100 mg PO BID [facility] Stop: 06/19/18 08:59 Last Admin: 04/23/18 08:22 Dose: 100 mg Ferrous Sulfate (Iron) 330 mg PO DAILY [facility] Stop: 06/19/18 08:59 Last Admin: 04/23/18 08:21 Dose: 330 mg Glipizide (Glucotrol) 2.5 mg GT BIDAC [facility] Stop: 06/19/18 16:29 Last Admin: 04/23/18 06:33 Dose: 2.5 mg Guaifenesin (Robitussin) 200 mg GT Q4HR PRN PRN Reason: Cough or Congestion Stop: 06/19/18 08:35 Haloperidol Decanoate (Haldol Dec) 25 mg IM QMONTH [facility]; Protocol Stop: 06/19/18 08:44 Last Admin: 04/20/18 14:12 Dose: 25 mg Hydralazine HCl (Apresoline) 20 mg GT TID [facility] Stop: 06/19/18 08:59 Last Admin: 04/23/18 08:21 Dose: 20 mg Insulin Aspart (Novolog) 0 units SUBQ ACHS [facility]; Protocol Stop: 06/19/18 11:29 Last Admin: 04/23/18 06:34 Dose: Not Given Ipratropium [place] (Atrovent Neb 0.5mg/2.5ml) 0.5 mg HHN Q2HRT PRN PRN Reason: Shortness of Breath or Wheeze Stop: 06/19/18 08:35 Isosorbide Dinitrate (Isordil) 10 mg PO TID [facility] Stop: 06/21/18 13:59 Last Admin: 04/23/18 08:22 Dose: 10 mg Mirtazapine (Remeron) 15 mg GT HS [facility]; Protocol Stop: 06/19/18 20:59 Last Admin: 04/22/18 20:36 Dose: 15 mg Pantoprazole Sodium (Protonix) 40 mg PO DAILY [facility] Stop: 06/20/18 08:59 Last Admin: 04/23/18 08:22 Dose: 40 mg Zinc Sulfate (Zinc Sulfate) 220 mg GT DAILY [facility] Stop: 06/19/18 08:59 Last Admin: 04/23/18 08:22 Dose: 220 mg General: Alert HEENT: Atraumatic Neck: Supple Cardiovascular: Regular rate Abdomen: Bowel sounds, Soft, Other (g tube c/d/i), no Tender, no Hepatomegaly, no Distended, no Rebound, no Mass Extremities: no Clubbing Neurological: no Normal gait - Procedures Procedures: Procedures Procedure Code Date EGD PLACE GASTROSTOMY TUBE 74021 06/21/17 EXCISION OF ASCENDING COLON, ENDO, DIAGN [id number] 06/21/17 EXCISION OF CECUM, ENDO, DIAGN [id number] 06/21/17 EXCISION OF SIGMOID COLON, ENDO, DIAGN [id number] 06/21/17 EXCISION OF STOMACH, ENDO, DIAGN [id number] 06/21/17 INSERTION OF FEEDING DEVICE INTO STOMACH, PERC APPROACH [id number] 06/21/17 INSERTION OF INFUSION DEV INTO SUP VENA CAVA, PERC APPROACH [id number] 06/21/17 INTRODUCTION OF NUTRITIONAL INTO CENTRAL VEIN, PERC APPROACH [id number] 06/21/17 PARTIAL REMOVAL OF COLON 59875 06/21/17 RESECTION OF RIGHT LARGE INTESTINE, OPEN APPROACH [id number] 06/21/17 RESPIRATORY VENTILATION, LESS THAN 24 CONSECUTIVE HOURS [id number] 06/21/17 TRANSFUSE NONAUT RED BLOOD CELLS IN PERIPH VEIN, PERC 75553R3 03/16/18 Assessment/Plan - Assessment Assessment: # Chronic anemia # Dementia # Dysphagia with G tube # History of colon cancer s/p R hemicolectomy This pt's baseline hgb trends from 7-8, and she has had an extensive workup for this including multiple EGDs and colonoscopy this year. She did have a large cancerous polyp in the cecum, and has since had a R elisa colectomy. At this point, further endoscopy should be reserved for active bleeding. FOB should not be performed on this patient as she is on chronic iron therapy (and FOB will ALWAYS be positive). Plan: - cont tube feeding - ppi daily - reserve EGD unless she is having active melena (see above, she has had multiple endoscopies already) - cont tube feeding - cont iron therapy - recommend against further FOB tests, see above - trend hgb, transfuse to keep > 7 - hematology follow up (this workup has been done in the past as well)
--- NOTE | 2018-04-23 23:34 | Discharge Summary ---
DATE OF DISCHARGE: 04/23/2018 CHIEF COMPLAINT: Low hemoglobin. FINAL DIAGNOSES: Anemia, status post transfusion, history of gastrointestinal bleeding, dehydration, chronic renal insufficiency, hypertension, diabetes, malnutrition, hypercholesterolemia, dementia and congestive heart failure. HISTORY: This is a 77-year-old -[place] female with multiple medical problems including hypertension, diabetes, dementia, malnutrition, CHF, status G-tube, admitted through the ER with a hemoglobin of 6. The patient admitted for further management. PHYSICAL EXAMINATION: VITAL SIGNS: Blood pressure 147/74, respirations 18, pulse 84, temperature 98.1. GENERAL: Elderly female, appears chronically ill. NECK: Supple. No mass. LUNGS: Equal breath sounds, few rhonchi. HEART: Regular rate and rhythm with systolic ejection murmur. ABDOMEN: Soft, globular. EXTREMITIES: Positive excoriation. NEUROLOGIC: Limited. HOSPITAL COURSE: The patient was admitted to medical floor. Initially, hemoglobin was 6.7. The patient received 2 units of red blood cell. The patient was referred to Dr. Hidalgo for Gastroenterology and Dr. Reaves for Hematology. The patient was seen by Dr. Russell and the endoscopic procedure needed at this time to continue conservative management. The patient's hemoglobin has remained stable. CONDITION ON DISCHARGE: Fair. PROGNOSIS: Overall prognosis is poor. DISCHARGE INSTRUCTIONS: The patient to continue with current regimen including iron supplements and to monitor hemoglobin and hematocrit. Case was referred to the nursing staff. JOB# [id number]
== END 2018-04-23 11:15 | DRG 241 ==
LOC: ER 23:35 → MSI 04-20 03:45
PROVIDERS: ADMIT Internal Medicine; ATTEND Internal Medicine
PROC: 30233N1 Transfusion of Nonautologous Red Blood Cells into Peripheral Vein, Percutaneous Approach (ICD-10-PCS; principal; 2018-04-20)
DX: K29.71 Gastritis, unspecified, with bleeding (principal); E44.0 Moderate protein-calorie malnutrition; R53.2 Functional quadriplegia; E11.22 Type 2 diabetes mellitus with diabetic chronic kidney disease; I50.9 Heart failure, unspecified; I13.0 Hypertensive heart and chronic kidney disease with heart failure and stage 1 through stage 4 chronic kidney disease, or unspecified chronic kidney disease; R13.10 Dysphagia, unspecified; Z93.1 Gastrostomy status; D64.9 Anemia, unspecified; I25.9 Chronic ischemic heart disease, unspecified; I25.10 Atherosclerotic heart disease of native coronary artery without angina pectoris; E78.5 Hyperlipidemia, unspecified; N18.9 Chronic kidney disease, unspecified; E86.0 Dehydration; J44.9 Chronic obstructive pulmonary disease, unspecified; F03.90 Unspecified dementia, unspecified severity, without behavioral disturbance, psychotic disturbance, mood disturbance, and anxiety; K21.9 Gastro-esophageal reflux disease without esophagitis; E78.00 Pure hypercholesterolemia, unspecified; Z83.3 Family history of diabetes mellitus; Z82.49 Family history of ischemic heart disease and other diseases of the circulatory system; Z79.4 Long term (current) use of insulin; Z68.22 Body mass index [BMI] 22.0-22.9, adult; Z85.038 Personal history of other malignant neoplasm of large intestine
CPT/HCPCS: 36415-UA; 71045-TC; 80053-TC; 81001-TC; 82270-TC; 82550-TC; 82553; 82607-90; 82746-90; 82948-90; 83036-90; 83540-90; 83550-90; 83605; 83735-TC; 84443-TC; 84484-TC; 85007-TC; 85025-TC; 85610-TC; 85730-TC; 86850-TC; 86900-TC; 86901-TC; 86922-TC; 87086-90; 93005; 94760; 96374; C9113; J1631; J1815; P9016; Z7610

== ENCOUNTER 2018-05-15 22:55 | Inpatient (IN) | payer MEDICAID ==
--- NOTE | 2018-05-15 23:30 | ED Physician Chart ---
ED Chief Complaint/HPI - Patient Information Date Seen:: 05/15/18 Time Seen:: 23:25 Chief Complaint:: abn labs History of Present Illness:: 77 yr [place] for [place] hgb no active bleeding pt non verbal severe contractures Allergies:: Allergies Allergy/AdvReac Type Severity Reaction Status Date / Time No Known Allergies Allergy Verified 05/15/18 23:03 Vitals:: Vital Signs - 8 hr 05/15/18 22:55 Temp 98.1 F HR 88 RR 16 BP 152/71 O2 Sat % 98 ED Review of Systems - Review of Systems General/Constitutional: No fever Neck: No neck pain Cardio Vascular: No chest pain Pulmonary: No SOB GI: No vomiting Neurological: No syncope ED Past Medical History - Past Medical History Obtainable: No Past Medical History: Other (dysphagia dm gastritis heart failure dementia encephalopathy) Surgical History: PEG/GTube Family Medical History - Family Member Mother History Unknown: Yes Ethnicity: Unknown Living Status: Unknown Hx Family Cancer: (UNKNOWN) Hx Family Coronary Artery Disease: (UNKNOWN) Hx Family Congestive Heart Failure: (UNKNOWN) Hx Family Hypertension: (UNKNOWN) Hx Family Stroke: (UNKNOWN) Hx Family Diabetes: (UNKNOWN) Hx Family Seizures: (UNKNOWN) Hx Family Dementia: (UNKNOWN) Hx Family AIDS: (UNKNOWN) Hx Family HIV: No Hx Family COPD: (UNKNOWN) Hx Family Hepatitis: (UNKNOWN) Hx Family Psychiatric Problems: (UNKNOWN) Hx Family Tuberculosis: (UNKNOWN) ED Physical Exam - Physical Examination Other Gen/Cons comments:: pt non verbal no acute distress sleeping eyes closed Other Neuro/Psych comments:: severe contractures anish legs ED Septic Shock - . Is Septic Shock (SBP<90, OR Lactate>4 mmol\L) present?: No - <6hrs of presentation: Vital Signs: Vital Signs - 8 hr 05/15/18 22:55 Temp 98.1 F HR 88 RR 16 BP 152/71 O2 Sat % 98 ED Reassessment (Disposition) - Reassessment Reassessment:: same Reassessment Condition:: Unchanged - Diagnosis Diagnosis:: encephalopathy anemia severe - Patient Disposition Discharge/Transfer:: Acute Care w/in this hosp Admitted to:: Med/Surg Condition at Disposition:: Stable
[2018-05-15 23:31] LABS: % BASOPHILS 0.3 % (0.0-2.0); % EOSINOPHILS 1.9 % (0.0-5.0); % LYMPHOCYTES 18.3 % (20.0-50.0); % MONOCYTES 5.8 % (2.0-10.0); % NEUTROPHILS 73.7 % (40.0-80.0); EOSINOPHILE ABSOLUTE 0.2 Th/cmm (0.1-0.4); HEMATOCRIT 25.6 % (41.0-60); HEMOGLOBIN 8.3 gm/dL (12-16); LYMPHOCYTE ABSOLUTE 1.6 Th/cmm (1.5-3.0); MEAN CORPUSCULAR HEMOGLOBIN 27.2 pg (27.0-31.0); MEAN CORPUSCULAR HGB CONC 32.4 pg (28.0-36.0); MEAN PLATELET VOLUME 8.5 fl; MONOCYTE ABSOLUTE 0.5 Th/cmm (0.3-1.0); NEUTROPHILE ABSOLUTE 6.5 Th/cmm (1.8-8.0); PLATELET COUNT 345 Th/cmm (150-400); RED BLOOD COUNT 3.05 Mil/cmm (3.80-5.20); RED CELL DISTRIBUTION WIDTH 15.8 % (11.5-20.0); WHITE BLOOD COUNT 8.8 Th/cmm (4.8-10.8)
[2018-05-15 23:43] LABS: INR 1.09 (0.5-1.4); PROTHROMBIN TIME (TEST) 11.3 SECONDS (9.5-11.5)
[2018-05-16 00:45] LABS: ALB/GLOB RATIO 0.9 (1.0-1.8); ALBUMIN 3.3 gm/dL (3.7-5.3); ALKALINE PHOSPHATASE 87 U/L (34-104); ANION GAP 13.1 (7.0-16.0); BILIRUBIN,TOTAL 0.2 mg/dL (0.3-1.0); CALCIUM SERUM 9.7 mg/dL (8.6-10.3); CARBON DIOXIDE 35.4 mEq/L (21.0-31.0); CHLORIDE 98 mEq/L (98-107); CREATININE - SERUM 1.8 mg/dL (0.6-1.2); GLUCOSE 100 mg/dL (70-105); POTASSIUM SERUM 3.5 mEq/L (3.5-5.1); SGOT 19 U/L (13-39); SGPT/ALT 12 U/L (7-52); SODIUM SERUM 143 mEq/L (136-145); TOTAL PROTEIN,SERUM 6.9 gm/dL (6.0-8.3)
[2018-05-16 01:05] LABS: BUN - UREA NITROGEN 86 mg/dL (7-25)
[2018-05-16] MEDS ORDERED: GLUCAGON HCl 1 MG KIT IM PRN (01:10)
[2018-05-16] MEDS ORDERED: D5-0.45NS 1,000 ML IV SCH (02:00)
[2018-05-16 03:24] VITALS: BP 155/73
[2018-05-16] MEDS: Ferrous Sulfate 300 MG/5 ML UDC GT SCH (08:26)
[2018-05-16] MEDS: Multivitamin w/ Minerals Tab GT SCH (08:32)
[2018-05-16 11:33] LABS: RED CELL DISTRIBUTION WIDTH 15.7 % (11.5-20.0)
[2018-05-16 11:37] LABS: MEAN CELL VOLUME 84.4 fl (81-100); MEAN CORPUSCULAR HEMOGLOBIN 27.3 pg (27.0-31.0); MEAN CORPUSCULAR HGB CONC 32.3 pg (28.0-36.0); MEAN PLATELET VOLUME 8.1 fl; PLATELET COUNT 343 Th/cmm (150-400); RED BLOOD COUNT 2.41 Mil/cmm (3.80-5.20); WHITE BLOOD COUNT 8.7 Th/cmm (4.8-10.8)
[2018-05-16 11:49] LABS: HEMATOCRIT 20.4 % (41.0-60); HEMOGLOBIN 6.6 gm/dL (12-16)
[2018-05-16 12:22] LABS: CALCIUM SERUM 9.4 mg/dL (8.6-10.3); CARBON DIOXIDE 32.4 mEq/L (21.0-31.0); CHLORIDE 99 mEq/L (98-107); GLUCOSE 156 mg/dL (70-105); POTASSIUM SERUM 3.4 mEq/L (3.5-5.1); SODIUM SERUM 143 mEq/L (136-145)
[2018-05-16 12:26] LABS: BAND NEUTROPHILE 2 % (0-10); LYMPHOCYTE 20 % (20-50); NEUTROPHILS 70 % (40-80)
[2018-05-16 12:27] LABS: BASOPHIL 0 % (0-3); EOSINOPHIL 1 % (0-5); HYPOCHROMIA 1+; MONOCYTE 7 % (2-10)
[2018-05-16 12:30] LABS: BUN - UREA NITROGEN 87 mg/dL (7-25)
[2018-05-16] MEDS: D5-0.45NS 1,000 ML IV SCH (17:19)
[2018-05-17 05:06] LABS: % BASOPHILS 0.4 % (0.0-2.0); % EOSINOPHILS 3.7 % (0.0-5.0); % LYMPHOCYTES 17.8 % (20.0-50.0); % MONOCYTES 6.1 % (2.0-10.0); EOSINOPHILE ABSOLUTE 0.4 Th/cmm (0.1-0.4); HEMATOCRIT 27.3 % (41.0-60); HEMOGLOBIN 9.2 gm/dL (12-16); LYMPHOCYTE ABSOLUTE 1.9 Th/cmm (1.5-3.0); MEAN CELL VOLUME 83.4 fl (81-100); MEAN CORPUSCULAR HEMOGLOBIN 28.2 pg (27.0-31.0); MEAN CORPUSCULAR HGB CONC 33.8 pg (28.0-36.0); MEAN PLATELET VOLUME 8.4 fl; MONOCYTE ABSOLUTE 0.7 Th/cmm (0.3-1.0); NEUTROPHILE ABSOLUTE 7.7 Th/cmm (1.8-8.0); PLATELET COUNT 313 Th/cmm (150-400); RED BLOOD COUNT 3.28 Mil/cmm (3.80-5.20); RED CELL DISTRIBUTION WIDTH 14.6 % (11.5-20.0); WHITE BLOOD COUNT 10.7 Th/cmm (4.8-10.8)
[2018-05-17 07:41] LABS: ALBUMIN 3.1 gm/dL (3.7-5.3); ALKALINE PHOSPHATASE 81 U/L (34-104); ANION GAP 12.6 (7.0-16.0); BILIRUBIN,TOTAL 0.3 mg/dL (0.3-1.0); CALCIUM SERUM 9.3 mg/dL (8.6-10.3); CARBON DIOXIDE 32.9 mEq/L (21.0-31.0); CHLORIDE 101 mEq/L (98-107); CREATININE - SERUM 1.9 mg/dL (0.6-1.2); GLUCOSE 126 mg/dL (70-105); POTASSIUM SERUM 3.5 mEq/L (3.5-5.1); SGOT 16 U/L (13-39); SGPT/ALT 11 U/L (7-52); SODIUM SERUM 143 mEq/L (136-145); TOTAL PROTEIN,SERUM 6.3 gm/dL (6.0-8.3)
[2018-05-17 07:56] LABS: BUN - UREA NITROGEN 85 mg/dL (7-25)
[2018-05-17] MEDS: Ferrous Sulfate 300 MG/5 ML UDC GT SCH (08:05)
[2018-05-17] MEDS: Multivitamin w/ Minerals Tab GT SCH (08:07)
[2018-05-17] MEDS: Sodium Ferric Gluconate 125 MG in Sodium Chloride 0.9% 100 ML IV SCH (12:29)
--- NOTE | 2018-05-17 13:58 | Consultation ---
DATE OF CONSULTATION: 05/17/2018 HEMATOLOGY AND ONCOLOGY CONSULTATION REFERRING PHYSICIAN: Dr. Tobias. REASON FOR CONSULTATION: Severe anemia. HISTORY OF PRESENT ILLNESS: The patient is a 77-year-old female who was gastric tube dependent, presented with severe anemia, hemoglobin of 6.6 grams and was transfused. I was asked to evaluate. From Hematology standpoint, there is no reported history of bleeding from any site. PAST MEDICAL HISTORY: Dementia, heart failure, diabetes, and dysphagia. PAST SURGICAL HISTORY: Gastric tube placement. MEDICATIONS: Reviewed. She is on Norvasc, glipizide, glucagon, hydralazine, and Isordil. PHYSICAL EXAMINATION: GENERAL: The patient is awake, not in distress, noncommunicative. VITAL SIGNS: Stable. HEENT: Pale complexion. NECK: No lymphadenopathy. CHEST: Good air entry. ABDOMEN: Soft, gastric tube in place. Decubitus ulcer in the sacrum. No active bleeding. EXTREMITIES: Contractures of both upper and lower extremities. LABORATORY DATA: White count 10.7, hemoglobin 9.2 from admission to 6.6, MCV 83, platelet count 313. Coagulation panel normal. Creatinine 1.9. The patient has been having elevated creatinine from review of the previous records on the computer. Ferritin 150 in February and iron binding capacity 238, iron saturation 9% with normal liver functions, normal B12 and folate levels. ASSESSMENT: Normocytic anemia, most likely of chronic kidney disease. The patient has suboptimal ferritin level and I will start IV iron. Discontinue oral iron also start folic acid supplementation because of the short red cells survival with chronic kidney disease. Check stool occult blood to evaluate for possible blood losses. Urinalysis from previous admission showed no evidence of hematuria. Thank you, Dr. Tobias for the opportunity to participate in the care of this patient. [facility]# [id number]
[2018-05-17] MEDS: D5-0.45NS 1,000 ML IV SCH (16:08)
--- NOTE | 2018-05-17 16:53 | History and Physical ---
History of Present Illness - HPI Chief Complaint: anemia h+p was dictated yesterday 05/17/18 HPI: This is a 77-year old female who is a resident of [facility] labs came back 6.9 patient had a hematology appointment on 05/15/18 and was sent here to [facility] for transfusion Vital Signs: Last Vital Signs Temp 97.3 F 05/17/18 15:43 Pulse 91 05/17/18 15:43 Resp 18 05/17/18 15:43 BP 122/65 05/17/18 15:43 Pulse Ox 93 05/17/18 15:43 Past Medical History Other History: Gastrointestinal bleeding severe anemia dehydration chronic renal insufficiency hypertension diabetes hypercholesterolemia dementia congestive heart failure. - Past Surgical History Past Surgical History: Other (peg) Family Medical History - Family Member Mother History Unknown: Yes Ethnicity: Unknown Living Status: Unknown Hx Family Cancer: (UNKNOWN) Hx Family Coronary Artery Disease: (UNKNOWN) Hx Family Congestive Heart Failure: (UNKNOWN) Hx Family Hypertension: (UNKNOWN) Hx Family Stroke: (UNKNOWN) Hx Family Diabetes: (UNKNOWN) Hx Family Seizures: (UNKNOWN) Hx Family Dementia: (UNKNOWN) Hx Family AIDS: (UNKNOWN) Hx Family HIV: No Hx Family COPD: (UNKNOWN) Hx Family Hepatitis: (UNKNOWN) Hx Family Psychiatric Problems: (UNKNOWN) Hx Family Tuberculosis: (UNKNOWN) Social History Smoke: No Alcohol: None Drugs: None Lives: Senior Living - Medications Home Medications: Home Medication Medication Instructions Recorded Type Acetaminophen [Tylenol] 650 mg GT Q4H PRN tab 03/20/18 Rx Hydralazine [Apresoline*] 20 mg GT TID tab 03/20/18 Rx Multivitamin w/ Minerals 1 tab GT DAILY tab 03/20/18 Rx [Theragran M] amLODIPine Besylate [Norvasc*] 10 mg GT DAILY tab 03/20/18 Rx Ferrous Sulfate [Iron] 330 mg GT DAILY 04/20/18 History Glipizide [Glucotrol] 2.5 mg GT BIDAC 04/20/18 History Amino Acids/Protein Hydrolys 30 ml GT BID 05/15/18 History [Pro-Stat Sugar Free 30 ml] Ascorbic Acid [Vitamin C] 500 mg GT DAILY 05/15/18 History Docusate Sodium [Colace] 100 mg GT BID 05/15/18 History GLUCAGON HCl [Glucagen] 1 mg IM DAILY PRN 05/15/18 History Insulin Aspart, Recombinant See Protocol SUBQ Q6HR 05/15/18 History [NovoLOG] Isosorbide Dinitrate [Isordil] 10 mg GT TID 05/15/18 History - Allergies Allergies/Adverse Reactions: Allergies Allergy/AdvReac Type Severity Reaction Status Date / Time No Known Allergies Allergy Verified 05/15/18 23:03 Review of Systems - Review of Systems Constitutional: Report: No Significant Eyes: Report: No Significant Respiratory: Report: No Significant Cardiovascular: Report: No Significant Neurological: Report: No Significant Physical Exam - Physical Exam HEENT: Report: Ears Nose Throat within normal limits Neck: Report: Within normal limits Cardiovascular Systems: Report: +s1/s2 noted, Regular, Rate and Rhythm Respiratory: Report: Breath Sounds are within normal limits Abdomen: Report: Non-tender to palpation Skin: Report: Color of skin is within normal limits, Warm, Dry Neuro/Psych: Report: Weakness or sensory loss noted. - Lab Results All Lab Results last 24 hours: Laboratory Results - last 24 hr 05/15/18 05/17/18 05/17/18 23:15 04:40 04:40 WBC 10.7 D RBC 3.28 L Hgb 9.2 L Hct 27.3 L D MCV 83.4 MCH 28.2 MCHC Differential 33.8 RDW 14.6 Plt Count 313 MPV 8.4 Neutrophils % 72.0 Lymphocytes % 17.8 L Monocytes % 6.1 Eosinophils % 3.7 Basophils % 0.4 Sodium Potassium Chloride Carbon Dioxide Anion Gap BUN Creatinine Est GFR ( Amer) Est GFR (Non-Af Amer) BUN/Creatinine Ratio Glucose Calcium Total Bilirubin AST ALT Alkaline Phosphatase Ammonia 55 H B-Natriuretic Peptide Total Protein Albumin Globulin Albumin/Globulin Ratio TSH 1.48 Blood Type O POSITIVE Antibody Screen NEGATIVE Crossmatch See Detail 05/17/18 05/17/18 04:40 04:40 WBC RBC Hgb Hct MCV MCH MCHC Differential RDW Plt Count MPV Neutrophils % Lymphocytes % Monocytes % Eosinophils % Basophils % Sodium 143 Potassium 3.5 Chloride 101 Carbon Dioxide 32.9 H Anion Gap 12.6 BUN 85 H* Creatinine 1.9 H Est GFR ( Amer) TNP Est GFR (Non-Af Amer) TNP BUN/Creatinine Ratio 44.7 Glucose 126 H Calcium 9.3 Total Bilirubin 0.3 AST 16 ALT 11 Alkaline Phosphatase 81 Ammonia B-Natriuretic Peptide 127.0 H Total Protein 6.3 Albumin 3.1 L Globulin 3.2 Albumin/Globulin Ratio 1.0 TSH Blood Type Antibody Screen Crossmatch Microbiology 05/16/18 00:00 - Final Nares NO MRSA ISOLATED - Assessment Assessment: severe anemia, dehydration, chronic renal insufficiency, hypertension, diabetes, hypercholesterolemia, dementia, malnutrition, congestive heart failure. - Plan Plan: ivf for hydration monitor h/h closely cont with [id number] follow up labs in am continue current plan of care
[2018-05-18 07:15] LABS: % BASOPHILS 0.4 % (0.0-2.0); % EOSINOPHILS 6.1 % (0.0-5.0); % LYMPHOCYTES 16.3 % (20.0-50.0); % MONOCYTES 5.4 % (2.0-10.0); % NEUTROPHILS 71.8 % (40.0-80.0); EOSINOPHILE ABSOLUTE 0.6 Th/cmm (0.1-0.4); HEMATOCRIT 28.4 % (41.0-60); HEMOGLOBIN 9.4 gm/dL (12-16); LYMPHOCYTE ABSOLUTE 1.6 Th/cmm (1.5-3.0); MEAN CELL VOLUME 83.4 fl (81-100); MEAN CORPUSCULAR HEMOGLOBIN 27.7 pg (27.0-31.0); MEAN CORPUSCULAR HGB CONC 33.2 pg (28.0-36.0); MEAN PLATELET VOLUME 8.6 fl; MONOCYTE ABSOLUTE 0.5 Th/cmm (0.3-1.0); NEUTROPHILE ABSOLUTE 7.1 Th/cmm (1.8-8.0); PLATELET COUNT 317 Th/cmm (150-400); RED CELL DISTRIBUTION WIDTH 14.7 % (11.5-20.0); WHITE BLOOD COUNT 9.8 Th/cmm (4.8-10.8)
[2018-05-18 08:09] LABS: ANION GAP 13.5 (7.0-16.0); BUN - UREA NITROGEN 70 mg/dL (7-25); CALCIUM SERUM 9.3 mg/dL (8.6-10.3); CARBON DIOXIDE 30.7 mEq/L (21.0-31.0); CHLORIDE 100 mEq/L (98-107); CREATININE - SERUM 1.7 mg/dL (0.6-1.2); GLUCOSE 136 mg/dL (70-105); POTASSIUM SERUM 3.2 mEq/L (3.5-5.1); SODIUM SERUM 141 mEq/L (136-145)
[2018-05-18] MEDS: Multivitamin w/ Minerals Tab GT SCH (08:24)
[2018-05-18] MEDS: Ferrous Sulfate 300 MG/5 ML UDC GT SCH (08:24)
[2018-05-18 11:10] LABS: FOLIC ACID >20.0 ng/mL (>3.0)
--- NOTE | 2018-05-18 11:37 | General Progress Note ---
Subjective - Review of Systems Service Date: 05/18/18 Subjective: non communicative Objective - Results Result Diagrams: 05/18/18 06:00 05/18/18 06:00 Recent Labs: Laboratory Last Values WBC 9.8 Th/cmm (4.8-10.8) 05/18/18 06:00 RBC 3.40 Mil/cmm (3.80-5.20) L 05/18/18 06:00 Hgb 9.4 gm/dL (12-16) L 05/18/18 06:00 Hct 28.4 % (41.0-60) L 05/18/18 06:00 MCV 83.4 fl (81-100) 05/18/18 06:00 MCH 27.7 pg (27.0-31.0) 05/18/18 06:00 MCHC Differential 33.2 pg (28.0-36.0) 05/18/18 06:00 RDW 14.7 % (11.5-20.0) 05/18/18 06:00 Plt Count 317 Th/cmm (150-400) 05/18/18 06:00 MPV 8.6 fl 05/18/18 06:00 Add Manual Diff YES 05/16/18 11:30 Neutrophils % 71.8 % (40.0-80.0) 05/18/18 06:00 Band Neutrophils % 2 % (0-10) 05/16/18 11:30 Lymphocytes % 16.3 % (20.0-50.0) L 05/18/18 06:00 Monocytes % 5.4 % (2.0-10.0) 05/18/18 06:00 Eosinophils % 6.1 % (0.0-5.0) H 05/18/18 06:00 Basophils % 0.4 % (0.0-2.0) 05/18/18 06:00 Neutrophils (Manual) 70 % (40-80) 05/16/18 11:30 Lymphocytes 20 % (20-50) 05/16/18 11:30 Monocytes 7 % (2-10) 05/16/18 11:30 Eosinophils 1 % (0-5) 05/16/18 11:30 Basophils 0 % (0-3) 05/16/18 11:30 Hypochromia 1+ 05/16/18 11:30 PT 11.3 SECONDS (9.5-11.5) 05/15/18 23:15 INR 1.09 (0.5-1.4) 05/15/18 23:15 PTT (Actin FS) 21.7 SECONDS (26.0-38.0) L 05/15/18 23:15 Sodium 141 mEq/L (136-145) 05/18/18 06:00 Potassium 3.2 mEq/L (3.5-5.1) L 05/18/18 06:00 Chloride 100 mEq/L (98-107) 05/18/18 06:00 Carbon Dioxide 30.7 mEq/L (21.0-31.0) 05/18/18 06:00 Anion Gap 13.5 (7.0-16.0) 05/18/18 06:00 BUN 70 mg/dL (7-25) H 05/18/18 06:00 Creatinine 1.7 mg/dL (0.6-1.2) H 05/18/18 06:00 Est GFR ( Amer) TNP 05/18/18 06:00 Est GFR (Non-Af Amer) TNP 05/18/18 06:00 BUN/Creatinine Ratio 41.2 05/18/18 06:00 Glucose 136 mg/dL (70-105) H 05/18/18 06:00 POC Glucose 100 MG/DL (70 - 105) 05/16/18 02:34 Whole Bld Lactic Acid 0.66 mmol/L (0.60-1.99) 05/15/18 23:15 Calcium 9.3 mg/dL (8.6-10.3) 05/18/18 06:00 Total Bilirubin 0.3 mg/dL (0.3-1.0) 05/17/18 04:40 AST 16 U/L (13-39) 05/17/18 04:40 ALT 11 U/L (7-52) 05/17/18 04:40 Alkaline Phosphatase 81 U/L (34-104) 05/17/18 04:40 Ammonia 55 umol/L (16-53) H 05/17/18 04:40 B-Natriuretic Peptide 127.0 pg/mL (5.0-100.0) H 05/17/18 04:40 Total Protein 6.3 gm/dL (6.0-8.3) 05/17/18 04:40 Albumin 3.1 gm/dL (3.7-5.3) L 05/17/18 04:40 Globulin 3.2 gm/dL 05/17/18 04:40 Albumin/Globulin Ratio 1.0 (1.0-1.8) 05/17/18 04:40 Vitamin B12 1040 pg/mL (232-1245) 05/17/18 04:40 Folic Acid >20.0 ng/mL (>3.0) 05/17/18 04:40 TSH 1.48 uIU/ml (0.34-5.60) 05/17/18 04:40 Blood Type O POSITIVE 05/15/18 23:15 Antibody Screen NEGATIVE 05/15/18 23:15 Crossmatch See Detail 05/15/18 23:15 - Physical Exam Vitals and I&O: Vital Signs Temp 97.3 F 05/18/18 08:16 Pulse 78 05/18/18 08:25 Resp 17 05/18/18 08:16 BP 175/76 05/18/18 08:25 Pulse Ox 97 05/18/18 08:16 Intake & Output 05/17/18 05/18/18 05/18/18 18:59 06:59 18:59 Intake Total 1000 Balance 1000 Weight (lbs) 55.202 kg Intake: Intake, IV Amount 1000 D5-0.45NS 1,000 ml @ 50 1000 mls/hr IV .Q20H [facility] Rx#: [id number] Other: # Voids 3 # Bowel Movements 1 Weight Source Bedscale Active Medications: Current Medications Acetaminophen (Tylenol) 650 mg GT Q4H PRN PRN Reason: Pain Or Fever above 101 Stop: 07/15/18 01:09 Last Admin: 05/16/18 16:08 Dose: 650 mg Amlodipine Besylate (Norvasc) 10 mg GT DAILY [facility] Stop: 07/15/18 08:59 Last Admin: 05/18/18 08:25 Dose: 10 mg Ascorbic Acid (Vitamin C) 500 mg GT DAILY [facility] Stop: 07/15/18 08:59 Last Admin: 05/18/18 08:25 Dose: 500 mg Folic Acid (Folate) 1 mg PO DAILY [facility] Stop: 07/17/18 08:59 Last Admin: 05/18/18 08:25 Dose: 1 mg Glipizide (Glucotrol) 2.5 mg GT BIDAC [facility] Stop: 07/15/18 07:29 Last Admin: 05/18/18 06:47 Dose: 2.5 mg Glucagon (Glucagen) 1 mg IM DAILY PRN PRN Reason: BS BELOW 60 & NOT TOLERATE PO Stop: 07/15/18 01:09 Hydralazine HCl (Apresoline) 20 mg GT TID [facility] Stop: 07/15/18 08:59 Last Admin: 05/18/18 08:25 Dose: 20 mg Dextrose/Sodium Chloride (D5-0.45ns) 1,000 mls @ 50 mls/hr IV .Q20H [facility] Stop: 07/15/18 13:29 Last Admin: 05/17/18 16:08 Dose: 50 mls/hr Ferric Sodium Gluconate Complex 125 mg/ Sodium Chloride 110 mls @ 100 mls/hr IV Q24HR [facility] Stop: 05/25/18 12:29 Last Admin: 05/17/18 12:29 Dose: 100 mls/hr Isosorbide Dinitrate (Isordil) 10 mg GT TID [facility] Stop: 07/15/18 08:59 Last Admin: 05/18/18 08:24 Dose: 10 mg Pantoprazole Sodium (Protonix) 40 mg IVP BID [facility] Stop: 07/15/18 16:59 Last Admin: 05/18/18 08:24 Dose: 40 mg General: Other (non communicative) HEENT: Atraumatic Neck: Supple Lungs: Clear to auscultation Abdomen: Other (gastric tube) - Procedures Procedures: Procedures Procedure Code Date EGD PLACE GASTROSTOMY TUBE 09629 06/21/17 EXCISION OF ASCENDING COLON, ENDO, DIAGN [id number] 06/21/17 EXCISION OF CECUM, ENDO, DIAGN [id number] 06/21/17 EXCISION OF SIGMOID COLON, ENDO, DIAGN [id number] 06/21/17 EXCISION OF STOMACH, ENDO, DIAGN [id number] 06/21/17 INSERTION OF FEEDING DEVICE INTO STOMACH, [facility] APPROACH [id number] 06/21/17 INSERTION OF INFUSION DEV INTO SUP VENA CAVA, [facility] APPROACH [id number] 06/21/17 INTRODUCTION OF NUTRITIONAL INTO CENTRAL VEIN, [facility] APPROACH [id number] 06/21/17 PARTIAL REMOVAL OF COLON 08998 06/21/17 RESECTION OF RIGHT LARGE INTESTINE, OPEN APPROACH [id number] 06/21/17 RESPIRATORY VENTILATION, LESS THAN 24 CONSECUTIVE HOURS [id number] 06/21/17 TRANSFUSE NONAUT RED BLOOD CELLS IN PERIPH VEIN, PERC [id number] 04/20/18 Assessment/Plan - Assessment Assessment: 05/18: lab noted . hgb better. continue ferrlecit and folic acid. 05/17: Normocytic anemia, most likely of chronic kidney disease. The patient has suboptimal ferritin level and I will start IV iron. Discontinue oral iron also start folic acid supplementation because of the short red cells survival with chronic kidney disease. Check stool occult blood to evaluate for possible blood losses. Urinalysis from previous admission showed no evidence of hematuria. Nutritional Asmnt/Malnutr-PDOC - Dietary Evaluation Malnutrition Findings (Please click <Entered> for more info): Nutritional Asmnt/Malnutrition Start: 05/16/18 15: 12 Text: Status: Complete Freq: Protocol: Document 05/16/18 15:12 [email or web address] (Rec: 05/16/18 15:19 [id number]) Nutritional Asmnt/Malnutrition Patient General Information Nutritional Screening High Risk Diagnosis SEVERE ANEMIA, DEHYDRATION Pertinent Medical Hx/Surgical Hx UNOBTAINABLE Subjective Information PATIENT IS DISORIENTED, NONVERBAL, RESPONSIVE ONLY TO PHYSICAL STIMULI LOWER POSTERIOR COCCYX, REDNESS, PRESSURE AREA RECEIVED DIET CONSULT FOR GTF Current Diet Order/ Nutrition Support GLUCERNA 1.2 @ 80 ML/HR X 20 HRS/DAY Patient / S.O Can't verbalize diet edu Pertinent Medications VIT C, FERROUS SULFATE, GLUCOTROL, GLUCAGEN, PROTONIX Pertinent Labs GLUCOSE 156, ALBUMIN 3.3, HGB/ HCT 6.6/20.4, POTASS 3.4 Nutritional Hx/Data Height 1.6 m Height (Calculated Centimeters) 160.0 Current Weight (lbs) 52.617 kg Weight (Calculated Kilograms) 52.6 Weight (Calculated Grams) 46007.7 [place] Body Weight 115 % [place] Body Weight 101 Body Mass Index (BMI) 20.5 Weight Status Approriate GI Symptoms Difficult in: Chewing Swallowing Food Allergies No Skin Integrity/Comment: LOWER POSTERIOR COCCYX, REDNESS, PRESSURE AREA VICKY SCORE : 11 Estimated Nutritional Goals BEE in Kcals: Using Current wt Calories/Kcals/Kg 0305-4497 Kcals Calculated 30-35 Protein: Using Current wt Protein g/k-74 Protein Calculated 1.2-1.4 Fluid: ml PER MD Nutritional Problem 1. Problem Problem dehydration Etiology altered nutrition related labs Signs/Symptoms: BUN 87, Cr 2 Intervention/Recommendation Comments DIET CONSULT FOR GTF COMPLETED CURRENT DIET ORDER: GLUCERNA 1 .2 @ 80 ML/HR X 20 ML/HR + PRO SOURCE BID THIS IS PROVIDING 2040 KCALS AND 126 GM PRO/DAY, MEETING 110% EST KCAL AND 170% EST PRO NEEDS PER DAY CONSIDER: GLUCERNA 1.2 @ 80 ML /HR, NO PRO STAT NECESSARY. THIS WILL PROVIDE 1920 KCALS AND 96 GM PRO/DAY TO MEET 104% EST KCL AND 130% EST PRO NEEDS/DAY Expected Outcomes/Goals Expected Outcomes/Goals WILL MONITOR TF TOLERANCE, LABS, WEIGHT
[2018-05-18] MEDS ORDERED: Potassium Chloride 20 mEq ER Tab PO ONE (13:01)
[2018-05-18] MEDS: Sodium Ferric Gluconate 125 MG in Sodium Chloride 0.9% 100 ML IV SCH (13:03)
[2018-05-18] MEDS ORDERED: Pantoprazole 40 mg EC Tab PO SCH (17:00)
--- NOTE | 2018-05-18 17:27 | Discharge Summary ---
DATE OF DISCHARGE: 05/18/2018 CHIEF COMPLAINT: Severe anemia, not feeling well. FINAL DIAGNOSES: 1. Severe anemia, status post 2 units of blood transfusion. 2. Iron deficiency anemia. 3. Dehydration. 4. Chronic renal insufficiency. 5. Hypertension. 6. Diabetes. 7. Hypercholesterolemia. 8. Dementia. 9. Congestive heart failure. 10. Functional quadriplegia. BRIEF HISTORY: This is a 77-year-old -[place] female with multiple medical problems. 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 The patient was admitted for further management. PHYSICAL EXAMINATION: VITAL SIGNS: Blood pressure 160/70, respirations 17, pulse 85, temperature 97.5. GENERAL: Elderly female, appears chronically ill. NECK: Supple. No mass. LUNGS: Equal breath sounds, few rhonchi. HEART: Regular rate and rhythm. Systolic ejection murmur. ABDOMEN: Soft, globular. EXTREMITIES: Positive ____ contractures. NEUROLOGIC: Limited. HOSPITAL COURSE: The patient was admitted to the medical floor, continued with IV hydration, given blood transfusion 2 units [address]BC with Dr[address] Reaves, Hematology. The patient was given Ferrlecit. The patient is cleared for discharge. Electrolytes were corrected. The patient was also hydrated and her renal function did improve. CONDITION ON DISCHARGE: Fair. OVERALL PROGNOSIS: Poor. DISCHARGE INSTRUCTIONS: The patient is to continue IV iron in the nursing facility and will do monthly CBC. JOB# [id number]
== END 2018-05-18 16:40 | DRG 663 ==
LOC: ER 22:55 → MSI 05-16 01:08
PROVIDERS: ADMIT Internal Medicine; ATTEND Internal Medicine
PROC: 30233N1 Transfusion of Nonautologous Red Blood Cells into Peripheral Vein, Percutaneous Approach (ICD-10-PCS; principal; 2018-05-16)
DX: D50.9 Iron deficiency anemia, unspecified (principal); G93.40 Encephalopathy, unspecified; E46 Unspecified protein-calorie malnutrition; R53.2 Functional quadriplegia; R13.10 Dysphagia, unspecified; E11.22 Type 2 diabetes mellitus with diabetic chronic kidney disease; I50.9 Heart failure, unspecified; I13.0 Hypertensive heart and chronic kidney disease with heart failure and stage 1 through stage 4 chronic kidney disease, or unspecified chronic kidney disease; F03.90 Unspecified dementia, unspecified severity, without behavioral disturbance, psychotic disturbance, mood disturbance, and anxiety; N18.9 Chronic kidney disease, unspecified; E78.00 Pure hypercholesterolemia, unspecified; E86.0 Dehydration; Z93.1 Gastrostomy status; Z79.4 Long term (current) use of insulin; Z68.21 Body mass index [BMI] 21.0-21.9, adult; Z79.84 Long term (current) use of oral hypoglycemic drugs
CPT/HCPCS: 36415-UA; 80048-TC; 80053-TC; 82140-TC; 82607-90; 82746-90; 82948-90; 83605; 83880-TC; 84443-TC; 85007-TC; 85025-TC; 85610-TC; 86850-TC; 86900-TC; 86901-TC; 86922-TC; C9113; J2916; J7030; J7040; P9016; Z7610